=== PATIENT | female | born 1960 | race Caucasian/White ===

== ENCOUNTER 2020-01-23 12:10 | Emergency (ER) | payer OTHER, SELFPAY ==
[2020-01-23 12:20] VITALS: BP 104/69; PULSE 80; RESP 18; TEMP 36.7; O2SAT 96; BMI 37.5
[2020-01-23 12:51] LABS: Microscopic, Urine URINE MICROSCOPIC (MICROSCOPIC)
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
[2020-01-23 12:57] LABS: Basophils # 0.1 K/mm3 (0-0.2); Basophils % 0.9 % (0.1-2.0); Eosinophils # 0.2 K/mm3 (0.0-0.4); Eosinophils % 2.5 % (0.1-12.0); Hemoglobin 10.3 g/dL (12.2-16.2); Lymphocytes # 1.6 K/mm3 (0.7-4.5); Lymphocytes % 17.5 % (10-50); Mean Corpuscular HGB Conc 32.1 g/dL (31.8-35.4); Mean Corpuscular Hemoglobin 27.3 pg (27.0-31.2); Mean Corpuscular Volume 85.2 fl (81-99); Mean Platelet Volume 8.3 fl (7.4-10.4); Monocytes # 0.3 K/mm3 (0.1-1.0); Monocytes % 3.3 % (1.7-9.3); Neutrophils # 7.1 K/mm3 (1.8-7.8); Neutrophils % 75.9 % (37.0-80.0); Platelet Count 254 K/mm3 (142-424); Red Blood Count 3.76 M/mm3 (4.20-5.40); Red Cell Distribution Width 14.9 % (11.5-17.5); White Blood Count 9.3 K/mm3 (4.8-10.8)
[2020-01-23 12:57] LABS: Appearance,Urine SL CLOUDY (Clear); Blood, Urine Negative (Negative); Color,Urine DK YELLOW (Yellow); Glucose,Urine (UA) Negative (Negative); Ketones,Urine TRACE (Negative); Leukocyte Esterase,Urine TRACE (Negative); Nitrate,Urine Negative (Negative); Protein,Urine TRACE (Negative); Specific Gravity, Urine 1.025 (1.005-1.030)
[2020-01-23 13:00] LABS: Bilirubin,Urine Negative (Negative)
[2020-01-23 13:06] LABS: Chloride 99 mmol/L (98-107)
[2020-01-23 13:07] LABS: Potassium 4.2 mmoL/L (3.5-5.1); Sodium 138 mmol/L (136-145)
[2020-01-23 13:09] LABS: Alanine Aminotransferase 133 U/L (12-78); Aspartate Amino Transferase 111 U/L (14-36); Blood Urea Nitrogen 16 mg/dl (7-17); Creatinine Clearance Estimated 130 mL/min (50-200); Estimated Glomerular Filt Rate 86 ml/min (>60); GFR (African American) 104 ML/MIN (>60)
[2020-01-23 13:10] LABS: Albumin Level 4.2 g/dl (3.5-5.0); Albumin/Globulin Ratio 1.2 (1.1-1.8); Alkaline Phosphatase 163 U/L (38-126); Anion Gap 11.2 mEq/L (5-15); Bilirubin,Total 1.1 mg/dl (0.2-1.3); Calcium 8.9 mg/dl (8.4-10.2); Carbon Dioxide 32 mmol/L (22.0-30.0); Globulin 3.6 g/dL (1.3-3.2); Glucose 196 mg/dl (74-100); Total Protein,Serum 7.8 g/dl (6.3-8.2)
[2020-01-23 13:11] LABS: Lactic Acid 1.3 mmol/L (0.7-2.1)
[2020-01-23 13:22] LABS: WBC,Urine Occasional #/hpf (0-3)
[2020-01-23 13:23] LABS: Bacteria,Urine Trace /lpf; RBC,Urine Occasional #/hpf (0-3); Squamous Epithelial Cell,Urine Occasional #/hpf (0-5)
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
--- NOTE | 2020-01-23 15:56 | PC.NURSE ---
called [facility] for Dr crowell for dr tello
--- NOTE | 2020-01-23 16:00 | PC.NURSE ---
SPOKE WITH DR SIBLEY, WHOM IS [employer] OFFICER FOR DR POWELL, WHOM IS ON FOR SERVICE, CONCERNING POSSIBILITY OF ADMISSION. DR SIBLEY ADVISES THAT PT DOESN'T MEET CRITERIA FOR ADMISSION AT THIS TIME.
[2020-01-23 16:14] VITALS: BP 129/87; PULSE 78; RESP 18; TEMP 36.9; O2SAT 98
== END 2020-01-23 16:18 | disposition home or self-care (01) ==
PROVIDERS: Emergency Provider Family Medicine; PCP Family Medicine
DX: J18.9 Pneumonia, unspecified organism (principal); S36.114D Minor laceration of liver, subsequent encounter; S06.5X9D Traumatic subdural hemorrhage with loss of consciousness of unspecified duration, subsequent encounter; S22.49XG Multiple fractures of ribs, unspecified side, subsequent encounter for fracture with delayed healing; V43.52XD Car driver injured in collision with other type car in traffic accident, subsequent encounter; E10.65 Type 1 diabetes mellitus with hyperglycemia; Z79.84 Long term (current) use of oral hypoglycemic drugs; Z88.2 Allergy status to sulfonamides; Z88.8 Allergy status to other drugs, medicaments and biological substances
CPT/HCPCS: 70450; 71250; 74176; 80053; 81001; 83605; 85025; 87040; 99282; 99284

== ENCOUNTER 2020-02-25 10:25 | Emergency (ER) | payer MEDICARE, MEDICAID, SELFPAY ==
[2020-02-25 10:27] VITALS: BP 138/96; PULSE 70; RESP 18; TEMP 36.7; O2SAT 100; BMI 37.3
[2020-02-25 10:57] LABS: Basophils # 0.2 K/mm3 (0-0.2); Basophils % 2.3 % (0.1-2.0); Eosinophils # 0.2 K/mm3 (0.0-0.4); Hematocrit 41.5 % (37.0-47.0); Hemoglobin 12.8 g/dL (12.2-16.2); Lymphocytes # 1.6 K/mm3 (0.7-4.5); Lymphocytes % 19.5 % (10-50); Mean Corpuscular HGB Conc 30.7 g/dL (31.8-35.4); Mean Corpuscular Hemoglobin 27.6 pg (27.0-31.2); Mean Corpuscular Volume 89.8 fl (81-99); Mean Platelet Volume 8.4 fl (7.4-10.4); Monocytes # 0.4 K/mm3 (0.1-1.0); Monocytes % 5.3 % (1.7-9.3); Neutrophils # 5.9 K/mm3 (1.8-7.8); Neutrophils % 70.9 % (37.0-80.0); Platelet Count 192 K/mm3 (142-424); Red Blood Count 4.62 M/mm3 (4.20-5.40); Red Cell Distribution Width 15.4 % (11.5-17.5); White Blood Count 8.4 K/mm3 (4.8-10.8)
--- NOTE | 2020-02-25 11:02 | CT_ITS ---
PROCEDURE: CT ABDOMEN PELVIS WO CON CLINICAL INDICATION: pain The epigastric pain COMPARISON: CT ABDOMEN PELVIS WO CON from 01/23/2020 CT CHEST WO CON from 02/25/2020 TECHNIQUE: Axial images obtained with sagittal and coronal reformats. All CT scans at the facility use one or more dose reduction, viz: automated exposure control, ma/kV adjustment per patient size (including targeted exams where dose is matched to indication, i.e. head), or iterative reconstruction technique. FINDINGS: LOWER THORAX: There are coronary artery calcifications present ABDOMEN & PELVIS: Prior cholecystectomy. Prior gastric sleeve surgery. Borderline splenomegaly at 14 cm. There is a right adrenal nodule measuring 2.7 cm. This is slightly smaller previously measuring 3.2 cm. This is an indeterminate nodule as the internal density is 27 Hounsfield units greater than what 1 would expect for an adenoma. There are nonobstructing bilateral renal calculi measuring up to 4 mm in the lower pole on the right and 5 mm in the lower pole on the left. There is some mild stranding of the perinephric renal fat on both sides which is nonspecific. No intestinal obstruction or free air. No evidence of appendicitis or diverticulitis. There are post hysterectomy changes. There is some minimal fluid in the pelvis but has markedly decreased in volume compared to the previous exam. Old right 1st through 4th transverse process fractures are noted. There is some exostosis along the right ilium posteriorly. No acute bony anomaly. IMPRESSION: 1. Previously noted right adrenal nodule is slightly smaller and less dense compared to the previous exam and could have been related to an area of adrenal hemorrhage. 2. Nonobstructing bilateral nephrolithiasis. 3. Near complete resolution of the hemoperitoneum. 4. Old right 1st through 4th transverse process fractures of the L-spine Dictated by: Frankie Arriaga MD 02/25/2020 12:25 Electronically signed by Frankie Arriaga MD in [place] 02/25/2020 12:25
[2020-02-25 11:03] LABS: Alanine Aminotransferase 23 U/L (12-78); Albumin Level 4.6 g/dl (3.5-5.0); Albumin/Globulin Ratio 1.2 (1.1-1.8); Alkaline Phosphatase 118 U/L (38-126); Anion Gap 11.2 mEq/L (5-15); Aspartate Amino Transferase 29 U/L (14-36); Bilirubin,Total 0.3 mg/dl (0.2-1.3); Blood Urea Nitrogen 21 mg/dl (7-17); Calcium 9.7 mg/dl (8.4-10.2); Carbon Dioxide 27 mmol/L (22.0-30.0); Chloride 105 mmol/L (98-107); Creatinine Clearance Estimated 151 mL/min (50-200); Estimated Glomerular Filt Rate 103 ml/min (>60); GFR (African American) 125 ML/MIN (>60); Globulin 3.7 g/dL (1.3-3.2); Glucose 127 mg/dl (74-100); Potassium 4.2 mmoL/L (3.5-5.1); Sodium 139 mmol/L (136-145); Total Protein,Serum 8.3 g/dl (6.3-8.2)
--- NOTE | 2020-02-25 11:05 | CT_ITS ---
PROCEDURE: CT CHEST WO CON CLINICAL INDICATION: pain Chest pain COMPARISON: CT CHEST WO CON from 01/23/2020 CT ABDOMEN PELVIS WO CON from 02/25/2020 TECHNIQUE: Axial images obtained with sagittal and coronal reformats. All CT scans at the facility use one or more dose reduction, viz: automated exposure control, ma/kV adjustment per patient size (including targeted exams where dose is matched to indication, i.e. head), or iterative reconstruction technique. FINDINGS: HEART AND MEDIASTINAL STRUCTURES: Scattered small nodes are present in the mediastinum. No mediastinal or hilar mass. Coronary artery calcifications are present. LUNGS AND PLEURAL SPACES: Lungs are clear. Previously noted area of sub of consolidation and right effusion have resolved BONY STRUCTURES: No acute bony abnormalities apparent. UPPER ABDOMEN: Unremarkable. ADDITIONAL FINDINGS: No other significant abnormalities. IMPRESSION: No acute finding Dictated by: Frankie Arriaga MD 02/25/2020 12:16 Electronically signed by Frankie Arriaga MD in [place] 02/25/2020 12:16
[2020-02-25 11:11] LABS: Appearance,Urine CLEAR (Clear); Bilirubin,Urine Negative (Negative); Blood, Urine Negative (Negative); Color,Urine YELLOW (Yellow); Glucose,Urine (UA) Negative (Negative); Ketones,Urine Negative (Negative); Leukocyte Esterase,Urine 1+ (Negative); Microscopic, Urine URINE MICROSCOPIC (MICROSCOPIC); Nitrate,Urine Negative (Negative); Protein,Urine Negative (Negative); Urobilinogen,Urine 0.2 EU/dl (0.2)
--- NOTE | 2020-02-25 11:15 | ECG_ITS ---
APPROVED REPORT Exam: Resting ECG HR:64 bpm ECG Measurements Heart Rate 64 AXES IL 130 P 41 QRSd 76 QRS 2 QT 422 T 27 QTc 435 <Conclusion> Normal sinus rhythm Normal ECG Electronically signed by : Kyle Bay, 02/26/2020 21:40:57
[2020-02-25 11:19] LABS: Troponin I < 0.01 ng/ml (0.00-0.034)
[2020-02-25 11:25] LABS: Bacteria,Urine 1+ /lpf; Hyaline Casts,Urine Occasional #/lpf (0); Mucus,Urine Trace /lpf
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
[2020-02-25 13:29] VITALS: BP 144/85; PULSE 87; RESP 16; TEMP 36.6; O2SAT 98
== END 2020-02-25 14:25 | disposition home or self-care (01) ==
PROVIDERS: Emergency Provider Family Medicine; PCP Family Medicine
DX: N39.0 Urinary tract infection, site not specified (principal)
CPT/HCPCS: 71250; 74176; 80053; 81001; 84484; 85025; 87086; 93005; 96365; 96367; 96375; 99283; J2405

== ENCOUNTER 2020-11-24 20:44 | Emergency (ER) | payer MEDICARE, MEDICAID, SELFPAY ==
--- NOTE | 2020-11-24 20:46 | XR_ITS ---
PROCEDURE: Three nonweightbearing x-ray views left foot and for nonweightbearing views left ankle CLINICAL INDICATION: FALL COMPARISON: None FINDINGS: There is an oblique fracture of the distal fibula. Fracture line extends to the distal tibial-fibular articulation which remains well approximated. Ankle mortise is intact. There is no additional fracture. Small ossicles adjacent to the medial malleolus are well corticated are pre-existing and secondary to either degenerative change, congenital, or old avulsion fractures, however there is significant medial and lateral soft tissue swelling raising concern for coexisting soft tissue injury. And a normal bony ossicle is noted medial to the navicular bone. If a pseudoarticulation is present, this can be a source of pain. IMPRESSION: Oblique distal fibular fracture. Dictated by: Yandy Washington MD 11/25/2020 08:48 Yandy Washington MD in [place] 11/25/2020 08:48
--- NOTE | 2020-11-24 20:48 | XR_ITS ---
PROCEDURE: XR TIBIA FIBULA LT 2V CLINICAL INDICATION: FALL Status post fall on ice, lower left pain COMPARISON: No exams were available for comparison FINDINGS: There is an oblique fracture of the distal fibula. Irregularity over the medial malleolus may represent chronic degenerative change however ankle x-rays are recommended to exclude a coexisting medial malleolar fracture there is a small knee joint effusion which could be chronic.. No obvious ankle mortise or distal tibiofibular joint space disruption. Ankle x-rays could confirm. IMPRESSION: Oblique distal fibular fracture. Medial malleolar irregularity, probably degenerative change, however ankle x-rays could clarify. Dictated by: Yandy Washington MD 11/25/2020 08:39 Yandy Washington MD in [place] 11/25/2020 08:39
[2020-11-24 20:55] VITALS: BP 155/78; PULSE 67; RESP 20; TEMP 36.7; O2SAT 97; BMI 37.1
--- NOTE | 2020-11-24 21:20 | HMH.EDUTC ---
[facility] [place]ression: Closed fracture of right distal fibula Qualifiers: Encounter type: initial encounter Fracture morphology: unspecified fracture morphology Qualified Code(s): S82.831A - Other fracture of upper and lower end of right fibula, initial encounter for closed fracture Disposition: Home, Self-Care Condition on Discharge: Good Instructions: Fibula Shaft Fracture Additional Instructions: Rest the extremity, apply ice for 15 minutes as tolerated three or four times per day, Wear the splint, Elevate the extremity as tolerated while you are resting. Take ibuprofen for pain. I sent in a prescription to your pharmacy. Follow up with Dr. Pride (orthopedics). You need to call his office in the morning to make an appointment. Follow up with your regular doctor. GO TO THE ER FOR ANY WORSENING SYMPTOMS Prescriptions: Ibuprofen [Ibuprofen 800mg Tablet] 800 mg PO Q8HP PRN #30 tab PRN Reason: Moderate Pain Transmission Status: Received by [facility] Referrals: Yecenia Ruiz [Primary Care Provider] - Pedro Luis Pride MD [Staff Physician] - Time of Disposition: 21:57 Medical Decision Making - Medical Records Medical records reviewed: No: I reviewed the patient's medical records. - Kristofer Inquiry Pt receiving controlled substance: No Vital Signs: 11/24/20 20:55 11/24/20 21:52 Temperature 98.1 F 98.1 F Temperature Source Temporal Artery Scan Pulse Rate 67 Pulse Rate [Right Brachial] 67 Respiratory Rate 20 20 Blood Pressure 155/78 H Blood Pressure [Right Arm] 155/78 H Blood Pressure Mean [Right Arm] 103 Blood Pressure Source [Right Arm] Automatic Cuff Blood Pressure Position [Right Arm] Sitting 02 Sat by Pulse Oximetry 97 Oxygen Delivery Method Room Air - Radiology Data #1 Image(s): Tib/Fib Image Reviewed: Yes I reviewed the patient's radiology image, Yes I have reviewed radiologist's interpretation Preliminary Findings: Abnormal PROCEDURE: XR TIBIA FIBULA LT 2V CLINICAL INDICATION: FALL Status post fall on ice, lower left pain COMPARISON: No exams were available for comparison FINDINGS: There is an oblique fracture of the distal fibula. Irregularity over the medial malleolus may represent chronic degenerative change however ankle x-rays are recommended to exclude a coexisting medial malleolar fracture there is a small knee joint effusion which could be chronic.. No obvious ankle mortise or distal tibiofibular joint space disruption. Ankle x-rays could confirm. IMPRESSION: Oblique distal fibular fracture. Medial malleolar irregularity, probably degenerative change, however ankle x-rays could clarify. Dictated by: Yandy Washington MD 11/25/2020 08:39 Yandy Washington MD in [place] 11/25/2020 08:39 #2 Image(s): Ankle Image Reviewed: Yes I reviewed the patient's radiology image, Yes I have reviewed radiologist's interpretation Preliminary Findings: Abnormal PROCEDURE: Three nonweightbearing x-ray views left foot and for nonweightbearing views left ankle CLINICAL INDICATION: FALL COMPARISON: None FINDINGS: There is an oblique fracture of the distal fibula. Fracture line extends to the distal tibial-fibular articulation which remains well approximated. Ankle mortise is intact. There is no additional fracture. Small ossicles adjacent to the medial malleolus are well corticated are pre-existing and secondary to either degenerative change, congenital, or old avulsion fractures, however there is significant medial and lateral soft tissue swelling raising concern for coexisting soft tissue injury. And a normal bony ossicle is noted medial to the navicular bone. If a pseudoarticulation is present, this can be a source of pain. IMPRESSION: Oblique distal fibular fracture. Dictated by: Yandy Washington MD 11/25/2020 08:48 Yandy Washington MD in [place] 11/25/2020 08:48 #3 Image(s): Foot/Toes Image Rev
[2020-11-24 21:52] VITALS: BP 155/78; PULSE 67; RESP 20; TEMP 36.7; O2SAT 97
== END 2020-11-24 22:06 | disposition home or self-care (01) ==
PROVIDERS: Emergency Provider Nurse Practitioner Family; PCP Family Medicine
DX: S82.832A Other fracture of upper and lower end of left fibula, initial encounter for closed fracture (principal); W00.0XXA Fall on same level due to ice and snow, initial encounter; Y92.014 Private driveway to single-family (private) house as the place of occurrence of the external cause; E11.9 Type 2 diabetes mellitus without complications; Z88.5 Allergy status to narcotic agent; Z88.8 Allergy status to other drugs, medicaments and biological substances
CPT/HCPCS: 29515; G0463; 73590; 73610; 73630; 99203

== ENCOUNTER → 2020-12-07 14:44 | Outpatient (CLI) | payer MEDICARE, MEDICAID, SELFPAY ==
--- NOTE | 2020-12-07 14:54 | XR_ITS ---
PROCEDURE: XR ANKLE LT MIN 3V CLINICAL INDICATION: distal fibula fracture follow up Follow-up fracture COMPARISON: CR XR ANKLE LT MIN 3V from 11/24/2020 FINDINGS: Interval cast placement stabilizing the distal fibular fracture which is in good alignment. Hypertrophic changes of the medial malleolus once again noted. IMPRESSION: Good alignment status post cast placement stabilizing distal fibular fracture Dictated by: Frankie Arriaga MD 12/07/2020 15:59 Frankie Arriaga MD in [place] 12/07/2020 15:59
== END ==
PROVIDERS: PCP Family Medicine; Visit Provider Orthopaedic Surgery
DX: S82.832A Other fracture of upper and lower end of left fibula, initial encounter for closed fracture (principal)
CPT/HCPCS: 73610

== ENCOUNTER → 2020-12-15 14:36 | Outpatient (CLI) | payer MEDICARE, MEDICAID, SELFPAY ==
--- NOTE | 2020-12-15 14:39 | XR_ITS ---
PROCEDURE: XR ANKLE LT MIN 3V CLINICAL INDICATION: left ankle fracture; new cast applied COMPARISON: CR XR ANKLE LT MIN 3V from 11/24/2020 CR XR ANKLE LT MIN 3V from 12/07/2020 FINDINGS: There is a nondisplaced oblique fracture of the distal fibula with good alignment of the fracture fragments. The cast is in place. IMPRESSION: Good alignment distal fibular fracture Dictated by: Frankie Arriaga MD 12/15/2020 16:23 Frankie Arriaga MD in [place] 12/15/2020 16:23
== END ==
PROVIDERS: PCP Family Medicine; Visit Provider Orthopaedic Surgery
DX: S82.62XA Displaced fracture of lateral malleolus of left fibula, initial encounter for closed fracture (principal)
CPT/HCPCS: 73610

== ENCOUNTER → 2021-01-04 13:34 | Outpatient (CLI) | payer MEDICARE, MEDICAID, SELFPAY ==
--- NOTE | 2021-01-04 13:57 | XR_ITS ---
PROCEDURE: XR ANKLE LT MIN 3V CLINICAL INDICATION: LT ankle fx/ OUT OF CAST; AFTER REMOVAL COMPARISON: CR XR ANKLE LT MIN 3V from 11/24/2020 CR XR ANKLE LT MIN 3V from 12/07/2020 CR XR ANKLE LT MIN 3V from 12/15/2020 FINDINGS: Oblique fracture of the distal fibula is again noted, demonstrates no significant interval change. Interval removal of the plastic cast is noted. There is minor adjacent callus formation. The ankle mortise is intact and the lateral clear space is preserved. Calcaneal spur and Achilles tendon enthesopathy is noted. No significant soft tissue abnormality. IMPRESSION: Oblique fracture of the distal fibular demonstrates minor adjacent callus formation consistent with healing fracture. Dictated by: Anna Pride 01/04/2021 16:16 Anna Pride in [place] 01/04/2021 16:16
== END ==
PROVIDERS: PCP Family Medicine; Visit Provider Orthopaedic Surgery
DX: S82.62XA Displaced fracture of lateral malleolus of left fibula, initial encounter for closed fracture (principal)
CPT/HCPCS: 73610

== ENCOUNTER 2021-01-04 15:28 | Outpatient (RCR) | payer MEDICARE, MEDICAID, SELFPAY | END 2021-01-04 16:10 | disposition home or self-care (01) | LOC: PT 15:28 | PROVIDERS: Visit Provider Orthopaedic Surgery | DX: S82.62XA Displaced fracture of lateral malleolus of left fibula, initial encounter for closed fracture (principal) | CPT/HCPCS: 97760 ==

== ENCOUNTER → 2021-02-15 14:05 | Outpatient (CLI) | payer MEDICARE, MEDICAID, SELFPAY ==
--- NOTE | 2021-02-15 14:08 | XR_ITS ---
PROCEDURE: XR ANKLE LT MIN 3V CLINICAL INDICATION: lt ankle fracture COMPARISON: CR XR ANKLE LT MIN 3V from 11/24/2020 CR XR ANKLE LT MIN 3V from 12/07/2020 CR XR ANKLE LT MIN 3V from 12/15/2020 CR XR ANKLE LT MIN 3V from 01/04/2021 FINDINGS: Healing oblique distal fibular metadiaphyseal fracture is again noted with adjacent callus formation. The ankle mortise is congruent and the lateral clear space is preserved. Calcaneal spurring is noted at the Achilles tendon insertion and the plantar fascia origin. No significant soft tissue abnormality. IMPRESSION: Healing distal fibular fracture. Dictated by: Anna Pride 02/15/2021 14:45 Anna Pride in [place] 02/15/2021 14:45
== END ==
PROVIDERS: PCP Family Medicine; Visit Provider Orthopaedic Surgery
DX: S82.62XA Displaced fracture of lateral malleolus of left fibula, initial encounter for closed fracture (principal)
CPT/HCPCS: 73610

== ENCOUNTER 2022-11-14 13:23 | Emergency (ER) | payer MEDICARE, MEDICAID, SELFPAY ==
[2022-11-14] VITALS (10 sets, daily range): BP systolic 136–177; BP diastolic 70–106; PULSE 64–76; RESP 14–18; TEMP 36.7–36.8; O2SAT 96–99; BMI 41.1
--- NOTE | 2022-11-14 13:23 | ECG_ITS ---
APPROVED REPORT Exam: Resting ECG HR:68 bpm ECG Measurements Heart Rate 68 AXES SC 106 P 60 QRSd 82 QRS 5 QT 382 T 79 QTc 398 Conclusion SINUS RHYTHM WITH SHORT SC INTERVAL SEPTAL MYOCARDIAL INFARCTION , PROBABLY OLD [40+ ms Q WAVE IN V1/V2] ABNORMAL ECG UNCONFIRMED REPORT Electronically signed by : Kyle Bay MD 11/14/2022 20:17:48
--- NOTE | 2022-11-14 13:42 | XR_ITS ---
FINAL REPORT CLINICAL HISTORY: chest pain FINDINGS: The heart size is normal. The mediastinum is within normal limits. There is no acute cardiopulmonary process. There is no pleural effusion. There is no pneumothorax. The bony thorax is intact. IMPRESSION: No acute cardiopulmonary process. Reviewed, Interpreted and Dictated by Jt Cole MD Transcribed by Bandar Alatorre Authenticated and [facility]
--- NOTE | 2022-11-14 13:43 | CT_ITS ---
FINAL REPORT TECHNIQUE: Axial CT images were performed through the head. Coronal reformatted images were submitted. This study was performed with techniques to keep radiation doses as low as reasonably achievable (ALARA). Individualized dose reduction techniques using automated exposure control or adjustment of mA and/or kV according to the patient's size were employed. CLINICAL HISTORY: left sided weakness. POSS STROKE FINDINGS: There are decreased attenuation foci in the left basal ganglia probably due to old lacunar infarct. The ventricles are normal in size. There is no evidence of hemorrhage. There is no mass or edema identified. There is no abnormal extra-axial fluid seen. There are air-fluid levels in the maxillary sinuses. There is complete opacification of the frontal sinus. There is extensive mucoperiosteal thickening in the ethmoid air cells and sphenoid sinus. IMPRESSION: No acute intracranial process. Chronic lacunar infarcts in the basal ganglia. Acute and chronic pansinusitis. Reviewed, Interpreted and Dictated by Jt Cole MD Transcribed by Bandar Alatorre Authenticated and [facility]
--- NOTE | 2022-11-14 13:44 | PC.NURSE ---
Marielos B, RN spoke with Jenny in radiology regarding stroke protocol
--- NOTE | 2022-11-14 13:46 | PC.NURSE ---
pt to ct for stroke protocol
[2022-11-14 13:58] LABS: Chloride 105 mmol/L (98-107); Sodium 142 mmol/L (136-145)
[2022-11-14 13:59] LABS: Potassium 4.6 mmoL/L (3.5-5.1)
--- NOTE | 2022-11-14 13:59 | PC.NURSE ---
pt returned from radiology
[2022-11-14 14:02] LABS: Anion Gap 11.6 mEq/L (5-15); Blood Urea Nitrogen 18 mg/dl (7-17); Calcium 8.6 mg/dl (8.4-10.2); Carbon Dioxide 30 mmol/L (22.0-30.0); Creatinine Clearance Estimated 88 mL/min (50-200); Estimated Glomerular Filt Rate 51 ml/min (>60); GFR (African American) 61 ML/MIN (>60); Glucose 130 mg/dl (74-100)
[2022-11-14 14:11] LABS: Basophils # 0.1 K/mm3 (0-0.2); Basophils % 1.2 % (0.1-2.0); Eosinophils # 0.1 K/mm3 (0.0-0.4); Hematocrit 46.1 % (37.0-47.0); Hemoglobin 14.4 g/dL (12.2-16.2); Lymphocytes # 3.1 K/mm3 (0.7-4.5); Lymphocytes % 38.7 % (10-50); Mean Corpuscular HGB Conc 31.2 g/dL (31.8-35.4); Mean Corpuscular Hemoglobin 28.2 pg (27.0-31.2); Mean Corpuscular Volume 90.2 fl (81-99); Mean Platelet Volume 8.6 fl (7.4-10.4); Monocytes # 0.3 K/mm3 (0.1-1.0); Monocytes % 4.3 % (1.7-9.3); Neutrophils # 4.3 K/mm3 (1.8-7.8); Neutrophils % 54.9 % (37.0-80.0); Platelet Count 255 K/mm3 (142-424); Red Blood Count 5.11 M/mm3 (4.20-5.40); Red Cell Distribution Width 15.1 % (11.5-17.5); White Blood Count 7.9 K/mm3 (4.8-10.8)
--- NOTE | 2022-11-14 14:34 | PC.NURSE ---
pt ambulatory to restroom with assistance from daughter, no complications
[2022-11-14 14:42] LABS: Microscopic, Urine URINE MICROSCOPIC (MICROSCOPIC)
[2022-11-14 14:43] LABS: Troponin I < 0.01 ng/ml (0.00-0.034)
[2022-11-14 14:53] LABS: Appearance,Urine CLEAR (Clear); Bilirubin,Urine Negative (Negative); Blood, Urine Negative (Negative); Color,Urine YELLOW (Yellow); Glucose,Urine (UA) Negative (Negative); Ketones,Urine Negative (Negative); Leukocyte Esterase,Urine Negative (Negative); Nitrate,Urine Negative (Negative); Protein,Urine Negative (Negative); Specific Gravity, Urine 1.015 (1.005-1.030); Urobilinogen,Urine 0.2 EU/dl (0.2)
[2022-11-14 15:16] LABS: Squamous Epithelial Cell,Urine Occasional #/hpf (0-5); WBC,Urine Occasional #/hpf (0-3)
--- NOTE | 2022-11-14 16:04 | HMH.EDGENADL ---
Discharge Plan Disposition Patient Disposition: Home, Self-Care Condition: Good Prescriptions Prescriptions: New Paxlovid (EUA) 300 mg (150 mg x 2)-100 mg tablets,dose pack See Rx Instructions .Route .COMPLEX Qty: 30 0RF Rx Instructions: take TWO 150 mg tablets of nirmatrelvir with ONE 100 mg tablet of ritonavir twice daily for 5 days No Action aspirin 81 mg tablet,delayed release (DR/EC) 81 mg PO DAILY naproxen sodium [Aleve] 220 mg capsule 220 mg PO BID PRN citalopram 20 mg tablet 20 mg PO DAILY meloxicam 15 mg tablet 15 mg PO DAILY esomeprazole magnesium [Nexium] 40 mg capsule,delayed release(DR/EC) 40 mg PO DAILY epinephrine [EpiPen] 0.3 mg/0.3 mL auto-injector 0.3 mg IM Q5-15M PRN Rx Instructions: do not exceed 3 doses per episode albuterol sulfate [ProAir HFA] 90 mcg/actuation HFA aerosol inhaler 1 inh INHALATION QID montelukast 10 mg tablet 10 mg PO DAILY losartan 50 mg tablet 50 mg PO DAILY isosorbide mononitrate 30 mg tablet extended release 24 hr 30 mg PO DAILY ibuprofen 800 MG tablet 800 mg PO Q8HP PRN (Reason: Moderate Pain) Qty: 30 0RF Referrals Follow up/Referrals: Provider,Referral, [Primary Care Provider] - See instructions Activity Restrictions/Add. Instructions Additional Instructions/Restrictions: Paxlovid as prescribed for COVID. Take aspirin 81 mg daily. Follow-up with your batter depositor, Dr. Hilton. Call his office tomorrow and inform them that you have tested positive for COVID. You may need to reschedule your appointment. Follow-up with your primary care provider, call for appointment. Additional instructions for CHEST PAIN: See your physician as soon as possible for further evaluation. Return immediately if worsening chest pain, vomiting, shortness of breath, fever, coughing of blood. Return emergency department if symptoms worsen. Clinical Impressions Clinical Impression: Left sided numbness, Atypical chest pain, COVID-19 virus infection, Sinusitis Instructions Patient Instructions: DI for Sinusitis, DI for Atypical Chest Pain, DI for COVID-19 (Suspected or Confirmed ) Discharge ED Provider: [facility] HPI General Chief complaint: Chest Pain Stated complaint: CP Time Seen by Provider: 11/14/22 16:30 Mode of Arrival: Ambulatory Source of Information: Patient, Relative and Medical Record Limitations: No Limitations Description of Symptoms (Recalled from ER Triage Doc. by RN): c/o back pain that goes to her chest when she takes a deep breath. STates she has some left sided face drawing with left arm numbness and left leg weakness, symptoms started 2 hours prior to arrival with delayed speech but that has improved now per the daughter. Daughter states that she was seen at [place] [facility] yesterday for these same symptoms and a CT head, blood work and other test were completed, test were negative and pt symptoms improved before dc and they were told to fu with her batter depositor. Yesterday pt was unable to walk into the ER but is able to today. History of Present Illness HPI narrative: Patient states that her chest has been hurting in the back for 2 weeks. She says her blood pressure has been going high and when it does so she gets episodes of numbness of her left arm and leg with tremor. Symptoms last up to about an hour. She says that she went to the emergency department in [place] yesterday because of that. She had a work-up including a CT scan of her head and a cardiac work-up. She says everything came back negative. She says the symptoms persist today and her blood pressure was markedly elevated today, so she called her batter depositor, Dr. Hilton, and he advised her to go to the emergency department, so her daughter brought her here today. She says she also saw her sugar doctor today as well. Patient says that she is on aspirin daily, but has not taken it today. She say
--- NOTE | 2022-11-14 16:10 | PC.NURSE ---
rounded on pt, no needs at this time
--- NOTE | 2022-11-14 16:26 | PC.NURSE ---
HIRO MONREAL at for pt luisitoal
--- NOTE | 2022-11-14 16:33 | CT_ITS ---
PROCEDURE INFORMATION: Exam: CTA Head With Contrast, Arteriography Exam date and time: 11/14/2022 5:00 PM Age: 62 years old Clinical indication: Stroke-like symptoms; Other: Left sided numbness numbness/paresthesia; Additional info: Intermittent L side numbness TECHNIQUE: Imaging protocol: Computed tomographic angiography of the head with contrast. Exam focused on the arteries. 3D rendering (Not supervised by radiologist): MIP and/or 3D reconstructed images were created by the technologist. Radiation optimization: All CT scans at this facility use at least one of these dose optimization techniques: automated exposure control; mA and/or kV adjustment per patient size (includes targeted exams where dose is matched to clinical indication); or iterative reconstruction. Contrast material: ISOVUE 370; Contrast volume: 100 ml; Contrast route: INTRAVENOUS (IV); Other protocol: This patient has received 2 known CTs and 0 known cardiac nuclear medicine studies in the 12 months prior to the current study. COMPARISON: CT HEAD/BRAIN WO CON 11/14/2022 1:52 PM FINDINGS: ANTERIOR CIRCULATION: Right internal carotid artery: Intracranial segment is patent with no significant stenosis. No aneurysm. Mild atherosclerosis of the right internal carotid artery. Right middle cerebral artery: No occlusion or significant stenosis. No aneurysm. Right anterior cerebral artery: No occlusion or significant stenosis. No aneurysm. Left internal carotid artery: Atherosclerosis of the left internal carotid artery, with mild stenosis. No visualized aneurysm. Left middle cerebral artery: Stenosis is suggested of an M3 segment of the left middle cerebral artery anteriorly. This can be contributed by artifact. No occlusion. No visualized aneurysm. Left anterior cerebral artery: No occlusion or significant stenosis. No aneurysm. POSTERIOR CIRCULATION: Right vertebral artery: The right vertebral artery is asymmetrically smaller in caliber/hypoplastic, without intracranial occlusion. Left vertebral artery: A dominant left vertebral artery is identified. No significant stenosis or occlusion of the left vertebral artery. Basilar artery: No occlusion or significant stenosis. No aneurysm. Right posterior cerebral artery: Mild stenosis of a P2 segment of the right BREASTER distally. No visualized aneurysm. Left posterior cerebral artery: No occlusion or significant stenosis. No aneurysm. Brain: A nonacute lacunar infarct is seen within the left basal ganglia. Refer to the head CT report from the same day. Cerebral ventricles: Mild ventriculomegaly. Paranasal sinuses: Paranasal sinus disease is visualized. Air-fluid levels are identified within the bilateral maxillary and sphenoid sinuses, with mucosal thickening. Effusions within ethmoid air cells and frontal sinuses bilaterally. Bones/joints: No acute fracture. Soft tissues: Unremarkable. IMPRESSION: 1. No large vessel arterial occlusion on this CTA head. 2. A dominant left vertebral artery is identified. 3. Mild stenosis of a P2 segment of the right BREASTER distally. 4. Atherosclerosis of the left internal carotid artery, with mild stenosis. 5. Mild ventriculomegaly. 6. Paranasal sinus disease. 7. Additional findings described above.
--- NOTE | 2022-11-14 16:33 | CT_ITS ---
PROCEDURE INFORMATION: Exam: CTA Neck With Contrast Exam date and time: 11/14/2022 5:00 PM Age: 62 years old Clinical indication: Stroke-like symptoms; Other: Left sided numbness numbness/paresthesia; Additional info: Intermittent L side numbness TECHNIQUE: Imaging protocol: Computed tomographic angiography of the neck with contrast. 3D rendering (Not supervised by radiologist): MIP and/or 3D reconstructed images were created by the technologist. Radiation optimization: All CT scans at this facility use at least one of these dose optimization techniques: automated exposure control; mA and/or kV adjustment per patient size (includes targeted exams where dose is matched to clinical indication); or iterative reconstruction. Contrast material: ISOVUE 370; Contrast volume: 100 ml; Contrast route: INTRAVENOUS (IV); Other protocol: This patient has received 2 known CTs and 0 known cardiac nuclear medicine studies in the 12 months prior to the current study. COMPARISON: CT HEAD/BRAIN WO CON 11/14/2022 1:52 PM FINDINGS: Right common carotid artery: No significant stenosis. No dissection or occlusion. Right internal carotid artery: Mild atherosclerosis of the proximal right internal carotid artery, without stenosis using NASCET criteria. Increased tortuosity of the vessel. Right external carotid artery: Mild stenosis of the proximal right external carotid artery. Left common carotid artery: Artifact limits evaluation of the proximal left common carotid artery, without occlusion. No significant stenosis or occlusion of the remaining left common carotid artery. Mild atherosclerosis of the distal left common carotid artery. Left internal carotid artery: Less than 50% stenoses of the proximal left internal carotid artery. Atherosclerosis. Increased tortuosity of the left internal carotid artery. Left external carotid artery: No occlusion or significant stenosis. Right vertebral artery: The V1 and proximal V2 segments of the right vertebral artery are small in caliber, without occlusion. There is an accessory right vertebral artery, which is anterior to the lower cervical spine and is patent. These vessels fuse at the level of the V2 segment. No significant stenosis or occlusion of the right vertebral artery more distally. Left vertebral artery: Venous enhancement and artifact limit evaluation of V1 segment left vertebral artery, without occlusion. No significant stenosis or occlusion of the remaining left vertebral artery. A dominant left vertebral artery is identified. Right subclavian artery: The right subclavian artery is patent, as visualized. Left subclavian artery: Venous enhancement and artifact limit evaluation of the left subclavian artery. Aorta: Fluid is seen in the superior aortic recess. Veins: Foci of intravenous gas are visualized, which are likely iatrogenic. Paranasal sinuses: Paranasal sinus disease visualized. Refer to the CTA head for further discussion. Lymph nodes: A small intraparotid lymph node is seen on the left side. Soft tissues: No significant soft tissue swelling. Bones/joints: Straightening of the lordotic curvature of the cervical spine. Degenerative changes are identified involving the cervical spine. Artifact limits evaluation of the cervical spinal canal. Varying degrees of neural foraminal narrowing are identified at multiple cervical levels. Lungs: Mild patchy nonspecific ground-glass density within the lungs bilaterally. Interstitial edema and atypical pneumonia are within the differential. IMPRESSION: 1. Mild stenosis of the proximal right external carotid artery. 2. Less than 50% stenoses of the
--- NOTE | 2022-11-14 16:52 | PC.NURSE ---
pt to radiology via stretcher
[2022-11-14 17:15] LABS: Troponin I < 0.01 ng/ml (0.00-0.034)
--- NOTE | 2022-11-14 17:55 | PC.NURSE ---
HIRO MONREAL speaking with [facility]
[2022-11-14 18:46] LABS: Influenza A, PCR Not Detected (NotDetected); Influenza B, PCR Not Detected (NotDetected)
[2022-11-14 19:17] LABS: POC Glucose,Bedside 101 (70-110)
[2022-11-14 19:28] LABS: Coronavirus 19, PCR Detected (NotDetected)
--- NOTE | 2022-11-14 19:38 | CT_ITS ---
PROCEDURE INFORMATION: Exam: CTA Chest With Contrast Exam date and time: 11/14/2022 7:58 PM Age: 62 years old Clinical indication: Pain; Other: Pleuritic; Additional info: Pleuritic pain, + covid, R/O pe TECHNIQUE: Imaging protocol: Computed tomographic angiography of the chest with contrast. 3D rendering (Not supervised by radiologist): MIP and/or 3D reconstructed images were created by the technologist. Radiation optimization: All CT scans at this facility use at least one of these dose optimization techniques: automated exposure control; mA and/or kV adjustment per patient size (includes targeted exams where dose is matched to clinical indication); or iterative reconstruction. Contrast material: ISOVUE 370; Contrast volume: 70 ml; Contrast route: INTRAVENOUS (IV); Other protocol: This patient has received 3 known CTs and 0 known cardiac nuclear medicine studies in the 12 months prior to the current study. COMPARISON: 1. CT CHEST WO CON 02/25/2020 11:[address] ABDOMEN PELVIS WO CON 02/25/2020 11:35 AM FINDINGS: Pulmonary arteries: The main pulmonary trunk, right/left main pulmonary arteries, and the proximal lobar branches demonstrate no definite intraluminal filling defect to suggest pulmonary embolism. Aorta: Small amount of fluid in the superior aortic recess. Evaluation of the thoracic aorta is limited by poor enhancement. Mild atherosclerosis of the aortic arch. A nondilated thoracic aorta is visualized. Celiac trunk and mesenteric arteries: Atherosclerosis of the splenic artery is visualized. Lungs: Mild patchy areas of ground-glass density are identified within the lungs bilaterally. Atypical pneumonia cannot be excluded. Interstitial edema is within the differential. A small consolidation is identified at the medial right lung base. Atelectatic change and pneumonia are within the differential. Additional atelectatic changes are visualized at the lung bases and within the lingula. Within the left midlung zone, there is a 4 mm nodule. Pleural spaces: No pneumothorax. No pleural effusion. Heart: Small pericardial effusion. No significant cardiomegaly. Coronary arteries: Coronary artery calcification is visualized. Lymph nodes: Scattered nonspecific cervical mediastinal lymph nodes are identified. A precarinal lymph node measures 1.2 x 0.8 cm. Calcifications are seen within the right hilum, suggestive of calcified lymph nodes from granulomatous disease. Additional calcified lymph node is noted in the subcarinal region. Gallbladder and bile ducts: Surgical clips are identified within the gallbladder fossa, compatible with cholecystectomy. Spleen: A calcification is visualized within the medial aspect of the spleen, which is stable. Adrenal glands: A 1.3 x 0.7 cm indeterminate right adrenal nodule is identified, with a density of 34.5 HU. This has decreased in size compared to the previous abdomen CT. Stomach and bowel: Postoperative changes are identified involving the stomach. Bones/joints: Degenerative changes are visualized involving the thoracic spine. Soft tissues: Unremarkable. IMPRESSION: 1. No acute pulmonary embolism. 2. Mild patchy areas of ground-glass density are identified within the lungs bilaterally. Atypical pneumonia cannot be excluded. Interstitial edema is within the differential. Clinical correlation recommended. 3. A small consolidation is identified at the medial right lung base. Atelectatic change and pneumonia are within the differential. Additional atelectatic changes are visualized at the lung bases and within the lingula. Clinical correlation and follow-up chest CT are recommended. 4. Within the left midlun
--- NOTE | 2022-11-14 20:03 | PC.NURSE ---
patient is back in room from CT @ this time.
[2022-11-14 20:30] LABS: Troponin I < 0.01 ng/ml (0.00-0.034)
== END 2022-11-14 21:36 | disposition home or self-care (01) ==
PROVIDERS: Emergency Provider Emergency Medicine
DX: U07.1 COVID-19 (principal); R07.89 Other chest pain; R20.2 Paresthesia of skin; J01.90 Acute sinusitis, unspecified; Z20.822 Contact with and (suspected) exposure to COVID-19
CPT/HCPCS: 70450; 70496; 70498; 71045; 71275; 80048; 81001; 82962; 84484; 85025; 93005; 96360; 99285; C9803; Q9967; U0003; U0005

== ENCOUNTER → 2022-12-27 14:52 | Outpatient (CLI) | payer MEDICARE, MEDICAID, SELFPAY ==
--- NOTE | 2022-12-27 14:56 | US_ITS ---
FINAL REPORT TECHNIQUE: Ultrasound images of the neck soft tissues was obtained. CLINICAL HISTORY: PAROTID GLAND ENLARGEMENT COMPARISON: CT performed 11/14/2022 FINDINGS: There are multiple cervical lymph nodes all with preserved fatty hilum. No dominant mass is seen. No abnormal fluid collection is seen. Parotid glands appear unremarkable. IMPRESSION: Multiple cervical lymph nodes with preserved fatty hilum. No dominant mass. Reviewed, Interpreted and Dictated by Jt Cole MD Transcribed by Herminia Draper Authenticated and [facility]
== END ==
PROVIDERS: PCP Nurse Practitioner Family; Visit Provider Nurse Practitioner Family
DX: K11.1 Hypertrophy of salivary gland (principal)
CPT/HCPCS: 76536

== ENCOUNTER → 2023-01-29 15:43 | Outpatient (CLI) | payer MEDICARE, MEDICAID, SELFPAY ==
--- NOTE | 2023-01-29 16:33 | XR_ITS ---
PROCEDURE INFORMATION: Exam: XR Left Ankle Exam date and time: 01/29/2023 4:46 PM Age: 62 years old Clinical indication: Pain; Ankle; Left; Additional info: Swelling and pain TECHNIQUE: Imaging protocol: Radiologic exam of the left ankle. Views: 3 or more views. COMPARISON: CR XR ANKLE LT MIN 3V 02/15/2021 2:16 PM FINDINGS: Bones/joints: Compared with 02/15/2021, there has been interval healing and bony remodeling of a distal left fibular metaphyseal fracture. There are also some chronic ovoid ossicles abutting the tip of the medial malleolus which could be old avulsion injuries or degenerative deltoid ligament calcifications. No new, acute fracture or dislocation in the interval. Arthritis at the ankle with small periarticular spurs. Ankle joint effusion. Large plantar calcaneal spur, small Achilles spur. There are no lytic skeletal lesions seen. Soft tissues: In addition to periarticular calcifications noted above, there is soft tissue swelling greatest at the medial ankle. There are Achilles tendon calcifications and there are posterior plantar fascial calcifications. No soft tissue emphysema. IMPRESSION: 1. Old healed distal left fibular metaphyseal fracture. 2. Chronic ovoid ossicles abutting the tip of the medial malleolus consistent with old avulsion injuries or degenerative deltoid ligament calcifications. 3. No acute fracture or dislocation, compared with 02/15/2021. 4. Ankle arthritis, ankle joint effusion. 5. Medial soft tissue swelling, correlate for sprain or contusion. 6. Plantar and Achilles calcaneal spurs with adjacent soft tissue calcifications, correlate for history of plantar fasciitis and calcific Achilles tendinopathy.
[2023-01-29 17:37] LABS: Basophils % 0.4 % (0.1-2.0); Eosinophils # 0.1 K/mm3 (0.0-0.4); Eosinophils % 1.2 % (0.1-12.0); Hematocrit 41.3 % (37.0-47.0); Hemoglobin 13.9 g/dL (12.2-16.2); Lymphocytes # 2.2 K/mm3 (0.7-4.5); Mean Corpuscular HGB Conc 33.6 g/dL (31.8-35.4); Mean Corpuscular Hemoglobin 30.1 pg (27.0-31.2); Mean Corpuscular Volume 89.6 fl (81-99); Mean Platelet Volume 8.4 fl (7.4-10.4); Monocytes # 0.5 K/mm3 (0.1-1.0); Monocytes % 5.6 % (1.7-9.3); Neutrophils # 5.3 K/mm3 (1.8-7.8); Neutrophils % 65.8 % (37.0-80.0); Platelet Count 209 K/mm3 (142-424); Red Blood Count 4.62 M/mm3 (4.20-5.40); Red Cell Distribution Width 13.5 % (11.5-17.5)
[2023-01-29 18:01] LABS: Erythrocyte Sedimentation Rate 22 mm/hr (0-30)
[2023-01-29 19:05] LABS: Uric Acid 5.6 mg/dl (2.5-6.2)
[2023-01-29 19:11] LABS: C-Reactive Protein 13.1 mg/L (0-4)
[2023-01-31 12:16] LABS: RA Latex Turbid. <10.0 IU/mL (<14.0)
[2023-02-01 14:12] LABS: Antinuclear Antibodies, IFA Negative (.)
== END ==
PROVIDERS: PCP Nurse Practitioner Family; Visit Provider Nurse Practitioner Family
DX: M25.572 Pain in left ankle and joints of left foot (principal); M25.472 Effusion, left ankle
CPT/HCPCS: 36415; 73610; 84550; 85025; 85651; 86038; 86140; 86431

== ENCOUNTER → 2023-02-06 09:22 | Outpatient (CLI) | payer MEDICARE, MEDICAID, SELFPAY ==
[2023-02-06 10:45] LABS: Chloride 99 mmol/L (98-107); Potassium 4.2 mmoL/L (3.5-5.1); Sodium 139 mmol/L (136-145)
[2023-02-06 10:47] LABS: Blood Urea Nitrogen 15 mg/dl (7-17); Estimated Glomerular Filt Rate 85 ml/min (>60); GFR (African American) 103 ML/MIN (>60)
[2023-02-06 10:48] LABS: Alanine Aminotransferase 24 U/L (12-78); Alkaline Phosphatase 91 U/L (38-126); Anion Gap 18.2 mEq/L (5-15); Aspartate Amino Transferase 26 U/L (14-36); Bilirubin,Total 0.5 mg/dl (0.2-1.3); Carbon Dioxide 26 mmol/L (22.0-30.0); Glucose 170 mg/dl (74-100); Total Protein,Serum 6.7 g/dl (6.3-8.2)
[2023-02-06 10:55] LABS: Albumin/Globulin Ratio 1.4 (1.1-1.8); Globulin 2.8 g/dL (1.3-3.2)
[2023-02-06 10:56] LABS: Albumin Level 3.9 g/dl (3.5-5.0)
[2023-02-06 11:04] LABS: Free T4 (Free Thyroxine) 2.03 ng/dl (0.78-2.19)
[2023-02-06 11:19] LABS: Thyroid Stimulating Hormone < 0.02 uIU/mL (0.465-4.68)
[2023-02-07 13:51] LABS: Triiodothyronine (T3) Free 3.1 pg/mL (2.0-4.4)
== END ==
PROVIDERS: Hospitalist; PCP Nurse Practitioner Family; Visit Provider Nurse Practitioner Family
DX: E89.0 Postprocedural hypothyroidism (principal)
CPT/HCPCS: 36415; 80053; 84439; 84443; 84481

== ENCOUNTER → 2023-02-08 08:34 | Outpatient (CLI) | payer MEDICARE, MEDICAID, SELFPAY ==
--- NOTE | 2023-02-08 08:40 | MR_ITS ---
FINAL REPORT CLINICAL HISTORY: ACUTE LEFT ANKLE PAIN. MEDIAL SIDED ANKLE SWELLING AND PAIN. POSTERIOR ANKLE PAIN. NO INJURY OR TRAUMA COMPARISON: None FINDINGS: Multiplanar MR imaging of the left ankle was performed with and without contrast. The bony structures are intact without evidence of fracture, bone bruise. No osteochondral lesion is identified. The ligaments are intact without evidence of injury. The Achilles tendon appears intact. There is unusual buckling of the posterior tibial tendon. The buckling is evident at the musculotendinous junction well seen on sagittal image 8 of series 6. There is some surrounding tendinitis. The tendon may be disrupted distally and proximally retracted. Distal tendon is not well visualized. The remaining supporting tendons appear intact. There is thickening of the posterior plantar fascia. There is a large plantar calcaneal spur. No marrow edema at the base of the calcaneus. No significant joint effusion is seen. There is no evidence of soft tissue mass or cyst. IMPRESSION: Distal disruption of the posterior tibial tendon with proximal retraction or redundancy. Reviewed, Interpreted and Dictated by Jt Cole MD Transcribed by Linda Simmons Authenticated and [facility]
== END ==
PROVIDERS: PCP Nurse Practitioner Family; Visit Provider Nurse Practitioner Family
DX: M25.572 Pain in left ankle and joints of left foot (principal)
CPT/HCPCS: 73723; A9576

== ENCOUNTER 2023-02-13 15:55 | Outpatient (RCR) | payer MEDICARE, MEDICAID, SELFPAY | END 2023-02-13 16:34 | disposition home or self-care (01) | LOC: PT 15:55 | PROVIDERS: Visit Provider Nurse Practitioner Family | DX: M76.822 Posterior tibial tendinitis, left leg (principal) | CPT/HCPCS: 97760 ==

== ENCOUNTER → 2023-03-06 16:17 | Outpatient (CLI) | payer MEDICARE, MEDICAID, SELFPAY ==
--- NOTE | 2023-03-06 16:48 | XR_ITS ---
PROCEDURE INFORMATION: Exam: XR Left Foot Complete; Alignment Exam date and time: 03/06/2023 4:51 PM Age: 62 years old Clinical indication: Pain; Foot; Left; Additional info: Foot pain TECHNIQUE: Imaging protocol: Radiologic exam of the left foot. Views: 3 or more views. COMPARISON: CR XR ANKLE LT MIN 3V 01/29/2023 4:46 PM FINDINGS: Bones/joints: No acute fracture or dislocation. Mild osteoarthritic changes at the 1st metatarsal-phalangeal joint. Spurring along the plantar calcaneus. Talus 1st metatarsal angle is normal at 0. Calcaneal inclination angle measures 16 degrees. Soft tissues: Normal. IMPRESSION: Mild flatfoot deformity.
--- NOTE | 2023-03-06 16:48 | XR_ITS ---
PROCEDURE INFORMATION: Exam: XR Right Calcaneus Exam date and time: 03/06/2023 4:51 PM Age: 62 years old Clinical indication: Edema; No, it is generalized TECHNIQUE: Imaging protocol: Radiologic exam of the right calcaneus. Views: 2 or more views. COMPARISON: No relevant prior studies available. FINDINGS: Bones/joints: Surgical screw via posterior plantar approach towards the talus. No acute fracture. Plantar spurring. Soft tissues: No soft tissue radiopaque foreign body. IMPRESSION: No acute findings.
--- NOTE | 2023-03-06 16:48 | XR_ITS ---
PROCEDURE INFORMATION: Exam: XR Right Foot Complete; Alignment Exam date and time: 03/06/2023 4:51 PM Age: 62 years old Clinical indication: Pain; Foot; Right; Additional info: Foot pain TECHNIQUE: Imaging protocol: Radiologic exam of the right foot. Views: 3 or more views. COMPARISON: No relevant prior studies available. FINDINGS: Bones/joints: No acute fracture or dislocation. Mild osteoarthritic changes at the 1st metatarsal-phalangeal joint. Surgical screw within the calcaneus. Talus 1st metatarsal angle measures 6 degrees. Calcaneal inclination angle measures 16 degrees. Soft tissues: Normal. IMPRESSION: Mild flatfoot deformity.
--- NOTE | 2023-03-06 16:48 | XR_ITS ---
PROCEDURE INFORMATION: Exam: XR Left Calcaneus Exam date and time: 03/06/2023 4:51 PM Age: 62 years old Clinical indication: Edema; No, it is generalized; Additional info: Foot pain TECHNIQUE: Imaging protocol: Radiologic exam of the left calcaneus. Views: 2 or more views. COMPARISON: CR XR ANKLE LT MIN 3V 01/29/2023 4:46 PM FINDINGS: Bones/joints: No acute fracture. Plantar spurring. Soft tissues: No soft tissue radiopaque foreign body. IMPRESSION: No acute findings.
[2023-03-06 17:35] LABS: Basophils % 0.3 % (0.1-2.0); Eosinophils # 0.1 K/mm3 (0.0-0.4); Eosinophils % 1.1 % (0.1-12.0); Hematocrit 40.6 % (37.0-47.0); Hemoglobin 13.4 g/dL (12.2-16.2); Lymphocytes # 2.6 K/mm3 (0.7-4.5); Lymphocytes % 40.1 % (10-50); Mean Corpuscular HGB Conc 32.9 g/dL (31.8-35.4); Mean Corpuscular Volume 84.9 fl (81-99); Monocytes # 0.4 K/mm3 (0.1-1.0); Monocytes % 5.5 % (1.7-9.3); Neutrophils # 3.4 K/mm3 (1.8-7.8); Neutrophils % 53.1 % (37.0-80.0); Platelet Count 206 K/mm3 (142-424); Red Blood Count 4.78 M/mm3 (4.20-5.40); Red Cell Distribution Width 13.2 % (11.5-17.5); White Blood Count 6.5 K/mm3 (4.8-10.8)
[2023-03-06 17:40] LABS: Hemoglobin A1C 8.9 % (4.0-6.0)
[2023-03-06 17:49] LABS: Chloride 103 mmol/L (98-107); Sodium 141 mmol/L (136-145)
[2023-03-06 17:50] LABS: Potassium 4.4 mmoL/L (3.5-5.1)
[2023-03-06 17:52] LABS: Alanine Aminotransferase 23 U/L (12-78); Albumin Level 3.9 g/dl (3.5-5.0); Albumin/Globulin Ratio 1.3 (1.1-1.8); Alkaline Phosphatase 89 U/L (38-126); Anion Gap 13.4 mEq/L (5-15); Aspartate Amino Transferase 26 U/L (14-36); Bilirubin,Total 0.4 mg/dl (0.2-1.3); Blood Urea Nitrogen 17 mg/dl (7-17); Carbon Dioxide 29 mmol/L (22.0-30.0); Estimated Glomerular Filt Rate 85 ml/min (>60); GFR (African American) 103 ML/MIN (>60); Globulin 2.9 g/dL (1.3-3.2); Total Protein,Serum 6.8 g/dl (6.3-8.2)
[2023-03-06 17:53] LABS: Calcium 9.1 mg/dl (8.4-10.2); Glucose 140 mg/dl (74-100)
[2023-03-14 09:31] LABS: 1,25 Dihydroxy Vitamin D 67 pg/mL (.); 1,25-Dihydroxy, Vitamin D-2 38 pg/mL (.); 1,25-Dihydroxy, Vitamin D-3 29 pg/mL (.)
== END ==
PROVIDERS: PCP Nurse Practitioner Family; Visit Provider Podiatrist
DX: E11.9 Type 2 diabetes mellitus without complications; M25.571 Pain in right ankle and joints of right foot; M79.671 Pain in right foot; M25.572 Pain in left ankle and joints of left foot; M79.672 Pain in left foot; Z79.4 Long term (current) use of insulin; E67.3 Hypervitaminosis D
CPT/HCPCS: 36415; 73630; 73650; 80053; 82652; 83036; 85025

== ENCOUNTER 2023-04-05 11:27 | Day surgery (SDC) | payer MEDICARE, MEDICAID, SELFPAY ==
[2023-04-04 13:09] VITALS: BMI 35.3
[2023-04-05] VITALS (11 sets, daily range): BP systolic 121–163; BP diastolic 53–88; PULSE 69–97; RESP 16–18; TEMP 36.1–43; O2SAT 91–98
--- NOTE | 2023-04-05 11:38 | XR_ITS ---
FINAL REPORT CLINICAL HISTORY: preop testing- asthma FINDINGS: A single portable view of the chest was obtained. The heart size and pulmonary vascularity are within normal limits. The mediastinum is within normal limits. No acute pulmonary abnormality is identified. The bony thorax is intact. IMPRESSION: No active cardiopulmonary disease. Reviewed, Interpreted and Dictated by Boy Bonner III, MD Transcribed by Leigh Valenzuela Authenticated and . [facility]
--- NOTE | 2023-04-05 11:38 | ECG_ITS ---
APPROVED REPORT Exam: Resting ECG HR:68 bpm ECG Measurements Heart Rate 68 AXES MD 129 P -7 QRSd 82 QRS 7 QT 408 T 43 QTc 425 Conclusion SINUS RHYTHM NORMAL ECG UNCONFIRMED REPORT Electronically signed by : Kyle Bay MD 04/05/2023 22:20:13
--- NOTE | 2023-04-05 12:35 | EXP.ANES.CKL ---
[facility] Disclaimer: The information contained in this section may have been updated after the patient was seen, as this information can be updated by other users. Medical History Arthritis Asthma Cholecystectomy planned Diabetes mellitus Diabetes mellitus, type 2 Fibromyalgia Hypertension Hypothalamic hypothyroidism Migraine Sleep apnea Thyroid cancer Surgical History History of heart artery stent S/P foot surgery, right Family History Mother Diabetes Cancer Father Cancer Hypertension Social History (Updated 04/05/23 @ 11:43 by Solange Estrada RN) Smoking Status: Never smoker alcohol intake: never substance use type: denies use current occupational status: disabled Travel in the last 8 weeks: None household members: family housing: house lives independently: No education level: college service: No caffeine: Yes special ameya needs: No do you feel safe at home: Yes victim of physical abuse: No victim of emotional abuse: No victim of sexual abuse: No would you like helpful sources: No [facility] Anesthesia Checklist Patient Identification Patient Identification: Arm Band and Verbal (Name & ) Structural Data Admitted From: Home Planned Operative Procedure/s: left tendon repair Verified Documents: Surgical Consent NPO Status Verified Time NPO: 00:00 Additional verifications Anesthesia Reactions: No Hx Blood Transfusions: No Blood Transfusion Reaction: No Airway Assessment C-Spine Mobility Assessed: Yes TMJ Mobility Assessed: Yes Dentition: Edentulous Neurological Assessment Level of Consciousness: Awake and Alert Hx Seizures: No Numbness or tingling in extremities: No Anesthesia Plan ASA Class: II Anesthesia Type: General w/block
--- NOTE | 2023-04-05 15:07 | SUR.PHASEI ---
xray at bedside.
--- NOTE | 2023-04-05 15:09 | EXP.ANES.I ---
[facility] Anesthesia Record Part I Anesthesia Record I Intake, IV Amount: 550 Estimated blood loss (mL): 5 Urine output (mL): 0 Blood Pressure: 151/88 SaO2: 95 Pulse Rate: 97 Respiratory Rate: 16 Temperature: 97.6 F Patient is:: Awake and Stable Stable to PACU at:: 15:05
--- NOTE | 2023-04-05 15:10 | EXP.OP.NOTE ---
Date of procedure: 04/05/23 Pre-op Diagnosis:: Left posterior tibial tendon rupture Left posterior tibial tendinitis Left pes planus Left foot/ankle synovitis Post-op Diagnosis:: Same Procedure performed:: Left posterior tibial tendon debridement and repair with graft Left PT advancement (Michael) Left foot/ankle synovectomy Application of amniotic graft Surgeon:: Cori Soria DPM GLOVE PAIRER:: Other (Willa Childress) Anesthesia: regional (L nerve block) and LMA Estimated blood loss (mL): 20 Clinical Note:: Patient is a 62-year-old diabetic female who presents with pain to the left foot/ankle over 3 months. The patient has tried immobilization, modification of shoe gear, strapping, inserts, ice, elevation, and NSAIDs. She has also tried ankle bracing and home physical therapy. After a long discussion with the patient in regards to the conservative versus surgical treatment for the tendon tear/deformity, the patient has elected to proceed with surgery because they have failed conservative treatment and continue to have pain and worsening symptoms affecting daily activities. The patient has been instructed on the planned procedure, all risk versus benefits of the procedure discussed. Discussed staging the flatfoot surgery so patient can have better sugar control at the time of the procedure/reconstruction. These include but are not limited to: bleeding, infection, nerve and blood vessel damage, need for further surgery, delay in healing of soft tissue or bone, tendon re-rupture, failure of bones to heal, non-union, mal-union, failure of the implant, prolonged pain and recovery, prolonged edema, recurrence of deformity, Charcot deformity, CRPS/RSD, DVT and anesthetic complications including HI, PE, and . No guarantees were given. All questions fully answered. The patient verbalized understanding and agreed to proceed with surgery. Written consent was obtained. Operative findings:: Left posterior tibial tendon had previous rupture with synovitis and hypertrophy noted about 4 cm proximal to the medial malleolus. There is also another area of hypertrophy and thickening consistent with rupture and tear but 2 cm inferior to the medial malleolus. There was some decreased tension and slack in the tendon with longitudinal tear that extended between the 2 areas of hypertrophied rupture. Synovitis noted around the medial foot and ankle. Operative note:: On this date and time, the patient was deemed an appropriate surgical candidate. With informed consent signed, the patient was taken to the operating theater. The patient was positioned supine. General anesthesia was induced. Tourniquet was applied to the LEFT mid-calf @225mmHg. The LEFT lower extremity was prepped and draped in normal sterile fashion. IV Ancef given. LEFT FOOT SYNOVECTOMY: Attention was directed to the Medial foot where an incision was mapped out just distal to the navicular extending proximal past the medial malleolus along the course of the PT tendon. Dissection was carried through the skin through subcutaneous tissue with care taken to maintain surgical hemostasis and safely retract neurovascular structures. Vessels were hand tied or bovied with electrocautery as necessary. Dissection was then carried through deep fascia, into the posterior tibial tendon sheath. There was pink and red synovitic tissue noted surrounding the tendon sheath. Dissection was then carried down through the sheath overlying the PT tendon and immediately synovitic fluid was noted. Synovitis and fluid was cleaned up and the synovitis was debrided from around the tendon. The incision was flushed with copious amounts of sterile saline. LEFT POSTERIOR TIBIAL TENDON REPAIR (WITH ARTELON GRAFT): Attention was directed to the posterior tibial tendon (PTT), where a longitudinal tear was noted extending from proximal the navicular insertion extending behind the medial malleolus and 4cm proximally. See operative findings. There is 2 areas of
[2023-04-05 15:13] LABS: POC Glucose,Bedside 113 (70-110)
--- NOTE | 2023-04-05 15:15 | XR_ITS ---
FINAL REPORT CLINICAL HISTORY: Post op PT repair COMPARISON: 03/06/2022 FINDINGS: LEFT FOOT SERIES Three views of the left foot were obtained. There are interval postoperative changes of the medial aspect of the navicular. There is no acute fracture or dislocation. There is mild degenerative change. There is a plantar calcaneal spur. There is no soft tissue abnormality.. The splint obscures some of the detail. IMPRESSION: Intervertebral postoperative changes of the medial aspect of the navicular. Mild degenerative change. Reviewed, Interpreted and Dictated by Boy Bonner III, MD Transcribed by Renan Callahan Authenticated and [facility]
[2023-04-07 09:12] LABS: POC Glucose,Bedside 96 (70-110)
== END 2023-04-05 16:28 | disposition home or self-care (01) ==
PROVIDERS: PCP Nurse Practitioner Family; Visit Provider Podiatrist
PROC: (CPT 15275; principal; 2023-04-05 13:00)
DX: S86.112A Strain of other muscle(s) and tendon(s) of posterior muscle group at lower leg level, left leg, initial encounter (principal); M76.822 Posterior tibial tendinitis, left leg; M21.42 Flat foot [pes planus] (acquired), left foot; M65.9 Synovitis and tenosynovitis, unspecified; E11.9 Type 2 diabetes mellitus without complications; Z79.4 Long term (current) use of insulin; Z79.899 Other long term (current) drug therapy
CPT/HCPCS: 15275; 27659; 27687; 27691; 29895; 71045; 73630; 82962; 88304; 93005; 96374; C1713; J0690; J2405; Q4211

== ENCOUNTER → 2023-04-19 09:45 | Outpatient (CLI) | payer MEDICARE, MEDICAID, SELFPAY ==
--- NOTE | 2023-04-19 09:53 | XR_ITS ---
FINAL REPORT CLINICAL HISTORY: recent fall with left LE pain, tendon repair 2 wks ago FINDINGS: LEFT TIBIA/FIBULA SERIES Two views of the left tibia/fibula were obtained. There is no acute fracture or dislocation. There is mild degenerative change of the knee and the ankle. There is no soft tissue abnormality. IMPRESSION: Mild degenerative change of the knee and ankle. Reviewed, Interpreted and Dictated by Boy Bonner III, MD Transcribed by Renan Callahan Authenticated and [facility]
== END ==
LOC: RAD 09:47
PROVIDERS: PCP Nurse Practitioner Family; Visit Provider Podiatrist
DX: G89.18 Other acute postprocedural pain (principal); Z98.890 Other specified postprocedural states; M79.662 Pain in left lower leg
CPT/HCPCS: 73590

== ENCOUNTER 2023-06-21 09:00 | Outpatient (RCR) | payer MEDICARE, MEDICAID, SELFPAY ==
--- NOTE | 2023-05-23 15:56 | HMH.PTOPEV ---
PT Outpatient Evaluation Rehab PT Outpatient Evaluation Start: 05/23/23 14:32 Freq: Status: Active Protocol: Document 05/23/23 15:42 LEONARDO (Rec: 05/23/23 15:56 LEONARDO [id number]) E-signed By Satya Monterroso, PT Outpatient Therapy Subjective History Subjective History Patient is a 63 year old female presenting to outpatient PT with reports of L post-surgical foot/ankle pain S/P L post-tib recon sx performed 04/05/23. Symptoms have progressively gotten worse over the past 6 months. Patient has previous hx of pes planus. Comorbidities include hx of L tib/fib fracture, HTN, diabetes, HL and R calcaneal sx. Chief Complaint Pain,Stiff,Swelling,Weakness Symptom Type Sharp,Numbness,Tingling Symptoms Relieved By Rest/Positioning,Ice,Brace/ Support,Elevation Symptoms Aggravated By Standing,Physical Activity, Walking Prior Functional Limitations None Current Functional Limitations Housework,Standing,Squatting, Recreation Activity,Walking, Stairs,Balance Symptom Description Intermittent Level of pain today (0-10) 2 Pain scale - at its best (0-10) 0 Pain scale - at its worst (0-10) 5 Ankle/Foot Eval Gait Observation General Gait Pattern Observation Antalgic Gait,Decrease Weight Bear (L) Assistive Device Ambulation Assistive Device Rolling Walker Palpation Tenderness left Ankle/Foot Palpation Findings Tenderness Ankle/Foot Palpation Overall Comment Surgical incision, distal achilles 3/4 ROM Ankle/Foot Dorsiflexion w/Knee Extended -5 Active Range Motion (degrees) Ankle/Foot Plantar Flexion Active Range 42 of Motion (degrees) Ankle/Foot Eversion Active Range of 15 Motion (degrees) Ankle/Foot Inversion Active Range of 7 Motion (degrees) Ankle/Foot ROM Limitations Soft Tissue Tightness, Contracture Great Toe ROM Reason Not Measured Within Functional Limits MMT Ankle Dorsiflexion Strength Grade 2+ Poor+ Ankle Plantarflexion Strength Grade 2+ Poor+ Foot Eversion Strength Grade 2+ Poor+ Foot Inversion Strength Grade 2+ Poor+ Special Tests Ankle Anterior Drawer Test Negative Left Ankle Eversion Test Negative Left Foot Interdigital Neuroma Test Negative Left Outpatient T
== END 2023-06-21 09:05 | disposition home or self-care (01) ==
LOC: PT 09:00
PROVIDERS: PCP Nurse Practitioner Family; Visit Provider Podiatrist
DX: G89.18 Other acute postprocedural pain (principal); M79.672 Pain in left foot
CPT/HCPCS: 97010; 97014; 97110; 97112; 97163; 97530; G0283

== ENCOUNTER → 2023-07-10 12:50 | Outpatient (CLI) | payer MEDICARE, MEDICAID, SELFPAY ==
--- NOTE | 2023-07-10 12:50 | MM_ITS ---
PROCEDURE INFORMATION: Exam: Bilateral Screening 3D Mammography Exam date and time: 07/10/2023 12:52 PM Age: 63 years old Clinical indication: Screening mammogram TECHNIQUE: Imaging protocol: Bilateral Screening tomosynthesis and 2D mammography including computer-aided detection (CAD) when performed. COMPARISON: DIG MAMMO BILAT SCREENING 10/25/2020 1:31 PM FINDINGS: MAMMOGRAPHY: Breast composition: There are scattered areas of fibroglandular density. Mass: None. Architectural distortion: No new or suspicious architectural distortion. Calcifications: No new or suspicious calcifications are present Asymmetric density: No new or suspicious asymmetric density is present Skin thickening: None. Axillary adenopathy: None. IMPRESSION: No mammographic evidence of malignancy. Recommend annual screening mammography unless otherwise clinically indicated. ASSESSMENT: BI-RADS category 1: Negative
== END ==
PROVIDERS: PCP Nurse Practitioner Family; Visit Provider Nurse Practitioner Family
DX: Z12.31 Encounter for screening mammogram for malignant neoplasm of breast (principal)
CPT/HCPCS: 77063; 77067

== ENCOUNTER → 2023-07-18 08:59 | Outpatient (CLI) | payer MEDICARE, MEDICAID, SELFPAY ==
--- NOTE | 2023-07-18 09:10 | CT_ITS ---
FINAL REPORT TECHNIQUE: Thin section axial CT images with coronal and sagittal reformats were performed. 3D reformatted images were obtained and reviewed. This study was performed with techniques to keep radiation doses as low as reasonably achievable (ALARA). Individualized dose reduction techniques using automated exposure control or adjustment of mA and/or kV according to the patient''s size were employed. CLINICAL HISTORY: foot pain FINDINGS: There are no fractures. There are postoperative changes in the medial navicular. There are mild degenerative changes of the ankle and foot. Soft tissue swelling in the medial rear foot. There are several soft tissue calcifications in the medial rear foot. IMPRESSION: Degenerative changes without acute process. Reviewed, Interpreted and Dictated by Boy Bonner III, MD Transcribed by Charlene Billingsley Authenticated and [facility]
--- NOTE | 2023-07-18 09:10 | XR_ITS ---
FINAL REPORT CLINICAL HISTORY: Arthritis, pain, pes planus COMPARISON: None FINDINGS: Using L1-4, the bone mineral density of the spine is 1.191 g/cm2, corresponding to T-score of 1.3, within normal limits. Using the left hip, the bone mineral density of the femoral neck is 0.823 g/cm2, corresponding to a T-score of -0.2, within normal limits. Using the right hip, the bone mineral density of the femoral neck is 0.783 g/cm2, corresponding to a T-score of -0.6, within normal limits. FRAX not reported because all T-scores at or above-1.0. NOTE: T-score: Standard deviation compared with peak bone mass of young adult mean. *Following the recommendations of the International Society of Bone densitometry, classification of hip BMD is based on the lower of two T-scores; total hip or femoral neck. IMPRESSION: Normal bone mineral density of the lumbar spine and hips. Reviewed, Interpreted and Dictated by Boy Bonner III, MD Transcribed by Linda Simmons Authenticated and [facility]
[2023-07-18 10:37] LABS: Hemoglobin A1C 6.8 % (4.0-6.0)
[2023-07-18 10:45] LABS: Basophils % 0.3 % (0.1-2.0); Eosinophils # 0.1 K/mm3 (0.0-0.4); Eosinophils % 1.4 % (0.1-12.0); Hematocrit 35.4 % (37.0-47.0); Hemoglobin 11.8 g/dL (12.2-16.2); Lymphocytes # 1.7 K/mm3 (0.7-4.5); Lymphocytes % 23.9 % (10-50); Mean Corpuscular HGB Conc 33.5 g/dL (31.8-35.4); Mean Corpuscular Hemoglobin 27.9 pg (27.0-31.2); Mean Corpuscular Volume 83.3 fl (81-99); Mean Platelet Volume 8.7 fl (7.4-10.4); Monocytes # 0.3 K/mm3 (0.1-1.0); Monocytes % 4.7 % (1.7-9.3); Neutrophils % 69.8 % (37.0-80.0); Platelet Count 185 K/mm3 (142-424); Red Blood Count 4.25 M/mm3 (4.20-5.40); Red Cell Distribution Width 14.4 % (11.5-17.5); White Blood Count 7.2 K/mm3 (4.8-10.8)
[2023-07-18 10:49] LABS: Alanine Aminotransferase 21 U/L (12-78); Albumin Level 3.7 g/dl (3.5-5.0); Albumin/Globulin Ratio 1.2 (1.1-1.8); Alkaline Phosphatase 86 U/L (38-126); Anion Gap 8.1 mEq/L (5-15); Aspartate Amino Transferase 23 U/L (14-36); Bilirubin,Total 0.4 mg/dl (0.2-1.3); Blood Urea Nitrogen 17 mg/dl (7-17); Calcium 8.2 mg/dl (8.4-10.2); Carbon Dioxide 31 mmol/L (22.0-30.0); Chloride 106 mmol/L (98-107); Estimated Glomerular Filt Rate 85 ml/min (>60); GFR (African American) 103 ML/MIN (>60); Potassium 4.1 mmoL/L (3.5-5.1); Sodium 141 mmol/L (136-145); Total Protein,Serum 6.7 g/dl (6.3-8.2)
[2023-07-18 10:54] LABS: Glucose 41 mg/dl (74-100)
[2023-07-18 11:38] LABS: Vitamin B12 677 pg/mL (239-931)
[2023-07-18 14:13] LABS: Erythrocyte Sedimentation Rate 36 mm/hr (0-30)
[2023-07-19 15:56] LABS: C-Reactive Protein 12.3 mg/L (0-4)
[2023-07-28 01:15] LABS: 1,25 Dihydroxy Vitamin D 50 pg/mL (.); 1,25-Dihydroxy, Vitamin D-2 33 pg/mL (.); 1,25-Dihydroxy, Vitamin D-3 17 pg/mL (.)
== END ==
PROVIDERS: PCP Nurse Practitioner Family; Visit Provider Podiatrist
DX: E11.42 Type 2 diabetes mellitus with diabetic polyneuropathy (principal); Z78.0 Asymptomatic menopausal state; J18.9 Pneumonia, unspecified organism; M19.072 Primary osteoarthritis, left ankle and foot; M21.41 Flat foot [pes planus] (acquired), right foot; M21.42 Flat foot [pes planus] (acquired), left foot; R09.89 Other specified symptoms and signs involving the circulatory and respiratory systems; Z01.818 Encounter for other preprocedural examination; Z79.4 Long term (current) use of insulin
CPT/HCPCS: 36415; 73700; 77080; 80053; 82607; 82652; 83036; 85025; 85651; 86140

== ENCOUNTER → 2023-08-01 10:30 | Outpatient (CLI) | payer MEDICARE, MEDICAID, SELFPAY ==
[2023-08-01 13:27] LABS: Free T4 (Free Thyroxine) 0.97 ng/dl (0.78-2.19)
[2023-08-01 13:30] LABS: T4 (Thyroxine) 8.8 ug/dl (5.53-11.0)
[2023-08-01 13:44] LABS: Thyroid Stimulating Hormone 3.78 uIU/mL (0.465-4.68)
[2023-08-02 11:56] LABS: Triiodothyronine (T3) Free 2.1 pg/mL (2.0-4.4)
== END ==
PROVIDERS: PCP Nurse Practitioner Family; Visit Provider Nurse Practitioner Family
DX: E03.9 Hypothyroidism, unspecified (principal); R79.89 Other specified abnormal findings of blood chemistry
CPT/HCPCS: 84436; 84439; 84443; 84481

== ENCOUNTER → 2023-08-14 10:17 | Outpatient (CLI) | payer MEDICARE, MEDICAID, SELFPAY ==
--- NOTE | 2023-08-14 10:21 | CT_ITS ---
FINAL REPORT TECHNIQUE: Axial CT images of the soft tissues of the neck were obtained with and without contrast. This study was performed with techniques to keep radiation doses as low as reasonably achievable (ALARA). Individualized dose reduction techniques using automated exposure control or adjustment of mA and/or kV according to the patient's size were employed. CLINICAL HISTORY: lymphadenopathy, hx of thyroid cancer COMPARISON: CTA chest dated 11/14/2022 FINDINGS: CT NECK SOFT TISSUE WITH AND WITHOUT CONTRAST The nasopharynx, oropharynx, and epiglottis are unremarkable. There may be a small soft tissue nodule in the left pre epiglottic space as seen on series 6 image 40. The larynx is intact. There has been prior thyroidectomy. The salivary glands are unremarkable. There are few small submandibular lymph nodes. Otherwise, there is no lymphadenopathy. No mass or fluid collection is identified. Limited evaluation of the lung apices is unremarkable. There are no acute osseous changes. IMPRESSION: Possible small soft tissue nodule in the left pre epiglottic space. Consider direct visualization. Small bilateral submandibular lymph nodes which are not enlarged by size criteria. These are unchanged from the prior exam and favored to be reactive. Reviewed, Interpreted and Dictated by Qian Galdamez MD Transcribed by Leigh Valenzuela Authenticated and [facility]
== END ==
PROVIDERS: PCP Nurse Practitioner Family; Visit Provider Nurse Practitioner Family
DX: R59.1 Generalized enlarged lymph nodes (principal); Z85.850 Personal history of malignant neoplasm of thyroid
CPT/HCPCS: 70492; Q9967

== ENCOUNTER → 2023-08-20 10:21 | Outpatient (CLI) | payer MEDICARE, MEDICAID, SELFPAY ==
--- NOTE | 2023-08-20 10:25 | US_ITS ---
FINAL REPORT CLINICAL HISTORY: Decreased pulses in feet DM FINDINGS: ANKLE-BRACHIAL PRESSURE INDICES Pressure indices are as follows: RIGHT LOWER EXTREMITY: Ankle-brachial pressure index: 1.4 Comments: Normal LEFT LOWER EXTREMITY: Ankle-brachial pressure index: 1.1 Comments: Normal IMPRESSION: No evidence of significant obstructive peripheral vascular disease of the lower extremities Reviewed, Interpreted and Dictated by Jt Cole MD Transcribed by Herminia Draper Authenticated and . [facility]
== END ==
PROVIDERS: PCP Nurse Practitioner Family; Visit Provider Podiatrist
DX: R09.89 Other specified symptoms and signs involving the circulatory and respiratory systems (principal)
CPT/HCPCS: 93923

== ENCOUNTER → 2023-08-28 08:17 | Outpatient (CLI) | payer MEDICARE, MEDICAID, SELFPAY ==
[2023-08-28 18:25] LABS: T4 (Thyroxine) 9.3 ug/dl (5.53-11.0)
[2023-08-28 18:39] LABS: Thyroid Stimulating Hormone 6.93 uIU/mL (0.465-4.68)
[2023-08-30 08:17] LABS: Triiodothyronine (T3) Free 2.3 pg/mL (2.0-4.4)
== END ==
PROVIDERS: PCP Nurse Practitioner Family; Visit Provider Nurse Practitioner Family
DX: E03.9 Hypothyroidism, unspecified (principal)
CPT/HCPCS: 84436; 84443; 84481

== ENCOUNTER → 2023-09-18 10:41 | Outpatient (CLI) | payer MEDICARE, MEDICAID, SELFPAY ==
[2023-09-18 11:43] LABS: Hemoglobin A1C 6.8 % (4.0-6.0)
[2023-09-18 11:50] LABS: Alanine Aminotransferase 21 U/L (12-78); Albumin Level 3.9 g/dl (3.5-5.0); Albumin/Globulin Ratio 1.3 (1.1-1.8); Alkaline Phosphatase 93 U/L (38-126); Anion Gap 8.3 mEq/L (5-15); Aspartate Amino Transferase 27 U/L (14-36); Bilirubin,Total 0.4 mg/dl (0.2-1.3); Blood Urea Nitrogen 17 mg/dl (7-17); Calcium 7.9 mg/dl (8.4-10.2); Carbon Dioxide 29 mmol/L (22.0-30.0); Chloride 105 mmol/L (98-107); Chol/HDL Ratio 2.7 (1-3.5); Cholesterol 133 mg/dl (140-200); Estimated Glomerular Filt Rate 73 ml/min (>60); GFR (African American) 88 ML/MIN (>60); Glucose 77 mg/dl (74-100); HDL Cholesterol 50 mg/dl (40-60); Potassium 4.3 mmoL/L (3.5-5.1); Sodium 138 mmol/L (136-145); Total Protein,Serum 6.9 g/dl (6.3-8.2); Triglycerides 85 mg/dl (30-150); VLDL Cholesterol 17 mg/dL (0-40)
[2023-09-18 12:00] LABS: C-Reactive Protein 10.6 mg/L (0-4); Direct LDL Cholesterol 71.43 mg/dL (100-129)
[2023-09-18 12:07] LABS: 25-OH Vitamin D, Total 100 ng/mL (30-100); Free T4 (Free Thyroxine) 1.05 ng/dl (0.78-2.19)
[2023-09-18 12:22] LABS: Thyroid Stimulating Hormone 7.62 uIU/mL (0.465-4.68)
[2023-09-18 12:41] LABS: Vitamin B12 681 pg/mL (239-931)
[2023-09-19 16:13] LABS: Thyroglobulin Level <1.0 IU/mL (0.0-0.9)
== END ==
PROVIDERS: PCP Nurse Practitioner Family; Visit Provider Hospitalist
DX: C73 Malignant neoplasm of thyroid gland (principal); E89.0 Postprocedural hypothyroidism; E11.69 Type 2 diabetes mellitus with other specified complication; E78.5 Hyperlipidemia, unspecified; E55.9 Vitamin D deficiency, unspecified; Z79.4 Long term (current) use of insulin
CPT/HCPCS: 36415; 80053; 80061; 82306; 82607; 83036; 84439; 84443; 86140; 86800

== ENCOUNTER 2023-10-12 09:45 | Outpatient (CLI) | payer MEDICARE, MEDICAID, SELFPAY ==
[2023-10-12 17:34] LABS: Basophils # 0.1 K/mm3 (0-0.2); Basophils % 0.7 % (0.1-2.0); Eosinophils # 0.1 K/mm3 (0.0-0.4); Eosinophils % 1.2 % (0.1-12.0); Hematocrit 40.3 % (37.0-47.0); Lymphocytes # 2.6 K/mm3 (0.7-4.5); Lymphocytes % 30.1 % (10-50); Mean Corpuscular HGB Conc 32.4 g/dL (31.8-35.4); Mean Corpuscular Volume 83.5 fl (81-99); Mean Platelet Volume 9.1 fl (7.4-10.4); Monocytes # 0.5 K/mm3 (0.1-1.0); Monocytes % 6.2 % (1.7-9.3); Neutrophils # 5.3 K/mm3 (1.8-7.8); Neutrophils % 61.9 % (37.0-80.0); Platelet Count 197 K/mm3 (142-424); Red Blood Count 4.83 M/mm3 (4.20-5.40); Red Cell Distribution Width 15.3 % (11.5-17.5); White Blood Count 8.5 K/mm3 (4.8-10.8)
[2023-10-12 18:00] LABS: Chloride 103 mmol/L (98-107); Sodium 140 mmol/L (136-145)
[2023-10-12 18:01] LABS: Potassium 4.8 mmoL/L (3.5-5.1)
[2023-10-12 18:03] LABS: Alanine Aminotransferase 24 U/L (12-78); Amylase 40 U/L (30-110); Anion Gap 10.8 mEq/L (5-15); Aspartate Amino Transferase 31 U/L (14-36); Blood Urea Nitrogen 19 mg/dl (7-17); Carbon Dioxide 31 mmol/L (22.0-30.0); Estimated Glomerular Filt Rate 64 ml/min (>60); GFR (African American) 77 ML/MIN (>60)
[2023-10-12 18:04] LABS: Albumin Level 4.2 g/dl (3.5-5.0); Albumin/Globulin Ratio 1.4 (1.1-1.8); Alkaline Phosphatase 102 U/L (38-126); Bilirubin,Total 0.5 mg/dl (0.2-1.3); Calcium 8.8 mg/dl (8.4-10.2); Glucose 81 mg/dl (74-100); Lipase 99 U/L (23-300); Total Protein,Serum 7.2 g/dl (6.3-8.2)
== END 2023-10-12 23:59 ==
LOC: LAB.DROPOF 10-13 09:46
PROVIDERS: PCP Nurse Practitioner Family; Visit Provider Nurse Practitioner Family
DX: R10.9 Unspecified abdominal pain (principal); R11.0 Nausea; R39.9 Unspecified symptoms and signs involving the genitourinary system; B95.2 Enterococcus as the cause of diseases classified elsewhere
CPT/HCPCS: 80053; 82150; 83690; 85025; 87086

== ENCOUNTER 2023-10-16 16:06 | Outpatient (CLI) | payer MEDICARE, MEDICAID, SELFPAY ==
--- NOTE | 2023-10-16 16:11 | XR_ITS ---
FINAL REPORT CLINICAL HISTORY: right sided abd pain, hx of kidney stones COMPARISON: None FINDINGS: A single supine view the abdomen was obtained. The bowel gas pattern is nonspecific but nonobstructive. There is a moderate stool burden. There are no pathologic calcifications. Osseous structures are within normal limits. Postoperative changes are noted in the right upper quadrant. IMPRESSION: Nonspecific but nonobstructive bowel gas pattern with a moderate stool burden. Reviewed, Interpreted and Dictated by Boy Bonner III, MD Transcribed by Tianna Means Authenticated and . [facility]
== END 2023-10-16 23:59 ==
LOC: RAD 16:07
PROVIDERS: PCP Nurse Practitioner Family; Visit Provider Nurse Practitioner Family
DX: R10.9 Unspecified abdominal pain (principal); Z87.442 Personal history of urinary calculi
CPT/HCPCS: 74018

== ENCOUNTER 2023-10-23 16:13 | Outpatient (POV) | payer MEDICARE, MEDICAID, SELFPAY | END 2023-10-23 23:59 | disposition home or self-care (01) | LOC: SC 16:14 | PROVIDERS: PCP Nurse Practitioner Family; Visit Provider Dermatology | DX: Z00.00 Encounter for general adult medical examination without abnormal findings (principal) ==

== ENCOUNTER 2023-10-24 09:44 | Observation (INO) | payer MEDICARE, MEDICAID, SELFPAY ==
[2023-10-19 16:39] VITALS: BMI 35.5
[2023-10-24] VITALS (20 sets, daily range): BP systolic 107–132; BP diastolic 55–84; PULSE 66–88; RESP 14–18; TEMP 36.2–37.3; O2SAT 90–98
--- NOTE | 2023-10-24 07:35 | XR_ITS ---
FINAL REPORT CLINICAL HISTORY: preop- flat foot reconstruction today- hx of cardiac stent, htn medication FINDINGS: SINGLE-VIEW CHEST The heart size is normal. The mediastinum is normal. The lungs are clear. There is no pneumothorax. IMPRESSION: No acute cardiopulmonary process. Reviewed, Interpreted and Dictated by Boy Bonner III, MD Transcribed by Charlene Billingsley Authenticated and [facility]
--- NOTE | 2023-10-24 07:46 | ECG_ITS ---
APPROVED REPORT Exam: Resting ECG HR:65 bpm ECG Measurements Heart Rate 65 AXES AL 111 P 33 QRSd 85 QRS 11 QT 405 T 28 QTc 417 Conclusion SINUS RHYTHM WITH SHORT AL INTERVAL LOW QRS VOLTAGE IN PRECORDIAL LEADS [QRS DEFLECTION < 1.0 mV IN CHEST LEADS] NONSPECIFIC T-WAVE ABNORMALITY BORDERLINE ECG UNCONFIRMED REPORT Electronically signed by : Kyle Bay MD 10/24/2023 08:32:50
[2023-10-24] MEDS: LACTATED RINGERS 1000ML 1,000 ML 25 ML IV (07:58)
[2023-10-24 07:59] LABS: POC Glucose,Bedside 162 (70-110)
--- NOTE | 2023-10-24 08:11 | EXP.ANES.CKL ---
[facility] Disclaimer: The information contained in this section may have been updated after the patient was seen, as this information can be updated by other users. Medical History Arthritis Asthma Cholecystectomy planned Diabetes mellitus Diabetes mellitus, type 2 Enlarged lymph nodes Esophageal dilatation Fibromyalgia Hyperlipidemia Hypertension Hypothalamic hypothyroidism Migraine Sleep apnea Thyroid cancer White matter disease Surgical History H/O gastric sleeve History of colonoscopy History of esophagogastroduodenoscopy (EGD) History of heart artery stent Hx of heart artery stent S/P foot surgery, right Family History Mother Diabetes Cancer Father Cancer Hypertension Dementia Grandmother Alzheimer's dementia, late onset Social History Smoking Status: Never smoker alcohol intake: never substance use type: denies use current occupational status: disabled Travel in the last 8 weeks: None household members: family housing: house lives independently: No education level: college service: No caffeine: Yes special ameya needs: No do you feel safe at home: Yes victim of physical abuse: No victim of emotional abuse: No victim of sexual abuse: No would you like helpful sources: No [facility] Anesthesia Checklist Patient Identification Patient Identification: Arm Band Structural Data Admitted From: Home Planned Operative Procedure/s: Left Flat Foot Reconstruction, Triple Arthrodesis Consent for Planned Operative Procedure(s) Verified: Yes Verified Documents: Surgical Consent and History and Physical NPO Status Verified Time NPO: 00:00 Additional verifications Anesthesia Reactions: No Hx Blood Transfusions: No Blood Transfusion Reaction: No Airway Assessment Mallampati Score:: Class II C-Spine Mobility Assessed: Yes TMJ Mobility Assessed: Yes Dentition: Edentulous Anesthesia Plan Anesthesia Risk discussed: Yes Anesthesia Plan: Verified ASA Class: III Anesthesia Type: General w/block (Left Popliteal/Saphenous Nerve Block. Risks/benefits explained. Pt verbalized understanding)
[2023-10-24] MEDS: CEFAZOLIN SODIUM 2 GM in 0.9 % SODIUM CHLORIDE 100 ML IV (09:45)
--- NOTE | 2023-10-24 12:51 | XR_ITS ---
FINAL REPORT CLINICAL HISTORY: FLAT FOOT RECONSTRUCTION 1.4 min 2.31 mGy FINDINGS: FLUOROSCOPY LESS THAN 1 HOUR HISTORY: Fluoroscopy guidance. Fluoroscopic guidance was provided for left foot reconstruction. 4 spot films were obtained. A total of 1.4 minutes of fluoroscopy time were used. Total DAP: 2.31 mGy IMPRESSION: As above. Reviewed, Interpreted and Dictated by Boy Bonner III, MD Transcribed by Linda Simmons Authenticated and [facility]
--- NOTE | 2023-10-24 13:43 | EXP.ANES.I ---
[facility] Anesthesia Record Part I Anesthesia Record I Intake, IV Amount: 1,000 Hydration: Adequate Estimated blood loss (mL): 50 Urine output (mL): 0 Blood Pressure: 109/64 SaO2: 92 Pulse Rate: 88 Airway Patency: Patent Respiratory Rate: 15 Temperature: 98 F Patient is:: Drowsy and Oral/Nasal airway Stable to PACU at:: 13:42
--- NOTE | 2023-10-24 13:49 | XR_ITS ---
FINAL REPORT CLINICAL HISTORY: Post op ankle, triple AD COMPARISON: 04/19/2023 FINDINGS: LEFT ANKLE: Three views of the left ankle were obtained. There are postoperative changes in the left foot and ankle, with a presumed triple arthrodesis, fusing the navicular, cuboid, talus, and calcaneus. There is also a small screw present in the lateral malleolus. A plantar calcaneal spur is present. The patient is seen in orthopedic splint, which somewhat limits overall bony detail. IMPRESSION: Postoperative change in the left ankle, as described. Reviewed, Interpreted and Dictated by Boy Bonner III, MD Transcribed by Tianna Means Authenticated and [facility]
--- NOTE | 2023-10-24 13:50 | XR_ITS ---
FINAL REPORT CLINICAL HISTORY: Post op ankle, triple AD COMPARISON: 04/05/2023 FINDINGS: LEFT FOOT: Three views of the left foot were obtained. Postoperative changes are present in the left foot, with presumed triple arthrodesis fusing the navicular, cuboid, talus, and calcaneus. A splint is present which obscures some detail. A plantar calcaneal spur is identified. IMPRESSION: Postoperative changes, new, or present in the left foot as described. The patient is in a splint, which somewhat obscures bony detail. Reviewed, Interpreted and Dictated by Boy Bonner III, MD Transcribed by Tianna Means Authenticated and [facility]
[2023-10-24 13:55] LABS: POC Glucose,Bedside 213 (70-110)
--- NOTE | 2023-10-24 14:18 | SUR.PHASEI ---
1412 - Attempted to call report to [facility] at this time. RN is w/ another pt at this time and will call back.
--- NOTE | 2023-10-24 14:30 | PC.NURSE ---
arrived by bed from surgery
--- NOTE | 2023-10-24 15:15 | EXP.POD.CONS ---
History of Present Illness *Admission Date: 10/24/23 *Reason for visit:: S/p left ankle/foot surgery *History of present illness: Patient is a 63-year-old female with a past medical history of diabetes, CAD, fibromyalgia who presents for left flatfoot reconstruction with ankle stabilization surgery. Medical clearance per Jeanie Guevara. Had cardiac clearance-Dr Hilton ([place]) pre-op. Patient had an uneventful surgery today. Requested hospitalist for admission for 23-hour observation due to length of anesthesia, request from cardiology for monitoring postoperatively, physical therapy gait training in the a.m. and pain control. [facility] Disclaimer: The information contained in this section may have been updated after the patient was seen, as this information can be updated by other users. Medical History Arthritis Asthma Cholecystectomy planned Diabetes mellitus Diabetes mellitus, type 2 Enlarged lymph nodes Esophageal dilatation Fibromyalgia Hyperlipidemia Hypertension Hypothalamic hypothyroidism Migraine Sleep apnea Thyroid cancer White matter disease Surgical History H/O gastric sleeve History of colonoscopy History of esophagogastroduodenoscopy (EGD) History of heart artery stent Hx of heart artery stent S/P foot surgery, right Family History Father Mother Alzheimer's dementia, late onset Grandmother Diabetes Mother Dementia Father Cancer Mother Father Hypertension Father Social History (Updated 10/24/23 @ 15:20 by Lizzy Verde RN) Smoking Status: Never smoker alcohol intake: never substance use type: denies use current occupational status: disabled Travel in the last 8 weeks: None household members: family housing: house lives independently: No education level: college service: No caffeine: Yes special ameya needs: No do you feel safe at home: Yes victim of physical abuse: No victim of emotional abuse: No victim of sexual abuse: No would you like helpful sources: No Review of Systems Review of Systems Review of systems:: pertinent systems reviewed and negative unless documented below Constitutional Constitutional: Reports system reviewed and no additional complaints, except as documented Eyes Eyes: Reports system reviewed and no additional complaints, except as documented ENT Ears, Nose, Mouth, and Throat: Reports system reviewed and no additional complaints, except as documented *Cardiovascular Cardiovascular: Reports system reviewed and no additional complaints, except as documented *Respiratory Respiratory: Reports system reviewed and no additional complaints, except as documented *Gastrointestinal Gastrointestinal: Reports system reviewed and no additional complaints, except as documented *Genitourinary Genitourinary: Reports system reviewed and no additional complaints, except as documented *Musculoskeletal Musculoskeletal: Reports system reviewed and no additional complaints, except as documented Integumentary/Breasts Skin/Breast: Reports system reviewed and no additional complaints, except as documented *Neurologic Neurologic: Reports system reviewed and no additional complaints, except as documented Psychiatric Psychiatric: Reports system reviewed and no additional complaints, except as documented Endocrine Endocrine: Reports system reviewed and no additional complaints, except as documented Hematologic/Lymphatic Hematologic/Lymphatic: Reports system reviewed and no additional complaints, except as documented Allergic/Immunologic Allergic/Immunologic: Reports system reviewed and no additional complaints, except as documented Meds Home Medications and Allergies Home Medications Medication Instructions Recorded Confirmed Type aspirin 81 mg tablet,delayed 81 mg PO DAILY prevention 12/01/20 10/24/23 History release epinephrine 0.3 mg/0.3 mL 0.3 mg IM Q5-15M PRN Allergy 12/01/20 10/24/23 History injection, auto-injector (EpiPen) Symptoms isosorbide mononitrate 30 mg 30 mg PO DAILY HTN 12/01/20 10/24/23 History tablet,extended release 24 hr meloxicam 15 mg tablet 15 mg PO DAILY Pain 12/01/20 10/24/23 History montelukast 10 mg tablet 10 mg PO DAILY allergies 12/01/20 10/24/23 History levocetirizine 5 mg tablet 5 mg PO DAILY allergies 03/06/23 10/24/23 History metoprolol succinate 50 mg 50 mg PO DAILY HTN 03/06/23 10/24/23 History tablet,extended release 24 hr glimepiride 4 mg tablet 4 mg PO DAILY Diabetes 04/05/23 10/24/23 History albuterol sulfate 90 mcg/actuation 2 inh inhalation Q4-6H Asthma 07/02/23 10/24/23 History aerosol inhaler (ProAir HFA) dulaglutide 3 mg/0.5 mL 1 mg SQ DAILY Diabetes 07/02/23 10/24/23 History subcutaneous pen injector (Trulicity) ergocalciferol (vitamin D2) 1,250 50,000 unit PO .twice a week 07/02/23 10/24/23 History mcg (50,000 unit) capsule evolocumab 140 mg/mL subcutaneous 140 mg SQ .twice a month diabetess 07/02/23 10/24/23 History pen injector (pippafatou BermudezCristoferviry) fluticasone propionate 110 2 inh inhalation BID 07/02/23 10/24/23 History mcg/actuation HFA aerosol inhaler (Flovent HFA) fluticasone propionate 50 2 spray intranasal BID allergies 07/02/23 10/24/23 History mcg/actuation nasal spray,suspension ketotifen fumarate 0.025 % (0.035 1 drp ophthalmic (eye) BID 07/02/23 10/24/23 History %) eye drops (Zaditor) pantoprazole 40 mg tablet,delayed 40 mg PO DAILY 90 days #90 tabs 07/02/23 10/24/23 Rx release sumatriptan succinate 100 mg See Rx Instructions PO .COMPLEX 07/02/23 10/24/23 History tablet (Imitrex) insulin degludec 100 unit/mL (3 58 unit SQ DAILY Diabetes 08/01/23 10/24/23 History mL) subcutaneous pen (Tresiba FlexTouch U-100 insulin) losartan 50 mg tablet 50 mg PO BID htn 08/01/23 10/24/23 History tizanidine 4 mg tablet See Rx Instructions .Route 09/05/23 10/24/23 Rx .COMPLEX #90 tabs ondansetron 4 mg disintegrating See Rx Instructions .Route 09/06/23 10/24/23 Rx tablet .COMPLEX #30 tabs levothyroxine 150 mcg tablet 150 mcg PO DAILY 90 days #90 tabs 10/12/23 10/24/23 Rx venlafaxine 75 mg capsule,extended 75 mg PO DAILY 30 days #30 caps 10/12/23 10/24/23 Rx release 24 hr gabapentin 300 mg capsule 300 mg PO TID PRN nerve pain 10 10/16/23 10/24/23 Rx days #30 caps ketorolac 10 mg tablet 10 mg PO Q6H PRN pain 5 days #20 10/16/23 10/24/23 Rx tabs ondansetron 4 mg disintegrating 4 mg PO Q6H nausea and vomiting 10/16/23 10/24/23 Rx tablet #30 tabs oxycodone 10 mg tablet 10 mg PO Q4-6H PRN severe pain 1 10/16/23 10/24/23 Rx week #42 tabs scopolamine base 1 mg over 3 days 1 patch transdermal Q3D PRN nausea 10/16/23 10/24/23 Rx transdermal patch and vomiting #4 ea dulaglutide 3 mg/0.5 mL 3 mg SQ WEEKLY 10/24/23 10/24/23 History subcutaneous pen injector (Trulicity) fluticasone furoate 100 1 inh inhalation DAILY 10/24/23 10/24/23 History mcg/actuation blister powder for inhalation (Arnuity Ellipta) New Prescriptions to Start Prescriptions: Allergies Allergy/AdvReac Type Severity Reaction Status Date / Time codeine [CODEINE] Allergy Unknown I-ITCHING Verified 10/19/23 16:30 metformin [METFORMIN] Allergy Unknown HIVES, SOA Verified 10/19/23 16:30 pioglitazone [From ACTOS] Allergy Unknown SOA, HIVES Verified 10/19/23 16:30 gabapentin Allergy Verified 10/19/23 16:30 metformin Allergy Mild Gastrointestinal Uncoded 10/12/23 15:18 Upset Exam (Inpt) Vital signs and Labs for Last 24 Hours: Temp Pulse Resp BP Pulse Ox O2 Del Method O2 Flow Rate 97.6 F 82 16 130/72 92 L Room Air 4 10/24/23 14:22 10/24/23 14:22 10/24/23 14:22 10/24/23 14:22 10/24/23 14:22 10/24/23 14:22 10/24/23 13:52 Laboratory Results - last 24 hr 10/24/23 07:48: POC Glucose 162 H 10/24/23 13:48: POC Glucose 213 H I & O for Labs for Last 24 Hours: Intake & Output 10/22/23 10/23/23 10/24/23 10/25/23 11:59 11:59 11:59 11:59 Intake Total 1000 / 1000 Output Total 300 / 300 Balance 700 / 700 Constitutional: Present no acute distress and obese Head: Present normocephalic Neck: Present normal inspection Respiratory: Present normal respiratory effort Cardiac: Present Regular Rate, posterior tibial pulses present and pedal pulses present GI: Present soft Rectal (female): Present deferred (female): Present deferred Extremities: Present normal inspection, full ROM and normal capillary refill Comment:: Left lower extremity splint clean dry and intact. CFT WNL. Polar pack behind the left knee. Skin: Present intact Neuro: Present Motor Function Intact and moves all extremities; Absent Sensory Function Intact (Secondary to popliteal nerve block) Ankle: left: decreased ROM (Secondary to surgery) and bilateral: normal inspection Feet/Toes: bilateral: normal inspection Pulses: L dorsalis pedis pulse: normal, R dorsalis pedis pulse: normal, L posterior tibial pulse: normal and R posterior tibial pulse: normal CFT: normal: CFT Results Labs Labs: Abnormal lab results 10/24/23 10/24/23 Range/Units 07:48 13:48 POC Glucose 162 H 213 H (70-110) All other labs normal. Diagnostic results Ankle/Foot x-ray: report reviewed and image reviewed Ankle/Foot MRI: report reviewed and image reviewed Assessment and Plan *Assessment and plan (1) Postoperative pain of extremity: Status: Acute Category: Medical Code(s): G89.18 - Other acute postprocedural pain; M79.609 - Pain in unspecified limb (2) Status post left foot surgery: Status: Acute Category: Surgical Code(s): Z98.890 - Other specified postprocedural states (3) Diabetes mellitus: Status: Acute Qualifiers: Diabetes mellitus complication detail: with polyneuropathy Diabetes mellitus complication status: with neurologic complications Diabetes mellitus fci insulin use: with fci use Diabetes mellitus type: type 2 Qualified Code(s): E11.42 - Type 2 diabetes mellitus with diabetic polyneuropathy; 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 transplanted heart: unspecified whether [place] or transplanted heart Qualified Code(s): I25.118 - Atherosclerotic heart disease of [place] coronary artery with other forms of angina pectoris Category: Medical Code(s): I25.10 - Atherosclerotic heart disease of [place] coronary artery without angina pectoris Plan Surgery, 10/24/2023: s/p left triple arthrodesis, lateral ankle stabilization 10/24/23, 3v left foot and ankle reviewed. Hardware stable with no concerns on x-rays. DOS: -Discussed with hospitalist for admission, 23-hour observation. -Podiatry consult for post op LLE orders. -Maintain dressing clean dry and intact to the right lower extremity. -Nonweightbearing to LLE with DME. Patient has walker, RKS, wheelchair. -Polar pack/Cryo Cuff behind the left knee. -Elevate on 2 pillows or foam ramp. -SCD and DVT prophylaxis to RLE. -Plan for meds to bed and PT gait training POD #1. -Was holding aspirin and mobic, resume post op. Discussed DVT/PE. No personal hx. Discussed aspirin vs Lovenox. -eRx previously given for scop patch. -Post op meds: oxy 10mg, gabapentin 300mg (said she can do for short term uses but has side effects with long-term use, not true allergy), ketorolac, zofran. -Plan for varner d/c in am prior to PT session. -Plan for likely discharge home tomorrow.
--- NOTE | 2023-10-24 15:27 | P.OP_ITS ---
Date of procedure: 10/24/23 Pre-op Diagnosis:: Left ankle instability Left flatfoot/pes planus deformity Left PTTD Left ankle synovitis Left foot/ankle pain Left foot retained orthopedic hardware Post-op Diagnosis:: Same Procedure performed:: Left flatfoot reconstruction Left triple arthrodesis (01451) Left lateral ankle stabilization (82295) Left ankle synovectomy Left peroneal tenosynovectomy Left foot hardware removal Application of allograft Application of posterior splint Surgeon:: Cori Soria DPM HISTORIAN RESEARCH ASSISTANT:: Zbigniew Evangelista Anesthesia: GETA and regional (Left popliteal nerve block) Estimated blood loss (mL): 40 Clinical Note:: Patient is a 63-year-old diabetic female who presents with continued pain and deformity resulting from flatfoot. She has had right flatfoot surgery with a calcaneal osteotomy in the past. History of left PT tendon tear and rupture with repair 04/05/2023. At that time A1c was 8.9%. Discussed doing flatfoot reconstruction once A1c was better controlled. A1c currently 6.8% conservative care has failed including modification of shoe gear, modification of activity, taping, strapping, inserts, ice, elevation, and NSAIDs, prior surgery, ankle bracing, and physical therapy. After a long discussion with the patient in regards to the conservative versus surgical treatment for the arthritic flatfoot deformity, the patient has elected to proceed with surgery. Discussed triple arthritis, ankle stabilization as needed, RAZA. The patient has been instructed on the planned procedure, all risk versus benefits of the procedure discussed. These include but are not limited to: bleeding, infection, nerve and blood vessel damage, need for further surgery, delay in healing of soft tissue or bone, failure of bones to heal, non-union, mal-union, failure of the implant, prolonged pain and recovery, prolonged edema, recurrent deformity, adjacent joint arthritis, CRPS/RSD, DVT/PE and anesthetic complications including . Discussed increased risk of Charcot due to diabetes and neuropathy. No guarantees were given. All questions fully answered. The patient verbalized understanding and agreed to proceed with surgery. Written consent was obtained. Operative findings:: Left foot had prior posterior tibial tendon repair with well-healed surgical scar. There is a retained bone anchor at the level of the medial navicular from prior surgery. The bone anchor was removed successfully without complication. Stage IV PTTD, flatfoot deformity. The ankle had minor arthritic changes with synovitis noted. Synovitis debrided. No signs of osteochondral defect to the talus. The talus medially was uncovered with soft bone and minimal cartilage medially. Laterally the talonavicular joint had sclerotic hard arthritic bone. The subtalar joint had cartilage wear with cortical erosion consistent with significant arthritis. Arthritic changes to the calcaneocuboid joint. No signs of infection. Post ankle stabilization and triple arthrodesis the ankle had good range of motion with the ankle able to get to neutral, no RAZA performed. Operative note:: On this date and time patient was deemed an appropriate surgical candidate. W ith informed consent signed, the patient was taken to the operating theater after regional nerve block. The patient was positioned supine. General anesthesia was induced. Tourniquet was applied to the left thigh. The left lower extremity was prepped and draped in normal sterile fashion. IV Ancef infused. Left triple arthrodesis, peroneal tenosynovectomy, hardware removal: Attention was directed to the medial foot where incision was marked out from medial to the TA tendon to the navicular. Full-thickness dissection with care to maintain surgical hemostasis infiltrate neurovascular structures. The talonavicular joint was identified noted to be significantly arthritic. There was a bone anchor noted to the medial navicular from prior PT repair/Kidner procedure. The bone anchor was removed in total without complication. The damaged and remaining cartilage was resected in standard technique with a combination of saw, osteotome and curette down to the level good healthy bleeding bone. Wound was flushed with saline. Attention was then directed to the lateral aspect of the foot where an incision was made from the distal fibula extending to the cuboid. Full-thickness dissection, safely retracting neurovascular structures. Peroneal tendons were identified, no tears noted. There are some peroneal tenosynovitis which were sharply debrided with a 15 blade then the tendons were safely retracted inferiorly throughout the procedure. The calcaneocuboid joint was noted to be sclerotic with arthritic spurring noted dorsally on the calcaneus. Subtalar joint was identified and noted to have significant cartilage wear with restriction of range of motion. The CC and ST joints were prepared for joint fusion by removing the cartilage down to level of good healthy bleeding bone. W ound was flushed with saline. Next the joints of the triple arthrodesis were prepared by fenestration. Allograft was then inserted at the level of the joints. The deformity was reduced and temporarily fixated, confirmed with intraoperative fluoroscopy. Next in standard technique a 7.0 mm cannulated beams screw was inserted from inferior to superior on the calcaneus into the talus. Adequate compression noted across the subtalar joint. At the level of the TNJ, there was a defect noted medially from the significant deformity plus defect in the talus bone upon joint preparation. The defect was filled with allograft including Tensix and [place] fibers. Next the talonavicular joint was reduced and fixated with 4.0 mm cannulated screw x 2 in standard technique. Adequate compression noted. There was some arthritic spurring noted on the dorsal aspect of the CC joint. Rongeur and power rasp were used to remove the arthritic prominences. Next the calcaneocuboid joint was reduced and fixated in standard technique with a staple. Intraoperative fluoroscopy was utilized to confirm reduction and position of fixation. It was deemed to be appropriate on AP, MO, lateral and calcaneal axial views. Left ankle synovectomy: The previous lateral foot incision was then extended proximally. Ankle joint was identified. There is synovitis in the ankle which was resected with a 15 blade, forceps and rongeur. Ankle was flushed with saline. Some mild early arthritic changes but no significant defects or osteochondral lesions identified. Left lateral ankle stabilization (modified Brostr?m): Preoperatively there is ankle instability. Post triple arthrodesis there is still a positive anterior drawer noted. The ATFL and CFL were attenuated and torn. A Vigix bone anchor was then inserted into the distal fibula. The ATFL and CFL were then repaired with a suture. The foot was held in a dorsiflexed and everted position during the repair. The extensor retinaculum was incorporated into the repair. Due to the amount of attenuation to the ligaments, a piece of graft with cut and laid over the ligaments to reinforce the repair. Wounds were flushed with saline. Post repair, negative anterior drawer and negative talar tilt. Application of allograft, application of posterior splint: The remaining piece of the amniotic allograft was inserted medially over prior fibrotic scar tissue secondary to prior surgery. Graft applied to help prevent wound dehiscence, tissue adhesion and scarring. Deep and subcutaneous tissue was repaired with Vicryl. Inferior calcaneal skin repaired with nylon and a Shun guard to prevent wound dehiscence. Tourniquet was deflated at 2 hours and 15 minutes and immediate hyperemic response was noted to the digits. Bleeding controlled. Skin repaired with nylon and skin danna. There was minimal swelling so no NICHOLAS drain was used. Next skin was cleansed. Xeroform and a Betadine soaked gauze was applied to the incisions followed by dry sterile dressing and a left below- knee posterior splint. Patient was transferred to recovery vital signs stable neurovascular status intact to be transferred to the floor for 23-hour observation. Patient appeared to tolerate procedure and anesthesia well without complications. Materials: Vigix 3.5mm bone anchor, 7.0 mm cannulated beam screw x 2, 4.0 mm cannulated screw x 2, [place] 20 mm staple x 1, Augment x1, Tensix x1 (10cc), [place] fibers x1 (5cc), [place] graft x1 (4x3cm) Plan: Discussed with hospitalist for admission, 23-hour observation. Maintain dressing clean dry and intact to the right lower extremity. Nonweightbearing to LLE with walker, RKS, wheelchair. Polar pack behind the left knee. Elevate on 2 pillows. Plan for Zamudio DC in the morning prior to PT session. Barring any com plications, plan for likely discharge home tomorrow. Tourniquet time (min): 139 Condition: stable Disposition: observation Complications:: None
[2023-10-24] MEDS: HEPARIN SODIUM 5,000 UNIT/ML VIAL 5000 UNIT SQ ×2 (15:55→22:43)
--- NOTE | 2023-10-24 15:56 | HMH.PHAINT1 ---
Pharmacy Intervention Comments: Home med list verified with patient and daughter at bedside and with external pharmacy list.
[2023-10-24] MEDS: humaLOG 100 UNITS/ML 3ML VIAL (SSI) SQ ×2 (17:03→21:02)
[2023-10-24 17:17] LABS: POC Glucose,Bedside 204 (70-110)
--- NOTE | 2023-10-24 17:54 | P.HP_ITS ---
History of Present Illness *Admission Date: 10/24/23 *History of present illness: Patient is a 63-year-old female after bariatric procedure. Patient tolerated procedure well, patient denies any acute events, complaints before or during the procedure. Patient denies chest pain shortness of breath nausea vomiting diarrhea constipation dysuria fever chills. Patient mentions she has pain at the site of surgery. Patient was further admitted to the hospital for observation and possible placement and PT/OT evaluation. [facility] Disclaimer: The information contained in this section may have been updated after the patient was seen, as this information can be updated by other users. Medical History Arthritis Asthma Cholecystectomy planned Diabetes mellitus Diabetes mellitus, type 2 Enlarged lymph nodes Esophageal dilatation Fibromyalgia Hyperlipidemia Hypertension Hypothalamic hypothyroidism Migraine Sleep apnea Thyroid cancer White matter disease Surgical History H/O gastric sleeve History of colonoscopy History of esophagogastroduodenoscopy (EGD) History of heart artery stent Hx of heart artery stent S/P foot surgery, right Family History Father Mother Alzheimer's dementia, late onset Grandmother Diabetes Mother Dementia Father Cancer Mother Father Hypertension Father Social History (Updated 10/24/23 @ 15:20 by Lizzy Verde RN) Smoking Status: Never smoker alcohol intake: never substance use type: denies use current occupational status: disabled Travel in the last 8 weeks: None household members: family housing: house lives independently: No education level: college service: No caffeine: Yes special ameya needs: No do you feel safe at home: Yes victim of physical abuse: No victim of emotional abuse: No victim of sexual abuse: No would you like helpful sources: No Review of Systems Review of Systems Review of systems (narrative): as per hpi *Neurologic Neurologic: Reports system reviewed and no additional complaints, except as documented Meds Home Medications and Allergies Home Medications Medication Instructions Recorded Confirmed Type aspirin 81 mg tablet,delayed 81 mg PO DAILY 12/01/20 10/24/23 History release epinephrine 0.3 mg/0.3 mL 0.3 mg IM Q5-15M PRN Allergy 12/01/20 10/24/23 History injection, auto-injector (EpiPen) Symptoms isosorbide mononitrate 30 mg 30 mg PO DAILY 12/01/20 10/24/23 History tablet,extended release 24 hr meloxicam 15 mg tablet 15 mg PO PM 12/01/20 10/24/23 History montelukast 10 mg tablet 10 mg PO PM 12/01/20 10/24/23 History levocetirizine 5 mg tablet 5 mg PO AM 03/06/23 10/24/23 History metoprolol succinate 50 mg 50 mg PO PM 03/06/23 10/24/23 History tablet,extended release 24 hr glimepiride 4 mg tablet 4 mg PO DAILY 04/05/23 10/24/23 History albuterol sulfate 90 mcg/actuation 2 inh inhalation Q4-6H PRN 07/02/23 10/24/23 History aerosol inhaler (ProAir HFA) Shortness Of Breath ergocalciferol (vitamin D2) 1,250 50,000 unit PO .TWICE A WEEK 07/02/23 10/24/23 History mcg (50,000 unit) capsule evolocumab 140 mg/mL subcutaneous 140 mg SQ QOW 07/02/23 10/24/23 History pen injector (Lopez Burger) fluticasone propionate 50 2 spray intranasal BID PRN 07/02/23 10/24/23 History mcg/actuation nasal Allergies spray,suspension ketotifen fumarate 0.025 % (0.035 1 drp ophthalmic (eye) BID 07/02/23 10/24/23 History %) eye drops (Zaditor) pantoprazole 40 mg tablet,delayed 40 mg PO DAILY 90 days #90 tabs 07/02/23 10/24/23 Rx release insulin degludec 100 unit/mL (3 58 unit SQ DAILY 08/01/23 10/24/23 History mL) subcutaneous pen (Tresiba FlexTouch U-100 insulin) losartan 50 mg tablet 50 mg PO BID 08/01/23 10/24/23 History levothyroxine 150 mcg tablet 150 mcg PO DAILY 90 days #90 tabs 10/12/23 10/24/23 Rx venlafaxine 75 mg capsule,extended 75 mg PO DAILY 30 days #30 caps 10/12/23 10/24/23 Rx release 24 hr dulaglutide 3 mg/0.5 mL 3 mg SQ WEEKLY 10/24/23 10/24/23 History subcutaneous pen injector (Trulicity) fluticasone propionate 110 2 puff inhalation BID 10/24/23 10/24/23 History mcg/actuation HFA aerosol inhaler gabapentin 300 mg capsule 300 mg PO TID PRN Nerve pain 10/24/23 10/24/23 History ketorolac 10 mg tablet 10 mg PO Q6H PRN Pain (Scale Score 10/24/23 10/24/23 H istory 4-6) ondansetron 4 mg disintegrating 4 mg PO Q6H PRN Nausea And Vomiting 10/24/23 10/24/23 History tablet oxycodone 10 mg tablet 10 mg PO Q4-6H PRN Severe Pain 10/24/23 10/24/23 History (Scale Score 7-10) scopolamine base 1 mg over 3 days 1 patch transdermal Q3D PRN Nausea 10/24/23 10/24/23 History transdermal patch And Vomiting sucralfate 1 gram tablet 1 g PO TIDWMEAL 10/24/23 10/24/23 History tizanidine 4 mg tablet 4 mg PO TID PRN Muscle Pain 10/24/23 10/24/23 History New Prescriptions to Start Prescriptions: Allergies Allergy/AdvReac Type Severity Reaction Status Date / Time codeine [CODEINE] Allergy Unknown I-ITCHING Verified 10/19/23 16:30 metformin [METFORMIN] Allergy Unknown HIVES, SOA Verified 10/19/23 16:30 pioglitazone [From ACTOS] Allergy Unknown SOA, HIVES Verified 10/19/23 16:30 gabapentin Allergy Verified 10/19/23 16:30 metformin Allergy Mild Gastrointestinal Uncoded 10/12/23 15:18 Upset Exam Data for Last 24 hours Vital signs and Labs for Last 24 Hours: Temp Pulse Resp BP Pulse Ox O2 Del Method O2 Flow Rate 98.5 F 66 18 129/62 92 L Room Air 4 10/24/23 17:00 10/24/23 17:00 10/24/23 17:00 10/24/23 17:00 10/24/23 17:00 10/24/23 17:00 10/24/23 13:52 Laboratory Results - last 24 hr 10/24/23 07:48: POC Glucose 162 H 10/24/23 13:48: POC Glucose 213 H 10/24/23 17:01: POC Glucose 204 H I & O for Last 24 hours: Intake & Output 10/21/23 10/22/23 10/23/23 10/24/23 23:59 23:59 23:59 23:59 Intake Total 1000 / 1000 Output Total 425 / 425 Balance 575 / 575 Constitutional Constitutional: no acute distress *Routine HEENT Exam Head: Present normocephalic Eye: Present EOMI and PERRL ENT: Present mucous membranes moist *Routine Neck Exam Neck: Present supple; Absent lymphadenopathy *Routine Respiratory Exam Respiratory: Present CTA bilaterally *Routine Cardiovascular Exam Cardiovascular: Present RRR *Routine Abdominal Exam Abdominal: Present soft and normoactive bowel sounds; Absent tenderness *Routine Rectal Exam Rectal:: deferred *Routine Genitalia Exam Genitalia:: deferred *Routine Extremities Exam Extremities: Absent cyanosis, clubbing or edema Comments: left leg covered in dressing *Routine Skin Exam Skin: Present warm; Absent rash *Routine Neurological Exam Neurological: Present alert and oriented X3 Assessment and Plan *Assessment and plan (1) Postoperative pain of extremity: Status: Acute Category: Medical Code(s): G89.18 - Other acute postprocedural pain; M79.609 - Pain in unspecified limb (2) Status post left foot surgery: Status: Acute Category: Surgical Code(s): Z98.890 - Other specified postprocedural states (3) Diabetes mellitus: Status: Acute Qualifiers: Diabetes mellitus complication detail: with polyneuropathy Diabetes mellitus complication status: with neurologic complications 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 transplanted heart: unspecified whether [place] or transplanted heart Qualified Code(s): I25.118 - Atherosclerotic heart disease of [place] coronary artery with other f orms of angina pectoris Category: Medical Code(s): I25.10 - Atherosclerotic heart disease of [place] coronary artery without angina pectoris Plan Patient is a 63-year-old female after bariatric procedure. Patient tolerated procedure well, patient denies any acute events, complaints before or during the procedure. Patient denies chest pain shortness of breath nausea vomiting diarrhea constipation dysuria fever chills. Patient mentions she has pain at the site of surgery. Patient was further admitted to the hospital for observation and possible placement and PT/OT evaluation. Assessment S/p left ankle arthrodesis Diabetes mellitus CAD Obesity Degenerative arthritis Plan S/p surgery, podiatry following Consult PT/OT Pain control check CBC, BMP Monitor and replace electrolytes DVT prophylaxis ordered Insulin sliding scale Resume home medications including gabapentin, Oxy
[2023-10-24] MEDS: KETOROLAC 30MG/ML VIAL 30 MG IV (18:23)
[2023-10-24] MEDS: SUCRALFATE 1GM TABLET 1 GM PO (18:23)
[2023-10-24] MEDS: CEFAZOLIN SODIUM 1 GM in 0.9 % SODIUM CHLORIDE 50 ML IV (18:23)
[2023-10-24 20:30] LABS: POC Glucose,Bedside 323 (70-110)
[2023-10-24] MEDS: METOPROLOL SUCCINATE XL 50MG TABLET 50 MG PO (21:05)
[2023-10-24] MEDS: MONTELUKAST SODIUM 10MG TAB 10 MG PO (21:29)
[2023-10-24] MEDS: IRBESARTAN 75MG TABLET 75 MG PO (21:29)
[2023-10-25] VITALS: BP 115/57; PULSE 64; RESP 16; TEMP 36.6; O2SAT 99
[2023-10-25] MEDS: KETOROLAC 30MG/ML VIAL 30 MG IV ×2 (00:48→06:36)
[2023-10-25] MEDS: CEFAZOLIN SODIUM 1 GM in 0.9 % SODIUM CHLORIDE 50 ML IV ×2 (00:48→09:07)
[2023-10-25 04:00] VITALS: BP 107/57; PULSE 63; RESP 16; TEMP 36.7; O2SAT 93; BMI 35.3
--- NOTE | 2023-10-25 04:36 | PC.NURSE ---
Pt is alert and oriented x4. Pt is not weight bearing and varner remains anchored. Pt has slept well this shift and has been treated per scheduled medications, has not C/O pain otherwise. Pt left foot is dressed in 4x4's, ABD pad, and betzaida bandage, dressing is clean and remains in place. Pt has required insulin coverage this shift. Pt denies pain and needs at this time.
[2023-10-25 05:10] LABS: POC Glucose,Bedside 150 (70-110)
[2023-10-25 06:27] LABS: Basophils % 0.3 % (0.1-2.0); Eosinophils % 0.1 % (0.1-12.0); Hematocrit 34.1 % (37.0-47.0); Hemoglobin 11.3 g/dL (12.2-16.2); Lymphocytes # 1.8 K/mm3 (0.7-4.5); Lymphocytes % 16.9 % (10-50); Mean Corpuscular HGB Conc 33.2 g/dL (31.8-35.4); Mean Corpuscular Hemoglobin 27.4 pg (27.0-31.2); Mean Corpuscular Volume 82.6 fl (81-99); Mean Platelet Volume 8.5 fl (7.4-10.4); Monocytes # 0.7 K/mm3 (0.1-1.0); Monocytes % 6.1 % (1.7-9.3); Neutrophils # 8.2 K/mm3 (1.8-7.8); Neutrophils % 76.6 % (37.0-80.0); Platelet Count 164 K/mm3 (142-424); Red Blood Count 4.12 M/mm3 (4.20-5.40); Red Cell Distribution Width 15.6 % (11.5-17.5); White Blood Count 10.7 K/mm3 (4.8-10.8)
[2023-10-25] MEDS: SUCRALFATE 1GM TABLET 1 GM PO (06:35)
[2023-10-25] MEDS: HEPARIN SODIUM 5,000 UNIT/ML VIAL 5000 UNIT SQ (06:36)
[2023-10-25 06:45] LABS: Magnesium 1.8 mg/dl (1.6-2.3)
[2023-10-25 06:46] LABS: Alanine Aminotransferase 22 U/L (12-78); Albumin Level 3.4 g/dl (3.5-5.0); Albumin/Globulin Ratio 1.2 (1.1-1.8); Alkaline Phosphatase 93 U/L (38-126); Aspartate Amino Transferase 31 U/L (14-36); Bilirubin,Total 0.4 mg/dl (0.2-1.3); Blood Urea Nitrogen 25 mg/dl (7-17); Calcium 7.7 mg/dl (8.4-10.2); Carbon Dioxide 29 mmol/L (22.0-30.0); Chloride 102 mmol/L (98-107); Creatinine Clearance Estimated 88 mL/min (50-200); Estimated Glomerular Filt Rate 56 ml/min (>60); GFR (African American) 68 ML/MIN (>60); Globulin 2.9 g/dL (1.3-3.2); Glucose 162 mg/dl (74-100); Sodium 138 mmol/L (136-145); Total Protein,Serum 6.3 g/dl (6.3-8.2)
--- NOTE | 2023-10-25 07:31 | P.PNANES_ITS ---
[facility] Anesthesia Record Part II Anesthesia Record Part II Discharge Time: 14:22 Destination: Medical Surgical Department PACU nurse assessment reviewed?: Yes Patient Condition:: Good Anesthesia Complications:: None Swallowing reflex intact?: Yes Airway Patency: Patent Cyanosis?: No Blood Pressure: 130/72 SaO2: 92 Respiratory Rate: 16 Pulse Rate: 82 Temperature: 97.6 F Mental Status: Alert & Oriented Pain level:: 0 Nausea and/or vomitting:: None Intake, IV Amount: 0 Hydration: Adequate
[2023-10-25 07:32] VITALS: BP 130/72; PULSE 82; RESP 16; TEMP 36.4; O2SAT 92
[2023-10-25 08:00] VITALS: BP 117/48; PULSE 67; RESP 16; TEMP 36.8; O2SAT 95
--- NOTE | 2023-10-25 08:18 | EXP.ORTH.PN ---
Subjective *Date: 10/25/23 *Time: 08:18 Interval history: Patient is resting comfortably in bed. She underwent left triple arthrodesis and ankle stabilization surgery yesterday. She denies pain. Nerve block still in place. Denies any issues overnight. Ortho Exam (Inpt) Vital signs and Labs for Last 24 Hours: Temp Pulse Resp BP Pulse Ox O2 Del Method O2 Flow Rate 98.2 F 67 16 117/48 L 95 Room Air 4 10/25/23 08:00 10/25/23 08:00 10/25/23 08:00 10/25/23 08:00 10/25/23 08:00 10/25/23 08:00 10/24/23 13:52 Laboratory Results - last 24 hr 10/24/23 13:48: POC Glucose 213 H 10/24/23 17:01: POC Glucose 204 H 10/24/23 19:53: POC Glucose 323 H* 10/25/23 05:00: POC Glucose 150 H 10/25/23 05:33: WBC 10.7, RBC 4.12 L, Hgb 11.3 L, Hct 34.1 L, MCV 82.6, MCH 27.4, MCHC 33.2, RDW 15.6, Plt Count 164, MPV 8.5, Neut % (Auto) 76.6, Lymph % (Auto) 16.9, [place] % (Auto) 6.1, Eos % (Auto) 0.1, Baso % (Auto) 0.3, Neut # (Auto) 8.2 H, Lymph # (Auto) 1.8, [place] # (Auto) 0.7, Eos # (Auto) 0.0, Baso # (Auto) 0.0, Sodium 138, Potassium 4.0, Chloride 102, Carbon Dioxide 29, Anion Gap 11.0, BUN 25 H, Creatinine 1.00, Estimated Creat Clear 88, Estimated GFR 56 L, Est GFR ( Amer) 68, Glucose 162 H, Calcium 7.7 L, Magnesium 1.8, Total Bilirubin 0.4, AST 31, ALT 22, Alkaline Phosphatase 93, Total Protein 6.3, Albumin 3.4 L, Globulin 2.9, Albumin/Globulin Ratio 1.2 I & O for Labs for Last 24 Hours: Intake & Output 10/22/23 10/23/23 10/24/2324 11:59 11:59 11:59 11:59 Intake Total 1949 / 1949 Output Total 1075 / 1075 Balance 875 / 875 Weight 207 lb 0.013 oz Constitutional: Present no acute distress Head: Present normocephalic Neck: Present normal inspection Respiratory: Present normal respiratory effort Cardiac: Present posterior tibial pulses present and pedal pulses present GI: Present soft Rectal (female): Present deferred (female): Present deferred Extremities: Present normal inspection, normal capillary refill and edema Comment:: Left lower extremity splint/dressing clean dry and intact. Polar pack in place. Nerve block still intact?unable to wiggle the toes and decree sensation secondary to block. No calf or thigh pain bilateral. 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: with senior living use Diabetes mellitus complication status: with neurologic complications Diabetes mellitus complication detail: with polyneuropathy Qualified Code(s): E11.42 - Type 2 diabetes mellitus with diabetic polyneuropathy; Z79.4 - termite helper (current) use of insulin Category: Medical Code(s): E11.9 - Type 2 diabetes mellitus without complications (4) Obesity, Class II, BMI 35-39.9: Status: Acute Category: Medical Code(s): E66.9 - Obesity, unspecified (5) CAD (coronary artery disease): Status: Acute Qualifiers: Coronary Disease-Associated Artery/Lesion type: unspecified vessel or lesion type [place] vs. transplanted heart: unspecified whether three [place] or transplanted heart Associated angina: with stable angina Qualified Code(s): I25.118 - Atherosclerotic heart disease of [place] coronary artery with other forms of angina pectoris Category: Medical Code(s): I25.10 - Atherosclerotic heart disease of three [place] coronary artery without angina pectoris Plan Surgery, 10/24/2023: s/p left triple arthrodesis, lateral ankle stabilization 10/24/23, 3v left foot and ankle reviewed. Hardware stable with no concerns on x-rays. 10/25/23, POD#1 -Patient resting comfortably, denies any overnight issues. -Discussed IntraOp findings and postop plan. -Maintain dressing clean dry and intact to the right lower extremity. -NWB to LLE. Patient has walker, RKS, wheelchair, potty chair. -Polar pack/Cryo Cuff behind the left knee. -Elevate on 2 pillows or foam ramp. -SCD and DVT ppx. Discussed risk of DVT/PE and S&S. Has hx of GI bleed. Discussed Lovenox but will hold and resume aspirin today. -eRx previously given for scop patch, oxy 10mg, gabapentin 300mg, ketorolac, zofran. -Plan for varner d/c in am prior to PT session. -Stable from podiatry standpoint for discharge home today per hospitalist. -Has f/u scheduled for next week.
[2023-10-25] MEDS: FLUTICASONE HFA 110MCG INHALER 2 PUFF IH (08:51)
[2023-10-25 08:52] VITALS: O2SAT 93
[2023-10-25] MEDS: LORATADINE 10MG TABLET 10 MG PO (09:05)
--- NOTE | 2023-10-25 09:51 | HMH.PTEV ---
Physical Therapy Evaluation Rehab PT IP Evaluation Start: 10/24/23 13:45 Freq: ONCE Status: Active Protocol: Document 10/25/23 09:46 [id number] (Rec: 10/25/23 09:51 [email or web address] [id number]) Subjective/History History History 63 yowf adm to [facility] after OR for L ankle arthrodesis. She has PMH of DM, fibromyalgia, HTN, HLD, CAD. She reports she lives wiht family, no steps to enter the home, and she is generally independent with all mobility. She has RW, WKS, BSC, and w/c at home already after a prior ankle surgery ~ 1 yr ago. Subjective Subjective Currently she reports pain in the L lower leg 04/16, but it' s still numb from the surgery. She agrees to mobility assessment. New diagnosis of cancer in past 12 No months? Rehab PT IP Eval Objective Appearance Patient Behavior Appropriate Patient Orientation Person,Place,Time Difficulty following instructions none Speech Pattern Clear Ambulation Patient Able to Ambulate No Balance Ability to Arise Able, uses arms to help Sitting Balance Steady, safe Standing Balance Steady, wide stance Dynamic Sitting Balance Ability Good Dynamic Standing Balance Ability Good Transfers Bed Transfer Ability Supervision/Stand by Chair Transfer Ability Supervision/Stand by Sit to Stand Bed Transfer Ability Supervision/Stand by Sit to Stand Chair Transfer Ability Supervision/Stand by Rehab PT IP prob,goals,plan Problems Date of Evaluation: 10/25/23 Discharge Plan PT Discharge Plan Pt is appropriate to return home once medically stable for d/c. She has all appropriate equipment needed already and is able to maintain NWB of the L LE for transfers at this time. Eval Complexity Eval Charge Codes 42293 - High Complexity PHYSICIAN CERTIFICATION: I certify the specified therapy services for Angeles Machado are required, authorized, and reviewed every 30 days.
[2023-10-25] MEDS: ISOSORBIDE MONO 30MG TAB.ER.24H 30 MG PO (10:00)
[2023-10-25] MEDS: VENLAFAXINE XR 75MG CAPSULE 75 MG PO (10:00)
[2023-10-25] MEDS: ASPIRIN EC 81MG TABLET 81 MG PO (10:00)
--- NOTE | 2023-10-25 11:26 | EXP.DC.SUM ---
General Admission date:: 10/24/23 Discharge date: 10/25/23 HPI HPI HPI: Patient is a 63-year-old female after bariatric procedure. Patient tolerated procedure well, patient denies any acute events, complaints before or during the procedure. Patient denies chest pain shortness of breath nausea vomiting diarrhea constipation dysuria fever chills. Patient mentions she has pain at the site of surgery. Patient was further admitted to the hospital for observation and possible placement and PT/OT evaluation. Hospital Course Hospital Course Hospital Course: Patient is a 63-year-old female after bariatric procedure. Patient tolerated procedure well, patient denies any acute events, complaints before or during the procedure. Patient denies chest pain shortness of breath nausea vomiting diarrhea constipation dysuria fever chills. Patient mentions she has pain at the site of surgery. Patient was further admitted to the hospital for observation and possible placement and PT/OT evaluation. Assessment S/p left ankle arthrodesis Diabetes mellitus CAD Obesity Degenerative arthritis s/p surgery by podiatry, Pain meds per podiatry, patient seen by PT/OT - no needs per PT/OT f/u with podiatry in 1 week Exam Data for Last 24 hours Vital signs and Labs for Last 24 Hours: Temp Pulse Resp BP Pulse Ox O2 Del Method O2 Flow Rate 98.2 F 67 16 117/48 L 93 L Room Air 4 10/25/23 08:00 10/25/23 08:00 10/25/23 08:00 10/25/23 08:00 10/25/23 08:52 10/25/23 08:52 10/24/23 13:52 Laboratory Results - last 24 hr 10/24/23 13:48: POC Glucose 213 H 10/24/23 17:01: POC Glucose 204 H 10/24/23 19:53: POC Glucose 323 H* 10/25/23 05:00: POC Glucose 150 H 10/25/23 05:33: WBC 10.7, RBC 4.12 L, Hgb 11.3 L, Hct 34.1 L, MCV 82.6, MCH 27.4, MCHC 33.2, RDW 15.6, Plt Count 164, MPV 8.5, Neut % (Auto) 76.6, Lymph % (Auto) 16.9, [place] % (Auto) 6.1, Eos % (Auto) 0.1, Baso % (Auto) 0.3, Neut # (Auto) 8.2 H, Lymph # (Auto) 1.8, [place] # (Auto) 0.7, Eos # (Auto) 0.0, Baso # (Auto) 0.0, Sodium 138, Potassium 4.0, Chloride 102, Carbon Dioxide 29, Anion Gap 11.0, BUN 25 H, Creatinine 1.00, Estimated Creat Clear 88, Estimated GFR 56 L, Est GFR ( Amer) 68, Glucose 162 H, Calcium 7.7 L, Magnesium 1.8, Total Bilirubin 0.4, AST 31, ALT 22, Alkaline Phosphatase 93, Total Protein 6.3, Albumin 3.4 L, Globulin 2.9, Albumin/Globulin Ratio 1.2 I & O for Last 24 hours: Intake & Output 10/22/23 10/23/23 10/24/23 10/25/23 23:59 23:59 23:59 23:59 Intake Total 1680 / 1680 270 / 270 Output Total 425 / 425 650 / 650 Balance 1255 / 1255 -380 / -380 Weight 93.894 kg Constitutional Constitutional: no acute distress *Routine HEENT Exam Head: Present normocephalic Eye: Present EOMI and PERRL ENT: Present mucous membranes moist *Routine Neck Exam Neck: Present supple; Absent lymphadenopathy *Routine Respiratory Exam Respiratory: Present CTA bilaterally *Routine Cardiovascular Exam Cardiovascular: Present RRR *Routine Abdominal Exam Abdominal: Present soft and normoactive bowel sounds; Absent tenderness *Routine Extremities Exam Extremities: Absent cyanosis, clubbing or edema Comments: RLE covered in dressing *Routine Skin Exam Skin: Present warm; Absent rash *Routine Neurological Exam Neurological: Present alert and oriented X3 Results Data Completed and Pending Labs on day of discharge: Labs from last 24 hours 10/25/23 10/25/23 10/24/23 05:33 05:00 19:53 WBC 10.7 RBC 4.12 L Hgb 11.3 L Hct 34.1 L MCV 82.6 MCH 27.4 MCHC 33.2 RDW 15.6 Plt Count 164 MPV 8.5 Neut % (Auto) 76.6 Lymph % (Auto) 16.9 [place] % (Auto) 6.1 Eos % (Auto) 0.1 Baso % (Auto) 0.3 Neut # (Auto) 8.2 H Lymph # (Auto) 1.8 [place] # (Auto) 0.7 Eos # (Auto) 0.0 Baso # (Auto) 0.0 Sodium 138 Potassium 4.0 Chloride 102 Carbon Dioxide 29 Anion Gap 11.0 BUN 25 H Creatinine 1.00 Estimated Creat Clear 88 Estimated GFR 56 L Est GFR ( Amer) 68 Glucose 162 H POC Glucose 150 H 323 H* Calcium 7.7 L Magnesium 1.8 Total Bilirubin 0.4 AST 31 ALT 22 Alkaline Phosphatase 93 Total Protein 6.3 Albumin 3.4 L Globulin 2.9 Albumin/Globulin Ratio 1.2 10/24/23 10/24/23 17:01 13:48 WBC RBC Hgb Hct MCV MCH MCHC RDW Plt Count MPV Neut % (Auto) Lymph % (Auto) [place] % (Auto) Eos % (Auto) Baso % (Auto) Neut # (Auto) Lymph # (Auto) [place] # (Auto) Eos # (Auto) Baso # (Auto) Sodium Potassium Chloride Carbon Dioxide Anion Gap BUN Creatinine Estimated Creat Clear Estimated GFR Est GFR ( Amer) Glucose POC Glucose 204 H 213 H Calcium Magnesium Total Bilirubin AST ALT Alkaline Phosphatase Total Protein Albumin Globulin Albumin/Globulin Ratio DS: Diagnosis Discharge Diagnosis (1) Postoperative pain of extremity: Status: Acute Code(s): G89.18 - Other acute postprocedural pain; M79.609 - Pain in unspecified limb (2) Status post left foot surgery: Status: Acute Code(s): Z98.890 - Other specified postprocedural states (3) Diabetes mellitus: Status: Acute Code(s): E11.9 - Type 2 diabetes mellitus without complications Qualifiers: Diabetes mellitus type: type 2 Diabetes mellitus jail insulin use: with computer terminal operator use Diabetes mellitus complication status: with neurologic complications Diabetes mellitus complication detail: with polyneuropathy Qualified Code(s): E11.42 - Type 2 diabetes mellitus with diabetic polyneuropathy; Z79.4 - shelter (current) use of insulin (4) Obesity, Class II, BMI 35-39.9: Status: Acute Code(s): E66.9 - Obesity, unspecified (5) CAD (coronary artery disease): Status: Acute Code(s): I25.10 - Atherosclerotic heart disease of [place] coronary artery without angina pectoris Qualifiers: Coronary Disease-Associated Artery/Lesion type: unspecified vessel or lesion type [place] vs. transplanted heart: unspecified whether [place] or transplanted heart Associated angina: with stable angina Qualified Code(s): I25.118 - Atherosclerotic heart disease of [place] coronary artery with other forms of angina pectoris Meds Home Medications and Allergies Home Medications Medication Instructions Recorded Confirmed Type aspirin 81 mg tablet,delayed 81 mg PO DAILY 12/01/20 10/24/23 History release epinephrine 0.3 mg/0.3 mL 0.3 mg IM Q5-15M PRN Allergy 12/01/20 10/24/23 History injection, auto-injector (EpiPen) Symptoms isosorbide mononitrate 30 mg 30 mg PO DAILY 12/01/20 10/24/23 History tablet,extended release 24 hr meloxicam 15 mg tablet 15 mg PO PM 12/01/20 10/24/23 History montelukast 10 mg tablet 10 mg PO PM 12/01/20 10/24/23 History levocetirizine 5 mg tablet 5 mg PO AM 03/06/23 10/24/23 History metoprolol succinate 50 mg 50 mg PO PM 03/06/23 10/24/23 History tablet,extended release 24 hr glimepiride 4 mg tablet 4 mg PO DAILY 04/05/23 10/24/23 History albuterol sulfate 90 mcg/actuation 2 inh inhalation Q4-6H PRN 07/02/23 10/24/23 History aerosol inhaler (ProAir HFA) Shortness Of Breath ergocalciferol (vitamin D2) 1,250 50,000 unit PO .TWICE A WEEK 07/02/23 10/24/23 History mcg (50,000 unit) capsule evolocumab 140 mg/mL subcutaneous 140 mg SQ QOW 07/02/23 10/24/23 History pen injector (Lopez Burger) fluticasone propionate 50 2 spray intranasal BID PRN 07/02/23 10/24/23 History mcg/actuation nasal Allergies spray,suspension ketotifen fumarate 0.025 % (0.035 1 drp ophthalmic (eye) BID 07/02/23 10/24/23 History %) eye drops (Zaditor) pantoprazole 40 mg tablet,delayed 40 mg PO DAILY 90 days #90 tabs 07/02/23 10/24/23 Rx release insulin degludec 100 unit/mL (3 58 unit SQ DAILY 08/01/23 10/24/23 History mL) subcutaneous pen (Tresiba FlexTouch U-100 insulin) losartan 50 mg tablet 50 mg PO BID 08/01/23 10/24/23 History levothyroxine 150 mcg tablet 150 mcg PO DAILY 90 days #90 tabs 10/12/23 10/24/23 Rx venlafaxine 75 mg capsule,extended 75 mg PO DAILY 30 days #30 caps 10/12/23 10/24/23 Rx release 24 hr dulaglutide 3 mg/0.5 mL 3 mg SQ WEEKLY 10/24/23 10/24/23 History subcutaneous pen injector (Trulicity) fluticasone propionate 110 2 puff inhalation BID 10/24/23 10/24/23 History mcg/actuation HFA aerosol inhaler gabapentin 300 mg capsule 300 mg PO TID PRN Nerve pain 10/24/23 10/24/23 History ketorolac 10 mg tablet 10 mg PO Q6H PRN Pain (Scale Score 10/24/23 10/24/23 History 4-6) ondansetron 4 mg disintegrating 4 mg PO Q6H PRN Nausea And Vomiting 10/24/23 10/24/23 History tablet oxycodone 10 mg tablet 10 mg PO Q4-6H PRN Severe Pain 10/24/23 10/24/23 History (Scale Score 7-10) scopolamine base 1 mg over 3 days 1 patch transdermal Q3D PRN Nausea 10/24/23 10/24/23 History transdermal patch And Vomiting sucralfate 1 gram tablet 1 g PO TIDWMEAL 10/24/23 10/24/23 History tizanidine 4 mg tablet 4 mg PO TID PRN Muscle Pain 10/24/23 10/24/23 History New Prescriptions to Start Prescriptions: Allergies Allergy/AdvReac Type Severity Reaction Status Date / Time codeine [CODEINE] Allergy Unknown I-ITCHING Verified 10/19/23 16:30 metformin [METFORMIN] Allergy Unknown HIVES, SOA Verified 10/19/23 16:30 pioglitazone [From ACTOS] Allergy Unknown SOA, HIVES Verified 10/19/23 16:30 gabapentin Allergy Verified 10/19/23 16:30 metformin Allergy Mild Gastrointestinal Uncoded 10/12/23 15:18 Upset Discharge Plan Disposition Patient Disposition: Home, Self-Care Condition: Good Follow up Plan Follow up with: Mercy Guevara APRN [Primary Care Provider] - 1 week Prescriptions/Medication Reconciliation: Continued aspirin 81 mg tablet,delayed release (DR/EC) 81 mg PO DAILY meloxicam 15 mg tablet 15 mg PO PM epinephrine [EpiPen] 0.3 mg/0.3 mL auto-injector 0.3 mg IM Q5-15M PRN (Reason: Allergy Symptoms) Rx Instructions: Do not exceed 3 doses per episode montelukast 10 mg tablet 10 mg PO PM isosorbide mononitrate 30 mg tablet extended release 24 hr 30 mg PO DAILY albuterol sulfate [ProAir HFA] 90 mcg/actuation HFA aerosol inhaler 2 inh INHALATION Q4-6H PRN (Reason: Shortness Of Breath) losartan 50 mg tablet 50 mg PO BID metoprolol succinate 50 mg tablet extended release 24 hr 50 mg PO PM levocetirizine 5 mg tablet 5 mg PO AM Repatha SureClick 140 mg/mL pen injector 140 mg SQ QOW ergocalciferol (vitamin D2) 1,250 mcg (50,000 unit) capsule 50,000 unit PO .TWICE A WEEK ketotifen fumarate [Zaditor] 0.025 % (0.035 %) drops 1 drp ophthalmic (eye) BID Rx Instructions: Administer at least 8 hours apart pantoprazole 40 mg tablet,delayed release (DR/EC) 40 mg PO DAILY 90 Days Qty: 90 2RF venlafaxine 75 mg capsule,extended release 24hr 75 mg PO DAILY 30 Days Qty: 30 2RF levothyroxine 150 mcg tablet 150 mcg PO DAILY 90 Days Qty: 90 0RF glimepiride 4 mg Tablet 4 mg PO DAILY fluticasone propionate 50 mcg/actuation spray,suspension 2 spray INTRANASAL BID PRN (Reason: Allergies) Rx Instructions: Administer into each nostril insulin degludec [Tresiba FlexTouch U-100] 100 unit/mL (3 mL) insulin pen 58 unit SQ DAILY Trulicity 3 mg/0.5 mL Pen Injector 3 mg SQ WEEKLY sucralfate 1 gram tablet 1 g PO TIDWMEAL Rx Instructions: Take one tablet one hour prior to meals and snacks fluticasone propionate 110 mcg/actuation HFA aerosol inhaler 2 puff INHALATION BID tizanidine 4 mg tablet 4 mg PO TID PRN (Reason: Muscle Pain ) ketorolac 10 mg tablet 10 mg PO Q6H PRN (Reason: Pain (Scale Score 4-6)) gabapentin 300 mg capsule 300 mg PO TID PRN (Reason: Nerve pain) scopolamine base 1 mg over 3 days patch 3 day 1 patch transdermal Q3D PRN (Reason: Nausea And Vomiting) ondansetron 4 mg tablet,disintegrating 4 mg PO Q6H PRN (Reason: Nausea And Vomiting) oxycodone 10 mg tablet 10 mg PO Q4-6H PRN (Reason: Severe Pain (Scale Score 7-10)) Problem Reconciliation Problems Reviewed?: Yes Patient Discharge Instructions ACTIVITY: Ambulate as tolerated DIET: advance to your usual diet Patient Instructions: DI for Surgical Site Infection, DI for Arthrodesis of the Foot, Catheter-Associated Urinary Tract Infection Providers Primary Care Provider: Mercy Guevara Admit Provider: Cori Soria Attending Provider: Chelita Felix
--- NOTE | 2023-10-26 11:25 | CARE MANAGER ---
Contacted patient's family related to hospital discharge. They state patient is finally sleeping and doing better. They are aware of follow up appointments and deny any questions or concerns. BEST Grossman
== END 2023-10-25 11:41 | disposition home or self-care (01) ==
LOC: 2ND 09:45
PROVIDERS: Admitting Provider Podiatrist; PCP Nurse Practitioner Family; Visit Provider Internal Medicine
PROC: (CPT 15275; principal; 2023-10-24 09:00)
DX: M76.822 Posterior tibial tendinitis, left leg (principal); M25.372 Other instability, left ankle; M19.072 Primary osteoarthritis, left ankle and foot; M21.42 Flat foot [pes planus] (acquired), left foot; M65.9 Synovitis and tenosynovitis, unspecified; E11.42 Type 2 diabetes mellitus with diabetic polyneuropathy; Z79.4 Long term (current) use of insulin; G89.18 Other acute postprocedural pain; M79.605 Pain in left leg; E66.9 Obesity, unspecified; I25.118 Atherosclerotic heart disease of native coronary artery with other forms of angina pectoris; Z79.899 Other long term (current) drug therapy
CPT/HCPCS: 15275; 27696; 28715; 36415; 70450; 71045; 73610; 73620; 73630; 76000; 80053; 81001; 82962; 83735; 85025; 87086; 93005; 94640; 96374; 97163; C1713; C1734; G0378; J0131; J2405; Q4211

== ENCOUNTER 2023-10-25 18:08 | Emergency (ER) | payer MEDICARE, MEDICAID, SELFPAY ==
[2023-10-25 18:09] VITALS: BP 137/68; PULSE 86; RESP 20; TEMP 37.6; O2SAT 94; BMI 36.6
--- NOTE | 2023-10-25 18:38 | CT_ITS ---
PROCEDURE INFORMATION: Exam: CT Head Without Contrast Exam date and time: 10/25/2023 6:52 PM Age: 63 years old Clinical indication: Visual hallucinations TECHNIQUE: Imaging protocol: Computed tomography of the head without contrast. Radiation optimization: All CT scans at this facility use at least one of these dose optimization techniques: automated exposure control; mA and/or kV adjustment per patient size (includes targeted exams where dose is matched to clinical indication); or iterative reconstruction. COMPARISON: CT ANGIO HEAD 11/14/2022 5:00 PM FINDINGS: Brain: Age-related involutional changes and chronic microvascular ischemic disease. Chronic lacunar infarct involving the left thalamus. No evidence for acute transcortical infarct. No mass effect or midline shift. No extra-axial collection. No acute intracranial hemorrhage. Basal cisterns are patent. Cerebral ventricles: No ventriculomegaly. Paranasal sinuses: Visualized sinuses are unremarkable. No fluid levels. Mastoid air cells: Visualized mastoid air cells are well aerated. Bones/joints: Unremarkable. No acute fracture. Soft tissues: Unremarkable. IMPRESSION: No evidence for acute transcortical infarct, acute intracranial hemorrhage, or mass effect.
--- NOTE | 2023-10-25 18:38 | ED_ITS ---
Discharge Plan Disposition Patient Disposition: Home, Self-Care Chief Complaint: Altered Mental Status Prescriptions Prescriptions: No Action aspirin 81 mg tablet,delayed release (DR/EC) 81 mg PO DAILY meloxicam 15 mg tablet 15 mg PO PM epinephrine [EpiPen] 0.3 mg/0.3 mL auto-injector 0.3 mg IM Q5-15M PRN (Reason: Allergy Symptoms) Rx Instructions: Do not exceed 3 doses per episode montelukast 10 mg tablet 10 mg PO PM isosorbide mononitrate 30 mg tablet extended release 24 hr 30 mg PO DAILY albuterol sulfate [ProAir HFA] 90 mcg/actuation HFA aerosol inhaler 2 inh INHALATION Q4-6H PRN (Reason: Shortness Of Breath) losartan 50 mg tablet 50 mg PO BID metoprolol succinate 50 mg tablet extended release 24 hr 50 mg PO PM levocetirizine 5 mg tablet 5 mg PO AM Repatha SureClick 140 mg/mL pen injector 140 mg SQ QOW ergocalciferol (vitamin D2) 1,250 mcg (50,000 unit) capsule 50,000 unit PO .TWICE A WEEK ketotifen fumarate [Zaditor] 0.025 % (0.035 %) drops 1 drp ophthalmic (eye) BID Rx Instructions: Administer at least 8 hours apart pantoprazole 40 mg tablet,delayed release (DR/EC) 40 mg PO DAILY 90 Days Qty: 90 2RF venlafaxine 75 mg capsule,extended release 24hr 75 mg PO DAILY 30 Days Qty: 30 2RF levothyroxine 150 mcg tablet 150 mcg PO DAILY 90 Days Qty: 90 0RF nitrofurantoin monohyd/m-cryst [Macrobid] 100 mg capsule 100 mg PO BID 10 Days Qty: 20 0RF Rx Instructions: must administer with a meal/food glimepiride 4 mg Tablet 4 mg PO DAILY fluticasone propionate 50 mcg/actuation spray,suspension 2 spray INTRANASAL BID PRN (Reason: Allergies) Rx Instructions: Administer into each nostril insulin degludec [Tresiba FlexTouch U-100] 100 unit/mL (3 mL) insulin pen 58 unit SQ DAILY Trulicity 3 mg/0.5 mL Pen Injector 3 mg SQ WEEKLY sucralfate 1 gram tablet 1 g PO TIDWMEAL Rx Instructions: Take one tablet one hour prior to meals and snacks fluticasone propionate 110 mcg/actuation HFA aerosol inhaler 2 puff INHALATION BID tizanidine 4 mg tablet 4 mg PO TID PRN (Reason: Muscle Pain ) ketorolac 10 mg tablet 10 mg PO Q6H PRN (Reason: Pain (Scale Score 4-6)) gabapentin 300 mg capsule 300 mg PO TID PRN (Reason: Nerve pain) scopolamine base 1 mg over 3 days patch 3 day 1 patch transdermal Q3D PRN (Reason: Nausea And Vomiting) ondansetron 4 mg tablet,disintegrating 4 mg PO Q6H PRN (Reason: Nausea And Vomiting) oxycodone 10 mg tablet 10 mg PO Q4-6H PRN (Reason: Severe Pain (Scale Score 7-10)) Referrals Follow up/Referrals: Mercy Guevara APRN [Primary Care Provider] - See instructions Activity Restrictions/Add. Instructions Additional Instructions/Restrictions: At this time it was felt you are safe to be discharged home. If new or worsening symptoms please do not hesitate to return the emergency department. Please call and schedule an appointment next week for continued evaluation with your family doctor. Clinical Impressions Clinical Impression: Altered sensorium, Hallucinations Instructions Patient Instructions: DI for Altered Mental Status Discharge ED Provider: Niranjan Huitron General Adult HPI General Chief complaint: Altered Mental Status Stated complaint: hallucinating, fever, talking out of head Time Seen by Provider: 10/25/23 18:11 Mode of Arrival: Wheelchair Source of Information: Patient and Relative Limitations: No Limitations Description of Symptoms (Recalled from ER Triage Doc. by RN): Patient and daughter report patient had foot sugery yesterday and was d/c from hospital this morning. Patient reports visual hallucinations that have been on and off for x3 weeks. Patient also reports trouble swallowing that just started this evening. History of Present Illness HPI narrative: Patient is a 63-year-old female with past medical history of recent left foot surgery who presents emergency department for evaluation of hallucinations. Patient has had hallucinations adjacent to sleep over the last 3 weeks, some of family members, some of her cat, some tactile across her chest. No trauma. Patient underwent uncomplicated left lower extremity surgery and was deemed appropriate for discharge this morning. She presents here for evaluation of the symptoms. She has had some neck pain over the last 48 hours. No other acute complaints at this time. Related Data Home Medications Medication Instructions Recorded Confirmed aspirin 81 mg tablet,delayed 81 mg PO DAILY 12/01/20 10/24/23 release epinephrine 0.3 mg/0.3 mL 0.3 mg IM Q5-15M PRN Allergy 12/01/20 10/24/23 injection, auto-injector (EpiPen) Symptoms isosorbide mononitrate 30 mg 30 mg PO DAILY 12/01/20 10/24/23 tablet,extended release 24 hr meloxicam 15 mg tablet 15 mg PO PM 12/01/20 10/24/23 montelukast 10 mg tablet 10 mg PO PM 12/01/20 10/24/23 levocetirizine 5 mg tablet 5 mg PO AM 03/06/23 10/24/23 metoprolol succinate 50 mg 50 mg PO PM 03/06/23 10/24/23 tablet,extended release 24 hr glimepiride 4 mg tablet 4 mg PO DAILY 04/05/23 10/24/23 albuterol sulfate 90 mcg/actuation 2 inh inhalation Q4-6H PRN 07/02/23 10/24/23 aerosol inhaler (ProAir HFA) Shortness Of Breath ergocalciferol (vitamin D2) 1,250 50,000 unit PO .TWICE A WEEK 07/02/23 10/24/23 mcg (50,000 unit) capsule evolocumab 140 mg/mL subcutaneous 140 mg SQ QOW 07/02/23 10/24/23 pen injector (Lopez Burger) fluticasone propionate 50 2 spray intranasal BID PRN 07/02/23 10/24/23 mcg/actuation nasal Allergies spray,suspension ketotifen fumarate 0.025 % (0.035 1 drp ophthalmic (eye) BID 07/02/23 10/24/23 %) eye drops (Zaditor) insulin degludec 100 unit/mL (3 58 unit SQ DAILY 08/01/23 10/24/23 mL) subcutaneous pen (Tresiba FlexTouch U-100 insulin) losartan 50 mg tablet 50 mg PO BID 08/01/23 10/24/23 dulaglutide 3 mg/0.5 mL 3 mg SQ WEEKLY 10/24/23 10/24/23 subcutaneous pen injector (David) fluticasone propionate 110 2 puff inhalation BID 10/24/23 10/24/23 mcg/actuation HFA aerosol inhaler gabapentin 300 mg capsule 300 mg PO TID PRN Nerve pain 10/24/23 10/24/23 ketorolac 10 mg tablet 10 mg PO Q6H PRN Pain (Scale Score 10/24/23 10/24/23 4-6) ondansetron 4 mg disintegrating 4 mg PO Q6H PRN Nausea And Vomiting 10/24/23 10/24/23 tablet oxycodone 10 mg tablet 10 mg PO Q4-6H PRN Severe Pain 10/24/23 10/24/23 (Scale Score 7-10) scopolamine base 1 mg over 3 days 1 patch transdermal Q3D PRN Nausea 10/24/23 10/24/23 transdermal patch And Vomiting sucralfate 1 gram tablet 1 g PO TIDWMEAL 10/24/23 10/24/23 tizanidine 4 mg tablet 4 mg PO TID PRN Muscle Pain 10/24/23 10/24/23 Previous Rx's Medication Instructions Recorded pantoprazole 40 mg tablet,delayed 40 mg PO DAILY 90 days #90 tabs 07/02/23 release levothyroxine 150 mcg tablet 150 mcg PO DAILY 90 days #90 tabs 10/12/23 venlafaxine 75 mg capsule,extended 75 mg PO DAILY 30 days #30 caps 10/12/23 release 24 hr nitrofurantoin 100 mg PO BID 10 days #20 caps 10/25/23 monohydrate/macrocrystals 100 mg capsule (Macrobid) Allergies Allergy/AdvReac Type Severity Reaction Status Date / Time codeine [CODEINE] Allergy Unknown I-ITCHING Verified 10/19/23 16:30 metformin [METFORMIN] Allergy Unknown HIVES, SOA Verified 10/19/23 16:30 pioglitazone [From ACTOS] Allergy Unknown SOA, HIVES Verified 10/19/23 16:30 gabapentin Allergy Verified 10/19/23 16:30 metformin Allergy Mild Gastrointestinal Uncoded 10/12/23 15:18 Upset [facility] Disclaimer: The information contained in this section may have been updated after the patient was seen, as this information can be updated by other users. Medical History Arthritis Asthma Cholecystectomy planned Diabetes mellitus Diabetes mellitus, type 2 Enlarged lymph nodes Esophageal dilatation Fibromyalgia Hyperlipidemia Hypertension Hypothalamic hypothyroidism Migraine Sleep apnea Thyroid cancer White matter disease Surgical History H/O gastric sleeve History of colonoscopy History of esophagogastroduodenoscopy (EGD) History of heart artery stent Hx of heart artery stent S/P foot surgery, right Family History Father Mother Alzheimer's dementia, late onset Grandmother Diabetes Mother Dementia Father Cancer Mother Father Hypertension Father Social History (Updated 10/24/23 @ 15:20 by Lizzy Verde RN) Smoking Status: Never smoker alcohol intake: never substance use type: denies use current occupational status: disabled Travel in the last 8 weeks: None household members: family housing: house lives independently: No education level: college service: No caffeine: Yes special ameya needs: No do you feel safe at home: Yes victim of physical abuse: No victim of emotional abuse: No victim of sexual abuse: No would you like helpful sources: No ROS Obtained: Yes Systems reviewed as appropriate & no additional complaints except as documented Physical Exam General General appearance: alert and in no apparent distress Head Head exam: atraumatic and normocephalic Eye Eye exam: Present PERRL and EOMI ENT ENT exam: Present mucous membranes moist Neck Neck exam: Present normal inspection; Absent full ROM (Neck unable to turn to the right past 45 degrees, flexion and extension and leftward turn intact.) or tenderness (No midline tenderness) Chest Chest inspection: Present normal inspection and symmetric chest wall rise Respiratory Respiratory exam: Present normal lung sounds bilaterally; Absent respiratory distress Cardiovascular Cardiovascular exam: Present regular rate and normal rhythm Abdominal Exam Abdominal exam: Present soft; Absent tenderness Extremities Exam Extremities exam: Present other (Left lower extremity dressing in place.) Neurological Exam Neurological exam: Present alert and CN II-XII intact; Absent motor sensory deficit Psychiatric Psychiatric exam: Present normal affect Skin Skin exam: Present warm and dry Medical Decision Making Kristofer Inquiry Pt receiving controlled substance: No Vital Signs: 10/25/23 18:09 Temperature 99.6 F Temperature Source Oral Pulse Rate [Right Brachial] 86 Respiratory Rate 20 Blood Pressure [Right Arm] 137/68 Blood Pressure Mean [Right Arm] 91 Blood Pressure Source [Right Arm] Automatic Cuff Blood Pressure Position [Right Arm] Sitting 02 Sat by Pulse Oximetry 94 L Oxygen Delivery Method Room Air Lab Data Lab Results 10/25/23 18:45: WBC 10.6, RBC 4.23, Hgb 11.4 L, Hct 35.5 L, MCV 83.8, MCH 27.0, MCHC 32.2, RDW 15.6, Plt Count 176, MPV 8.7, Neut % (Auto) 74.9, Lymph % (Auto) 18.2, [place] % (Auto) 4.8, Eos % (Auto) 1.6, Baso % (Auto) 0.5, Neut # (Auto) 7.9 H, Lymph # (Auto) 1.9, [place] # (Auto) 0.5, Eos # (Auto) 0.2, Baso # (Auto) 0.1, Sodium 138, Potassium 4.3, Chloride 102, Carbon Dioxide 30, Anion Gap 10.3, BUN 26 H, Creatinine 0.80, Estimated Creat Clear 85, Estimated GFR 73, Est GFR (Afr ican Amer) 88 D, Glucose 188 H, Calcium 8.5, Magnesium 1.8, Total Bilirubin 0.7, AST 46 H D, ALT 23, Alkaline Phosphatase 80, Total Protein 7.2, Albumin 4.0 D, Globulin 3.2, Albumin/Globulin Ratio 1.3 10/25/23 19:30: Urine Color Yellow, Urine Appearance Clear, Urine pH 6.0, Ur Specific [place] 1.010, Urine Protein Negative, Urine Glucose (UA) Negative, Urine Ketones Negative, Urine Blood 1+, Urine Nitrate Negative, Urine Bilirubin Negative, Urine Urobilinogen 0.2, Ur Leukocyte Esterase Trace 10/25/23 18:45 10/25/23 18:45 Orders (Tests/Meds): ED MEDICATIONS Discontinued Medications Generic Name Dose Route Start Last Admin Trade Name Freq PRN Reason Stop Dose Admin Acetaminophen 1,000 mg 10/25/23 18:38 10/25/23 18:46 Acetaminophen 1,000mg/100ml Vial IV 10/25/23 18:39 1,000 mg ONCE ONE Administration ORDERS Category Date Time Status CT head/brain wo con Stat Cat Scan 10/25/23 18:38 Completed CBC w/Auto Diff [Complete Blood Count Auto Diff] Stat Lab 10/25/23 18:45 Completed CMP [Comprehensive Metabolic Panel] Stat Lab 10/25/23 18:45 Completed MG [Magnesium] Stat Lab 10/25/23 18:45 Completed UA [Urinalysis and Microscopic] Stat Lab 10/25/23 19:30 Results Medical Decision Narrative: In summary patient is a 63-year-old female with past medical history described above presents emergency department for evaluation of hallucinations. Patient is hemodynamically stable nontoxic-appearing upon arrival, afebrile. Differential diagnosis includes hypnagogic hallucinations, new onset dementia, urinary tract infection, electrolyte abnormality, among others. Workup will be conducted with hematologic labs, urinalysis, noncontrasted CT scan of the head. Initial interventions include IV Tylenol. Patient does have slight limited range of motion of her neck toward the right however no meningismus no midline tenderness therefore workup with CT imaging of cervical spine was considered but will be deferred. Given patient's history and the fact that she is afebrile and nontachycardic I do not think her recent hospital stay or surgical procedures are contributing. Workup reviewed by me, hematologic labs are nonactionable, no critical electrolyte abnormality, urinalysis interpreted by me and not consistent with infection. CT imaging shows no acute intracranial abnormality. Upon repeat evaluation patient continued to be well-appearing. Given this patient is appropriate for outpatient management at this time and will follow-up next week and was given return precautions and verbalized understanding. Critical Care Critical Care Time Critical Care Time: No
[2023-10-25] MEDS: ACETAMINOPHEN 1,000MG/100ML VIAL 1000 MG IV (18:46)
[2023-10-25 18:56] LABS: Basophils # 0.1 K/mm3 (0-0.2); Basophils % 0.5 % (0.1-2.0); Eosinophils # 0.2 K/mm3 (0.0-0.4); Eosinophils % 1.6 % (0.1-12.0); Hematocrit 35.5 % (37.0-47.0); Hemoglobin 11.4 g/dL (12.2-16.2); Lymphocytes # 1.9 K/mm3 (0.7-4.5); Lymphocytes % 18.2 % (10-50); Mean Corpuscular HGB Conc 32.2 g/dL (31.8-35.4); Mean Corpuscular Volume 83.8 fl (81-99); Mean Platelet Volume 8.7 fl (7.4-10.4); Monocytes # 0.5 K/mm3 (0.1-1.0); Monocytes % 4.8 % (1.7-9.3); Neutrophils # 7.9 K/mm3 (1.8-7.8); Neutrophils % 74.9 % (37.0-80.0); Platelet Count 176 K/mm3 (142-424); Red Blood Count 4.23 M/mm3 (4.20-5.40); Red Cell Distribution Width 15.6 % (11.5-17.5); White Blood Count 10.6 K/mm3 (4.8-10.8)
[2023-10-25 19:13] LABS: Alanine Aminotransferase 23 U/L (12-78); Albumin/Globulin Ratio 1.3 (1.1-1.8); Alkaline Phosphatase 80 U/L (38-126); Anion Gap 10.3 mEq/L (5-15); Aspartate Amino Transferase 46 U/L (14-36); Bilirubin,Total 0.7 mg/dl (0.2-1.3); Blood Urea Nitrogen 26 mg/dl (7-17); Calcium 8.5 mg/dl (8.4-10.2); Carbon Dioxide 30 mmol/L (22.0-30.0); Chloride 102 mmol/L (98-107); Creatinine Clearance Estimated 85 mL/min (50-200); Estimated Glomerular Filt Rate 73 ml/min (>60); GFR (African American) 88 ML/MIN (>60); Globulin 3.2 g/dL (1.3-3.2); Glucose 188 mg/dl (74-100); Magnesium 1.8 mg/dl (1.6-2.3); Potassium 4.3 mmoL/L (3.5-5.1); Sodium 138 mmol/L (136-145); Total Protein,Serum 7.2 g/dl (6.3-8.2)
[2023-10-25 19:45] LABS: Microscopic, Urine URINE MICROSCOPIC (MICROSCOPIC)
[2023-10-25 19:52] LABS: Appearance,Urine CLEAR (Clear); Bilirubin,Urine Negative (Negative); Blood, Urine 1+ (Negative); Color,Urine YELLOW (Yellow); Glucose,Urine (UA) Negative (Negative); Ketones,Urine Negative (Negative); Leukocyte Esterase,Urine TRACE (Negative); Nitrate,Urine Negative (Negative); Protein,Urine Negative (Negative); Urobilinogen,Urine 0.2 EU/dl (0.2)
[2023-10-25 20:13] VITALS: BP 124/63; PULSE 73; RESP 16; TEMP 36.6; O2SAT 97
== END 2023-10-25 20:14 | disposition home or self-care (01) ==
PROVIDERS: Emergency Provider Emergency Medicine; PCP Nurse Practitioner Family
DX: R41.82 Altered mental status, unspecified (principal); R44.1 Visual hallucinations; J45.909 Unspecified asthma, uncomplicated; E11.9 Type 2 diabetes mellitus without complications; E78.5 Hyperlipidemia, unspecified; I10 Essential (primary) hypertension; E03.9 Hypothyroidism, unspecified; G47.30 Sleep apnea, unspecified; R90.82 White matter disease, unspecified
CPT/HCPCS: 70450; 80053; 81001; 83735; 85025; J0131

== ENCOUNTER 2023-10-31 07:48 | Outpatient (CLI) | payer MEDICARE, MEDICAID, SELFPAY | END 2023-10-31 23:59 | LOC: LAB.DROPOF 11-02 07:49 | PROVIDERS: PCP Nurse Practitioner Family; Visit Provider Nurse Practitioner Family | DX: D64.9 Anemia, unspecified (principal); R40.4 Transient alteration of awareness; R44.3 Hallucinations, unspecified | CPT/HCPCS: 80053; 82607; 82728; 84443; 87070; 87205 ==

== ENCOUNTER 2023-10-31 08:34 | Outpatient (CLI) | payer MEDICARE, MEDICAID, SELFPAY ==
--- NOTE | 2023-10-31 08:34 | CT_ITS ---
FINAL REPORT CLINICAL HISTORY: Right-sided abdominal pain, nausea COMPARISON: 02/25/2020 FINDINGS: The lung bases are clear. The liver is normal in size and attenuation. The gallbladder is surgically absent. The spleen is unremarkable. There is nodularity of the right adrenal gland better displayed on images 19 and 20 of series 5. The pancreas is unremarkable. There are postoperative changes from prior gastric sleeve. There is a multitude of bilateral nonobstructing kidney stones. Individual stones measure up to 5 mm in greatest dimension. The kidneys enhance in a normal fashion. The appendix is unremarkable. There is a small amount of air in the anti dependent portion of the urinary bladder. Right adnexal cyst is noted measuring 2.3 x 1.8 cm. The uterus is not seen. IMPRESSION: Multitude of bilateral nonobstructing kidney stones. Right ovarian cyst. Reviewed, Interpreted and Dictated by Jt Cole MD Transcribed by Linda Simmons Authenticated and [facility][1]
[2023-10-31] MEDS: IOPAMIDOL-370 (76%);100ML BOTTLE 75 ML IV (09:08)
[2023-10-31] MEDS: SODIUM CHLORIDE 0.9% 10ML SYR (RAD ONLY) 10 ML IV (09:08)
[2023-10-31 15:34] LABS: Chloride 102 mmol/L (98-107)
[2023-10-31 15:35] LABS: Potassium 4.8 mmoL/L (3.5-5.1)
[2023-10-31 15:37] LABS: Alanine Aminotransferase 102 U/L (12-78); Alkaline Phosphatase 377 U/L (38-126); Aspartate Amino Transferase 56 U/L (14-36); Bilirubin,Total 0.7 mg/dl (0.2-1.3); Blood Urea Nitrogen 12 mg/dl (7-17); Estimated Glomerular Filt Rate 85 ml/min (>60); GFR (African American) 103 ML/MIN (>60)
[2023-10-31 15:38] LABS: Albumin Level 3.3 g/dl (3.5-5.0); Carbon Dioxide 29 mmol/L (22.0-30.0); Globulin 3.3 g/dL (1.3-3.2); Glucose 169 mg/dl (74-100); Total Protein,Serum 6.6 g/dl (6.3-8.2)
[2023-10-31 16:08] LABS: Thyroid Stimulating Hormone 8.41 uIU/mL (0.465-4.68)
[2023-10-31 16:12] LABS: Ferritin 96.9 ng/ml (11.1-264)
[2023-10-31 16:27] LABS: Vitamin B12 877 pg/mL (239-931)
[2023-10-31 18:22] LABS: Anion Gap 10.8 mEq/L (5-15); Sodium 137 mmol/L (136-145)
== END 2023-10-31 23:59 ==
LOC: RAD 08:34
PROVIDERS: PCP Nurse Practitioner Family; Visit Provider Nurse Practitioner Family
DX: R10.9 Unspecified abdominal pain (principal); R11.0 Nausea
CPT/HCPCS: 74178; Q9967

== ENCOUNTER 2023-10-31 17:16 | Emergency (ER) | payer MEDICARE, MEDICAID, SELFPAY ==
[2023-10-31 17:17] VITALS: BP 160/86; PULSE 74; RESP 16; TEMP 36.7; O2SAT 96; BMI 37.6
[2023-10-31 19:35] LABS: Basophils # 0.1 K/mm3 (0-0.2); Basophils % 0.6 % (0.1-2.0); Eosinophils # 0.3 K/mm3 (0.0-0.4); Eosinophils % 2.7 % (0.1-12.0); Hematocrit 36.4 % (37.0-47.0); Lymphocytes # 2.4 K/mm3 (0.7-4.5); Lymphocytes % 25.6 % (10-50); Mean Corpuscular Hemoglobin 27.8 pg (27.0-31.2); Mean Corpuscular Volume 84.3 fl (81-99); Mean Platelet Volume 8.8 fl (7.4-10.4); Monocytes # 0.5 K/mm3 (0.1-1.0); Monocytes % 5.2 % (1.7-9.3); Neutrophils # 6.3 K/mm3 (1.8-7.8); Neutrophils % 65.9 % (37.0-80.0); Platelet Count 268 K/mm3 (142-424); Red Blood Count 4.31 M/mm3 (4.20-5.40); Red Cell Distribution Width 15.5 % (11.5-17.5); White Blood Count 9.6 K/mm3 (4.8-10.8)
[2023-10-31 19:43] LABS: Chloride 102 mmol/L (98-107)
[2023-10-31 19:44] LABS: Potassium 3.9 mmoL/L (3.5-5.1); Sodium 138 mmol/L (136-145)
--- NOTE | 2023-10-31 19:44 | HMH.EDGENADL ---
Discharge Plan Disposition Patient Disposition: Home, Self-Care Prescriptions Prescriptions: No Action lactulose 10 gram/15 mL solution 10 g PO BID 30 Days Qty: 900 0RF aspirin 81 mg tablet,delayed release (DR/EC) 81 mg PO DAILY meloxicam 15 mg tablet 15 mg PO PM epinephrine [EpiPen] 0.3 mg/0.3 mL auto-injector 0.3 mg IM Q5-15M PRN (Reason: Allergy Symptoms) Rx Instructions: Do not exceed 3 doses per episode montelukast 10 mg tablet 10 mg PO PM isosorbide mononitrate 30 mg tablet extended release 24 hr 30 mg PO DAILY albuterol sulfate [ProAir HFA] 90 mcg/actuation HFA aerosol inhaler 2 inh INHALATION Q4-6H PRN (Reason: Shortness Of Breath) losartan 50 mg tablet 50 mg PO BID metoprolol succinate 50 mg tablet extended release 24 hr 50 mg PO PM levocetirizine 5 mg tablet 5 mg PO AM Repatha SureClick 140 mg/mL pen injector 140 mg SQ QOW ergocalciferol (vitamin D2) 1,250 mcg (50,000 unit) capsule 50,000 unit PO .TWICE A WEEK ketotifen fumarate [Zaditor] 0.025 % (0.035 %) drops 1 drp ophthalmic (eye) BID Rx Instructions: Administer at least 8 hours apart pantoprazole 40 mg tablet,delayed release (DR/EC) 40 mg PO DAILY 90 Days Qty: 90 2RF venlafaxine 75 mg capsule,extended release 24hr 75 mg PO DAILY 30 Days Qty: 30 2RF levothyroxine 150 mcg tablet 150 mcg PO DAILY 90 Days Qty: 90 0RF gabapentin 300 mg capsule 300 mg PO TID 10 Days Qty: 30 0RF oxycodone 10 mg tablet 10 mg PO Q4H PRN (Reason: Severe Pain (Scale Score 7-10)) 7 Days Qty: 42 0RF doxycycline hyclate 100 mg tablet 100 mg PO BID 10 Days Qty: 20 0RF glimepiride 4 mg Tablet 4 mg PO DAILY fluticasone propionate 50 mcg/actuation spray,suspension 2 spray INTRANASAL BID PRN (Reason: Allergies) Rx Instructions: Administer into each nostril insulin degludec [Tresiba FlexTouch U-100] 100 unit/mL (3 mL) insulin pen 58 unit SQ DAILY Trulicity 3 mg/0.5 mL Pen Injector 3 mg SQ WEEKLY sucralfate 1 gram tablet 1 g PO TIDWMEAL Rx Instructions: Take one tablet one hour prior to meals and snacks fluticasone propionate 110 mcg/actuation HFA aerosol inhaler 2 puff INHALATION BID tizanidine 4 mg tablet 4 mg PO TID PRN (Reason: Muscle Pain ) ketorolac 10 mg tablet 10 mg PO Q6H PRN (Reason: Pain (Scale Score 4-6)) scopolamine base 1 mg over 3 days patch 3 day 1 patch transdermal Q3D PRN (Reason: Nausea And Vomiting) ondansetron 4 mg tablet,disintegrating 4 mg PO Q6H PRN (Reason: Nausea And Vomiting) Referrals Follow up/Referrals: Mercy Guevara APRN [Primary Care Provider] - See instructions Activity Restrictions/Add. Instructions Additional Instructions/Restrictions: At this time it was felt you are safe to be discharged home. If new or worsening symptoms please do not hesitate to return the emergency department. Please call and schedule an appointment with gastroenterology and hepatology of the Dr. MARY nava. She can be reached at [phone]. Clinical Impressions Clinical Impression: Transaminitis Discharge ED Provider: Niranjan Huitron General Adult HPI General Chief complaint: Recheck/Abnormal Lab/Rx Stated complaint: sent by , elevated liver enzymes Time Seen by Provider: 10/31/23 19:00 Mode of Arrival: Ambulatory Source of Information: Patient Limitations: No Limitations Description of Symptoms (Recalled from ER Triage Doc. by RN): PT SENT BY PCP FOR ABNORMAL LABS STATES PCP WANTS AMMONIA LEVEL CHECKED. PT WITHOUT NEEDS OR CONCERNS AT THIS TIME History of Present Illness HPI narrative: Patient is a 63-year-old female with past medical history of left foot surgery who presents to the emergency department for evaluation of abnormal labs. Patient was sent by PCP today after her labs were checked and stated they were abnormal and that her liver markers were off the charts . They encouraged her to come here for continued evaluation. Patient is asymptomatic, has no complaints of abdominal pain, no vomiting. Related Data Home Medications Medication Instructions Recorded Confirmed aspirin 81 mg tablet,delayed 81 mg PO DAILY 12/01/20 10/31/23 release epinephrine 0.3 mg/0.3 mL 0.3 mg IM Q5-15M PRN Allergy 12/01/20 10/31/23 injection, auto-injector (EpiPen) Symptoms isosorbide mononitrate 30 mg 30 mg PO DAILY 12/01/20 10/31/23 tablet,extended release 24 hr meloxicam 15 mg tablet 15 mg PO PM 12/01/20 10/31/23 montelukast 10 mg tablet 10 mg PO PM 12/01/20 10/31/23 levocetirizine 5 mg tablet 5 mg PO AM 03/06/23 10/31/23 metoprolol succinate 50 mg 50 mg PO PM 03/06/23 10/31/23 tablet,extended release 24 hr glimepiride 4 mg tablet 4 mg PO DAILY 04/05/23 10/31/23 albuterol sulfate 90 mcg/actuation 2 inh inhalation Q4-6H PRN 07/02/23 10/31/23 aerosol inhaler (ProAir HFA) Shortness Of Breath ergocalciferol (vitamin D2) 1,250 50,000 unit PO .TWICE A WEEK 07/02/23 10/31/23 mcg (50,000 unit) capsule evolocumab 140 mg/mL subcutaneous 140 mg SQ QOW 07/02/23 10/31/23 pen injector (Lopez Burger) fluticasone propionate 50 2 spray intranasal BID PRN 07/02/23 10/31/23 mcg/actuation nasal Allergies spray,suspension ketotifen fumarate 0.025 % (0.035 1 drp ophthalmic (eye) BID 07/02/23 10/31/23 %) eye drops (Zaditor) insulin degludec 100 unit/mL (3 58 unit SQ DAILY 08/01/23 10/31/23 mL) subcutaneous pen (Tresiba FlexTouch U-100 insulin) losartan 50 mg tablet 50 mg PO BID 08/01/23 10/31/23 dulaglutide 3 mg/0.5 mL 3 mg SQ WEEKLY 10/24/23 10/31/23 subcutaneous pen injector (Trulicity) fluticasone propionate 110 2 puff inhalation BID 10/24/23 10/31/23 mcg/actuation HFA aerosol inhaler ketorolac 10 mg tablet 10 mg PO Q6H PRN Pain (Scale Score 10/24/23 10/31/23 4-6) ondansetron 4 mg disintegrating 4 mg PO Q6H PRN Nausea And Vomiting 10/24/23 10/31/23 tablet scopolamine base 1 mg over 3 days 1 patch transdermal Q3D PRN Nausea 10/24/23 10/31/23 transdermal patch And Vomiting sucralfate 1 gram tablet 1 g PO TIDWMEAL 10/24/23 10/31/23 tizanidine 4 mg tablet 4 mg PO TID PRN Muscle Pain 10/24/23 10/31/23 Previous Rx's Medication Instructions Recorded pantoprazole 40 mg tablet,delayed 40 mg PO DAILY 90 days #90 tabs 07/02/23 release levothyroxine 150 mcg tablet 150 mcg PO DAILY 90 days #90 tabs 10/12/23 venlafaxine 75 mg capsule,extended 75 mg PO DAILY 30 days #30 caps 10/12/23 release 24 hr doxycycline hyclate 100 mg tablet 100 mg PO BID cellulitis 10 days 10/31/23 #20 tabs gabapentin 300 mg capsule 300 mg PO TID Nerve pain 10 days 10/31/23 #30 caps lactulose 10 gram/15 mL oral 10 g (15 mL) PO BID 30 days #900 mL 10/31/23 solution oxycodone 10 mg tablet 10 mg PO Q4H PRN Severe Pain 10/31/23 (Scale Score 7-10) 7 days #42 tabs Allergies Allergy/AdvReac Type Severity Reaction Status Date / Time codeine [CODEINE] Allergy Unknown I-ITCHING Verified 10/31/23 10:19 metformin [METFORMIN] Allergy Unknown HIVES, SOA Verified 10/31/23 10:19 pioglitazone [From ACTOS] Allergy Unknown SOA, HIVES Verified 10/31/23 10:19 gabapentin Allergy Verified 10/31/23 10:19 metformin Allergy Mild Gastrointestinal Uncoded 10/31/23 10:19 Upset [facility] Disclaimer: The information contained in this section may have been updated after the patient was seen, as this information can be updated by other users. Medical History Abdominal pain Acquired pes planus of both feet Arthritis Asthma Atypical chest pain CAD (coronary artery disease) Chest pain Cholecystectomy planned Class 1 obesity COVID-19 virus infection Depression Diabetes mellitus Diabetes mellitus Diabetes mellitus with diabetic neuropathy Diabetes mellitus, type 2 Dysphagia Enlarged lymph nodes Esophageal dilatation Esophageal stricture Fibromyalgia GERD (gastroesophageal reflux disease) History of kidney stones History of thyroid cancer Hyperlipidemia Hypertension Hypothalamic hypothyroidism Hypothyroidism (acquired) Left ankle instability Left sided numbness Low TSH level Lymphadenopathy Migraine Nausea Nodule of soft tissue Obesity, Class II, BMI 35-39.9 Osteoarthritis of left foot Other specified symptoms and signs involving the circulatory and respiratory systems Posterior tibial tendinitis of left lower extremity Posterior tibial tendon dysfunction (PTTD) of left lower extremity Postoperative pain Postoperative pain of extremity Preoperative clearance Right lower lobe pneumonia Rupture of tibialis posterior tendon Screening for breast cancer Screening for colon cancer Sinusitis Skin lesion Sleep apnea Synovitis of left ankle Thyroid cancer UTI (urinary tract infection) White matter disease Surgical History H/O gastric sleeve History of colonoscopy History of esophagogastroduodenoscopy (EGD) History of foot surgery History of heart artery stent Hx of heart artery stent S/P foot surgery, right Status post left foot surgery Family History Mother Diabetes Cancer Father Cancer Hypertension Dementia Grandmother Alzheimer's dementia, late onset Social History Smoking Status: Never smoker alcohol intake: never substance use type: denies use current occupational status: disabled Travel in the last 8 weeks: None household members: family housing: house lives independently: No education level: college service: No caffeine: Yes special ameya needs: No do you feel safe at home: Yes victim of physical abuse: No victim of emotional abuse: No victim of sexual abuse: No would you like helpful sources: No ROS Obtained: Yes Systems reviewed as appropriate & no additional complaints except as documented Physical Exam General General appearance: alert and in no apparent distress Head Head exam: atraumatic and normocephalic Eye Eye exam: Present PERRL and EOMI ENT ENT exam: Present mucous membranes moist Neck Neck exam: Present normal inspection Chest Chest inspection: Present normal inspection and symmetric chest wall rise Respiratory Respiratory exam: Present normal lung sounds bilaterally; Absent respiratory distress Cardiovascular Cardiovascular exam: Present regular rate and normal rhythm Abdominal Exam Abdominal exam: Present soft; Absent tenderness or guarding Extremities Exam Extremities exam: Present normal inspection Neurological Exam Neurological exam: Present alert Psychiatric Psychiatric exam: Present normal affect Skin Skin exam: Present warm and dry Medical Decision Making Kristofer Inquiry Pt receiving controlled substance: No Vital Signs: 10/31/23 17:17 10/31/23 20:37 10/31/23 20:37 Temperature 98.1 F 98.1 F 98.1 F Temperature Source Oral Oral Oral Pulse Rate 67 Pulse Rate [Radial] 74 67 Respiratory Rate 16 16 16 Blood Pressure 145/75 H Blood Pressure [Right Arm] 160/86 H 145/75 H Blood Pressure Mean [Right Arm] 110 98 Blood Pressure Source [Right Arm] Automatic Cuff Blood Pressure Position [Right Arm] Sitting 02 Sat by Pulse Oximetry 96 96 Oxygen Delivery Method Room Air Lab Data Lab Results 10/31/23 18:35: WBC 9.6, RBC 4.31, Hgb 12.0 L, Hct 36.4 L, MCV 84.3, MCH 27.8, MCHC 33.0, RDW 15.5, Plt Count 268, MPV 8.8, Neut % (Auto) 65.9, Lymph % (Auto) 25.6, Humphreys % (Auto) 5.2, Eos % (Auto) 2.7, Baso % (Auto) 0.6, Neut # (Auto) 6.3, Lymph # (Auto) 2.4, Humphreys # (Auto) 0.5, Eos # (Auto) 0.3, Baso # (Auto) 0.1, Sodium 138, Potassium 3.9, Chloride 102, Carbon Dioxide 28, Anion Gap 11.9, BUN 14, Creatinine 0.80, Estimated Creat Clear 87, Estimated GFR 73, Est GFR ( Amer) 88, Glucose 162 H, Calcium 8.4, Total Bilirubin 0.6, Direct Bilirubin 0.6 H, AST 58 H, ALT 98 H, Alkaline Phosphatase 341 H, Ammonia < 9 L, Total Protein 7.8, Albumin 3.7 D, Globulin 4.1 H, Albumin/Globulin Ratio 0.9 L, Lipase 60 10/31/23 18:35 10/31/23 18:35 Orders (Tests/Meds): ED MEDICATIONS Discontinued Medications Generic Name Dose Route Start Last Admin Trade Name Freq PRN Reason Stop Dose Admin Sodium Chloride 10 ml 10/31/23 18:35 Sodium Chloride 0.9% 10ml Flush Syringe IV 11/30/23 18:34 NEEDED PRN Maintain IV Site ORDERS Category Date Time Status Ammonia Stat Lab 10/31/23 18:35 Completed Bilirubin,Direct Stat Lab 10/31/23 18:35 Completed Complete Blood Count Auto Diff Stat Lab 10/31/23 18:35 Completed Comprehensive Metabolic Panel Stat Lab 10/31/23 18:35 Completed Lipase Stat Lab 10/31/23 18:35 Completed Medical Decision Narrative: In summary patient is a 63-year-old female with past medical history described above presents emergency department for evaluation of abnormal labs. Abnormal labs reviewed by me, AST is 56 and ALT is 102. No elevated bilirubin. CT imaging conducted previously today of the abdomen pelvis shows bilateral nonobstructing kidney stones, no other acute pathology. Gallbladder surgically absent, liver is normal in size and attenuation. Differential includes chronic hepatitis, among others. Workup will be conducted with hematologic labs to assess for worsening. Patient is not complaining of any acute problems. Previous AST and ALT is mildly elevated. Workup reviewed by me, hematologic labs are nonactionable. Patient has elevated alk phos and mildly elevated transaminases, no cholestatic pattern. Given this patient is appropriate for discharge at this time and will be referred to gastroenterology on an outpatient basis. Critical Care Critical Care Time Critical Care Time: No
[2023-10-31 19:46] LABS: Alanine Aminotransferase 98 U/L (12-78); Alkaline Phosphatase 341 U/L (38-126); Anion Gap 11.9 mEq/L (5-15); Aspartate Amino Transferase 58 U/L (14-36); Bilirubin,Direct 0.6 mg/dl (0.0-0.4); Bilirubin,Total 0.6 mg/dl (0.2-1.3); Blood Urea Nitrogen 14 mg/dl (7-17); Carbon Dioxide 28 mmol/L (22.0-30.0); Creatinine Clearance Estimated 87 mL/min (50-200); Estimated Glomerular Filt Rate 73 ml/min (>60); GFR (African American) 88 ML/MIN (>60)
[2023-10-31 19:47] LABS: Albumin Level 3.7 g/dl (3.5-5.0); Albumin/Globulin Ratio 0.9 (1.1-1.8); Ammonia < 9 umol/L (9-30); Calcium 8.4 mg/dl (8.4-10.2); Globulin 4.1 g/dL (1.3-3.2); Glucose 162 mg/dl (74-100); Total Protein,Serum 7.8 g/dl (6.3-8.2)
[2023-10-31 20:03] LABS: Lipase 60 U/L (23-300)
[2023-10-31 20:37] VITALS: BP 145/75; PULSE 67; RESP 16; TEMP 36.7; O2SAT 96
== END 2023-10-31 20:37 | disposition home or self-care (01) ==
PROVIDERS: Emergency Provider Emergency Medicine; PCP Nurse Practitioner Family
DX: R74.01 Elevation of levels of liver transaminase levels (principal); J45.909 Unspecified asthma, uncomplicated; I25.10 Atherosclerotic heart disease of native coronary artery without angina pectoris; E11.40 Type 2 diabetes mellitus with diabetic neuropathy, unspecified; K21.9 Gastro-esophageal reflux disease without esophagitis; E78.5 Hyperlipidemia, unspecified; I10 Essential (primary) hypertension; E03.9 Hypothyroidism, unspecified; G47.30 Sleep apnea, unspecified; R90.82 White matter disease, unspecified
CPT/HCPCS: 74178; 80053; 82140; 82248; 82607; 82728; 83690; 84443; 85025; 87070; 87205; 99285; Q9967

== ENCOUNTER 2023-11-02 12:56 | Outpatient (CLI) | payer MEDICARE, MEDICAID, SELFPAY ==
[2023-11-02 13:29] LABS: Basophils # 0.1 K/mm3 (0-0.2); Basophils % 0.5 % (0.1-2.0); Eosinophils # 0.3 K/mm3 (0.0-0.4); Eosinophils % 3.2 % (0.1-12.0); Hematocrit 34.7 % (37.0-47.0); Hemoglobin 11.3 g/dL (12.2-16.2); Lymphocytes # 2.3 K/mm3 (0.7-4.5); Mean Corpuscular HGB Conc 32.5 g/dL (31.8-35.4); Mean Corpuscular Hemoglobin 27.2 pg (27.0-31.2); Mean Corpuscular Volume 83.6 fl (81-99); Monocytes # 0.4 K/mm3 (0.1-1.0); Monocytes % 4.7 % (1.7-9.3); Neutrophils # 5.7 K/mm3 (1.8-7.8); Neutrophils % 65.5 % (37.0-80.0); Platelet Count 300 K/mm3 (142-424); Red Blood Count 4.15 M/mm3 (4.20-5.40); Red Cell Distribution Width 15.4 % (11.5-17.5); White Blood Count 8.7 K/mm3 (4.8-10.8)
[2023-11-02 14:06] LABS: Alanine Aminotransferase 70 U/L (12-78); Ammonia < 9 umol/L (9-30); Aspartate Amino Transferase 36 U/L (14-36); Bilirubin,Unconjugated 0.2 mg/dL (0.0-1.1)
[2023-11-02 14:07] LABS: Albumin Level 3.3 g/dl (3.5-5.0); Alkaline Phosphatase 302 U/L (38-126); Bilirubin,Direct 0.2 mg/dl (0.0-0.4); Bilirubin,Indirect 0.2 mg/dL (0.0-0.9); Bilirubin,Total 0.4 mg/dl (0.2-1.3); Total Protein,Serum 6.5 g/dl (6.3-8.2)
[2023-11-03 08:19] LABS: HBsAg Screen Negative (Negative); HCV Ab Non Reactive (Non Reactive); Hep A Ab, IGM Negative (Negative); Hep B Core Ab, IgM Negative (Negative)
== END 2023-11-02 23:59 ==
LOC: LAB 12:57
PROVIDERS: PCP Nurse Practitioner Family; Visit Provider Nurse Practitioner Family
DX: R40.4 Transient alteration of awareness (principal); R44.3 Hallucinations, unspecified; R74.8 Abnormal levels of other serum enzymes; R53.1 Weakness
CPT/HCPCS: 36415; 80074; 80076; 82140; 85025

== ENCOUNTER 2023-11-09 23:08 | Outpatient (CLI) | payer MEDICARE, MEDICAID, SELFPAY ==
[2023-11-09 17:27] LABS: Basophils # 0.1 K/mm3 (0-0.2); Basophils % 0.7 % (0.1-2.0); Eosinophils # 0.2 K/mm3 (0.0-0.4); Eosinophils % 2.5 % (0.1-12.0); Hemoglobin 12.2 g/dL (12.2-16.2); Lymphocytes # 2.5 K/mm3 (0.7-4.5); Lymphocytes % 29.4 % (10-50); Mean Corpuscular HGB Conc 32.9 g/dL (31.8-35.4); Mean Corpuscular Volume 82.1 fl (81-99); Mean Platelet Volume 8.5 fl (7.4-10.4); Monocytes # 0.4 K/mm3 (0.1-1.0); Monocytes % 4.5 % (1.7-9.3); Neutrophils # 5.3 K/mm3 (1.8-7.8); Neutrophils % 62.9 % (37.0-80.0); Platelet Count 409 K/mm3 (142-424); Red Blood Count 4.51 M/mm3 (4.20-5.40); Red Cell Distribution Width 15.1 % (11.5-17.5); White Blood Count 8.5 K/mm3 (4.8-10.8)
[2023-11-09 18:26] LABS: Alanine Aminotransferase 101 U/L (12-78); Albumin Level 3.5 g/dl (3.5-5.0); Alkaline Phosphatase 350 U/L (38-126); Aspartate Amino Transferase 63 U/L (14-36); Bilirubin,Direct 0.3 mg/dl (0.0-0.4); Bilirubin,Total 0.3 mg/dl (0.2-1.3); Total Protein,Serum 6.9 g/dl (6.3-8.2)
== END 2023-11-09 23:59 ==
LOC: LAB.DROPOF 23:09
PROVIDERS: PCP Nurse Practitioner Family; Visit Provider Nurse Practitioner Family
DX: R05.1 Acute cough (principal); R74.8 Abnormal levels of other serum enzymes
CPT/HCPCS: 80076; 85025; 87635

== ENCOUNTER 2023-11-19 14:00 | Outpatient (CLI) | payer MEDICARE, MEDICAID, SELFPAY | END 2023-11-19 23:59 | LOC: LAB.DROPOF 11-20 09:21 | PROVIDERS: PCP Podiatrist; Visit Provider Podiatrist | DX: T81.31XA Disruption of external operation (surgical) wound, not elsewhere classified, initial encounter (principal); Z98.890 Other specified postprocedural states; M79.672 Pain in left foot; B95.2 Enterococcus as the cause of diseases classified elsewhere | CPT/HCPCS: 87070; 87205 ==

== ENCOUNTER 2023-11-29 16:19 | Outpatient (CLI) | payer MEDICARE, MEDICAID, SELFPAY ==
[2023-11-29 16:52] LABS: Basophils % 0.2 % (0.1-2.0); Eosinophils # 0.1 K/mm3 (0.0-0.4); Eosinophils % 1.9 % (0.1-12.0); Hematocrit 38.9 % (37.0-47.0); Hemoglobin 12.3 g/dL (12.2-16.2); Lymphocytes # 2.3 K/mm3 (0.7-4.5); Lymphocytes % 34.2 % (10-50); Mean Corpuscular HGB Conc 31.7 g/dL (31.8-35.4); Mean Corpuscular Hemoglobin 27.1 pg (27.0-31.2); Mean Corpuscular Volume 85.5 fl (81-99); Mean Platelet Volume 9.6 fl (7.4-10.4); Monocytes # 0.4 K/mm3 (0.1-1.0); Monocytes % 5.7 % (1.7-9.3); Neutrophils # 3.8 K/mm3 (1.8-7.8); Platelet Count 158 K/mm3 (142-424); Red Blood Count 4.55 M/mm3 (4.20-5.40); Red Cell Distribution Width 15.3 % (11.5-17.5); White Blood Count 6.6 K/mm3 (4.8-10.8)
[2023-11-29 17:04] LABS: Hemoglobin A1C 7.8 % (4.0-6.0)
[2023-11-29 17:44] LABS: Alanine Aminotransferase 25 U/L (12-78); Albumin Level 3.7 g/dl (3.5-5.0); Albumin/Globulin Ratio 1.2 (1.1-1.8); Alkaline Phosphatase 129 U/L (38-126); Anion Gap 10.2 mEq/L (5-15); Aspartate Amino Transferase 38 U/L (14-36); Bilirubin,Total 0.4 mg/dl (0.2-1.3); Blood Urea Nitrogen 22 mg/dl (7-17); Calcium 8.7 mg/dl (8.4-10.2); Carbon Dioxide 30 mmol/L (22.0-30.0); Chloride 105 mmol/L (98-107); Estimated Glomerular Filt Rate 73 ml/min (>60); GFR (African American) 88 ML/MIN (>60); Glucose 171 mg/dl (74-100); Potassium 4.2 mmoL/L (3.5-5.1); Sodium 141 mmol/L (136-145); Total Protein,Serum 6.7 g/dl (6.3-8.2)
[2023-11-29 18:15] LABS: Thyroid Stimulating Hormone 0.09 uIU/mL (0.465-4.68)
[2023-11-29 18:50] LABS: Vitamin B12 643 pg/mL (239-931)
[2023-11-30 11:34] LABS: Rapid Plasma Reagin Ab Titer Non Reactive titer (NonRea<1:1)
[2023-12-02 10:14] LABS: Antinuclear Antibodies (ANA) Negative
[2023-12-06 16:34] LABS: Vitamin B1 108.5 nmol/L (66.5-200.0)
== END 2023-11-29 23:59 ==
LOC: LAB 16:20
PROVIDERS: PCP Nurse Practitioner Family; Visit Provider Nurse Practitioner Family
DX: F39 Unspecified mood [affective] disorder (principal); G47.9 Sleep disorder, unspecified; G93.40 Encephalopathy, unspecified; R44.3 Hallucinations, unspecified; Z85.850 Personal history of malignant neoplasm of thyroid; Z86.69 Personal history of other diseases of the nervous system and sense organs; E89.0 Postprocedural hypothyroidism; E11.9 Type 2 diabetes mellitus without complications; Z79.4 Long term (current) use of insulin; Z79.899 Other long term (current) drug therapy; R74.8 Abnormal levels of other serum enzymes
CPT/HCPCS: 36415; 80053; 82607; 82746; 83036; 84425; 84443; 85025; 86038; 86225; 86235; 86593

== ENCOUNTER 2023-12-04 13:26 | Outpatient (CLI) | payer MEDICARE, MEDICAID, SELFPAY ==
[2023-12-03 17:53] LABS: Alanine Aminotransferase 42 U/L (12-78); Albumin Level 3.8 g/dl (3.5-5.0); Albumin/Globulin Ratio 1.2 (1.1-1.8); Alkaline Phosphatase 133 U/L (38-126); Anion Gap 9.5 mEq/L (5-15); Aspartate Amino Transferase 36 U/L (14-36); Bilirubin,Total 0.3 mg/dl (0.2-1.3); Blood Urea Nitrogen 16 mg/dl (7-17); Calcium 8.8 mg/dl (8.4-10.2); Carbon Dioxide 31 mmol/L (22.0-30.0); Chloride 104 mmol/L (98-107); Estimated Glomerular Filt Rate 85 ml/min (>60); GFR (African American) 103 ML/MIN (>60); Globulin 3.1 g/dL (1.3-3.2); Glucose 124 mg/dl (74-100); Potassium 4.5 mmoL/L (3.5-5.1); Sodium 140 mmol/L (136-145); Total Protein,Serum 6.9 g/dl (6.3-8.2)
[2023-12-03 18:24] LABS: Thyroid Stimulating Hormone 0.21 uIU/mL (0.465-4.68)
[2023-12-03 20:20] LABS: Free T4 (Free Thyroxine) 1.45 ng/dl (0.78-2.19)
[2023-12-04 10:32] LABS: Triiodothyronine (T3) Free 2.8 pg/mL (2.0-4.4)
== END 2023-12-04 23:59 ==
LOC: LAB.DROPOF 13:27
PROVIDERS: PCP Nurse Practitioner Family; Visit Provider Nurse Practitioner Family
DX: E03.9 Hypothyroidism, unspecified (principal); R74.8 Abnormal levels of other serum enzymes
CPT/HCPCS: 80053; 84439; 84443; 84481

== ENCOUNTER 2023-12-05 14:33 | Outpatient (CLI) | payer MEDICARE, MEDICAID, SELFPAY ==
--- NOTE | 2023-12-05 14:33 | US_ITS ---
PROCEDURE: US TRANSVAGINAL CLINICAL INDICATION: RT Ovarian Cyst COMPARISON: CT CT ABDOMEN PELVIS WO/W CON from 10/31/2023 FINDINGS: Transvaginal sonographic images of the pelvis were obtained. UTERUS: Surgically absent The vaginal vault is intact. LEFT OVARY: 3.2cmx1.8 cmx1.7cm with a volume of 5ml. There is a small, well-circumscribed solid-appearing area within the left ovary that measures 1.0 cm x 0.91 cm x 0.88 cm there is flow around this area. There is a small follicle measuring 0.7 cm. Inferior to the left ovary there is a cystic area that measures 0.6 cm x 2.7 cm x 1.1 cm. Possible hydrosalpinx. RIGHT OVARY: 3.2 cmx 1.8 cmx1.7 cm with a volume of 8.2ml. There is a follicle measuring 1.1 cm x 1.5 cm x 1.6 cm. There is a 2nd small follicle measuring 0.9 cm. Both ovaries are seen and appear normal. Doppler flow to both ovaries are seen. There is no fluid in the cul-de-sac. IMPRESSION: 1. The uterus has been surgically removed. The vaginal vault is intact. 2. Right ovary is seen and has 2 follicles measuring 1.6 cm and 0.9 cm. 3. Within the left ovary is a small solid area measuring 1.0 cm in size. There is flow around this area. 4. Inferior to the left ovary is a cystic area measuring 0.6 cm x 2.7 cm. Possibly a hydrosalpinx. 5. Both ovaries have a few small calcifications within them. 6. No fluid in the cul-de-sac. Dictated by: Cali Diez MD 12/05/2023 17:08 Cali Diez MD in [place] 12/05/2023 17:08
== END 2023-12-05 23:59 ==
LOC: RAD 14:33
PROVIDERS: PCP Nurse Practitioner Family; Visit Provider Obstetrics & Gynecology
DX: N83.201 Unspecified ovarian cyst, right side (principal)
CPT/HCPCS: 76830

== ENCOUNTER 2023-12-17 11:56 | Outpatient (CLI) | payer MEDICARE, MEDICAID, SELFPAY ==
--- NOTE | 2023-12-17 12:06 | XR_ITS ---
FINAL REPORT CLINICAL HISTORY: postop wound..foot pain COMPARISON: 10/24/2023 FINDINGS: LEFT FOOT: Three views of the left foot were obtained. There are postoperative changes in the left foot from a triple arthrodesis. There are multiple screws and a lateral staple present. There appears to be a fracture of the medial aspect of the navicular with medial migration of the screw that is in this region. Degenerative changes of the midfoot are present. A plantar calcaneal spur is again noted. There are dorsal and medial soft tissue calcifications noted as well as soft tissue edema. IMPRESSION: Postoperative changes from a triple arthrodesis as described. There appears to be a fracture of the medial aspect of the navicular, not seen on the prior exam of October 24. Reviewed, Interpreted and Dictated by Boy Bonner III, MD Transcribed by Tianna Means Authenticated and [facility]
== END 2023-12-17 23:59 ==
LOC: RAD 11:58
PROVIDERS: PCP Nurse Practitioner Family; Visit Provider Podiatrist
DX: T81.31XA Disruption of external operation (surgical) wound, not elsewhere classified, initial encounter (principal)
CPT/HCPCS: 73630

== ENCOUNTER 2023-12-18 07:06 | Outpatient (CLI) | payer MEDICARE, MEDICAID, SELFPAY ==
--- NOTE | 2023-12-18 07:24 | MR_ITS ---
FINAL REPORT CLINICAL HISTORY: encephalopathy. MEMORY LOSS. CONFUSION. HEADACHE COMPARISON: None FINDINGS: Multiplanar MR imaging of the brain was performed without and with contrast. There is mild age-appropriate atrophy. Scattered foci of increased T2 signal are seen in the cerebral white matter that have a nonspecific appearance but likely represent mild chronic ischemic/gliotic changes. There is no evidence of intracranial hemorrhage or mass. No abnormal ventricular dilatation is identified. There is no evidence of shift of the midline structures. No abnormal extra-axial fluid collection is seen. There is a chronic lacunar infarct in the left centrum semiovale. No area of acute abnormal restricted diffusion is identified. The posterior fossa and brainstem have an unremarkable appearance. No abnormal contrast enhancement is seen. Normal major vessel vascular flow voids are seen. IMPRESSION: Mild atrophy and chronic ischemic/gliotic changes. No acute intracranial abnormality. Reviewed, Interpreted and Dictated by Boy Bonner III, MD Transcribed by Linda Simmons Authenticated and [facility]
[2023-12-18] MEDS: SODIUM CHLORIDE 0.9% 10ML SYR (RAD ONLY) 10 ML IV (08:16)
[2023-12-18] MEDS: GADOTERIDOL INJ 17ML SYRINGE 18 ML IV (08:16)
== END 2023-12-18 23:59 ==
LOC: RAD 07:06
PROVIDERS: PCP Nurse Practitioner Family; Visit Provider Nurse Practitioner Family
DX: Z85.850 Personal history of malignant neoplasm of thyroid (principal); G93.40 Encephalopathy, unspecified; R44.3 Hallucinations, unspecified
CPT/HCPCS: 70553; A9576

== ENCOUNTER 2023-12-24 11:13 | Outpatient (CLI) | payer MEDICARE, MEDICAID, SELFPAY ==
[2023-12-24 11:51] LABS: Adenovirus F 40/41, stool Not Detected (NotDetected); Astrovirus Not Detected (NotDetected); Campylobacter Not Detected (NotDetected); Clostridium Difficile A/B, PCR Not Detected (NotDetected); Cryptosporidium Not Detected (NotDetected); Cyclospora Cayetanesis Not Detected (NotDetected); Entamoeba histolytica Not Detected (NotDetected); Enteroaggregative E coli Not Detected (NotDetected); Enterotoxigenic E coli Not Detected (NotDetected); Giardia lamblia Not Detected (NotDetected); Norovirus Not Detected (NotDetected); Plesimonas Shigalloides, PCR Not Detected (NotDetected); Rotavirus A Not Detected (NotDetected); Salmonella, PCR Not Detected (NotDetected); Sapovirus Not Detected (NotDetected); Shiga-like toxin E coli Not Detected (NotDetected); Shigella Enterovasive E coli Not Detected (NotDetected); Vibrio Cholerae Not Detected (NotDetected); Vibrio, PCR Not Detected (NotDetected); Yersinia Entercolitica, PCR Not Detected (NotDetected)
[2023-12-28 13:26] LABS: Enteropathogenic E coli Detected (NotDetected)
== END 2023-12-24 23:59 ==
LOC: LAB 11:13
PROVIDERS: Physician Assistant; PCP Nurse Practitioner Family; Visit Provider Obstetrics & Gynecology
DX: R19.7 Diarrhea, unspecified; N83.201 Unspecified ovarian cyst, right side; Z79.899 Other long term (current) drug therapy
CPT/HCPCS: 36415; 86316; 87506

== ENCOUNTER 2023-12-31 09:36 | Outpatient (CLI) | payer MEDICARE, MEDICAID, SELFPAY ==
[2023-12-31 11:55] LABS: Chloride 111 mmol/L (98-107); Sodium 143 mmol/L (136-145)
[2023-12-31 11:56] LABS: Potassium 3.8 mmoL/L (3.5-5.1)
[2023-12-31 11:58] LABS: Alanine Aminotransferase 18 U/L (12-78); Albumin/Globulin Ratio 1.4 (1.1-1.8); Alkaline Phosphatase 96 U/L (38-126); Anion Gap 8.8 mEq/L (5-15); Aspartate Amino Transferase 25 U/L (14-36); Bilirubin,Total 0.4 mg/dl (0.2-1.3); Blood Urea Nitrogen 25 mg/dl (7-17); Calcium 9.3 mg/dl (8.4-10.2); Carbon Dioxide 27 mmol/L (22.0-30.0); Estimated Glomerular Filt Rate 85 ml/min (>60); GFR (African American) 103 ML/MIN (>60); Globulin 2.8 g/dL (1.3-3.2); Glucose 101 mg/dl (74-100); Total Protein,Serum 6.8 g/dl (6.3-8.2)
[2023-12-31 11:58] LABS: Chol/HDL Ratio 4.5 (1-3.5); Cholesterol 167 mg/dl (140-200); HDL Cholesterol 37 mg/dl (40-60); Triglycerides 129 mg/dl (30-150); VLDL Cholesterol 26 mg/dL (0-40)
[2023-12-31 12:06] LABS: C-Reactive Protein 8.7 mg/L (0-4)
[2023-12-31 12:10] LABS: Direct LDL Cholesterol 84.64 mg/dL (100-129)
[2023-12-31 12:13] LABS: 25-OH Vitamin D, Total 102 ng/mL (30-100)
[2023-12-31 12:18] LABS: Free T4 (Free Thyroxine) 1.93 ng/dl (0.78-2.19)
[2023-12-31 12:31] LABS: Thyroid Stimulating Hormone 0.93 uIU/mL (0.465-4.68)
[2023-12-31 14:04] LABS: Vitamin B12 475 pg/mL (239-931)
[2023-12-31 14:06] LABS: Hemoglobin A1C 7.8 % (4.0-6.0)
[2023-12-31 15:16] LABS: Microalbumin/Creatinine Ratio 5.3
[2023-12-31 15:43] LABS: Creatinine,Urine Random 196 mg/dL (Not Estab.)
[2024-01-01 08:17] LABS: Triiodothyronine (T3) Free 2.3 pg/mL (2.0-4.4)
[2024-01-03 12:29] LABS: Miscellaneous Test SCANNED IMAGE
== END 2023-12-31 23:59 ==
PROVIDERS: PCP Nurse Practitioner Family; Visit Provider Hospitalist
DX: E11.69 Type 2 diabetes mellitus with other specified complication; E55.9 Vitamin D deficiency, unspecified; Z79.4 Long term (current) use of insulin; C73 Malignant neoplasm of thyroid gland; E78.5 Hyperlipidemia, unspecified; E89.0 Postprocedural hypothyroidism
CPT/HCPCS: 36415; 80053; 80061; 82043; 82306; 82570; 82607; 83036; 84439; 84443; 84481; 86140

== ENCOUNTER → 2024-01-01 20:15 | Outpatient (CLI) | payer MEDICARE, MEDICAID, SELFPAY | LOC: SL 20:19 | PROVIDERS: PCP Nurse Practitioner Family; Visit Provider Nurse Practitioner Family | DX: G47.33 Obstructive sleep apnea (adult) (pediatric) (principal); G47.61 Periodic limb movement disorder; G93.40 Encephalopathy, unspecified; R44.3 Hallucinations, unspecified; F39 Unspecified mood [affective] disorder; Z85.850 Personal history of malignant neoplasm of thyroid | CPT/HCPCS: 95810 ==

== ENCOUNTER 2024-01-03 16:00 | Outpatient (RCR) | payer MEDICARE, MEDICAID, SELFPAY ==
--- NOTE | 2023-11-21 15:05 | HMH.PTOPWND ---
Rehab Outpt Wound Evaluation Rehab OP Wound Evaluation Start: 11/21/23 14:51 Freq: Status: Active Protocol: Document 11/21/23 14:51 JUDAH (Rec: 11/21/23 15:05 PHORFIDENCIO [id number]) E-signed By Manuel Colon, PT Subjective/History History History This is the initial PT eval for Angeles Machado, 63 yowf who presents with delayed wound healing after L foot surgery performed ~ 1 mo ago. She has continued edema and pain in the L foot. She presents with dressing intact after DPM visit 3 days ago with minimal strikethrough on the lateral side. Her PMH includes: Abdominal pain Acquired pes planus of both feet Arthritis Asthma Atypical chest pain CAD (coronary artery disease) Chest pain Cholecystectomy planned Class 1 obesity COVID-19 virus infection Depression Diabetes mellitus Diabetes mellitus Diabetes mellitus with diabetic neuropathy Diabetes mellitus, type 2 Dysphagia Enlarged lymph nodes Esophageal dilatation Esophageal stricture Fibromyalgia GERD (gastroesophageal reflux disease) History of kidney stones History of thyroid cancer Hyperlipidemia Hypertension Hypothalamic hypothyroidism Hypothyroidism (acquired) Left ankle instability Left sided numbness Low TSH level Lymphadenopathy Migraine Nausea Nodule of soft tissue Obesity, Class II, BMI 35-39.9 Osteoarthritis of left foot Other specified symptoms and signs involving the circulatory and respiratory systems Posterior tibial tendinitis of left lower extremity Posterior tibial tendon dysfunction (PTTD) of left lower extremity Postoperative pain Postoperative pain of extremity Preoperative clearance Right lower lobe pneumonia Rupture of tibialis posterior tendon Screening for breast cancer Screening for colon cancer Sinusitis Skin lesion Sleep apnea Synovitis of left ankle Thyroid cancer UTI (urinary tract infection) White matter disease Subjective Subjective She presents with sutures to the heel and plantar surface of the L foot. She reports continued numbness due to neuropathy. She has multiple batsheva in both medial and lateral incision wounds. 1+ pitting edema in the L foot. New diagnosis of cancer in past 12 No months? Wound Eval Wound Left Lateral Foot Wound Type Incision Is This a Chronic Wound Yes Wound Length (cm) 8.4 Wound Width (cm) 3.1 Wound Depth (cm) 1.2 Number of [place] 8 Wound Bed Appearance Beefy Red,Yellow Percentage Granulated (%) 50 Percentage of Slough (%) 50 Wound Margins Description Well Defined Surrounding Tissue Appearance Bright Red Edema Type Pitting Edema Degree 1+ Query Text:1+ Trace, Barely Detectable, Rebound 15-30 seconds 2+ Moderate, Slight Indentation, Rebound 10-20 seconds 3+ Deep, Deeper Indentation, Rebound > 30 seconds 4+ Very Deep, Rebound > 60 seconds Edema Appearance Puffy Drainage Description Serosanguineous Drainage Amount Large Wound Topical Solution/Irrigant Saline Irrigant Primary Dressing Silver Dressing Comment opticell Ag Wound Secondary Dressing Type Absorbant Pad,Gauze Roll/Wrap, Adhering Gauze Roll Comment optilock Wound Debridement Method Forceps,Gauze,Mechanical Wound Debridement Amount of Tissue Minimal Removed Dressing Change Patient Tolerance Tolerated Well Left Medial Foot Wound Type Incision Is This a Chronic Wound Yes Wound Length (cm) 6.2 Wound Width (cm) 2.0 Wound Depth (cm) 0.1 Number of [place]ats[place] 6 Wound Bed Appearance Beefy Red,[place] Percentage Granulated (%) 100 Wound Margins Description Well Defined Surrounding Tissue Appearance Lindon Edema Type Pitting Edema Degree 1+ Query Text:1+ Trace, Barely Detectable, Rebound 15-30 seconds 2+ Moderate, Slight Indentation, Rebound 10-20 seconds 3+ Deep, Deeper Indentation, Rebound > 30 seconds 4+ Very Deep, Rebound > 60 seconds Edema Appearance Puffy Drainage Description Serosanguineous Drainage Amount Small Wound Topical Solution/Irrigant Saline Irrigant Primary Dressing Silver Dressing Comment opticell Ag Wound Secondary Dressing Type Gauze Roll/Wrap,Elastic Bandage Wound Debridement Method Gauze,Mechanical Wound Debridement Amount of Tissue None Removed Dressing Change Patient Tolerance Tolerated Well Wound Problems/Impairments Impairments Problems/Impairmments Palpation Tenderness,Impaired Strength,Impaired Endurance, Impaired Transfers,Impaired Gait Pattern,Impaired Walking, Impaired Standing,Impaired Household Care,Impaired Recreational Activities, Increased Edema,Lymphedema Present,Wound Care Needs, Subjective C/O Pain,Impaired Self Care/Self Management Prognosis Rehab Potential Good Clinical Impression Consistent with Diagnosis Yes Short Term Goals Number of Weeks 4 Decrease Edema Yes: no pitting edema L LE Decrease Wound Area Yes: by 25% Patient to Understand Lymphedema Yes Treatment and Exercises Fdc Goals Number of Weeks 6-8 Improve Ability For Household Care Yes Decrease Lymphedema Yes: minimal chronic edema L LE Decrease Wound Area Yes: by 75% Decrease Drainage Yes: to minimal Patient to be Ind w/ HEP Yes Patient to Adhere Lymphedema Precautions Yes Outpatient Therapy Plan of Care Treatment Plan May Include Therapeutic Exercise Including Home Yes Exercise Program Manual Therapy Techniques Yes Neuromuscular Re-education Yes Therapeutic Activities to Return to Yes Previous Functional/Work Level ADL/Self Care Education Yes Orthotics/Bracing/Splinting Yes Manual Lymphatic Drainage Yes Wound Care Yes Eval/Re-Eval Yes Frequency Times per week 1-2 Duration Number of Weeks 6-8 Addendums This patient is a candidate for social No or vocational rehab? Patient/Guardian verbally acknowledges Yes understanding of treatment program and consents to further treatment? Patient/Guardian verbally acknowledges Yes understanding of diagnosis, prognosis and goals for treatment? Eval Complexity PT Charges 54724 - High Complexity PHYSICIAN CERTIFICATION: I certify the specified therapy services for Angeles Machado are required, authorized, and reviewed every 30 days.
--- NOTE | 2023-12-27 15:53 | HMH.RHREAS ---
Rehab Reassessment Rehab OP Re-assessment Start: 11/21/23 14:51 Freq: Status: Active Protocol: Document 12/27/23 15:49 [email or web address] (Rec: 12/27/23 15:53 PHORFIDENCIO [id number]) E-signed By Manuel Colon PT Rehab Re-assessment Subjective Subjective Pt reports significantly less pain and tenderness throughout the L foot at this time. Objective Objective Notes L lateral foot wound: L= 1.0 cm, W= 2.4 cm, D= 0.4 cm L medial foot wound: L= 0.9 cm , W= 1.2 cm, D= 0.1 cm 1+ pitting edema L foot. Assessment Progress Assessment Progressing as Expected Assessment Notes Pt has shown significant overall reduction in wound surface areas of L foot with imporved granulation tissue noted. She continues to need skilled intervention to return to prior level of function. Patient goals met ST,2,3 Goals Not Met LT,2,3,4,5,6 Plan Plan Continue per initial POC. Frequency of Therapy 2 x/wk Duration of therapy 4 wks Time and Billing Re-Eval Time 12 Re-Eval Billing Units 1 PHYSICIAN CERTIFICATION: I certify the specified therapy services for Angeles Machado are required, authorized, and reviewed every 30 days.
== END 2024-01-03 16:05 | disposition home or self-care (01) ==
LOC: PT 16:00
PROVIDERS: PCP Nurse Practitioner Family; Visit Provider Podiatrist
DX: M79.672 Pain in left foot (principal); R60.0 Localized edema; T81.31XA Disruption of external operation (surgical) wound, not elsewhere classified, initial encounter; T81.49XA Infection following a procedure, other surgical site, initial encounter; Z98.890 Other specified postprocedural states
CPT/HCPCS: 97163; 97164; 97597

== ENCOUNTER 2024-01-22 12:26 | Outpatient (CLI) | payer MEDICARE, MEDICAID, SELFPAY ==
--- NOTE | 2024-01-22 12:29 | XR_ITS ---
FINAL REPORT CLINICAL HISTORY: postop foot COMPARISON: 12/17/2023 FINDINGS: AP, oblique and lateral views of the left foot were obtained. There is sclerosis and disorganization of the posterior tarsal bones. There are 4 screws and a stable securing the talocalcaneal, talonavicular, and calcaneocuboid articulations. The overall appearance is similar to the prior exam of 12/17/2023. IMPRESSION: Fusion of the talocalcaneal, talonavicular, and calcaneocuboid articulations, overall appearance similar to the prior exam of December 16. Reviewed, Interpreted and Dictated by Jt Cole MD Transcribed by Tianna Means Authenticated and [facility]
== END 2024-01-22 23:59 ==
LOC: RAD 12:27
PROVIDERS: PCP Nurse Practitioner Family; Visit Provider Podiatrist
DX: M79.672 Pain in left foot (principal); T81.31XD Disruption of external operation (surgical) wound, not elsewhere classified, subsequent encounter
CPT/HCPCS: 73630

== ENCOUNTER 2024-02-02 15:21 | Emergency (ER) | payer MEDICARE, MEDICAID, SELFPAY ==
[2024-02-02 15:23] VITALS: BP 146/69; PULSE 73; RESP 13; TEMP 36.5; O2SAT 100; BMI 31.3
[2024-02-02 16:03] VITALS: BP 152/78
[2024-02-02 16:10] LABS: Coronavirus 19, PCR Not Detected (NotDetected); Influenza A, PCR Not Detected (NotDetected); Influenza B, PCR Not Detected (NotDetected)
[2024-02-02 16:12] LABS: Basophils % 0.9 % (0.1-2.0); Eosinophils % 0.9 % (0.1-12.0); Hematocrit 41.6 % (37.0-47.0); Hemoglobin 13.3 g/dL (12.2-16.2); Lymphocytes # 1.1 K/mm3 (0.7-4.5); Mean Corpuscular HGB Conc 32.1 g/dL (31.8-35.4); Mean Corpuscular Hemoglobin 25.6 pg (27.0-31.2); Mean Corpuscular Volume 79.9 fl (81-99); Mean Platelet Volume 8.8 fl (7.4-10.4); Monocytes # 0.3 K/mm3 (0.1-1.0); Monocytes % 6.6 % (1.7-9.3); Neutrophils # 3.1 K/mm3 (1.8-7.8); Neutrophils % 67.6 % (37.0-80.0); Platelet Count 188 K/mm3 (142-424); Red Blood Count 5.21 M/mm3 (4.20-5.40); Red Cell Distribution Width 15.3 % (11.5-17.5); White Blood Count 4.6 K/mm3 (4.8-10.8)
[2024-02-02] MEDS: KETOROLAC 30MG/ML VIAL 15 MG IV (16:12)
[2024-02-02] MEDS: ONDANSETRON 4MG/2ML VIAL 4 MG IV (16:12)
[2024-02-02] MEDS: ACETAMINOPHEN 1,000MG/100ML VIAL 1000 MG IV (16:12)
[2024-02-02] MEDS: LACTATED RINGERS 1000ML 1,000 ML 999 ML IV (16:13)
[2024-02-02 16:20] LABS: Alanine Aminotransferase 37 U/L (12-78); Albumin Level 4.3 g/dl (3.5-5.0); Albumin/Globulin Ratio 1.7 (1.1-1.8); Alkaline Phosphatase 56 U/L (38-126); Aspartate Amino Transferase 39 U/L (14-36); Bilirubin,Total 0.4 mg/dl (0.2-1.3); Blood Urea Nitrogen 21 mg/dl (7-17); Calcium 9.3 mg/dl (8.4-10.2); Carbon Dioxide 25 mmol/L (22.0-30.0); Chloride 109 mmol/L (98-107); Creatinine Clearance Estimated 77 mL/min (50-200); Estimated Glomerular Filt Rate 50 ml/min (>60); GFR (African American) 61 ML/MIN (>60); Globulin 2.6 g/dL (1.3-3.2); Glucose 121 mg/dl (74-100); Lipase 51 U/L (23-300); Sodium 143 mmol/L (136-145); Total Protein,Serum 6.9 g/dl (6.3-8.2)
--- NOTE | 2024-02-02 17:07 | ED_ITS ---
Discharge Plan Disposition Patient Disposition: Home, Self-Care Condition: Good Prescriptions Prescriptions: New ondansetron 4 mg tablet,disintegrating 4 mg PO Q8H PRN (Reason: nausea and vomiting) 4 Days Qty: 12 0RF No Action aspirin 81 mg tablet,delayed release (DR/EC) 81 mg PO DAILY meloxicam 15 mg tablet 15 mg PO PM epinephrine [EpiPen] 0.3 mg/0.3 mL auto-injector 0.3 mg IM Q5-15M PRN (Reason: Allergy Symptoms) Rx Instructions: Do not exceed 3 doses per episode montelukast 10 mg tablet 10 mg PO PM albuterol sulfate [ProAir HFA] 90 mcg/actuation HFA aerosol inhaler 2 inh INHALATION Q4-6H PRN (Reason: Shortness Of Breath) Repatha SureClick 140 mg/mL pen injector 140 mg SQ QOW ergocalciferol (vitamin D2) 1,250 mcg (50,000 unit) capsule 50,000 unit PO .TWICE A WEEK ketotifen fumarate [Zaditor] 0.025 % (0.035 %) drops 1 drp ophthalmic (eye) BID Rx Instructions: Administer at least 8 hours apart Trulicity 3 mg/0.5 mL pen injector 3 mg SQ WEEKLY 90 Days Qty: 6.5 0RF glimepiride 4 mg tablet 4 mg PO DAILY 90 Days Qty: 90 1RF isosorbide mononitrate 30 mg tablet extended release 24 hr 30 mg PO DAILY 90 Days Qty: 90 1RF losartan 50 mg tablet 50 mg PO BID 90 Days Qty: 180 1RF levothyroxine 150 mcg tablet 150 mcg PO DAILY 90 Days Qty: 90 0RF levocetirizine 5 mg tablet 5 mg PO AM 90 Days Qty: 90 2RF metoprolol succinate 50 mg tablet extended release 24 hr 50 mg PO PM 90 Days Qty: 90 2RF pantoprazole 40 mg tablet,delayed release (DR/EC) 40 mg PO DAILY 90 Days Qty: 90 2RF venlafaxine 150 mg capsule,extended release 24hr 150 mg PO DAILY 90 Days Qty: 90 2RF oxybutynin chloride 10 mg tablet extended release 24hr 10 mg PO DAILY Qty: 90 3RF estradiol 0.01 % (0.1 mg/gram) cream See Rx Instructions vaginal .COMPLEX Qty: 42.5 2RF Rx Instructions: Using finger technique daily for two weeks and then twice weekly vaginally; sucralfate 1 gram tablet 1 g PO TID insulin degludec [Tresiba FlexTouch U-100] 100 unit/mL (3 mL) insulin pen 58 unit SQ DAILY tizanidine 4 mg tablet 4 mg PO TID PRN (Reason: Muscle Pain ) ondansetron 4 mg tablet,disintegrating 4 mg PO Q6H PRN (Reason: Nausea And Vomiting) Referrals Follow up/Referrals: Mercy Guevara APRN [Primary Care Provider] - See instructions Activity Restrictions/Add. Instructions Additional Instructions/Restrictions: You were evaluated in the emergency department today. 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 Orally hydrate. Eat a bland diet until your symptoms have resolved. Return to the emergency department for new or worsening symptoms. Follow-up with your primary care provider over the next week. Clinical Impressions Clinical Impression: Gastroenteritis Instructions Patient Instructions: DI for Diarrhea and Traveler's Diarrhea -- Adult, DI for Nausea -- Adult Discharge ED Provider: Connie Sims General Adult HPI General Chief complaint: Nausea/Vomiting/Diarrhea Stated complaint: vomiting,diarrhea,body aches Time Seen by Provider: 02/02/24 15:46 Mode of Arrival: Ambulatory Source of Information: Patient Limitations: No Limitations Description of Symptoms (Recalled from ER Triage Doc. by RN): pt presents to ED with c/o nausea, vomitting, diarrhea, that began sunday. pt reports being around sick family members. History of Present Illness HPI narrative: This patient is a 63-year-old female with a history of obesity, SATYA, diabetes, hypothyroidism presented to the emergency department for evaluation with concern for nausea, vomiting, and diarrhea that started 3 days ago. She notes a family at home is also had similar symptoms. She states she is not able to keep much down. Emesis is nonbloody and nonbilious and diarrhea is nonbloody. No abdominal pain associated with this. Related Data Home Medications Medication Instructions Recorded Confirmed aspirin 81 mg tablet,delayed 81 mg PO DAILY 12/01/20 01/29/24 release epinephrine 0.3 mg/0.3 mL 0.3 mg IM Q5-15M PRN Allergy 12/01/20 01/29/24 injection, auto-injector (EpiPen) Symptoms meloxicam 15 mg tablet 15 mg PO PM 12/01/20 01/29/24 montelukast 10 mg tablet 10 mg PO PM 12/01/20 01/29/24 albuterol sulfate 90 mcg/actuation 2 inh inhalation Q4-6H PRN 07/02/23 01/29/24 aerosol inhaler (ProAir HFA) Shortness Of Breath ergocalciferol (vitamin D2) 1,250 50,000 unit PO .TWICE A WEEK 07/02/23 01/29/24 mcg (50,000 unit) capsule evolocumab 140 mg/mL subcutaneous 140 mg SQ QOW 07/02/23 01/29/24 pen injector (Lopez Burger) ketotifen fumarate 0.025 % (0.035 1 drp ophthalmic (eye) BID 07/02/23 01/29/24 %) eye drops (Zaditor) insulin degludec 100 unit/mL (3 58 unit SQ DAILY 08/01/23 01/29/24 mL) subcutaneous pen (Tresiba FlexTouch U-100 insulin) ondansetron 4 mg disintegrating 4 mg PO Q6H PRN Nausea And Vomiting 10/24/23 01/29/24 tablet tizanidine 4 mg tablet 4 mg PO TID PRN Muscle Pain 10/24/23 01/29/24 sucralfate 1 gram tablet 1 g PO TID 12/24/23 01/29/24 Previous Rx's Medication Instructions Recorded dulaglutide 3 mg/0.5 mL 3 mg (0.5 mL) SQ WEEKLY 90 days 12/31/23 subcutaneous [facility]6.[facility] estradiol 0.01% (0.1 mg/gram) See Rx Instructions vaginal 12/31/23 vaginal cream .COMPLEX #42.5 grams glimepiride 4 mg tablet 4 mg PO DAILY 90 days #90 tabs 12/31/23 isosorbide mononitrate 30 mg 30 mg PO DAILY 90 days #90 tabs 12/31/23 tablet,extended release 24 hr levocetirizine 5 mg tablet 5 mg PO AM 90 days #90 tabs 12/31/23 levothyroxine 150 mcg tablet 150 mcg PO DAILY 90 days #90 tabs 03/25/24 losartan 50 mg tablet 50 mg PO BID 90 days #180 tabs 12/31/23 metoprolol succinate 50 mg 50 mg PO PM 90 days #90 tabs 12/31/23 tablet,extended release 24 hr oxybutynin chloride 10 mg 10 mg PO DAILY #90 tabs 12/31/23 tablet,extended release 24 hr pantoprazole 40 mg tablet,delayed 40 mg PO DAILY 90 days #90 tabs 12/31/23 release venlafaxine 150 mg 150 mg PO DAILY 90 days #90 caps 12/31/23 capsule,extended release 24 hr ondansetron 4 mg disintegrating 4 mg PO Q8H PRN nausea and 02/02/24 tablet vomiting 4 days #12 tabs Allergies Allergy/AdvReac Type Severity Reaction Status Date / Time codeine [CODEINE] Allergy Unknown I-ITCHING Verified 01/29/24 14:13 metformin [METFORMIN] Allergy Unknown HIVES, SOA Verified 01/29/24 14:13 pioglitazone [From ACTOS] Allergy Unknown SOA, HIVES Verified 01/29/24 14:13 gabapentin Allergy Verified 01/29/24 14:13 metformin Allergy Mild Gastrointestinal Uncoded 12/31/23 09:55 Upset [facility] Disclaimer: The information contained in this section may have been updated after the patient was seen, as this information can be updated by other users. Medical History SATYA (obstructive sleep apnea) Mild but symptomatic and multiple risk factor for cardiovascular events, mild memory impairment. Trial with AutoPap was discussed and commended, order sent to [facility]. Anxiety Neurocognitive evaluation suggestive of significant anxiety mood disorder CAD (coronary artery disease) Posterior tibial tendon dysfunction (PTTD) of left lower extremity Nausea Abdominal pain Dysphagia Enlarged lymph nodes Nodule of soft tissue Class 1 obesity Diabetes mellitus with diabetic neuropathy Osteoarthritis of left foot Posterior tibial tendinitis of left lower extremity Lymphadenopathy History of thyroid cancer Status post radiation and thyroidectomy Low TSH level Hypothyroidism (acquired) Screening for colon cancer GERD (gastroesophageal reflux disease) Hyperlipidemia White matter disease Fibromyalgia Asthma Sleep apnea Migraine Obesity, Class II, BMI 35-39.9 Synovitis of left ankle Rupture of tibialis posterior tendon Acquired pes planus of both feet Chest pain Cholecystectomy planned Hypothalamic hypothyroidism Arthritis Thyroid cancer Diabetes mellitus Hypertension Atypical chest pain Right lower lobe pneumonia Surgical History History of partial hysterectomy Status post left foot surgery History of colonoscopy History of esophagogastroduodenoscopy (EGD) Hx of heart artery stent H/O gastric sleeve History of foot surgery History of heart artery stent S/P foot surgery, right Family History Mother Diabetes Cancer Father Cancer Hypertension Dementia Grandmother Alzheimer's dementia, late onset Social History Smoking Status: Never smoker alcohol intake: never substance use type: denies use current occupational status: disabled Travel in the last 8 weeks: None household members: family housing: house lives independently: No education level: college service: No caffeine: Yes special ameya needs: No do you feel safe at home: Yes victim of physical abuse: No victim of emotional abuse: No victim of sexual abuse: No would you like helpful sources: No ROS Obtained: Yes All systems reviewed & no additional complaints except as documented Physical Exam General General appearance: alert and in no apparent distress Head Head exam: atraumatic and normocephalic Eye Eye exam: Present normal appearance, PERRL and EOMI ENT ENT exam: Present normal exam, normal oropharynx, mucous membranes moist and normal external ear exam Neck Neck exam: Present normal inspection, full ROM and trachea midline; Absent tenderness Chest Chest inspection: Present normal inspection and symmetric chest wall rise; Absent tenderness Respiratory Respiratory exam: Present normal lung sounds bilaterally; Absent respiratory distress, wheezes, stridor or accessory muscle use Cardiovascular Cardiovascular exam: Present regular rate and normal rhythm Abdominal Exam Abdominal exam: Present soft; Absent distention, tenderness or guarding Extremities Exam Extremities exam: Present normal inspection, full ROM and normal capillary refill; Absent tenderness or edema Back Exam Back exam: Present normal inspection and full ROM; Absent tenderness Neurological Exam Neurological exam: Present alert, oriented X3, CN II-XII intact and normal gait; Absent motor sensory deficit Psychiatric Psychiatric exam: Present normal affect and normal mood Skin Skin exam: Present warm and dry Medical Decision Making Medical Records Medical records reviewed: Yes I reviewed the patient's medical records. Kristofer Inquiry Pt receiving controlled substance: No Vital Signs: 02/02/24 15:23 02/02/24 16:03 02/02/24 17:30 Temperature 97.7 F 97.7 F Temperature Source Oral Oral Pulse Rate 63 Pulse Rate [Left Radial] 73 Respiratory Rate 13 17 Blood Pressure 152/78 H 159/70 H Blood Pressure [Right Arm] 146/69 H Blood Pressure Mean [Right Arm] 94 Blood Pressure Source Automatic Cuff 02 Sat by Pulse Oximetry 100 Oxygen Delivery Method Room Air Room Air Lab Data Lab results reviewed: Yes I reviewed the patient's lab results. Lab Results 02/02/24 15:59: WBC 4.6 L, RBC 5.21, Hgb 13.3, Hct 41.6, MCV 79.9 L, MCH 25.6 L, MCHC 32.1, RDW 15.3, Plt Count 188, MPV 8.8, Neut % (Auto) 67.6, Lymph % (Auto) 24.0, [place] % (Auto) 6.6, Eos % (Auto) 0.9, Baso % (Auto) 0.9, Neut # (Auto) 3.1, Lymph # (Auto) 1.1, [place] # (Auto) 0.3, Eos # (Auto) 0.0, Baso # (Auto) 0.0, Sodium 143, Potassium 4.0, Chloride 109 H, Carbon Dioxide 25, Anion Gap 13.0, B UN 21 H, Creatinine 1.10 H, Estimated Creat Clear 77, Estimated GFR 50 L, Est GFR ( Amer) 61, Glucose 121 H, Calcium 9.3, Total Bilirubin 0.4, AST 39 H , ALT 37, Alkaline Phosphatase 56, Total Protein 6.9, Albumin 4.3, Globulin 2.6, Albumin/Globulin Ratio 1.7, Lipase 51 02/02/24 16:05: SARS-CoV-2 (PCR) Not detected, Influenza A Untype (PCR) Not detected, Influenza Type B (PCR) Not detected 02/02/24 15:59 02/02/24 15:59 Orders (Tests/Meds): ED MEDICATIONS Discontinued Medications Generic Name Dose Route Start Last Admin Trade Name Freq PRN Reason Stop Dose Admin Acetaminophen 1,000 mg 02/02/24 15:55 02/02/24 16:12 Acetaminophen 1,000mg/100ml Vial IV 02/02/24 15:56 1,000 mg ONCE ONE Administration Lactated Ringer's 1,000 mls @ 999 mls/hr 02/02/24 15:55 02/02/24 16:13 Lactated Ringer's 1000 Ml Bag IV 02/02/24 16:55 999 mls/hr .Q1H1M ONE Administration Ketorolac Tromethamine 15 mg 02/02/24 15:55 02/02/24 16:12 Ketorolac 30mg/Ml Vial IV 02/02/24 15:56 15 mg ONCE ONE Administration Ondansetron HCl 4 mg 02/02/24 15:55 02/02/24 16:12 Ondansetron 4mg/2ml Vial IV 02/02/24 15:56 4 mg ONCE ONE Administration ORDERS Category Date Time Status Complete Blood Count Auto Diff Stat Lab 02/02/24 15:59 Completed Comprehensive Metabolic Panel Stat Lab 02/02/24 15:59 Completed Lipase Stat Lab 02/02/24 15:59 Completed Rapid PCR Covid and Flu A/B Stat Lab 02/02/24 16:05 Completed UA [Urinalysis and Microscopic] Stat Lab 02/02/24 15:57 Ordered Medical Decision Narrative: In summary, this patient is a 63-year-old female presenting to the Emergency Department for evaluation of nausea, vomiting, and diarrhea. Differential diagnoses considered include but are not limited to viral gastroenteritis, bacterial gastroenteritis, colitis, pancreatitis, cholecystitis, dehydration. Ruling out the most morbid conditions drove assessment. On exam, the patient is well-appearing with reassuring vital signs. Abdominal exam is benign with no focal tenderness. Workup included CBC, CMP, lipase, and viral swab. 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 Labs demonstrated mild elevation in her creatinine, for which a bolus of IV fluids was administered. She was also given IV Zofran, Toradol, Tylenol for symptomatic improvement. Afterwards, she was feeling better and was able to tolerate oral intake. Given this, I feel that she is appropriate for discharge home with instructions for supportive management of gastroenteritis. Advised that she stay hydrated and provided her with a prescription for Zofran. Strict return precautions were given as well as instructions for close patient follow- up. The patient was discharged and her questions were answered. Critical Care Critical Care Time Critical Care Time: No
[2024-02-02 17:30] VITALS: BP 159/70; PULSE 63; RESP 17; TEMP 36.5; O2SAT 97
== END 2024-02-02 17:32 | disposition home or self-care (01) ==
PROVIDERS: Emergency Provider Emergency Medicine; PCP Nurse Practitioner Family
DX: K52.9 Noninfective gastroenteritis and colitis, unspecified (principal); R11.2 Nausea with vomiting, unspecified; E11.9 Type 2 diabetes mellitus without complications; E03.9 Hypothyroidism, unspecified; I11.9 Hypertensive heart disease without heart failure; I25.10 Atherosclerotic heart disease of native coronary artery without angina pectoris; K21.9 Gastro-esophageal reflux disease without esophagitis; E78.5 Hyperlipidemia, unspecified; Z79.4 Long term (current) use of insulin; Z79.84 Long term (current) use of oral hypoglycemic drugs; Z79.85 Long-term (current) use of injectable non-insulin antidiabetic drugs; Z95.5 Presence of coronary angioplasty implant and graft
CPT/HCPCS: 80053; 83690; 85025; 87636; 96361; 96374; 96375; 99284; J0131; J2405

== ENCOUNTER 2024-02-06 13:24 | Outpatient (CLI) | payer MEDICARE, MEDICAID, SELFPAY ==
--- NOTE | 2024-02-06 13:25 | CT_ITS ---
FINAL REPORT TECHNIQUE: Thin section axial CT images with coronal and sagittal reformats were performed of the left foot. This study was performed with techniques to keep radiation doses as low as reasonably achievable (ALARA). Individualized dose reduction techniques using automated exposure control or adjustment of mA and/or kV according to the patient''s size were employed. CLINICAL HISTORY: Evaluate for Non-Union f/u COMPARISON: None FINDINGS: There is severe osteopenia, probably from disuse. Arthrodesis with bony fusion of the posterior subtalar and talonavicular joints. There are numerous small bony fragments along the hindfoot. There is no evidence of navicular fracture. There is partial bony fusion of the calcaneocuboid joint. IMPRESSION: Postoperative changes from fusion of multiple hindfoot joints as above. No evidence of fracture. Severe osteopenia. Reviewed, Interpreted and Dictated by Jeanie Neal MD Transcribed by Linda Simmons Authenticated and [facility]
== END 2024-02-06 23:59 | disposition home or self-care (01) ==
LOC: RAD 13:25
PROVIDERS: PCP Nurse Practitioner Family; Visit Provider Podiatrist
DX: M96.0 Pseudarthrosis after fusion or arthrodesis; G89.18 Other acute postprocedural pain; R60.9 Edema, unspecified; Z98.890 Other specified postprocedural states
CPT/HCPCS: 73700

== ENCOUNTER 2024-02-06 18:00 | Outpatient (CLI) | payer MEDICARE, MEDICAID, SELFPAY | END 2024-02-06 23:59 | disposition home or self-care (01) | LOC: LAB.DROPOF 02-07 07:39 | PROVIDERS: PCP Nurse Practitioner Family; Visit Provider Nurse Practitioner Family | DX: R82.998 Other abnormal findings in urine (principal); B95.1 Streptococcus, group B, as the cause of diseases classified elsewhere; B96.89 Other specified bacterial agents as the cause of diseases classified elsewhere; M79.672 Pain in left foot; T81.31XD Disruption of external operation (surgical) wound, not elsewhere classified, subsequent encounter | CPT/HCPCS: 73700; 87086 ==

== ENCOUNTER 2024-03-10 12:50 | Outpatient (CLI) | payer MEDICARE, MEDICAID, SELFPAY ==
--- NOTE | 2024-03-10 12:53 | US_ITS ---
PROCEDURE: US TRANSVAGINAL CLINICAL INDICATION: post menopausal ovarian cyst COMPARISON: US US TRANSVAGINAL from 12/05/2023 FINDINGS: Transvaginal sonographic images of the pelvis were obtained. UTERUS: Surgically absent. The vaginal cuff is intact. LEFT OVARY: 2.7 cmx2.6 cmx1.7cm with a volume of 6.2ml. There is a solid area with vascular flow measuring 1.2 cm x 1.0 cm. No change since her previous exam. There is a tubular area adjacent to the left ovary measuring 2.1 cm by 1.0 cm. This could represent a hydrosalpinx. Similar in appearance to her previous examination. RIGHT OVARY: 3.2x 2.6 cmx1.7 cm with a volume of 7.5ml. There are 2 small follicles in the right ovary. 1. Follicle measures 1.8 x 0.9 cm x .4 cm similar in size to previous exam although looks more collapsed today. 2. Follicle measures 1.1 cm x 1.1 cm x 0.6 cm. Both ovaries are seen and appear normal. Doppler flow to both ovaries are seen. There is no fluid in the cul-de-sac. IMPRESSION: 1. The uterus is surgically absent. The vaginal vault appears intact. 2. Both ovaries are seen and appear normal. 3. The right ovary has 2 small follicles that continue to be present. The largest follicle seems to be collapsing. 4. The left ovary appears normal and has a solid area consistent with an old corpus luteum. There appears to be a 2 centimeter hydrosalpinx adjacent to the left ovary. This is similar in appearance her previous exam. 5. No fluid in the cul-de-sac. Dictated by: Cali Diez MD 03/10/2024 16:52 Cali Diez MD in [place] 03/10/2024 16:52
== END 2024-03-10 23:59 | disposition home or self-care (01) ==
LOC: RAD 12:51
PROVIDERS: PCP Nurse Practitioner Family; Visit Provider Obstetrics & Gynecology
DX: N83.209 Unspecified ovarian cyst, unspecified side (principal)
CPT/HCPCS: 76830

== ENCOUNTER 2024-03-28 16:00 | Outpatient (RCR) | payer MEDICARE, MEDICAID, SELFPAY ==
--- NOTE | 2024-02-25 14:24 | HMH.PTOPEV ---
PT Outpatient Evaluation Rehab PT Outpatient Evaluation Start: 02/25/24 12:55 Freq: Status: Active Protocol: Document 02/25/24 12:56 CLYDE (Rec: 02/25/24 14:24 CLYDE [id number]) E-signed By Connie Paez, PT Outpatient Therapy Subjective History Subjective History Pt is a 63 y/o female who reports to PT s/p L flatfoot reconstruction and triple arthodesis performed on . Pt reports complications following surgery including infections and 5 wounds. Pt states the wounds have all finally closed. Pt had a recent foot CT on 02/06/24 with impression of Postoperative changes from fusion of multiple hindfoot joints as above. No evidence of fracture. Severe osteopenia. 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 Pt reports she received a bone stimulator on 01/21/24 and has been using it without issues. Pt states she was NWB until 02/05/24 when she was transitioned to PPWB 30-50% and then 50-75% on . Pt reports she has been ambulating with a RW without issues, denies falls. Pt reports generalized tenderness of the foot/ankle and noted paresthesia of the toes. Pt reports difficulty moving her ankle and toes since surgery. Pt reports increased swelling of the lateral>medial foot/ ankle and heel that is worse throughout the day. Pt reports pain is worse with increased swelling as well. Pt reports she is only able to stand/walk for 10 minutes or less then has to rest due to pain. Pt reports she returns to Dr. Soria on 03/04/24 for her next follow-up appointment. Medical History: Osteopenia, SATYA, CAD, Anxiety, Dysphagia, Diabetes with neuropathy, GERD , Hyperlipidemia, Hypothyroidism, Fibromyalgia, Asthma, Hypertension Observation: incisions well healing without SOI Edema: L ankle figure 8: 53 cm , malleoli circumference 28 cm Calf girth: L 29cm R 32 cm ( measured 5 cm distal to tibial tubercle) New diagnosis of cancer in past 12 No: Hx of thyroid cancer s/p months? radiation & thyroidectomy Chief Complaint Pain,Swelling Symptom Type Ache,Sharp,Dull,Stabbing, Burning,Numbness,Tingling Symptoms Relieved By Rest/Positioning,Ice,Elevation Symptoms Aggravated By Standing,Physical Activity, Walking Current Functional Limitations Sleeping,Standing,Recreation Activity,Walking,Stairs, Balance Symptom Description Constant but Variable Level of pain today (0-10) 8 Pain scale - at its best (0-10) 4 Pain scale - at its worst (0-10) 10 Ankle/Foot Eval Palpation Tenderness left Ankle/Foot Palpation Findings Tenderness Ankle/Foot Palpation Overall Comment 3/4 TTP- global tenderness to entire L foot/ankle lateral> medial ROM Ankle/Foot Dorsiflexion w/Knee Flexed 3 Active Range of Motion (degrees) Ankle/Foot Dorsiflexion W/Knee Flexed 8 Passive Range Motion (degrees) Ankle/Foot Plantar Flexion Active Range 6 of Motion (degrees) Ankle/Foot Plantar Flexion Passive Range 12 of Motion (degrees) Ankle/Foot Eversion Active Range of 3 Motion (degrees) Ankle/Foot Eversion Passive Range of 6 Motion (degrees) Ankle/Foot Inversion Active Range of 5 Motion (degrees) Ankle/Foot Inversion Passive Range of 9 Motion (degrees) MMT Ankle Dorsiflexion Strength Grade 2 Poor Ankle Plantarflexion Strength Grade 2 Poor Foot Eversion Strength Grade 2 Poor Foot Inversion Strength Grade 2 Poor Lower Extremity Functional Index Activities Today, do you or would you have any difficulty at all with: a.Any of your usual work, housework or Extreme difficulty or unable school activities to perform activity b. Your usual hobbies, recreational or Quite a bit of difficulty sporting activities c. Getting into or out of the bath A little bit of difficulty d. Walking between rooms Quite a bit of difficulty e. Putting on your shoes or socks No difficulty f. Squatting Extreme difficulty or unable to perform activity g. Lifting an object, like a bag of Quite a bit of difficulty groceries from the floor h. Performing light activities around Moderate difficulty your home i. Performing heavy activities around Quite a bit of difficulty your home j. Getting into or out of a car A little bit of difficulty k. Walking 2 blocks Extreme difficulty or unable to perform activity l. Walking a mile Extreme difficulty or unable to perform activity m. Going up or down 10 stairs (about 1 Quite a bit of difficulty flight of stairs) n. Standing for 1 hour Extreme difficulty or unable to perform activity o. Sitting for 1 hour No difficulty p. Running on even ground Extreme difficulty or unable to perform activity q. Running on uneven ground Extreme difficulty or unable to perform activity r. Making sharp turns while running fast Extreme difficulty or unable to perform activity s. Hopping Extreme difficulty or unable to perform activity t. Rolling over in bed Moderate difficulty LEFI Score Lower Extremity Functional Index Score 23 Outpatient Therapy Assessment Impairments Problems/Impairmments Palpation Tenderness,Impaired Range of Motion,Impaired Strength,Impaired Gait Pattern ,Impaired Walking,Impaired Standing,Impaired Household Care,Impaired Stair Climbing, Impaired Incline Stepping, Impaired Stepping on Uneven Surface,Impaired Recreational Activities,Impaired Balance, Increased Edema,Wound Care Needs,Subjective C/O Pain, Impaired Self Care/Self Management Prognosis Rehab Potential Good Clinical Impression Consistent with Diagnosis Yes Short Term Goals Number of Weeks 3 Increase Range of Motion Yes Improve LEFI Score Yes: Improve to at least 30/80 to improve overall QOL Decrease Subjective C/O Pain Yes: Improve pain at worst to 8/10 to improve overall QOL Improve Self Care/Self Management Yes Patient to be Ind w/ HEP Yes 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 Number of Weeks 6 Increase Range of Motion Yes: L ankle AROM WFL Increase Strength Yes: L ankle MMT at least 4/5 to assist with function/gait Improve Gait Pattern without Assistive Yes: demonstrate FWB proper Device gait mechanics with LRD to dec fall risk Improve Ability to Climb Stairs Yes: 1 flight with HR to assist with community navigation Improve LEFI Score Yes: Improve to at least 40/80 to improve overall QOL Decrease Edema Yes Decrease Subjective C/O Pain Yes: Improve pain at worst to 6/10 to improve overall QOL Patient to be Ind w/ Advanced HEP Yes Outpatient Therapy Plan of Care Treatment Plan May Include Therapeutic Exercise Including Home Yes Exercise Program Manual Therapy Techniques Yes Neuromuscular Re-education Yes Therapeutic Activities to Return to Yes Previous Functional/Work Level Gait Training Yes ADL/Self Care Education Yes Mechanical Traction Yes Dry Needling Yes Thermal Modalities Yes Electrical Stimulation Yes Ultrasound/Phonophoresis Yes Iontophoresis Yes Orthotics/Bracing/Splinting Yes Vasopneumatic Compression Pump Yes Massage Yes Manual Lymphatic Drainage Yes Wound Care Yes Eval/Re-Eval Yes Frequency Times per week 2-3 Duration Number of Weeks 6 Addendums This patient is a candidate for social No or vocational rehab? Patient/Guardian verbally acknowledges Yes understanding of treatment program and consents to further treatment? Patient/Guardian verbally acknowledges Yes understanding of diagnosis, prognosis and goals for treatment? Eval Complexity PT Charges 46026 - Moderate Complexity Shoulder/Elbow Eval Shoulder Objective Measurements Elbow Objective Measurements PHYSICIAN CERTIFICATION: I certify the specified therapy services for Angeles Ibarra Machado are required, authorized, and reviewed every 30 days.
--- NOTE | 2024-03-25 16:59 | [facility].RHREAS ---
Rehab Reassessment Rehab OP Re-assessment Start: 02/25/24 12:55 Freq: Status: Active Protocol: Document 03/25/24 16:14 SANDRAMIKE (Rec: 03/25/24 16:59 CLYDE [id number]) E-signed By Connie Paez PT Lower Extremity Functional Index Activities Today, do you or would you have any difficulty at all with: a.Any of your usual work, housework or Quite a bit of difficulty school activities b. Your usual hobbies, recreational or Moderate difficulty sporting activities c. Getting into or out of the bath Moderate difficulty d. Walking between rooms Moderate difficulty e. Putting on your shoes or socks Moderate difficulty f. Squatting Moderate difficulty g. Lifting an object, like a bag of Moderate difficulty groceries from the floor h. Performing light activities around Moderate difficulty your home i. Performing heavy activities around Moderate difficulty your home j. Getting into or out of a car Moderate difficulty k. Walking 2 blocks Extreme difficulty or unable to perform activity l. Walking a mile Extreme difficulty or unable to perform activity m. Going up or down 10 stairs (about 1 Extreme difficulty or unable flight of stairs) to perform activity n. Standing for 1 hour Moderate difficulty o. Sitting for 1 hour Moderate difficulty p. Running on even ground Extreme difficulty or unable to perform activity q. Running on uneven ground Extreme difficulty or unable to perform activity r. Making sharp turns while running fast Extreme difficulty or unable to perform activity s. Hopping Extreme difficulty or unable to perform activity t. Rolling over in bed Moderate difficulty LEFI Score Lower Extremity Functional Index Score 25 Rehab Re-assessment Subjective Subjective Pt reports she feels 50% improved since starting PT in regards to mobility. Pt reports she continues to have constant numbness of her entire L foot and toes, states intensity of numbness often increases with prolonged wear of her ankle brace. Pt reports otherwise she has tolerated the brace well. Pt reports she is only able to stand/walk for ~5-10 minutes before having to rest due to pain. Pt reports L anterolateral ankle /foot pain as 9/10 at worst and 6/10 at best on VAS. Objective Objective Notes Palpation: 3-4/4 TTP of lateral malleoli, 1st MTP L ankle AROM: 10 DF, 10 PF, 8 Inv, 4 Eversion L ankle MMT: DF 4-/5, PF 2+/5, Inv 2+/5, Eversion 2+/5 Edema: L figure 8 51 cm, malleoli circumference 26 cm Assessment Assessment Notes Pt has attended 5 PT visits consisting of aerobic exercise , ankle mobility, LE stretching/strengthening, balance/proprioception training, gait training, edema management including MLD, modalities and HEP with good tolerance. Pt demonstrated slightly improved ankle AROM, strength and edema since the initial evaluation. Pt continues to report constant pain and numbness of the L anterolateral ankle and limited weightbearing tolerance due to pain. Overall , the pt would continue to benefit from skilled PT to further improve pain/ paresthesia, ankle AROM, strength, balance/ proprioception and functional activity tolerance to improve overall QOL/function. Patient goals met ST/5 Goals Not Met LTG Revised Goals n/a Plan Plan Continue initial POC Frequency of Therapy 2x/week Duration of therapy 4 more weeks Time and Billing Re-Eval Time 12 Re-Eval Billing Units 1 PHYSICIAN CERTIFICATION: I certify the specified therapy services for Angeles Machado are required, authorized, and reviewed every 30 days.
== END 2024-03-28 16:05 | disposition home or self-care (01) ==
LOC: PT 16:00
PROVIDERS: Visit Provider Podiatrist
DX: M25.372 Other instability, left ankle (principal); E11.621 Type 2 diabetes mellitus with foot ulcer; L97.422 Non-pressure chronic ulcer of left heel and midfoot with fat layer exposed; Z98.890 Other specified postprocedural states
CPT/HCPCS: 97010; 97014; 97016; 97110; 97140; 97163; 97164; 97530; 97760; G0283

== ENCOUNTER 2024-04-02 10:30 | Outpatient (CLI) | payer MEDICARE, MEDICAID, SELFPAY ==
--- NOTE | 2024-04-02 10:34 | XR_ITS ---
FINAL REPORT CLINICAL HISTORY: Ankle pain COMPARISON: 10/24/2023 FINDINGS: LEFT ANKLE Three views demonstrate no acute fracture or dislocation. There is evidence of multiple old avulsion fractures involving the medial malleolus. An anchor screw is noted in the lateral malleolus presumed from previous ligamentous repair. There is minimal widening of the medial ankle mortise. The soft tissues are unremarkable. IMPRESSION: Postoperative and posttraumatic changes with no acute process. Reviewed, Interpreted and Dictated by Jeanie Neal MD Transcribed by Linda Simmons Authenticated and . [facility]
--- NOTE | 2024-04-02 10:34 | XR_ITS ---
FINAL REPORT CLINICAL HISTORY: foot pain COMPARISON: 01/22/2024 FINDINGS: LEFT FOOT Three views of the left foot demonstrate extensive postoperative changes in the hindfoot. There is no acute fracture or dislocation. Osteopenia is noted. The soft tissues are unremarkable. IMPRESSION: Stable postoperative changes without acute process. Reviewed, Interpreted and Dictated by Jeanie Neal MD Transcribed by Linda Simmons Authenticated and [facility]
== END 2024-04-02 23:59 | disposition home or self-care (01) ==
PROVIDERS: PCP Nurse Practitioner Family; Visit Provider Podiatrist
DX: M79.672 Pain in left foot; M25.572 Pain in left ankle and joints of left foot
CPT/HCPCS: 73610; 73630

== ENCOUNTER 2024-04-15 10:13 | Outpatient (CLI) | payer MEDICARE, MEDICAID, SELFPAY ==
--- NOTE | 2024-04-15 10:14 | US_ITS ---
FINAL REPORT CLINICAL HISTORY: right sided neck pain COMPARISON: None FINDINGS: Sonographic images of the thyroid bed were obtained. The patient is post thyroidectomy. There is no evidence of mass at the area of interest. IMPRESSION: No evidence of mass. Reviewed, Interpreted and Dictated by Boy Bonner III, MD Transcribed by Linda Simmons Authenticated and [facility]
== END 2024-04-15 23:59 | disposition home or self-care (01) ==
LOC: RAD 10:14
PROVIDERS: PCP Nurse Practitioner Family; Visit Provider Nurse Practitioner Family
DX: E03.9 Hypothyroidism, unspecified (principal); Z85.850 Personal history of malignant neoplasm of thyroid
CPT/HCPCS: 76536

== ENCOUNTER 2024-04-22 16:43 | Outpatient (CLI) | payer MEDICARE, MEDICAID, SELFPAY ==
[2024-04-22 20:05] LABS: Thyroid Stimulating Hormone 9.89 uIU/mL (0.465-4.68)
[2024-04-24 08:24] LABS: HBsAg Screen Negative (Negative); HCV Ab Non Reactive (Non Reactive); Hep A Ab, IGM Negative (Negative); Hep B Core Ab, IgM Negative (Negative)
[2024-04-24 13:47] LABS: Triiodothyronine (T3) Free 2.5 pg/mL (2.0-4.4)
== END 2024-04-22 23:59 | disposition home or self-care (01) ==
LOC: LAB.DROPOF 16:43
PROVIDERS: PCP Nurse Practitioner Family; Visit Provider Nurse Practitioner Family
DX: K75.9 Inflammatory liver disease, unspecified (principal); E03.9 Hypothyroidism, unspecified
CPT/HCPCS: 80074; 84443; 84481

== ENCOUNTER 2024-04-30 21:40 | Observation (INO) | payer MEDICARE, MEDICAID, SELFPAY ==
[2024-04-30 21:42] VITALS: BP 121/61; PULSE 66; RESP 20; TEMP 36.9; O2SAT 100; BMI 31.7
--- NOTE | 2024-04-30 22:00 | CT_ITS ---
PROCEDURE INFORMATION: Exam: CT Head Without Contrast Exam date and time: 04/30/2024 11:06 PM Age: 64 years old Clinical indication: Other: Weakness; Additional info: R side subjective weakness, L side decr sensation TECHNIQUE: Imaging protocol: Computed tomography of the head without contrast. Radiation optimization: All CT scans at this facility use at least one of these dose optimization techniques: automated exposure control; mA and/or kV adjustment per patient size (includes targeted exams where dose is matched to clinical indication); or iterative reconstruction. COMPARISON: CT HEAD/BRAIN WO CON 04/30/2024 11:06 PM FINDINGS: Brain: No evidence for intracranial hemorrhage or extra-axial fluid collections or mass lesions. Intracranial vascular calcifications. Low-density left eckert radiata image 3/41. Low-density left parietal cortex convexity image 3/52. Mild small vessel ischemic change of the periventricular white matter. Cerebral ventricles: No ventriculomegaly. Pituitary gland and sella: Negative Paranasal sinuses: Visualized sinuses are unremarkable. No fluid levels. Mastoid air cells: Visualized mastoid air cells are well aerated. Orbital cavities: Negative. Parotid and submandibular glands: Negative Bones: Unremarkable. No acute fracture. Soft tissues: Unremarkable. Vasculature: Negative. IMPRESSION: 1. No evidence for intracranial hemorrhage or extra-axial fluid collections or mass lesions. 2. Intracranial vascular calcifications. 3. Low-density left eckert radiata image 3/41. Possible subacute white matter infarct. MRI may be helpful to further delineate this finding. 4. Low-density left parietal cortex convexity image 3/52. Possible subacute infarct. MRI recommended to further delineate this finding. 5. Mild small vessel ischemic change of the periventricular white matter.
--- NOTE | 2024-04-30 22:00 | CT_ITS ---
PROCEDURE INFORMATION: Exam: CTA Neck With Contrast Exam date and time: 04/30/2024 11:08 PM Age: 64 years old Clinical indication: Weakness; Additional info: R subjective weak, L decr sensation, speech TECHNIQUE: Imaging protocol: Computed tomographic angiography of the neck with contrast. Exam focused on the cervical segments of the vasculature. 3D rendering (Not supervised by radiologist): MIP and/or 3D reconstructed images were created by the technologist. Radiation optimization: All CT scans at this facility use at least one of these dose optimization techniques: automated exposure control; mA and/or kV adjustment per patient size (includes targeted exams where dose is matched to clinical indication); or iterative reconstruction. Contrast material: ISOVUE; Contrast volume: 100 ml; Contrast route: INTRAVENOUS (IV); COMPARISON: CT ANGIO NECK 11/14/2022 5:00 PM FINDINGS: Right common carotid artery: No stenosis. No dissection or occlusion. Right internal carotid artery: No stenosis of the extracranial segment. No dissection or occlusion. Right external carotid artery: No occlusion or stenosis of the origin. Left common carotid artery: No stenosis. No dissection or occlusion. Left internal carotid artery: Approximately 20% stenosis proximal left internal carotid artery due to calcified and soft plaque image 3/218. Left external carotid artery: No occlusion or stenosis of the origin. Right vertebral artery: No stenosis. No dissection or occlusion. Left vertebral artery: No stenosis. No dissection or occlusion. Soft tissues: Normal. No significant soft tissue swelling. Bones/joints: No acute fracture. Other findings: Calcific plaque bilateral carotid bifurcations without hemodynamically significant stenosis. Patent vertebral arteries. IMPRESSION: 1. Calcific plaque bilateral carotid bifurcations without hemodynamically significant stenosis. 2. Approximately 20% stenosis proximal left internal carotid artery due to calcified and soft plaque image 3/218. 3. Patent vertebral arteries. REFERENCES: NASCET CRITERIA. The degree of stenosis in the cervical segment of the internal carotid artery is based on NASCET criteria. Normal is no stenosis. Mild is less than 50% stenosis. Moderate is 50-69% stenosis. Severe is 70% to 99% stenosis. Total occlusion is no detectable patent lumen.
--- NOTE | 2024-04-30 22:00 | CT_ITS ---
PROCEDURE INFORMATION: Exam: CTA Head With Contrast, Arteriography Exam date and time: 04/30/2024 11:08 PM Age: 64 years old Clinical indication: Weakness; Additional info: R subjective weak, L decr sensation, speech TECHNIQUE: Imaging protocol: Computed tomographic angiography of the head with contrast. Exam focused on the arteries. 3D rendering (Not supervised by radiologist): MIP and/or 3D reconstructed images were created by the technologist. Radiation optimization: All CT scans at this facility use at least one of these dose optimization techniques: automated exposure control; mA and/or kV adjustment per patient size (includes targeted exams where dose is matched to clinical indication); or iterative reconstruction. Contrast material: ISOVUE; Contrast volume: 100 ml; Contrast route: INTRAVENOUS (IV); COMPARISON: CT ANGIO HEAD 11/14/2022 5:00 PM FINDINGS: ANTERIOR CIRCULATION: Right internal carotid artery: Intracranial segment is patent with no significant stenosis. No aneurysm. Right middle cerebral artery: No occlusion or significant stenosis. No aneurysm. Right anterior cerebral artery: No occlusion or significant stenosis. No aneurysm. Left internal carotid artery: Intracranial segment is patent with no significant stenosis. No aneurysm. Left middle cerebral artery: No occlusion or significant stenosis. No aneurysm. Left anterior cerebral artery: No occlusion or significant stenosis. No aneurysm. POSTERIOR CIRCULATION: Right vertebral artery: No occlusion or significant stenosis. No aneurysm. Left vertebral artery: No occlusion or significant stenosis. No aneurysm. Basilar artery: No occlusion or significant stenosis. No aneurysm. Right posterior cerebral artery: No occlusion or significant stenosis. No aneurysm. Left posterior cerebral artery: No occlusion or significant stenosis. No aneurysm. Brain: No definite mass, mass effect, or midline shift. Cerebral ventricles: No ventriculomegaly. Bones/joints: Unremarkable. No acute fracture. Soft tissues: Unremarkable. IMPRESSION: No large vessel stenosis or occlusion.
[2024-04-30 22:01] VITALS: BP 122/60; PULSE 65; O2SAT 99
--- NOTE | 2024-04-30 22:04 | ED_ITS ---
Discharge Plan Disposition Patient Disposition: Admitted Clinical Impressions Clinical Impression: Right sided weakness Cerebral infarction Qualifiers: Laterality of affected vessel: left Discharge ED Provider: Anuradha Mazariegos General Adult HPI <Anuradha Mazariegos MD - Last Filed: 04/30/24 23:32> General Chief complaint: Dizziness Stated complaint: dizzy,weakness Time Seen by Provider: 04/30/24 21:47 History of Present Illness HPI narrative: 64-year-old female presents for concerns of generalized weakness, intermittent lightheadedness, sensation of right-sided weakness as well as fogginess and difficulty with word forming. Patient's son was just found after being missing for multiple days so she has been under significant stress. She also has multiple chronic medical conditions including CAD, diabetes with neuropathy, thyroidectomy, hypertension. Patient reports she has been having intermittent chest pain over the last few days. She states her symptoms onset approximately 3 days ago and have gotten somewhat worse. She denies dysuria or hematuria, no abdominal pain, nausea, vomiting, or shortness of breath. Patient does state her left side does not have as good a sensation as it normally does. None of her symptoms were new onset today. She states since they were bringing her son to the ER she thought she would be checked out as well. Related Data Home Medications ?Medication ?Instructions ?Recorded ?Confirmed aspirin 81 mg tablet,delayed 81 mg PO DAILY 12/01/20 04/22/24 release epinephrine 0.3 mg/0.3 mL 0.3 mg IM Q5-15M PRN Allergy 12/01/20 04/22/24 injection, auto-injector (EpiPen) Symptoms albuterol sulfate 90 mcg/actuation 2 inh inhalation Q4-6H PRN 07/02/23 04/22/24 aerosol inhaler (ProAir HFA) Shortness Of Breath ergocalciferol (vitamin D2) 1,250 50,000 unit PO .TWICE A WEEK 07/02/23 04/22/24 mcg (50,000 unit) capsule evolocumab 140 mg/mL subcutaneous 140 mg SQ QOW 07/02/23 04/22/24 pen injector (Repatha Tao) ketotifen fumarate 0.025 % (0.035 1 drp ophthalmic (eye) BID 07/02/23 04/22/24 %) eye drops (Zaditor) tizanidine 4 mg tablet 4 mg PO TID PRN Muscle Pain 10/24/23 04/22/24 dulaglutide 3 mg/0.5 mL 3 mg SQ WEEKLY 04/22/24 04/22/24 subcutaneous pen injector (Trulicity) hydroxyzine HCl 25 mg tablet 25 - 50 mg PO TID PRN anxiety 04/22/24 meloxicam 15 mg tablet 15 mg PO DAILY 04/22/24 04/22/24 montelukast 10 mg tablet 10 mg PO DAILY 04/22/24 04/22/24 venlafaxine 150 mg 150 mg PO DAILY 04/22/24 04/22/24 capsule,extended release 24 hr Previous Rx's ?Medication ?Instructions ?Recorded glimepiride 4 mg tablet 4 mg PO DAILY 90 days #90 tabs 12/31/23 isosorbide mononitrate 30 mg 30 mg PO DAILY 90 days #90 tabs 12/31/23 tablet,extended release 24 hr levocetirizine 5 mg tablet 5 mg PO AM 90 days #90 tabs 12/31/23 losartan 50 mg tablet 50 mg PO BID 90 days #180 tabs 12/31/23 metoprolol succinate 50 mg 50 mg PO PM 90 days #90 tabs 12/31/23 tablet,extended release 24 hr pantoprazole 40 mg tablet,delayed 40 mg PO DAILY 90 days #90 tabs 12/31/23 release ondansetron 4 mg disintegrating 4 mg PO Q8H PRN nausea and 02/02/24 tablet vomiting 4 days #12 tabs ondansetron HCl 4 mg/5 mL oral 4 mg (5 mL) PO Q8H PRN nausea and 02/06/24 solution vomiting #50 mL estradiol 0.01% (0.1 mg/gram) See Rx Instructions vaginal 03/17/24 vaginal cream .COMPLEX #42.5 grams oxybutynin chloride 10 mg 10 mg PO DAILY #90 tabs 03/17/24 tablet,extended release 24 hr aripiprazole 5 mg tablet (Abilify) 5 mg PO QHS #30 tabs 04/07/24 insulin degludec 100 unit/mL (3 58 unit (0.58 mL) SQ DAILY 90 days 04/22/24 mL) subcutaneous pen (Tresiba #52.2 mL FlexTouch U-100 insulin) levothyroxine 175 mcg tablet 175 mcg PO DAILY 90 days #90 tabs 04/24/24 blood-glucose meter,continuous #1 ea 04/29/24 (Dexcom G6 Transformer Tester) blood-glucose sensor (Dexcom G6 #9 ea 04/29/24 Sensor device) blood-glucose transmitter (Dexcom #1 ea 04/29/24 G6 Transmitter device) Allergies Allergy/AdvReac Type Severity Reaction Status Date / Time pregabalin [From Lyrica] Allergy Mild Verified 04/22/24 15:07 codeine [CODEINE] Allergy Unknown I-ITCHING Verified 04/22/24 15:07 metformin [METFORMIN] Allergy Unknown HIVES, SOA Verified 04/22/24 15:07 pioglitazone [From ACTOS] Allergy Unknown SOA, HIVES Verified 04/22/24 15:07 gabapentin Allergy Verified 04/22/24 15:07 metformin Allergy Mild Gastrointestinal Uncoded 04/22/24 15:07 Upset [facility] <Anuradha Mazariegos MD - Last Filed: 04/30/24 23:32> [facility] Disclaimer: The information contained in this section may have been updated after the patient was seen, as this information can be updated by other users. Medical History Abdominal pain Acquired pes planus of both feet Anxiety Neurocognitive evaluation suggestive of significant anxiety mood disorder Arthritis Asthma Atypical chest pain CAD (coronary artery disease) Chest pain Cholecystectomy planned Class 1 obesity Diabetes mellitus Diabetes mellitus with diabetic neuropathy Dysphagia Elevated liver enzymes Enlarged lymph nodes Fibromyalgia Generalized anxiety disorder GERD (gastroesophageal reflux disease) History of thyroid cancer Status post radiation and thyroidectomy Hydrosalpinx Hyperlipidemia Hypertension Hypothalamic hypothyroidism Hypothyroidism (acquired) Low TSH level Lymphadenopathy Major depressive disorder Migraine Nausea Nodule of soft tissue Obesity, Class II, BMI 35-39.9 SATYA (obstructive sleep apnea) Mild but symptomatic and multiple risk factor for cardiovascular events, mild memory impairment. Trial with AutoPap was discussed and commended, order sent to [facility]. Osteoarthritis of left foot Posterior tibial tendinitis of left lower extremity Posterior tibial tendon dysfunction (PTTD) of left lower extremity Right lower lobe pneumonia Rupture of tibialis posterior tendon Screening for colon cancer Sleep apnea Synovitis of left ankle Thyroid cancer White matter disease Surgical History H/O gastric sleeve History of colonoscopy History of esophagogastroduodenoscopy (EGD) History of foot surgery History of heart artery stent History of partial hysterectomy Hx of heart artery stent S/P foot surgery, right Status post left foot surgery Family History Mother Diabetes Cancer Father Cancer Hypertension Dementia Grandmother Alzheimer's dementia, late onset Social History Smoking Status: Never smoker second hand exposure: No alcohol intake: never counseling given: No substance use type: denies use and marijuana counseling given: No (she is trying some of the gummies; cause she can't sleep) current occupational status: disabled Travel in the last 8 weeks: None adopted: No caregiver/support person: No foster care: No household members: family housing: house lives independently: No marital status: number of children: 3 number of grandchildren: 2 education level: college service: No 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[employer]; on the [employer] caffeine: Yes physical activity: none special ameya needs: No working smoke detector in home: Yes fire extinguisher in home: Yes carbon monox detector in home: No firearms in home: No do you feel safe at home: Yes victim of physical abuse: No victim of emotional abuse: No victim of sexual abuse: No would you like helpful sources: No <Anuradha Mazariegos MD - Last Filed: 04/30/24 23:32> ROS Obtained: Yes All systems reviewed & no additional complaints except as documented Constitutional Constitutional: Denies chills, Denies fever(s), Denies headache(s) and Reports weakness (Generalized malaise, subjective weakness of the right side of the body) ENT Ears, Nose, Mouth, and Throat: Reports dizziness (Lightheadedness), Denies headache(s), Denies nasal congestion and Denies sore throat Cardiovascular Cardiovascular: Reports chest pain (Intermittent, nonradiating), Denies dyspnea and Denies leg edema Respiratory Respiratory: Denies cough and Denies dyspnea Gastrointestinal Gastrointestingal: Denies constipation, diarrhea, nausea or vomiting Genitourinary Female Genitourinary: Denies dysuria Musculoskeletal Musculoskeletal: Denies arthralgias, Denies myalgias, Reports numbness (Reported decrease sensation on left side of the body) and Denies tingling Integumentary/Breasts Skin/Breast: Denies change in pigmentation Neurologic Neurologic: Reports abnormal speech, Reports dizziness (Lightheadedness), Denies headache(s), Reports numbness (Reported decrease sensation on left side of the body), Denies tingling and Reports weakness (Generalized malaise, subjective weakness of the right side of the body) Physical Exam <Anuradha Mazariegos MD - Last Filed: 04/30/24 23:32> General General appearance: alert and in no apparent distress Head Head exam: atraumatic and normocephalic Eye Eye exam: Present PERRL and EOMI; Absent nystagmus ENT ENT exam: Present mucous membranes moist Neck Neck exam: Present normal inspection and full ROM Chest Chest inspection: Present symmetric chest wall rise Respiratory Respiratory exam: Present normal lung sounds bilaterally; Absent respiratory distress, wheezes or stridor Cardiovascular Cardiovascular exam: Present regular rate and normal rhythm Abdominal Exam Abdominal exam: Present soft; Absent distention or tenderness Extremities Exam Extremities exam: Present full ROM; Absent tenderness Neurological Exam Neurological exam: Present alert, oriented X3, CN II-XII intact, motor sensory deficit (5 out of 5 strength in all extremities, patient reports slightly decreased sensation on her left face, left arm, left leg, 2 point discrimination is intact) and other (Very slight slurring of words but no significant aphasia) Psychiatric Psychiatric exam: Present normal affect and normal mood Skin Skin exam: Present warm and dry Medical Decision Making <Anuradha Mazariegos MD - Last Filed: 04/30/24 23:32> Kristofer Inquiry Pt receiving controlled substance: No Vital Signs: 04/30/24 21:42 04/30/24 22:01 Temperature 98.4 F Temperature Source Oral Pulse Rate 65 Pulse Rate [Right] 66 Respiratory Rate 20 Blood Pressure 122/60 Blood Pressure [Right Arm] 121/61 Blood Pressure Mean 80 Blood Pressure Mean [Right Arm] 81 Blood Pressure Source [Right Arm] Automatic Cuff Blood Pressure Position [Right Arm] Sitting 02 Sat by Pulse Oximetry 100 99 Oxygen Delivery Method Room Air Room Air Lab Data Lab Results 04/30/24 22:25: Urine Color Yellow, Urine Appearance Clear, Urine pH 6.0, Ur Specific [place] >= 1.030, Urine Protein Negative, Urine Glucose (UA) Negative, Urine Ketones Negative, Urine Blood Negative, Urine Nitrate Negative, Urine Bilirubin Negative, Urine Urobilinogen 0.2, Ur Leukocyte Esterase 1+ A, Urine RBC None, Urine WBC 10-20, Ur Squamous Epith Cells 10-20, Ur Transition Epith Cell 3-5, Urine Bacteria Trace, Hyaline Casts 3-5, Urine Opiates Screen Negative, Urine Methadone Screen Negative, Ur Barbituates Screen Negative, Ur Phencyclidine Scrn Negative, Ur Amphetamines Screen Negative, U Benzodiazepines Scrn Negative, Urine Cocaine Screen Negative, U Marijuana (THC) Screen Positive H 04/30/24 22:30: WBC 8.7, RBC 4.26, Hgb 11.3 L, Hct 34.6 L, MCV 81.3, MCH 26.6 L, MCHC 32.8, RDW 16.8, Plt Count 237, MPV 8.2, Neut % (Auto) 62.9, Lymph % (Auto) 30.3, [place] % (Auto) 4.7, Eos % (Auto) 1.2, Baso % (Auto) 1.0, Neut # (Auto) 5.5, Lymph # (Auto) 2.6, [place] # (Auto) 0.4, Eos # (Auto) 0.1, Baso # (Auto) 0.1, PT 9.7 L, INR 0.85 L, Sodium 140, Potassium 4.1, Chloride 106, Carbon Dioxide 27, Anion Gap 11.1, BUN 24 H, Creatinine 0.90, Estimated Creat Clear 77, Estimated GFR 63, Est GFR ( Amer) 77, Glucose 121 H, Calcium 8.5, Total Bilirubin 0.2, AST 33, ALT 18, Alkaline Phosphatase 123, Troponin I < 0.01, Total Protein 7.5, Albumin 3.9, Globulin 3.6 H, Albumin/Globulin Ratio 1.1, TSH 17.00 H, Free T4 0.90 04/30/24 22:30 04/30/24 22:30 Orders (Tests/Meds): ED MEDICATIONS Generic Name Dose Route Start Last Admin Trade Name Freq PRN Reason Stop Dose Admin Sodium Chloride 10 ml 04/30/24 23:08 04/30/24 23:09 Sodium Chloride 0.9% 10ml Syr (Rad Only) IV 05/30/24 23:07 10 ml NEEDED PRN Administration Maintain IV Site Discontinued Medications Generic Name Dose Route Start Last Admin Trade Name Najma PRN Reason Stop Dose Admin Lactated Ringer's 1,000 mls @ 999 mls/hr 04/30/24 22:00 04/30/24 22:39 Lactated Ringer's 1000 Ml Bag IV 04/30/24 23:00 999 mls/hr .Q1H1M ONE Administration Iopamidol 100 ml 04/30/24 23:08 04/30/24 23:09 Iopamidol-370 (76%);100ml Bottle IV 04/30/24 23:09 100 ml ONCE ONE Administration Sodium Chloride 50 ml 04/30/24 23:08 04/30/24 23:10 0.9 % Sodium Chloride 50 Ml Vial IV 04/30/24 23:09 50 ml ONCE ONE Administration ORDERS Category Date Time Status CT angio head Stat Cat Scan 04/30/24 22:[address] angio neck Stat Cat Scan 04/30/24 22:[address] head/brain wo con Stat Cat Scan 04/30/24 22:00 Completed CBC w/Auto Diff [Complete Blood Count Auto Diff] Stat Lab 04/30/24 22:30 Completed CMP [Comprehensive Metabolic Panel] Stat Lab 04/30/24 22:30 Completed Free T4 (Free Thyroxine) Stat Lab 04/30/24 22:30 Completed PT INR [Prothrombin Time INR] Stat Lab 04/30/24 22:30 Completed TSH [Thyroid Stimulating Hormone] Stat Lab 04/30/24 22:30 Completed Trop I [Troponin I] Stat Lab 04/30/24 22:30 Completed Troponin I Q3H Lab 05/01/24 01:15 Ordered Troponin I Q3H Lab 05/01/24 04:15 Ordered UDS [Drug Screen,Urine] Stat Lab 04/30/24 22:25 Completed Urinalysis and Microscopic Stat Lab 04/30/24 22:25 Completed Urine Culture Stat Micro 04/30/24 22:25 Received HEART Score History (anamnesis): Slightly suspicious ECG: Non-specific disturbance Age: 45-65 years Risk factors: 1-2 risk factors Troponin: </= normal limit HEART Score: 3 Medical Decision Narrative: In summary, this 64-year-old female presents to the emergency department today with multiple complaints including weakness, speech difficulty, fogginess, decreased sensation. On initial evaluation patient is hemodynamically stable, afebrile, GCS 15, very slight slurring of speech on neurologic exam, however exam was otherwise intact, NIH 1, last known normal multiple days ago, no indication for stroke alert, cardiopulmonary exam reassuring. Differential diagnosis includes but is not limited to stroke, TIA, electrolyte abnormality, dehydration, anxiety, substance use (patient admits to using delta 8), thyroid abnormality, ACS. Comorbidities include history of CAD which increases risk of heart attack and stroke, diabetes increasing risk of multiple other pathologies, history of thyroid cancer and thyroidectomy increasing risk of thyroid abnormality. Based on these concerns, I ordered serum labs, CT imaging, cardiac workup. ECG personally interpreted demonstrates normal sinus rhythm, rate 62, normal axis, normal DE and QTc, no STEMI. Patient received IV fluids for treatment. Labs personally reviewed demonstrate no leukocytosis, mild anemia, nonactionable, CMP with prerenal azotemia, patient is already receiving IV fluids, no other actionable abnormalities, initial troponin undetectably low at less than 0.01, patient's story is not significantly concerning for ACS and she has reassuring EKG as well as multiple days of intermittent chest pain, so I believe this troponin is reassuring. Free T4 normal. UA contaminated with squamous cells, not consistent with infection since her only trace bacteria and negative nitrites as well as patient not having dysuria. CT imaging pending at the time of physician handoff. Patient handed off to Dr. hCo for further management and disposition pending imaging. <Brannon Cho MD - Last Filed: 05/01/24 00:51> Vital Signs: 04/30/24 21:42 04/30/24 22:01 Temperature 98.4 F Temperature Source Oral Pulse Rate 65 Pulse Rate [Right] 66 Respiratory Rate 20 Blood Pressure 122/60 Blood Pressure [Right Arm] 121/61 Blood Pressure Mean 80 Blood Pressure Mean [Right Arm] 81 Blood Pressure Source [Right Arm] Automatic Cuff Blood Pressure Position [Right Arm] Sitting 02 Sat by Pulse Oximetry 100 99 Oxygen Delivery Method Room Air Room Air Lab Data Lab Results 04/30/24 22:25: Urine Color Yellow, Urine Appearance Clear, Urine pH 6.0, Ur Specific [place] >= 1.030, Urine Protein Negative, Urine Glucose (UA) Negative, Urine Ketones Negative, Urine Blood Negative, Urine Nitrate Negative, Urine Bilirubin Negative, Urine Urobilinogen 0.2, Ur Leukocyte Esterase 1+ A, Urine RBC None, Urine WBC 10-20, Ur Squamous Epith Cells 10-20, Ur Transition Epith Cell 3-5, Urine Bacteria Trace, Hyaline Casts 3-5, Urine Opiates Screen Negative, Urine Methadone Screen Negative, Ur Barbituates Screen Negative, Ur Phencyclidine Scrn Negative, Ur Amphetamines Screen Negative, U Benzodiazepines Scrn Negative, Urine Cocaine Screen Negative, U Marijuana (THC) Screen Positive H 04/30/24 22:30: WBC 8.7, RBC 4.26, Hgb 11.3 L, Hct 34.6 L, MCV 81.3, MCH 26.6 L, MCHC 32.8, RDW 16.8, Plt Count 237, MPV 8.2, Neut % (Auto) 62.9, Lymph % (Auto) 30.3, [place] % (Auto) 4.7, Eos % (Auto) 1.2, Baso % (Auto) 1.0, Neut # (Auto) 5.5, Lymph # (Auto) 2.6, [place] # (Auto) 0.4, Eos # (Auto) 0.1, Baso # (Auto) 0.1, PT 9.7 L, INR 0.85 L, Sodium 140, Potassium 4.1, Chloride 106, Carbon Dioxide 27, Anion Gap 11.1, BUN 24 H, Creatinine 0.90, Estimated Creat Clear 77, Estimated GFR 63, Est GFR ( Amer) 77, Glucose 121 H, Calcium 8.5, Total Bilirubin 0.2, AST 33, ALT 18, Alkaline Phosphatase 123, Troponin I < 0.01, Total Protein 7.5, Albumin 3.9, Globulin 3.6 H, Albumin/Globulin Ratio 1.1, TSH 17.00 H, Free T4 0.90 Orders (Tests/Meds): ED MEDICATIONS Generic Name Dose Route Start Last Admin Trade Name Freq PRN Reason Stop Dose Admin Sodium Chloride 10 ml 04/30/24 23:08 04/30/24 23:09 Sodium Chloride 0.9% 10ml Syr (Rad Only) IV 05/30/24 23:07 10 ml NEEDED PRN Administration Maintain IV Site Discontinued Medications Generic Name Dose Route Start Last Admin Trade Name Freq PRN Reason Stop Dose Admin Lactated Ringer's 1,000 mls @ 999 mls/hr 04/30/24 22:00 04/30/24 22:39 Lactated Ringer's 1000 Ml Bag IV 04/30/24 23:00 999 mls/hr .Q1H1M ONE Administration Iopamidol 100 ml 04/30/24 23:08 04/30/24 23:09 Iopamidol-370 (76%);100ml Bottle IV 04/30/24 23:09 100 ml ONCE ONE Administration Sodium Chloride 50 ml 04/30/24 23:08 04/30/24 23:10 0.9 % Sodium Chloride 50 Ml Vial IV 04/30/24 23:09 50 ml ONCE ONE Administration ORDERS Category Date Time Status CT angio head Stat Cat Scan 04/30/24 22:[address] angio neck Stat Cat Scan 04/30/24 22:[address] head/brain wo con Stat Cat Scan 04/30/24 22:00 Completed CBC w/Auto Diff [Complete Blood Count Auto Diff] Stat Lab 04/30/24 22:30 Completed CMP [Comprehensive Metabolic Panel] Stat Lab 04/30/24 22:30 Completed Free T4 (Free Thyroxine) Stat Lab 04/30/24 22:30 Completed PT INR [Prothrombin Time INR] Stat Lab 04/30/24 22:30 Completed TSH [Thyroid Stimulating Hormone] Stat Lab 04/30/24 22:30 Completed Trop I [Troponin I] Stat Lab 04/30/24 22:30 Completed Troponin I Q3H Lab 05/01/24 01:15 Ordered Troponin I Q3H Lab 05/01/24 04:15 Ordered UDS [Drug Screen,Urine] Stat Lab 04/30/24 22:25 Completed Urinalysis and Microscopic Stat Lab 04/30/24 22:25 Completed Urine Culture Stat Micro 04/30/24 22:25 Received HEART Score HEART Score: 3 Medical Decision Narrative: In summary, this 64-year-old female presents to the emergency department today with multiple complaints including weakness, speech difficulty, fogginess, decreased sensation. On initial evaluation patient is hemodynamically stable, afebrile, GCS 15, very slight slurring of speech on neurologic exam, however exam was otherwise intact, NIH 1, last known normal multiple days ago, no indication for stroke alert, cardiopulmonary exam reassuring. Differential diagnosis includes but is not limited to stroke, TIA, electrolyte abnormality, dehydration, anxiety, substance use (patient admits to using delta 8), thyroid abnormality, ACS. Comorbidities include history of CAD which increases risk of heart attack and stroke, diabetes increasing risk of multiple other pathologies, history of thyroid cancer and thyroidectomy increasing risk of thyroid abnormality. Based on these concerns, I ordered serum labs, CT imaging, cardiac workup. ECG personally interpreted demonstrates normal sinus rhythm, rate 62, normal axis, normal DE and QTc, no STEMI. Patient received IV fluids for treatment. Labs personally reviewed demonstrate no leukocytosis, mild anemia, nonactionable, CMP with prerenal azotemia, patient is already receiving IV fluids, no other actionable abnormalities, initial troponin undetectably low at less than 0.01, patient's story is not significantly concerning for ACS and she has reassuring EKG as well as multiple days of intermittent chest pain, so I believe this troponin is reassuring. Free T4 normal. UA contaminated with squamous cells, not consistent with infection since her only trace bacteria and negative nitrites as well as patient not having dysuria. CT imaging pending at the time of physician handoff. Patient handed off to Dr. Cho for further management and disposition pending imaging. Marquis MONREAL: I assumed care of the patient at the time of handoff from the prior provider. On reassessment patient huy hemodynamically stable. CT imaging interpreted by me and shows concern for subacute infarct in the left eckert radiata and left parietal cortex. These could certainly be reducing patient's right-sided symptoms and speech symptoms. Given last known normal, no indication for tPA. No evidence of acute thrombosis or hemodynamically significant stenosis on CTA. Given this, patient to be admitted to the hospitalist service for MRI and further assessment. Critical Care <Anuradha Mazariegos MD - Last Filed: 04/30/24 23:32> Critical Care Time Critical Care Time: No
--- NOTE | 2024-04-30 22:13 | ECG_ITS ---
APPROVED REPORT Exam: Resting ECG HR:62 bpm ECG Measurements Heart Rate 62 AXES DC 136 P 60 QRSd 80 QRS 30 QT 428 T 41 QTc 433 Conclusion SINUS RHYTHM LOW QRS VOLTAGE IN PRECORDIAL LEADS [QRS DEFLECTION < 1.0 mV IN CHEST LEADS] BORDERLINE ECG Electronically signed by : MARIA DEL CARMEN CHAVEZ, 04/30/2024 23:53:26
[2024-04-30 22:39] LABS: Microscopic, Urine URINE MICROSCOPIC (MICROSCOPIC)
[2024-04-30] MEDS: LACTATED RINGERS 1000ML 1,000 ML 999 ML IV (22:39)
[2024-04-30 22:41] LABS: Appearance,Urine CLEAR (Clear); Bilirubin,Urine Negative (Negative); Blood, Urine Negative (Negative); Color,Urine YELLOW (Yellow); Glucose,Urine (UA) Negative (Negative); Ketones,Urine Negative (Negative); Leukocyte Esterase,Urine 1+ (Negative); Nitrate,Urine Negative (Negative); Protein,Urine Negative (Negative); Specific Gravity, Urine >= 1.030 (1.005-1.030); Urobilinogen,Urine 0.2 EU/dl (0.2)
[2024-04-30 22:47] LABS: Basophils # 0.1 K/mm3 (0-0.2); Eosinophils # 0.1 K/mm3 (0.0-0.4); Eosinophils % 1.2 % (0.1-12.0); Hematocrit 34.6 % (37.0-47.0); Hemoglobin 11.3 g/dL (12.2-16.2); Lymphocytes # 2.6 K/mm3 (0.7-4.5); Lymphocytes % 30.3 % (10-50); Mean Corpuscular HGB Conc 32.8 g/dL (31.8-35.4); Mean Corpuscular Hemoglobin 26.6 pg (27.0-31.2); Mean Corpuscular Volume 81.3 fl (81-99); Mean Platelet Volume 8.2 fl (7.4-10.4); Monocytes # 0.4 K/mm3 (0.1-1.0); Monocytes % 4.7 % (1.7-9.3); Neutrophils # 5.5 K/mm3 (1.8-7.8); Neutrophils % 62.9 % (37.0-80.0); Platelet Count 237 K/mm3 (142-424); Red Blood Count 4.26 M/mm3 (4.20-5.40); Red Cell Distribution Width 16.8 % (11.5-17.5); White Blood Count 8.7 K/mm3 (4.8-10.8)
[2024-04-30 22:52] LABS: Chloride 106 mmol/L (98-107); Potassium 4.1 mmoL/L (3.5-5.1); Sodium 140 mmol/L (136-145)
[2024-04-30 22:54] LABS: Blood Urea Nitrogen 24 mg/dl (7-17); Creatinine Clearance Estimated 77 mL/min (50-200); Estimated Glomerular Filt Rate 63 ml/min (>60); GFR (African American) 77 ML/MIN (>60)
[2024-04-30 22:55] LABS: Alanine Aminotransferase 18 U/L (12-78); Albumin Level 3.9 g/dl (3.5-5.0); Albumin/Globulin Ratio 1.1 (1.1-1.8); Alkaline Phosphatase 123 U/L (38-126); Anion Gap 11.1 mEq/L (5-15); Aspartate Amino Transferase 33 U/L (14-36); Bilirubin,Total 0.2 mg/dl (0.2-1.3); Calcium 8.5 mg/dl (8.4-10.2); Carbon Dioxide 27 mmol/L (22.0-30.0); Globulin 3.6 g/dL (1.3-3.2); Glucose 121 mg/dl (74-100); INR 0.85 (0.9-1.1); Prothrombin Time 9.7 seconds (10.1-12.5); Total Protein,Serum 7.5 g/dl (6.3-8.2)
[2024-04-30 23:01] LABS: Bacteria,Urine Trace /lpf; Barbiturates Screen,Urine Negative ng/ml (<200); Benzodiazepines Screen,Urine Negative ng/ml (<200)
[2024-04-30 23:02] LABS: Amphetamine/Metha Screen,Urine Negative ng/ml (<1000)
[2024-04-30 23:03] LABS: Cannabinoid Screen,Urine Positive ng/ml (<50); Methadone Screen,Urine Negative ng/ml (<300)
[2024-04-30 23:04] LABS: Cocaine Screen,Urine Negative ng/ml (<300)
[2024-04-30 23:05] LABS: Opiate Screen,Urine Negative ng/ml (<300); Phencyclidine Screen,Urine Negative ng/ml (<25)
[2024-04-30] MEDS: IOPAMIDOL-370 (76%);100ML BOTTLE 100 ML IV (23:09)
[2024-04-30] MEDS: SODIUM CHLORIDE 0.9% 10ML SYR (RAD ONLY) 10 ML IV (23:09)
[2024-04-30] MEDS: 0.9 % SODIUM CHLORIDE 50 ML VIAL IV (23:10)
[2024-04-30 23:27] LABS: Troponin I < 0.01 ng/ml (0.00-0.034)
[2024-04-30 23:30] VITALS: BP 119/59; PULSE 65; RESP 20; TEMP 36.6; O2SAT 98
[2024-05-01] VITALS (7 sets, daily range): BP systolic 127–148; BP diastolic 57–86; PULSE 56–69; RESP 16–20; TEMP 36.3–37; O2SAT 97–100; BMI 32.7
--- NOTE | 2024-05-01 00:42 | PC.NURSE ---
House notified for admission
--- NOTE | 2024-05-01 01:02 | PC.WOUNDNOTE ---
Pt. to be amitted, report called to floor, to Janis JEWELL
[2024-05-01] MEDS: 0.9 % SODIUM CHLORIDE 1000ML 1,000 ML 50 ML IV (01:21)
[2024-05-01 01:36] LABS: Troponin I < 0.01 ng/ml (0.00-0.034)
--- NOTE | 2024-05-01 04:31 | PC.NURSE ---
Pt admitted this shift. Neuro assessment done once arriving to floor. Computer Technologist equal, equal strength in all limbs, facial features equal, no slurred speech noted. Pt requested snack and something to drink, ANJANA Driscoll said this was okay as long as no issues swallowing. Completely A&Ox4. Ambulated to the restroom with standby assist. No complaints of dizziness since arriving. Pt complained of chest pain while doing admission, 07/17 sharp comes and goes, contacted ANJANA per provider note. NSR on tele. Has rested since arriving. Bed alarm on. Call light in reach.
--- NOTE | 2024-05-01 04:52 | EXP.HP ---
History of Present Illness *Admission Date: 05/01/24 *Reason for visit:: Dizzyness *History of present illness: 64-year-old female presents for concerns of generalized weakness, intermittent lightheadedness, sensation of right-sided weakness as well as fogginess and difficulty with word forming. Patient's son was just found after being missing for multiple days so she has been under significant stress. She also has multiple chronic medical conditions including CAD, diabetes with neuropathy, thyroidectomy, hypertension. Patient reports she has been having intermittent chest pain over the last few days. She states her symptoms onset approximately 3 days ago and have gotten somewhat worse. She denies dysuria or hematuria, no abdominal pain, nausea, vomiting, or shortness of breath. Patient does state her left side does not have as good a sensation as it normally does. None of her symptoms were new onset today. She states since they were bringing her son to the ER she thought she would be checked out as well. Admitted for further work up. [facility] Disclaimer: The information contained in this section may have been updated after the patient was seen, as this information can be updated by other users. Medical History Abdominal pain Acquired pes planus of both feet Anxiety Neurocognitive evaluation suggestive of significant anxiety mood disorder Arthritis Asthma Atypical chest pain CAD (coronary artery disease) Chest pain Cholecystectomy planned Class 1 obesity Diabetes mellitus Diabetes mellitus with diabetic neuropathy Dysphagia Elevated liver enzymes Enlarged lymph nodes Fibromyalgia Generalized anxiety disorder GERD (gastroesophageal reflux disease) History of thyroid cancer Status post radiation and thyroidectomy Hydrosalpinx Hyperlipidemia Hypertension Hypothalamic hypothyroidism Hypothyroidism (acquired) Low TSH level Lymphadenopathy Major depressive disorder Migraine Nausea Nodule of soft tissue Obesity, Class II, BMI 35-39.9 SATYA (obstructive sleep apnea) Mild but symptomatic and multiple risk factor for cardiovascular events, mild memory impairment. Trial with AutoPap was discussed and commended, order sent to [facility]. Osteoarthritis of left foot Posterior tibial tendinitis of left lower extremity Posterior tibial tendon dysfunction (PTTD) of left lower extremity Right lower lobe pneumonia Rupture of tibialis posterior tendon Screening for colon cancer Sleep apnea Synovitis of left ankle Thyroid cancer White matter disease Surgical History H/O gastric sleeve History of colonoscopy History of esophagogastroduodenoscopy (EGD) History of foot surgery History of heart artery stent History of partial hysterectomy Hx of heart artery stent S/P foot surgery, right Status post left foot surgery Family History Mother Diabetes Cancer Father Cancer Hypertension Dementia Grandmother Alzheimer's dementia, late onset Social History (Updated 05/01/24 @ 01:38 by Janis Staples RN) Smoking Status: Never smoker second hand exposure: No alcohol intake: never counseling given: No substance use type: denies use and marijuana counseling given: No (she is trying some of the gummies; cause she can't sleep) current occupational status: disabled Travel in the last 8 weeks: None adopted: No caregiver/support person: No foster care: No household members: family housing: house lives independently: No marital status: number of children: 3 number of grandchildren: 2 education level: college service: No 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[employer]; on the [employer] caffeine: Yes physical activity: none special ameya needs: No working smoke detector in home: Yes fire extinguisher in home: Yes carbon monox detector in home: No firearms in home: No do you feel safe at home: Yes victim of physical abuse: No victim of emotional abuse: No victim of sexual abuse: No would you like helpful sources: No Review of Systems Constitutional Constitutional: Denies headache(s) and Reports weakness (Generalized malaise, subjective weakness of the right side of the body) ENT Ears, Nose, Mouth, and Throat: Reports dizziness (Lightheadedness) and Denies headache(s) *Musculoskeletal Musculoskeletal: Reports numbness (Reported decrease sensation on left side of the body) and Denies tingling *Neurologic Neurologic: Reports abnormal speech, Reports dizziness (Lightheadedness), Denies headache(s), Reports numbness (Reported decrease sensation on left side of the body), Denies tingling and Reports weakness (Generalized malaise, subjective weakness of the right side of the body) Meds Home Medications and Allergies Home Medications ?Medication ?Instructions ?Recorded ?Confirmed ?Type aspirin 81 mg tablet,delayed 81 mg PO DAILY 12/01/20 05/01/24 History release ergocalciferol (vitamin D2) 1,250 50,000 unit PO .TWICE A WEEK 07/02/23 05/01/24 History mcg (50,000 unit) capsule glimepiride 4 mg tablet 4 mg PO DAILY 90 days #90 tabs 12/31/23 05/01/24 Rx isosorbide mononitrate 30 mg 30 mg PO DAILY 90 days #90 tabs 12/31/23 05/01/24 Rx tablet,extended release 24 hr losartan 50 mg tablet 50 mg PO BID 90 days #180 tabs 12/31/23 05/01/24 Rx estradiol 0.01% (0.1 mg/gram) See Rx Instructions vaginal 03/17/24 05/01/24 Rx vaginal cream .COMPLEX #42.5 grams oxybutynin chloride 10 mg 10 mg PO DAILY #90 tabs 03/17/24 05/01/24 Rx tablet,extended release 24 hr dulaglutide 3 mg/0.5 mL 3 mg SQ WEEKLY 04/22/24 05/01/24 History subcutaneous pen injector ([employer]) insulin degludec 100 unit/mL (3 58 unit (0.58 mL) SQ DAILY 90 days 04/22/24 05/01/24 Rx mL) subcutaneous pen (Tresiba #52.2 mL FlexTouch U-100 insulin) meloxicam 15 mg tablet 15 mg PO DAILY 04/22/24 05/01/24 History montelukast 10 mg tablet 10 mg PO HS 04/22/24 05/01/24 History levothyroxine 175 mcg tablet 175 mcg PO DAILY 90 days #90 tabs 04/24/24 05/01/24 Rx blood-glucose meter,continuous #1 ea 04/29/24 05/01/24 Rx (Dexcom G6 Bdc Manager) blood-glucose sensor (Dexcom G6 #9 ea 04/29/24 05/01/24 Rx Sensor device) blood-glucose transmitter (Dexcom #1 ea 04/29/24 05/01/24 Rx G6 Transmitter device) aripiprazole 5 mg tablet (Abilify) 5 mg PO HS 05/01/24 05/01/24 History clopidogrel 75 mg tablet (Plavix) 75 mg PO DAILY 21 days #21 tabs 05/01/24 Rx levocetirizine 5 mg tablet 5 mg PO DAILY 05/01/24 05/01/24 History metoprolol succinate 50 mg 50 mg PO HS 05/01/24 05/01/24 History tablet,extended release 24 hr pantoprazole 40 mg tablet,delayed 40 mg PO HS 05/01/24 05/01/24 History release rosuvastatin 40 mg tablet (Crestor) 40 mg PO DAILY #30 tabs 05/01/24 Rx venlafaxine 150 mg 150 mg PO DAILY 05/01/24 05/01/24 History capsule,extended release 24 hr New Prescriptions to Start Prescriptions: clopidogrel [Plavix] Jama Brower rosuvastatin [Crestor] Jama Brower Allergies Allergy/AdvReac Type Severity Reaction Status Date / Time pregabalin [From Lyrica] Allergy Mild Verified 04/22/24 15:07 codeine [CODEINE] Allergy Unknown I-ITCHING Verified 04/22/24 15:07 metformin [METFORMIN] Allergy Unknown HIVES, SOA Verified 04/22/24 15:07 pioglitazone [From ACTOS] Allergy Unknown SOA, HIVES Verified 04/22/24 15:07 gabapentin Allergy Verified 04/22/24 15:07 metformin Allergy Mild Gastrointestinal Uncoded 04/22/24 15:07 Upset Exam Data for Last 24 hours Vital signs and Labs for Last 24 Hours: Temp Pulse Resp BP Pulse Ox O2 Del Method 98.6 F 60 16 129/74 100 Room Air 05/01/24 04:00 05/01/24 04:00 05/01/24 04:00 05/01/24 04:00 05/01/24 04:00 05/01/24 04:00 Laboratory Results - last 24 hr 04/30/24 22:25: Urine Color Yellow, Urine Appearance Clear, Urine pH 6.0, Ur Specific [place] >= 1.030, Urine Protein Negative, Urine Glucose (UA) Negative, Urine Ketones Negative, Urine Blood Negative, Urine Nitrate Negative, Urine Bilirubin Negative, Urine Urobilinogen 0.2, Ur Leukocyte Esterase 1+ A, Urine RBC None, Urine WBC 10-20, Ur Squamous Epith Cells 10-20, Ur Transition Epith Cell 3-5, Urine Bacteria Trace, Hyaline Casts 3-5, Urine Opiates Screen Negative, Urine Methadone Screen Negative, Ur Barbituates Screen Negative, Ur Phencyclidine Scrn Negative, Ur Amphetamines Screen Negative, U Benzodiazepines Scrn Negative, Urine Cocaine Screen Negative, U Marijuana (THC) Screen Positive H 04/30/24 22:30: WBC 8.7, RBC 4.26, Hgb 11.3 L, Hct 34.6 L, MCV 81.3, MCH 26.6 L, MCHC 32.8, RDW 16.8, Plt Count 237, MPV 8.2, Neut % (Auto) 62.9, Lymph % (Auto) 30.3, [place] % (Auto) 4.7, Eos % (Auto) 1.2, Baso % (Auto) 1.0, Neut # (Auto) 5.5, Lymph # (Auto) 2.6, [place] # (Auto) 0.4, Eos # (Auto) 0.1, Baso # (Auto) 0.1, PT 9.7 L, INR 0.85 L, Sodium 140, Potassium 4.1, Chloride 106, Carbon Dioxide 27, Anion Gap 11.1, BUN 24 H, Creatinine 0.90, Estimated Creat Clear 77, Estimated GFR 63, Est GFR ( Amer) 77, Glucose 121 H, Calcium 8.5, Total Bilirubin 0.2, AST 33, ALT 18, Alkaline Phosphatase 123, Troponin I < 0.01, Total Protein 7.5, Albumin 3.9, Globulin 3.6 H, Albumin/Globulin Ratio 1.1, TSH 17.00 H, Free T4 0.90 05/01/24 01:08: Troponin I < 0.01 Temp Pulse Resp BP Pulse Ox O2 Del Method O2 Flow Rate 98.5 F 66 18 129/62 92 L Room Air 4 10/24/23 17:00 10/24/23 17:00 10/24/23 17:00 10/24/23 17:00 10/24/23 17:00 10/24/23 17:00 10/24/23 13:52 Laboratory Results - last 24 hr 10/24/23 07:48: POC Glucose 162 H 10/24/23 13:48: POC Glucose 213 H 10/24/23 17:01: POC Glucose 204 H I & O for Last 24 hours: Intake & Output 04/28/24 04/29/24 04/30/24 05/01/24 23:59 23:59 23:59 23:59 Output Total 0 / 0 Balance 0 / 0 Weight 83.915 kg 86.863 kg Intake & Output 10/21/23 10/22/23 10/23/23 10/24/23 23:59 23:59 23:59 23:59 Intake Total 1000 / 1000 Output Total 425 / 425 Balance 575 / 575 Constitutional Constitutional: no acute distress *Routine HEENT Exam Head: Present normocephalic Eye: Present EOMI and PERRL ENT: Present mucous membranes moist *Routine Neck Exam Neck: Present supple; Absent lymphadenopathy *Routine Respiratory Exam Respiratory: Present CTA bilaterally *Routine Cardiovascular Exam Cardiovascular: Present RRR *Routine Abdominal Exam Abdominal: Present soft and normoactive bowel sounds; Absent tenderness *Routine Rectal Exam Rectal:: deferred *Routine Genitalia Exam Genitalia:: deferred *Routine Extremities Exam Extremities: Absent cyanosis, clubbing or edema Comments: left leg covered in dressing *Routine Skin Exam Skin: Present warm; Absent rash *Routine Neurological Exam Neurological: Present alert and oriented X3 Assessment and Plan *Assessment and plan (1) Cerebral infarction: Status: Acute Qualifiers: Laterality of affected vessel: left Category: Medical Code(s): I63.9 - Cerebral infarction, unspecified (2) CAD (coronary artery disease): Status: Acute Qualifiers: Associated angina: with stable angina Coronary Disease-Associated Artery/Lesion type: unspecified vessel or lesion type [place] vs. transplanted heart: unspecified whether [place] or transplanted heart Qualified Code(s): I25.118 - Atherosclerotic heart disease of [place] coronary artery with other forms of angina pectoris Category: Medical Code(s): I25.10 - Atherosclerotic heart disease of [place] coronary artery without angina pectoris (3) SATYA (obstructive sleep apnea): Problem Comment: Mild SATYA and poor compliance with CPAP. She has lost a significant amount of weight following bariatric surgery. 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: without custodial use Diabetes mellitus type: type 2 Qualified Code(s): E11.69 - Type 2 diabetes mellitus with other specified complication Category: Medical Code(s): E11.9 - Type 2 diabetes mellitus without complications (5) Major depressive disorder: Status: Chronic Qualifiers: Active/Remission status: remission status unspecified Major depression recurrence: recurrent Qualified Code(s): F33.9 - Major depressive disorder, recurrent, unspecified Category: Medical Code(s): F32.9 - Major depressive disorder, single episode, unspecified Plan 64-year-old female presents for concerns of generalized weakness, dizzyness, intermittent lightheadedness, sensation of right-sided weakness as well as fogginess and difficulty with word forming, followed by excessive sleepiness . Patient's son was just found after being missing for multiple days so she has been under significant stress. Labs personally reviewed demonstrate no leukocytosis, mild anemia, nonactionable, CMP with prerenal azotemia, patient is already receiving IV fluids, no other actionable abnormalities, initial troponin undetectably low at less than 0.01. CT imaging shows concern for subacute infarct in the left eckert radiata and left parietal cortex. These could certainly be reducing patient's right-sided symptoms and speech symptoms. patient outside tpA window. Ed requested admission for inpatient MRI. agreed. Plan: Acute subacte CVA: Improved symptoms almost resolved Admit patient Dipso med surg MRI head ordered. Neurocheck q4h. obtain STAT CT head if condition deteriorated PT/OT/SP to eval and treat repeat labs in the morning to complete risk assessment Diabetes: accucheck before meals sliding scales others chronic conditions reviewed stables . reconciled and resumed home meds lovenox for DVT ppx. on protonix Full code Rounded on patient after nurse practitioner. Personally examined and interviewed patient. Agree with exam findings and care plan as documented.
[2024-05-01] MEDS: humaLOG 100 UNITS/ML 10ML VIAL (SSI) SQ (05:55)
[2024-05-01 05:58] LABS: POC Glucose,Bedside 176 (70-110)
[2024-05-01 06:38] LABS: Basophils % 0.8 % (0.1-2.0); Eosinophils # 0.1 K/mm3 (0.0-0.4); Eosinophils % 1.5 % (0.1-12.0); Hematocrit 30.7 % (37.0-47.0); Hemoglobin 10.2 g/dL (12.2-16.2); Lymphocytes # 1.9 K/mm3 (0.7-4.5); Lymphocytes % 33.8 % (10-50); Mean Corpuscular HGB Conc 33.4 g/dL (31.8-35.4); Mean Corpuscular Hemoglobin 26.8 pg (27.0-31.2); Mean Corpuscular Volume 80.3 fl (81-99); Mean Platelet Volume 8.3 fl (7.4-10.4); Monocytes # 0.2 K/mm3 (0.1-1.0); Monocytes % 4.4 % (1.7-9.3); Neutrophils # 3.3 K/mm3 (1.8-7.8); Neutrophils % 59.6 % (37.0-80.0); Platelet Count 206 K/mm3 (142-424); Red Blood Count 3.82 M/mm3 (4.20-5.40); Red Cell Distribution Width 16.7 % (11.5-17.5); White Blood Count 5.5 K/mm3 (4.8-10.8)
[2024-05-01 07:08] LABS: Alanine Aminotransferase 25 U/L (12-78); Albumin Level 2.8 g/dl (3.5-5.0); Albumin/Globulin Ratio 1.1 (1.1-1.8); Alkaline Phosphatase 130 U/L (38-126); Anion Gap 9.9 mEq/L (5-15); Aspartate Amino Transferase 33 U/L (14-36); Blood Urea Nitrogen 20 mg/dl (7-17); Calcium 7.9 mg/dl (8.4-10.2); Carbon Dioxide 25 mmol/L (22.0-30.0); Chloride 107 mmol/L (98-107); Chol/HDL Ratio 4.1 (1-3.5); Cholesterol 122 mg/dl (140-200); Creatinine Clearance Estimated 80 mL/min (50-200); Estimated Glomerular Filt Rate 85 ml/min (>60); GFR (African American) 103 ML/MIN (>60); Globulin 2.6 g/dL (1.3-3.2); Glucose 180 mg/dl (74-100); HDL Cholesterol 30 mg/dl (40-60); Magnesium 1.7 mg/dl (1.6-2.3); Potassium 3.9 mmoL/L (3.5-5.1); Sodium 138 mmol/L (136-145); Total Protein,Serum 5.4 g/dl (6.3-8.2)
[2024-05-01 07:09] LABS: Bilirubin,Total 0.1 mg/dl (0.2-1.3); Triglycerides 450 mg/dl (30-150)
[2024-05-01 07:10] LABS: Troponin I < 0.01 ng/ml (0.00-0.034)
[2024-05-01 07:19] LABS: Direct LDL Cholesterol 43.16 mg/dL (100-129)
--- NOTE | 2024-05-01 08:13 | HMH.PHAINT1 ---
Pharmacy Intervention Comments: HOME MEDICATION LIST VERIFIED USING LIST FROM OUTPATIENT PHARMACY
[2024-05-01] MEDS: PANTOPRAZOLE 40MG TABLET 40 MG PO (08:30)
[2024-05-01] MEDS: ENOXAPARIN 40MG/0.4ML SYRINGE 40 MG SQ (08:31)
--- NOTE | 2024-05-01 09:29 | HMH.PTEV ---
Physical Therapy Evaluation Rehab PT IP Evaluation Start: 05/01/24 00:46 Freq: ONCE Status: Active Protocol: Document 05/01/24 09:01 JUDAH (Rec: 05/01/24 09:26 JUDAH [id number]) Subjective/History History History Patient Angeles Machado is a 64 yof who was admitted on for generalized weakness, intermittent lightheadedness, sensation of right-sided weakness as well as fogginess and difficulty with word forming. Her PMH is consistent with CAD, diabetes with neuropathy, thyroidectomy, and hypertension. Patient lives at home and only has one step to get into her home. She does have her papaw living with her and he tries to help as much as possible. She does normally use a walker or a cane when ambulating at home for safety. Subjective Subjective Patient does not complain of pain at this time just generalized weakness, she did not use an assistive device during ambulation this PT session but was assisted with contact guard/ hand holding as needed. Patient mentioned that at times she can begin to feel unsteady but is able to regain her balance through use of hand rails or the wall. New diagnosis of cancer in past 12 No months? Rehab PT IP Eval Objective Appearance Patient Behavior Appropriate,Cooperative Patient Orientation Person,Place,Name,Age,Birthday ,Day of Month,Situation Speech Pattern Clear,Appropriate Ambulation Patient Able to Ambulate Yes Ambulation Observation IP General Gait Pattern Observation Narrow Based Gait Ambulation Distance (feet) 50 Ambulation Assistive Device None Ambulation Ability Contact Guard/Hand Hold Balance Ability to Arise Able, uses arms to help Sitting Balance Leans or slides in chair Standing Balance Steady, wide stance Transfers Bed Transfer Ability Independent Sit to Stand Bed Transfer Ability Supervision/Stand by MMT RLE PT MMT WFL LLE PT MMT WFL Rehab PT IP prob,goals,plan Problems Date of Evaluation: 05/01/24 PT IP Problems Balance,Safety Rehab Potential Rehab Potential Innapropriate for Skilled Therapy Discharge Plan PT Discharge Plan Patient is not appropriate for skilled PT at this time currently, she is able to perform bed mobility and ambulation safely with little concern. It is recommended that home health be provided in order to address her concerns of being unsteady to improve her overall QOL. Eval Complexity Eval Charge Codes 29091 - High Complexity PHYSICIAN CERTIFICATION: I certify the specified therapy services for Angeles C Machado are required, authorized, and reviewed every 30 days.
--- NOTE | 2024-05-01 09:43 | MR_ITS ---
FINAL REPORT TECHNIQUE: Multiplanar MR without contrast CLINICAL HISTORY: CVA COMPARISON: 12/18/2023 FINDINGS: Diffusion sequences show no signal abnormality to indicate acute infarct. There is a stable chronic lacunar infarct in the left frontal white matter and basal ganglia. There are minimal chronic microvascular changes. Mild atrophy is present. No mass, hemorrhage or edema is seen. Ventricles are normal. Major vascular flow voids are intact. IMPRESSION: Stable exam without acute findings. Reviewed, Interpreted and Dictated by Jeanie Neal MD Transcribed by Linda Simmons Authenticated and [facility]
--- NOTE | 2024-05-01 09:50 | HMH.OTEV ---
OT Inpatient Evaluation Rehab OT IP Evaluation Start: 05/01/24 00:46 Freq: ONCE Status: Active Protocol: Document 05/01/24 09:12 EWELINA (Rec: 05/01/24 09:49 EWELINA [id number]) Rehab OT IP Assessment Subjective History 64-year-old female presents for concerns of generalized weakness, intermittent lightheadedness, sensation of right-sided weakness as well as fogginess and difficulty with word forming. Patient's son was just found after being missing for multiple days so she has been under significant stress. She also has multiple chronic medical conditions including CAD, diabetes with neuropathy, thyroidectomy, hypertension. Patient reports she has been having intermittent chest pain over the last few days. She states her symptoms onset approximately 3 days ago and have gotten somewhat worse. She denies dysuria or hematuria, no abdominal pain, nausea, vomiting, or shortness of breath. Patient does state her left side does not have as good a sensation as it normally does. None of her symptoms were new onset today. She states since they were bringing her son to the ER she thought she would be checked out as well. Admitted for further work up. Patient lives in [employer] building with 2-3 family/friends. Patient independent with ADLs and fx'l mobility. Continues to drive. Subjective I can get up. Instructed Patient on proper hand and foot placement to complete bed mobility from supine->sit @ EOB->stand->fx'l mobility. Instructed Patient on proper hand and foot placement to complete sit-> stand transfers with usage of RW ~25ft with CGA. Recommend Patient to use RW during fx'l mobility tasks. Objective Patient Orientation Person,Name,Age Right Upper Extremity Gross ROM WFL Left Upper Extremity Gross ROM WFL Bed Mobility bed mobility - supine/sit Assist Level Contact Guard/Hand Hold Transfer Training Sit/Stand/Pivot Transfer Assist Level Contact Guard/Hand Hold Chair Transfer Ability Contact Guard/Hand Hold Chair Transfer Technique Sit to/from Ambulatory Rehab OT IP prob,goals,plan Problems Date of Evaluation: 05/01/24 OT IP Problems Bed Mobility,Transfers,Balance ,Self care,Safety Rehab Potential Rehab Potential Good Equipment Needs Assistive Devices Rolling / Wheeled Walker Plan OT intervention Plan Bed Mobility,Transfers,Balance ,Self care,Safety,Therapeutic Exercise OT Plan Frequency Daily Duration LOS Discharge Goals Bed Mobility Ability Standby Assistance Sit to Stand Chair Transfer Ability Supervision/Stand by Chair Transfer Ability Supervision/Stand by Chair Transfer Technique Sit to/from Ambulatory Chair Transfer Assistive Devices Rolling Walker Discharge Plan OT Discharge Plan Recommend Patient to return home with HH services after medical d/c. Patient to continue skilled OT IP services whiler here at [facility] medical d/c. Eval Complexity Eval Charge Codes 98704 - Low Complexity PHYSICIAN CERTIFICATION: I certify the specified therapy services for Angeles Machado are required, authorized, and reviewed every 30 days.
[2024-05-01 11:17] LABS: POC Glucose,Bedside 62 (70-110)
--- NOTE | 2024-05-01 11:21 | P.DS_ITS ---
General Admission date:: 05/01/24 Discharge date: 05/01/24 HPI HPI HPI: 64-year-old female presents for concerns of generalized weakness, intermittent lightheadedness, sensation of right-sided weakness as well as fogginess and difficulty with word forming. Patient's son was just found after being missing for multiple days so she has been under significant stress. She also has multiple chronic medical conditions including CAD, diabetes with neuropathy, thyroidectomy, hypertension. Patient reports she has been having intermittent chest pain over the last few days. She states her symptoms onset approximately 3 days ago and have gotten somewhat worse. She denies dysuria or hematuria, no abdominal pain, nausea, vomiting, or shortness of breath. Patient does state her left side does not have as good a sensation as it normally does. None of her symptoms were new onset today. She states since they were bringing her son to the ER she thought she would be checked out as well. Admitted for further w ork up. Hospital Course Hospital Course Hospital Course: 64-year-old female presents for concerns of generalized weakness, dizzyness, intermittent lightheadedness, sensation of right-sided weakness as well as fogginess and difficulty with word forming, followed by excessive sleepiness . Patient's son was just found after being missing for multiple days so she has been under significant stress. Labs personally reviewed demonstrate no leukocytosis, mild anemia, nonactionable, CMP with prerenal azotemia, patient is already receiving IV fluids, no other actionable abnormalities, initial troponin undetectably low at less than 0.01. CT imaging shows concern for subacute infarct in the left eckert radiata and left parietal cortex. These could certainly be producing patient's right-sided symptoms and speech symptoms. Patient outside tpA window. Ed requested admission for inpatient MRI. Admitted to medicine for further management. MRI obtained. No acute finding but does have chronic changes. Neurologic exam with no significant focal deficits. Patient worked with therapy and stable to discharge home. Offered home health, she did not want home health at this time. Stable to discharge with close follow-up with her primary care as an outpatient. Problems addressed as follows: Acute/subacte CVA: Improved symptoms almost resolved Admitted for neurologic symptoms and further workup with MRI. Concerning symptoms with right-sided weakness and word finding difficulty. CT inconclusive. MRI was obtained showing no acute changes. Has chronic changes present. Suspect patient had TIA with no lasting image findings. Will start patient on Plavix 75 mg for 21 days. Already on aspirin, continue 81 mg daily. Not on a statin but she does take Repatha every 2 weeks due to statin intolerance. Continue this medication for cholesterol control. LDL well- controlled at 43. Triglycerides 450 however. Therapy evaluated, recommended home health, patient elected not to pursue home health at this time. Stable to discharge home with family. No further neurologic deficits during admission. Diabetes: A1c 6.7 last month. Appears to be well controlled, continue home regimen with dulaglutide weekly, glimepiride day, 58 units of insulin degludec daily. Blood pressure stable, continue home regimen see med rec for details Continue Effexor 150mg daily for mood Continue levothyroxine 175 mcg daily for hypothyroid, TSH 17, concern patient's not taking her medications. Stressed the importance of taking this medication, repeat TSH level in 2 to 4 weeks with PCP. Total time spent on discharge 32 minutes in counseling, documentation, chart review, and direct care with patient. Exam Data for Last 24 hours Vital signs and Labs for Last 24 Hours: Temp Pulse Resp BP Pulse Ox O2 Del Method 97.4 F L 66 18 148/70 H 97 Room Air 05/01/24 08:00 05/01/24 08:00 05/01/24 08:00 05/01/24 08:00 05/01/24 08:00 05/01/24 10:49 Laboratory Results - last 24 hr 04/30/24 22:25: Urine Color Yellow, Urine Appearance Clear, Urine pH 6.0, Ur Specific [place] >= 1.030, Urine Protein Negative, Urine Glucose (UA) Negative, Urine Ketones Negative, Urine Blood Negative, Urine Nitrate Negative, Urine Bilirubin Negative, Urine Urobilinogen 0.2, Ur Leukocyte Esterase 1+ A, Urine RBC None, Urine WBC 10-20, Ur Squamous Epith Cells 10-20, Ur Transition Epith Cell 3-5, Urine Bacteria Trace, Hyaline Casts 3-5, Urine Opiates Screen Negative, Urine Methadone Screen Negative, Ur Barbituates Screen Negative, Ur Phencyclidine Scrn Negative, Ur Amphetamines Screen Negative, U Benzodiazepines Scrn Negative, Urine Cocaine Screen Negative, U Marijuana (THC) Screen Positive H 04/30/24 22:30: WBC 8.7, RBC 4.26, Hgb 11.3 L, Hct 34.6 L, MCV 81.3, MCH 26.6 L, MCHC 32.8, RDW 16.8, Plt Count 237, MPV 8.2, Neut % (Auto) 62.9, Lymph % (Auto) 30.3, [place] % (Auto) 4.7, Eos % (Auto) 1.2, Baso % (Auto) 1.0, Neut # (Auto) 5.5, Lymph # (Auto) 2.6, [place] # (Auto) 0.4, Eos # (Auto) 0.1, Baso # (Auto) 0.1, PT 9.7 L, INR 0.85 L, Sodium 140, Potassium 4.1, Chloride 106, Carbon Dioxide 27, Anion Gap 11.1, BUN 24 H, Creatinine 0.90, Estimated Creat Clear 77, Estimated GFR 63, Est GFR ( Amer) 77, Glucose 121 H, Calcium 8.5, Total Bilirubin 0.2, AST 33, ALT 18, Alkaline Phosphatase 123, Troponin I < 0.01, Total Protein 7.5, Albumin 3.9, Globulin 3.6 H, Albumin/Globulin Ratio 1.1, TSH 17.00 H, Free T4 0.90 05/01/24 01:08: Troponin I < 0.01 05/01/24 05:16: WBC 5.5 D, RBC 3.82 L, Hgb 10.2 L, Hct 30.7 L, MCV 80.3 L, MCH 26.8 L, MCHC 33.4, RDW 16.7, Plt Count 206, MPV 8.3, Neut % (Auto) 59.6, Lymph % (Auto) 33.8, [place] % (Auto) 4.4, Eos % (Auto) 1.5, Baso % (Auto) 0.8, Neut # (Auto) 3.3, Lymph # (Auto) 1.9, [place] # (Auto) 0.2, Eos # (Auto) 0.1, Baso # (Auto) 0.0, Sodium 138, Potassium 3.9, Chloride 107, Carbon Dioxide 25, Anion Gap 9.9, BUN 20 H, Creatinine 0.70 D, Estimated Creat Clear 80, Estimated GFR 85, Est GFR ( Amer) 103 D, Glucose 180 H D, Calcium 7.9 L, Magnesium 1.7, Total Bilirubin 0.1 L, AST 33, ALT 25 D, Alkaline Phosphatase 130 H, Troponin I < 0.01, Total Protein 5.4 L D, Albumin 2.8 L D, Globulin 2.6, Albumin/Globulin Ratio 1.1, Triglycerides 450 H, Cholesterol 122 L, LDL Cholesterol Direct 43.16 L, HDL Cholesterol 30 L, Cholesterol/HDL Ratio 4.1 H 05/01/24 05:51: POC Glucose 176 H 05/01/24 11:10: POC Glucose 62 L I & O for Last 24 hours: Intake & Output 04/28/24 04/29/24 04/30/24 05/01/24 23:59 23:59 23:59 23:59 Intake Total 227 / 227 Output Total 0 / 0 Balance 227 / 227 Weight 83.915 kg 86.863 kg Constitutional Constitutional: no acute distress, obese, chronically ill appearing and cooperative *Routine HEENT Exam Head: Present normocephalic and atraumatic Eye: Present EOMI and PERRL ENT: Present mucous membranes moist *Routine Neck Exam Neck: Present supple; Absent lymphadenopathy *Routine Respiratory Exam Respiratory: Present CTA bilaterally *Routine Cardiovascular Exam Cardiovascular: Present RRR *Routine Abdominal Exam Abdominal: Present soft and normoactive bowel sounds; Absent tenderness *Routine Rectal Exam Patient deferred: visual exam *Routine Exam Patient deferred: external exam *Routine Extremities Exam Extremities: Absent cyanosis, clubbing or edema *Routine Skin Exam Skin: Present warm; Absent rash *Routine Neurological Exam Neurological: Present alert, oriented X3, CN II-XII intact and moving all extremities; Absent altered mental status Results Data Completed and Pending Labs on day of discharge: Labs from last 24 hours 05/01/24 05/01/24 05/01/24 11:10 05:51 05:16 WBC 5.5 D RBC 3.82 L Hgb 10.2 L Hct 30.7 L MCV 80.3 L MCH 26.8 L MCHC 33.4 RDW 16.7 Plt Count 206 MPV 8.3 Neut % (Auto) 59.6 Lymph % (Auto) 33.8 [place] % (Auto) 4.4 Eos % (Auto) 1.5 Baso % (Auto) 0.8 Neut # (Auto) 3.3 Lymph # (Auto) 1.9 [place] # (Auto) 0.2 Eos # (Auto) 0.1 Baso # (Auto) 0.0 PT INR Sodium 138 Potassium 3.9 Chloride 107 Carbon Dioxide 25 Anion Gap 9.9 BUN 20 H Creatinine 0.70 D Estimated Creat Clear 80 Estimated GFR 85 Est GFR ( Amer) 103 D Glucose 180 H D POC Glucose 62 L 176 H Calcium 7.9 L Magnesium 1.7 Total Bilirubin 0.1 L AST 33 ALT 25 D Alkaline Phosphatase 130 H Troponin I < 0.01 Total Protein 5.4 L D Albumin 2.8 L D Globulin 2.6 Albumin/Globulin Ratio 1.1 Triglycerides 450 H Cholesterol 122 L LDL Cholesterol Direct 43.16 L HDL Cholesterol 30 L Cholesterol/HDL Ratio 4.1 H TSH Free T4 Urine Color Urine Appearance Urine pH Ur Specific [place] Urine Protein Urine Glucose (UA) Urine Ketones Urine Blood Urine Nitrate Urine Bilirubin Urine Urobilinogen Ur Leukocyte Esterase Urine RBC Urine WBC Ur Squamous Epith Cells Ur Transition Epith Cell Urine Bacteria Hyaline Casts Urine Opiates Screen Urine Methadone Screen Ur Barbituates Screen Ur Phencyclidine Scrn Ur Amphetamines Screen U Benzodiazepines Scrn Urine Cocaine Screen U Marijuana (THC) Screen 05/01/24 04/30/24 04/30/24 01:08 22:30 22:25 WBC 8.7 RBC 4.26 Hgb 11.3 L Hct 34.6 L MCV 81.3 MCH 26.6 L MCHC 32.8 RDW 16.8 Plt Count 237 MPV 8.2 Neut % (Auto) 62.9 Lymph % (Auto) 30.3 [place] % (Auto) 4.7 Eos % (Auto) 1.2 Baso % (Auto) 1.0 Neut # (Auto) 5.5 Lymph # (Auto) 2.6 [place] # (Auto) 0.4 Eos # (Auto) 0.1 Baso # (Auto) 0.1 PT 9.7 L INR 0.85 L Sodium 140 Potassium 4.1 Chloride 106 Carbon Dioxide 27 Anion Gap 11.1 BUN 24 H Creatinine 0.90 Estimated Creat Clear 77 Estimated GFR 63 Est GFR ( Amer) 77 Glucose 121 H POC Glucose Calcium 8.5 Magnesium Total Bilirubin 0.2 AST 33 ALT 18 Alkaline Phosphatase 123 Troponin I < 0.01 < 0.01 Total Protein 7.5 Albumin 3.9 Globulin 3.6 H Albumin/Globulin Ratio 1.1 Triglycerides Cholesterol LDL Cholesterol Direct HDL Cholesterol Cholesterol/HDL Ratio TSH 17.00 H Free T4 0.90 Urine Color Yellow Urine Appearance Clear Urine pH 6.0 Ur Specific [place] >= 1.030 Urine Protein Negative Urine Glucose (UA) Negative Urine Ketones Negative Urine Blood Negative Urine Nitrate Negative Urine Bilirubin Negative Urine Urobilinogen 0.2 Ur Leukocyte Esterase 1+ A Urine RBC None Urine WBC 10-20 Ur Squamous Epith Cells 10-20 Ur Transition Epith Cell 3-5 Urine Bacteria Trace Hyaline Casts 3-5 Urine Opiates Screen Negative Urine Methadone Screen Negative Ur Barbituates Screen Negative Ur Phencyclidine Scrn Negative Ur Amphetamines Screen Negative U Benzodiazepines Scrn Negative Urine Cocaine Screen Negative U Marijuana (THC) Screen Positive H DS: Diagnosis Discharge Diagnosis (1) Cerebral infarction: Status: Acute Code(s): I63.9 - Cerebral infarction, unspecified Qualifiers: Laterality of affected vessel: left (2) CAD (coronary artery disease): Status: Acute Code(s): I25.10 - Atherosclerotic heart disease of [place] coronary artery without angina pectoris Qualifiers: Associated angina: with stable angina Coronary Disease-Associated Artery/Lesion type: unspecified vessel or lesion type [place] vs. transplanted heart: unspecified whether [place] or transplanted heart Qualified Code(s): I25.118 - Atherosclerotic heart disease of [place] coronary artery with other forms of angina pectoris (3) SATYA (obstructive sleep apnea): Status: Chronic Code(s): G47.33 - Obstructive sleep apnea (adult) (pediatric) Problem details: Mild SATYA and poor compliance with CPAP. She has lost a significant amount of weight following bariatric surgery. (4) Diabetes mellitus: Status: Acute Code(s): E11.9 - Type 2 diabetes mellitus without complications Qualifiers: Diabetes mellitus complication status: with other specified complication Diabetes mellitus joint terminal attack controller insulin use: without joint terminal attack controller use Diabetes mellitus type: type 2 Qualified Code(s): E11.69 - Type 2 diabetes mellitus with other specified complication (5) Major depressive disorder: Status: Chronic Code(s): F32.9 - Major depressive disorder, single episode, unspecified Qualifiers: Active/Remission status: remission status unspecified Major depression recurrence: recurrent Qualified Code(s): F33.9 - Major depressive disorder, recurrent, unspecified Meds Home Medications and Allergies Home Medications ?Medication ?Instructions ?Recorded ?Confirmed ?Type aspirin 81 mg tablet,delayed 81 mg PO DAILY 12/01/20 05/01/24 History release ergocalciferol (vitamin D2) 1,250 50,000 unit PO .TWICE A WEEK 07/02/23 05/01/24 History mcg (50,000 unit) capsule glimepiride 4 mg tablet 4 mg PO DAILY 90 days #90 tabs 12/31/23 05/01/24 Rx isosorbide mononitrate 30 mg 30 mg PO DAILY 90 days #90 tabs 12/31/23 05/01/24 Rx tablet,extended release 24 hr losartan 50 mg tablet 50 mg PO BID 90 days #180 tabs 12/31/23 05/01/24 Rx estradiol 0.01% (0.1 mg/gram) See Rx Instructions vaginal 03/17/24 05/01/24 Rx vaginal cream .COMPLEX #42.5 grams oxybutynin chloride 10 mg 10 mg PO DAILY #90 tabs 03/17/24 05/01/24 Rx tablet,extended release 24 hr dulaglutide 3 mg/0.5 mL 3 mg SQ WEEKLY 04/22/24 05/01/24 History subcutaneous pen injector (Trulicity) insulin degludec 100 unit/mL (3 58 unit (0.58 mL) SQ DAILY 90 days 04/22/24 05/01/24 Rx mL) subcutaneous pen (Tresiba #52.2 mL FlexTouch U-100 insulin) meloxicam 15 mg tablet 15 mg PO DAILY 04/22/24 05/01/24 History montelukast 10 mg tablet 10 mg PO HS 04/22/24 05/01/24 History levothyroxine 175 mcg tablet 175 mcg PO DAILY 90 days #90 tabs 04/24/24 05/01/24 Rx blood-glucose meter,continuous #1 ea 04/29/24 05/01/24 Rx (Dexcom G6 Perioperative Educator) blood-glucose sensor (Dexcom G6 #9 ea 04/29/24 05/01/24 Rx Sensor device) blood-glucose transmitter (Dexcom #1 ea 04/29/24 05/01/24 Rx G6 Transmitter device) aripiprazole 5 mg tablet (Abilify) 5 mg PO HS 05/01/24 05/01/24 History clopidogrel 75 mg tablet (Plavix) 75 mg PO DAILY 21 days #21 tabs 05/01/24 Rx levocetirizine 5 mg tablet 5 mg PO DAILY 05/01/24 05/01/24 History metoprolol succinate 50 mg 50 mg PO HS 05/01/24 05/01/24 History tablet,extended release 24 hr pantoprazole 40 mg tablet,delayed 40 mg PO HS 05/01/24 05/01/24 History release venlafaxine 150 mg 150 mg PO DAILY 05/01/24 05/01/24 History capsule,extended release 24 hr New Prescriptions to Start Prescriptions: clopidogrel [Plavix] Jama Brower Allergies Allergy/AdvReac Type Severity Reaction Status Date / Time pregabalin [From Lyrica] Allergy Mild Verified 04/22/24 15:07 codeine [CODEINE] Allergy Unknown I-ITCHING Verified 04/22/24 15:07 metformin [METFORMIN] Allergy Unknown HIVES, SOA Verified 04/22/24 15:07 pioglitazone [From ACTOS] Allergy Unknown SOA, HIVES Verified 04/22/24 15:07 gabapentin Allergy Verified 04/22/24 15:07 [id number] Reductase AdvReac Intermediate Verified 05/01/24 15:23 Inhibitor rosuvastatin [From Crestor] AdvReac Gastrointestinal Verified 05/01/24 15:36 Upset metformin Allergy Mild Gastrointestinal Uncoded 04/22/24 15:07 Upset Discharge Plan Disposition Patient Disposition: Home, Self-Care Condition: Fair Follow up Plan Follow up with: Mercy Guevara APRN [Primary Care Provider] - 05/13/24 2:30 pm Prescriptions/Medication Reconciliation: New clopidogrel [Plavix] 75 mg tablet 75 mg PO DAILY 21 Days Qty: 21 0RF Continued Trulicity 3 mg/0.5 mL pen injector 3 mg SQ WEEKLY montelukast 10 mg tablet 10 mg PO HS meloxicam 15 mg tablet 15 mg PO DAILY insulin degludec [Tresiba FlexTouch U-100] 100 unit/mL (3 mL) insulin pen 58 unit SQ DAILY 90 Days Qty: 52.2 1RF (DME) Dexcom G6 Perioperative Educator Misc See Rx Instructions .Route Qty: 1 0RF Rx Instructions: As directed (DME) Dexcom G6 Sensor Device See Rx Instructions .Route Qty: 9 3RF Rx Instructions: As directed, change every 10 days (DME) Dexcom G6 Transmitter Device See Rx Instructions .Route Qty: 1 0RF Rx Instructions: As directed aspirin 81 mg tablet,delayed release (DR/EC) 81 mg PO DAILY ergocalciferol (vitamin D2) 1,250 mcg (50,000 unit) capsule 50,000 unit PO .TWICE A WEEK glimepiride 4 mg tablet 4 mg PO DAILY 90 Days Qty: 90 1RF isosorbide mononitrate 30 mg tablet extended release 24 hr 30 mg PO DAILY 90 Days Qty: 90 1RF losartan 50 mg tablet 50 mg PO BID 90 Days Qty: 180 1RF estradiol 0.01 % (0.1 mg/gram) cream See Rx Instructions vaginal .COMPLEX Qty: 42.5 2RF Rx Instructions: Using finger technique daily for two weeks and then twice weekly vaginally; oxybutynin chloride 10 mg tablet extended release 24hr 10 mg PO DAILY Qty: 90 3RF levothyroxine 175 mcg tablet 175 mcg PO DAILY 90 Days Qty: 90 0RF venlafaxine 150 mg capsule,extended release 24hr 150 mg PO DAILY metoprolol succinate 50 mg tablet extended release 24 hr 50 mg PO HS pantoprazole 40 mg tablet,delayed release (DR/EC) 40 mg PO HS aripiprazole [Abilify] 5 mg tablet 5 mg PO HS levocetirizine 5 mg tablet 5 mg PO DAILY Problem Reconciliation Problems Reviewed?: Yes Patient Discharge Instructions ACTIVITY: Continue current activity DIET: continue same diet Print Language: [place] Providers Primary Care Provider: Mercy Guevara Admit Provider: Jama Brower Attending Provider: Jama Brower
--- NOTE | 2024-05-01 11:38 | PC.NURSE ---
Pt FSBS [address] Brower said it was okay to give pt orange juice, after drinking the juice pt FSBS is now 92. Pt had no issues with swallowing thin liquids.
[2024-05-01 11:45] LABS: POC Glucose,Bedside 92 (70-110)
--- NOTE | 2024-05-01 12:11 | CARE MANAGER ---
Therapy evaluated patient and recommended home health services. Patient states she does not wish to have these at this time. BEST Grossman
--- NOTE | 2024-05-01 14:55 | HMH.SLAPHASI ---
Speech & Language Evaluation Speech/Language Aphasia Evaluation Start: 05/01/24 14:18 Freq: once Status: Complete Protocol: Document 05/01/24 14:18 [facility] (Rec: 05/01/24 14:55 ECLARK Laptop) Co-signed By ST Kwasi Aphasia Assessment/Goals/Plan Assessment Date of Evaluation: 05/01/24 Evaluation Type Initial Certification Assessment/Problems stroke protocol per MD order Does Patient Qualify for Service No Qualify/Failure Comment Based on the results of the clinical bedside swallow evaluation, informal assessment, clinical observations, and pt/nursing interview, no further skilled speech therapy services are warranted at this time. Pt exhibits adequate cognitive- linguistic functioning and safe and efficient swallow. Plan Pt/Guardian verbally ack understanding Yes of dx/prognosis/goals G -code Required No Education Instructions provided Discussed results of CSE and informal cognitive-linguistic assessment to pt, nursing, and care management all of which expressed understanding. Pt/Caregiver Able to Recall Information Able to recall/restate Reinforcement needed No Speech & Language HPI History Present Illness Description of Patient Problem SENIOR WEB DESIGNER copied the following from pt's H&P: 64-year-old female presents for concerns of generalized weakness, intermittent lightheadedness, sensation of right-sided weakness as well as fogginess and difficulty with word forming. Patient's son was just found after being missing for multiple days so she has been under significant stress. She also has multiple chronic medical conditions including CAD, diabetes with neuropathy, thyroidectomy, hypertension. Patient reports she has been having intermittent chest pain over the last few days. She states her symptoms onset approximately 3 days ago and have gotten somewhat worse. She denies dysuria or hematuria, no abdominal pain, nausea, vomiting, or shortness of breath. Patient does state her left side does not have as good a sensation as it normally does. None of her symptoms were new onset today. She states since they were bringing her son to the ER she thought she would be checked out as well. Admitted for further work up. Rehab Services Assessed Speech therapy Is this evaluation r/t stroke? Yes Language Primary Language [place] Lang/Spoken in Home [place] Aphasia Evaluations Communication Speech Intelligibility Mrs. Machado exhibited adequate speech intelligibility c/b no articulation errors and appropriate fluency. Auditory Comprehension Yes: Word Level Sentences Following Directions Conversation AC Comment Mrs. Machado demonstrated adequate auditory comprehension on this date during conversation and following directions during CSE and informal cognitive- linguistic assessment. Reading Comprehension Yes: Word Naming Sentences RC Comment Mrs. Machado demonstrated adequate reading comprehension on this date while reading white board in her room with 100% accuracy independently. Verbal Expressive Language Yes: Word Level Naming ASIF Comment Mrs. Machado demonstrated adequate verbal expression on this date c/b 100% accuracy independently at object naming . Attending/Orientation/Memory Yes: Delayed Recall W/ Interference Orientation Attention/Concentration Memory AOM Comment Mrs. Machado demonstrated adequate attention/orientation , and memory on this date c/b 100% accuracy at abstract object delayed memory recall and orientation questions independently. Mrs. Machado stated she has some trouble with her memory, but she was able to recall past events to SENIOR WEB DESIGNER. Mrs. Machado demonstrated adequate attention during CSE and informal assessment. Congnitive/Linguistic Skills Yes: Thought Organization Categorization CLS Comment Mrs. Machado exhibited adequate cognitive linguistic skills on this date. Mrs. Machado demonstrated adequate thought organization by being able to list x16 animals in a 60 second time constraint. She demonstrated adequate categorization by being able name the category of abstract and concrete items with 75% accuracy. Mrs. Machado was incorrect on x1 abstract trial which could be '2 shift from concrete to abstract category. Additional Evaluation(s) Additional Tests A clinical bedside swallow evaluation was given on this date. Mrs. Machado was sitting upright, on room air, and edentulous. Pt stated she has dentures at her home. Pt also stated that she has PMHx of esophageal dilation and was told she would benefit from another dilation soon. Consistencies given include: thin liquid via open cup and straw (water), pudding, puree (applesauce), and mechanical soft (Nutrigrain bar). All bolus trials were presented x2 to assess consistency and fatigue. No overt s/sx of aspiration were exhibited on any trial presented. No anterior loss was exhibited on any trial '2 adequate labial seal. Mastication and manipulation of bolus was reduced and prolonged '2 usp on mechanical soft trial. Regular foods were not trialed d/t dentition. No oral residue was exhibited on any trial presented. SENIOR WEB DESIGNER recommends diet of mechanical soft/thin liquids w/ compensatory strategies of alternating bites and sips, sitting upright, and extra sauces/gravy. PHYSICIAN CERTIFICATION: I certify the specified therapy services for Angeles Machado are required, authorized, and reviewed every 30 days.
--- NOTE | 2024-05-02 12:49 | CARE MANAGER ---
Contacted patient related to hospital discharge. She states she is doing well. She has her new medication and is aware of follow up appointment. Denies any questions or concerns at this time. BEST Grossman
== END 2024-05-01 16:00 | disposition home or self-care (01) ==
LOC: ER 21:51 → 2ND 05-01 00:46
PROVIDERS: Nurse Practitioner Family; Admitting Provider Internal Medicine Adolescent Medicine; Emergency Provider Emergency Medicine; PCP Nurse Practitioner Family; Visit Provider Internal Medicine Adolescent Medicine
DX: I63.542 Cerebral infarction due to unspecified occlusion or stenosis of left cerebellar artery (principal); I25.118 Atherosclerotic heart disease of native coronary artery with other forms of angina pectoris; G47.33 Obstructive sleep apnea (adult) (pediatric); E11.40 Type 2 diabetes mellitus with diabetic neuropathy, unspecified; F33.9 Major depressive disorder, recurrent, unspecified; I10 Essential (primary) hypertension; E89.0 Postprocedural hypothyroidism; R47.89 Other speech disturbances; Z79.4 Long term (current) use of insulin; Z79.899 Other long term (current) drug therapy; E78.5 Hyperlipidemia, unspecified; F12.90 Cannabis use, unspecified, uncomplicated
CPT/HCPCS: 36415; 70450; 70496; 70498; 70551; 80050; 80053; 80061; 80307; 81001; 82962; 83735; 84439; 84443; 84484; 85025; 85610; 87086; 92523; 93005; 97163; 97165; 97530; 99285; G0378; J1650; J7120; Q9967

== ENCOUNTER 2024-05-06 10:49 | Outpatient (CLI) | payer MEDICARE, MEDICAID, SELFPAY ==
[2024-05-06 11:45] LABS: Microalbumin < 6.000 mg/L (0-16.7)
[2024-05-06 11:56] LABS: Alanine Aminotransferase 17 U/L (12-78); Albumin Level 3.5 g/dl (3.5-5.0); Albumin/Globulin Ratio 1.1 (1.1-1.8); Alkaline Phosphatase 113 U/L (38-126); Aspartate Amino Transferase 23 U/L (14-36); Bilirubin,Total 0.4 mg/dl (0.2-1.3); Blood Urea Nitrogen 20 mg/dl (7-17); Calcium 8.6 mg/dl (8.4-10.2); Carbon Dioxide 29 mmol/L (22.0-30.0); Chloride 107 mmol/L (98-107); Chol/HDL Ratio 3.3 (1-3.5); Cholesterol 144 mg/dl (140-200); Estimated Glomerular Filt Rate 73 ml/min (>60); GFR (African American) 88 ML/MIN (>60); Globulin 3.1 g/dL (1.3-3.2); Glucose 86 mg/dl (74-100); HDL Cholesterol 44 mg/dl (40-60); Sodium 140 mmol/L (136-145); Total Protein,Serum 6.6 g/dl (6.3-8.2); Triglycerides 145 mg/dl (30-150); VLDL Cholesterol 29 mg/dL (0-40)
[2024-05-06 12:07] LABS: Direct LDL Cholesterol 69.84 mg/dL (100-129)
[2024-05-06 12:11] LABS: Free T4 (Free Thyroxine) 1.38 ng/dl (0.78-2.19)
[2024-05-06 12:44] LABS: Vitamin B12 500 pg/mL (239-931)
[2024-05-06 13:03] LABS: Hemoglobin A1C 6.9 % (4.0-6.0)
[2024-05-07 16:13] LABS: Thyroglobulin IMA CHARGE YES; Thyroglobulin Level <1.0 IU/mL (0.0-0.9)
== END 2024-05-06 23:59 | disposition home or self-care (01) ==
LOC: LAB 10:55
PROVIDERS: PCP Nurse Practitioner Family; Visit Provider Hospitalist
DX: E11.69 Type 2 diabetes mellitus with other specified complication (principal); C73 Malignant neoplasm of thyroid gland; E55.9 Vitamin D deficiency, unspecified; E89.0 Postprocedural hypothyroidism; E78.5 Hyperlipidemia, unspecified
CPT/HCPCS: 36415; 80053; 80061; 82043; 82306; 82607; 83036; 84439; 84443; 86140; 86800

== ENCOUNTER 2024-05-13 15:20 | Outpatient (CLI) | payer MEDICARE, MEDICAID, SELFPAY ==
[2024-05-13 16:43] LABS: NT Pro Brain Natriuretic Pep. 137 pg/mL (0-125)
[2024-05-13 17:09] LABS: Ferritin 7.16 ng/ml (11.1-264)
[2024-05-13 19:39] LABS: Vitamin B12 500 pg/mL (239-931)
== END 2024-05-13 23:59 | disposition home or self-care (01) ==
LOC: LAB 15:23
PROVIDERS: PCP Nurse Practitioner Family; Visit Provider Nurse Practitioner Family
DX: I50.9 Heart failure, unspecified (principal); D64.9 Anemia, unspecified
CPT/HCPCS: 36415; 82607; 82728; 83880

== ENCOUNTER 2024-05-21 07:40 | Outpatient (CLI) | payer MEDICARE, MEDICAID, SELFPAY ==
--- NOTE | 2024-05-21 07:40 | CA_ITS ---
APPROVED REPORT EXAM: Comprehensive 2D, Doppler, and color-flow Echocardiogram Security Expert: DIOGO Lyons, RVS Ht: 5 ft 4 in Wt: 193lbs BSA: 1.93 BP: 126/74 mmHg Indications: SOB, HTN, CAD, SATYA, Stroke, DM, HLD, H/o-gastric sleeve Echo Enhancing Agent Comments: Poor acoustic windows throughout exam 2D Dimensions Left Atrium 4.05 cm F: 2.7 - 3.8 LA Volume 50.10 mL LA Volume Index [id number] mL/m2 (M/F) 16-34 M-Mode Dimensions RVDd 3.03 cm (0.9-2.6) LA Diam 3.43 cm (1.9-4.0) LVDd 5.73 cm (3.5-5.7) LVDs 3.90 cm (3.5-5.7) IVSd 0.90 cm (0.6-1.1) PWd 0.92 cm (0.6-1.1) EF (Teich) 57.50% EPSs 1.01 cm FS 30.60% EDV (Teich) 154.90 mL TAPSE 1.79 (<1.7) ESV (Teich) 65.90 mL LV Diastology E Decel Time 193 (160-240 msec) E/A Ratio 0.99 MED A' 8.60 cm/s LAT A' 8.40 cm/s Aortic Valve NICHOLAS Index 1.13 cm2/m2 AoV Peak Foster. 132.0 (50-130 cm/s) AO Peak GR. 6.90 mmHg AO Mean GR. 3.50 (<5 mmHg) AO VTI 28.4 (18-25 cm) NICHOLAS (VTI) 2.22 (2.5-4.5 cm2) Mitral Valve MV A Velocity 64.0 (40-130 cm/s) E/A Ratio 0.99 Pulmonary Valve PV Peak Velocity 100.0 (50-150 cm/s) Tricuspid Valve TR P. Velocity 140.00 cm/s RAP Estimate 10.00 mmHg RVSP 17.90 mmHg Left Ventricle The left ventricle is normal size. The left ventricular systolic function is low-normal. There is increased LV wall thickness. There is normal LV segmental wall motion. The left ventricular diastolic function is normal. LVEF is 50%. Right Ventricle Right ventricle is mildly dilated. The right ventricular systolic function is normal. Atria Left atrium is mildly dilated. The right atrium size is normal. There is no Doppler evidence of interatrial shunt. Aortic Valve The aortic vlave is mildly thickened. There is no aortic valvular stenosis. Trace aortic regurgitation. Mitral Valve The mitral valve is normal in structure. No evidence of mitral valve stenosis. Trace mitral regurgitation. Tricuspid Valve The tricuspid valve leaflets are thin and pliable. Trace tricuspid regurgitation. There is insufficient TR jet to estimate RVSP. Pulmonic Valve The pulmonary valve is normal in structure. Mild pulmonic regurgitation. Great Vessels The aortic root is normal in size. The ascending aorta is not well visualized. IVC is normal in size and collapses >50% with inspiration. Pericardium There is no pericardial effusion. Other Information Study Quality: Technically Difficult Conclusion Technically difficult study due to poor accoustic windows. Normal biventricular systolic function. Mild RV dilation. Mild LA dilation. Mild PI. Electronically signed by : Tawnya Mckinney MD 05/23/2024 03:22:53
== END 2024-05-21 23:59 | disposition home or self-care (01) ==
LOC: RT 07:40
PROVIDERS: PCP Nurse Practitioner Family; Visit Provider Nurse Practitioner Family
DX: R06.02 Shortness of breath (principal)
CPT/HCPCS: 93306

== ENCOUNTER 2024-05-21 16:57 | Outpatient (CLI) | payer MEDICARE, MEDICAID, SELFPAY ==
--- NOTE | 2024-05-21 17:06 | XR_ITS ---
PROCEDURE INFORMATION: Exam: XR Left Ankle Exam date and time: 05/21/2024 5:07 PM Age: 64 years old Clinical indication: Pain; Ankle; Left; Additional info: Ankle pain TECHNIQUE: Imaging protocol: Radiologic exam of the left ankle. Views: 3 or more views. COMPARISON: CR XR ANKLE WT BEARING LT MIN 3V 05/21/2024 5:07 PM FINDINGS: Bones/joints: No fracture or dislocation. Unchanged osseous fragments distal to the medial malleolus which are likely old avulsion fractures. Mild bone spurring of the medial aspect of the medial malleolus is unchanged. Surgical hardware in place for prior fusion of the calcaneocuboid, talonavicular, and subtalar joints. The hardware is intact. Unchanged screw within the lateral malleolus. Mild degenerative change of the tibiotalar joint. Small plantar surface calcaneal bone spur. Osteopenia. Soft tissues: Normal. IMPRESSION: 1. No acute findings. 2. Evidence of previous hindfoot fusion appears unchanged.
--- NOTE | 2024-05-21 17:06 | XR_ITS ---
PROCEDURE INFORMATION: Exam: XR Left Foot Complete; Alignment Exam date and time: 05/21/2024 5:07 PM Age: 64 years old Clinical indication: Pain; Foot; Left; Additional info: Foot pain TECHNIQUE: Imaging protocol: Radiologic exam of the left foot. Views: 3 or more views. COMPARISON: CR XR FOOT WT BEARING LT 3V 04/02/2024 10:36 AM FINDINGS: Bones/joints: No fracture or dislocation. Surgical hardware in the ankle for fusion of the calcaneocuboid, talonavicular, and subtalar joints. The hardware is intact. Mild degenerative change at the 1st metatarsophalangeal joint. Plantar surface calcaneal bone spur. Osteopenia. Soft tissues: Normal. IMPRESSION: 1. No acute findings. 2. Surgical changes from prior fusion of the hindfoot.
== END 2024-05-21 23:59 | disposition home or self-care (01) ==
LOC: LAB 16:59
PROVIDERS: PCP Nurse Practitioner Family; Visit Provider Podiatrist
DX: Z51.89 Encounter for other specified aftercare; R06.02 Shortness of breath; M79.672 Pain in left foot; M25.572 Pain in left ankle and joints of left foot
CPT/HCPCS: 73610; 73630; 87070; 87077; 87205; 93306

== ENCOUNTER → 2024-05-26 07:17 | Outpatient (CLI) | payer MEDICARE, MEDICAID, SELFPAY | LOC: SL 07:18 | PROVIDERS: PCP Nurse Practitioner Family; Visit Provider Specialist | DX: G47.33 Obstructive sleep apnea (adult) (pediatric) (principal) | CPT/HCPCS: G0399 ==

== ENCOUNTER 2024-06-02 13:47 | Outpatient (CLI) | payer MEDICARE, MEDICAID, SELFPAY ==
--- NOTE | 2024-06-02 13:52 | XR_ITS ---
FINAL REPORT CLINICAL HISTORY: Foot Pain COMPARISON: 12/17/2023 FINDINGS: LEFT FOOT Three views of the left foot demonstrate no acute fracture or dislocation. Postoperative changes of a subtalar fusion are once again identified. There is fragmentation of the medial tarsal navicular, also seen on the prior exam. There is soft tissue swelling dorsal to the talus. Moderate sized plantar calcaneal spurs are present. The visualized joint spaces are normally aligned. Diffuse soft tissue swelling remains present, along with osteopenia. IMPRESSION: Postoperative changes as described, without acute bony abnormality identified. Reviewed, Interpreted and Dictated by Jt Cole MD Transcribed by Tianna Means Authenticated and [facility]
== END 2024-06-02 23:59 | disposition home or self-care (01) ==
LOC: RAD 13:49
PROVIDERS: PCP Nurse Practitioner Family; Visit Provider Podiatrist
DX: M79.672 Pain in left foot (principal)
CPT/HCPCS: 73630

== ENCOUNTER 2024-06-10 15:18 | Outpatient (CLI) | payer MEDICARE, MEDICAID, SELFPAY ==
[2024-06-10 15:46] LABS: Microscopic, Urine URINE MICROSCOPIC (MICROSCOPIC)
[2024-06-10 15:46] LABS: Basophils # 0.1 K/mm3 (0-0.2); Basophils % 0.6 % (0.1-2.0); Eosinophils # 0.2 K/mm3 (0.0-0.4); Eosinophils % 2.5 % (0.1-12.0); Hematocrit 37.6 % (37.0-47.0); Hemoglobin 11.5 g/dL (12.2-16.2); Lymphocytes # 2.3 K/mm3 (0.7-4.5); Lymphocytes % 28.1 % (10-50); Mean Corpuscular HGB Conc 30.5 g/dL (31.8-35.4); Mean Corpuscular Hemoglobin 25.4 pg (27.0-31.2); Mean Corpuscular Volume 83.2 fl (81-99); Mean Platelet Volume 8.9 fl (7.4-10.4); Monocytes # 0.4 K/mm3 (0.1-1.0); Monocytes % 4.8 % (1.7-9.3); Neutrophils # 5.2 K/mm3 (1.8-7.8); Platelet Count 229 K/mm3 (142-424); Red Blood Count 4.51 M/mm3 (4.20-5.40); Red Cell Distribution Width 15.8 % (11.5-17.5); White Blood Count 8.2 K/mm3 (4.8-10.8)
[2024-06-10 16:02] LABS: D-Dimer 0.27 ug/mL (0.0-0.5)
[2024-06-10 16:04] LABS: Appearance,Urine CLEAR (Clear); Bilirubin,Urine Negative (Negative); Blood, Urine Negative (Negative); Color,Urine YELLOW (Yellow); Glucose,Urine (UA) Negative (Negative); Ketones,Urine Negative (Negative); Leukocyte Esterase,Urine TRACE (Negative); Nitrate,Urine Negative (Negative); Protein,Urine Negative (Negative); Specific Gravity, Urine 1.025 (1.005-1.030); Urobilinogen,Urine 0.2 EU/dl (0.2)
[2024-06-10 16:06] LABS: Chloride 107 mmol/L (98-107); Potassium 4.1 mmoL/L (3.5-5.1); Sodium 140 mmol/L (136-145)
[2024-06-10 16:08] LABS: Alanine Aminotransferase 15 U/L (12-78); Aspartate Amino Transferase 23 U/L (14-36); Blood Urea Nitrogen 21 mg/dl (7-17); Estimated Glomerular Filt Rate 73 ml/min (>60); GFR (African American) 88 ML/MIN (>60)
[2024-06-10 16:09] LABS: Albumin/Globulin Ratio 1.4 (1.1-1.8); Alkaline Phosphatase 115 U/L (38-126); Anion Gap 8.1 mEq/L (5-15); Bilirubin,Total 0.5 mg/dl (0.2-1.3); Calcium 8.7 mg/dl (8.4-10.2); Carbon Dioxide 29 mmol/L (22.0-30.0); Globulin 2.9 g/dL (1.3-3.2); Glucose 77 mg/dl (74-100); Magnesium 1.7 mg/dl (1.6-2.3); Total Protein,Serum 6.9 g/dl (6.3-8.2)
[2024-06-10 16:12] LABS: Bacteria,Urine Trace /lpf; RBC,Urine Occasional #/hpf (0-3)
[2024-06-10 16:40] LABS: Thyroid Stimulating Hormone 0.29 uIU/mL (0.465-4.68)
[2024-06-10 16:44] LABS: Ferritin 9.06 ng/ml (11.1-264)
== END 2024-06-10 23:59 | disposition home or self-care (01) ==
LOC: LAB 15:42
PROVIDERS: PCP Nurse Practitioner Family; Visit Provider Nurse Practitioner Family
DX: R51.9 Headache, unspecified (principal); E11.40 Type 2 diabetes mellitus with diabetic neuropathy, unspecified; Z79.4 Long term (current) use of insulin; E89.0 Postprocedural hypothyroidism; D64.9 Anemia, unspecified
CPT/HCPCS: 36415; 80050; 80053; 81001; 82728; 83735; 84443; 85025; 85378

== ENCOUNTER 2024-06-18 10:57 | Outpatient (CLI) | payer MEDICARE, MEDICAID, SELFPAY ==
--- NOTE | 2024-06-18 11:02 | CT_ITS ---
FINAL REPORT TECHNIQUE: Thin section axial CT images with coronal and sagittal reformats were performed. This study was performed with techniques to keep radiation doses as low as reasonably achievable (ALARA). Individualized dose reduction techniques using automated exposure control or adjustment of mA and/or kV according to the patient's size were employed. CLINICAL HISTORY: Foot Pain hx of surgery to left foot COMPARISON: 02/06/2024 FINDINGS: CT LEFT FOOT: CT examination of the left foot was performed with multiplanar reconstructions. There is fusion of the talocalcaneal, talonavicular, and calcaneocuboid joints, also noted on the prior exam. The hardware appears stable. Multiple soft tissue calcifications are again noted. The partially fused calcaneocuboid joint, which appeared fused on the prior exam on the dorsal aspect, is no longer seen, consistent with movement of the calcaneocuboid joint and possible loosening of the staple. No other changes are noted since the prior CT of February 05. Widespread soft tissue edema is noted in the left foot. IMPRESSION: The previously seen partially fused calcaneocuboid joint does not appear fused on today's examination, consistent with movement of the calcaneocuboid joint and possible loosening of the stable. The remainder of the foot appears unchanged since the prior CT of February 05. Widespread soft tissue swelling is once again identified. Reviewed, Interpreted and Dictated by Boy Bonner III, MD Transcribed by Tianna Means Authenticated and [facility]
--- NOTE | 2024-06-18 11:02 | CT_ITS ---
FINAL REPORT CLINICAL HISTORY: new onset daily headache hx of stroke approx. 1 month ago COMPARISON: MRI of the head dated 05/01/2024 FINDINGS: Axial images of the head were obtained without contrast. Coronal and sagittal reformatted images were also obtained.This study was performed with techniques to keep radiation doses as low as reasonably achievable (ALARA). Individualized dose reduction techniques using automated exposure control or adjustment of mA and/or kV according to the patient's size were employed. There is no evidence of intracranial hemorrhage or mass. There is a stable chronic left hemisphere lacunar infarct, unchanged since the prior MRI of April. The ventricular size is within normal limits. There is no evidence of shift of the midline structures. No abnormal extra axial fluid collection is identified. No skull abnormality is seen on the bone window images. IMPRESSION: No acute intracranial abnormality. Stable chronic left hemisphere lacunar infarct, unchanged since prior MRI of April. Reviewed, Interpreted and Dictated by Boy Bonner III, MD Transcribed by Tianna Means Authenticated and . [facility]
== END 2024-06-18 23:59 | disposition home or self-care (01) ==
LOC: RAD 10:59
PROVIDERS: PCP Nurse Practitioner Family; Visit Provider Podiatrist
DX: R51.9 Headache, unspecified (principal); M14.672 Charcot's joint, left ankle and foot; M79.672 Pain in left foot
CPT/HCPCS: 70450; 73700

== ENCOUNTER 2024-07-22 09:18 | Outpatient (CLI) | payer MEDICARE, MEDICAID, SELFPAY ==
--- NOTE | 2024-07-22 09:23 | XR_ITS ---
FINAL REPORT CLINICAL HISTORY: left foot charcot/foot pain COMPARISON: 06/02/2024 FINDINGS: LEFT FOOT Extensive hardware is present in the left hindfoot, with subtalar fusion, and with a staple fusing the calcaneocuboid joint. There are fragments of bone dorsal to the distal talus, that were also seen on the prior exam of May 2024. A moderate-sized plantar spur is present. IMPRESSION: Prior extensive fusion of the hindfoot, unchanged in appearance since the prior exam of May 2024. There are bone fragments dorsal to the distal talus, also seen on the prior exam of May 2024. Reviewed, Interpreted and Dictated by Jt Cole MD Transcribed by Tianna Means Authenticated and [facility]
== END 2024-07-22 23:59 | disposition home or self-care (01) ==
LOC: RAD 09:20
PROVIDERS: PCP Nurse Practitioner Family; Visit Provider Podiatrist
DX: M14.672 Charcot's joint, left ankle and foot (principal)
CPT/HCPCS: 73630

== ENCOUNTER 2024-07-28 16:49 | Outpatient (CLI) | payer MEDICARE, MEDICAID, SELFPAY ==
[2024-07-28 17:01] LABS: Basophils % 0.6 % (0.1-2.0); Eosinophils # 0.1 K/mm3 (0.0-0.4); Eosinophils % 1.5 % (0.1-12.0); Hematocrit 37.2 % (37.0-47.0); Hemoglobin 12.1 g/dL (12.2-16.2); Lymphocytes # 2.2 K/mm3 (0.7-4.5); Lymphocytes % 33.7 % (10-50); Mean Corpuscular HGB Conc 32.5 g/dL (31.8-35.4); Mean Corpuscular Hemoglobin 25.9 pg (27.0-31.2); Mean Corpuscular Volume 79.8 fl (81-99); Mean Platelet Volume 8.8 fl (7.4-10.4); Monocytes # 0.4 K/mm3 (0.1-1.0); Neutrophils # 3.8 K/mm3 (1.8-7.8); Neutrophils % 58.2 % (37.0-80.0); Platelet Count 206 K/mm3 (142-424); Red Blood Count 4.67 M/mm3 (4.20-5.40); Red Cell Distribution Width 15.3 % (11.5-17.5); White Blood Count 6.5 K/mm3 (4.8-10.8)
[2024-07-28 17:16] LABS: Alanine Aminotransferase 13 U/L (12-78); Albumin Level 4.1 g/dl (3.5-5.0); Albumin/Globulin Ratio 1.5 (1.1-1.8); Alkaline Phosphatase 106 U/L (38-126); Anion Gap 10.8 mEq/L (5-15); Aspartate Amino Transferase 22 U/L (14-36); Bilirubin,Total 0.6 mg/dl (0.2-1.3); Blood Urea Nitrogen 17 mg/dl (7-17); Calcium 8.8 mg/dl (8.4-10.2); Carbon Dioxide 28 mmol/L (22.0-30.0); Chloride 109 mmol/L (98-107); Chol/HDL Ratio 3.2 (1-3.5); Cholesterol 147 mg/dl (140-200); Estimated Glomerular Filt Rate 63 ml/min (>60); GFR (African American) 77 ML/MIN (>60); Globulin 2.7 g/dL (1.3-3.2); Glucose 71 mg/dl (74-100); HDL Cholesterol 46 mg/dl (40-60); Potassium 4.8 mmoL/L (3.5-5.1); Sodium 143 mmol/L (136-145); Total Protein,Serum 6.8 g/dl (6.3-8.2); Triglycerides 102 mg/dl (30-150); VLDL Cholesterol 20 mg/dL (0-40)
[2024-07-28 17:26] LABS: Direct LDL Cholesterol 76.83 mg/dL (100-129)
[2024-07-28 17:44] LABS: Thyroid Stimulating Hormone 0.23 uIU/mL (0.465-4.68)
[2024-07-28 18:03] LABS: Vitamin B12 451 pg/mL (239-931)
[2024-07-28 19:32] LABS: Hemoglobin A1C 7.5 % (4.0-6.0)
[2024-07-29 14:13] LABS: Triiodothyronine (T3) Free 2.8 pg/mL (2.0-4.4)
== END 2024-07-28 23:59 | disposition home or self-care (01) ==
LOC: LAB.DROPOF 16:49
PROVIDERS: PCP Nurse Practitioner Family; Visit Provider Nurse Practitioner Family
DX: E78.5 Hyperlipidemia, unspecified (principal); R06.02 Shortness of breath; E89.0 Postprocedural hypothyroidism; D64.9 Anemia, unspecified; E11.69 Type 2 diabetes mellitus with other specified complication
CPT/HCPCS: 80053; 80061; 82607; 83036; 84443; 84481; 85025

== ENCOUNTER 2024-09-02 12:30 | Outpatient (CLI) | payer MEDICARE, MEDICAID, SELFPAY ==
--- NOTE | 2024-09-02 12:35 | XR_ITS ---
FINAL REPORT CLINICAL HISTORY: foot pain, charcot eval COMPARISON: 07/22/2024 FINDINGS: AP, oblique and lateral views of the left foot were obtained. Again seen are postoperative changes to the hindfoot. The hardware is intact and unchanged. Again seen is a navicular fracture. There is multi-joint degenerative disease and osteopenia. There has been no further loss of height of the midfoot arch. There is no acute soft tissue abnormality. IMPRESSION: Postoperative and degenerative changes without new osseous abnormality. Reviewed, Interpreted and Dictated by Qian Galdamez MD Transcribed by Yana Mayer Authenticated and [facility]
== END 2024-09-02 23:59 | disposition home or self-care (01) ==
LOC: RAD 12:31
PROVIDERS: PCP Nurse Practitioner Family; Visit Provider Podiatrist
DX: M14.672 Charcot's joint, left ankle and foot (principal)
CPT/HCPCS: 73630

== ENCOUNTER 2024-09-10 15:17 | Outpatient (CLI) | payer MEDICARE, MEDICAID, SELFPAY ==
[2024-09-10 17:17] LABS: Free T4 (Free Thyroxine) 1.73 ng/dl (0.78-2.19)
[2024-09-10 17:46] LABS: T4 (Thyroxine) 13.6 ug/dl (5.53-11.0)
[2024-09-10 18:00] LABS: Thyroid Stimulating Hormone 0.25 uIU/mL (0.465-4.68)
[2024-09-11 08:26] LABS: Triiodothyronine (T3) Free 2.8 pg/mL (2.0-4.4)
== END 2024-09-10 23:59 | disposition home or self-care (01) ==
LOC: LAB.DROPOF 09-11 09:40
PROVIDERS: PCP Nurse Practitioner Family; Visit Provider Nurse Practitioner Family
DX: E03.9 Hypothyroidism, unspecified (principal)
CPT/HCPCS: 84436; 84439; 84443; 84481

== ENCOUNTER 2024-10-27 17:24 | Outpatient (CLI) | payer MEDICARE, MEDICAID, SELFPAY ==
[2024-10-27 18:05] LABS: Creatinine,Urine Random 116 mg/dL (Not Estab.)
[2024-10-27 18:10] LABS: Microalbumin/Creatinine Ratio 8.1
[2024-10-27 18:42] LABS: Albumin Level 4.4 g/dl (3.5-5.0); Chloride 103 mmol/L (98-107)
[2024-10-27 18:43] LABS: Potassium 4.7 mmoL/L (3.5-5.1); Sodium 137 mmol/L (136-145)
[2024-10-27 18:45] LABS: Alanine Aminotransferase 14 U/L (12-78); Albumin/Globulin Ratio 1.7 (1.1-1.8); Alkaline Phosphatase 100 U/L (38-126); Anion Gap 10.7 mEq/L (5-15); Aspartate Amino Transferase 23 U/L (14-36); Bilirubin,Total 0.6 mg/dl (0.2-1.3); Blood Urea Nitrogen 15 mg/dl (7-17); Carbon Dioxide 28 mmol/L (22.0-30.0); Estimated Glomerular Filt Rate 73 ml/min (>60); GFR (African American) 88 ML/MIN (>60); Globulin 2.6 g/dL (1.3-3.2)
[2024-10-27 18:46] LABS: Calcium 9.2 mg/dl (8.4-10.2); Chol/HDL Ratio 5.3 (1-3.5); Cholesterol 219 mg/dl (140-200); Glucose 60 mg/dl (74-100); HDL Cholesterol 41 mg/dl (40-60); Triglycerides 152 mg/dl (30-150); VLDL Cholesterol 30 mg/dL (0-40)
[2024-10-27 18:57] LABS: Direct LDL Cholesterol 138.35 mg/dL (100-129)
[2024-10-27 19:17] LABS: Thyroid Stimulating Hormone 3.48 uIU/mL (0.465-4.68)
[2024-10-27 20:46] LABS: Hemoglobin A1C 7.3 % (4.0-6.0)
== END 2024-10-27 23:59 | disposition home or self-care (01) ==
LOC: LAB.DROPOF 17:25
PROVIDERS: PCP Nurse Practitioner Family; Visit Provider Nurse Practitioner Family
DX: E78.5 Hyperlipidemia, unspecified (principal); E89.0 Postprocedural hypothyroidism; E11.40 Type 2 diabetes mellitus with diabetic neuropathy, unspecified; Z79.4 Long term (current) use of insulin; E11.69 Type 2 diabetes mellitus with other specified complication
CPT/HCPCS: 80053; 80061; 82043; 82570; 83036; 84443

== ENCOUNTER 2024-11-04 13:13 | Outpatient (CLI) | payer MEDICARE, MEDICAID, SELFPAY ==
--- NOTE | 2024-11-04 13:18 | XR_ITS ---
FINAL REPORT CLINICAL HISTORY: s/p left foot surgery COMPARISON: 09/02/2024 FINDINGS: LEFT FOOT Three views of the left foot demonstrate postoperative changes from prior subtalar fusion. Orthopedic hardware is unchanged in position. There is no acute fracture or dislocation. Mild hypertrophic changes are seen over the dorsal aspect of the intertarsal joints. The soft tissues are unremarkable. IMPRESSION: No acute bony abnormality, no change from prior. Reviewed, Interpreted and Dictated by Jt Cole MD Transcribed by Linda Simmons Authenticated and [facility]
== END 2024-11-04 23:59 | disposition home or self-care (01) ==
LOC: RAD 13:16
PROVIDERS: PCP Nurse Practitioner Family; Visit Provider Podiatrist
DX: M14.672 Charcot's joint, left ankle and foot (principal); Z98.890 Other specified postprocedural states
CPT/HCPCS: 73630

== ENCOUNTER 2024-11-05 09:14 | Outpatient (CLI) | payer MEDICARE, MEDICAID, SELFPAY ==
--- NOTE | 2024-11-05 09:17 | US_ITS ---
FINAL REPORT CLINICAL HISTORY: BUE pain, cold hands, discoloration to fingers,HLD,DM,HTN FINDINGS: ANKLE-BRACHIAL PRESSURE INDICES Pressure indices are as follows: RIGHT UPPER EXTREMITY: Ankle-brachial pressure index: 1.0 Comments: Normal LEFT LOWER EXTREMITY: Ankle-brachial pressure index: 1.2 Comments: Normal IMPRESSION: No evidence of significant obstructive peripheral vascular disease of the upper extremities Reviewed, Interpreted and Dictated by Jt Cole MD Transcribed by Linda Simmons Authenticated and [facility]
== END 2024-11-05 23:59 | disposition home or self-care (01) ==
LOC: RT 09:15
PROVIDERS: PCP Nurse Practitioner Family; Visit Provider Nurse Practitioner Family
DX: M79.601 Pain in right arm (principal); M79.602 Pain in left arm; L81.9 Disorder of pigmentation, unspecified; R20.9 Unspecified disturbances of skin sensation
CPT/HCPCS: 93923

== ENCOUNTER 2024-12-08 15:00 | Outpatient (CLI) | payer MEDICARE, MEDICAID, SELFPAY ==
[2024-12-08 18:21] LABS: Anti-Centromere B Antibodies ND; Anti-DNA (DS) Ab Qn ND; Anti-Jo-1 ND; Antichromatin Antibodies ND; Antiscleroderma-70 Antibodies ND; RNP Antibodies ND; Sjogren's Anti-SS-A ND; Sjogren's Anti-SS-B ND
[2024-12-08 19:29] LABS: Creatinine,Urine Random 185 mg/dL (Not Estab.); Microalbumin/Creatinine Ratio 5.9
[2024-12-08 23:00] LABS: Anion Gap 11.8 mEq/L (5-15); Blood Urea Nitrogen 23 mg/dl (7-17); Carbon Dioxide 28 mmol/L (22.0-30.0); Chloride 106 mmol/L (98-107); Estimated Glomerular Filt Rate 73 ml/min (>60); Potassium 4.8 mmoL/L (3.5-5.1); Sodium 141 mmol/L (136-145)
[2024-12-08 23:01] LABS: Alanine Aminotransferase 13 U/L (12-78); Albumin Level 4.6 g/dl (3.5-5.0); Albumin/Globulin Ratio 1.8 (1.1-1.8); Alkaline Phosphatase 91 U/L (38-126); Aspartate Amino Transferase 22 U/L (14-36); Bilirubin,Total 0.5 mg/dl (0.2-1.3); Calcium 9.2 mg/dl (8.4-10.2); Chol/HDL Ratio 2.9 (1-3.5); Cholesterol 135 mg/dl (140-200); GFR (African American) 88 ML/MIN (>60); Globulin 2.5 g/dL (1.3-3.2); Glucose 70 mg/dl (74-100); HDL Cholesterol 47 mg/dl (40-60); Magnesium 1.7 mg/dl (1.6-2.3); Total Protein,Serum 7.1 g/dl (6.3-8.2); Triglycerides 111 mg/dl (30-150); VLDL Cholesterol 22 mg/dL (0-40)
[2024-12-08 23:12] LABS: Direct LDL Cholesterol 68.45 mg/dL (100-129)
[2024-12-08 23:18] LABS: T4 (Thyroxine) 14.8 ug/dl (5.53-11.0)
[2024-12-08 23:19] LABS: Free T4 (Free Thyroxine) 1.95 ng/dl (0.78-2.19)
[2024-12-08 23:51] LABS: Vitamin B12 451 pg/mL (239-931)
[2024-12-08 23:54] LABS: Hemoglobin A1C 6.6 % (4.0-6.0)
[2024-12-09 01:21] LABS: Ferritin 12.6 ng/ml (11.1-264)
[2024-12-10 12:12] LABS: Triiodothyronine (T3) Free 2.9 pg/mL (2.0-4.4)
[2024-12-10 15:10] LABS: Antinuclear Antibodies (ANA) Negative (Negative)
== END 2024-12-08 23:59 | disposition home or self-care (01) ==
LOC: LAB.DROPOF 12-10 12:37
PROVIDERS: PCP Nurse Practitioner Family; Visit Provider Nurse Practitioner Family
DX: R41.3 Other amnesia (principal); M79.603 Pain in arm, unspecified; R20.9 Unspecified disturbances of skin sensation; E89.0 Postprocedural hypothyroidism; E11.40 Type 2 diabetes mellitus with diabetic neuropathy, unspecified; Z79.4 Long term (current) use of insulin; E78.5 Hyperlipidemia, unspecified
CPT/HCPCS: 80053; 80061; 82043; 82570; 82607; 82728; 83036; 83735; 84436; 84439; 84443; 84481; 86038; 86225; 86235

== ENCOUNTER 2025-02-17 10:09 | Outpatient (CLI) | payer MEDICARE, MEDICAID, SELFPAY ==
[2025-02-17 10:58] LABS: Hemoglobin A1C 6.4 % (4.0-6.0)
[2025-02-17 11:01] LABS: Creatinine,Urine Random 200 mg/dL (Not Estab.)
[2025-02-17 11:03] LABS: Microalbumin/Creatinine Ratio 25.9
[2025-02-17 11:13] LABS: 25-OH Vitamin D, Total 112 ng/mL (30-100)
[2025-02-17 11:17] LABS: Albumin Level 4.1 g/dl (3.5-5.0); Chloride 106 mmol/L (98-107); Potassium 4.3 mmoL/L (3.5-5.1); Sodium 140 mmol/L (136-145)
[2025-02-17 11:20] LABS: Alanine Aminotransferase 18 U/L (12-78); Albumin/Globulin Ratio 1.6 (1.1-1.8); Alkaline Phosphatase 104 U/L (38-126); Anion Gap 8.3 mEq/L (5-15); Aspartate Amino Transferase 20 U/L (14-36); Bilirubin,Total 0.4 mg/dl (0.2-1.3); Blood Urea Nitrogen 19 mg/dl (7-17); Calcium 8.7 mg/dl (8.4-10.2); Carbon Dioxide 30 mmol/L (22.0-30.0); Cholesterol 128 mg/dl (140-200); Estimated Glomerular Filt Rate 73 ml/min (>60); GFR (African American) 88 ML/MIN (>60); Globulin 2.6 g/dL (1.3-3.2); Glucose 131 mg/dl (74-100); Total Protein,Serum 6.7 g/dl (6.3-8.2); Triglycerides 185 mg/dl (30-150); VLDL Cholesterol 37 mg/dL (0-40)
[2025-02-17 11:21] LABS: HDL Cholesterol 43 mg/dl (40-60)
[2025-02-17 11:31] LABS: Direct LDL Cholesterol 58.68 mg/dL (100-129)
[2025-02-17 11:52] LABS: Thyroid Stimulating Hormone 0.37 uIU/mL (0.465-4.68)
[2025-02-17 13:11] LABS: Vitamin B12 680 pg/mL (239-931)
== END 2025-02-17 23:59 | disposition home or self-care (01) ==
LOC: LAB 10:10
PROVIDERS: PCP Nurse Practitioner Family; Visit Provider Hospitalist
DX: E89.0 Postprocedural hypothyroidism (principal); E11.69 Type 2 diabetes mellitus with other specified complication; E78.5 Hyperlipidemia, unspecified; E55.9 Vitamin D deficiency, unspecified
CPT/HCPCS: 36415; 80053; 80061; 82043; 82306; 82570; 82607; 83036; 84443; 86140

== ENCOUNTER 2025-03-03 08:07 | Outpatient (CLI) | payer MEDICARE, MEDICAID, SELFPAY ==
--- NOTE | 2025-03-03 08:11 | XR_ITS ---
FINAL REPORT CLINICAL HISTORY: foot pain COMPARISON: 11/04/2024 FINDINGS: LEFT FOOT Three views of the left foot demonstrate screws securing the subtalar joints. There is no acute fracture or dislocation. Osteopenia is noted. There are mild hypertrophic changes of the first MTP joint. There is a multitude of small ossific densities overlying the dorsal aspect of the distal talus measuring up to 5 mm, probably representing chronic loose bodies. The soft tissues are unremarkable. IMPRESSION: Chronic/degenerative changes without acute bony abnormality. Reviewed, Interpreted and Dictated by Jt Cole MD Transcribed by Linda Simmons Authenticated and [facility]
== END 2025-03-03 23:59 | disposition home or self-care (01) ==
LOC: RAD 08:08
PROVIDERS: PCP Nurse Practitioner Family; Visit Provider Podiatrist
DX: M19.072 Primary osteoarthritis, left ankle and foot (principal); M14.672 Charcot's joint, left ankle and foot; M79.673 Pain in unspecified foot; Z98.890 Other specified postprocedural states
CPT/HCPCS: 73630

== ENCOUNTER 2025-03-09 15:01 | Outpatient (CLI) | payer MEDICARE, MEDICAID, SELFPAY ==
[2025-03-09 17:06] LABS: Basophils % 0.4 % (0.1-2.0); Eosinophils # 0.1 Kmm3 (0.0-0.4); Eosinophils % 1.5 % (0.1-12.0); Hematocrit 39.4 % (37.0-47.0); Hemoglobin 12.1 g/dL (12.2-16.2); Immature Granulocytes # 0.03 10^3uL; Immature Granulocytes % 0.4 %; Lymphocytes # 1.7 K/mm3 (0.7-4.5); Lymphocytes % 23.2 % (10-50); Mean Corpuscular HGB Conc 30.7 g/dL (31.8-35.4); Mean Corpuscular Hemoglobin 26.1 pg (27.0-31.2); Mean Corpuscular Volume 85.1 fl (81-99); Mean Platelet Volume 10.5 fl (7.4-10.4); Monocytes # 0.4 K/mm3 (0.1-1.0); Monocytes % 4.9 % (1.7-9.3); Neutrophils # 5.1 K/mm3 (1.8-7.8); Neutrophils % 69.6 % (37.0-80.0); Nucleated Red Blood Cells # 0 10^3/uL; Nucleated Red Blood Cells % 0 %; Platelet Count 198 K/mm3 (142-424); Red Blood Count 4.63 M/mm3 (4.20-5.40); Red Cell Distribution Width 13.5 % (11.5-17.5); Red Cell Distribution Width-SD 42.1 fL; White Blood Count 7.3 K/mm3 (4.8-10.8)
[2025-03-09 18:22] LABS: T4 (Thyroxine) 15.2 ug/dl (5.53-11.0)
[2025-03-09 18:35] LABS: Thyroid Stimulating Hormone < 0.02 uIU/mL (0.465-4.68)
[2025-03-11 13:44] LABS: Triiodothyronine (T3) Free 2.9 pg/mL (2.0-4.4)
== END 2025-03-09 23:59 | disposition home or self-care (01) ==
LOC: LAB.DROPOF 03-10 11:58
PROVIDERS: PCP Nurse Practitioner Family; Visit Provider Nurse Practitioner Family
DX: E89.0 Postprocedural hypothyroidism (principal); S70.361A Insect bite (nonvenomous), right thigh, initial encounter; W57.XXXA Bitten or stung by nonvenomous insect and other nonvenomous arthropods, initial encounter
CPT/HCPCS: 84436; 84439; 84443; 84481; 85025

== ENCOUNTER 2025-04-17 16:08 | Emergency (ER) | payer MEDICARE, MEDICAID, SELFPAY ==
--- OUTSIDE RECORDS SUMMARY | 2025-02-23 15:00 | XMS_ITS | Encounter Summary ---
Author Organization [place] [address] Care Team Providers Care Product Support Manager Name Role Phone Chris Serra MD Unavailable [phone] Reason for Visit * Reason Comments Diabetes Type 2 Encounter Details Date Type Department Care Team (Late st Contact Info) Description 02/23/2025 3:00 PM EDT [facility] [place] [address] [facility] [address] [place] [phone] Rojas Cunningham MD [address] [facility] [address] [place] [address] Dyslipidemia associated with type 2 [...] UNIT/ML (3 ML) SUBCUTANEOUS PEN - 0 Rx#[id number]. -01/09/2024 TRESIBA FLEXTOUCH U-100 INSULIN 100 UNIT/ML (3 ML) SUBCUTANEOUS PEN - 0 Rx#[id number]. Insulin release stimulant medications: -09/05/2023 GLIMEPIRIDE 4 MG TABLET - 4 mg EVERY MORNING Rx#[id number]. DPP-4 Inhibitor medications: No DDP-4 Inhibitor orders found for patient GLP-1 agonists medications: -09/05/2023 TRULICITY 3 MG/0.5 ML SUBCUTANEOUS PEN INJECTOR - 3 mg WEEKLY Rx#[id number]. Incretin mimetic combination medications: No Incretin Mimetic [...] PRAVASTATIN 20 MG TABLET - 0 NIGHTLY Rx#[id number]. PCSK9 Inhibitors: -07/18/2024 REPATHA SURECLICK 140 MG/ML SUBCUTANEOUS PEN INJECTOR - 140 mg EVERY 14 DAYS Rx#[id number]. Other antihyperlipidemic medications: No other antihyperlipidemic orders found for patient Therapy plan medications: No therapy plan of the specified type found. Urugu[place] Score is 4 Has 3 children Allergic [...] Eye Exam External Results Assessment and Plan: Angeles was seen today for diabetes. Diagnoses and [...] Dexcom Customer Care number to reach out [phone]. Daughter and patient verbalized understanding. documented in [...] Description 07/01/2025 3:20 PM EDT [facility] [place] [address] [facility] [address] [place] [phone] Rojas Cunningham MD [address] [facility] [address] [place] [phone] Scheduled Orders Name Type Priority Associated [...] 02/23/2025 documented in this encounter Care Teams Product Support Manager Relationship Specialty Start Date End Date Chris Serra MD [address] [place] [address] [place] [address] Physician Internal Medicine-Cardiovascular Disease 01/16/13 documented as of this encounter
--- OUTSIDE RECORDS SUMMARY | 2025-04-17 16:16 | XMS_ITS | Clinical Summary ---
Author Organization [facility] Address [address] [place] [id number] Care Team Providers Care Fence Installer Helper Name Role Phone Tiffany Mayen Peng Primary Care Provider [phone] Source Comments This information has been disclosed to you from confidential records protectedfrom disclosure by state law. You shall make no further disclosure of thisinformation without the specific, written, and informed release of theindividual to whom it pertains, or as otherwise permitted by law. A generalauthorization for the release of medical or other information is not sufficientfor the purposes of therelease of HIV test results or diagnoses. [id number] Allergies No known active allergies Immunizations Immunization Administration Dates Next Due Influenza, unspecified 09/09/2009 Pneumococcal polysaccharide, 23-valent 9 Social History Tobacco Use Types Packs/Day Years Used Date Smoking Tobacco: Never Assessed Comments Unknown Sex and Gender Information Value Date Recorded Sex Assigned at Not on file Legal Sex Female 4:15 PM EST Gender Identity Not on file Sexual Orientation Not on file Plan of Treatment Not on file Insurance [place] Care Teams Fence Installer Helper Relationship Specialty Start Date End Date Tiffany Mayen [address] [facility] [address] [address] PCP - General 07/12/16
--- NOTE | 2025-04-17 16:17 | PC.NURSE ---
BGL 84mg/dl per Khadar Farmer RN
--- OUTSIDE RECORDS SUMMARY | 2025-04-17 16:17 | XMS_ITS | Encounter Summary ---
Author Organization [place] [address] Care Team Providers Care Plaster Form Maker Name Role Phone Chris Serra MD Unavailable [phone] Reason for Visit * Reason Onset Date Comments Labs Only 02/16/2025 Encounter Details Date Type Department Care Team (Late st Contact Info) Description 02/16/2025 Telephone [facility] [address] [facility] [address] [place] [phone] Rojas Cunningham MD [address] [facility] [address] [place] [address] Labs Only Social History Tobacco Use Types Packs/Day Years Used Date Smoking Tobacco: Never Smokeless Tobacco: Never Alcohol Use Standard Drinks/Week Comments No 0 (1 standard drink = 0.6 oz pur e alcohol) Sexually Active Control Partners Comments Yes Male Comments No Sex and Gender Information Value Date Recorded Sex Assigned at Not on file Legal Sex Female 5:02 PM EDT Gender Identity Not on file Sexual Orientation Not on file documented as of this encounter Functional Status * Is the [...] Peng Soriano RN documented in this encounter Miscellaneous Notes * Telephone Encounter - Viviana Campuzano RN - 02/17/2025 9:41 AM EDT Patient called office. Lab orders faxed to incorrect number. Lab orders sent to [phone]. * Telephone Encounter - Kadie Mahoney RMA - 02/16/2025 1:19 PM EDT Printed and faxed lab orders as requested [phone] * Telephone Encounter - Fidel Golden - 02/16/2025 12:48 PM EDT Patient calling and needing labs faxed over to the [facility] but didn't have fax number and stated we should have it on file. documented in this encounter Plan of Treatment Upcoming Encounters Date Type Department Care Team (Late st Contact Info) Description 07/01/2025 3:20 PM EDT Office Visit [facility] Diabetes [place] [address] [facility] [address] [place] [address] Rojas Cunningham MD [address] [facility] [address] [place] [address] documented as of this encounter Goals Goal [...] documented as of this encounter Visit Diagnoses Not on filedocumented in this encounter Care Teams Plaster Form Maker Relationship Specialty Start Date End Date Chris Serra MD [address] [place] [address] [place] [address] Physician Internal Medicine-Cardiovascular Disease 01/16/13 documented as of this encounter
--- OUTSIDE RECORDS SUMMARY | 2025-04-17 16:17 | XMS_ITS | Encounter Summary ---
Author Organization [place] [address] Care Team Providers Care Stonemason Name Role Phone Chris Serra MD Unavailable [phone] Reason for Visit * Reason Onset Date Comments Paperwork/forms 02/12/2025 Encounter Details Date Type Department Care Team (Late st Contact Info) Description 02/12/2025 Telephone [facility] Physicians [facility] [address] [facility] [address] [place] [id number] Rojas Cunningham MD [address] [facility] [address] [place] [phone] Paperwork/forms Social History Tobacco Use Types Packs/Day Years [...] encounter Miscellaneous Notes * Telephone Encounter - Kadie Mahoney RMA - 02/16/2025 10:35 AM EDT CL spoke with Daughter - aware form will be filled at [facility] due to needing an updated foot exam * Telephone Encounter - Fidel Golden - 02/12/2025 3:54 PM EDT Patient dropped off shoe forms and placed in mail box for Dr. Cunningham. also gave phone number to call when done and its been faxed please phone number of [phone] documented in this encounter Plan of Treatment Upcoming Encounters Date Type Department Care Team (Late st Contact Info) Description 07/01/2025 3:20 PM EDT [facility] [address] [facility] [address] [place] [phone] Rojas Cunningham MD [address] [phone] documented as of this encounter Goals [...] on filedocumented in this encounter Care Teams Stonemason Relationship Specialty Start Date End Date Chris Serra MD [address] [place] [address] [place] [id number] Physician Internal Medicine-Cardiovascular Disease 01/16/13 documented as of this encounter
--- OUTSIDE RECORDS SUMMARY | 2025-04-17 16:17 | XMS_ITS ---
Laboratory report Created on: March 13, 2025 DUSTIN KIMBROUGH : 1960 Sex: Female Author Organization Unknown PROBLEMS Problems List Code Description RESULTS Laboratory Orders Date Order Code Test 2025-03-09 657898 TRIIODOTHYRONINE (T3), FREE Laboratory Results Date LOINC Test Value Unit Reference Range Interpre tation 2025-03-09 3051-0 TRIIODOTHYRONINE (T3), FREE 2.9 PG/ML 2.0-4.4
--- OUTSIDE RECORDS SUMMARY | 2025-04-17 16:17 | XMS_ITS | Clinical Summary ---
Author Organization Healthcare Address [address] 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 Name Role Phone Unavailable Primary Care Provider Unavailabl e Social History Tobacco Use Types Packs/Day Years Used Date Smoking Tobacco: Never Assessed Comments Unknown Sex and Gender Information Value Date Recorded Sex Assigned at Not on file Legal Sex Female 7:52 PM EDT Gender Identity Not on file Sexual Orientation Not on file Plan of Treatment Health Maintenance Due Date Last Done Comments [facility]-Depression Screening 1960 [facility]-Infant/Child/Adol SDOH Screenings 1960 [facility]- SDOH Screenings 1980 [facility]-Adult SDOH Screenings 1980 [facility]-DTaP,Tdap,and Td Vaccine s (1 - Tdap) 1981 [facility]-Pap Smear 1983 [facility]-Cervical Cancer Screening 1992 [facility]-HPV/Cotest 1992 CT Colonography 2007 Colonoscopy 2007 FIT-DNA 2007 FIT 2007 FOBT 2007 Sigmoidoscopy 2007 [facility]-Colorectal Cancer Screening 2007 [facility]-Pneumococcal Vaccine: 50 + Years (2 of 2 - PCV) 2012 09/09/2009 [facility]-Zoster Vaccines (1 of 2) 2012 [id number] Vaccine ( - season) 2024 [facility]-Influenza Vaccine (#1) 06/08/202507/19, 09/09/2009 [facility]-RSV Vaccine: 60+ Years o r (1 - 1-dose 75+ series) 2037 HPV Vaccines Aged Out No longer eligi ble based on patient's age to complete this topic [facility]-HIB Vaccines Aged Out No longer e ligible based on patient's age to complete this topic [facility]-Hepatitis A Vaccines Aged Out No longer eligible based on patient's age to complete this topic [facility]-IPV Vaccines Aged Out No longer e ligible based on patient's age to complete this topic [facility]-Rotavirus Vaccines Aged Out No lo nger eligible based on patient's age to complete this topic Insurance [employer] MED[id number]
--- OUTSIDE RECORDS SUMMARY | 2025-04-17 16:17 | XMS_ITS | Data Portability ---
Author Organization [facility] Address [address] [place] [address] Care Team Providers Care Mold Car Pusher Name Role Phone ANEUDY KRISHNAN Referring Provider [phone] BINH HOOPER Referring Provider [phone] REE HARRIS Referring Provider Unavailable Electrician Wiring [phone] Assessment Encounter Date Assessment Date Assessment LastModified by Organization Details LastModified Time 11/13/2022 11/13/2022 NTG 0.4 mg SL given at 1619 45 mins spent one-on-one with pt nguttman Not available 11/13/2022 19:02:16 Plan of Treatment Reminders Order Date Submit Date Provider Last Modified By Organization Details Last Modified Time Details Appointments None recorded. Lab glucose, fingerstic k, blood [address] , [place], [address], 3 19:02:18 rapid SARS CoV + SARS CoV 2 Ag, QL IA, respirator y specimen [address] , [place], [address], 3 19:02:18 urinalysis , dipstick [address] , [place], [address], 3 18:19:28 microalbum in/creatin ine, mass ratio, urine 2022 023 [facility], [address] [place] [address] , [place], [address], 3 18:19:28 rapid flu (A+B) 2021 022 [facility], [address] [place] [address] , [place], [address], 2 14:19:33 rapid SARS CoV + SARS CoV 2 Ag, QL IA, respirator y specimen 2021 022 [facility], [address] [place] [address] , [place], [address], 2 14:19:33 rapid flu (A+B) 2021 022 [facility], [address] [place] [address] , [place], [address], 2 15:01:08 rapid SARS CoV + SARS CoV 2 Ag, QL IA, respirator y specimen 2021 022 [facility], [address] [place] [address] , [place], [address], 2 15:01:08 BMP, serum or plasma 2021 DIANELYS [facility], [address], [facility], [place], [address], 2 09:11:37 ESR (erythrocy te sedimentat ion rate), blood 2021 DIANELYS [facility], [address], [address], [place], [address], 09:11:38 CBC w/ auto diff 2021 DIANELYS [facility], [address], [address], [place], [address], 09:11:36 magnesium, serum or plasma 2021 DIANELYS [facility], [address], [address], [place], [address], 09:11:38 TSH, ultra-sens itive, serum 2021 DIANELYS [facility], [address], [address], [place], [address], 09:11:37 C reactive protein, QN, serum or plasma 2021 DIANELYS [facility], [address], [place] [address], [place], [address], 09:11:39 Referral physical therapist referral 2022 023 y[facility], [address] [place] [address], [address], 3 14:26:34 Procedures None recorded. Surgeries None recorded. Imaging None recorded. Medication Orders tizanidine 4 mg tablet [address], [address], 3 16:33:15 prednisone 20 mg tablet [address]22 [address], [address], 3 16:33:15 sumatripta n 100 mg tablet 2022 [address], [address], 3 16:33:15 Tamiflu 75 mg capsule [address], [address], 3 14:04:35 cephalexin 500 mg capsule [address], [address], 3 14:04:11 meclizine 12.5 mg tablet 2021 [address], [address], 2 11:24:52 Patient TargetsNo targets recorded. Patient Instructions Encounter Date Encounter Id Patient Instructions Last Modified By Organization Details Last Modified Time 07/07/2022 [id number] rest over the weekend and stay well hydrated. food only as tolerated. will see if med helps with dizziness and nausea - warned of drowsiness. will talk to her when the labs are back. seek emergent care if her symptoms acutely worsen, or are concerning - eg. one-sided weakness/numbness , vision loss, etc nguttman Not available 07/07/2022 11:26:22 07/26/2022 [id number] body mass index: care instructions tgrosser Not available 07/26/2022 15:01:08 learning about healthy weight tgrosser Not available 07/26/2022 15:01:08 08/15/2022 [id number] Rest and fluids OTC's to use reviewed. Discussed diagnosis of viral infection and what to expect Will call or RTC if no improvement in 3-4 days, or if symptoms worsen nguttman Not available 08/15/2022 15:42:42 Reviewed new medication(s) in detail, including why prescribed, what to expect and when, and potential side effects. Pt instructed to call or RTC with any questions or concerns nguttman Not available 08/15/2022 15:42:47 10/26/2022 [id number] warned that taking steroids will probably raise her blood sugar. close f/u with Dr Cunningham. if her symptoms worsen at any time, joe if she has perineal numbness, bowel/bladder incontinence, either call me or go to the ER nguttman Not available 10/26/2022 14:42:55 11/13/2022 [id number] her BS is ok. he r BP was high at presentation, but responded to 1 - SL 0.4 mg SL NTG. but pt still not feeling well and wants to go to the ER. her daughter is here and will take her nguttman Not available 11/13/2022 19:01:44 Reason for Referral Physical Therapist Referral for Acute low back pain Referring Physician: Yecenia Ruiz, Family Medicine, Encounter Date: 10/26/2022 Results Created Date Observation Date Name Description Value Unit Range Abnormal Flag Note LastModifiedBy Organization Detail LastModifiedTime 07/07/2007/08/2022 CBC WITH DIFFE RENTI AL/PL ATELE T WBC 5.3 x10e3 /uL 3.4-10 .8 Not Available [facility] ([facility]) [address] [place], [address], 07/08/2022 09:11:36 07/07/20 22 07/08/2022 CBC WITH DIFFE RENTI AL/PL ATELE T RBC 4.68 x10e6 /uL 3.77-5 .28 Not Available [facility] ([facility]) [address] [place], [address], 07/08/2022 09:11:36 07/07/20 22 07/08/2022 CBC WITH DIFFE RENTI AL/PL ATELE T hemoglobin 13.3 g/dL 11.1-1 5.9 Not Available [facility] ([facility]) [address] [place], [address], 07/08/2022 09:11:36 07/07/20 22 07/08/2022 CBC WITH DIFFE RENTI AL/PL ATELE T hematocrit 40.6 % 34.0-4 6.6 Not Available [facility] ([facility]) [address] [facility], [place], [address], 07/08/2022 09:11:36 07/07/20 22 07/08/2022 CBC WITH DIFFE RENTI AL/PL ATELE T MCV 87 fL 79-97 Not Available [facility] ([facility]) [address] [facility], [place], [address], 07/08/2022 09:11:36 07/07/20 22 07/08/2022 CBC WITH DIFFE RENTI AL/PL ATELE T MCH 28.4 pg 26.6-3 3.0 Not Available [facility] ([facility]) [address] [facility], [place], [address], 07/08/2022 09:11:36 07/07/20 22 07/08/2022 CBC WITH DIFFE RENTI AL/PL ATELE T MCHC 32.8 g/dL 31.5-3 5.7 Not Available [facility] ([facility]) [address] [place], [address], 07/08/2022 09:11:36 07/07/20 22 07/08/2022 CBC WITH DIFFE RENTI AL/PL ATELE T RDW 13.2 % 11.7-1 5.4 Not Available [facility] ([facility]) [address] [place], [address], 07/08/2022 09:11:36 07/07/20 22 07/08/2022 CBC WITH DIFFE RENTI AL/PL ATELE T platelets 156 x10e3 /uL 150-45 0 Not Available [facility] ([facility]) [address] [place], [address], 07/08/2022 09:11:36 07/07/20 22 07/08/2022 CBC WITH DIFFE RENTI AL/PL ATELE T neutrophils 47 % not estab. Not Available [facility] ([facility]) [address] [facility], [place], [address], 07/08/2022 09:11:36 07/07/20 22 07/08/2022 CBC WITH DIFFE RENTI AL/PL ATELE T lymphs 41 % not estab. Not Available [facility] ([facility]) [address] [facility], [place], [address], 07/08/2022 09:11:36 07/07/20 22 07/08/2022 CBC WITH DIFFE RENTI AL/PL ATELE T monocytes 9 % not estab. Not Available [facility] ([facility]) [address] [facility], [place], [address], 07/08/2022 09:11:36 07/07/20 22 07/08/2022 CBC WITH DIFFE RENTI AL/PL ATELE T eos 1 % not estab. Not Available [facility] ([facility]) [address] [facility], [place], [address], 07/08/2022 09:11:36 07/07/20 22 07/08/2022 CBC WITH DIFFE RENTI AL/PL ATELE T basos 1 % not estab. Not Available [facility] ([facility]) [address] [facility], [place], [address], 07/08/2022 09:11:36 07/07/20 22 07/08/2022 CBC WITH DIFFE RENTI AL/PL ATELE T immature cells ENROLLMENT COORDINATOR Not Available [facility] ([facility]) [address] [facility], [place], [address], 07/08/2022 09:11:36 07/07/20 22 07/08/2022 CBC WITH DIFFE RENTI AL/PL ATELE T neutrophils (absolute) 2.6 x10e3 /uL 1.4-7. 0 Not Available [facility] ([facility]) [address] [facility], [place], [address], 07/08/2022 09:11:36 07/07/20 22 07/08/2022 CBC WITH DIFFE RENTI AL/PL ATELE T lymphs (absolute) 2.2 x10e3 /uL 0.7-3. 1 Not Available [facility] ([facility]) [address] [facility], [place], [address], 07/08/2022 09:11:36 07/07/20 22 07/08/2022 CBC WITH DIFFE RENTI AL/PL ATELE T monocytes(ab solute) 0.5 x10e3 /uL 0.1-0. 9 Not Available [facility] ([facility]) [address] [facility], [place], [address], 07/08/2022 09:11:36 07/07/20 22 07/08/2022 CBC WITH DIFFE RENTI AL/PL ATELE T eos (absolute) 0.1 x10e3 /uL 0.0-0. 4 Not Available [facility] ([facility]) [address] [facility], [place], [address], 07/08/2022 09:11:36 07/07/20 22 07/08/2022 CBC WITH DIFFE RENTI AL/PL ATELE T baso (absolute) 0.0 x10e3 /uL 0.0-0. 2 Not Available [facility] ([facility]) [address] [facility], [place], [address], 07/08/2022 09:11:36 07/07/20 22 07/08/2022 CBC WITH DIFFE RENTI AL/PL ATELE T immature granulocytes 1 % not estab. Not Available [facility] ([facility]) [address] [facility], [place], [address], 07/08/2022 09:11:36 07/07/20 22 07/08/2022 CBC WITH DIFFE RENTI AL/PL ATELE T immature grans (abs) 0.1 x10e3 /uL 0.0-0. 1 Not Available [facility] ([facility]) [address] [facility], [place], [address], 07/08/2022 09:11:36 07/07/20 22 07/08/2022 CBC WITH DIFFE RENTI AL/PL ATELE T NRBC ENROLLMENT COORDINATOR Not Available [facility] ([facility]) [address] [facility], [place], [address], 07/08/2022 09:11:36 07/07/20 22 07/08/2022 CBC WITH DIFFE RENTI AL/PL ATELE T hematology comments: ENROLLMENT COORDINATOR Not Available [facility] ([facility]) [address] [facility], [place], [address], 07/08/2022 09:11:36 07/07/20 22 07/08/2022 BASIC METAB OLIC PANEL (8) glucose 141 mg/dL 70-99 above high normal Ple ase note refer ence inter maxine cheney e Not Available [facility] ([facility]) [address] [facility], [place], [address], 07/08/2022 09:11:36 07/07/20 22 07/08/2022 BASIC METAB OLIC PANEL (8) BUN 15 mg/dL 8-27 Not Available [facility] ([facility]) [address] [facility], [place], [address], 07/08/2022 09:11:36 07/07/20 22 07/08/2022 BASIC METAB OLIC PANEL (8) creatinine 0.66 mg/dL 0.57-1 .00 Not Available [facility] ([facility]) [address] [facility], [place], [address], 07/08/2022 09:11:36 07/07/20 22 07/08/2022 BASIC METAB OLIC PANEL (8) eGFR 100 mL/mi n/1.7 3 >59 Not Available [facility] ([facility]) [address] [facility] [place], [address], 07/08/2022 09:11:36 07/07/20 22 07/08/2022 BASIC METAB OLIC PANEL (8) BUN/creatini ne ratio 23 12-28 Not Available [facility] ([facility]) [address] [facility] [place], [address], 07/08/2022 09:11:36 07/07/20 22 07/08/2022 BASIC METAB OLIC PANEL (8) sodium 143 mmol/ L 134-14 4 Not Available [facility] ([facility]) [address] [facility] [place], [address], 07/08/2022 09:11:36 07/07/20 22 07/08/2022 BASIC METAB OLIC PANEL (8) potassium 4.2 mmol/ L 3.5-5. 2 Not Available [facility] ([facility]) [address] [facility] [place], [address], 07/08/2022 09:11:36 07/07/20 22 07/08/2022 BASIC METAB OLIC PANEL (8) chloride 103 mmol/ L 96-106 Not Available [facility] ([facility]) [address] [place], [address], 07/08/2022 09:11:36 07/07/20 22 07/08/2022 BASIC METAB OLIC PANEL (8) carbon dioxide, total 24 mmol/ L 20-29 Not Available [facility] ([facility]) [address] [place], [address], 07/08/2022 09:11:36 07/07/20 22 07/08/2022 BASIC METAB OLIC PANEL (8) calcium 8.6 mg/dL 8.7-10 .3 below low normal Not Available [facility] ([facility]) [address] [facility] [place], [address], 07/08/2022 09:11:36 07/07/20 22 07/08/2022 TSH RFX ON ABNOR MAL TO FREE T4 TSH 0.016 uIU/m L 0.450- 4.500 below low normal Not Available [facility] ([facility]) [address] [facility] [place], [address], 07/08/2022 09:11:37 07/07/20 22 07/08/2022 TSH RFX ON ABNOR MAL TO FREE T4 T4,free (direct) 2.04 NG/dL 0.82-1 .77 above high normal Not Available [facility] ([facility]) [address] [facility] [place], [address], 07/08/2022 09:11:37 07/07/20 22 07/08/2022 SEDIM ENTAT ION RATE- WESTE RGREN sedimentatio n rate-westerg nader 29 mm/HR 0-40 Not Available [facility] ([facility]) [address] [facility] [place], [address], 07/08/2022 09:11:38 07/07/20 22 07/08/2022 MAGNE SIUM magnesium 1.9 mg/dL 1.6-2. 3 Not Available [facility] ([facility]) [address] [place], [address], 07/08/2022 09:11:38 07/07/20 22 07/08/2022 C-ANGELY CTIVE PROTE IN, QUANT C-reactive protein, quant 4 mg/L 0-10 Not Available [facility] ([facility]) [address] [facility] [place], [address], 07/08/2022 09:11:39 07/26/20 22 07/26/2022 rapid SARS CoV + SARS CoV 2 Ag, QL IA, respi rator y speci men SARS CoV antigen Negati ve Not Available [address] [place], [address], 07/26/2022 14:33:35 07/26/20 22 07/26/2022 rapid flu (A+B) Flu negati ve Not Available [address] , [place], [address], 07/26/2022 14:34:18 07/26/20 22 07/26/2022 rapid flu (A+B) Type Both A & B Not Available [address] , [place], [address], 07/26/2022 14:34:18 08/15/20 22 08/15/2022 rapid SARS CoV + SARS CoV 2 Ag, QL IA, respi rator y speci men SARS CoV antigen Negati ve Not Available [address] , [place], [address], 08/15/2022 13:39:15 08/15/20 22 08/15/2022 rapid flu (A+B) Flu negati ve Not Available [address] , [place], [address], 08/15/2022 13:39:04 10/26/19 23 10/26/2022 micro album in/cr eatin ine, mass ratio , urine Microalbumin 10 Not Available [facility] mirta [address] , [place], [address], 10/26/2022 08:33:54 10/26/19 23 10/26/2022 micro album in/cr eatin ine, mass ratio , urine Creatinine 200 Not Available [facility] [address] , [place], [address], 10/26/2022 08:33:54 10/26/19 23 10/26/2022 micro album in/cr eatin ine, mass ratio , urine Ratio <30 Not Available [address] , [place], [address], 10/26/2022 08:33:54 10/26/19 23 10/26/2022 urina lysis , dipst ick Leukocytes Trace Not Available [address] , [place], [address], 10/26/2022 14:11:33 10/26/19 23 10/26/2022 urina lysis , dipst ick Nitrite negati ve Not Available [address] , [place], [address], 10/26/2022 14:11:33 10/26/19 23 10/26/2022 urina lysis , dipst ick Urobilinogen .2 Not Available [address] , [place], [address], 10/26/2022 14:11:33 10/26/19 23 10/26/2022 urina lysis , dipst ick Protein Negati ve Not Available [address] , [place], [address], 10/26/2022 14:11:33 10/26/19 23 10/26/2022 urina lysis , dipst ick pH 6.5 Not Available [address] , [place], [address], 10/26/2022 14:11:33 10/26/19 23 10/26/2022 urina lysis , dipst ick Blood Negati ve Not Available [address] , [place], [address], 10/26/2022 14:11:33 10/26/19 23 10/26/2022 urina lysis , dipst ick Specific Rice 1.030 Not Available [address] , [place], [address], 10/26/2022 14:11:33 10/26/19 23 10/26/2022 urina lysis , dipst ick Ketone Negati ve Not Available [address] , [place], [address], 10/26/2022 14:11:33 10/26/19 23 10/26/2022 urina lysis , dipst ick Bilirubin Negati ve Not Available [address] , [place], [address], 10/26/2022 14:11:33 10/26/19 23 10/26/2022 urina lysis , dipst ick Glucose Negati ve Not Available [address] , [place], [address], 10/26/2022 14:11:33 10/26/19 23 10/26/2022 urina lysis , dipst ick Appearance Clear Not Available [address] , [place], [address], 10/26/2022 14:11:33 10/26/19 23 10/26/2022 urina lysis , dipst ick Color Yellow Not Available [address] , [place], [address], 10/26/2022 14:11:33 11/13/19 23 11/13/2022 rapid SARS CoV + SARS CoV 2 Ag, QL IA, respi rator y speci men SARS CoV antigen Negati ve Not Available [address] , [place], [address], 11/13/2022 15:53:16 11/13/19 23 11/13/2022 gluco brandy mcclain, blood Blood Glucose: mg/dl 169 Not Available [address] , [place], [address], 11/13/2022 15:53:03 03/20/20 23 03/20/2023 hospi lacey labs A1C 9.3 Not Available [facility] [address] [facility] , [place], [address], 03/20/2023 17:39:50 Result Notes None recorded. Problems Name Problem SNOMED Code Status Onset Date Resolution Date Notes Provider Name and Address Organization Details Recorded Time Gastroes ophageal reflux disease 959098079 Active 2016 REANNA Magaña - [facility] 3 14:33:08 Type 2 diabetes mellitus 36264458 Active 2016 follows with REANNA Espinoza - [facility] 3 14:33:08 Non-alco holic fatty liver 147483587 Active 2016 REANNA Magaña - [facility] 3 14:33:08 Allergic conjunct ivitis 477865848 Active 2016 REANNA Magaña - [facility] 3 14:33:08 History of polyp of colon 548136033 Active 2016 mom had colon ca REANNA Magaña - [facility] 3 14:33:08 History of multiple allergie s 209620747 Active 2017 REANNA Magaña - [facility] 3 14:33:08 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 121930250 Active 2017 REANNA Magaña - [facility] 3 14:33:08 Hyperlip idemia 57052037 Completed 201509/05/2021 Yecenia Ruiz MD [address], [place], [address], [place] - [facility] 1 10:10:45 Essentia l hyperten raquel 24479761 Active 2015 Gisselle Jesica null, [place] - [facility] 3 14:33:08 Malignan t tumor of thyroid gland 043211653 Active 2015 Gisselle Mooney null[place] - [facility] 3 14:33:08 Irritabl e bowel syndrome 32765415 Active 2015 Gisselle Mooney [place] - [facility] 3 14:33:07 Hiatal hernia 77685879 Active 2015 Gisselle Anamitt [place] - [facility] 3 14:33:08 Fibromya lgia 484534378 Active 2015 Gisselle Mooney [place] - [facility] 3 14:33:08 Arthriti s 7299248 Active 2015 Gisselle Perezmitt null[place] - [facility] 3 14:33:08 Degenera tion of interver tebral disc 86995658 Active 2015 Gisselle Mooney [place] - [facility] 3 14:33:08 Osteopor osis 45724824 Completed 201507/20/2017 Removal Reason: she doesn't have it Yecenia Ruiz MD [address], [place], [address], [place] - [facility] 7 16:13:45 Chest pain 05934904 Completed 10/04/2020 Yecenia Ruiz MD [address], [place], [address], [place] [facility] 2 11:57:20 Urinary tract infectio us disease 45883631 Completed 10/04/2020 Yecenia Ruiz MD [address], [place], [address], [place] [facility] 0 10:33:31 Cardiac catheter ization Completed 03/04/2020 Yecenia Ruiz MD [address], [place], [address], [place] [facility] 0 20:37:34 History of cardiac catheter ization 17448599775 100 Active Kee Escobedo null, [place] - [facility] 1 14:13:12 Coronary arterios clerosis 95534940 Active 2019 Gisselle Mooney null[place] - [facility] 3 14:33:08 Mixed hyperlip idemia 227647301 Active 2019 Gisselle Mooney null[place] - [facility] 3 14:33:08 Chest pain 70327278 Completed 12/13/2021 Yecenia Ruiz MD [address], [place], [address], [place] - [facility] 2 11:57:20 Urinary tract infectio us disease 26942727 Active Kee Gregg null, [place] - [facility] 1 14:13:12 Long-ter m drug therapy Active 2016 Giseslle Anacatrachito null, [place] - [facility] 3 14:33:08 Problem Notes None recorded. Procedures Surgical History Date Name Laterality Status Provider Name and Address Organization Details Recorded Time 03/12/20 23 Cardiac Cath completed Yecenia Ruiz MD [address], [place], [address], [place] - [facility] 03/13/2023 20:01:36 11/02/19 21 Cardiac Cath completed Yecenia Ruiz MD [address], [place], [address], [place] - [facility] 11/03/2020 07:59:19 10/25/19 21 Date of Last Mammogram completed Yecenia Ruiz MD [address], [place], [address], [place] - [facility] 10/26/2020 08:10:46 07/20/20 20 Medication Reconcilliation completed Chula Bennett [place] - [facility] 07/20/2020 16:19:40 03/05/20 20 Medication Reconcilliation completed Chula Bennett [place] [facility] 03/05/2020 09:14:11 01/29/20 20 Medication Reconcilliation completed Chula Bennett [place] [facility] 01/29/2020 14:35:52 11/05/19 20 Diastolic B/P less than 80 mm Hg completed Crystal Yasmani [place] - [facility] 11/05/2019 12:08:00 11/05/19 20 Systolic B/P 130-139 mm Hg completed Crystal Yasmani [place] - [facility] 11/05/2019 12:07:56 01/21/20 19 Cardiac Cath completed Yecenia Ruiz MD [address], [place], [address], [place] [facility] 01/21/2019 22:03:20 12/12/19 18 Cardiac Cath completed Yecenia Ruiz MD [address], [place], [address], [place] [facility] 12/16/2017 20:23:19 07/20/20 17 Most Recent Bone Density completed Yecenia Ruiz MD [address], [place], [address], [place] [facility] 10/04/2020 10:41:42 05/30/20 17 gastric sleeve completed Yecenia Ruiz MD [address], [place], [address], [place] [facility] 07/12/2017 09:24:22 05/15/20 17 Most Recent Mammogram completed Yecenia Ruiz MD [address], [place], [address], [place] [facility] 07/12/2017 09:41:28 08/18/20 16 Date of Last Colonoscopy completed Selma Berry, RN [address], [place], [address], [place] - [facility] 08/16/2021 10:07:57 12/10/19 16 thyroidectomy completed Yecenia Ruiz MD [address], [place], [address], [place] - [facility] 08/13/2021 13:28:21 Tubal Ligation completed Tanvi Cardonacell [place] - [facility] 08/04/2016 13:27:49 Hysterectomy completed Tanvi Cardonacell [place] [facility] 08/04/2016 13:27:57 Unlisted procedure rectum completed Tanvi Cardonacell [place] [facility] 08/04/2016 13:28:16 Orthopedic Surgery completed Celia Cardonacell [place] - [facility] 08/04/2016 13:28:42 Bladder irrigation tubing completed Tanvi Hurt [place] [facility] 08/04/2016 13:30:49 Kidney endoscopy completed Tanvi Cardonacell [place] [facility] 08/04/2016 13:31:11 Cholecystectomy, laparoscopic completed Yecenia Ruiz MD [address], [place], [address], [place] [facility] 07/07/2022 10:45:23 tonsillectomy completed Yecenia Ruiz MD [address], [place], [address], [place] [facility] 08/26/2018 11:27:26 Carpal tunnel surgery completed Diana Yan [place] - [facility] 10/11/2018 15:14:54 Imaging Results None recorded. Procedure Notes None recorded. Medical Equipment None Reported. Allergies Allergen ID Allergen Name Allergen Category Reaction Reaction Severity Criticality Documentation Date Start Date Code Code System Note Provider Name and Address Organization Details Recorded Time 095742 pregabali n medicatio n Not available Not available Not available 01/28/20192016 35558 2 RxNorm Crystal Earlywine null, [place] - [facility] 9 14:29:47 716971 rosuvasta tin medicatio n cough Not available Not available 01/28/20192015 56243 2 RxNorm Crystal [place] null, [place] - [facility] 9 14:29:47 974419 pioglitaz one medicatio n Not available Not available Not available 01/28/20192017 19694 RxNorm Crystal Earlywine null, [place] - [facility] 9 14:29:47 321084 codeine medicatio n itching Not available Not available 01/28/20192014 2670 RxNorm Crystal Earlywine null, [place] - [facility] 9 14:29:47 919697 ramires extract food Not available Not available Not available 01/28/20192017 68335 73 RxNorm Crystal Earlywine null, [place] - [facility] 9 14:29:47 43950 Glycine max (substan e) environme nt,food,m edication Not available Not available Not available 07/14/20162011 16586 5007 SNOMED Not Available [facility] 6 10:03:55 61025 green ramires food Not available Not available Not available 07/14/20162011 26435 UNK Not Available [facility] 6 10:03:56 42648 metformin hydrochlo ride medicatio n facial swelling Not available Not available 07/14/20162008 97848 3 RxNorm Not Available [facility] [facility] 6 10:03:56 [id number] Actos medicatio n rash Not available Not available 07/14/20162012 55728 2 RxNorm Not Available Formerly [facility] 6 10:03:56 [id number] Product containin g angiotens in-conver ting enzyme inhibitor (product) medicatio n Not available Not available Not available 07/14/20162010 14456 009 SNOMED Jessica [place], [place] - [facility] 6 10:57:16 Medications Name Sig Start Date Stop Date Status Note LastModified by Organization Details LastModified Time Prescript ion - Prior Authoriza tion Request active Not Available Not Available Not Available losartan 50 mg tablet TAKE 1 TABLET BY MOUTH EVERY DAY active Not Available Not Available No t Available celecoxib 200 mg capsule TAKE (1) CAPSULE TWICE DAILY. active Not Available Not Available No t Available cyclobenz aprine 10 mg tablet take 1 tablet (10 mg) by oral route 3 times per day prn for 30 days 12/10 completed Not Available Not Available Not Available amoxicill in 500 mg capsule Take 1 capsule twice a day by oral route for 10 days. 03/05 completed Not Available Not Available Not Available furosemid e 40 mg tablet take 1 tablet (40 mg) by oral route once daily for 30 days 05/02 completed furosemi de 40 mg oral tablet;R ecorded Status: Recorded on: 10/10/19 11 1:25PM;D iscontin ued Status: Disconti nued on: 05/02/20 11 3:07PM;U ser: [email or web address]; Est. Completi on: 11/09/19 11;Print ed: 10/10/19 11 Not Available Not Available Not Available Topamax 200 mg tablet 3/4 tablet in monring and 1 at night 11/05 completed Topamax 200 mg oral tablet;R ecorded Status: Recorded on: 05/31/20 12 2:06PM;D iscontin ued Status: Disconti nued on: 11/05/19 14 11:42AM; User: andrusa Not Available Not Available Not Available methocarb rainer 500 mg tablet TAKE ONE TABLET BY MOUTH FOUR TIMES A DAY 08/26 completed Not Available Not Available Not Available Levsin 0.125 mg tablet Take 1 tablet every 4 hours by oral route as needed. 03/05 completed Not Available Not Available Not Available Novolin 70/30 U-100 Insulin 100 unit/mL subcutane ous suspensio n 20 units SQ twice daily 07/21 completed Novolin 70/30 100 unit/mL (70-30) subcutan eous suspensi on;Recor ded Status: Recorded on: 05/27/20 10 9:48AM;D iscontin ued Status: Disconti nued on: 07/21/20 10 10:33AM; User: avril; Est. Completi on: 08/25/20 10;Indic ation: Type 2 Diabetes Mellitus - (03.2500 00);Prin suman: 05/27/20 10 Not Available Not Available Not Available carvedilo l 25 mg tablet TAKE 1/2 TABLET (12.5MG) ORAL ROUTE TWICE A DAY WITH FOOD 07/12 completed Not Available Not Available Not Available nystatin 100,000 unit/mL oral suspensio n take 4 millilit ers (400,000 unit) by oral route 4 times per day for 10 days 12/05 completed nystatin 100,000 unit/mL oral suspensi on;Recor ded Status: Recorded on: 11/20/19 12 5:57PM;D iscontin ued Status: Disconti nued on: 12/05/19 12 4:07PM;U ser: calvom;E st. Completi on: 11/30/19 12;Print ed: 11/20/19 12 Not Available Not Available Not Available carvedilo l 6.25 mg tablet Take 1 tablet twice a day by oral route. 08/17 completed Cardiolo gy Not Available Not Available Not Available atorvasta tin 20 mg tablet take 1 tablet (20 mg) by oral route once daily 05/30 completed atorvast atin 20 mg oral tablet;R ecorded Status: Recorded on: 09/21/20 15 2:49PM;D iscontin ued Status: Disconti nued on: 05/30/20 16 1:01PM;U ser: stearsb Not Available Not Available Not Available carvedilo l 12.5 mg tablet Take 0.5 tablets twice a day by oral route as directed for 90 days. 01/03 completed Not Available Not Available Not Available clindamyc in HCl 300 mg capsule take 1 capsule by oral route 4 times a day for 7 days 04/12 completed clindamy kyrie HCl 300 mg oral capsule; Prescrib e Status: Prescrib ed on: 03/17/20 16 12:13PM; Disconti nued Status: Disconti nued on: 04/12/20 16 8:42AM;U ser: shannan ;Est. Completi on: 03/24/20 16;Pharm acyVerif ied: 03/17/20 16 12:13PM Not Available Not Available Not Available divalproe x 250 mg tablet,de layed release TAKE ONE (1) TABLET BY MOUTH TWICE DAILY FOR ONE WEEK THEN TAKE TWO (2) TABLETS BY MOUTH TWICE DAILY THEREAFT ER active Not Available Not Available No t Available cetirizin e 10 mg tablet TAKE ONE (1) TABLET BY MOUTH ONCE A DAY active Not Available Not Available No t Available Humulin R U-500 (Concentr ated) Insulin 500 unit/mL subcutane ous soln inject by subcutan eous route as per insulin protocol for 30 days 07/12 completed Not Available Not Available Not Available azithromy kyrie 250 mg tablet take 2 tablets (500 mg) by oral route once daily for 1 day then 1 tablet (250 mg) by oral route once daily for 4 days 12/26 completed azithrom ycin 250 mg oral tablet;R ecorded Status: Recorded on: 10/26/19 16 2:46PM;D iscontin ued Status: Disconti nued on: 12/27/19 16 9:55AM;U ser: corrina huynh;Est. Completi on: 10/31/19 16;Print ed: 10/26/19 16 Not Available Not Available Not Available aspirin 325 mg tablet take 1 tablet (325 mg) by oral route once daily 01/09 completed aspirin 325 mg oral tablet;R ecorded Status: Recorded on: 08/22/20 11 11:11AM; User: isela Not Available Not Available Not Available glyburide 5 mg tablet Take 2 a.m. and 2 p.m. 05/27 completed glyburid e 5 mg oral tablet;R ecorded Status: Recorded on: 11/30/19 10 5:54PM;D iscontin ued Status: Disconti nued on: 05/27/20 10 9:27AM;U ser: Trenton Nicholson on: 03/30/20 10;Indic ation: Type 2 Diabetes Mellitus - (03 00);Prin suman: 11/30/19 10 Not Available Not Available Not Available pravastat in 40 mg tablet Take 1 tablet every day by oral route as directed . 01/28 completed Not Available Not Available Not Available ibuprofen 800 mg tablet take 1 tablet (800 mg) by oral route 3 times per day with food for 30 days 04/12 completed ibuprofe n 800 mg oral tablet;R ecorded Status: Recorded on: 04/12/20 16 9:06AM;D iscontin ued Status: Disconti nued on: 04/12/20 16 9:14AM;U ser: corrina genaoEstCorinna Nicholson on: 07/11/20 16 Not Available Not Available Not Available ofloxacin 0.3 % eye drops 03/26 completed Not Available Not Available Not Available tizanidin e 4 mg tablet TAKE ONE (1) TABLET(S ) EVERY SIX (6) HOURS BY ORAL ROUTE. active Not Available Not Available No t Available fluconazo le 150 mg tablet take 1 tablet (150 mg) by oral route 10/11 completed Not Available Not Available Not Available Vicodin 5 mg-500 mg tablet 12/05 completed Vicodin 5-500 mg oral tablet;R ecorded Status: Recorded on: 11/20/19 12 5:38PM;D iscontin ued Status: Disconti nued on: 12/05/19 12 4:07PM;U ser: andrusa Not Available Not Available Not Available sumatript an 100 mg tablet take 1 tab at onset of CURRY, can repeat in 2 hrs prn. no more than 2 tabs in 24 hrs active Not Available Not Available No t Available hydrocodo ne 5 mg-acetam inophen 325 mg tablet 01/09 completed Not Available Not Available Not Available fluconazo le 200 mg tablet 09/06 completed Not Available Not Available Not Available meloxicam 15 mg tablet TAKE ONE (1) TABLET BY MOUTH EVERY DAY WITH FOOD NEEDED active Not Available Not Available No t Available sucralfat e 1 gram tablet 1 qid 10/11 completed GI Not Available Not Available Not Available lisinopri l 20 mg tablet take 1 tablet (20 mg) by oral route once daily 09/21 completed lisinopr il 20 mg oral tablet;R ecorded Status: Recorded on: 12/29/19 15 4:24PM;D iscontin ued Status: Disconti nued on: 09/21/20 15 2:49PM;U ser: stearsb Not Available Not Available Not Available ondansetr on HCl 4 mg tablet 1 bid prn 10/11 completed Not Available Not Available Not Available prednison e 20 mg tablet Take 1 tablet twice a day by oral route as directed for 5 days. active Not Available Not Available No t Available isosorbid e mononitra te ER 30 mg tablet,ex tended release 24 hr TAKE 1 TABLET BY MOUTH EACH MORNING active prn Not Available Not Available No t Available hydroxyzi ne pamoate 50 mg capsule take 1 capsule by oral route once a day (at bedtime) for 30 days 07/30 completed hydroxyz ine pamoate 50 mg oral capsule; comment: unable to afford;P rescribe Status: Prescrib ed on: 11/05/19 14 11:42AM; Disconti nued Status: Disconti nued on: 07/30/20 14 8:51AM;U ser: keefk;Es t. Completi on: 02/04/20 14;Pharm acyVerif ied: 11/05/19 14 11:42AM Not Available Not Available Not Available Tylenol Arthritis Pain 650 mg tablet,ex tended release Take 1 tablet every 6-8 hours by oral route. 07/18 completed Not Available Not Available Not Available oxycodone 5 mg/5 mL oral solution 07/12 completed Not Available Not Available Not Available meclizine 12.5 mg tablet ONE (1) TO TWO (2) TABS BY MOUTH THREE (3) TIMES DAILY NEEDED DIZZINES S active Not Available Not Available No t Available hydroxyzi ne HCl 50 mg tablet take 1 tablet (50 mg) by oral route 4-6 times prn 05/02 completed hydroxyz ine HCl 50 mg oral tablet;R ecorded Status: Recorded on: 12/09/19 11 12:26PM; Disconti nued Status: Disconti nued on: 05/02/20 11 3:07PM;U ser: vesth;Es t. Completi on: 01/08/20 11 Not Available Not Available Not Available clopidogr el 75 mg tablet take 1 tablet (75 mg) by oral route once daily 04/05 completed cardiolo gy Not Available Not Available Not Available fexofenad ine 180 mg tablet TAKE 1 TABLET DAILY 10/11 completed Not Available Not Available Not Available amlodipin e 5 mg tablet 1 qd 07/12 completed Not Available Not Available Not Available ciproflox acin 500 mg tablet take 1 tablet (500 mg) by oral route every 12 hours for 7 days 09/06 completed Not Available Not Available Not Available sulfameth oxazole 800 mg-trimet hoprim 160 mg tablet take 1 tablet (800-160 mg) by oral route 2 times a day for 10 days 03/26 completed Not Available Not Available Not Available aspirin 81 mg tablet,de layed release Take 1 tablet every day by oral route as directed . 07/07 completed Not Available Not Available Not Available tramadol 50 mg tablet take 1 tablet by oral route every 6 hours for 30 days 07/12 completed Not Available Not Available Not Available sodium chloride 0.65 % nasal drops Take 1 drop 3 times a day by nasal route as needed. 03/05 completed Not Available Not Available Not Available simvastat in 40 mg tablet take 1 tablet (40 mg) by oral route once daily in the evening for 30 days 10/31 completed simvasta tin 40 mg oral tablet;R ecorded Status: Recorded on: 10/10/19 11 1:25PM;D iscontin ued Status: Disconti nued on: 10/31/19 11 4:58PM;U ser: avril; Est. Completi on: 01/09/20 11;Print ed: 10/10/19 11 Not Available Not Available Not Available carvedilo l 3.125 mg tablet take 1 tablet (3.125 mg) by oral route 2 times per day with food for 30 days 04/05 completed Not Available Not Available Not Available levothyro xine 100 mcg tablet 08/04 completed Not Available Not Available Not Available oxycodone -acetamin ophen 5 mg-325 mg tablet 08/04 completed Not Available Not Available Not Available isosorbid e mononitra te ER 60 mg tablet,ex tended release 24 hr 1 po hs 04/12 completed Not Available Not Available Not Available ofloxacin 0.3 % ear drops INSTILL 10 DROPS INTO AFFECTED EAR(S) BY OTIC ROUTE BID DAILY 03/26 completed Not Available Not Available Not Available amoxicill in 875 mg tablet TAKE ONE (1) TABLET EVERY 12 HOURS BY ORAL ROUTE FOR 7 DAYS. 12/13 completed Not Available Not Available Not Available citalopra m 20 mg tablet TAKE ONE TABLET BY MOUTH EVERY DAY active Not Available Not Available No t Available famotidin e 20 mg tablet Take 1 tablet twice a day by oral route as directed . 01/28 completed Not Available Not Available Not Available methocarb rainer 750 mg tablet Take 1 tablet 3 times a day by oral route as needed. 07/20 completed Not Available Not Available Not Available dicyclomi ne 20 mg tablet take 1 tablet (20 mg) by oral route 3 times per day for 30 days 07/30 completed dicyclom ine 20 mg oral tablet;c omment: unable to afford;P rescribe Status: Prescrib ed on: 11/05/19 14 11:42AM; Disconti nued Status: Disconti nued on: 07/30/20 14 8:51AM;U ser: keefk;Es t. Completi on: 02/04/20 14;Indic ation: Irritabl e Bowel Syndrome - (09.5641 00);Neto marcosIndia fied: 11/05/19 14 11:42AM Not Available Not Available Not Available hyoscyami ne 0.125 mg disintegr ating tablet 09/06 completed Not Available Not Available Not Available insulin aspart U-100 100 unit/mL subcutane ous solution 08/13 completed Not Available Not Available Not Available cephalexi n 500 mg capsule TAKE ONE (1) CAPSULE BY MOUTH EVERY 12 HOURS 10/26 completed Not Available Not Available Not Available Humulin R Regular U-100 Insulin 100 unit/mL injection solution inject by subcutan eous route as per insulin sliding scale protocol for 30 days 12/28 completed Humulin R 100 unit/mL injectio n solution ;Recorde d Status: Recorded on: 07/30/20 14 9:26AM;D iscontin ued Status: Disconti nued on: 12/29/19 15 4:24PM;U ser: corrina huynh;Est. Completi on: 01/27/20 15;Print ed: 07/30/20 14 Not Available Not Available Not Available erythromy kyrie 5 mg/gram (0.5 %) eye ointment apply a small amount to affected eye 3 times a day for 7 days 10/11 completed Not Available Not Available Not Available oseltamiv ir 75 mg capsule TAKE ONE (1) CAPSULE BY MOUTH TWO (2) TIMES PER DAY FOR FIVE (5) DAYS 10/26 completed Not Available Not Available Not Available Hyzaar 100 mg-25 mg tablet take 1 tablet by oral route once daily for 90 days 05/27 completed Hyzaar 100-25 mg oral tablet;R ecorded Status: Recorded on: 01/29/20 09 10:57AM; Disconti nued Status: Disconti nued on: 05/27/20 10 9:27AM;U ser: bere; Est. Completi on: 01/24/20 10 Not Available Not Available Not Available esomepraz ole magnesium 40 mg capsule,d elayed release TAKE ONE (1) CAPSULE BY MOUTH EVERY DAY active Not Available Not Available No t Available levothyro xine 125 mcg tablet 2 qd 10/11 completed Not Available Not Available Not Available tobramyci n 0.3 % eye drops 08/13 completed Not Available Not Available Not Available glimepiri de 4 mg tablet 4 mg by oral route. active Not Available Not Available No t Available polymyxin B sulfate 10,000 unit-trim ethoprim 1 mg/mL eye drops INSTILL 1 DROP INTO AFFECTED EYE(S) BY OPHTHALM IC ROUTE EVERY 6 HOURS 04/05 completed Not Available Not Available Not Available levothyro xine 150 mcg tablet active Not Available Not Available Not Available losartan 25 mg tablet 1 qd 10/11 completed Not Available Not Available Not Available nystatin- triamcino lone 100,000 unit/g-0. 1 % topical cream apply to the affected area(s) by topical route 2 times per day in the morning and evening for 10 days 12/11 completed nystatin -triamci nolone 100,000- 0.1 unit/g-% topical cream;Re corded Status: Recorded on: 11/20/19 12 5:57PM;D iscontin ued Status: Disconti nued on: 12/12/19 12 9:25AM;U ser: calvom;E st. Completi on: 11/30/19 12;Indic ation: Cutaneou s Candidia sis - ();Prin suman: 11/20/19 12 Not Available Not Available Not Available Elimite 5 % topical cream apply (thoroug hly massage into skin from head to soles of feet) by topical route once leave on for 8-14 hr, then remove by thorough washing for 1 day 10/26 completed Elimite 5 % topical cream;Re corded Status: Recorded on: 09/28/20 15 5:19PM;D iscontin ued Status: Disconti nued on: 10/26/19 16 2:24PM;U ser: houser c;Est. Completi on: 09/29/20 15;Print ed: 09/28/20 15 Not Available Not Available Not Available nitroglyc antonia 0.4 mg sublingua l tablet place 1 tablet (0.4 mg) by buccal route at the first sign of an attack; no more than 3 tabs are recommen ded within a 15 minute period. for 3 active Not Available Not Available No t Available gabapenti n 300 mg capsule take 1 capsule (300 mg) by oral route 3 times per day for 30 days 09/06 completed Not Available Not Available Not Available Zofran ODT 8 mg disintegr ating tablet 05/31 completed Zofran ODT 8 mg oral tablet,d isintegr ating;Re corded Status: Recorded on: 02/27/20 12 12:59PM; Disconti nued Status: Disconti nued on: 05/31/20 12 2:06PM;U ser: andrusa Not Available Not Available Not Available aspirin 81 mg chewable tablet CHEW ONE (1) TABLET BY MOUTH EVERY DAY active Not Available Not Available No t Available Tylenol 325 mg tablet Take 1 tablet every 6 hours by oral route. active OTC Not Available Not Available No t Available monteluka st 10 mg tablet TAKE ONE (1) TABLET BY MOUTH EACH EVENING active Not Available Not Available No t Available hydroxyzi ne HCl 25 mg tablet TAKE ONE TABLET BY MOUTH 3 TIMES A DAY NEEDED 08/28 completed Not Available Not Available Not Available levothyro xine 200 mcg tablet Take 1 tablet every day by oral route for 90 days. active Not Available Not Available No t Available aspirin 81 mg tablet Take 1 tablet every day by oral route. 01/28 completed 01/2020 on hold Not Available Not Available Not Available pravastat in 20 mg tablet take 1 tablet (20 mg) by oral route once daily 10/11 completed Not Available Not Available Not Available mupirocin 2 % topical ointment APPLY A SMALL AMOUNT TO THE AFFECTED AREA BY TOPICAL ROUTE 3 TIMES PER DAY UNTIL CLEAR 01/29 completed ophtha Not Available Not Available Not Available furosemid e 20 mg tablet TAKE 1 TABLET DAILY 07/12 completed Not Available Not Available Not Available gabapenti n 100 mg capsule take 1 capsules (300 mg) by oral route 3 times per day 07/30 completed gabapent in 100 mg oral capsule; comment: dosage change;R ecorded Status: Recorded on: 01/03/20 14 10:14AM; Disconti nued Status: Disconti nued on: 07/30/20 14 8:51AM;U ser: voylesj Not Available Not Available Not Available metoprolo l succinate ER 25 mg tablet,ex tended release 24 hr TAKE 1 TABLET BY MOUTH EVERY DAY active Not Available Not Available No t Available albuterol 90 mcg/actua tion aerosol inhaler active Not Available Not Available Not Available ergocalci ferol (vitamin D2) 1,250 mcg (50,000 unit) capsule active Not Available Not Available Not Available Zaditor 0.025 % (0.035 %) eye drops INSTILL ONE (1) DROP INTO BOTH EYES TWICE A DAY NEEDED active Not Available Not Available No t Available azelastin e 137 mcg (0.1 %) nasal spray TWO (2) SPRAY INTO BOTH NOSTRILS TWICE A DAY NEEDED active Not Available Not Available No t Available epinephri ne 0.3 mg/0.3 mL injection , auto-inje ctor Take 0.3 mg by injectio n route. active ALLERGIS T Not Available Not Available Not Available ibuprofen 600 mg tablet take 1 tablet (600 mg) by oral route 3 times per day with food for 10 days 12/11 completed ibuprofe n 600 mg oral tablet;R ecorded Status: Recorded on: 12/05/19 12 4:48PM;D iscontin ued Status: Disconti nued on: 12/12/19 12 9:19AM;U ser: channing;Tonya st. Completi on: 12/15/19 12;Print ed: 12/05/19 12 Not Available Not Available Not Available Tegretol 200 mg tablet take 1 tablet (200 mg) by oral route every 12 hours for 30 days 11/05 completed Tegretol 200 mg oral tablet;R ecorded Status: Recorded on: 11/13/19 13 5:12PM;D iscontin ued Status: Disconti nued on: 11/05/19 14 11:42AM; User: darlin Nicholson on: 02/12/20 13;Print ed: 11/13/19 13 Not Available Not Available Not Available methylpre dnisolone 4 mg tablets in a dose pack take as directed for 7 days 11/05 completed Not Available Not Available Not Available albuterol sulfate HFA 90 mcg/actua tion aerosol inhaler INHALE TWO (2) PUFF USING INHALER EVERY FOUR TO SIX HOURS NEEDED FOR COUGH CHEST TIGHTNES S WHEEZING . active Not Available Not Available No t Available ketorolac 60 mg/2 mL intramusc ular solution Inject 2 mL as needed by intramus cular route. 03/28 completed Not Available Not Available Not Available cefdinir 300 mg capsule TAKE 1 CAPSULE BY MOUTH EVERY 12 HOURS FOR 10 DAYS 08/15 completed Not Available Not Available Not Available fluticaso ne propionat e 50 mcg/actua tion nasal spray,rose marie pension [place] every day by nasal route as directed for 30 days. 08/28 completed Not Available Not Available Not Available cholecalc iferol (vitamin D3) 125 mcg (5,000 unit) capsule TAKE (1) CAPSULE DAILY. 04/12 completed Not Available Not Available Not Available atenolol 50 mg tablet take 1 tablet (50 mg) by oral route 2 times per day for 30 days 05/27 completed atenolol 50 mg oral tablet;R ecorded Status: Recorded on: 11/30/19 10 5:54PM;D iscontin ued Status: Disconti nued on: 05/27/20 10 9:48AM;U ser: [email or web address];Ese t. Completi on: 03/30/20 10;Print ed: 11/30/19 10 Not Available Not Available Not Available Augmentin 500 mg-125 mg tablet take 1 tablet by oral route every 12 hours for 10 days 12/28 completed Augmenti n 500-125 mg oral tablet;R ecorded Status: Recorded on: 10/15/19 15 1:50PM;D iscontin ued Status: Disconti nued on: 12/29/19 15 4:14PM;U ser: corrina genaoEst. Completi on: 10/25/19 15;Print ed: 10/15/19 15 Not Available Not Available Not Available loratadin e 10 mg tablet Take 10 mg by oral route. 08/16 completed Not Available Not Available Not Available amoxicill in 875 mg-potass ium clavulana te 125 mg tablet Take 1 tablet every 12 hours by oral route as directed for 10 days. 01/24 completed Not Available Not Available Not Available Topamax 100 mg tablet 1BID - TAKE ONE TABLET BY MOUTH TWICE DAILY 12/11 completed Topamax 100 mg oral tablet;R ecorded Status: Recorded on: 06/06/20 11 9:20AM;D iscontin ued Status: Disconti nued on: 12/12/19 12 9:22AM;U ser: elmo;Tonya st. Completi on: 09/04/20 11;Print ed: 06/06/20 11 Not Available Not Available Not Available Actos 30 mg tablet 1QD - TAKE ONE TABLET BY MOUTH EVERY DAY 08/22 completed Actos 30 mg oral tablet;R ecorded Status: Recorded on: 06/05/20 11 3:08PM;D iscontin ued Status: Disconti nued on: 08/22/20 11 11:13AM; User: abeba EstCorinna Completi on: 09/03/20 11 Not Available Not Available Not Available esomepraz ole magnesium 20 mg capsule,d elayed release 11/05 completed Not Available Not Available Not Available oxycodone 5 mg tablet Take 1 tablet every 8 hours by oral route as needed for 10 days. 03/05 completed Not Available Not Available Not Available Vitamin C 500 mg capsule,e xtended release Take 1 capsule every day by oral route. 07/12 completed Not Available Not Available Not Available enoxapari n 40 mg/0.4 mL subcutane ous syringe 07/12 completed Not Available Not Available Not Available Zetia 10 mg tablet take 1 tablet (10 mg) by oral route once daily for 30 days 11/05 completed Zetia 10 mg oral tablet;R ecorded Status: Recorded on: 11/13/19 13 5:12PM;D iscontin ued Status: Disconti nued on: 11/05/19 14 10:50AM; User: darlin EstCorinna Completi on: 02/12/20 13;Print ed: 11/13/19 13 Not Available Not Available Not Available Novolog FlexPen U-100 Insulin aspart 100 unit/mL (3 mL) subcutane ous USE DIRECTED - AVERAGE 30 UNITS DAILY. 08/16 completed ENDO Not Available Not Available Not Available Restasis 0.05 % eye drops in a dropperet te Instill 1 drop twice a day by ophthalm ic route as directed for 30 days. active OPHTHA Not Available Not Available No t Available rosuvasta tin 5 mg tablet Take 1 tablet every day by oral route as directed for 90 days. 03/04 completed ELEVATED LFT'S Not Available Not Available Not Available Crestor 40 mg tablet 1QD - TAKE ONE TABLET BY MOUTH EVERY DAY 12/05 completed Crestor 40 mg oral tablet;R ecorded Status: Recorded on: 06/05/20 11 3:08PM;D iscontin ued Status: Disconti nued on: 12/05/19 12 4:07PM;U ser: avril; Est. Completi on: 09/03/20 11 Not Available Not Available Not Available lancing device with lancets kit active Not Available Not Available Not Available Cymbalta 60 mg capsule,d elayed release take 1 capsule by oral route 2 times a day for 30 days 07/30 completed Cymbalta 60 mg oral capsule, delayed release( /EC);c omment: unable to afford;P rescribe Status: Prescrib ed on: 11/05/19 14 11:42AM; Disconti nued Status: Disconti nued on: 07/30/20 14 8:51AM;U ser: sheila;Ese t. Completi on: 02/04/20 14;Pharm acyVerif ied: 11/05/19 14 11:42AM Not Available Not Available Not Available Flovent HFA 44 mcg/actua tion aerosol inhaler INHALE ONE (1) PUFF TWICE DAILY active Not Available Not Available No t Available Lyrica 75 mg capsule Take 1 capsule twice a day by oral route. 10/10 completed Not Available Not Available Not Available calcium 1200 MG BY MOUTH TWICE DAILY 08/13 completed OTC Not Available Not Available Not Available Fish Oil 1500 mg 1 @ breakfas t & 1 @ bedtime 08/04 completed Fish Oil oral;Rec orded Status: Recorded on: 07/30/20 14 8:55AM;U ser: [email or web address] Not Available Not Available Not Available diazepam 1 tid 08/22 completed diazepam 2mg;Jose rded Status: Recorded on: 04/15/20 10 9:13AM;D iscontin ued Status: Disconti nued on: 08/22/20 11 11:13AM; User: darvin [email or web address];Est. Completi on: 11/11/19 11;Indic ation: - (-5) Not Available Not Available Not Available promethaz ine 12/05 completed prometha zine Oral;Rec orded Status: Recorded on: 11/20/19 12 5:38PM;D iscontin ued Status: Disconti nued on: 12/05/19 12 4:07PM;U ser: [email or web address] Not Available Not Available Not Available Nitro 07/30 completed Nitro transder mal;Jose rded Status: Recorded on: 11/05/19 14 10:50AM; Disconti nued Status: Disconti nued on: 07/30/20 14 8:51AM;U ser: [email or web address]; Indicati on: - (-5) Not Available Not Available Not Available Cleocin 1 bid 05/27 completed cleocin 300mg;Re corded Status: Recorded on: 04/15/20 10 9:13AM;D iscontin ued Status: Disconti nued on: 05/27/20 10 9:27AM;U ser: [email or web address] [email or web address];Est. Completi on: 04/25/20 10;Indic ation: - (-5) Not Available Not Available Not Available Septra DS 1 bid 04/15 completed septra ds;Recor ded Status: Recorded on: 02/02/20 09 9:14AM;D iscontin ued Status: Disconti nued on: 04/15/20 10 9:13AM;U ser: darvin [email or web address];Est. Completi on: 03/03/20 09;Indic ation: - (-5);Milly nted: 02/02/20 09 Not Available Not Available Not Available Vitamin B1 250MG BY MOUTH ONCE DAILY 07/12 completed Not Available Not Available Not Available Calcium 600 with Vitamin D3 04/12 completed Calcium 1200mg and Vitamin D3 1000mg -taking 2 daily Not Available Not Available Not Available Levemir U-100 Insulin 100 unit/mL subcutane ous solution 35 units in am and 35 units in pm 07/30 completed Levemir 100 unit/mL subcutan eous solution ;Recorde d Status: Recorded on: 11/05/19 14 10:50AM; Disconti nued Status: Disconti nued on: 07/30/20 14 8:51AM;U ser: [email or web address] Not Available Not Available Not Available Easy Touch Insulin Syringe 1 mL 31 gauge x 02/20 active Not Available Not Available Not Available calcium 600 mg (as carbonate )-vitamin D3 10 mcg (400 unit) tablet 08/16 completed OTC Not Available Not Available Not Available olopatadi ne 0.2 % eye drops INSTILL 1 DROP INTO AFFECTED EYE(S) BY OPHTHALM IC ROUTE ONCE DAILY active Not Available Not Available No t Available peg 3350-elec trolytes 236 gram-22.7 4 gram-6.74 gram-5.86 gram solution 08/04 completed Not Available Not Available Not Available Lovaza 1 qd 05/27 completed lovaza;R ecorded Status: Recorded on: 01/29/20 09 10:57AM; Disconti nued Status: Disconti nued on: 05/27/20 10 9:27AM;U ser: [email or web address]; Est. Completi on: 02/28/20 09;Indic ation: hyperlip idemia - (-5) Not Available Not Available Not Available levocetir izine 5 mg tablet active Not Available Not Available No t Available Fish Oil 300 mg capsule take 1 capsule by oral route 2 times a day for 30 days 08/04 completed Fish Oil 300 mg oral capsule; Recorded Status: Recorded on: 04/12/20 16 9:14AM;U ser: [email or web address];Est. Completi on: 07/11/20 16;Print ed: 04/12/20 16 Not Available Not Available Not Available Trilipix 135 mg capsule,d elayed release take 1 capsule (135 mg) by oral route daily for 30 days 07/30 completed Trilipix 135 mg oral capsule, delayed release( /EC);c omment: Pt. unable to afford;R ecorded Status: Recorded on: 11/13/19 13 5:12PM;D iscontin ued Status: Disconti nued on: 07/30/20 14 8:51AM;U ser: [email or web address]; Est. Completi on: 02/12/20 13;Print ed: 11/13/19 13 Not Available Not Available Not Available Vitamin D3 125 mcg (5,000 unit) tablet take 1 tablet by oral route daily for 30 days 07/12 completed Vitamin D3 5,000 unit oral tablet;R ecorded Status: Recorded on: 04/12/20 16 9:14AM;U ser: [email or web address];Est. Completi on: 07/11/20 16;Print ed: 04/12/20 16 Not Available Not Available Not Available Probiotic 07/12 completed Not Available Not Available Not Available SIGKAT 1 daily 10/11 completed Not Available Not Available Not Available Lotemax 0.5 % eye ointment Apply 1 applicat ion every day by ophthalm ic route at bedtime for 7 days. 04/05 completed Not Available Not Available Not Available OneTouch Verio test strips active Not Available Not Available Not Available OneTouch Verio test strips 1 QID active Not Available Not Available Not Available V-GO 20 device 07/12 completed Not Available Not Available Not Available BD Insulin Syringe Ultra-Fin e 1 mL 31 gauge x 15/64 active Not Available Not Available Not Available Dymista 137 mcg-50 mcg/spray nasal spray [place] 1 spray every day by nasal route as needed for 30 days. 08/16 completed ALLERGY Not Available Not Available Not Available Multi Vitamin 1 qd active Not Available Not Available Not Available guaifenes in ER 600 mg tablet, extended release 12 hr Take 1 tablet every 12 hours by oral route for 15 days. 01/28 completed Not Available Not Available Not Available Trulicity 1.5 mg/0.5 mL subcutane ous pen injector Inject 65 mL every day by sub-q route in the morning for 84 days. active Not Available Not Available No t Available Arnuity Ellipta 100 mcg/actua tion powder for inhalatio n 04/05 completed Not Available Not Available Not Available Praluent Pen 150 mg/mL subcutane ous pen injector Inject 1 mL every 2 weeks by subcutan eous route as directed . 08/13 completed Not Available Not Available Not Available Praluent Pen 75 mg/mL subcutane ous pen injector taking 1/2 dose q 2weeks active Not Available Not Available No t Available Praluent Pen 07/13 completed not on due to insuranc e Not Available Not Available Not Available Vitamin B12 1000 MG TWICE DAILY 07/12 completed Not Available Not Available Not Available Tresiba FlexTouch U-100 insulin 100 unit/mL (3 mL) subcutane ous pen Inject 100 units every 2 weeks by subcutan eous route as directed . active Not Available Not Available No t Available Tresiba FlexTouch U-100 70 units qday 08/13 completed ENDO Not Available Not Available Not Available Droplet Pen Needle 32 gauge x 5/32 active Not Available Not Available Not Available BD Insulin Syringe U-500 1/2 mL 31 gauge x 15/64 Take 1 syringe every day by miscell. route as directed for 50 days. active Not Available Not Available No t Available Shingrix (PF) 50 mcg/0.5 mL intramusc ular suspensio n, kit USE DIRECTED 08/13 completed Not Available Not Available Not Available OneTouch Delica Plus Lancet 33 gauge active Not Available Not Available Not Available [facility] 75 mg disintegr ating tablet TAKE ONE (1) TABLET EVERY OTHER DAY BY MOUTH active Not Available Not Available No t Available FreeStyle Milagro 2 Sensor kit active Not Available Not Available Not Available FreeStyle Mliagro 2 Idabel active Not Available Not Available Not Available Vitals Date Recorded Body height Body mass index (BMI) Body weight Body temperature Respiratory rate Heart rate Oxygen saturation Oxygen saturation in Arterial blood by Pulse oximetry Systolic And Diastolic Provider Name and Address Organization Details Last Updated DateTime 3 160.02 cm 38.8 kg/m2 23594.7 3 g 98.6 [degF] 20 /min 58 /min 98 % 98 % 148/86 mm[Hg] Chula Bennett [place] - [facility] 3 14:06:15 Date Recorded Body height Body temperature Heart rate Oxygen saturation Oxygen saturation in Arterial blood by Pulse oximetry Respiratory rate Oxygen saturation Oxygen saturation in Arterial blood by Pulse oximetry Heart rate Systolic And Diastolic Systolic And Diastolic Systolic And Diastolic Systolic And Diastolic Provider Name and Address Organization Details Last Updated DateTime 3 160.02 cm 98.7 [degF] 70 /min 93 % 93 % 20 /min 97 % 97 % 75 /min 150/100 mm[Hg] 150/96 mm[Hg] 140/86 mm[Hg] 140/84 mm[Hg] [facility] 16[facility]37 Date Recorded Body height Body mass index (BMI) Body weight Body temperature Respiratory rate Heart rate Oxygen saturation Oxygen saturation in Arterial blood by Pulse oximetry Systolic And Diastolic Systolic And Diastolic Provider Name and Address Organization Details Last Updated DateTime 2 160.02 cm 36.3 kg/m2 31436.1 4 g 98.5 [degF] 20 /min 58 /min 98 % 98 % 156/100 mm[Hg] 140/58 mm[Hg] [facility] 11:14:51 Date Recorded Body height Heart rate Oxygen saturation Oxygen saturation in Arterial blood by Pulse oximetry Body mass index (BMI) Body weight Body temperature Respiratory rate Systolic And Diastolic Provider Name and Address Organization Details Last Updated DateTime 2 160.02 cm 74 /min 98 % 98 % 36.5 kg/m2 68555.0 3 g 98.3 [degF] 18 /min 138/84 mm[Hg] Lizzy Washington [facility] 2 14:52:44 Date Recorded Body height Body temperature Heart rate Oxygen saturation Oxygen saturation in Arterial blood by Pulse oximetry Provider Name and Address Organization Details Last Updated DateTime 2 160.02 cm 102.6 [degF] 102 /min 93 % 93 % [facility] 13:39:35 Social History Question Answer Notes LastModified by Organizat ion Details LastModified Time Tobacco Smoking Status Never Smoker Tanvi godfrey [facility] 08/04/2016 13:26:20 Able To Swim? Yes Information not available 09/06/2016 Do You Have An Advance Directive? No Information not available 08/04/2016 Are You Blind Or Do You Have Difficulty Seeing? No Information not available 09/06/2016 What Is Your Level Of Caffeine Consumption? Occasional Information not available 08/04/2016 Are You Deaf Or Do You Have Serious Difficulty Hearing? No Information not available 09/06/2016 What Type Of Diet Are You Following? CARDIAC Information not available 09/06/2016 Swimming/diving Yes Informati on not available 09/06/2016 Hard Of Hearing Or Deaf In One Or Both Ears? No Information not available 08/04/2016 Legally Blind In One Or Both Eyes? No Information no t available 08/04/2016 Live Alone Or With Others? Alone Information not available 08/04/2016 What Was The Date Of Your Most Recent Tobacco Screening? 10/26/2022 Information not available 10/26/2022 How Many Children Do You Have? 3 Information not available 08/04/2016 What Is Your Relationship Status? Information not available 08/04/2016 Seat Belts Used Routinely Yes Information not available 09/06/2016 Are You Sexually Active? No Information not available 09/06/2016 Smoke Alarm In Home Yes Information not available 09/06/2016 Are You Passively Exposed To Smoke? No Information no t available 09/06/2016 General Stress Level High Information not available 09/06/2016 Do You Have Difficulty Walking Or Climbing Stairs? No Information not available 09/06/2016 Sex: Unknown Functional Status Question Answer Note LastModified by Organizat ion Details LastModified Time Do you use any illicit or recreational drugs? No Information not available 10/26/2022 What is your level of alcohol consumption? None Information not available 08/04/2016 Are you currently employed? No Information not available 08/04/2016 Are you able to walk? YESWOREST Information not available 08/28/2019 Do you have difficulty doing errands alone? No Information not available 09/06/2016 Are you able to care for yourself? Yes Information not available 08/04/2016 What is your occupation? disability Information not available 08/04/2016 Do you have difficulty dressing or bathing? No Information not available 09/06/2016 Do you or have you ever used e-cigarettes or vape? Never used electronic cigarettes Information not available 08/28/2019 What is your exercise level? None Information not available 08/04/2016 Mental Status Question Answer Note LastModified by Organization D etails LastModified Time Do you have difficulty concentrating, remembering or making decisions? No Information no t available 09/06/2016 Family History Relationship Description Onset Age of this Age Resolved Age Notes LastModified by Organization Details LastModified Time Mother Diabetes mellitus Not available 2015 11:05:34 Mother Heart disease Not available 2015 11:05:46 Mother Family history of malignant neoplasm Not available 2015 11:06:00 Mother Hypertensive disorder Not available 2015 11:06:13 Father Heart disease Not available 2015 11:05:46 Medical History Condition Response Pancreatitis N Coronary Artery Disease Y Other N Gout N Atrial Fibrillation N congenital heart disease N Blood Diseases N Kidney Stones N Hyperthyroidism N Rheumatoid arthritis N Blood Transfusion N Erectile Dysfunction N amputation N Skin Lesions N COPD N Depression N Pneumonia N Incontinence N Murmur N Edema N Alzheimer's Disease N Migraine Headaches N Tobacco Abuse N Anxiety Disorder N Muscle, Joint, or Bone Problems Y Hemorrhoids N Obesity Y Vision or Eye Problems N Restless Leg Syndrome N Arthritis Y Infertility N Polyps N Carpal Tunnel N Mental Disorder N Acid Reflux (GERD) N Cancer N Stroke N Varicosities N Tendonitis N Crohn's Disease N Hypercholesterolemia N Skin Cancer N Fibromyalgia N Headaches N Anal Fissure N Irritable Bowel Syndrome N Kidney Disease N Heart Problems N Ear or Hearing Problems N Hospitalizations N Gallstones N Kidney or Bladder Problems N Goiter N Acne N Skin Problems N Eating Disorder N Lewis's Esophagus N Hypertriglyceridemia N MRSA exposure N Constipation N Embolism N Vitamin B12 Deficiency N Deviated Septum N Tuberculosis N AIDS/HIV N Myocardial Infarction N Asthma N Mitral Valve Disorders N Vertigo N Hepatitis N Thyroid Cancer N Neuropathy Y Pulmonary Embolism N History of DVT N Herniated Disc N Chronic Ear Infections N Chicken Pox N Autism Spectrum Disorder (ASD) N Von Willebrands Disease N Thrombophilias N Breast Cancer N Hernia N Plantar Fasciitis N Hospital Admission Other Than N Hypothyroidism Y Lung Disease N Defects or Inherited Disease N Developmental or Behavioral Disorders N Breast Problem N Difficulty Swallowing N Ovarian Cyst N Anesthesia Complications N Testosterone Deficiency N Meniere's disease N Head Injury/Concussion N Interstitial Cystitis N Congenital Anomalies N Hypoglycemia N Blood clot N Vitamin D Deficiency N Cellulitis N Endometriosis N Fracture N Bladder or Kidney Problems Y Liver Disease N Panic Disorder N Schizophrenia N Concussion N Spina Bifida N Allergies/Hayfever N Osteoarthritis N Parkinson's Disease N Disc Protrusion N STI N Esophagitis N Angina N Thyroid Problems N GI Problems N ADD/ADHD N Anemia N Multiple Sclerosis N Abnormal PAP N Lumbago N Mental Illness N Psychiatric Illness N Diabetes Y Ovarian Cancer N Bedwetting N Degenerative Disc Disease Y Seizures/Epilepsy N Congestive Heart Failure (CHF) Y Hyperlipidemia Y Syncope N Insomnia N Eczema N Abuse/Domestic Violence N Attention Deficient Disorder N Diverticulitis N Dementia N Ulcerative colitis N Cerebrovascular Disease Y Depression N Guillain-[place]aver N Sleep Apnea N Aneurysm N Bronchitis N Heart Disease N Suicidal Ideation N Pre-Eclampsia N Hypertension Y Osteoporosis Y Gynecological History Statement/Question Response Date of Last Colonoscopy 08/18/2016 Date of Last Mammogram 10/25/2020 Date of LMP Most Recent Bone Density 07/20/2017 Date of Last Pap Smear Most Recent Mammogram 05/15/2017 Obstetrics History GPAL:G 3 P 0 0 0 3 Type Value Living 3 Total 3 Immunizations Vaccine Type Date Status Note Provider Nam e and Address Organization Details Recorded Time Influenza, split virus, quadrivalent, preservative 0 completed Yecenia Ruiz MD [address], [place], [address], [place] - [facility] 10/05/2020 17:08:59 zoster recombinant 0 completed Yecenia Ruiz MD [address], [place], [address], [place] - [facility] 10/05/2020 17:08:59 Influenza, split virus, quadrivalent, preservative 7 completed Not Available [facility] 10/25/2019 03:54:37 influenza, unspecified formulation 4 completed Not Available [facility] 2023 00:26:22 influenza, unspecified formulation 4 completed Not Available [facility] 2023 00:26:22 influenza, unspecified formulation 6 completed Not Available [facility] 2023 00:26:22 pneumococcal polysaccharide PPV23 8 completed Not Available [facility] 10/25/2019 03:54:58 Influenza, split virus, quadrivalent, preservative 9 completed Not Available [facility] 10/25/2019 03:56:15 zoster live 9 completed Not Available [facility] 10/25/2019 03:56:02 Past Encounters Encounter ID Performer Location Encounter Start Date Encounter Closed Date Diagnosis/Indication Diagnosis SNOMED-CT Code Diagnosis ICD10 Code Diagnosis Note [id number] Tristan Chavez DO [address] [place] [id number] 08/04/2016 12:29:08 08/04/2016 14:14:14 Chest pain 28441016 R07.9 [id number] Tiffany Houser [address] [place] [id number] 09/06/2016 10:49:14 09/06/2016 11:28:02 Pain of shoulder region 40304606 M25.512 Neuropathy due to diabetes mellitus 537868118 E11.40 [id number] Tiffany Houser APR[address] [place] [id number] 10/10/2016 09:53:23 10/10/2016 10:37:12 Anxiety 57365964 F41.9 Neuropathy due to diabetes mellitus 495965551 E11.40 Irritable bowel syndrome 84039990 K58.9 Fibromyalgia 243081011 M 79.7 Gastroesop hageal reflux disease 808133808 K21.0 Disease of liver 7749024 03 K76.9 Malignant tumor of thyroid gland 818557750 C73 Arthritis 3082261 M19.90 Type 2 arslan betes mellitus 63989349 E11.42 Hyperlipidemia 11214167 E78.5 Essential hypertension 80427649 I10 Osteoporosis 25328724 M8 1.0 Hiatal hernia 35297985 K 44.9 Degenerati on of intervertebral disc 71816614 M51.9 Diabetes mellitus 200060 09 E13.43 [id number] Tiffany Houser APRN [address] [place] [id number] 11/07/2016 10:04:43 11/07/2016 10:20:06 Long-term drug therapy 909956103 Z79.899 Irritable bowel syndrome 83644048 K58.9 Fibromyalgia 788214425 M 79.7 Gastroesop hageal reflux disease 315227071 K21.0 Disease of liver 6977975 03 K76.9 Malignant tumor of thyroid gland 241437293 C73 Arthritis 9996743 M19.90 Type 2 arslan betes mellitus 09604092 E11.42 Hyperlipidemia 29252297 E78.5 Essential hypertension 75687404 I10 Osteoporosis 53967288 M8 1.0 Degenerati on of intervertebral disc 81926703 M51.9 Hiatal hernia 08874296 K 44.9 [id number] Tiffany Houser APRN [address] [place] [id number] 11/28/2016 15:25:45 11/28/2016 15:52:10 Pain of shoulder region 94664200 M25.512 Pain in left arm 9321229 00 M79.380 [id number] Yamilet Kellogg MD [address] [place] [id number] 12/11/2016 17:25:32 12/11/2016 18:22:52 Abscess of skin and/or subcutaneous tissue 37127997 L02.91 Carpal king yeimi syndrome 33017464 G56.02 Viral gastroenteritis 11 9020328 A08.4 [id number] Tiffany Houser APRN [address] [place] [id number] 01/09/2017 09:41:26 01/09/2017 10:43:41 Long-term drug therapy 396145005 Z79.899 Diabetes mellitus 316199 09 E11.9 [id number] Tiffany Houser APRN [address] [place] [id number] 04/12/2017 08:27:32 04/12/2017 09:07:49 Long-term drug therapy 190435557 Z79.899 Vitamin D deficiency 347 82047 E55.9 Allergic conjunctivitis 228698820 H10.13 [id number] Yecenia Ruiz MD [address] [place] [id number] 07/12/2017 09:03:02 07/12/2017 10:01:24 Fibromyalgia 126450881 M79.7 Gastroesop hageal reflux disease 830142850 K21.9 Long-term drug therapy 116136808 Z79.899 Type 2 arslan betes mellitus 08013451 E11.42 Osteoporosis 67379646 M8 1.0 Non-alcoho lic fatty liver 739111736 K76.0 Vitamin D deficiency 347 28011 E55.9 Allergic conjunctivitis 203242602 H10.11 Seasonal a llergic rhinitis 132599232 J30.2 History of polyp of colon 253733075 Z86.010 Administra tion of influenza vaccine 80882336 Z23 [id number] Yecenia Ruiz MD [address] [place] [id number] 08/17/2017 09:42:21 08/17/2017 10:36:04 Acute sinusitis 33498779 J01.90 Lesion of nasal mucosa 718320398 J34.89 [id number] Yecenia Ruiz MD [address] [place] [id number] 10/05/2017 10:12:47 10/05/2017 11:12:05 Gastroesophageal reflux disease 542550382 K21.9 Hematochezia 384882519 K 62.5 [id number] Yecenia Ruiz MD [address] [place] [address] 01/03/2018 09:54:48 01/03/2018 10:34:05 Type 2 diabetes mellitus 62174101 E11.42 Hyperlipidemia 62592725 E78.5 Essential hypertension 06919254 I10 Gastroesop hageal reflux disease 638686583 K21.9 Fibromyalgia 133826397 M 79.7 Administra tion of pneumococcal vaccine 56558498 Z23 [id number] Mark Tavera APRN [address] [place] [id number] 01/11/2018 10:11:53 01/11/2018 10:44:57 Acute frontal sinusitis 78035798 J01.10 Acute conjunctivitis 537 14150 H10.12 Lesion of nasal mucosa 611095179 J34.89 Patient has muciprocin 2% she is currently using for this, prescribed per Dr. Ruiz. [id number] Mark Tavera APRN [address] [place] [id number] 01/24/2018 10:35:42 01/24/2018 11:34:53 Bacterial conjunctivitis 518868652 H10.9 Multiple environmental allergies 611755295 T78.49XS Multiple allergies [id number] Yecenia Ruiz MD [address] [place] [id number] 04/05/2018 09:44:00 04/05/2018 10:23:44 Fibromyalgia 760987934 M79.7 Gastroesop hageal reflux disease 040238273 K21.9 Type 2 arslan betes mellitus 85454256 E11.42 Hyperlipidemia 08015997 E78.5 Essential hypertension 62868122 I10 Arthritis 1094737 M19.90 Body mass index 30+ - obesity 403825014 Z68.36 Active or passive immunization 790593186 Z23 Screening mammography 24 609050 Z12.31 History of multiple allergies 184580355 Z91.09 [id number] Yecenia Ruiz MD [address] [place] [id number] 08/26/2018 10:52:28 08/26/2018 11:29:28 Acute pharyngitis 261652784 J02.9 Candidiasis of vagina 72 887105 B37.3 [id number] Pedro Tony MD [address] [place] [id number] 10/11/2018 14:50:12 10/11/2018 16:00:13 Pain of left hip joint 3854318370 68039 M25.552 Body mass index 30+ - obesity 195815476 Z68.34 [id number] Yecenia Ruiz MD [address] [place] [id number] 08/28/2019 15:28:32 08/28/2019 16:42:10 Fibromyalgia 766990401 M79.7 Irritable bowel syndrome 70482162 K58.9 Gastroesop hageal reflux disease 034790077 K21.9 Long-term drug therapy 972658851 Z79.899 Arthritis 4946373 M19.90 Type 2 arslan betes mellitus 86289189 E11.42 cont care per Endo Hyperlipidemia 77810268 E78.5 Essential hypertension 03199037 I10 Degenerati on of intervertebral disc 32746737 M51.9 Body mass index 30+ - obesity 695449921 Z68.35 Administra tion of influenza vaccine 08648321 Z23 Active or passive immunization 254219536 Z23 Pain in left foot 429067 1920 42563 M79.670 [id number] Yecenia Ruiz MD [address] [place] [address] 09/09/2019 16:29:11 09/09/2019 18:09:39 Active or passive immunization 995520812 Z23 [id number] Maranda Stock [employer] [address] [place] [address] 11/05/2019 12:01:08 11/05/2019 12:36:49 Pain in throat 571363551 R07.0 Cough 95273449 R05 Upper resp iratory infection 73661546 J06.9 [id number] Yecenia Ruiz MD [address] [place] [id number] 01/29/2020 14:22:39 01/29/2020 15:41:52 Closed fracture of rib 83913013 S22.39XA Liver marcello r laceration with open wound into cavity 834852930 S36.114A Fracture o f transverse process of lumbar vertebra 815581537 S32.009A Adrenal gl and hematoma 995274592 E27.49 Fractured nasal bones 26 8316696 S02.2XXA Traumatic intracranial subdural hematoma with brief loss of consciousness 327918857 S06.5X9A Mallet finger 48174608 M 20.011 5th [id number] Yecenia Ruiz MD [address] [place] [id number] 03/05/2020 09:41:29 03/05/2020 10:39:44 Increased liver function 58351809 R94.5 Liver enzy mes level above reference range 607201259 R74.8 Closed fra cture of rib 51769156 S22.39XA Liver marcello r laceration with open wound into cavity 287666134 S36.114A Fracture o f transverse process of lumbar vertebra 759466893 S32.009A Adrenal gl and hematoma 566400261 E27.49 Traumatic intracranial subdural hematoma with brief loss of consciousness 128396100 S06.5X9A Mallet finger 70061976 M 20.011 wear brace as much as she can - I bent the brace so the joint would be more in extension [id number] Yecenia Ruiz MD [address] [place] [id number] 03/26/2020 09:20:01 03/26/2020 10:20:34 Closed fracture of rib 98041809 S22.39XA Liver marcello r laceration with open wound into cavity 021299809 S36.114A Fracture o f transverse process of lumbar vertebra 759899411 S32.009A Adrenal gl and hematoma 602067985 E27.49 Traumatic intracranial subdural hematoma with brief loss of consciousness 312803465 S06.5X9A Mallet finger 87949815 M 20.011 wear brace as much as she can - I bent the brace so the joint would be more in extension Muscle pain 23948619 M79 .10 Screening mammography 24 505115 Z12.31 New daily persistent headache 8660701709 22837 G44.52 [id number] Tete Cox MD [address] [place] [address] 07/13/2020 11:58:21 07/13/2020 12:48:45 Right flank pain 152611233 R10.9 UA in office is unremarkab le. Hx of kidney stones. I recommende d that she should go to the hospital emergency department (ER) right now for further evaluation and management . I offered transfer to ER via ambulance but patient declined that. Follow up with us after hospital discharge. Patient agrees with the above plan. Chronic back pain 124439 002 M54.9 Get XRS of L and T spines. Follow up with PCP Dr. Ruiz Numbness 82250692 R20.0 See above under headache - Headache 30208722 R51.9 Intermitte nt headaches and numbness over forehead and left side of face since trauma on 01.19.20. No known allergies to contrast or dye. Will get MRI of brain. Follow up with us in 1 to 2 days after MRI to discuss test results [id number] Yecenia Ruiz MD [address] [place] [address] 07/20/2020 16:00:12 07/20/2020 16:54:41 Fibromyalgia 733790654 M79.7 [id number] Yecenia Ruiz MD [address] [place] [address] 10/05/2020 09:50:02 10/05/2020 13:01:23 Arthritis 4686938 M19.90 Coronary arteriosclerosis 43513468 I25.10 Degenerati on of intervertebral disc 07280115 M51.9 Essential hypertension 14531231 I10 Fibromyalgia 761350952 M 79.7 Gastroesop hageal reflux disease 351248647 K21.9 Hyperlipidemia 18573116 E78.5 Malignant tumor of thyroid gland 665842326 C73 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 352164891 E11.3299 Mixed hyperlipidemia 267 662099 E78.2 Non-alcoho lic fatty liver 114178129 K76.0 Type 2 arslan betes mellitus 65203017 E11.42 cont care per Endo Screening mammography 24 311733 Z12.31 she has appt in Oct, 2020 Administra tion of influenza vaccine 59752038 Z23 Pain in both feet 630078 8564 1849776 M79.672 Myalgia/my ositis - multiple 791457392 M79.10 Active or passive immunization 983102046 Z23 Vaccination needed 94282 40927 40382 Z23 [id number] Yecenia Ruiz MD [address] [place] [address] 08/16/2021 08:25:57 08/16/2021 09:14:41 Coronary arteriosclerosis 88348010 I25.10 following with cardiology Essential hypertension 33080525 I10 controlled on meds Fibromyalgia 120658069 M 79.7 stable, doing well on meds Gastroesop hageal reflux disease 161719568 K21.9 controll on PPI Hyperlipidemia 17074337 E78.5 Malignant tumor of thyroid gland 991548295 C73 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 526011405 E11.3299 Mixed hyperlipidemia 267 723869 E78.2 on Praluent Non-alcoho lic fatty liver 565915563 K76.0 follows with Endo Type 2 arslan betes mellitus 31098863 E11.42 cont care per Endo Administra tion of influenza vaccine 70871970 Z23 Allergic conjunctivitis 379034775 H10.11 Low back pain 002127172 M54.50 Migraine 23254291 G43.90 9 Dysuria 67815081 R30.9 [id number] Yecenia Ruiz MD [address] [place] [address] 12/13/2021 13:39:18 12/13/2021 15:02:27 Chronic daily headache 2587476381 60421 R51.9 Migraine without aura 56 452245 G43.332 [id number] Yecenia Ruiz MD [address] [place] [address] 03/28/2022 10:45:40 03/28/2022 11:37:09 Acute sinusitis 63486168 J01.90 [id number] Yecenia Ruiz MD [address] [place] [address] 07/07/2022 10:02:30 07/07/2022 11:27:41 New daily persistent headache 9567047429 08064 G44.52 Vertigo 252948809 R42 [id number] Pedro Tony MD [address] [place] [address] 07/26/2022 14:25:54 07/26/2022 14:58:30 Suspected COVID-19 484897115 Z20.822 Influenza- like symptoms 086505532 R68.89 Lymphadenitis 27693714 I 88.9 Body mass index 30+ - obesity 325098195 Z68.36 [id number] Yecenia Ruiz MD [address] [place] [address] 08/15/2022 12:28:43 08/15/2022 15:49:42 Influenza-like symptoms 737677345 R68.89 [id number] Yecenia Ruiz MD [address] [place] [address] 10/26/2022 13:48:18 10/26/2022 14:40:55 Coronary arteriosclerosis 36348817 I25.10 following with cardiology Essential hypertension 42130882 I10 controlled on meds Fibromyalgia 644263880 M 79.7 stable, doing well on meds Gastroesop hageal reflux disease 103104630 K21.9 controlled on PPI Malignant tumor of thyroid gland 849230801 C73 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 173098533 E11.3299 Mixed hyperlipidemia 267 402474 E78.2 on Praluent Non-alcoho lic fatty liver 836123844 K76.0 follows with Endo Type 2 arslan betes mellitus 95879656 E11.42 cont care per Endo Migraine 63797115 G43.90 9 meds are helping Acute low back pain 2788 27487 M54.50 [address] acic back pain 884396917 M54.6 as above [id number] Yecenia Ruiz MD [address] [place] [address] 11/13/2022 15:09:28 11/13/2022 17:50:38 Coronary arteriosclerosis 16877828 I25.10 following with cardiology Essential hypertension 48235353 I10 controlled on meds Fibromyalgia 284172172 M 79.7 stable, doing well on meds Gastroesop hageal reflux disease 596847035 K21.9 controlled on PPI Mixed hyperlipidemia 267 796606 E78.2 on Praluent Non-alcoho lic fatty liver 664084547 K76.0 follows with Endo Type 2 arslan betes mellitus 81160293 E11.42 cont care per Endo Migraine 95211564 G43.90 9 meds are helping Dizziness 015960907 R42 Health Concerns Section Related Observation LastModified by Organization Detai ls LastModified Time None Recorded Concern Status LastModified by Organization Details LastModified Time None Recorded Advance Directives Directive N: Payers Insurance Date Sequence Insurance Name Policy Number Policy Jacobsen Covered Member ID Jacobsen Member ID Guarantor Name 08/16/2021 1 [place] Angeles Machado [id number] Angeles Machado 10/26/2022 1 [place]/A DVANTAGE - HMO) [id number] Angeles Machado [id number] Angeles Machado 08/16/2021 [place] [employer] Angeles Machado 08/16/2021 1 [place] Angeles Machado [id number] Angeles Machado 11/13/2022 2 [facility]ID[facility] HEALTH CHOICES - FFS/TRADITION AL Angeles Machado [id number] Angeles Machado 08/16/2021 [place] [facility] (MEDICARE) Angeles Machado [id number] Angeles Machado 11/03/2022 1 [employer] - CHOICECARE (PPO) Angeles Machado [id number] Angeles Machado 11/13/2022 1 [employer] (MEDICARE REPLACEMENT/A DVANTAGE - PPO) Angeles Machado [id number] Angeles Machado Notes Date Note Type Note Provider Name and Address Organization Details Recorded Time 07/07/2022 text/html here with CURRY and dizziness she woke up with it 5 days ago any movement makes it worse. she is feels off balance. spinning sensation. with n/v/d - now just nausea. v/d the first 3-4 days. no tx tried. she wasn't eating or drinking. now a little water. had oatmeal and chicken noodle soup CURRY is like her head is in a vice. will drawl on the L side, but pain on both sides, will go to neck. a little blurriness of vision OU. no vision loss a little sinus drainage she thinks she had a fever the first couple days MRI brain 01/11/22 - see report taking 2 aleve 1-2 times a day, eases a little sumatriptan has made CURRY's worse Yecenia Ruiz MD [address], [place], [address], [facility] 07/07/2022 11:26:50 07/26/2022 text/html C/O ST, head congestion, swollen cervical glands 4 days. Gets every year and needs abt. Pedro Tony MD [address], [place], [address], [facility] 07/26/2022 15:02:19 08/15/2022 text/html she has had 2 days of fever, chills, body aches, cough, congestion and SOB hurts all over. decreased appetite but drinking Yecenia Ruiz MD [address], [place], [address], [facility] 08/15/2022 15:43:10 10/26/2022 text/html here with back pain x 2 weeks. no known injury. taking ibu 800, MR, heat, roll on lotions, or meloxicam pain is diffuse low and mid back hasn't been seen for a routine care visit since Aug, she has been seeing methodologist and the nasal sprays are helping follows with Dr Taylor for DM goes to eye doc regularly last A1c - she doesn't remember taking calcium and vit D not checking BP at home Dr Cunningham is filling her meds her glucose monitor went off - 58. she tested and was 85 Yecenia Ruiz MD [address], [place], [address], [facility] 10/26/2022 18:57:40 11/13/2022 text/html seen 2 weeks ago with back pain. she was treated and referred to PT now has dizziness and a CURRY and hip pain. her head started feeling bad earlier today.. she went to [employer] to eat and felt worse so came here. her vision is fuzzy B she last ate at [facility] also having mid back pain and while she was here she felt that her L arm was jerking. L sided CP that she felt with deep breaths. her heart is racing reviewed recent labs she did per Endo recently she hasn't been seen for a routine care visit since Aug, she has been seeing methodologist and the nasal sprays are helping follows with Dr Taylor for DM. her A1c 8.9% Yecenia Ruiz MD [facility] [address], [place], [address], [place] - [facility] 11/13/2022 19:02:26 OBGyn Episode No OBEpisode recorded.
--- OUTSIDE RECORDS SUMMARY | 2025-04-17 16:17 | XMS_ITS | Encounter Summary ---
Author Organization [place] [address] Care Team Providers Care Church Administrator Name Role Phone Chris Serra MD Unavailable [phone] Reason for Visit * Reason Onset Date Comments Results 02/23/2025 External Results Request - Diabetes Eye Exam Encounter Details Date Type Department Care Team (Late st Contact Info) Description 02/23/2025 Telephone [facility] [address] [place] [address] Rojas Cunningham MD [address] [place] [address] Results (External Results Request - Diabetes Eye Exam ) Social History Tobacco Use Types Packs/Day Years [...] encounter Miscellaneous Notes * Telephone Encounter - Ratna Astorga RMA - 03/23/2025 11:48 AM EDT The requested records Diabetic Eye Exam from the facility were received and abstracted in the patient's chart on 03/23/2025. [facility] Quality Transformation Department Clinical Pool: [id number] * Telephone Encounter - Ronen Barriga RMA - 03/23/2025 10:54 AM EDT 2nd Attempt: External result requested: Diabetes Eye Exam Referral Encounter Provider: Dr. Cunningham External facility name: [facility] Called and spoke with Amna, at phone number [phone] . Confirmed will fax results : Questions or concerns please contact [facility] Quality Transformation. [facility]formation Quality Clinical Pool: [id number] * Telephone Encounter - Ratna Astorga RMA - 02/23/2025 3:25 PM EDT 1st Attempt: External result requested: Diabetes Eye Exam Referral Encounter Provider: Dr. Cunningham External facility name: [facility] Faxed: [phone] Process: [facility] makes two outreaches to external facility four weeks apart. Results will be abstracted in chart once received and documented. If no results received from facility after 60 days, or no result completed, our team documents no records received/ completed and the External Results Request will be closed. Questions or concerns please contact [facility]. [facility] Quality Clinical Pool: [id number] documented in this encounter Plan of Treatment Upcoming Encounters Date Type Department Care Team (Late st Contact Info) Description 07/01/2025 3:20 PM EDT Office Visit [facility] [place] [address] [place] [address] Rojas Cunningham MD [address] [place] [phone] documented as of this encounter Goals [...] on filedocumented in this encounter Care Teams Church Administrator Relationship Specialty Start Date End Date Chris Serra MD [address] [place] [address] Physician Internal Medicine-Cardiovascular Disease 01/16/13 documented as of this encounter
--- NOTE | 2025-04-17 16:18 | PC.NURSE ---
FSBS 84
--- OUTSIDE RECORDS SUMMARY | 2025-04-17 16:19 | XMS_ITS | Continuity of Care Document ---
Author Organization 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 Name Role Phone Chris Serra MD Unavailable [phone] Encounters Date Type Department Care Team Description 02/23/2025 Telephone [facility] [address] [place] [address] Rojas Cunningham MD Results (External Results Request - Diabetes Eye Exam ) 02/23/2025 3:00 PM EDT Office Visit [facility] [address] [employer] [facility] [address] [place], [place] [phone] Rojas Cunningham MD Dyslipidemia associated with type 2 diabetes mellitus (HCC) (Primary Dx); Post-surgical hypothyroidism; Vitamin D deficiency; Follicular thyroid cancer (HCC) 02/16/2025 Telephone [facility] [address] [place] [phone] Rojas Cunningham MD Labs Only 02/12/2025 Telephone [facility] [address] [place] [phone] Rojas Cunningham MD Paperwork/forms 09/01/2024 Telephone [facility] [address] [employer] [address] [address] Rojas Cunningham MD Paperwork/forms (TMS) 08/26/2024 10:40 AM EST Office Visit [address] [place] [address] Rojas Cunningham MD Dyslipidemia associated with type 2 diabetes mellitus (HCC) (Primary Dx); Post-surgical hypothyroidism; Vitamin D deficiency 07/18/20[place] [address] Rojas Cunningham MD Medication Refill 07/14/2024 [place] [address] Lissy Sagastume APRN Medication Refill 05/13/2024 [address] Lissy Sagastume APRN Medication Refill 05/08/2024 12:30 [place] [address] Rojas Cunningham MD Post-surgical hypothyroidism (Primary Dx); Follicular thyroid cancer (HCC); Vitamin D deficiency; Dyslipidemia associated with type 2 diabetes mellitus (HCC) 04/30/2024 Telephone [facility] [address] [place] [address] Rojas Cunningham MD Other 04/03/2024 [facility]ty [facility] [address] [place] [address] Jael Baker [facility] Hyperlipidemia Management (Repatha) 01/09/2024 Telephone [facility] [address] [place] [phone] Rojas Cunningham MD Medication Refill 01/08/2024 [address] [place] [address] [address] [place] [phone] Rojas Cunningham MD Medication Refill 01/08/2024 [facility]ty [facility] [address] [place] [address] [facility] Hyperlipidemia Management (Repatha ) 01/07/2024 Travel 01/07/2024 12:20 [place] [address] Rojas Cunningham MD Dyslipidemia associated with type 2 diabetes mellitus (HCC) (Primary Dx); Post-surgical hypothyroidism; Follicular thyroid cancer (HCC); Vitamin D deficiency 12/26/2023 Telephone [place] [phone] Rojas Cunningham MD Labs Only 11/28/2023 [facility]ty [facility] [address] [place] [phone] Mary Mancilla [facility] Hyperlipidemia Management; Pharmacy Reassessment (Repatha) 10/31/2023 Refill [place] [address] [place] [address] Rojas Cunningham MD Medication Refill 10/10/2023 [facility] [address] [place] [address] [facility] Hyperlipidemia Management (Repatha) 09/24/2023 1:50 PM EST Office Visit [address] [address] Rojas Cunningham MD Dyslipidemia associated with type 2 diabetes mellitus (HCC) (Primary Dx); Vitamin D deficiency; Post-surgical hypothyroidism; Follicular thyroid cancer (HCC) 09/18/2023 Telephone [facility] [address] [phone] Rojas Cunningham MD Labs Only 09/17/2023 Telephone [facility] [address] [phone] Rojas Cunningham MD Labs (Reminder call) 09/05/2023 Telephone [facility] [address] [phone] Rojas Cunningham MD Medication Refill 07/18/2023 Telephone [facility] [address] [place] [phone] Rojas Cunningham MD Patient Education 07/16/2023 [facility]ty [facility] [address] [place] [address] [facility] Hyperlipidemia Management (Repatha) 06/07/2023 2:50 PM EDT Office Visit [facility] [address] [place] [phone] Rojas Cunningham MD Dyslipidemia associated with type 2 diabetes mellitus (HCC) (Primary Dx); Vitamin D deficiency; Post-surgical hypothyroidism; Follicular thyroid cancer (HCC) 05/25/2023 9:30 AM EDT - 05/25/2023 11:59 PM EDT Hospital Encounter [facility] [address] [place] [address] Dyslipidemia associated with type 2 diabetes mellitus (HCC); Vitamin D deficiency; Post-surgical hypothyroidism Discharge Disposition: Home or Self Care 05/25/2023 10:00 AM EDT Office Visit [facility] [address] [phone],LD Type 2 diabetes mellitus with hyperglycemia, with long-term current use of insulin (HCC) (Primary Dx) 05/19/2023 Refill [facility] [address] [address] Rojas Cunningham MD Medication Refill 04/30/2023 Refill [facility] [address] [address] Rojas Cunningham MD Medication Refill 04/23/2023 [facility]ty [facility] [address] [place] [address] [facility] Hyperlipidemia Management (Repatha ) 03/29/2023 2:40 PM EDT Office Visit [facility] [address] [place] [phone] Rojas Cunningham MD Dyslipidemia associated with type 2 diabetes mellitus (HCC) (Primary Dx); Post-surgical hypothyroidism; Vitamin D deficiency 03/27/2023 [facility]ty [facility] [address] [place] [address] [facility] Hyperlipidemia Management (Repatha ) 03/20/2023 Travel 03/20/2023 12:10 PM EDT - 03/20/2023 11:59 PM EDT Hospital Encounter [facility] [address] [place] [address] Dyslipidemia associated with type 2 diabetes mellitus (HCC); Vitamin D deficiency; Post-surgical hypothyroidism Discharge Disposition: Home or Self Care 03/20/2023 1:00 PM EDT Office Visit [facility] [address] [phone],CDE Type 2 diabetes mellitus with hyperglycemia, with long-term current use of insulin (HCC) (Primary Dx) 03/14/2023 Telephone [facility] [address] [address] Rojas Cunningham MD Blood Sugar Problem 03/07/2023 Telephone [facility] [address] [facility] [address] [place] [phone] Rojas Cunningham MD Labs Only 03/06/2023 Telephone [facility] 1500 [facility] [address] [place] [phone] Rojas Cunningham MD CGMS Interpretation (Milagro Report/Hyperglycemia) 02/14/2023 Telephone [facility] 1500 [facility] [address] [place] [phone] Rojas Cunningham MD Patient Education 02/05/[address] [place], [place] [phone] Rojas Cunningham MD Medication Refill 02/02/[address] [place], [place] [phone] Rojas Cunningham MD Symptom Call; Appointment Needed; Lab Orders 01/12/[address] [place], [place] [phone] Rojas Cunningham MD Medication Refill 12/21/2022 [facility]ty [facility] [address] [place] [phone] Kerrie Almodovar, [facility] Hyperlipidemia Management (Repatha) 11/28/2022 Telephone [facility] 1500 [facility] [address] [place] [address] Rojas Cunningham MD Glucose Monitoring 11/28/2022 [facility]ty [facility] [address] [place] [phone] Starr Ceja, [facility] Hyperlipidemia Management; Pharmacy Initial Assessment (Repatha) 11/28/[address] [place] [phone] Rojas Cunningham MD CGMS Interpretation (Milagro) 11/24/2022 [facility] [address] [place] [address] Ashley Ambrosio, [facility] Hyperlipidemia Management (Repatha) 11/23/2022 [facility]ty [facility] [address] [place], [place] [phone] Gerardo Hdz, [facility] Hyperlipidemia Management (Praluent) 11/23/2022 Orders Only [place] [address] [employer] [facility] [address] [place], [place] [phone] Michaelle Garcia LPN Dyslipidemia associated with type 2 diabetes mellitus (HCC); Hyperlipidemia associated with type 2 diabetes mellitus (HCC) 11/16/2022 Refill [facility] [address] [place] [address] Rojas Cunningham MD Medication Refill 11/15/2022 Telephone [facility] [address] [place] [address] Rojas Cunningham MD Prior Authorization (Milagro-DME) 11/14/2022 7:50 AM EST Office Visit [facility] [address] [place] [address] Rojas Cunningham MD Dyslipidemia associated with type 2 diabetes mellitus (HCC) (Primary Dx); Post-surgical hypothyroidism; Vitamin D deficiency 11/07/2022 Telephone [facility] [address] [address] Rojas Cunningham MD Labs Only 10/30/2022 Refill [facility] [address] [place] [phone] Rojas Cunningham MD Medication Refill; Central Patient Navigator Outreach (med refills 2nd ) 10/01/2022 Refill [facility] [address] [place] [phone] Rojas Cunningham MD Medication Refill 08/15/2022 Telephone [facility] [address] [place] [phone] Rojas Cunningham MD Cancellation 08/06/2022 Refill [facility] [address] [place], [place] [phone] Rojas Cunningham MD Medication Refill; Labs Only 07/10/2022 Telephone [facility] [address] [place], [place] [phone] Rojas Cunningham MD Symptom Call 06/29/2022 Refill [facility] [address] [place], [place] [phone] Rojas Cunningham MD Medication Refill 06/23/2022 Refill [facility] [address] [place] [phone] Rojas Cunningham MD Medication Refill 06/19/2022 Refill [facility] [address] [place], [place] [phone] Rojas Cunningham MD Medication Refill 06/13/2022 Refill [facility] [address] [place] [phone] Rojas Cunningham MD Medication Refill 06/01/2022 Refill [facility] [address] [place] [phone] Rojas Cunningham MD Medication Refill 05/09/2022 12:50 PM EDT Office Visit [facility] [address] [facility] [address] [place] [phone] Rojas Cunningham MD Dyslipidemia associated with type 2 diabetes mellitus (HCC) (Primary Dx); Post-surgical hypothyroidism 05/04/2022 Telephone [facility] [address] [facility] [address] [place] [phone] Rojas Cunningham MD Labs Only 03/10/2022 Refill [facility] 1500 [facility] [address] [facility] [address] [place] [phone] Rojas Cunningham MD Medication Refill 02/15/2022 Refill [facility] 1500 [facility] [address] [facility] [address] [place] [phone] Rojas Cunningham MD Medication Refill 02/02/2022 1:20 PM EDT Office Visit [facility] 1500 [facility] [address] [facility] [address] [place] [phone] Rojas Cunningham MD Dyslipidemia associated with type 2 diabetes mellitus (HCC) (Primary Dx); Post-surgical hypothyroidism; Follicular thyroid cancer (HCC); Vitamin D deficiency 12/06/2021 Refill [facility] 1500 [facility] [address] [facility] [address] [place] [phone] Rojas Cunningham MD Medication Refill 12/01/2021 1:10 PM EST Office Visit [facility] 1500 [facility] [address] [facility] [address] [place] [phone] Rojas Cunningham MD Dyslipidemia associated with type 2 diabetes mellitus (HCC) (Primary Dx); Vitamin D deficiency; Post-surgical hypothyroidism; Follicular thyroid cancer (HCC) 11/16/2021 Refill [facility] [address] [facility] [address] [place] [phone] Rojas Cunningham MD Medication Refill 11/12/2021 Refill [facility] [address] [employer] [facility] [address] [place] [address] Rojas Cunningham MD Medication Refill 11/04/2021 Refill [facility] [address] [facility] [address] [place] [address] Rojas Cunningham MD Medication Refill; Appointment Needed 10/21/2021 Telephone [facility] [address] [facility] [address] [place] [address] Rojas Cunningham MD Other (Antibodies); Cancellation 10/18/[address] [facility] [address] [place] [address] Rojas Cunnignham MD Labs Only 09/12/2021 Telephone [facility] [address] [employer] [address] [place] [address] Rojas Cunningham MD Reschedule 09/06/2021 Telephone [facility] [address] [address] Rojas Cunningham MD Labs Only 09/05/2021 Telephone [facility] [address] [address] [place] [address] Rojas Cunningham MD Labs Only 08/12/2021 Refill [facility] [address] [employer] [address] [place] [phone] Rojas Cunningham MD Medication Refill 07/29/2021 Travel 07/29/2021 11:00 AM EDT Office Visit [facility] [address] [facility] [address] [place] [address] Willa Horton LPN Dyslipidemia associated with type 2 diabetes mellitus (HCC) (Primary Dx); Diabetic autonomic neuropathy associated with type 2 diabetes mellitus (HCC) 07/25/2021 Refill [facility] [address] [place] [phone] Rojas Cunningham MD Medication Refill (Milagro 14 days sensor) 07/15/2021 Travel 07/15/2021 11:00 AM EDT Office Visit [facility] 1500 [facility] [address] [address] [place] [address] Willa Horton LPN Uncontrolled type 2 diabetes mellitus with complication (HCC) (Primary Dx) 07/12/2021 Telephone [facility] [address] [place] [phone] Rojas Cunningham MD Other (Milagro 2) 07/01/2021 Refill [facility] [address] [place] [phone] Rojas Cunningham MD Medication Refill 06/09/2021 Telephone [facility] [address] [place] [phone] Rojas Cunningham MD Results 06/06/2021 Travel 06/06/2021 12:00 PM EDT Office Visit [facility] [address] [place] [phone] Rojas Cunningham MD Dyslipidemia associated with type 2 diabetes mellitus (HCC) (Primary Dx); Vitamin D deficiency; Statin intolerance 06/04/2021 Refill [facility] [address] [place] [phone] Rojas Cunningham MD Medication Refill 05/30/2021 Telephone [facility] [address] [place] [phone] Rojas Cunningham MD Labs Only 05/19/2021 Refill [facility] [address] [facility] [address] [place], [place] [phone] Rojas Cunningham MD Medication Refill 05/06/2021 Refill [facility] [address] Rojas Cunningham MD Medication Refill 04/14/2021 Travel 04/14/2021 11:30 AM EDT Office Visit [facility] [address] Willa Horton LPN Uncontrolled type 2 diabetes mellitus with complication (HCC) (Primary Dx) 04/14/2021 Telephone [facility] [address] [place] [address] Rojas Cunningham MD CGMS Interpretation (Personal Milagro 2 download) 04/12/2021 [facility]ty [facility] [address] [place], [place] [phone] Starr Ceja [facility] Hyperlipidemia Management 03/22/[address] [place] [address] Rojas Cunningham MD Prior Authorization 03/17/2021 Telephone [facility] [address] [place] [address] Rojas Cunningham MD Glucose Monitoring 03/04/2021 Travel 03/04/2021 4:15 PM EDT Office Visit [facility] [address] [place] [address] Willa Horton LPN Uncontrolled type 2 diabetes mellitus with complication (HCC) (Primary Dx) 03/04/2021 Telephone [facility] [address] [facility] [address] [place] [phone] Rojas Cunningham MD CGMS Interpretation (Personal Milagro 2 download) 02/23/2021 Telephone [facility] [address] [facility] [address] [place] [address] Rojas Cunningham MD CGMS Interpretation (Milagro 2) 02/23/2021 Telephone [facility] 1500 [facility] [address] [place] [address] Rojas Cunningham MD Blood Sugar Problem 02/08/2021 Travel 02/08/2021 11:00 AM EDT Office Visit [facility] [address] [place] [address] Willa Horton LPN Uncontrolled type 2 diabetes mellitus with complication (HCC) (Primary Dx) 02/04/2021 [facility]ty [facility] [address] [place] [address] Starr Ceja, [facility] Hyperlipidemia Management; Pharmacy Initial Assessment 02/04/2021 Telephone [facility] 1500 [facility] [address] [place] [address] Rojas Cunningham MD Schedule Appointment 02/03/2021 [facility] [address] [place] [address] Ck Landaverde, [facility] Hyperlipidemia Management 02/03/2021 Travel 02/03/2021 12:50 PM EDT Office Visit [facility] 1500 [facility] [address] [place] [address] Rojas Cunningham MD Dyslipidemia associated with type 2 diabetes mellitus (HCC) (Primary Dx); Post-surgical hypothyroidism; Vitamin D deficiency 02/01/2021 Telephone [facility] 1500 [facility] [address] [place], [place] [phone] Rojas Cunningham MD Labs Only 01/25/2021 Telephone [facility] 1500 [facility] [address] [place], [place] [phone] Rojas Cunningham MD Labs Only 01/03/2021 Refill [facility] [address] [address] Rojas Cunningham MD Medication Refill 11/17/2020 Telephone [facility] [address] [facility] [address] [place] [phone] Rojas Cunningham MD Symptom Call 11/16/2020 [facility] [address] [place] [phone] [facility] Hyperlipidemia Management (Praluent Refill) 10/28/2020 Travel 10/28/2020 1:00 PM EST Office Visit [facility] [address] [place] [phone] Rojas Cunningham MD Dyslipidemia associated with type 2 diabetes mellitus (HCC) (Primary Dx); Post-surgical hypothyroidism; Follicular thyroid cancer (HCC); Vitamin D deficiency 10/26/2020 [facility] [address] [place] [phone] [facility] Hyperlipidemia Management (Praluent Refill) 10/20/2020 Telephone [facility] [address] [place] [phone] Rojas Cunningham MD Labs Only 09/29/2020 [facility] [address] [place] [address] [facility] Hyperlipidemia Management 09/08/2020 [facility] [address] [place] [address] [facility] Hyperlipidemia Management 08/19/2020 Refill [facility] [address] [facility] [address] [place] [phone] Rojas Cunningham MD Medication Refill 08/11/[address] [phone] Rojas Cunningham MD Medication Refill 08/09/2020 [facility] [address] [place] [address] Yanick Wilks [facility] Hyperlipidemia Management (Praluent) 08/09/[address] [phone] Rojas Cunningham MD Medication Refill 07/19/2020 [facility] [address] [place] [address] Yanick Wilks [facility] Hyperlipidemia Management (Praluent) 07/15/2020 Travel 07/15/2020 1:50 [place] [address] Rojas Cunningham MD Dyslipidemia associated with type 2 diabetes mellitus (HCC) (Primary Dx); Post-surgical hypothyroidism; Vitamin D deficiency; Follicular thyroid cancer (HCC) 07/05/2020 Telephone [place] [phone] Rojas Cunningham MD Labs Only 06/23/2020 [facility]ty [facility] [address] [place] [phone] Jael Baker [facility] Hyperlipidemia Management (Praluent) 06/22/[address] [phone] Rojas Cunningham MD Other (Office Notes) 06/02/2020 [facility] [address] [place] [address] Yanick Wilks [facility] Hyperlipidemia Management (Praluent) 05/10/2020 [facility]ty [facility] [address] [place] [address] Trisha Alexander, Business Excellence Manager Pharmacy Hyperlipidemia Management (Praluent refill ) 04/12/2020 Travel 04/12/2020 10:30 AM EDT - 04/12/2020 11:59 PM EDT Hospital Encounter [facility] [address] [place], [place] [phone] [facility], [place] [facility] Bilateral carpal tunnel syndrome (Primary Dx) Discharge Disposition: Home or Self Care 03/29/2020 Telephone [facility] [address] [phone] Rojas Cunningham MD Diabetes (Dexcom Information ) 03/29/2020 Orders Only [facility] [address] [place] [address] Michael Verdin MD Carpal tunnel syndrome, bilateral (Primary Dx) 2020 Travel 2020 [facility]ty [facility] [address] [place] [address] Trisha Alexander, Business Excellence Manager Pharmacy Hyperlipidemia Management (Praluent refill ) 2020 9:50 AM EDT Office Visit [facility] [address] [address] Rojas Cunningham MD Dyslipidemia associated with type 2 diabetes mellitus (HCC) (Primary Dx); Post-surgical hypothyroidism; Follicular thyroid cancer (HCC); Vitamin D deficiency 03/17/2020 Telephone [facility] [address] [phone] Rojas Cunningham MD Other (Office Visit Reminder) 03/09/2020 Telephone [facility] [address] [phone] Rojas Cunningham MD Reschedule (03/18/20 appointment) 03/08/[address] [facility] [address] [address] Rojas Cunningham MD Lab Orders 02/23/2020 [facility]ty [facility] [address] [place] [address] Yanick Wilks [facility] Pharm[facility] Hyperlipidemia Management (Praluent) 02/18/2020 Refill [place] [phone] Rojas Cunningham MD Medication Refill 01/22/2020 [facility] [address] [place] [address] Yanick Wilks [facility] Hyperlipidemia Management (Praluent refill) 01/21/2020 [place] [address] Belia Spence APRN Medication Refill 12/26/2019 [facility]ty [facility] [address] [place] [address] [facility] Hyperlipidemia Management (Praluent refill) 12/25/2019 Travel 12/05/2019 Specialty Pharmacy [facility] [address] [place] [address] Yan[facility] Hyperlipidemia Management (Praluent refill) 11/17/2019 Refill [place] [phone] Rojas Cunningham MD Medication Refill 11/13/2019 Specialty Pharmacy [facility] [address] [place] [address] Esteban Flores, [facility] Hyperlipidemia Management 11/13/2019 Specialty Pharmacy [facility] [address] [place] [address] Starr Ceja, [facility] Hyperlipidemia Management; Pharmacy Initial Assessment 10/31/2019 Telephone [place] [address] [address] [place] [address] [place] [phone] Rojas Cunningham MD Labs Only (Genetic Testing for FH ) 10/13/2019 Specialty Pharmacy [facility] [address] [place], [place] [id number] Esteban Flores, [facility] Hyperlipidemia Management 10/13/2019 1:40 PM EST Office Visit [facility] [address] [facility] [address] [place] [phone] Rojas Cunningham MD Dyslipidemia associated with type 2 diabetes mellitus (HCC) (Primary Dx); Post-surgical hypothyroidism; Follicular thyroid cancer (HCC); Vitamin D deficiency 10/02/2019 Telephone [facility] [address] [address] [place] [phone] Rojas Cunningham MD Labs Only 09/16/2019 Refill [facility] [address] [facility] [address] [place] [phone] Belia Spence APRN Medication Refill 08/08/2019 Refill [facility] 1500 [facility] [address] [facility] [address] [place] [phone] Belia Spence APRN Medication Refill 07/02/2019 1:40 PM EDT Office Visit [facility] [address] [place] [phone] Rojas Cunningham MD Dyslipidemia associated with type 2 diabetes mellitus (HCC) (Primary Dx); Post-surgical hypothyroidism 06/23/2019 Telephone [facility] [address] [place] [phone] Rojas Cunningham MD Labs Only 06/23/2019 Telephone [facility] [address] [place] [phone] Rojas Cunningham MD Labs Only 05/29/2019 Telephone [facility] [address] [place] [address] [place] [address] Rojas Cunningham MD Labs Only 05/16/2019 Telephone [facility] [address] [place] [address] Rosy Farmer CCMA Other (accreditation) 03/04/2019 1:00 PM EDT Office Visit [facility] [address] [place], [place] [phone] Belia Spence APRN Uncontrolled type 2 diabetes mellitus with complication (HCC) (Primary Dx); Post-surgical hypothyroidism; Follicular thyroid cancer (HCC); Diabetic autonomic neuropathy associated with type 2 diabetes mellitus (HCC); Mixed dyslipidemia; Vitamin D deficiency; Statin intolerance; Essential hypertension; Sleep apnea, unspecified type; MEIER (nonalcoholic steatohepatitis) 02/27/2019 Telephone [facility] [address] [place] [address] [place], [place] [phone] Belia Spence APRN Labs Only 01/30/2019 Telephone [facility] [address] [place], [place] [phone] Rojas Cunningham MD Glucose Monitoring (01/17/19-01/29/19) 01/29/2019 Telephone [facility] [address] [place] [address] [place], [place] [phone] Rojas Cunningham MD CGMS Interpretation (Milagro Pro) 01/29/2019 1:00 PM EDT Office Visit [facility] [address] [place] [phone] Uncontrolled type 2 diabetes mellitus with complication (HCC) (Primary Dx) 01/16/2019 2:30 PM EDT Office Visit [facility] [address] [place] [phone] Rojas Cunningham MD Dyslipidemia associated with type 2 diabetes mellitus (HCC) (Primary Dx); Post-surgical hypothyroidism; Follicular thyroid cancer (HCC); Statin intolerance; Vitamin D deficiency 01/08/2019 Telephone [facility] [address] [place] [address] Rojas Cunningham MD Labs Only 01/08/2019 Refill [facility] [address] [facility] [address] [place] [address] Boy Brown MD Medication Refill 01/07/2019 Patient Outreach [facility] [address] Appointment [place] [address] Maranda Jorgensen, LIBRARY INFORMATION TECHNICIAN Referral Follow-up 12/27/2018 Telephone [facility] [address] [place] [address] Belia Spence APRN Glucose Monitoring (11/21/18-12/24/18) 11/22/2018 Telephone [facility] [address] [place] [address] Rojas Cunningham MD Diabetes (Milagro due ) 11/22/2018 3:00 PM EST Office Visit [facility] [address] [place] [address] Willa Garcia RN Uncontrolled type 2 diabetes mellitus with complication (HCC) (Primary Dx) 11/21/2018 Refill [facility] [address] [place] [address] Rojas Cunningham MD Medication Refill 11/20/2018 Social Work [facility] [address] [place] [phone] Jigna Dove, MALCOLM Referral Follow-up 11/20/2018 Patient Outreach [facility] [address] [place] [address] Sherrie Khan, pressure test operator 11/20/2018 1:50 PM EST Office Visit [facility] [address] [place] [phone] Rojas Cunningham MD Dyslipidemia associated with type 2 diabetes mellitus (HCC) (Primary Dx); Post-surgical hypothyroidism 11/14/2018 Telephone [facility] [address] [place] [phone] Rojas Cunningham MD Labs Only 11/13/2018 Telephone [facility] [address] [place], [place] [phone] Belia Specne APRN Labs Only 10/16/2018 Telephone [facility] [address] [place], [place] [phone] Rojas Cunningham MD Reschedule (10/24/18 appointment) 09/03/2018 Telephone [facility] [address] [place], [place] [phone] Belia Spence APRN Medication Refill 08/12/2018 Telephone [facility] [address] [place], [place] [phone] Rojas Cunningham MD Paperwork/forms (Office Notes) 07/22/2018 Telephone [facility] [address] [place] [address] Rosy Farmer, MIRACLEA Results 07/22/2018 Telephone [facility] [address] [place] [address] Nguyen Hays, CCMA Results 07/19/2018 10:20 AM EDT Office Visit [facility] [address] [place] [phone] Belia Spence APRN Uncontrolled type 2 diabetes mellitus with complication, with long-term current use of insulin (HCC) (Primary Dx); Dyslipidemia associated with type 2 diabetes mellitus (HCC); Post-surgical hypothyroidism; Uncontrolled type 2 diabetes mellitus with complication (HCC); Follicular thyroid cancer (HCC); Mixed dyslipidemia; Vitamin D deficiency; Statin intolerance; Fatty liver; Essential hypertension; Sleep apnea, unspecified type; S/P laparoscopic sleeve gastrectomy; MEIER (nonalcoholic steatohepatitis); Diabetic autonomic neuropathy associated with type 2 diabetes mellitus (HCC) 07/05/2018 11:50 AM EDT - 07/05/2018 11:59 PM EDT Hospital Encounter [facility] [address] [facility] [place] [address] S/P laparoscopic sleeve gastrectomy; Postsurgical malabsorption; Encounter for vitamin deficiency screening Discharge Disposition: Home or Self Care 07/05/2018 11:15 AM EDT Office Visit [facility] [address] [place] [address] Lauren Fraser APRN S/P laparoscopic sleeve gastrectomy (Primary Dx); Vitamin D deficiency; Uncontrolled type 2 diabetes mellitus with complication, with long-term current use of insulin (HCC); Mixed dyslipidemia; Gastroesophageal reflux disease without esophagitis; Postsurgical malabsorption; Encounter for vitamin deficiency screening 06/12/2018 Telephone [facility] [address] [address] [place], [place] [phone] Rojas Cunningham MD Labs Only 05/07/2018 Telephone [facility] [address] [address] [place] [phone] Belia Spence APRN Reschedule 05/03/2018 Telephone [facility] [address] [place] [phone] Rojas Cunningham MD Labs Only 04/15/2018 Telephone [facility] [address] [place] [phone] Rojas Cunningham MD Reschedule 04/03/2018 Refill [facility] [address] [place] [address] Gila Winter APRN Medication Refill 02/18/2018 Telephone [place] [phone] Rojas Cunningham MD Lab Orders 01/22/2018 Telephone [facility] [address] [place] [address] Fernando, Marielos Be[place] Mcfadden, RMA Results 01/07/2018 Telephone [facility] [address] [place] [address] Fernando, January Belem [facility], RMA Results 01/02/2018 8:49 AM EDT - 01/02/2018 11:59 PM EDT Hospital Encounter [facility] [address] [place] [address] Follicular thyroid cancer (HCC); Post-surgical hypothyroidism; Uncontrolled type 2 diabetes mellitus with complication, with long-term current use of insulin (HCC); S/P laparoscopic sleeve gastrectomy; Hypocalcemia Discharge Disposition: Home or Self Care 01/02/2018 10:00 AM EDT Office Visit [facility] [address] [address] Boy Brown MD Type 2 diabetes mellitus without retinopathy (HCC) (Primary Dx); KCS (keratoconjunctivitis sicca) (HCC); Contact dermatitis of right eyelid; Refractive error 12/27/2017 Telephone [facility] [address] [phone] Rojas Cunningham MD Medication Refill 12/20/2017 Telephone [facility] [address] [phone] Rojas Cunningham MD Samples 12/10/2017 2:15 PM EST Office Visit [facility] [address] [place] [address] Gila Winter APRN Class 2 severe obesity due to excess calories with serious comorbidity and body mass index (BMI) of 35.0 to 35.9 in adult (HCC) (Primary Dx); Follicular thyroid cancer (HCC); Post-surgical hypothyroidism; Uncontrolled type 2 diabetes mellitus with complication, with long-term current use of insulin (HCC); Hypocalcemia; Mixed dyslipidemia; Vitamin D deficiency; S/P laparoscopic sleeve gastrectomy; Essential hypertension; Sleep apnea, unspecified type; H/O heart artery stent; Gastroesophageal reflux disease, esophagitis presence not specified 12/06/2017 Telephone [place] [address] [facility] [address] [place] [address] Rojas Cunningham MD Results 12/03/[address] [facility] [address] Rojas Cunningham MD Results 11/29/2017 2:40 PM EST Office Visit [place] [address] [facility] [place] [address] Rojas Cunningham MD Uncontrolled type 2 diabetes mellitus with complication, with long-term current use of insulin ([facility]) (Primary Dx); Post-surgical hypothyroidism; Follicular thyroid cancer (HCC); Mixed dyslipidemia; Vitamin D deficiency 11/20/2017 Telephone [place] [address] [place] [address] Rojas Cunningham MD Glucose Monitoring (BSL ) 11/19/2017 Telephone [facility] [address] [place] [address] Rojas Cunningham MD Lab Orders 10/26/2017 Telephone [facility] [address] [place] [address] Rojas Cunningham MD Results 10/26/2017 Orders Only [place] [address] [place] [address] Rojas Cunningham MD Uncontrolled type 2 diabetes mellitus with complication, with long-term current use of insulin (HCC) (Primary Dx); Post-surgical hypothyroidism; Follicular thyroid cancer (HCC); Mixed dyslipidemia 10/24/2017 11:30 AM EST - 10/24/2017 11:59 PM EST Hospital Encounter [facility] [address] [place] [address] [address] [place] [address] Dyslipidemia associated with type 2 diabetes mellitus (HCC); Vitamin D deficiency; Post-surgical hypothyroidism Discharge Disposition: Home or Self Care 10/24/2017 10:50 AM EST Office Visit [address] [place] [address] Rojas Cunningham MD Uncontrolled type 2 diabetes mellitus with complication, with long-term current use of insulin (HCC) (Primary Dx); Post-surgical hypothyroidism; Mixed dyslipidemia; Vitamin D deficiency 10/22/2017 Telephone [place] [address] [address] [place] [address] Rojas Cunningham MD Reschedule 10/10/2017 Telephone [place] [address] Rojas Cunningham MD Samples 09/22/2017 Refill [place] [address] Rojas Cunningham MD Medication Refill 09/12/2017 Telephone [facility] [address] [place] [address] Rojas Cunningham MD Glucose Monitoring (Milagro inserted) 09/12/2017 Refill [facility] [address] [place] [address] Gila Winter APRN Medication Refill 09/12/2017 1:30 PM EST Office Visit [address] [place] [phone] Rojas Cunningham MD Dyslipidemia associated with type 2 diabetes mellitus (HCC) (Primary Dx); Follicular thyroid cancer (HCC); Post-surgical hypothyroidism; Vitamin D deficiency 09/07/2017 Telephone [facility] [address] [facility] [address] [place] [address] Rojas Cunningham MD Glucose Monitoring (BSL) 08/28/2017 Telephone [facility] [address] [facility] [address] [place] [address] Rojas Cunningham MD Glucose Monitoring (BSL) 08/28/2017 10:30 AM EST Office Visit [facility] [address] [place] [address] Gila Winter APRN Class 2 obesity due to excess calories with serious comorbidity and body mass index (BMI) of 37.0 to 37.9 in adult (Primary Dx); S/P laparoscopic sleeve gastrectomy; Uncontrolled type 2 diabetes mellitus with complication, with long-term current use of insulin (HCC); Mixed dyslipidemia; Essential hypertension; Sleep apnea, unspecified type; Gastroesophageal reflux disease, esophagitis presence not specified 08/11/2017 Refill [facility] [address] [place] [address] Gila Winter APRN Medication Refill (Carafate) 08/03/2017 Telephone [facility] [address] [place] [address] Boy Brown MD Medication Change 08/03/2017 10:15 AM EDT Office Visit [facility] [address] [phone] Boy Brown MD Contact dermatitis of right eyelid (Primary Dx); Allergic conjunctivitis of both eyes 08/02/2017 1:10 PM EDT Office Visit [facility] [address] [employer] [address] [place] [address] Rojas Cunningham MD Dyslipidemia associated with type 2 diabetes mellitus (HCC) (Primary Dx); Post-surgical hypothyroidism; Vitamin D deficiency 07/10/2017 Telephone [facility] [address] [place], [place] [phone] Rojas Cunningham MD Results ([facility]) 07/10/2017 2:00 PM EDT Office Visit [facility] [address] [place] [address] Jose Venegas, FREDDY Obesity, Class II, BMI 35-39.9, with comorbidity (Primary Dx) 07/03/2017 1:40 PM EDT Office Visit [facility] [address] [place], [place] [phone] Rojas Cunningham MD Dyslipidemia associated with type 2 diabetes mellitus (HCC) (Primary Dx); Vitamin D deficiency 07/03/2017 11:15 AM EDT Office Visit [facility] [address] [place] [address] Gila Winter APRN Class 2 obesity due to excess calories with serious comorbidity and body mass index (BMI) of 37.0 to 37.9 in adult (Primary Dx); Post-surgical hypothyroidism; Uncontrolled type 2 diabetes mellitus with complication, with long-term current use of insulin (HCC); Hypocalcemia; Mixed dyslipidemia; Vitamin D deficiency; S/P laparoscopic sleeve gastrectomy; Essential hypertension; Sleep apnea, unspecified type; Gastroesophageal reflux disease, esophagitis presence not specified 06/29/2017 Telephone [facility] [address] [place] [phone] Rojas Cunningham MD Medication Management 06/27/2017 Telephone [facility] [address] [place] [phone] Rojas Cunningham MD Lab Orders 06/22/2017 Telephone [facility] [address] [place] [phone] Rojas Cunningham MD Glucose Monitoring 06/22/2017 Telephone [facility] [address] [facility] [address] [place] [address] Rojas Cunningham MD Samples 06/21/2017 Telephone [facility] [address] [place] [address] Rosy Farmer CCMA Visit Follow Up (results) 06/21/2017 Telephone [facility] [address] [facility] [address] [place] [phone] Rojas Cunningham MD Medication Management 06/19/2017 Telephone [facility] [address] [facility] [address] [place] [phone] Rojas Cunningham MD Diabetes (High blood sugars) 06/14/2017 1:35 PM EDT - 06/14/2017 11:59 PM EDT Hospital Encounter [facility] [address] [place] [address] Leg cramps; Thiamine deficiency; S/P laparoscopic sleeve gastrectomy; Postsurgical malabsorption Discharge Disposition: Home or Self Care 06/14/2017 1:00 PM EDT Office Visit [facility] [address] [place] [address] Lauren Fraser APRN Leg cramps (Primary Dx); Thiamine deficiency; S/P laparoscopic sleeve gastrectomy; Postsurgical malabsorption; Essential hypertension; Uncontrolled type 2 diabetes mellitus with complication, with long-term current use of insulin (HCC); Sleep apnea, unspecified type 06/08/2017 Telephone [facility] [address] [place] [address] Marielos King RMA Results (Lab results ) 06/06/2017 1:50 PM EDT - 06/06/2017 11:59 PM EDT Hospital Encounter [facility] [address] [place] [address] Fever, unspecified fever cause; Cough; History of sleeve gastrectomy; Platelet inhibition due to Plavix Discharge Disposition: Home or Self Care 06/06/2017 1:15 PM EDT Office Visit [facility] [address] [place] [address] Gila Winter, ANJANA Fever, unspecified fever cause (Primary Dx); Cough; History of sleeve gastrectomy; Platelet inhibition due to Plavix; Gastroesophageal reflux disease, esophagitis presence not specified; Diarrhea of presumed infectious origin; Uncontrolled type 2 diabetes mellitus with complication, with long-term current use of insulin ([facility]); Class 2 obesity due to excess calories with serious comorbidity and body mass index (BMI) of 39.0 to 39.9 in adult; Mixed dyslipidemia; Essential hypertension; Sleep apnea, unspecified type; H/O heart artery stent; S/P laparoscopic sleeve gastrectomy 05/30/2017 7:47 AM EDT - 05/31/2017 3:22 PM EDT Hospital Encounter [facility] [address] [place] [address] Roxie Choi MD Discharge Disposition: Home or Self Care 05/30/2017 10:15 AM EDT - 05/30/2017 12:00 PM EDT Surgery [facility] [address] [place] [address] Roxie Choi MD LAPAROSCOPIC SLEEVE GASTRECTOMY POSSIBLE LAPAROSCOPIC HIATAL HERNIA REPAIR 05/30/2017 9:56 AM EDT Anesthesia Event [facility] [address] [place] [address] Mat Martinez MD Zehnder, Wende, ANJANA 05/23/2017 11:12 AM EDT - 05/23/2017 11:59 PM EDT Hospital Encounter [facility] [address] [place] [address] Pat, [facility] Preop testing (Primary Dx); Morbid obesity due to excess calories (HCC) Discharge Disposition: Home or Self Care 05/22/2017 Telephone [facility] [address] [place] [address] Rosy Farmer CCMA Visit Follow Up 05/21/2017 1:30 PM EDT Office Visit [facility] [address] [place] [address] Gila Winter APRN Coronary artery disease of [place] heart with stable angina pectoris, unspecified vessel or lesion type (Primary Dx); History of coronary artery stent placement; Morbid obesity (HCC); BMI 40.0-44.9, adult (HCC); Uncontrolled type 2 diabetes mellitus with complication, with long-term current use of insulin (HCC); Post-surgical hypothyroidism; Mixed dyslipidemia; Hypocalcemia; Fatty liver; Combined systolic and diastolic congestive heart failure, unspecified congestive heart failure chronicity (HCC); Vitamin D deficiency; Essential hypertension; Sleep apnea, unspecified type; MEIER (nonalcoholic steatohepatitis) 05/17/2017 5:00 PM EDT Office Visit [facility] [address] [place] [address] Ara Horn, RD,CDE Morbid obesity with BMI of 40.0-44.9, adult (HCC) (Primary Dx) 05/17/2017 11:00 AM EDT Office Visit [facility] [address] [place] [phone] Emre Houston MD Sleep apnea, unspecified type (Primary Dx); Uncontrolled type 2 diabetes mellitus with complication, with long-term current use of insulin (HCC); Essential hypertension; Morbid obesity due to excess calories (HCC); Chest pain, unspecified type; Combined systolic and diastolic congestive heart failure, unspecified congestive heart failure chronicity (HCC); Angina at rest; Vitamin D deficiency; Statin intolerance; Post-surgical hypothyroidism; Follicular thyroid cancer (HCC); Fatty liver; MEIER (nonalcoholic steatohepatitis); Morbid obesity with BMI of 40.0-44.9, adult (HCC) 05/11/[address] [place] [address] Rojas Cunningham MD Other 05/08/2017 Orders Only [facility] [address] [place] [address] Gila Winter APRN Vitamin deficiency (Primary Dx) 05/08/2017 Telephone [facility] [address] [place] [address] Evi Jones, Clerical Staff Other 05/03/2017 Telephone [facility] [address] [place] [address] Urmila Massey Other 05/03/2017 8:30 AM EDT Office Visit [facility] [address] [place] [address] Morbid obesity due to excess calories (HCC) (Primary Dx) 05/03/2017 11:00 AM EDT Office Visit [facility] [address] [place] [address] Ara Horn, RD,CDE Morbid obesity, unspecified obesity type (HCC) (Primary Dx); Morbid obesity with BMI of 40.0-44.9, adult (HCC) 04/26/2017 Telephone [facility] [address] [employer] [facility] [address] [place], [place] [phone] Rojas Cunningham MD Other (DM Shoes ) 04/18/2017 2:00 PM EDT Office Visit [facility] [address] [place] [address] Roxie Choi MD Morbid obesity with BMI of 40.0-44.9, adult (HCC) (Primary Dx) 04/16/2017 4:30 PM EDT Office Visit [facility] [address] [place] [address] Morbid obesity due to excess calories (HCC) (Primary Dx) 04/06/2017 Telephone [facility] [address] [employer] [facility] [address] [place] [phone] Rojas Cunningham MD Other (U-500 patient) 04/03/2017 9:00 AM EDT Office Visit [facility] [address] [place] [address] Gila Winter APRN Morbid obesity due to excess calories (HCC) (Primary Dx); BMI 40.0-44.9, adult (HCC); Fatty liver; MEIER (nonalcoholic steatohepatitis); Uncontrolled type 2 diabetes mellitus with complication, with long-term current use of insulin (HCC); Post-surgical hypothyroidism; Follicular thyroid cancer (HCC); Mixed dyslipidemia; Hypocalcemia; Congestive heart failure, unspecified congestive heart failure chronicity, unspecified congestive heart failure type; Vitamin D deficiency; Statin intolerance; Essential hypertension; Fibromyalgia; Sleep apnea, unspecified type; H/O heart artery stent; Angina at rest 03/30/2017 11:10 AM EDT - 03/30/2017 11:59 PM EDT Hospital Encounter [facility] [address] [place] [address] Morbid obesity due to excess calories (HCC); Weight gain Discharge Disposition: Home or Self Care 03/30/2017 9:00 AM EDT Office Visit [facility] [address] [place] [address] Vika Hunter, PHD Other specified eating disorder (Primary Dx); Major depressive disorder, recurrent episode, in partial remission; Generalized anxiety disorder; No diagnosis on [place] II; Morbid obesity due to excess calories (HCC); BMI 40.0-44.9, adult ([facility]) 03/26/2017 Telephone [facility] [address] [place] [address] FernandoJanuary TERESITA Burton Visit Follow Up (lab results) 03/19/2017 4:30 PM EDT Office Visit [facility] [address] [place] [address] Obesity (BMI 30-39.9) (Primary Dx) 03/13/2017 Orders Only [facility] [address] [place] [address] Gila Winter APRN Morbid obesity due to excess calories (HCC) (Primary Dx); Weight gain 03/12/2017 5:55 PM EDT - 03/12/2017 11:59 PM EDT Hospital Encounter [facility] [address] [place] [address] Weight gain; SATYA (obstructive sleep apnea); Uncontrolled type 2 diabetes mellitus with complication, with long-term current use of insulin (HCC); Morbid obesity due to excess calories (HCC); BMI 40.0-44.9, adult (HCC); Congestive heart failure, unspecified congestive heart failure chronicity, unspecified congestive heart failure type; Diverticulosis of intestine without bleeding, unspecified intestinal tract location; Pre-operative laboratory examination Discharge Disposition: Home or Self Care 03/12/2017 Telephone [facility] [address] [place] [phone] Rojas Cunningham MD Medication Management 03/12/2017 4:30 PM EDT Office Visit [facility] [address] [place] [address] Weight gain (Primary Dx) 03/06/2017 Telephone [facility] [address] [place] [phone] Rojas Cunningham MD Glucose Monitoring 03/06/2017 Telephone [facility] [address] [place] [phone] Rojas Cunningham MD Labs Only (question about labs) 03/06/2017 9:30 AM EDT Office Visit [facility] [address] [place] [address] Gila Winter APRN Weight gain (Primary Dx); SATYA (obstructive sleep apnea); Uncontrolled type 2 diabetes mellitus with complication, with long-term current use of insulin (HCC); Post-surgical hypothyroidism; Follicular thyroid cancer (HCC); Morbid obesity due to excess calories (HCC); BMI 40.0-44.9, adult (HCC); Mixed dyslipidemia; Congestive heart failure, unspecified congestive heart failure chronicity, unspecified congestive heart failure type; Vitamin D deficiency; Essential hypertension; H/O heart artery stent; Diverticulosis of intestine without bleeding, unspecified intestinal tract location; Encounter for nutrition evaluation prior to bariatric surgery; Encounter for pre-bariatric surgery counseling and education; Pre-operative laboratory examination; Hypocalcemia 03/06/2017 11:10 AM EDT Office Visit [facility] [address] [place] [address] Rojas Cunningham MD Uncontrolled type 2 diabetes mellitus without complication, with long-term current use of insulin (HCC) (Primary Dx); Vitamin D deficiency; Post-surgical hypothyroidism 01/31/2017 4:00 PM EDT Office Visit [facility] [address] [place] [address] 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, 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 [employer] History of weight gain (Primary Dx); Morbid obesity due to excess calories (HCC); BMI 40.0-44.9, adult (HCC) 01/26/2017 6:00 PM EDT Office Visit [facility] [address] [place] [phone] Morbid obesity due to excess calories ([facility]) 01/26/2017 Telephone [facility] [address] [place] [address] Urmila Massey Other 01/26/2017 10:10 AM EDT Office Visit [facility] [address] [place] [address] Clif Granado MD Uncontrolled type 2 diabetes mellitus with complication, with long-term current use of insulin ([facility]) (Primary Dx); Sleep apnea, unspecified type; Morbid obesity due to excess calories ([facility]) 01/08/2017 Refill [facility] [address] [place] [address] Rjoas Cunningham MD Medication Refill 01/02/2017 Telephone [facility] [address] [place], [place] [phone] Belia Spence APRN Results 11/27/2016 Telephone [facility] [address] [place] [phone] Belia Spence APRN Results (labs) 11/27/2016 1:20 PM EST Office Visit [facility] [address] Belia Spence APRN Mixed dyslipidemia (Primary Dx); Uncontrolled type 2 diabetes mellitus with complication, with long-term current use of insulin (HCC); Post-surgical hypothyroidism; Follicular thyroid cancer (HCC); Essential hypertension; Sleep apnea, unspecified type; Vitamin D deficiency; Morbid obesity with BMI of 45.0-49.9, adult (HCC) 10/31/2016 Telephone [facility] [address] [place] [address] Rojas Cunningham MD Labs Only 10/31/2016 Refill [facility] [address] [place] [address] Rojas Cunningham MD Medication Refill 10/06/2016 Telephone [facility] [address] [place] [address] Rojas Cunningham MD Cancellation 10/04/2016 Telephone [facility] [address] [place] [address] Rojas Cunningham MD Labs Only 08/28/2016 Telephone [facility] [address] [place] [address] Rojas Cunningham MD Results 08/22/2016 1:10 PM EST - 08/22/2016 11:59 PM EST Hospital En[facility] [address] [place] [address] Uncontrolled type 2 diabetes mellitus without complication, with long-term current use of insulin (HCC); Vitamin D deficiency; Mixed dyslipidemia; Post-surgical hypothyroidism; Follicular thyroid cancer (HCC) Discharge Disposition: Home or Self Care 08/22/2016 12:20 PM EST Office Visit [facility] [address] [address] Rojas Cunningham MD Uncontrolled type 2 diabetes mellitus without complication, with long-term current use of insulin (HCC) (Primary Dx); Follicular thyroid cancer (HCC); Post-surgical hypothyroidism; Mixed dyslipidemia; Vitamin D deficiency; Statin intolerance 08/21/2016 Telephone [facility] [address] [facility] [address] [place] [address] Rojas Cunningham MD Labs Only 08/18/2016 Telephone [facility] [address] [place] [address] Rojas Cunningham MD Labs Only (Reminder) 08/03/2016 Telephone [facility] [address] [place] [address] Rojas Cunningham MD Results 07/25/2016 Telephone [facility] [address] [place] [address] Rojas Cunningham MD Results (Body Scan) 07/14/2016 6:35 AM EDT - 07/14/2016 11:59 PM EDT Hospital Encounter [facility] [address] [place] [address] Malignant neoplasm of thyroid gland (HCC) (Primary Dx); Follicular thyroid cancer (HCC) Discharge Disposition: Home or Self Care 07/13/2016 Telephone [facility] [address] [place] [address] Rojas Cunningham MD Medical Release 06/02/2016 Telephone [facility] [address] [place] [address] Rojas Cunningham MD Results 06/02/2016 Telephone [facility] [address] [place] [address] Rojas Cunningham MD Other (I-123 ) 05/29/2016 1:35 PM EDT - 05/29/2016 11:59 PM EDT Hospital Encounter [facility] [address] [place] [address] Diabetes mellitus type 2, uncontrolled (HCC); Vitamin D deficiency; Postablative hypothyroidism; History of thyroid cancer Discharge Disposition: Home or Self Care 05/29/2016 12:10 PM EDT Office Visit [facility] [address] [place] [address] [place] [address] Rojas Cunningham MD Diabetes mellitus type 2, uncontrolled (HCC) (Primary Dx); Postablative hypothyroidism; History of thyroid cancer; Vitamin D deficiency 05/03/2016 Telephone [facility] [address] [place] [address] [place] [address] Rojas Cunningham MD Cancellation 02/03/2016 Telephone [facility] [address] [facility] [address] [place] [address] Rojas Cunningham MD Other (paperwork for test strips) 01/19/2016 Refill [facility] [address] [facility] [address] [place] [address] Rojas Cunningham MD Medication Refill 01/19/2016 10:40 AM EDT Office Visit [facility] [address] [facility] [address] [place] [address] Rojas Cunningham MD Diabetes mellitus type 2, uncontrolled (HCC) (Primary Dx); Primary hypothyroidism; Vitamin D deficiency 01/10/2016 Telephone [facility] [address] [facility] [address] [place] [phone] Rojas Cunningham MD Labs Only 01/06/2016 Refill [facility] [address] [facility] [address] [place] [address] Rojas Cunningham MD Medication Refill 01/04/2016 Telephone [facility] [address] [place] [address] Rojas Cunningham MD Procedure 12/15/2015 Telephone [facility] [address] [place] [address] Rojas Cunningham MD Other 12/10/2015 Telephone [facility] [address] [place] [address] Rojas Cunningham MD Cancellation 11/04/2015 Telephone [facility] [address] [place] [address] Rojas Cunningham MD Other (approval for [facility]) 09/16/2015 Telephone [facility] [address] [place] [address] Rojas Cunningham MD Lab Orders 09/16/2015 Refill [facility] [address] [place] [address] Rojas Cunningham MD Medication Refill 09/16/2015 Refill [facility] [address] [place] [address] Rojas Cunningham MD Medication Refill 08/26/2015 Telephone [facility] [address] [place] [address] Rojas Cunningham MD Reschedule 07/15/2015 Telephone [facility] [address] [place] [address] Rojas Cunningham MD Medication Management 06/22/2015 2:50 PM EDT Office Visit [facility] [address] [place] [address] Rojas Cunningham MD Diabetes mellitus type 2, uncontrolled (HCC) (Primary Dx); Mixed dyslipidemia; Vitamin D deficiency 06/15/2015 Telephone [facility] [address] [place] [address] Rojas Cunningham MD Labs Only 05/12/2015 Telephone [facility] [address] [place] [address] Rojas Cunningham MD Reschedule; Labs Only 04/14/2015 Refill [place] [address] [place] [address] Rojas Cunningham MD Medication Refill 02/09/2015 Telephone [place] [address] [place] [address] Rojas Cunningham MD Other (questions re:scripts) 02/09/2015 1:40 PM EDT Office Visit [place] [address] [place] [address] Rojas Cunningham MD Diabetes mellitus type 2, uncontrolled (HCC) (Primary Dx); Mixed dyslipidemia; Thyroid nodule; Vitamin D deficiency; Statin intolerance 02/08/2015 Telephone [facility] [address] [place] [address] Rojas Cunningham MD Labs Only 02/02/2015 Telephone [facility] [address] [place] [address] Rojas Cunningham MD Lab Orders 02/01/2015 Telephone [facility] [address] [place] [address] Rojas Cunningham MD Labs Only 01/15/2015 Telephone [facility] [address] [place] [address] Rojas Cunningham MD Reschedule 12/11/2014 Telephone [facility] [address] [place] [phone] Rojas Cunningham MD Medication Refill 11/09/2014 Telephone [facility] [address] [place] [phone] Rojas Cunningham MD Glucose Monitoring (BG logs) 11/03/2014 Telephone [facility] [address] [place] [phone] Rojas Cunningham MD Medication Management 10/26/2014 Telephone [facility] [address] [place] [phone] Rojas Cunningham MD Results 10/20/2014 1:20 PM EST Office Visit [facility] [address] [place] [phone] Rojas Cunningham MD Diabetes mellitus type 2, uncontrolled (HCC) (Primary Dx); Mixed dyslipidemia; Thyroid nodule; Vitamin D deficiency 10/15/2014 Telephone [facility] [address] [place] [phone] Rojas Cunningham MD Labs Only 10/13/2014 Telephone [facility] [address] [place] [phone] Rojas Cunningham MD Lab Orders 10/09/2014 Telephone [facility] [address] [place] [phone] Rojas Cunningham MD Labs Only 07/24/2014 Telephone [facility] [address] [place] [address] Rojas Cunningham MD Medication Management (U500 - resume) 07/16/2014 Telephone [facility] Diabetes [address] [facility] [address] [place] [address] Rojas Cunningham MD Medication Management 06/18/2014 Telephone [facility] [address] [facility] [address] [place] [address] Juanita Sims, RD,LD,CDE Diabetes (I pro interpretation U 500 Vgo 20) 06/11/2014 Telephone [facility] Diabetes [address] [place] [address] Shannan Wolfe RN,CDE Other (scalp lesions) 06/11/2014 2:40 PM EDT Office Visit [place] [address] Rojas Cunningham MD Diabetes mellitus type 2, uncontrolled (HCC) (Primary Dx); Mixed dyslipidemia; Vitamin D deficiency 06/04/[address] [facility] [address] [place] [address] Rojas Cunningham MD Medication Refill 05/29/2014 Telephone [facility] [address] [facility] [address] [place] [address] Rojas Cunningham MD Other (Pt.Asst/Senia) 05/13/2014 Telephone [facility] Diabetes [place] [address] [place] [address] Rojas Cunningham MD Glucose Monitoring 04/22/2014 Telephone [facility] [address] [place] [address] Rojas Cunningham MD Other (Vgo/U500) 04/13/2014 Telephone [facility] [address] [place] [phone] Rojas Cunningham MD Medication Management (Krys Cares form) 04/07/2014 Telephone [facility] [address] [facility] [address] [place] [phone] Shannan Keita, FREDDY,CDE Other 03/27/2014 Refill [facility] [address] [facility] [address] [place] [phone] Rojas Cunningham MD Medication Refill 03/19/2014 1:30 PM EDT Office Visit [facility] [address] [address] Boris May MD Diabetes mellitus type 2, uncontrolled (HCC) (Primary Dx); Myopic astigmatism, bilateral; Presbyopia OU; Dry eyes, bilateral 03/17/2014 3:00 PM EDT Office Visit [facility] [address] [address] Chris Serra MD Mixed dyslipidemia (Primary Dx); Hypertension; Chest pain 03/16/2014 Telephone [place] [address] [place] [phone] Rojas Cunningham MD Medication Management 03/12/2014 Telephone [facility] [address] [place] [phone] Rojas Cunningham MD Results 03/10/2014 12:00 PM EDT Office Visit [facility] [address] [phone] Rojas Cunningham MD Diabetes mellitus type 2, uncontrolled (HCC) (Primary Dx); Mixed dyslipidemia; Thyroid nodule; Vitamin D deficiency 03/05/2014 Telephone [facility] [address] [place], [place] [phone] Shannan Wolfe, RN,CDE Diabetes; Glucose Monitoring 03/04/2014 Telephone [facility] [address] [facility] [address] [place] [address] Rojas Cunningham MD Other ([facility] lab orders) 03/04/2014 Telephone [facility] [address] [facility] [address] [place], [place] [phone] Selma Kruger, BEST,CDE Diabetes (question) 03/03/2014 Telephone [facility] [address] [facility] [address] [place] [address] Rojas Cunningham MD Other (calling in BS) 02/16/2014 Telephone [facility] [address] [facility] [address] [place] [address] Rojas Cunningham MD Labs Only 02/11/2014 Telephone [facility] [address] [facility] [address] [place] [address] Rojas Cunningham MD Medication Management 02/10/2014 Telephone [facility] [address] [facility] [address] [place] [address] Priscilla Patel RN,CDE Insulin Titration (U500 start) 02/10/2014 11:20 AM EDT Office Visit [facility] [address] [facility] [address] [place] [phone] Rojas Cunningham MD Diabetes mellitus type 2, uncontrolled (HCC) (Primary Dx); Mixed dyslipidemia; Thyroid nodule; Vitamin D deficiency 01/30/2014 3:35 PM EDT - 01/30/2014 11:59 PM EDT Hospital Encounter [facility] [address] [place] [address] Vitamin D deficiency (Primary Dx); Diabetes mellitus type 2, uncontrolled (HCC); Thyroid nodule; Mixed dyslipidemia Discharge Disposition: Home or Self Care 01/30/2014 Telephone [place] [address] [place] [address] Rojas Cunningham MD Samples (Levemir/Novolog) 01/28/2014 Telephone [facility] [address] [place] [address] Rojas Cunningham MD Reschedule 12/26/2013 Telephone [place] [address] [place] [address] Rojas Cunningham MD Medication Management 12/25/2013 Telephone [place] [address] [place] [address] Rojas Cunningham MD Glucose Monitoring (download meter) 12/25/[address] [place] [address] Rojas Cunningham MD Samples (Levemir/Novolog) 12/16/[address] [place] [address] Rojas Cunningham MD Medication Management 12/11/2013 [place] [address] Chris Serra MD Medication Refill 12/11/2013 [place] [address] Chris Serra MD No Show 11/21/2013 Telephone [facility] [address] [place] [address] Rojas Cunningham MD Glucose Monitoring 11/19/[address] [place] [address] Rojas Cunningham MD Medication Management 11/03/2013 Telephone [facility] [address] [place] [address] Rojas Cunningham MD Medication Refill 10/31/2013 Telephone [place] [address] [address] [place] [address] Rojas Cunningham MD Reschedule 10/07/2013 11:20 AM EST Office Visit [place] [address] [address] [place] [address] Rojas Cunningham MD Diabetes mellitus type 2, uncontrolled (HCC) (Primary Dx); Mixed dyslipidemia; Vitamin D deficiency; Thyroid nodule 09/29/2013 12:25 PM EST - 09/29/2013 11:59 PM EST Hospital Encounter [facility] [place] [address] [address] [place] [address] Hyperlipidemia (Primary Dx); Diabetes mellitus type 2, uncontrolled (HCC); Thyroid nodule; Hypovitaminosis D Discharge Disposition: Home or Self Care 09/29/2013 Telephone [place] [address] [address] [place] [address] Rojas Cunningham MD Other (downloaded meter) 09/23/2013 Orders Only [place] [address] [address] [place] [address] Annie Han, joss house keeper mellitus type 2, uncontrolled (HCC) (Primary Dx) 09/23/2013 Telephone [facility] [address] [place] [address] Rojas Cunningham MD Medication Refill (URGENT) 09/08/2013 Telephone [facility] [address] [place] [address] Rojas Cunningham MD Other (blood sugar logs) 08/20/2013 Telephone [facility] [address] [place] [address] Rojas Cunningham MD Results 08/14/2013 12:25 PM EST - 08/14/2013 11:59 PM EST Hospital Encounter [facility] [address] [place] [address] Diabetes mellitus type 2, uncontrolled (HCC) (Primary Dx); Vitamin D deficiency; Mixed hyperlipidemia Discharge Disposition: Home or Self Care 08/14/2013 11:40 AM EST Office Visit [facility] [address] [place] [address] Rojas Cunningham MD Diabetes mellitus type 2, uncontrolled (HCC) (Primary Dx); Mixed hyperlipidemia; Vitamin D deficiency 08/11/2013 Telephone [facility] [address] [place] [address] Rojas Cunningham MD Labs Only 08/06/2013 Refill [facility] [address] [phone] Chris Serra MD Medication Refill 07/16/2013 Refill [facility] [address] [place] [phone] Rojas Cunningham MD Medication Refill 07/15/2013 Refill [place] [address] [place] [address] Rojas Cunningham MD Medication Refill 07/15/2013 Refill [facility] [address] [place] [place] [address] Joe Ambrosio MD Medication Refill 07/08/2013 Abstract [facility] [address] [place] [phone] Emerald Amato MA 07/02/2013 5:00 PM EDT [facility] [address] [address] Boris Sarmiento MD Leg cramps (Primary Dx) 07/02/2013 12:50 PM EDT Office Visit [facility] [address] [place] [address] Rojas Cunningham MD Diabetes mellitus type 2, uncontrolled (HCC) (Primary Dx); Vitamin d deficiency; Mixed hyperlipidemia 07/01/2013 Telephone [facility] [address] [place] [phone] Rojas Cunningham MD Follow-up 06/23/2013 2:40 PM EDT - 06/25/2013 2:37 PM EDT Hospital Encounter [facility] [place] [address] Boris Rodriguez MD Pilger, Jeffrey M, MD Upadhayay, Niraj, MD Hypertensive urgency (Primary Dx); Chest pain; Paresthesia; Sleep apnea; Diabetes mellitus type 2, uncontrolled (HCC); Facial droop; Fibromyalgia; Hyperlipidemia; Angina at rest; Hypertension; Unspecified essential hypertension; Chest pain, unspecified; Disturbance of skin sensation Discharge Disposition: Home or Self Care 06/23/2013 Telephone [facility] [place] [phone] Chris Serra MD Edema; Pain (neck/shoulder) 06/10/2013 9:15 AM EDT Office Visit [facility] [address] [address] Chris Serra MD Hyperlipidemia (Primary Dx); Hypertension; CHF (congestive heart failure) (HCC); Chest pain; Left sided numbness; Other screening mammogram 04/17/2013 11:30 AM EDT - 04/17/2013 11:59 PM EDT Hospital Encounter [facility] Sleep Disorder [facility] [address] [place] [address] Emre Houston MD Sleep apnea (Primary Dx); Fibromyalgia; Hyperlipidemia; Diabetes mellitus type 2, uncontrolled (HCC); Hypertension; Obesity; Chest pain; Left sided numbness; CHF (congestive heart failure) (HCC) Discharge Disposition: Home or Self Care 04/16/2013 [facility]phone [facility] [address] [place] [address] Asha Ambrocio MA Other 03/28/2013 11:20 AM EDT Office [place] [facility] [place] [address] [place] [address] Boris Sarmiento MD Abscess of groin, left (Primary Dx) 02/18/2013 Refill [facility] &[address] [address] Chris Serra MD Medication Refill 02/18/2013 Refill [facility] [address] [facility] [place] [address] Lonnie Dotson MD Medication Refill 02/06/2013 9:20 AM EDT Office Visit [facility] [place] [address] [address] Boris Sarmiento MD Sore throat (Primary Dx); Cervical lymphadenopathy; Viral gastroenteritis 01/22/2013 1:15 PM EDT Office Visit [facility] [address] Chris Serra MD Hypertension (Primary Dx); CHF (congestive heart failure) (HCC); Hyperlipidemia; Fibromyalgia; Chest pain 01/14/2013 Telephone [facility] [place] [address] [place] [address] Boris Sarmiento MD Visit Follow Up 01/10/2013 11:10 AM EDT Office Visit [facility] [place] [address] [place] [address] Boris Sarmiento MD Diabetes mellitus type 2, uncontrolled (HCC) (Primary Dx); Hypertension; Hyperlipidemia; CHF (congestive heart failure) (HCC); Headache 01/01/2013 6:05 PM EDT - 01/05/2013 1:55 PM EDT Hospital Encounter [facility] [place] [address] Boris Riavs MD Connelly, Kevin D, MD Jarkani, Ashok P, MD Chest pain (Primary Dx); Diabetes mellitus (HCC); Anxiety; Diabetes mellitus type 2, uncontrolled (HCC); Migraine; Obesity; Fibromyalgia; Left sided numbness; Headache; Type I (juvenile type) diabetes mellitus without mention of complication, not stated as uncontrolled (HCC) Discharge Disposition: Home or Self Care 01/03/2013 9:00 AM EDT - 01/03/2013 10:00 AM EDT Surgery Chris Serra MD CARDIAC PROCEDURE-GUEST SERVICES COORDINATOR ONLY 12/11/2012 Telephone [facility] Diabetes [place] [address] [address] [place] [phone] Rojas Cunningham MD Labs Only 11/14/2012 Telephone [place] [address] [place] [address] Rojas Cunningham MD Wound Infection 09/25/2012 Telephone [place] [address] [place] [phone] Rojas Cunningham MD Other (report blood sugar) 09/24/2012 9:00 AM EST - 09/24/2012 11:59 PM [facility] Hospital Encounter [facility] Sleep Disorder [address] [place] [phone] Emre Houston MD Sleep apnea (Primary Dx); Fibromyalgia; Hyperlipidemia; Diabetes mellitus type 2, uncontrolled (HCC); Hypertension; Obesity Discharge Disposition: Home or Self Care 09/13/2012 Telephone [place] [address] [place] [address],CDE Other (bs logs) 09/06/2012 Telephone [place] [address] [place] [address],LD,CDE Diabetes (U 500) 08/26/2012 Telephone [place] [address] [place] [address] Rojas Cunningham MD Medication Problem 08/13/2012 Telephone [place] [address] [place] [address] Rojas Cunningham MD Medication Management 08/12/2012 Telephone [place] [address] [place] [address] Willa Genao, RN,CDE Medication Management 08/12/2012 Telephone [place] [address] [place] [address] Willa Genao, RN,CDE Medication Management 08/12/2012 11:00 AM EST Office Visit [place] [address] [place] [address] Rojas Cunningham MD Diabetes mellitus type 2, uncontrolled (HCC) (Primary Dx); Vitamin d deficiency; Hyperlipidemia; Thyroid nodule 08/09/2012 1:40 PM EDT - 08/09/2012 11:59 PM EDT Hospital Encounter [facility] [address] [place] [address] Diabetes mellitus type 2, uncontrolled (HCC); Hyperlipidemia; Vitamin d deficiency Discharge Disposition: Home or Self Care 08/06/2012 Telephone [place] [address] [place] [address] Rojas Cunningham MD Labs Only 07/31/2012 Telephone [place] [address] [place] [address] Juanita Schuster, FREDDY,LD,CDE Diabetes (blood sugar logs) 07/23/2012 Telephone [facility] [address] [place] [address] Shannan Wolfe RN,CDE Other 07/15/2012 7:10 PM EDT - 07/15/2012 10:48 PM EDT Emergency [facility] [address] [place], [place] [address] Billie Bueno MD Abdominal pain, other specified site; Vomiting alone; Unspecified essential hypertension; Type II or unspecified type diabetes mellitus without mention of complication, not stated as uncontrolled (HCC) Discharge Disposition: Home or Self Care 06/25/2012 Telephone [facility] Diabetes [place] [address] [address] [place] [phone] Shannan Wolfe RN,CDE Diabetes 06/25/2012 9:45 AM EDT - 06/25/2012 11:59 PM EDT Hospital Encounter [facility] Sleep Disorder Center [address] [place] [address] Emre Houston MD Sleep apnea (Primary Dx); Fibromyalgia; Hyperlipidemia; Diabetes mellitus type 2, uncontrolled (HCC); Hypertension; Obesity Discharge Disposition: Home or Self Care 06/16/2012 11:47 AM EDT - 06/16/2012 12:21 PM EDT Emergency [facility] [address] [place] [address] Sadi Joe MD Plantar fasciitis; Peripheral neuropathy Discharge Disposition: Home or Self Care 06/05/2012 Telephone [facility] Diabetes [place] [address] [address] [place] [phone] Rojas Cunningham MD Other (error) 06/04/2012 Telephone [facility] Diabetes [place] [address] [address] [place] [phone] Willa Genao RN,CDE Blood Sugar Problem 05/30/2012 Telephone [facility] Diabetes [place] [address] [place] [address] Shannan Wolfe RN,CDE Blood Sugar Problem 05/22/2012 Telephone [facility] Diabetes [place] [address] [place] [address] Willa Genao RN,CDE Other (Order new test strips) 05/22/2012 Telephone [facility] Diabetes [place] [address] [place] [address] Willa Genao RN,CDE Medication Management 05/01/2012 Telephone [facility] [place] [address] [place] [address] Rojas Cunningham MD Results 04/28/2012 7:00 PM EDT - 04/28/2012 11:59 PM EDT Hospital Encounter [facility] Sleep Disorder [address] [place] [phone] Obstructive sleep apnea (Primary Dx) Discharge Disposition: Home or Self Care 04/25/2012 12:32 PM EDT - 04/25/2012 11:59 PM EDT Hospital Encounter [facility] [address] [place] [address] Tristan Ron MD Dysphagia Discharge Disposition: Home or Self Care 04/23/2012 9:14 AM EDT - 04/23/2012 11:59 PM EDT Hospital Encounter [facility] Sleep Disorder [place] [phone] Emre Houston MD Sleep apnea (Primary Dx); Obesity; Fibromyalgia; Diabetes mellitus type 2, uncontrolled (HCC); Hypertension; Poor sleep hygiene Discharge Disposition: Home or Self Care 04/18/2012 Telephone [facility] [address] [place] [address] Aimee Noel RMA Results 04/15/2012 9:00 AM EDT - 04/15/2012 11:59 PM EDT Hospital Encounter [facility] [address] [place] [address] Tristan Ron MD Thyroid mass Discharge Disposition: Home or Self Care 04/10/2012 7:00 PM EDT - 04/10/2012 11:59 PM EDT Hospital Encounter [facility] Sleep Disorder [address] [address] Obstructive sleep apnea (Primary Dx) Discharge Disposition: Home or Self Care 04/09/2012 Telephone [facility] [address] [place] [address] EnglandTiffany espinosa CMA Medication Management 04/09/2012 9:45 AM EDT - 04/09/2012 11:59 PM EDT Hospital Encounter [facility] Sleep Disorder Center [address] [place] [address] Emre Houston MD Discharge Disposition: Home or Self Care 04/08/2012 8:37 AM EDT - 04/08/2012 11:59 PM EDT Hospital Encounter [facility] [address] [place] [address] Joe Ambrosio MD Dysarthria; Facial weakness Discharge Disposition: Home or Self Care 04/03/2012 10:35 AM EDT - 04/03/2012 11:59 PM EDT Hospital Encounter [facility] [address] [place] [address] Diabetes mellitus type 2, uncontrolled (HCC); Vitamin D deficiency; FHx: early coronary artery disease; Thyroid nodule Discharge Disposition: Home or Self Care 04/03/2012 9:40 AM EDT Office Visit [facility] Diabetes [place] [address] [place] [address] Rojas Cunningham MD Diabetes mellitus type 2, uncontrolled (HCC) (Primary Dx); Thyroid nodule; Vitamin D deficiency; FHx: early coronary artery disease 04/02/2012 10:50 AM EDT - 04/02/2012 11:59 PM EDT Hospital Encounter [facility] [address] [place] [phone] Diabetes mellitus type 2, uncontrolled (HCC); Hyperlipidemia; Hypertension; Obesity; Thyroid nodule Discharge Disposition: Home or Self Care 04/01/2012 Telephone [facility] [address] [place] [address] Joe Ambrosio MD Medication Change 04/01/2012 Telephone [facility] [address] [place] [address] Rojas Cunningham MD Labs Only 04/01/2012 11:00 AM EDT Office Visit [facility] [address] [place] [address] Joe Ambrosio MD Migraine; Obesity; Fibromyalgia; Hypertension; Diabetes mellitus type 2, uncontrolled (HCC); Hyperlipidemia; Sleep apnea; Dysarthria; Facial weakness 02/29/2012 Telephone [place] [address] [place] [address] Ara Howell APRN Medication Management (?refill for Bentyl?) 02/19/2012 2:32 PM EDT - 02/19/2012 5:35 PM EDT Emergency [facility] [place] [address] Kyle Cortez MD Gastroenteritis Discharge Disposition: Home or Self Care 02/13/2012 11:12 AM EDT - 02/13/2012 11:59 PM EDT Hospital Encounter [facility] [address] [place] [address] Georgette Isbell Demyelinating disease of central nervous system, unspecified (HCC) Discharge Disposition: Home or Self Care 02/01/2012 1:15 PM EDT - 02/01/2012 11:59 PM EDT Hospital Encounter [facility] [address] [place] [phone] Arely Karimi MD Sarcoidosis Discharge Disposition: Home or Self Care 01/31/2012 Telephone [place] [address] [place] [address] Armando Chaves MD Release of Information 01/24/2012 1:00 PM EDT Office Visit [place] [address] [place] [address] Juanita Schuster, RD,LD,CDE Diabetes mellitus type 2, uncontrolled (HCC) (Primary Dx) 01/11/2012 Telephone [facility] Diabetes [place] [address] [place] [address] Armando Chaves MD Results 01/11/2012 1:30 PM EDT Office Visit [facility] Diabetes [place] [address] [place] [address] Michela Morton RN,CDE Diabetes mellitus type 2, uncontrolled (HCC); Hyperlipidemia; Hypertension; Obesity; Thyroid nodule 01/05/2012 Telephone [facility] [address] [place] [address] Armando Chaves MD Medication Refill 01/05/2012 Telephone [facility] [address] [place] [address] Ara Howell APRN Results 01/04/2012 11:05 AM EDT - 01/04/2012 11:59 PM EDT Hospital Encounter [facility] [address] [place] [address] Diabetes mellitus type 2, uncontrolled (HCC); Hyperlipidemia; Hypertension; Obesity; Hot flashes Discharge Disposition: Home or Self Care 12/29/2011 Telephone [facility] [address] [place] [address] Tanvi Guy Referral (Diabetes Education) 12/28/2011 3:10 PM EDT Office Visit [facility] [address] [place] [address] Ara Howell APRN Diabetes mellitus type 2, uncontrolled (HCC); Hyperlipidemia; Hypertension; Obesity; Thyroid nodule 12/26/2011 Telephone [facility] [address] [place] [address] Armando Chaves MD Labs Only 11/22/2011 9:55 AM EST - 11/22/2011 11:59 PM EST Hospital Encounter [facility] [place] [address] Georgette Isbell Chest pain, unspecified Discharge Disposition: Home or Self Care 11/09/2011 10:14 PM EST - 11/10/2011 2:20 AM EST Emergency [facility] [address] [place] [address] Cal Pate MD Abdominal pain Discharge Disposition: Home or Self Care 11/02/2011 Telephone [facility] [address] [place] [address] Harper Mcgrath MD Follow-up 09/15/2011 7:30 AM EST - 09/15/2011 11:59 PM EST Hospital Encounter [facility] Hand [address] [place] [address] Emerald Yan PT CHT Discharge Disposition: Home or Self Care 09/11/2011 Telephone [facility] [address] [place] [address] Michela Morton, RN,CDE Other (log) 08/25/2011 1:00 PM EST - 08/25/2011 11:59 PM EST Hospital Encounter [facility] [place] [address] Tristan Ron MD Thyroid mass Discharge Disposition: Home or Self Care 08/24/2011 Telephone [facility] [address] [place] [address] Michela Morton, BEST,CDE Other (log) 08/18/2011 8:40 AM EST Office Visit [facility] [address] [place] [address] Harper Mcgrath MD Diabetes mellitus type 2, uncontrolled (HCC) (Primary Dx); Hyperlipidemia; Hypertension; Obesity; Hot flashes 08/16/2011 1:45 PM EST - 08/16/2011 11:59 PM EST Hospital Encounter [facility] [address] [place] [phone] Tristan Ron MD Thyroid mass Discharge Disposition: Home or Self Care 07/25/2011 1:30 PM EDT Office Visit [facility] [address] [place] [address] Michela Morton RN,CDE Diabetes mellitus type 2, uncontrolled (HCC) 07/18/2011 1:30 PM EDT Office Visit [facility] Diabetes [facility] [address] [place] [address] Michela Morton BEST,CDE Diabetes mellitus type 2, uncontrolled (HCC) (Primary Dx) 07/11/2011 1:30 PM EDT Office Visit [facility] [address] [place] [address],LD,CDE Diabetes mellitus type 2, uncontrolled (HCC) (Primary Dx) 07/06/2011 8:45 AM EDT - 07/06/2011 9:00 AM EDT Surgery [facility] [place] [address] Edyta Chun MD CARPAL TUNNEL RELEASE 07/06/2011 5:45 AM EDT - 07/06/2011 9:05 AM EDT Hospital Encounter [facility] [place] [address] Edyta Chun MD Discharge Disposition: Home or Self Care 06/27/2011 Telephone [facility] [address] [place] [address] Rachael Carvalho RN Blood Sugar Problem 06/27/2011 10:10 AM EDT Office Visit [facility] [address] [place] [address],CDE Diabetes mellitus type 2, uncontrolled (HCC) 06/14/2011 10:45 AM EDT - 06/14/2011 11:59 PM EDT Hospital Encounter [facility] [place] [address] Hyperlipidemia; Hypertension; Hot flashes; Diabetes mellitus type 2, uncontrolled (HCC) Discharge Disposition: Home or Self Care 05/31/2011 9:00 AM EDT Office Visit [facility] Diabetes [facility] [address] [place] [address] Harper Mcgrath MD Diabetes mellitus type 2, uncontrolled (HCC) (Primary Dx); Hot flashes; Hyperlipidemia; Hypertension; Obesity 05/25/2011 3:11 PM EDT - 05/25/2011 11:59 PM EDT Hospital Encounter [facility] [address] [place] [address] Mendel Resendiz DO Carpal tunnel syndrome Discharge Disposition: Home or Self Care 05/25/2011 1:55 PM EDT - 05/25/2011 3:10 PM EDT Hospital Encounter [facility] [address] [place] [address] Mendel Resendiz, Disturbance of skin sensation; Blurred vision; Urinary incontinence Discharge Disposition: Home or Self Care 05/11/2011 1:46 PM EDT - 05/11/2011 11:59 PM EDT Hospital Encounter [facility] [address] [place] [address] Wiley Garza MD Stone Discharge Disposition: Home or Self Care 05/11/2011 1:45 PM EDT Hospital Encounter [facility] [address] [place] [address] Wiley Garza MD Back pain; History of kidney stones; Flank pain Discharge Disposition: Home or Self Care 12/27/2010 1:45 PM EDT - 12/27/2010 2:40 PM EDT Surgery [facility] [address] [place] [address] Wiley Garza MD CYSTOSCOPY BLADDER /URETHRA BIOPSY 12/27/2010 11:49 AM EDT - 12/27/2010 4:57 PM EDT Hospital Encounter [facility] SAME DAY SURG[facility] [address] [place] [address] Wiley Garza MD Discharge Disposition: Home or Self Care 12/23/2010 10:00 AM EDT - 12/23/2010 11:59 PM EDT Hospital Encounter [facility] PRE-ADMIT TEST[facility] [address] [place] [address] Pat, Ritu Discharge Disposition: Home or Self Care 11/29/2010 9:11 AM EST - 11/29/2010 11:59 PM EST Hospital Encounter [facility] [address] [place] [address] Mendel Resendiz DO Pyelonephritis, unspecified; Abdominal pain, unspecified site; Abdominal pain, right upper quadrant; Other abnormal blood chemistry Discharge Disposition: Home or Self Care 11/25/2010 12:37 AM EST - 11/25/2010 3:54 AM EST Emergency [facility] [address] [place] [address] Mahesh Page MD Pyelonephritis; Elevated liver function tests; Abdominal pain, right upper quadrant; Right flank pain Discharge Disposition: Home or Self Care 11/11/2010 2:30 PM EST - 11/11/2010 11:59 PM EST Hospital Encounter [facility] [address] [place] [id number] Wiley Garza MD Pain Discharge Disposition: Home or Self Care 07/18/2010 2:43 PM EDT - 07/19/2010 6:44 PM EDT Hospital Encounter [facility] [address] [place] [address] Mahesh Page MD Laib, Emily A, MD Chest pain; Hyperglycemia; Dyspnea Discharge Disposition: Home or Self Care 11/05/2009 - 11/05/2009 11:59 PM EST Hospital Encounter [facility] MEDICIN [facility] Discharge Disposition: Home or Self Care 10/20/2009 7:08 AM EST - 10/20/2009 9:55 AM EST Hospital Encounter [facility] Lisandro Ruano MD 10/11/2009 8:08 AM EST - 10/11/2009 3:00 PM EST Hospital Encounter [facility] Wiley Chadwick MD 09/08/2009 5:29 PM EST - 09/09/2009 6:30 PM EST Hospital Encounter [facility] W4SE Edyta Tilley MD Hollis, Robert E., MD 08/30/2009 6:00 AM EST - 08/30/2009 11:30 AM EST Hospital Encounter [facility] WSDS Mahesh Rodgers 08/01/2009 1:50 PM EDT - 08/01/2009 4:09 PM EDT Emergency [facility] ER [facility] Fede Paris MD 08/10/2004 10:48 AM EST - 08/10/2004 2:30 PM EST Hospital Encounter [facility] 4C1 Cristino Purcell MD 07/07/2004 8:49 AM EDT - 07/07/2004 11:59 PM EDT Hospital Encounter [facility] LAB EDG Santana Santos 04/01/2004 Hospital Encounter [facility] Generic, Historical Provider 02/28/2004 Hospital Encounter [facility] Generic, Historical Provider 02/07/2004 Hospital Encounter [facility] Generic, Historical Provider 11/18/2003 6:49 PM EST - 11/18/2003 11:40 PM EST Emergency [facility] EPIC CON UNK EDG Judson Gallegos MD 11/16/2003 5:00 PM EST - 11/16/2003 8:13 PM EST Emergency [facility] ER [facility] Generic, Historical Provider 07/15/2003 6:48 AM EDT - 07/15/2003 11:59 PM EDT Hospital Encounter [facility] WOMENS OP EDG Navarro Houston MD 01/20/2002 4:04 PM EDT - 01/20/2002 11:59 PM EDT Hospital Encounter [facility] RADIOLOGY EDG Michael Barr MD 02/20/2001 8:19 AM EDT - 02/20/2001 11:59 PM EDT Hospital Encounter [facility] LAB EDG Avery Landaverde MD 01/11/2001 11:01 AM EDT - 01/11/2001 11:59 PM EDT Hospital Encounter [facility] LAB EDG Kyle Anderson MD 01/07/2001 9:54 AM EDT - 01/07/2001 11:59 PM EDT Hospital Encounter [facility] ENDOSCOPY COV Kyle Anderson MD 12/17/2000 6:05 AM EST - 12/17/2000 11:59 PM EST Hospital Encounter [facility] RADIOLOGY EDG Carlos Eduardo Resendiz MD 05/04/2000 9:56 AM EDT - 05/04/2000 11:59 PM EDT Hospital Encounter [facility] RADIOLOGY EDG Carlos Eduardo Resendiz MD 09/13/1999 6:02 AM EST - 09/13/1999 11:59 PM EST Hospital Encounter HST EK4 EDG Carlos Eduardo Resendiz MD 05/19/1999 2:09 AM EDT - 05/21/1999 3:09 PM EDT Hospital Encounter HST 2A [place] Santos 05/13/1999 8:06 AM EDT - 05/13/1999 11:59 PM EDT Hospital Encounter HST LXE EDG aSntana Santos 04/13/1999 6:08 AM EDT - 04/13/1999 11:59 PM EDT Hospital Encounter [facility] EPIC CON UNK EDG Santana Santos 08/27/1998 3:03 PM EST - 10/01/1998 Hospital Encounter HST SPM EDG Matthieu Rosales MD 06/21/1998 12:21 PM EDT - 06/22/1998 10:30 AM EDT Hospital Encounter [facility] 2CO Matthieu Rosales MD 12/02/1997 10:34 AM EST - 12/02/1997 11:59 PM EST Hospital Encounter [facility] RADIOLOGY EDG Mat Isaac MD 10/28/1997 8:27 AM EST - 10/28/1997 11:59 PM EST Hospital Encounter [facility] RADIOLOGY EDG Cristino Purcell MD 02/25/1997 3:18 PM EDT - 03/02/1997 10:55 AM EDT Hospital Encounter HST 1B TcScottie centeno MD [place], Howard L 02/03/1997 8:01 AM EDT - 02/03/1997 11:59 PM EDT Hospital Encounter [facility] EPIC CON UNK EDG Trent Bella MD 01/22/1997 5:34 AM EDT - 01/22/1997 11:59 PM EDT Hospital Encounter [facility] EPIC CON UNK EDG Mat Isaac MD 01/02/1997 8:33 AM EST - 01/02/1997 11:59 PM EST Hospital Encounter [facility] EPIC CON UNK EDG Trent Bella MD 10/16/1995 9:18 PM EST - 10/16/1995 11:59 PM EST Hospital Encounter [facility] EPIC CON UNK EDG TcScottie centeno MD 09/18/1994 12:35 AM EST - 09/19/1994 7:27 PM EST [facility] 09/15/1994 12:33 PM EST - 09/15/1994 11:59 PM EST Hospital Encounter [facility] 08/30/1994 10:59 AM EST - 08/30/1994 4:50 PM EST Hospital Encounter [facility] 08/11/1994 5:37 AM EST - 08/11/1994 11:59 PM EST Hospital Encounter [facility] EPIC CON UNK EDG Darrian-Griselda Miller MD 07/25/1994 5:52 AM EDT - 07/25/1994 11:59 PM EDT Hospital Encounter [facility] EPIC CON UNK EDG Griselda Herrera MD 05/09/1994 10:12 PM EDT - 05/09/1994 11:59 PM EDT Emergency [facility] EPIC CON UNK EDG MonicoChrisDO 10/04/1993 9:18 AM EST - 10/04/1993 6:20 PM EST Hospital Encounter HST JOSEPH TomSantana 09/06/1993 12:44 PM EST - 09/06/1993 11:59 PM EST Hospital Encounter [facility] EPIC CON UNK EDG Boris Pitts MD Allergies Active Allergy Reactions Criticality Noted Date Comments Metformin Hives High 07/18/2010 Difficulty breathing Soy Anaphylaxis High 07/18/2010 ALL BEANS ALSO=GREENBEANS ETC Codeine Itching 06/20/2011 Beta-Blockers (Beta-Adrenergic Blocking Agts) Shortness Of Breath High 11/09/2011 Patient is not sure of this allergy. She says that she though cozaar and lisinopril were beta blockers. Patient tolerates carvedilol. Rosuvastatin 12/28/2011 Elevated liver enzymes Tawnya Inhibitors Shortness Of Breath High 01/02/2013 Arb-Angiotensin Receptor Antagonist High 01/02/2013 Patient tolerates losartan Pregabalin Anxiety 01/26/2017 Pioglitazone Shortness Of Breath 01/26/2017 Gabapentin Other (See Comments) 01/26/2017 Weight gain Lisinopril Cough 01/26/2017 Medications albuterol (PROVENTIL;VENTOLI N) 90 mcg/Actuation inhaler Inhale 2 Puffs into the lungs every 6 hours as needed for Wheezing. Active nitroGLYCERIN (NITROSTAT) 0.[address] 1 Tab under the tongue every 5 minutes as needed for Chest pain. 25 Tab 3 03/17/20 14 Active Additional Information Patient not taking.Reason: Pt electing to not take the medication, Reported on 02/23/2025 clopidogrel (PLAVIX) 75 mg Oral Tablet Take 75 mg by mouth daily. Take 1 tablet at bedtime. Active pravastatin (PRAVACHOL) 20 mg Oral Tablet Take 1 Tab by mouth nightly. 01/10/20 16 Active isosorbide mononitrate (IMDUR) 30 mg Oral Tablet Sustained Release 24 hr Take 1 Tab by mouth nightly. 08/19/20 16 Active losartan (COZAAR) 25 mg Oral Tablet Take 1 Tab by mouth nightly. 08/04/20 16 Active methocarbamol (ROBAXIN) 500 mg Oral Tablet Take 500 mg by mouth 4 times daily. Active NEXIUM 40 mg Oral Capsule, Delayed Release(E.C.) Take 1 Tab by mouth daily. Reported on 03/06/2017 08/04/20 16 Active ADULT LOW DOSE ASPIRIN ORAL Take 81 mg by mouth daily. Active ondansetron (ZOFRAN) 4 mg Oral Tablet Reported on 03/07/2017 11/07/19 17 Active citalopram (CELEXA) 20 mg Oral Tablet Take 40 mg by mouth daily. 11/02/19 17 Active ACETAMINOPHEN (ARTHRITIS PAIN RELIEVER ORAL) Take by mouth. Active pediatric multivitamin Oral Tablet, Chewable Take 1 Tab by mouth daily (with breakfast). Active hydrOXYzine (ATARAX) 25 mg Oral Tablet Take 50 mg by mouth 3 times daily. Active fexofenadine (ROSENDO) 180 mg Oral Tablet 2 07/05/20 17 Active traMADol (ULTRAM) 50 mg Oral Tablet 07/05/20 17 Active olopatadine 0.7 % Opht Drops Place 1 Drop into both eyes daily. 2.5 mL 5 08/03/20 17 Active Additional Information Patient not taking.Reason: Pt electing to not take the medication, Reported on 02/23/2025 loteprednol etabonate (LOTEMAX) 0.5 % Opht Ointment Apply 0.5 Strips to eye nightly. Instill one half inch strip. 1 Tube 2 08/03/20 17 Active Additional Information Patient not taking.Reason: Pt electing to not take the medication, Reported on 02/23/2025 CALCIUM CITRATE/VITAMIN D3 (CALCIUM CITRATE + D ORAL) Take by mouth. Activ e mupirocin (BACTROBAN) 2 % Nasl Ointment by Nasal route 2 times daily. Active L GASSERI/B BIFIDUM/B LONGUM ([facility] ORAL) Take by mouth. Ac tive Eflornithine 13.9 % Top Cream Apply daily as directed 30 g 5 09/12/20 17 Active Additional Information Patient not taking.Reason: Pt electing to not take the medication, Reported on 02/23/2025 famotidine (PEPCID) 20 mg Oral Tablet Take 20 mg by mouth 2 times daily. Active carvedilol (COREG) 12.5 mg Oral Tablet Take 6.25 mg by mouth 2 times daily. 3 10/17/19 18 Active cycloSPORINE (RESTASIS) 0.05 % Opht Dropperette Place 1 Drop into both eyes 2 times daily. 60 Vial 5 01/03/20 18 Active sucralfate (CARAFATE) 1 gram Oral TabletIndications: Gastroesophageal reflux disease, esophagitis presence not specified DISSOLVE 1 TABLET IN 2 TABLESPOONS OF WATER, STIR AND TAKE LIQUID FOUR TIMES A DAY 120 Tab 1 04/03/20 18 Active Additional Information Patient not taking.Reason: Pt electing to not take the medication, Reported on 02/23/2025 montelukast (SINGULAIR) 10 mg Oral Tablet Take 10 mg by mouth daily. 06/11/20 18 Active fluticasone (FLONASE) 50 mcg/actuation Nasl [place], Suspension 06/25/20 18 Active EPINEPHrine (EPIPEN) 0.3 mg/0.3 mL Inj Auto-Injector 04/02/20 18 Active UNABLE TO FIND Med Name: Hemp Active UNABLE TO FIND Med Name: thermofight X keto Active 21/iron fu/folic acid ( COMPLETE ORAL) Take by mouth. Activ e cyclobenzaprine (FLEXERIL) 10 mg Oral Tablet 07/13/20 20 Active meloxicam (MOBIC) 15 mg Oral Tablet Take 15 mg by mouth daily. 09/13/20 20 Active divalproex (DEPAKOTE) 250 mg Oral Tablet, Delayed Release (E.C.) TAKE 1 TABLET BY MOUTH TWICE DAILY FOR ONE (1) WEEK THEN TWO (2) TABLETS TWICE DAILY THEREAFTER 10/18/19 21 Active Lancing Device Misc MiscIndications:Dy slipidemia associated with type 2 diabetes mellitus (HCC) 1 Each by Misc.(Non-Drug; Combo Route) route 3 times daily. 1 Each 02/04/20 21 Active Additional Information Patient not taking.Reason: Pt electing to not take the medication, Reported on 02/23/2025 insulin aspart U-100 (NOVOLOG FLEXPEN U-100 INSULIN) 100 unit/mL (3 mL) SubQ Insulin PenIndications:Dys lipidemia associated with type 2 diabetes mellitus (HCC) USE DIRECTED - AVERAGE 30 UNITS DAILY. 15 mL 02/04/20 Active Additional Information Patient not taking.Reason: Pt electing to not take the medication, Reported on 02/23/2025 FREESTYLE PRECISION NUBIA [place] [facility] [place]ications:U ncontrolled type 2 diabetes mellitus with complication Use to check blood glucose 2 times daily as instructed. Dx code: E11.8 100 Each 03/17/20 Active Additional Information Patient not taking.Reason: Pt electing to not take the medication, Reported on 02/23/2025 SUMAtriptan (IMITREX) 100 mg Oral Tablet TAKE ONE (1) TAB AT ONSET OF HEADACHE CAN REPEAT IN TWO (2) HRS NEEDED . NO MORE THAN TWO (2) TABS IN 24 HRS 11/16/19 Active tiZANidine (ZANAFLEX) 4 mg Oral Tablet TAKE ONE (1) TABLET(S) EVERY SIX (6) HOURS BY ORAL ROUTE. 11/16/19 Active metoprolol succinate (TOPROL-XL) 25 mg Oral Tablet Sustained Release 24 hr 50 mg daily. 11/23/19 Active azelastine HCl (AZELASTINE NASL) by Nasal route. Active losartan (COZAAR) 50 mg Oral Tablet Take 50 mg by mouth 2 times daily. 11/16/19 22 Active fluticasone propionate (XHANCE NASL) by Nasal route. Acti ve ONETOUCH DELICA PLUS LANCET 33 gauge [facility] [place]isc[place]ications:Dy slipidemia associated with type 2 diabetes mellitus (HCC) 1 Each by Mis.(Non-Drug; Combo Route) route 4 times daily. 150 Each 02/16/20 Active Insulin [place], Disposable, (SAMMIE PEN NEEDLE) 32 gauge x [facility] [place] NeedleIndications: Dyslipidemia associated with type 2 diabetes mellitus (HCC) Use as directed to inject insulins 4 times daily 120 Each 05/09/20 Active ONETOUCH VERIO TEST STRIPS [facility] [place]ications:D yslipidemia associated with type 2 diabetes mellitus (HCC) USE ONE STRIP TO TEST FOUR TIMES A DAY 150 Strip 06/19/20 Active levocetirizine (XYZAL) 5 mg Oral Tablet 09/27/20 22 Active FLOVENT HFA 44 mcg/actuation Inhl HFA Aerosol Inhaler 09/27/20 22 Active ketotifen (ZADITOR) 0.025 % (0.035 %) Opht Drops 1 Drop 2 times daily. Active cephALEXin (KEFLEX) 500 mg Oral Capsule TAKE ONE (1) CAPSULE BY MOUTH EVERY 12 HOURS 08/22/20 Active LEVOthyroxine (SYNTHROID) 150 mcg Oral TabletIndications: Post-surgical hypothyroidism Take one tablet by mouth daily first thing of a morning on an empty stomach. 30 Tablet 3 03/07/20 23 Active Additional Information Patient not taking.Reason: Pt electing to not take the medication, Reported on 02/23/2025 dulaglutide (TRULICITY) 3 mg/0.5 mL SubQ Pen InjectorIndication s:Type 2 diabetes mellitus with hyperglycemia, with long-term current use of insulin ([facility]) Subcutaneous (Inject under the skin) 0.5 mL once a week. 2 mL 5 09/05/20 23 Active glimepiride (AMARYL) 4 mg Oral TabletIndications: Type 2 diabetes mellitus with hyperglycemia, with long-term current use of insulin ([facility]) Take 1 Tablet by mouth every morning. 30 Tablet 5 09/05/20 23 Active ARNUITY ELLIPTA 100 mcg/actuation Inhl Disk with Device 09/05/20 23 Active ketorolac (TORADOL) 10 mg Oral Tablet 10 mg. 04/03/20 23 Active ofloxacin (FLOXIN) 0.3 % Otic Drops 09/05/20 23 Active pantoprazole (PROTONIX) 40 mg Oral Tablet, Delayed Release (E.C.) 09/05/20 23 Active TRESIBA FLEXTOUCH U-100 100 unit/mL (3 mL) SubQ Insulin PenIndications:Dys lipidemia associated with type 2 diabetes mellitus (HCC) INJECT 60 UNITS UNDER THE SKIN EVERY MORNING Strength: 100 unit/mL (3 mL) 30 mL 5 01/09/20 24 Active ARIPiprazole (ABILIFY) 5 mg Oral Tablet Take 5 mg by mouth daily. 04/07/20 24 Active estradioL (ESTRACE) 0.01 % (0.1 mg/gram) Vagl Cream Place 4 g vaginally daily. Active oxybutynin (DITROPAN-XL) 10 mg Oral Tablet Extended Rel 24 hr Take 10 mg by mouth daily. Active LEVOthyroxine (SYNTHROID) 175 mcg Oral Tablet Take by mouth daily. Active ergocalciferol (DRISDOL) 1,250 mcg (50,000 unit) Oral CapsuleIndications :Vitamin D deficiency TAKE 1 CAPSULE BY MOUTH TWICE WEEKLY 24 Capsule 3 07/15/20 24 Active evolocumab (REPATHA SURECLICK) 140 mg/mL SubQ Pen Injector Subcutaneous (Inject under the skin) 1 mL every 14 days. 6 mL 3 07/18/20 24 Active PRO FE 180 mg iron Oral Capsule 2 times daily. 06/10/20 24 Active NURTEC ODT 75 mg Oral Tablet, Rapid Dissolve daily. Active traZODone (DESYREL) 100 mg Oral Tablet Take 100 mg by mouth nightly. 08/20/20 Active Blood-Glucose Sensor (DEXCOM G7 SENSOR) [facility] [place]ications: Dyslipidemia associated with type 2 diabetes mellitus (HCC) 1 Each by [facility] [place]Non-Drug; Combo Route) route every 10 days. 08/26/20 Active Additional Information Patient not taking.Reported on 02/23/2025 Active Problems Problem Noted Date Diagnosed Date Hypoglycemia associated with diabetes 02/13/2019 Diabetic autonomic neuropath y associated with type 2 diabetes mellitus 08/08/2018 KCS (keratoconjunctivitis sicca) 01/02/2018 S/P laparoscopic sleeve gastrectomy 06/06/2017 Fatty liver 04/04/2017 MEIER (nonalcoholic steatohepatitis) 04/04/2017 H/O heart artery stent 03/07/2017 Hypocalcemia 03/07/2017 Post-surgical hypothyroidism 05/31/2016 Overview (05/31/2016): Followed by Endocrinology. Follicular thyroid cancer 05/31/2016 Overview (08/22/2016): Followed by Endocrinology. Had completion thyroidectomy by Surgery at . Reviewed initial pathology from Right lobectomy in 2016-01-05 Had pT2N0 minimally invasive follicular carcinoma Then she had Completion thyroidectomy afterwards with microscopic PTC found 2016-07-14-I131 as 31.7 mCi PO 2016-07-18-Post treatment WBS. Statin intolerance 10/25/2014 Overview (10/25/2014): Followed by Endocrinology. Mixed dyslipidemia 10/07/2013 Overview (10/31/2019): Managed by Endocrinology. [place] Score of 4 Has Fhx od premature CAD and has had premature CAD with stents placed in her 42 (3 stents) Negative testing for FH Vitamin D deficiency 10/07/2013 Overview (10/07/2013): Managed by Endocrinology. Hypertensive urgency 06/24/2013 Facial droop 06/24/2013 Angina at rest 06/24/2013 CHF (congestive heart failure) 01/10/2013 Left sided numbness 01/03/2013 Chest pain 01/02/2013 Headache 01/02/2013 Class 2 obesity due to exces s calories with serious comorbidity and body mass index (BMI) of 37.0 to 37.9 in adult 05/31/2011 Dyslipidemia associated with type 2 diabetes annika litus Overview (10/07/2013): Managed by Endocrinology. Hypertension Fibromyalgia Sleep apnea Resolved Problems Problem Noted Date Diagnosed Date Resolved Date Morbid obesity with BMI of 40.0-44.9, adult 04/23/2017 06/06/2017 Thyroid nodule 12/28/2011 05/31/2016 Overview (10/07/2013): Managed by Endocrinology. THYROID ULTRASOUND, 04/15/2012:Stable appearance compared to 2010 Immunizations Immunization Administration Dates Next Due Influenza Seasonal Injectable 07/02/2023 Influenza Vaccine, Unspecified Formulation 06/24,07/19/2010 Zoster Recombinant 07/02/2023 Family History Medical History Relation Name Comments Asthma Brother Glaucoma Brother Cancer Father Foster skin Dementia Father Foster Diabetes Father Foster Heart Attack Father Foster High Blood Pressure Father Foster High Cholesterol Father Foster Other Father Foster kidney stones Stroke Father Foster Diabetes Maternal Aunt Cancer Maternal Grandfather Nelia kimbrough prosta te Diabetes Maternal Grandmother Denita Colon Cancer Mother Me Diabetes Mother Me High Cholesterol Mother Me Liver Cancer Mother Me Osteoporosis Mother Me Amblyopia Neg Hx Anesth Problems Neg Hx Blindness Neg Hx Cataracts Neg Hx Macular Degen Neg Hx Retinal Detachment Neg Hx Strabismus Neg Hx Relation Name Status Comments Brother Father Foster Alive Maternal Aunt Maternal Grandfather Nelia kimbrough Alive Maternal Grandmother Denita Mother Me Social History Smoking Status as of 04/17/2025 Tobacco Use Types Packs/Day Years Used Date Smoking Tobacco: Never Assessed Sex and Gender Information Value Date Recorded Sex Assigned at Not on file Legal Sex Female 5:02 PM EDT Gender Identity Not on file Sexual Orientation Not on file Last Filed Vital Signs Vital Sign Reading Time Taken Comments Blood Pressure 105/62 02/23/2025 3:01 PM EDT Pulse 67 02/23/2025 3:01 PM EDT Temperature 37 C (98.6 F) 06/06/2017 12:51 PM EDT Respiratory Rate 16 08/26/2024 10:57 AM EST Oxygen Saturation 94% 05/31/2017 8:11 AM EDT Inhaled Oxygen Concentration - - Weight 83 kg (182 lb 14.4 oz) 02/23/2025 3:01 PM EDT Height 160 cm (5' 3 ) 02/23/2025 3:01 PM EDT Body Mass Index 32.4 02/23/2025 3:01 PM EDT Plan of Treatment Upcoming Encounters Date Type Department Care Team (Late st Contact Info) Description 07/01/2025 3:20 PM EDT [facility] [place] [address] [facility] [address] [place] [phone] Rojas Cunningham MD [address] [facility] [address] [place] [phone] Procedures Procedure Name Priority Date/Time Associated Diagnosis Comments DIABETES EYE EXAM Routine 02/17/2025 11:45 AM EDT THYROGLOBULIN ANTIBODY -REF LAB Routine 05/06/2024 THYROGLOBULIN -REF LAB Routine 05/06/2024 HEMOGLOBIN A1C Routine 05/06/2024 C-REACTIVE PROTEIN Routine 05/06/2024 COMPREHENSIVE METABOLIC PANEL Routine 05/06/2024 LIPID PANEL REFLEX Routine 05/06/2024 VITAMIN D 25 HYDROXY Routine 05/06/2024 THYROID STIMULATING HORMONE Routine 05/06/2024 VITAMIN B12 LEVEL Routine 05/06/2024 MICROALBUMIN/CREATI NINE RATIO URINE Routine 05/06/2024 SCANNED LABS 01/16/2024 6:33 PM EDT C-REACTIVE PROTEIN Routine 12/31/2023 LIPID SCREEN Routine 12/31/2023 VITAMIN B12 LEVEL Routine 12/31/2023 HEMOGLOBIN A1C Routine 12/31/2023 T4, FREE (THYROXINE) Routine 12/31/2023 VITAMIN D 25 HYDROXY Routine 12/31/2023 MICROALBUMIN/CREATI NINE RATIO URINE Routine 12/31/2023 SCANNED LABS 10/04/2023 5:04 PM EST THYROGLOBULIN -REF LAB Routine 09/18/2023 T3 FREE Routine 09/18/2023 COMPREHENSIVE METABOLIC PANEL Routine 09/18/2023 C-REACTIVE PROTEIN Routine 09/18/2023 LIPID SCREEN Routine 09/18/2023 THYROID STIMULATING HORMONE Routine 09/18/2023 VITAMIN B12 LEVEL Routine 09/18/2023 VITAMIN D 25 HYDROXY Routine 09/18/2023 HEMOGLOBIN A1C Routine 09/18/2023 THYROID STIMULATING HORMONE Routine 05/25/2023 11:14 AM EDT Post-surgical hypothyroidism LIPID PANEL REFLEX Routine 05/25/2023 11:14 AM EDT Dyslipidemia associated with type 2 diabetes mellitus (HCC) VITAMIN B12 LEVEL Routine 05/25/2023 11:14 AM EDT Dyslipidemia associated with type 2 diabetes mellitus (HCC) VITAMIN D 25 HYDROXY Routine 05/25/2023 11:14 AM EDT Vitamin D deficiency HEMOGLOBIN A1C Routine 05/25/2023 11:14 AM EDT Dyslipidemia associated with type 2 diabetes mellitus (HCC) COMPREHENSIVE METABOLIC PANEL Routine 05/25/2023 11:14 AM EDT Dyslipidemia associated with type 2 diabetes mellitus (HCC) C-REACTIVE PROTEIN Routine 05/25/2023 11:14 AM EDT Dyslipidemia associated with type 2 diabetes mellitus (HCC) SCANNED LABS 03/25/2023 12:37 PM EDT T4, FREE (THYROXINE) Routine 03/20/2023 12:40 PM EDT Post-surgical hypothyroidism T3 FREE Routine 03/20/2023 12:40 PM EDT Post-surgical hypothyroidism THYROID STIMULATING HORMONE Routine 03/20/2023 12:40 PM EDT Post-surgical hypothyroidism VITAMIN B12 LEVEL Routine 03/20/2023 12:40 PM EDT Dyslipidemia associated with type 2 diabetes mellitus (HCC) VITAMIN D 25 HYDROXY Routine 03/20/2023 12:40 PM EDT Vitamin D deficiency HEMOGLOBIN A1C Routine 03/20/2023 12:40 PM EDT Dyslipidemia associated with type 2 diabetes mellitus (HCC) URIC ACID Routine 03/20/2023 12:40 PM EDT Dyslipidemia associated with type 2 diabetes mellitus (HCC) C-REACTIVE PROTEIN Routine 03/20/2023 12:40 PM EDT Dyslipidemia associated with type 2 diabetes mellitus (HCC) COMPREHENSIVE METABOLIC PANEL Routine 03/20/2023 12:40 PM EDT Dyslipidemia associated with type 2 diabetes mellitus (HCC) TRIIODOTHYRONINE Routine 02/06/2023 THYROID STIMULATING HORMONE Routine 02/06/2023 T4, FREE (THYROXINE) Routine 02/06/2023 SCANNED LABS 08/17/2022 11:28 AM EST HEMOGLOBIN A1C Routine 08/07/2022 FRUCTOSAMINE Routine 08/07/2022 VITAMIN D 25 HYDROXY Routine 08/07/2022 VITAMIN B12 LEVEL Routine 08/07/2022 C-REACTIVE PROTEIN Routine 08/07/2022 T4, FREE (THYROXINE) Routine 08/07/2022 THYROID STIMULATING HORMONE Routine 08/07/2022 LIPID SCREEN Routine 08/07/2022 COMPREHENSIVE METABOLIC PANEL Routine 08/07/2022 SCANNED LABS 07/18/2022 1:03 PM EDT T4, FREE (THYROXINE) Routine 07/07/2022 THYROID STIMULATING HORMONE Routine 07/07/2022 SCANNED LABS 06/08/2022 6:12 AM EDT HEMOGLOBIN A1C Routine 05/04/2022 FRUCTOSAMINE Routine 05/04/2022 VITAMIN D 25 HYDROXY Routine 05/04/2022 VITAMIN C (ASCORBIC ACID) - REF LAB Routine 05/04/2022 THYROGLOBULIN -REF LAB Routine 05/04/2022 VITAMIN B12 LEVEL Routine 05/04/2022 C-REACTIVE PROTEIN Routine 05/04/2022 LIPID SCREEN Routine 05/04/2022 COMPREHENSIVE METABOLIC PANEL Routine 05/04/2022 LIPID PANEL REFLEX Routine 10/19/2021 HEMOGLOBIN A1C Routine 10/19/2021 FRUCTOSAMINE Routine 10/19/2021 C-REACTIVE PROTEIN Routine 10/19/2021 T4, FREE (THYROXINE) Routine 10/19/2021 THYROID STIMULATING HORMONE Routine 10/19/2021 COMPREHENSIVE METABOLIC PANEL Routine 10/19/2021 VITAMIN D 25 HYDROXY Routine 10/19/2021 VITAMIN D 25 HYDROXY Routine 09/05/2021 FRUCTOSAMINE Routine 09/05/2021 HEMOGLOBIN A1C Routine 09/05/2021 VITAMIN B12 LEVEL Routine 09/05/2021 C-REACTIVE PROTEIN Routine 09/05/2021 T4, FREE (THYROXINE) Routine 09/05/2021 THYROID STIMULATING HORMONE Routine 09/05/2021 LIPID PANEL REFLEX Routine 09/05/2021 COMPREHENSIVE METABOLIC PANEL Routine 09/05/2021 VITAMIN D 25 HYDROXY Routine 05/31/2021 Vitamin D deficiency LIPID PANEL REFLEX Routine 05/31/2021 Dyslipidemia associated with type 2 diabetes mellitus (HCC) C-REACTIVE PROTEIN Routine 05/31/2021 Dyslipidemia associated with type 2 diabetes mellitus (HCC) FRUCTOSAMINE Routine 05/31/2021 Dyslipidemia associated with type 2 diabetes mellitus (HCC) COMPREHENSIVE METABOLIC PANEL Routine 05/31/2021 Dyslipidemia associated with type 2 diabetes mellitus (HCC) HEMOGLOBIN A1C Routine 05/31/2021 Dyslipidemia associated with type 2 diabetes mellitus (HCC) C-PEPTIDE Routine 05/31/2021 Dyslipidemia associated with type 2 diabetes mellitus (HCC) VITAMIN B12 LEVEL Routine 05/31/2021 Dyslipidemia associated with type 2 diabetes mellitus (HCC) THYROID STIMULATING HORMONE Routine 05/31/2021 Post-surgical hypothyroidism SCANNED LABS 04/19/2021 1:28 PM EDT C-REACTIVE PROTEIN Routine 01/25/2021 Dyslipidemia associated with type 2 diabetes mellitus (HCC) COMPREHENSIVE METABOLIC PANEL Routine 01/25/2021 Dyslipidemia associated with type 2 diabetes mellitus (HCC) HEMOGLOBIN A1C Routine 01/25/2021 Dyslipidemia associated with type 2 diabetes mellitus (HCC) FRUCTOSAMINE Routine 01/25/2021 Dyslipidemia associated with type 2 diabetes mellitus (HCC) VITAMIN D 25 HYDROXY Routine 01/25/2021 Vitamin D deficiency VITAMIN B12 LEVEL Routine 01/25/2021 Dyslipidemia associated with type 2 diabetes mellitus (HCC) LIPID PANEL REFLEX Routine 01/25/2021 Dyslipidemia associated with type 2 diabetes mellitus (HCC) THYROID STIMULATING HORMONE Routine 01/25/2021 Post-surgical hypothyroidism T4, FREE (THYROXINE) Routine 01/25/2021 Post-surgical hypothyroidism T3 FREE Routine 01/25/2021 Post-surgical hypothyroidism THYROGLOBULIN AND TG AB REFLEX MONITOR-REF LAB Routine 01/25/2021 Follicular thyroid cancer (HCC) SCANNED LABS 12/30/2020 7:39 AM EDT C-REACTIVE PROTEIN Routine 10/20/2020 Dyslipidemia associated with type 2 diabetes mellitus (HCC) COMPREHENSIVE METABOLIC PANEL Routine 10/20/2020 Dyslipidemia associated with type 2 diabetes mellitus (HCC) HEMOGLOBIN A1C Routine 10/20/2020 Dyslipidemia associated with type 2 diabetes mellitus (HCC) FRUCTOSAMINE Routine 10/20/2020 Dyslipidemia associated with type 2 diabetes mellitus (HCC) VITAMIN D 25 HYDROXY Routine 10/20/2020 Vitamin D deficiency Dyslipidemia associated with type 2 diabetes mellitus (HCC) VITAMIN B12 LEVEL Routine 10/20/2020 Dyslipidemia associated with type 2 diabetes mellitus (HCC) LIPID PANEL REFLEX Routine 10/20/2020 Dyslipidemia associated with type 2 diabetes mellitus (HCC) THYROID STIMULATING HORMONE Routine 10/20/2020 Post-surgical hypothyroidism T4, FREE (THYROXINE) Routine 10/20/2020 Post-surgical hypothyroidism T3 FREE Routine 10/20/2020 Post-surgical hypothyroidism THYROGLOBULIN AND TG AB REFLEX MONITOR-REF LAB Routine 10/20/2020 Follicular thyroid cancer (HCC) SCANNED LABS 07/28/2020 10:35 AM EDT MICROALBUMIN/CREATI NINE RATIO URINE Routine 07/06/2020 Dyslipidemia associated with type 2 diabetes mellitus (HCC) HEMOGLOBIN A1C Routine 07/06/2020 Dyslipidemia associated with type 2 diabetes mellitus (HCC) FRUCTOSAMINE Routine 07/06/2020 Dyslipidemia associated with type 2 diabetes mellitus (HCC) VITAMIN D 25 HYDROXY Routine 07/06/2020 Vitamin D deficiency APOLIPOPROTEIN B-REF LAB Routine 07/06/2020 Dyslipidemia associated with type 2 diabetes mellitus (HCC) C-REACTIVE PROTEIN Routine 07/06/2020 Dyslipidemia associated with type 2 diabetes mellitus (HCC) T4, FREE (THYROXINE) Routine 07/06/2020 Post-surgical hypothyroidism THYROID STIMULATING HORMONE Routine 07/06/2020 Post-surgical hypothyroidism VITAMIN B12 LEVEL Routine 07/06/2020 Dyslipidemia associated with type 2 diabetes mellitus (HCC) LIPID PANEL REFLEX Routine 07/06/2020 Dyslipidemia associated with type 2 diabetes mellitus (HCC) COMPREHENSIVE METABOLIC PANEL Routine 07/06/2020 Dyslipidemia associated with type 2 diabetes mellitus (HCC) SCANNED LABS 05/27/2020 2:15 PM EDT EMG Routine 04/12/2020 11:13 AM EDT Carpal tunnel syndrome, bilateral C-REACTIVE PROTEIN Routine 03/09/2020 Dyslipidemia associated with type 2 diabetes mellitus (HCC) COMPREHENSIVE METABOLIC PANEL Routine 03/09/2020 Dyslipidemia associated with type 2 diabetes mellitus (HCC) HEMOGLOBIN A1C Routine 03/09/2020 Dyslipidemia associated with type 2 diabetes mellitus (HCC) FRUCTOSAMINE Routine 03/09/2020 Dyslipidemia associated with type 2 diabetes mellitus (HCC) LIPID PANEL REFLEX Routine 03/09/2020 Dyslipidemia associated with type 2 diabetes mellitus (HCC) THYROID STIMULATING HORMONE Routine 03/09/2020 Post-surgical hypothyroidism T4, FREE (THYROXINE) Routine 03/09/2020 Post-surgical hypothyroidism MICROALBUMIN/CREATI NINE RATIO URINE Routine 03/09/2020 Dyslipidemia associated with type 2 diabetes mellitus (HCC) SCANNED LABS 11/12/2019 2:40 PM EST MICROALBUMIN/CREATI NINE RATIO URINE Routine 10/03/2019 Dyslipidemia associated with type 2 diabetes mellitus (HCC) FRUCTOSAMINE Routine 10/03/2019 Dyslipidemia associated with type 2 diabetes mellitus (HCC) HEMOGLOBIN A1C Routine 10/03/2019 Dyslipidemia associated with type 2 diabetes mellitus (HCC) C-REACTIVE PROTEIN Routine 10/03/2019 Dyslipidemia associated with type 2 diabetes mellitus (HCC) THYROGLOBULIN AND TG AB REFLEX MONITOR-REF LAB Routine 10/03/2019 Post-surgical hypothyroidism T4, FREE (THYROXINE) Routine 10/03/2019 Post-surgical hypothyroidism THYROID STIMULATING HORMONE Routine 10/03/2019 Post-surgical hypothyroidism LIPID PANEL REFLEX Routine 10/03/2019 Dyslipidemia associated with type 2 diabetes mellitus (HCC) COMPREHENSIVE METABOLIC PANEL Routine 10/03/2019 Dyslipidemia associated with type 2 diabetes mellitus (HCC) SCANNED LABS 08/14/2019 9:01 AM EST HEMOGLOBIN A1C Routine 06/24/2019 Uncontrolled type 2 diabetes mellitus with complication (HCC) COMPREHENSIVE METABOLIC PANEL Routine 06/24/2019 Uncontrolled type 2 diabetes mellitus with complication (HCC) LIPID PANEL REFLEX Routine 06/24/2019 Mixed dyslipidemia THYROID STIMULATING HORMONE Routine 06/24/2019 Post-surgical hypothyroidism T4, FREE (THYROXINE) Routine 06/24/2019 Post-surgical hypothyroidism T3 FREE Routine 06/24/2019 Post-surgical hypothyroidism VITAMIN D 25 HYDROXY Routine 06/24/2019 Vitamin D deficiency C-REACTIVE PROTEIN Routine 06/24/2019 Uncontrolled type 2 diabetes mellitus with complication (HCC) SCANNED LABS 03/14/2019 2:11 PM EDT APOLIPOPROTEIN B-REF LAB Routine 02/26/2019 Dyslipidemia associated with type 2 diabetes mellitus (HCC) FRUCTOSAMINE -REF LAB Routine 02/26/2019 Dyslipidemia associated with type 2 diabetes mellitus (HCC) HEMOGLOBIN A1C Routine 02/26/2019 Dyslipidemia associated with type 2 diabetes mellitus (HCC) VITAMIN D 25 HYDROXY Routine 02/26/2019 Vitamin D deficiency THYROGLOBULIN AND TG AB REFLEX MONITOR-REF LAB Routine 02/26/2019 Follicular thyroid cancer (HCC) VITAMIN B12 LEVEL Routine 02/26/2019 Dyslipidemia associated with type 2 diabetes mellitus (HCC) T4, FREE (THYROXINE) Routine 02/26/2019 Post-surgical hypothyroidism THYROID STIMULATING HORMONE Routine 02/26/2019 Post-surgical hypothyroidism C-REACTIVE PROTEIN Routine 02/26/2019 Dyslipidemia associated with type 2 diabetes mellitus (HCC) COMPREHENSIVE METABOLIC PANEL Routine 02/26/2019 Dyslipidemia associated with type 2 diabetes mellitus (HCC) LIPID PANEL REFLEX Routine 02/26/2019 Dyslipidemia associated with type 2 diabetes mellitus (HCC) SCANNED LABS 01/31/2019 2:27 PM EDT LIPOPROTEIN (A)-REF LAB Routine 01/20/2019 FERRITIN Routine 01/08/2019 LIPOPROTEIN (A)-REF LAB Routine 01/08/2019 VITAMIN B12 LEVEL Routine 01/08/2019 Uncontrolled type 2 diabetes mellitus with complication, with long-term current use of insulin ([facility]) Vitamin D deficiency Mixed dyslipidemia APOLIPOPROTEIN B-REF LAB Routine 01/08/2019 Uncontrolled type 2 diabetes mellitus with complication, with long-term current use of insulin ([facility]) Vitamin D deficiency Mixed dyslipidemia C-REACTIVE PROTEIN Routine 01/08/2019 Uncontrolled type 2 diabetes mellitus with complication, with long-term current use of insulin ([facility]) Vitamin D deficiency Mixed dyslipidemia COMPREHENSIVE METABOLIC PANEL Routine 01/08/2019 Uncontrolled type 2 diabetes mellitus with complication, with long-term current use of insulin ([facility]) Vitamin D deficiency Mixed dyslipidemia FRUCTOSAMINE -REF LAB Routine 01/08/2019 Uncontrolled type 2 diabetes mellitus with complication, with long-term current use of insulin ([facility]) Vitamin D deficiency Mixed dyslipidemia HEMOGLOBIN A1C Routine 01/08/2019 Uncontrolled type 2 diabetes mellitus with complication, with long-term current use of insulin ([facility]) Vitamin D deficiency Mixed dyslipidemia T4, FREE (THYROXINE) Routine 01/08/2019 Uncontrolled type 2 diabetes mellitus with complication, with long-term current use of insulin ([facility]) Vitamin D deficiency Mixed dyslipidemia THYROID STIMULATING HORMONE Routine 01/08/2019 Uncontrolled type 2 diabetes mellitus with complication, with long-term current use of insulin ([facility]) Vitamin D deficiency Mixed dyslipidemia SCANNED LABS 12/03/2018 11:25 AM EST MICROALBUMIN/CREATI NINE RATIO URINE Routine 11/13/2018 9:56 AM EST VITAMIN D 25 HYDROXY Routine 11/13/2018 9:56 AM EST HEMOGLOBIN A1C Routine 11/13/2018 9:56 AM EST T4, FREE (THYROXINE) Routine 11/13/2018 9:56 AM EST T3 FREE Routine 11/13/2018 9:56 AM EST THYROID STIMULATING HORMONE Routine 11/13/2018 9:56 AM EST LIPID PANEL REFLEX Routine 11/13/2018 9:56 AM EST COMPREHENSIVE METABOLIC PANEL Routine 11/13/2018 9:56 AM EST ZINC LEVEL-REF LAB Routine 07/05/2018 12:00 PM EDT S/P laparoscopic sleeve gastrectomy Postsurgical malabsorption Encounter for vitamin deficiency screening VITAMIN E - REF LAB Routine 07/05/2018 12:00 PM EDT S/P laparoscopic sleeve gastrectomy Postsurgical malabsorption Encounter for vitamin deficiency screening FOLATE LEVEL Routine 07/05/2018 12:00 PM EDT S/P laparoscopic sleeve gastrectomy Postsurgical malabsorption Encounter for vitamin deficiency screening VITAMIN B1 (THIAMINE) WHOLE BLOOD -REF LAB Routine 07/05/2018 12:00 PM EDT S/P laparoscopic sleeve gastrectomy Postsurgical malabsorption Encounter for vitamin deficiency screening VITAMIN A (RETINOL) -REF LAB Routine 07/05/2018 12:00 PM EDT S/P laparoscopic sleeve gastrectomy Postsurgical malabsorption Encounter for vitamin deficiency screening IRON/UIBC Routine 07/05/2018 12:00 PM EDT S/P laparoscopic sleeve gastrectomy Postsurgical malabsorption Encounter for vitamin deficiency screening FERRITIN Routine 07/05/2018 12:00 PM EDT S/P laparoscopic sleeve gastrectomy Postsurgical malabsorption Encounter for vitamin deficiency screening COPPER LEVEL -REF LAB Routine 07/05/2018 12:00 PM EDT S/P laparoscopic sleeve gastrectomy Postsurgical malabsorption Encounter for vitamin deficiency screening SCANNED LABS 06/27/2018 10:39 AM EDT MISCELLANEOUS LAB Routine 06/12/2018 Uncontrolled type 2 diabetes mellitus with complication, with long-term current use of insulin (HCC) Vitamin D deficiency Mixed dyslipidemia C-REACTIVE PROTEIN Routine 06/12/2018 Uncontrolled type 2 diabetes mellitus with complication, with long-term current use of insulin ([facility]) Vitamin D deficiency Mixed dyslipidemia COMPREHENSIVE METABOLIC PANEL Routine 06/12/2018 Uncontrolled type 2 diabetes mellitus with complication, with long-term current use of insulin ([facility]) Vitamin D deficiency Mixed dyslipidemia FRUCTOSAMINE -REF LAB Routine 06/12/2018 Uncontrolled type 2 diabetes mellitus with complication, with long-term current use of insulin ([facility]) Vitamin D deficiency Mixed dyslipidemia HEMOGLOBIN A1C Routine 06/12/2018 Uncontrolled type 2 diabetes mellitus with complication, with long-term current use of insulin ([facility]) Vitamin D deficiency Mixed dyslipidemia URIC ACID Routine 06/12/2018 Uncontrolled type 2 diabetes mellitus with complication, with long-term current use of insulin ([facility]) Vitamin D deficiency Mixed dyslipidemia VITAMIN D 25 HYDROXY Routine 06/12/2018 Uncontrolled type 2 diabetes mellitus with complication, with long-term current use of insulin ([facility]) Vitamin D deficiency Mixed dyslipidemia VITAMIN B12 LEVEL Routine 06/12/2018 Uncontrolled type 2 diabetes mellitus with complication, with long-term current use of insulin ([facility]) Vitamin D deficiency Mixed dyslipidemia LIPID PANEL REFLEX Routine 06/12/2018 Uncontrolled type 2 diabetes mellitus with complication, with long-term current use of insulin ([facility]) Vitamin D deficiency Mixed dyslipidemia APOLIPOPROTEIN B-REF LAB Routine 06/12/2018 Uncontrolled type 2 diabetes mellitus with complication, with long-term current use of insulin ([facility]) Vitamin D deficiency Mixed dyslipidemia THYROID STIMULATING HORMONE Routine 06/12/2018 Uncontrolled type 2 diabetes mellitus with complication, with long-term current use of insulin (HCC) Vitamin D deficiency Mixed dyslipidemia T4, FREE (THYROXINE) Routine 06/12/2018 Uncontrolled type 2 diabetes mellitus with complication, with long-term current use of insulin (HCC) Vitamin D deficiency Mixed dyslipidemia ZINC LEVEL-REF LAB Routine 01/02/2018 8:52 AM EDT Follicular thyroid cancer (HCC) Post-surgical hypothyroidism S/P laparoscopic sleeve gastrectomy VITAMIN B1 (THIAMINE) WHOLE BLOOD -REF LAB Routine 01/02/2018 8:52 AM EDT Follicular thyroid cancer (HCC) Post-surgical hypothyroidism S/P laparoscopic sleeve gastrectomy VITAMIN A (RETINOL) -REF LAB Routine 01/02/2018 8:52 AM EDT Follicular thyroid cancer (HCC) Post-surgical hypothyroidism S/P laparoscopic sleeve gastrectomy IRON/UIBC Routine 01/02/2018 8:52 AM EDT Follicular thyroid cancer (HCC) Post-surgical hypothyroidism Hypocalcemia S/P laparoscopic sleeve gastrectomy FOLATE, RBC -REF LAB Routine 01/02/2018 8:52 AM EDT Follicular thyroid cancer (HCC) Post-surgical hypothyroidism S/P laparoscopic sleeve gastrectomy FERRITIN Routine 01/02/2018 8:52 AM EDT Follicular thyroid cancer (HCC) Post-surgical hypothyroidism Uncontrolled type 2 diabetes mellitus with complication, with long-term current use of insulin (HCC) S/P laparoscopic sleeve gastrectomy SCANNED LABS 12/07/2017 8:54 AM EST THYROID STIMULATING HORMONE Routine 11/21/2017 Post-surgical hypothyroidism T4, FREE (THYROXINE) Routine 11/21/2017 Post-surgical hypothyroidism APOLIPOPROTEIN B-REF LAB Routine 11/21/2017 Mixed dyslipidemia FRUCTOSAMINE -REF LAB Routine 11/21/2017 Uncontrolled type 2 diabetes mellitus with complication, with long-term current use of insulin (HCC) COMPREHENSIVE METABOLIC PANEL Routine 11/21/2017 Uncontrolled type 2 diabetes mellitus with complication, with long-term current use of insulin (HCC) C-REACTIVE PROTEIN Routine 11/21/2017 Uncontrolled type 2 diabetes mellitus with complication, with long-term current use of insulin (HCC) BILL TG CL Routine 10/24/2017 11:44 AM EST Dyslipidemia associated with type 2 diabetes mellitus (HCC) URIC ACID Routine 10/24/2017 11:44 AM EST Dyslipidemia associated with type 2 diabetes mellitus (HCC) T4, FREE (THYROXINE) Routine 10/24/2017 11:44 AM EST Post-surgical hypothyroidism THYROGLOBULIN AND TG AB REFLEX MONITOR-REF LAB Routine 10/24/2017 11:44 AM EST Post-surgical hypothyroidism THYROID STIMULATING HORMONE Routine 10/24/2017 11:44 AM EST Post-surgical hypothyroidism CALCIUM, IONIZED Routine 10/24/2017 11:44 AM EST Vitamin D deficiency PARATHYROID HORMONE INTACT Routine 10/24/2017 11:44 AM EST Vitamin D deficiency VITAMIN D 25 HYDROXY Routine 10/24/2017 11:44 AM EST Vitamin D deficiency APOLIPOPROTEIN B-REF LAB Routine 10/24/2017 11:44 AM EST Dyslipidemia associated with type 2 diabetes mellitus (HCC) LIPID PANEL REFLEX Routine 10/24/2017 11:44 AM EST Dyslipidemia associated with type 2 diabetes mellitus (HCC) FRUCTOSAMINE -REF LAB Routine 10/24/2017 11:44 AM EST Dyslipidemia associated with type 2 diabetes mellitus (HCC) HEMOGLOBIN A1C Routine 10/24/2017 11:44 AM EST Dyslipidemia associated with type 2 diabetes mellitus (HCC) COMPREHENSIVE METABOLIC PANEL Routine 10/24/2017 11:44 AM EST Dyslipidemia associated with type 2 diabetes mellitus (HCC) C-REACTIVE PROTEIN Routine 10/24/2017 11:44 AM EST Dyslipidemia associated with type 2 diabetes mellitus (HCC) SCANNED LABS 10/11/2017 1:33 PM EST CALCIUM, IONIZED, SERUM-REF LAB Routine 09/04/2017 BASIC METABOLIC PANEL Routine 09/04/2017 C-REACTIVE PROTEIN Routine 09/04/2017 T4, FREE (THYROXINE) Routine 09/04/2017 THYROID STIMULATING HORMONE Routine 09/04/2017 LIPID SCREEN Routine 09/04/2017 THYROGLOBULIN ANTIBODY -REF LAB Routine 09/04/2017 APOLIPOPROTEIN, A-1-REF LAB Routine 09/04/2017 VITAMIN D 25 HYDROXY Routine 09/04/2017 FRUCTOSAMINE -REF LAB Routine 09/04/2017 PARATHYROID HORMONE INTACT Routine 09/04/2017 HEMOGLOBIN A1C Routine 09/04/2017 SCANNED LABS 08/29/2017 11:30 AM EST SCANNED LABS 08/24/2017 2:31 PM EST FRUCTOSAMINE -REF LAB Routine 07/27/2017 C-REACTIVE PROTEIN Routine 07/27/2017 COMPREHENSIVE METABOLIC PANEL Routine 07/27/2017 COMPREHENSIVE METABOLIC PANEL Routine 06/28/2017 LIPID SCREEN Routine 06/28/2017 THYROID STIMULATING HORMONE Routine 06/28/2017 T4, FREE (THYROXINE) Routine 06/28/2017 C-REACTIVE PROTEIN Routine 06/28/2017 VITAMIN B12 LEVEL Routine 06/28/2017 VITAMIN D 25 HYDROXY Routine 06/28/2017 HEMOGLOBIN A1C Routine 06/28/2017 VITAMIN B12/ FOLIC ACID Routine 06/14/2017 1:45 PM EDT Leg cramps Thiamine deficiency S/P laparoscopic sleeve gastrectomy Postsurgical malabsorption VITAMIN B1 (THIAMINE) WHOLE BLOOD -REF LAB Routine 06/14/2017 1:45 PM EDT Leg cramps Thiamine deficiency S/P laparoscopic sleeve gastrectomy Postsurgical malabsorption MAGNESIUM LEVEL Routine 06/14/2017 1:45 PM EDT Leg cramps Thiamine deficiency S/P laparoscopic sleeve gastrectomy Postsurgical malabsorption BASIC METABOLIC PANEL Routine 06/14/2017 1:45 PM EDT Leg cramps Thiamine deficiency S/P laparoscopic sleeve gastrectomy Postsurgical malabsorption CBC Routine 06/06/2017 2:04 PM EDT Fever, unspecified fever cause Cough History of sleeve gastrectomy Platelet inhibition due to Plavix BASIC METABOLIC PANEL Routine 06/06/2017 2:04 PM EDT Fever, unspecified fever cause Cough History of sleeve gastrectomy SCANNED RHYTHM STRIPS 06/02/2017 8:20 AM EDT GLUCOSE METER POC Routine 05/31/2017 12:51 PM EDT GLUCOSE METER POC Routine 05/31/2017 8:16 AM EDT DIFFERENTIAL Routine 05/31/2017 5:44 AM EDT BASIC METABOLIC PANEL Routine 05/31/2017 5:44 AM EDT CBC WITH DIFF Routine 05/31/2017 5:44 AM EDT GLUCOSE METER POC Routine 05/30/2017 9:12 PM EDT CBC STAT 05/30/2017 7:38 PM EDT PARTIAL THROMBOPLASTIN TIME STAT 05/30/2017 7:38 PM EDT PT / INR STAT 05/30/2017 7:38 PM EDT GLUCOSE METER POC Routine 05/30/2017 4:54 PM EDT GLUCOSE METER POC Routine 05/30/2017 11:21 AM EDT PATHOLOGY TISSUE REPORT Routine 05/30/2017 10:23 AM EDT INTRAOP AIRWAY PLACEMENT Routine 05/30/2017 10:11 AM EDT LAPAROSCOPIC SLEEVE GASTRECTOMY POSSIBLE LAPAROSCOPIC HIATAL HERNIA REPAIR 05/30/2017 10:01 AM EDT Morbid obesity (HCC) PAT UPDATED SPECIMEN Routine 05/30/2017 8:50 AM EDT CROSSMATCH SUMMARY Routine 05/30/2017 8:48 AM EDT GLUCOSE METER POC Routine 05/30/2017 7:59 AM EDT ANTIBODY SCREEN IGG Routine 05/23/2017 12:15 PM EDT ABORH Routine 05/23/2017 12:15 PM EDT DIFFERENTIAL Routine 05/23/2017 12:15 PM EDT CBC WITH DIFF Routine 05/23/2017 12:15 PM EDT Preop testing Morbid obesity due to excess calories (HCC) SCANNED LABS 04/20/2017 10:47 AM EDT CORTISOL SALIVA-REF LAB Routine 03/29/2017 12:59 AM EDT Morbid obesity due to excess calories (HCC) Weight gain SCANNED LABS 03/28/2017 9:08 AM EDT SCANNED LABS 03/23/2017 2:34 PM EDT SCANNED LABS 03/23/2017 10:57 AM EDT SCANNED LABS 03/15/2017 10:15 AM EDT ZINC LEVEL-REF LAB Routine 03/12/2017 6:04 PM EDT Pre-operative laboratory examination VITAMIN B12 LEVEL Routine 03/12/2017 6:04 PM EDT Diverticulosis of intestine without bleeding, unspecified intestinal tract location Pre-operative laboratory examination VITAMIN B1 (THIAMINE) WHOLE BLOOD -REF LAB Routine 03/12/2017 6:04 PM EDT Pre-operative laboratory examination VITAMIN A (RETINOL) -REF LAB Routine 03/12/2017 6:04 PM EDT Pre-operative laboratory examination IRON/UIBC Routine 03/12/2017 6:04 PM EDT Congestive heart failure, unspecified congestive heart failure chronicity, unspecified congestive heart failure type Diverticulosis of intestine without bleeding, unspecified intestinal tract location Pre-operative laboratory examination FOLATE, RBC -REF LAB Routine 03/12/2017 6:04 PM EDT Congestive heart failure, unspecified congestive heart failure chronicity, unspecified congestive heart failure type Diverticulosis of intestine without bleeding, unspecified intestinal tract location Pre-operative laboratory examination FERRITIN Routine 03/12/2017 6:04 PM EDT Congestive heart failure, unspecified congestive heart failure chronicity, unspecified congestive heart failure type Diverticulosis of intestine without bleeding, unspecified intestinal tract location Pre-operative laboratory examination MICROALBUMIN/CREATI NINE RATIO URINE Routine 02/22/2017 10:23 AM EDT HEMOGLOBIN A1C Routine 02/22/2017 10:23 AM EDT THYROGLOBULIN AND TG AB REFLEX MONITOR-REF LAB Routine 02/22/2017 10:23 AM EDT C-REACTIVE PROTEIN Routine 02/22/2017 10:23 AM EDT T4, FREE (THYROXINE) Routine 02/22/2017 10:23 AM EDT THYROID STIMULATING HORMONE Routine 02/22/2017 10:23 AM EDT LIPID PANEL REFLEX Routine 02/22/2017 10:23 AM EDT COMPREHENSIVE METABOLIC PANEL Routine 02/22/2017 10:23 AM EDT C-REACTIVE PROTEIN Routine 12/22/2016 12:18 PM EDT T4, FREE (THYROXINE) Routine 12/22/2016 12:18 PM EDT THYROID STIMULATING HORMONE Routine 12/22/2016 12:18 PM EDT COMPREHENSIVE METABOLIC PANEL Routine 12/22/2016 12:18 PM EDT HEMOGLOBIN A1C Routine 12/22/2016 12:18 PM EDT HEPATIC FUNCTION PANEL Routine 11/07/2016 US RETROPERITONEAL LIMITED Routine 10/27/2016 3:07 PM EST Aneurysm of artery COMPREHENSIVE METABOLIC PANEL Routine 10/10/2016 LIPID SCREEN Routine 10/10/2016 HEMOGLOBIN A1C Routine 10/10/2016 T4, FREE (THYROXINE) Routine 10/10/2016 THYROID STIMULATING HORMONE Routine 10/10/2016 VITAMIN D 25 HYDROXY Routine 10/10/2016 TRIIODOTHYRONINE Routine 10/10/2016 T3 FREE Routine 10/05/2016 T4, FREE (THYROXINE) Routine 10/05/2016 THYROID STIMULATING HORMONE Routine 10/05/2016 VITAMIN D 25 HYDROXY Routine 08/22/2016 1:21 PM EST Vitamin D deficiency VITAMIN B12 LEVEL Routine 08/22/2016 1:21 PM EST Uncontrolled type 2 diabetes mellitus without complication, with long-term current use of insulin (HCC) THYROID STIMULATING HORMONE Routine 08/22/2016 1:21 PM EST Post-surgical hypothyroidism THYROGLOBULIN AND TG AB REFLEX MONITOR-REF LAB Routine 08/22/2016 1:21 PM EST Follicular thyroid cancer (HCC) T4, FREE (THYROXINE) Routine 08/22/2016 1:21 PM EST Post-surgical hypothyroidism PHOSPHORUS LEVEL Routine 08/22/2016 1:21 PM EST Uncontrolled type 2 diabetes mellitus without complication, with long-term current use of insulin (HCC) PARATHYROID HORMONE INTACT Routine 08/22/2016 1:21 PM EST Vitamin D deficiency MAGNESIUM LEVEL Routine 08/22/2016 1:21 PM EST Uncontrolled type 2 diabetes mellitus without complication, with long-term current use of insulin (HCC) LIPOPROFILE NMR, PARTICLE ANALYSIS ONLY-REF LAB Routine 08/22/2016 1:21 PM EST Mixed dyslipidemia LIPID SCREEN Routine 08/22/2016 1:21 PM EST Mixed dyslipidemia IRON/UIBC Routine 08/22/2016 1:21 PM EST Uncontrolled type 2 diabetes mellitus without complication, with long-term current use of insulin (HCC) CALCIUM, IONIZED Routine 08/22/2016 1:21 PM EST Vitamin D deficiency IGF-1 (INSULIN-LIKE GROWTH FACTOR 1) -REF LAB Routine 08/22/2016 1:21 PM EST Uncontrolled type 2 diabetes mellitus without complication, with long-term current use of insulin (HCC) HEMOGLOBIN A1C Routine 08/22/2016 1:21 PM EST Uncontrolled type 2 diabetes mellitus without complication, with long-term current use of insulin (HCC) FRUCTOSAMINE -REF LAB Routine 08/22/2016 1:21 PM EST Uncontrolled type 2 diabetes mellitus without complication, with long-term current use of insulin (HCC) FOLATE LEVEL Routine 08/22/2016 1:21 PM EST Uncontrolled type 2 diabetes mellitus without complication, with long-term current use of insulin (HCC) FERRITIN Routine 08/22/2016 1:21 PM EST Uncontrolled type 2 diabetes mellitus without complication, with long-term current use of insulin (HCC) C-PEPTIDE Routine 08/22/2016 1:21 PM EST Uncontrolled type 2 diabetes mellitus without complication, with long-term current use of insulin (HCC) COMPREHENSIVE METABOLIC PANEL Routine 08/22/2016 1:21 PM EST Uncontrolled type 2 diabetes mellitus without complication, with long-term current use of insulin (HCC) CBC Routine 08/22/2016 1:21 PM EST Uncontrolled type 2 diabetes mellitus without complication, with long-term current use of insulin (HCC) THYROID STIMULATING HORMONE Callback 07/14/2016 6:47 AM EDT Follicular thyroid cancer (HCC) THYROGLOBULIN AND TG AB REFLEX MONITOR-REF LAB Callback 07/14/2016 6:47 AM EDT Follicular thyroid cancer (HCC) SCANNED LABS 06/02/2016 9:13 AM EDT VITAMIN D 25 HYDROXY Routine 05/29/2016 1:42 PM EDT Vitamin D deficiency VITAMIN B12 LEVEL Routine 05/29/2016 1:42 PM EDT Diabetes mellitus type 2, uncontrolled (HCC) THYROID STIMULATING HORMONE Routine 05/29/2016 1:42 PM EDT Postablative hypothyroidism THYROGLOBULIN AND TG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 facility-administered medications on file prior to encounter. Current Outpatient Prescriptions on File Prior to Encounter Medication Sig Dispense Refill Blood Sugar Diagnostic (ONE TOUCH VERIO) Strp Tests 4x daily, #150 for30 day supply 150 Strip 11 insulin Regular Hum U-500 conc (HUMULIN R U-500 CONCENTRATED ) 500unit/mL Soln Expected total daily dose 45 units 1 Vial 11 Insulin Syringe-Needle U-100 (BD INSULIN SYRINGE ULT-FINE II) 1/2 mL 31x 5/16 Syrg U-100 1/2 ml insulin syringe 1 box 11 ondansetron (ZOFRAN-ODT) 4 mg disintegrating tablet Take 1 Tab bymouth every 6 hours as needed for Nausea for 10 doses. 10 Tab 0 Blood Sugar Diagnostic (ONE TOUCH VERIO) Strp To check blood sugar 4times daily 3 box 11 topiramate (TOPAMAX) 200 mg tablet Take 3/4 pills (150 mg) in the AMand 1 pill (200 mg) in the PM 60 Tab 6 Insulin Syringe-Needle U-100 (BD INSULIN SYRINGE ULT-FINE II) 1 mL 31 x5/16 Syrg Use for insulin injections 5 times daily 200 Syringe 11 Lancets (ONE TOUCH DELICA) [facility] [place] 1 box of lancets every30 days. Test blood sugar 4 times daily and prn 1 box 11 hydrOXYzine (ATARAX) 50 mg tablet Take by mouth. Every 8 hrs prn esomeprazole (NEXIUM) 40 mg capsule Take by mouth every morning. albuterol (PROVENTIL;VENTOLIN) 90 mcg/Actuation inhaler Inhale 2 Puffsinto the lungs every 6 hours as needed for Wheezing. aspirin 325 mg Take 325 mg by mouth daily. celecoxib (CELEBREX) 200 mg capsule Take by mouth daily. duloxetine (CYMBALTA) 60 mg capsule Take by mouth 2 times daily. cyclobenzaprine (FLEXERIL) 10 mg tablet Take by mouth 3 times daily. dicyclomine (BENTYL) 20 mg Take 20 mg by mouth 4 times daily. carBAMazepine (TEGRETOL) 200 mg tablet Take by mouth 2 times daily. aluminum & magnesium hydroxide-simethicone 200-200-20 mg/5 mL SuspTake 15 mL by mouth every 4 hours as needed. 1 Bottle 0 Fenofibric Acid (TRILIPIX) 135 mg CpDR Take 135 mg by mouth nightly. ezetimibe (ZETIA) 10 mg tablet Take by mouth nightly. Scheduled Meds: aspirin 325 mg Oral Daily carBAMazepine 200 mg Oral BID celecoxib 200 mg Oral Daily dicyclomine 20 mg Oral QID AC DULoxetine 60 mg Oral BID pantoprazole 40 mg Oral BID ezetimibe 10 mg Oral Nightly fenofibrate 160 mg Oral Daily insulin Regular Hum U-500 conc 15 Units Subcutaneous Daily WM topiramate 150 mg Oral Daily topiramate 200 mg Oral Nightly insulin Regular Hum U-500 conc 10 Units Subcutaneous PMWM Sodium Chloride 0.9 % 5 mL Intravenous Q8H GUILLERMO diltiazem 30 mg Oral Q6H GUILLERMO insulin aspart 2-10 Units Subcutaneous QID WM Continuous Infusions: Past Surgical History Past Surgical History Procedure Date Hysterectomy Rectocele repair Tonsillectomy Cholecystectomy Eye surgery tubes in tear ducts Breast surgery fibrotic cyst removal by ribs Upper gastrointestinal endoscopy Foot surgery reconstructive surgery on rt foot Colonoscopy Carpal tunnel release 07/06/2011 CARPAL TUNNEL RELEASE performed by EDYTA CHUN at [facility] Allergy Allergies Allergen Reactions Tawnya Inhibitors Shortness Of Breath Arb-Angiotensin Receptor Antagonist Beta-Blockers (Beta-Adrenergic Blocking Agts) Shortness Of Breath Patient is not sure of this allergy. She says that she though cozaarand lisinopril were beta blockers Metformin Hives Difficulty breathing Soy Anaphylaxis BEANS ALSO Codeine Itching Crestor (Rosuvastatin) Elevated liver enzymes Family History Family History Problem Relation Age of Onset Anesth Problems Neg Hx Colon Cancer Mother Liver Cancer Mother High Cholesterol Mother Osteoporosis Mother Diabetes Mother Stroke Father Dementia Father Heart Attack Father High Blood Pressure Father Other Father kidney stones High Cholesterol Father Cancer Father skin Diabetes Father Asthma Brother Cancer Maternal Grandfather prostate Diabetes Maternal Aunt Diabetes Maternal Grandmother Social History History Substance Use Topics Smoking status: Never Smoker Smokeless tobacco: Never Used Alcohol Use: No Review of Systems Per Epic nursing notes ,remainder of ROS was reviewed and negative Objective: BP 153/86 Pulse 94 Temp(Src) 98.6 F (37 C) (Oral) Resp 20 Ht 5'2 (1.575 m) Wt 135 lb 3.2 oz (61.326 kg) BMI 24.73 kg/m2 SpO2 95% ? No General: alert, appears stated age and cooperative Oropharynx: normal Neck: nontender, no carotid bruit, no JVD, thyroid nonenlarged Lung: clear to auscultation bilaterally Heart: regular rate and rhythm, S1, S2 normal, no murmur, click, rub orgallop Abdomen: soft, non-tender. Bowel sounds normal. No masses, noorganomegaly Extremities: extremities normal, atraumatic, no cyanosis or edema Pulses: 2+ and symmetric bilaterally,brachial, radial, inquinal,popliteal, posterior tibial and dorsalis pedis Skin: Warm and dry. no hyperpigmentation, vitiligo, or suspicious lesions Neuro: normal without focal findings, ROYER, reflexes normal andsymmetric and mental status, speech normal, alert and oriented x iii Diagnostic tests Lab Results Component Value Date WBC 7.1 01/01/2013 HGB 13.5 01/01/2013 HCT 39.0 01/01/2013 PLT 189 01/01/2013 Lab Results Component Value Date CREATININE 0.6 01/01/2013 BUN 15 01/01/2013 NA 143 01/01/2013 K 4.1 01/01/2013 CL 104 01/01/2013 CO2 27 01/01/2013 Lab Results Component Value Date CHOLESTEROL 235* 08/09/2012 TRIG 333* 08/09/2012 HDL 42 08/09/2012 LDLCALC 126* 08/09/2012 Lab Results Component Value Date ALT 40 08/09/2012 AST 37* 08/09/2012 Lab Results Component Value Date TSH 2.200 04/03/2012 Lab Results Component Value Date INR 0.9 07/18/2010 Lab Results Component Value Date TROPONINI <0.01 01/02/2013 TROPONINI <0.01 01/02/2013 TROPONINI <0.01 11/09/2011 Xr Chest Ap Portable 01/02/2013 PORTABLE CHEST - 01/01/2013 AT 07:42:50 PM: HISTORY: Pain.COMPARISON: 02/01/2012. FINDINGS: The heart, mariza, and mediastinum arenormal. The lungs are clear. 01/02/2013 IMPRESSION: Normal portable chest. Ek Ekg 12 Lead 01/02/2013 NOTICE: Preliminary Tracing available for review; FinalInterpretation by physician to follow. Ek Ekg 12 Lead 01/02/2013 NOTICE: Preliminary Tracing available for review; FinalInterpretation by physician to follow. EKG: Interpreted by mE normal EKG, normal sinus rhythm, unchanged fromprevious tracings, nonspecific ST and T waves changes. Telemetry Interpreted by me normal sinus The most recent cardiovascular imaging studies availabe in [employer] EMR werereviewed at time of consultation Assessment: Code Status No Order Principal Problem: *Chest pain Active Problems: Hyperlipidemia Diabetes mellitus type 2, uncontrolled Hypertension Sleep apnea Obesity Headache Plan: Principal Problem: *Chest pain Some typical features Negative Trop No acute EKG changes Check Echo Cont ASA, Zetia In light of negative GXT in past, persistent symptoms,significant risk factors, ischemic evaluation is warranted. Cath in am. Based on patients symptoms,riskfactor and / or prior cardiac diagnosiscardiac catheterization is recommended. The cardiac catheterizationprocedure was explained to the patient including the nature, benefits,possible alternative methods of treatment, diagnosis, and the risk ofinjury/complications of the procedure(s) including but not limited tobleeding that may require transfusion, infection, abnormal heart rhythm,rupture or blockage vessel, heart attack, heart failure, stroke, kidneydamage, dye reaction, blood clot, and . Complications could requireemergency coronary bypass surgery for treatment. Patient verbalizedunderstanding to the risk vs. benefits. Questions encouraged andanswered Active Problems: Hyperlipidemia Check Lipids Diabetes mellitus type 2, uncontrolled Per attending Hypertension Elevated, Continue Cardizem Sleep apnea Obesity Headache For complete plan of care please also refer to orders SCANNED RHYTHM STRIPS 01/02/2013 8:55 AM EDT SCANNED RHYTHM STRIPS 01/02/2013 8:55 AM EDT TROPONIN-I Timed 01/02/2013 8:41 AM EDT EK EKG 12 LEAD Routine 01/02/2013 5:53 AM EDT IP CONSULT TO WOUND CARE Routine 01/02/2013 5:17 AM EDT TROPONIN-I Timed 01/02/2013 1:44 AM EDT EK EKG 12 LEAD STAT 01/01/2013 8:33 PM EDT DIFFERENTIAL STAT 01/01/2013 7:58 PM EDT ED TROPONIN STAT 01/01/2013 7:58 PM EDT BASIC METABOLIC PANEL STAT 01/01/2013 7:58 PM EDT CBC WITH DIFF STAT 01/01/2013 7:58 PM EDT XR CHEST AP PORTABLE STAT 01/01/2013 7:42 PM EDT EK EKG 12 LEAD STAT 01/01/2013 6:12 PM EDT POCT GLUCOSE Routine 08/12/2012 11:07 AM EST Diabetes mellitus type 2, uncontrolled (HCC) LDL, CALCULATED Routine 08/09/2012 1:48 PM EDT VITAMIN D 25 HYDROXY Routine 08/09/2012 1:48 PM EDT Diabetes mellitus type 2, uncontrolled (HCC) Hyperlipidemia Vitamin d deficiency LIPID PANEL REFLEX Routine 08/09/2012 1:48 PM EDT Diabetes mellitus type 2, uncontrolled (HCC) Hyperlipidemia Vitamin d deficiency HEMOGLOBIN A1C Routine 08/09/2012 1:48 PM EDT Diabetes mellitus type 2, uncontrolled (HCC) Hyperlipidemia Vitamin d deficiency COMPREHENSIVE METABOLIC PANEL Routine 08/09/2012 1:48 PM EDT Diabetes mellitus type 2, uncontrolled (HCC) Hyperlipidemia Vitamin d deficiency CT ABDOMEN PELVIS WO CONTRAST STAT 07/15/2012 9:10 PM EDT POCT URINALYSIS DIPSTICK STAT 07/15/2012 7:59 PM EDT DIFFERENTIAL STAT 07/15/2012 7:40 PM EDT BASIC METABOLIC PANEL STAT 07/15/2012 7:40 PM EDT CBC WITH DIFF STAT 07/15/2012 7:40 PM EDT FL MODIFIED BARIUM SWALLOW Routine 04/25/2012 1:18 PM EDT Dysphagia US THYROID Routine 04/15/2012 9:40 AM EDT Thyroid mass VA US CAROTID DUPLEX BILATERAL Routine 04/08/2012 9:16 AM EDT Dysarthria Facial weakness ZINC LEVEL-REF LAB Routine 04/03/2012 10:39 AM EDT Diabetes mellitus type 2, uncontrolled (HCC) VITAMIN D 25 HYDROXY Routine 04/03/2012 10:39 AM EDT Vitamin D deficiency VITAMIN B12 LEVEL Routine 04/03/2012 10:39 AM EDT Diabetes mellitus type 2, uncontrolled (HCC) THYROID STIMULATING HORMONE Routine 04/03/2012 10:39 AM EDT Thyroid nodule THYROID PEROXIDASE (TPO) ANTIBODY -REF LAB Routine 04/03/2012 10:39 AM EDT Thyroid nodule THYROGLOBULIN ANTIBODY -REF LAB Routine 04/03/2012 10:39 AM EDT Thyroid nodule T4, FREE (THYROXINE) Routine 04/03/2012 10:39 AM EDT Thyroid nodule PHOSPHORUS LEVEL Routine 04/03/2012 10:39 AM EDT Vitamin D deficiency PARATHYROID HORMONE INTACT Routine 04/03/2012 10:39 AM EDT Vitamin D deficiency MAGNESIUM LEVEL Routine 04/03/2012 10:39 AM EDT Vitamin D deficiency LIPOPROTEIN (A)-REF LAB Routine 04/03/2012 10:39 AM EDT FHx: early coronary artery disease GLUTAMIC ACID DECARBOXYLASE AB -REF LAB Routine 04/03/2012 10:39 AM EDT Diabetes mellitus type 2, uncontrolled (HCC) CALCIUM, IONIZED Routine 04/03/2012 10:39 AM EDT Vitamin D deficiency C-REACTIVE PROTEIN Routine 04/03/2012 10:39 AM EDT Diabetes mellitus type 2, uncontrolled (HCC) C-PEPTIDE -REF LAB Routine 04/03/2012 10:39 AM EDT Diabetes mellitus type 2, uncontrolled (HCC) POCT GLUCOSE Routine 04/03/2012 9:45 AM EDT Diabetes mellitus type 2, uncontrolled (HCC) LDL, CALCULATED Routine 04/02/2012 11:05 AM EDT VITAMIN D 25 HYDROXY Routine 04/02/2012 11:05 AM EDT Diabetes mellitus type 2, uncontrolled (HCC) Hyperlipidemia Hypertension Obesity Thyroid nodule THYROID STIMULATING HORMONE Routine 04/02/2012 11:05 AM EDT Diabetes mellitus type 2, uncontrolled (HCC) Hyperlipidemia Hypertension Obesity Thyroid nodule MICROALBUMIN, URINE-ARUP Routine 04/02/2012 11:05 AM EDT Diabetes mellitus type 2, uncontrolled (HCC) Hyperlipidemia Hypertension Obesity Thyroid nodule LIPID PANEL REFLEX Routine 04/02/2012 11:05 AM EDT Diabetes mellitus type 2, uncontrolled (HCC) Hyperlipidemia Hypertension Obesity Thyroid nodule HEMOGLOBIN A1C Routine 04/02/2012 11:05 AM EDT Diabetes mellitus type 2, uncontrolled (HCC) Hyperlipidemia Hypertension Obesity Thyroid nodule COMPREHENSIVE METABOLIC PANEL Routine 04/02/2012 11:05 AM EDT Diabetes mellitus type 2, uncontrolled (HCC) Hyperlipidemia Hypertension Obesity Thyroid nodule CT ABDOMEN PELVIS WO ORAL OR IV CONTRAST STAT 02/19/2012 4:05 PM EDT DIFFERENTIAL STAT 02/19/2012 4:05 PM EDT BETA-HYDROXYBUTYRIC ACID Routine 02/19/2012 4:05 PM EDT LIPASE LEVEL STAT 02/19/2012 4:05 PM EDT CBC WITH DIFF STAT 02/19/2012 4:05 PM EDT AMYLASE LEVEL STAT 02/19/2012 4:05 PM EDT COMPREHENSIVE METABOLIC PANEL STAT 02/19/2012 4:05 PM EDT URINALYSIS STAT 02/19/2012 4:03 PM EDT URINE CULTURE (NO STAIN) STAT 02/19/2012 4:03 PM EDT POCT GLUCOSE STAT 02/19/2012 4:00 PM EDT MRI BRAIN WO CONTRAST Routine 02/13/2012 12:15 PM EDT Demyelinating disease of central nervous system, unspecified (HCC) XR CHEST PA AND LATERAL Routine 02/01/2012 1:25 PM EDT Sarcoidosis LDL, CALCULATED Routine 01/04/2012 11:29 AM EDT VITAMIN D, [id number] Routine 01/04/2012 11:29 AM EDT Diabetes mellitus type 2, uncontrolled (HCC) Hyperlipidemia Hypertension Obesity Hot flashes LIPID PANEL REFLEX Routine 01/04/2012 11:29 AM EDT Diabetes mellitus type 2, uncontrolled (HCC) Hyperlipidemia Hypertension Obesity Hot flashes IGF-1 (INSULIN-LIKE GROWTH FACTOR 1) -REF LAB Routine 01/04/2012 11:29 AM EDT Diabetes mellitus type 2, uncontrolled (HCC) Hyperlipidemia Hypertension Obesity Hot flashes HEMOGLOBIN A1C Routine 01/04/2012 11:29 AM EDT Diabetes mellitus type 2, uncontrolled (HCC) Hyperlipidemia Hypertension Obesity Hot flashes COMPREHENSIVE METABOLIC PANEL Routine 01/04/2012 11:29 AM EDT Diabetes mellitus type 2, uncontrolled (HCC) Hyperlipidemia Hypertension Obesity Hot flashes POCT GLUCOSE Routine 12/28/2011 1:39 PM EDT Diabetes mellitus type 2, uncontrolled (HCC) SCANNED RADIOLOGY REPORT 11/23/2011 5:[address] STRESS TEST EXERCISE Routine 11/22/2011 11:32 AM EST Chest pain, unspecified POCT URINALYSIS DIPSTICK STAT 11/10/2011 2:[address] ABDOMEN PELVIS W CONTRAST STAT 11/10/2011 1:14 AM EST XR CHEST AP PORTABLE [place] 11/09/2011 11:20 PM EST DIFFERENTIAL STAT 11/09/2011 11:06 PM EST TROPONIN-I STAT 11/09/2011 11:06 PM EST LIPASE LEVEL STAT 11/09/2011 11:06 PM EST AMYLASE LEVEL STAT 11/09/2011 11:06 PM EST HEPATIC FUNCTION PANEL STAT 11/09/2011 11:06 PM EST BASIC METABOLIC PANEL STAT 11/09/2011 11:06 PM EST CBC WITH DIFF STAT 11/09/2011 11:06 PM EST EK EKG 12 LEAD STAT 11/09/2011 10:53 PM EST NON-HAT SPRAYER CYTOLOGY REPORT Routine 08/25/2011 2:39 PM EST US GUIDED THYROID BIOPSY Routine 08/25/2011 2:03 PM EST Thyroid mass POCT GLUCOSE Routine 08/18/2011 8:53 AM EST Diabetes mellitus type 2, uncontrolled (HCC) Hyperlipidemia Hypertension Obesity Hot flashes US THYROID Routine 08/16/2011 2:14 PM EST Thyroid mass CARPAL TUNNEL RELEASE 07/06/2011 8:44 AM EDT RIGHT CARPAL TUNNEL SYNDROME Special Needs PCP;MENDEL RESENDIZ9/15 case moved fr 06/29 SCANNED OR REPORT 07/06/2011 12:00 AM EDT MICROALBUMIN/CREATI NINE RATIO URINE Routine 06/14/2011 12:44 PM EDT Hyperlipidemia Hypertension Hot flashes Diabetes mellitus type 2, uncontrolled (HCC) LDL, CALCULATED Routine 06/14/2011 11:12 AM EDT THYROID STIMULATING HORMONE Routine 06/14/2011 11:12 AM EDT Hyperlipidemia Hypertension Hot flashes Diabetes mellitus type 2, uncontrolled (HCC) T4, FREE (THYROXINE) Routine 06/14/2011 11:12 AM EDT Hyperlipidemia Hypertension Hot flashes Diabetes mellitus type 2, uncontrolled (HCC) LIPID PANEL REFLEX Routine 06/14/2011 11:12 AM EDT Hyperlipidemia Hypertension Hot flashes Diabetes mellitus type 2, uncontrolled (HCC) HEMOGLOBIN A1C Routine 06/14/2011 11:12 AM EDT Hyperlipidemia Hypertension Hot flashes Diabetes mellitus type 2, uncontrolled (HCC) FOLLICLE STIMULATING HORMONE LEVEL Routine 06/14/2011 11:12 AM EDT Hyperlipidemia Hypertension Hot flashes Diabetes mellitus type 2, uncontrolled (HCC) COMPREHENSIVE METABOLIC PANEL Routine 06/14/2011 11:12 AM EDT Hyperlipidemia Hypertension Hot flashes Diabetes mellitus type 2, uncontrolled (HCC) C-PEPTIDE -REF LAB Routine 06/14/2011 11:02 AM EDT Hyperlipidemia Hypertension Hot flashes Diabetes mellitus type 2, uncontrolled (HCC) POCT GLUCOSE Routine 05/31/2011 9:05 AM EDT Diabetes mellitus type 2, uncontrolled (HCC) MRI BRAIN WO CONTRAST Routine 05/25/2011 3:05 PM EDT Disturbance of skin sensation Blurred vision Urinary incontinence XR ABDOMEN AP Routine 05/11/2011 2:[address] ABDOMEN PELVIS WO ORAL OR IV CONTRAST Routine 05/11/2011 2:11 PM EDT Back pain History of kidney stones Flank pain SCANNED OR REPORT 12/29/2010 12:00 AM EDT SCANNED PRE/POST PROCEDURES 12/29/2010 12:00 AM EDT SCANNED ANESTHESIA FORMS 12/29/2010 12:00 AM EDT EK EKG 12 LEAD STAT 12/27/2010 3:35 PM EDT PATHOLOGY TISSUE REPORT Routine 12/27/2010 3:00 PM EDT CYSTOSCOPY WITH RETROGRADE PYELOGRAM 12/27/2010 2:16 PM EDT Same as pre-op Special Needs ROSENDA CPT:76730 CYSTOSCOPY BLADDER /URETHRA BIOPSY 12/27/2010 2:16 PM EDT Same as pre-op Special Needs ROSENDA CPT:11254 US ABDOMEN LIMITED Routine 11/29/2010 10:26 AM EST Pyelonephritis, unspecified Abdominal pain, unspecified site Abdominal pain, right upper quadrant Other abnormal blood chemistry URINALYSIS STAT 11/25/2010 3:00 AM EST DIFFERENTIAL STAT 11/25/2010 2:15 AM EST CBC WITH DIFF STAT 11/25/2010 2:15 AM EST COMPREHENSIVE METABOLIC PANEL STAT 11/25/2010 2:15 AM EST AMYLASE LEVEL STAT 11/25/2010 2:15 AM EST LIPASE LEVEL STAT 11/25/2010 2:[address] ABDOMEN PELVIS WO CONTRAST STAT 11/25/2010 1:59 AM EST XR ABDOMEN AP Routine 11/11/2010 2:52 PM EST Pain SCANNED RADIOLOGY REPORT 07/29/2010 12:00 AM EDT NM MYOCARDIAL PERFUSION SPECT STRESS AND REST Routine 07/19/2010 11:02 AM EDT LIPID SCREEN Routine 07/19/2010 9:58 AM EDT TROPONIN-I Timed 07/19/2010 9:[address] STRESS TEST LEXISCAN Routine 07/19/2010 8:51 AM EDT EK EKG 12 LEAD Routine 07/19/2010 6:42 AM EDT TROPONIN-I Timed 07/19/2010 2:17 AM EDT EK EKG 12 LEAD STAT 07/19/2010 1:06 AM EDT TROPONIN-I Timed 07/18/2010 9:07 PM EDT PARTIAL THROMBOPLASTIN TIME Routine 07/18/2010 9:07 PM EDT PT / INR Routine 07/18/2010 9:[address] ANGIOGRAM CHEST W CONTRAST STAT 07/18/2010 4:43 PM EDT XR CHEST PA AND LATERAL [place] 07/18/2010 3:24 PM EDT D-DIMER STAT 07/18/2010 3:00 PM EDT DIFFERENTIAL STAT 07/18/2010 3:00 PM EDT TROPONIN-I STAT 07/18/2010 3:00 PM EDT BASIC METABOLIC PANEL STAT 07/18/2010 3:00 PM EDT CBC WITH DIFF STAT 07/18/2010 3:00 PM EDT EK EKG 12 LEAD STAT 07/18/2010 2:57 PM EDT SCANNED OR REPORT 04/28/2010 12:00 AM EDT SCANNED OR REPORT 04/28/2010 12:00 AM EDT SCANNED ENDOSCOPY REPORT 01/10/2010 12:00 AM EDT DIAG HAND MIN 3 VIEWS RT Routine 11/05/2009 12:00 AM EST EK EKG REG Routine 10/05/2009 12:01 AM EST LIPASE LEVEL Routine 09/08/2009 4:50 PM EST DIAG HAND MIN 3 VIEWS RT Routine 09/08/2009 12:[address] ABDOMEN W/O CONTRAST Routine 09/08/2009 12:[address] ABDOMEN W/O CONTRAST Routine 09/08/2009 12:00 AM EST LIPASE LEVEL Routine 08/01/2009 2:27 PM EDT DIAG ABDOMEN KUB/UP &/OR DECUB & CHEST Routine 08/01/2009 12:00 AM EDT Results * DIABETES EYE EXAM (02/17/2025 11:45 AM EDT) Left Diabetic Retinopathy Not Present Not Present Present/Not Present SEP OFFICE Right Diabetic Retinopathy Not Present Not Present Present/Not Present SEP OFFICE Historical Provider HEALTH MAINTENANCE Edited Re sult - Final SEP OFFICE * LIPID PANEL REFLEX (05/06/2024) Only the most recent of22 resultswithin the time period is included. Triglycerides 145 MG/DL SEP OFFICE Comment:30-150 Cholesterol 144 0 - 200 MG/DL SEP OFFICE Comment:140-200 VLDL Cholesterol Luis 29 SEP OFFICE Comment:0-40 HDL Cholesterol 44 MG/DL SEP OFFICE Comment:40-60 CHOL/HDLC RATIO 3.3 (CALC) SEP OFFICE Comment:1-3.5 LDL Direct 69.84 MG/DL SEP OFFICE Comment:100-129 Blood VENOUS BLOOD / Unknown 05/06/2024 [facility] Provider CHEMISTRY ORDERABLES Final R esult Performing Organization Address [facility] de Phone Number SEP OFFICE * VITAMIN D 25 HYDROXY (05/06/2024) Only the most recent of35 resultswithin the time period is included. 25-HYDROXY, VITAMIN D - HISTORICAL 90.0 SEP OFFICE Comment:30-100 Blood VENOUS BLOOD / Unknown 05/06/2024 [facility] Provider CHEMISTRY ORDERABLES Final R esult Performing Organization Address City/[facility] Co de Phone Number SEP OFFICE * MICROALBUMIN/CREATININE RATIO URINE (05/06/2024) Only the most recent of10 resultswithin the time period is included. Microalb, Ur <6.000 <=31 MG/L SEP OFFICE Comment:0-16.7 Urine URINE SPECIMEN COLLECTION / Unknown 05/06/2024 Historical Provider URINE ORDERABLES Final Resul t Performing Organization Address [facility] de Phone Number SEP OFFICE * THYROGLOBULIN -REF LAB (05/06/2024) Only the most recent of3 resultswithin the time period is included. Thyroglobulin <0.1 NG/ML SEP OFFICE Comment:1.5-38.5 Blood VENOUS BLOOD / Unknown 05/06/2024 Historical Provider CHEMISTRY ORDERABLES Edited Result - Final Performing Organization Address [facility] de Phone Number SEP OFFICE * THYROGLOBULIN ANTIBODY -REF LAB (05/06/2024) Only the most recent of3 resultswithin the time period is included. Thyroglobulin <1.0 NG/ML SEP OFFICE Comment:0.0-0.90 Blood VENOUS BLOOD / Unknown 05/06/2024 [facility] Provider IMMUNOLOGY ORDERABLES Final Result Performing Organization Address [facility] Phone Number SEP OFFICE * C-REACTIVE PROTEIN (05/06/2024) Only the most recent of33 resultswithin the time period is included. CRP 10 MG/L SEP OFFICE Comment:0-4 Blood VENOUS BLOOD / Unknown 05/06/2024 Historical Provider CHEMISTRY ORDERABLES Final R esult Performing Organization Address [facility] de Phone Number SEP OFFICE * (ABNORMAL) THYROID STIMULATING HORMONE (05/06/2024) Only the most recent of39 resultswithin the time period is included. TSH 17.500(A) 0.400 - 4.500 MCIU/ML SEP OFFICE Comment:0.465-4.68 Blood VENOUS BLOOD / Unknown 05/06/2024 Historical Provider CHEMISTRY ORDERABLES Final R esult Performing Organization Address [facility] de Phone Number SEP OFFICE * HEMOGLOBIN A1C (05/06/2024) Only the most recent of41 resultswithin the time period is included. A1c 6.9 SEP OFFICE Comment:4.0-6.0 Blood VENOUS BLOOD / Unknown 05/06/2024 Historical Provider CHEMISTRY ORDERABLES Final R esult Performing Organization Address [facility] de Phone Number SEP OFFICE * VITAMIN B12 LEVEL (05/06/2024) Only the most recent of27 resultswithin the time period is included. Vitamin B12 500 PG/ML SEP OFFICE Comment:766-901 Blood VENOUS BLOOD / Unknown 05/06/2024 Historical Provider CHEMISTRY ORDERABLES Final R esult Performing Organization Address [facility] Phone Number SEP OFFICE * (ABNORMAL) COMPREHENSIVE METABOLIC PANEL (05/06/2024) Only the most recent of43 resultswithin the time period is included. Sodium 140 137 - 147 MMOL/L SEP OFFICE Comment:[facility]-13 6-145 Potassium 5.0 3.4 - 5.3 MMOL/L SEP OFFICE Comment:3.5-5.1 Chloride 107 99 - 108 MMOL/L SEP OFFICE Comment:98-107 CO2 29 MMOL/L SEP OFFICE Comment:22.0-30.0 Anion Gap 9.0 MMOL/L SEP OFFICE Comment:5-15 Blood Urea Nitrogen 20 MG/DL SEP OFFICE Comment:7-17 Creatinine 0.8 0.5 - 1.1 MG/DL SEP OFFICE Comment:0.52-1.04 GFR Afr Am 88 SEP OFFICE Comment:>60 GFR Non Afr Am 73 SEP OFFICE Comment:>60 Glucose Lvl 86 70 - 99 mg/dL SEP OFFICE Comment:74-100 Calcium 8.60(A) 8.70 - 10.70 MG/DL SEP OFFICE Comment:8.4-10.2 Bili Total 0.4 MG/DL SEP OFFICE Comment:0.2-1.3 AST 23 13 - 35 IU/L SEP OFFICE Comment:14-36 ALT 17 7 - 35 IU/L SEP OFFICE Comment:12-78 Total Protein 6.6 6.4 - 8.2 GM/DL SEP OFFICE Comment:6.3-8.2 Albumin 3.5 3.5 - 5.0 GM/DL SEP OFFICE Comment:3.5-5.0 Globulin 3.1 G/DL(CALC) SEP OFFICE Comment:1.3-3.2 Albumin/Globuli n Ratio 1.1 SEP OFFICE Comment:1.1-1.8 Blood VENOUS BLOOD / Unknown 05/06/2024 Historical Provider CHEMISTRY ORDERABLES Edited Result - Final Performing Organization Address City/[facility]/ZIP Co de Phone Number SEP OFFICE * SCANNED LABS (01/16/2024 6:33 PM EDT) Only the most recent of34 resultswithin the time period is included. 01/16/2024 6:33 PM EDT us Unknown Provider HEMATOLOGY ORDERABLES Final Res ult * T4, FREE (THYROXINE) (12/31/2023) Only the most recent of31 resultswithin the time period is included. Free T4 1.93 NG/DL SEP OFFICE Comment:Reference Range: 0.7 8-2.19 ng/dL Blood VENOUS BLOOD / Unknown 12/31/2023 Rojas Cunningham MD CHEMISTRY ORDERABLES Final Resu lt SEP OFFICE * LIPID SCREEN (12/31/2023) Only the most recent of11 resultswithin the time period is included. Triglyceride 129 40 - 160 MG/DL SEP OFFICE Comment:Reference Range: 30- 150 mg/dL Cholesterol 167 0 - 200 MG/DL SEP OFFICE Comment:Reference Range: 140 -200 mg/dL LDL Cholesterol 84.64 MG/DL SEP OFFICE Comment:Reference Range: 100 -129 mg/dL VLDL 26 MG/DL SEP OFFICE Comment:Reference Range: 0-4 0 mg/dL HDL 37 35 - 70 MG/DL SEP OFFICE Comment:Reference Range: 40- 60 mg/dL LDl/HDL Ratio 4.5 SEP OFFICE Comment:Reference Range: 1-3 .5 Blood VENOUS BLOOD / Unknown 12/31/2023 Rojas Cunningham MD CHEMISTRY ORDERABLES Final Resu lt Performing Organization Address City/[facility] de Phone Number SEP OFFICE * T3 FREE (09/18/2023) Only the most recent of7 resultswithin the time period is included. Free T4 1.05 NG/DL SEP OFFICE Comment:Reference Range: 0.7 8-2.19 ng/dL Blood VENOUS BLOOD / Unknown 09/18/2023 Rojas Cunningham MD CHEMISTRY ORDERABLES Final Resu lt Performing Organization Address [facility] de Phone Number SEP OFFICE * URIC ACID (03/20/2023 12:40 PM EDT) Only the most recent of3 resultswithin the time period is included. Uric Acid 5.0 2.4 - 5.7 mg/dL 03/20/2023 5:51 PM EDT [facility] Blood VENOUS BLOOD / Unknown Venipuncture / Unknown 03/20/2023 12:40 PM EDT 03/20/2023 12:40 PM EDT Rojas Cunningham MD CHEMISTRY ORDERABLES Final Resu lt Performing Organization Address City/[facility] Co de Phone Number [facility] [address] [place] [address] , [address] [place] [id number] * TRIIODOTHYRONINE (02/06/2023) Only the most recent of2 resultswithin the time period is included. T3 Free 3.1 PG/ML SEP OFFICE Comment:[facility] -2 .0-4.4 Blood VENOUS BLOOD / Unknown 02/06/2023 Historical Provider CHEMISTRY ORDERABLES Final R esult Performing Organization Address [facility] de Phone Number SEP OFFICE * FRUCTOSAMINE (08/07/2022) Only the most recent of10 resultswithin the time period is included. Fructosamine 273 MCMOL/L SEP OFFICE Comment:Reference Range: 0-2 85 umol/L Blood VENOUS BLOOD / Unknown 08/07/2022 Rojas Cunningham MD CHEMISTRY ORDERABLES Final Resu lt Performing Organization Address [facility] de Phone Number SEP OFFICE * VITAMIN C (ASCORBIC ACID) - REF LAB (05/04/2022) Vitamin C 0.1 SEP OFFICE Comment:Reference Range: 0.4 -2.0 mg/dL Blood VENOUS BLOOD / Unknown 05/04/2022 Yecenia Ruiz MD CHEMISTRY ORDERABLES Final Re sult Performing Organization Address [facility] de Phone Number SEP OFFICE * C-PEPTIDE (05/31/2021) Only the most recent of4 resultswithin the time period is included. C-Peptide 1.5 NG/ML SEP OFFICE Comment:1.1-4.4 [facility] Blood 05/31/2021 Rojas Cunningham MD CHEMISTRY ORDERABLES Edited Res ult - Final Performing Organization Address [facility] Co de Phone Number SEP OFFICE * THYROGLOBULIN AND TG AB REFLEX MONITOR-REF LAB (01/25/2021) Only the most recent of9 resultswithin the time period is included. Thyroglob Ab <1.0 IU/ML SEP OFFICE Comment:[place] 0.0-0.9 Blood 01/25/2021 Rojas Cunningham MD CHEMISTRY ORDERABLES Final Resu lt Performing Organization Address [facility] Co de Phone Number SEP OFFICE * APOLIPOPROTEIN B-REF LAB (07/06/2020) Only the most recent of6 resultswithin the time period is included. 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 No evidence for cervical radiculopathy Wiley Willard MD -Board Certified Physical Medicine and Rehabilitation Narrative [facility] - 04/12/2020 11:13 AM EDT Nerve conduction studies were performed on bilateral upper extremities. The right median motor study was normal. The right median antidromic sensory study showed slight prolongation distal latency with normal amplitude. Right median palmar study showed prolonged distal latency with normal amplitude. The left median motor and antidromic sensory study showed prolonged distal latencies with normal amplitude. Bilateral ulnar motor and antidromic sensory studies were normal. Bilateral radial sensory studies were normal Concentric needle examination was performed on bilateral upper extremities and cervical paraspinals. There was evidence of long-duration high amplitude polyphasic motor unit potentials seen in the left thenar muscles and slight increased amplitude in the right thenar muscles. All other muscles examined including paraspinals were normal. See scanned table for details. Michael Verdin MD NEUROLOGY ORDERABLES Final Res ult Performing Organization Address [facility] Co de Phone Number [facility] [address] [place] [address] * FRUCTOSAMINE -REF LAB (02/26/2019) Only the most recent of10 resultswithin the time period is included. Fructosamine 257 MCMOL/L SEP OFFICE Comment:Evita Crouch 0-285 Blood 02/26/2019 Rojas Cunningham MD CHEMISTRY ORDERABLES Final Resu lt Performing Organization Address City/[facility] Co de Phone Number SEP OFFICE * LIPOPROTEIN (A)-REF LAB (01/20/2019) Only the most recent of3 resultswithin the time period is included. Lipoprotein (A) 17 MG/DL SEP OFFICE Comment:<75 -[facility] Blood VENOUS BLOOD / Unknown 01/20/2019 Tiffany Mayen APRN CHEMISTRY ORDERABLES Fin al Result Performing Organization Address [facility] de Phone Number SEP OFFICE * FERRITIN (01/08/2019) Only the most recent of7 resultswithin the time period is included. Ferritin 45.1 9.0 - 150.0 NG/ML [facility] 1.1-264.0 Blood VENOUS BLOOD / Unknown 01/08/2019 Rojas Cunningham MD CHEMISTRY ORDERABLES Final Resu lt Performing Organization Address [facility] de Phone Number SEP OFFICE * VITAMIN E - REF LAB (07/05/2018 12:00 PM EDT) Alpha-Tocopherol (Vit E) mg/L 10.3 5.5 - 18.0 mg/L 07/09/2018 7:48 AM EDT [employer] Comment: Test developed and characteristics determined by [employer]. See Compliance Statement B: [email or web address] Gamma-Tocopherol (Vit E) mg/L 2.4 0.0 - 6.0 mg/L 07/09/2018 7:48 AM EDT [employer] Comment: Performed by [employer], [address] [place] [id number] www.[employer], Andrés Gramajo MD, Lab. Director Blood Venipuncture / Unknown 07/05/2018 12:00 PM EDT 07/05/2018 12:00 PM EDT us Lauren Fraser 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 [employer] CHEMISTRY ORDERABLES Final Result Performing Organization Address City/[facility]/ZIP Co de Phone Number [employer] [address] [place] [address] * IRON/UIBC (07/05/2018 12:00 PM EDT) Only the most recent of4 resultswithin the time period is included. Iron 96 30 - 160 mcg/dL 07/05/2018 2:05 PM EDT PREFERRED LAB [facility], [employer] UIBC 185 112 - 347 mcg/dL 07/05/2018 2:05 PM EDT PREFERRED [employer], [employer] Transferrin Sat 34 20 - 50 % 8 2:05 PM EDT PREFERRED EXENDIS Blood Venipuncture / Unknown 07/05/2018 12:00 PM EDT 07/05/2018 12:00 PM EDT Lauren Fraser APRN CHEMISTRY ORDERABLES Final Result Performing Organization Address [facility] Co de Phone Number PREFERRED EXENDIS [address] [place] [address], [place] [address] * COPPER LEVEL -REF LAB (07/05/2018 12:00 PM EDT) Copper 116 80 - 155 ug/dL 07/09/2018 7:30 AM EDT [employer] Comment: INTERPRETIVE INFORMATION: Copper, Serum or Plasma Serum copper may be elevated with infection, inflammation, stress, and copper supplementation. In females, elevated copper may also be caused by oral contraceptives and (concentrations may be elevated up to 3 times normal during the third trimester). Serum copper may be reduced by use of corticosteroids and zinc and by malnutrition or malabsorption. See Compliance Statement B at [email or web address] Performed by [employer], [address] [place] [address] www.[employer], Andrés Gramajo MD, Lab. Director Blood Venipuncture / Unknown 07/05/2018 12:00 PM EDT 07/05/2018 12:00 PM EDT Lauren Fraser 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 [employer] CHEMISTRY ORDERABLES Final Result Performing Organization Address [facility] de Phone Number [employer] [facility] [address] [place] [address] * VITAMIN B1 (THIAMINE) WHOLE BLOOD -REF LAB (07/05/2018 12:00 PM EDT) Only the most recent of4 resultswithin the time period is included. Vit B1 WB 133 70 - 180 nmol/L 07/10/2018 9:00 AM EDT [employer] Comment: INTERPRETIVE INFORMATION: Vitamin B1, Whole Blood This assay measures the concentration of thiamine diphosphate (TDP), the primary active form of vitamin B1. Approximately 90 percent of vitamin B1 present in whole blood is TDP. Thiamine and thiamine monophosphate, which comprise the remaining 10 percent, are not measured. Test developed and characteristics determined by [employer]. See Compliance Statement B: [employer]/CS Performed by [employer], [address] [place] [id number] www.[employer], Andrés Gramajo MD, Lab. Director Blood Venipuncture / Unknown 07/05/2018 12:00 PM EDT 07/05/2018 12:00 PM EDT Lauren Fraser APRN CHEMISTRY ORDERABLES Final Result Performing Organization Address [facility] Co de Phone Number [employer] [facility] [address] [place] [address] * ZINC LEVEL-REF LAB (07/05/2018 12:00 PM EDT) Only the most recent of4 resultswithin the time period is included. Zinc 68 60 - 120 ug/dL 07/09/2018 7:30 AM EDT [employer] Comment: INTERPRETIVE INFORMATION: Zinc, Serum or Plasma Circulating zinc concentrations are dependent on albumin status and are depressed with malnutrition. Zinc may also be lowered with infection, inflammation, stress, oral contraceptives, and . Zinc may be elevated with zinc supplementation or fasting. Elevated zinc concentrations may interfere with copper absorption. Test developed and characteristics determined by [employer]. See Compliance Statement B: [employer] Performed by [employer], [address] [place] [address] www.[employer], Andrés Gramajo MD, Lab. Director Blood Venipuncture / Unknown 07/05/2018 12:00 PM EDT 07/05/2018 12:00 PM EDT us Lauern Fraser 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 [employer] CHEMISTRY ORDERABLES Final Result Performing Organization Address City/[facility]/ZIP Co de Phone Number [employer] [employer] [address] [place] [address] * VITAMIN A (RETINOL) -REF LAB (07/05/2018 12:00 PM EDT) Only the most recent of3 resultswithin the time period is included. Vit A(Retinol) 0.37 0.30 - 1.20 mg/L 07/09/2018 7:48 AM EDT [employer] Retinyl Palm 0.02 0.00 - 0.10 mg/L 07/09/2018 7:48 AM EDT [employer] Vit A Intrp Normal 07/09/2018 7:48 AM EDT [employer] Comment: Test developed and characteristics determined by [employer]. See Compliance Statement B: [employer] Performed by [employer], [address] [place] [address] www.[employer], Andrés Gramajo MD, Lab. Director Blood Venipuncture / Unknown 07/05/2018 12:00 PM EDT 07/05/2018 12:00 PM EDT us Lauren Fraser 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 [employer] CHEMISTRY ORDERABLES Final Result Performing Organization Address City/[facility]/ZIP Co de Phone Number [employer] [employer] [address] [place] [address] * (ABNORMAL) FOLATE LEVEL (07/05/2018 12:00 PM EDT) Only the most recent of3 resultswithin the time period is included. Folate >16.00(H) 4.50 - 16.00 ng/mL 07/05/2018 2:20 PM EDT [employer] Blood Venipuncture / Unknown 07/05/2018 12:00 PM EDT 07/05/2018 12:00 PM EDT Narrative PREFERRED EXENDIS - 07/05/2018 2:20 PM EDT Ingestion of abdirashid doses of biotin (>5 mg/day) taken within 8 hours of drawing blood sample can interfere with this immunoassay test. Lauren Fraser APRN CHEMISTRY ORDERABLES Final Result Performing Organization Address [facility]/ZIP Co de Phone Number [facility] [address] [place] [address] , [place] [address] * MISCELLANEOUS LAB (06/12/2018) Only the most recent of2 resultswithin the time period is included. Thyroglobulin <0.1 NG/ML SEP OFFICE Comment:1.5-38.5 -[facility] Thyroglob Ab <0.1 IU/ML SEP OFFICE Comment:0.0-0.9 Blood VENOUS BLOOD / Unknown 06/12/2018 Rojas Cunningham MD HEMATOLOGY ORDERABLES Final Res ult SEP OFFICE * FOLATE, RBC -REF LAB (01/02/2018 8:52 AM EDT) Only the most recent of2 resultswithin the time period is included. HCT (from client) 40.5 % 01/03/2018 11:26 PM EDT [employer] Folate RBC 587 >=366 ng/mL 01/03/2018 11:26 PM EDT [employer] Comment: Performed by [employer], [address] [place] [id number] www.[employer], Andrés Gramajo MD, Lab. Director Blood Venipuncture / Unknown 01/02/2018 8:52 AM EDT 01/02/2018 8:52 AM EDT Gila Winter APRN CHEMISTRY ORDERABLES Final Res ult Performing Organization Address [facility] de Phone Number [employer] [address] [place] [address] * IONIZED CALCIUM - INPATIENT (10/24/2017 11:44 AM EST) Only the most recent of6 resultswithin the time period is included. Calcium Ionized 1.17 1.12 - 1.32 mmol/L 10/24/2017 12:10 PM EST [facility] Blood Venipuncture / Unknown 10/24/2017 11:44 AM EST 10/24/2017 11:44 AM EST Rojas Cunningham MD CHEMISTRY ORDERABLES Final Resu lt Performing Organization Address [facility] de Phone Number [facility] [address] [place] [address] * BILL TG CL (10/24/2017 11:44 AM EST) [id number] P Billed 10/26/2017 2:22 AM EST [employer] Comment: Performed by [employer], [address] [place] [id number] www.[employer], Andrés Gramajo MD, Lab. Director Blood Venipuncture / Unknown 10/24/2017 11:44 AM EST 10/24/2017 11:44 AM EST Rojas Cunningham MD IMMUNOLOGY ORDERABLES Final Res ult Performing Organization Address [facility] de Phone Number [employer] [address] [place] [address] * PARATHYROID HORMONE INTACT (10/24/2017 11:44 AM EST) Only the most recent of8 resultswithin the time period is included. PTH Intact 32.09 15.00 - 65.00 pg/mL 10/24/2017 3:58 PM EST [facility] Blood Venipuncture / Unknown 10/24/2017 11:44 AM EST 10/24/2017 11:44 AM EST Narrative [facility] - 10/24/2017 3:58 PM EST Intact PTH Calcium Interpretation ------- 15 - 65 8.6 - 10.2 Normal > 65 > 10.2 Primary Hyperparathyroidism < 20 > 10.2 Non-Parathyroid hypercalcemia < 15 < 8.6 Hypoparathyroidism Consider the above as guidelines only. PTH results should be interpreted in conjunction with the total or ionized calcium level. The finding of a persistently high-normal calcium accompanied by a high-normal PTH (or a low-normal calcium accompanied by a low-normal PTH) warrants further investigation. Although the PTH may itself be within normal limits, it may be inappropriately high (or low) relative to the circulating calcium level. Rojas Cunningham MD CHEMISTRY ORDERABLES Final Resu lt Performing Organization Address [facility]/ZIP Co de Phone Number [facility] [address] [place] [address] * APOLIPOPROTEIN, A-1-REF LAB (09/04/2017) Pathologist [facility] Apolipoprotein A-1 138 SEP OFFICE Comment:116-209 Apolipoprotein B 94 SEP OFFICE Comment:54-133 Apolipo. B/A-1 Ratio 0.7 SEP OFFICE Comment:0.0-0.6 Blood VENOUS BLOOD / Unknown 09/04/2017 Rojas Cunningham MD CHEMISTRY ORDERABLES Final Resu lt Performing Organization Address [facility]/ZIP Co de Phone Number SEP OFFICE * CALCIUM, IONIZED, SERUM-REF LAB (09/04/2017) Calcium Ionized 5.0 MMOL/L SEP OFFICE Comment:4.5-5.6 [place] Blood VENOUS BLOOD / Unknown 09/04/2017 Rojas Cunningham MD CHEMISTRY ORDERABLES Final Resu lt SEP OFFICE * (ABNORMAL) BASIC METABOLIC PANEL (09/04/2017) Only the most recent of10 resultswithin the time period is included. Sodium 141 137 - 147 MMOL/L SEP OFFICE Comment:136-145 Potassium 4.1 3.4 - 5.3 MMOL/L SEP OFFICE Comment:3.5-5.1 Chloride 104 98 - 107 mmol/L SEP OFFICE Comment:98-107 CO2 29 MMOL/L SEP OFFICE Comment:24-33 Anion Gap 12.1 MMOL/L SEP OFFICE Comment:10-20 Glucose Lvl 182 MG/DL SEP OFFICE Comment:70-99 BUN 18 4 - 21 MG/DL SEP OFFICE Comment:7-18 Creatinine 0.8 0.5 - 1.1 MG/DL SEP OFFICE Comment:0.55-1.02 BUN/Creatinine Ratio 23 SEP OFFICE Comment:12-20 Total Protein 6.9 6.4 - 8.2 GM/DL SEP OFFICE Comment:6.4-8.2 Albumin 3.5 GM/DL SEP OFFICE Comment:3.4-5.0 Globulin 3.4 G/DL(CALC) SEP OFFICE Comment:1.5-4.0 A/G Ratio 1.0 (CALC) SEP OFFICE Comment:0.5-2.0 Calcium 8.90 8.70 - 10.70 MG/DL SEP OFFICE Comment:8.5-10.1 Osmolality Calc 287 SEP OFFICE Comment:272-288 GFR Non Afr Am 60 SEP OFFICE Comment:>60 GFR Afr Am 60 SEP OFFICE Comment:>60 Total Bilirubin 0.6 0.1 - 1.4 MG/DL SEP OFFICE Comment:0.2-1.0 AST 12(A) 13 - 35 IU/L SEP OFFICE Comment:15-37 ALT 22 7 - 35 IU/L SEP OFFICE Comment:14-59 Alk Phos 96 25 - 125 IU/L SEP OFFICE Comment:46-116 Triglyceride 131 40 - 160 MG/DL SEP OFFICE Comment:<150 Blood VENOUS BLOOD / Unknown 09/04/2017 Rojas Cunningham MD CHEMISTRY ORDERABLES Final Resu lt Performing Organization Address [facility] de Phone Number SEP OFFICE * (ABNORMAL) VITAMIN B12/ FOLIC ACID (06/14/2017 1:45 PM EDT) Vitamin B12 994(H) 211 - 946 pg/mL [facility] Folic Acid Lvl 12.57 4.50 - 37.30 ng/mL [facility] Blood specimen (specimen) UPPER LIMB STRUCTURE / Unknown 06/14/2017 1:45 PM EDT 06/14/2017 6:33 PM EDT Lauren Fraser 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 [employer] CHEMISTRY ORDERABLES Edite d Result - Final Performing Organization Address [facility] [place] [address] * MAGNESIUM LEVEL (06/14/2017 1:45 PM EDT) Only the most recent of3 resultswithin the time period is included. Pathologist [facility] Magnesium 2.1 1.6 - 2.4 mg/dL [facility] Blood specimen (specimen) UPPER LIMB STRUCTURE / Unknown 06/14/2017 1:45 PM EDT 06/14/2017 10:15 PM EDT Lauren Fraser 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 [employer] CHEMISTRY ORDERABLES Final Result Performing Organization Address [facility] [place] [address] * (ABNORMAL) CBC (06/06/2017 2:04 PM EDT) Only the most recent of4 resultswithin the time period is included. WBC 9.0 4.0 - 11.0 x10(3)/mcL [facility] RBC 4.79 3.80 - 5.10 x10(6)/mcL [facility] Hgb 12.5 12.0 - 15.6 gm/dL [facility] Hct 38.6 35.7 - 45.9 % [facility] MCV 80.6(L) 82.5 - 99.8 fL [facility] MCH 26.1(L) 27.0 - 34.3 pg [facility] MCHC 32.4 32.1 - 35.3 gm/dL [facility] RDW 14.8 11.5 - 15.0 % [facility] Platelet 210 144 - 423 x10(3)/mcL [facility] MPV 9.3 6.8 - 10.8 fL [facility] Blood specimen (specimen) 06/06/2017 2:04 PM EDT 06/06/2017 2:04 PM EDT us Gila Winter 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 [employer] HEMATOLOGY ORDERABLES Final Re sult [facility] [address] [place] [address] * SCANNED RHYTHM STRIPS (06/02/2017 8:20 AM EDT) Only the most recent of14 resultswithin the time period is included. Anatomical Region Laterality Modality Other 06/02/2017 8:20 AM EDT us Unknown Unknown IMG ECG ORDERABLES Final Result * (ABNORMAL) GLUCOSE METER POC (05/31/2017 12:51 PM EDT) Only the most recent of6 resultswithin the time period is included. [facility] Glucose Meter POC 205(H) 70 - 100 mg/dL [facility] Sample Type Capillary [facility] Patient Status Non-Critical Patient [facility] Blood specimen (specimen) 05/31/2017 12:51 PM EDT 05/31/2017 12:51 PM EDT Roxie Choi MD POINT OF CARE TEST ORDERABLES Fi nal Result Performing Organization Address City/[facility] Co de Phone Number [facility] [address] [facility] [place] [address] * DIFFERENTIAL (05/31/2017 5:44 AM EDT) Only the most recent of10 resultswithin the time period is included. Neut Percent 73.6 % [facility] Lymph Percent 18.3 % [facility] [place] Percent 7.0 % [facility] Eos Percent 0.5 % [facility] Baso Percent 0.6 % [facility] Neut# 6.9 1.8 - 7.7 x10(3)/mcL [facility] Lymph# 1.7 0.6 - 4.8 x10(3)/mcL [facility] [place]# 0.7 0.0 - 1.3 x10(3)/mcL [facility] Eos# 0.0 0.0 - 0.5 x10(3)/mcL [facility] Baso# 0.1 0.0 - 0.2 x10(3)/mcL [facility] Blood specimen (specimen) 05/31/2017 5:44 AM EDT 05/31/2017 6:02 AM EDT [facility] Jonathan Choi MD HEMATOLOGY ORDERABLES Final Resu lt Performing Organization Address City/[facility] Co de Phone Number [facility] [address] [place] [address] * (ABNORMAL) CBC WITH AUTO DIFF (05/31/2017 5:44 AM EDT) Only the most recent of10 resultswithin the time period is included. WBC 9.4 4.0 - 11.0 x10(3)/mcL [facility] RBC 4.64 3.80 - 5.10 x10(6)/mcL [facility] Hgb 12.3 12.0 - 15.6 gm/dL [facility] Hct 37.0 35.7 - 45.9 % [facility] MCV 79.8(L) 82.5 - 99.8 fL [facility] MCH 26.4(L) 27.0 - 34.3 pg [facility] MCHC 33.1 32.1 - 35.3 gm/dL [facility] RDW 15.0 11.5 - 15.0 % [facility] Platelet 179 144 - 423 x10(3)/mcL [facility] MPV 8.9 6.8 - 10.8 fL [facility] Blood specimen (specimen) 05/31/2017 5:44 AM EDT 05/31/2017 6:02 AM EDT Roxie Choi MD HEMATOLOGY ORDERABLES Final Resu lt Performing Organization Address [facility] de Phone Number [facility] [address] [place] [address] * PARTIAL THROMBOPLASTIN TIME (05/30/2017 7:38 PM EDT) Only the most recent of2 resultswithin the time period is included. PTT 30.9 26.0 - 36.4 second(s) [facility] Comment: Therapeutic range for unfractionated heparin: 53.0 - 94.4 seconds Therapeutic range for direct thrombin inhibitors: Argatroban is 1.5 to 3 times the aPTT baseline. Lepirudin is 1.5 to 2 times the aPTT baseline. The aPTT should not exceed 100 seconds. The dosage of Argatroban should be decreased in patients with hepatic impairment. The dosage of Lepirudin should be decreased in renal insufficiency. Blood specimen (specimen) UPPER LIMB STRUCTURE / Unknown 05/30/2017 7:38 PM EDT 05/30/2017 7:43 PM EDT us Roxie Choi MD HEMATOLOGY ORDERABLES Final Resu lt Performing Organization Address [facility] de Phone Number [facility] [address] [place] [address] * PT / INR (05/30/2017 7:38 PM EDT) Only the most recent of3 resultswithin the time period is included. PT 12.7 10.1 - 12.9 second(s) [facility] INR 1.09 0.88 - 1.12 [facility] Comment: Level of Therapy Indications Target INR Range Standard Dose Treatment and prophylaxis of venous 2.0 - 3.0 thrombosis, pulmonary embolism High Dose High risk patients with mechanical 2.5 - 3.5 heart valves Blood specimen (specimen) UPPER LIMB STRUCTURE / Unknown 05/30/2017 7:38 PM EDT 05/30/2017 7:43 PM EDT us Jonathan Choi MD HEMATOLOGY ORDERABLES Final Resu lt [facility] [address] [place], [place] [id number] * PATHOLOGY TISSUE REPORT (05/30/2017 10:23 AM EDT) Only the most recent of2 resultswithin the time period is included. Surgical Pathology Report PATIENT NAME:ANGELES KIMBROUGH Surgical Pathology Report Accession Number Collected Date/Time Received Date/Time [id number] 05/30/17 10:23 EDT 05/30/17 20:33 EDT Diagnosis Greater curvature of stomach, partial resection: - Fundic mucosa, submucosa and muscularis propria showing no evidence of malignancy. - Mild associated chronic inflammation. Mariela Chew (Electronically signed by) Verified: 06/01/2017 [facility] Clinical Information Morbid obesity (HCC) [E66.01] Morbid obesity (HCC) [E66.01] Routine Gross Description Received in formalin labeled with the patients name and greater curvature of stomach is a crescent shaped portion of stomach (greater curvature 22.1 cm, staple line 18.6 cm, ranging from 2.1 to 3.8 cm in diameter) with smooth zhang-celis serosa and scant adherent yellow-celis fatty tissue. The mucosa is pink-celis, unremarkable, with normal folding pattern and no polyps, masses, or areas of ulceration grossly identified. [employer]er sections are submitted in one cassette. / TE JUAN/LATOYA Microscopic Description Microscopic examination is performed and the findings corroborate the diagnosis. [facility] 05/30/2017 10:2 3 AM EDT us M Jonathan Choi MD PATHOLOGY ORDERABLES Final Resul t Performing Organization Address [facility] [place] [address] * INTRAOP AIRWAY PLACEMENT (05/30/2017 10:11 AM EDT) Narrative [facility] - 05/30/2017 10:11 AM EDT José Meyer CRNA 05/30/2017 10:12 AM Intraop Airway Placement: Date/Time: 05/30/2017 10:06 AM Induction type: IV Mask size: Large adult Pre-Oxygenation: BMI guided pre-O2, Ramping and Standard Mask ventilation: Easy mask ventilation Technique: Video laryngoscope Laryngoscope blade: Rainey Blade size: 3 Grade view: I Airway type: ETT- cuffed Topical Anesthetic/Lubricant: LTA 4% Lidocaine Intubation assist devices: Stylet 14fr Device size: 7.5mm Secured at: 19 cm Secured by: Tape Measured from: Lips Placement verified: Auscultaion, End tidal CO2 and Symmetric chest wall motion Condition: Atraumatic and Unchanged Insertion attempts: 1 Title: PAYROLL SECRETARY Procedure Note José Meyer CRNA - 05/30/2017 10:11 AM EDT Intraop Airway Placement: Date/Time: 05/30/2017 10:06 AM Induction type: IV Mask size: Large adult Pre-Oxygenation: BMI guided pre-O2, Ramping and Standard Mask ventilation: Easy mask ventilation Technique: Video laryngoscope Laryngoscope blade: Rainey Blade size: 3 Grade view: I Airway type: ETT- cuffed Topical Anesthetic/Lubricant: LTA 4% Lidocaine Intubation assist devices: Stylet 14fr Device size: 7.5mm Secured at: 19 cm Secured by: Tape Measured from: Lips Placement verified: Auscultaion, End tidal CO2 and Symmetric chest wallmotion Condition: Atraumatic and Unchanged Insertion attempts: 1 Title: PAYROLL SECRETARY us M Flor Massey MD ID ANESTHESIA Final Result Performing Organization Address [facility] Co de Phone Number [facility] [address] [place] [address] * CROSSMATCH SUMMARY (05/30/2017 8:48 AM EDT) Blood specimen (specimen) 05/30/2017 8:48 AM EDT 05/30/2017 8:48 AM EDT Roxie Choi MD BLOOD BANK ORDERABLES Final Resu lt Performing Organization Address City/[facility] Co de Phone Number [facility] [address] [place] [address] * ABORH (05/23/2017 12:15 PM EDT) AB[facility]h Int O [facility] Blood specimen (specimen) 05/23/2017 12:15 PM EDT 05/23/2017 12:21 PM EDT Karin Ashley APRN BLOOD BANK ORDERABLES Final R esult Performing Organization Address [facility] de Phone Number [facility] [address] [place] [address] * ANTIBODY SCREEN IGG (05/23/2017 12:15 PM EDT) Pathologist [facility] ABSC IgG Int Negative [facility] Blood specimen (specimen) 05/23/2017 12:15 PM EDT 05/23/2017 12:21 PM EDT Karin Ashley 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 [employer] BLOOD BANK ORDERABLES Final R esult Performing Organization Address [facility] de Phone Number [facility] [address] [place] [address] * CORTISOL SALIVA-REF LAB (03/29/2017 12:59 AM EDT) Pathologist [facility] Cortisol Saliva-ARUP 0.029 mcg/dL [facility] Comment: INTERPRETIVE INFORMATION: Cortisol, Saliva Effective 10/30/2005 For collection at 2300 hr. the normal cortisol concentration is less than 0.112 ug/dL. Patients with Cushings Syndrome have concentrations of 0.112 ug/dL or greater. a.m. (1987-2730) p.m. (noon-1800) Males 2.5-7 years 0.034-0.645 ug/dL 0.053-0.607 ug/dL 8-11 years 0.084-0.839 ug/dL less than 0.215 ug/dL 12-18 years 0.021-0.883 ug/dL less than 0.259 ug/dL 19-30 years 0.112-0.743 ug/dL less than 0.308 ug/dL 31-50 years 0.122-1.551 ug/dL less than 0.359 ug/dL 51 and older 0.112-0.812 ug/dL less than 0.228 ug/dL Females 2.5-7 years 0.034-0.645 ug/dL 0.053-0.607 ug/dL 8-11 years 0.084-0.839 ug/dL less than 0.215 ug/dL 12-18 years 0.021-0.883 ug/dL less than 0.259 ug/dL 19-30 years 0.272-1.348 ug/dL less than 0.359 ug/dL 31-50 years 0.094-1.515 ug/dL less than 0.181 ug/dL 51 and older 0.149-0.739 ug/dL 0.022-0.254 ug/dL Performed by [employer], [address] [place] [id number] [email or web address], Andrés Gramajo MD - Lab. Director Saliva specimen (specimen) 03/29/2017 12:59 AM EDT 03/30/2017 4:10 PM EDT us Gila Winter 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 [employer] CHEMISTRY ORDERABLES Final Res ult [facility] [address] [place] [id number] * HEPATIC FUNCTION PANEL (11/07/2016) Only the most recent of3 resultswithin the time period is included. Protein, Total 6.9 SEP OFFICE Comment:6-8.5 [facility] Albumin 4.2 GM/DL SEP OFFICE Comment:3.5-5.5 Total Bilirubin 0.2 0.1 - 1.4 MG/DL SEP OFFICE Comment:0.0-1.2 Alk Phos 92 25 - 125 IU/L SEP OFFICE Comment:39-117 AST 18 13 - 35 IU/L SEP OFFICE Comment:0-40 ALT 21 7 - 35 IU/L SEP OFFICE Comment:0-32 Bili Direct 0.09 0.01 - 0.4 MG/DL SEP OFFICE Comment:0-0.4 Blood specimen (specimen) UPPER LIMB STRUCTURE / Unknown 11/07/2016 us Shlomo Corbett MD CHEMISTRY ORDERABLES Edited R esult - Final SEP OFFICE * US RETROPERITONEAL LIMITED (10/27/2016 3:07 PM EST) Anatomical Region Laterality Modality Ultrasound Impressions 10/30/2016 1:17 PM EST : 1. No pseudoaneurysm of the right groin. Tanvi Ornelas MD. [address] [facility] [place] [address] [place], [address] Narrative 10/30/2016 1:17 PM EST EXAMINATION: Arterial Duplex of the Right Groin Dated 10/27/2016. CLINICAL HISTORY: Right groin tenderness and palpable lump following heart catheterization one week ago. COMPARISON: None. TECHNIQUE: Duplex scan was performed using zhang scale imaging with Doppler spectral analysis and color flow. FINDINGS: The visualized right common femoral artery and vein demonstrate normal arterial and venous waveforms respectively without evidence of AV fistula. There is no focal fluid collection within the right groin and no vascular flow outside of the visualized vessels. Eric Be MD [facility] US ORDERABLES Final Result * (ABNORMAL) LIPOPROFILE NMR, PARTICLE ANALYSIS ONLY-REF LAB (08/22/2016 1:21 PM EST) LDL Particle Number by NMR [id number](H) <1000 nmol/L [facility] Comment: Low < 1000 Moderate 1000 - 1299 Borderline-High 1300 - 1599 High 1600 - 2000 Very High > 2000 Performed at: [place] [address] LDL Particle Size 20.0 >20.5 nm [employer] Comment: INTERPRETATIVE INFORMATION PARTICLE CONCENTRATION AND SIZE <--Lower CVD Risk Higher CVD Risk--> LDL AND HDL PARTICLES Percentile in Reference Population HDL-P (total) High 75th 50th 25th Low >34.9 34.9 30.5 26.7 <26.7 . Small LDL-P Low 25th 50th 75th High <117 117 527 839 >839 . LDL Size <-Large (Pattern A)-> <-Small (Pattern B)-> 23.0 20.6 20.5 19.0 Small LDL-P and LDL Size are associated with CVD risk, but not after LDL-P is taken into account. . These assays were developed and their performance characteristics determined by [employer]. These assays have not been cleared by the US Food and Drug Administration. The clinical utility of these laboratory values have not been fully established. Performed at: [place] [address] LDL Size 20.0 >=20.8 nm [facility] Comment: Performed at: [place] [address] HDL Particle Number 30.4(L) >=30.5 mcmol/L [facility] Comment: Performed at: [place] [address] HDL Size 8.8(L) >=9.2 nm [facility] Comment: Performed at: [place] [address] Large HDL Particle Number 2.6(L) >=4.8 mcmol/L [facility] Comment: Performed at: [place] [address] Small LDL Particle Number 1027(H) <=527 nmol/L [facility] Comment: Performed at: [place] [address] Small LDL-P 1027(H) <=527 nmol/L [facility] Comment: Performed at: [place] [address] VLDL Size 60.2(H) <=46.6 nm [facility] Comment: Performed at: [place] [address] Large VLDL Particle Number 10.0(H) <=2.7 nmol/L [facility] Comment: Performed at: [place] [address] LP Insulin Resistance Score 83(H) <=45 [facility] Comment: INSULIN RESISTANCE / DIABETES RISK MARKERS <--Insulin Sensitive Insulin Resistant--> Percentile in Reference Population Large VLDL-P Low 25th 50th 75th High <0.9 0.9 2.7 6.9 >6.9 . Small LDL-P Low 25th 50th 75th High <117 117 527 839 >839 . Large HDL-P High 75th 50th 25th Low >7.3 7.3 4.8 3.1 <3.1 . VLDL Size Small 25th 50th 75th Large <42.4 42.4 46.6 52.5 >52.5 . LDL Size Large 75th 50th 25th Small >21.2 21.2 20.8 20.4 <20.4 . HDL Size Large 75th 50th 25th Small >9.6 9.6 9.2 8.9 <8.9 Insulin Resistance Score LP-IR SCORE Low 25th 50th 75th High <27 27 45 63 >63 LP-IR Score is inaccurate if patient is non-fasting. . The LP-IR score is a laboratory developed index that has been associated with insulin resistance and diabetes risk and should be used as one component of a physician's clinical assessment. Neither the LP-IR score nor the subclasses listed above have been cleared by the US Food and Drug Administration. Performed at: [address] [address] Blood specimen (specimen) 08/22/2016 1:21 PM EST 08/22/2016 6:27 PM EST Rojas Cunningham MD CHEMISTRY ORDERABLES Final Resu lt Performing Organization Address [facility] de Phone Number [facility] [address] [place] [id number] * IGF-1 (INSULIN-LIKE GROWTH FACTOR 1) -REF LAB (08/22/2016 1:21 PM EST) Only the most recent of2 resultswithin the time period is included. IGF-1 103 53 - 287 ng/mL [facility] Comment: REFERENCE INTERVAL: IGF-1 (Insulin-Like Growth I) IGF-1 values well above the age and gender matched reference interval indicate a possible pituitary tumor secreting growth hormone. IGF-1 values below the reference interval indicate a possible GH deficiency. Access complete set of age- and/or gender-specific reference intervals for this test in the [facility] ([employer]). Performed by [employer], [address] [place] [address] [email or web address], Lion Mooney MD - Lab. Director Blood specimen (specimen) 08/22/2016 1:21 PM EST 08/22/2016 11:16 PM EST Rojas Cunningham MD CHEMISTRY ORDERABLES Final Resu lt [employer] [address] [place] [address] * PHOSPHORUS LEVEL (08/22/2016 1:21 PM EST) Only the most recent of2 resultswithin the time period is included. Phosphorus 4.0 2.5 - 4.5 mg/dL [facility] Blood specimen (specimen) UPPER LIMB STRUCTURE / Unknown 08/22/2016 1:21 PM EST 08/22/2016 5:53 PM EST Rojas Cunningham MD CHEMISTRY ORDERABLES Final Resu lt Performing Organization Address [facility] Co de Phone Number [facility] [address] [place] [address] * (ABNORMAL) NMR LIPOPROFILE-REF LAB (06/17/2015) Only the most recent of4 resultswithin the time period is included. LDL Particle Number by NMR 1,225 SEP OFFICE Comment:<1000, fax from [facility] HDL Particle Number 25.3 SEP OFFICE Comment:>30.5 Small LDL Particle Number 800 SEP OFFICE Comment:<=527 LDL Size 20.1 SEP OFFICE Comment:>20.5 Cholesterol 170 0 - 200 mg/dL SEP OFFICE Comment:100-199 LDL Calculated 83 0 - 160 mg/dL SEP OFFICE Comment:0-99 HDL 35 mg/dl SEP OFFICE Comment:>39 Triglyceride 262(A) 40 - 160 mg/dL SEP OFFICE Comment:0-149 LP Insulin Resistance Score 79 SEP OFFICE Comment:<=45 Blood specimen (specimen) 06/17/2015 Rojas Cunningham MD CHEMISTRY ORDERABLES Edited Res ult - Final Performing Organization Address [facility] Co de Phone Number SEP OFFICE * C-REACTIVE PROTEIN HIGH SENSITIVITY (06/17/2015) Only the most recent of2 resultswithin the time period is included. CRP 20.2 SEP OFFICE Comment:0.0-9.0, fax from [facility] Blood specimen (specimen) UPPER LIMB STRUCTURE / Unknown 06/17/2015 us Rojas Cunningham MD CHEMISTRY ORDERABLES Final Resu lt Performing Organization Address [facility] Co de Phone Number SEP OFFICE * C-PEPTIDE -REF LAB (02/02/2015) Only the most recent of7 resultswithin the time period is included. C-Peptide 1.3 SEP OFFICE Comment:1.1-4.4, FAX FROM [facility] Blood specimen (specimen) UPPER LIMB STRUCTURE / Unknown 02/02/2015 us Rojas Cunningham MD CHEMISTRY ORDERABLES Final Resu lt Performing Organization Address [facility] de Phone Number SEP OFFICE * (ABNORMAL) NMR LIPOPROFILE 8008 (10/13/2014 10:53 AM EST) Only the most recent of3 resultswithin the time period is included. LDL Particle Number by NMR 2,015 SEP OFFICE Comment:<1000, FAX FROM [facility] HDL Particle Number 30.4 SEP OFFICE Comment:>30.5 Small LDL Particle Number [id number] SEP OFFICE Comment:<527 REAL-LDL Size Pattern 19.9 SEP OFFICE Comment:>20.5 Cholesterol 202(A) 0 - 200 mg/dL SEP OFFICE Comment:<200 LDL Calculated 119 0 - 160 mg/dL SEP OFFICE Comment:<100 HDL 39 mg/dl SEP OFFICE Comment:>40 Triglyceride 219(A) 40 - 160 mg/dL SEP OFFICE Comment:<150 LP Insulin Resistance Score 83 SEP OFFICE Comment:<45 Blood specimen (specimen) 10/13/2014 10:53 AM EST Result Ivone Cunningham MD CHEMISTRY ORDERABLES Edited Res ult - Final Performing Organization Address [facility] Co de Phone Number SEP OFFICE * POCT GLUCOSE (03/10/2014 12:17 PM EDT) Only the most recent of11 resultswithin the time period is included. Glucose 150 60 - 200 mg/dL SEP OFFICE Comment:nonfasting Lot Number SEP OFFICE Expiration Date SEP OFFICE SeriAl # SEP OFFICE Meter SEP OFFICE 03/10/2014 12:1 7 PM EDT Rojas Cunningham MD POINT OF CARE TEST ORDERABLES F inal Result Performing Organization Address [facility] Co de Phone Number SEP OFFICE * LACTIC ACID (01/30/2014 4:11 PM EDT) Lactic Acid 2.0 0.5 - 2.2 mmol/L [facility] Blood specimen (specimen) UPPER LIMB STRUCTURE / Unknown 01/30/2014 4:11 PM EDT 01/30/2014 4:20 PM EDT Rojas Cunningham MD CHEMISTRY ORDERABLES Final Resu lt Performing Organization Address [facility] Co de Phone Number [facility] [address] [place] [address] * SCANNED RADIOLOGY REPORT (06/25/2013 11:22 AM EDT) Only the most recent of3 resultswithin the time period is included. Anatomical Region Laterality Modality Other 06/25/2013 11:2 2 AM EDT us Unknown Unknown IMG DIAGNOSTIC IMAGING ORDERABLE S Final Result * NM MYOCARDIAL PERFUSION SPECT STRESS AND REST (06/25/2013 10:28 AM EDT) Only the most recent of2 resultswithin the time period is included. Ejection Fraction 68 % PYRAMIS Anatomical Region Laterality Modality Nuclear Medicine 06/25/2013 8:15 AM EDT Impressions 06/25/2013 2:50 PM EDT SPECT RESULTS Technical Quality: Raw Data Analysis: Perfusion: Mild Heterogeneity of isotope uptake noted but not in a pattern consistent with ischemia. FUNCTION (calculated via Gated SPECT) Post Stress LV EF:68 % TID: 0.87 EDV: 96 ml (70-100 ml) ESV: 31 ml (30-50 ml) EDVI: 46 ml/m? (30-50 ml/m?) ESVI: 15 ml/m? (15-30 ml/m?) Technical Quality: LV Size & Function: Normal left ventricular size and function. LV Regional Function: No wall motion abnormalities. IMPRESSIONS There are no significant reversible defects. Narrative Procedure Note Jovany Rosario MD - 06/25/2013 IMPRESSION SPECT RESULTS Technical Quality: Raw Data Analysis: Perfusion: Mild Heterogeneity of isotope uptake noted but notin a pattern consistent with ischemia. FUNCTION (calculated via Gated SPECT) Post Stress LV EF:68 %TID: 0.87 EDV: 96 ml (70-100 ml) ESV: 31 ml(30-50 ml) EDVI: 46 ml/m? (30-50 ml/m?) ESVI: 15ml/m? (15-30 ml/m?) Technical Quality: LV Size & Function: Normal left ventricular size and function. LV Regional Function: No wall motion abnormalities. IMPRESSIONS There are no significant reversible defects. Jovany Rosario MD [facility] [place] CARDIAC ORDERABLES Final Result * ST STRESS TEST LEXISCAN (06/25/2013 9:28 AM EDT) Only the most recent of2 resultswithin the time period is included. Anatomical Region Laterality Modality Cardiac Stress T esting 06/25/2013 9:17 AM EDT Result [facility] Jovany Rosario MD [facility] STRESS ORDERABLES Catrachita l Result * LDL, CALCULATED (06/25/2013 4:57 AM EDT) Only the most recent of5 resultswithin the time period is included. LDL Calculated 85 <=100 mg/dL [facility] Comment: < 100 Optimal 100 - 129 Near or above optimal 130 - 159 Borderline High 160 - 189 High >= 190 Very High Blood specimen (specimen) 06/25/2013 4:57 AM EDT 06/25/2013 6:16 AM EDT Armando Martin MD CHEMISTRY ORDERABLES Final Re sult [facility] [address] [place] [address] * MRI BRAIN WO CONTRAST (06/24/2013 3:25 PM EDT) Only the most recent of4 resultswithin the time period is included. Anatomical Region Laterality Modality Head Magnetic Resonan ce 06/24/2013 10:1 1 AM EDT Impressions 06/24/2013 3:42 PM EDT IMPRESSION: No acute intracranial findings. Remote lacunar infarct involving the left lentiform nucleus and left eckert radiata, unchanged from brain MRI 01/04/2013. Mild ischemic white matter changes. Otherwise normal brain MRI without contrast. No significant interval change from prior brain MRI of 01/04/2013. Narrative 06/24/2013 3:42 PM EDT Brain MRI without contrast, 06/24/2013 HISTORY: 784.0, headache. Facial droop. Paresthesias. FINDINGS: Comparison is made with prior brain MRI dated 01/04/2013 as well as noncontrast head CT dated 06/23/2013. Brain MRI without contrast was performed within 24 hours of the patient's arrival. There is a mild to moderate amount of patient motion artifact. The ventricular system is within normal limits. A mild amount of patchy increased signal is identified in the cerebral white matter on FLAIR and T2-weighted images, a nonspecific finding, but likely secondary to mild ischemic white matter changes in this patient with history of hypertension and diabetes. A small remote lacunar infarct is identified involving the left eckert radiata and left lentiform nucleus, unchanged. No acute infarct or acute intracranial bleed is seen. No definite intracranial mass lesion is identified on noncontrast brain MRI. No mass effect, midline shift, or extra-axial fluid collection is seen. Normal flow void is identified in the carotid and vertebrobasilar arterial systems. Procedure Note Kyle Mathias MD - 06/24/2013 Brain MRI without contrast, 06/24/2013 HISTORY: 784.0, headache. Facial droop. Paresthesias. FINDINGS: Comparison is made with prior brain MRI dated 01/04/2013 as well asnoncontrast head CT dated 06/23/2013. Brain MRI without contrast was performed within 24 hours of thepatient's arrival. There is a mild to moderate amount of patient motion artifact. Theventricular system is within normal limits. A mild amount of patchy increased signal is identified inthe cerebral white matter on FLAIR and T2-weighted images, a nonspecific finding, but likelysecondary to mild ischemic white matter changes in this patient with history of hypertensionand diabetes. A small remote lacunar infarct is identified involving the left coronaradiata and left lentiform nucleus, unchanged. No acute infarct or acute intracranial bleed is seen.No definite intracranial mass lesion is identified on noncontrast brain MRI. No masseffect, midline shift, or extra-axial fluid collection is seen. Normal flow void is identifiedin the carotid and vertebrobasilar arterial systems. IMPRESSION: No acute intracranial findings. Remote lacunar infarctinvolving the left lentiform nucleus and left eckert radiata, unchanged from brain MRI 01/04/2013. Mildischemic white matter changes. Otherwise normal brain MRI without contrast. Nosignificant interval change from prior brain MRI of 01/04/2013. us Armando Martin MD IMG MRI ORDERABLES Final Resu lt * EC ECHOCARDIOGRAM COMPLETE WITH BUBBLE STUDY (06/24/2013 9:20 AM EDT) Anatomical Region Laterality Modality Electrocardiogra phy 06/24/2013 8:12 AM EDT Impressions 06/24/2013 4:06 PM EDT FINDINGS Left Ventricle Left ventricular cavity size normal. Left ventricular wall thickness mildly increased. Question of distal inferior lateral wall hypokinesis. The basal inferior septum appears hypokinetic. Left ventricular ejection fraction estimated at 55%. Right Ventricle Prominent moderator band in right ventricle (normal variant). Right Atrium Prominent inflow into right atrium. Normal right atrial size. Left Atrium Normal left atrial size. Agitated study performed. No obvious evidence of patent foramen ovale. Mitral Valve Mitral annular calcification. Mild thickening/calcification of the anterior mitral valve leaflet. Mild thickening/calcification of the posterior mitral valve leaflet. Redundant mitral valve leaflets versus prolapse. Trace mitral regurgitation. Aortic Valve Trileaflet aortic valve. Mildly thickened aortic valve without stenosis. Very trivial regurgitation. Tricuspid Valve Trace tricuspid regurgitation. Right ventricular systolic pressure estimated at 22.6 mmHg. Pulmonic Valve Structurally normal pulmonic valve without significant stenosis. There is no pulmonic regurgitation. Pericardium Minimal pericardial effusion. Prominent epicardial fat. Aorta Normal aortic root dimension. CONCLUSIONS Narrative Procedure Note Jovany Rosario MD - 06/24/2013 IMPRESSION FINDINGS Left Ventricle Left ventricular cavity size normal. Left ventricularwall thickness mildly increased. Question of distal inferior lateral wall hypokinesis. The basal inferior septumappears hypokinetic. Left ventricular ejection fraction estimated at 55%. Right Ventricle Prominent moderator band in right ventricle (normalvariant). Right Atrium Prominent inflow into right atrium. Normal rightatrial size. Left Atrium Normal left atrial size. Agitated study performed. Noobvious evidence of patent foramen ovale. Mitral Valve Mitral annular calcification. Mildthickening/calcification of the anterior mitral valve leaflet. Mild thickening/calcification of the posterior mitralvalve leaflet. Redundant mitral valve leaflets versus prolapse. Trace mitral regurgitation. Aortic Valve Trileaflet aortic valve. Mildly thickened aorticvalve without stenosis. Very trivial regurgitation. Tricuspid Valve Trace tricuspid regurgitation. Right ventricularsystolic pressure estimated at 22.6 mmHg. Pulmonic Valve Structurally normal pulmonic valve withoutsignificant stenosis. There is no pulmonic regurgitation. Pericardium Minimal pericardial effusion. Prominent epicardialfat. Aorta Normal aortic root dimension. CONCLUSIONS Abril Bernstein APRN IMG ECHO ORDERABLES Final Resu lt * [facility] CAROTID DUPLEX BILATERAL (06/24/2013 8:13 AM EDT) Only the most recent of2 resultswithin the time period is included. Anatomical Region Laterality Modality Vascular, Head, Neck Vascular Im aging 06/24/2013 7:31 AM EDT Impressions 06/24/2013 10:29 AM EDT FINDINGS Right Carotid: Right vertebral artery flow is antegrade. Velocities in the CCA, ICA, and ECA are WNL. There is no evidence of flow channel narrowing of the RCCA, MIKE or RECA. Left Carotid: Left vertebral artery flow is antegrade. Velocities in the CCA, ICA, and ECA are WNL. There is minimal intimal thickening but no significant atherosclerotic plaque noted in the left internal carotid artery. CONCLUSIONS 1. Vertebral arteries are patent demonstrating antegrade flow, bilaterally. 2. No significant obstructive lesions noted in the right internal carotid artery. 3. No significant obstructive lesions noted in the left internal carotid artery. Narrative Procedure Note Gokul Carvalho MD - 06/24/2013 IMPRESSION FINDINGS Right Carotid: Right vertebral artery flow is antegrade. Velocities in the CCA, ICA, and ECA are WNL. There is no evidence of flow channel narrowing of theRCCA, MIKE or RECA. Left Carotid: Left vertebral artery flow is antegrade. Velocities in the CCA, ICA, and ECA are WNL. There is minimal intimal thickening but no significantatherosclerotic plaque noted in the left internal carotid artery. CONCLUSIONS 1. Vertebral arteries are patent demonstrating antegrade flow,bilaterally. 2. No significant obstructive lesions noted in the right internal carotidartery. 3. No significant obstructive lesions noted in the left internal carotidartery. Abril Bernstein APRN IMG VASCULAR ORDERABLES Final Result * EK EKG 12 LEAD (06/24/2013 6:39 AM EDT) Only the most recent of10 resultswithin the time period is included. Anatomical Region Laterality Modality Other 06/24/2013 6:39 AM EDT Boris Rodriguez MD IMG ECG ORDERABLES Final Result * TSH REFLEX (06/24/2013 5:11 AM EDT) [facility] TSH Reflex 1.650 0.300 - 5.000 mcIU/mL [facility] Blood specimen (specimen) UPPER LIMB STRUCTURE / Unknown 06/24/2013 5:11 AM EDT 06/24/2013 1:51 PM EDT Jovany Rosario MD CHEMISTRY ORDERABLES Final Result [facility] [address] [place] [address] * TROPONIN-I (06/24/2013 1:16 AM EDT) Only the most recent of9 resultswithin the time period is included. [facility] Troponin-I <0.01 <=0.06 ng/mL [facility] Blood specimen (specimen) UPPER LIMB STRUCTURE / Unknown 06/24/2013 1:16 AM EDT 06/24/2013 1:21 AM EDT us Boris Rodriguez MD CHEMISTRY ORDERABLES Final Resul t [facility] [address] [place] [address] * CT HEAD WO CONTRAST (06/23/2013 6:18 PM EDT) Anatomical Region Laterality Modality Head Computed Tomogra phy 06/23/2013 5:17 PM EDT Impressions 06/23/2013 6:34 PM EDT IMPRESSION: 1. No acute intracranial process. 2. Very small chronic left eckert radiata cystic ischemic change. Narrative 06/23/2013 6:[address] without contrast 06/23/2013. COMPARISON: 11/18/2003 and MRI of the brain 01/04/2013. INDICATION: 53-year-old with chest pain for 2 weeks with tingling and numbness in extremities. FINDINGS: Ventricles are normal in size, configuration and position. A small irregular CSF attenuation defect at left eckert radiata has developed since 2003 and corresponds to a small area of cystic ischemic insult on MRI. Brain parenchyma attenuation is otherwise normal. No parenchymal or extra-axial hemorrhage. No localized mass effect or midline shift. Paranasal and mastoid sinuses are clear. Procedure Note Willa Wei MD - 06/23/[address] without contrast 06/23/2013. COMPARISON: 11/18/2003 and MRI of the brain 01/04/2013. INDICATION: 53-year-old with chest pain for 2 weeks with tingling andnumbness in extremities. FINDINGS: Ventricles are normal in size, configuration and position. A smallirregular CSF attenuation defect at left eckert radiata has developed since 2003 and corresponds toa small area of cystic ischemic insult on MRI. Brain parenchyma attenuation is otherwisenormal. No parenchymal or extra-axial hemorrhage. No localized mass effect or midline shift. Paranasal and mastoid sinuses are clear. IMPRESSION: 1. No acute intracranial process. 2. Very small chronic left eckert radiata cystic ischemic change. Boris Rodriguez MD G CT ORDERABLES Final Result * XR CHEST AP PORTABLE (06/23/2013 4:56 PM EDT) Only the most recent of3 resultswithin the time period is included. Anatomical Region Laterality Modality Chest Radiographic Me[place] ging 06/23/2013 4:37 PM EDT Impressions 06/23/2013 5:07 PM EDT Impression: No acute disease identified. Narrative 06/23/2013 5:07 PM EDT XR CHEST AP PORTABLE Jun 23, 2013 04:56:34 PM HISTORY: -CHEST PAIN. Compare: January 01, 2013 Lungs are clear. Cardiac, mediastinal, and hilar contours are unremarkable. Procedure Note Esme Freeman MD - 06/23/2013 XR CHEST AP PORTABLE Jun 23, 2013 04:56:34 PM HISTORY: -CHEST PAIN. Compare: January 01, 2013 Lungs are clear. Cardiac, mediastinal, and hilar contours areunremarkable. Impression: No acute disease identified. Boris Rodriguez MD [facility] ORDERABLE S Final Result * ED TROPONIN (06/23/2013 1:26 PM EDT) Only the most recent of2 resultswithin the time period is included. Pathologist [facility] ED TNI 0.00 <=0.06 ng/mL [facility] Blood specimen (specimen) UPPER LIMB STRUCTURE / Unknown 06/23/2013 1:26 PM EDT 06/23/2013 1:27 PM EDT Boris Rodriguez MD CHEMISTRY ORDERABLES Final Resul t [facility] [address] [place] [address] * POCT RAPID STREP A (02/06/2013 9:21 AM EDT) Pathologist [facility] Strep A Ag None Detected None Detected Pos/Neg SEP OFFICE Comment:negative Lot Number SEP OFFICE Expiration Date SEP OFFICE SeriAl # SEP OFFICE Control Line Yes/No SEP OFFICE Specimen from throat (specimen) 02/06/2013 9:21 AM EDT Boris Sarmiento MD POINT OF CARE TEST ORDERABLE S Final Result Performing Organization Address [facility] Phone Number SEP OFFICE * POCT EKG (01/22/2013 1:37 PM EDT) 01/22/2013 1:37 PM EDT Chris Serra MD POINT OF CARE CARDIOLOGY Final Result Performing Organization Address [facility] de Phone Number SEP OFFICE * POCT MICROALBUMIN (01/10/2013 11:26 AM EDT) Microalb, Ur neg <=20 mg/L SEP OFFICE Lot Number SEP OFFICE Expiration Date SEP OFFICE SeriAl # SEP OFFICE Urine specimen (specimen) 01/10/2013 11:26 AM EDT Boris Sarmiento MD POINT OF CARE TEST ORDERABLE S Final Result Performing Organization Address [facility] Phone Number SEP OFFICE * (ABNORMAL) POCT URINALYSIS DIPSTICK (01/10/2013 11:26 AM EDT) Only the most recent of3 resultswithin the time period is included. Color, UA jose Clear, Yellow, [place], [place] SEP OFFICE Clarity, UA cloudy Clear, Cloudy SEP OFFICE Glucose, UA - g/dl% SEP OFFICE Bilirubin, UA - Pos/Neg SEP OFFICE Ketones, UA - Pos/Neg SEP director of teacher education Grav, UA 1.025 1.001 - 1.035 g/dl SEP OFFICE Blood, UA 50 Pos/Neg SEP OFFICE pH, UA 5.0 5.0 - 8 SEP OFFICE Protein, UA 10 Pos/Neg SEP OFFICE Urobilinogen, UA - 0.2 - 1.0 mg/dL SEP OFFICE Leukocytes, UA - Pos/Neg SEP OFFICE Nitrite, UA - Pos/Neg SEP OFFICE UA Appear POC SEP OFFICE Lot Number SEP OFFICE Expiration Date SEP OFFICE SeriAl # SEP OFFICE Urine specimen (specimen) 01/10/2013 11:26 AM EDT us Boris Sarmiento MD POINT OF CARE TEST ORDERABLE S Final Result SEP OFFICE * MRI ANGIOGRAM INTRACRANIAL WO CONTRAST (01/04/2013 9:28 AM EDT) Anatomical Region Laterality Modality Head Magnetic Resonan ce 01/03/2013 6:48 PM EDT Impressions 01/04/2013 9:48 AM EDT IMPRESSION: 1. No definite stenoses or aneurysms. Narrative 01/04/2013 9:48 AM EDT Intracranial MRA without contrast on 01/04/2013. COMPARISON: MRI brain without contrast 01/04/2013. INDICATION: 52-year-old with left-sided numbness after recent coronary angiogram appear TECHNICAL FACTORS: 3-D noncontrast [id number] MIP reconstructed images obtained without contrast. They were reviewed with axial acquired source images. FINDINGS: Distal left vertebral artery is dominant. Both vertebral arteries, basilar and posterior cerebral arteries are normal. There is irregular flow signal of inferotemporal right internal carotid artery reconstructed images. This is likely flow related artifact given review of other images, including T2 images from the brain. Likewise narrowed lumen diameters at anterior genu of both cavernous internal carotid arteries also appear artifactually narrowed. Middle and anterior cerebral arteries are patent. An anterior communicating artery is not definitely identified although a right ACOM infundibulum may exist. No focal aneurysms. Procedure Note Willa Wei MD - 01/04/2013 Intracranial MRA without contrast on 01/04/2013. COMPARISON: MRI brain without contrast 01/04/2013. INDICATION: 52-year-old with left-sided numbness after recent coronaryangiogram appear TECHNICAL FACTORS: 3-D noncontrast [id number] MIP reconstructed imagesobtained without contrast. They were reviewed with axial acquired source images. FINDINGS: Distal left vertebral artery is dominant. Both vertebral arteries, basilarand posterior cerebral arteries are normal. There is irregular flow signal of inferotemporal right internal carotidartery reconstructed images. This is likely flow related artifact given review of other images,including T2 images from the brain. Likewise narrowed lumen diameters at anterior genu of bothcavernous internal carotid arteries also appear artifactually narrowed. Middle and anterior cerebral arteries are patent. An anteriorcommunicating artery is not definitely identified although a right ACOM infundibulum may exist. Nofocal aneurysms. IMPRESSION: 1. No definite stenoses or aneurysms. us Lonnie Dotson MD IMG MRI ORDERABLES Final Resu lt * MRI ANGIOGRAM EXTRACRANIAL WO CONTRAST (01/04/2013 8:54 AM EDT) Anatomical Region Laterality Modality Head Magnetic Resonan ce 01/03/2013 6:48 PM EDT Impressions 01/04/2013 12:13 PM EDT IMPRESSION: 1. Motion degraded study without any significant carotid stenosis. 2. Unusual configuration of nondominant split mid to inferior right vertebral artery with 2 adjoining small vessels at mid cervical location. No gross stenosis. Narrative 01/04/2013 12:13 PM EDT Extracranial MRA without contrast on 01/04/2013 COMPARISON: MRI of the brain without contrast 01/04/2013. INDICATION: 52-year-old with left-sided numbness after recent coronary angiogram. TECHNICAL FACTORS: 2-D noncontrast [id number] MIP reconstructed images from axial acquired source images. FINDINGS: Study is motion degraded. Majority of bilateral common carotid arteries have irregular contours from motion misregistration. No significant fixed stenosis suggested. Neither right or left proximal common iliac artery is narrowed. No gross significant narrowing of proximal external carotid arteries. Left vertebral artery is dominant. Mid right vertebral artery bifurcates inferiorly. Lumen diameter is about 1.5 mm lumen. The other is diminutive. Procedure Note iWlla Wei MD - 01/04/2013 Extracranial MRA without contrast on 01/04/2013 COMPARISON: MRI of the brain without contrast 01/04/2013. INDICATION: 52-year-old with left-sided numbness after recent coronaryangiogram. TECHNICAL FACTORS: 2-D noncontrast [id number] MIP reconstructed imagesfrom axial acquired source images. FINDINGS: Study is motion degraded. Majority of bilateral common carotid arterieshave irregular contours from motion misregistration. No significant fixed stenosis suggested.Neither right or left proximal common iliac artery is narrowed. No gross significant narrowingof proximal external carotid arteries. Left vertebral artery is dominant. Mid right vertebral artery bifurcatesinferiorly. Lumen diameter is about 1.5 mm lumen. The other is diminutive. IMPRESSION: 1. Motion degraded study without any significant carotid stenosis. 2. Unusual configuration of nondominant split mid to inferior rightvertebral artery with 2 adjoining small vessels at mid cervical location. No gross stenosis. Lonnie Dotson MD IMG MRI ORDERABLES Final Resu lt * POCT ACTIVATED CLOTTING TIME (01/03/2013 9:47 AM EDT) [facility] ACT 239 sec [facility] Lot Number [id number] [facility] Expiration Date [facility] SeriAl # [id number] [facility] Meter 2 [facility] Blood specimen (specimen) 01/03/2013 9:47 AM EDT Chris Serra MD POINT OF CARE TEST ORDERABLES F inal Result Performing Organization Address City/[facility]/ZIP Co de Phone Number [facility] [address] [place] [address] * GUEST SERVICES COORDINATOR PROCEDURE LOG (01/03/2013 9:22 AM EDT) 01/03/2013 9:22 AM EDT Soo Storey APRN [facility] CARDIAC CATH ORDERABLE S Final Result Performing Organization Address [facility] Co de Phone Number [facility] * EC ECHOCARDIOGRAM COMPLETE W DOPPLER AND COLOR FLOW MAPPING (01/02/2013 4:11 PM EDT) [facility] Ejection Fraction 55 % PYRAMIS Anatomical Region Laterality Modality Electrocardiogra phy 01/02/2013 2:29 PM EDT Impressions 01/03/2013 11:29 AM EDT FINDINGS LV EF = 55% Left Ventricle Left ventricular ejection fraction is estimated at 55-60 %. Left ventricular wall thickness mildly increased. Right Ventricle Normal right ventricular size and function. Right Atrium Normal right atrial size. Left Atrium Left atrial dilatation. Mitral Valve Mitral valve thickened. Trace mitral regurgitation. Aortic Valve Diffuse thickening (sclerosis) of the aortic valve cusps without reduced excursion. Tricuspid Valve Structurally normal tricuspid valve. Trace tricuspid regurgitation. Right ventricular systolic pressure estimated at 29 mmHg. Pulmonic Valve Structurally normal pulmonic valve. Pericardium No pericardial effusion. Aorta Normal size aortic root and proximal ascending aorta. CONCLUSIONS Left ventricular ejection fraction is estimated at 55-60 %. Narrative Procedure Note Chris Serra MD - 01/03/2013 IMPRESSION FINDINGS LV EF = 55% Left Ventricle Left ventricular ejection fraction is estimated at55-60 %. Left ventricular wall thickness mildly increased. Right Ventricle Normal right ventricular size and function. Right Atrium Normal right atrial size. Left Atrium Left atrial dilatation. Mitral Valve Mitral valve thickened. Trace mitral regurgitation. Aortic Valve Diffuse thickening (sclerosis) of the aortic valvecusps without reduced excursion. Tricuspid Valve Structurally normal tricuspid valve. Trace tricuspidregurgitation. Right ventricular systolic pressure estimated at 29 mmHg. Pulmonic Valve Structurally normal pulmonic valve. Pericardium No pericardial effusion. Aorta Normal size aortic root and proximal ascending aorta. CONCLUSIONS Left ventricular ejection fraction is estimated at 55-60 %. Soo Storey APRN IM ECHO ORDERABLES Final Result * CT ABDOMEN PELVIS WO CONTRAST (07/15/2012 9:10 PM EDT) Only the most recent of2 resultswithin the time period is included. Anatomical Region Laterality Modality Abdomen, Chest, Pelvis, Hip Comp uted Tomography 07/15/2012 8:05 PM EDT Impressions 07/15/2012 9:22 PM EDT IMPRESSION: Nephrolithiasis. No evidence of obstructive uropathy. Normal exam of the appendix. Narrative 07/15/2012 9:[address] ABDOMEN PELVIS WO CONTRAST Jul 15, 2012 09:10:29 PM Clinical: -ABDOMINAL PAIN Imaging was done without oral or IV contrast. Findings: The lung bases are clear. CT ABDOMEN: No evidence of ureteral stone or hydronephrosis. There are are multiple bilateral 1 to 3 mm nonobstructing intrarenal stones, unchanged from February 2012. The liver is moderately less dense than the spleen come indicating fatty infiltration. The gallbladder surgically absent. Solid viscera are otherwise normal. Small bowel is normal in caliber. CT PELVIS: The appendix is seen and is normal. No evidence of adenopathy or inflammatory change. Multilocular left adnexal mass has decreased in size since November 2010. Procedure Note Mik Freeman MD - 07/15/2012 CT ABDOMEN PELVIS WO CONTRAST Jul 15, 2012 09:10:29 PM Clinical: -ABDOMINAL PAIN Imaging was done without oral or IV contrast. Findings: The lung bases are clear. CT ABDOMEN: No evidence of ureteral stone or hydronephrosis. There are aremultiple bilateral 1 to 3 mm nonobstructing intrarenal stones, unchanged from February 2012. Theliver is moderately less dense than the spleen come indicating fatty infiltration. Thegallbladder surgically absent. Solid viscera are otherwise normal. Small bowel is normal incaliber. CT PELVIS: The appendix is seen and is normal. No evidence of adenopathyor inflammatory change. Multilocular left adnexal mass has decreased in size sinceNovember 2010. IMPRESSION: Nephrolithiasis. No evidence of obstructive uropathy. Normalexam of the appendix. Billie Bueno MD [facility] ORDERABLES Final Res ult * FL MODIFIED BARIUM SWALLOW (04/25/2012 1:18 PM EDT) Anatomical Region Laterality Modality Radio Fluoroscop y 04/25/2012 Impressions 04/25/2012 1:25 PM EDT IMPRESSION: Fluoroscopy was provided for modified barium swallow performed under the direction of speech pathology. A radiologist did not participate in the procedure. There will be no charge from [facility]. Fluoroscopy time 2.09 minutes. Narrative 04/25/2012 1:25 PM EDT MODIFIED BARIUM SWALLOW, 04/25/2012 HISTORY: Dysphasia. Procedure Note Armando Sunshine MD - 04/25/2012 MODIFIED BARIUM SWALLOW, 04/25/2012 HISTORY: Dysphasia. IMPRESSION: Fluoroscopy was provided for modified barium swallow performedunder the direction of speech pathology. A radiologist did not participate in the procedure.There will be no charge from [facility]. Fluoroscopy time 2.09 minutes. Tristan Ron MD IM FLUOROSCOPY ORDERABLES Final Result * US THYROID (04/15/2012 9:40 AM EDT) Only the most recent of2 resultswithin the time period is included. Anatomical Region Laterality Modality Neck Ultrasound 04/15/2012 Impressions 04/15/2012 3:57 PM EDT IMPRESSION: Stable appearance of the thyroid Narrative 04/15/2012 3:57 PM EDT THYROID ULTRASOUND, 04/15/2012: HISTORY: Followup nodule. COMPARISON: August 2011 ultrasound and biopsy of the thyroid. FINDINGS: There is no change in appearance in the well-circumscribed hypoechoic nodule in the right lobe of the thyroid gland. It measures 1.6 x 1.2 x 1.4 cm. 3 mm cyst in the mid left lobe of the thyroid is unchanged. 4 mm cyst in the mid right lobe is unchanged. The thyroid gland is otherwise unremarkable. The right lobe measures 4.7 x 1.4 x 1.9 cm. The left lobe is 4.6 x 1.6 x 1.6 cm. Procedure Note Brunilda Aguirre MD - 04/15/2012 THYROID ULTRASOUND, 04/15/2012: HISTORY: Followup nodule. COMPARISON: August 2011 ultrasound and biopsy of the thyroid. FINDINGS: There is no change in appearance in the well-circumscribed hypoechoicnodule in the right lobe of the thyroid gland. It measures 1.6 x 1.2 x 1.4 cm. 3 mm cyst in the midleft lobe of the thyroid is unchanged. 4 mm cyst in the mid right lobe is unchanged. Thethyroid gland is otherwise unremarkable. The right lobe measures 4.7 x 1.4 x 1.9 cm. Theleft lobe is 4.6 x 1.6 x 1.6 cm. IMPRESSION: Stable appearance of the thyroid Tristan Ron MD [facility] US ORDERABLES Final Result * THYROID PEROXIDASE (TPO) ANTIBODY-ARUP (04/03/2012 10:39 AM EDT) TPO Ab <0.3 0.0 - 9.0 IU/mL [facility] Blood specimen (specimen) UPPER LIMB STRUCTURE / Unknown 04/03/2012 10:39 AM EDT 04/03/2012 2:23 PM EDT us Rojas Cunningham MD IMMUNOLOGY ORDERABLES Final Res ult Performing Organization Address [facility] Co de Phone Number [facility] [address] [place] [address] * GLUTAMIC ACID DECARBOXYLASE AB-ARUP (04/03/2012 10:39 AM EDT) STPEHEN Ab <5.0 0.0 - 5.0 IU/mL [facility] Comment: INTERPRETIVE INFORMATION: Glutamic Acid Decarboxylase Antibody A value greater than 5.0 IU/mL is considered positive for Glutamic Acid Decarboxylase Antibody. Blood specimen (specimen) UPPER LIMB STRUCTURE / Unknown 04/03/2012 10:39 AM EDT 04/03/2012 4:39 PM EDT Rojas Cunningham MD CHEMISTRY ORDERABLES Final Resu lt Performing Organization Address [facility] de Phone Number [facility] [address] [place] [address] * MICROALBUMIN, URINE-ARUP (04/02/2012 11:05 AM EDT) Total Volume Random mL [facility] Hrs Jessica Random hr [facility] U Creatinine 96 mg/dL [facility] U24 Creat Not Applicable 700 - 1600 mg/day [facility] Microalbumin mg/dL-ARUP 0.3 mg/dL [facility] Microalbumin/Cre atinine Ratio-ARUP 3 0 - 30 mg/gm [facility] Microalbumin ug/minute-ARUP Not Applicable 0 - 20 mcg/min [facility] Microalbumin mg/day-ARUP Not Applicable 2 - 30 mg/day [facility] Urine specimen (specimen) 04/02/2012 11:05 AM EDT 04/02/2012 2:48 PM EDT Ara Howell APRN URINE ORDERABLES Final R esult Performing Organization Address [facility] Co de Phone Number [facility] [address] [place] [address] * CT ABDOMEN PELVIS WO ORAL OR IV CONTRAST (02/19/2012 4:05 PM EDT) Only the most recent of2 resultswithin the time period is included. Anatomical Region Laterality Modality Abdomen, Pelvis Computed Tomogra phy 02/19/2012 3:36 PM EDT Impressions 02/19/2012 4:08 PM EDT IMPRESSION: Bilateral nephrolithiasis. No obstructive uropathy. Normal appendix. Complex left adnexal mass most ovarian . This has been roughly stable since 05/11/2011. Narrative 02/19/2012 4:[address] scan of the abdomen pelvis without contrast. date 02/19/2012 time 1543 HISTORY: Back pain with history of kidney stones. Technical factors: Spiral scanning was performed through the abdomen pelvis without intravenous or oral contrast. Coronal and sagittal reconstructions were performed. Compare with prior study 11/10/2011. FINDINGS: There is diffuse fatty infiltration of the liver. There has been prior cholecystectomy. There are tiny calcifications scattered throughout the left kidney. There is no hydronephrosis on the left. There are tiny calcifications scattered throughout the lower pole of the right kidney. There is no obvious right hydronephrosis. The right and left ureters are nondilated. There are bilateral pelvic calcifications consistent phleboliths. The uterus is surgically absent. A complex left adnexal mass consistent complex left ovarian cystic mass unchanged from prior exam changed 05/11/2011. The appendix is normal. Is no large or small bowel distention. Procedure Note Niranjan Benavidez III, MD - 02/19/2012 CT scan of the abdomen pelvis without contrast. date 02/19/2012 time 1543 HISTORY: Back pain with history of kidney stones. Technical factors: Spiral scanning was performed through the abdomenpelvis without intravenous or oral contrast. Coronal and sagittal reconstructions were performed. Compare with prior study 11/10/2011. FINDINGS: There is diffuse fatty infiltration of the liver. There has beenprior cholecystectomy. There are tiny calcifications scattered throughout the left kidney. Thereis no hydronephrosis on the left. There are tiny calcifications scattered throughout the lowerpole of the right kidney. There is no obvious right hydronephrosis. The right and leftureters are nondilated. There are bilateral pelvic calcifications consistent phleboliths. Theuterus is surgically absent. A complex left adnexal mass consistent complex left ovarian cysticmass unchanged from prior exam changed 05/11/2011. The appendix is normal. Is no large or small bowel distention. IMPRESSION: Bilateral nephrolithiasis. No obstructive uropathy. Normalappendix. Complex left adnexal mass most ovarian . This has been roughly stable since 05/11/2011. us Kyle Cortez MD IMG CT ORDERABLES Final R esult * (ABNORMAL) BETA-HYDROXYBUTYRIC ACID (02/19/2012 4:05 PM EDT) Beta-Hydroxybu tyric Acid 0.31(H) 0.00 - 0.30 mmol/L [facility] Blood specimen (specimen) 02/19/2012 4:05 PM EDT 02/19/2012 4:10 PM EDT Kyle Cortez MD CHEMISTRY ORDERABLES Catrachita l Result Performing Organization Address [facility] Co de Phone Number [facility] [address] [place] [address] * LIPASE LEVEL (02/19/2012 4:05 PM EDT) Only the most recent of5 resultswithin the time period is included. Lipase Lvl 49 36 - 250 IU/L [facility] Blood specimen (specimen) UPPER LIMB STRUCTURE / Unknown 02/19/2012 4:05 PM EDT 02/19/2012 4:10 PM EDT Kyle Cortez MD CHEMISTRY ORDERABLES Catrachita l Result Performing Organization Address [facility] Co de Phone Number [facility] [address] [place] [address] * (ABNORMAL) AMYLASE LEVEL (02/19/2012 4:05 PM EDT) Only the most recent of3 resultswithin the time period is included. Amylase Lvl <30(L) 30 - 97 IU/L [facility] Blood specimen (specimen) UPPER LIMB STRUCTURE / Unknown 02/19/2012 4:05 PM EDT 02/19/2012 4:10 PM EDT Kyle Cortez MD CHEMISTRY ORDERABLES Catrachita l Result Performing Organization Address [facility] Co de Phone Number [facility] [address] [place] [address] * (ABNORMAL) URINALYSIS (02/19/2012 4:03 PM EDT) Only the most recent of2 resultswithin the time period is included. UA Color Yellow [facility] UA Appear Clear [facility] UA Glucose 150 mg%(A) Negative [facility] UA Bili Negative Negative [facility] UA Ketones Negative Negative mg/dL [facility] UA Blood Negative Negative [facility] UA pH 7.5 4.8 - 8.0 [facility] UA Protein Trace(A) Negative [facility] UA Urobilinogen Normal [facility] UA Nitrite Negative Negative [facility] UA Leuk Est Negative Negative [facility] UA Spec Grav 1.018 1.001 - 1.035 [facility] UA WBC 2 0 - 4 /HPF [facility] UA RBC 1 0 - 3 /HPF [facility] UA Squam Epi 1+ [facility] UA Mucus Trace [facility] Urine specimen (specimen) STRUCTURE OF URINARY TRACT PROPER / Unknown 02/19/2012 4:03 PM EDT 02/19/2012 4:03 PM EDT Kyle Cortez MD URINE ORDERABLES Edited Performing Organization Address [facility] Co de Phone Number [facility] [address] [place] [address] * URINE CULTURE (02/19/2012 4:03 PM EDT) Pathologist [facility] Final Three or more bacterial species isolated from urine indicating superficial or fecal contamination Recollect if clinically indicated [facility] Urine specimen obtained by clean catch procedure (specimen) STRUCTURE OF URINARY TRACT PROPER / Unknown 02/19/2012 4:03 PM EDT 02/19/2012 4:16 PM EDT Kyle Cortez MD MICROBIOLOGY - GENERAL OR DERABLES Final Result Performing Organization Address [facility] Co de Phone Number [facility] [address] [place] [address] * XR CHEST PA AND LATERAL (02/01/2012 1:25 PM EDT) Only the most recent of2 resultswithin the time period is included. Anatomical Region Laterality Modality Chest Radiographic Mecca ging 02/01/2012 Impressions 02/01/2012 1:57 PM EDT Impression: Normal chest. Narrative 02/01/2012 1:57 PM EDT PA and Lateral Chest: Feb 01, 2012 01:25:23 PM History: [id number] Findings: The heart and lungs are within normal limits. Procedure Note Esme Baron Alejandro - 02/01/2012 PA and Lateral Chest: Feb 01, 2012 01:25:23 PM History: [id number] Findings: The heart and lungs are within normal limits. Impression: Normal chest. us Arely Karimi MD IMG DIAGNOSTIC IMAGING ORDERA BLES Final Result * (ABNORMAL) VITAMIN D, [id number] (01/04/2012 11:29 AM EDT) Vit D 25 OH 19(L) 30 - 80 ng/mL [facility] Comment: INTERPRETIVE INFORMATION: Vitamin D, 25-Hydroxy This assay accurately quantifies the sum of vitamin D3, 25-hydroxy and vitamin D2, 25-hydroxy. 0-17 years: Deficiency: less than 20 ng/mL Optimum level: greater than or equal to 20 ng/mL* *(Tian CL et al. Pediatrics 2008; 122: 1142-52.) 18 years and older: Deficiency: Less than 20 ng/mL Insufficiency: 20-29 ng/mL Optimum Level: 30-80 ng/mL Possible Toxicity: Greater than 150 ng/mL Blood specimen (specimen) UPPER LIMB STRUCTURE / Unknown 01/04/2012 11:29 AM EDT 01/04/2012 2:09 PM EDT us Harper Mcgrath MD CHEMISTRY ORDERABLES Fin al Result [facility] [address] [place] [address] * ST STRESS TEST EXERCISE (11/22/2011 11:32 AM EST) Anatomical Region Laterality Modality Cardiac Stress T esting 11/22/2011 11:1 1 AM EST Georgette Isbell IMG STRESS ORDERABLES Final R esult * CT ABDOMEN PELVIS W CONTRAST (11/10/2011 1:14 AM EST) Anatomical Region Laterality Modality Abdomen, Chest, Pelvis, Hip Comp uted Tomography 11/09/2011 10:5 0 PM EST Impressions 11/10/2011 1:32 AM EST IMPRESSION: No acute findings. Normal appendix. Nonobstructing bilateral small renal stones. Narrative 11/10/2011 1:[address] abdomen and pelvis with contrast 11/10/2011 HISTORY: Abdominal pain, suspected appendicitis COMPARISON: May 11, 2011 75 mL Isovue-370. Creatinine 0.7. Oral contrast. CT abdomen: Lung bases show no mass or pneumonia No free air No osseous destruction Diffusely decreased attenuation of the liver consistent with fatty infiltration. Surgical clips from prior cholecystectomy Splenic calcification consistent with old granulomatous diseases Small nonobstructing renal calculi noted, more on the left than on the right and all measuring less than 5 mm in size Other solid viscera normal CT pelvis: Normal appendix Moderate amount of stool in the colon No lymphadenopathy or bowel obstruction [id number] clonic diverticulosis. No evidence of diverticulitis. Procedure Note Mary Claros W - 11/10/2011 CT abdomen and pelvis with contrast 11/10/2011 HISTORY: Abdominal pain, suspected appendicitis COMPARISON: May 11, 2011 75 mL Isovue-370. Creatinine 0.7. Oral contrast. CT abdomen: Lung bases show no mass or pneumonia No free air No osseous destruction Diffusely decreased attenuation of the liver consistent with fattyinfiltration. Surgical clips from prior cholecystectomy Splenic calcification consistent with old granulomatous diseases Small nonobstructing renal calculi noted, more on the left than on theright and all measuring less than 5 mm in size Other solid viscera normal CT pelvis: Normal appendix Moderate amount of stool in the colon No lymphadenopathy or bowel obstruction Wnmu-iz-cvrjcxap clonic diverticulosis. No evidence of diverticulitis. IMPRESSION: No acute findings. Normal appendix. Nonobstructing bilateralsmall renal stones. Cal Pate MD IMG CT ORDERABLES Final Result * NON-HAT SPRAYER CYTOLOGY REPORT (08/25/2011 2:39 PM EST) Non-Entry Level Programmer Cytology Report PATIENT NAME:ANGELES POPE Non-Entry Level Programmer Cytology Report Accession Number Collected Date/Time Received Date/Time [id number] 08/25/11 14:39 EST 08/25/11 14:40 EST Specimen Source Fine Needle Aspiration - Right Thyroid Diagnosis Other Diagnostic Category, see comment section. Comment Specimen Adequacy: Satisfactory Cellular specimen composed of uniform, cytologically bland-appearing follicular epithelial cells with a predominantly macrofollicular arrangement. Colloid is present. COMMENT: The cytologic findings are consistent with a benign thyroid nodule. Clinical and radiographic correlation is recommended. Cake Wrapper: MR YUNG 08/28/2011 Completed by: BRENT OROZCO MD (Electronically signed by) 08/28/2011 [facility] Laboratory Gross Description 4 direct smears made. Evaluation Episode #1: Adequate Evaluation Episode #2: Adequate Immediate Assessment for Adequacy: Adequate for cytologic diagnosis./ QL [facility] 08/25/2011 2:39 PM EST Jeremy Ravi MD CYTOLOGY ORDERABLES Final Result Performing Organization Address City/State/[facility] Co de Phone Number [facility] [address] [place] [address] * US GUIDED THYROID BIOPSY (08/25/2011 2:03 PM EST) Anatomical Region Laterality Modality Neck Ultrasound 08/25/2011 Impressions 08/26/2011 8:04 AM EST IMPRESSION: Successful ultrasound guided core needle biopsy thyroid nodule. Narrative 08/26/2011 8:04 AM EST ULTRASOUND-GUIDED THYROID CORE NEEDLE BIOPSY, 25 AUGUST 2011 AT 1318 HOURS. CLINICAL HISTORY: Right thyroid nodule. HISTORY: Thyroid nodule in needle of biopsy. After informed consent was obtained, the patient was placed supine on the ultrasound table. The patient's neck was prepped and draped in a sterile fashion. One percent Lidocaine was instilled for local anesthesia. Utilizing ultrasound guidance 2 passes were obtained through the right thyroid nodule. The cytology tech in attendance stated there was adequate tissue. The patient tolerated the procedure well and was discharged home in good condition. Procedure Note Jeremy Ravi MD - 08/26/2011 ULTRASOUND-GUIDED THYROID CORE NEEDLE BIOPSY, 25 AUGUST 2011 AT 1318HOURS. CLINICAL HISTORY: Right thyroid nodule. HISTORY: Thyroid nodule in needle of biopsy. After informed consent was obtained, the patient was placed supine on theultrasound table. The patient's neck was prepped and draped in a sterile fashion. One percentLidocaine was instilled for local anesthesia. Utilizing ultrasound guidance 2 passeswere obtained through the right thyroid nodule. The cytology tech in attendance stated there was adequate tissue. Thepatient tolerated the procedure well and was discharged home in good condition. IMPRESSION: Successful ultrasound guided core needle biopsy thyroidnodule. us Tristan Ron MD IMG US ORDERABLES Final Result * SCANNED OR REPORT (07/06/2011 12:00 AM EDT) Narrative 07/06/2011 9:26 PM EDT Ordered by an unspecified provider. Transcriptions Unknown, Unknown - 07/06/2011 9:26 PM EDT us Unknown Unknown PROCEDURE/MINOR SURGICAL ORDERAB LES Final Result * FOLLICLE STIMULATING HORMONE LEVEL (06/14/2011 11:12 AM EDT) FSH 33.9 mIU/mL [facility] Comment: Suggested Reference Range (mIU/mL) Postmenopausal Female 22 - 130 Follicular Phase Female 2 - 12 Luteal Phase Female 1 - 10 Blood specimen (specimen) UPPER LIMB STRUCTURE / Unknown 06/14/2011 11:12 AM EDT 06/14/2011 12:40 PM EDT us Harper Mcgrath MD CHEMISTRY ORDERABLES Fin al Result [facility] [address] [place] [address] * XR ABDOMEN AP (05/11/2011 2:21 PM EDT) Only the most recent of2 resultswithin the time period is included. Anatomical Region Laterality Modality Abdomen Radiographic Mecca ging 05/11/2011 Impressions 05/11/2011 4:23 PM EDT IMPRESSION: Normal KUB. Narrative 05/11/2011 4:23 PM EDT XR ABDOMEN AP May 11, 2011 at 1411 Clinical: 51-year-old female. Right flank pain, hematuria Supine film of the abdomen reveals no evidence of bowel obstruction or unusual calcification. Surgical clips gallbladder fossa. Calcified phleboliths pelvis unchanged from exam of November 11, 2010. Procedure Note Boris Mims Sherita - 05/11/2011 XR ABDOMEN AP May 11, 2011 at 1411 Clinical: 51-year-old female. Right flank pain, hematuria Supine film of the abdomen reveals no evidence of bowel obstruction orunusual calcification. Surgical clips gallbladder fossa. Calcified phleboliths pelvis unchangedfrom exam of November 11, 2010. IMPRESSION: Normal KUB. us Wiley Garza MD IMG DIAGNOSTIC IMAGING ORDER REJI Final Result * SCANNED PRE/POST PROCEDURES (12/29/2010 12:00 AM EDT) Narrative 12/29/2010 1:28 PM EDT Ordered by an unspecified provider. Transcriptions Unknown, Unknown - 12/29/2010 1:27 PM EDT us Unknown Unknown PROCEDURE/MINOR SURGICAL ORDERAB LES Final Result * SCANNED ANESTHESIA FORMS (12/29/2010 12:00 AM EDT) Narrative 12/29/2010 1:27 PM EDT Ordered by an unspecified provider. Transcriptions Unknown, Unknown - 12/29/2010 1:26 PM EDT us Unknown Unknown PROCEDURE/MINOR SURGICAL ORDERAB LES Final Result * SCANNED OR REPORT (12/29/2010 12:00 AM EDT) Narrative 12/29/2010 5:19 PM EDT Ordered by an unspecified provider. Transcriptions Unknown, Unknown - 12/29/2010 5:19 PM EDT us Unknown Unknown PROCEDURE/MINOR SURGICAL ORDERAB LES Final Result * US ABDOMEN LIMITED (11/29/2010 10:26 AM EST) Anatomical Region Laterality Modality Abdomen Ultrasound 11/29/2010 Impressions 11/29/2010 10:39 AM EST IMPRESSION: Findings consistent with fatty infiltration of liver. Otherwise normal examination, S/P cholecystectomy. Narrative 11/29/2010 10:39 AM EST RIGHT UPPER QUADRANT ULTRASOUND, 11/29/2010 HISTORY: Right quadrant pain. FINDINGS: The gallbladder is surgically absent. Liver is of increased echotexture. No masses or ductal dilatation. Common duct normal in caliber at 6 mm. Visualized portions of the right kidney and pancreas are normal. Procedure Note Armando Sunshine - 11/29/2010 RIGHT UPPER QUADRANT ULTRASOUND, 11/29/2010 HISTORY: Right quadrant pain. FINDINGS: The gallbladder is surgically absent. Liver is of increased echotexture. No masses or ductal dilatation. Commonduct normal in caliber at 6 mm. Visualized portions of the right kidney and pancreas are normal. IMPRESSION: Findings consistent with fatty infiltration of liver.Otherwise normal examination, S/P cholecystectomy. us Mendel Resendiz DO IMG US ORDERABLES Final R esult * CT ANGIOGRAM CHEST W CONTRAST (07/18/2010 4:43 PM EDT) Anatomical Region Laterality Modality Chest Computed Tomogra phy 07/18/2010 4:09 PM EDT Impressions 07/18/2010 10:33 PM EDT IMPRESSION: 1. Normal CT of the chest. Narrative 07/18/2010 10:[address] ANGIOGRAM CHEST: 07/18/2010 Evaluate for pulmonary emboli. HISTORY: Patient has had left chest pain. Patient given 75 mL Isovue-370. Multiplanar reconstruction performed including MIP imaging. FINDINGS: There is normal enhancement of the pulmonary arteries. There is no evidence of aortic dissection or aneurysm. The lungs are clear. There is no pleural fluid. There is no mediastinal lymphadenopathy. Limited views of the upper abdomen are unremarkable. Procedure Note Brunilda Aguirre MD - 07/18/2010 CT ANGIOGRAM CHEST: 07/18/2010 Evaluate for pulmonary emboli. HISTORY: Patient has had left chest pain. Patient given 75 mL Isovue-370. Multiplanar reconstruction performedincluding MIP imaging. FINDINGS: There is normal enhancement of the pulmonary arteries. There is noevidence of aortic dissection or aneurysm. The lungs are clear. There is no pleural fluid.There is no mediastinal lymphadenopathy. Limited views of the upper abdomen are unremarkable. IMPRESSION: 1. Normal CT of the chest. us Mahesh Page MD IMG CT ORDERABLES Final Resul t * D-DIMER (07/18/2010 3:00 PM EDT) D-Dimer <0.22 <=0.45 mcg/ml FEU [facility] Comment: The D-dimer test is used frequently to exclude an acute PE or DVT. In patients with a low to moderate clinical risk assessment and a D-dimer result < 0.46 ug/mL FEU, the likelihood of a PE or DVT is very low. However, a thromboembolic event should not be excluded solely on the basis of the D-Dimer level. Increased levels of D-Dimer are associated with a PE, DVT, DIC, malignancies, inflammation, sepsis, surgery, trauma, , and advancing patient age. [IRIS 2006 11:295(2): 199-207]. Blood specimen (specimen) UPPER LIMB STRUCTURE / Unknown 07/18/2010 3:00 PM EDT 07/18/2010 4:17 PM EDT us Mahesh Page MD HEMATOLOGY ORDERABLES Final R esult [facility] [address] [place] [address] * SCANNED OR REPORT (04/28/2010 12:00 AM EDT) Narrative 04/28/2010 11:13 AM EDT Ordered by an unspecified provider. Transcriptions Unknown, U - 04/28/2010 10:37 AM EDT us U Unknown PROCEDURE/MINOR SURGICAL ORDERAB LES Final Result * SCANNED OR REPORT (04/28/2010 12:00 AM EDT) Narrative 04/28/2010 11:06 AM EDT Ordered by an unspecified provider. Transcriptions Unknown, U - 04/28/2010 10:34 AM EDT us U Unknown PROCEDURE/MINOR SURGICAL ORDERAB LES Final Result * SCANNED ENDOSCOPY REPORT (01/10/2010 12:00 AM EDT) Narrative 01/10/2010 10:31 PM EDT Ordered by an unspecified provider. Transcriptions Unknown, Unknown - 01/10/2010 6:29 PM EDT us Unknown Unknown PROCEDURE/MINOR SURGICAL ORDERAB LES Final Result * XR HAND MIN 3 VIEWS RT (11/05/2009 12:00 AM EST) Only the most recent of2 resultswithin the time period is included. Anatomical Region Laterality Modality Other 11/05/2009 11/05/2009 Narrative 11/05/2009 12:00 AM EST Name: BETZAIDA CHAN : 1960 VERIFIED [facility] Reason: 592.0/KUB Dict.Staff: ANGELA FARRIS [id number] Verified By: WILLA WEI Moncho: 11/05/09 11:32 pm Exams: [id number] VIEW KUB, 11/05/2009: COMPARISON: 09/08/2009. HISTORY: Right flank pain, history of renal stones. IMPRESSION: Small bilateral intrarenal stones are stable. Previously seen right proximal ureteral stone is not seen on the current study. The intrarenal stones measure less than 5mm in size each. ANGELA FARRIS MD:joann DICTATED 11/05/2009 @ 15:30 end of result Procedure Note Unknown, U - 01/21/2010 Name: BETZAIDA CHAN : 1960 VERIFIED [facility] Reason: 592.0/KUB Dict.Staff: ANGELA FARRIS [id number] Verified By: WILLA WEI Fred Moncho: 11/05/09 11:32 pm Exams: [id number] VIEW KUB, 11/05/2009: COMPARISON: 09/08/2009. HISTORY: Right flank pain, history of renal stones. IMPRESSION: Small bilateral intrarenal stones are stable. Previously seen right proximal ureteral stone is not seen on the current study. The intrarenal stones measure less than 5mm in size each. ANGELA FARRIS MD:joann DICTATED 11/05/2009 @ 15:30 end of result U Unknown IMG SEH LW RAD HISTORICAL Final Result * EK EKG REG (10/05/2009 12:01 AM EST) Anatomical Region Laterality Modality Other 10/05/2009 12:0 1 AM EST Narrative 10/06/2009 4:45 AM EST Sinus rhythm Anterior T wave changes are nonspecific, more pronounced than previous t racing Borderline ECG [employer]- JEFFREY MOSQUERA M.D. Released Date Time- 10/06/09 0445 Procedure Note Jeffrey Mosquera - 12/17/2009 Sinus rhythm Anterior T wave changes are nonspecific, more pronounced than previous t racing Borderline ECG [employer]- JEFFREY MOSQUERA M.D. Released Date Time- 10/06/09 0445 Wiley Garza MD [facility] STAR CARD HISTORICAL Final Result * CT ABDOMEN W/O CONTRAST (09/08/2009 12:00 AM EST) Only the most recent of2 resultswithin the time period is included. Anatomical Region Laterality Modality Other 09/08/2009 09/08/2009 Narrative 09/08/2009 12:00 AM EST Name: BETZAIDA CHAN : 1960 VERIFIED [facility] Reason: ac9 stone protocol Dict.Staff: ESME FREEMAN [id number] Verified By: MIK FREEMAN Moncho: 09/09/09 11:04 am Exams: CT-ABDOMEN W/O CONT CT ABDOMEN AND PELVIS, RENAL STONE PROTOCOL: 09-08-09 History: Right flank pain. Scans done from top of kidneys through symphysis pubis at 5mm intervals without contrast. Compare: None. CT ABDOMEN: There is mildly nonuniform fatty infiltration of the liver. No focal liver lesions. Spleen, pancreas, and adrenals appear normal. Prior cholecystectomy noted. There are multiple intrarenal calculi noted bilaterally. There is mild right sided hydronephrosis secondary to a 5mm stone in the proximal right ureter at the UPJ. The right ureter below this point is normal in caliber. Tiny umbilical hernia containing only fat. No upper abdominal mass or adenopathy. CT PELVIS: No mid or distal ureteral dilatation or stone. Normal appearing appendix. Patient has had a prior hysterectomy. No pelvic mass or adenopathy. IMPRESSION: 5mm stone located at or just below the right UPJ, resulting in right hydronephrosis. Multiple bilateral intrarenal calculi. Additional incidental findings, as discussed above. SUBHA:sadia Dictated 09-08-09 @ 15:35 Report called by me to Dr. Bello in the ER at 3:33 p.m. on 07-09-09. end of result Procedure Note Unknown, U - 01/21/2010 Name: BETZAIDA CHAN : 1960 VERIFIED [facility] Reason: ac9 stone protocol Dict.Staff: ESME FREEMAN [id number] Verified By: MIK FREEMAN Moncho: 09/09/09 11:04 am Exams: CT-ABDOMEN W/O CONT CT ABDOMEN AND PELVIS, RENAL STONE PROTOCOL: 09-08-09 History: Right flank pain. Scans done from top of kidneys through symphysis pubis at 5mm intervals without contrast. Compare: None. CT ABDOMEN: There is mildly nonuniform fatty infiltration of the liver. No focal liver lesions. Spleen, pancreas, and adrenals appear normal. Prior cholecystectomy noted. There are multiple intrarenal calculi noted bilaterally. There is mild right sided hydronephrosis secondary to a 5mm stone in the proximal right ureter at the UPJ. The right ureter below this point is normal in caliber. Tiny umbilical hernia containing only fat. No upper abdominal mass or adenopathy. CT PELVIS: No mid or distal ureteral dilatation or stone. Normal appearing appendix. Patient has had a prior hysterectomy. No pelvic mass or adenopathy. IMPRESSION: 5mm stone located at or just below the right UPJ, resulting in right hydronephrosis. Multiple bilateral intrarenal calculi. Additional incidental findings, as discussed above. SUBHA:ps Dictated 09-08-09 @ 15:35 Report called by me to Dr. Bello in the ER at 3:33 p.m. on 07-09-09. end of result us U Unknown IMG SE LW RAD HISTORICAL Final Result * DIAG ABDOMEN KUB/UP &/OR DECUB & CHEST (08/01/2009 12:00 AM EDT) Anatomical Region Laterality Modality Other 08/01/2009 08/01/2009 Narrative 08/01/2009 12:00 AM EDT Name: BETZAIDA CHAN : 1960 VERIFIED [facility] Reason: abd pain Dict.Staff: MARY RAMOS [id number] Verified By: ARMANDO SUNSHINE Moncho: 08/02/09 1:43 pm Exams: DIAG-ABD KUB UP/DECUB & PA CXR CHEST, TWO VIEWS, ABDOMEN, FIVE VIEWS: 08/01/09 CLINICAL INDICATIONS: ABDOMINAL PAIN Two view chest is within normal limits. The lungs are clear. There is no free air under the hemidiaphragm. Bowel gas pattern shows stool throughout the colon. There are no differential air fluid levels or free intraperitoneal air identified. Scattered surgical clips are noted. Splenic calcifications are present. There are calcifications over the lower pole of the right kidney, presumably renal. Phleboliths are noted in the pelvis. IMPRESSION: NO ACUTE ABDOMEN BOWEL GAS PATTERN ABNORMALITY. PROBABLE RIGHT KIDNEY STONE. NEGATIVE CHEST. RICHARD/janelle DICTATED ON AUGUST 01, 2009 @ 15:41 HOURS. end of result Procedure Note Unknown, U - 01/21/2010 Name: BETZAIDA CHAN : 1960 VERIFIED [facility] Reason: abd pain Dict.Staff: MARY RAMOS [id number] Verified By: ARMANDO SUNSHINE Moncho: 08/02/09 1:43 pm Exams: DIAG-ABD KUB UP/DECUB & PA CXR CHEST, TWO VIEWS, ABDOMEN, FIVE VIEWS: 08/01/09 CLINICAL INDICATIONS: ABDOMINAL PAIN Two view chest is within normal limits. The lungs are clear. There is no free air under the hemidiaphragm. Bowel gas pattern shows stool throughout the colon. There are no differential air fluid levels or free intraperitoneal air identified. Scattered surgical clips are noted. Splenic calcifications are present. There are calcifications over the lower pole of the right kidney, presumably renal. Phleboliths are noted in the pelvis. IMPRESSION: NO ACUTE ABDOMEN BOWEL GAS PATTERN ABNORMALITY. PROBABLE RIGHT KIDNEY STONE. NEGATIVE CHEST. RICHARD/janelle DICTATED ON AUGUST 01, 2009 @ 15:41 HOURS. end of result us U Unknown IMG SE LW RAD HISTORICAL Final Result Visit Diagnoses Diagnosis Start Date Chest pain Chest pain, unspecified 07/18/2010 Hyperglycemia Other abnormal glucose 07/18/2010 Dyspnea Other dyspnea and respiratory abnormality 07/18/2010 Pain Generalized pain 11/11/2010 Pyelonephritis Pyelonephritis, unspecified 11/25/2010 Elevated liver function tests Other abnormal blood chemistry 11/25/2010 Abdominal pain, right upper quadrant 11/25/2010 Right flank pain Abdominal pain, unspecified site 11/25/2010 Pyelonephritis, unspecified 11/29/2010 Abdominal pain, unspecified site 11/29/2010 Abdominal pain, right upper quadrant 11/29/2010 Other abnormal blood chemistry 11/29/2010 Stone Urinary calculus, unspecified 05/11/2011 Back pain Backache, unspecified 05/11/2011 History of kidney stones Personal history of urinary calculi 05/11/2011 Flank pain Abdominal pain, unspecified site 05/11/2011 Carpal tunnel syndrome 05/25/2011 Disturbance of skin sensation 05/25/2011 Blurred vision Other specified visual disturbances 05/25/2011 Urinary incontinence Unspecified urinary incontinence 05/25/2011 Hot flashes Symptomatic menopausal or female climacteric states 05/31/2011 Hyperlipidemia Other and unspecified hyperlipidemia 05/31/2011 Diabetes mellitus type 2, uncontrolled Type II or unspecified type diabetes mellitus without mention of complication, uncontrolled 05/31/2011 Hypertension Unspecified essential hypertension 05/31/2011 Obesity Obesity, unspecified 05/31/2011 Hyperlipidemia Other and unspecified hyperlipidemia 06/14/2011 Hypertension Unspecified essential hypertension 06/14/2011 Hot flashes Symptomatic menopausal or female climacteric states 06/14/2011 Diabetes mellitus type 2, uncontrolled Type II or unspecified type diabetes mellitus without mention of complication, uncontrolled 06/14/2011 Diabetes mellitus type 2, uncontrolled Type II or unspecified type diabetes mellitus without mention of complication, uncontrolled 06/27/2011 Diabetes mellitus type 2, uncontrolled Type II or unspecified type diabetes mellitus without mention of complication, uncontrolled 07/11/2011 Diabetes mellitus type 2, uncontrolled Type II or unspecified type diabetes mellitus without mention of complication, uncontrolled 07/18/2011 Diabetes mellitus type 2, uncontrolled Type II or unspecified type diabetes mellitus without mention of complication, uncontrolled 07/25/2011 Thyroid mass Unspecified disorder of thyroid 08/16/2011 Diabetes mellitus type 2, uncontrolled Type II or unspecified type diabetes mellitus without mention of complication, uncontrolled 08/18/2011 Hyperlipidemia Other and unspecified hyperlipidemia 08/18/2011 Hypertension Unspecified essential hypertension 08/18/2011 Obesity Obesity, unspecified 08/18/2011 Hot flashes Symptomatic menopausal or female climacteric states 08/18/2011 Thyroid mass Unspecified disorder of thyroid 08/25/2011 Abdominal pain Abdominal pain, unspecified site 11/09/2011 Chest pain, unspecified 11/22/2011 Diabetes mellitus type 2, uncontrolled Type II or unspecified type diabetes mellitus without mention of complication, uncontrolled 12/28/2011 Hyperlipidemia Other and unspecified hyperlipidemia 12/28/2011 Hypertension Unspecified essential hypertension 12/28/2011 Obesity Obesity, unspecified 12/28/2011 Thyroid nodule Nontoxic uninodular goiter 12/28/2011 Diabetes mellitus type 2, uncontrolled Type II or unspecified type diabetes mellitus without mention of complication, uncontrolled 01/04/2012 Hyperlipidemia Other and unspecified hyperlipidemia 01/04/2012 Hypertension Unspecified essential hypertension 01/04/2012 Obesity Obesity, unspecified 01/04/2012 Hot flashes Symptomatic menopausal or female climacteric states 01/04/2012 Diabetes mellitus type 2, uncontrolled Type II or unspecified type diabetes mellitus without mention of complication, uncontrolled 01/11/2012 Hyperlipidemia Other and unspecified hyperlipidemia 01/11/2012 Hypertension Unspecified essential hypertension 01/11/2012 Obesity Obesity, unspecified 01/11/2012 Thyroid nodule Nontoxic uninodular goiter 01/11/2012 Diabetes mellitus type 2, uncontrolled Type II or unspecified type diabetes mellitus without mention of complication, uncontrolled 01/24/2012 Sarcoidosis 02/01/2012 Demyelinating disease of central nervous system, unspecified (HCC) Demyelinating disease of central nervous system, unspecified 02/13/2012 Gastroenteritis Other and unspecified noninfectious gastroenteritis and colitis 02/19/2012 Abdominal pain, epigastric 02/19/2012 Type II or unspecified type diabetes mellitus without mention of complication, not stated as uncontrolled 02/19/2012 Myalgia and myositis, unspecified Mylagia and myositis, unspecified 02/19/2012 Migraine Migraine, unspecified, without mention of intractable migraine without mention of status migrainosus 04/01/2012 Obesity Obesity, unspecified 04/01/2012 Fibromyalgia Mylagia and myositis, unspecified 04/01/2012 Migraine Migraine, unspecified, without mention of intractable migraine without mention of status migrainosus 04/01/2012 Obesity Obesity, unspecified 04/01/2012 Fibromyalgia Mylagia and myositis, unspecified 04/01/2012 Hypertension Unspecified essential hypertension 04/01/2012 Diabetes mellitus type 2, uncontrolled Type II or unspecified type diabetes mellitus without mention of complication, uncontrolled 04/01/2012 Hyperlipidemia Other and unspecified hyperlipidemia 04/01/2012 Sleep apnea Unspecified sleep apnea 04/01/2012 Dysarthria 04/01/2012 Facial weakness 04/01/2012 Diabetes mellitus type 2, uncontrolled Type II or unspecified type diabetes mellitus without mention of complication, uncontrolled 04/02/2012 Hyperlipidemia Other and unspecified hyperlipidemia 04/02/2012 Hypertension Unspecified essential hypertension 04/02/2012 Obesity Obesity, unspecified 04/02/2012 Thyroid nodule Nontoxic uninodular goiter 04/02/2012 Diabetes mellitus type 2, uncontrolled Type II or unspecified type diabetes mellitus without mention of complication, uncontrolled 04/03/2012 Vitamin D deficiency Unspecified vitamin D deficiency 04/03/2012 FHx: early coronary artery disease Family history of ischemic heart disease 04/03/2012 Thyroid nodule Nontoxic uninodular goiter 04/03/2012 Diabetes mellitus type 2, uncontrolled Type II or unspecified type diabetes mellitus without mention of complication, uncontrolled 04/03/2012 Thyroid nodule Nontoxic uninodular goiter 04/03/2012 Vitamin D deficiency Unspecified vitamin D deficiency 04/03/2012 FHx: early coronary artery disease Family history of ischemic heart disease 04/03/2012 Dysarthria 04/08/2012 Facial weakness 04/08/2012 Migraine Migraine, unspecified, without mention of intractable migraine without mention of status migrainosus 04/09/2012 Obesity Obesity, unspecified 04/09/2012 Fibromyalgia Mylagia and myositis, unspecified 04/09/2012 Obstructive sleep apnea Obstructive sleep apnea (adult) (pediatric) 04/10/2012 Thyroid mass Unspecified disorder of thyroid 04/15/2012 Sleep apnea Unspecified sleep apnea 04/23/2012 Obesity Obesity, unspecified 04/23/2012 Fibromyalgia Mylagia and myositis, unspecified 04/23/2012 Diabetes mellitus type 2, uncontrolled Type II or unspecified type diabetes mellitus without mention of complication, uncontrolled 04/23/2012 Hypertension Unspecified essential hypertension 04/23/2012 Poor sleep hygiene Other specific disorder of sleep of nonorganic origin 04/23/2012 Dysphagia Dysphagia, unspecified 04/25/2012 Obstructive sleep apnea Obstructive sleep apnea (adult) (pediatric) 04/28/2012 Diabetes mellitus type 2, uncontrolled Type II or unspecified type diabetes mellitus without mention of complication, uncontrolled 05/01/2012 Hyperlipidemia Other and unspecified hyperlipidemia 05/01/2012 Vitamin D deficiency Unspecified vitamin D deficiency 05/01/2012 Type II or unspecified type diabetes mellitus without mention of complication, uncontrolled 05/22/2012 Plantar fasciitis Plantar fascial fibromatosis 06/16/2012 Peripheral neuropathy Unspecified hereditary and idiopathic peripheral neuropathy 06/16/2012 Pain in limb 06/16/2012 Type II or unspecified type diabetes mellitus with neurological manifestations, not stated as uncontrolled(250.60) Type II or unspecified type diabetes mellitus with neurological manifestations, not stated as uncontrolled 06/16/2012 Diabetes mellitus type 2, uncontrolled Type II or unspecified type diabetes mellitus without mention of complication, uncontrolled 06/25/2012 Fibromyalgia Mylagia and myositis, unspecified 06/25/2012 Sleep apnea Unspecified sleep apnea 06/25/2012 Hyperlipidemia Other and unspecified hyperlipidemia 06/25/2012 Diabetes mellitus type 2, uncontrolled Type II or unspecified type diabetes mellitus without mention of complication, uncontrolled 06/25/2012 Hypertension Unspecified essential hypertension 06/25/2012 Obesity Obesity, unspecified 06/25/2012 Abdominal pain, other specified site 07/15/2012 Vomiting alone 07/15/2012 Unspecified essential hypertension 07/15/2012 Type II or unspecified type diabetes mellitus without mention of complication, not stated as uncontrolled 07/15/2012 Diabetes mellitus type 2, uncontrolled Type II or unspecified type diabetes mellitus without mention of complication, uncontrolled 08/09/2012 Hyperlipidemia Other and unspecified hyperlipidemia 08/09/2012 Vitamin D deficiency Unspecified vitamin D deficiency 08/09/2012 Diabetes mellitus type 2, uncontrolled Type II or unspecified type diabetes mellitus without mention of complication, uncontrolled 08/12/2012 Vitamin D deficiency Unspecified vitamin D deficiency 08/12/2012 Hyperlipidemia Other and unspecified hyperlipidemia 08/12/2012 Thyroid nodule Nontoxic uninodular goiter 08/12/2012 Fibromyalgia Mylagia and myositis, unspecified 09/24/2012 Sleep apnea Unspecified sleep apnea 09/24/2012 Hyperlipidemia Other and unspecified hyperlipidemia 09/24/2012 Diabetes mellitus type 2, uncontrolled Type II or unspecified type diabetes mellitus without mention of complication, uncontrolled 09/24/2012 Hypertension Unspecified essential hypertension 09/24/2012 Obesity Obesity, unspecified 09/24/2012 Diabetes mellitus type 2, uncontrolled Type II or unspecified type diabetes mellitus without mention of complication, uncontrolled 12/11/2012 Hyperlipidemia Other and unspecified hyperlipidemia 12/11/2012 Chest pain Chest pain, unspecified 01/01/2013 Diabetes mellitus (HCC) Type II or unspecified type diabetes mellitus without mention of complication, not stated as uncontrolled 01/01/2013 Anxiety Anxiety state, unspecified 01/01/2013 Diabetes mellitus type 2, uncontrolled Type II or unspecified type diabetes mellitus without mention of complication, uncontrolled 01/01/2013 Migraine Migraine, unspecified, without mention of intractable migraine without mention of status migrainosus 01/01/2013 Obesity Obesity, unspecified 01/01/2013 Fibromyalgia Mylagia and myositis, unspecified 01/01/2013 Left sided numbness Disturbance of skin sensation 01/01/2013 Headache(784.0) Headache 01/01/2013 Type I (juvenile type) diabetes mellitus without mention of complication, not stated as uncontrolled 01/01/2013 Diabetes mellitus type 2, uncontrolled Type II or unspecified type diabetes mellitus without mention of complication, uncontrolled 01/10/2013 Hypertension Unspecified essential hypertension 01/10/2013 Hyperlipidemia Other and unspecified hyperlipidemia 01/10/2013 CHF (congestive heart failure) ([facility]) Congestive heart failure, unspecified 01/10/2013 Headache(784.0) Headache 01/10/2013 Hypertension Unspecified essential hypertension 01/22/2013 CHF (congestive heart failure) ([facility]) Congestive heart failure, unspecified 01/22/2013 Hyperlipidemia Other and unspecified hyperlipidemia 01/22/2013 Fibromyalgia Mylagia and myositis, unspecified 01/22/2013 Chest pain Chest pain, unspecified 01/22/2013 Sore throat Acute pharyngitis 02/06/2013 Cervical lymphadenopathy Enlargement of lymph nodes 02/06/2013 Viral gastroenteritis Intestinal infection due to other organism, not elsewhere classified 02/06/2013 Abscess of groin, left Cellulitis and abscess of trunk 03/28/2013 Fibromyalgia Mylagia and myositis, unspecified 04/17/2013 Sleep apnea Unspecified sleep apnea 04/17/2013 Hyperlipidemia Other and unspecified hyperlipidemia 04/17/2013 Diabetes mellitus type 2, uncontrolled Type II or unspecified type diabetes mellitus without mention of complication, uncontrolled 04/17/2013 Hypertension Unspecified essential hypertension 04/17/2013 Obesity Obesity, unspecified 04/17/2013 Chest pain Chest pain, unspecified 04/17/2013 Left sided numbness Disturbance of skin sensation 04/17/2013 CHF (congestive heart failure) (HCC) Congestive heart failure, unspecified 04/17/2013 Hyperlipidemia Other and unspecified hyperlipidemia 06/10/2013 Hypertension Unspecified essential hypertension 06/10/2013 CHF (congestive heart failure) (HCC) Congestive heart failure, unspecified 06/10/2013 Chest pain Chest pain, unspecified 06/10/2013 Left sided numbness Disturbance of skin sensation 06/10/2013 Other screening mammogram 06/10/2013 Hypertensive urgency Unspecified essential hypertension 06/23/2013 Chest pain Chest pain, unspecified 06/23/2013 Paresthesia Disturbance of skin sensation 06/23/2013 Sleep apnea Unspecified sleep apnea 06/23/2013 Diabetes mellitus type 2, uncontrolled Type II or unspecified type diabetes mellitus without mention of complication, uncontrolled 06/23/2013 Facial droop Facial weakness 06/23/2013 Fibromyalgia Mylagia and myositis, unspecified 06/23/2013 Hyperlipidemia Other and unspecified hyperlipidemia 06/23/2013 Angina at rest Other and unspecified angina pectoris 06/23/2013 Hypertension Unspecified essential hypertension 06/23/2013 Unspecified essential hypertension 06/23/2013 Chest pain, unspecified 06/23/2013 Disturbance of skin sensation 06/23/2013 Leg cramps Cramp of limb 07/02/2013 Diabetes mellitus type 2, uncontrolled Type II or unspecified type diabetes mellitus without mention of complication, uncontrolled 07/02/2013 Vitamin D deficiency Unspecified vitamin D deficiency 07/02/2013 Mixed hyperlipidemia 07/02/2013 Diabetes mellitus type 2, uncontrolled Type II or unspecified type diabetes mellitus without mention of complication, uncontrolled 08/14/2013 Vitamin D deficiency Unspecified vitamin D deficiency 08/14/2013 Mixed hyperlipidemia 08/14/2013 Diabetes mellitus type 2, uncontrolled Type II or unspecified type diabetes mellitus without mention of complication, uncontrolled 08/14/2013 Mixed hyperlipidemia 08/14/2013 Vitamin D deficiency Unspecified vitamin D deficiency 08/14/2013 Hyperlipidemia Other and unspecified hyperlipidemia 08/20/2013 Diabetes mellitus type 2, uncontrolled Type II or unspecified type diabetes mellitus without mention of complication, uncontrolled 08/20/2013 Thyroid nodule Nontoxic uninodular goiter 08/20/2013 Hypovitaminosis D Unspecified vitamin D deficiency 08/20/2013 Diabetes mellitus type 2, uncontrolled Type II or unspecified type diabetes mellitus without mention of complication, uncontrolled 09/23/2013 Diabetes mellitus type 2, uncontrolled Type II or unspecified type diabetes mellitus without mention of complication, uncontrolled 09/23/2013 Hyperlipidemia Other and unspecified hyperlipidemia 09/29/2013 Diabetes mellitus type 2, uncontrolled Type II or unspecified type diabetes mellitus without mention of complication, uncontrolled 09/29/2013 Thyroid nodule Nontoxic uninodular goiter 09/29/2013 Hypovitaminosis D Unspecified vitamin D deficiency 09/29/2013 Diabetes mellitus type 2, uncontrolled Type II or unspecified type diabetes mellitus without mention of complication, uncontrolled 10/07/2013 Mixed dyslipidemia Mixed hyperlipidemia 10/07/2013 Vitamin D deficiency Unspecified vitamin D deficiency 10/07/2013 Thyroid nodule Nontoxic uninodular goiter 10/07/2013 Diabetes mellitus type 2, uncontrolled Type II or unspecified type diabetes mellitus without mention of complication, uncontrolled 11/03/2013 Vitamin D deficiency Unspecified vitamin D deficiency 01/30/2014 Diabetes mellitus type 2, uncontrolled Type II or unspecified type diabetes mellitus without mention of complication, uncontrolled 01/30/2014 Thyroid nodule Nontoxic uninodular goiter 01/30/2014 Mixed dyslipidemia Mixed hyperlipidemia 01/30/2014 Diabetes mellitus type 2, uncontrolled Type II or unspecified type diabetes mellitus without mention of complication, uncontrolled 02/10/2014 Mixed dyslipidemia Mixed hyperlipidemia 02/10/2014 Thyroid nodule Nontoxic uninodular goiter 02/10/2014 Vitamin D deficiency Unspecified vitamin D deficiency 02/10/2014 Diabetes mellitus type 2, uncontrolled Type II or unspecified type diabetes mellitus without mention of complication, uncontrolled 03/10/2014 Mixed dyslipidemia Mixed hyperlipidemia 03/10/2014 Thyroid nodule Nontoxic uninodular goiter 03/10/2014 Vitamin D deficiency Unspecified vitamin D deficiency 03/10/2014 Diabetes mellitus type 2, uncontrolled Type II or unspecified type diabetes mellitus without mention of complication, uncontrolled 03/16/2014 Hypertension Unspecified essential hypertension 03/17/2014 Chest pain Chest pain, unspecified 03/17/2014 Mixed dyslipidemia Mixed hyperlipidemia 03/17/2014 Diabetes mellitus type 2, uncontrolled Type II or unspecified type diabetes mellitus without mention of complication, uncontrolled 03/19/2014 Myopic astigmatism, bilateral 03/19/2014 Presbyopia OU Presbyopia 03/19/2014 Dry eyes, bilateral Tear film insufficiency, unspecified 03/19/2014 Diabetes mellitus type 2, uncontrolled Type II or unspecified type diabetes mellitus without mention of complication, uncontrolled 03/27/2014 Diabetes mellitus type 2, uncontrolled Type II or unspecified type diabetes mellitus without mention of complication, uncontrolled 04/13/2014 Diabetes mellitus type 2, uncontrolled Type II or unspecified type diabetes mellitus without mention of complication, uncontrolled 06/11/2014 Mixed dyslipidemia Mixed hyperlipidemia 06/11/2014 Vitamin D deficiency Unspecified vitamin D deficiency 06/11/2014 Diabetes mellitus type 2, uncontrolled Type II or unspecified type diabetes mellitus without mention of complication, uncontrolled 10/20/2014 Mixed dyslipidemia Mixed hyperlipidemia 10/20/2014 Thyroid nodule Nontoxic uninodular goiter 10/20/2014 Vitamin D deficiency Unspecified vitamin D deficiency 10/20/2014 Diabetes mellitus type 2, uncontrolled Type II or unspecified type diabetes mellitus without mention of complication, uncontrolled 12/11/2014 Diabetes mellitus type 2, uncontrolled Type II or unspecified type diabetes mellitus without mention of complication, uncontrolled 02/09/2015 Diabetes mellitus type 2, uncontrolled Type II or unspecified type diabetes mellitus without mention of complication, uncontrolled 02/09/2015 Mixed dyslipidemia Mixed hyperlipidemia 02/09/2015 Thyroid nodule Nontoxic uninodular goiter 02/09/2015 Vitamin D deficiency Unspecified vitamin D deficiency 02/09/2015 Statin intolerance Other drug allergy 02/09/2015 Diabetes mellitus type 2, uncontrolled Type II or unspecified type diabetes mellitus without mention of complication, uncontrolled 06/22/2015 Mixed dyslipidemia Mixed hyperlipidemia 06/22/2015 Vitamin D deficiency Unspecified vitamin D deficiency 06/22/2015 Mixed dyslipidemia Mixed hyperlipidemia 01/06/2016 Diabetes mellitus type 2, uncontrolled Type II or unspecified type diabetes mellitus without mention of complication, uncontrolled 01/10/2016 Mixed dyslipidemia Mixed hyperlipidemia 01/10/2016 Vitamin D deficiency Unspecified vitamin D deficiency 01/10/2016 Diabetes mellitus type 2, uncontrolled Type II or unspecified type diabetes mellitus without mention of complication, uncontrolled 01/19/2016 Primary hypothyroidism Unspecified hypothyroidism 01/19/2016 Vitamin D deficiency Unspecified vitamin D deficiency 01/19/2016 Diabetes mellitus type 2, uncontrolled Type II or unspecified type diabetes mellitus without mention of complication, uncontrolled 05/29/2016 Vitamin D deficiency Unspecified vitamin D deficiency 05/29/2016 Postablative hypothyroidism Other postablative hypothyroidism 05/29/2016 History of thyroid cancer Personal history of malignant neoplasm of thyroid 05/29/2016 Diabetes mellitus type 2, uncontrolled Type II or unspecified type diabetes mellitus without mention of complication, uncontrolled 05/29/2016 Postablative hypothyroidism Other postablative hypothyroidism 05/29/2016 History of thyroid cancer Personal history of malignant neoplasm of thyroid 05/29/2016 Vitamin D deficiency Unspecified vitamin D deficiency 05/29/2016 Post-surgical hypothyroidism Postsurgical hypothyroidism 06/02/2016 Vitamin D deficiency Unspecified vitamin D deficiency 06/02/2016 Follicular thyroid cancer (HCC) Malignant neoplasm of thyroid gland 06/02/2016 Malignant neoplasm of thyroid gland (HCC) Malignant neoplasm of thyroid gland 07/14/2016 Follicular thyroid cancer (HCC) Malignant neoplasm of thyroid gland 07/14/2016 Uncontrolled type 2 diabetes mellitus without complication, with long-term current use of insulin 08/22/2016 Vitamin D deficiency Unspecified vitamin D deficiency 08/22/2016 Mixed dyslipidemia Mixed hyperlipidemia 08/22/2016 Post-surgical hypothyroidism Postsurgical hypothyroidism 08/22/2016 Follicular thyroid cancer (HCC) Malignant neoplasm of thyroid gland 08/22/2016 Uncontrolled type 2 diabetes mellitus without complication, with long-term current use of insulin 08/22/2016 Follicular thyroid cancer (HCC) Malignant neoplasm of thyroid gland 08/22/2016 Post-surgical hypothyroidism Postsurgical hypothyroidism 08/22/2016 Mixed dyslipidemia Mixed hyperlipidemia 08/22/2016 Vitamin D deficiency Unspecified vitamin D deficiency 08/22/2016 Statin intolerance Other drug allergy 08/22/2016 Post-surgical hypothyroidism Postsurgical hypothyroidism 08/28/2016 Uncontrolled type 2 diabetes mellitus without complication, with long-term current use of insulin 10/31/2016 Post-surgical hypothyroidism Postsurgical hypothyroidism 10/31/2016 Uncontrolled type 2 diabetes mellitus with complication, unspecified senior living insulin use status 11/27/2016 Post-surgical hypothyroidism Postsurgical hypothyroidism 11/27/2016 Follicular thyroid cancer (HCC) Malignant neoplasm of thyroid gland 11/27/2016 Mixed dyslipidemia Mixed hyperlipidemia 11/27/2016 Mixed dyslipidemia Mixed hyperlipidemia 11/27/2016 Uncontrolled type 2 diabetes mellitus with complication, with long-term current use of insulin 11/27/2016 Post-surgical hypothyroidism Postsurgical hypothyroidism 11/27/2016 Follicular thyroid cancer (HCC) Malignant neoplasm of thyroid gland 11/27/2016 Essential hypertension Unspecified essential hypertension 11/27/2016 Sleep apnea, unspecified type 11/27/2016 Vitamin D deficiency Unspecified vitamin D deficiency 11/27/2016 Morbid obesity with BMI of 45.0-49.9, adult (HCC) 11/27/2016 Uncontrolled type 2 diabetes mellitus with complication, with long-term current use of insulin 01/02/2017 Post-surgical hypothyroidism Postsurgical hypothyroidism 01/02/2017 Follicular thyroid cancer (HCC) Malignant neoplasm of thyroid gland 01/02/2017 Mixed dyslipidemia Mixed hyperlipidemia 01/02/2017 Vitamin D deficiency Unspecified vitamin D deficiency 01/02/2017 Morbid obesity due to excess calories (HCC) 01/26/2017 Uncontrolled type 2 diabetes mellitus with complication, with long-term current use of insulin 01/26/2017 Sleep apnea, unspecified type 01/26/2017 Morbid obesity due to excess calories (HCC) 01/26/2017 History of weight gain 01/31/2017 Morbid obesity due to excess calories (HCC) 01/31/2017 BMI 40.0-44.9, adult (HCC) Body Mass Index 40.0-44.9, adult 01/31/2017 Weight gain Abnormal weight gain 03/06/2017 SATYA (obstructive sleep apnea) Obstructive sleep apnea (adult) (pediatric) 03/06/2017 Uncontrolled type 2 diabetes mellitus with complication, with long-term current use of insulin 03/06/2017 Post-surgical hypothyroidism Postsurgical hypothyroidism 03/06/2017 Follicular thyroid cancer (HCC) Malignant neoplasm of thyroid gland 03/06/2017 Morbid obesity due to excess calories (HCC) 03/06/2017 BMI 40.0-44.9, adult ([facility]) Body Mass Index 40.0-44.9, adult 03/06/2017 Mixed dyslipidemia Mixed hyperlipidemia 03/06/2017 Congestive heart failure, unspecified congestive heart failure chronicity, unspecified congestive heart failure type 03/06/2017 Vitamin D deficiency Unspecified vitamin D deficiency 03/06/2017 Essential hypertension Unspecified essential hypertension 03/06/2017 H/O heart artery stent Postsurgical percutaneous transluminal coronary angioplasty status 03/06/2017 Diverticulosis of intestine without bleeding, unspecified intestinal tract location 03/06/2017 Encounter for nutrition evaluation prior to bariatric surgery Dietary surveillance and counseling 03/06/2017 Encounter for pre-bariatric surgery counseling and education 03/06/2017 Pre-operative laboratory examination Pre-procedural laboratory examination 03/06/2017 Hypocalcemia 03/06/2017 Uncontrolled type 2 diabetes mellitus without complication, with long-term current use of insulin 03/06/2017 Vitamin D deficiency Unspecified vitamin D deficiency 03/06/2017 Post-surgical hypothyroidism Postsurgical hypothyroidism 03/06/2017 Weight gain Abnormal weight gain 03/12/2017 SATYA (obstructive sleep apnea) Obstructive sleep apnea (adult) (pediatric) 03/12/2017 Uncontrolled type 2 diabetes mellitus with complication, with long-term current use of insulin 03/12/2017 Morbid obesity due to excess calories (HCC) 03/12/2017 BMI 40.0-44.9, adult (HCC) Body Mass Index 40.0-44.9, adult 03/12/2017 Congestive heart failure, unspecified congestive heart failure chronicity, unspecified congestive heart failure type 03/12/2017 Diverticulosis of intestine without bleeding, unspecified intestinal tract location 03/12/2017 Pre-operative laboratory examination Pre-procedural laboratory examination 03/12/2017 Weight gain Abnormal weight gain 03/12/2017 Morbid obesity due to excess calories (HCC) 03/13/2017 Weight gain Abnormal weight gain 03/13/2017 Obesity (BMI 30-39.9) Obesity, unspecified 03/19/2017 Morbid obesity due to excess calories (HCC) 03/30/2017 Weight gain Abnormal weight gain 03/30/2017 Other specified eating disorder 03/30/2017 Major depressive disorder, recurrent episode, in partial remission Major depressive disorder, recurrent episode, in partial or unspecified remission 03/30/2017 Generalized anxiety disorder 03/30/2017 No diagnosis on [place] [facility] Observation of other suspected mental condition 03/30/2017 Morbid obesity due to excess calories (HCC) 03/30/2017 BMI 40.0-44.9, adult (HCC) Body Mass Index 40.0-44.9, adult 03/30/2017 Morbid obesity due to excess calories (HCC) 04/03/2017 BMI 40.0-44.9, adult (HCC) Body Mass Index 40.0-44.9, adult 04/03/2017 Fatty liver Other chronic nonalcoholic liver disease 04/03/2017 MEIER (nonalcoholic steatohepatitis) Other chronic nonalcoholic liver disease 04/03/2017 Uncontrolled type 2 diabetes mellitus with complication, with long-term current use of insulin 04/03/2017 Post-surgical hypothyroidism Postsurgical hypothyroidism 04/03/2017 Follicular thyroid cancer (HCC) Malignant neoplasm of thyroid gland 04/03/2017 Mixed dyslipidemia Mixed hyperlipidemia 04/03/2017 Hypocalcemia 04/03/2017 Congestive heart failure, unspecified congestive heart failure chronicity, unspecified congestive heart failure type 04/03/2017 Vitamin D deficiency Unspecified vitamin D deficiency 04/03/2017 Statin intolerance Other drug allergy 04/03/2017 Essential hypertension Unspecified essential hypertension 04/03/2017 Fibromyalgia Mylagia and myositis, unspecified 04/03/2017 Sleep apnea, unspecified type 04/03/2017 H/O heart artery stent Postsurgical percutaneous transluminal coronary angioplasty status 04/03/2017 Angina at rest Other and unspecified angina pectoris 04/03/2017 Morbid obesity due to excess calories (HCC) 04/16/2017 Morbid obesity with BMI of 40.0-44.9, adult ([facility]) 04/18/2017 Morbid obesity due to excess calories (HCC) 05/03/2017 Morbid obesity, unspecified obesity type ([facility]) 05/03/2017 Morbid obesity with BMI of 40.0-44.9, adult ([facility]) 05/03/2017 Vitamin deficiency Unspecified vitamin deficiency 05/08/2017 Morbid obesity with BMI of 40.0-44.9, adult ([facility]) 05/17/2017 Uncontrolled type 2 diabetes mellitus with complication, with long-term current use of insulin 05/17/2017 Essential hypertension Unspecified essential hypertension 05/17/2017 Sleep apnea, unspecified type 05/17/2017 Morbid obesity due to excess calories ([facility]) 05/17/2017 Chest pain, unspecified type 05/17/2017 Combined systolic and diastolic congestive heart failure, unspecified congestive heart failure chronicity 05/17/2017 Angina at rest Other and unspecified angina pectoris 05/17/2017 Vitamin D deficiency Unspecified vitamin D deficiency 05/17/2017 Statin intolerance Other drug allergy 05/17/2017 Post-surgical hypothyroidism Postsurgical hypothyroidism 05/17/2017 Follicular thyroid cancer (HCC) Malignant neoplasm of thyroid gland 05/17/2017 Fatty liver Other chronic nonalcoholic liver disease 05/17/2017 MEIER (nonalcoholic steatohepatitis) Other chronic nonalcoholic liver disease 05/17/2017 Morbid obesity with BMI of 40.0-44.9, adult ([facility]) 05/17/2017 Coronary artery disease of [place] heart with stable angina pectoris, unspecified vessel or lesion type 05/21/2017 History of coronary artery stent placement 05/21/2017 Morbid obesity (HCC) Morbid obesity 05/21/2017 BMI 40.0-44.9, adult ([facility]) Body Mass Index 40.0-44.9, adult 05/21/2017 Uncontrolled type 2 diabetes mellitus with complication, with long-term current use of insulin 05/21/2017 Post-surgical hypothyroidism Postsurgical hypothyroidism 05/21/2017 Mixed dyslipidemia Mixed hyperlipidemia 05/21/2017 Hypocalcemia 05/21/2017 Fatty liver Other chronic nonalcoholic liver disease 05/21/2017 Combined systolic and diastolic congestive heart failure, unspecified congestive heart failure chronicity 05/21/2017 Vitamin D deficiency Unspecified vitamin D deficiency 05/21/2017 Essential hypertension Unspecified essential hypertension 05/21/2017 Sleep apnea, unspecified type 05/21/2017 MEIER (nonalcoholic steatohepatitis) Other chronic nonalcoholic liver disease 05/21/2017 Preop testing Preoperative examination, unspecified 05/23/2017 Morbid obesity due to excess calories (HCC) 05/23/2017 Morbid obesity (HCC) Morbid obesity 05/30/2017 Fever, unspecified fever cause 06/06/2017 Cough 06/06/2017 History of sleeve gastrectomy 06/06/2017 Platelet inhibition due to Plavix Other secondary thrombocytopenia 06/06/2017 Fever, unspecified fever cause 06/06/2017 Cough 06/06/2017 History of sleeve gastrectomy 06/06/2017 Platelet inhibition due to Plavix Other secondary thrombocytopenia 06/06/2017 Gastroesophageal reflux disease, esophagitis presence not specified 06/06/2017 Diarrhea of presumed infectious origin 06/06/2017 Uncontrolled type 2 diabetes mellitus with complication, with long-term current use of insulin 06/06/2017 Class 2 obesity due to excess calories with serious comorbidity and body mass index (BMI) of 39.0 to 39.9 in adult 06/06/2017 Mixed dyslipidemia Mixed hyperlipidemia 06/06/2017 Essential hypertension Unspecified essential hypertension 06/06/2017 Sleep apnea, unspecified type 06/06/2017 H/O heart artery stent Postsurgical percutaneous transluminal coronary angioplasty status 06/06/2017 S/P laparoscopic sleeve gastrectomy 06/06/2017 Leg cramps Cramp of limb 06/14/2017 Thiamine deficiency Other and unspecified manifestations of thiamine deficiency 06/14/2017 S/P laparoscopic sleeve gastrectomy 06/14/2017 Postsurgical malabsorption Other and unspecified postsurgical nonabsorption 06/14/2017 Leg cramps Cramp of limb 06/14/2017 Thiamine deficiency Other and unspecified manifestations of thiamine deficiency 06/14/2017 S/P laparoscopic sleeve gastrectomy 06/14/2017 Postsurgical malabsorption Other and unspecified postsurgical nonabsorption 06/14/2017 Essential hypertension Unspecified essential hypertension 06/14/2017 Uncontrolled type 2 diabetes mellitus with complication, with long-term current use of insulin 06/14/2017 Sleep apnea, unspecified type 06/14/2017 Dyslipidemia associated with type 2 diabetes mellitus (HCC) Type II or unspecified type diabetes mellitus with other specified manifestations, not stated as uncontrolled 07/03/2017 Vitamin D deficiency Unspecified vitamin D deficiency 07/03/2017 Class 2 obesity due to excess calories with serious comorbidity and body mass index (BMI) of 37.0 to 37.9 in adult 07/03/2017 Post-surgical hypothyroidism Postsurgical hypothyroidism 07/03/2017 Uncontrolled type 2 diabetes mellitus with complication, with long-term current use of insulin 07/03/2017 Hypocalcemia 07/03/2017 Mixed dyslipidemia Mixed hyperlipidemia 07/03/2017 Vitamin D deficiency Unspecified vitamin D deficiency 07/03/2017 S/P laparoscopic sleeve gastrectomy 07/03/2017 Essential hypertension Unspecified essential hypertension 07/03/2017 Sleep apnea, unspecified type 07/03/2017 Gastroesophageal reflux disease, esophagitis presence not specified 07/03/2017 Obesity, Class II, BMI 35-39.9, with comorbidity Obesity, unspecified 07/10/2017 Dyslipidemia associated with type 2 diabetes mellitus (HCC) Type II or unspecified type diabetes mellitus with other specified manifestations, not stated as uncontrolled 08/02/2017 Post-surgical hypothyroidism Postsurgical hypothyroidism 08/02/2017 Vitamin D deficiency Unspecified vitamin D deficiency 08/02/2017 Contact dermatitis of right eyelid 08/03/2017 Allergic conjunctivitis of both eyes Other chronic allergic conjunctivitis 08/03/2017 Gastroesophageal reflux disease, esophagitis presence not specified 08/11/2017 Class 2 obesity due to excess calories with serious comorbidity and body mass index (BMI) of 37.0 to 37.9 in adult 08/28/2017 S/P laparoscopic sleeve gastrectomy 08/28/2017 Uncontrolled type 2 diabetes mellitus with complication, with long-term current use of insulin 08/28/2017 Mixed dyslipidemia Mixed hyperlipidemia 08/28/2017 Essential hypertension Unspecified essential hypertension 08/28/2017 Sleep apnea, unspecified type 08/28/2017 Gastroesophageal reflux disease, esophagitis presence not specified 08/28/2017 Gastroesophageal reflux disease, esophagitis presence not specified 09/12/2017 Dyslipidemia associated with type 2 diabetes mellitus (HCC) Type II or unspecified type diabetes mellitus with other specified manifestations, not stated as uncontrolled 09/12/2017 Follicular thyroid cancer (HCC) Malignant neoplasm of thyroid gland 09/12/2017 Post-surgical hypothyroidism Postsurgical hypothyroidism 09/12/2017 Vitamin D deficiency Unspecified vitamin D deficiency 09/12/2017 Dyslipidemia associated with type 2 diabetes mellitus (HCC) Type II or unspecified type diabetes mellitus with other specified manifestations, not stated as uncontrolled 10/24/2017 Vitamin D deficiency Unspecified vitamin D deficiency 10/24/2017 Post-surgical hypothyroidism Postsurgical hypothyroidism 10/24/2017 Post-surgical hypothyroidism Postsurgical hypothyroidism 10/24/2017 Uncontrolled type 2 diabetes mellitus with complication, with long-term current use of insulin 10/24/2017 Mixed dyslipidemia Mixed hyperlipidemia 10/24/2017 Vitamin D deficiency Unspecified vitamin D deficiency 10/24/2017 Post-surgical hypothyroidism Postsurgical hypothyroidism 10/26/2017 Uncontrolled type 2 diabetes mellitus with complication, with long-term current use of insulin 10/26/2017 Post-surgical hypothyroidism Postsurgical hypothyroidism 10/26/2017 Follicular thyroid cancer (HCC) Malignant neoplasm of thyroid gland 10/26/2017 Mixed dyslipidemia Mixed hyperlipidemia 10/26/2017 Dyslipidemia associated with type 2 diabetes mellitus (HCC) Type II or unspecified type diabetes mellitus with other specified manifestations, not stated as uncontrolled 11/20/2017 Post-surgical hypothyroidism Postsurgical hypothyroidism 11/29/2017 Uncontrolled type 2 diabetes mellitus with complication, with long-term current use of insulin 11/29/2017 Follicular thyroid cancer (HCC) Malignant neoplasm of thyroid gland 11/29/2017 Mixed dyslipidemia Mixed hyperlipidemia 11/29/2017 Vitamin D deficiency Unspecified vitamin D deficiency 11/29/2017 Post-surgical hypothyroidism Postsurgical hypothyroidism 12/06/2017 Class 2 severe obesity due to excess calories with serious comorbidity and body mass index (BMI) of 35.0 to 35.9 in adult (HCC) 12/10/2017 Follicular thyroid cancer (HCC) Malignant neoplasm of thyroid gland 12/10/2017 Post-surgical hypothyroidism Postsurgical hypothyroidism 12/10/2017 Uncontrolled type 2 diabetes mellitus with complication, with long-term current use of insulin 12/10/2017 Hypocalcemia 12/10/2017 Mixed dyslipidemia Mixed hyperlipidemia 12/10/2017 Vitamin D deficiency Unspecified vitamin D deficiency 12/10/2017 S/P laparoscopic sleeve gastrectomy 12/10/2017 Essential hypertension Unspecified essential hypertension 12/10/2017 Sleep apnea, unspecified type 12/10/2017 H/O heart artery stent Postsurgical percutaneous transluminal coronary angioplasty status 12/10/2017 Gastroesophageal reflux disease, esophagitis presence not specified 12/10/2017 Dyslipidemia associated with type 2 diabetes mellitus (HCC) Type II or unspecified type diabetes mellitus with other specified manifestations, not stated as uncontrolled 12/27/2017 Follicular thyroid cancer (HCC) Malignant neoplasm of thyroid gland 01/02/2018 Post-surgical hypothyroidism Postsurgical hypothyroidism 01/02/2018 Uncontrolled type 2 diabetes mellitus with complication, with long-term current use of insulin 01/02/2018 S/P laparoscopic sleeve gastrectomy 01/02/2018 Hypocalcemia 01/02/2018 Type 2 diabetes mellitus without retinopathy (HCC) Type II or unspecified type diabetes mellitus without mention of complication, not stated as uncontrolled 01/02/2018 KCS (keratoconjunctivitis sicca) Sicca syndrome 01/02/2018 Contact dermatitis of right eyelid 01/02/2018 Refractive error Unspecified disorder of refraction and accommodation 01/02/2018 Gastroesophageal reflux disease, esophagitis presence not specified 04/03/2018 Uncontrolled type 2 diabetes mellitus with complication, with long-term current use of insulin 05/03/2018 Vitamin D deficiency Unspecified vitamin D deficiency 05/03/2018 Mixed dyslipidemia Mixed hyperlipidemia 05/03/2018 S/P laparoscopic sleeve gastrectomy 07/05/2018 Postsurgical malabsorption Other and unspecified postsurgical nonabsorption 07/05/2018 Encounter for vitamin deficiency screening Screening for other and unspecified endocrine, nutritional, metabolic, and immunity disorders 07/05/2018 S/P laparoscopic sleeve gastrectomy 07/05/2018 Vitamin D deficiency Unspecified vitamin D deficiency 07/05/2018 Uncontrolled type 2 diabetes mellitus with complication, with long-term current use of insulin 07/05/2018 Mixed dyslipidemia Mixed hyperlipidemia 07/05/2018 Gastroesophageal reflux disease without esophagitis Esophageal reflux 07/05/2018 Postsurgical malabsorption Other and unspecified postsurgical nonabsorption 07/05/2018 Encounter for vitamin deficiency screening Screening for other and unspecified endocrine, nutritional, metabolic, and immunity disorders 07/05/2018 Uncontrolled type 2 diabetes mellitus with complication, with long-term current use of insulin 07/19/2018 Dyslipidemia associated with type 2 diabetes mellitus (HCC) Type II or unspecified type diabetes mellitus with other specified manifestations, not stated as uncontrolled 07/19/2018 Post-surgical hypothyroidism Postsurgical hypothyroidism 07/19/2018 Uncontrolled type 2 diabetes mellitus with complication Type II or unspecified type diabetes mellitus with unspecified complication, uncontrolled 07/19/2018 Follicular thyroid cancer (HCC) Malignant neoplasm of thyroid gland 07/19/2018 Mixed dyslipidemia Mixed hyperlipidemia 07/19/2018 Vitamin D deficiency Unspecified vitamin D deficiency 07/19/2018 Statin intolerance Other drug allergy 07/19/2018 Fatty liver Other chronic nonalcoholic liver disease 07/19/2018 Essential hypertension Unspecified essential hypertension 07/19/2018 Sleep apnea, unspecified type 07/19/2018 S/P laparoscopic sleeve gastrectomy 07/19/2018 MEIER (nonalcoholic steatohepatitis) Other chronic nonalcoholic liver disease 07/19/2018 Diabetic autonomic neuropathy associated with type 2 diabetes mellitus (HCC) Type II or unspecified type diabetes mellitus with neurological manifestations, not stated as uncontrolled 07/19/2018 Post-surgical hypothyroidism Postsurgical hypothyroidism 09/03/2018 Dyslipidemia associated with type 2 diabetes mellitus (HCC) Type II or unspecified type diabetes mellitus with other specified manifestations, not stated as uncontrolled 11/20/2018 Post-surgical hypothyroidism Postsurgical hypothyroidism 11/20/2018 Dyslipidemia associated with type 2 diabetes mellitus (HCC) Type II or unspecified type diabetes mellitus with other specified manifestations, not stated as uncontrolled 11/21/2018 Uncontrolled type 2 diabetes mellitus with complication Type II or unspecified type diabetes mellitus with unspecified complication, uncontrolled 11/22/2018 Dyslipidemia associated with type 2 diabetes mellitus (HCC) Type II or unspecified type diabetes mellitus with other specified manifestations, not stated as uncontrolled 01/16/2019 Post-surgical hypothyroidism Postsurgical hypothyroidism 01/16/2019 Follicular thyroid cancer (HCC) Malignant neoplasm of thyroid gland 01/16/2019 Statin intolerance Other drug allergy 01/16/2019 Vitamin D deficiency Unspecified vitamin D deficiency 01/16/2019 Uncontrolled type 2 diabetes mellitus with complication Type II or unspecified type diabetes mellitus with unspecified complication, uncontrolled 01/29/2019 Hypoglycemia associated with diabetes (HCC) Type II or unspecified type diabetes mellitus with other specified manifestations, not stated as uncontrolled 01/29/2019 Uncontrolled type 2 diabetes mellitus with complication Type II or unspecified type diabetes mellitus with unspecified complication, uncontrolled 01/29/2019 Uncontrolled type 2 diabetes mellitus with complication Type II or unspecified type diabetes mellitus with unspecified complication, uncontrolled 03/04/2019 Post-surgical hypothyroidism Postsurgical hypothyroidism 03/04/2019 Follicular thyroid cancer (HCC) Malignant neoplasm of thyroid gland 03/04/2019 Diabetic autonomic neuropathy associated with type 2 diabetes mellitus (HCC) Type II or unspecified type diabetes mellitus with neurological manifestations, not stated as uncontrolled 03/04/2019 Mixed dyslipidemia Mixed hyperlipidemia 03/04/2019 Vitamin D deficiency Unspecified vitamin D deficiency 03/04/2019 Statin intolerance Other drug allergy 03/04/2019 Essential hypertension Unspecified essential hypertension 03/04/2019 Sleep apnea, unspecified type 03/04/2019 MEIER (nonalcoholic steatohepatitis) Other chronic nonalcoholic liver disease 03/04/2019 Dyslipidemia associated with type 2 diabetes mellitus (HCC) Type II or unspecified type diabetes mellitus with other specified manifestations, not stated as uncontrolled 07/02/2019 Post-surgical hypothyroidism Postsurgical hypothyroidism 07/02/2019 Uncontrolled type 2 diabetes mellitus with complication, with long-term current use of insulin 08/08/2019 Post-surgical hypothyroidism Postsurgical hypothyroidism 10/13/2019 Dyslipidemia associated with type 2 diabetes mellitus (HCC) Type II or unspecified type diabetes mellitus with other specified manifestations, not stated as uncontrolled 10/13/2019 Follicular thyroid cancer (HCC) Malignant neoplasm of thyroid gland 10/13/2019 Vitamin D deficiency Unspecified vitamin D deficiency 10/13/2019 Mixed dyslipidemia Mixed hyperlipidemia 10/31/2019 Dyslipidemia associated with type 2 diabetes mellitus (HCC) Type II or unspecified type diabetes mellitus with other specified manifestations, not stated as uncontrolled 11/17/2019 Uncontrolled type 2 diabetes mellitus with complication, with long-term current use of insulin 01/21/2020 Dyslipidemia associated with type 2 diabetes mellitus (HCC) Type II or unspecified type diabetes mellitus with other specified manifestations, not stated as uncontrolled 02/18/2020 Dyslipidemia associated with type 2 diabetes mellitus (HCC) Type II or unspecified type diabetes mellitus with other specified manifestations, not stated as uncontrolled 2020 Post-surgical hypothyroidism Postsurgical hypothyroidism 2020 Follicular thyroid cancer (HCC) Malignant neoplasm of thyroid gland 2020 Vitamin D deficiency Unspecified vitamin D deficiency 2020 Carpal tunnel syndrome, bilateral Carpal tunnel syndrome 03/29/2020 Bilateral carpal tunnel syndrome Carpal tunnel syndrome 04/12/2020 Dyslipidemia associated with type 2 diabetes mellitus (HCC) Type II or unspecified type diabetes mellitus with other specified manifestations, not stated as uncontrolled 07/15/2020 Post-surgical hypothyroidism Postsurgical hypothyroidism 07/15/2020 Vitamin D deficiency Unspecified vitamin D deficiency 07/15/2020 Follicular thyroid cancer (HCC) Malignant neoplasm of thyroid gland 07/15/2020 Dyslipidemia associated with type 2 diabetes mellitus (HCC) Type II or unspecified type diabetes mellitus with other specified manifestations, not stated as uncontrolled 08/19/2020 Post-surgical hypothyroidism Postsurgical hypothyroidism 10/28/2020 Follicular thyroid cancer (HCC) Malignant neoplasm of thyroid gland 10/28/2020 Vitamin D deficiency Unspecified vitamin D deficiency 10/28/2020 Dyslipidemia associated with type 2 diabetes mellitus (HCC) Type II or unspecified type diabetes mellitus with other specified manifestations, not stated as uncontrolled 10/28/2020 Dyslipidemia associated with type 2 diabetes mellitus (HCC) Type II or unspecified type diabetes mellitus with other specified manifestations, not stated as uncontrolled 01/03/2021 Dyslipidemia associated with type 2 diabetes mellitus (HCC) Type II or unspecified type diabetes mellitus with other specified manifestations, not stated as uncontrolled 02/03/2021 Post-surgical hypothyroidism Postsurgical hypothyroidism 02/03/2021 Vitamin D deficiency Unspecified vitamin D deficiency 02/03/2021 Uncontrolled type 2 diabetes mellitus with complication Type II or unspecified type diabetes mellitus with unspecified complication, uncontrolled 02/08/2021 Uncontrolled type 2 diabetes mellitus with complication Type II or unspecified type diabetes mellitus with unspecified complication, uncontrolled 02/23/2021 Uncontrolled type 2 diabetes mellitus with complication Type II or unspecified type diabetes mellitus with unspecified complication, uncontrolled 03/04/2021 Uncontrolled type 2 diabetes mellitus with complication Type II or unspecified type diabetes mellitus with unspecified complication, uncontrolled 03/04/2021 Uncontrolled type 2 diabetes mellitus with complication Type II or unspecified type diabetes mellitus with unspecified complication, uncontrolled 03/17/2021 Uncontrolled type 2 diabetes mellitus with complication Type II or unspecified type diabetes mellitus with unspecified complication, uncontrolled 04/14/2021 Uncontrolled type 2 diabetes mellitus with complication, with long-term current use of insulin 04/14/2021 Dyslipidemia associated with type 2 diabetes mellitus (HCC) Type II or unspecified type diabetes mellitus with other specified manifestations, not stated as uncontrolled 04/14/2021 Dyslipidemia associated with type 2 diabetes mellitus (HCC) Type II or unspecified type diabetes mellitus with other specified manifestations, not stated as uncontrolled 05/19/2021 Dyslipidemia associated with type 2 diabetes mellitus (HCC) Type II or unspecified type diabetes mellitus with other specified manifestations, not stated as uncontrolled 06/06/2021 Vitamin D deficiency Unspecified vitamin D deficiency 06/06/2021 Statin intolerance Other drug allergy 06/06/2021 Post-surgical hypothyroidism Postsurgical hypothyroidism 06/09/2021 Uncontrolled type 2 diabetes mellitus with complication Type II or unspecified type diabetes mellitus with unspecified complication, uncontrolled 07/15/2021 Uncontrolled type 2 diabetes mellitus with complication Type II or unspecified type diabetes mellitus with unspecified complication, uncontrolled 07/25/2021 Dyslipidemia associated with type 2 diabetes mellitus (HCC) Type II or unspecified type diabetes mellitus with other specified manifestations, not stated as uncontrolled 07/29/2021 Diabetic autonomic neuropathy associated with type 2 diabetes mellitus (HCC) Type II or unspecified type diabetes mellitus with neurological manifestations, not stated as uncontrolled 07/29/2021 Uncontrolled type 2 diabetes mellitus with complication Type II or unspecified type diabetes mellitus with unspecified complication, uncontrolled 08/12/2021 Uncontrolled type 2 diabetes mellitus with complication Type II or unspecified type diabetes mellitus with unspecified complication, uncontrolled 09/12/2021 Dyslipidemia associated with type 2 diabetes mellitus (HCC) Type II or unspecified type diabetes mellitus with other specified manifestations, not stated as uncontrolled 09/12/2021 Diabetic autonomic neuropathy associated with type 2 diabetes mellitus (HCC) Type II or unspecified type diabetes mellitus with neurological manifestations, not stated as uncontrolled 09/12/2021 Vitamin D deficiency Unspecified vitamin D deficiency 09/12/2021 Post-surgical hypothyroidism Postsurgical hypothyroidism 09/12/2021 Uncontrolled type 2 diabetes mellitus with complication, with long-term current use of insulin 09/12/2021 Dyslipidemia associated with type 2 diabetes mellitus (HCC) Type II or unspecified type diabetes mellitus with other specified manifestations, not stated as uncontrolled 11/04/2021 Uncontrolled type 2 diabetes mellitus with complication Type II or unspecified type diabetes mellitus with unspecified complication, uncontrolled 11/12/2021 Post-surgical hypothyroidism Postsurgical hypothyroidism 11/16/2021 Dyslipidemia associated with type 2 diabetes mellitus (HCC) Type II or unspecified type diabetes mellitus with other specified manifestations, not stated as uncontrolled 12/01/2021 Vitamin D deficiency Unspecified vitamin D deficiency 12/01/2021 Post-surgical hypothyroidism Postsurgical hypothyroidism 12/01/2021 Follicular thyroid cancer (HCC) Malignant neoplasm of thyroid gland 12/01/2021 Dyslipidemia associated with type 2 diabetes mellitus (HCC) Type II or unspecified type diabetes mellitus with other specified manifestations, not stated as uncontrolled 12/06/2021 Hyperlipidemia associated with type 2 diabetes mellitus (HCC) 12/06/2021 Dyslipidemia associated with type 2 diabetes mellitus (HCC) Type II or unspecified type diabetes mellitus with other specified manifestations, not stated as uncontrolled 02/02/2022 Post-surgical hypothyroidism Postsurgical hypothyroidism 02/02/2022 Follicular thyroid cancer (HCC) Malignant neoplasm of thyroid gland 02/02/2022 Vitamin D deficiency Unspecified vitamin D deficiency 02/02/2022 Dyslipidemia associated with type 2 diabetes mellitus (HCC) Type II or unspecified type diabetes mellitus with other specified manifestations, not stated as uncontrolled 02/15/2022 Dyslipidemia associated with type 2 diabetes mellitus (HCC) Type II or unspecified type diabetes mellitus with other specified manifestations, not stated as uncontrolled 05/09/2022 Post-surgical hypothyroidism Postsurgical hypothyroidism 05/09/2022 Dyslipidemia associated with type 2 diabetes mellitus (HCC) Type II or unspecified type diabetes mellitus with other specified manifestations, not stated as uncontrolled 06/01/2022 Dyslipidemia associated with type 2 diabetes mellitus (HCC) Type II or unspecified type diabetes mellitus with other specified manifestations, not stated as uncontrolled 06/19/2022 Post-surgical hypothyroidism Postsurgical hypothyroidism 07/10/2022 Dyslipidemia associated with type 2 diabetes mellitus (HCC) Type II or unspecified type diabetes mellitus with other specified manifestations, not stated as uncontrolled 08/06/2022 Dyslipidemia associated with type 2 diabetes mellitus (HCC) Type II or unspecified type diabetes mellitus with other specified manifestations, not stated as uncontrolled 11/14/2022 Post-surgical hypothyroidism Postsurgical hypothyroidism 11/14/2022 Vitamin D deficiency Unspecified vitamin D deficiency 11/14/2022 Dyslipidemia associated with type 2 diabetes mellitus (HCC) Type II or unspecified type diabetes mellitus with other specified manifestations, not stated as uncontrolled 11/16/2022 Hyperlipidemia associated with type 2 diabetes mellitus (HCC) 11/16/2022 Dyslipidemia associated with type 2 diabetes mellitus (HCC) Type II or unspecified type diabetes mellitus with other specified manifestations, not stated as uncontrolled 11/23/2022 Hyperlipidemia associated with type 2 diabetes mellitus (HCC) 11/23/2022 Dyslipidemia associated with type 2 diabetes mellitus (HCC) Type II or unspecified type diabetes mellitus with other specified manifestations, not stated as uncontrolled 11/28/2022 Post-surgical hypothyroidism Postsurgical hypothyroidism 02/02/2023 Vitamin D deficiency Unspecified vitamin D deficiency 02/05/2023 Hyperlipidemia associated with type 2 diabetes mellitus (HCC) 02/14/2023 Dyslipidemia associated with type 2 diabetes mellitus (HCC) Type II or unspecified type diabetes mellitus with other specified manifestations, not stated as uncontrolled 03/06/2023 Type 2 diabetes mellitus with hyperglycemia, with long-term current use of insulin (HCC) 03/06/2023 Post-surgical hypothyroidism Postsurgical hypothyroidism 03/07/2023 Dyslipidemia associated with type 2 diabetes mellitus (HCC) Type II or unspecified type diabetes mellitus with other specified manifestations, not stated as uncontrolled 03/20/2023 Vitamin D deficiency Unspecified vitamin D deficiency 03/20/2023 Post-surgical hypothyroidism Postsurgical hypothyroidism 03/20/2023 Type 2 diabetes mellitus with hyperglycemia, with long-term current use of insulin (HCC) 03/20/2023 Dyslipidemia associated with type 2 diabetes mellitus (HCC) Type II or unspecified type diabetes mellitus with other specified manifestations, not stated as uncontrolled 03/29/2023 Post-surgical hypothyroidism Postsurgical hypothyroidism 03/29/2023 Vitamin D deficiency Unspecified vitamin D deficiency 03/29/2023 Vitamin D deficiency Unspecified vitamin D deficiency 04/30/2023 Dyslipidemia associated with type 2 diabetes mellitus (HCC) Type II or unspecified type diabetes mellitus with other specified manifestations, not stated as uncontrolled 05/19/2023 Dyslipidemia associated with type 2 diabetes mellitus (HCC) Type II or unspecified type diabetes mellitus with other specified manifestations, not stated as uncontrolled 05/25/2023 Vitamin D deficiency Unspecified vitamin D deficiency 05/25/2023 Post-surgical hypothyroidism Postsurgical hypothyroidism 05/25/2023 Type 2 diabetes mellitus with hyperglycemia, with long-term current use of insulin (HCC) 05/25/2023 Dyslipidemia associated with type 2 diabetes mellitus (HCC) Type II or unspecified type diabetes mellitus with other specified manifestations, not stated as uncontrolled 06/07/2023 Vitamin D deficiency Unspecified vitamin D deficiency 06/07/2023 Post-surgical hypothyroidism Postsurgical hypothyroidism 06/07/2023 Follicular thyroid cancer (HCC) Malignant neoplasm of thyroid gland 06/07/2023 Type 2 diabetes mellitus with hyperglycemia, with long-term current use of insulin (HCC) 09/05/2023 Vitamin D deficiency Unspecified vitamin D deficiency 09/24/2023 Dyslipidemia associated with type 2 diabetes mellitus (HCC) Type II or unspecified type diabetes mellitus with other specified manifestations, not stated as uncontrolled 09/24/2023 Post-surgical hypothyroidism Postsurgical hypothyroidism 09/24/2023 Follicular thyroid cancer (HCC) Malignant neoplasm of thyroid gland 09/24/2023 Vitamin D deficiency Unspecified vitamin D deficiency 10/31/2023 Dyslipidemia associated with type 2 diabetes mellitus (HCC) Type II or unspecified type diabetes mellitus with other specified manifestations, not stated as uncontrolled 01/07/2024 Post-surgical hypothyroidism Postsurgical hypothyroidism 01/07/2024 Follicular thyroid cancer (HCC) Malignant neoplasm of thyroid gland 01/07/2024 Vitamin D deficiency Unspecified vitamin D deficiency 01/07/2024 Dyslipidemia associated with type 2 diabetes mellitus (HCC) Type II or unspecified type diabetes mellitus with other specified manifestations, not stated as uncontrolled 01/09/2024 Post-surgical hypothyroidism Postsurgical hypothyroidism 05/08/2024 Follicular thyroid cancer (HCC) Malignant neoplasm of thyroid gland 05/08/2024 Vitamin D deficiency Unspecified vitamin D deficiency 05/08/2024 Dyslipidemia associated with type 2 diabetes mellitus (HCC) Type II or unspecified type diabetes mellitus with other specified manifestations, not stated as uncontrolled 05/08/2024 Vitamin D deficiency Unspecified vitamin D deficiency 05/13/2024 Vitamin D deficiency Unspecified vitamin D deficiency 07/14/2024 Dyslipidemia associated with type 2 diabetes mellitus (HCC) Type II or unspecified type diabetes mellitus with other specified manifestations, not stated as uncontrolled 08/26/2024 Post-surgical hypothyroidism Postsurgical hypothyroidism 08/26/2024 Vitamin D deficiency Unspecified vitamin D deficiency 08/26/2024 Dyslipidemia associated with type 2 diabetes mellitus (HCC) Type II or unspecified type diabetes mellitus with other specified manifestations, not stated as uncontrolled 02/23/2025 Post-surgical hypothyroidism Postsurgical hypothyroidism 02/23/2025 Vitamin D deficiency Unspecified vitamin D deficiency 02/23/2025 Follicular thyroid cancer (HCC) Malignant neoplasm of thyroid gland 02/23/2025 Chest pain Chest pain, unspecified 01/01/2013 Diabetes mellitus type 2, uncontrolled Type II or unspecified type diabetes mellitus without mention of complication, uncontrolled 01/01/2013 Obesity Obesity, unspecified 01/01/2013 Hypertension Unspecified essential hypertension 01/01/2013 Headache(784.0) Headache 01/01/2013 Hyperlipidemia Other and unspecified hyperlipidemia 01/01/2013 Sleep apnea Unspecified sleep apnea 01/01/2013 Left sided numbness Disturbance of skin sensation 01/01/2013 Hypertensive urgency Unspecified essential hypertension 06/23/2013 Hypertension Unspecified essential hypertension 06/23/2013 Chest pain Chest pain, unspecified 06/23/2013 Hyperlipidemia Other and unspecified hyperlipidemia 06/23/2013 Headache(784.0) Headache 06/23/2013 Diabetes mellitus type 2, uncontrolled Type II or unspecified type diabetes mellitus without mention of complication, uncontrolled 06/23/2013 Fibromyalgia Mylagia and myositis, unspecified 06/23/2013 Facial droop Facial weakness 06/23/2013 Angina at rest Other and unspecified angina pectoris 06/23/2013 Uncontrolled type 2 diabetes mellitus with complication Type II or unspecified type diabetes mellitus with unspecified complication, uncontrolled 05/30/2017 CHF (congestive heart failure) ([facility]) Congestive heart failure, unspecified 05/30/2017 Fatty liver Other chronic nonalcoholic liver disease 05/30/2017 Morbid obesity with BMI of 40.0-44.9, adult ([facility]) 05/30/2017 Sleep apnea Unspecified sleep apnea 05/30/2017 Goals Goal Patient Goal Type Associated Problems [...] 11:14 AM EDT) No Jigna Dove LCSW Care Teams [employer] Relationship Specialty Start Date End Date Chris Serra MD [address] [address] Physician Internal Medicine-Cardiovascular Disease 01/16/13
--- OUTSIDE RECORDS SUMMARY | 2025-04-17 16:19 | XMS_ITS | Data Portability ---
Author Organization [place] [facility] [facility] [place] [facility] LESLIE Carranza ADMIN Address [address] [place] [id number] Assessment Encounter Date Assessment Date Assessment LastModified by Organization Details LastModified Time 09/20/2023 09/20/2023 63-year-old female with: 1) Dysphagia: Improved following empiric dilation. Continue PPI. Repeat EGD for dilation PRN. 2) Gastritis: She is symptomatic regarding this. Start Sucralfate QID x 4 weeks. Continue PPI. 3) History of colon polyps: Recommend repeat colonoscopy for surveillance 07/2028. [email or web address] Not available 09/20/2023 23:48:45 12/18/2023 12/18/2023 63-year-old female with: 1) Dysphagia: Improved following empiric dilation. Continue PPI. Repeat EGD for dilation PRN. 2) Gastritis: Continue sucralfate. Recommend she create a slurry with 10 mL water with each tablet due to difficulty with pill size. 3) History of colon polyps: Recommend repeat colonoscopy for surveillance 07/2028. 4) Elevated liver enzymes: Recent finding in mid October, resolved on repeat labs 11/02/23. This was in the setting of recent lower extremity procedure. Potentially due to shock liver. -Obtain lab workup per below. She will follow-up. 5) Diarrhea: Concern for possible C. diff due to recent antibiotic use. Will check stool PCR. Order for that sent to [facility] per patient request. f/u 2-3 weeks Not available 12/18/2023 20:29:06 01/17/2024 01/17/2024 63-year-old female with: 1) Dysphagia: Improved following empiric dilation. Continue PPI. Repeat EGD for dilation PRN. 2) Gastritis: Continue sucralfate. Recommend she create a slurry with 10 mL water with each tablet due to difficulty with pill size. 3) History of colon polyps: Recommend repeat colonoscopy for surveillance 07/2028. 4) Elevated liver enzymes: Recent finding in mid October, resolved on repeat labs 11/02/23. This was in the setting of recent lower extremity procedure. Potentially due to shock liver. Labs normalized. 5) Diarrhea: PCR revealed E. coli. Typically self-limiting, but patient has had symptoms since mid November. Will prescribe Cipro 500 mg b.i.d. x3 days. The patient reports she gets frequent yeast infections. Fluconazole prescription provided as well. The patient would like to f/u as needed Not available 01/18/2024 14:50:54 Plan of Treatment Reminders Order Date Submit Date Provider Last Modified By Organization Details Last Modified Time Details Appointments None recorded. Lab gastrointes tinal pathogens panel, PCR, stool 2023 024 acaldwell 64 [facility] (Lab), [address] [place], [place] [address]y [address], [place], [address], 4 09:38:47 CMP, serum or plasma 2023 024 DIANELYS [facility], [address], [address], [place], [address], 4 16:12:05 CBC 2023 024 acaldwell 64 [facility], [address], [address], [place], [address], 4 09:38:46 PT/INR 2023 024 acaldwell 64 [facility], [address], [address], [place], [address], 4 09:38:46 hepatitis panel (A+B+C), acute, serum 2023 024 DIANELYS [facility], [address], [address], [place], [address], 4 16:12:07 hepatitis B surface Ab, quantitativ e, serum 2023 024 [facility]AN[facility], [address], [address], [place], [address], 4 16:12:08 hepatitis A virus Ab, qualitative , immunoassay , serum 2023 024 [facility], [address], [address], [place], [address], 4 16:12:09 HFE gene mutation analysis, blood or tissue 2023 024 acaldwell 64 [facility], [address], [address], [place], [address], 4 09:38:46 autoimmune hepatitis diagnostic panel, serum 2023 024 [facility]AN[facility], [address], [address], [place], [address], 4 16:12:04 igg, quantitativ e, serum 2023 024 [facility]AN[facility], [address], [address], [place], [address], 4 16:12:10 alpha-1-ant itrypsin (aat) phenotype, serum 2023 024 acaldwell 64 [facility], [address], [address], [place], [address], 4 09:38:46 alpha-1-ant itrypsin (aat), QN, serum 2023 024 acaldwell 64 [facility], [address], [address], [place], [address], 4 09:38:47 Referral None recorded. Procedures None recorded. Surgeries None recorded. Imaging None recorded. Medication Orders Cipro 500 mg tablet 2023 024 [facility], [address] [place], [id number], 4 14:47:41 fluconazole 150 mg tablet 2023 024 [facility], [address] [place] [address] [place], [id number], 4 17:05:09 sucralfate 1 gram tablet [address] [facility], [address] [place] [address] [place], [id number], 4 13:54:36 sucralfate 1 gram tablet 2022 023 [facility], [address] [place] [address] [place], [id number], 3 09:52:18 Patient TargetsNo targets recorded. Patient InstructionsNo instructions recorded. Reason for Referral None Reported. Results Created Date Observation Date Name Description Value Unit Range Abnormal Flag Note LastModifiedBy Organization Detail LastModifiedTime 12/18/1912/19/2023 ROMA+A MA+ MA+LK M AB ROMA direct NEGATI VE negati ve Not Available [facility] ([facility]) [address] [place], [address], 12/31/2023 11:11:08 12/18/19 24 12/19/2023 ROMA+A MA+ MA+LK M AB actin (smooth muscle) antibody 7 units 0-19 Negat alan 0 - 19 Weak posit alan 20 - 30 Moder ate to stron g posit alan >30 Actin Antib odies are found in 52-85 % of patie nts with autoi mmune hepat itis or chron ic activ e hepat itis and in 22% of patie nts with prima ry bilia ry cirrh osis. Not Available [facility] ([facility]) [address] [place], [address], 12/31/2023 11:11:08 12/18/19 24 12/19/2023 ROMA+A MA+ MA+LK M AB mitochondria l (M2) antibody 21.2 units 0.0-20 .0 above high normal Negat alan 0.0 - 20.0 Equiv ocal 20.1 - 24.9 Posit alan >24.9 Mitoc hondr ial (M2) Antib odies are found in 90-96 % of patie nts with prima ry bilia ry cirrh osis. Not Available [facility] ([facility]) [address] [place], [address], 12/31/2023 11:11:08 12/18/19 24 12/19/2023 ROMA+A MA+ MA+LK M AB liver-kidney microsomal Ab 1.4 units 0.0-20 .0 Negat alan 0.0 - 20.0 Equiv ocal 20.1 - 24.9 Posit alan >24.9 LKM type 1 antib odies are detec suman in patie nts with autoi mmune hepat itis type 2 and in up to 8% of patie nts with chron ic HCV infec tion. Not Available [facility] ([facility]) [address] [place], [address], 12/31/2023 11:11:08 12/18/19 24 12/19/2023 COMP. METAB OLIC PANEL (14) glucose 144 mg/dL 70-99 above high normal Not Available [facility] ([facility]) [address] [place], [address], 12/31/2023 11:11:09 12/18/19 24 12/19/2023 COMP. METAB OLIC PANEL (14) BUN 17 mg/dL 8-27 Not Available [facility] ([facility]) [address] [place], [address], 12/31/2023 11:11:09 12/18/19 24 12/19/2023 COMP. METAB OLIC PANEL (14) creatinine 0.78 mg/dL 0.57-1 .00 Not Available [facility] ([facility]) [address], [place], [address], 12/31/2023 11:11:09 12/18/19 24 12/19/2023 COMP. METAB OLIC PANEL (14) eGFR 86 mL/mi n/1.7 3 >59 Not Available [facility] ([facility]) [address], [place], [address], 12/31/2023 11:11:09 12/18/19 24 12/19/2023 COMP. METAB OLIC PANEL (14) BUN/creatini ne ratio 22 12-28 Not Available [facility] ([facility]) [address], [place], [address], 12/31/2023 11:11:09 12/18/19 24 12/19/2023 COMP. METAB OLIC PANEL (14) sodium 141 mmol/ L 134-14 4 Not Available [facility] ([facility]) [address], [place], [address], 12/31/2023 11:11:09 12/18/19 24 12/19/2023 COMP. METAB OLIC PANEL (14) potassium 4.0 mmol/ L 3.5-5. 2 Not Available [facility] ([email or web address]) [address] [facility], [place], [address], 12/31/2023 11:11:09 12/18/19 24 12/19/2023 COMP. METAB OLIC PANEL (14) chloride 104 mmol/ L 96-106 Not Available [facility] ([facility]) [address] [facility], [place], [address], 12/31/2023 11:11:09 12/18/19 24 12/19/2023 COMP. METAB OLIC PANEL (14) carbon dioxide, total 23 mmol/ L 20-29 Not Available [facility] ([facility]) [address] [facility], [place], [address], 12/31/2023 11:11:09 12/18/19 24 12/19/2023 COMP. METAB OLIC PANEL (14) calcium 8.9 mg/dL 8.7-10 .3 Not Available [facility] ([facility]) [address] [facility], [place], [address], 12/31/2023 11:11:09 12/18/19 24 12/19/2023 COMP. METAB OLIC PANEL (14) protein, total 7.3 g/dL 6.0-8. 5 Not Available [facility] ([facility]) [address] [facility], [place], [address], 12/31/2023 11:11:09 12/18/19 24 12/19/2023 COMP. METAB OLIC PANEL (14) albumin 4.1 g/dL 3.9-4. 9 Not Available [facility] ([facility]) [address] [facility], [place], [address], 12/31/2023 11:11:09 12/18/19 24 12/19/2023 COMP. METAB OLIC PANEL (14) globulin, total 3.2 g/dL 1.5-4. 5 Not Available [facility] ([facility]) [address] [facility], [place], [address], 12/31/2023 11:11:09 12/18/19 24 12/19/2023 COMP. METAB OLIC PANEL (14) A/G ratio 1.3 1.2-2. 2 Not Available [facility] ([facility]) [address] [facility], [place], [address], 12/31/2023 11:11:09 12/18/19 24 12/19/2023 COMP. METAB OLIC PANEL (14) bilirubin, total 0.2 mg/dL 0.0-1. 2 Not Available [facility] ([facility]) [address] [facility], [place], [address], 12/31/2023 11:11:09 12/18/19 24 12/19/2023 COMP. METAB OLIC PANEL (14) alkaline phosphatase 120 IU/L 44-121 Not Available [facility] ([facility]) [address] [place], [address], 12/31/2023 11:11:09 12/18/19 24 12/19/2023 COMP. METAB OLIC PANEL (14) AST (SGOT) 12 IU/L 0-40 Not Available [facility] ([facility]) [address] [place], [address], 12/31/2023 11:11:09 12/18/19 24 12/19/2023 COMP. METAB OLIC PANEL (14) ALT (SGPT) 9 IU/L 0-32 Not Available [facility] ([facility]) [address] [place], [address], 12/31/2023 11:11:09 12/18/19 24 12/19/2023 ACUTE HEPAT ITIS hep A Ab, IgM NEGATI VE negati ve Not Available [facility] ([facility]) [address] [place], [address], 12/24/2023 16:12:07 12/18/19 24 12/19/2023 ACUTE HEPAT ITIS HBsAg screen NEGATI VE negati ve Not Available [facility] ([facility]) [address] [place], [address], 12/24/2023 16:12:07 12/18/19 24 12/19/2023 ACUTE HEPAT ITIS hep B core Ab, IgM NEGATI VE negati ve Not Available [facility] ([facility]) [address] [place], [address], 12/24/2023 16:12:07 12/18/19 24 12/19/2023 ACUTE HEPAT ITIS HCV Ab NON REACTI VE non reacti ve Not Available [facility] ([facility]) [address] [facility] [place], [address], 12/24/2023 16:12:07 12/18/19 24 12/19/2023 ACUTE HEPAT ITIS interpretati on: COMMEN T Not infec suman with HCV unles s early or acute infec tion is suspe cted (whic h may be delay ed in an immun ocomp romis ed indiv idual ), or other evide nce exist s to indic ate HCV infec tion. Not Available [facility] ([facility]) [address] [facility], [place], [address], 12/24/2023 16:12:07 12/18/19 24 12/18/2023 PSA TOTAL (REFL EX TO FREE) reflex criteria Commen t not estab. Not Available [facility] ([facility]) [address] [facility], [place], [address], 12/24/2023 16:12:08 12/18/19 24 12/19/2023 PSA TOTAL (REFL EX TO FREE) prostate specific Ag <0.1 NG/mL not estab. Jenna ECLIA metho dolog y. Accor ding to the Ameri can Urolo gical Assoc iatio n, Serum PSA shoul d decre ase and remai n at undet ectab le level s after radic al prost atect irina. The AUA defin es bioch emica l recur rence as an initi al PSA value 0.2 ng/mL or great er follo wed by a subse quent confi rmato ry PSA value 0.2 ng/mL or great er. Value s obtai meg with diffe rent assay metho ds or kits canno t be used inter cheney eably . Resul ts canno t be inter prete d as absol kush evide nce of the prese nce or absen ce of ollie garcia disefatou se. Not Available [facility] ([facility]) [address] [facility], [place], [address], 12/24/2023 16:12:08 12/18/19 24 12/19/2023 HEPAT ITIS B SURF AB QUANT hepatitis B surf Ab quant <3.1 mIU/m L immuni ty>9.9 below low normal Statu s of Immun ity Anti- HBs Level ----- ----- ----- --- ----- ----- ---- Incon siste nt with Immun ity 0.0 - 9.9 Consi stent with Immun ity >9.9 Not Available [facility] ([facility]) [address] [facility], [place], [address], 12/24/2023 16:12:08 12/18/19 24 12/19/2023 HEP A AB, TOTAL hep A Ab, total NEGATI VE negati ve Comme nt: The HAV total antib ricardo assay detec ts both IgG and IgM but does not diffe renti ate betwe en them. A negat alan resul t sugge sts susce ptibi lity to infec tion. A posit alan resul t could be due to vacci natio n, previ ously resol dickson infec tion or activ e infec tion. Testi ng for HAV IgM shoul d be perfo rmed if activ e HAV infec tion is suspe cted. [facility] offer s profi les that will autom atica lly refle x posit alan HAV total antib ricardo resul ts to IgM (e.g. , panel #[id number] HAV Antib ricardo w/ Rfx). Not Available [facility] ([facility]) [address] [facility], [place], [address], 12/24/2023 16:12:09 12/18/19 24 12/19/2023 IMMUN OGLOB ULIN G, QN, SERUM immunoglobul in g, qn, serum 1312 mg/dL 586-16 02 Not Available [facility] ([facility]) [address] [facility], [place], [address], 12/31/2023 11:11:16 12/18/19 24 12/19/2023 CBC, PLATE LET, NO DIFFE RENTI AL WBC 7.9 x10e3 /uL 3.4-10 .8 Not Available [facility] ([facility]) [address] [facility], [place], [address], 12/31/2023 11:11:10 12/18/19 24 12/19/2023 CBC, PLATE LET, NO DIFFE RENTI AL RBC 4.53 x10e6 /uL 3.77-5 .28 Not Available [facility] ([facility]) [address] [facility], [place], [address], 12/31/2023 11:11:10 12/18/1912/19/2023 CBC, PLATE LET, NO DIFFE RENTI AL hemoglobin 11.7 g/dL 11.1-1 5.9 Not Available [facility] ([facility]) [address] [facility], [place], [address], 12/31/2023 11:11:10 12/18/19 24 12/19/2023 CBC, PLATE LET, NO DIFFE RENTI AL hematocrit 37.2 % 34.0-4 6.6 Not Available [facility] ([facility]) [address] [facility], [place], [address], 12/31/2023 11:11:10 12/18/19 24 12/19/2023 CBC, PLATE LET, NO DIFFE RENTI AL MCV 82 fL 79-97 Not Available [facility] ([facility]) [address] [facility], [place], [address], 12/31/2023 11:11:10 12/18/19 24 12/19/2023 CBC, PLATE LET, NO DIFFE RENTI AL MCH 25.8 pg 26.6-3 3.0 below low normal Not Available [facility] ([facility]) [address] [facility], [place], [address], 12/31/2023 11:11:10 12/18/19 24 12/19/2023 CBC, PLATE LET, NO DIFFE RENTI AL MCHC 31.5 g/dL 31.5-3 5.7 Not Available [facility] ([facility]) [address] [facility], [place], [address], 12/31/2023 11:11:10 12/18/19 24 12/19/2023 CBC, PLATE LET, NO DIFFE RENTI AL RDW 14.5 % 11.7-1 5.4 Not Available [facility] ([facility]) [address] [facility], [place], [address], 12/31/2023 11:11:10 12/18/19 24 12/19/2023 CBC, PLATE LET, NO DIFFE RENTI AL platelets 226 x10e3 /uL 150-45 0 Not Available [facility] ([facility]) [address] [facility], [place], [address], 12/31/2023 11:11:10 12/18/1912/19/2023 CBC, PLATE LET, NO DIFFE RENTI AL NRBC APPLICATION LEAD Not Available [facility] ([facility]) [address] [facility], [place], [address], 12/31/2023 11:11:10 12/18/1912/19/2023 PROTH ROMBI N TIME (PT), SERIA L INR 0.9 0.9-1. 2 Refer ence inter maxine is for non-a ntico agula suman patie nts. Sugge sted INR thera peuti c range for Vitam in K antag onist thera py: Stand rufino Dose (mode rate inten sity thera peuti c range ): 2.0 - 3.0 Highe r inten sity thera peuti c range 2.5 - 3.5 Not Available [facility] ([facility]) [address] [facility], [place], [address], 12/31/2023 11:11:12 12/18/1912/19/2023 PROTH ROMBI N TIME (PT), SERIA L prothrombin time 10.2 sec 9.1-12 .0 Not Available [facility] ([facility]) [address], [place], [address], 12/31/2023 11:11:12 12/18/19 24 12/19/2023 PROTH ARNULFO N TIME (PT), RUSSELLRAFFI L pdf . Not Available [facility] ([facility]) [address], [place], [address], 12/31/2023 11:11:12 12/18/19 24 12/18/2023 ALPHA -1-AN TITRY PSIN DEFIC IENCY additional information: COMMEN T Addit ional Clini jitendra Infor matio n: Alpha -1 antit rypsi n defic iency is an autos omal reces sive metab olic disor mary with varia ble sever ity and age at onset . Signs and sympt oms may inclu de incre ased risk for chron ic obstr uctiv e lung disea se that typic ally manif ests after age 30, liver disea se, and liver cance r. Liver disea se can be prese nt in infan cy as neona lacey ayesha stasi s (joe dice) or in adult tong as cirrh osis and fibro sis. Lung and liver disea se may be accel erate d by envir onmen lacey expos ures such as smoki ng and exces sive alcoh ol use. Estab lishe d treat ments for COPD and emphy sema are used to treat lung disea se; lung and/o r liver trans plant ation may be an optio n for those with with sever e disea se. Intra venou s augme ntati on thera py may be avail able for patie nts who meet crite casandra. Comme nts: The ZZ and SZ genot ypes accou nt for more than 95% of indiv idual s with sever e alpha -1 antit rypsi n defic iency . To rule out other varia nts, furth er testi ng of sympt omati c indiv idual s heter ozygo us for one varia nt (S or Z) or with negat alan resul ts may inclu de pheno typin g (PI typin g), AAT level testi ng, and/o r expan ded genot yping . Tavia ic couns mitul is recom therese d to discu ss the poten tial clini jitendra impli catio ns of posit alan resul ts, as well as recom menda tions for testi ng famil y membe rs. Tavia ic Coord inato rs are avail able for healt h care provi ders to discu ss resul ts at [phone] GENE (4363 ). Test Detai ls: Two varia nts homero zed: c.109 6 G>A (p.Gl u366L ys), commo nly refer red to as the Z allel e or PI*Z c.863 A>T (p.Gl u288V al), commo nly refer red to as the S allel e or PI*S Metho ds/Li mitat ions: DNA homero sis of the S and Z allel es in the SERPI NA1 gene (NM_[id number] .[id number]) was perfo rmed by multi plex allel e-spe cific PCR ampli ficat ion follo wed by gel elect ropho resis . Resul ts must be combi meg with clini jitendra infor matio n for the most accur ate inter preta tion. Molec ular- based testi ng is highl y accur ate, but as in any labor atory test, rare diagn ostic error s may occur . False posit alan or false negat alan resul ts may occur for reaso ns that inclu de tavia ic varia nts, blood trans fusio ns, bone marro w trans plant ation , somat ic or tissu e-spe cific mosai cism, misla beled sampl es, or simona eous repre senta tion of famil y relat ionsh ips. This test was devel oped and its perfo rmanc e sulema cteri stics deter mined by [employer]. It has not been clear ed or appro dickson by the Food and Drug Admin istra tion. Refer ences : Rui flores RA, Asa humphrey G, Frederick lai ML, Mariano preston M, Tom CE, Jluián myers K, Roni dominguez DK, Marco caabn SL, Ellyn s JM, Jhoana BOOGIE, Anish eden C, Alvin myers J. The Diagn osis and Manag ement of Alpha -1 Antit rypsi n Defic iency in the Adult . Chron ic Obstr Pulm Dis. 2016 Mar 13;3(3 ):668 -682. doi: 10.15 326/j copdf ... 2014. 0182. PMID: 19625 891; PMCID : PMC55 32279 . Jhoana BOOGIE, Jo-Ann ojeda V, Gallo DOMINGUEZ. Alpha -1 Antit rypsi n Defic iency . 2005Aug 03 [Upda suman 2019February 25]. In: Roger MP, Nikki martinez HH, Roge RA, et al., hemanth oscar. Amaury preston(R) [Inte rnet] . Maria T benitez ([place]): [facility] T Francois; 1992- 2020. Avail able from: https :[email or web address] gutierrez.ncb i.nlm .nih. gov/b ooks/ [email or web address] 19/ Not Available [facility] ([facility]) [address] [facility], [place], [address], 12/31/2023 11:11:13 12/18/1912/31/2023 ALPHA -1-AN TITRY PSIN DEFIC IENCY aat, DNA analysis COMMEN T Resul t: c.109 6 G>A (p.Gl u366L ys), Z allel e - Not detec suman c.863 A>T (p.Gl u288V al), S allel e - Not detec suman Not assoc iated with incre ased risk of devel oping clini marcell relev ant sympt oms of alpha -1 antit rypsi n defic iency . See Addit ional Clini jitendra Infor matio n and Comme nts. Not Available [facility] ([facility]) [address] [facility], [place], [address], 12/31/2023 11:11:13 12/18/1912/31/2023 ALPHA -1-AN TITRY PSIN DEFIC IENCY electronical ly signed by: SU shaffer, PhD [facility], Molec ular Tavia ics Not Available [facility] ([facility]) [address], [place], [address], 12/31/2023 11:11:13 12/18/19 24 12/31/2023 HERED .HEMO CHROM ATOSI S, DNA hereditary hemochromato sis COMMEN Anabella Rendon t: c.845 G>A (p.Cy s282T yr) - Detec suman, heter ozygo us c.187 C>G (p.Hi s63As p) - Not Detec suman c.193 A>T (p.Se r65Cy s) - Not Detec suman Not assoc iated with incre ased risk to devel op clini jitendra sympt oms of Hered itary Hemoc hroma tosis . In sympt omati c indiv idual s, other cause s of iron overl oad shoul d be evalu ated. See Addit ional Infor matio n and Comme nts. Addit ional Clini jitendra Infor matio n: Hered itary hemoc hroma tosis (HFE relat ed) is an autos omal reces sive iron stora ge disor mary. Patie nts may have a tavia ic diagn osis of hered itary hemoc hroma tosis and never show clini jitendra sympt oms. Clini jitendra sympt oms typic ally appea r betwe en 40 to 60 years in males and after menop ause in femal es. Signs and sympt oms may inclu de organ damag e, prima rily in the liver , risk for hepat ocell ular carci noma, diabe elana, and heart disea se due to iron accum ulati on. Life expec tancy may be decre ased in indiv idual s who devel op cirrh osis. Treat ment for clini marcell sympt omati c indiv idual s may inclu de thera peuti c phleb otomy . Liver trans plant may be used to treat end stage liver failu re. For preve ntive care, monit oring for iron overl oad is recom therese d for patie nts who are homoz ygous for c.845 G>A (p.Cy s282T yr) and have yet to exper ience clini jitendra sympt oms. Comme nts: The most commo n HFE varia nts assoc iated with hered itary hemoc hroma tosis are c.845 G>A (p.Cy s282T yr), c.187 C>G (p.Hi s63As p), c.193 A>T (p.Se r65Cy s). While patie nts homoz ygous for c.845 G>A (p.Cy s282T yr) are the most likel y to prese nt clini jitendra sympt oms, less than 10% devel op clini marcell signi fican t iron overl oad with tissu e and organ damag e. Tavia ic couns mitul is recom therese d to discu ss the poten tial clini jitendra impli catio ns of posit alan resul ts, as well as recom menda tions for testi ng famil y membe rs. Tavia ic Coord inato rs are avail able for healt h care provi ders to discu ss resul ts at [phone] GENE (1123 ). Test Detai ls: Three varia nts homero zed: c.845 G>A (p.Cy s282T yr), commo nly refer red to as C282Y c.187 C>G (p.Hi s63As p), commo nly refer red to as H63D c.193 A>T (p.Se r65Cy s), commo nly refer red to as S65C Metho ds/Li mitat ions: DNA Homero sis of the HFE gene ([id number] .[id number]) was perfo rmed by PCR ampli ficat ion follo wed by restr ictio n enzym e diges tion homero ses. Resul ts must be combi meg with clini jitendra infor matio n for the most accur ate inter preta tion. Molec ular- based testi ng is highl y accur ate, but as in any labor atory test, diagn ostic error s may occur . False posit alan or false negat alan resul ts may occur for reaso ns that inclu de tavia ic varia nts, blood trans fusio ns, bone marro w trans plant ation , somat ic or tissu e-spe cific mosai cism, misla beled sampl es, or simona eous repre senta tion of famil y relat ionsh ips. This test was devel oped and its perfo rmanc e sulema cteri stics deter mined by [facility] . It has not been clear ed or appro dickson by the Food and Drug Admin istra tion. Refer ences : John Paul BR, Samuel PC, [place], Vashti robles LW, Macy robles ; Ameri can Assoc iatio n for the Study of Liver Disea ses. Diagn osis and manag ement of hemoc hroma tosis : 2010 pract ice guide line by the Ameri can Assoc iatio n for the Study of Liver Disea ses. Hepat ology . 2010;5 4(1): 328-4 3. doi: 10.10 02/he p.243 30. PMID: 23419 290; PMCID : PMC31 26673 . Rajesh G, Malvin ot P, Neel garcia DW, Kimi r H, Claude knightn O, Eddi n S, Missy o I, Niles s M, Andrew y S. EMQN best pract ice guide lines for the molec ular tavia ic diagn osis of hered itary hemoc hroma tosis (HH). Eur J Hum Tavia . 2016 Jan;2 4(4): 479-9 5. doi: 10.10 /ej hg.20 15.12 8. Epub 2014Apr 14. PMID: 09394 218; PMCID : PMC49 96121 . Not Available [facility] [address], [place], [address], 12/31/2023 11:11:14 12/18/19 24 12/31/2023 HERED .HEMO CHROM ATOSI S, DNA reviewed by: SU [employer] Techn ical [place] perfo rmed at Lab[facility] rp RTP Profe ssion al [place] perfo rmed by: Kee Michael nt, Ph.D. , [facility], [facility] ics [address] [facility] [address] Not Available [facility] ([facility]) [address] [facility], [place], [address], 12/31/2023 11:11:14 Result Notes None recorded. Problems Name Problem SNOMED Code Status Onset Date Resolution Date Notes Provider Name and Address Organization Details Recorded Time Gastritis 1694959 Active 023 Loyd Means PA-C [address], [place], [address] , [place] [facility] - [place] & [place] 3 09:49:41 Chronic erosive gastritis 14062174 Active 023 Loyd Means PA-C [address], [place], [address] , [place] [facility] [place] [facility] [place] 3 09:49:48 Dysphagia 25662553 Active 023 Loyd Means PA-C [address], [place], [address] , [place] [facility] [place] 3 23:48:15 Liver enzymes level above reference range 094959391 Active 024 Loyd Means PA-C [address], [place], [address] , [place] [facility] [place] 4 13:52:04 Diarrhea 78219830 Active 024 Loyd Means PA-C [address] [facility], [place], [address] , [place] [facility] [place] 4 20:20:26 Problem Notes None recorded. Medical Equipment None Reported. Allergies Allergen ID Allergen Name Allergen Category Reaction Reaction Severity Criticality Documentation Date Start Date Code Code System Note Provider Name and Address Organization Details Recorded Time 707045 Actos medicatio n Not available Not available Not available 01/17/2024 86274 2 RxNorm Rui godfrey, [facility] & [place] 4 15:59:46 002093 Substance with sulfonami de structure and antibacte rial mechanism of action (substanc e) medicatio n Not available Not available Not available 01/17/2024 66040 8003 SNOMED Rui godfrey [facility] & [place] 4 15:59:56 978296 metformin medicatio n Not available Not available Not available 01/17/2024 6809 RxNorm Rui godfrey [facility] & [place] 4 16:00:11 862080 gabapenti n medicatio n Not available Not available Not available 01/17/2024 11084 RxNorm Rui godfrey [facility] & [place] 4 16:00:20 Medications Name Sig Start Date Stop Date Status Note LastModified by Organization Details LastModified Time Miralax 17 gram oral powder packet Take 5 packets 3 times a day by oral route as directed for 1 day. 2022 active Not Available Not Available Not Avai lable losartan 50 mg tablet TAKE 1 TABLET BY MOUTH EVERY DAY active Not Available Not Available No t Available levothyroxin e 175 mcg tablet active Not Available Not Available Not Available promethazine -DM 6.25 mg-15 mg/5 mL oral syrup active Not Available Not Available Not Available levothyroxin e 137 mcg tablet active Not Available Not Available Not Available nystatin 100,000 unit/mL oral suspension active Not Available Not Available N ot Available venlafaxine ER 75 mg capsule,exte nded release 24 hr active Not Available Not Available Not Available citalopram 40 mg tablet active Not Available Not Available Not Available divalproex 250 mg tablet,delay ed release TAKE ONE (1) TABLET BY MOUTH TWICE DAILY FOR ONE WEEK THEN TAKE TWO (2) TABLETS BY MOUTH TWICE DAILY THEREAFTER active Not Available Not Available N ot Available oxybutynin chloride ER 10 mg tablet,exten ded release 24 hr active Not Available Not Available Not Available azithromycin 250 mg tablet TAKE TWO (2) TABLETS BY ORAL ROUTE ONCE DAILY FOR ONE (1) DAY THEN ONE (1) TABLET (250 MG) BY ORAL ROUTE ONCE DAILY FOR FOUR (4) DAYS active Not Available Not Available No t Available tizanidine 4 mg tablet TAKE 1 TABLET BY MOUTH EVERY SIX (6) HOURS active Not Available Not Available No t Available fluconazole 150 mg tablet Take 1 tablet every day by oral route for 2 days. active Not Available Not Available No t Available metoprolol succinate ER 50 mg tablet,exten ded release 24 hr active Not Available Not Available Not Available sumatriptan 100 mg tablet TAKE ONE (1) TAB AT ONSET OF HEADACHE, CAN REPEAT IN TWO (2) HRS PRN. NO MORE THAN TWO (2) TABS IN 24 HRS active Not Available Not Available No t Available meloxicam 15 mg tablet active Not Available Not Available No t Available sucralfate 1 gram tablet Take 1 tablet 4 times daily on an empty stomach, at least 1 hour before meals and at bedtime, 30 days active Not Available Not Available No t Available prednisone 20 mg tablet TAKE 1 TABLET BY MOUTH TWICE DAILY active Not Available Not Available No t Available isosorbide mononitrate ER 30 mg tablet,exten ded release 24 hr active Not Available Not Available Not Available venlafaxine ER 150 mg capsule,exte nded release 24 hr active Not Available Not Available Not Available ketorolac 10 mg tablet active Not Available Not Available No t Available ofloxacin 0.3 % ear drops active Not Available Not Available Not Available citalopram 20 mg tablet active Not Available Not Available Not Available pantoprazole 40 mg tablet,delay ed release active Not Available Not Available N ot Available esomeprazole magnesium 40 mg capsule,roscoe yed release active Not Available Not Available Not Available levothyroxin e 125 mcg tablet active Not Available Not Available Not Available Cipro 500 mg tablet Take 1 tablet every 12 hours by oral route for 3 days. 2023 active Not Available Not Available Not Avai lable glimepiride 4 mg tablet active Not Available Not Available Not Available levothyroxin e 150 mcg tablet active Not Available Not Available Not Available gabapentin 300 mg capsule active Not Available Not Available Not Available montelukast 10 mg tablet TAKE ONE (1) TABLET BY MOUTH EACH EVENING active Not Available Not Available No t Available levothyroxin e 200 mcg tablet active Not Available Not Available Not Available metoprolol succinate ER 25 mg tablet,exten ded release 24 hr TAKE 1 TABLET BY MOUTH EVERY DAY active Not Available Not Available No t Available ergocalcifer ol (vitamin D2) 1,250 mcg (50,000 unit) capsule active Not Available Not Available Not Available Zaditor 0.025 % (0.035 %) eye drops INSTILL ONE (1) DROP INTO BOTH EYES TWICE A DAY NEEDED active Not Available Not Available No t Available azelastine 137 mcg (0.1 %) nasal spray TWO (2) SPRAY INTO BOTH NOSTRILS TWICE A DAY NEEDED active Not Available Not Available No t Available polyethylene glycol 3350 17 gram/dose oral powder active Not Available Not Available Not Available estradiol 0.01% (0.1 mg/gram) vaginal cream active Not Available Not Available Not Available levofloxacin 750 mg tablet active Not Available Not Available Not Available scopolamine 1 mg over 3 days transdermal patch active Not Available Not Available Not Available ondansetron 4 mg disintegrati ng tablet active Not Available Not Available No t Available fluticasone propionate 50 mcg/actuatio n nasal spray,suspen raquel SPRAY TWO (2) SPRAYS BY INTRANASAL ROUTE DAILY ADMINISTER INTO EACH NOSTRIL active Not Available Not Available No t Available doxycycline hyclate 100 mg tablet active Not Available Not Available No t Available oxycodone 5 mg tablet active Not Available Not Available No t Available nitrofuranto in monohydrate/ macrocrystal s 100 mg capsule active Not Available Not Available Not Available lactulose 10 gram/15 mL oral solution active Not Available Not Available Not Available Flovent HFA 44 mcg/actuatio n aerosol inhaler INHALE TWO (2) PUFF USING INHALER TWICE A DAY active Not Available Not Available Not Available Flovent HFA 110 mcg/actuatio n aerosol inhaler active Not Available Not Available Not Available levocetirizi ne 5 mg tablet TAKE ONE (1) TABLET BY MOUTH ONCE A DAY active Not Available Not Available N ot Available oxycodone 10 mg tablet active Not Available Not Available No t Available Trulicity 1.5 mg/0.5 mL subcutaneous pen injector active Not Available Not Available Not Available Arnuity Ellipta 100 mcg/actuatio n powder for inhalation active Not Available Not Available N ot Available Praluent Pen 75 mg/mL subcutaneous pen injector active Not Available Not Available Not Available Repatha SureClick 140 mg/mL subcutaneous pen injector active Not Available Not Available Not Available Tresiba FlexTouch U-100 insulin 100 unit/mL (3 mL) subcutaneous pen active Not Available Not Available Not Available Nurtec ODT 75 mg disintegrati ng tablet active Not Available Not Available No t Available Trulicity 3 mg/0.5 mL subcutaneous pen injector active Not Available Not Available Not Available Paxlovid 300 mg (150 mg x 2)-100 mg tablets in a dose pack active Not Available Not Available No t Available Vitals Date Recorded Body height Body mass index (BMI) Body weight Body temperature Heart rate Heart rate Oxygen saturation Oxygen saturation in Arterial blood by Pulse oximetry Systolic And Diastolic Provider Name and Address Organization Details Last Updated DateTime 4 162.56 cm 35.5 kg/m2 23576.9 g 98.1 [degF] 77 /min 76 /min 97 % 97 % 135/85 mm[Hg] Caitlin Moses [facility] & [place] 4 13:53:57 Date Recorded Body height Body mass index (BMI) Body weight Body temperature Oxygen saturation Oxygen saturation in Arterial blood by Pulse oximetry Heart rate Heart rate Systolic And Diastolic Provider Name and Address Organization Details Last Updated DateTime 4 162.56 cm 35.5 kg/m2 03000.9 g 98.3 [degF] 98 % 98 % 69 /min 70 /min 160/84 mm[Hg] Rui Johns REANNA [facility] & [place] 4 15:57:51 Date Recorded Body weight Body mass index (BMI) Body height Body temperature Oxygen saturation Oxygen saturation in Arterial blood by Pulse oximetry Heart rate Heart rate Systolic And Diastolic Provider Name and Address Organization Details Last Updated DateTime 3 86126.2 6 g 35.5 kg/m2 162.56 cm 97.9 [degF] 97 % 97 % 60 /min 62 /min 170/82 mm[Hg] Caitlin Moses [facility] & [place] 3 09:11:43 Social History Question Answer Notes LastModified by Organizat ion Details LastModified Time Tobacco Smoking Status Never Smoker Rui Johns [facility] & [place] 01/17/2024 16:00:57 What Is Your Level Of Caffeine Consumption? Moderate [email or web address] Information not available 01/17/2024 Sex: Unknown Functional Status Question Answer Note LastModified by Organizat ion Details LastModified Time Do you use any illicit or recreational drugs? No [email or web address] Information not available 01/17/2024 What is your level of alcohol consumption? None [email or web address] Information not available 01/17/2024 Mental Status None recorded. Family History Nothing Reported. Medical History No medical history recorded. Gynecological HistoryNo gynecological history recorded. Obstetrics History GPAL:G 0 P 0 0 0 0 Past Encounters Encounter ID Performer Location Encounter Start Date Encounter Closed Date Diagnosis/Indication Diagnosis SNOMED-CT Code Diagnosis ICD10 Code Diagnosis Note [id number] Loyd Means PA-C [facility] [place] [address] 2 09/20/2023 08:52:49 09/20/2023 09:51:59 Chronic erosive gastritis 19283647 K29.60 History of polyp of colon 688424384 Z86.010 Dysphagia 02274443 R13.1 0 [id number] Loyd Means PA-C [facility] [place] [address] 2 12/18/2023 13:37:26 12/18/2023 14:29:24 Chronic erosive gastritis 25972467 K29.60 History of polyp of colon 825214457 Z86.010 Dysphagia 58608849 R13.1 0 Liver enzy mes level above reference range 353876740 R74.01 Diarrhea 46078564 R19.7 [id number] Gerardo Sutton MD [facility] [place] [address] 2 01/17/2024 14:47:40 01/17/2024 16:30:22 Chronic erosive gastritis 67011305 K29.60 History of polyp of colon 552977065 Z86.010 Dysphagia 10855049 R13.1 0 Liver enzy mes level above reference range 132626614 R74.01 Diarrhea 83661306 R19.7 Yeast detected 815747147 R89.5 Health Concerns Section Related Observation LastModified by Organization Detai ls LastModified Time None Recorded Concern Status LastModified by Organization Details LastModified Time None Recorded Advance Directives Directive None Recorded Payers Insurance Date Sequence Insurance Name Policy Number Policy Jacobsen Covered Member ID Jacobsen Member ID Guarantor Name 01/21/2024 1 [employer] (MEDICARE REPLACEMENT/ ADVANTAGE - PPO) [id number] [place] Machado [id number] Angeles Machado 01/14/2024 2 [facility]TRADITIO NAL [place] Machado [id number] Angeles Machado Notes Date Note Type Note Provider Name and Address Organization Details Recorded Time 09/20/2023 text/html Ms. Machado is a v leonora pleasant 63-year-old female who presents to the office today for procedure follow-up. She underwent EGD and screening colonoscopy on 08/07 in evaluation of dysphagia. Esophagus appeared normal with diffuse erythema seen in the stomach. Empiric dilation was performed. She feels this has improved her swallowing. Currently, she complains of indigestion and occasional bloating. She has continued Nexium 40 mg p.o. daily. She denies heartburn. Loyd Means PA-C [address] [facility], [place], [address], [facility] 09/20/2023 23:49:08 12/18/2023 text/html PREVIOUS (09/20/24): Ms. Machado is a very pleasant 63-year-old female who presents to the office today for procedure follow-up. She underwent EGD and screening colonoscopy on 08/07 in evaluation of dysphagia. Esophagus appeared normal with diffuse erythema seen in the stomach. Empiric dilation was performed. She feels this has improved her swallowing. Currently, she complains of indigestion and occasional bloating. She has continued Nexium 40 mg p.o. daily. She denies heartburn. CURRENT (12/18/23): Ms. Machado presents to the office today at the request of Mercy Guevara APRN for evaluation of recently identified transaminitis. She was found to have a mildly elevated AST/ALT in mid October on subsequent lab draws with ALP >300. Labs were repeated on 11/02 and showed normal findings. She also follows with us regarding dysphagia and gastritis. She still has some indigestion and borborygmi but is feeling improved overall. She also has had diarrhea and foul smelling stools for the past 2 weeks. She has been taking multiple antibiotics due to recently diagnosed foot ulcer with superimposed bacterial infection. Loyd Means PA-C [address], [place], [address], [facility] [place] & [place] 12/18/2023 20:29:23 01/17/2024 text/html PREVIOUS (09/20/24): Ms. Machado is a very pleasant 63-year-old female who presents to the office today for procedure follow-up. She underwent EGD and screening colonoscopy on 08/07 in evaluation of dysphagia. Esophagus appeared normal with diffuse erythema seen in the stomach. Empiric dilation was performed. She feels this has improved her swallowing. Currently, she complains of indigestion and occasional bloating. She has continued Nexium 40 mg p.o. daily. She denies heartburn. PREVIOUS (12/18/23): Ms. Machado presents to the office today at the request of Mercy Guevara APRN for evaluation of recently identified transaminitis. She was found to have a mildly elevated AST/ALT in mid October on subsequent lab draws with ALP >300. Labs were repeated on 11/02 and showed normal findings. She also follows with us regarding dysphagia and gastritis. She still has some indigestion and borborygmi but is feeling improved overall. She also has had diarrhea and foul smelling stools for the past 2 weeks. She has been taking multiple antibiotics due to recently diagnosed foot ulcer with superimposed bacterial infection. CURRENT (01/17/24): Ms. Machado presents to the clinic today for follow-up regarding transaminitis, indigestion, and diarrhea. Stool panel was recently positive for E. coli. Transaminitis workup showed carrier state for hereditary hemochromatosis, equivocal elevation of mitochondrial antibody and was otherwise unremarkable. CMP showed her hepatic function labs had normalized. The patient presents to the clinic today with continued complaint of diarrhea since mid November. She denies nausea, vomiting, hematemesis, hematochezia or melena. KIMBERLY SOTO MSN, HEDIS COORDINATOR, PURCHASING AGENT-C [address], [place], [address], [facility] & [place] 01/18/2024 14:51:19 OBGyn Episode No OBEpisode recorded.
--- NOTE | 2025-04-17 16:24 | ECG_ITS ---
APPROVED REPORT Exam: Resting ECG HR:62 bpm ECG Measurements Heart Rate 62 AXES MI 123 P 18 QRSd 82 QRS 11 QT 416 T 64 QTc 422 Conclusion SINUS RHYTHM NORMAL ECG UNCONFIRMED REPORT Normal sinus rhythm. Ventricular rate of [address] elevation or depression. QTc normal at 422. Electronically signed by : MCKAY RAY, 04/17/2025 21:34:01
[2025-04-17 16:31] VITALS: BP 132/72
[2025-04-17 16:47] VITALS: BP 173/74; PULSE 68; RESP 17; TEMP 36.8; O2SAT 98; BMI 32.9
--- NOTE | 2025-04-17 16:47 | CT_ITS ---
PROCEDURE INFORMATION: Exam: CTA Neck With Contrast Exam date and time: 04/17/2025 5:22 PM Age: 65 years old Clinical indication: Stroke-like symptoms; Other: Possible stroke TECHNIQUE: Imaging protocol: Computed tomographic angiography of the neck with contrast. Exam focused on the cervical segments of the vasculature. 3D rendering (Not supervised by radiologist): MIP and/or 3D reconstructed images were created by the technologist. Radiation optimization: All CT scans at this facility use at least one of these dose optimization techniques: automated exposure control; mA and/or kV adjustment per patient size (includes targeted exams where dose is matched to clinical indication); or iterative reconstruction. Contrast material: ISO 370; Contrast volume: 80 ml; Contrast route: INTRAVENOUS (IV); COMPARISON: CT ANGIO NECK 04/30/2024 11:08 PM FINDINGS: Right common carotid artery: The right common carotid artery is widely patent. No stenosis. Right internal carotid artery: Atherosclerotic changes proximal right internal carotid artery are seen without significant stenosis. Right external carotid artery: Right external carotid artery has no visible occlusion. Left common carotid artery: The left common carotid artery is widely patent. No stenosis. Left internal carotid artery: Atherosclerotic changes proximal left internal carotid artery are seen without significant stenosis. Left external carotid artery: Left external carotid artery has no visible occlusion. Right vertebral artery: Right vertebral artery is patent. No significant stenosis. No evidence of dissection. Left vertebral artery: Left vertebral artery is patent. No significant stenosis. No evidence of dissection. Soft tissues: Soft tissues are unremarkable as visualized. Bones/joints: No acute osseous abnormality. Lungs: There is patchy atelectasis in the visualized lung apices. Other findings: Visualized mediastinal vasculature patent. IMPRESSION: No occlusion or significant stenosis. REFERENCES: NASCET CRITERIA. The degree of stenosis in the cervical segment of the internal carotid artery is based on NASCET criteria. Normal is no stenosis. Mild is less than 50% stenosis. Moderate is 50-69% stenosis. Severe is 70% to 99% stenosis. Total occlusion is no detectable patent lumen.
--- NOTE | 2025-04-17 16:47 | CT_ITS ---
PROCEDURE INFORMATION: Exam: CTA Head With Contrast, Arteriography Exam date and time: 04/17/2025 5:22 PM Age: 65 years old Clinical indication: Stroke-like symptoms; Other: Possible stroke TECHNIQUE: Imaging protocol: Computed tomographic angiography of the head with contrast. Exam focused on the arteries. Computed tomographic angiography of the head with contrast. Exam focused on the arteries. AI vessel analysis not performed. 3D rendering (Not supervised by radiologist): MIP and/or 3D reconstructed images were created by the technologist. Radiation optimization: All CT scans at this facility use at least one of these dose optimization techniques: automated exposure control; mA and/or kV adjustment per patient size (includes targeted exams where dose is matched to clinical indication); or iterative reconstruction. Contrast material: ISO 370; Contrast volume: 80 ml; Contrast route: INTRAVENOUS (IV); COMPARISON: CT ANGIO HEAD 04/30/2024 11:08 PM FINDINGS: ANTERIOR CIRCULATION: Right internal carotid artery: Atherosclerotic changes right internal carotid artery with mild stenosis. Right middle cerebral artery: Right middle cerebral artery is patent. No significant stenosis. No aneurysm. Right anterior cerebral artery: Right anterior cerebral artery is patent. No significant stenosis. No aneurysm. Anterior communicating artery: No anterior communicating artery aneurysm seen. Left internal carotid artery: Atherosclerotic changes left internal carotid artery with mild stenosis. Left middle cerebral artery: Left middle cerebral artery is patent. No significant stenosis. No aneurysm. Left anterior cerebral artery: Left anterior cerebral artery is patent. No significant stenosis. No aneurysm. POSTERIOR CIRCULATION: Right vertebral artery: Right vertebral artery is patent. No significant stenosis. No aneurysm. Left vertebral artery: Left vertebral artery is patent. No significant stenosis. No aneurysm. Basilar artery: The basilar artery is patent. No significant stenosis. No aneurysm. Right posterior cerebral artery: No occlusion or significant stenosis. No aneurysm. Left posterior cerebral artery: Left posterior cerebral artery is patent. No significant stenosis. No aneurysm. Veins: Visualized dural venous sinuses grossly patent on this study optimized for arterial assessment. Brain: There is no definite mass, mass effect, or midline shift present. No definite vascular malformation identified. Cerebral ventricles: No significant ventriculomegaly. Bones/joints: No acute osseous abnormality. Soft tissues: Soft tissues are unremarkable as visualized. IMPRESSION: No acute large vessel occlusion identified.
--- NOTE | 2025-04-17 16:47 | CT_ITS ---
PROCEDURE INFORMATION: Exam: CT Head Without Contrast Exam date and time: 04/17/2025 5:20 PM Age: 65 years old Clinical indication: Stroke-like symptoms; Other: Possible stroke TECHNIQUE: Imaging protocol: Computed tomography of the head without contrast. Radiation optimization: All CT scans at this facility use at least one of these dose optimization techniques: automated exposure control; mA and/or kV adjustment per patient size (includes targeted exams where dose is matched to clinical indication); or iterative reconstruction. Other technique: STROKE PROTOCOL was implemented. COMPARISON: CT HEAD/BRAIN WO CON 06/18/2024 11:07 AM FINDINGS: Brain: Small left frontal eckert radiata chronic lacunar type infarct unchanged. No acute infarct. No acute hemorrhage. Unremarkable white matter for age. No midline shift. Cerebral ventricles: No significant ventriculomegaly. Paranasal sinuses: Visualized paranasal sinuses are clear. Mastoid air cells: Mastoid air cells are well-aerated. Orbital cavities: Visualized portions of the orbits are unremarkable. Bones: No acute osseous abnormality. Soft tissues: Soft tissues are unremarkable as visualized. IMPRESSION: No acute intracranial abnormality. ASSESSMENT: ASPECTS ([place] Stroke Program Early CT Score) is 10.
[2025-04-17 16:56] LABS: Hematocrit 40.2 % (37.0-47.0); Hemoglobin 12.9 g/dL (12.2-16.2); Immature Granulocytes % 0.4 %; Mean Corpuscular HGB Conc 32.1 g/dL (31.8-35.4); Mean Corpuscular Hemoglobin 26.8 pg (27.0-31.2); Mean Corpuscular Volume 83.6 fl (81-99); Nucleated Red Blood Cells % 0 %; Platelet Count 194 K/mm3 (142-424); Red Blood Count 4.81 M/mm3 (4.20-5.40); Red Cell Distribution Width-SD 40.9 fL; White Blood Count 7.2 K/mm3 (4.8-10.8)
[2025-04-17 17:00] LABS: Alanine Aminotransferase 16 U/L (12-78); Albumin Level 4.4 g/dl (3.5-5.0); Albumin/Globulin Ratio 1.4 (1.1-1.8); Alkaline Phosphatase 82 U/L (38-126); Anion Gap 14.3 mEq/L (5-15); Aspartate Amino Transferase 32 U/L (14-36); Bilirubin,Total 0.9 mg/dl (0.2-1.3); Blood Urea Nitrogen 16 mg/dl (7-17); Calcium 9.1 mg/dl (8.4-10.2); Carbon Dioxide 31 mmol/L (22.0-30.0); Chloride 99 mmol/L (98-107); Creatinine,Serum 1.00 mg/dl (0.52-1.04); Estimated Glomerular Filt Rate 56 ml/min (>60); GFR (African American) 68 ML/MIN (>60); Globulin 3.2 g/dL (1.3-3.2); Glucose 98 mg/dl (74-100); Potassium 5.3 mmoL/L (3.5-5.1); Sodium 139 mmol/L (136-145); Total Protein,Serum 7.6 g/dl (6.3-8.2)
[2025-04-17 17:06] LABS: Microscopic, Urine URINE MICROSCOPIC (MICROSCOPIC)
[2025-04-17 17:10] LABS: Bilirubin,Urine Negative (Negative); Color,Urine YELLOW (Yellow); Glucose,Urine (UA) Negative (Negative); Ketones,Urine Negative (Negative); Leukocyte Esterase,Urine 2+ (Negative); PH,Urine 7.5 (5.0-8.5); Protein,Urine Negative (Negative); Specific Gravity, Urine 1.015 (1.005-1.030); Urobilinogen,Urine 0.2 EU/dl (0.2)
[2025-04-17 17:20] LABS: Troponin I < 0.01 ng/ml (0.00-0.034)
[2025-04-17] MEDS: SODIUM CHLORIDE 0.9% 10ML SYR (RAD ONLY) 10 ML IV (17:20)
[2025-04-17] MEDS: IOPAMIDOL-370 (76%);100ML BOTTLE 80 ML IV (17:20)
[2025-04-17] MEDS: 0.9 % SODIUM CHLORIDE 50 ML VIAL IV (17:20)
[2025-04-17 17:28] LABS: Squamous Epithelial Cell,Urine 20-50 #/hpf (0-5); WBC,Urine 20-50 #/hpf (0-3)
[2025-04-17 17:29] LABS: Bacteria,Urine 2+ /lpf; Mucus,Urine 2+ /lpf
[2025-04-17 17:30] VITALS: BP 148/73; PULSE 59; O2SAT 98
[2025-04-17 18:00] VITALS: BP 130/75; PULSE 67; O2SAT 99
[2025-04-17 18:30] VITALS: BP 127/75; PULSE 64; O2SAT 99
[2025-04-17 19:03] LABS: Microscopic, Urine URINE MICROSCOPIC (MICROSCOPIC)
[2025-04-17 19:05] LABS: Bilirubin,Urine Negative (Negative); Color,Urine YELLOW (Yellow); Glucose,Urine (UA) Negative (Negative); Ketones,Urine Negative (Negative); Leukocyte Esterase,Urine Negative (Negative); PH,Urine 7.0 (5.0-8.5); Protein,Urine Negative (Negative); Specific Gravity, Urine 1.010 (1.005-1.030); Urobilinogen,Urine 0.2 EU/dl (0.2)
[2025-04-17 19:35] LABS: RBC,Urine Occasional #/hpf (0-3)
[2025-04-17 19:36] LABS: Bacteria,Urine 1+ /lpf; Mucus,Urine 2+ /lpf
--- NOTE | 2025-04-17 20:05 | ED_ITS ---
Discharge Plan Disposition Patient Disposition: Home, Self-Care Condition: Good Prescriptions Prescriptions: No Action (DME) blood-glucose meter [OneTouch Verio Flex meter] [facility] [place] Instructions .ROUTE .MEDSUPPLY Qty: 1 Rx Instructions: As directed estradiol 0.01 % (0.1 mg/gram) cream See Rx Instructions vaginal .COMPLEX Qty: 42.5 2RF Rx Instructions: Using finger technique daily for two weeks and then 3 times weekly vaginally; oxybutynin chloride 10 mg tablet extended release 24hr 10 mg PO DAILY 90 Days Qty: 90 1RF Kerendia 10 mg tablet 10 mg PO DAILY Qty: 30 2RF (DME) Dexcom G7 Sensor Device See Rx Instructions .Route Qty: 9 3RF Rx Instructions: As directed, change every 10 days doxycycline hyclate 100 mg capsule 100 mg PO BID 14 Days Qty: 28 0RF fluconazole 150 mg tablet 150 mg PO DAILY 5 Days Qty: 5 0RF aspirin 81 mg tablet,delayed release (DR/EC) 81 mg PO DAILY ergocalciferol (vitamin D2) 1,250 mcg (50,000 unit) capsule 50,000 unit PO .TWICE A WEEK fluconazole 150 mg tablet 150 mg PO Q3D Qty: 2 0RF Rx Instructions: may repeat second dose 72 hrs after first dose if symptoms persist trazodone 100 mg tablet 100 mg PO QHS PRN (Reason: sleep) Qty: 90 1RF (DME) lancets [OneTouch Delica Plus Lancet] [facility] See Rx Instructions .ROUTE .COMPLEX Qty: 100 8RF Dose Instruction: TEST 3 TIMES A DAY Rx Instructions: TEST 3 TIMES A DAY isosorbide mononitrate 30 mg tablet extended release 24 hr See Rx Instructions .ROUTE .COMPLEX Qty: 30 5RF Dose Instruction: TAKE ONE TABLET BY MOUTH ONCE A DAY Rx Instructions: TAKE ONE TABLET BY MOUTH ONCE A DAY meloxicam 15 mg tablet See Rx Instructions .ROUTE .COMPLEX Qty: 30 5RF Dose Instruction: TAKE ONE TABLET BY MOUTH ONCE A DAY Rx Instructions: TAKE ONE TABLET BY MOUTH ONCE A DAY glimepiride 4 mg tablet See Rx Instructions .ROUTE .COMPLEX Qty: 30 5RF Dose Instruction: TAKE ONE TABLET BY MOUTH ONCE A DAY Rx Instructions: TAKE ONE TABLET BY MOUTH ONCE A DAY pantoprazole 40 mg tablet,delayed release (DR/EC) See Rx Instructions .ROUTE .COMPLEX Qty: 30 5RF Dose Instruction: TAKE ONE TABLET BY MOUTH ONCE A DAY Rx Instructions: TAKE ONE TABLET BY MOUTH ONCE A DAY Pro Fe 180 mg iron capsule See Rx Instructions .ROUTE .COMPLEX Qty: 60 5RF Dose Instruction: TAKE ONE CAPSULE BY MOUTH 2 TIMES A DAY Rx Instructions: TAKE ONE CAPSULE BY MOUTH 2 TIMES A DAY metoprolol succinate 50 mg tablet extended release 24 hr See Rx Instructions .ROUTE .COMPLEX Qty: 30 5RF Dose Instruction: TAKE ONE TABLET BY MOUTH EVERY EVENING Rx Instructions: TAKE ONE TABLET BY MOUTH EVERY EVENING levocetirizine 5 mg tablet See Rx Instructions .ROUTE .COMPLEX Qty: 30 5RF Dose Instruction: TAKE ONE TABLET BY MOUTH EVERY MORNING Rx Instructions: TAKE ONE TABLET BY MOUTH EVERY MORNING tizanidine 4 mg tablet See Rx Instructions .ROUTE .COMPLEX Qty: 90 5RF Dose Instruction: TAKE ONE TABLET BY MOUTH EVERY 8 HOURS NEEDED FOR MUSCLE SPASMS Rx Instructions: TAKE ONE TABLET BY MOUTH EVERY 8 HOURS NEEDED FOR MUSCLE SPASMS insulin degludec [Tresiba FlexTouch U-100] 100 unit/mL (3 mL) insulin pen See Rx Instructions .ROUTE .COMPLEX Qty: 15 5RF Dose Instruction: INJECT 58 UNITS SUBCUTANEOUSLY ONCE DAILY Rx Instructions: INJECT 58 UNITS SUBCUTANEOUSLY ONCE DAILY Nurtec ODT 75 mg tablet,disintegrating See Rx Instructions .ROUTE .COMPLEX Qty: 8 11RF Dose Instruction: TAKE 1 TABLET BY MOUTH AT ONSET OF MIGRAINE, THEN MAY REPEAT 1 TIME IN 2 HOURS IF NO RELIEF. MAX OF 2 IN 24 HOURS. Rx Instructions: TAKE 1 TABLET BY MOUTH AT ONSET OF MIGRAINE, THEN MAY REPEAT 1 TIME IN 2 HOURS IF NO RELIEF. MAX OF 2 IN 24 HOURS. Repatha SureClick 140 mg/mL pen injector See Rx Instructions .ROUTE .COMPLEX Qty: 2 5RF Dose Instruction: INJECT 140 MG SUBCUTANEOUSLY ONCE EVERY 14 DAYS Rx Instructions: INJECT 140 MG SUBCUTANEOUSLY ONCE EVERY 14 DAYS hydroxyzine HCl 25 mg tablet See Rx Instructions PO TID PRN (Reason: anxiety) Qty: 120 0RF Rx Instructions: take 1-2 capusles orally three times a day PRN; aripiprazole 5 mg tablet See Rx Instructions .ROUTE .COMPLEX Qty: 30 1RF Dose Instruction: TAKE 1 TABLET BY MOUTH AT BEDTIME Rx Instructions: TAKE 1 TABLET BY MOUTH AT BEDTIME levothyroxine [Synthroid] 150 mcg tablet 150 mcg PO DAILY Qty: 90 0RF (DME) OneTouch Verio test strips Strip See Rx Instructions .ROUTE .COMPLEX Qty: 100 6RF Dose Instruction: TEST 3 TIMES A DAY Rx Instructions: TEST 3 TIMES A DAY montelukast 10 mg tablet See Rx Instructions .ROUTE .COMPLEX Qty: 30 0RF Dose Instruction: TAKE ONE TABLET BY MOUTH ONCE A DAY Rx Instructions: TAKE ONE TABLET BY MOUTH ONCE A DAY losartan 50 mg tablet See Rx Instructions .ROUTE .COMPLEX Qty: 60 0RF Dose Instruction: TAKE ONE TABLET BY MOUTH 2 TIMES A DAY Rx Instructions: TAKE ONE TABLET BY MOUTH 2 TIMES A DAY Trulicity 3 mg/0.5 mL pen injector See Rx Instructions .ROUTE .COMPLEX Qty: 2 0RF Dose Instruction: inject 1 prefilled syringe SUBCUTANEOUSLY ONCE WEEKLY Rx Instructions: inject 1 prefilled syringe SUBCUTANEOUSLY ONCE WEEKLY Referrals Follow up/Referrals: Mercy Guevara APRN [Primary Care Provider, Medical] - See instructions Activity Restrictions/Add. Instructions Additional Instructions/Restrictions: You were seen for confusion and fatigue. Please return to the ER for any new or worsening symptoms. Clinical Impressions Clinical Impression: Acute confusion Instructions Patient Instructions: DI for Fatigue Print Language Print Language: [place] Discharge ED Provider: Sterling Shin General Adult HPI <COCO Gutierrez - Last Filed: 04/17/25 20:43> General Chief complaint: Weakness Stated complaint: confused,CURRY,weakness Time Seen by Provider: 04/17/25 16:15 Mode of Arrival: Ambulatory Source of Information: Patient Description of Symptoms (Recalled from ER Triage Doc. by RN): pt to the ED with intermitten confusion and fatigue accompanied by a headache x 1 week. pt denies any unilateral weakness at this time but reports an episode of unsteady gait yesterday but denies any fall or injury History of Present Illness HPI narrative: Patient presents complaining of fatigue for 2 to 3 days. She has had several naps which is unusual for her. She reports that she has been feeling off balance. Her daughter reports that she is very forgetting things such as her daughter's dog's names. She denies any vomiting or diarrhea. Denies any dysuria or frequency. complaint: fatigue, off balance Onset (ago): day(s) (2-3) Severity: moderate Consistency: intermittent Relieving factors: none Exacerbating factors: none Associated symptoms: confusion; negative fever/chills or nausea/vomiting Related Data Home Medications ?Medication ?Instructions ?Recorded ?Confirmed aspirin 81 mg tablet,delayed 81 mg PO DAILY 12/01/20 0 03/09/25 release ergocalciferol (vitamin D2) 1,250 50,000 unit PO .TWIC E A WEEK 07/02/23 03/09/25 mcg (50,000 unit) capsule blood-glucose meter (OneTouch #1 ea 10/27/24 03/09/25 Verio Flex Meter) Previous Rx's ?Medication ?Instructions ?Recorded lancets 33 gauge (OneTouch Delica #100 ea 09/17/24 Plus Lancet) trazodone 100 mg tablet 100 mg PO QHS PRN sleep #90 tabs 11/20/24 glimepiride 4 mg tablet See Rx Instructions .Route 0 11/26/24 .COMPLEX #30 tabs insulin degludec 100 unit/mL (3 See Rx Instructions .R oute 11/26/24 mL) subcutaneous pen (Tresiba .COMPLEX #15 mL FlexTouch U-100 insulin) isosorbide mononitrate 30 mg See Rx Instructions .Rout e 11/26/24 tablet,extended release 24 hr .COMPLEX #30 tabs levocetirizine 5 mg tablet See Rx Instructions .Route 11/26/24 .COMPLEX #30 tabs meloxicam 15 mg tablet See Rx Instructions .Route 0 11/26/24 .COMPLEX #30 tabs metoprolol succinate 50 mg See Rx Instructions .Route 11/26/24 tablet,extended release 24 hr .COMPLEX #30 tabs pantoprazole 40 mg tablet,delayed See Rx Instructions .Route 11/26/24 release .COMPLEX #30 tabs polysaccharide iron complex 180 mg See Rx Instructions .Route 11/26/24 iron capsule (Pro Fe) .COMPLEX #60 caps tizanidine 4 mg tablet See Rx Instructions .Route 0 11/26/24 .COMPLEX #90 tabs fluconazole 150 mg tablet 150 mg PO Q3D 2 doses #2 tab s 12/08/24 rimegepant 75 mg disintegrating See Rx Instructions .R oute 12/24/24 tablet (Nurtec ODT) .COMPLEX #8 tabs estradiol 0.01% (0.1 mg/gram) See Rx Instructions vagi nal 12/29/24 vaginal cream .COMPLEX #42.5 grams oxybutynin chloride 10 mg 10 mg PO DAILY 90 days #90 t abs 12/29/24 tablet,extended release 24 hr evolocumab 140 mg/mL subcutaneous See Rx Instructions .Route 01/23/25 pen injector ([employer] LoadStar SensorsClick) .COMPLEX #2 mL hydroxyzine HCl 25 mg tablet See Rx Instructions PO TI D PRN 03/06/25 anxiety #120 tabs blood-glucose sensor (Dexcom G7 #9 ea 03/09/25 Sensor device) doxycycline hyclate 100 mg capsule 100 mg PO BID 14 da ys #28 caps 03/09/25 finerenone 10 mg tablet (Kerendia) 10 mg PO DAILY #30 tabs 03/09/25 fluconazole 150 mg tablet 150 mg PO DAILY 5 days #5 ta bs 03/09/25 aripiprazole 5 mg tablet See Rx Instructions .Route 0 03/10/25 .COMPLEX #30 tabs levothyroxine 150 mcg tablet 150 mcg PO DAILY #90 tabs 03/20/25 (Synthroid) blood sugar diagnostic (OneTouch #100 strips 04/13/25 Verio test strips) dulaglutide 3 mg/0.5 mL See Rx Instructions .Route 0 04/16/25 subcutaneous pen injector .COMPLEX #2 mL (Trulicity) losartan 50 mg tablet See Rx Instructions .Route 0 04/16/25 .COMPLEX #60 tabs montelukast 10 mg tablet See Rx Instructions .Route 0 04/16/25 .COMPLEX #30 tabs Allergies Allergy/AdvReac Type Severity Reaction Status Date / Time pregabalin (From Lyrica) Allergy Mild Verified 03/09/25 14:13 codeine (CODEINE) Allergy Unknown I-ITCHING Verified 03/09/25 14:13 metformin (METFORMIN) Allergy Unknown HIVES, SOA Verified 03/09/25 14:13 pioglitazone (From ACTOS) Allergy Unknown SOA, HIVES Verified 03/09/25 14:13 gabapentin Allergy Verified 03/09/25 14:13 [id number] Reductase AdvReac Intermediate Verified 03/09/25 14:13 Inhibitor rosuvastatin (From Crestor) AdvReac Gastrointestinal Verified 03/09/25 14:13 Upset PFSH <COCO Gutierrez - Last Filed: 04/17/25 20:43> PFSH Disclaimer: The information contained in this section may have been updated after the patient was seen, as this information can be updated by other users. Medical History CAD (coronary artery disease) Hydrosalpinx Elevated liver enzymes Major depressive disorder Active follow-up with Behavioral Health at [facility] Generalized anxiety disorder Nausea SATYA (obstructive sleep apnea) Mild but symptomatic and multiple risk factor for cardiovascular events, mild memory impairment. Trial with AutoPap was discussed and commended, order sent to [facility]. Anxiety Neurocognitive evaluation suggestive of significant anxiety mood disorder Posterior tibial tendon dysfunction (PTTD) of left lower extremity Abdominal pain Dysphagia Enlarged lymph nodes Nodule of soft tissue Class 1 obesity Diabetes mellitus with diabetic neuropathy Osteoarthritis of left foot Posterior tibial tendinitis of left lower extremity Lymphadenopathy History of thyroid cancer Status post radiation and thyroidectomy Low TSH level Hypothyroidism (acquired) Screening for colon cancer GERD (gastroesophageal reflux disease) Hyperlipidemia White matter disease Fibromyalgia Asthma Sleep apnea Migraine Obesity, Class II, BMI 35-39.9 Synovitis of left ankle Rupture of tibialis posterior tendon Acquired pes planus of both feet Chest pain Cholecystectomy planned Hypothalamic hypothyroidism Arthritis Thyroid cancer Diabetes mellitus Hypertension Atypical chest pain Right lower lobe pneumonia Surgical History History of partial hysterectomy Status post left foot surgery History of colonoscopy History of esophagogastroduodenoscopy (EGD) Hx of heart artery stent H/O gastric sleeve History of foot surgery History of heart artery stent S/P foot surgery, right Family History Mother Diabetes Cancer Father Cancer Hypertension Dementia Grandmother Alzheimer's dementia, late onset Social History Smoking Status: Never smoker second hand exposure: No alcohol intake: never counseling given: No substance use type: marijuana counseling given: No (she is trying some of the gummies; cause she can't sleep) current occupational status: disabled Travel in the last 8 weeks?: None adopted: No caregiver/support person: No foster care: No household members: family housing: house lives independently: No marital status: number of children: 3 number of grandchildren: 2 education level: college service: No 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[employer]; 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 caffeine: Yes physical activity: none special ameya needs: No working smoke detector in home: Yes fire extinguisher in home: Yes carbon monox detector in home: No firearms in home: No do you feel safe at home: Yes victim of physical abuse: No victim of emotional abuse: No victim of sexual abuse: No would you like helpful sources: No Have you lived/traveled outside [place] in past 30 days?: No Contact w/someone who lives/traveled outside US past 30 days?: No Exposure to someone with infectious disease in past 14 days?: No Do you have a fever (greater than 100.4 F or 38 C)?: No Have you tested positive for COVID-19?: No Exposed to someone with COVID-19 in past 14 days?: No Do you have a sore throat?: No Do you have a cough?: No Do you have any weakness?: No Do you have any diarrhea?: No Are you experiencing any unusual bleeding?: No Do you have any muscle aches/pain?: No Do you have any abdominal pain?: No Are you experiencing loss of taste or smell?: No Other Medical History Have you received the Flu Vaccine for this season: No Have you received the Pneumonia Vaccine: No <COCO Gutierrez - Last Filed: 04/17/25 20:43> ROS Obtained: Yes Systems reviewed as appropriate & no additional complaints except as documented Physical Exam <COCO Gutierrez - Last Filed: 04/17/25 20:43> General General appearance: alert and in no apparent distress Head Head exam: atraumatic and normocephalic Eye Eye exam: Present normal appearance and EOMI Chest Chest inspection: Present symmetric chest wall rise Respiratory Respiratory exam: Present normal lung sounds bilaterally; Absent wheezes or stridor Cardiovascular Cardiovascular exam: Present regular rate and normal rhythm; Absent systolic murmur Extremities Exam Extremities exam: Present full ROM Neurological Exam Neurological exam: Present alert and oriented X3 Expanded Neurological Exam Speech: Present fluid speech Cranial nerves: Normal: EOM function (II, III, IV, ), facial sensation (V) and facial palsy (VII) Cerebellar function: Normal: finger to nose and heel to rosario Motor strength - LUE: 5/5 Motor strength - RUE: 5/5 Motor strength - LLE: 5/5 Motor strength - RLE: 5/5 Upper motor neuron exam: Normal: juan jose neglect and sensory extinction Sensory exam upper extremity: Normal: light touch Sensory exam lower extremity: Normal: light touch Coma scale eye opening: Spontaneous Coma scale motor response: Obeys commands Coma scale verbal response: Oriented Coma scale total: 15 Psychiatric Psychiatric exam: Present normal affect and normal mood Skin Skin exam: Present warm, dry and intact <Sterling Shin MD - Last Filed: 04/17/25 21:23> Expanded Neurological Exam Coma scale total: 15 Medical Decision Making <COCO Gutierrez - Last Filed: 04/17/25 20:43> Medical Records Screening: Per USPSTF and CDC recommendations, given the prevalence of disease in our region, it is our hospital?s policy to screen for HIV and viral Hepatitis for all patients aged 18 and over and those with ongoing risk factors. Kristofer Inquiry Pt receiving controlled substance: No Vital Signs: 04/17/25 16:31 04/17/25 16:47 04/17/25 17:30 Temperature 98.3 F Temperature Source Oral Pulse Rate 59 L Pulse Rate [Left Radial] 68 Respiratory Rate 17 Blood Pressure 132/72 148/73 H Blood Pressure [Right Arm] 173/74 H Blood Pressure Mean 105 Blood Pressure Mean [Right Arm] 107 Blood Pressure Source Blood Pressure Source [Right Arm] Automatic Cuff Blood Pressure Position Blood Pressure Position [Right Arm] Sitting 02 Sat by Pulse Oximetry 98 98 Oxygen Delivery Method Room Air 04/17/25 18:00 04/17/25 18:30 04/17/25 21:05 Temperature 98 F Temperature Source Oral Pulse Rate 67 64 66 Pulse Rate [Left Radial] Respiratory Rate 20 Blood Pressure 130/75 127/75 127/75 Blood Pressure [Right Arm] Blood Pressure Mean 93 Blood Pressure Mean [Right Arm] Blood Pressure Source Automatic Cuff Blood Pressure Source [Right Arm] Blood Pressure Position Sitting Blood Pressure Position [Right Arm] 02 Sat by Pulse Oximetry 99 99 Oxygen Delivery Method Room Air Lab Data Lab Results 04/17/25 16:18: WBC 7.2, RBC 4.81, Hgb 12.9, Hct 40.2, MCV 83.6, MCH 26.8 L, MCHC 32.1, RDW 13.4, Plt Count 194, MPV 10.1, Neut % (Auto) 63.1, Lymph % (Auto) 29.9, [place] % (Auto) 4.8, Eos % (Auto) 1.4, Baso % (Auto) 0.4, Neut # (Auto) 4.6, Lymph # (Auto) 2.2, [place] # (Auto) 0.4, Eos # (Auto) 0.1, Baso # (Auto) 0.0, Sodium 139, Potassium 5.3 H, Chloride 99, Carbon Dioxide 31 H, Anion Gap 14.3, BUN 16, Creatinine 1.00, Estimated GFR 56 L, Est GFR ( Amer) 68, Glucose 98, Calcium 9.1, Total Bilirubin 0.9, AST 32, ALT 16, Alkaline Phosphatase 82, Troponin I < 0.01, Total Protein 7.6, Albumin 4.4, Globulin 3.2, Albumin/Globulin Ratio 1.4 04/17/25 17:00: Urine Color Yellow, Urine Appearance Slightly cloudy, Urine pH 7.5, Ur Specific [place] 1.015, Urine Protein Negative, Urine Glucose (UA) Negative, Urine Ketones Negative, Urine Blood Negative, Urine Nitrate Negative, Urine Bilirubin Negative, Urine Urobilinogen 0.2, Ur Leukocyte Esterase 2+ A, Urine RBC 5-10, Urine WBC 20-50, Ur Squamous Epith Cells 20-50, Urine Bacteria 2+, Urine Mucus 2+ 04/17/25 18:40: Urine Color Yellow, Urine Appearance Clear, Urine pH 7.0, Ur Specific [place] 1.010, Urine Protein Negative, Urine Glucose (UA) Negative, Urine Ketones Negative, Urine Blood Negative, Urine Nitrate Negative, Urine Bilirubin Negative, Urine Urobilinogen 0.2, Ur Leukocyte Esterase Negative, Urine RBC Occasional, Urine WBC 10-20, Ur Squamous Epith Cells 3-5, Urine Bacteria 1+, Urine Mucus 2+ 04/17/25 20:11: Troponin I < 0.01 04/17/25 16:18 04/17/25 16:18 Orders (Tests/Meds): ED MEDICATIONS Discontinued Medications Generic Name Dose Route Start Last Admin Trade Name Freq PRN Reason Stop Dose Admin Iopamidol 80 ml 04/17/25 17:19 04/17/25 17:20 Iopamidol-370 (76%);100ml Bottle IV 04/17/25 17:20 80 ml ONCE ONE Administration Sodium Chloride 10 ml 04/17/25 16:47 Sodium Chloride 0.9% 10ml Flush Syringe IV 05/17/25 16:46 NEEDED PRN Maintain IV Site Sodium Chloride 50 ml 04/17/25 17:19 04/17/25 17:20 0.9 % Sodium Chloride 50 Ml Vial IV 04/17/25 17:20 50 ml ONCE ONE Administration Sodium Chloride 10 ml 04/17/25 17:19 04/17/25 17:20 Sodium Chloride 0.9% 10ml Syr (Rad Only) IV 04/17/25 17:20 10 ml ONCE ONE Administration ORDERS Category Date Time Status CT angio head Stat Cat Scan 04/17/25 16:[address] angio neck Stat Cat Scan 04/17/25 16:[address] head/brain wo con Stat Cat Scan 04/17/25 16:47 Completed Complete Blood Count Auto Diff Stat Lab 04/17/25 16:18 Completed Comprehensive Metabolic Panel Stat Lab 04/17/25 16:18 Completed Troponin I Q3H Lab 04/17/25 20:11 Completed Troponin I Stat Lab 04/17/25 16:18 Completed Urinalysis and Microscopic Stat Lab 04/17/25 17:00 Completed Urinalysis and Microscopic Stat Lab 04/17/25 18:40 Completed Urine Culture Stat Micro 04/17/25 17:00 Received Medical Decision Narrative: In summary patient is a 65-year-old who presents the emergency department for evaluation of fatigue, feeling off balance. Patient is hemodynamically stable upon arrival, afebrile. Unremarkable physical exam. Differential diagnosis includes CVA, UTI, electrolyte disturbance. Initial workup will be conducted with hematologic labs, urinalysis, CTA head neck. Workup is unremarkable. Given this patient is appropriate for discharge home at this time with strict return precautions and advised follow-up with PCP. <Sterling Shin MD - Last Filed: 04/17/25 21:23> Vital Signs: 04/17/25 16:31 04/17/25 16:47 04/17/25 17:30 Temperature 98.3 F Temperature Source Oral Pulse Rate 59 L Pulse Rate [Left Radial] 68 Respiratory Rate 17 Blood Pressure 132/72 148/73 H Blood Pressure [Right Arm] 173/74 H Blood Pressure Mean 105 Blood Pressure Mean [Right Arm] 107 Blood Pressure Source Blood Pressure Source [Right Arm] Automatic Cuff Blood Pressure Position Blood Pressure Position [Right Arm] Sitting 02 Sat by Pulse Oximetry 98 98 Oxygen Delivery Method Room Air 04/17/25 18:00 04/17/25 18:30 04/17/25 21:05 Temperature 98 F Temperature Source Oral Pulse Rate 67 64 66 Pulse Rate [Left Radial] Respiratory Rate 20 Blood Pressure 130/75 127/75 127/75 Blood Pressure [Right Arm] Blood Pressure Mean 93 Blood Pressure Mean [Right Arm] Blood Pressure Source Automatic Cuff Blood Pressure Source [Right Arm] Blood Pressure Position Sitting Blood Pressure Position [Right Arm] 02 Sat by Pulse Oximetry 99 99 Oxygen Delivery Method Room Air Lab Data Lab Results 04/17/25 16:18: WBC 7.2, RBC 4.81, Hgb 12.9, Hct 40.2, MCV 83.6, MCH 26.8 L, MCHC 32.1, RDW 13.4, Plt Count 194, MPV 10.1, Neut % (Auto) 63.1, Lymph % (Auto) 29.9, [place] % (Auto) 4.8, Eos % (Auto) 1.4, Baso % (Auto) 0.4, Neut # (Auto) 4.6, Lymph # (Auto) 2.2, [place] # (Auto) 0.4, Eos # (Auto) 0.1, Baso # (Auto) 0.0, Sodium 139, Potassium 5.3 H, Chloride 99, Carbon Dioxide 31 H, Anion Gap 14.3, BUN 16, Creatinine 1.00, Estimated GFR 56 L, Est GFR ( Amer) 68, Glucose 98, Calcium 9.1, Total Bilirubin 0.9, AST 32, ALT 16, Alkaline Phosphatase 82, Troponin I < 0.01, Total Protein 7.6, Albumin 4.4, Globulin 3.2, Albumin/Globulin Ratio 1.4 04/17/25 17:00: Urine Color Yellow, Urine Appearance Slightly cloudy, Urine pH 7.5, Ur Specific [place] 1.015, Urine Protein Negative, Urine Glucose (UA) Negative, Urine Ketones Negative, Urine Blood Negative, Urine Nitrate Negative, Urine Bilirubin Negative, Urine Urobilinogen 0.2, Ur Leukocyte Esterase 2+ A, Urine RBC 5-10, Urine WBC 20-50, Ur Squamous Epith Cells 20-50, Urine Bacteria 2+, Urine Mucus 2+ 04/17/25 18:40: Urine Color Yellow, Urine Appearance Clear, Urine pH 7.0, Ur Specific [place] 1.010, Urine Protein Negative, Urine Glucose (UA) Negative, Urine Ketones Negative, Urine Blood Negative, Urine Nitrate Negative, Urine Bilirubin Negative, Urine Urobilinogen 0.2, Ur Leukocyte Esterase Negative, Urine RBC Occasional, Urine WBC 10-20, Ur Squamous Epith Cells 3-5, Urine Bacteria 1+, Urine Mucus 2+ 04/17/25 20:11: Troponin I < 0.01 Orders (Tests/Meds): ED MEDICATIONS Discontinued Medications Generic Name Dose Route Start Last Admin Trade Name Freq PRN Reason Stop Dose Admin Iopamidol 80 ml 04/17/25 17:19 04/17/25 17:20 Iopamidol-370 (76%);100ml Bottle IV 04/17/25 17:20 80 ml ONCE ONE Administration Sodium Chloride 10 ml 04/17/25 16:47 Sodium Chloride 0.9% 10ml Flush Syringe IV 05/17/25 16:46 NEEDED PRN Maintain IV Site Sodium Chloride 50 ml 04/17/25 17:19 04/17/25 17:20 0.9 % Sodium Chloride 50 Ml Vial IV 04/17/25 17:20 50 ml ONCE ONE Administration Sodium Chloride 10 ml 04/17/25 17:19 04/17/25 17:20 Sodium Chloride 0.9% 10ml Syr (Rad Only) IV 04/17/25 17:20 10 ml ONCE ONE Administration ORDERS Category Date Time Status CT angio head Stat Cat Scan 04/17/25 16:[address] angio neck Stat Cat Scan 04/17/25 16:[address] head/brain wo con Stat Cat Scan 04/17/25 16:47 Completed Complete Blood Count Auto Diff Stat Lab 04/17/25 16:18 Completed Comprehensive Metabolic Panel Stat Lab 04/17/25 16:18 Completed Troponin I Q3H Lab 04/17/25 20:11 Completed Troponin I Stat Lab 04/17/25 16:18 Completed Urinalysis and Microscopic Stat Lab 04/17/25 17:00 Completed Urinalysis and Microscopic Stat Lab 04/17/25 18:40 Completed Urine Culture Stat Micro 04/17/25 17:00 Received Medical Decision Narrative: In summary patient is a 65-year-old who presents the emergency department for evaluation of fatigue, feeling off balance. Patient is hemodynamically stable upon arrival, afebrile. Unremarkable physical exam. Differential diagnosis includes CVA, UTI, electrolyte disturbance. Initial workup will be conducted with hematologic labs, urinalysis, CTA head neck. Workup is unremarkable. Given this patient is appropriate for discharge home at this time with strict return precautions and advised follow-up with PCP. I was consulted by the SPENSER, and we discussed the complexity of the problems being addressed. I approve the treatment and management plan for this patient's care in the emergency department, thus performing a substantive portion of the medical decision making. Laboratory studies show no leukocytosis, no significant anemia, mildly elevated potassium of 5.3 but nonactionable. No REENA. Liver enzymes within normal limits. Troponin negative x 2. No evidence of urinary tract infection with 10-20 white blood cells, 1+ bacteria. Nitrate and leukocyte esterase negative. Sterling Shin MD Critical Care <COCO Gutierrez - Last Filed: 04/17/25 20:43> Critical Care Time Critical Care Time: No
[2025-04-17 20:50] LABS: Troponin I < 0.01 ng/ml (0.00-0.034)
[2025-04-17 21:05] VITALS: BP 127/75; PULSE 66; RESP 20; TEMP 36.6; O2SAT 100
--- NOTE | 2025-04-17 21:06 | PC.NURSE ---
IV discontinued. Catheter tip intact. Bleeding controlled.
--- NOTE | 2025-04-19 08:42 | PC.NURSE ---
Urine culture results reviewed by Dr. Sims, no new orders received.
== END 2025-04-17 21:06 | disposition home or self-care (01) ==
PROVIDERS: Physician Assistant; Emergency Provider Student in an Organized Health Care Education/Training Program; PCP Nurse Practitioner Family
DX: R41.0 Disorientation, unspecified (principal); R51.9 Headache, unspecified; R53.83 Other fatigue; I10 Essential (primary) hypertension; Z86.79 Personal history of other diseases of the circulatory system
CPT/HCPCS: 70450; 70496; 70498; 80053; 81001; 84484; 85025; 87086; 93005; 99285; Q9967

== ENCOUNTER 2025-04-20 14:55 | Outpatient (CLI) | payer MEDICARE, MEDICAID, SELFPAY ==
--- OUTSIDE RECORDS SUMMARY | 2025-02-23 15:00 | XMS_ITS | Encounter Summary ---
Author Organization [place] [address] Care Team Providers Care Rn Delivery Name Role Phone Chris Serra MD Unavailable [phone] Reason for Visit * Reason Comments Diabetes Type 2 Encounter Details Date Type Department Care Team (Late st Contact Info) Description 02/23/2025 3:00 PM EDT [facility] [address] [facility] [address] [place] [phone] Rojas Cunningham MD [address] [place] [facility] [address] [place] [address] Dyslipidemia associated with type 2 diabetes mellitus (HCC) (Primary Dx); Post-surgical hypothyroidism; Vitamin D deficiency; Follicular thyroid cancer (HCC) Social History Tobacco Use Types Packs/Day Years Used Date Smoking Tobacco: Never Smokeless Tobacco: Never Tobacco Cessation:Counseling Given: Not Answered Alcohol Use Standard Drinks/Week Comments No 0 (1 standard drink = 0.6 oz pur e alcohol) Sexually Active Control Partners Comments Yes Male Comments No Sex and Gender Information Value Date Recorded Sex Assigned at Not on file Legal Sex Female 5:02 PM EDT Gender Identity Not on file Sexual Orientation Not on file documented as of this encounter Last Filed Vital Signs Vital Sign Reading Time Taken Comments Blood Pressure 105/62 02/23/2025 3:01 PM EDT Pulse 67 02/23/2025 3:01 PM EDT Temperature - - Respiratory Rate - - Oxygen Saturation - - Inhaled Oxygen Concentration - - Weight 83 kg (182 lb 14.4 oz) 02/23/2025 3:01 PM EDT Height 160 cm (5' 3 ) 02/23/2025 3:01 PM EDT Body Mass Index 32.4 02/23/2025 3:01 PM EDT documented in this encounter Functional Status * Is the person deaf or does he/she have serious difficulty hearing? Answer Date of Assessment Author No 05/31/2017 12:29 PM EDT Peng Soriano RN * Is the person blind or does he/she have serious difficulty seeing even when wearing glasses? Answer Date of Assessment Author No 05/31/2017 12:29 PM EDT Peng Soriano RN * Does this person have serious difficulty walking or climbing stairs? Answer Date of Assessment Author No 05/31/2017 12:29 PM EDT Peng Soriano RN * Does this person have difficulty dressing or bathing? Answer Date of Assessment Author No 05/31/2017 12:29 PM EDT Peng Soriano RN * Because of a physical, mental or emotional condition, does this person have difficulty doing errands alone such as visiting a doctor's office or shopping? Answer Date of Assessment Author No 05/31/2017 12:29 PM EDT Peng Soriano RN documented as of this encounter Mental Status * Because of a physical, mental or emotional condition, does this person have serious difficulty concentrating, remembering or making decisions? Answer Entry Date Author No 05/31/2017 12:29 PM EDT Peng Soriano RN documented in this encounter Progress Notes * Rojas Cunningham MD - 02/23/2025 3:00 PM EDT Subjective: Patient ID: Angeles Machado is a 64 y.o. female who is here for further management of Her diabetes and other endocrine related medical problems. Diabetes Associated symptoms include headaches. Pertinent negatives include no abdominal pain, chest pain, chills, congestion, coughing, diaphoresis, fatigue, fever, myalgias, nausea, neck pain, numbness, rash, sore throat, vomiting or weakness. Follow-up Associated symptoms include headaches. Pertinent negatives include no abdominal pain, chest pain, chills, congestion, coughing, diaphoresis, fatigue, fever, myalgias, nausea, neck pain, numbness, rash, sore throat, vomiting or weakness. Thyroid Problem Associated symptoms include headaches. Pertinent negatives include no abdominal pain, chest pain, chills, congestion, coughing, diaphoresis, fatigue, fever, myalgias, nausea, neck pain, numbness, rash, sore throat, vomiting or weakness. Had the Sleeve 2016__23_Dr. Choi Diagnosed About 5 years ago Patient was tried on these diabetic medications Insulin medications: -insulin NPH hum/reg insulin hm, insulin aspart, insulin degludec, insulin detemir, insulin glargine,hum.rec.anlog, insulin regular, human Insulin release stimulant medications: -glimepiride DPP-4 inhibitor medications: No DPP-4 inhibitor medication orders found for patient GLP-1 agonists medications: -dulaglutide Incretin mimetic combination medications: No incretin mimetic combination medication orders found for patient Other hyperglycemic medications: No other hyperglycemic medication orders found for patient Currently on: Insulin medications: -02/03/2021 INSULIN ASPART (U-100) 100 UNIT/ML (3 ML) SUBCUTANEOUS PEN - 0 Rx#[id number]. -01/09/2024 TRESIBA FLEXTOUCH U-100 INSULIN 100 UNIT/ML (3 ML) SUBCUTANEOUS PEN - 0 Rx#[id number]. Insulin release stimulant medications: -09/05/2023 GLIMEPIRIDE 4 MG TABLET - 4 mg EVERY MORNING Rx#[id number]. DPP-4 Inhibitor medications: No DDP-4 Inhibitor orders found for patient GLP-1 agonists medications: -09/05/2023 TRULICITY 3 MG/0.5 ML SUBCUTANEOUS PEN INJECTOR - 3 mg WEEKLY Rx#[id number]. Incretin mimetic combination medications: No Incretin Mimetic Combination orders found for patient Other hyperglycemic medications: No Incretin Mimetic Combination orders found for patient Insulin; has been on it for about 2-3 years- Tresiba 58 Insulin Dosing Basal Insulin Type: Tresiba Basal Insulin - A.M.: 58 Breakfast Lunch Dinner Bedtime/Snack Metformin: had allergies; Hives (Generic) Trulicity weekly Glimepiride Actos: not a good candidate for, as she had bladder issues while using it. SGM: four per day and the results range from 114-400 Hypoglycemia: sometimes. Lowest 40s. Patient was aware of it. Target A1c: <7% Glycated hemoglobin results; A1c was 6.4 in July Lab Results Component Value Date HGBA1C 6.9 05/06/2024 HGBA1C 7.8 12/31/2023 HGBA1C 6.8 09/18/2023 Patient has Her eyes checked recently with possible evidence of retinopathy per report Patient has not history of CKD or nephropathy . Positive family history of diabetes Dietary habits consistent. Exercise; not recently due to pain. ACEI/ARB: none Statin: Pravastatin and praluent 150 , now on repatha ASA:325 Smoke; none Others; Dyslipidemia;; on praluent and pravastatin Patient was tried on these Lipid lowering therapies (LLT) -alirocumab, atorvastatin calcium, evolocumab, ezetimibe, fenofibrate, omega-3 acid ethyl esters Currently on: Statin medications: -01/19/2016 PRAVASTATIN 20 MG TABLET - 0 NIGHTLY Rx#[id number]. PCSK9 Inhibitors: -07/18/2024 REPATHA SURECLICK 140 MG/ML SUBCUTANEOUS PEN INJECTOR - 140 mg EVERY 14 DAYS Rx#[id number]. Other antihyperlipidemic medications: No other antihyperlipidemic orders found for patient Therapy plan medications: No therapy plan of the specified type found. Central [place] Score is 4 Has 3 children Allergic to Soya products so could not use OTC fish oil Vitamin Deficiency; Not on OTC D3 5000 Kidney stones; bilateral; 7 days per week Thyroid nodule Had completion thyroidectomy by Surgery at . Reviewed initial pathology from Right lobectomy in 2016-01-05 Had pT2N0 minimally invasive follicular carcinoma Then she had Completion thyroidectomy afterwards with microscopic PTC found Had Ablation at Takes daily Lab Results Component Value Date TSH 17.500 (A) 05/06/2024 TSH 7.620 (A) 09/18/2023 TSH 0.222 (L) 05/25/2023 Lab Results Component Value Date TSHREFLEX 1.650 06/24/2013 Lab Results Component Value Date FREET4 1.93 12/31/2023 FREET4 1.05 09/18/2023 FREET4 1.73 03/20/2023 Lab Results Component Value Date T3FREE 2.83 03/20/2023 T3FREE 3.1 02/06/2023 T3FREE 2.47 06/24/2019 Family history of; Thyroid disease Premature strokes in dad MRI recently showed; some changes that could represent small vessel ischemic change, post demyelinating or postinflammatory process. Patients past medical, family and social histories were reviewed and updated. There were no changesexcept as noted. Review of Systems Constitutional: Positive for activity change. Negative for appetite change, chills, diaphoresis, fatigue and fever. HENT: Negative for congestion, dental problem, drooling, ear discharge, ear pain, facial swelling, hearing loss, mouth sores, nosebleeds, postnasal drip, rhinorrhea, sinus pressure, sore throat, tinnitus, trouble swallowing and voice change. Eyes: Negative for photophobia, pain, discharge, redness, itching and visual disturbance. Respiratory: Negative for apnea, cough, choking, chest tightness, shortness of breath and wheezing. Cardiovascular: Negative for chest pain, palpitations and leg swelling. Gastrointestinal: Negative for abdominal distention, abdominal pain, anal bleeding, constipation, diarrhea, nausea, rectal pain and vomiting. Endocrine: Negative for cold intolerance, heat intolerance, polydipsia, polyphagia and polyuria. Genitourinary: Negative for decreased urine volume, dysuria, flank pain, frequency, genital sores, hematuria, menstrual problem, pelvic pain, urgency, vaginal discharge and vaginal pain. Musculoskeletal: Negative for back pain, gait problem, myalgias, neck pain and neck stiffness. Skin: Negative for color change, pallor, rash and wound. Allergic/Immunologic: Positive for environmental allergies and food allergies. Negative for immunocompromised state. Neurological: Positive for headaches. Negative for dizziness, tremors, seizures, facial asymmetry, speech difficulty, weakness, light-headedness and numbness. Hematological: Does not bruise/bleed easily. Psychiatric/Behavioral: Positive for confusion and dysphoric mood. Negative for agitation, behavioral problems, decreased concentration, hallucinations, self- injury, sleep disturbance and suicidal ideas. The patient is not nervous/anxious and is not hyperactive. All other systems reviewed and are negative. Objective: Vitals: 02/23/25 1501 BP: 105/62 BP Location: Left arm Patient Position: Sitting Pulse: 67 Weight: 182 lb 14.4 oz (83 kg) Height: 5' 3 (1.6 m) Body mass index is 32.4 kg/m??. Physical Exam Constitutional: General: She is not in acute distress. Appearance: She is not ill-appearing, toxic-appearing or diaphoretic. HENT: Head: Normocephalic. Eyes: Extraocular Movements: Extraocular movements intact. Conjunctiva/sclera: Conjunctivae normal. Pulmonary: Effort: Pulmonary effort is normal. Skin: Coloration: Skin is not pale. Findings: No bruising, erythema or rash. Neurological: General: No focal deficit present. Mental Status: She is alert and oriented to person, place, and time. Psychiatric: Mood and Affect: Mood normal. Behavior: Behavior normal. Thought Content: Thought content normal. Judgment: Judgment normal. Monofilament and Eye Exam Foot Exam Performed?: Yes Pedal Pulses R Posterior Tibial: Present L Posterior Tibial: Present R Dorsalis Pedis: Present L Dorsalis Pedis: Present Neurologic R Monofilament : Decreased L Monofilament: Decreased Foot Inspection R Inspection: Abnormal L Inspection: Abnormal Description: bilateral feet deformitites Eye Exam External Results Assessment and Plan: Angeels was seen today for diabetes. Diagnoses and all orders for this visit: Dyslipidemia associated with type 2 diabetes mellitus (HCC) - EXTERNAL RESULTS REQUEST - C-REACTIVE PROTEIN; Future - COMPREHENSIVE METABOLIC PANEL; Future - HEMOGLOBIN A1C; Future - MICROALBUMIN/CREATININE RATIO URINE; Future - VITAMIN B12 LEVEL; Future - LIPID PANEL REFLEX; Future Post-surgical hypothyroidism - THYROID STIMULATING HORMONE; Future - T4, FREE (THYROXINE); Future - THYROGLOBULIN AND TG AB REFLEX MONITOR-REF LAB; Future Vitamin D deficiency - VITAMIN D 25 HYDROXY; Future Follicular thyroid cancer (HCC) Patient Instructions Please continue same dose of the medication(s) we prescribed. Will see you back in clinic in 3 Months , with me, with blood work done 1-2 Weeks prior to the clinic appointment. Endocrine Problem list updated. Return in about 3 months (around 05/26/2025). DexCom/Mil[place] Patient have Diabetes mellitus Patient is checking blood sugar levels 4 times daily Patient is injecting insulin 3 times a day Patient's insulin treatment regimen requires frequent Adjustment by the patient on the basis of BGMor CGM testing results; and patient have been seen within the last 6 months Patient continues to see doctor at least every 6 months * Carole Elaine RN - 02/23/2025 3:00 PM EDT RVVO: Dr. Cunningham/Cris Elaine RN CDCES Met with patient and daughter to assist with CGM system management. Patient just received new android phone, specifically compatible with Dexcom G7. Daughter reports has been unsuccessful with pairing justino and sensor x3 but hasn't recently attempted due to various life events. No Dexcom G7 available during visit to start new sensor. Daughter downloaded G7 justino and logged in. Patient needs to start new sensor session at this time. Encouraged daughter to apply new sensor and attempt pairing. Discussed troubleshooting tips such as making sure bluetooth is enabled. If unsuccessful at pairingonce new sensor is applied, recommended and provided Dexcom Customer Care number to reach out [phone]. Daughter and patient verbalized understanding. documented in this encounter Miscellaneous Notes * Patient Instructions - Rojas Cunningham MD - 02/23/2025 3:00 PM EDT Please continue same dose of the medication(s) we prescribed. Will see you back in clinic in 3 Months , with me, with blood work done 1-2 Weeks prior to the clinic appointment. documented in this encounter Plan of Treatment Upcoming Encounters Date Type Department Care Team (Late st Contact Info) Description 07/01/2025 3:20 PM EDT [facility] [address] [facility] [address] [place] [phone] Rojas Cunningham MD [address] [facility] [address] [place] [phone] Scheduled Orders Name Type Priority Associated Diagnoses Orde r Schedule C-REACTIVE PROTEIN Lab Routine Dyslipidemia associated with type 2 diabetes mellitus (HCC) Expected: 04/25/2025, Expires: 07/26/2025 COMPREHENSIVE METABOLIC PANEL Lab Routine Dyslipidemia associated with type 2 diabetes mellitus (HCC) Expected: 04/25/2025, Expires: 07/26/2025 HEMOGLOBIN A1C Lab Routine Dyslipidemia associated with type 2 diabetes mellitus (HCC) Expected: 04/25/2025, Expires: 07/26/2025 MICROALBUMIN/CREATININE RATIO URINE Lab Routine Dyslipidemia associated with type 2 diabetes mellitus (HCC) Expected: 04/25/2025, Expires: 07/26/2025 VITAMIN B12 LEVEL Lab Routine Dyslipidemia associated with type 2 diabetes mellitus (HCC) Expected: 04/25/2025, Expires: 07/26/2025 VITAMIN D 25 HYDROXY Lab Routine Vitamin D deficiency Expected: 04/25/2025, Expires: 07/26/2025 LIPID PANEL REFLEX Lab Routine Dyslipidemia associated with type 2 diabetes mellitus (HCC) Expected: 04/25/2025, Expires: 07/26/2025 THYROID STIMULATING HORMONE Lab Routine Post-surgical hypothyroidism Expected: 04/25/2025, Expires: 07/26/2025 T4, FREE (THYROXINE) Lab Routine Post-surgical hypothyroidism Expected: 04/25/2025, Expires: 07/26/2025 THYROGLOBULIN AND TG AB REFLEX MONITOR-REF LAB Lab Routine Post-surgical hypothyroidism Expected: 04/25/2025, Expires: 07/26/2025 documented as of this encounter Goals Goal Patient Goal Type Associated Problems Recent Progress Patient-Stated? Author Blood Pressure < 140/90 Blood Pressure 105/62(2024 3:01 PM EDT) No Jigna Dove LCSW BMI (Calculated) < 30 General 32.5(02/24/20 3:01 PM EDT) No Jigna Dove LCSW Maintain a healthy diet, exercise regularly and maintain an ideal body weight General No Jigna Dove LCSW HEMOGLOBIN A1C < 7.0 Result Component 7.2( 11:14 AM EDT) No Jigna Dove LCSW documented as of this encounter Visit Diagnoses Diagnosis Dyslipidemia associated with type 2 diabetes mellitus (HCC)- Primary Type II or unspecified type diabetes mellitus with other specified manifestations, not stated as uncontrolled Post-surgical hypothyroidism Postsurgical hypothyroidism Vitamin D deficiency Unspecified vitamin D deficiency Follicular thyroid cancer (HCC) Malignant neoplasm of thyroid gland documented in this encounter Orders Nursing Count Last Ordered Date First Orde red Date EXTERNAL RESULTS REQUEST 1 02/23/2025 documented in this encounter Care Teams Rn Delivery Relationship Specialty Start Date End Date Chris Serra MD [address] [place] [address] [place] [address] Physician Internal Medicine-Cardiovascular Disease 01/16/13 documented as of this encounter
[2025-04-20 18:47] LABS: Free T4 (Free Thyroxine) 1.47 ng/dl (0.78-2.19)
[2025-04-20 18:48] LABS: T4 (Thyroxine) 12.0 ug/dl (5.53-11.0)
[2025-04-20 19:02] LABS: Thyroid Stimulating Hormone 0.70 uIU/mL (0.465-4.68)
--- OUTSIDE RECORDS SUMMARY | 2025-04-21 12:57 | XMS_ITS | Clinical Summary ---
Author Organization [facility] Address [address] [place] [id number] Care Team Providers Care Trench Digging Machine Operator Name Role Phone Tiffany Mayen Primary Care Provider [phone] Source Comments This information has been disclosed [...] therelease of HIV test results or diagnoses. [id number] Allergies No known active allergies Immunizations [...] of Treatment Not on file Insurance MEDICAID [place] Care Teams Trench Digging Machine Operator Relationship Specialty Start Date End Date Tiffany Mayen [address] [facility] [address] [address] PCP - General 07/12/16
--- OUTSIDE RECORDS SUMMARY | 2025-04-21 12:58 | XMS_ITS | Clinical Summary ---
Author Organization [facility] Address [address] [place] [address] Care Team Providers Care Vinyl Welder And Fabricator Name Role Phone Unavailable Primary Care Provider [...] 09/09/2009 [facility]-Zoster Vaccines (1 of 2) 2012 HEI-DEBPM-58 Vaccine ( - season) 2024 [facility]-Influenza Vaccine [...]
--- OUTSIDE RECORDS SUMMARY | 2025-04-21 12:58 | XMS_ITS | Encounter Summary ---
Author Organization [place] [address] Care Team Providers Care Steam Fitter Supervisor Maintenance Name Role Phone Chris Serra MD Unavailable [phone] Reason for Visit * Reason Onset Date Comments Results 02/23/2025 External Results Request - Diabetes Eye Exam Encounter Details Date Type Department Care Team (Late st Contact Info) Description 02/23/2025 Telephone [facility] Quality Transformation [address] [place] [address] Rojas Cunningham MD [address] [facility] [address] [place] [address] Results (External Results Request - [...] abstracted in the patient's chart on 03/23/2025. [facility] Quality Transformation Department Clinical Pool: [id number] * Telephone Encounter - Ronen Barriga RMA - 03/23/2025 10:54 AM EDT 2nd Attempt: External result requested: Diabetes Eye Exam Referral Encounter Provider: Dr. Cunningham External facility name: [facility] Called and spoke with Amna, at phone number [phone] . Confirmed will fax results : Questions or concerns please contact [facility]formation. [facility] Quality Transformation Quality Clinical Pool: [id number] * Telephone Encounter - Ratna Astorga RMA - 02/23/2025 3:25 PM EDT 1st Attempt: External result requested: Diabetes Eye Exam Referral Encounter Provider: Dr. Cunningham External facility name: [facility] Faxed: [phone] Process: [facility]P Quality Transformation makes two outreaches [...] Transformation. [facility] Quality Transformation Quality Clinical Pool: [id number] documented in this encounter Plan of Treatment Upcoming Encounters Date Type Department Care Team (Late st Contact Info) Description 07/01/2025 3:20 PM EDT Office Visit [facility] [place] [address] [facility] [address] [place] [id number] Rojas Cunningham MD [address] [facility] [address] [place] [id number] documented as of this encounter Goals [...] on filedocumented in this encounter Care Teams Steam Fitter Supervisor Maintenance Relationship Specialty Start Date End Date Chris Serra MD [address] [place] [address] Physician Internal Medicine-Cardiovascular Disease 01/16/13 documented as of this encounter
--- OUTSIDE RECORDS SUMMARY | 2025-04-21 13:00 | XMS_ITS | Continuity of Care Document ---
Author Organization [facility] Address [facility] [place] [address] Phone Care Team Providers Care Gas Flow Regulator Name Role Phone Chris Serra MD Unavailable [phone] Encounters Date Type Department Care Team Description 02/23/2025 Telephone [facility] [address] [place] [address] Rojas Cunningham MD Results (External Results Request - Diabetes Eye Exam ) 02/23/2025 3:00 PM EDT Office Visit [facility] [address] [employer] [facility] [address] [place], [place] [phone] Rojas Cunningham MD Dyslipidemia associated with type 2 diabetes mellitus (HCC) (Primary Dx); Post-surgical hypothyroidism; Vitamin D deficiency; Follicular thyroid cancer (HCC) 02/16/2025 Telephone [facility] [address] [employer] [address] [place] [phone] Rojas Cunningham MD Labs Only 02/12/2025 Telephone [facility] [address] [employer] [address] [place] [phone] Rojas Cunningham MD Paperwork/forms 09/01/2024 Telephone [facility] [address] [employer] [address] Rojas Cunningham MD Paperwork/forms (TMS) 08/26/2024 10:40 AM EST Office Visit [address] [place] [address] Rojas Cunningham MD Dyslipidemia associated with type 2 diabetes mellitus (HCC) (Primary Dx); Post-surgical hypothyroidism; Vitamin D deficiency 07/18/2024 [place] [address] Rojas Cunningham MD Medication Refill 07/14/2024 [place] [address] Lissy Sagastume APRN Medication Refill 05/13/[address] Lissy Sagastume APRN Medication Refill 05/08/2024 12:30 [place] [address] Rojas Cunningham MD Post-surgical hypothyroidism (Primary Dx); Follicular thyroid cancer (HCC); Vitamin D deficiency; Dyslipidemia associated with type 2 diabetes mellitus (HCC) 04/30/2024 Telephone [facility] [address] [place] [address] Rojas Cunningham MD Other 04/03/2024 [facility]ty [facility] [address] [place] [address] Jael Baker CPhT Pharmacy Hyperlipidemia Management (Repatha) 01/09/2024 Telephone [facility] [address] [place] [phone] Rojas Cunningham MD Medication Refill 01/08/2024 [address] [place] [address] [address] [place] [phone] Rojas Cunningham MD Medication Refill 01/08/2024 [facility]ty [facility] [address] [place] [address] Hyacinth Mancilla [facility] Hyperlipidemia Management (Repatha ) 01/07/2024 Travel 01/07/2024 12:20 [place] [address] Rojas Cunningham MD Dyslipidemia associated with type 2 diabetes mellitus (HCC) (Primary Dx); Post-surgical hypothyroidism; Follicular thyroid cancer (HCC); Vitamin D deficiency 12/26/2023 Telephone [place] [phone] Rojas Cunningham MD Labs Only 11/28/2023 [facility]ty [facility] [address] [place] [id number] Mary Mancilla [facility] Pharm[facility] Hyperlipidemia Management; Pharmacy Reassessment (Repatha) 10/31/2023 Refill [place] [address] [place] [address] Rojas Cunningham MD Medication Refill 10/10/2023 [facility]ty [facility] [address] [place] [address] Arnav Duong [facility] Hyperlipidemia Management (Repatha) 09/24/2023 1:50 PM EST Office Visit [address] [address] Rojas Cunningham MD Dyslipidemia associated with type 2 diabetes mellitus (HCC) (Primary Dx); Vitamin D deficiency; Post-surgical hypothyroidism; Follicular thyroid cancer (HCC) 09/18/2023 Telephone [facility] [address] [phone] Rojas Cunningham MD Labs Only 09/17/2023 Telephone [facility] [address] [phone] Rojas Cunningham MD Labs (Reminder call) 09/05/2023 Telephone [facility] [address] [phone] Rojas Cunningham MD Medication Refill 07/18/2023 Telephone [facility] [address] [place] [phone] Rojas Cunningham MD Patient Education 07/16/2023 [facility]ty [facility] [address] [place] [address] Hyacinth Mancilla [facility] Hyperlipidemia Management (Repatha) 06/07/2023 2:50 PM EDT Office Visit [facility] [address] [place] [phone] Rojas Cunningham MD Dyslipidemia associated with type 2 diabetes mellitus (HCC) (Primary Dx); Vitamin D deficiency; Post-surgical hypothyroidism; Follicular thyroid cancer (HCC) 05/25/2023 9:30 AM EDT - 05/25/2023 11:59 PM EDT Hospital Encounter [facility] [address] [place] [address] Dyslipidemia associated with type 2 diabetes mellitus (HCC); Vitamin D deficiency; Post-surgical hypothyroidism Discharge Disposition: Home or Self Care 05/25/2023 10:00 AM EDT Office Visit [facility] [address] [phone],LD Type 2 diabetes mellitus with hyperglycemia, with long-term current use of insulin (HCC) (Primary Dx) 05/19/2023 Refill [facility] [address] [address] Rojas Cunningham MD Medication Refill 04/30/2023 Refill [facility] [address] [address] Rojas Cunningham MD Medication Refill 04/23/2023 [facility]ty [facility] [address] [place] [address] Hyacinth Mancilla [facility] Hyperlipidemia Management (Repatha ) 03/29/2023 2:40 PM EDT Office Visit [facility] [address] [place] [phone] Rojas Cunningham MD Dyslipidemia associated with type 2 diabetes mellitus (HCC) (Primary Dx); Post-surgical hypothyroidism; Vitamin D deficiency 03/27/2023 [facility]ty [facility] [address] [place] [address] Hyacinth Mancilla [facility] Hyperlipidemia Management (Repatha ) 03/20/2023 Travel 03/20/2023 12:10 PM EDT - 03/20/2023 11:59 PM EDT Hospital Encounter [facility] [address] [place] [address] Dyslipidemia associated with type 2 diabetes mellitus (HCC); Vitamin D deficiency; Post-surgical hypothyroidism Discharge Disposition: Home or Self Care 03/20/2023 1:00 PM EDT Office Visit [facility] [address] [phone],CDE Type 2 diabetes mellitus with hyperglycemia, with long-term current use of insulin (HCC) (Primary Dx) 03/14/2023 Telephone [facility] [address] [address] Rojas Cunningham MD Blood Sugar Problem 03/07/2023 Telephone [facility] [address] [facility] [address] [place] [phone] Rojas Cunningham MD Labs Only 03/06/2023 Telephone [facility] 1500 [facility] [address] [place] [phone] Rojas Cunningham MD CGMS Interpretation (Milagro Report/Hyperglycemia) 02/14/2023 Telephone [facility] 1500 [facility] [address] [place] [phone] Rojas Cunningham MD Patient Education 02/05/[address] [place], [place] [phone] Rojas Cunningham MD Medication Refill 02/02/[address] [place], [place] [phone] Rojas Cunningham MD Symptom Call; Appointment Needed; Lab Orders 01/12/[address] [place], [place] [address] Rojas Cunningham MD Medication Refill 12/21/2022 [facility]ty [facility] [address] [place] [id number] Kerrie Almodovar, [facility] Hyperlipidemia Management (Repatha) 11/28/2022 Telephone [facility] 1500 [facility] [address] [place] [address] Rojas Cunningham MD Glucose Monitoring 11/28/2022 [facility]ty [facility] [address] [place] [id number] Starr Ceja, [facility] Pharmacy Hyperlipidemia Management; Pharmacy Initial Assessment (Repatha) 11/28/[address] [place], [place] [phone] Rojas Cunningham MD CGMS Interpretation (Milagro) 11/24/2022 [facility]ty [facility] [address] [place] [address] Ashley Ambrosio, [facility] Hyperlipidemia Management (Repatha) 11/23/2022 [facility]ty [facility] [address] [place], [place] [id number] Gerardo Hdz, [facility] Pharm[facility] Hyperlipidemia Management (Praluent) 11/23/2022 Orders Only [place] [address] [employer] [facility] [address] [place], [place] [phone] Michaelle Garcia LPN Dyslipidemia associated with type 2 diabetes mellitus (HCC); Hyperlipidemia associated with type 2 diabetes mellitus (HCC) 11/16/2022 Refill [facility] [address] [employer] [address] [place] [address] Rojas Cunningham MD Medication Refill 11/15/2022 Telephone [facility] [address] [place] [address] Rojas Cunningham MD Prior Authorization (Milagro-DME) 11/14/2022 7:50 AM EST Office Visit [facility] [address] [place] [address] Rojas Cunningham MD Dyslipidemia associated with type 2 diabetes mellitus (HCC) (Primary Dx); Post-surgical hypothyroidism; Vitamin D deficiency 11/07/2022 Telephone [facility] [address] [employer] [address] [address] Rojas Cunningham MD Labs Only 10/30/2022 Refill [facility] [address] [address] [place] [phone] Rojas Cunningham MD Medication Refill; Central Patient Navigator Outreach (med refills 2nd ) 10/01/2022 Refill [facility] [address] [place] [phone] Rojas Cunningham MD Medication Refill 08/15/2022 Telephone [facility] [address] [place] [phone] Rojas Cunningham MD Cancellation 08/06/2022 Refill [facility] [address] [place], [place] [address] Rojas Cunningham MD Medication Refill; Labs Only 07/10/2022 Telephone [facility] [address] [place], [place] [address] Rojas Cunningham MD Symptom Call 06/29/2022 Refill [facility] [address] [employer] [address] [place], [place] [address] Rojas Cunningham MD Medication Refill 06/23/2022 Refill [facility] [address] [place] [phone] Rojas Cunningham MD Medication Refill 06/19/2022 Refill [facility] [address] [employer] [address] [place], [place] [address] Rojas Cunningham MD Medication Refill 06/13/2022 Refill [facility] [address] [place] [phone] Rojas Cunningham MD Medication Refill 06/01/2022 Refill [facility] [address] [place] [phone] Rojas Cunningham MD Medication Refill 05/09/2022 12:50 PM EDT Office Visit [facility] [address] [facility] [address] [place] [phone] Rojas Cunningham MD Dyslipidemia associated with type 2 diabetes mellitus (HCC) (Primary Dx); Post-surgical hypothyroidism 05/04/2022 Telephone [facility] [address] [employer] [facility] [address] [place] [phone] Rojas Cunningham MD Labs Only 03/10/2022 Refill [facility] 1500 [facility] [place] [facility] [address] [place] [phone] Rojas Cunningham MD Medication Refill 02/15/2022 Refill [facility] 1500 [facility] [place] [facility] [address] [place] [phone] Rojas Cunningham MD Medication Refill 02/02/2022 1:20 PM EDT Office Visit [facility] 1500 [facility] [place] [facility] [address] [place], [place] [address] Rojas Cunningham MD Dyslipidemia associated with type 2 diabetes mellitus (HCC) (Primary Dx); Post-surgical hypothyroidism; Follicular thyroid cancer (HCC); Vitamin D deficiency 12/06/2021 Refill [facility] 1500 [facility] [place] [facility] [address] [place] [phone] Rojas Cunningham MD Medication Refill 12/01/2021 1:10 PM EST Office Visit [facility] 1500 [facility] [place] [facility] [address] [place] [phone] Rojas Cunningham MD Dyslipidemia associated with type 2 diabetes mellitus (HCC) (Primary Dx); Vitamin D deficiency; Post-surgical hypothyroidism; Follicular thyroid cancer (HCC) 11/16/2021 Refill [facility] [address] [facility] [address] [place] [phone] Rojas Cunningham MD Medication Refill 11/12/2021 Refill [facility] [address] [employer] [facility] [address] [place] [address] Rojas Cunningham MD Medication Refill 11/04/2021 Refill [facility] [address] [facility] [address] [place] [address] Rojas Cunningham MD Medication Refill; Appointment Needed 10/21/2021 Telephone [facility] [address] [facility] [address] [place] [address] Rojas Cunningham MD Other (Antibodies); Cancellation 10/18/[address] [facility] [address] [place] [address] Rojas Cunningham MD Labs Only 09/12/2021 Telephone [facility] [address] [employer] [address] [place] [address] Rojas Cunningham MD Reschedule 09/06/2021 Telephone [facility] [address] Rojas Cunningham MD Labs Only 09/05/2021 Telephone [facility] [address] [employer] [address] [place] [address] Rojas Cunningham MD Labs Only 08/12/2021 Refill [facility] [address] [employer] [address] [place] [phone] Rojas Cunningham MD Medication Refill 07/29/2021 Travel 07/29/2021 11:00 AM EDT Office Visit [facility] [address] [facility] [address] [place] [address] Willa Horton LPN Dyslipidemia associated with type 2 diabetes mellitus (HCC) (Primary Dx); Diabetic autonomic neuropathy associated with type 2 diabetes mellitus (HCC) 07/25/2021 Refill [facility] [address] [place] [phone] Rojas Cunningham MD Medication Refill (Milagro 14 days sensor) 07/15/2021 Travel 07/15/2021 11:00 AM EDT Office Visit [facility] 1500 [facility] [place] [employer] [address] [place] [address] Willa Horton LPN Uncontrolled type 2 diabetes mellitus with complication (HCC) (Primary Dx) 07/12/2021 Telephone [facility] [address] [employer] [address] [place] [phone] Rojas Cunningham MD Other (Milagro 2) 07/01/2021 Refill [facility] [address] [employer] [address] [place] [phone] Rojas Cunningham MD Medication Refill 06/09/2021 Telephone [facility] [address] [employer] [address] [place] [phone] Rojas Cunningham MD Results 06/06/2021 Travel 06/06/2021 12:00 PM EDT Office Visit [facility] [address] [employer] [address] [place] [phone] Rojas Cunningham MD Dyslipidemia associated with type 2 diabetes mellitus (HCC) (Primary Dx); Vitamin D deficiency; Statin intolerance 06/04/2021 Refill [facility] [address] [employer] [address] [place] [phone] Rojas Cunningham MD Medication Refill 05/30/2021 Telephone [facility] [address] [employer] [address] [place] [phone] Rojas Cunningham MD Labs Only 05/19/2021 Refill [facility] [address] [facility] [address] [place], [place] [address] Rojas Cunningham MD Medication Refill 05/06/2021 Refill [facility] [address] Rojas Cunningham MD Medication Refill 04/14/2021 Travel 04/14/2021 11:30 AM EDT Office Visit [facility] [address] Willa Horton LPN Uncontrolled type 2 diabetes mellitus with complication (HCC) (Primary Dx) 04/14/2021 Telephone [facility] [address] [place] [address] Rojas Cunningham MD CGMS Interpretation (Personal Milagro 2 download) 04/12/2021 [facility]ty [facility] [address] [place], [place] [id number] Starr Ceja [facility] Pharm[facility] Hyperlipidemia Management 03/22/[address] [place] [address] Rojas Cunningham MD Prior Authorization 03/17/2021 Telephone [facility] [address] [place] [address] Rojas Cunningham MD Glucose Monitoring 03/04/2021 Travel 03/04/2021 4:15 PM EDT Office Visit [facility] [address] [place] [address] Willa Horton LPN Uncontrolled type 2 diabetes mellitus with complication (HCC) (Primary Dx) 03/04/2021 Telephone [facility] [address] [facility] [address] [place] [phone] Rojas Cunningham MD CGMS Interpretation (Personal Milagro 2 download) 02/23/2021 Telephone [facility] [address] [facility] [address] [place] [address] Rojas Cunningham MD CGMS Interpretation (Milagro 2) 02/23/2021 Telephone [facility] 1500 [facility] [address] [place] [address] Rojas Cunningham MD Blood Sugar Problem 02/08/2021 Travel 02/08/2021 11:00 AM EDT Office Visit [facility] [address] [place] [address] Willa Horton LPN Uncontrolled type 2 diabetes mellitus with complication (HCC) (Primary Dx) 02/04/2021 [facility]ty [facility] [address] [place] [address] Starr Ceja, [facility] Pharmacy Hyperlipidemia Management; Pharmacy Initial Assessment 02/04/2021 Telephone [facility] 1500 [facility] [address] [place] [address] Rojas Cunningham MD Schedule Appointment 02/03/2021 [facility] [address] [place] [address] Ck Landaverde, [facility] Pharm[facility] Hyperlipidemia Management 02/03/2021 Travel 02/03/2021 12:50 PM EDT Office Visit [facility] 1500 [facility] [address] [place] [address] Rojas Cunningham MD Dyslipidemia associated with type 2 diabetes mellitus (HCC) (Primary Dx); Post-surgical hypothyroidism; Vitamin D deficiency 02/01/2021 Telephone [facility] 1500 [facility] [address] [place], [place] [phone] Rojas Cunningham MD Labs Only 01/25/2021 Telephone [facility] 1500 [facility] [address] [place], [place] [phone] Rojas Cunningham MD Labs Only 01/03/2021 Refill [facility] [address] [address] Rojas Cunningham MD Medication Refill 11/17/2020 Telephone [facility] [address] [facility] [address] [place] [phone] Rojas Cunningham MD Symptom Call 11/16/2020 [facility] [address] [place] [phone] Jael Baker [facility] Hyperlipidemia Management (Praluent Refill) 10/28/2020 Travel 10/28/2020 1:00 PM EST Office Visit [facility] [address] [place] [phone] Rojas Cunningham MD Dyslipidemia associated with type 2 diabetes mellitus (HCC) (Primary Dx); Post-surgical hypothyroidism; Follicular thyroid cancer (HCC); Vitamin D deficiency 10/26/2020 [facility]ty [facility] [address] [place] [phone] Jael Baker [facility] Hyperlipidemia Management (Praluent Refill) 10/20/2020 Telephone [facility] [address] [place] [phone] Rojas Cunningham MD Labs Only 09/29/2020 [facility] [address] [place] [address] Little Cruz [facility] Hyperlipidemia Management 09/08/2020 [facility] [address] [place] [address] Khushi Watson [facility] Hyperlipidemia Management 08/19/2020 Refill [facility] [address] [facility] [address] [place] [phone] Rojas Cunningham MD Medication Refill 08/11/[address] [address] Rojas Cunningham MD Medication Refill 08/09/2020 [facility]ty [facility] [address] [place] [address] Yanick Wilks [facility]PhT Pharmacy Hyperlipidemia Management (Praluent) 08/09/[address] [address] Rojas Cunningham MD Medication Refill 07/19/2020 [facility] [address] [place] [address] Yanick Wilks [facility]PhT Pharmacy Hyperlipidemia Management (Praluent) 07/15/2020 Travel 07/15/2020 1:50 [place] [address] Rojas Cunningham MD Dyslipidemia associated with type 2 diabetes mellitus (HCC) (Primary Dx); Post-surgical hypothyroidism; Vitamin D deficiency; Follicular thyroid cancer (HCC) 07/05/2020 Telephone [place] [phone] Rojas Cunningham MD Labs Only 06/23/2020 [facility]ty [facility] [address] [place] [phone] Jael Baker [facility] Pharmacy Hyperlipidemia Management (Praluent) 06/22/[address] [address] Rojas Cunningham MD Other (Office Notes) 06/02/2020 [facility] [address] [place] [address] Yanick Wilks [facility] Pharmacy Hyperlipidemia Management (Praluent) 05/10/2020 [facility] [address] [place] [address] Trisha Alexander, [facility] Hyperlipidemia Management (Praluent refill ) 04/12/2020 Travel 04/12/2020 10:30 AM EDT - 04/12/2020 11:59 PM EDT Hospital Encounter [facility] [address] [place], [place] [phone] [facility], [place] [facility] Bilateral carpal tunnel syndrome (Primary Dx) Discharge Disposition: Home or Self Care 03/29/2020 Telephone [facility] [address] [employer] [address] [phone] Rojas Cunningham MD Diabetes (Dexcom Information ) 03/29/2020 Orders Only [facility] [address] [place] [address] Michael Verdin MD Carpal tunnel syndrome, bilateral (Primary Dx) 2020 Travel 2020 [facility]ty [facility] [address] [place] [address] Trisha Alexander, [facility] Hyperlipidemia Management (Praluent refill ) 2020 9:50 AM EDT [facility] [facility] [address] [phone] Rojas Cunningham MD Dyslipidemia associated with type 2 diabetes mellitus (HCC) (Primary Dx); Post-surgical hypothyroidism; Follicular thyroid cancer (HCC); Vitamin D deficiency 03/17/2020 Telephone [facility] [address] [address] Rojas Cunningham MD Other (Office Visit Reminder) 03/09/2020 Telephone [facility] [address] [address] Rojas Cunningham MD Reschedule (03/18/20 appointment) 03/08/[address] [facility] [address] [address] Rojas Cunningham MD Lab Orders 02/23/2020 [facility]ty [facility] [address] [place] [address] Yanick Wilks [facility] Hyperlipidemia Management (Praluent) 02/18/2020 [place] [address] Rojas Cunningham MD Medication Refill 01/22/2020 [facility]ty [facility] [address] [place] [address] Yanick Wilks [facility] Hyperlipidemia Management (Praluent refill) 01/21/2020 [place] [address] Belia Spence APRN Medication Refill 12/26/2019 Specialty [facility] [address] [place] [address] Yanick Wilks [facility] Hyperlipidemia Management (Praluent refill) 12/25/2019 Travel 12/05/2019 Specialty Pharmacy [facility] [address] [place] [address] Yanick Wilks [facility] Pharmacy Hyperlipidemia Management (Praluent refill) 11/17/2019 Refill [place] [phone] Rojas Cunningham MD Medication Refill 11/13/2019 Specialty Pharmacy [facility] [address] [place] [address] Esteban Flores, [facility] Hyperlipidemia Management 11/13/2019 Specialty Pharmacy [facility] [address] [place] [address] Starr Ceja, [facility] Pharm[facility] Hyperlipidemia Management; Pharmacy Initial Assessment 10/31/2019 Telephone [place] [address] [facility] [address] [place] [phone] Rojas Cunningham MD Labs Only (Genetic Testing for FH ) 10/13/2019 Specialty Pharmacy [facility] [address] [place], [place] [address] Esteban Flores, [facility] Hyperlipidemia Management 10/13/2019 1:40 PM EST Office Visit [facility] [address] [facility] [address] [place] [phone] Rojas Cunningham MD Dyslipidemia associated with type 2 diabetes mellitus (HCC) (Primary Dx); Post-surgical hypothyroidism; Follicular thyroid cancer (HCC); Vitamin D deficiency 10/02/2019 Telephone [facility] [address] [facility] [address] [place] [phone] Rojas Cunningham MD Labs Only 09/16/2019 Refill [facility] [address] [facility] [address] [place] [phone] Belia Spence APRN Medication Refill 08/08/2019 Refill [facility] [address] [facility] Farmer [facility] [address] [place] [phone] Belia Spence APRN Medication Refill 07/02/2019 1:40 PM EDT Office Visit [facility] [address] [place] [phone] Rojas Cunningham MD Dyslipidemia associated with type 2 diabetes mellitus (HCC) (Primary Dx); Post-surgical hypothyroidism 06/23/2019 Telephone [facility] [address] [place] [address] Rojas Cunningham MD Labs Only 06/23/2019 Telephone [facility] [address] [place] [phone] Rojas Cunningham MD Labs Only 05/29/2019 Telephone [facility] [address] [employer] [address] [place] [address] Rojas Cunningham MD Labs Only 05/16/2019 Telephone [facility] [address] [place] [address] Rosy Farmer CCMA Other (accreditation) 03/04/2019 1:00 PM EDT Office Visit [facility] [address] [employer] [address] [place], [place] [phone] Belia Spence APRN Uncontrolled type 2 diabetes mellitus with complication (HCC) (Primary Dx); Post-surgical hypothyroidism; Follicular thyroid cancer (HCC); Diabetic autonomic neuropathy associated with type 2 diabetes mellitus (HCC); Mixed dyslipidemia; Vitamin D deficiency; Statin intolerance; Essential hypertension; Sleep apnea, unspecified type; MEIER (nonalcoholic steatohepatitis) 02/27/2019 Telephone [facility] [address] [employer] [address] [place], [place] [address] Belia Spence APRN Labs Only 01/30/2019 Telephone [facility] [address] [employer] [address] [place], [place] [address] Rojas Cunningham MD Glucose Monitoring (01/17/19-01/29/19) 01/29/2019 Telephone [facility] [address] [employer] [address] [place], [place] [address] Rojas Cunningham MD CGMS Interpretation (Milagro Pro) 01/29/2019 1:00 PM EDT Office Visit [facility] [address] [employer] [address] [place] [phone] Uncontrolled type 2 diabetes mellitus with complication (HCC) (Primary Dx) 01/16/2019 2:30 PM EDT Office Visit [facility] [address] [place] [phone] Rojas Cunningham MD Dyslipidemia associated with type 2 diabetes mellitus (HCC) (Primary Dx); Post-surgical hypothyroidism; Follicular thyroid cancer (HCC); Statin intolerance; Vitamin D deficiency 01/08/2019 Telephone [facility] [address] [place] [address] Rojas Cunningham MD Labs Only 01/08/2019 Refill [facility] [address] [facility] [address] [place] [address] Boy Brown MD Medication Refill 01/07/2019 Patient Outreach [facility] [address] [place] [address] Maranda Jorgensen, TEAM ASSEMBLER Referral Follow-up 12/27/2018 Telephone [facility] [address] [place] [address] Belia Spence APRN Glucose Monitoring (11/21/18-12/24/18) 11/22/2018 Telephone [facility] [address] [place] [address] Rojas Cunningham MD Diabetes (Milagro due ) 11/22/2018 3:00 PM EST Office Visit [facility] [address] [place] [address] Willa Garcia RN Uncontrolled type 2 diabetes mellitus with complication (HCC) (Primary Dx) 11/21/2018 Refill [facility] [address] [place] [address] Rojas Cunningham MD Medication Refill 11/20/2018 Social Work [facility] [address] [place] [address] Jigna Dove, MALCOLM Referral Follow-up 11/20/2018 Patient Outreach [facility] [address] [place] [address] Sherrie Khan, manager of data 11/20/2018 1:50 PM EST Office Visit [facility] [address] [place] [phone] Rojas Cunningham MD Dyslipidemia associated with type 2 diabetes mellitus (HCC) (Primary Dx); Post-surgical hypothyroidism 11/14/2018 Telephone [facility] [address] [place] [phone] Rojas Cunningham MD Labs Only 11/13/2018 Telephone [facility] [address] [place], [place] [address] Belia Spence APRN Labs Only 10/16/2018 Telephone [facility] [address] [place], [place] [address] Rojas Cunningham MD Reschedule (10/24/18 appointment) 09/03/2018 Telephone [facility] [address] [place], [place] [address] Belia Spence APRN Medication Refill 08/12/2018 Telephone [facility] [address] [place], [place] [address] Rojas Cunningham MD Paperwork/forms (Office Notes) 07/22/2018 Telephone [facility] [address] [place] [address] Rosy Farmer, MIRACLEA Results 07/22/2018 Telephone [facility] [address] [place] [address] Nguyen Hays, CCMA Results 07/19/2018 10:20 AM EDT Office Visit [facility] [address] [place] [phone] Belia Spence APRN Uncontrolled type 2 [...] PM EDT Hospital Encounter [facility] [address] [facility] [place] [address] S/P laparoscopic sleeve gastrectomy; Postsurgical malabsorption; Encounter for vitamin deficiency screening Discharge Disposition: Home or Self Care 07/05/2018 11:15 AM EDT Office Visit [facility] [address] [place] [address] Lauren Fraser APRN S/P laparoscopic sleeve gastrectomy (Primary Dx); Vitamin D deficiency; Uncontrolled type 2 diabetes mellitus with complication, with long-term current use of insulin (HCC); Mixed dyslipidemia; Gastroesophageal reflux disease without esophagitis; Postsurgical malabsorption; Encounter for vitamin deficiency screening 06/12/2018 Telephone [facility] [address] [facility] [address] [place], [place] [address] Rojas Cunningham MD Labs Only 05/07/2018 Telephone [facility] [address] [facility] [address] [place] [phone] Belia Spence APRN Reschedule 05/03/2018 Telephone [facility] [address] [place] [phone] Rojas Cunningham MD Labs Only 04/15/2018 Telephone [facility] [address] [place] [phone] Rojas Cunningham MD Reschedule 04/03/2018 Refill [facility] [address] [place] [address] Gila Winter APRN Medication Refill 02/18/2018 Telephone [place] [phone] Rojas Cunningham MD Lab Orders 01/22/2018 Telephone [facility] [address] [place] [address] Fernando, Marielos Belem Mcfadden, RMA Results 01/07/2018 Telephone [facility] [address] [place] [address] Fernando, January Belem [facility], RMA Results 01/02/2018 8:49 AM EDT - 01/02/2018 11:59 PM EDT Hospital Encounter [facility] [address] [place] [address] Follicular thyroid cancer (HCC); Post-surgical hypothyroidism; Uncontrolled type 2 diabetes mellitus with complication, with long-term current use of insulin (HCC); S/P laparoscopic sleeve gastrectomy; Hypocalcemia Discharge Disposition: Home or Self Care 01/02/2018 10:00 AM EDT Office Visit [facility] [address] [address] Boy Brown MD Type 2 diabetes mellitus without retinopathy (HCC) (Primary Dx); KCS (keratoconjunctivitis sicca) (HCC); Contact dermatitis of right eyelid; Refractive error 12/27/2017 Telephone [facility] [address] [address] Rojas Cunningham MD Medication Refill 12/20/2017 Telephone [facility] [address] [phone] Rojas Cunningham MD Samples 12/10/2017 2:15 PM EST Office Visit [facility] [address] [place] [address] Gila Winter APRN Class 2 [...] disease, esophagitis presence not specified 12/06/2017 Telephone [place] [address] [employer] [address] [place] [address] Rojas Cunningham MD Results 12/03/[address] [employer] [facility] [address] Rojas Cunningham MD Results 11/29/2017 2:40 PM EST Office Visit [place] [address] [employer] [facility] [place] [address] Rojas Cunningham MD Uncontrolled type 2 diabetes mellitus with complication, with long-term current use of insulin ([facility]) (Primary Dx); Post-surgical hypothyroidism; Follicular thyroid cancer (HCC); Mixed dyslipidemia; Vitamin D deficiency 11/20/2017 Telephone [place] [address] [place] [address] Rojas Cunningham MD Glucose Monitoring (BSL ) 11/19/2017 Telephone [facility] [address] [place] [address] Rojas Cunningham MD Lab Orders 10/26/2017 Telephone [facility] [address] [employer] [address] Rojas Cunningham MD Results 10/26/2017 Orders Only [place] [address] [employer] [address] Rojas Cunningham MD Uncontrolled type 2 diabetes mellitus with complication, with long-term current use of insulin (HCC) (Primary Dx); Post-surgical hypothyroidism; Follicular thyroid cancer (HCC); Mixed dyslipidemia 10/24/2017 11:30 AM EST - 10/24/2017 11:59 PM EST Hospital Encounter [facility] [address] [place] [address] [address] [place] [address] Dyslipidemia associated with type 2 diabetes mellitus (HCC); Vitamin D deficiency; Post-surgical hypothyroidism Discharge Disposition: Home or Self Care 10/24/2017 10:50 AM EST Office Visit [address] Farmer [place] [address] Rojas Cunningham MD Uncontrolled type 2 diabetes mellitus with complication, with long-term current use of insulin (HCC) (Primary Dx); Post-surgical hypothyroidism; Mixed dyslipidemia; Vitamin D deficiency 10/22/2017 Telephone [place] [address] [address] [place] [address] Rojas Cunningham MD Reschedule 10/10/2017 Telephone [place] [address] Rojas Cunningham MD Samples 09/22/2017 Refill [place] [address] Rojas Cunningham MD Medication Refill 09/12/2017 Telephone [facility] [address] [place] [address] Rojas Cunningham MD Glucose Monitoring (Milagro inserted) 09/12/2017 Refill [facility] [address] [place] [address] Gila Winter APRN Medication Refill 09/12/2017 1:30 PM EST Office Visit [address] [place] [phone] Rojas Cunningham MD Dyslipidemia associated with type 2 diabetes mellitus (HCC) (Primary Dx); Follicular thyroid cancer (HCC); Post-surgical hypothyroidism; Vitamin D deficiency 09/07/2017 Telephone [facility] [address] [facility] [address] [place] [address] Rojas Cunningham MD Glucose Monitoring (BSL) 08/28/2017 Telephone [facility] [address] [facility] [address] [place] [address] Rojas Cunningham MD Glucose Monitoring (BSL) 08/28/2017 10:30 AM EST Office Visit [facility] [address] [place] [address] Gila Winter APRN Class 2 obesity due [...] [facility] [address] [place] [address] Gila Winter APRN Medication Refill (Carafate) 08/03/2017 Telephone [facility] [address] [place] [address] Boy Brown MD Medication Change 08/03/2017 10:15 AM EDT Office Visit [facility] [address] [phone] Boy Brown MD Contact dermatitis of right eyelid (Primary Dx); Allergic conjunctivitis of both eyes 08/02/2017 1:10 PM EDT Office Visit [facility] [address] [employer] [facility] [address] [place] [address] Rojas Cunningham MD Dyslipidemia associated with type 2 diabetes mellitus (HCC) (Primary Dx); Post-surgical hypothyroidism; Vitamin D deficiency 07/10/2017 Telephone [facility] [address] [place], [place] [address] Rojas Cunningham MD Results ([facility]) 07/10/2017 2:00 PM EDT Office Visit [facility] [address] [place] [address] Jose Venegas, FREDDY Obesity, Class II, BMI 35-39.9, with comorbidity (Primary Dx) 07/03/2017 1:40 PM EDT Office Visit [facility] [address] [place], [place] [address] Rojas Cunningham MD Dyslipidemia associated with type 2 diabetes mellitus (HCC) (Primary Dx); Vitamin D deficiency 07/03/2017 11:15 AM EDT Office Visit [facility] [address] [place] [address] Gila Winter APRN Class 2 [...] disease, esophagitis presence not specified 06/29/2017 Telephone [facility] [address] [place] [phone] Rojas Cunningham MD Medication Management 06/27/2017 Telephone [facility] [address] [place] [phone] Rojas Cunningham MD Lab Orders 06/22/2017 Telephone [facility] [address] [place] [phone] Rojas Cunningham MD Glucose Monitoring 06/22/2017 Telephone [facility] [address] [facility] [address] [place] [address] Rojas Cunningham MD Samples 06/21/2017 Telephone [facility] [address] [place] [address] Rosy Farmer CCMA Visit Follow Up (results) 06/21/2017 Telephone [facility] [address] [facility] [address] [place] [phone] Rojas Cunningham MD Medication Management 06/19/2017 Telephone [facility] [address] [employer] [address] [place] [phone] Rojas Cunningham MD Diabetes (High blood sugars) 06/14/2017 1:35 PM EDT - 06/14/2017 11:59 PM EDT Hospital Encounter [facility] [address] [place] [address] Leg cramps; Thiamine deficiency; S/P laparoscopic sleeve gastrectomy; Postsurgical malabsorption Discharge Disposition: Home or Self Care 06/14/2017 1:00 PM EDT Office Visit [facility] [address] [place] [address] Lauren Fraser APRN Leg cramps (Primary Dx); Thiamine deficiency; S/P laparoscopic sleeve gastrectomy; Postsurgical malabsorption; Essential hypertension; Uncontrolled type 2 diabetes mellitus with complication, with long-term current use of insulin (HCC); Sleep apnea, unspecified type 06/08/2017 Telephone [facility] [address] [place] [address] Marielos King RMA Results (Lab results ) 06/06/2017 1:50 PM EDT - 06/06/2017 11:59 PM EDT Hospital Encounter [facility] [address] [place] [address] Fever, unspecified fever cause; Cough; History of sleeve gastrectomy; Platelet inhibition due to Plavix Discharge Disposition: Home or Self Care 06/06/2017 1:15 PM EDT Office Visit [facility] [address] [place] [address] Gila Winter, ANJANA Fever, unspecified fever cause (Primary Dx); Cough; History of sleeve gastrectomy; Platelet inhibition due to Plavix; Gastroesophageal reflux disease, esophagitis presence not specified; Diarrhea of presumed infectious origin; Uncontrolled type 2 diabetes mellitus with complication, with long-term current use of insulin ([facility]); Class 2 obesity due to excess calories with serious comorbidity and body mass index (BMI) of 39.0 to 39.9 in adult; Mixed dyslipidemia; Essential hypertension; Sleep apnea, unspecified type; H/O heart artery stent; S/P laparoscopic sleeve gastrectomy 05/30/2017 7:47 AM EDT - 05/31/2017 3:22 PM EDT Hospital Encounter [facility] [address] [place] [address] Roxie Choi MD Discharge Disposition: Home or Self Care 05/30/2017 10:15 AM EDT - 05/30/2017 12:00 PM EDT Surgery [facility] [address] [place] [address] Roxie Choi MD LAPAROSCOPIC SLEEVE GASTRECTOMY POSSIBLE LAPAROSCOPIC HIATAL HERNIA REPAIR 05/30/2017 9:56 AM EDT Anesthesia Event [facility] [address] [place] [address] Mat Martinez MD Zehnder, Wende, ANJANA 05/23/2017 11:12 AM EDT - 05/23/2017 11:59 PM EDT Hospital Encounter [facility] [address] [place] [address] Pat, [facility] Preop testing (Primary Dx); Morbid obesity due to excess calories (HCC) Discharge Disposition: Home or Self Care 05/22/2017 Telephone [facility] [address] [place] [address] Rosy Farmer CCMA Visit Follow Up 05/21/2017 1:30 PM EDT Office Visit [facility] [address] [place] [address] Gila Winter APRN 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, unspecified vessel [...] Visit [facility] [address] [place] [address] Ara Horn, RD,CDE Morbid obesity with BMI of 40.0-44.9, adult (HCC) (Primary Dx) 05/17/2017 11:00 AM EDT Office Visit [facility] [address] [place] [address] [place] [phone] Emre Houston MD Sleep apnea, unspecified [...] BMI of 40.0-44.9, adult (HCC) 05/11/[address] [place] [address] Rojas Cunningham MD Other 05/08/2017 Orders Only [facility] [address] [place] [address] Gila Winter APRN Vitamin deficiency (Primary Dx) 05/08/2017 Telephone [facility] [address] [place] [address] Evi Jones, Clerical Staff Other 05/03/2017 Telephone [facility] [address] [facility] [place] [address] Urmila Massey Other 05/03/2017 8:30 AM EDT Office Visit [facility] [address] [place] [address] Morbid obesity due to excess calories (HCC) (Primary Dx) 05/03/2017 11:00 AM EDT Office Visit [facility] [address] [facility] [place] [address] Ara Horn, RD,CDE Morbid obesity, unspecified obesity type (HCC) (Primary Dx); Morbid obesity with BMI of 40.0-44.9, adult (HCC) 04/26/2017 Telephone [facility] [address] [employer] [facility] [address] [place], [place] [address] Rojas Cunningham MD Other (DM Shoes ) 04/18/2017 2:00 PM EDT Office Visit [facility] [address] [place] [address] Roxie Choi MD Morbid obesity with BMI of 40.0-44.9, adult (HCC) (Primary Dx) 04/16/2017 4:30 PM EDT Office Visit [facility] [address] [place] [address] Morbid obesity due to excess calories (HCC) (Primary Dx) 04/06/2017 Telephone [facility] [address] [employer] [address] [place] [phone] Rojas Cunningham MD Other (U-500 patient) 04/03/2017 9:00 AM EDT Office Visit [facility] [address] [place] [address] Gila Winter APRN Morbid obesity [...] PM EDT Hospital Encounter [facility] [address] [place] [address] Morbid obesity due to excess calories (HCC); Weight gain Discharge Disposition: Home or Self Care 03/30/2017 9:00 AM EDT Office Visit [facility] [address] [place] [address] Vika Hunter, PHD Other specified eating disorder (Primary Dx); Major depressive disorder, recurrent episode, in partial remission; Generalized anxiety disorder; No diagnosis on Gary II; Morbid obesity due to excess calories (HCC); BMI 40.0-44.9, adult ([facility]) 03/26/2017 Telephone [facility] [address] [place] [address] FernandoJanuary TERESITA Burton Visit Follow Up (lab results) 03/19/2017 4:30 PM EDT Office Visit [facility] [address] [place] [address] Obesity (BMI 30-39.9) (Primary Dx) 03/13/2017 Orders Only [facility] [address] [place] [address] Gila Winter APRN Morbid obesity due to excess calories (HCC) (Primary Dx); Weight gain 03/12/2017 5:55 PM EDT - 03/12/2017 11:59 PM EDT Hospital Encounter [facility] [address] [place] [address] Weight gain; SATYA (obstructive sleep [...] Disposition: Home or Self Care 03/12/2017 Telephone [facility] [address] [place] [phone] Rojas Cunningham MD Medication Management 03/12/2017 4:30 PM EDT Office Visit [facility] [address] [place] [address] Weight gain (Primary Dx) 03/06/2017 Telephone [facility] [address] [place] [phone] Rojas Cunningham MD Glucose Monitoring 03/06/2017 Telephone [facility] [address] [place] [phone] Rojas Cunningham MD Labs Only (question about labs) 03/06/2017 9:30 AM EDT Office Visit [facility] [address] [place] [address] Gila Winter APRN Weight gain [...] Hypocalcemia 03/06/2017 11:10 AM EDT Office Visit [facility] [address] [place] [address] Rojas Cunningham MD Uncontrolled type 2 diabetes mellitus without complication, with long-term current use of insulin (HCC) (Primary Dx); Vitamin D deficiency; Post-surgical hypothyroidism 01/31/2017 4:00 PM EDT Office Visit [facility] [address] [place] [address] Gila Winter, [employer] History of weight gain (Primary Dx); Morbid obesity due to excess calories (HCC); BMI 40.0-44.9, adult (HCC) 01/26/2017 6:00 PM EDT Office Visit [facility] [address] [place] [phone] Morbid obesity due to excess calories ([facility]) 01/26/2017 Telephone [facility] [address] [place] [address] Urmila Massey Other 01/26/2017 10:10 AM EDT Office Visit [facility] [address] [place] [address] Clif Granado MD Uncontrolled type 2 diabetes mellitus with complication, with long-term current use of insulin ([facility]) (Primary Dx); Sleep apnea, unspecified type; Morbid obesity due to excess calories ([facility]) 01/08/2017 Refill [facility] [address] [place] [address] Rojas Cunningham MD Medication Refill 01/02/2017 Telephone [facility] [address] [place], [place] [phone] Belia Spence APRN Results 11/27/2016 Telephone [facility] [address] [place] [phone] Belia Spence APRN Results (labs) 11/27/2016 1:20 PM EST Office Visit [facility] [address] Belia Spence APRN Mixed dyslipidemia (Primary Dx); Uncontrolled type 2 diabetes mellitus with complication, with long-term current use of insulin (HCC); Post-surgical hypothyroidism; Follicular thyroid cancer (HCC); Essential hypertension; Sleep apnea, unspecified type; Vitamin D deficiency; Morbid obesity with BMI of 45.0-49.9, adult (HCC) 10/31/2016 Telephone [facility] [address] [place] [address] Rojas Cunningham MD Labs Only 10/31/2016 Refill [facility] [address] [place] [address] Rojas Cunningham MD Medication Refill 10/06/2016 Telephone [facility] [address] [place] [address] Rojas Cunningham MD Cancellation 10/04/2016 Telephone [facility] [address] [place] [address] Rojas Cunningham MD Labs Only 08/28/2016 Telephone [facility] [address] [place] [address] Rojas Cunningham MD Results 08/22/2016 1:10 PM EST - 08/22/2016 11:59 PM EST Hospital Encounter [facility] [address] [place] [address] Uncontrolled type 2 diabetes mellitus without complication, with long-term current use of insulin (HCC); Vitamin D deficiency; Mixed dyslipidemia; Post-surgical hypothyroidism; Follicular thyroid cancer (HCC) Discharge Disposition: Home or Self Care 08/22/2016 12:20 PM EST Office Visit [facility] [address] [address] Rojas Cunningham MD Uncontrolled type 2 diabetes mellitus without complication, with long-term current use of insulin (HCC) (Primary Dx); Follicular thyroid cancer (HCC); Post-surgical hypothyroidism; Mixed dyslipidemia; Vitamin D deficiency; Statin intolerance 08/21/2016 Telephone [facility] [address] [facility] [address] [place] [address] Rojas Cunningham MD Labs Only 08/18/2016 Telephone [facility] [address] [place] [address] Rojas Cunningham MD Labs Only (Reminder) 08/03/2016 Telephone [facility] [address] [place] [address] Rojas Cunningham MD Results 07/25/2016 Telephone [facility] [address] [place] [address] Rojas Cunningham MD Results (Body Scan) 07/14/2016 6:35 AM EDT - 07/14/2016 11:59 PM EDT Hospital Encounter [facility] [address] [place] [address] Malignant neoplasm of thyroid gland (HCC) (Primary Dx); Follicular thyroid cancer (HCC) Discharge Disposition: Home or Self Care 07/13/2016 Telephone [facility] [address] [place] [address] Rojas Cunningham MD Medical Release 06/02/2016 Telephone [facility] [address] [place] [address] Rojas Cunningham MD Results 06/02/2016 Telephone [facility] [address] [place] [address] Rojas Cunningham MD Other (I-123 ) 05/29/2016 1:35 PM EDT - 05/29/2016 11:59 PM EDT Hospital Encounter [facility] [address] [place] [address] Diabetes mellitus type 2, uncontrolled (HCC); Vitamin D deficiency; Postablative hypothyroidism; History of thyroid cancer Discharge Disposition: Home or Self Care 05/29/2016 12:10 PM EDT Office Visit [facility] [address] [facility] [address] [place] [address] Rojas Cunningham MD Diabetes mellitus type 2, uncontrolled (HCC) (Primary Dx); Postablative hypothyroidism; History of thyroid cancer; Vitamin D deficiency 05/03/2016 Telephone [facility] [address] [facility] [address] [place] [address] Rojas Cunningham MD Cancellation 02/03/2016 Telephone [facility] [address] [facility] [address] [place] [address] Rojas Cunningham MD Other (paperwork for test strips) 01/19/2016 Refill [facility] [address] [facility] [address] [place] [address] Rojas Cunningham MD Medication Refill 01/19/2016 10:40 AM EDT Office Visit [facility] [address] [facility] [address] [place] [address] Rojas Cunningham MD Diabetes mellitus type 2, uncontrolled (HCC) (Primary Dx); Primary hypothyroidism; Vitamin D deficiency 01/10/2016 Telephone [facility] [address] [facility] [address] [place] [phone] Rojas Cunningham MD Labs Only 01/06/2016 Refill [facility] [address] [facility] [address] [place] [address] Rojas Cunningham MD Medication Refill 01/04/2016 Telephone [facility] [address] [place] [address] Rojas Cunningham MD Procedure 12/15/2015 Telephone [facility] [address] [place] [address] Rojas Cunningham MD Other 12/10/2015 Telephone [facility] [address] [place] [address] Rojas Cunningham MD Cancellation 11/04/2015 Telephone [facility] [address] [place] [address] Rojas Cunningham MD Other (approval for [facility]) 09/16/2015 Telephone [facility] [address] [place] [address] Rojas Cunningham MD Lab Orders 09/16/2015 Refill [facility] [address] [place] [address] Rojas Cunningham MD Medication Refill 09/16/2015 Refill [facility] [address] [place] [address] Rojas Cunningham MD Medication Refill 08/26/2015 Telephone [facility] [address] [place] [address] Rojas Cunningham MD Reschedule 07/15/2015 Telephone [facility] [address] [place] [address] Rojas Cunningham MD Medication Management 06/22/2015 2:50 PM EDT Office Visit [facility] [address] [place] [address] Rojas Cunningham MD Diabetes mellitus type 2, uncontrolled (HCC) (Primary Dx); Mixed dyslipidemia; Vitamin D deficiency 06/15/2015 Telephone [facility] [address] [place] [address] Rojas Cunningham MD Labs Only 05/12/2015 Telephone [facility] [address] [place] [address] Rojas Cunningham MD Reschedule; Labs Only 04/14/2015 Refill [place] [address] [employer] [address] [place] [address] Rojas Cunningham MD Medication Refill 02/09/2015 Telephone [place] [address] [employer] [address] [place] [address] Rojas Cunningham MD Other (questions re:scripts) 02/09/2015 1:40 PM EDT Office Visit [place] [address] [address] [employer] [address] [place] [address] Rojas Cunningham MD Diabetes mellitus type 2, uncontrolled (HCC) (Primary Dx); Mixed dyslipidemia; Thyroid nodule; Vitamin D deficiency; Statin intolerance 02/08/2015 Telephone [facility] [address] [place] [address] Rojas Cunningham MD Labs Only 02/02/2015 Telephone [facility] [address] [place] [address] Rojas Cunningham MD Lab Orders 02/01/2015 Telephone [facility] [address] [place] [address] Rojas Cunningham MD Labs Only 01/15/2015 Telephone [facility] [address] [place] [address] Rojas Cunningham MD Reschedule 12/11/2014 Telephone [facility] [address] [place] [phone] Rojas Cunningham MD Medication Refill 11/09/2014 Telephone [facility] [address] [place] [phone] Rojas Cunningham MD Glucose Monitoring (BG logs) 11/03/2014 Telephone [facility] [address] [place] [phone] Rojas Cunningham MD Medication Management 10/26/2014 Telephone [facility] [address] [place] [phone] Rojas Cunningham MD Results 10/20/2014 1:20 PM EST Office Visit [facility] [address] [place] [phone] Rojas Cunningham MD Diabetes mellitus type 2, uncontrolled (HCC) (Primary Dx); Mixed dyslipidemia; Thyroid nodule; Vitamin D deficiency 10/15/2014 Telephone [facility] [address] [place] [phone] Rojas Cunningham MD Labs Only 10/13/2014 Telephone [facility] [address] [place] [phone] Rojas Cunningham MD Lab Orders 10/09/2014 Telephone [facility] [address] [place] [phone] Rojas Cunningham MD Labs Only 07/24/2014 Telephone [facility] [address] [place] [address] Rojas Cunningham MD Medication Management (U500 - resume) 07/16/2014 Telephone [facility] Diabetes [address] [facility] [address] [place] [address] Rojas Cunningham MD Medication Management 06/18/2014 Telephone [facility] [address] [facility] [address] [place] [address] Juanita Sims, RD,LD,CDE Diabetes (I pro interpretation U 500 Vgo 20) 06/11/2014 Telephone [facility] [address] [place] [address] Shannan Wolfe RN,CDE Other (scalp lesions) 06/11/2014 2:40 PM EDT Office Visit [place] [address] Rojas Cunningham MD Diabetes mellitus type 2, uncontrolled (HCC) (Primary Dx); Mixed dyslipidemia; Vitamin D deficiency 06/04/[address] [facility] [address] [place] [address] Rojas Cunningham MD Medication Refill 05/29/2014 Telephone [facility] [address] [facility] [address] [place] [address] Rojas Cunningham MD Other (Pt.Asst/Senia) 05/13/2014 Telephone [facility] Diabetes [place] [address] [place] [address] Rojas Cunningham MD Glucose Monitoring 04/22/2014 Telephone [facility] [address] [place] [address] Rojas Cunningham MD Other (Vgo/U500) 04/13/2014 Telephone [facility] [address] [employer] [address] [place] [phone] Rojas Cunningham MD Medication Management (Krys Cares form) 04/07/2014 Telephone [facility] [address] [facility] [address] [place] [phone] Shannan Keita, FREDDY,CDE Other 03/27/2014 Refill [facility] [address] [facility] [address] [place] [phone] Rojas Cunningham MD Medication Refill 03/19/2014 1:30 PM EDT Office Visit [facility] [address] [address] Boris May MD Diabetes mellitus type 2, uncontrolled (HCC) (Primary Dx); Myopic astigmatism, bilateral; Presbyopia OU; Dry eyes, bilateral 03/17/2014 3:00 PM EDT Office Visit [facility] [address] [address] Chris Serra MD Mixed dyslipidemia (Primary Dx); Hypertension; Chest pain 03/16/2014 Telephone [place] [address] [employer] [place] [phone] Rojas Cunningham MD Medication Management 03/12/2014 Telephone [facility] [address] [place] [phone] Rojas Cunningham MD Results 03/10/2014 12:00 PM EDT Office Visit [facility] [address] [address] Rojas Cunningham MD Diabetes mellitus type 2, uncontrolled (HCC) (Primary Dx); Mixed dyslipidemia; Thyroid nodule; Vitamin D deficiency 03/05/2014 Telephone [facility] [address] [place], [place] [address] Shannan Wolfe, RN,CDE Diabetes; Glucose Monitoring 03/04/2014 Telephone [facility] [address] [facility] [address] [place] [address] Rojas Cunningham MD Other ([facility] lab orders) 03/04/2014 Telephone [facility] [address] [facility] [address] [place], [place] [address] Selma Kruger, BEST,CDE Diabetes (question) 03/03/2014 Telephone [facility] [address] [facility] [address] [place] [address] Rojas Cunningham MD Other (calling in BS) 02/16/2014 Telephone [facility] [address] [facility] [address] [place] [address] Rojas Cunningham MD Labs Only 02/11/2014 Telephone [facility] [address] [facility] [address] [place] [address] Rojas Cunningham MD Medication Management 02/10/2014 Telephone [facility] [address] [facility] [address] [place] [address] Priscilla Patel RN,CDE Insulin Titration (U500 start) 02/10/2014 11:20 AM EDT Office Visit [facility] [address] [facility] [address] [place] [phone] Rojas Cunningham MD Diabetes mellitus type 2, uncontrolled (HCC) (Primary Dx); Mixed dyslipidemia; Thyroid nodule; Vitamin D deficiency 01/30/2014 3:35 PM EDT - 01/30/2014 11:59 PM EDT Hospital Encounter [facility] [address] [place] [address] Vitamin D deficiency (Primary Dx); Diabetes mellitus type 2, uncontrolled (HCC); Thyroid nodule; Mixed dyslipidemia Discharge Disposition: Home or Self Care 01/30/2014 Telephone [place] [address] [place] [address] Rojas Cunningham MD Samples (Levemir/Novolog) 01/28/2014 Telephone [facility] [address] [place] [address] Rojas Cunningham MD Reschedule 12/26/2013 Telephone [place] [address] [place] [address] Rojas Cunningham MD Medication Management 12/25/2013 Telephone [place] [address] [place] [address] Rojas Cunningham MD Glucose Monitoring (download meter) 12/25/[address] [place] [address] Rojas Cunningham MD Samples (Levemir/Novolog) 12/16/[address] [place] [address] Rojas Cunningham MD Medication Management 12/11/2013 [place] [address] Chris Serra MD Medication Refill 12/11/2013 [place] [address] Chris Serra MD No Show 11/21/2013 Telephone [facility] [address] [place] [address] Rojas Cunningham MD Glucose Monitoring 11/19/[address] [place] [address] Rojas Cunningham MD Medication Management 11/03/2013 Telephone [facility] [address] [place] [address] Rojas Cunningham MD Medication Refill 10/31/2013 Telephone [place] [address] [address] [place] [address] Rojas Cunningham MD Reschedule 10/07/2013 11:20 AM EST Office Visit [place] [address] [address] [place] [address] Rojas Cunningham MD Diabetes mellitus type 2, uncontrolled (HCC) (Primary Dx); Mixed dyslipidemia; Vitamin D deficiency; Thyroid nodule 09/29/2013 12:25 PM EST - 09/29/2013 11:59 PM EST Hospital Encounter [facility] [place] [address] [place] [address] Hyperlipidemia (Primary Dx); Diabetes mellitus type 2, uncontrolled (HCC); Thyroid nodule; Hypovitaminosis D Discharge Disposition: Home or Self Care 09/29/2013 Telephone [place] [address] [address] [place] [address] Rojas Cunningham MD Other (downloaded meter) 09/23/2013 Orders Only [place] [address] [address] 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 [place] [address] Rojas Cunningham MD Other (blood sugar logs) 08/20/2013 Telephone [facility] [place] [address] [place] [address] Rojas Cunningham MD Results 08/14/2013 12:25 PM EST - 08/14/2013 11:59 PM EST Hospital Encounter [facility] [address] [place] [place] [address] Diabetes mellitus type 2, uncontrolled (HCC) (Primary Dx); Vitamin D deficiency; Mixed hyperlipidemia Discharge Disposition: Home or Self Care 08/14/2013 11:40 AM EST Office Visit [facility] [place] [address] [place] [address] Rojas Cunningham MD Diabetes mellitus type 2, uncontrolled (HCC) (Primary Dx); Mixed hyperlipidemia; Vitamin D deficiency 08/11/2013 Telephone [facility] [place] [address] [place] [place] [address] Rojas Cunningham MD Labs Only 08/06/2013 Refill [facility] [address] [address] Chris Serra MD Medication Refill 07/16/2013 Refill [facility] [place] [address] [place] [phone] Rojas Cunningham MD Medication Refill 07/15/2013 Refill [place] [address] [place] [place] [address] Rojas Cunningham MD Medication Refill 07/15/2013 Refill [facility] [address] [place] [address] Joe Ambrosio MD Medication Refill 07/08/2013 Abstract [facility] [address] [place] [phone] Emerald Amato MA 07/02/2013 5:00 PM EDT [facility] [address] [address] Boris Sarmiento MD Leg cramps (Primary Dx) 07/02/2013 12:50 PM EDT Office Visit [facility] [place] [address] [place] [address] Rojas Cunningham MD Diabetes mellitus type 2, uncontrolled (HCC) (Primary Dx); Vitamin d deficiency; Mixed hyperlipidemia 07/01/2013 Telephone [facility] [place] [address] [place] [phone] Rojas Cunningham MD Follow-up 06/23/2013 2:40 PM EDT - 06/25/2013 2:37 PM EDT Hospital Encounter [facility] [place] [address] Boris Rodriguez MD Pilger, Jeffrey M, MD Upadhayay, Niraj, MD Hypertensive urgency (Primary Dx); Chest pain; Paresthesia; Sleep apnea; Diabetes mellitus type 2, uncontrolled (HCC); Facial droop; Fibromyalgia; Hyperlipidemia; Angina at rest; Hypertension; Unspecified essential hypertension; Chest pain, unspecified; Disturbance of skin sensation Discharge Disposition: Home or Self Care 06/23/2013 Telephone [facility] [place] [phone] Chris Serra MD Edema; Pain (neck/shoulder) 06/10/2013 9:15 AM EDT Office Visit [facility] [address] [address] Chris Serra MD Hyperlipidemia (Primary Dx); Hypertension; CHF (congestive heart failure) (HCC); Chest pain; Left sided numbness; Other screening mammogram 04/17/2013 11:30 AM EDT - 04/17/2013 11:59 PM EDT Hospital Encounter [facility] Sleep Disorder [facility] [address] [place] [address] Emre [place] MD Sleep apnea (Primary Dx); Fibromyalgia; Hyperlipidemia; Diabetes mellitus type 2, uncontrolled (HCC); Hypertension; Obesity; Chest pain; Left sided numbness; CHF (congestive heart failure) (HCC) Discharge Disposition: Home or Self Care 04/16/2013 [facility] [address] [place] [address] Asha Ambrocio MA Other 03/28/2013 11:20 AM EDT Office [place] [facility] [place] [address] [place] [address] Boris Sarmiento MD Abscess of groin, left (Primary Dx) 02/18/2013 Refill [facility] &[address] [address] Chris Serra MD Medication Refill 02/18/2013 Refill [facility] [place] [address] Lonnie Dotson MD Medication Refill 02/06/2013 9:20 AM EDT Office Visit [facility] [place] [address] [address] Boris Sarmiento MD Sore throat (Primary Dx); Cervical lymphadenopathy; Viral gastroenteritis 01/22/2013 1:15 PM EDT Office Visit [facility] [address] Chris Serra MD Hypertension (Primary Dx); CHF (congestive heart failure) (HCC); Hyperlipidemia; Fibromyalgia; Chest pain 01/14/2013 Telephone [facility] [place] [address] [place] [address] Boris Sarmiento MD Visit Follow Up 01/10/2013 11:10 AM EDT Office Visit [facility] [place] [address] [place] [address] Boris Sarmiento MD Diabetes mellitus type 2, uncontrolled (HCC) (Primary Dx); Hypertension; Hyperlipidemia; CHF (congestive heart failure) (HCC); Headache 01/01/2013 6:05 PM EDT - 01/05/2013 1:55 PM EDT Hospital Encounter [facility] 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 [place] [phone] Rojas Cunningham MD Labs Only 11/14/2012 Telephone [place] [address] [place] [address] Rojas Cunningham MD Wound Infection 09/25/2012 Telephone [place] [address] [place] [place] [phone] Rojas Cunningham MD Other (report blood sugar) 09/24/2012 9:00 AM EST - 09/24/2012 11:59 PM [facility] [place] [facility] En[facility] Sleep Disorder [address] [place] [id number] Emre Houston MD Sleep apnea (Primary Dx); Fibromyalgia; Hyperlipidemia; Diabetes mellitus type 2, uncontrolled (HCC); Hypertension; Obesity Discharge Disposition: Home or Self Care 09/13/2012 Telephone [place] [address] [place] [address],CDE Other (bs logs) 09/06/2012 Telephone [place] [address] [place] [address],LD,CDE Diabetes (U 500) 08/26/2012 Telephone [place] [address] [place] [address] Rojas Cunningham MD Medication Problem 08/13/2012 Telephone [place] [address] [place] [address] Rojas Cunningham MD Medication Management 08/12/2012 Telephone [place] [address] [place] [address] Willa Genao, RN,CDE Medication Management 08/12/2012 Telephone [place] [address] [place] [place] [address] Willa Genao, RN,CDE Medication Management 08/12/2012 11:00 AM EST Office Visit [place] [address] [place] [address] Rojas Cunningham MD Diabetes mellitus type 2, uncontrolled (HCC) (Primary Dx); Vitamin d deficiency; Hyperlipidemia; Thyroid nodule 08/09/2012 1:40 PM EDT - 08/09/2012 11:59 PM EDT Hospital Encounter [facility] [address] [place] [address] Diabetes mellitus type 2, uncontrolled (HCC); Hyperlipidemia; Vitamin d deficiency Discharge Disposition: Home or Self Care 08/06/2012 Telephone [place] [address] [place] [place] [address] Rojas Cunningham MD Labs Only 07/31/2012 Telephone [place] [address] [place] [place] [address] Juanita Schuster, FREDDY,LD,CDE Diabetes (blood sugar logs) 07/23/2012 Telephone [facility] [place] [address] [place] [address] Shannan Wolfe RN,CDE Other 07/15/2012 7:10 PM EDT - 07/15/2012 10:48 PM EDT Emergency [facility] [address], [place] [address] Billie Bueno MD Abdominal pain, other specified site; Vomiting alone; Unspecified essential hypertension; Type II or unspecified type diabetes mellitus without mention of complication, not stated as uncontrolled (HCC) Discharge Disposition: Home or Self Care 06/25/2012 Telephone [facility] Diabetes [place] [address] [address] [place] [phone] Shannan Wolfe RN,CDE Diabetes 06/25/2012 9:45 AM EDT - 06/25/2012 11:59 PM EDT Hospital Encounter [facility] Sleep Disorder Center [address] [place] [address] Emre Houston MD Sleep apnea (Primary Dx); Fibromyalgia; Hyperlipidemia; Diabetes mellitus type 2, uncontrolled (HCC); Hypertension; Obesity Discharge Disposition: Home or Self Care 06/16/2012 11:47 AM EDT - 06/16/2012 12:21 PM EDT Emergency [facility] [address] [place] [address] Sadi Joe MD Plantar fasciitis; Peripheral neuropathy Discharge Disposition: Home or Self Care 06/05/2012 Telephone [facility] Diabetes [place] [address] [address] [place] [phone] Rojas Cunningham MD Other (error) 06/04/2012 Telephone [facility] Diabetes [place] [address] [address] [place] [phone] Willa Genao RN,CDE Blood Sugar Problem 05/30/2012 Telephone [facility] Diabetes [place] [address] [place] [address] Shannan Wolfe RN,CDE Blood Sugar Problem 05/22/2012 Telephone [facility] Diabetes [place] [address] [place] [address] Willa Genao RN,CDE Other (Order new test strips) 05/22/2012 Telephone [facility] Diabetes [place] [address] [place] [address] Willa Genao RN,CDE Medication Management 05/01/2012 Telephone [facility] Diabetes Center [place] [address] [place] [address] Rojas Cunningham MD Results 04/28/2012 7:00 PM EDT - 04/28/2012 11:59 PM EDT Hospital Encounter [facility] Sleep Disorder [address] [place] [phone] Obstructive sleep apnea (Primary Dx) Discharge Disposition: Home or Self Care 04/25/2012 12:32 PM EDT - 04/25/2012 11:59 PM EDT Hospital Encounter [facility] [place] [address] Tristan Ron MD Dysphagia Discharge Disposition: Home or Self Care 04/23/2012 9:14 AM EDT - 04/23/2012 11:59 PM EDT Hospital Encounter [facility] Sleep Disorder [place] [phone] Emre Houston MD Sleep apnea (Primary Dx); Obesity; Fibromyalgia; Diabetes mellitus type 2, uncontrolled (HCC); Hypertension; Poor sleep hygiene Discharge Disposition: Home or Self Care 04/18/2012 Telephone [facility] [address] [place] [address] Aimee Noel RMA Results 04/15/2012 9:00 AM EDT - 04/15/2012 11:59 PM EDT Hospital Encounter [facility] [address] [place] [address] Tristan Ron MD Thyroid mass Discharge Disposition: Home or Self Care 04/10/2012 7:00 PM EDT - 04/10/2012 11:59 PM EDT Hospital Encounter [facility] Sleep Disorder [address] [address] Obstructive sleep apnea (Primary Dx) Discharge Disposition: Home or Self Care 04/09/2012 Telephone [facility] [address] [place] [address] EnglandTiffany espinosa CMA Medication Management 04/09/2012 9:45 AM EDT - 04/09/2012 11:59 PM EDT Hospital Encounter [facility] Sleep Disorder Center [address] [place] [address] Emre Houston MD Discharge Disposition: Home or Self Care 04/08/2012 8:37 AM EDT - 04/08/2012 11:59 PM EDT Hospital Encounter [facility] [address] [place] [address] Joe Ambrosio MD Dysarthria; Facial weakness Discharge Disposition: Home or Self Care 04/03/2012 10:35 AM EDT - 04/03/2012 11:59 PM EDT Hospital Encounter [facility] [address] [place] [address] Diabetes mellitus type 2, uncontrolled (HCC); Vitamin D deficiency; FHx: early coronary artery disease; Thyroid nodule Discharge Disposition: Home or Self Care 04/03/2012 9:40 AM EDT Office Visit [facility] Diabetes [place] [address] [place] [address] Rojas Cunningham MD Diabetes mellitus type 2, uncontrolled (HCC) (Primary Dx); Thyroid nodule; Vitamin D deficiency; FHx: early coronary artery disease 04/02/2012 10:50 AM EDT - 04/02/2012 11:59 PM EDT Hospital Encounter [facility] [address] [place] [address] Diabetes mellitus type 2, uncontrolled (HCC); Hyperlipidemia; Hypertension; Obesity; Thyroid nodule Discharge Disposition: Home or Self Care 04/01/2012 Telephone [facility] [address] [place] [address] Joe Ambrosio MD Medication Change 04/01/2012 Telephone [facility] [place] [address] [place] [address] Rojas Cunningham MD Labs Only 04/01/2012 11:00 AM EDT Office Visit [facility] [address] [place] [address] Joe Ambrosio MD Migraine; Obesity; Fibromyalgia; Hypertension; Diabetes mellitus type 2, uncontrolled (HCC); Hyperlipidemia; Sleep apnea; Dysarthria; Facial weakness 02/29/2012 Telephone [place] [address] [place] [address] Ara Howell APRN Medication Management (?refill for Bentyl?) 02/19/2012 2:32 PM EDT - 02/19/2012 5:35 PM EDT Emergency [facility] [place] [address] Kyle Cortez MD Gastroenteritis Discharge Disposition: Home or Self Care 02/13/2012 11:12 AM EDT - 02/13/2012 11:59 PM EDT Hospital Encounter [facility] [address] [place] [address] Georgette Isbell Demyelinating disease of central nervous system, unspecified (HCC) Discharge Disposition: Home or Self Care 02/01/2012 1:15 PM EDT - 02/01/2012 11:59 PM EDT Hospital Encounter [facility] [address] [place] [phone] Arely Karimi MD Sarcoidosis Discharge Disposition: Home or Self Care 01/31/2012 Telephone [place] [address] [place] [address] Armando Chaves MD Release of Information 01/24/2012 1:00 PM EDT Office Visit [place] [address] [place] [address] Juanita Schuster, RD,LD,CDE Diabetes mellitus type 2, uncontrolled (HCC) (Primary Dx) 01/11/2012 Telephone [facility] Diabetes [place] [address] [place] [address] Armando Chaves MD Results 01/11/2012 1:30 PM EDT Office Visit [facility] Diabetes [place] [address] [place] [address] Michela Morton RN,CDE Diabetes mellitus type 2, uncontrolled (HCC); Hyperlipidemia; Hypertension; Obesity; Thyroid nodule 01/05/2012 Telephone [facility], [place] [address] [place] [address] Armando Chaves MD Medication Refill 01/05/2012 Telephone [facility] [place] [address] [place] [address] Ara Howell APRN Results 01/04/2012 11:05 AM EDT - 01/04/2012 11:59 PM EDT Hospital Encounter [facility] [address] [place] [address] Diabetes mellitus type 2, uncontrolled (HCC); Hyperlipidemia; Hypertension; Obesity; Hot flashes Discharge Disposition: Home or Self Care 12/29/2011 Telephone [facility] [place] [address] [place] [address] Tanvi Guy Referral (Diabetes Education) 12/28/2011 3:10 PM EDT Office Visit [facility], [place] [address] [place] [address] Ara Howell APRN Diabetes mellitus type 2, uncontrolled (HCC); Hyperlipidemia; Hypertension; Obesity; Thyroid nodule 12/26/2011 Telephone [facility] [place] [address] [place] [address] Armando Chaves MD Labs Only 11/22/2011 9:55 AM EST - 11/22/2011 11:59 PM EST Hospital Encounter [facility] [place] [address] Georgette Isbell Chest pain, unspecified Discharge Disposition: Home or Self Care 11/09/2011 10:14 PM EST - 11/10/2011 2:20 AM EST Emergency [facility] [address] [place] [address] Cal Pate MD Abdominal pain Discharge Disposition: Home or Self Care 11/02/2011 Telephone [facility], [place] [address] [place] [address] Harper Mcgrath MD Follow-up 09/15/2011 7:30 AM EST - 09/15/2011 11:59 PM EST Hospital Encounter [facility] Hand [address] [place] [address] Emerald Yan PT CHT Discharge Disposition: Home or Self Care 09/11/2011 Telephone [facility], [place] [address] [place] [address] Michela Morton, RN,CDE Other (log) 08/25/2011 1:00 PM EST - 08/25/2011 11:59 PM EST Hospital Encounter [facility] [place] [address] Tristan Ron MD Thyroid mass Discharge Disposition: Home or Self Care 08/24/2011 Telephone [facility], [place] [address] [place] [address] Michela Morton, BEST,CDE Other (log) 08/18/2011 8:40 AM EST Office Visit [facility], [place] [address] [place] [address] Harper Mcgrath MD Diabetes mellitus type 2, uncontrolled (HCC) (Primary Dx); Hyperlipidemia; Hypertension; Obesity; Hot flashes 08/16/2011 1:45 PM EST - 08/16/2011 11:59 PM EST Hospital Encounter [facility] [address] [facility] [place] [phone] Tristan Ron MD Thyroid mass Discharge Disposition: Home or Self Care 07/25/2011 1:30 PM EDT Office Visit [facility], [place] [address] [place] [address] Michela Morton RN,CDE Diabetes mellitus type 2, uncontrolled (HCC) 07/18/2011 1:30 PM EDT Office Visit [facility] Diabetes [facility] [address] [place] [address] Michela Morton BEST,CDE Diabetes mellitus type 2, uncontrolled (HCC) (Primary Dx) 07/11/2011 1:30 PM EDT Office Visit [facility], [place] [address] [place] [address],LD,CDE Diabetes mellitus type 2, uncontrolled (HCC) (Primary Dx) 07/06/2011 8:45 AM EDT - 07/06/2011 9:00 AM EDT Surgery [facility] [place] [place] [address] Edyta Chun MD CARPAL TUNNEL RELEASE 07/06/2011 5:45 AM EDT - 07/06/2011 9:05 AM EDT Hospital Encounter [facility] [place] [address] Edyta Chun MD Discharge Disposition: Home or Self Care 06/27/2011 Telephone [facility], [place] [address] [place] [address] Rachael Carvalho RN Blood Sugar Problem 06/27/2011 10:10 AM EDT Office Visit [facility], [place] [address] [place] [address],CDE Diabetes mellitus type 2, uncontrolled (HCC) 06/14/2011 10:45 AM EDT - 06/14/2011 11:59 PM EDT Hospital Encounter [facility] [place] [address] Hyperlipidemia; Hypertension; Hot flashes; Diabetes mellitus type 2, uncontrolled (HCC) Discharge Disposition: Home or Self Care 05/31/2011 9:00 AM EDT Office Visit [facility] Diabetes [facility] [address] [place] [address] Harper Mcgrath MD Diabetes mellitus type 2, uncontrolled (HCC) (Primary Dx); Hot flashes; Hyperlipidemia; Hypertension; Obesity 05/25/2011 3:11 PM EDT - 05/25/2011 11:59 PM EDT Hospital Encounter [facility] [address] [place] [address] Mendel Resendiz DO Carpal tunnel syndrome Discharge Disposition: Home or Self Care 05/25/2011 1:55 PM EDT - 05/25/2011 3:10 PM EDT Hospital Encounter [facility] [address] [place] [address] Mendel Resendiz, Disturbance of skin sensation; Blurred vision; Urinary incontinence Discharge Disposition: Home or Self Care 05/11/2011 1:46 PM EDT - 05/11/2011 11:59 PM EDT Hospital Encounter [facility] [address] [place] [address] Wiley Garza MD Stone Discharge Disposition: Home or Self Care 05/11/2011 1:45 PM EDT Hospital Encounter [facility] [address] [place] [address] Wiley Garza MD Back pain; History of kidney stones; Flank pain Discharge Disposition: Home or Self Care 12/27/2010 1:45 PM EDT - 12/27/2010 2:40 PM EDT Surgery [facility] [address] [place] [address] Wiley Garza MD CYSTOSCOPY BLADDER /URETHRA BIOPSY 12/27/2010 11:49 AM EDT - 12/27/2010 4:57 PM EDT Hospital Encounter [facility] [address] [place] [address] Wiley Garza MD Discharge Disposition: Home or Self Care 12/23/2010 10:00 AM EDT - 12/23/2010 11:59 PM EDT Hospital Encounter [facility] [address] [place] [address] Pat, [facility] Discharge Disposition: Home or Self Care 11/29/2010 9:11 AM EST - 11/29/2010 11:59 PM EST Hospital Encounter [facility] [address] [place] [address] Mendel Resendiz DO Pyelonephritis, unspecified; Abdominal pain, unspecified site; Abdominal pain, right upper quadrant; Other abnormal blood chemistry Discharge Disposition: Home or Self Care 11/25/2010 12:37 AM EST - 11/25/2010 3:54 AM EST Emergency [facility] [address] [place] [address] Mahesh Page MD Pyelonephritis; Elevated liver function tests; Abdominal pain, right upper quadrant; Right flank pain Discharge Disposition: Home or Self Care 11/11/2010 2:30 PM EST - 11/11/2010 11:59 PM EST Hospital Encounter [facility] [address] [place] [address] Wiley Garza MD Pain Discharge Disposition: Home or Self Care 07/18/2010 2:43 PM EDT - 07/19/2010 6:44 PM EDT Hospital Encounter [facility] [address] [place] [address] Mahesh Page MD Laib, Emily A, MD [...] PM EDT Hospital Encounter HST LXE EDG [place] [facility] 04/13/1999 6:08 AM EDT - 04/13/1999 [...] 7:27 PM EST [facility] 12:33 PM EST - 09/15/1994 11:59 PM EST Hospital Encounter [facility] EPIC CON [facility]K [facility] 08/30/1994 10:59 AM EST - 08/30/1994 4:50 PM EST [facility] 08/11/1994 5:37 AM EST - [...] times daily. Active L GASSERI/B BIFIDUM/B LONGUM ([facility] [employer] HEALTH ORAL) Take by mouth. Ac tive [...] 18 Active fluticasone (FLONASE) 50 mcg/actuation Nasl [place], Suspension 06/25/20 18 Active EPINEPHrine (EPIPEN) 0.3 [...] Reported on 02/23/2025 FREESTYLE PRECISION NUBIA STRIPS [facility] StripIndications:U ncontrolled type 2 diabetes mellitus with [...] ve ONETOUCH DELICA PLUS LANCET 33 gauge [facility] MiscIndications:Dy slipidemia associated with type 2 diabetes mellitus (HCC) 1 Each by Mis.(Non-Drug; Combo Route) route 4 times daily. 150 Each 02/16/20 Active Insulin Mittie, Disposable, (SAMMIE PEN NEEDLE) 32 gauge x [facility] NeedleIndications: Dyslipidemia associated with type 2 diabetes mellitus (HCC) Use as directed to inject insulins 4 times daily 120 Each 05/09/20 Active ONETOUCH VERIO TEST STRIPS [facility] StripIndications:D yslipidemia associated with type 2 diabetes [...] hyperglycemia, with long-term current use of insulin ([facility]) Subcutaneous (Inject under the skin) 0.5 mL once a week. 2 mL 5 09/05/20 23 Active glimepiride (AMARYL) 4 mg Oral TabletIndications: Type 2 diabetes mellitus with hyperglycemia, with long-term current use of insulin ([facility]) Take 1 Tablet by mouth every morning. [...] 08/20/20 Active Blood-Glucose Sensor (DEXCOM G7 SENSOR) [facility] DeviceIndications: Dyslipidemia associated with type 2 diabetes mellitus (HCC) 1 Each by [facility]Non-Drug; Combo Route) route every 10 days. 08/26/20 [...] dyslipidemia 10/07/2013 Overview (10/31/2019): Managed by Endocrinology. Nigerien Score of 4 Has Fhx od premature [...] Blood Pressure Father Foster High Cholesterol Father Fsoter Other Father Foster kidney stones Stroke Father [...] Me Social History Smoking Status as of 04/21/2025 Tobacco Use Types Packs/Day Years Used Date [...] 07/01/2025 3:20 PM EDT [facility] [place] [address] [facility] [address] [place] [phone] Rojas Cunningham MD [address] [facility] [address] [place] [phone] Procedures Procedure Name Priority Date/Time Associated [...] complication, with long-term current use of insulin ([facility]) Vitamin D deficiency Mixed dyslipidemia APOLIPOPROTEIN B-REF LAB Routine 01/08/2019 Uncontrolled type 2 diabetes mellitus with complication, with long-term current use of insulin ([facility]) Vitamin D deficiency Mixed dyslipidemia C-REACTIVE PROTEIN Routine 01/08/2019 Uncontrolled type 2 diabetes mellitus with complication, with long-term current use of insulin ([facility]) Vitamin D deficiency Mixed dyslipidemia COMPREHENSIVE METABOLIC PANEL Routine 01/08/2019 Uncontrolled type 2 diabetes mellitus with complication, with long-term current use of insulin ([facility]) Vitamin D deficiency Mixed dyslipidemia FRUCTOSAMINE -REF LAB Routine 01/08/2019 Uncontrolled type 2 diabetes mellitus with complication, with long-term current use of insulin ([facility]) Vitamin D deficiency Mixed dyslipidemia HEMOGLOBIN A1C Routine 01/08/2019 Uncontrolled type 2 diabetes mellitus with complication, with long-term current use of insulin ([facility]) Vitamin D deficiency Mixed dyslipidemia T4, FREE (THYROXINE) Routine 01/08/2019 Uncontrolled type 2 diabetes mellitus with complication, with long-term current use of insulin ([facility]) Vitamin D deficiency Mixed dyslipidemia THYROID STIMULATING HORMONE Routine 01/08/2019 Uncontrolled type 2 diabetes mellitus with complication, with long-term current use of insulin ([facility]) Vitamin D deficiency Mixed dyslipidemia SCANNED LABS [...] complication, with long-term current use of insulin ([facility]) Vitamin D deficiency Mixed dyslipidemia COMPREHENSIVE METABOLIC PANEL Routine 06/12/2018 Uncontrolled type 2 diabetes mellitus with complication, with long-term current use of insulin ([facility]) Vitamin D deficiency Mixed dyslipidemia FRUCTOSAMINE -REF LAB Routine 06/12/2018 Uncontrolled type 2 diabetes mellitus with complication, with long-term current use of insulin ([facility]) Vitamin D deficiency Mixed dyslipidemia HEMOGLOBIN A1C Routine 06/12/2018 Uncontrolled type 2 diabetes mellitus with complication, with long-term current use of insulin ([facility]) Vitamin D deficiency Mixed dyslipidemia URIC ACID Routine 06/12/2018 Uncontrolled type 2 diabetes mellitus with complication, with long-term current use of insulin ([facility]) Vitamin D deficiency Mixed dyslipidemia VITAMIN D 25 HYDROXY Routine 06/12/2018 Uncontrolled type 2 diabetes mellitus with complication, with long-term current use of insulin ([facility]) Vitamin D deficiency Mixed dyslipidemia VITAMIN B12 LEVEL Routine 06/12/2018 Uncontrolled type 2 diabetes mellitus with complication, with long-term current use of insulin ([facility]) Vitamin D deficiency Mixed dyslipidemia LIPID PANEL REFLEX Routine 06/12/2018 Uncontrolled type 2 diabetes mellitus with complication, with long-term current use of insulin ([facility]) Vitamin D deficiency Mixed dyslipidemia APOLIPOPROTEIN B-REF LAB Routine 06/12/2018 Uncontrolled type 2 diabetes mellitus with complication, with long-term current use of insulin ([facility]) Vitamin D deficiency Mixed dyslipidemia THYROID STIMULATING [...] [place], DM. Father with CVA,dementia, ASHD s/p [place], HTN and HLD CARD.SURG: none CARD. RISK FACTORS: HTN, DM, ASHD and HLD LHC with FFR on 01/03/13 Following completion of the diagnostic procedure, fractional flow reserveassessment of the mid left anterior descending artery was performed. A 6French XB LAD 3.5 guiding catheter, a Citra pressure wire,anticoagulation with intravenous heparin, and maximal [...] BP improved Pt not on BP medication [employer]EL[employer]-due to financial issues PRN hydralazine 2. Chest [...] TUNNEL RELEASE performed by EDYTA CHUN at [facility] Family History Problem Relation Age of [...] 200 Syringe 11 Lancets (ONE TOUCH DELICA) [facility] Please dispense 1 box of lancets every30 [...] Tab 1 Tab OralNightly PRN Arehart, Abril, [employer] acetaminophen (TYLENOL) tablet 650 mg 650 mg Oral Q4H PRN Arehart,Abril, [employer] Or acetaminophen (TYLENOL) suppository 650 mg 650 mg Rectal Q4H PRNArehart, Abril, [employer] Sodium Chloride 0.9 % Syrg 5 mL 5 mL Intravenous Q8H GUILLERMO Arehart, Abril,[employer] 5 mL at 06/24/13 0515 And Sodium Chloride 0.9 % Syrg 5 mL 5 mL Intravenous PRN Arehart, Abril,[employer] dextrose solution 25 mL 25 mL Intravenous PRN Arehart, Abril, [employer] glucagon (human recombinant) (GLUCAGEN) injection 1 mg 1 mgIntramuscular PRN Arehart, Abril, [employer] insulin aspart (NovoLOG) injection 1-10 Units 1-10 Units SubcutaneousQID WM Arehart, Abril, [employer] 4 Units at 06/24/13 0945 albuterol (PROVENTIL HFA; VENTOLIN HFA) INHALER 2 Puff 2 PuffInhalation Q6H PRN Arehart, Abril, [employer] aspirin tablet 325 mg 325 mg Oral Daily Arehart, Abril, [employer] 325 mg at06/24/13 0945 atorvastatin (LIPITOR) tablet 10 mg 10 mg Oral Nightly Arehart, Abril,[employer] 10 mg at 06/23/13 2245 DULoxetine (CYMBALTA) capsule 60 mg 60 mg Oral BID Arehart, Abril, APRN60 mg at 06/24/13 0945 pantoprazole (PROTONIX) tablet 40 mg 40 mg Oral BID Arehart, Abril, APRN40 mg at 06/24/13 0945 nitroGLYCERIN (NITROSTAT) SL tablet 0.4 mg 0.4 mg Sublingual Q5 Min PRNArehart, Abril, [employer] topiramate (TOPAMAX) tablet 200 mg 200 mg Oral Nightly Arehart, Abril,[employer] topiramate (TOPAMAX) tablet 150 mg 150 mg Oral Daily Arehart, Abril,[employer] 150 mg at 06/24/13 0945 Allergies Allergen [...] note is in progress. Consult dictated # [id number] Symptoms likely related to migraine. MRI shows [...] note is in progress. Consult dictated # [id number] Symptoms likely related to migraine. MRI shows no acute CVA. No significant vascular disease on MRA. CUS fromlast summer was (-). Would continue ASA, management of vascular risk factors. OK for dischargewhen otherwise medically stable. Thank you. POCT ACTIVATED CLOTTING TIME Routine 01/03/2013 9:47 AM EDT DATA ENTRY OPERATOR PROCEDURE LOG Routine 01/03/2013 9:22 AM EDT CARDIAC PROCEDURE-DATA ENTRY OPERATOR ONLY 01/03/2013 8:53 AM EDT chest pain [...] 2:58 PM EDTThis note is in progress. [facility] [place] [facility] Cardiology Consultation ADMISSION: 01/02/2013 PATIENT: Angeles Pope [id number] PCP: No primary provider on file. I [...] 200 Syringe 11 Lancets (ONE TOUCH [place]) [facility] [place] 1 box of lancets every30 [...] TUNNEL RELEASE performed by EDYTA CHUN at [facility] Allergy Allergies Allergen Reactions Tawnya Inhibitors [...] most recent cardiovascular imaging studies availabe in [employer] EMR werereviewed at time of consultation Assessment: [...] Routine 01/04/2012 11:29 AM EDT VITAMIN D, [id number] Routine 01/04/2012 11:29 AM EDT Diabetes mellitus [...] 12 LEAD STAT 11/09/2011 10:53 PM EST NON-APPAREL MERCHANDISER CYTOLOGY REPORT Routine 08/25/2011 2:39 PM EST [...] EDT Same as pre-op Special Needs ROSENDA CPT:48825 CYSTOSCOPY BLADDER /URETHRA BIOPSY 12/27/2010 2:16 PM EDT Same as pre-op Special Needs ROSENDA CPT:83708 US ABDOMEN LIMITED Routine 11/29/2010 10:26 AM [...] Comment:100-129 Blood VENOUS BLOOD / Unknown 05/06/2024 [facility] Provider CHEMISTRY ORDERABLES Final R esult Performing Organization Address [facility] de Phone Number SEP OFFICE * VITAMIN D 25 HYDROXY (05/06/2024) Only the most recent of35 resultswithin the time period is included. 25-HYDROXY, VITAMIN D - HISTORICAL 90.0 SEP OFFICE Comment:30-100 Blood VENOUS BLOOD / Unknown 05/06/2024 [facility] Provider CHEMISTRY ORDERABLES Final R esult Performing Organization Address [facility] de Phone Number SEP OFFICE * MICROALBUMIN/CREATININE RATIO URINE (05/06/2024) Only the most recent of10 resultswithin the time period is included. Microalb, Ur <6.000 <=31 MG/L SEP OFFICE Comment:0-16.7 Urine URINE SPECIMEN COLLECTION / Unknown 05/06/2024 Historical Provider URINE ORDERABLES Final Resul t Performing Organization Address [facility] de Phone Number SEP OFFICE * THYROGLOBULIN -REF LAB (05/06/2024) Only the most recent of3 resultswithin the time period is included. Thyroglobulin <0.1 NG/ML SEP OFFICE Comment:1.5-38.5 Blood VENOUS BLOOD / Unknown 05/06/2024 Historical Provider CHEMISTRY ORDERABLES Edited Result - Final Performing Organization Address [facility] de Phone Number SEP OFFICE * THYROGLOBULIN ANTIBODY -REF LAB (05/06/2024) Only the most recent of3 resultswithin the time period is included. Thyroglobulin <1.0 NG/ML SEP OFFICE Comment:0.0-0.90 Blood VENOUS BLOOD / Unknown 05/06/2024 [facility] Provider IMMUNOLOGY ORDERABLES Final Result Performing Organization Address [facility] Phone Number SEP OFFICE * C-REACTIVE PROTEIN (05/06/2024) Only the most recent of33 resultswithin the time period is included. CRP 10 MG/L SEP OFFICE Comment:0-4 Blood VENOUS BLOOD / Unknown 05/06/2024 Historical Provider CHEMISTRY ORDERABLES Final R esult Performing Organization Address [facility] de Phone Number SEP OFFICE * (ABNORMAL) THYROID STIMULATING HORMONE (05/06/2024) Only the most recent of39 resultswithin the time period is included. TSH 17.500(A) 0.400 - 4.500 MCIU/ML SEP OFFICE Comment:0.465-4.68 Blood VENOUS BLOOD / Unknown 05/06/2024 Historical Provider CHEMISTRY ORDERABLES Final R esult Performing Organization Address [facility] de Phone Number SEP OFFICE * HEMOGLOBIN A1C (05/06/2024) Only the most recent of41 resultswithin the time period is included. A1c 6.9 SEP OFFICE Comment:4.0-6.0 Blood VENOUS BLOOD / Unknown 05/06/2024 Historical Provider CHEMISTRY ORDERABLES Final R esult Performing Organization Address [facility] de Phone Number SEP OFFICE * VITAMIN B12 LEVEL (05/06/2024) Only the most recent of27 resultswithin the time period is included. Vitamin B12 500 PG/ML SEP OFFICE Comment:[phone] Blood VENOUS BLOOD / Unknown 05/06/2024 Historical Provider CHEMISTRY ORDERABLES Final R esult Performing Organization Address [facility] Phone Number SEP OFFICE * (ABNORMAL) [...] Edited Result - Final Performing Organization Address [facility]/ZIP Co de Phone Number SEP OFFICE * [...] ORDERABLES Final Resu lt Performing Organization Address [facility] de Phone Number SEP OFFICE * T3 FREE (09/18/2023) Only the most recent of7 resultswithin the time period is included. Free T4 1.05 NG/DL SEP OFFICE Comment:Reference Range: 0.7 8-2.19 ng/dL Blood VENOUS BLOOD / Unknown 09/18/2023 Rojas Cunningham MD CHEMISTRY ORDERABLES Final Resu lt Performing Organization Address [facility] de Phone Number SEP OFFICE * URIC ACID (03/20/2023 12:40 PM EDT) Only the most recent of3 resultswithin the time period is included. Uric Acid 5.0 2.4 - 5.7 mg/dL 03/20/2023 5:51 PM EDT [email or web address] Blood VENOUS BLOOD / Unknown Venipuncture / Unknown 03/20/2023 12:40 PM EDT 03/20/2023 12:40 PM EDT Rojas Cunningham MD CHEMISTRY ORDERABLES Final Resu lt Performing Organization Address [facility] de Phone Number [email or web address] [address] [place] [address] , [address] [place] [id number] * TRIIODOTHYRONINE (02/06/2023) Only the most recent of2 resultswithin the time period is included. T3 Free 3.1 PG/ML SEP OFFICE Comment:[facility] -2 .0-4.4 Blood VENOUS BLOOD / Unknown 02/06/2023 Historical Provider CHEMISTRY ORDERABLES Final R esult Performing Organization Address [facility] de Phone Number SEP OFFICE * FRUCTOSAMINE (08/07/2022) Only the most recent of10 resultswithin the time period is included. Fructosamine 273 MCMOL/L SEP OFFICE Comment:Reference Range: 0-2 85 umol/L Blood VENOUS BLOOD / Unknown 08/07/2022 Rojas Cunningham MD CHEMISTRY ORDERABLES Final Resu lt Performing Organization Address [facility] de Phone Number SEP OFFICE * VITAMIN C (ASCORBIC ACID) - REF LAB (05/04/2022) Vitamin C 0.1 SEP OFFICE Comment:Reference Range: 0.4 -2.0 mg/dL Blood VENOUS BLOOD / Unknown 05/04/2022 Yecenia Ruiz MD CHEMISTRY ORDERABLES Final Re sult Performing Organization Address [facility] de Phone Number SEP OFFICE * C-PEPTIDE (05/31/2021) Only the most recent of4 resultswithin the time period is included. C-Peptide 1.5 NG/ML SEP OFFICE Comment:1.1-4.4 [facility] Blood 05/31/2021 Rojas Cunningham MD CHEMISTRY ORDERABLES Edited Res ult - Final Performing Organization Address [facility] de Phone Number SEP OFFICE * THYROGLOBULIN AND TG AB REFLEX MONITOR-REF LAB (01/25/2021) Only the most recent of9 resultswithin the time period is included. Thyroglob Ab <1.0 IU/ML SEP OFFICE Comment:[place] 0.0-0.9 Blood 01/25/2021 Rojas Cunningham MD CHEMISTRY ORDERABLES Final Resu lt Performing Organization Address [facility] de Phone Number SEP OFFICE * APOLIPOPROTEIN B-REF LAB (07/06/2020) Only the most recent of6 resultswithin the time period is included. Apolipoprotein B 89 SEP OFFICE Comment:<90 Blood 07/06/2020 Rojas Cunningham MD CHEMISTRY ORDERABLES Final Resu lt Performing Organization Address [facility] de Phone Number SEP OFFICE * (ABNORMAL) EMG (04/12/2020 11:13 AM EDT) Impressions [facility] - 04/12/2020 11:13 AM EDT Abnormal electrodiagnostic study There is EMG evidence of a mild right and moderate left median neuropathy at the wrist, carpal tunnel syndrome. No evidence for cervical radiculopathy Wiley Willard MD -Board Certified Physical Medicine and Rehabilitation Narrative [facility] - 04/12/2020 11:13 AM EDT Nerve [...] ORDERABLES Final Res ult Performing Organization Address [facility] de Phone Number [facility] [address] [place] [address] * FRUCTOSAMINE -REF LAB (02/26/2019) Only the most recent of10 resultswithin the time period is included. Fructosamine 257 MCMOL/L SEP OFFICE Comment:Evita Crouch 0-285 Blood 02/26/2019 Rojas Cunningham MD CHEMISTRY ORDERABLES Final Resu lt Performing Organization Address [facility] de Phone Number SEP OFFICE * LIPOPROTEIN (A)-REF LAB (01/20/2019) Only the most recent of3 resultswithin the time period is included. Lipoprotein (A) 17 MG/DL SEP OFFICE Comment:<75 -[facility] Blood VENOUS BLOOD / Unknown 01/20/2019 Tiffany Mayen APRN CHEMISTRY ORDERABLES Fin al Result Performing Organization Address [facility] de Phone Number SEP OFFICE * FERRITIN (01/08/2019) Only the most recent of7 resultswithin the time period is included. Ferritin 45.1 9.0 - 150.0 NG/ML [facility]P OFFICE Comment[facility] 1 1.1-264.0 Blood VENOUS BLOOD / Unknown 01/08/2019 Rojas Cunningham MD CHEMISTRY ORDERABLES Final Resu lt Performing Organization Address [facility] de Phone Number SEP OFFICE * VITAMIN E - REF LAB (07/05/2018 12:00 PM EDT) Alpha-Tocopherol (Vit E) mg/L 10.3 5.5 - 18.0 mg/L 07/09/2018 7:48 AM EDT [employer] Comment: Test developed and characteristics determined by [employer]. See Compliance Statement B: [email or web address] Gamma-Tocopherol (Vit E) mg/L 2.4 0.0 - 6.0 mg/L 07/09/2018 7:48 AM EDT [employer] Comment: Performed by [employer], [address] [place] [id number] [email or web address], Andrés Gramajo MD, Lab. Director Blood Venipuncture / Unknown 07/05/2018 12:00 PM EDT 07/05/2018 12:00 PM EDT us Lauren Fraser [employer] CHEMISTRY ORDERABLES Final Result Performing Organization Address [facility]/ZIP Co de Phone Number [employer] [employer] [address] [place] [address] * IRON/UIBC (07/05/2018 12:00 PM EDT) Only the most recent of4 resultswithin the time period is included. Iron 96 30 - 160 mcg/dL 07/05/2018 2:05 PM EDT PREFERRED LAB [employer], [employer] UIBC 185 112 - 347 mcg/dL 07/05/2018 2:05 PM EDT PREFERRED [employer], [employer] Transferrin Sat 34 20 - 50 % 8 2:05 PM EDT PREFERRED [facility] Blood Venipuncture / Unknown 07/05/2018 12:00 PM EDT 07/05/2018 12:00 PM EDT Lauren Fraser APRN CHEMISTRY ORDERABLES Final Result Performing Organization Address [facility] de Phone Number PREFERRED [facility] [address] [place] [address], [place] [address] * COPPER LEVEL -REF LAB (07/05/2018 12:00 PM EDT) Copper 116 80 - 155 ug/dL 07/09/2018 7:30 AM EDT [employer] Comment: INTERPRETIVE INFORMATION: Copper, Serum or Plasma [...] or malabsorption. See Compliance Statement B at [email or web address] Performed by [employer], [address] [place] [address] [email or web address], Andrés Gramajo MD, Lab. Director Blood Venipuncture / Unknown 07/05/2018 12:00 PM EDT 07/05/2018 12:00 PM EDT Lauren Fraser [employer] CHEMISTRY ORDERABLES Final Result Performing Organization Address [facility] de Phone Number [facility] [address] [place] [address] * VITAMIN B1 (THIAMINE) WHOLE BLOOD -REF LAB (07/05/2018 12:00 PM EDT) Only the most recent of4 resultswithin the time period is included. Vit B1 WB 133 70 - 180 nmol/L 07/10/2018 9:00 AM EDT [employer] Comment: INTERPRETIVE INFORMATION: Vitamin B1, Whole Blood This assay measures the concentration of thiamine diphosphate (TDP), the primary active form of vitamin B1. Approximately 90 percent of vitamin B1 present in whole blood is TDP. Thiamine and thiamine monophosphate, which comprise the remaining 10 percent, are not measured. Test developed and characteristics determined by [employer]. See Compliance Statement B: [email or web address] Performed by [employer], [address] [place] [id number] [email or web address], Andrés Gramajo MD, Lab. Director Blood Venipuncture / Unknown 07/05/2018 12:00 PM EDT 07/05/2018 12:00 PM EDT Lauren Frasre APRN CHEMISTRY ORDERABLES Final Result Performing Organization Address [facility] de Phone Number [facility] [address] [place] [address] * ZINC LEVEL-REF LAB (07/05/2018 12:00 PM EDT) Only the most recent of4 resultswithin the time period is included. Zinc 68 60 - 120 ug/dL 07/09/2018 7:30 AM EDT [employer] Comment: INTERPRETIVE INFORMATION: Zinc, Serum or Plasma Circulating zinc concentrations are dependent on albumin status and are depressed with malnutrition. Zinc may also be lowered with infection, inflammation, stress, oral contraceptives, and . Zinc may be elevated with zinc supplementation or fasting. Elevated zinc concentrations may interfere with copper absorption. Test developed and characteristics determined by [employer]. See Compliance Statement B: [employer]/CS Performed by [employer], [address] [place] [address] [email or web address], Andrés Gramajo MD, Lab. Director Blood Venipuncture / Unknown 07/05/2018 12:00 PM EDT 07/05/2018 12:00 PM EDT us Lauren Fraser [employer] CHEMISTRY ORDERABLES Final Result Performing Organization Address [facility]/ZIP Co de Phone Number [employer] [employer] [address] [place] [address] * VITAMIN A (RETINOL) -REF LAB (07/05/2018 12:00 PM EDT) Only the most recent of3 resultswithin the time period is included. Vit A(Retinol) 0.37 0.30 - 1.20 mg/L 07/09/2018 7:48 AM EDT [employer] Retinyl Palm 0.02 0.00 - 0.10 mg/L 07/09/2018 7:48 AM EDT [employer] Vit A Intrp Normal 07/09/2018 7:48 AM EDT [employer] Comment: Test developed and characteristics determined by [employer]. See Compliance Statement B: [employer]/CS Performed by [employer], [address] [place] [address] [email or web address], Andrés Gramajo MD, Lab. Director Blood Venipuncture / Unknown 07/05/2018 12:00 PM EDT 07/05/2018 12:00 PM EDT us Lauren Fraser [employer] CHEMISTRY ORDERABLES Final Result Performing Organization Address [facility]/ZIP Co de Phone Number [employer] [employer] [address] [place] [address] * (ABNORMAL) FOLATE LEVEL (07/05/2018 12:00 PM EDT) Only the most recent of3 resultswithin the time period is included. Folate >16.00(H) 4.50 - 16.00 ng/mL 07/05/2018 2:20 PM EDT [email or web address] Blood Venipuncture / Unknown 07/05/2018 12:00 PM EDT 07/05/2018 12:00 PM EDT Narrative PREFERRED [facility] - 07/05/2018 2:20 PM EDT Ingestion of abdirashid doses of biotin (>5 mg/day) taken within 8 hours of drawing blood sample can interfere with this immunoassay test. Lauren Fraser APRN CHEMISTRY ORDERABLES Final Result Performing Organization Address [facility]/ZIP Co de Phone Number [facility] [employer] [address] [place] [address] , [place] [address] * MISCELLANEOUS LAB (06/12/2018) Only the most [...] client) 40.5 % 01/03/2018 11:26 PM EDT [employer] Folate RBC 587 >=366 ng/mL 01/03/2018 11:26 PM EDT [employer] Comment: Performed by [employer], [address] [place] [phone] [email or web address], Andrés Gramajo MD, Lab. Director Blood Venipuncture / Unknown 01/02/2018 8:52 AM EDT 01/02/2018 8:52 AM EDT Gila Winter APRN CHEMISTRY ORDERABLES Final Res ult Performing Organization Address [facility] de Phone Number [facility] [address] [place] [address] * IONIZED CALCIUM - INPATIENT (10/24/2017 11:44 AM EST) Only the most recent of6 resultswithin the time period is included. Calcium Ionized 1.17 1.12 - 1.32 mmol/L 10/24/2017 12:10 PM EST [facility] Blood Venipuncture / Unknown 10/24/2017 11:44 AM EST 10/24/2017 11:44 AM EST Rojas Cunningham MD CHEMISTRY ORDERABLES Final Resu lt Performing Organization Address [facility] de Phone Number [facility] [address] [place] [address] * BILL TG CL (10/24/2017 11:44 AM EST) [id number] P Billed 10/26/2017 2:22 AM EST [employer] Comment: Performed by [employer], [address] [place] [id number] [email or web address], Andrés Gramajo MD, Lab. Director Blood Venipuncture / Unknown 10/24/2017 11:44 AM EST 10/24/2017 11:44 AM EST Rojas Cunningham MD IMMUNOLOGY ORDERABLES Final Res ult Performing Organization Address [facility] de Phone Number [facility] [address] [place] [address] * PARATHYROID HORMONE INTACT (10/24/2017 11:44 AM EST) Only the most recent of8 resultswithin the time period is included. PTH Intact 32.09 15.00 - 65.00 pg/mL 10/24/2017 3:58 PM EST [facility] Blood Venipuncture / Unknown 10/24/2017 11:44 AM EST 10/24/2017 11:44 AM EST Narrative [facility] - 10/24/2017 3:58 PM EST Intact [...] ORDERABLES Final Resu lt Performing Organization Address [facility]/ZIP Co de Phone Number [facility] [address] [place] [address] * APOLIPOPROTEIN, A-1-REF LAB (09/04/2017) Pathologist [facility] Apolipoprotein A-1 138 SEP OFFICE Comment:116-209 Apolipoprotein B 94 SEP OFFICE Comment:54-133 Apolipo. B/A-1 Ratio 0.7 SEP OFFICE Comment:0.0-0.6 Blood VENOUS BLOOD / Unknown 09/04/2017 Rojas Cunningham MD CHEMISTRY ORDERABLES Final Resu lt Performing Organization Address [facility]/ZIP Co de Phone Number SEP OFFICE * CALCIUM, IONIZED, SERUM-REF LAB (09/04/2017) Calcium Ionized 5.0 MMOL/L SEP OFFICE Comment:4.5-5.6 [place] Blood VENOUS BLOOD / Unknown 09/04/2017 Rojas [...] ORDERABLES Final Resu lt Performing Organization Address [facility] de Phone Number SEP OFFICE * (ABNORMAL) VITAMIN B12/ FOLIC ACID (06/14/2017 1:45 PM EDT) Vitamin B12 994(H) 211 - 946 pg/mL [facility] Folic Acid Lvl 12.57 4.50 - 37.30 ng/mL [facility] Blood specimen (specimen) UPPER LIMB STRUCTURE / Unknown 06/14/2017 1:45 PM EDT 06/14/2017 6:33 PM EDT Lauren Fraser [employer] CHEMISTRY ORDERABLES Edite d Result - Final Performing Organization Address [facility] [place] [address] * MAGNESIUM LEVEL (06/14/2017 1:45 PM EDT) Only the most recent of3 resultswithin the time period is included. Pathologist [facility] Magnesium 2.1 1.6 - 2.4 mg/dL [facility] Blood specimen (specimen) UPPER LIMB STRUCTURE / Unknown 06/14/2017 1:45 PM EDT 06/14/2017 10:15 PM EDT Lauren Fraser [employer] CHEMISTRY ORDERABLES Final Result Performing Organization Address [facility] [place] [address] * (ABNORMAL) CBC (06/06/2017 2:04 PM EDT) Only the most recent of4 resultswithin the time period is included. WBC 9.0 4.0 - 11.0 x10(3)/mcL [facility] RBC 4.79 3.80 - 5.10 x10(6)/mcL [facility] Hgb 12.5 12.0 - 15.6 gm/dL [facility] Hct 38.6 35.7 - 45.9 % [facility] MCV 80.6(L) 82.5 - 99.8 fL [facility] MCH 26.1(L) 27.0 - 34.3 pg [facility] MCHC 32.4 32.1 - 35.3 gm/dL [facility] RDW 14.8 11.5 - 15.0 % [facility] Platelet 210 144 - 423 x10(3)/mcL [facility] MPV 9.3 6.8 - 10.8 fL [facility] Blood specimen (specimen) 06/06/2017 2:04 PM EDT 06/06/2017 2:04 PM EDT us Gila Winter [employer] HEMATOLOGY ORDERABLES Final Re sult [facility] [address] [place] [address] * SCANNED RHYTHM STRIPS (06/02/2017 8:20 AM EDT) Only the most recent of14 resultswithin the time period is included. Anatomical Region Laterality Modality Other 06/02/2017 8:20 AM EDT us Unknown Unknown IMG ECG ORDERABLES Final Result * (ABNORMAL) GLUCOSE METER POC (05/31/2017 12:51 PM EDT) Only the most recent of6 resultswithin the time period is included. [facility] Glucose Meter POC 205(H) 70 - 100 mg/dL [facility] POINT [facility] CARE LABORATORY Sample Type Capillary [facility] Patient Status Non-Critical Patient [facility] Blood specimen (specimen) 05/31/2017 12:51 PM EDT 05/31/2017 12:51 PM EDT Roxie Choi MD POINT OF CARE TEST ORDERABLES Fi nal Result Performing Organization Address City/[facility] de Phone Number [facility] [address] [facility] [place] [address] * DIFFERENTIAL (05/31/2017 5:44 AM EDT) Only the most recent of10 resultswithin the time period is included. Neut Percent 73.6 % [facility] Lymph Percent 18.3 % [facility] [place] Percent 7.0 % [facility] Eos Percent 0.5 % [facility] Baso Percent 0.6 % [facility] Neut# 6.9 1.8 - 7.7 x10(3)/mcL [facility] Lymph# 1.7 0.6 - 4.8 x10(3)/mcL [facility] [place]# 0.7 0.0 - 1.3 x10(3)/mcL [facility] Eos# 0.0 0.0 - 0.5 x10(3)/mcL [facility] Baso# 0.1 0.0 - 0.2 x10(3)/mcL [facility] Blood specimen (specimen) 05/31/2017 5:44 AM EDT 05/31/2017 6:02 AM EDT [facility] Jonathan Choi MD HEMATOLOGY ORDERABLES Final Resu lt Performing Organization Address [facility] de Phone Number [facility] [address] [place] [address] * (ABNORMAL) CBC WITH AUTO DIFF (05/31/2017 5:44 AM EDT) Only the most recent of10 resultswithin the time period is included. WBC 9.4 4.0 - 11.0 x10(3)/mcL [facility] RBC 4.64 3.80 - 5.10 x10(6)/mcL [facility] Hgb 12.3 12.0 - 15.6 gm/dL [facility] Hct 37.0 35.7 - 45.9 % [facility] MCV 79.8(L) 82.5 - 99.8 fL [facility] MCH 26.4(L) 27.0 - 34.3 pg [facility] MCHC 33.1 32.1 - 35.3 gm/dL [facility] RDW 15.0 11.5 - 15.0 % [facility] Platelet 179 144 - 423 x10(3)/mcL [facility] MPV 8.9 6.8 - 10.8 fL [facility] Blood specimen (specimen) 05/31/2017 5:44 AM EDT 05/31/2017 6:02 AM EDT Roxie Choi MD HEMATOLOGY ORDERABLES Final Resu lt Performing Organization Address [facility] de Phone Number [facility] [address] [place] [address] * PARTIAL THROMBOPLASTIN TIME (05/30/2017 7:38 PM EDT) Only the most recent of2 resultswithin the time period is included. PTT 30.9 26.0 - 36.4 second(s) [facility] Comment: Therapeutic range for unfractionated heparin: 53.0 [...] ORDERABLES Final Resu lt Performing Organization Address [facility] de Phone Number [facility] [address] [place] [address] * PT / INR (05/30/2017 7:38 PM EDT) Only the most recent of3 resultswithin the time period is included. PT 12.7 10.1 - 12.9 second(s) [facility] INR 1.09 0.88 - 1.12 [facility] Comment: Level of Therapy Indications Target INR Range Standard Dose Treatment and prophylaxis of venous 2.0 - 3.0 thrombosis, pulmonary embolism High Dose High risk patients with mechanical 2.5 - 3.5 heart valves Blood specimen (specimen) UPPER LIMB STRUCTURE / Unknown 05/30/2017 7:38 PM EDT 05/30/2017 7:43 PM EDT us Jonathan Choi MD HEMATOLOGY ORDERABLES Final Resu lt [facility] [address] [place], [place] [id number] * PATHOLOGY TISSUE REPORT (05/30/2017 10:23 AM EDT) Only the most recent of2 resultswithin the time period is included. Surgical Pathology Report PATIENT NAME:ANGELES KIMBROUGH Surgical Pathology Report Accession Number Collected Date/Time Received Date/Time [id number] 05/30/17 10:23 EDT 05/30/17 20:33 EDT Diagnosis Greater curvature of stomach, partial resection: - Fundic mucosa, submucosa and muscularis propria showing no evidence of malignancy. - Mild associated chronic inflammation. Mariela Chew (Electronically signed by) Verified: 06/01/2017 [facility] Laboratory Clinical Information Morbid obesity (HCC) [E66.01] [...] masses, or areas of ulceration grossly identified. Job Service Consultant sections are submitted in one cassette. / TE JUAN/LATOYA Microscopic Description Microscopic examination is performed and the findings corroborate the diagnosis. 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 us M Flor Massey MD CO ANESTHESIA Final Result Performing Organization Address [facility] de Phone Number [facility] [address] [place] [address] * CROSSMATCH SUMMARY (05/30/2017 8:48 AM EDT) Blood specimen (specimen) 05/30/2017 8:48 AM EDT 05/30/2017 8:48 AM EDT Roxie Choi MD BLOOD BANK ORDERABLES Final Resu lt Performing Organization Address [facility] de Phone Number [facility] [address] [place] [address] * ABORH (05/23/2017 12:15 PM EDT) [facility]h Int O POS [facility] Blood specimen (specimen) 05/23/2017 12:15 PM EDT 05/23/2017 12:21 PM EDT Karin Ashley APRN BLOOD BANK ORDERABLES Final R esult Performing Organization Address [facility] de Phone Number [facility] [address] [place] [address] * ANTIBODY SCREEN IGG (05/23/2017 12:15 PM EDT) Pathologist [facility] ABSC IgG Int Negative [facility] Blood specimen (specimen) 05/23/2017 12:15 PM EDT 05/23/2017 12:21 PM EDT Karin Ashley [employer] BLOOD BANK ORDERABLES Final R esult Performing Organization Address [facility] de Phone Number [facility] [address] [place] [address] * CORTISOL SALIVA-REF LAB (03/29/2017 12:59 AM EDT) Pathologist [facility] Cortisol Saliva-ARUP 0.029 mcg/dL [facility] Comment: INTERPRETIVE INFORMATION: Cortisol, Saliva Effective 10/30/2005 For collection at 2300 hr. the normal cortisol concentration is less than 0.112 ug/dL. Patients with Cushings Syndrome have concentrations of 0.112 ug/dL or greater. a.m. ([id number]) p.m. (noon-1800) Males 2.5-7 years 0.034-0.645 ug/dL [...] older 0.149-0.739 ug/dL 0.022-0.254 ug/dL Performed by [facility], [address] [place] [address] [id number] [email or web address], Andrés Gramajo MD - Lab. Director Saliva specimen (specimen) 03/29/2017 12:59 AM EDT 03/30/2017 4:10 PM EDT us Gila Winter [employer] CHEMISTRY ORDERABLES Final Res ult [facility] [address] [place] [address] [id number] * HEPATIC FUNCTION PANEL (11/07/2016) Only the [...] the right groin. Tanvi Ornelas MD. [address] [facility] [place] [address] [place], [address] Narrative 10/30/2016 1:17 PM EST EXAMINATION: Arterial [...] of the visualized vessels. Eric Be MD [facility] US ORDERABLES Final Result * (ABNORMAL) LIPOPROFILE NMR, PARTICLE ANALYSIS ONLY-REF LAB (08/22/2016 1:21 PM EST) LDL Particle Number by NMR 1523(H) <1000 nmol/L [facility] Comment: Low < 1000 Moderate 1000 - 1299 Borderline-High 1300 - 1599 High 1600 - 2000 Very High > 2000 Performed at: [place] [address] LDL Particle Size 20.0 >20.5 nm [facility] Comment: INTERPRETATIVE INFORMATION PARTICLE CONCENTRATION AND [...] have not been fully established. Performed at: [place] [address] LDL Size 20.0 >=20.8 nm [facility] Comment: Performed at: [place] [address] HDL Particle Number 30.4(L) >=30.5 mcmol/L [facility] Comment: Performed at: [place] [address] HDL Size 8.8(L) >=9.2 nm [facility] Comment: Performed at: [place] [address] Large HDL Particle Number 2.6(L) >=4.8 mcmol/L [facility] Comment: Performed at: [place] [address] Small LDL Particle Number 1027(H) <=527 nmol/L [facility] Comment: Performed at: [place] [address] Small LDL-P 1027(H) <=527 nmol/L [facility] Comment: Performed at: [place] [address] VLDL Size 60.2(H) <=46.6 nm [facility] Comment: Performed at: [place] [address] Large VLDL Particle Number 10.0(H) <=2.7 nmol/L [facility] Comment: Performed at: [place] [address] LP Insulin Resistance Score 83(H) <=45 [facility] [...] [place] Food and Drug Administration. Performed at: [address] [address] Blood specimen (specimen) 08/22/2016 1:21 PM EST 08/22/2016 6:27 PM EST Rojas Cunningham MD CHEMISTRY ORDERABLES Final Resu lt Performing Organization Address [facility] de Phone Number [facility] [address] [place] [address] * IGF-1 (INSULIN-LIKE GROWTH FACTOR 1) -REF LAB (08/22/2016 1:21 PM EST) Only the most recent of2 resultswithin the time period is included. IGF-1 103 53 - 287 ng/mL [facility] Comment: REFERENCE INTERVAL: IGF-1 (Insulin-Like Growth I) IGF-1 values well above the age and gender matched reference interval indicate a possible pituitary tumor secreting growth hormone. IGF-1 values below the reference interval indicate a possible GH deficiency. Access complete set of age- and/or gender-specific reference intervals for this test in the [facility] Test Directory ([employer]). Performed by [employer] [employer], [address] [place] [address] [email or web address], Lion Mooney MD - Lab. Director Blood specimen (specimen) 08/22/2016 1:21 PM EST 08/22/2016 11:16 PM EST Rojas Cunningham MD CHEMISTRY ORDERABLES Final Resu lt [facility] [address] [place] [address] * PHOSPHORUS LEVEL (08/22/2016 1:21 PM EST) Only the most recent of2 resultswithin the time period is included. Phosphorus 4.0 2.5 - 4.5 mg/dL [facility] Blood specimen (specimen) UPPER LIMB STRUCTURE / Unknown 08/22/2016 1:21 PM EST 08/22/2016 5:53 PM EST Rojas Cunningham MD CHEMISTRY ORDERABLES Final Resu lt Performing Organization Address [facility] de Phone Number [facility] [address] [place] [address] * (ABNORMAL) NMR LIPOPROFILE-REF LAB (06/17/2015) Only the most recent of4 resultswithin the time period is included. LDL Particle Number by NMR 1,225 [facility] Comment:<1000, fax from [facility] HDL Particle Number 25.3 [facility] [...] Res ult - Final Performing Organization Address [facility] de Phone Number [facility] * C-REACTIVE PROTEIN HIGH SENSITIVITY (06/17/2015) Only the most recent of2 resultswithin the time period is included. CRP 20.2 [facility] Comment:0.0-9.0, fax from [facility] Blood specimen (specimen) UPPER LIMB STRUCTURE / Unknown 06/17/2015 us Rojas Cunningham MD CHEMISTRY ORDERABLES Final Resu lt Performing Organization Address [facility] de Phone Number [facility] * C-PEPTIDE -REF LAB (02/02/2015) Only the most recent of7 resultswithin the time period is included. C-Peptide 1.3 [facility] Comment:1.1-4.4, FAX FROM [facility] Blood specimen (specimen) UPPER LIMB STRUCTURE / Unknown 02/02/2015 us Rojas Cunningham MD CHEMISTRY ORDERABLES Final Resu lt Performing Organization Address [facility] de Phone Number [facility] * [...] Res ult - Final Performing Organization Address [facility] de Phone Number [facility] * [...] ORDERABLES F inal Result Performing Organization Address [facility] de Phone Number [facility] * LACTIC ACID (01/30/2014 4:11 PM EDT) Lactic Acid 2.0 0.5 - 2.2 mmol/L [facility] Blood specimen (specimen) UPPER LIMB STRUCTURE / Unknown 01/30/2014 4:11 PM EDT 01/30/2014 4:20 PM EDT Rojas Cunningham MD CHEMISTRY ORDERABLES Final Resu lt Performing Organization Address [facility] de Phone Number [facility] [address] [place] [address] * SCANNED RADIOLOGY REPORT (06/25/2013 11:22 AM [...] no significant reversible defects. Jovany Rosario MD [facility] [place] CARDIAC ORDERABLES Final Result * ST STRESS TEST LEXISCAN (06/25/2013 9:28 AM EDT) Only the most recent of2 resultswithin the time period is included. Anatomical Region Laterality Modality Cardiac Stress T esting 06/25/2013 9:17 AM EDT Result [facility] Jovany Rosario MD [facility] STRESS ORDERABLES Catrachita l Result * LDL, CALCULATED (06/25/2013 4:57 AM EDT) Only the most recent of5 resultswithin the time period is included. LDL Calculated 85 <=100 mg/dL [facility] Comment: < 100 Optimal 100 - 129 Near or above optimal 130 - 159 Borderline High 160 - 189 High >= 190 Very High Blood specimen (specimen) 06/25/2013 4:57 AM EDT 06/25/2013 6:16 AM EDT Armando Martin MD CHEMISTRY ORDERABLES Final Re sult [facility] [address] [place] [address] * MRI BRAIN WO CONTRAST (06/24/2013 3:25 [...] IMG ECHO ORDERABLES Final Resu lt * [facility] CAROTID DUPLEX BILATERAL (06/24/2013 8:13 AM EDT) [...] * TSH REFLEX (06/24/2013 5:11 AM EDT) [facility] TSH Reflex 1.650 0.300 - 5.000 mcIU/mL [facility] Blood specimen (specimen) UPPER LIMB STRUCTURE / Unknown 06/24/2013 5:11 AM EDT 06/24/2013 1:51 PM EDT Jovany Rosario MD CHEMISTRY ORDERABLES Final Result [facility] [address] [place] [address] * TROPONIN-I (06/24/2013 1:16 AM EDT) Only the most recent of9 resultswithin the time period is included. [facility] Troponin-I <0.01 <=0.06 ng/mL [facility] Blood specimen (specimen) UPPER LIMB STRUCTURE / Unknown 06/24/2013 1:16 AM EDT 06/24/2013 1:21 AM EDT us Boris Rodriguez MD CHEMISTRY ORDERABLES Final Resul t [facility] [address] [place] [address] * CT HEAD WO CONTRAST (06/23/2013 6:18 [...] No acute disease identified. Boris Rodriguez MD [facility] DIAGNOSTIC IMAGING ORDERABLE S Final Result * ED TROPONIN (06/23/2013 1:26 PM EDT) Only the most recent of2 resultswithin the time period is included. Pathologist [facility] ED TNI 0.00 <=0.06 ng/mL [facility] Blood specimen (specimen) UPPER LIMB STRUCTURE / Unknown 06/23/2013 1:26 PM EDT 06/23/2013 1:27 PM EDT Boris Rodriguez MD CHEMISTRY ORDERABLES Final Resul t [facility] [address] [place] [address] * POCT RAPID STREP A (02/06/2013 9:21 AM EDT) Pathologist [facility] Strep A Ag None Detected None Detected Pos/Neg [facility] Comment:negative Lot Number [facility] Expiration Date [facility] SeriAl # [facility] Control Line Yes/No [facility] Specimen from throat (specimen) 02/06/2013 9:21 AM EDT Boris Sarmiento MD POINT OF CARE TEST ORDERABLE S Final Result Performing Organization Address [facility] Phone Number [facility] * POCT EKG (01/22/2013 1:37 PM EDT) 01/22/2013 1:37 PM EDT Chris Serra MD POINT OF CARE CARDIOLOGY Final Result Performing Organization Address [facility] de Phone Number [facility] * POCT MICROALBUMIN (01/10/2013 11:26 AM EDT) Microalb, Ur neg <=20 mg/L [facility] Lot Number SEP OFF[facility] Expiration Date SEP OFFICE SeriAl # SEP OFFICE Urine specimen (specimen) 01/10/2013 11:26 AM EDT Boris Sarmiento MD POINT OF CARE TEST ORDERABLE S Final Result Performing Organization Address [facility] Phone Number [facility] * (ABNORMAL) POCT URINALYSIS DIPSTICK (01/10/2013 11:26 AM EDT) Only the most recent of3 resultswithin the time period is included. Color, UA jose Clear, Yellow, Call[place], Rust [facility] Clarity, UA cloudy Clear, Cloudy [facility] Glucose, UA - g/dl% [facility] Bilirubin, UA - Pos/Neg [facility] Ketones, UA - Pos/Neg SEP midlevel provider Grav, UA 1.025 1.001 - 1.035 g/dl [...] coronary angiogram appear TECHNICAL FACTORS: 3-D noncontrast [id number] MIP reconstructed images obtained without contrast. They [...] recent coronaryangiogram appear TECHNICAL FACTORS: 3-D noncontrast [id number]-[id number] MIP reconstructed imagesobtained without contrast. They were [...] recent coronary angiogram. TECHNICAL FACTORS: 2-D noncontrast czya-fi-[id number] MIP reconstructed images from axial acquired source [...] lumen. The other is diminutive. Procedure Note Willa Wei MD - 01/04/2013 Extracranial MRA without contrast on 01/04/2013 COMPARISON: MRI of the brain without contrast 01/04/2013. INDICATION: 52-year-old with left-sided numbness after recent coronaryangiogram. TECHNICAL FACTORS: 2-D noncontrast [id number] MIP reconstructed imagesfrom axial acquired source images. [...] ACTIVATED CLOTTING TIME (01/03/2013 9:47 AM EDT) [facility] ACT 239 sec [facility] Lot Number [id number] [facility] Expiration Date [facility] SeriAl # [id number] [facility] Meter 2 [facility] Blood specimen (specimen) 01/03/2013 9:47 AM EDT Chris Serra MD POINT OF CARE TEST ORDERABLES F inal Result Performing Organization Address City/[facility]/ZIP Co de Phone Number [facility] [address] [place] [address] * DATA ENTRY OPERATOR PROCEDURE LOG (01/03/2013 9:22 AM EDT) 01/03/2013 9:22 AM EDT Soo Storey APRN [facility] CARDIAC CATH ORDERABLE S Final Result Performing Organization Address [facility] de Phone Number [facility] * EC ECHOCARDIOGRAM COMPLETE W DOPPLER AND COLOR FLOW MAPPING (01/02/2013 4:11 PM EDT) [facility] Ejection Fraction 55 % PYRAMIS Anatomical Region [...] Normalexam of the appendix. Billie Bueno MD [facility] CT ORDERABLES Final Res ult * FL [...] appearance of the thyroid Tristan Ron MD [facility] US ORDERABLES Final Result * THYROID PEROXIDASE (TPO) ANTIBODY-ARUP (04/03/2012 10:39 AM EDT) TPO Ab <0.3 0.0 - 9.0 IU/mL [facility] Blood specimen (specimen) UPPER LIMB STRUCTURE / Unknown 04/03/2012 10:39 AM EDT 04/03/2012 2:23 PM EDT us Rojas Cunningham MD IMMUNOLOGY ORDERABLES Final Res ult Performing Organization Address [facility] de Phone Number [facility] [address] [place] [address] * GLUTAMIC ACID DECARBOXYLASE AB-ARUP (04/03/2012 10:39 AM EDT) STEPHEN Ab <5.0 0.0 - 5.0 IU/mL [facility] Comment: INTERPRETIVE INFORMATION: Glutamic Acid Decarboxylase Antibody A value greater than 5.0 IU/mL is considered positive for Glutamic Acid Decarboxylase Antibody. Blood specimen (specimen) UPPER LIMB STRUCTURE / Unknown 04/03/2012 10:39 AM EDT 04/03/2012 4:39 PM EDT Rojas Cunningham MD CHEMISTRY ORDERABLES Final Resu lt Performing Organization Address [facility] de Phone Number [facility] [address] [place] [address] * MICROALBUMIN, URINE-ARUP (04/02/2012 11:05 AM EDT) Total Volume Random mL [facility] Hrs Jessica Random hr [facility] U Creatinine 96 mg/dL [facility] U24 Creat Not Applicable 700 - 1600 mg/day [facility] Microalbumin mg/dL-ARUP 0.3 mg/dL [facility] Microalbumin/Cre atinine Ratio-ARUP 3 0 - 30 mg/gm [facility] Microalbumin ug/minute-ARUP Not Applicable 0 - 20 mcg/min [facility] Microalbumin mg/day-ARUP Not Applicable 2 - 30 mg/day [facility] Urine specimen (specimen) 04/02/2012 11:05 AM EDT 04/02/2012 2:48 PM EDT Ara Howell APRN URINE ORDERABLES Final R esult Performing Organization Address [facility] de Phone Number [facility] [address] [place] [address] * CT ABDOMEN PELVIS WO ORAL OR [...] tyric Acid 0.31(H) 0.00 - 0.30 mmol/L [facility] Blood specimen (specimen) 02/19/2012 4:05 PM EDT 02/19/2012 4:10 PM EDT Kyle Cortez MD CHEMISTRY ORDERABLES Catrachita l Result Performing Organization Address [facility] de Phone Number [facility] [address] [place] [address] * LIPASE LEVEL (02/19/2012 4:05 PM EDT) Only the most recent of5 resultswithin the time period is included. Lipase Lvl 49 36 - 250 IU/L [facility] Blood specimen (specimen) UPPER LIMB STRUCTURE / Unknown 02/19/2012 4:05 PM EDT 02/19/2012 4:10 PM EDT Kyle Cortez MD CHEMISTRY ORDERABLES Catrachita l Result Performing Organization Address [facility] de Phone Number [facility] [address] [place] [address] * (ABNORMAL) AMYLASE LEVEL (02/19/2012 4:05 PM EDT) Only the most recent of3 resultswithin the time period is included. Amylase Lvl <30(L) 30 - 97 IU/L [facility] Blood specimen (specimen) UPPER LIMB STRUCTURE / Unknown 02/19/2012 4:05 PM EDT 02/19/2012 4:10 PM EDT Kyle Cortez MD CHEMISTRY ORDERABLES Catrachita l Result Performing Organization Address [facility] de Phone Number [facility] [address] [place] [address] * (ABNORMAL) URINALYSIS (02/19/2012 4:03 PM EDT) Only the most recent of2 resultswithin the time period is included. UA Color Yellow [facility] UA Appear Clear [facility] UA Glucose 150 mg%(A) Negative [facility] UA Bili Negative Negative [facility] UA Ketones Negative Negative mg/dL [facility] UA Blood Negative Negative [facility] UA pH 7.5 4.8 - 8.0 [facility] UA Protein Trace(A) Negative [facility] UA Urobilinogen Normal [facility] UA Nitrite Negative Negative [facility] UA Leuk Est Negative Negative [facility] UA Spec Grav 1.018 1.001 - 1.035 [facility] UA WBC 2 0 - 4 /HPF [facility] UA RBC 1 0 - 3 /HPF [facility] UA Squam Epi 1+ [facility] UA Mucus Trace [facility] Urine specimen (specimen) STRUCTURE OF URINARY TRACT PROPER / Unknown 02/19/2012 4:03 PM EDT 02/19/2012 4:03 PM EDT Kyle Cortez MD URINE ORDERABLES Edited Performing Organization Address [facility] de Phone Number [facility] [address] [place] [address] * URINE CULTURE (02/19/2012 4:03 PM EDT) Pathologist [facility] Final Three or more bacterial species isolated from urine indicating superficial or fecal contamination Recollect if clinically indicated [facility] Urine specimen obtained by clean catch procedure (specimen) STRUCTURE OF URINARY TRACT PROPER / Unknown 02/19/2012 4:03 PM EDT 02/19/2012 4:16 PM EDT Kyle Cortez MD MICROBIOLOGY - GENERAL OR DERABLES Final Result Performing Organization Address [facility] de Phone Number [facility] [address] [place] [address] * XR CHEST PA AND LATERAL (02/01/2012 1:25 PM EDT) Only the most recent of2 resultswithin the time period is included. Anatomical Region Laterality Modality Chest Radiographic [place] ging 02/01/2012 Impressions 02/01/2012 1:57 PM EDT Impression: Normal chest. Narrative 02/01/2012 1:57 PM EDT PA and Lateral Chest: Feb 01, 2012 01:25:23 PM History: [id number] Findings: The heart and lungs are within normal limits. Procedure Note Esme Baron Alejandro - 02/01/2012 PA and Lateral Chest: Feb 01, 2012 01:25:23 PM History: [id number] Findings: The heart and lungs are within normal limits. Impression: Normal chest. us Arely Karimi MD IMG DIAGNOSTIC IMAGING ORDERA BLES Final Result * (ABNORMAL) VITAMIN D, [id number] (01/04/2012 11:29 AM EDT) Vit D 25 OH 19(L) 30 - 80 ng/mL [facility] Comment: INTERPRETIVE INFORMATION: Vitamin D, 25-Hydroxy [...] Mcgrath MD CHEMISTRY ORDERABLES Fin al Result [facility] [address] [place] [address] * ST STRESS TEST EXERCISE (11/22/2011 11:32 [...] the colon No lymphadenopathy or bowel obstruction [id number] clonic diverticulosis. No evidence of diverticulitis. Procedure [...] the colon No lymphadenopathy or bowel obstruction [id number]-[id number] clonic diverticulosis. No evidence of diverticulitis. IMPRESSION: No acute findings. Normal appendix. Nonobstructing bilateralsmall renal stones. Cal Pate MD IMG CT ORDERABLES Final Result * NON-[facility] CYTOLOGY REPORT (08/25/2011 2:39 PM EST) Non-Area Operations Director Cytology Report PATIENT NAME:ANGELES POPE Non-Area Operations Director Cytology Report Accession Number Collected Date/Time Received Date/Time [id number] 08/25/11 14:39 EST 08/25/11 14:40 EST Specimen Source Fine Needle Aspiration - Right Thyroid Diagnosis Other Diagnostic Category, see comment section. Comment Specimen Adequacy: Satisfactory Cellular specimen composed of uniform, cytologically bland-appearing follicular epithelial cells with a predominantly macrofollicular arrangement. Colloid is present. COMMENT: The cytologic findings are consistent with a benign thyroid nodule. Clinical and radiographic correlation is recommended. Receivable Executive: MR YUNG 08/28/2011 Completed by: BRENT OROZCO MD (Electronically signed by) 08/28/2011 [facility] Laboratory Gross Description 4 direct smears made. Evaluation Episode #1: Adequate Evaluation Episode #2: Adequate Immediate Assessment for Adequacy: Adequate for cytologic diagnosis./ QL [facility] 08/25/2011 2:39 PM EST Jeremy Ravi MD CYTOLOGY ORDERABLES Final Result Performing Organization Address City/State/RUST Co de Phone Number [facility] [address] [place] [address] * US GUIDED THYROID BIOPSY (08/25/2011 2:03 [...] (06/14/2011 11:12 AM EDT) FSH 33.9 mIU/mL [facility] Comment: Suggested Reference Range (mIU/mL) Postmenopausal Female 22 - 130 Follicular Phase Female 2 - 12 Luteal Phase Female 1 - 10 Blood specimen (specimen) UPPER LIMB STRUCTURE / Unknown 06/14/2011 11:12 AM EDT 06/14/2011 12:40 PM EDT us Harper Mcgrath MD CHEMISTRY ORDERABLES Fin al Result [facility] [address] [place] [address] * XR ABDOMEN AP (05/11/2011 2:21 PM [...] PM EDT) D-Dimer <0.22 <=0.45 mcg/ml FEU [facility] Comment: The D-dimer test is used [...] Page MD HEMATOLOGY ORDERABLES Final R esult [facility] [address] [place] [address] * SCANNED OR REPORT (04/28/2010 12:00 AM [...] EST Name: BETZAIDA CHAN : 1960 VERIFIED [facility] Reason: 592.0/KUB Dict.Staff: ANGELA FARRIS [id number] Verified By: WILLA WEI Moncho: 11/05/09 11:32 pm Exams: [id number] VIEW KUB, 11/05/2009: COMPARISON: 09/08/2009. HISTORY: Right [...] 01/21/2010 Name: BETZAIDA CHAN : 1960 VERIFIED [facility] Reason: 592.0/KUB Dict.Staff: ANGELA FARRIS [id number] Verified By: WILLA WEI Fred Moncho: 11/05/09 11:32 pm Exams: [id number] VIEW KUB, 11/05/2009: COMPARISON: 09/08/2009. HISTORY: Right [...] pronounced than previous t racing Borderline ECG Web Graphic Designer- JEFFREY MOSQUERA M.D. Released Date Time- 10/06/09 0445 Procedure Note Jeffrey Mosquera - 12/17/2009 Sinus rhythm Anterior T wave changes are nonspecific, more pronounced than previous t racing Borderline ECG Web Graphic Designer- JEFFREY MOSQUERA M.D. Released Date Time- 10/06/09 0445 Wiley Garza MD [facility] STAR CARD HISTORICAL Final Result * CT ABDOMEN W/O CONTRAST (09/08/2009 12:00 AM EST) Only the most recent of2 resultswithin the time period is included. Anatomical Region Laterality Modality Other 09/08/2009 09/08/2009 Narrative 09/08/2009 12:00 AM EST Name: BETZAIDA CHAN : 1960 VERIFIED [facility] Reason: ac9 stone protocol Dict.Staff: ESME FREEMAN [id number] Verified By: MIK FREEMAN Moncho: 09/09/09 11:04 [...] 01/21/2010 Name: BETZAIDA CHAN : 1960 VERIFIED [facility] Reason: ac9 stone protocol Dict.Staff: ESME FREEMAN [id number] Verified By: MIK FREEMAN Moncho: 09/09/09 11:04 [...] EDT Name: BETZAIDA CHAN : 1960 VERIFIED [facility] Reason: abd pain Dict.Staff: MARY RAMOS [id number] Verified By: ARMANDO SUNSHINE Moncho: 08/02/09 1:43 [...] 01/21/2010 Name: BETZAIDA CHAN : 1960 VERIFIED [facility] Reason: abd pain Dict.Staff: MARY RAMOS [id number] Verified By: ARMANDO SUNSHINE Moncho: 08/02/09 1:43 [...] unspecified hyperlipidemia 01/10/2013 CHF (congestive heart failure) ([facility]) Congestive heart failure, unspecified 01/10/2013 Headache(784.0) Headache 01/10/2013 Hypertension Unspecified essential hypertension 01/22/2013 CHF (congestive heart failure) ([facility]) Congestive heart failure, unspecified 01/22/2013 Hyperlipidemia Other [...] type 2 diabetes mellitus with complication, unspecified skilled nursing insulin use status 11/27/2016 Post-surgical hypothyroidism Postsurgical [...] excess calories (HCC) 03/06/2017 BMI 40.0-44.9, adult ([facility]) Body Mass Index 40.0-44.9, adult 03/06/2017 Mixed [...] Generalized anxiety disorder 03/30/2017 No diagnosis on Gary II Observation of other suspected mental condition [...] Morbid obesity with BMI of 40.0-44.9, adult ([facility]) 04/18/2017 Morbid obesity due to excess calories (HCC) 05/03/2017 Morbid obesity, unspecified obesity type ([facility]) 05/03/2017 Morbid obesity with BMI of 40.0-44.9, adult ([facility]) 05/03/2017 Vitamin deficiency Unspecified vitamin deficiency 05/08/2017 Morbid obesity with BMI of 40.0-44.9, adult ([facility]) 05/17/2017 Uncontrolled type 2 diabetes mellitus with complication, with long-term current use of insulin 05/17/2017 Essential hypertension Unspecified essential hypertension 05/17/2017 Sleep apnea, unspecified type 05/17/2017 Morbid obesity due to excess calories ([facility]) 05/17/2017 Chest pain, unspecified type 05/17/2017 Combined [...] Morbid obesity with BMI of 40.0-44.9, adult ([facility]) 05/17/2017 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, unspecified vessel or lesion type 05/21/2017 History of coronary artery stent placement 05/21/2017 Morbid obesity (HCC) Morbid obesity 05/21/2017 BMI 40.0-44.9, adult ([facility]) Body Mass Index 40.0-44.9, adult 05/21/2017 Uncontrolled [...] complication, uncontrolled 05/30/2017 CHF (congestive heart failure) ([facility]) Congestive heart failure, unspecified 05/30/2017 Fatty liver Other chronic nonalcoholic liver disease 05/30/2017 Morbid obesity with BMI of 40.0-44.9, adult ([facility]) 05/30/2017 Sleep apnea Unspecified sleep apnea 05/30/2017 [...] EDT) No Jigna Dove LCSW Care Teams Gas Flow Regulator Relationship Specialty Start Date End Date Chris Serra MD [address] [facility] [address] Physician Internal Medicine-Cardiovascular Disease 01/16/13
[2025-04-22 08:27] LABS: Triiodothyronine (T3) Free 2.5 pg/mL (2.0-4.4)
== END 2025-04-20 23:59 | disposition home or self-care (01) ==
LOC: LAB.DROPOF 04-21 12:54
PROVIDERS: PCP Nurse Practitioner Family; Visit Provider Nurse Practitioner Family
DX: E89.0 Postprocedural hypothyroidism (principal); N39.0 Urinary tract infection, site not specified
CPT/HCPCS: 84436; 84439; 84443; 84481; 87086

== ENCOUNTER 2025-05-07 13:01 | Outpatient (CLI) | payer MEDICARE, MEDICAID, SELFPAY ==
--- OUTSIDE RECORDS SUMMARY | 2025-05-07 13:03 | XMS_ITS | Clinical Summary ---
Author Organization Healthcare Address [address] [place] [address] Care Team Providers Care Quality Coordinator Name Role Phone Unavailable Primary Care Provider [...] 09/09/2009 UKY-Zoster Vaccines (1 of 2) 2012 [id number] Vaccine ( - season) 2024 [facility]Y-Influenza Vaccine [...]
--- OUTSIDE RECORDS SUMMARY | 2025-05-07 13:03 | XMS_ITS | Clinical Summary ---
Author Organization [facility] Address [address] [place] [address] Care Team Providers Care Ticket Seller Name Role Phone Tiffany Mayen Peng Primary Care Provider [phone] Source Comments This information has been disclosed [...] therelease of HIV test results or diagnoses. [id number] Allergies No known active allergies Immunizations [...] of Treatment Not on file Insurance MEDICAID [place] Care Teams Ticket Seller Relationship Specialty Start Date End Date Tiffany Mayen [address] [facility] [address] [address] PCP - General 07/12/16
--- OUTSIDE RECORDS SUMMARY | 2025-05-07 13:03 | XMS_ITS ---
Laboratory report Created on: April 24, 2025 DUSTIN KIMBROUGH : 1960 Sex: Female Author Organization Unknown PROBLEMS Problems List Code Description RESULTS Laboratory Orders Date Order Code Test 2025-04-20 240265 TRIIODOTHYRONINE (T3), FREE Laboratory Results Date LOINC Test Value Unit Reference Range Interpre tation 2025-04-20 3051-0 TRIIODOTHYRONINE (T3), FREE 2.5 PG/ML 2.0-4.4
== END 2025-05-07 23:59 | disposition home or self-care (01) ==
LOC: LAB 13:02
PROVIDERS: PCP Nurse Practitioner Family; Visit Provider Allergy & Immunology
DX: T63.441A Toxic effect of venom of bees, accidental (unintentional), initial encounter (principal); J31.0 Chronic rhinitis; J45.30 Mild persistent asthma, uncomplicated
CPT/HCPCS: 36415; 83520; 86003

== ENCOUNTER 2025-06-01 09:54 | Outpatient (CLI) | payer MEDICARE, MEDICAID, SELFPAY ==
--- NOTE | 2025-06-01 09:57 | XR_ITS ---
FINAL REPORT CLINICAL HISTORY: Evaluation of left foot wound COMPARISON: 06/02/2024 FINDINGS: AP, oblique and lateral views of the left foot were obtained. There is no acute fracture or dislocation. There are postoperative changes to the hindfoot. Hardware is unchanged from prior exam. Surgical screws in the navicular demonstrate subtle lucency near their heads, similar to prior exam. Loosening is not excluded. No acute soft tissue abnormality is seen. IMPRESSION: Postoperative changes without acute osseous abnormality. Surgical screws, unchanged from prior exam with possible subtle lucency. Loosening not excluded. Reviewed, Interpreted and Dictated by Qian Galdamez MD Transcribed by Herminia Draper Authenticated and [facility]
--- OUTSIDE RECORDS SUMMARY | 2025-06-01 10:37 | XMS_ITS | Clinical Summary ---
Author Organization Healthcare Address [address] [place] [address] Care Team Providers Care Access Database Developer Name Role Phone Unavailable Primary Care Provider [...] 09/09/2009 UKY-Zoster Vaccines (1 of 2) 2012 [id number] Vaccine ( - season) 2024 UKY-Influenza Vaccine [...]
--- OUTSIDE RECORDS SUMMARY | 2025-06-01 10:37 | XMS_ITS | Clinical Summary ---
Author Organization [facility] Address [address] [place] [address] Care Team Providers Care International Trade Teacher Name Role Phone Tiffany Mayen Primary Care Provider [phone] Source Comments This information has been disclosed [...] therelease of HIV test results or diagnoses. [id number] Allergies No known active allergies Immunizations [...] of Treatment Not on file Insurance MEDICAID [place] Care Teams International Trade Teacher Relationship Specialty Start Date End Date Tiffany Mayen [address] [facility] [address] [address] PCP - General 07/12/16
--- OUTSIDE RECORDS SUMMARY | 2025-06-01 10:39 | XMS_ITS | Continuity of Care Document ---
Author Organization [facility] Address [facility] [place] [address] Phone Care Team Providers Care Pattern Changer And Repairer Name Role Phone Chris Serra MD Unavailable [phone] Encounters Date Type Department Care Team Description 02/23/2025 Telephone [facility] [address] [place] [address] Rojas Cunningham MD Results (External Results Request - Diabetes Eye Exam ) 02/23/2025 3:00 PM EDT Office Visit [facility] [address] [facility] [address] [place], [place] [phone] Rojas Cunningham MD Dyslipidemia associated with type 2 diabetes mellitus (HCC) (Primary Dx); Post-surgical hypothyroidism; Vitamin D deficiency; Follicular thyroid cancer (HCC) 02/16/2025 Telephone [facility] [email or web address] [place] [phone] Rojas Cunningham MD Labs Only 02/12/2025 Telephone [facility] [address] [place] [phone] Rojas Cunningham MD Paperwork/forms 09/01/2024 Telephone [facility] [address] Rojas Cunningham MD Paperwork/forms (TMS) 08/26/2024 10:40 AM EST Office Visit [address] [place] [address] Rojas Cunningham MD Dyslipidemia associated with type 2 diabetes mellitus (HCC) (Primary Dx); Post-surgical hypothyroidism; Vitamin D deficiency 07/18/2024 [place] [address] Rojas Cunningham MD Medication Refill 07/14/2024 [place] [address] Lissy Sagastume APRN Medication Refill 05/13/2024 [address] Lissy Sagastume APRN Medication Refill 05/08/2024 12:30 [place] [address] Rojas Cunningham MD Post-surgical hypothyroidism (Primary Dx); Follicular thyroid cancer (HCC); Vitamin D deficiency; Dyslipidemia associated with type 2 diabetes mellitus (HCC) 04/30/2024 Telephone [facility] [address] [place] [address] Rojas Cunningham MD Other 04/03/2024 [facility] [address] [place] [address] Jael Baker [facility]PhT Pharmacy Hyperlipidemia Management (Repatha) 01/09/2024 Telephone [facility] [address] [place] [phone] Rojas Cunningham MD Medication Refill 01/08/2024 [address] [place] [address] [address] [place] [phone] Rojas Cunningham MD Medication Refill 01/08/2024 [facility] [address] [place] [address] Hyacinth Mancilla [facility] Hyperlipidemia Management (Repatha ) 01/07/2024 Travel 01/07/2024 12:20 [place] [address] Rojas Cunningham MD Dyslipidemia associated with type 2 diabetes mellitus (HCC) (Primary Dx); Post-surgical hypothyroidism; Follicular thyroid cancer (HCC); Vitamin D deficiency 12/26/2023 Telephone [place] [phone] Rojas Cunningham MD Labs Only 11/28/2023 [facility] [address] [place] [phone] Mary Mancilla [facility] Pharmacy Hyperlipidemia Management; Pharmacy Reassessment (Repatha) 10/31/2023 Refill [place] [address] [place] [address] Rojas Cunningham MD Medication Refill 10/10/2023 [facility] [address] [place] [address] Arnav Duong [facility] Hyperlipidemia Management (Repatha) 09/24/2023 1:50 PM EST Office Visit [address] [address] Rojas Cunningham MD Dyslipidemia associated with type 2 diabetes mellitus (HCC) (Primary Dx); Vitamin D deficiency; Post-surgical hypothyroidism; Follicular thyroid cancer (HCC) 09/18/2023 Telephone [facility] [address] [phone] Rojas Cunningham MD Labs Only 09/17/2023 Telephone [facility] [address] [phone] Rojas Cunningham MD Labs (Reminder call) 09/05/2023 Telephone [facility] [address] [phone] Rojas Cunningham MD Medication Refill 07/18/2023 Telephone [facility] [address] [place] [phone] Rojas Cunningham MD Patient Education 07/16/2023 [facility]ty [facility] [address] [place] [address] Hyacinth Mancilla [facility] Hyperlipidemia Management (Repatha) 06/07/2023 2:50 PM EDT Office Visit [facility] [address] [place] [phone] Rojas Cunningham MD Dyslipidemia associated with type 2 diabetes mellitus (HCC) (Primary Dx); Vitamin D deficiency; Post-surgical hypothyroidism; Follicular thyroid cancer (HCC) 05/25/2023 9:30 AM EDT - 05/25/2023 11:59 PM EDT Hospital Encounter [facility] [address] [place] [address] Dyslipidemia associated with type 2 diabetes mellitus (HCC); Vitamin D deficiency; Post-surgical hypothyroidism Discharge Disposition: Home or Self Care 05/25/2023 10:00 AM EDT Office Visit [facility] [address] [phone],LD Type 2 diabetes mellitus with hyperglycemia, with long-term current use of insulin (HCC) (Primary Dx) 05/19/2023 Refill [facility] [address] [address] Rojas Cunningham MD Medication Refill 04/30/2023 Refill [facility] [address] [phone] Rojas Cunningham MD Medication Refill 04/23/2023 [facility] [address] [place] [address] Hyacinth Mancilla [facility] Hyperlipidemia Management (Repatha ) 03/29/2023 2:40 PM EDT Office Visit [facility] [address] [place] [phone] Rojas Cunningham MD Dyslipidemia associated with type 2 diabetes mellitus (HCC) (Primary Dx); Post-surgical hypothyroidism; Vitamin D deficiency 03/27/2023 [facility] [address] [place] [address] Hyacinth Mancilla [facility] Hyperlipidemia Management (Repatha ) 03/20/2023 Travel 03/20/2023 12:10 PM EDT - 03/20/2023 11:59 PM EDT Hospital Encounter [facility] [address] [place] [address] Dyslipidemia associated with type 2 diabetes mellitus (HCC); Vitamin D deficiency; Post-surgical hypothyroidism Discharge Disposition: Home or Self Care 03/20/2023 1:00 PM EDT Office Visit [facility] [address] [phone],CDE Type 2 diabetes mellitus with hyperglycemia, with long-term current use of insulin (HCC) (Primary Dx) 03/14/2023 Telephone [facility] [address] [address] Rojas Cunningham MD Blood Sugar Problem 03/07/2023 Telephone [facility] [address] [facility] [address] [place] [phone] Rojas Cunningham MD Labs Only 03/06/2023 Telephone [facility] 1500 [facility] [address] [place] [phone] Rojas Cunningham MD CGMS Interpretation (Milagro Report/Hyperglycemia) 02/14/2023 Telephone [facility] [address] [facility] [address] [place] [phone] Rojas Cunningham MD Patient Education 02/05/[address] [place], [place] [phone] Rojas Cunningham MD Medication Refill 02/02/[address] [place], [place] [phone] Rojas Cunningham MD Symptom Call; Appointment Needed; Lab Orders 01/12/[address] [place], [place] [phone] Rojas Cunningham MD Medication Refill 12/21/2022 [facility]ty [facility] [address] [place] [phone] Kerrie Almodovar, [facility] Hyperlipidemia Management (Repatha) 11/28/2022 Telephone [facility] [address] [facility] [address] [place] [address] Rojas Cunningham MD Glucose Monitoring 11/28/2022 [facility] [address] [place] [phone] Starr Ceja, [facility] Pharmacy Hyperlipidemia Management; Pharmacy Initial Assessment (Repatha) 11/28/[address] [place] [phone] Rojas Cunningham MD CGMS Interpretation (Milagro) 11/24/2022 [facility] [address] [place] [address] [place] Ambrosio, [facility] Hyperlipidemia Management (Repatha) 11/23/2022 [facility] [address] [place], [place] [id number] Gerardo Hdz, [facility] Pharmacy Hyperlipidemia Management (Praluent) 11/23/2022 Orders Only [place] [address] [facility] [address] [place] [phone] Michaelle Garcia LPN Dyslipidemia associated with type 2 diabetes mellitus (HCC); Hyperlipidemia associated with type 2 diabetes mellitus (HCC) 11/16/2022 Refill [facility] [email or web address] [place] [address] Rojas Cunningham MD Medication Refill 11/15/2022 Telephone [facility] [address] [email or web address] [address] Rojas Cunningham MD Prior Authorization (Milagro-DME) 11/14/2022 7:50 AM EST Office Visit [facility] [address] [email or web address] [address] Rojas Cunningham MD Dyslipidemia associated with type 2 diabetes mellitus (HCC) (Primary Dx); Post-surgical hypothyroidism; Vitamin D deficiency 11/07/2022 Telephone [facility] [email or web address] [phone] Rojas Cunningham MD Labs Only 10/30/2022 Refill [facility] [email or web address] [place] [phone] Rojas Cunningham MD Medication Refill; Central Patient Navigator Outreach (med refills 2nd ) 10/01/2022 Refill [facility] [address] [place] [phone] Rojas Cunningham MD Medication Refill 08/15/2022 Telephone [facility] [address] [place] [phone] Rojas Cunningham MD Cancellation 08/06/2022 Refill [facility] [address] [place], [place] [phone] Rojas Cunningham MD Medication Refill; Labs Only 07/10/2022 Telephone [facility] [address] [place] [phone] Rojas Cunningham MD Symptom Call 06/29/2022 Refill [facility] [address] [employer] [place], [place] [phone] Rojas Cunningham MD Medication Refill 06/23/2022 Refill [facility] [address] [place] [phone] Rojas Cunningham MD Medication Refill 06/19/2022 Refill [facility] [address] [place] [phone] Rojas Cunningham MD Medication Refill 06/13/2022 Refill [facility] [address] [place] [phone] Rojas Cunningham MD Medication Refill 06/01/2022 Refill [facility] [address] [place] [phone] Rojas Cunningham MD Medication Refill 05/09/2022 12:50 PM EDT Office Visit [facility] [address] [facility] [address] [place] [phone] Rojas Cunningham MD Dyslipidemia associated with type 2 diabetes mellitus (HCC) (Primary Dx); Post-surgical hypothyroidism 05/04/2022 Telephone [facility] [address] [facility] [address] [place] [phone] Rojas Cunningham MD Labs Only 03/10/2022 Refill [facility] [address] [facility] [address] [facility] [address] [place] [phone] Rojas Cunningham MD Medication Refill 02/15/2022 Refill [facility] [address] [facility] [address] [facility] [address] [place] [phone] Rojas Cunningham MD Medication Refill 02/02/2022 1:20 PM EDT Office Visit [facility] [address] [facility] [address] [facility] [address] [place] [phone] Rojas Cunningham MD Dyslipidemia associated with type 2 diabetes mellitus (HCC) (Primary Dx); Post-surgical hypothyroidism; Follicular thyroid cancer (HCC); Vitamin D deficiency 12/06/2021 Refill [facility] [address] [facility] [address] [facility] [address] [place] [phone] Rojas Cunningham MD Medication Refill 12/01/2021 1:10 PM EST Office Visit [facility] [address] [facility] [address] [facility] [address] [place] [phone] Rojas Cunningham MD Dyslipidemia associated with type 2 diabetes mellitus (HCC) (Primary Dx); Vitamin D deficiency; Post-surgical hypothyroidism; Follicular thyroid cancer (HCC) 11/16/2021 Refill [facility] [address] [facility] [address] [place] [phone] Rojas Cunningham MD Medication Refill 11/12/2021 Refill [facility] [address] [facility] [address] [place] [address] Rojas Cunningham MD Medication Refill 11/04/2021 Refill [facility] [address] [facility] [address] [place] [address] Rojas Cunningham MD Medication Refill; Appointment Needed 10/21/2021 Telephone [facility] [address] [facility] [address] [place] [address] Rojas Cunningham MD Other (Antibodies); Cancellation 10/18/[address] [facility] [address] [place] [address] Rojas Cunningham MD Labs Only 09/12/2021 Telephone [facility] [address] [place] [address] Rojas Cunningham MD Reschedule 09/06/2021 Telephone [facility] [address] Rojas Cunningham MD Labs Only 09/05/2021 Telephone [facility] [address] [place] [address] Rojas Cunningham MD Labs Only 08/12/2021 Refill [facility] [address] [place] [phone] Rojas Cunningham MD Medication Refill 07/29/2021 Travel 07/29/2021 11:00 AM EDT Office Visit [facility] [address] [facility] [address] [place] [address] Willa Horton LPN Dyslipidemia associated with type 2 diabetes mellitus (HCC) (Primary Dx); Diabetic autonomic neuropathy associated with type 2 diabetes mellitus (HCC) 07/25/2021 Refill [facility] [address] [place] [phone] Rojas Cunningham MD Medication Refill (Milagro 14 days sensor) 07/15/2021 Travel 07/15/2021 11:00 AM EDT Office Visit [facility] [address] [facility] [address] [place] [address] Willa Horton LPN Uncontrolled type 2 diabetes mellitus with complication (HCC) (Primary Dx) 07/12/2021 Telephone [facility] [address] [place] [phone] Rojas Cunningham MD Other (Milagro 2) 07/01/2021 Refill [facility] [address] [employer] [address] [place] [phone] Rojas Cunningham MD Medication Refill 06/09/2021 Telephone [facility] [address] [place] [phone] Rojas Cunningham MD Results 06/06/2021 Travel 06/06/2021 12:00 PM EDT Office Visit [facility] [address] [place] [phone] Rojas Cunningham MD Dyslipidemia associated with type 2 diabetes mellitus (HCC) (Primary Dx); Vitamin D deficiency; Statin intolerance 06/04/2021 Refill [facility] [email or web address] [place] [phone] Rojas Cunningham MD Medication Refill 05/30/2021 Telephone [facility] [address] [place] [phone] Rojas Cunningham MD Labs Only 05/19/2021 Refill [facility] [address] [facility] [address] [place] [phone] Rojas Cunningham MD Medication Refill 05/06/2021 Refill [facility] [address] Rojas Cunningham MD Medication Refill 04/14/2021 Travel 04/14/2021 11:30 AM EDT Office Visit [facility] [address] Willa Horton LPN Uncontrolled type 2 diabetes mellitus with complication (HCC) (Primary Dx) 04/14/2021 Telephone [facility] [address] [place] [address] Rojas Cunningham MD CGMS Interpretation (Personal Milagro 2 download) 04/12/2021 [facility]ty [facility] [address] [place], [place] [phone] Starr Ceja [facility] Pharmacy Hyperlipidemia Management 03/22/[address] [place] [address] Rojas Cunningham MD Prior Authorization 03/17/2021 Telephone [facility] [address] [place] [address] Rojas Cunningham MD Glucose Monitoring 03/04/2021 Travel 03/04/2021 4:15 PM EDT Office Visit [facility] [address] [place] [address] Willa Horton LPN Uncontrolled type 2 diabetes mellitus with complication (HCC) (Primary Dx) 03/04/2021 Telephone [facility] [address] [facility] [address] [place] [phone] Rojas Cunningham MD CGMS Interpretation (Personal Milagro 2 download) 02/23/2021 Telephone [facility] [address] [facility] [address] [place] [address] Rojas Cunningham MD CGMS Interpretation (Milagro 2) 02/23/2021 Telephone [facility] [address] [facility] [address] [place] [address] Rojas Cunningham MD Blood Sugar Problem 02/08/2021 Travel 02/08/2021 11:00 AM EDT Office Visit [facility] [address] [place] [address] Willa Horton LPN Uncontrolled type 2 diabetes mellitus with complication (HCC) (Primary Dx) 02/04/2021 [facility] [address] [place] [address] Starr Ceja, [facility] Pharmacy Hyperlipidemia Management; Pharmacy Initial Assessment 02/04/2021 Telephone [facility] [address] [facility] [address] [place] [address] Rojas Cunningham MD Schedule Appointment 02/03/2021 [facility] [address] [place] [address] Ck Landaverde, [facility] Pharmacy Hyperlipidemia Management 02/03/2021 Travel 02/03/2021 12:50 PM EDT Office Visit [facility] [address] [facility] [address] [place] [address] Rojas Cunningham MD Dyslipidemia associated with type 2 diabetes mellitus (HCC) (Primary Dx); Post-surgical hypothyroidism; Vitamin D deficiency 02/01/2021 Telephone [facility] [address] [facility] [address] [place], [place] [phone] Rojas Cunningham MD Labs Only 01/25/2021 Telephone [facility] [address] [facility] [address] [place], [place] [phone] Rojas Cunningham MD Labs Only 01/03/2021 Refill [facility] [address] [phone] Rojas Cunningham MD Medication Refill 11/17/2020 Telephone [facility] [address] [facility] [address] [place] [phone] Rojas Cunningham MD Symptom Call 11/16/2020 [facility] [address] [place] [phone] Jael Baker [facility] Hyperlipidemia Management (Praluent Refill) 10/28/2020 Travel 10/28/2020 1:00 PM EST Office Visit [facility] [address] [place] [phone] Rojas Cunningham MD Dyslipidemia associated with type 2 diabetes mellitus (HCC) (Primary Dx); Post-surgical hypothyroidism; Follicular thyroid cancer (HCC); Vitamin D deficiency 10/26/2020 [facility] [address] [place] [phone] Jael Baker [facility] Hyperlipidemia Management (Praluent Refill) 10/20/2020 Telephone [facility] [address] [place] [phone] Rojas Cunningham MD Labs Only 09/29/2020 [facility] [address] [place] [address] [place] Cruz [facility] Hyperlipidemia Management 09/08/2020 [facility] [address] [place] [address] Khushi Watson [facility] Hyperlipidemia Management 08/19/2020 Refill [facility] [address] [facility] [address] [place] [phone] Rojas Cunningham MD Medication Refill 08/11/[address] [phone] Rojas Cunningham MD Medication Refill 08/09/2020 [facility] [address] [place] [address] Yanick Wilks CPhT Pharmacy Hyperlipidemia Management (Praluent) 08/09/[address] [phone] Rojas Cunningham MD Medication Refill 07/19/2020 [facility] [address] [place] [address] Yanick Wilks [facility]Ph[facility] Pharmacy Hyperlipidemia Management (Praluent) 07/15/2020 Travel 07/15/2020 1:50 [place] [address] Rojas Cunningham MD Dyslipidemia associated with type 2 diabetes mellitus (HCC) (Primary Dx); Post-surgical hypothyroidism; Vitamin D deficiency; Follicular thyroid cancer (HCC) 07/05/2020 Telephone [place] [phone] Rojas Cunningham MD Labs Only 06/23/2020 [facility] [address] [place] [phone] Jael Baker [facility] Pharmacy Hyperlipidemia Management (Praluent) 06/22/[address] [phone] Rojas Cunningham MD Other (Office Notes) 06/02/2020 [facility] [address] [place] [address] Yanick Wilks [facility]PhT Pharmacy Hyperlipidemia Management (Praluent) 05/10/2020 [facility] [address] [place] [address] Trisha Alexander, [employer] Pharmacy Hyperlipidemia Management (Praluent refill ) 04/12/2020 Travel 04/12/2020 10:30 AM EDT - 04/12/2020 11:59 PM EDT Hospital Encounter [facility] [address] [place], [place] [id number] Emg, Commiskey Ritu Bilateral carpal tunnel syndrome (Primary Dx) Discharge Disposition: Home or Self Care 03/29/2020 Telephone [facility] [email or web address] [phone] Rojas Cunningham MD Diabetes (Dexcom Information ) 03/29/2020 Orders Only [facility] [address] [place] [address] Michael Verdin MD Carpal tunnel syndrome, bilateral (Primary Dx) 2020 Travel 2020 [facility]ty [facility] [address] [place] [address] Trisha Alexander, [employer] Pharmacy Hyperlipidemia Management (Praluent refill ) 2020 9:50 AM EDT Office Visit [facility] [email or web address] [phone] Rojas Cunningham MD Dyslipidemia associated with type 2 diabetes mellitus (HCC) (Primary Dx); Post-surgical hypothyroidism; Follicular thyroid cancer (HCC); Vitamin D deficiency 03/17/2020 Telephone [facility] [email or web address] [phone] Rojas Cunningham MD Other (Office Visit Reminder) 03/09/2020 Telephone [facility] [email or web address] [phone] Rojas Cunningham MD Reschedule (03/18/20 appointment) 03/08/[address] [facility] [address] [address] Rojas Cunningham MD Lab Orders 02/23/2020 [facility] [address] [place] [address] Yanick Wilks [facility] Pharmacy Hyperlipidemia Management (Praluent) 02/18/2020 [place] [address] Rojas Cunningham MD Medication Refill 01/22/2020 [facility] [address] [place] [address] Yanick Wilks [facility] Hyperlipidemia Management (Praluent refill) 01/21/2020 [place] [address] Belia Spence APRN Medication Refill 12/26/2019 [facility] [address] [place] [address] Yanick Wilks [facility] Pharm[facility] Hyperlipidemia Management (Praluent refill) 12/25/2019 Travel 12/05/2019 Specialty Pharmacy [facility] CLINIC [address] [place] [address] Yanick Wilks CPhT Pharmacy Hyperlipidemia Management (Praluent refill) 11/17/2019 Refill [place] [phone] Rojas Cunningham MD Medication Refill 11/13/2019 Specialty Pharmacy [facility] [address] [place] [address] Esteban Flores, [facility] Hyperlipidemia Management 11/13/2019 Specialty Pharmacy [facility] [address] [place] [address] Starr Ceja, [facility] Pharm[facility] Hyperlipidemia Management; Pharmacy Initial Assessment 10/31/2019 Telephone [place] [address] [employer] [facility] [address] [place] [phone] Rojas Cunningham MD Labs Only (Genetic Testing for FH ) 10/13/2019 Specialty Pharmacy EDG [address] [place], [place] [address] Esteban Flores, [facility] Hyperlipidemia Management 10/13/2019 1:40 PM EST Office Visit [facility] [address] [facility] [address] [place] [phone] Rojas Cunningham MD Dyslipidemia associated with type 2 diabetes mellitus (HCC) (Primary Dx); Post-surgical hypothyroidism; Follicular thyroid cancer (HCC); Vitamin D deficiency 10/02/2019 Telephone [facility] 1500 [employer] [facility] [address] [place] [phone] Rojas Cunningham MD Labs Only 09/16/2019 Refill [facility] [address] [facility] [address] [place] [phone] Belia Spence APRN Medication Refill 08/08/2019 Refill [facility] [address] [facility] [address] [place] [address] Belia Spence APRN Medication Refill 07/02/2019 1:40 PM EDT Office Visit [facility] [address] [email or web address] [address] [place] [phone] Rojas Cunningham MD Dyslipidemia associated with type 2 diabetes mellitus (HCC) (Primary Dx); Post-surgical hypothyroidism 06/23/2019 Telephone [facility] [address] [email or web address] [address] [place] [phone] Rojas Cunningham MD Labs Only 06/23/2019 Telephone [facility] [address] [email or web address] [address] [place] [phone] Rojas Cunningham MD Labs Only 05/29/2019 Telephone [facility] [address] [employer] [address] [place] [address] Rojas Cunningham MD Labs Only 05/16/2019 Telephone [facility] [address] [place] [address] Rosy Farmer CCMA Other (accreditation) 03/04/2019 1:00 PM EDT Office Visit [facility] [address] [employer] [address] [place], [place] [phone] Belia Spence APRN Uncontrolled type 2 diabetes mellitus with complication (HCC) (Primary Dx); Post-surgical hypothyroidism; Follicular thyroid cancer (HCC); Diabetic autonomic neuropathy associated with type 2 diabetes mellitus (HCC); Mixed dyslipidemia; Vitamin D deficiency; Statin intolerance; Essential hypertension; Sleep apnea, unspecified type; MEIER (nonalcoholic steatohepatitis) 02/27/2019 Telephone [facility] [address] [employer] [address] [place], [place] [address] Belia Spence APRN Labs Only 01/30/2019 Telephone [facility] [address] [employer] [address] [place], [place] [address] Rojas Cunningham MD Glucose Monitoring (01/17/19-01/29/19) 01/29/2019 Telephone [facility] [address] [employer] [address] [place], [place] [address] Rojas Cunningham MD CGMS Interpretation (Milagro Pro) 01/29/2019 1:00 PM EDT Office Visit [facility] [address] [employer] [address] [place] [phone] Uncontrolled type 2 diabetes mellitus with complication (HCC) (Primary Dx) 01/16/2019 2:30 PM EDT Office Visit [facility] [address] [email or web address] [address] [place] [phone] Rojas Cunningham MD Dyslipidemia associated with type 2 diabetes mellitus (HCC) (Primary Dx); Post-surgical hypothyroidism; Follicular thyroid cancer (HCC); Statin intolerance; Vitamin D deficiency 01/08/2019 Telephone [facility] [address] [place] [address] Rojas Cunningham MD Labs Only 01/08/2019 Refill [facility] [address] [facility] [address] [place] [address] Boy Brown MD Medication Refill 01/07/2019 Patient Outreach [facility] [address] Appointment [place] [address] Maranda Jorgensen, TERMITE RENEWAL INSPECTOR Referral Follow-up 12/27/2018 Telephone [facility] [address] [email or web address] [address] [place] [address] Belia Spence APRN Glucose Monitoring (11/21/18-12/24/18) 11/22/2018 Telephone [facility] [email or web address] [address] [place] [address] Rojas Cunningham MD Diabetes (Milagro due ) 11/22/2018 3:00 PM EST Office Visit [facility] [email or web address] [place] [address] Willa Garcia RN Uncontrolled type 2 diabetes mellitus with complication (HCC) (Primary Dx) 11/21/2018 Refill [facility] [email or web address] [address] [place] [address] Rojas Cunningham MD Medication Refill 11/20/2018 Social Work [facility] [address] [place] [address] Jigna Dove, MALCOLM Referral Follow-up 11/20/2018 Patient Outreach [facility] [address] [place] [address] Sherrie Khan, laundry housekeeping aide 11/20/2018 1:50 PM EST Office Visit [facility] [address] [place] [phone] Rojas Cunningham MD Dyslipidemia associated with type 2 diabetes mellitus (HCC) (Primary Dx); Post-surgical hypothyroidism 11/14/2018 Telephone [facility] [address] [place] [phone] Rojas Cunningham MD Labs Only 11/13/2018 Telephone [facility] [address] [place], [place] [address] Belia Spence APRN Labs Only 10/16/2018 Telephone [facility] [address] [email or web address] [address] [place], [place] [address] Rojas Cunningham MD Reschedule (10/24/18 appointment) 09/03/2018 Telephone [facility] [address] [email or web address] [address] [place], [place] [address] Belia Spence APRN Medication Refill 08/12/2018 Telephone [facility] [address] [email or web address] [address] [place], [place] [address] Rojas Cunningham MD Paperwork/forms (Office Notes) 07/22/2018 Telephone [facility] [address] [place] [address] Rosy Farmer, MIRACLEA Results 07/22/2018 Telephone [facility] [address] [place] [address] Nguyen Hays, CCMA Results 07/19/2018 10:20 AM EDT Office Visit [facility] [address] [email or web address] [address] [place] [phone] Belia Spence APRN Uncontrolled type 2 [...] PM EDT Hospital Encounter [facility] [address] [place] [address] S/P laparoscopic sleeve gastrectomy; Postsurgical malabsorption; Encounter for vitamin deficiency screening Discharge Disposition: Home or Self Care 07/05/2018 11:15 AM EDT Office Visit [facility] [address] [place] [address] Lauren Fraser APRN S/P laparoscopic sleeve gastrectomy (Primary Dx); Vitamin D deficiency; Uncontrolled type 2 diabetes mellitus with complication, with long-term current use of insulin (HCC); Mixed dyslipidemia; Gastroesophageal reflux disease without esophagitis; Postsurgical malabsorption; Encounter for vitamin deficiency screening 06/12/2018 Telephone [facility] 1500 [employer] [facility] [address] [place], [place] [address] Rojas Cunningham MD Labs Only 05/07/2018 Telephone [facility] 1500 [employer] [facility] [address] [place] [phone] Belia Spence APRN Reschedule 05/03/2018 Telephone [facility] [address] [email or web address] [address] [place] [phone] Rojas Cunningham MD Labs Only 04/15/2018 Telephone [facility] [address] [email or web address] [address] [place] [phone] Rojas Cunningham MD Reschedule 04/03/2018 Refill [facility] [address] [place] [address] Gila Winter APRN Medication Refill 02/18/2018 Telephone [place] [phone] Rojas Cunningham MD Lab Orders 01/22/2018 Telephone [facility] [address] [place] [address] Fernando, Marielos Belem Mcfadden, RMA Results 01/07/2018 Telephone [facility] [address] [place] [address] Fernando, January Belem [facility], RMA Results 01/02/2018 8:49 AM EDT - 01/02/2018 11:59 PM EDT Hospital Encounter [facility] [address] [place] [address] Follicular thyroid cancer (HCC); Post-surgical hypothyroidism; Uncontrolled type 2 diabetes mellitus with complication, with long-term current use of insulin (HCC); S/P laparoscopic sleeve gastrectomy; Hypocalcemia Discharge Disposition: Home or Self Care 01/02/2018 10:00 AM EDT Office Visit [facility] [address] [address] Boy Brown MD Type 2 diabetes mellitus without retinopathy (HCC) (Primary Dx); KCS (keratoconjunctivitis sicca) (HCC); Contact dermatitis of right eyelid; Refractive error 12/27/2017 Telephone [facility] [address] [address] Rojas Cunningham MD Medication Refill 12/20/2017 Telephone [facility] [address] [address] Rojas Cunningham MD Samples 12/10/2017 2:15 PM EST Office Visit [facility] [address] [place] [address] Gila Winter APRN Class 2 [...] disease, esophagitis presence not specified 12/06/2017 Telephone [place] [address] [employer] [facility] [place] [address] Rojas Cunningham MD Results 12/03/[address] [employer] [facility] [address] Rojas Cunningham MD Results 11/29/2017 2:40 PM EST Office Visit [place] [address] [employer] [address] [place] [address] Rojas Cunningham MD Uncontrolled type 2 diabetes mellitus with complication, with long-term current use of insulin ([facility]) (Primary Dx); Post-surgical hypothyroidism; Follicular thyroid cancer (HCC); Mixed dyslipidemia; Vitamin D deficiency 11/20/2017 Telephone [place] [address] [email or web address] [address] Rojas Cunningham MD Glucose Monitoring (BSL ) 11/19/2017 Telephone [facility] [address] [email or web address] [address] [place] [address] Rojas Cunningham MD Lab Orders 10/26/2017 Telephone [facility] [address] [place] [address] Rojas Cunningham MD Results 10/26/2017 Orders Only [place] [address] [place] [address] Rojas Cunningham MD Uncontrolled type 2 diabetes mellitus with complication, with long-term current use of insulin (HCC) (Primary Dx); Post-surgical hypothyroidism; Follicular thyroid cancer (HCC); Mixed dyslipidemia 10/24/2017 11:30 AM EST - 10/24/2017 11:59 PM EST Hospital Encounter [facility] [address] [place] [address] [place] [address] Dyslipidemia associated with type 2 diabetes mellitus (HCC); Vitamin D deficiency; Post-surgical hypothyroidism Discharge Disposition: Home or Self Care 10/24/2017 10:50 AM EST Office Visit [address] [place] [address] Rojas Cunningham MD Uncontrolled type 2 diabetes mellitus with complication, with long-term current use of insulin (HCC) (Primary Dx); Post-surgical hypothyroidism; Mixed dyslipidemia; Vitamin D deficiency 10/22/2017 Telephone [place] [address] [address] [place] [address] Rojas Cunningham MD Reschedule 10/10/2017 Telephone [place] [address] Rojas Cunningham MD Samples 09/22/2017 Refill [place] [address] Rojas Cunningham MD Medication Refill 09/12/2017 Telephone [facility] [address] [place] [address] Rojas Cunningham MD Glucose Monitoring (Milagro inserted) 09/12/2017 Refill [facility] [address] [place] [address] Gila Winter APRN Medication Refill 09/12/2017 1:30 PM EST Office Visit [address] [place] [phone] Rojas Cunningham MD Dyslipidemia associated with type 2 diabetes mellitus (HCC) (Primary Dx); Follicular thyroid cancer (HCC); Post-surgical hypothyroidism; Vitamin D deficiency 09/07/2017 Telephone [facility] [address] [facility] [address] [place] [address] Rojas Cunningham MD Glucose Monitoring (BSL) 08/28/2017 Telephone [facility] [address] [facility] [address] [place] [address] Rojas Cunningham MD Glucose Monitoring (BSL) 08/28/2017 10:30 AM EST Office Visit [facility] [address] [place] [address] Gila Winter APRN Class 2 obesity due [...] [facility] [address] [place] [address] Gila Winter APRN Medication Refill (Carafate) 08/03/2017 Telephone [facility] [address] [place] [address] Boy Brown MD Medication Change 08/03/2017 10:15 AM EDT Office Visit [facility] [address] [phone] Boy Brown MD Contact dermatitis of right eyelid (Primary Dx); Allergic conjunctivitis of both eyes 08/02/2017 1:10 PM EDT Office Visit [facility] [address] [facility] [address] [place] [address] Rojas Cunningham MD Dyslipidemia associated with type 2 diabetes mellitus (HCC) (Primary Dx); Post-surgical hypothyroidism; Vitamin D deficiency 07/10/2017 Telephone [facility] [address] [email or web address] [address] [place], [place] [address] Rojas Cunningham MD Results ([facility]) 07/10/2017 2:00 PM EDT Office Visit [facility] [address] [place] [address] Jose Venegas, FREDDY Obesity, Class II, BMI 35-39.9, with comorbidity (Primary Dx) 07/03/2017 1:40 PM EDT Office Visit [facility] [address] [email or web address] [address] [place], [place] [address] Rojas Cunningham MD Dyslipidemia associated with type 2 diabetes mellitus (HCC) (Primary Dx); Vitamin D deficiency 07/03/2017 11:15 AM EDT Office Visit [facility] [address] [place] [address] Gila Winter APRN Class 2 [...] disease, esophagitis presence not specified 06/29/2017 Telephone [facility] [address] [email or web address] [address] [place] [phone] Rojas Cunningham MD Medication Management 06/27/2017 Telephone [facility] [address] [email or web address] [address] [place] [phone] Rojas Cunningham MD Lab Orders 06/22/2017 Telephone [facility] [address] [email or web address] [address] [place] [phone] Rojas Cunningham MD Glucose Monitoring 06/22/2017 Telephone [facility] [address] [facility] [address] [place] [address] Rojas Cunningham MD Samples 06/21/2017 Telephone [facility] [address] [place] [address] Rosy Farmer CCMA Visit Follow Up (results) 06/21/2017 Telephone [facility] [address] [facility] [address] [place] [phone] Rojas Cunningham MD Medication Management 06/19/2017 Telephone [facility] [address] [facility] [address] [place] [phone] Rojas Cunningham MD Diabetes (High blood sugars) 06/14/2017 1:35 PM EDT - 06/14/2017 11:59 PM EDT Hospital Encounter [facility] [address] [place] [address] Leg cramps; Thiamine deficiency; S/P laparoscopic sleeve gastrectomy; Postsurgical malabsorption Discharge Disposition: Home or Self Care 06/14/2017 1:00 PM EDT Office Visit [facility] [address] [place] [address] Lauren Fraser APRN Leg cramps (Primary Dx); Thiamine deficiency; S/P laparoscopic sleeve gastrectomy; Postsurgical malabsorption; Essential hypertension; Uncontrolled type 2 diabetes mellitus with complication, with long-term current use of insulin (HCC); Sleep apnea, unspecified type 06/08/2017 Telephone [facility] [address] [place] [address] Marielos King RMA Results (Lab results ) 06/06/2017 1:50 PM EDT - 06/06/2017 11:59 PM EDT Hospital Encounter [facility] [address] [place] [address] Fever, unspecified fever cause; Cough; History of sleeve gastrectomy; Platelet inhibition due to Plavix Discharge Disposition: Home or Self Care 06/06/2017 1:15 PM EDT Office Visit [facility] [address] [place] [address] Gila Winter, ANJANA Fever, unspecified fever cause (Primary Dx); Cough; History of sleeve gastrectomy; Platelet inhibition due to Plavix; Gastroesophageal reflux disease, esophagitis presence not specified; Diarrhea of presumed infectious origin; Uncontrolled type 2 diabetes mellitus with complication, with long-term current use of insulin ([facility]); Class 2 obesity due to excess calories with serious comorbidity and body mass index (BMI) of 39.0 to 39.9 in adult; Mixed dyslipidemia; Essential hypertension; Sleep apnea, unspecified type; H/O heart artery stent; S/P laparoscopic sleeve gastrectomy 05/30/2017 7:47 AM EDT - 05/31/2017 3:22 PM EDT Hospital Encounter [facility] [address] [place] [address] Duncan Choi MD Discharge Disposition: Home or Self Care 05/30/2017 10:15 AM EDT - 05/30/2017 12:00 PM EDT Surgery [facility] [address] [place] [address] Duncan Choi MD LAPAROSCOPIC SLEEVE GASTRECTOMY POSSIBLE LAPAROSCOPIC HIATAL HERNIA REPAIR 05/30/2017 9:56 AM EDT Anesthesia Event [facility] [address] [place] [address] Mat Martinez MD Zehnder, Wende, APRN 05/23/2017 11:12 AM EDT - 05/23/2017 11:59 PM EDT Hospital Encounter [facility] [address] [place] [address] Pat, [facility] Preop testing (Primary Dx); Morbid obesity due to excess calories (HCC) Discharge Disposition: Home or Self Care 05/22/2017 Telephone [facility] [address] [place] [address] Rosy Farmer CCMA Visit Follow Up 05/21/2017 1:30 PM EDT Office Visit [facility] [address] [place] [address] Gila Winter APRN 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, unspecified vessel [...] Visit [facility] [address] [place] [address] Ara Horn, RD,CDE Morbid obesity with BMI of 40.0-44.9, adult (HCC) (Primary Dx) 05/17/2017 11:00 AM EDT Office Visit [facility] [address] [place] [phone] Emre Houston MD Sleep apnea, unspecified [...] BMI of 40.0-44.9, adult (HCC) 05/11/[address] [place] [address] Rojas Cunningham MD Other 05/08/2017 Orders Only [facility] [address] [place] [address] Gila Winter APRN Vitamin deficiency (Primary Dx) 05/08/2017 Telephone [facility] [address] [place] [address] Evi Jones, Clerical Staff Other 05/03/2017 Telephone [facility] [address] [facility] [place] [address] Urmila Massey Other 05/03/2017 8:30 AM EDT Office Visit [facility] [address] [place] [address] Morbid obesity due to excess calories (HCC) (Primary Dx) 05/03/2017 11:00 AM EDT Office Visit [facility] [address] [facility] [place] [address] Ara Horn, RD,CDE Morbid obesity, unspecified obesity type (HCC) (Primary Dx); Morbid obesity with BMI of 40.0-44.9, adult (HCC) 04/26/2017 Telephone [facility] [address] [facility] [address] [place], [place] [address] Rojas Cunningham MD Other (DM Shoes ) 04/18/2017 2:00 PM EDT Office Visit [facility] [address] [place] [address] Duncan Choi MD Morbid obesity with BMI of 40.0-44.9, adult (HCC) (Primary Dx) 04/16/2017 4:30 PM EDT Office Visit [facility] [address] [place] [address] Morbid obesity due to excess calories (HCC) (Primary Dx) 04/06/2017 Telephone [facility] [address] [email or web address] [address] [place] [phone] Rojas Cunningham MD Other (U-500 patient) 04/03/2017 9:00 AM EDT Office Visit [facility] [address] [place] [address] Gila Winter, PACK PRESS OPERATOR Morbid obesity due to excess calories (HCC) [...] PM EDT Hospital Encounter [facility] [address] [place] [address] Morbid obesity due to excess calories (HCC); Weight gain Discharge Disposition: Home or Self Care 03/30/2017 9:00 AM EDT Office Visit [facility] [address] [place] [address] Vika Hunter, PHD Other specified eating disorder (Primary Dx); Major depressive disorder, recurrent episode, in partial remission; Generalized anxiety disorder; No diagnosis on Roscoe II; Morbid obesity due to excess calories (HCC); BMI 40.0-44.9, adult ([facility]) 03/26/2017 Telephone [facility] [address] [place] [address] FernandoJanuary TERESITA Burton Visit Follow Up (lab results) 03/19/2017 4:30 PM EDT Office Visit [facility] [address] [place] [address] Obesity (BMI 30-39.9) (Primary Dx) 03/13/2017 Orders Only [facility] [address] [place] [address] Gila Winter APRN Morbid obesity due to excess calories (HCC) (Primary Dx); Weight gain 03/12/2017 5:55 PM EDT - 03/12/2017 11:59 PM EDT Hospital Encounter [facility] [address] [place] [address] Weight gain; SATYA (obstructive sleep [...] Disposition: Home or Self Care 03/12/2017 Telephone [facility] [address] [email or web address] [address] [place] [phone] Rojas Cunningham MD Medication Management 03/12/2017 4:30 PM EDT Office Visit [facility] [address] [place] [address] Weight gain (Primary Dx) 03/06/2017 Telephone [facility] [address] [email or web address] [address] [place] [phone] Rojas Cunningham MD Glucose Monitoring 03/06/2017 Telephone [facility] [address] [email or web address] [address] [place] [phone] Rojas Cunningham MD Labs Only (question about labs) 03/06/2017 9:30 AM EDT Office Visit [facility] [address] [place] [address] Gila Winter APRN Weight gain [...] Hypocalcemia 03/06/2017 11:10 AM EDT Office Visit [facility] [address] [place] [address] Rojas Cunningham MD Uncontrolled type 2 diabetes mellitus without complication, with long-term current use of insulin (HCC) (Primary Dx); Vitamin D deficiency; Post-surgical hypothyroidism 01/31/2017 4:00 PM EDT Office Visit [facility] [address] [place] [address] Gila Winter, PACK PRESS OPERATOR History of weight gain (Primary Dx); Morbid obesity due to excess calories (HCC); BMI 40.0-44.9, adult (HCC) 01/26/2017 6:00 PM EDT Office Visit [facility] [address] [place] [address] Morbid obesity due to excess calories ([facility]) 01/26/2017 Telephone [facility] [address] [place] [address] Urmila aMssey Other 01/26/2017 10:10 AM EDT Office Visit [facility] [address] [place] [address] Clif Granado MD Uncontrolled type 2 diabetes mellitus with complication, with long-term current use of insulin ([facility]) (Primary Dx); Sleep apnea, unspecified type; Morbid obesity due to excess calories ([facility]) 01/08/2017 Refill [facility] [address] [place] [address] Rojas Cunningham MD Medication Refill 01/02/2017 Telephone [facility] [address] [place], [place] [address] Belia Spence APRN Results 11/27/2016 Telephone [facility] [address] [place] [phone] Belia Spence APRN Results (labs) 11/27/2016 1:20 PM EST Office Visit [facility] [address] Belia Spence APRN Mixed dyslipidemia (Primary Dx); Uncontrolled type 2 diabetes mellitus with complication, with long-term current use of insulin (HCC); Post-surgical hypothyroidism; Follicular thyroid cancer (HCC); Essential hypertension; Sleep apnea, unspecified type; Vitamin D deficiency; Morbid obesity with BMI of 45.0-49.9, adult (HCC) 10/31/2016 Telephone [facility] [address] [place] [address] Rojas Cunningham MD Labs Only 10/31/2016 Refill [facility] [address] [place] [address] Rojas Cunningham MD Medication Refill 10/06/2016 Telephone [facility] [address] [place] [address] Rojas Cunningham MD Cancellation 10/04/2016 Telephone [facility] [address] [place] [address] Rojas Cunningham MD Labs Only 08/28/2016 Telephone [facility] [address] [place] [address] Rojas Cunningham MD Results 08/22/2016 1:10 PM EST - 08/22/2016 11:59 PM EST Hospital Encounter [facility] [address] [place] [address] Uncontrolled type 2 diabetes mellitus without complication, with long-term current use of insulin (HCC); Vitamin D deficiency; Mixed dyslipidemia; Post-surgical hypothyroidism; Follicular thyroid cancer (HCC) Discharge Disposition: Home or Self Care 08/22/2016 12:20 PM EST Office Visit [facility] [address] [address] Rojas Cunningham MD Uncontrolled type 2 diabetes mellitus without complication, with long-term current use of insulin (HCC) (Primary Dx); Follicular thyroid cancer (HCC); Post-surgical hypothyroidism; Mixed dyslipidemia; Vitamin D deficiency; Statin intolerance 08/21/2016 Telephone [facility] [address] [facility] [address] [place] [address] Rojas Cunningham MD Labs Only 08/18/2016 Telephone [facility] [address] [place] [address] Rojas Cunningham MD Labs Only (Reminder) 08/03/2016 Telephone [facility] [address] [place] [address] Rojas Cunningham MD Results 07/25/2016 Telephone [facility] [address] [place] [address] Rojas Cunningham MD Results (Body Scan) 07/14/2016 6:35 AM EDT - 07/14/2016 11:59 PM EDT Hospital Encounter [facility] [address] [place] [address] Malignant neoplasm of thyroid gland (HCC) (Primary Dx); Follicular thyroid cancer (HCC) Discharge Disposition: Home or Self Care 07/13/2016 Telephone [facility] [address] [place] [address] Rojas Cunningham MD Medical Release 06/02/2016 Telephone [facility] [address] [place] [address] Rojas Cunningham MD Results 06/02/2016 Telephone [facility] [address] [place] [address] Rojas Cunningham MD Other (I-123 ) 05/29/2016 1:35 PM EDT - 05/29/2016 11:59 PM EDT Hospital Encounter [facility] [address] [place] [address] Diabetes mellitus type 2, uncontrolled (HCC); Vitamin D deficiency; Postablative hypothyroidism; History of thyroid cancer Discharge Disposition: Home or Self Care 05/29/2016 12:10 PM EDT Office Visit [facility] [address] [facility] [address] [place] [address] Rojas Cunningham MD Diabetes mellitus type 2, uncontrolled (HCC) (Primary Dx); Postablative hypothyroidism; History of thyroid cancer; Vitamin D deficiency 05/03/2016 Telephone [facility] [address] [facility] [address] [place] [address] Rojas Cunningham MD Cancellation 02/03/2016 Telephone [facility] [address] [facility] [address] [place] [address] Rojas Cunningham MD Other (paperwork for test strips) 01/19/2016 Refill [facility] [address] [facility] [address] [place] [address] Rojas Cunningham MD Medication Refill 01/19/2016 10:40 AM EDT Office Visit [facility] [address] [facility] [address] [place] [address] Rojas Cunningham MD Diabetes mellitus type 2, uncontrolled (HCC) (Primary Dx); Primary hypothyroidism; Vitamin D deficiency 01/10/2016 Telephone [facility] [address] [facility] [address] [place] [phone] Rojas Cunningham MD Labs Only 01/06/2016 Refill [facility] [address] [facility] [address] [place] [address] Rojas Cunningham MD Medication Refill 01/04/2016 Telephone [facility] [address] [place] [address] Rojas Cunningham MD Procedure 12/15/2015 Telephone [facility] [address] [place] [address] Rojas Cunningham MD Other 12/10/2015 Telephone [facility] [address] [place] [address] Rojas Cunningham MD Cancellation 11/04/2015 Telephone [facility] [address] [place] [address] Rojas Cunningham MD Other (approval for [facility] [place] [facility]) 09/16/2015 Telephone [facility] [address] [place] [address] Rojas Cunningham MD Lab Orders 09/16/2015 Refill [facility] [address] [place] [address] Rojas Cunningham MD Medication Refill 09/16/2015 Refill [facility] [address] [place] [address] Rojas Cunningham MD Medication Refill 08/26/2015 Telephone [facility] [address] [place] [address] Rojas Cunningham MD Reschedule 07/15/2015 Telephone [facility] [address] [place] [address] Rojas Cunningham MD Medication Management 06/22/2015 2:50 PM EDT Office Visit [facility] [address] [place] [address] Rojas Cunningham MD Diabetes mellitus type 2, uncontrolled (HCC) (Primary Dx); Mixed dyslipidemia; Vitamin D deficiency 06/15/2015 Telephone [facility] [address] [place] [address] Rojas Cunningham MD Labs Only 05/12/2015 Telephone [facility] [address] [place] [address] Rojas Cunningham MD Reschedule; Labs Only 04/14/2015 Refill [place] [address] [email or web address] [address] [place] [address] Rojas Cunningham MD Medication Refill 02/09/2015 Telephone [place] [address] [email or web address] [address] [place] [address] Rojas Cunningham MD Other (questions re:scripts) 02/09/2015 1:40 PM EDT Office Visit [place] [address] [email or web address] [address] [place] [address] Rojas Cunningham MD Diabetes mellitus type 2, uncontrolled (HCC) (Primary Dx); Mixed dyslipidemia; Thyroid nodule; Vitamin D deficiency; Statin intolerance 02/08/2015 Telephone [facility] [address] [email or web address] [address] [place] [address] Rojas Cunningham MD Labs Only 02/02/2015 Telephone [facility] [address] [email or web address] [address] [place] [address] Rojas Cunningham MD Lab Orders 02/01/2015 Telephone [facility] [address] [email or web address] [address] [place] [address] Rojas Cunningham MD Labs Only 01/15/2015 Telephone [facility] [address] [place] [address] Rojas Cunningham MD Reschedule 12/11/2014 Telephone [facility] [address] [place] [address] Rojas Cunningham MD Medication Refill 11/09/2014 Telephone [facility] [address] [place] [phone] Rojas Cunningham MD Glucose Monitoring (BG logs) 11/03/2014 Telephone [facility] [address] [place] [phone] Rojas Cunningham MD Medication Management 10/26/2014 Telephone [facility] [address] [place] [phone] Rojas Cunningham MD Results 10/20/2014 1:20 PM EST Office Visit [facility] [address] [place] [phone] Rojas Cunningham MD Diabetes mellitus type 2, uncontrolled (HCC) (Primary Dx); Mixed dyslipidemia; Thyroid nodule; Vitamin D deficiency 10/15/2014 Telephone [facility] [address] [place] [phone] Rojas Cunningham MD Labs Only 10/13/2014 Telephone [facility] [address] [place] [phone] Rojas Cunningham MD Lab Orders 10/09/2014 Telephone [facility] [address] [place] [phone] Rojas Cunningham MD Labs Only 07/24/2014 Telephone [facility] [address] [place] [address] Rojas Cnuningham MD Medication Management (U500 - resume) 07/16/2014 Telephone [facility] [address] [facility] [address] [place] [address] Rojas Cunningham MD Medication Management 06/18/2014 Telephone [facility] [address] [facility] [address] [place] [address] Juanita Sims, RD,LD,CDE Diabetes (I pro interpretation U 500 Vgo 20) 06/11/2014 Telephone [facility] [address] [place] [address] Shannan Wolfe RN,CDE Other (scalp lesions) 06/11/2014 2:40 PM EDT Office Visit [place] [address] Rojas Cunnignham MD Diabetes mellitus type 2, uncontrolled (HCC) (Primary Dx); Mixed dyslipidemia; Vitamin D deficiency 06/04/[address] [facility] [address] [place] [address] Rojas Cunningham MD Medication Refill 05/29/2014 Telephone [facility] [address] [facility] [address] [place] [address] Rojas Cunningham MD Other (Pt.Asst/Senia) 05/13/2014 Telephone [facility] [place] [address] [place] [address] Rojas Cunningham MD Glucose Monitoring 04/22/2014 Telephone [facility] [address] [place] [address] Rojas Cunningham MD Other (Vgo/U500) 04/13/2014 Telephone [facility] [address] [email or web address] [address] [place] [phone] Rojas Cunningham MD Medication Management (Krys Cares form) 04/07/2014 Telephone [facility] [address] [facility] [address] [place] [phone] Shannan Keita, FREDDY,CDE Other 03/27/2014 Refill [facility] [address] [facility] [address] [place] [phone] Rojas Cunningham MD Medication Refill 03/19/2014 1:30 PM EDT Office Visit [facility] [address] [address] Boris May MD Diabetes mellitus type 2, uncontrolled (HCC) (Primary Dx); Myopic astigmatism, bilateral; Presbyopia OU; Dry eyes, bilateral 03/17/2014 3:00 PM EDT Office Visit [facility] [address] [address] Chris Serra MD Mixed dyslipidemia (Primary Dx); Hypertension; Chest pain 03/16/2014 Telephone [place] [address] [email or web address] [place] [phone] Rojas Cunningham MD Medication Management 03/12/2014 Telephone [facility] [address] [email or web address] [address] [place] [phone] Rojas Cunningham MD Results 03/10/2014 12:00 PM EDT Office Visit [facility] [address] [email or web address] [address] [address] Rojas Cunningham MD Diabetes mellitus type 2, uncontrolled (HCC) (Primary Dx); Mixed dyslipidemia; Thyroid nodule; Vitamin D deficiency 03/05/2014 Telephone [facility] [address] [email or web address] [address] [place], [place] [phone] Shannan Wolfe, RN,CDE Diabetes; Glucose Monitoring 03/04/2014 Telephone [facility] [address] [facility] [address] [place] [address] Rojas Cunningham MD Other ([facility] lab orders) 03/04/2014 Telephone [facility] [address] [facility] [address] [place] [phone] Selma Kruger, BEST,CDE Diabetes (question) 03/03/2014 Telephone [facility] [address] [facility] [address] [place] [address] Rojas Cunningham MD Other (calling in BS) 02/16/2014 Telephone [facility] [address] [facility] [address] [place] [address] Rojas Cunningham MD Labs Only 02/11/2014 Telephone [facility] [address] [facility] [address] [place] [address] Rojas Cunningham MD Medication Management 02/10/2014 Telephone [facility] [address] [facility] [address] [place] [address] Priscilla Patel RN,CDE Insulin Titration (U500 start) 02/10/2014 11:20 AM EDT Office Visit [facility] [address] [facility] [address] [place] [phone] Rojas Cunningham MD Diabetes mellitus type 2, uncontrolled (HCC) (Primary Dx); Mixed dyslipidemia; Thyroid nodule; Vitamin D deficiency 01/30/2014 3:35 PM EDT - 01/30/2014 11:59 PM EDT Hospital Encounter [facility] [address] [place] [address] Vitamin D deficiency (Primary Dx); Diabetes mellitus type 2, uncontrolled (HCC); Thyroid nodule; Mixed dyslipidemia Discharge Disposition: Home or Self Care 01/30/2014 Telephone [place] [address] [place] [address] Rojas Cunningham MD Samples (Levemir/Novolog) 01/28/2014 Telephone [facility] [address] [place] [address] Rojas Cunningham MD Reschedule 12/26/2013 Telephone [place] [address] [place] [address] Rojas Cunningham MD Medication Management 12/25/2013 Telephone [place] [address] [place] [address] Rojas Cunningham MD Glucose Monitoring (download meter) 12/25/[address] [place] [address] Rojas Cunningham MD Samples (Levemir/Novolog) 12/16/[address] [place] [address] Rojas Cunningham MD Medication Management 12/11/2013 [place] [address] Chris Serra MD Medication Refill 12/11/2013 [place] [address] Chris Serra MD No Show 11/21/2013 Telephone [facility] [address] [place] [address] Rojas Cunningham MD Glucose Monitoring 11/19/[address] [place] [address] Rojas Cunningham MD Medication Management 11/03/2013 Telephone [facility] [address] [place] [address] Rojas Cunningham MD Medication Refill 10/31/2013 Telephone [place] [address] [address] [place] [address] Rojas Cunningham MD Reschedule 10/07/2013 11:20 AM EST Office Visit [place] [address] [address] [place] [address] Rojas Cunningham MD Diabetes mellitus type 2, uncontrolled (HCC) (Primary Dx); Mixed dyslipidemia; Vitamin D deficiency; Thyroid nodule 09/29/2013 12:25 PM EST - 09/29/2013 11:59 PM EST Hospital Encounter [facility] [place] [address] [place] [address] Hyperlipidemia (Primary Dx); Diabetes mellitus type 2, uncontrolled (HCC); Thyroid nodule; Hypovitaminosis D Discharge Disposition: Home or Self Care 09/29/2013 Telephone [place] [address] [address] [place] [address] Rojas Cunningham MD Other (downloaded meter) 09/23/2013 Orders Only [place] [address] [address] 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 [place] [address] Rojas Cunningham MD Other (blood sugar logs) 08/20/2013 Telephone [facility] [address] [place] [address] Rojas Cunningham MD Results 08/14/2013 12:25 PM EST - 08/14/2013 11:59 PM EST Hospital Encounter [facility] [address] [place] [address] Diabetes mellitus type 2, uncontrolled (HCC) (Primary Dx); Vitamin D deficiency; Mixed hyperlipidemia Discharge Disposition: Home or Self Care 08/14/2013 11:40 AM EST Office Visit [facility] [address] [place] [address] Rojas Cunningham MD Diabetes mellitus type 2, uncontrolled (HCC) (Primary Dx); Mixed hyperlipidemia; Vitamin D deficiency 08/11/2013 Telephone [facility] [address] [place] [address] Rojas Cunningham MD Labs Only 08/06/2013 Refill [facility] [address] [address] Chris Serra MD Medication Refill 07/16/2013 Refill [facility] [address] [place] [phone] Rojas Cunningham MD Medication Refill 07/15/2013 Refill [place] [address] [place] [address] Rojas Cunningham MD Medication Refill 07/15/2013 Refill [facility] [address] [place] [address] Joe Ambrosio MD Medication Refill 07/08/2013 Abstract [facility] [address] [place] [phone] Emerald Amato MA 07/02/2013 5:00 PM EDT [facility] [address] [address] Boris Sarmiento MD Leg cramps (Primary Dx) 07/02/2013 12:50 PM EDT Office Visit [facility] [address] [place] [address] Rojas Cunningham MD Diabetes mellitus type 2, uncontrolled (HCC) (Primary Dx); Vitamin d deficiency; Mixed hyperlipidemia 07/01/2013 Telephone [facility] [address] [place] [phone] Rojas Cunningham MD Follow-up 06/23/2013 2:40 PM EDT - 06/25/2013 2:37 PM EDT Hospital Encounter [facility] [place] [address] Boris Rodriguez MD Pilger, Jeffrey M, MD Upadhayay, Niraj, MD Hypertensive urgency (Primary Dx); Chest pain; Paresthesia; Sleep apnea; Diabetes mellitus type 2, uncontrolled (HCC); Facial droop; Fibromyalgia; Hyperlipidemia; Angina at rest; Hypertension; Unspecified essential hypertension; Chest pain, unspecified; Disturbance of skin sensation Discharge Disposition: Home or Self Care 06/23/2013 Telephone [facility] [place] [phone] Chris Serra MD Edema; Pain (neck/shoulder) 06/10/2013 9:15 AM EDT Office Visit [facility] [address] [phone] Chris Serra MD Hyperlipidemia (Primary Dx); Hypertension; CHF (congestive heart failure) (HCC); Chest pain; Left sided numbness; Other screening mammogram 04/17/2013 11:30 AM EDT - 04/17/2013 11:59 PM EDT Hospital Encounter [facility] Sleep Disorder [facility] [address] [facility] [address] [place] [address] Emre Houston MD Sleep apnea (Primary Dx); Fibromyalgia; Hyperlipidemia; Diabetes mellitus type 2, uncontrolled (HCC); Hypertension; Obesity; Chest pain; Left sided numbness; CHF (congestive heart failure) (HCC) Discharge Disposition: Home or Self Care 04/16/2013 [facility] [address] [place] [address] Asha Ambrocio MA Other 03/28/2013 11:20 AM EDT Office Visit [facility] [place] [address] [place] [address] Boris Sarmiento MD Abscess of groin, left (Primary Dx) 02/18/2013 Refill [facility] [address] [address] Chris Serra MD Medication Refill 02/18/2013 Refill [facility] [place] [address] Lonnie Dotson MD Medication Refill 02/06/2013 9:20 AM EDT Office Visit [facility] [place] [address] [address] Boris Sarmiento MD Sore throat (Primary Dx); Cervical lymphadenopathy; Viral gastroenteritis 01/22/2013 1:15 PM EDT Office Visit [facility] [address] Chris Serra MD Hypertension (Primary Dx); CHF (congestive heart failure) (HCC); Hyperlipidemia; Fibromyalgia; Chest pain 01/14/2013 Telephone [facility] [place] [address] [place] [address] Boris Sarmiento MD Visit Follow Up 01/10/2013 11:10 AM EDT Office Visit [facility] [place] [address] [place] [address] Boris Sarmiento MD Diabetes mellitus type 2, uncontrolled (HCC) (Primary Dx); Hypertension; Hyperlipidemia; CHF (congestive heart failure) (HCC); Headache 01/01/2013 6:05 PM EDT - 01/05/2013 1:55 PM EDT Hospital Encounter [facility] [place] [address] Boris Rivas MD Connelly, Kevin D, MD [...] AM EDT Surgery Chris Serra MD CARDIAC PROCEDURE-SALES EXECUTIVE INSURANCE ONLY 12/11/2012 Telephone [facility] Diabetes [place] [address] [address] [place] [phone] Rojas Cunningham MD Labs Only 11/14/2012 Telephone [place] [address] [place] [address] Rojas Cunningham MD Wound Infection 09/25/2012 Telephone [place] [address] [place] [phone] Rojas Cunningham MD Other (report blood sugar) 09/24/2012 9:00 AM EST - 09/24/2012 11:59 PM [facility] Hospital Encounter [facility] Sleep Disorder [address] [place] [phone] Emre Houston MD Sleep apnea (Primary Dx); Fibromyalgia; Hyperlipidemia; Diabetes mellitus type 2, uncontrolled (HCC); Hypertension; Obesity Discharge Disposition: Home or Self Care 09/13/2012 Telephone [place] [address] [place] [address],CDE Other (bs logs) 09/06/2012 Telephone [place] [address] [place] [address],LD,CDE Diabetes (U 500) 08/26/2012 Telephone [place] [address] [address] [place] [address] Rojas Cunningham MD Medication Problem 08/13/2012 Telephone [place] [address] [address] [place] [address] Rojas Cunningham MD Medication Management 08/12/2012 Telephone [place] [address] [address] [place] [address] Willa Genao, RN,CDE Medication Management 08/12/2012 Telephone [place] [address] [address] [place] [phone] Willa Genao, RN,CDE Medication Management 08/12/2012 11:00 AM EST Office Visit [place] [address] [address] [place] [address] Rojas Cunningham MD Diabetes mellitus type 2, uncontrolled (HCC) (Primary Dx); Vitamin d deficiency; Hyperlipidemia; Thyroid nodule 08/09/2012 1:40 PM EDT - 08/09/2012 11:59 PM EDT Hospital Encounter [facility] [address] [place] [address] Diabetes mellitus type 2, uncontrolled (HCC); Hyperlipidemia; Vitamin d deficiency Discharge Disposition: Home or Self Care 08/06/2012 Telephone [place] [address] [address] [place] [phone] Rojas Cunningham MD Labs Only 07/31/2012 Telephone [place] [address] [address] [place] [address] Juanita Schuster, FREDDY,LD,CDE Diabetes (blood sugar logs) 07/23/2012 Telephone [facility] [address] [place] [address] Shannan Wolfe RN,CDE Other 07/15/2012 7:10 PM EDT - 07/15/2012 10:48 PM EDT Emergency [facility] [address] [place], [place] [address] Billie Bueno MD Abdominal pain, other specified site; Vomiting alone; Unspecified essential hypertension; Type II or unspecified type diabetes mellitus without mention of complication, not stated as uncontrolled (HCC) Discharge Disposition: Home or Self Care 06/25/2012 Telephone [facility] Diabetes [place] [address] [address] [place] [phone] Shannan Wolfe RN,CDE Diabetes 06/25/2012 9:45 AM EDT - 06/25/2012 11:59 PM EDT Hospital Encounter [facility] Sleep Disorder Center [address] [place] [address] Emre Houston MD Sleep apnea (Primary Dx); Fibromyalgia; Hyperlipidemia; Diabetes mellitus type 2, uncontrolled (HCC); Hypertension; Obesity Discharge Disposition: Home or Self Care 06/16/2012 11:47 AM EDT - 06/16/2012 12:21 PM EDT Emergency [facility] [address] [place] [address] Sadi Joe MD Plantar fasciitis; Peripheral neuropathy Discharge Disposition: Home or Self Care 06/05/2012 Telephone [facility] Diabetes [place] [address] [place] [phone] Rojas Cunningham MD Other (error) 06/04/2012 Telephone [facility] Diabetes [place] [address] [address] [place] [phone] Willa Genao RN,CDE Blood Sugar Problem 05/30/2012 Telephone [facility] Diabetes [place] [address] [place] [address] Shannan Wolfe RN,CDE Blood Sugar Problem 05/22/2012 Telephone [facility] Diabetes [place] [address] [place] [address] Willa Genao RN,CDE Other (Order new test strips) 05/22/2012 Telephone [facility] Diabetes [place] [address] [place] [address] Willa Genao RN,CDE Medication Management 05/01/2012 Telephone [facility] Diabetes [facility] [place] [address] [place] [address] Rojas Cunningham MD Results 04/28/2012 7:00 PM EDT - 04/28/2012 11:59 PM EDT Hospital Encounter [facility] Sleep Disorder [address] [place] [id number] Obstructive sleep apnea (Primary Dx) Discharge Disposition: Home or Self Care 04/25/2012 12:32 PM EDT - 04/25/2012 11:59 PM EDT Hospital Encounter [facility] [place] [address] Tristan Ron MD Dysphagia Discharge Disposition: Home or Self Care 04/23/2012 9:14 AM EDT - 04/23/2012 11:59 PM EDT Hospital Encounter [facility] Sleep Disorder [place] [phone] Emre Houston MD Sleep apnea (Primary Dx); Obesity; Fibromyalgia; Diabetes mellitus type 2, uncontrolled (HCC); Hypertension; Poor sleep hygiene Discharge Disposition: Home or Self Care 04/18/2012 Telephone [facility] [address] [place] [address] Aimee Noel RMA Results 04/15/2012 9:00 AM EDT - 04/15/2012 11:59 PM EDT Hospital Encounter [facility] [address] [place] [address] Tristan Ron MD Thyroid mass Discharge Disposition: Home or Self Care 04/10/2012 7:00 PM EDT - 04/10/2012 11:59 PM EDT Hospital Encounter [facility] Sleep Disorder [address] [address] Obstructive sleep apnea (Primary Dx) Discharge Disposition: Home or Self Care 04/09/2012 Telephone [facility] [address] [place] [address] EnglandTiffany espinosa CMA Medication Management 04/09/2012 9:45 AM EDT - 04/09/2012 11:59 PM EDT Hospital Encounter [facility] Sleep Disorder Center [address] [place] [address] Emre Houston MD Discharge Disposition: Home or Self Care 04/08/2012 8:37 AM EDT - 04/08/2012 11:59 PM EDT Hospital Encounter [facility] [address] [place] [address] Joe Ambrosio MD Dysarthria; Facial weakness Discharge Disposition: Home or Self Care 04/03/2012 10:35 AM EDT - 04/03/2012 11:59 PM EDT Hospital Encounter [facility] [address] [place] [address] Diabetes mellitus type 2, uncontrolled (HCC); Vitamin D deficiency; FHx: early coronary artery disease; Thyroid nodule Discharge Disposition: Home or Self Care 04/03/2012 9:40 AM EDT Office Visit [facility] Diabetes [place] [address] [place] [address] Rojas Cunningham MD Diabetes mellitus type 2, uncontrolled (HCC) (Primary Dx); Thyroid nodule; Vitamin D deficiency; FHx: early coronary artery disease 04/02/2012 10:50 AM EDT - 04/02/2012 11:59 PM EDT Hospital Encounter [facility] [address] [place] [id number] Diabetes mellitus type 2, uncontrolled (HCC); Hyperlipidemia; Hypertension; Obesity; Thyroid nodule Discharge Disposition: Home or Self Care 04/01/2012 Telephone [facility] [address] [place] [place] [address] Joe Ambrosio MD Medication Change 04/01/2012 Telephone [facility] [address] [place] [address] Rojas Cunningham MD Labs Only 04/01/2012 11:00 AM EDT Office Visit [facility] [address] [place] [address] Joe Ambrosio MD Migraine; Obesity; Fibromyalgia; Hypertension; Diabetes mellitus type 2, uncontrolled (HCC); Hyperlipidemia; Sleep apnea; Dysarthria; Facial weakness 02/29/2012 Telephone [place] [address] [place] [address] Ara Howell APRN Medication Management (?refill for Bentyl?) 02/19/2012 2:32 PM EDT - 02/19/2012 5:35 PM EDT Emergency [facility] [place] [address] Kyle Cortez MD Gastroenteritis Discharge Disposition: Home or Self Care 02/13/2012 11:12 AM EDT - 02/13/2012 11:59 PM EDT Hospital Encounter [facility] [address] [place] [address] Georgette Isbell Demyelinating disease of central nervous system, unspecified (HCC) Discharge Disposition: Home or Self Care 02/01/2012 1:15 PM EDT - 02/01/2012 11:59 PM EDT Hospital Encounter [facility] [address] [place] [phone] Arely Karimi MD Sarcoidosis Discharge Disposition: Home or Self Care 01/31/2012 Telephone [place] [address] [place] [address] Armando Chaves MD Release of Information 01/24/2012 1:00 PM EDT Office Visit [place] [address] [place] [address] Juanita Schuster, RD,LD,CDE Diabetes mellitus type 2, uncontrolled (HCC) (Primary Dx) 01/11/2012 Telephone [facility] Diabetes [place] [address] [place] [address] Armando Chaves MD Results 01/11/2012 1:30 PM EDT Office Visit [facility] Diabetes [place] [address] [place] [address] Michela Morton RN,CDE Diabetes mellitus type 2, uncontrolled (HCC); Hyperlipidemia; Hypertension; Obesity; Thyroid nodule 01/05/2012 Telephone [facility] [address] [place] [address] Armando Chaves MD Medication Refill 01/05/2012 Telephone [facility] [address] [place] [address] Ara Howell APRN Results 01/04/2012 11:05 AM EDT - 01/04/2012 11:59 PM EDT Hospital Encounter [facility] [address] [place] [address] Diabetes mellitus type 2, uncontrolled (HCC); Hyperlipidemia; Hypertension; Obesity; Hot flashes Discharge Disposition: Home or Self Care 12/29/2011 Telephone [facility] [address] [place] [address] Tanvi Guy Referral (Diabetes Education) 12/28/2011 3:10 PM EDT Office Visit [facility] [address] [place] [address] Ara Howell APRN Diabetes mellitus type 2, uncontrolled (HCC); Hyperlipidemia; Hypertension; Obesity; Thyroid nodule 12/26/2011 Telephone [facility] [address] [place] [address] Armando Chaves MD Labs Only 11/22/2011 9:55 AM EST - 11/22/2011 11:59 PM EST Hospital Encounter [place] [facility] [place] [address] Georgette Isbell Chest pain, unspecified Discharge Disposition: Home or Self Care 11/09/2011 10:14 PM EST - 11/10/2011 2:20 AM EST [facility] [address] [place] [address] Cal Pate MD Abdominal pain Discharge Disposition: Home or Self Care 11/02/2011 Telephone [facility] [address] [place] [address] Harper Mcgrath MD Follow-up 09/15/2011 7:30 AM EST - 09/15/2011 11:59 PM EST Hospital Encounter [facility] Hand [address] [place] [address] Emerald Yan PT CHT Discharge Disposition: Home or Self Care 09/11/2011 Telephone [facility] [address] [place] [address] Michela Morton, RN,CDE Other (log) 08/25/2011 1:00 PM EST - 08/25/2011 11:59 PM EST Hospital Encounter [facility] [place] [address] Tristan Ron MD Thyroid mass Discharge Disposition: Home or Self Care 08/24/2011 Telephone [facility] [address] [place] [address] Michela Morton, BEST,CDE Other (log) 08/18/2011 8:40 AM EST Office Visit [facility] [address] [place] [address] Harper Mcgrath MD Diabetes mellitus type 2, uncontrolled (HCC) (Primary Dx); Hyperlipidemia; Hypertension; Obesity; Hot flashes 08/16/2011 1:45 PM EST - 08/16/2011 11:59 PM EST Hospital Encounter [facility] [address] [facility] [place] [phone] Tristan Ron MD Thyroid mass Discharge Disposition: Home or Self Care 07/25/2011 1:30 PM EDT Office Visit [facility] [address] [place] [address] Michela Morton RN,CDE Diabetes mellitus type 2, uncontrolled (HCC) 07/18/2011 1:30 PM EDT Office Visit [facility] Diabetes [facility] [address] [place] [address] Michela Morton BEST,CDE Diabetes mellitus type 2, uncontrolled (HCC) (Primary Dx) 07/11/2011 1:30 PM EDT Office Visit [facility] [address] [place] [address],LD,CDE Diabetes mellitus type 2, uncontrolled (HCC) (Primary Dx) 07/06/2011 8:45 AM EDT - 07/06/2011 9:00 AM EDT Surgery [place] [place] [address] Edyta Chun MD CARPAL TUNNEL RELEASE 07/06/2011 5:45 AM EDT - 07/06/2011 9:05 AM EDT Hospital Encounter [facility] [place] [address] Edyta Chun MD Discharge Disposition: Home or Self Care 06/27/2011 Telephone [facility] [address] [place] [address] Rachael Carvalho RN Blood Sugar Problem 06/27/2011 10:10 AM EDT Office Visit [facility] [address] [place] [address],CDE Diabetes mellitus type 2, uncontrolled (HCC) 06/14/2011 10:45 AM EDT - 06/14/2011 11:59 PM EDT Hospital Encounter [facility] [place] [address] Hyperlipidemia; Hypertension; Hot flashes; Diabetes mellitus type 2, uncontrolled (HCC) Discharge Disposition: Home or Self Care 05/31/2011 9:00 AM EDT Office Visit [facility] Diabetes [facility] [address] [place] [address] Harper Mcgrath MD Diabetes mellitus type 2, uncontrolled (HCC) (Primary Dx); Hot flashes; Hyperlipidemia; Hypertension; Obesity 05/25/2011 3:11 PM EDT - 05/25/2011 11:59 PM EDT Hospital Encounter [facility] [address] [place] [address] Mendel Resendiz DO Carpal tunnel syndrome Discharge Disposition: Home or Self Care 05/25/2011 1:55 PM EDT - 05/25/2011 3:10 PM EDT Hospital Encounter [facility] [address] [place] [address] Mendel Resendiz, Disturbance of skin sensation; Blurred vision; Urinary incontinence Discharge Disposition: Home or Self Care 05/11/2011 1:46 PM EDT - 05/11/2011 11:59 PM EDT Hospital Encounter [facility] [address] [place] [address] Wiley Garza MD Stone Discharge Disposition: Home or Self Care 05/11/2011 1:45 PM EDT Hospital Encounter [facility] [address] [place] [address] Wiley Garza MD Back pain; History of kidney stones; Flank pain Discharge Disposition: Home or Self Care 12/27/2010 1:45 PM EDT - 12/27/2010 2:40 PM EDT Surgery [facility] [address] [place] [address] Wiley Garza MD CYSTOSCOPY BLADDER /URETHRA BIOPSY 12/27/2010 11:49 AM EDT - 12/27/2010 4:57 PM EDT Hospital Encounter [facility] SAME DAY [facility] [address] [place] [address] Wiley Garza MD Discharge Disposition: Home or Self Care 12/23/2010 10:00 AM EDT - 12/23/2010 11:59 PM EDT Hospital Encounter [facility] PRE-ADMIT TEST[facility] [address] [place] [address] Pat, [facility] Discharge Disposition: Home or Self Care 11/29/2010 9:11 AM EST - 11/29/2010 11:59 PM EST Hospital Encounter [facility] [address] [place] [address] Mendel Resendiz DO Pyelonephritis, unspecified; Abdominal pain, unspecified site; Abdominal pain, right upper quadrant; Other abnormal blood chemistry Discharge Disposition: Home or Self Care 11/25/2010 12:37 AM EST - 11/25/2010 3:54 AM EST Emergency [facility] [address] [place] [address] Mahesh Page MD Pyelonephritis; Elevated liver function tests; Abdominal pain, right upper quadrant; Right flank pain Discharge Disposition: Home or Self Care 11/11/2010 2:30 PM EST - 11/11/2010 11:59 PM EST Hospital Encounter [facility] [address] [place] [address] Wiley Garza MD Pain Discharge Disposition: Home or Self Care 07/18/2010 2:43 PM EDT - 07/19/2010 6:44 PM EDT Hospital Encounter [facility] [address] [place] [address] Mahesh Page MD Laib, Emily A, MD [...] PM EDT Hospital Encounter [facility] LXE EDG [facility] Santos 04/13/1999 6:08 AM EDT - 04/13/1999 [...] 7:27 PM EST [facility] 12:33 PM EST - 09/15/1994 11:59 PM EST Hospital Encounter [facility] 08/30[facility]1994 10:59 AM EST - 08/30/1994 4:50 PM EST [facility] 08/11/1994 5:37 AM EST - [...] times daily. Active L GASSERI/B BIFIDUM/B LONGUM ([facility] HE[facility] ORAL) Take by mouth. Ac tive [...] 18 Active fluticasone (FLONASE) 50 mcg/actuation Nasl [place], Suspension 06/25/20 18 Active EPINEPHrine (EPIPEN) 0.3 [...] Reported on 02/23/2025 FREESTYLE PRECISION NUBIA STRIPS [facility] StripIndications:U ncontrolled type 2 diabetes mellitus with [...] ve ONETOUCH DELICA PLUS LANCET 33 gauge [facility] MiscIndications:Dy slipidemia associated with type 2 diabetes mellitus (HCC) 1 Each by Mis.(Non-Drug; Combo Route) route 4 times daily. 150 Each 02/16/20 Active Insulin [place], Disposable, (SAMMIE PEN NEEDLE) 32 gauge x [facility] NeedleIndications: Dyslipidemia associated with type 2 diabetes mellitus (HCC) Use as directed to inject insulins 4 times daily 120 Each 05/09/20 Active ONETOUCH VERIO TEST STRIPS [facility] StripIndications:D yslipidemia associated with type 2 diabetes [...] hyperglycemia, with long-term current use of insulin ([facility]) Subcutaneous (Inject under the skin) 0.5 mL once a week. 2 mL 5 09/05/20 23 Active glimepiride (AMARYL) 4 mg Oral TabletIndications: Type 2 diabetes mellitus with hyperglycemia, with long-term current use of insulin ([facility]) Take 1 Tablet by mouth [...] 08/20/20 Active Blood-Glucose Sensor (DEXCOM G7 SENSOR) [facility] DeviceIndications: Dyslipidemia associated with type 2 diabetes mellitus (HCC) 1 Each by [facility].(Non-Drug; Combo Route) route every 10 days. 08/26/20 [...] dyslipidemia 10/07/2013 Overview (10/31/2019): Managed by Endocrinology. Slovenian Score of 4 Has Fhx od premature [...] Me Social History Smoking Status as of 06/01/2025 Tobacco Use Types Packs/Day Years Used Date [...] 07/01/2025 3:20 PM EDT Office [facility] [place] [address] [facility] [address] [place] [phone] Rojas Cunningham MD [address] [facility] [address] [place] [phone] Procedures Procedure Name Priority Date/Time Associated [...] complication, with long-term current use of insulin ([facility]) Vitamin D deficiency Mixed dyslipidemia APOLIPOPROTEIN B-REF LAB Routine 01/08/2019 Uncontrolled type 2 diabetes mellitus with complication, with long-term current use of insulin ([facility]) Vitamin D deficiency Mixed dyslipidemia C-REACTIVE PROTEIN Routine 01/08/2019 Uncontrolled type 2 diabetes mellitus with complication, with long-term current use of insulin ([facility]) Vitamin D deficiency Mixed dyslipidemia COMPREHENSIVE METABOLIC PANEL Routine 01/08/2019 Uncontrolled type 2 diabetes mellitus with complication, with long-term current use of insulin ([facility]) Vitamin D deficiency Mixed dyslipidemia FRUCTOSAMINE -REF LAB Routine 01/08/2019 Uncontrolled type 2 diabetes mellitus with complication, with long-term current use of insulin ([facility]) Vitamin D deficiency Mixed dyslipidemia HEMOGLOBIN A1C Routine 01/08/2019 Uncontrolled type 2 diabetes mellitus with complication, with long-term current use of insulin ([facility]) Vitamin D deficiency Mixed dyslipidemia T4, FREE (THYROXINE) Routine 01/08/2019 Uncontrolled type 2 diabetes mellitus with complication, with long-term current use of insulin ([facility]) Vitamin D deficiency Mixed dyslipidemia THYROID STIMULATING HORMONE Routine 01/08/2019 Uncontrolled type 2 diabetes mellitus with complication, with long-term current use of insulin ([facility]) Vitamin D deficiency Mixed dyslipidemia [...] complication, with long-term current use of insulin ([facility]) Vitamin D deficiency Mixed dyslipidemia COMPREHENSIVE METABOLIC PANEL Routine 06/12/2018 Uncontrolled type 2 diabetes mellitus with complication, with long-term current use of insulin ([facility]) Vitamin D deficiency Mixed dyslipidemia FRUCTOSAMINE -REF LAB Routine 06/12/2018 Uncontrolled type 2 diabetes mellitus with complication, with long-term current use of insulin ([facility]) Vitamin D deficiency Mixed dyslipidemia HEMOGLOBIN A1C Routine 06/12/2018 Uncontrolled type 2 diabetes mellitus with complication, with long-term current use of insulin ([facility]) Vitamin D deficiency Mixed dyslipidemia URIC ACID Routine 06/12/2018 Uncontrolled type 2 diabetes mellitus with complication, with long-term current use of insulin ([facility]) Vitamin D deficiency Mixed dyslipidemia VITAMIN D 25 HYDROXY Routine 06/12/2018 Uncontrolled type 2 diabetes mellitus with complication, with long-term current use of insulin ([facility]) Vitamin D deficiency Mixed dyslipidemia VITAMIN B12 LEVEL Routine 06/12/2018 Uncontrolled type 2 diabetes mellitus with complication, with long-term current use of insulin ([facility]) Vitamin D deficiency Mixed dyslipidemia LIPID PANEL REFLEX Routine 06/12/2018 Uncontrolled type 2 diabetes mellitus with complication, with long-term current use of insulin ([facility]) Vitamin D deficiency Mixed dyslipidemia APOLIPOPROTEIN B-REF LAB Routine 06/12/2018 Uncontrolled type 2 diabetes mellitus with complication, with long-term current use of insulin ([facility]) Vitamin D deficiency Mixed dyslipidemia [...] CA, DM. Father with CVA,dementia, ASHD s/p AL, HTN and HLD CARD.SURG: none CARD. RISK FACTORS: HTN, DM, ASHD and HLD LHC with FFR on 01/03/13 Following completion of the diagnostic procedure, fractional flow reserveassessment of the mid left anterior descending artery was performed. 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 Chest [...] TUNNEL RELEASE performed by EDYTA CHUN at [facility] Family History Problem Relation Age of [...] 200 Syringe 11 Lancets (ONE TOUCH DELICA) [facility] Please dispense 1 box of lancets every30 [...] Tab 1 Tab OralNightly PRN Arehart, Abril, PACK PRESS OPERATOR acetaminophen (TYLENOL) tablet 650 mg 650 mg Oral Q4H PRN Arehart,Abril, PACK PRESS OPERATOR Or acetaminophen (TYLENOL) suppository 650 mg 650 mg Rectal Q4H PRNArehart, Abril, PACK PRESS OPERATOR Sodium Chloride 0.9 % Syrg 5 mL 5 mL Intravenous Q8H GUILLERMO Arehart, Abril,PACK PRESS OPERATOR 5 mL at 06/24/13 0515 And Sodium Chloride 0.9 % Syrg 5 mL 5 mL Intravenous PRN Arehart, Abril,PACK PRESS OPERATOR dextrose solution 25 mL 25 mL Intravenous PRN Arehart, Abril, PACK PRESS OPERATOR glucagon (human recombinant) (GLUCAGEN) injection 1 mg 1 mgIntramuscular PRN Arehart, Abril, PACK PRESS OPERATOR insulin aspart (NovoLOG) injection 1-10 Units 1-10 Units SubcutaneousQID WM Arehart, Abril, PACK PRESS OPERATOR 4 Units at 06/24/13 0945 albuterol (PROVENTIL HFA; VENTOLIN HFA) INHALER 2 Puff 2 PuffInhalation Q6H PRN Arehart, Abril, PACK PRESS OPERATOR aspirin tablet 325 mg 325 mg Oral Daily Arehart, Abril, PACK PRESS OPERATOR 325 mg at06/24/13 0945 atorvastatin (LIPITOR) tablet 10 mg 10 mg Oral Nightly Arehart, Abril,PACK PRESS OPERATOR 10 mg at 06/23/13 2245 DULoxetine (CYMBALTA) capsule 60 mg 60 mg Oral BID Arehart, Abril, APRN60 mg at 06/24/13 0945 pantoprazole (PROTONIX) tablet 40 mg 40 mg Oral BID Arehart, Abril, APRN40 mg at 06/24/13 0945 nitroGLYCERIN (NITROSTAT) SL tablet 0.4 mg 0.4 mg Sublingual Q5 Min PRNArehart, Abril, PACK PRESS OPERATOR topiramate (TOPAMAX) tablet 200 mg 200 mg Oral Nightly Arehart, Abril,PACK PRESS OPERATOR topiramate (TOPAMAX) tablet 150 mg 150 mg Oral Daily Arehart, Abril,PACK PRESS OPERATOR 150 mg at 06/24/13 0945 Allergies Allergen [...] note is in progress. Consult dictated # [id number] Symptoms likely related to migraine. MRI shows [...] note is in progress. Consult dictated # [id number] Symptoms likely related to migraine. MRI shows no acute CVA. No significant vascular disease on MRA. CUS fromlast summer was (-). Would continue ASA, management of vascular risk factors. OK for dischargewhen otherwise medically stable. Thank you. POCT ACTIVATED CLOTTING TIME Routine 01/03/2013 9:47 AM EDT [employer] PROCEDURE LOG Routine 01/03/2013 9:22 AM EDT CARDIAC PROCEDURE-SALES EXECUTIVE INSURANCE ONLY 01/03/2013 8:53 AM EDT chest pain [...] note is in progress. [facility] Heart and Vascular [facility] Consultation ADMISSION: 01/02/2013 PATIENT: Angeles Pope [id number] PCP: No primary provider on file. I [...] 200 Syringe 11 Lancets (ONE TOUCH DELICA) [facility] Please dispense 1 box of lancets every30 [...] TUNNEL RELEASE performed by EDYTA CHUN at [facility] Allergy Allergies Allergen Reactions Tawnya Inhibitors [...] most recent cardiovascular imaging studies availabe in [employer] EMR werereviewed at time of consultation Assessment: [...] Routine 01/04/2012 11:29 AM EDT VITAMIN D, [id number] Routine 01/04/2012 11:29 AM EDT Diabetes mellitus [...] 12 LEAD STAT 11/09/2011 10:53 PM EST NON-DEPORTATION EXAMINER CYTOLOGY REPORT Routine 08/25/2011 2:39 PM EST [...] EDT Same as pre-op Special Needs ROSENDA CPT:62336 CYSTOSCOPY BLADDER /URETHRA BIOPSY 12/27/2010 2:16 PM EDT Same as pre-op Special Needs ROSENDA CPT:55322 US ABDOMEN LIMITED Routine 11/29/2010 10:26 AM [...] Comment:100-129 Blood VENOUS BLOOD / Unknown 05/06/2024 [facility] Provider CHEMISTRY ORDERABLES Final R esult Performing Organization Address [facility] de Phone Number SEP OFFICE * VITAMIN D 25 HYDROXY (05/06/2024) Only the most recent of35 resultswithin the time period is included. 25-HYDROXY, VITAMIN D - HISTORICAL 90.0 SEP OFFICE Comment:30-100 Blood VENOUS BLOOD / Unknown 05/06/2024 [facility] Provider CHEMISTRY ORDERABLES Final R esult Performing Organization Address [facility] Co de Phone Number SEP OFFICE * MICROALBUMIN/CREATININE RATIO URINE (05/06/2024) Only the most recent of10 resultswithin the time period is included. Micro[employer], Ur <6.000 <=31 MG/L SEP OFFICE Comment:0-16.7 Urine URINE SPECIMEN COLLECTION / Unknown 05/06/2024 Historical Provider URINE ORDERABLES Final Resul t Performing Organization Address [facility] de Phone Number SEP OFFICE * THYROGLOBULIN -REF LAB (05/06/2024) Only the most recent of3 resultswithin the time period is included. Thyroglobulin <0.1 NG/ML SEP OFFICE Comment:1.5-38.5 Blood VENOUS BLOOD / Unknown 05/06/2024 Historical Provider CHEMISTRY ORDERABLES Edited Result - Final Performing Organization Address [facility] de Phone Number SEP OFFICE * THYROGLOBULIN ANTIBODY -REF LAB (05/06/2024) Only the most recent of3 resultswithin the time period is included. Thyroglobulin <1.0 NG/ML SEP OFFICE Comment:0.0-0.90 Blood VENOUS BLOOD / Unknown 05/06/2024 [facility] Provider IMMUNOLOGY ORDERABLES Final Result Performing Organization Address [facility] Phone Number SEP OFFICE * C-REACTIVE PROTEIN (05/06/2024) Only the most recent of33 resultswithin the time period is included. CRP 10 MG/L SEP OFFICE Comment:0-4 Blood VENOUS BLOOD / Unknown 05/06/2024 Historical Provider CHEMISTRY ORDERABLES Final R esult Performing Organization Address [facility] de Phone Number SEP OFFICE * (ABNORMAL) THYROID STIMULATING HORMONE (05/06/2024) Only the most recent of39 resultswithin the time period is included. TSH 17.500(A) 0.400 - 4.500 MCIU/ML SEP OFFICE Comment:0.465-4.68 Blood VENOUS BLOOD / Unknown 05/06/2024 Historical Provider CHEMISTRY ORDERABLES Final R esult Performing Organization Address [facility] de Phone Number SEP OFFICE * HEMOGLOBIN A1C (05/06/2024) Only the most recent of41 resultswithin the time period is included. A1c 6.9 SEP OFFICE Comment:4.0-6.0 Blood VENOUS BLOOD / Unknown 05/06/2024 Historical Provider CHEMISTRY ORDERABLES Final R esult Performing Organization Address [facility] de Phone Number SEP OFFICE * VITAMIN B12 LEVEL (05/06/2024) Only the most recent of27 resultswithin the time period is included. Vitamin B12 500 PG/ML SEP OFFICE Comment:134-241 Blood VENOUS BLOOD / Unknown 05/06/2024 Historical Provider CHEMISTRY ORDERABLES Final R esult Performing Organization Address [facility] Phone Number SEP OFFICE * (ABNORMAL) COMPREHENSIVE [...] Edited Result - Final Performing Organization Address [facility]/ZIP Co de Phone Number SEP OFFICE * [...] ORDERABLES Final Resu lt Performing Organization Address [facility]/[place] de Phone Number SEP OFFICE * T3 FREE (09/18/2023) Only the most recent of7 resultswithin the time period is included. Free T4 1.05 NG/DL SEP OFFICE Comment:Reference Range: 0.7 8-2.19 ng/dL Blood VENOUS BLOOD / Unknown 09/18/2023 Rojas Cunningham MD CHEMISTRY ORDERABLES Final Resu lt Performing Organization Address [facility] de Phone Number SEP OFFICE * URIC ACID (03/20/2023 12:40 PM EDT) Only the most recent of3 resultswithin the time period is included. Uric Acid 5.0 2.4 - 5.7 mg/dL 03/20/2023 5:51 PM EDT [employer] Blood VENOUS BLOOD / Unknown Venipuncture / Unknown 03/20/2023 12:40 PM EDT 03/20/2023 12:40 PM EDT Rojas Cunningham MD CHEMISTRY ORDERABLES Final Resu lt Performing Organization Address [facility] Co de Phone Number [employer] [address] [place] [address] , [address] [place] [id number] * TRIIODOTHYRONINE (02/06/2023) Only the most recent of2 resultswithin the time period is included. T3 Free 3.1 PG/ML SEP OFFICE Comment:[facility] -2 .0-4.4 Blood VENOUS BLOOD / Unknown 02/06/2023 Historical Provider CHEMISTRY ORDERABLES Final R esult Performing Organization Address [facility] de Phone Number SEP OFFICE * FRUCTOSAMINE (08/07/2022) Only the most recent of10 resultswithin the time period is included. Fructosamine 273 MCMOL/L SEP OFFICE Comment:Reference Range: 0-2 85 umol/L Blood VENOUS BLOOD / Unknown 08/07/2022 Rojas Cunningham MD CHEMISTRY ORDERABLES Final Resu lt Performing Organization Address [facility] de Phone Number SEP OFFICE * VITAMIN C (ASCORBIC ACID) - REF LAB (05/04/2022) Vitamin C 0.1 SEP OFFICE Comment:Reference Range: 0.4 -2.0 mg/dL Blood VENOUS BLOOD / Unknown 05/04/2022 Yecenia Ruiz MD CHEMISTRY ORDERABLES Final Re sult Performing Organization Address [facility] de Phone Number SEP OFFICE * C-PEPTIDE (05/31/2021) Only the most recent of4 resultswithin the time period is included. C-Peptide 1.5 NG/ML SEP OFFICE Comment:1.1-4.4 [facility] Blood 05/31/2021 Rojas Cunningham MD CHEMISTRY ORDERABLES Edited Res ult - Final Performing Organization Address [facility] Co de Phone Number SEP OFFICE * THYROGLOBULIN AND TG AB REFLEX MONITOR-REF LAB (01/25/2021) Only the most recent of9 resultswithin the time period is included. Thyroglob Ab <1.0 IU/ML SEP OFFICE Comment:[place] 0.0-0.9 Blood 01/25/2021 Rojas Cunningham MD CHEMISTRY ORDERABLES Final Resu lt Performing Organization Address [facility] Co de Phone Number SEP OFFICE * APOLIPOPROTEIN B-REF LAB (07/06/2020) Only the most recent of6 resultswithin the time period is included. 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 No evidence for cervical radiculopathy Wiley Willard MD -Board Certified Physical Medicine and Rehabilitation Narrative [facility] - 04/12/2020 11:13 AM [...] ORDERABLES Final Res ult Performing Organization Address [facility] Co de Phone Number [facility] [address] [place] [address] * FRUCTOSAMINE -REF LAB (02/26/2019) Only the most recent of10 resultswithin the time period is included. Fructosamine 257 MCMOL/L SEP OFFICE Comment:Evita Crouch 0-285 Blood 02/26/2019 Rojas Cunningham MD CHEMISTRY ORDERABLES Final Resu lt Performing Organization Address [facility] Co de Phone Number SEP OFFICE * LIPOPROTEIN (A)-REF LAB (01/20/2019) Only the most recent of3 resultswithin the time period is included. Lipoprotein (A) 17 MG/DL SEP OFFICE Comment:<75 -[facility] Blood VENOUS BLOOD / Unknown 01/20/2019 Tiffany Mayen APRN CHEMISTRY ORDERABLES Fin al Result Performing Organization Address [facility] de Phone Number SEP OFFICE * FERRITIN (01/08/2019) Only the most recent of7 resultswithin the time period is included. Ferritin 45.1 9.0 - 150.0 NG/ML [facility] 1.1-264.0 Blood VENOUS BLOOD / Unknown 01/08/2019 Rojas Cunningham MD CHEMISTRY ORDERABLES Final Resu lt Performing Organization Address [facility] de Phone Number SEP OFFICE * VITAMIN E - REF LAB (07/05/2018 12:00 PM EDT) Alpha-Tocopherol (Vit E) mg/L 10.3 5.5 - 18.0 mg/L 07/09/2018 7:48 AM EDT [employer] Comment: Test developed and characteristics determined by [employer]. See Compliance Statement B: [email or web address] Gamma-Tocopherol (Vit E) mg/L 2.4 0.0 - 6.0 mg/L 07/09/2018 7:48 AM EDT [employer] Comment: Performed by [employer], [address] [place] [id number] [email or web address], Andrés Gramajo MD, Lab. Director Blood Venipuncture / Unknown 07/05/2018 12:00 PM EDT 07/05/2018 12:00 PM EDT us Lauren Fraser PACK PRESS OPERATOR CHEMISTRY ORDERABLES Final Result Performing Organization Address City/[facility]/ZIP Co de Phone Number [employer] [place] [address] [place] [address] * IRON/UIBC (07/05/2018 12:00 PM EDT) Only the most recent of4 resultswithin the time period is included. Iron 96 30 - 160 mcg/dL 07/05/2018 2:05 PM EDT PREFERRED LAB [facility] [employer] UIBC 185 112 - 347 mcg/dL 07/05/2018 2:05 PM EDT PREFERRED [employer], [employer] Transferrin Sat 34 20 - 50 % 8 2:05 PM EDT PREFERRED [facility] Blood Venipuncture / Unknown 07/05/2018 12:00 PM EDT 07/05/2018 12:00 PM EDT Lauren Fraser APRN CHEMISTRY ORDERABLES Final Result Performing Organization Address [facility] Co de Phone Number PREFERRED [facility] [address] [place] [address], [place] [address] * COPPER LEVEL -REF LAB (07/05/2018 12:00 PM EDT) Copper 116 80 - 155 ug/dL 07/09/2018 7:30 AM EDT [employer] Comment: INTERPRETIVE INFORMATION: Copper, Serum or Plasma [...] or malabsorption. See Compliance Statement B at [email or web address] Performed by [employer], [address] [place] [address] [email or web address], Andrés Gramajo MD, Lab. Director Blood Venipuncture / Unknown 07/05/2018 12:00 PM EDT 07/05/2018 12:00 PM EDT Lauren Fraser PACK PRESS OPERATOR CHEMISTRY ORDERABLES Final Result Performing Organization Address [facility] de Phone Number [facility] [address] [place] [address] * VITAMIN B1 (THIAMINE) WHOLE BLOOD -REF LAB (07/05/2018 12:00 PM EDT) Only the most recent of4 resultswithin the time period is included. Vit B1 WB 133 70 - 180 nmol/L 07/10/2018 9:00 AM EDT [employer] Comment: INTERPRETIVE INFORMATION: Vitamin B1, Whole Blood This assay measures the concentration of thiamine diphosphate (TDP), the primary active form of vitamin B1. Approximately 90 percent of vitamin B1 present in whole blood is TDP. Thiamine and thiamine monophosphate, which comprise the remaining 10 percent, are not measured. Test developed and characteristics determined by [employer]. See Compliance Statement B: [email or web address] Performed by [employer], [address] [place] [id number] [email or web address], Andrés Gramajo MD, Lab. Director Blood Venipuncture / Unknown 07/05/2018 12:00 PM EDT 07/05/2018 12:00 PM EDT Lauren Fraser APRN CHEMISTRY ORDERABLES Final Result Performing Organization Address [facility] Co de Phone Number [facility] [address] [place] [address] * ZINC LEVEL-REF LAB (07/05/2018 12:00 PM EDT) Only the most recent of4 resultswithin the time period is included. Zinc 68 60 - 120 ug/dL 07/09/2018 7:30 AM EDT [employer] Comment: INTERPRETIVE INFORMATION: Zinc, Serum or Plasma Circulating zinc concentrations are dependent on albumin status and are depressed with malnutrition. Zinc may also be lowered with infection, inflammation, stress, oral contraceptives, and . Zinc may be elevated with zinc supplementation or fasting. Elevated zinc concentrations may interfere with copper absorption. Test developed and characteristics determined by [employer]. See Compliance Statement B: [employer]/CS Performed by [employer], [address] [place] [address] [email or web address], Andrés Gramajo MD, Lab. Director Blood Venipuncture / Unknown 07/05/2018 12:00 PM EDT 07/05/2018 12:00 PM EDT us Lauren Fraser PACK PRESS OPERATOR CHEMISTRY ORDERABLES Final Result Performing Organization Address City/[facility]/ZIP Co de Phone Number [employer] [place] [address] [place] [address] * VITAMIN A (RETINOL) -REF LAB (07/05/2018 12:00 PM EDT) Only the most recent of3 resultswithin the time period is included. Vit A(Retinol) 0.37 0.30 - 1.20 mg/L 07/09/2018 7:48 AM EDT [employer] Retinyl Palm 0.02 0.00 - 0.10 mg/L 07/09/2018 7:48 AM EDT [employer] Vit A Intrp Normal 07/09/2018 7:48 AM EDT [employer] Comment: Test developed and characteristics determined by [employer]. See Compliance Statement B: [employer]/CS Performed by [employer], [address] [place] [address] [email or web address], Andrés Gramajo MD, Lab. Director Blood Venipuncture / Unknown 07/05/2018 12:00 PM EDT 07/05/2018 12:00 PM EDT us Lauren Fraser PACK PRESS OPERATOR CHEMISTRY ORDERABLES Final Result Performing Organization Address [facility]/ZIP Co de Phone Number [employer] [place] [address] [place] [address] * (ABNORMAL) FOLATE LEVEL (07/05/2018 12:00 PM EDT) Only the most recent of3 resultswithin the time period is included. Folate >16.00(H) 4.50 - 16.00 ng/mL 07/05/2018 2:20 PM EDT [employer] Blood Venipuncture / Unknown 07/05/2018 12:00 PM EDT 07/05/2018 12:00 PM EDT Narrative PREFERRED [facility] - 07/05/2018 2:20 PM EDT Ingestion of abdirashid doses of biotin (>5 mg/day) taken within 8 hours of drawing blood sample can interfere with this immunoassay test. Lauren Fraser APRN CHEMISTRY ORDERABLES Final Result Performing Organization Address [facility]/ZIP Co de Phone Number [facility] [address] [place] [address] , [place] [address] * MISCELLANEOUS LAB (06/12/2018) Only the most [...] client) 40.5 % 01/03/2018 11:26 PM EDT [employer] Folate RBC 587 >=366 ng/mL 01/03/2018 11:26 PM EDT [employer] Comment: Performed by [employer], [address] [place] [id number] [email or web address], Andrés Gramajo MD, Lab. Director Blood Venipuncture / Unknown 01/02/2018 8:52 AM EDT 01/02/2018 8:52 AM EDT Gila Winter APRN CHEMISTRY ORDERABLES Final Res ult Performing Organization Address [facility]/[place] de Phone Number [employer] [address] [place] [address] * IONIZED CALCIUM - INPATIENT (10/24/2017 11:44 AM EST) Only the most recent of6 resultswithin the time period is included. Calcium Ionized 1.17 1.12 - 1.32 mmol/L 10/24/2017 12:10 PM EST [facility] Blood Venipuncture / Unknown 10/24/2017 11:44 AM EST 10/24/2017 11:44 AM EST Rojas Cunningham MD CHEMISTRY ORDERABLES Final Resu lt Performing Organization Address [facility] de Phone Number [facility] [address] [place] [address] * BILL TG CL (10/24/2017 11:44 AM EST) [id number] P Billed 10/26/2017 2:22 AM EST [employer] Comment: Performed by [employer], [address] [place] [id number] [email or web address], Andrés Gramajo MD, Lab. Director Blood Venipuncture / Unknown 10/24/2017 11:44 AM EST 10/24/2017 11:44 AM EST Rojas Cunningham MD IMMUNOLOGY ORDERABLES Final Res ult Performing Organization Address [facility] de Phone Number [employer] [address] [place] [address] * PARATHYROID HORMONE INTACT (10/24/2017 11:44 AM EST) Only the most recent of8 resultswithin the time period is included. PTH Intact 32.09 15.00 - 65.00 pg/mL 10/24/2017 3:58 PM EST [facility] Blood Venipuncture / Unknown 10/24/2017 11:44 AM EST 10/24/2017 11:44 AM EST Narrative [facility] - 10/24/2017 3:58 PM EST Intact [...] ORDERABLES Final Resu lt Performing Organization Address [facility]/ZIP Co de Phone Number [facility] [address] [place] [address] * APOLIPOPROTEIN, A-1-REF LAB (09/04/2017) Pathologist [facility] Apolipoprotein A-1 138 SEP OFFICE Comment:116-209 Apolipoprotein B 94 SEP OFFICE Comment:54-133 Apolipo. B/A-1 Ratio 0.7 SEP OFFICE Comment:0.0-0.6 Blood VENOUS BLOOD / Unknown 09/04/2017 Rojas Cunningham MD CHEMISTRY ORDERABLES Final Resu lt Performing Organization Address [facility]/ZIP Co de Phone Number SEP OFFICE * CALCIUM, IONIZED, SERUM-REF LAB (09/04/2017) Calcium Ionized 5.0 MMOL/L SEP OFFICE Comment:4.5-5.6 [place] Blood VENOUS BLOOD / Unknown 09/04/2017 Rojas [...] ORDERABLES Final Resu lt Performing Organization Address [facility] de Phone Number SEP OFFICE * (ABNORMAL) VITAMIN B12/ FOLIC ACID (06/14/2017 1:45 PM EDT) Vitamin B12 994(H) 211 - 946 pg/mL [facility] Folic Acid Lvl 12.57 4.50 - 37.30 ng/mL [facility] Blood specimen (specimen) UPPER LIMB STRUCTURE / Unknown 06/14/2017 1:45 PM EDT 06/14/2017 6:33 PM EDT Lauren Fraser PACK PRESS OPERATOR CHEMISTRY ORDERABLES Edite d Result - Final Performing Organization Address [facility] [address] * MAGNESIUM LEVEL (06/14/2017 1:45 PM EDT) Only the most recent of3 resultswithin the time period is included. Pathologist [facility] Magnesium 2.1 1.6 - 2.4 mg/dL [facility] Blood specimen (specimen) UPPER LIMB STRUCTURE / Unknown 06/14/2017 1:45 PM EDT 06/14/2017 10:15 PM EDT Lauren Fraser PACK PRESS OPERATOR CHEMISTRY ORDERABLES Final Result Performing Organization Address [facility] [address] * (ABNORMAL) CBC (06/06/2017 2:04 PM EDT) Only the most recent of4 resultswithin the time period is included. WBC 9.0 4.0 - 11.0 x10(3)/mcL [facility] RBC 4.79 3.80 - 5.10 x10(6)/mcL [facility] Hgb 12.5 12.0 - 15.6 gm/dL [facility] Hct 38.6 35.7 - 45.9 % [facility] MCV 80.6(L) 82.5 - 99.8 fL [facility] MCH 26.1(L) 27.0 - 34.3 pg [facility] MCHC 32.4 32.1 - 35.3 gm/dL [facility] RDW 14.8 11.5 - 15.0 % [facility] Platelet 210 144 - 423 x10(3)/mcL [facility] MPV 9.3 6.8 - 10.8 fL [facility] Blood specimen (specimen) 06/06/2017 2:04 PM EDT 06/06/2017 2:04 PM EDT us Gila Winter PACK PRESS OPERATOR HEMATOLOGY ORDERABLES Final Re sult [facility] [address] [place] [address] * SCANNED RHYTHM STRIPS (06/02/2017 8:20 AM EDT) Only the most recent of14 resultswithin the time period is included. Anatomical Region Laterality Modality Other 06/02/2017 8:20 AM EDT us Unknown Unknown IMG ECG ORDERABLES Final Result * (ABNORMAL) GLUCOSE METER POC (05/31/2017 12:51 PM EDT) Only the most recent of6 resultswithin the time period is included. [facility] Glucose Meter POC 205(H) 70 - 100 mg/dL [facility] Sample Type Capillary [facility] Patient Status Non-Critical Patient [facility] Blood specimen (specimen) 05/31/2017 12:51 PM EDT 05/31/2017 12:51 PM EDT Duncan Choi MD POINT OF CARE TEST ORDERABLE S Final Result Performing Organization Address [facility] Co de Phone Number [facility] [address] [facility] [place] [address] * DIFFERENTIAL (05/31/2017 5:44 AM EDT) Only the most recent of10 resultswithin the time period is included. Neut Percent 73.6 % [facility] Lymph Percent 18.3 % [facility] [place] Percent 7.0 % [facility] Eos Percent 0.5 % [facility] Baso Percent 0.6 % [facility] Neut# 6.9 1.8 - 7.7 x10(3)/mcL [facility] Lymph# 1.7 0.6 - 4.8 x10(3)/mcL [facility] [place]# 0.7 0.0 - 1.3 x10(3)/mcL [facility] Eos# 0.0 0.0 - 0.5 x10(3)/mcL [facility] Baso# 0.1 0.0 - 0.2 x10(3)/mcL [facility] Blood specimen (specimen) 05/31/2017 5:44 AM EDT 05/31/2017 6:02 AM EDT us Duncan Choi MD HEMATOLOGY ORDERABLES Final Result Performing Organization Address [facility] Co de Phone Number [facility] [address] [place] [address] * (ABNORMAL) CBC WITH AUTO DIFF (05/31/2017 5:44 AM EDT) Only the most recent of10 resultswithin the time period is included. WBC 9.4 4.0 - 11.0 x10(3)/mcL [facility] RBC 4.64 3.80 - 5.10 x10(6)/mcL [facility] Hgb 12.3 12.0 - 15.6 gm/dL [facility] Hct 37.0 35.7 - 45.9 % [facility] MCV 79.8(L) 82.5 - 99.8 fL [facility] MCH 26.4(L) 27.0 - 34.3 pg [facility] MCHC 33.1 32.1 - 35.3 gm/dL [facility] RDW 15.0 11.5 - 15.0 % [facility] Platelet 179 144 - 423 x10(3)/mcL [facility] MPV 8.9 6.8 - 10.8 fL [facility] Blood specimen (specimen) 05/31/2017 5:44 AM EDT 05/31/2017 6:02 AM EDT Duncan Choi MD HEMATOLOGY ORDERABLES Final Result Performing Organization Address [facility]/[place] de Phone Number [facility] [address] [place] [address] * PARTIAL THROMBOPLASTIN TIME (05/30/2017 7:38 PM EDT) Only the most recent of2 resultswithin the time period is included. PTT 30.9 26.0 - 36.4 second(s) [facility] Comment: Therapeutic range for unfractionated heparin: [...] 7:38 PM EDT 05/30/2017 7:43 PM EDT Duncan Choi MD HEMATOLOGY ORDERABLES Final Result Performing Organization Address [facility] de Phone Number [facility] [address] [place] [address] * PT / INR (05/30/2017 7:38 PM EDT) Only the most recent of3 resultswithin the time period is included. PT 12.7 10.1 - 12.9 second(s) [facility] INR 1.09 0.88 - 1.12 [facility] Comment: Level of Therapy Indications Target INR Range Standard Dose Treatment and prophylaxis of venous 2.0 - 3.0 thrombosis, pulmonary embolism High Dose High risk patients with mechanical 2.5 - 3.5 heart valves Blood specimen (specimen) UPPER LIMB STRUCTURE / Unknown 05/30/2017 7:38 PM EDT 05/30/2017 7:43 PM EDT us Duncan Choi MD HEMATOLOGY ORDERABLES Final Result [facility] [address] [place] [address] * PATHOLOGY TISSUE REPORT (05/30/2017 10:23 AM EDT) Only the most recent of2 resultswithin the time period is included. Surgical Pathology Report PATIENT NAME:ANGELES KIMBROUGH Surgical Pathology Report Accession Number Collected Date/Time Received Date/Time [id number] 05/30/17 10:23 EDT 05/30/17 20:33 EDT Diagnosis Greater curvature of stomach, partial resection: - Fundic mucosa, submucosa and muscularis propria showing no evidence of malignancy. - Mild associated chronic inflammation. Mariela Chew (Electronically signed by) Verified: 06/01/2017 [facility] Laboratory Clinical Information Morbid obesity [...] masses, or areas of ulceration grossly identified. [employer] Worker sections are submitted in one cassette. / TE JUAN/LATOYA Microscopic Description Microscopic examination is performed and the findings corroborate the diagnosis. [facility] 05/30/2017 10:2 3 AM EDT us Duncan Choi MD PATHOLOGY ORDERABLES Final R esult Performing Organization Address [facility] Co de Phone Number [facility] [address] [place] [address] * INTRAOP AIRWAY PLACEMENT (05/30/2017 10:11 AM EDT) Narrative [facility] - 05/30/2017 10:11 AM [...] Atraumatic and Unchanged Insertion attempts: 1 Title: AIR EXPORT LOGISTICS MANAGER Procedure Note José Meyer CRNA - 05/30/2017 [...] Atraumatic and Unchanged Insertion attempts: 1 Title: AIR EXPORT LOGISTICS MANAGER us Roxie Massey MD [place] ANESTHESIA Final Result Performing Organization Address [facility] [facility]ZIP Co de Phone Number [facility] [address] [place] [address] * CROSSMATCH SUMMARY (05/30/2017 8:48 AM EDT) Blood specimen (specimen) 05/30/2017 8:48 AM EDT 05/30/2017 8:48 AM EDT Duncan Choi MD BLOOD BANK ORDERABLES Final Result Performing Organization Address City/[facility] Co de Phone Number [facility] [address] [place] [address] * ABORH (05/23/2017 12:15 PM EDT) ABORh Int O POS [facility] Blood specimen (specimen) 05/23/2017 12:15 PM EDT 05/23/2017 12:21 PM EDT Karin Ashley APRN BLOOD BANK ORDERABLES Final R esult Performing Organization Address [facility] Co de Phone Number [facility] [address] [place] [address] * ANTIBODY SCREEN IGG (05/23/2017 12:15 PM EDT) ABSC IgG Int Negative [facility] Blood specimen (specimen) 05/23/2017 12:15 PM EDT 05/23/2017 12:21 PM EDT Karin Ashley PACK PRESS OPERATOR BLOOD BANK ORDERABLES Final R esult Performing Organization Address [facility] de Phone Number [facility] [address] [place] [address] * CORTISOL SALIVA-REF LAB (03/29/2017 12:59 AM EDT) Cortisol Saliva-ARUP 0.029 mcg/dL [facility] Comment: INTERPRETIVE INFORMATION: Cortisol, Saliva Effective 10/30/2005 For collection at 2300 hr. the normal cortisol concentration is less than 0.112 ug/dL. Patients with Cushings Syndrome have concentrations of 0.112 ug/dL or greater. a.m. ([id number]) p.m. (noon-1800) Males 2.5-7 years 0.034-0.645 ug/dL [...] older 0.149-0.739 ug/dL 0.022-0.254 ug/dL Performed by [employer], [address] [place] [id number] [email or web address], Andrés Gramajo MD - Lab. Director Saliva specimen (specimen) 03/29/2017 12:59 AM EDT 03/30/2017 4:10 PM EDT us Gila Winter APRN CHEMISTRY ORDERABLES Final Res ult [facility] [address] [place], [place] [id number] * HEPATIC FUNCTION PANEL (11/07/2016) Only the [...] the right groin. Tanvi Ornelas MD. [address] [place], [place], [facility] Narrative 10/30/2016 1:17 PM EST EXAMINATION: Arterial [...] of the visualized vessels. Eric Be MD [facility] US ORDERABLES Final Result * (ABNORMAL) LIPOPROFILE NMR, PARTICLE ANALYSIS ONLY-REF LAB (08/22/2016 1:21 PM EST) LDL Particle Number by NMR 1523(H) <1000 nmol/L [facility] Comment: Low < 1000 Moderate 1000 - 1299 Borderline-High 1300 - 1599 High 1600 - 2000 Very High > 2000 Performed at: [place] [address] LDL Particle Size 20.0 >20.5 [facility] Comment: INTERPRETATIVE INFORMATION PARTICLE CONCENTRATION AND [...] have not been fully established. Performed at: [place] [address] LDL Size 20.0 >=20.8 nm [facility] Comment: Performed at: [place] [address] HDL Particle Number 30.4(L) >=30.5 mcmol/L [facility] Comment: Performed at: [place] [address] HDL Size 8.8(L) >=9.2 nm [facility] Comment: Performed at: [place] [address] Large HDL Particle Number 2.6(L) >=4.8 mcmol/L [facility] Comment: Performed at: [place] [address] Small LDL Particle Number 1027(H) <=527 nmol/L [facility] Comment: Performed at: [place] [address] Small LDL-P 1027(H) <=527 nmol/L [facility] Comment: Performed at: [place] [address] VLDL Size 60.2(H) <=46.6 nm [facility] Comment: Performed at: [place] [address] Large VLDL Particle Number 10.0(H) <=2.7 nmol/L [facility] Comment: Performed at: [place] [address] LP Insulin Resistance Score 83(H) <=45 [facility] [...] [place] Food and Drug Administration. Performed at: [address] [address] Blood specimen (specimen) 08/22/2016 1:21 PM EST 08/22/2016 6:27 PM EST Rojas Cunningham MD CHEMISTRY ORDERABLES Final Resu lt Performing Organization Address [facility] Co de Phone Number [employer] [address] [place] [address] * IGF-1 (INSULIN-LIKE GROWTH FACTOR 1) -REF LAB (08/22/2016 1:21 PM EST) Only the most recent of2 resultswithin the time period is included. IGF-1 103 53 - 287 ng/mL [facility] Comment: REFERENCE INTERVAL: IGF-1 (Insulin-Like Growth I) IGF-1 values well above the age and gender matched reference interval indicate a possible pituitary tumor secreting growth hormone. IGF-1 values below the reference interval indicate a possible GH deficiency. Access complete set of age- and/or gender-specific reference intervals for this test in the [facility] ([employer]). Performed by [employer], [address] [place] [address] [email or web address], Lion Mooney MD - Lab. Director Blood specimen (specimen) 08/22/2016 1:21 PM EST 08/22/2016 11:16 PM EST Rojas Cunningham MD CHEMISTRY ORDERABLES Final Resu lt Performing Organization Address [facility]/ZIP Co de Phone Number [employer] [address] [place] [address] * PHOSPHORUS LEVEL (08/22/2016 1:21 PM EST) Only the most recent of2 resultswithin the time period is included. Phosphorus 4.0 2.5 - 4.5 mg/dL [facility] Blood specimen (specimen) UPPER LIMB STRUCTURE / Unknown 08/22/2016 1:21 PM EST 08/22/2016 5:53 PM EST Rojas Cunningham MD CHEMISTRY ORDERABLES Final Resu lt Performing Organization Address [facility] Co de Phone Number [facility] [address] [place] [address] * (ABNORMAL) NMR LIPOPROFILE-REF LAB (06/17/2015) Only the most recent of4 resultswithin the time period is included. LDL Particle Number by NMR 1,225 SE[facility]ICE Comment:<1000, fax from [facility] HDL Particle Number 25.3 SEP OFFICE [...] Res ult - Final Performing Organization Address City/[facility] Co de Phone Number SEP OFF[facility] * C-REACTIVE PROTEIN HIGH SENSITIVITY (06/17/2015) Only the most recent of2 resultswithin the time period is included. CRP 20.2 [facility] OFFICE Comment:0.0-9.0, fax from [facility] Blood specimen (specimen) UPPER LIMB STRUCTURE / Unknown 06/17/2015 Rojas Cunningham MD CHEMISTRY ORDERABLES Final Resu lt SE[facility] * C-PEPTIDE -REF LAB (02/02/2015) Only the most recent of7 resultswithin the time period is included. C-Peptide 1.3 SEP OFFICE Comment:1.1-4.4, FAX FROM [facility] Blood specimen (specimen) UPPER LIMB STRUCTURE / Unknown 02/02/2015 Rojas Cunningham MD CHEMISTRY ORDERABLES Final Resu lt Performing Organization Address [facility] de Phone Number SE[facility] OFF[facility] * (ABNORMAL) NMR LIPOPROFILE 8008 (10/13/2014 10:53 AM EST) Only the most recent of3 resultswithin the time period is included. LDL Particle Number by NMR 2,015 [facility] Comment:<1000, [facility] HDL Particle Number 30.4 [facility] Comment:>30.5 [...] Blood specimen (specimen) 10/13/2014 10:53 AM EST Rojas Cunningham MD CHEMISTRY ORDERABLES Edited Res ult - Final Performing Organization Address City/[facility]/ZIP Co de Phone Number SEP OFFICE * [...] ORDERABLES F inal Result Performing Organization Address City/[facility]/ZIP Co de Phone Number SEP OFFICE * LACTIC ACID (01/30/2014 4:11 PM EDT) Lactic Acid 2.0 0.5 - 2.2 mmol/L [facility] Blood specimen (specimen) UPPER LIMB STRUCTURE / Unknown 01/30/2014 4:11 PM EDT 01/30/2014 4:20 PM EDT Rojas Cunningham MD CHEMISTRY ORDERABLES Final Resu lt Performing Organization Address [facility] Co de Phone Number [facility] [address] [place] [address] * SCANNED RADIOLOGY REPORT (06/25/2013 11:22 AM [...] no significant reversible defects. Jovany Rosario MD [facility] NM CARDIAC ORDERABLES Final Result * ST STRESS TEST LEXISCAN (06/25/2013 9:28 AM EDT) Only the most recent of2 resultswithin the time period is included. Anatomical Region Laterality Modality Cardiac Stress T esting 06/25/2013 9:17 AM EDT Jovany Rosario MD [facility] STRESS ORDERABLES Catrachita l Result * LDL, CALCULATED (06/25/2013 4:57 AM EDT) Only the most recent of5 resultswithin the time period is included. LDL Calculated 85 <=100 mg/dL [facility] Comment: < 100 Optimal 100 - 129 Near or above optimal 130 - 159 Borderline High 160 - 189 High >= 190 Very High Blood specimen (specimen) 06/25/2013 4:57 AM EDT 06/25/2013 6:16 AM EDT Armando Martin MD CHEMISTRY ORDERABLES Final Re sult [facility] [address] [place] [address] * MRI BRAIN WO CONTRAST (06/24/2013 3:25 [...] IMG ECHO ORDERABLES Final Resu lt * [facility] CAROTID DUPLEX BILATERAL (06/24/2013 8:13 AM EDT) [...] * TSH REFLEX (06/24/2013 5:11 AM EDT) Pathologist [facility] TSH Reflex 1.650 0.300 - 5.000 mcIU/mL [facility] Blood specimen (specimen) UPPER LIMB STRUCTURE / Unknown 06/24/2013 5:11 AM EDT 06/24/2013 1:51 PM EDT Jovany Rosario MD CHEMISTRY ORDERABLES Final Result [facility] [address] [place] [address] * TROPONIN-I (06/24/2013 1:16 AM EDT) Only the most recent of9 resultswithin the time period is included. Pathologist [facility] Troponin-I <0.01 <=0.06 ng/mL [facility] Blood specimen (specimen) UPPER LIMB STRUCTURE / Unknown 06/24/2013 1:16 AM EDT 06/24/2013 1:21 AM EDT us Boris Rodriguez MD CHEMISTRY ORDERABLES Final Resul t [facility] [address] [place] [address] * CT HEAD WO CONTRAST (06/23/2013 6:18 [...] and mastoid sinuses are clear. Procedure Note Wlila Wei MD - 06/23/[address] without [...] chronic left eckert radiata cystic ischemic change. us Boris Rodriguez MD [facility] CT ORDERABLES Final Result * XR CHEST [...] No acute disease identified. Boris Rodriguez MD [facility] DIAGNOSTIC IMAGING ORDERABLE S Final Result * ED TROPONIN (06/23/2013 1:26 PM EDT) Only the most recent of2 resultswithin the time period is included. [facility] ED TNI 0.00 <=0.06 ng/mL [facility] Blood specimen (specimen) UPPER LIMB STRUCTURE / Unknown 06/23/2013 1:26 PM EDT 06/23/2013 1:27 PM EDT Boris Rodriguez MD CHEMISTRY ORDERABLES Final Resul t [facility] [address] [place] [address] * POCT RAPID STREP A (02/06/2013 9:21 AM EDT) [facility] Strep A Ag None Detected None Detected Pos/Neg [facility] Comment:negative Lot Number SEP OFFICE Expiration Date SEP OFFICE SeriAl # SEP OFFICE Control Line Yes/No [facility]P OFFICE Specimen from throat (specimen) 02/06/2013 9:21 AM EDT Boris Sarmiento MD POINT OF CARE TEST ORDERABLE S Final Result Performing Organization Address [facility] Phone Number SEP OFFICE * POCT EKG (01/22/2013 1:37 PM EDT) 01/22/2013 1:37 PM EDT Chris Serra MD POINT OF CARE CARDIOLOGY Final Result Performing Organization Address [facility] de Phone Number [facility] * POCT MICROALBUMIN (01/10/2013 11:26 AM EDT) Microalb, Ur neg <=20 mg/L [facility] Lot Number SEP OFFICE Expiration Date SEP OFFICE SeriAl # SEP OFFICE Urine specimen (specimen) 01/10/2013 11:26 AM EDT Boris Sarmiento MD POINT OF CARE TEST ORDERABLE S Final Result Performing Organization Address [facility] Phone Number SEP OFFICE * (ABNORMAL) POCT URINALYSIS DIPSTICK (01/10/2013 11:26 AM EDT) Only the most recent of3 resultswithin the time period is included. 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 They [...] recent coronaryangiogram appear TECHNICAL FACTORS: 3-D noncontrast pydb-he-[id number] MIP reconstructed imagesobtained without contrast. They were [...] recent coronary angiogram. TECHNICAL FACTORS: 2-D noncontrast [id number] MIP reconstructed images from axial acquired source [...] after recent coronaryangiogram. TECHNICAL FACTORS: 2-D noncontrast [id number]-rd-[id number] MIP reconstructed imagesfrom axial acquired source images. [...] ACTIVATED CLOTTING TIME (01/03/2013 9:47 AM EDT) [facility] ACT 239 sec [facility] Lot Number [id number] [facility] Expiration Date [facility] SeriAl # [id number] [facility] Meter 2 [facility] Blood specimen (specimen) 01/03/2013 9:47 AM EDT Chris Serra MD POINT OF CARE TEST ORDERABLES F inal Result Performing Organization Address City/[facility]/ZIP Co de Phone Number [facility] [address] [place] [address] * SALES EXECUTIVE INSURANCE PROCEDURE LOG (01/03/2013 9:22 AM EDT) 01/03/2013 9:22 AM EDT Soo Storey APRN [facility] CARDIAC CATH ORDERABLE S Final Result Performing Organization Address City/[facility]/ZIP Co de Phone Number [facility] * EC ECHOCARDIOGRAM COMPLETE W DOPPLER AND COLOR FLOW MAPPING (01/02/2013 4:11 PM EDT) [facility] Ejection Fraction 55 % PYRAMIS [...] Normalexam of the appendix. Billie Bueno MD [facility] CT ORDERABLES Final Res ult * FL [...] Fluoroscopy time 2.09 minutes. Tristan Ron MD [facility] FLUOROSCOPY ORDERABLES Final Result * US THYROID [...] appearance of the thyroid Tristan Ron MD [facility] US ORDERABLES Final Result * THYROID PEROXIDASE (TPO) ANTIBODY-ARUP (04/03/2012 10:39 AM EDT) TPO Ab <0.3 0.0 - 9.0 IU/mL [facility] Blood specimen (specimen) UPPER LIMB STRUCTURE / Unknown 04/03/2012 10:39 AM EDT 04/03/2012 2:23 PM EDT Rojas Cunningham MD IMMUNOLOGY ORDERABLES Final Res ult Performing Organization Address [facility] de Phone Number [facility] [address] [place] [address] * GLUTAMIC ACID DECARBOXYLASE AB-ARUP (04/03/2012 10:39 AM EDT) STEPHEN Ab <5.0 0.0 - 5.0 IU/mL [facility] Comment: INTERPRETIVE INFORMATION: Glutamic Acid Decarboxylase Antibody A value greater than 5.0 IU/mL is considered positive for Glutamic Acid Decarboxylase Antibody. Blood specimen (specimen) UPPER LIMB STRUCTURE / Unknown 04/03/2012 10:39 AM EDT 04/03/2012 4:39 PM EDT us Rojas Cunningham MD CHEMISTRY ORDERABLES Final Resu lt Performing Organization Address [facility] de Phone Number [facility] [address] [place] [address] * MICROALBUMIN, URINE-ARUP (04/02/2012 11:05 AM EDT) Pathologist [facility] Total Volume Random mL [facility] Hrs Jessica Random hr [facility] U Creatinine 96 mg/dL [facility] U24 Creat Not Applicable 700 - 1600 mg/day SE LAB Microalbumin mg/dL-ARUP 0.3 mg/dL [facility] Microalbumin/Cre atinine Ratio-ARUP 3 0 - 30 mg/gm [facility] Microalbumin ug/minute-ARUP Not Applicable 0 - 20 mcg/min SE LAB Microalbumin mg/day-ARUP Not Applicable 2 - 30 mg/day [facility] Urine specimen (specimen) 04/02/2012 11:05 AM EDT 04/02/2012 2:48 PM EDT us Ara Howell APRN URINE ORDERABLES Final R esult Performing Organization Address [facility] Co de Phone Number [facility] [address] [place] [address] * CT ABDOMEN PELVIS WO ORAL OR [...] tyric Acid 0.31(H) 0.00 - 0.30 mmol/L [facility] Blood specimen (specimen) 02/19/2012 4:05 PM EDT 02/19/2012 4:10 PM EDT Kyle Cortez MD CHEMISTRY ORDERABLES Catrachita l Result Performing Organization Address [facility] de Phone Number [facility] [address] [place] [address] * LIPASE LEVEL (02/19/2012 4:05 PM EDT) Only the most recent of5 resultswithin the time period is included. Lipase Lvl 49 36 - 250 IU/L [facility] Blood specimen (specimen) UPPER LIMB STRUCTURE / Unknown 02/19/2012 4:05 PM EDT 02/19/2012 4:10 PM EDT Kyle Cortez MD CHEMISTRY ORDERABLES Catrachita l Result Performing Organization Address [facility] Co de Phone Number [facility] [address] [place] [address] * (ABNORMAL) AMYLASE LEVEL (02/19/2012 4:05 PM EDT) Only the most recent of3 resultswithin the time period is included. Amylase Lvl <30(L) 30 - 97 IU/L [facility] Blood specimen (specimen) UPPER LIMB STRUCTURE / Unknown 02/19/2012 4:05 PM EDT 02/19/2012 4:10 PM EDT Kyle Cortez MD CHEMISTRY ORDERABLES Catrachita l Result Performing Organization Address [facility] Co de Phone Number [facility] [address] [place] [address] * (ABNORMAL) URINALYSIS (02/19/2012 4:03 PM EDT) Only the most recent of2 resultswithin the time period is included. Pathologist [facility] UA Color Yellow [facility] UA Appear Clear [facility] UA Glucose 150 mg%(A) Negative [facility] UA Bili Negative Negative [facility] UA Ketones Negative Negative mg/dL [facility] UA Blood Negative Negative [facility] UA pH 7.5 4.8 - 8.0 [facility] UA Protein Trace(A) Negative [facility] UA Urobilinogen Normal [facility] UA Nitrite Negative Negative [facility] UA Leuk Est Negative Negative [facility] UA Spec Grav 1.018 1.001 - 1.035 [facility] UA WBC 2 0 - 4 /HPF [facility] UA RBC 1 0 - 3 /HPF [facility] UA Squam Epi 1+ [facility] UA Mucus Trace [facility] Urine specimen (specimen) STRUCTURE OF URINARY TRACT PROPER / Unknown 02/19/2012 4:03 PM EDT 02/19/2012 4:03 PM EDT us Kyle Cortez MD URINE ORDERABLES Edited Performing Organization Address [facility] Co de Phone Number [facility] [address] [place] [address] * URINE CULTURE (02/19/2012 4:03 PM EDT) [facility] Final Three or more bacterial species isolated from urine indicating superficial or fecal contamination Recollect if clinically indicated [facility] Urine specimen obtained by clean catch procedure (specimen) STRUCTURE OF URINARY TRACT PROPER / Unknown 02/19/2012 4:03 PM EDT 02/19/2012 4:16 PM EDT us Kyle Cortez MD MICROBIOLOGY - GENERAL OR DERABLES Final Result Performing Organization Address [facility] Co de Phone Number [facility] [address] [place] [address] * XR CHEST PA AND LATERAL (02/01/2012 1:25 PM EDT) Only the most recent of2 resultswithin the time period is included. Anatomical Region Laterality Modality Chest Radiographic Mecca ging 02/01/2012 Impressions 02/01/2012 1:57 PM EDT Impression: Normal chest. Narrative 02/01/2012 1:57 PM EDT PA and Lateral Chest: Feb 01, 2012 01:25:23 PM History: [id number] Findings: The heart and lungs are within normal limits. Procedure Note Esme Baron - 02/01/2012 PA and Lateral Chest: Feb 01, 2012 01:25:23 PM History: [id number] Findings: The heart and lungs are within normal limits. Impression: Normal chest. us Arely Karimi MD IMG DIAGNOSTIC IMAGING ORDERA BLES Final Result * (ABNORMAL) VITAMIN D, [id number] (01/04/2012 11:29 AM EDT) Vit D 25 OH 19(L) 30 - 80 ng/mL [facility] Comment: INTERPRETIVE INFORMATION: Vitamin [...] Mcgrath MD CHEMISTRY ORDERABLES Fin al Result [facility] [address] [place] [address] * ST STRESS TEST EXERCISE (11/22/2011 11:32 AM EST) Anatomical Region Laterality Modality Cardiac Stress T esting 11/22/2011 11:1 1 AM EST Georgette Isbell [facility] STRESS ORDERABLES Final R esult * CT [...] the colon No lymphadenopathy or bowel obstruction Wywu-gs-xgofpzoe clonic diverticulosis. No evidence of diverticulitis. Procedure [...] the colon No lymphadenopathy or bowel obstruction Upmi-am-saodymlw clonic diverticulosis. No evidence of diverticulitis. IMPRESSION: No acute findings. Normal appendix. Nonobstructing bilateralsmall renal stones. Cal Pate MD IMG CT ORDERABLES Final Result * NON-DEPORTATION EXAMINER CYTOLOGY REPORT (08/25/2011 2:39 PM EST) Non-Scraper Tender Cytology Report PATIENT NAME:ANGELES POPE Non-Scraper Tender Cytology Report Accession Number Collected Date/Time Received Date/Time [id number] 08/25/11 14:39 EST 08/25/11 14:40 EST Specimen Source Fine Needle Aspiration - Right Thyroid Diagnosis Other Diagnostic Category, see comment section. Comment Specimen Adequacy: Satisfactory Cellular specimen composed of uniform, cytologically bland-appearing follicular epithelial cells with a predominantly macrofollicular arrangement. Colloid is present. COMMENT: The cytologic findings are consistent with a benign thyroid nodule. Clinical and radiographic correlation is recommended. Calenderer: MR YUNG 08/28/2011 Completed by: BRENT OROZCO MD (Electronically signed by) 08/28/2011 [facility] Laboratory Gross Description 4 direct smears made. Evaluation Episode #1: Adequate Evaluation Episode #2: Adequate Immediate Assessment for Adequacy: Adequate for cytologic diagnosis./ QL [facility] 08/25/2011 2:39 PM EST us Jeremy aRvi MD CYTOLOGY ORDERABLES Final Result Performing Organization Address City/State/[facility] Co de Phone Number [facility] [address] [place] [address] * US GUIDED THYROID BIOPSY (08/25/2011 2:03 [...] (06/14/2011 11:12 AM EDT) FSH 33.9 mIU/mL [facility] Comment: Suggested Reference Range (mIU/mL) Postmenopausal Female 22 - 130 Follicular Phase Female 2 - 12 Luteal Phase Female 1 - 10 Blood specimen (specimen) UPPER LIMB STRUCTURE / Unknown 06/14/2011 11:12 AM EDT 06/14/2011 12:40 PM EDT us Harper Mcgrath MD CHEMISTRY ORDERABLES Fin al Result [facility] [address] [place] [address] * XR ABDOMEN AP (05/11/2011 2:21 PM [...] November 11, 2010. Procedure Note Boris Mims - 05/11/2011 XR ABDOMEN AP May 11, [...] of liver.Otherwise normal examination, S/P cholecystectomy. us MendelBone DO IMG US ORDERABLES Final R esult [...] IMPRESSION: 1. Normal CT of the chest. Mahesh Page MD IMG CT ORDERABLES Final Resul t * D-DIMER (07/18/2010 3:00 PM EDT) D-Dimer <0.22 <=0.45 mcg/ml FEU [facility] Comment: The D-dimer test [...] 3:00 PM EDT 07/18/2010 4:17 PM EDT Mahesh Page MD HEMATOLOGY ORDERABLES Final R esult [facility] [address] [place] [id number] * SCANNED OR REPORT (04/28/2010 12:00 AM [...] EST Name: BETZAIDA CHAN : 1960 VERIFIED [facility] Reason: 592.0/KUB Dict.Staff: ANGELA FARRIS [id number] Verified By: WILLA WEI Moncho: 11/05/09 11:32 pm Exams: [id number] KUB, 11/05/2009: COMPARISON: 09/08/2009. HISTORY: Right [...] 01/21/2010 Name: BETZAIDA CHAN : 1960 VERIFIED [facility] Reason: 592.0/KUB Dict.Staff: ANGELA FARRIS [id number] Verified By: WILLA WEI Moncho: 11/05/09 11:32 pm Exams: [id number] [id number] KUB, 11/05/2009: COMPARISON: 09/08/2009. HISTORY: Right flank pain, history of renal stones. IMPRESSION: Small bilateral intrarenal stones are stable. Previously seen right proximal ureteral stone is not seen on the current study. The intrarenal stones measure less than 5mm in size each. ANGELA FARRIS MD:joann DICTATED 11/05/2009 @ 15:30 end of result U Unknown [facility] LW RAD HISTORICAL Final Result * EK EKG REG (10/05/2009 12:01 AM EST) Anatomical Region Laterality Modality Other 10/05/2009 12:0 1 AM EST Narrative 10/06/2009 4:45 AM EST Sinus rhythm Anterior T wave changes are nonspecific, more pronounced than previous t racing Borderline ECG Socket Puller- JEFFREY MOSQUERA M.D. Released Date Time- 10/06/09 0445 Procedure Jeffrey Magaña - 12/17/2009 Sinus rhythm Anterior T wave changes are nonspecific, more pronounced than previous t racing Borderline ECG Socket Puller- JEFFREY MOSQUERA M.D. Released Date Time- 10/06/09 0445 Wiley Garza MD [facility] STAR CARD HISTORICAL Final Result * CT ABDOMEN W/O CONTRAST (09/08/2009 12:00 AM EST) Only the most recent of2 resultswithin the time period is included. Anatomical Region Laterality Modality Other 09/08/2009 09/08/2009 Narrative 09/08/2009 12:00 AM EST Name: BETZAIDA CHAN : 1960 VERIFIED [facility] Reason: ac9 stone protocol Dict.Staff: ESME FREEMAN [id number] Verified By: MIK FREEMAN Moncho: 09/09/09 11:04 [...] 01/21/2010 Name: BETZAIDA CHAN : 1960 VERIFIED [facility] Reason: ac9 stone protocol Dict.Staff: ESME FREEMAN [id number] Verified By: MIK FREEMAN Moncho: 09/09/09 11:04 [...] EDT Name: BETZAIDA CHAN : 1960 VERIFIED [facility] Reason: abd pain Dict.Staff: MARY RAMOS [id number] Verified By: ARMANDO SUNSHINE Moncho: 08/02/09 1:43 [...] 01/21/2010 Name: BETZAIDA CHAN : 1960 VERIFIED [facility] Reason: abd pain Dict.Staff: MARY RAMOS [id number] Verified By: ARMANDO SUNSHINE Moncho: 08/02/09 1:43 [...] unspecified hyperlipidemia 01/10/2013 CHF (congestive heart failure) ([facility]) Congestive heart failure, unspecified 01/10/2013 Headache(784.0) Headache 01/10/2013 Hypertension Unspecified essential hypertension 01/22/2013 CHF (congestive heart failure) ([facility]) Congestive heart failure, unspecified 01/22/2013 [...] type 2 diabetes mellitus with complication, unspecified fdc insulin use status 11/27/2016 Post-surgical hypothyroidism Postsurgical [...] excess calories (HCC) 03/06/2017 BMI 40.0-44.9, adult ([facility]) Body Mass Index 40.0-44.9, adult [...] excess calories (HCC) 03/12/2017 BMI 40.0-44.9, adult ([facility]) Body Mass Index 40.0-44.9, adult 03/12/2017 Congestive [...] Generalized anxiety disorder 03/30/2017 No diagnosis on Roscoe II Observation of other suspected mental condition [...] Morbid obesity with BMI of 40.0-44.9, adult ([facility]) 04/18/2017 Morbid obesity due to excess calories (HCC) 05/03/2017 Morbid obesity, unspecified obesity type (HCC) 05/03/2017 Morbid obesity with BMI of 40.0-44.9, adult (HCC) 05/03/2017 Vitamin deficiency Unspecified vitamin deficiency 05/08/2017 Morbid obesity with BMI of 40.0-44.9, adult (HCC) 05/17/2017 Uncontrolled type 2 diabetes mellitus with complication, with long-term current use of insulin 05/17/2017 Essential hypertension Unspecified essential hypertension 05/17/2017 Sleep apnea, unspecified type 05/17/2017 Morbid obesity due to excess calories ([facility]) 05/17/2017 Chest pain, unspecified type [...] Morbid obesity with BMI of 40.0-44.9, adult ([facility]) 05/17/2017 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, unspecified vessel or lesion type 05/21/2017 History of coronary artery stent placement 05/21/2017 Morbid obesity (HCC) Morbid obesity 05/21/2017 BMI 40.0-44.9, adult ([facility]) Body Mass Index 40.0-44.9, adult [...] complication, uncontrolled 05/30/2017 CHF (congestive heart failure) ([facility]) Congestive heart failure, unspecified 05/30/2017 Fatty liver Other chronic nonalcoholic liver disease 05/30/2017 Morbid obesity with BMI of 40.0-44.9, adult ([facility]) 05/30/2017 Sleep apnea Unspecified sleep [...] EDT) No Jigna Dove LCSW Care Teams Pattern Changer And Repairer Relationship Specialty Start Date End Date Chris Serra MD [address] [place] [address] [place] [address] Physician Internal Medicine-Cardiovascular Disease 01/16/13
== END 2025-06-01 23:59 | disposition home or self-care (01) ==
LOC: LAB 09:55 → RAD 09:55
PROVIDERS: PCP Nurse Practitioner Family; Visit Provider Podiatrist
DX: E11.621 Type 2 diabetes mellitus with foot ulcer (principal); L97.422 Non-pressure chronic ulcer of left heel and midfoot with fat layer exposed
CPT/HCPCS: 73630; 87070; 87205

== ENCOUNTER 2025-06-16 16:05 | Outpatient (CLI) | payer MEDICARE, MEDICAID, SELFPAY ==
[2025-06-16 17:43] LABS: Hemoglobin A1C 6.4 % (4.0-6.0)
[2025-06-16 18:33] LABS: Albumin Level 4.1 g/dl (3.5-5.0); Chloride 107 mmol/L (98-107); Sodium 144 mmol/L (136-145)
[2025-06-16 18:34] LABS: Potassium 4.5 mmoL/L (3.5-5.1)
[2025-06-16 18:36] LABS: Alanine Aminotransferase 11 U/L (12-78); Albumin/Globulin Ratio 1.5 (1.1-1.8); Alkaline Phosphatase 98 U/L (38-126); Anion Gap 13.5 mEq/L (5-15); Aspartate Amino Transferase 24 U/L (14-36); Bilirubin,Total 0.3 mg/dl (0.2-1.3); Blood Urea Nitrogen 23 mg/dl (7-17); Carbon Dioxide 28 mmol/L (22.0-30.0); Cholesterol 136 mg/dl (140-200); Creatinine,Serum 0.80 mg/dl (0.52-1.04); Estimated Glomerular Filt Rate 72 ml/min (>60); GFR (African American) 88 ML/MIN (>60); Globulin 2.8 g/dL (1.3-3.2); Total Protein,Serum 6.9 g/dl (6.3-8.2); Triglycerides 197 mg/dl (30-150)
[2025-06-16 18:37] LABS: Calcium 9.2 mg/dl (8.4-10.2); Glucose 93 mg/dl (74-100); HDL Cholesterol 40 mg/dl (40-60)
[2025-06-16 19:07] LABS: Thyroid Stimulating Hormone 0.03 uIU/mL (0.465-4.68)
--- OUTSIDE RECORDS SUMMARY | 2025-06-17 09:40 | XMS_ITS | Clinical Summary ---
Author Organization [facility] Address [address] [place] [address] Care Team Providers Care Echo Technician Name Role Phone Tiffany Mayen Primary Care Provider [phone] Source Comments This information has been disclosed [...] therelease of HIV test results or diagnoses. [id number] Allergies No known active allergies Immunizations [...] of Treatment Not on file Insurance MEDICAID [place] Care Teams Echo Technician Relationship Specialty Start Date End Date Tiffany Mayen [address] [facility] [address] [place] [address] PCP - General 07/12/16
--- OUTSIDE RECORDS SUMMARY | 2025-06-17 09:41 | XMS_ITS | Clinical Summary ---
Author Organization [facility] Address [address] [place] [address] Care Team Providers Care Esthetician/Owner Name Role Phone Unavailable Primary Care Provider [...] 09/09/2009 UKY-Zoster Vaccines (1 of 2) 2012 ONB-[id number]-13 Vaccine (1 - season) 2025 UKY-Influenza Vaccine (#1) 06/08/202507/19, 09/09/2009 UKY-RSV Vaccine: [...]
--- OUTSIDE RECORDS SUMMARY | 2025-06-17 09:41 | XMS_ITS | Encounter Summary ---
Author Organization [facility] [place] [address] Care Team Providers Care Information Management Specialist Name Role Phone Chris Serra MD Unavailable [phone] Reason for Visit * Reason Onset Date Comments Cancelled Appointment 06/04/2025 Encounter Details Date Type Department Care Team (Late st Contact Info) Description 06/04/[address] [facility] Physicians [facility] [address] [facility] [address] [place] [phone] Rojas Cunningham MD [address] [facility] [address] [place] [phone] Cancelled Appointment Social History Tobacco Use Types Packs/Day Years [...] Assessment Author No 05/31/2017 12:29 PM EDT ePng Soriano RN * Because of a physical, [...] encounter Miscellaneous Notes * Telephone Encounter - Edwige Myers - 06/04/2025 2:08 PM EDT left vm and sent mychart documented in this encounter Plan of Treatment Not on file documented as of this encounter Goals Goal Patient Goal Type Associated Problems Recent Progress Patient-Stated? Author Blood Pressure < 140/90 Blood Pressure 105/62(2024 3:01 PM EDT) No Jigna Dove LCSW BMI (Calculated) < 30 General 32.5(02/24/20 25 3:01 PM EDT) No Jigna Dove LCSW Maintain a healthy diet, exercise regularly and maintain an ideal body weight General No Jigna Dove LCSW HEMOGLOBIN A1C < 7.0 Result Component 7.2( 11:14 AM EDT) No Jigna Dove LCSW documented as of this encounter Visit Diagnoses Not on filedocumented in this encounter Care Teams Information Management Specialist Relationship Specialty Start Date End Date Chris Serra MD [address] [place] [address] [place] [address] Physician Internal Medicine-Cardiovascular Disease 01/16/13 documented as of this encounter
== END 2025-06-16 23:59 ==
LOC: LAB.DROPOF 06-17 09:32
PROVIDERS: PCP Nurse Practitioner Family; Visit Provider Nurse Practitioner Family
DX: E11.40 Type 2 diabetes mellitus with diabetic neuropathy, unspecified (principal); E78.5 Hyperlipidemia, unspecified
CPT/HCPCS: 80053; 80061; 83036; 84443

== ENCOUNTER 2025-06-22 12:04 | Outpatient (CLI) | payer MEDICARE, MEDICAID, SELFPAY ==
--- OUTSIDE RECORDS SUMMARY | 2025-06-22 12:08 | XMS_ITS | Clinical Summary ---
Author Organization [facility] Address [address] [place] [address] Care Team Providers Care Campus Manager Name Role Phone Unavailable Primary Care Provider [...] 09/09/2009 UKY-Zoster Vaccines (1 of 2) 2012 EQN-DIDIX-30 Vaccine (1 - season) 2025 UKY-Influenza Vaccine [...]
--- OUTSIDE RECORDS SUMMARY | 2025-06-22 12:08 | XMS_ITS | Encounter Summary ---
Author Organization [place] [address] Care Team Providers Care Hearing Dog Trainer Name Role Phone Chris Serra MD Unavailable [phone] Reason for Visit * Reason Onset Date Comments Labs Only 06/22/2025 Encounter Details Date Type Department Care Team (Late st Contact Info) Description 06/22/2025 Telephone [facility] [address] [facility] [address] [place] [phone] Rojas Cunningham MD [address] [facility] [address] [place] [phone] Labs Only Social History Tobacco [...] Telephone Encounter - Kadie Mahoney RMA - 06/22/2025 10:58 AM EDT Faxed lab orders Notified pt via * Telephone Encounter - Linda Olmstead - 06/22/2025 10:33 AM EDT pt called regarding faxed labs. pt says that the labwork that was faxed did not have signatures. Please obtain signatures and fax to [facility] at [phone] documented in this encounter Plan of Treatment Upcoming Encounters Date Type Department Care Team (Late st Contact Info) Description 07/09/2025 11:40 AM EDT Office Visit [facility] [address] [facility] [address] [place] [phone] Rojas Cunningham MD [address] [phone] documented as of this encounter [...] on filedocumented in this encounter Care Teams Hearing Dog Trainer Relationship Specialty Start Date End Date Chris Serra MD [address] [place] [address] [place] [address] Physician Internal Medicine-Cardiovascular Disease 01/16/13 documented as of this encounter
--- OUTSIDE RECORDS SUMMARY | 2025-06-22 12:08 | XMS_ITS | Encounter Summary ---
Author Organization [place] [address] Care Team Providers Care Doper Operator Name Role Phone Chris Serra MD Unavailable [phone] Reason for Visit * Reason Onset Date Comments Cancelled Appointment 06/04/2025 Encounter Details Date Type Department Care Team (Late st Contact Info) Description 06/04/2025 Telephone [facility] Physicians [facility] [address] [facility] [address] [place] [phone] Rojas Cunningham MD [address] [facility] [address] [place] [phone] Cancelled Appointment Social History Tobacco Use [...] Description 07/09/2025 11:40 AM EDT Office Visit [facility] [place] [address] [facility] [address] [place] [phone] Rojas Cunningham MD [address] [facility] [address] [place] [phone] documented as of this encounter Goals [...] HEMOGLOBIN A1C < 7.0 Result Component 7.2( 3 11:14 AM EDT) No Jigna Dove LCSW documented as of this encounter Visit Diagnoses Not on filedocumented in this encounter Care Teams Doper Operator Relationship Specialty Start Date End Date Chris Serra MD [address] [place] [address] [place] [address] Physician Internal Medicine-Cardiovascular Disease 01/16/13 documented as of this encounter
--- OUTSIDE RECORDS SUMMARY | 2025-06-22 12:08 | XMS_ITS | Clinical Summary ---
Author Organization [facility] Address [address] [place] [address] Care Team Providers Care Media Supervisor Name Role Phone Tiffany Mayen Primary Care Provider [phone] Source Comments This information has been disclosed [...] therelease of HIV test results or diagnoses. [id number] Allergies No known active allergies Immunizations [...] of Treatment Not on file Insurance MEDICAID [place] Care Teams Media Supervisor Relationship Specialty Start Date End Date Tiffany Mayen [address] [facility] [address] [place] [address] PCP - General 07/12/16
--- OUTSIDE RECORDS SUMMARY | 2025-06-22 12:10 | XMS_ITS | Continuity of Care Document ---
Author Organization [facility] Address [address] [place] [address] Phone Care Team Providers Care Water Maintenance Supervisor Name Role Phone Chris Serra MD Unavailable [phone] Encounters Date Type Department Care Team Description 06/22/[address] [facility] [address] [facility] [address] [place], [place] [phone] Rojas Cunningham MD Labs Only 06/04/[address] [facility] [address] [employer] [address] [place] [phone] Rojas Cunningham MD Cancelled Appointment 02/23/2025 Telephone [facility] [address] [place] [address] Rojas Cunningham MD Results (External Results Request - Diabetes Eye Exam ) 02/23/2025 3:00 PM EDT Office Visit [facility] [address] [employer] [address] [place] [phone] Rojas Cunningham MD Dyslipidemia associated with type 2 diabetes mellitus (HCC) (Primary Dx); Post-surgical hypothyroidism; Vitamin D deficiency; Follicular thyroid cancer (HCC) 02/16/[address] [facility] [address] [employer] [address] [place], [place] [phone] Rojas Cunningham MD Labs Only 02/12/[address] [facility] [address] [place] [address] Rojas Cunningham MD Paperwork/forms 09/01/[address] [facility] [address] [place] [address] Rojas Cunningham MD Paperwork/forms (TMS) 08/26/2024 10:40 AM EST Office Visit [facility] [address] [place] [address] Rojas Cunningham MD Dyslipidemia associated with type 2 diabetes mellitus (HCC) (Primary Dx); Post-surgical hypothyroidism; Vitamin D deficiency 07/18/[address] [facility] [address] [place] [address] Rojas Cunningham MD Medication Refill 07/14/[address] [facility] [address] [place] [address] Lissy Sagastume APRN Medication Refill 05/13/[address] [facility] [address] [place] [address] Lissy Sagastume APRN Medication Refill 05/08/2024 12:30 PM EDT Office Visit [facility] [address] [place] [address] Rojas Cunningham MD Post-surgical hypothyroidism (Primary Dx); Follicular thyroid cancer (HCC); Vitamin D deficiency; Dyslipidemia associated with type 2 diabetes mellitus (HCC) 04/30/[address] [facility] [address] [place] [address] Rojas Cunningham MD Other 04/03/2024 [facility] [address] [place], [place] [id number] Jael Baker [facility] Hyperlipidemia Management (Repatha) 01/09/[address] [address] Rojas Cunningham MD Medication Refill 01/08/[address] [address] Rojas Cunningham MD Medication Refill 01/08/2024 [facility] [address] [place] [address] Hyaicnth Mancilla [facility] Hyperlipidemia Management (Repatha ) 01/07/2024 Travel 01/07/2024 12:20 PM EDT Telemedicine [address] [address] Rojas Cunningham MD Dyslipidemia associated with type 2 diabetes mellitus (HCC) (Primary Dx); Post-surgical hypothyroidism; Follicular thyroid cancer (HCC); Vitamin D deficiency 12/26/[address] [address] Rojas Cunningham MD Labs Only 11/28/2023 [facility]ty [facility] [address] [place], [place] [id number] Mary Mancilla [facility] Pharmacy Hyperlipidemia Management; Pharmacy Reassessment (Repatha) 10/31/[address] [facility] [address] [employer] [address] [place] [address] Rojas Cunningham MD Medication Refill 10/10/2023 [facility] [address] [place], [place] [id number] Arnav Duong [facility] Pharm[facility] Hyperlipidemia Management (Repatha) 09/24/2023 1:50 PM EST Office Visit [facility] [address] [address] Rojas Cunningham MD Dyslipidemia associated with type 2 diabetes mellitus (HCC) (Primary Dx); Vitamin D deficiency; Post-surgical hypothyroidism; Follicular thyroid cancer (HCC) 09/18/[address] [facility] [address] [address] Rojas Cunningham MD Labs Only 09/17/[address] [facility] [address] [address] Rojas Cunningham MD Labs (Reminder call) 09/05/[address] [facility] [address] [address] Rojas Cunningham MD Medication Refill 07/18/[address] [facility] [address] [address] Rojas Cunningham MD Patient Education 07/16/2023 [facility]ty [facility] [address] [place] [address] Hyacinth Mancilla [facility] Pharmacy Hyperlipidemia Management (Repatha) 06/07/2023 2:50 PM EDT Office Visit [facility] [address] [address] Rojas Cunningham MD Dyslipidemia associated with type 2 diabetes mellitus (HCC) (Primary Dx); Vitamin D deficiency; Post-surgical hypothyroidism; Follicular thyroid cancer (HCC) 05/25/2023 9:30 AM EDT - 05/25/2023 11:59 PM EDT Hospital Encounter [facility] [address] [place] [address] Dyslipidemia associated with type 2 diabetes mellitus (HCC); Vitamin D deficiency; Post-surgical hypothyroidism Discharge Disposition: Home or Self Care 05/25/2023 10:00 AM EDT Office Visit [facility] [address] [place] [phone],LD Type 2 diabetes mellitus with hyperglycemia, with long-term current use of insulin (HCC) (Primary Dx) 05/19/[address] [facility] [address] [place] [phone] Rojas Cunningham MD Medication Refill 04/30/2023 Refill [place] [phone] Rojas Cunningham MD Medication Refill 04/23/2023 [facility] [address] [place] [address] Hyacinth Mancilla, [facility] Hyperlipidemia Management (Repatha ) 03/29/2023 2:40 PM EDT Office Visit [facility] [address] [place] [phone] Rojas Cunningham MD Dyslipidemia associated with type 2 diabetes mellitus (HCC) (Primary Dx); Post-surgical hypothyroidism; Vitamin D deficiency 03/27/2023 [facility]ty [facility] [address] [place] [address] Hyacinth Mancilla, [facility] Hyperlipidemia Management (Repatha ) 03/20/2023 Travel 03/20/2023 12:10 PM EDT - 03/20/2023 11:59 PM EDT Hospital Encounter [facility] [address] [place] [phone] Dyslipidemia associated with type 2 diabetes mellitus (HCC); Vitamin D deficiency; Post-surgical hypothyroidism Discharge Disposition: Home or Self Care 03/20/2023 1:00 PM EDT Office Visit [facility] [address] [address] Ara Horn, FREDDY,CDE Type 2 diabetes mellitus with hyperglycemia, with long-term current use of insulin (HCC) (Primary Dx) 03/14/2023 Telephone [place] [address] Rojas Cunningham MD Blood Sugar Problem 03/07/2023 Telephone [place] [address] Rojas Cunningham MD Labs Only 03/06/2023 Telephone [place] [address] Rojas Cunningham MD CGMS Interpretation (Milagro Report/Hyperglycemia) 02/14/2023 Telephone [place] [address] Rojas Cunningham MD Patient Education 02/05/2023 Refill [place] [address] Rojas Cunningham MD Medication Refill 02/02/2023 Telephone [place] [address] Rojas Cunningham MD Symptom Call; Appointment Needed; Lab Orders 01/12/[address] [facility] [address] [place] [address] Rojas Cunningham MD Medication Refill 12/21/2022 [facility]ty [facility] [address] [place], [place] [phone] Kerrie Almodovar, [facility] Hyperlipidemia Management (Repatha) 11/28/[address] [facility] [address] [place] [address] Rojas Cunningham MD Glucose Monitoring 11/28/2022 [facility]ty [facility] [address] [place], [place] [phone] Starr Ceja, [facility] Pharmacy Hyperlipidemia Management; Pharmacy Initial Assessment (Repatha) 11/28/2022 [address] Rojas Cunningham MD CGMS Interpretation (Milagro) 11/24/2022 [facility]ty [facility] [address] [place], [place] [phone] Ashley Ambrosio, [facility] Hyperlipidemia Management (Repatha) 11/23/2022 [facility]ty [facility] [address] [place], [place] [phone] Gerardo Hdz, [facility] Pharmacy Hyperlipidemia Management (Praluent) 11/23/2022 [place] [address] Michaelle Garcia LPN Dyslipidemia associated with type 2 diabetes mellitus (HCC); Hyperlipidemia associated with type 2 diabetes mellitus (HCC) 11/16/[address] [place] [address] Rojas Cunningham MD Medication Refill 11/15/[address] [facility] [address] [address] Rojas Cunningham MD Prior Authorization (Milagro-DME) 11/14/2022 7:50 AM EST Office Visit [facility] [address] [place] [phone] Rojas Cunningham MD Dyslipidemia associated with type 2 diabetes mellitus (HCC) (Primary Dx); Post-surgical hypothyroidism; Vitamin D deficiency 11/07/[address] [facility] [address] [place] [address] Rojas Cunningham MD Labs Only 10/30/[address] [facility] [address] [place] [address] Rojas Cunningham MD Medication Refill; Central Patient Navigator Outreach (med refills 2nd ) 10/01/[address] [facility] [address] [place] [address] Rojas Cunningham MD Medication Refill 08/15/[address] [facility] [address] [employer] [address] [place] [address] Rojas Cunningham MD Cancellation 08/06/[address] [facility] [address] [place], [place] [phone] Rojas Cunningham MD Medication Refill; Labs Only 07/10/[address] [facility] [address] [place] [address] Rojas Cunningham MD Symptom Call 06/29/[address] [facility] [address] [place] [address] Rojas Cunningham MD Medication Refill 06/23/[address] [facility] [address] [place] [phone] Rojas Cunningham MD Medication Refill 06/19/2022 Refill [facility] [address] [place] [phone] Rojas Cunningham MD Medication Refill 06/13/[address] [facility] [address] [employer] [address] [place] [address] Rojas Cunningham MD Medication Refill 06/01/2022 Refill [facility] [address] [employer] [address] [place] [address] Rojas Cunningham MD Medication Refill 05/09/2022 12:50 PM EDT Office Visit [facility] [address] [employer] [address] [place] [address] Rojas Cunningham MD Dyslipidemia associated with type 2 diabetes mellitus (HCC) (Primary Dx); Post-surgical hypothyroidism 05/04/[address] [facility] [address] [employer] [address] [place] [address] Rojas Cunningham MD Labs Only 03/10/[address] [facility] [address] [place] [address] Rojas Cunningham MD Medication Refill 02/15/2022 Refill [facility] [address] [place] [address] Rojas Cunningham MD Medication Refill 02/02/2022 1:20 PM EDT Office Visit [facility] [address] [place] [address] Rojas Cunningham MD Dyslipidemia associated with type 2 diabetes mellitus (HCC) (Primary Dx); Post-surgical hypothyroidism; Follicular thyroid cancer (HCC); Vitamin D deficiency 12/06/[address] [facility] [address] [facility] [address] [place] [address] Rojas Cunningham MD Medication Refill 12/01/2021 1:10 PM EST Office Visit [facility] 1500 [facility] [address]oth [facility] [address] [place] [address] Rojas Cunningham MD Dyslipidemia associated with type 2 diabetes mellitus (HCC) (Primary Dx); Vitamin D deficiency; Post-surgical hypothyroidism; Follicular thyroid cancer (HCC) 11/16/[address] [facility] [address] [facility] [address] [place] [address] Rojas Cunningham MD Medication Refill 11/12/[address] [facility] [address] [facility] [address] [place] [address] Rojas Cunningham MD Medication Refill 11/04/[address] [facility] [address] [facility] [address] [place] [address] Rojas Cunningham MD Medication Refill; Appointment Needed 10/21/[address] [facility] [address] [place] [address] Rojas Cunningham MD Other (Antibodies); Cancellation 10/18/[address] [facility] [address] [employer] [facility] [address] [place] [address] Rojas Cunningham MD Labs Only 09/12/[address] [facility] [address] [facility] [address] [place] [address] Rojas Cunningham MD Reschedule 09/06/[address] [address] Rojas Cunningham MD Labs Only 09/05/[address] [facility] [address] [facility] [address] [place], [place] [phone] Rojas Cunningham MD Labs Only 08/12/[address] [facility] [address] [facility] [address] [place] [address] Rojas Cunningham MD Medication Refill 07/29/2021 Travel 07/29/2021 11:00 AM EDT Office Visit [facility] [address] [address] Willa Horton LPN Dyslipidemia associated with type 2 diabetes mellitus (HCC) (Primary Dx); Diabetic autonomic neuropathy associated with type 2 diabetes mellitus (HCC) 07/25/[address] [facility] [address] [facility] [address] [place] [address] Rojas Cunningham MD Medication Refill (Milagro 14 days sensor) 07/15/2021 Travel 07/15/2021 11:00 AM EDT Office Visit [facility] [address] [place] [address] Willa Horton LPN Uncontrolled type 2 diabetes mellitus with complication (HCC) (Primary Dx) 07/12/[address] [place] [address] Rojas Cunningahm MD Other (Milagro 2) 07/01/[address] [facility] [address] [place] [address] Rojas Cunningham MD Medication Refill 06/09/[address] [facility] [address] [place] [address] Rojas Cunningham MD Results 06/06/2021 Travel 06/06/2021 12:00 PM EDT Office Visit [facility] [address] [employer] [address] [place] [phone] Rojas Cunningham MD Dyslipidemia associated with type 2 diabetes mellitus (HCC) (Primary Dx); Vitamin D deficiency; Statin intolerance 06/04/[address] [facility] [address] [facility] [address] [place], [place] [phone] Rojas Cunningham MD Medication Refill 05/30/[address] [place], [place] [phone] Rojas Cunningham MD Labs Only 05/19/[address] [place], [place] [phone] Rojas Cunningham MD Medication Refill 05/06/[address] [facility] [address] [employer] [address] [place] [address] Rojas Cunningham MD Medication Refill 04/14/2021 Travel 04/14/2021 11:30 AM EDT Office Visit [facility] [address] [place] [address] Willa Horton LPN Uncontrolled type 2 diabetes mellitus with complication (HCC) (Primary Dx) 04/14/2021 Telephone [place] [address] Rojas Cunningham MD CGMS Interpretation (Personal Milagro 2 download) 04/12/2021 [facility]ty [facility] [address] [place] [address] Starr Ceja, [facility] Pharmacy Hyperlipidemia Management 03/22/[address] [place] [address] Rojas Cunningham MD Prior Authorization 03/17/[address] [place] [address] Rojas Cunningham MD Glucose Monitoring 03/04/2021 Travel 03/04/2021 4:15 PM EDT Office Visit [facility] [address] [place] [address] Willa Horton LPN Uncontrolled type 2 diabetes mellitus with complication (HCC) (Primary Dx) 03/04/[address] [facility] [address] [place] [address] Rojas Cunningham MD CGMS Interpretation (Personal Milagro 2 download) 02/23/[address] [facility] [address] [place] [address] Rojas Cunningham MD CGMS Interpretation (Milagro 2) 02/23/[address] [facility] [address] [place] [address] Rojas Cunningham MD Blood Sugar Problem 02/08/2021 Travel 02/08/2021 11:00 AM EDT Office Visit [facility] [address] [place] [address] Willa Horton LPN Uncontrolled type 2 diabetes mellitus with complication (HCC) (Primary Dx) 02/04/2021 [facility]ty [facility] [address] [place] [phone] Starr Ceja, [facility] Pharmacy Hyperlipidemia Management; Pharmacy Initial Assessment 02/04/[address] [facility] [address] [place] [address] Rojas Cunningham MD Schedule Appointment 02/03/2021 [facility] [address] [place] [address] Ck Landaverde, [facility] Pharmacy Hyperlipidemia Management 02/03/2021 Travel 02/03/2021 12:50 PM EDT Office Visit [facility] [address] [employer] [address] [place] [phone] Rojas Cunningham MD Dyslipidemia associated with type 2 diabetes mellitus (HCC) (Primary Dx); Post-surgical hypothyroidism; Vitamin D deficiency 02/01/[address] [facility] [address] [facility] [address] [place] [phone] Rojas Cunningham MD Labs Only 01/25/[address] [facility] [address] [address] Rojas Cunningham MD Labs Only 01/03/2021 Refill [place] [address] [place] [address] Rojas Cunningham MD Medication Refill 11/17/[address] [facility] [address] [place] [address] Rojas Cunningham MD Symptom Call 11/16/2020 [facility]ty [facility] [address] [place] [phone] Jael Baker [facility]PhT Pharmacy Hyperlipidemia Management (Praluent Refill) 10/28/2020 Travel 10/28/2020 1:00 PM EST Office Visit [address] [place] [address] Rojas Cunningham MD Dyslipidemia associated with type 2 diabetes mellitus (HCC) (Primary Dx); Post-surgical hypothyroidism; Follicular thyroid cancer (HCC); Vitamin D deficiency 10/26/2020 [facility] [address] [place] [address] Jael Baker [facility]Ph[facility] Pharmacy Hyperlipidemia Management (Praluent Refill) 10/20/[address] [facility] [address] [facility] [address] [place], [place] [phone] Rojas Cunningham MD Labs Only 09/29/2020 [facility] [address] [place] [address] Little Cruz [facility] Hyperlipidemia Management 09/08/2020 [facility] [address] [place] [address] Khushi Watson [facility] Hyperlipidemia Management 08/19/2020 Refill [place] [address] [place] [address] Rojas Cunningham MD Medication Refill 08/11/2020 Refill [place] [address] [place] [address] Rojas Cunningham MD Medication Refill 08/09/2020 [facility] [address] [place] [address] Yanick Wilks [facility] Hyperlipidemia Management (Praluent) 08/09/2020 Refill [place] [address] [place] [address] Rojas Cunningham MD Medication Refill 07/19/2020 [facility] [address] [place] [address] Yanick Wilks [facility] Hyperlipidemia Management (Praluent) 07/15/2020 Travel 07/15/2020 1:50 PM EDT Office Visit [place] [address] [address] Rojas Cunningham MD Dyslipidemia associated with type 2 diabetes mellitus (HCC) (Primary Dx); Post-surgical hypothyroidism; Vitamin D deficiency; Follicular thyroid cancer (HCC) 07/05/2020 Telephone [place] [address] [address] [address] Rojas Cunningham MD Labs Only 06/23/2020 [facility] [address] [place] [address] Jael Baker [facility] Hyperlipidemia Management (Praluent) 06/22/[address] [facility] [address] [facility] [address] [place] [phone] Rojas Cunningham MD Other (Office Notes) 06/02/2020 [facility] [address] [place], [place] [phone] Yanick Wilks [facility] Hyperlipidemia Management (Praluent) 05/10/2020 [facility]ty [facility] [address] [place], [place] [phone] Trisha Alexander, [facility] Hyperlipidemia Management (Praluent refill ) 04/12/2020 Travel 04/12/2020 10:30 AM EDT - 04/12/2020 11:59 PM EDT Hospital Encounter [facility] [address] [place] [address] Emg, Sudheer Ritu Bilateral carpal tunnel syndrome (Primary Dx) Discharge Disposition: Home or Self Care 03/29/[address] [facility] [address] [phone] Rojas Cunningham MD Diabetes (Dexcom Information ) 03/29/2020 Orders Only [facility] [address] [place], [place] [id number] Michael Verdin MD Carpal tunnel syndrome, bilateral (Primary Dx) 2020 Travel 2020 [facility]ty [facility] [address] [place] [address] Trisha Alexander, [facility] Hyperlipidemia Management (Praluent refill ) 2020 9:50 AM EDT Office Visit [place] [address] [address] [address] Rojas Cunningham MD Dyslipidemia associated with type 2 diabetes mellitus (HCC) (Primary Dx); Post-surgical hypothyroidism; Follicular thyroid cancer (HCC); Vitamin D deficiency 03/17/[address] [facility] [address] [address] Rojas Cunningham MD Other (Office Visit Reminder) 03/09/2020 [place] [address] Rojas Cunningham MD Reschedule (03/18/20 appointment) 03/08/2020 [place] [address] Rojas Cunningham MD Lab Orders 02/23/2020 [facility] [address] [place] [address] Yanick Wilks [facility] Pharmacy Hyperlipidemia Management (Praluent) 02/18/2020 [address] Rojas Cunningham MD Medication Refill 01/22/2020 [facility]ty [facility] [address] [place] [phone] Yanick Wilks [facility] Pharmacy Hyperlipidemia Management (Praluent refill) 01/21/2020 [place] [address] Belia Spence APRN Medication Refill 12/26/2019 [facility]ty [facility] [address] [place] [phone] Yanick Wilks [facility] Pharm[facility] Hyperlipidemia Management (Praluent refill) 12/25/2019 Travel 12/05/2019 Specialty Pharmacy ED[facility] [place] [phone] Yanick Wilks [facility] Pharmacy Hyperlipidemia Management (Praluent refill) 11/17/2019 [place] [address] Rojas Cunningham MD Medication Refill 11/13/2019 Specialty Pharmacy [facility] [address] [place] [address] [place] [address] Esteban Flores [facility] Hyperlipidemia Management 11/13/2019 Specialty Pharmacy [facility] [address] [place] [address] [place] [address] Starr Ceja [facility] Pharmacy Hyperlipidemia Management; Pharmacy Initial Assessment 10/31/[address] [facility] [address] [place] [phone] Rojas Cunningham MD Labs Only (Genetic Testing for FH ) 10/13/2019 Specialty Pharmacy [facility] [address] [place] [address] [place] [address] Esteban Flores [facility] Hyperlipidemia Management 10/13/2019 1:40 PM EST Office Visit [facility] [address] [place] [address] Rojas Cunningham MD Dyslipidemia associated with type 2 diabetes mellitus (HCC) (Primary Dx); Post-surgical hypothyroidism; Follicular thyroid cancer (HCC); Vitamin D deficiency 10/02/[address] [facility] [address] [place] [phone] Rojas Cunningham MD Labs Only 09/16/[address] [facility] [address] [place] [phone] Belia Spence APRN Medication Refill 08/08/[address] [facility] [address] [place] [phone] Belia Spence APRN Medication Refill 07/02/2019 1:40 PM EDT Office Visit [facility] [address] [place] [phone] Rojas Cunningham MD Dyslipidemia associated with type 2 diabetes mellitus (HCC) (Primary Dx); Post-surgical hypothyroidism 06/23/[address] [facility] [address] [facility] [address] [place] [phone] Rojas Cunningham MD Labs Only 06/23/[address] [facility] [address] [facility] [address] [place] [phone] Rojas Cunningham MD Labs Only 05/29/[address] [facility] [address] [facility] [address] [place] [phone] Rojas Cunningham MD Labs Only 05/16/2019 Telephone [facility] [place] [address] Rosy Toth CCMA Other (accreditation) 03/04/2019 1:00 PM EDT Office Visit [place] [address] [address] [facility] [address] [place], [place] [phone] Belia Spence APRN Uncontrolled type 2 diabetes mellitus with complication (HCC) (Primary Dx); Post-surgical hypothyroidism; Follicular thyroid cancer (HCC); Diabetic autonomic neuropathy associated with type 2 diabetes mellitus (HCC); Mixed dyslipidemia; Vitamin D deficiency; Statin intolerance; Essential hypertension; Sleep apnea, unspecified type; MEIER (nonalcoholic steatohepatitis) 02/27/[address] [facility] [address] [facility] [address] [place], [place] [phone] Belia Spence APRN Labs Only 01/30/[address] [facility] [address] [facility] [address] [place] [phone] Rojas Cunningham MD Glucose Monitoring (01/17/19-01/29/19) 01/29/[address] [facility] [address] [place] [phone] Rojas Cunningham MD CGMS Interpretation (Milagro Pro) 01/29/2019 1:00 PM EDT Office Visit [facility] [address] [employer] [address] [place] [phone] Uncontrolled type 2 diabetes mellitus with complication (HCC) (Primary Dx) 01/16/2019 2:30 PM EDT Office Visit [facility] [address] [employer] [address] [place] [phone] Rojas Cunningham MD Dyslipidemia associated with type 2 diabetes mellitus (HCC) (Primary Dx); Post-surgical hypothyroidism; Follicular thyroid cancer (HCC); Statin intolerance; Vitamin D deficiency 01/08/2019 Telephone [facility] [address] [address] Rojas Cunningham MD Labs Only 01/08/2019 Refill [facility] 7[address] [facility] [address] [place] [address] Boy Brown MD Medication Refill 01/07/2019 Patient Outreach [facility] [address] [place] [address] Maranda Jorgensen, ADULT AND PEDIATRIC NEUROLOGIST Referral Follow-up 12/27/[address] [facility] [address] [employer] [address] [phone] Belia Spence APRN Glucose Monitoring (11/21/18-12/24/18) 11/22/[address] [facility] [address] [employer] [address] [place] [phone] Rojas Cunningham MD Diabetes (Milagro due ) 11/22/2018 3:00 PM EST Office Visit [facility] [address] [employer] [address] [phone] Willa Garcia RN Uncontrolled type 2 diabetes mellitus with complication (HCC) (Primary Dx) 11/21/[address] [facility] [address] [place] [phone] Rojas Cunningham MD Medication Refill 11/20/2018 Social Work [facility] [place] [address] [place] [address] Jigna Dove LCSW Referral Follow-up 11/20/2018 Patient Outreach [facility] [address] [place] [address] Sherrie Khan, circulation crew leader 11/20/2018 1:50 PM EST Office Visit [facility] [address] [employer] [address] [place], [place] [phone] Rojas Cunningham MD Dyslipidemia associated with type 2 diabetes mellitus (HCC) (Primary Dx); Post-surgical hypothyroidism 11/14/[address] [facility] [address] [employer] [address] [place], [place] [phone] Rojas Cunningham MD Labs Only 11/13/[address] [facility] [address] [employer] [address] [place], [place] [phone] Belia Spence APRN Labs Only 10/16/[address] [facility] [address] [employer] [address] [phone] Rojas Cunningham MD Reschedule (10/24/18 appointment) 09/03/[address] [facility] [address] [employer] [address] [place] [phone] Belia Spence APRN Medication Refill 08/12/[address] [facility] [address] [employer] [address] [place] [address] Rojas Cunningham MD Paperwork/forms (Office Notes) 07/22/2018 Telephone [facility] [address] [place] [address] Rosy Paulino, CCMA Results 07/22/2018 Telephone [facility] [address] [place] [address] Nguyen Hays, CCMA Results 07/19/2018 10:20 AM EDT Office Visit [facility] [address] [facility] [address] [place] [phone] Belia Spence APRN Uncontrolled type 2 diabetes [...] PM EDT Hospital Encounter [facility] [address] [place] [address] S/P laparoscopic sleeve gastrectomy; Postsurgical malabsorption; Encounter for vitamin deficiency screening Discharge Disposition: Home or Self Care 07/05/2018 11:15 AM EDT Office Visit [facility] [address] [place] [address] Lauren Fraser APRN S/P laparoscopic sleeve gastrectomy (Primary Dx); Vitamin D deficiency; Uncontrolled type 2 diabetes mellitus with complication, with long-term current use of insulin (HCC); Mixed dyslipidemia; Gastroesophageal reflux disease without esophagitis; Postsurgical malabsorption; Encounter for vitamin deficiency screening 06/12/[address] [facility] [address] [facility] [address] [place] [phone] Rojas Cunningham MD Labs Only 05/07/[address] [facility] [address] [facility] [address] [place] [phone] Belia Spence APRN Reschedule 05/03/[address] [facility] [address] [facility] [address] [place] [phone] Rojas Cunningham MD Labs Only 04/15/[address] [facility] [address] [facility] [address] [place] [phone] Rojas Cunningham MD Reschedule 04/03/2018 Refill [facility] [address] [place] [address] Gila Winter APRN Medication Refill 02/18/[address] [facility] [address] [phone] Rojas Cunningham MD Lab Orders 01/22/2018 Telephone [facility] [address] [place] [phone] Fernando Marielos Belem Mcfadden RMA Results 01/07/2018 Telephone [facility] [address] [place] [address] Fernando, January Bleem Mcfadden, RMA Results 01/02/2018 8:49 AM EDT - 01/02/2018 11:59 PM EDT Hospital Encounter [facility] [address] [place] [address] Follicular thyroid cancer (HCC); Post-surgical hypothyroidism; Uncontrolled type 2 diabetes mellitus with complication, with long-term current use of insulin (HCC); S/P laparoscopic sleeve gastrectomy; Hypocalcemia Discharge Disposition: Home or Self Care 01/02/2018 10:00 AM EDT Office Visit [facility] [address] [phone] Boy Brown MD Type 2 diabetes mellitus without retinopathy (HCC) (Primary Dx); KCS (keratoconjunctivitis sicca) (HCC); Contact dermatitis of right eyelid; Refractive error 12/27/[address] [facility] [address] [facility] [address] [place] [phone] Rojas Cunningham MD Medication Refill 12/20/[address] [facility] [address] [place] [address] Rojas Cunningham MD Samples 12/10/2017 2:15 PM EST Office Visit [facility] [address] [place] [address] Gila Winter, ANJANA Class 2 severe obesity due to excess [...] disease, esophagitis presence not specified 12/06/2017 Telephone [place] [address] [place] [address] Rojas Cunningham MD Results 12/03/2017 Telephone [place] [address] [place] [address] Rojas Cunningham MD Results 11/29/2017 2:40 PM EST Office Visit [facility] [address] [place] [address] Rojas Cunningham MD Uncontrolled type 2 diabetes mellitus with complication, with long-term current use of insulin (HCC) (Primary Dx); Post-surgical hypothyroidism; Follicular thyroid cancer (HCC); Mixed dyslipidemia; Vitamin D deficiency 11/20/[address] [facility] [address] [place] [address] Rojas Cunningham MD Glucose Monitoring (BSL ) 11/19/[address] [facility] [address] [place] [address] Rojas Cunningham MD Lab Orders 10/26/[address] [facility] [address] [address] Rojas Cunningham MD Results 10/26/[address] [facility] [address] [facility] [address] [place] [address] Rojas Cunningham MD Uncontrolled type 2 diabetes mellitus with complication, with long-term current use of insulin (HCC) (Primary Dx); Post-surgical hypothyroidism; Follicular thyroid cancer (HCC); Mixed dyslipidemia 10/24/2017 11:30 AM EST - 10/24/2017 11:59 PM EST Hospital Encounter [facility] [address] [place] [address] Dyslipidemia associated with type 2 diabetes mellitus (HCC); Vitamin D deficiency; Post-surgical hypothyroidism Discharge Disposition: Home or Self Care 10/24/2017 10:50 AM EST Office Visit [facility] [address] [place] [address] Rojas Cunningham MD Uncontrolled type 2 diabetes mellitus with complication, with long-term current use of insulin (HCC) (Primary Dx); Post-surgical hypothyroidism; Mixed dyslipidemia; Vitamin D deficiency 10/22/[address] [facility] [address] [place] [address] Rojas Cunningham MD Reschedule 10/10/[address] [facility] [address] [facility] [address] [place] [phone] Rojas Cunningham MD Samples 09/22/[address] [facility] [address] [facility] [address] [place] [address] Rojas Cunningham MD Medication Refill 09/12/[address] [facility] [address] [facility] [address] [place] [address] Rojas Cunningham MD Glucose Monitoring (Milagro inserted) 09/12/2017 Refill [facility] [address] [place] [phone] Gila Winter APRN Medication Refill 09/12/2017 1:30 PM EST Office Visit [place] [address] Rojas Cunningham MD Dyslipidemia associated with type 2 diabetes mellitus (HCC) (Primary Dx); Follicular thyroid cancer (HCC); Post-surgical hypothyroidism; Vitamin D deficiency 09/07/2017 [place] [address] Rojas Cunningham MD Glucose Monitoring (BSL) 08/28/2017 [place] [address] Rojas Cunningham MD Glucose Monitoring (BSL) 08/28/2017 10:30 AM EST Office Visit [facility] [address] [place] [address] Gila Winter APRN Class 2 [...] [facility] [address] [place] [address] Gila Winter APRN Medication Refill (Carafate) 08/03/2017 Telephone [facility] [address] [address] Boy Brown MD Medication Change 08/03/2017 10:15 AM EDT Office Visit [facility] [address] [address] Boy Brown MD Contact dermatitis of right eyelid (Primary Dx); Allergic conjunctivitis of both eyes 08/02/2017 1:10 PM EDT Office Visit [facility] [address] [employer] [address] [place] [phone] Rojas Cunningham MD Dyslipidemia associated with type 2 diabetes mellitus (HCC) (Primary Dx); Post-surgical hypothyroidism; Vitamin D deficiency 07/10/[address] [facility] [address] [employer] [address] [phone] Rojas Cunningham MD Results ([facility]) 07/10/2017 2:00 PM EDT Office Visit [facility] [address] [place] [address] Jose Venegas, FREDDY Obesity, Class II, BMI 35-39.9, with comorbidity (Primary Dx) 07/03/2017 1:40 PM EDT Office Visit [facility] [address] [phone] Rojas Cunningham MD Dyslipidemia associated with type 2 diabetes mellitus (HCC) (Primary Dx); Vitamin D deficiency 07/03/2017 11:15 AM EDT Office Visit [facility] [address] [place] [phone] Gila Winter APRN Class 2 obesity due [...] disease, esophagitis presence not specified 06/29/[address] [facility] [address] [place] [address] Rojas Cunningham MD Medication Management 06/27/[address] [facility] [address] [facility] [address] [place] [address] Rojas Cunningham MD Lab Orders 06/22/[address] [facility] [address] [facility] [address] [place] [address] Rojas Cunningham MD Glucose Monitoring 06/22/2017 Telephone [place] [address] [address] [facility] [address] [place] [address] Rojas Cunningham MD Samples 06/21/2017 Telephone [facility] [address] [place] [address] Rosy Toth CCMA Visit Follow Up (results) 06/21/[address] [facility] [address] [facility] [address] [place] [address] Rojas Cunningham MD Medication Management 06/19/[address] [facility] [address] [facility] [address] [place] [address] Rojas Cunningham MD Diabetes (High blood sugars) 06/14/2017 1:35 PM EDT - 06/14/2017 11:59 PM EDT Hospital Encounter [facility] [address] [place] [address] Leg cramps; Thiamine deficiency; S/P laparoscopic sleeve gastrectomy; Postsurgical malabsorption Discharge Disposition: Home or Self Care 06/14/2017 1:00 PM EDT Office Visit [facility] [address] [place] [address] Lauren Fraser APRN Leg cramps (Primary Dx); Thiamine deficiency; S/P laparoscopic sleeve gastrectomy; Postsurgical malabsorption; Essential hypertension; Uncontrolled type 2 diabetes mellitus with complication, with long-term current use of insulin (HCC); Sleep apnea, unspecified type 06/08/2017 Telephone [facility] [address] [place] [address] FernandoJanuary Belem Lesa TERESITA Results (Lab results ) 06/06/2017 1:50 PM EDT - 06/06/2017 11:59 PM EDT Hospital Encounter [facility] [address] [place] [address] Fever, unspecified fever cause; Cough; History of sleeve gastrectomy; Platelet inhibition due to Plavix Discharge Disposition: Home or Self Care 06/06/2017 1:15 PM EDT Office Visit [facility] [address] [place] [address] Gila Winter APRN Fever, unspecified fever cause (Primary Dx); Cough; History of sleeve gastrectomy; Platelet inhibition due to Plavix; Gastroesophageal reflux disease, esophagitis presence not specified; Diarrhea of presumed infectious origin; Uncontrolled type 2 diabetes mellitus with complication, with long-term current use of insulin ([facility]); Class 2 obesity due to excess calories with serious comorbidity and body mass index (BMI) of 39.0 to 39.9 in adult; Mixed dyslipidemia; Essential hypertension; Sleep apnea, unspecified type; H/O heart artery stent; S/P laparoscopic sleeve gastrectomy 05/30/2017 7:47 AM EDT - 05/31/2017 3:22 PM EDT Hospital Encounter [facility] [address] [place] [address] Duncan Choi MD Discharge Disposition: Home or Self Care 05/30/2017 10:15 AM EDT - 05/30/2017 12:00 PM EDT Surgery [facility] [address] [place] [address] Duncan Choi MD LAPAROSCOPIC SLEEVE GASTRECTOMY POSSIBLE LAPAROSCOPIC HIATAL HERNIA REPAIR 05/30/2017 9:56 AM EDT Anesthesia Event [facility] [address] [place] [address] Mat Martinez MD Zehnder, Wende, ELECTRIC INSTALLER 05/23/2017 11:12 AM EDT - 05/23/2017 11:59 PM EDT Hospital Encounter [facility] [address] [place] [address] Pat, [facility] Preop testing (Primary Dx); Morbid obesity due to excess calories (HCC) Discharge Disposition: Home or Self Care 05/22/2017 Telephone [facility] [address] [place] [address] Rosy Toth CCMA Visit Follow Up 05/21/2017 1:30 PM EDT Office Visit [facility] [address] [place] [address] Gila Winter, ANJANA Coronary artery disease of [place] heart with stable angina pectoris, unspecified vessel [...] Visit [facility] [address] [place] [address] Ara Horn, FREDDY,CDE Morbid obesity with BMI of 40.0-44.9, adult (HCC) (Primary Dx) 05/17/2017 11:00 AM EDT Office Visit [facility] Sleep Medicine [address] [place] [phone] Emre Houston MD Sleep apnea, unspecified [...] hypothyroidism; Follicular thyroid cancer (HCC); Fatty liver; EMIER (nonalcoholic steatohepatitis); Morbid obesity with BMI of 40.0-44.9, adult (HCC) 05/11/[address] [facility] [address] [facility] [address] [place] [phone] Rojas Cunningham MD Other 05/08/2017 Orders Only [facility] [address] [place] [phone] Gila Winter APRN Vitamin deficiency (Primary Dx) 05/08/2017 Telephone [facility] [address] [place] [address] Evi Jones, Clerical Staff Other 05/03/2017 Telephone [facility] [address] [place] [address] Urmila Massey Other 05/03/2017 8:30 AM EDT Office Visit [facility] [address] [place] [address] Morbid obesity due to excess calories (HCC) (Primary Dx) 05/03/2017 11:00 AM EDT Office Visit [facility] [address] [place] [address] Ara Horn, RD,CDE Morbid obesity, unspecified obesity type (HCC) (Primary Dx); Morbid obesity with BMI of 40.0-44.9, adult (HCC) 04/26/[address] [facility] [address] [facility] [address] [place] [phone] Rojas Cunningham MD Other (DM Shoes ) 04/18/2017 2:00 PM EDT Office Visit [facility] [address] [place] [address] Duncan Choi MD Morbid obesity with BMI of 40.0-44.9, adult (HCC) (Primary Dx) 04/16/2017 4:30 PM EDT Office Visit [facility] [address] [place] [address] Morbid obesity due to excess calories (HCC) (Primary Dx) 04/06/[address] [facility] [address] [facility] [address] [place] [phone] Rojas Cunningham MD Other (U-500 patient) 04/03/2017 9:00 AM EDT Office Visit [facility] [address] [place] [address] Gila Winter APRN Morbid obesity [...] 11:59 PM EDT Hospital Encounter [facility] [address] [place] [address] Morbid obesity due to excess calories (HCC); Weight gain Discharge Disposition: Home or Self Care 03/30/2017 9:00 AM EDT Office Visit [facility] [address] [place] [address] Vika Hunter, PHD Other specified eating disorder (Primary Dx); Major depressive disorder, recurrent episode, in partial remission; Generalized anxiety disorder; No diagnosis on [place]; Morbid obesity due to excess calories (HCC); BMI 40.0-44.9, adult (HCC) 03/26/2017 Telephone [facility] [address] [place] [address] FernandoJanuary TERESITA Burton Visit Follow Up (lab results) 03/19/2017 4:30 PM EDT Office Visit [facility] [address] [place] [address] Obesity (BMI 30-39.9) (Primary Dx) 03/13/2017 Orders Only [facility] [address] [place] [address] Gila Winter APRN Morbid obesity due to excess calories (HCC) (Primary Dx); Weight gain 03/12/2017 5:55 PM EDT - 03/12/2017 11:59 PM EDT Hospital Encounter [facility] [address] [place] [address] Weight gain; SATYA (obstructive sleep [...] Disposition: Home or Self Care 03/12/[address] [facility] [address] [place] [phone] Rojas Cunningham MD Medication Management 03/12/2017 4:30 PM EDT Office Visit [facility] [address] [place] [address] Weight gain (Primary Dx) 03/06/[address] [facility] [address] [place] [phone] Rojas Cunningham MD Glucose Monitoring 03/06/[address] [facility] [address] [place] [phone] Rojas Cunningham MD Labs Only (question about labs) 03/06/2017 9:30 AM EDT Office Visit [facility] [address] [place] [address] Gila Winter APRN Weight gain [...] Hypocalcemia 03/06/2017 11:10 AM EDT Office Visit [facility] [address] [place] [phone] Rojas Cunningham MD Uncontrolled type 2 diabetes mellitus without complication, with long-term current use of insulin (HCC) (Primary Dx); Vitamin D deficiency; Post-surgical hypothyroidism 01/31/2017 4:00 PM EDT Office Visit [facility] [address] [place] [address] Gila Winter APRN History of weight gain (Primary Dx); Morbid obesity due to excess calories ([facility]); BMI 40.0-44.9, adult ([facility]) 01/26/2017 6:00 PM EDT Office Visit [facility] [address] [place] [address] Morbid obesity due to excess calories ([facility]) 01/26/2017 Telephone [facility] [address] [place] [phone] [place]ila metcalf Roxie Other 01/26/2017 10:10 AM EDT Office Visit [facility] [address] [place] [phone] Clif Granado MD Uncontrolled type 2 diabetes mellitus with complication, with long-term current use of insulin ([facility]) (Primary Dx); Sleep apnea, unspecified type; Morbid obesity due to excess calories ([facility]) 01/08/[address] [facility] [address] [facility] [address] [place] [phone] Rojas Cunningham MD Medication Refill 01/02/[address] [facility] [address] [address] Belia Spence APRN Results 11/27/[address] [facility] [address] [place] [address] Belia Spence APRN Results (labs) 11/27/2016 1:20 PM EST Office Visit [facility] [address] [place] [address] Belia Spence APRN Mixed dyslipidemia (Primary Dx); Uncontrolled type 2 diabetes mellitus with complication, with long-term current use of insulin (HCC); Post-surgical hypothyroidism; Follicular thyroid cancer ([facility]); Essential hypertension; Sleep apnea, unspecified type; Vitamin D deficiency; Morbid obesity with BMI of 45.0-49.9, adult ([facility]) 10/31/[address] [facility] [address] [place] [address] Rojas Cunningham MD Labs Only 10/31/[address] [facility] [address] [place] [address] Rojas Cunningham MD Medication Refill 10/06/[address] [facility] [address] [place] [address] Rojas Cunningham MD Cancellation 10/04/[address] [facility] [address] [place] [address] Rojas Cunningham MD Labs Only 08/28/[address] [facility] [address] [place] [address] Rojas Cunningham MD Results 08/22/2016 1:10 PM EST - 08/22/2016 11:59 PM EST Hospital Encounter [facility] [address] [place] [address] Uncontrolled type 2 diabetes mellitus without complication, with long-term current use of insulin (HCC); Vitamin D deficiency; Mixed dyslipidemia; Post-surgical hypothyroidism; Follicular thyroid cancer (HCC) Discharge Disposition: Home or Self Care 08/22/2016 12:20 PM EST Office Visit [facility] [address] [employer] [address] [place] [address] Rojas Cunningham MD Uncontrolled type 2 diabetes mellitus without complication, with long-term current use of insulin (HCC) (Primary Dx); Follicular thyroid cancer (HCC); Post-surgical hypothyroidism; Mixed dyslipidemia; Vitamin D deficiency; Statin intolerance 08/21/[address] [facility] [address] [address] [place] [address] Rojas Cunningham MD Labs Only 08/18/[address] [facility] [address] [employer] [address] [place] [address] Rojas Cunningham MD Labs Only (Reminder) 08/03/[address] [facility] [address] [address] [address] Rojas Cunningham MD Results 07/25/[address] [facility] [address] [employer] [address] [address] Rojas Cunningham MD Results (Body Scan) 07/14/2016 6:35 AM EDT - 07/14/2016 11:59 PM EDT Hospital Encounter [facility] [address] [place] [address] Malignant neoplasm of thyroid gland (HCC) (Primary Dx); Follicular thyroid cancer (HCC) Discharge Disposition: Home or Self Care 07/13/[address] [facility] [address] [employer] [address] [place] [address] Rojas Cunningham MD Medical Release 06/02/[address] [facility] [address] [facility] [address] [place] [address] Rojas Cunningham MD Results 06/02/[address] [address] Rojas Cunningham MD Other (I-123 ) 05/29/2016 1:35 PM EDT - 05/29/2016 11:59 PM EDT Hospital Encounter [address] [place] [phone] Diabetes mellitus type 2, uncontrolled (HCC); Vitamin D deficiency; Postablative hypothyroidism; History of thyroid cancer Discharge Disposition: Home or Self Care 05/29/2016 12:10 PM EDT Office Visit [address] [place] [address] Rojas Cunningham MD Diabetes mellitus type 2, uncontrolled (HCC) (Primary Dx); Postablative hypothyroidism; History of thyroid cancer; Vitamin D deficiency 05/03/[address] [place] [address] [address] Rojas Cunningham MD Cancellation 02/03/2016 Telephone [place] [address] [place] [address] Rojas Cunningham MD Other (paperwork for test strips) 01/19/[address] [address] Rojas Cunningham MD Medication Refill 01/19/2016 10:40 AM EDT Office Visit [address] [address] Rojas Cunningham MD Diabetes mellitus type 2, uncontrolled (HCC) (Primary Dx); Primary hypothyroidism; Vitamin D deficiency 01/10/2016 Telephone [place] [address] [place] [address] Rojas Cunningham MD Labs Only 01/06/[address] [facility] [address] [place] [address] Rojas Cunningham MD Medication Refill 01/04/[address] [facility] [address] [place] [address] Rojas Cunningham MD Procedure 12/15/[address] [facility] [address] [place] [address] Rojas Cunningham MD Other 12/10/[address] [facility] [address] [place] [address] Rojas Cunningham MD Cancellation 11/04/[address] [facility] [address] [place] [address] Octavio, Rojas Mallory MD Other (approval for [employer] [facility]) 09/16/[address] [facility] [address] [place] [address] Rojas Cunningham MD Lab Orders 09/16/[address] [facility] [address] [place] [address] Rojas Cunningham MD Medication Refill 09/16/[address] [facility] [address] [place] [address] Rojas Cunningham MD Medication Refill 08/26/[address] [facility] [address] [place] [address] Rojas Cunningham MD Reschedule 07/15/[address] [facility] [address] [place] [address] Rojas Cunningham MD Medication Management 06/22/2015 2:50 PM EDT Office Visit [facility] [address] [place] [address] Rojas Cunningham MD Diabetes mellitus type 2, uncontrolled (HCC) (Primary Dx); Mixed dyslipidemia; Vitamin D deficiency 06/15/2015 Telephone [place] [address] [place] [address] Rojas Cunningham MD Labs Only 05/12/[address] [facility] [address] [place] [address] Rojas Cunningham MD Reschedule; Labs Only 04/14/2015 Refill [place] [address] [place] [address] Rojas Cunningham MD Medication Refill 02/09/[address] [place] [address] Rojas Cunningham MD Other (questions re:scripts) 02/09/2015 1:40 PM EDT Office Visit [facility] [address] [place] [address] Rojas Cunningham MD Diabetes mellitus type 2, uncontrolled (HCC) (Primary Dx); Mixed dyslipidemia; Thyroid nodule; Vitamin D deficiency; Statin intolerance 02/08/[address] [facility] [address] [place] [address] Rojas Cunningham MD Labs Only 02/02/[address] [facility] [address] [place] [address] Rojas Cunningham MD Lab Orders 02/01/[address] [facility] [address] [place] [address] Rojas Cunningham MD Labs Only 01/15/[address] [facility] [address] [place] [phone] Rojas Cunningham MD Reschedule 12/11/[address] [facility] [address] [place] [address] Rojas Cunningham MD Medication Refill 11/09/2014 Telephone [place] [address] [place] [address] Rojas Cunningham MD Glucose Monitoring (BG logs) 11/03/2014 Telephone [place] [address] [place] [phone] Rojas Cunningham MD Medication Management 10/26/2014 Telephone [place] [address] [place] [address] Rojas Cunningham MD Results 10/20/2014 1:20 PM EST Office Visit [facility] [address] [place] [address] Rojas Cunningham MD Diabetes mellitus type 2, uncontrolled (HCC) (Primary Dx); Mixed dyslipidemia; Thyroid nodule; Vitamin D deficiency 10/15/[address] [facility] [address] [place] [address] Rojas Cunningham MD Labs Only 10/13/[address] [facility] [address] [place] [address] Rojas Cunningham MD Lab Orders 10/09/[address] [facility] [address] [place] [address] Rojas Cunningham MD Labs Only 07/24/[address] [facility] [address] [place] [address] Rojas Cunningham MD Medication Management (U500 - resume) 07/16/[address] [facility] [address] [place] [address] Rojas Cunningham MD Medication Management 06/18/[address] [facility] [address] [place] [address] Juanita Sims, RD,LD,CDE Diabetes (I pro interpretation U 500 Vgo 20) 06/11/[address] [facility] [address] [employer] [address] [place] [address] Shannan Wolfe, RN,CDE Other (scalp lesions) 06/11/2014 2:40 PM EDT Office Visit [place] [address] [employer] [address] [place] [address] Rojas Cunningham MD Diabetes mellitus type 2, uncontrolled (HCC) (Primary Dx); Mixed dyslipidemia; Vitamin D deficiency 06/04/[address] [facility] [address] [place] [address] Rojas Cunningham MD Medication Refill 05/29/[address] [facility] [address] [place] [address] Rojas Cunningham MD Other (Pt.Asst/Senia) 05/13/[address] [facility] [address] [facility] [address] [place] [phone] Rojas Cunningham MD Glucose Monitoring 04/22/[address] [facility] [address] [facility] [address] [place] [phone] Rojas Cunningham MD Other (Vgo/U500) 04/13/[address] [facility] [address] [place] [address] Rojas Cunningham MD Medication Management (Krys Cares form) 04/07/[address] [facility] [address] [facility] [address] [place] [address] Shannan Keita, FREDDY,CDE Other 03/27/[address] [facility] [address] [place] [address] Rojas Cunningham MD Medication Refill 03/19/2014 1:30 PM EDT Office Visit [facility] [address] [address] Boris May MD Diabetes mellitus type 2, uncontrolled (HCC) (Primary Dx); Myopic astigmatism, bilateral; Presbyopia OU; Dry eyes, bilateral 03/17/2014 3:00 PM EDT Office Visit [facility] [address] [address] Chris Serra MD Mixed dyslipidemia (Primary Dx); Hypertension; Chest pain 03/16/[address] [facility] [address] [facility] [address] [place] [phone] Rojas Cunningham MD Medication Management 03/12/[address] [facility] [address] [facility] [address] [place] [phone] Rojas Cunningham MD Results 03/10/2014 12:00 PM EDT Office Visit [facility] [place] [address] [place] [address] Rojas Cunningham MD Diabetes mellitus type 2, uncontrolled (HCC) (Primary Dx); Mixed dyslipidemia; Thyroid nodule; Vitamin D deficiency 03/05/[address] [facility] [address] [place] [address] Shannan Wolfe, RN,CDE Diabetes; Glucose Monitoring 03/04/[address] [facility] [address] [place] [address] Rojas Cunningham MD Other ([facility] lab orders) 03/04/2014 Telephone [facility] [place] [address] [place] [phone] Selma Kruger, BEST,CDE Diabetes (question) 03/03/2014 Telephone [facility] [place] [address] [place] [address] Rojas Cunningham MD Other (calling in BS) 02/16/2014 Telephone [facility] [place] [address] [place] [address] Rojas Cunningham MD Labs Only 02/11/2014 Telephone [facility] [place] [address] [place] [address] Rojas Cunningham MD Medication Management 02/10/[address] [facility] [address] [place] [address] Priscilla Patel, BEST,CDE Insulin Titration (U500 start) 02/10/2014 11:20 AM EDT Office Visit [facility] [address] [place] [address] Rojas Cunningham MD Diabetes mellitus type 2, uncontrolled (HCC) (Primary Dx); Mixed dyslipidemia; Thyroid nodule; Vitamin D deficiency 01/30/2014 3:35 PM EDT - 01/30/2014 11:59 PM EDT Hospital Encounter [facility] [address] [place] [address] Vitamin D deficiency (Primary Dx); Diabetes mellitus type 2, uncontrolled (HCC); Thyroid nodule; Mixed dyslipidemia Discharge Disposition: Home or Self Care 01/30/[address] [facility] [address] [place] [address] Rojas Cunningham MD Samples (Levemir/Novolog) 01/28/2014 Telephone [place] [address] Rojas Cunningham MD Reschedule 12/26/[address] [facility] [address] [address] Rojas Cunningham MD Medication Management 12/25/2013 Telephone [place] [address] [address] Rojas Cunningham MD Glucose Monitoring (download meter) 12/25/[address] [facility] [address] [address] Rojas Cunningham MD Samples (Levemir/Novolog) 12/16/[address] [facility] [address] [phone] Rojas Cunningham MD Medication Management 12/11/2013 Refill [facility] [address] [address] Chris Serra MD Medication Refill 12/11/2013 Telephone [facility] [address] [phone] Chris Serra MD No Show 11/21/[address] [facility] [address] [facility] [address] [place] [address] Rojas Cunningham MD Glucose Monitoring 11/19/[address] [facility] [address] [facility] [address] [place] [phone] Rojas Cunningham MD Medication Management 11/03/[address] [facility] [address] [place] [address] Rojsa Cunningham MD Medication Refill 10/31/[address] [facility] [address] [place] [phone] Rojas Cunningham MD Reschedule 10/07/2013 11:20 AM EST Office Visit [facility] [address] [place] [address] Rojas Cunningham MD Diabetes mellitus type 2, uncontrolled (HCC) (Primary Dx); Mixed dyslipidemia; Vitamin D deficiency; Thyroid nodule 09/29/2013 12:25 PM EST - 09/29/2013 11:59 PM EST Hospital Encounter [facility] [address] [place] [phone] Hyperlipidemia (Primary Dx); Diabetes mellitus type 2, uncontrolled (HCC); Thyroid nodule; Hypovitaminosis D Discharge Disposition: Home or Self Care 09/29/2013 Telephone [facility] [address] [place] [address] Rojas Cunningham MD Other (downloaded meter) 09/23/2013 Orders Only [facility] [address] [place] [address] Annie Han RN Diabetes mellitus type 2, uncontrolled (HCC) (Primary Dx) 09/23/2013 Telephone [facility] [address] [place] [address] Rojas Cunningham MD Medication Refill (URGENT) 09/08/2013 Telephone [facility] [address] [place] [address] Rojas Cunningham MD Other (blood sugar logs) 08/20/2013 Telephone [facility] [address] [place] [address] Rojas Cunningham MD Results 08/14/2013 12:25 PM EST - 08/14/2013 11:59 PM EST Hospital Encounter [facility] [address] [place] [address] Diabetes mellitus type 2, uncontrolled (HCC) (Primary Dx); Vitamin D deficiency; Mixed hyperlipidemia Discharge Disposition: Home or Self Care 08/14/2013 11:40 AM EST Office Visit [facility] [address] [place] [address] Rojas Cunningham MD Diabetes mellitus type 2, uncontrolled (HCC) (Primary Dx); Mixed hyperlipidemia; Vitamin D deficiency 08/11/2013 Telephone [facility] [address] [place] [phone] Rojas Cunningham MD Labs Only 08/06/2013 Refill [facility] [address] [address] Chris Serra MD Medication Refill 07/16/2013 Refill [facility] [address] [place] [address] Rojas Cunningham MD Medication Refill 07/15/2013 Refill [facility] [address] [place] [address] Rojas Cunningham MD Medication Refill 07/15/2013 Refill [facility] [place] [address] [place] [address] Joe Ambrosio MD Medication Refill 07/08/2013 Abstract [facility] [address] [place] [address] [place] [address] Emerald Amato MA 07/02/2013 5:00 PM EDT Office Visit [facility] [place] [facility] [address] [place] [address] [place] [address] Boris Sarmiento MD Leg cramps (Primary Dx) 07/02/2013 12:50 PM EDT Office Visit [place] [address] [place] [address] Rojas Cunningham MD Diabetes mellitus type 2, uncontrolled (HCC) (Primary Dx); Vitamin d deficiency; Mixed hyperlipidemia 07/01/2013 Telephone [place] [address] [place] [address] Rojas Cunningham MD Follow-up 06/23/2013 2:40 PM EDT - 06/25/2013 2:37 PM EDT Hospital Encounter [facility] [place] [address] Boris Rodriguez MD Pilger, Jeffrey M, MD Upadhayay, Niraj, MD Hypertensive urgency (Primary Dx); Chest pain; Paresthesia; Sleep apnea; Diabetes mellitus type 2, uncontrolled (HCC); Facial droop; Fibromyalgia; Hyperlipidemia; Angina at rest; Hypertension; Unspecified essential hypertension; Chest pain, unspecified; Disturbance of skin sensation Discharge Disposition: Home or Self Care 06/23/2013 Telephone [facility] [address] [address] Chris Serra MD Edema; Pain (neck/shoulder) 06/10/2013 9:15 AM EDT Office Visit [facility] [address] [address] Chris Serra MD Hyperlipidemia (Primary Dx); Hypertension; CHF (congestive heart failure) (HCC); Chest pain; Left sided numbness; Other screening mammogram 04/17/2013 11:30 AM EDT - 04/17/2013 11:59 PM EDT Hospital Encounter [facility] [address] [place] [address] Emre Houston MD Sleep apnea (Primary Dx); Fibromyalgia; Hyperlipidemia; Diabetes mellitus type 2, uncontrolled (HCC); Hypertension; Obesity; Chest pain; Left sided numbness; CHF (congestive heart failure) ([facility]) Discharge Disposition: Home or Self Care 04/16/2013 Telephone [facility] [place] [address] [place] [address] Asha Ambrocio MA Other 03/28/2013 11:20 AM EDT Office Visit [facility] [place] [address] [place] [address] Boris Sarmiento MD Abscess of groin, left (Primary Dx) 02/18/2013 Refill [facility] [place] [phone] Chris Serra MD Medication Refill 02/18/2013 Refill [facility] [place] [address] Lonnie Dotson MD Medication Refill 02/06/2013 9:20 AM EDT Office Visit [facility] [place] [address] [place] [address] Boris Sarmiento MD Sore throat (Primary Dx); Cervical lymphadenopathy; Viral gastroenteritis 01/22/2013 1:15 PM EDT Office Visit [facility] [address] [address] Chris Serra MD Hypertension (Primary Dx); CHF (congestive heart failure) ([facility]); Hyperlipidemia; Fibromyalgia; Chest pain 01/14/2013 Telephone [facility] [place] [address] [place] [address] Boris Sarmiento MD Visit Follow Up 01/10/2013 11:10 AM EDT Office Visit [facility] [address] [facility] [address] [place] [phone] Boris aSrmiento MD Diabetes mellitus type 2, uncontrolled (HCC) (Primary Dx); Hypertension; Hyperlipidemia; CHF (congestive heart failure) (HCC); Headache 01/01/2013 6:05 PM EDT - 01/05/2013 1:55 PM EDT Hospital Encounter [facility] [place] [phone] Boris Rivas MD Connelly, Kevin D, MD [...] AM EDT Surgery Chris Serra MD CARDIAC PROCEDURE-PEDIATRIC ALLERGIST ONLY 12/11/2012 Telephone [place] [address] [place] [address] Rojas Cunningham MD Labs Only 11/14/2012 Telephone [place] [address] [place] [address] Rojas Cunningham MD Wound Infection 09/25/2012 Telephone [place] [address] [place] [address] Rojas Cunningham MD Other (report blood sugar) 09/24/2012 9:00 AM EST - 09/24/2012 11:59 PM EST Hospital Encounter [facility] Sleep Disorder [address] [place] [address] Emre Houston MD Sleep apnea (Primary Dx); Fibromyalgia; Hyperlipidemia; Diabetes mellitus type 2, uncontrolled (HCC); Hypertension; Obesity Discharge Disposition: Home or Self Care 09/13/2012 Telephone [place] [address],CDE Other (bs logs) 09/06/2012 Telephone [place] [address] [place] [address],LD,CDE Diabetes (U 500) 08/26/2012 Telephone [place] [address] [place] [address] Rojas Cunningham MD Medication Problem 08/13/2012 Telephone [place] [address] Rojas Cunningham MD Medication Management 08/12/2012 Telephone [place] [address] Willa Genao, RN,CDE Medication Management 08/12/2012 Telephone [place] [address] Willa Genao, RN,CDE Medication Management 08/12/2012 11:00 AM EST Office Visit [place] [address] [place] [address] Rojas Cunningham MD Diabetes mellitus type 2, uncontrolled (HCC) (Primary Dx); Vitamin d deficiency; Hyperlipidemia; Thyroid nodule 08/09/2012 1:40 PM EDT - 08/09/2012 11:59 PM EDT Hospital Encounter [facility] [address] [facility] [place] [phone] Diabetes mellitus type 2, uncontrolled (HCC); Hyperlipidemia; Vitamin d deficiency Discharge Disposition: Home or Self Care 08/06/2012 Telephone [place] [address] [place] [address] Rojas Cunningham MD Labs Only 07/31/2012 Telephone [place] [address] [place] [address],LD,CDE Diabetes (blood sugar logs) 07/23/2012 Telephone [facility] Diabetes [place] [address] [place] [address] Shannan Wolfe RN,CDE Other 07/15/2012 7:10 PM EDT - 07/15/2012 10:48 PM EDT Emergency [facility] [address] Billie Bueno MD Abdominal pain, other specified site; Vomiting alone; Unspecified essential hypertension; Type II or unspecified type diabetes mellitus without mention of complication, not stated as uncontrolled (HCC) Discharge Disposition: Home or Self Care 06/25/2012 Telephone [place] [address] [place] [address] Shannan Wolfe RN,CDE Diabetes 06/25/2012 9:45 AM EDT - 06/25/2012 11:59 PM EDT Hospital Encounter [facility] Sleep Disorder [address] [place] [phone] Emre Houston MD Sleep apnea (Primary Dx); Fibromyalgia; Hyperlipidemia; Diabetes mellitus type 2, uncontrolled (HCC); Hypertension; Obesity Discharge Disposition: Home or Self Care 06/16/2012 11:47 AM EDT - 06/16/2012 12:21 PM EDT Emergency [facility] [address] [place] [address] Sadi Joe MD Plantar fasciitis; Peripheral neuropathy Discharge Disposition: Home or Self Care 06/05/2012 Telephone [facility] [address] [place] [address] Rojas Cunningham MD Other (error) 06/04/2012 Telephone [facility] [address] [place] [address] Willa Genao RN,CDE Blood Sugar Problem 05/30/2012 Telephone [facility] [address] [place] [address] Shannan Wolfe, RN,CDE Blood Sugar Problem 05/22/2012 Telephone [facility] Diabetes [place] [address] [place] [address] Willa Genao, RN,CDE Other (Order new test strips) 05/22/2012 Telephone [facility] Diabetes [place] [address] [place] [address] Willa Genao, RN,CDE Medication Management 05/01/2012 Telephone [facility] [address] [place] [address] Rojas Cunningham MD Results 04/28/2012 7:00 PM EDT - 04/28/2012 11:59 PM EDT Hospital Encounter [facility] Sleep Disorder [address] [place] [address] Obstructive sleep apnea (Primary Dx) Discharge Disposition: Home or Self Care 04/25/2012 12:32 PM EDT - 04/25/2012 11:59 PM EDT Hospital Encounter [facility] [place] [address] Tristan Ron MD Dysphagia Discharge Disposition: Home or Self Care 04/23/2012 9:14 AM EDT - 04/23/2012 11:59 PM EDT Hospital Encounter [facility] Sleep Disorder [address] [address] Emre Houston MD Sleep apnea (Primary Dx); Obesity; Fibromyalgia; Diabetes mellitus type 2, uncontrolled (HCC); Hypertension; Poor sleep hygiene Discharge Disposition: Home or Self Care 04/18/2012 Telephone [facility] Neurology [facility] [address] [place] [address] Aimee Noel RMA Results 04/15/2012 9:00 AM EDT - 04/15/2012 11:59 PM EDT Hospital Encounter [facility] [address] [place] [address] Tristan Ron MD Thyroid mass Discharge Disposition: Home or Self Care 04/10/2012 7:00 PM EDT - 04/10/2012 11:59 PM EDT Hospital Encounter [facility] Sleep Disorder [address] [place] [address] Obstructive sleep apnea (Primary Dx) Discharge Disposition: Home or Self Care 04/09/2012 Telephone [facility] [address] [place] [address] Tiffany England [facility] Medication Management 04/09/2012 9:45 AM EDT - 04/09/2012 11:59 PM EDT Hospital Encounter [facility] Sleep Disorder [address] [place] [address] Emre Houston MD Discharge Disposition: Home or Self Care 04/08/2012 8:37 AM EDT - 04/08/2012 11:59 PM EDT Hospital Encounter [facility] [address] [place] [address] Joe Ambrosio MD Dysarthria; Facial weakness Discharge Disposition: Home or Self Care 04/03/2012 10:35 AM EDT - 04/03/2012 11:59 PM EDT Hospital Encounter [facility] [address] [place] [address] Diabetes mellitus type 2, uncontrolled (HCC); Vitamin D deficiency; FHx: early coronary artery disease; Thyroid nodule Discharge Disposition: Home or Self Care 04/03/2012 9:40 AM EDT Office Visit [facility] [address] [place] [address] Rojas Cunningham MD Diabetes mellitus type 2, uncontrolled (HCC) (Primary Dx); Thyroid nodule; Vitamin D deficiency; FHx: early coronary artery disease 04/02/2012 10:50 AM EDT - 04/02/2012 11:59 PM EDT Hospital Encounter [facility] [address] [place] [id number] Diabetes mellitus type 2, uncontrolled (HCC); Hyperlipidemia; Hypertension; Obesity; Thyroid nodule Discharge Disposition: Home or Self Care 04/01/2012 Telephone [facility] [address] [place] [address] Joe Ambrosio MD Medication Change 04/01/2012 Telephone [facility] [address] [place] [address] Rojas Cunningham MD Labs Only 04/01/2012 11:00 AM EDT Office Visit [facility] Neurology [facility] [address] [place] [address] Joe Ambrosio MD Migraine; Obesity; Fibromyalgia; Hypertension; Diabetes mellitus type 2, uncontrolled (HCC); Hyperlipidemia; Sleep apnea; Dysarthria; Facial weakness 02/29/2012 Telephone [place] [address] [place] [address] Ara Howell APRN Medication Management (?refill for Bentyl?) 02/19/2012 2:32 PM EDT - 02/19/2012 5:35 PM EDT Emergency [facility] [place] [id number] Kyle Cortez MD Gastroenteritis Discharge Disposition: Home or Self Care 02/13/2012 11:12 AM EDT - 02/13/2012 11:59 PM EDT Hospital Encounter [facility] [address] [place] [address] Georgette Isbell Demyelinating disease of central nervous system, unspecified (HCC) Discharge Disposition: Home or Self Care 02/01/2012 1:15 PM EDT - 02/01/2012 11:59 PM EDT Hospital Encounter [facility] [address] [place] [id number] Arely Karimi MD Sarcoidosis Discharge Disposition: Home or Self Care 01/31/2012 Telephone [facility] Diabetes [facility] [address] [place] [address] Armando Chaves MD Release of Information 01/24/2012 1:00 PM EDT Office Visit [facility] [address] [place] [address] Juanita Schuster, RD,LD,CDE Diabetes mellitus type 2, uncontrolled (HCC) (Primary Dx) 01/11/2012 Telephone [facility] [address] [place] [address] Armando Chaves MD Results 01/11/2012 1:30 PM EDT Office Visit [facility] [address] [place] [address] Michela Morton, RN,CDE Diabetes mellitus type 2, uncontrolled (HCC); Hyperlipidemia; Hypertension; Obesity; Thyroid nodule 01/05/2012 Telephone [facility] [address] [place] [address] Armando Chaves MD Medication Refill 01/05/2012 Telephone [facility] [address] [place] [address] Ara Howell APRN Results 01/04/2012 11:05 AM EDT - 01/04/2012 11:59 PM EDT Hospital Encounter [facility] [address] [place] [address] Diabetes mellitus type 2, uncontrolled (HCC); Hyperlipidemia; Hypertension; Obesity; Hot flashes Discharge Disposition: Home or Self Care 12/29/2011 Telephone [facility] [address] [place] [address] Tanvi Guy Referral (Diabetes Education) 12/28/2011 3:10 PM EDT Office Visit [facility] [address] [place] [address] Ara Howell, ELECTRIC INSTALLER Diabetes mellitus type 2, uncontrolled (HCC); Hyperlipidemia; Hypertension; Obesity; Thyroid nodule 12/26/2011 Telephone [facility] [address] [place] [address] Armando Chaves MD Labs Only 11/22/2011 9:55 AM EST - 11/22/2011 11:59 PM EST Hospital Encounter [place] [facility] [place] [address] Ge[address] Isbell Chest pain, unspecified Discharge Disposition: Home or Self Care 11/09/2011 10:14 PM EST - 11/10/2011 2:20 AM EST Emergency [facility] [address] [place] [phone] Cal Pate MD Abdominal pain Discharge Disposition: Home or Self Care 11/02/2011 Telephone [facility] [place] [address] [place] [address] Harper Mcgrath MD Follow-up 09/15/2011 7:30 AM EST - 09/15/2011 11:59 PM EST Hospital Encounter [facility] Therapy [address] [place] [address] Emerald Yan, DUSTY CHT Discharge Disposition: Home or Self Care 09/11/2011 Telephone [facility] Diabetes [place] [address] [place] [address] Michela Morton, RN,CDE Other (log) 08/25/2011 1:00 PM EST - 08/25/2011 11:59 PM EST Hospital Encounter [place] [facility] [place] [address] Tristan Ron MD Thyroid mass Discharge Disposition: Home or Self Care 08/24/2011 Telephone [place] [address] [place] [address] Michela Morton, RN,CDE Other (log) 08/18/2011 8:40 AM EST Office Visit [facility] [address] [place] [address] Harper Mcgrath MD Diabetes mellitus type 2, uncontrolled (HCC) (Primary Dx); Hyperlipidemia; Hypertension; Obesity; Hot flashes 08/16/2011 1:45 PM EST - 08/16/2011 11:59 PM EST Hospital Encounter [facility] [address] [place] [address] Tristan Ron MD Thyroid mass Discharge Disposition: Home or Self Care 07/25/2011 1:30 PM EDT Office Visit [place] [address] [place] [address] Michela Morton, BEST,CDE Diabetes mellitus type 2, uncontrolled (HCC) 07/18/2011 1:30 PM EDT Office Visit [facility] [address] [place] [address] Michela Morton RN,CDE Diabetes mellitus type 2, uncontrolled (HCC) (Primary Dx) 07/11/2011 1:30 PM EDT Office Visit [facility] [address] [place] [address],LD,CDE Diabetes mellitus type 2, uncontrolled (HCC) (Primary Dx) 07/06/2011 8:45 AM EDT - 07/06/2011 9:00 AM EDT Surgery [place] [address] [address] Edyta Chun MD CARPAL TUNNEL RELEASE 07/06/2011 5:45 AM EDT - 07/06/2011 9:05 AM EDT Hospital Encounter [place] [address] [address] Edyta Chun MD Discharge Disposition: Home or Self Care 06/27/2011 Telephone [place] [address] [place] [address] Rachael Carvalho RN Blood Sugar Problem 06/27/2011 10:10 AM EDT Office Visit [facility] [address] [place] [address],CDE Diabetes mellitus type 2, uncontrolled (HCC) 06/14/2011 10:45 AM EDT - 06/14/2011 11:59 PM EDT Hospital Encounter [facility] [place] [address] Hyperlipidemia; Hypertension; Hot flashes; Diabetes mellitus type 2, uncontrolled (HCC) Discharge Disposition: Home or Self Care 05/31/2011 9:00 AM EDT Office Visit [facility] [place] [address] Harper Mcgrath MD Diabetes mellitus type 2, uncontrolled (HCC) (Primary Dx); Hot flashes; Hyperlipidemia; Hypertension; Obesity 05/25/2011 3:11 PM EDT - 05/25/2011 11:59 PM EDT Hospital Encounter [facility] [address] [place] [address] Mendel Resendiz DO Carpal tunnel syndrome Discharge Disposition: Home or Self Care 05/25/2011 1:55 PM EDT - 05/25/2011 3:10 PM EDT Hospital Encounter [facility] [address] [place] [address] Mendel Resendiz DO Disturbance of skin sensation; Blurred vision; Urinary incontinence Discharge Disposition: Home or Self Care 05/11/2011 1:46 PM EDT - 05/11/2011 11:59 PM EDT Hospital Encounter [facility] [address] [place] [address] Wiley Garza MD Stone Discharge Disposition: Home or Self Care 05/11/2011 1:45 PM EDT Hospital Encounter [place] [facility] [address] [place] [address] Wiley Garza MD Back pain; History of kidney stones; Flank pain Discharge Disposition: Home or Self Care 12/27/2010 1:45 PM EDT - 12/27/2010 2:40 PM EDT Surgery [facility] [address] [place] [address] Wiley Garza MD CYSTOSCOPY BLADDER /URETHRA BIOPSY 12/27/2010 11:49 AM EDT - 12/27/2010 4:57 PM EDT Hospital Encounter [facility] SAME DAY SURGERY [address] [place] [address] Wiley Garza MD Discharge Disposition: Home or Self Care 12/23/2010 10:00 AM EDT - 12/23/2010 11:59 PM EDT Hospital Encounter [facility] PRE-ADMIT TESTING [address] [place] [address] Pat, [facility] Discharge Disposition: Home or Self Care 11/29/2010 9:11 AM EST - 11/29/2010 11:59 PM EST Hospital Encounter [facility] [address] [place] [facility] Mendel Resendiz DO Pyelonephritis, unspecified; Abdominal pain, unspecified site; Abdominal pain, right upper quadrant; Other abnormal blood chemistry Discharge Disposition: Home or Self Care 11/25/2010 12:37 AM EST - 11/25/2010 3:54 AM EST Emergency [facility] [address] [place] [address] Mahesh Page MD Pyelonephritis; Elevated liver function tests; Abdominal pain, right upper quadrant; Right flank pain Discharge Disposition: Home or Self Care 11/11/2010 2:30 PM EST - 11/11/2010 11:59 PM EST Hospital Encounter [facility] [address] [place] [address] Wiley Garza MD Pain Discharge Disposition: Home or Self Care 07/18/2010 2:43 PM EDT - 07/19/2010 6:44 PM EDT Hospital Encounter [facility] [address] [place] [address] Mahesh Page MD Laib, Emily A, MD Chest pain; Hyperglycemia; Dyspnea Discharge Disposition: Home or Self Care 11/05/2009 - 11/05/2009 11:59 PM EST Hospital Encounter [facility] Discharge Disposition: Home or Self Care 10/20/2009 7:08 AM EST - 10/20/2009 9:55 AM EST Hospital Encounter [facility] Lisandro Joyner MD 10/11/2009 8:08 AM EST - 10/11/2009 3:00 PM EST Hospital Encounter [facility] Wiley Chadwick MD 09/08/2009 5:29 PM EST - 09/09/2009 6:30 PM EST Hospital Encounter [facility] W4SE [facility] Edyta Bello MD Hollis, Robert E., MD 08/30/2009 6:00 AM EST - 08/30/2009 11:30 AM EST Hospital Encounter [facility] WSDS [facility] Mahesh Hernandez 08/01/2009 1:50 PM EDT - 08/01/2009 4:09 [...] Hospital Encounter [facility] EPIC CON UNK EDG Scottie Adams MD 09/18/1994 12:35 AM EST - 09/19/1994 7:27 PM EST [facility] 09[facility]15/1994 12:33 PM EST - 09/15/1994 11:59 PM EST Hospital Encounter [facility] 08/30/1994 10:59 AM EST - 08/30/1994 4:50 PM EST Hospital Encounter [facility] Griselda Clements MD 08/11/1994 5:37 AM EST - 08/11/1994 11:59 PM EST Hospital Encounter [facility] EPIC CON UNK EDG Griselda Herrera MD 07/25/1994 5:52 AM EDT - 07/25/1994 11:59 PM EDT Hospital Encounter [facility] 05/09/1994 10:12 PM EDT - 05/09/1994 11:59 PM EDT Emergency [facility] EPIC CON UNK EDG Chris Marc DO 10/04/1993 9:18 AM EST - 10/04/1993 6:20 PM EST Hospital Encounter [facility] Santana Albrecht 09/06/1993 12:44 PM EST - 09/06/1993 11:59 [...] Active L GASSERI/B BIFIDUM/B LONGUM ([facility] ORAL) Take by mouth. Ac tive Eflornithine [...] 18 Active fluticasone (FLONASE) 50 mcg/actuation Nasl [place], Suspension 06/25/20 18 Active EPINEPHrine (EPIPEN) 0.3 mg/0.3 mL Inj Auto-Injector 04/02/20 18 Active UNABLE TO FIND Med Name: Hemp Active UNABLE TO FIND Med Name: thermofight X keto Active 21/iron fu/folic acid ( COMPLETE ORAL) Take by mouth. Activ e cyclobenzaprine (FLEXERIL) 10 mg Oral Tablet 07/13/20 Active meloxicam (MOBIC) 15 mg Oral Tablet Take 15 mg by mouth daily. 09/13/20 20 Active divalproex (DEPAKOTE) 250 mg Oral Tablet, Delayed Release (E.C.) TAKE 1 TABLET BY MOUTH TWICE DAILY FOR ONE (1) WEEK THEN TWO (2) TABLETS TWICE DAILY THEREAFTER 10/18/19 Active Lancing Device [facility] MiscIndications:Dy slipidemia associated with type 2 diabetes mellitus (HCC) 1 Each by Misc.(Non-Drug; Combo Route) route 3 times daily. 1 Each 02/04/20 Active Additional Information Patient not taking.Reason: [...] TWO (2) TABS IN 24 HRS 11/16/19 22 Active tiZANidine (ZANAFLEX) 4 mg Oral Tablet TAKE ONE (1) TABLET(S) EVERY SIX (6) HOURS BY ORAL ROUTE. 11/16/19 22 Active metoprolol succinate (TOPROL-XL) 25 mg Oral Tablet Sustained Release 24 hr 50 mg daily. 11/23/19 22 Active azelastine HCl (AZELASTINE NASL) by Nasal route. Active losartan (COZAAR) 50 mg Oral Tablet Take 50 mg by mouth 2 times daily. 11/16/19 22 Active fluticasone propionate (XHANCE NASL) by Nasal route. Acti ve ONETOUCH DELICA PLUS LANCET 33 gauge [facility] MiscIndications:Dy slipidemia associated with type 2 diabetes mellitus (HCC) 1 Each by Misc.(Non-Drug; Combo Route) route 4 times daily. 150 Each 02/16/20 Active Insulin Schlater, Disposable, (SAMMIE PEN NEEDLE) 32 gauge x [facility] NeedleIndications: Dyslipidemia associated with type 2 diabetes mellitus ([facility]) Use as directed to inject insulins 4 times daily 120 Each 05/09/20 Active ONETOUCH VERIO TEST STRIPS [facility] StripIndications:D yslipidemia associated with type 2 diabetes mellitus ([facility]) USE ONE STRIP TO TEST FOUR TIMES A DAY 150 Strip 5 06/19/20 Active levocetirizine (XYZAL) 5 mg Oral Tablet 09/27/20 Active FLOVENT HFA 44 mcg/actuation Inhl HFA Aerosol Inhaler 09/27/20 Active ketotifen (ZADITOR) 0.025 % (0.035 %) [...] hyperglycemia, with long-term current use of insulin ([facility]) Subcutaneous (Inject under the skin) 0.5 mL once a week. 2 mL 5 09/05/20 23 Active glimepiride (AMARYL) 4 mg Oral TabletIndications: Type 2 diabetes mellitus with hyperglycemia, with long-term current use of insulin ([facility]) Take 1 Tablet by mouth every [...] Take 100 mg by mouth nightly. 08/20/20 24 Active Blood-Glucose Sensor (DEXCOM G7 SENSOR) [facility] [...] Completion thyroidectomy afterwards with microscopic PTC found 2016-07-14I131 as 31.7 mCi PO 2016-07-18-Post treatment WBS. Statin intolerance 10/25/2014 Overview (10/25/2014): Followed by Endocrinology. Mixed dyslipidemia 10/07/2013 Overview (10/31/2019): Managed by Endocrinology. [place] Score of 4 Has Fhx od premature [...] Me Social History Smoking Status as of 06/22/2025 Tobacco Use Types Packs/Day Years Used Date [...] Description 07/09/2025 11:40 AM EDT [facility] [place] [address] [facility] [address] [place] [address] Rojas Cunningham MD [address] [facility] [address] [place] [address] Procedures Procedure Name Priority Date/Time Associated Diagnosis Comments HM DIABETES EYE EXAM Routine 02/17/2025 11:45 AM [...] insulin (HCC) Vitamin D deficiency Mixed dyslipidemia APOLIPOPROTEIN B-REF LAB Routine 01/08/2019 Uncontrolled type 2 diabetes mellitus with complication, with long-term current use of insulin (HCC) Vitamin D deficiency Mixed dyslipidemia C-REACTIVE PROTEIN Routine 01/08/2019 Uncontrolled type 2 diabetes mellitus with complication, with long-term current use of insulin (HCC) Vitamin D deficiency Mixed dyslipidemia COMPREHENSIVE METABOLIC PANEL Routine 01/08/2019 Uncontrolled type 2 diabetes mellitus with complication, with long-term current use of insulin (HCC) Vitamin D deficiency Mixed dyslipidemia FRUCTOSAMINE -REF LAB Routine 01/08/2019 Uncontrolled type 2 diabetes mellitus with complication, with long-term current use of insulin (HCC) Vitamin D deficiency Mixed dyslipidemia HEMOGLOBIN A1C Routine 01/08/2019 Uncontrolled type 2 diabetes mellitus with complication, with long-term current use of insulin (HCC) Vitamin D deficiency Mixed dyslipidemia T4, FREE (THYROXINE) Routine 01/08/2019 Uncontrolled type 2 diabetes mellitus with complication, with long-term current use of insulin (HCC) Vitamin D deficiency Mixed dyslipidemia THYROID STIMULATING HORMONE Routine 01/08/2019 Uncontrolled type 2 diabetes mellitus with complication, with long-term current use of insulin (HCC) Vitamin D deficiency Mixed dyslipidemia SCANNED LABS [...] insulin (HCC) Vitamin D deficiency Mixed dyslipidemia COMPREHENSIVE METABOLIC PANEL Routine 06/12/2018 Uncontrolled type 2 diabetes mellitus with complication, with long-term current use of insulin (HCC) Vitamin D deficiency Mixed dyslipidemia FRUCTOSAMINE -REF LAB Routine 06/12/2018 Uncontrolled type 2 diabetes mellitus with complication, with long-term current use of insulin (HCC) Vitamin D deficiency Mixed dyslipidemia HEMOGLOBIN A1C Routine 06/12/2018 Uncontrolled type 2 diabetes mellitus with complication, with long-term current use of insulin (HCC) Vitamin D deficiency Mixed dyslipidemia URIC ACID Routine 06/12/2018 Uncontrolled type 2 diabetes mellitus with complication, with long-term current use of insulin (HCC) Vitamin D deficiency Mixed dyslipidemia VITAMIN D 25 HYDROXY Routine 06/12/2018 Uncontrolled type 2 diabetes mellitus with complication, with long-term current use of insulin ([facility]) Vitamin D deficiency Mixed dyslipidemia VITAMIN B12 LEVEL Routine 06/12/2018 Uncontrolled type 2 diabetes mellitus with complication, with long-term current use of insulin (HCC) Vitamin D deficiency Mixed dyslipidemia LIPID PANEL REFLEX Routine 06/12/2018 Uncontrolled type 2 diabetes mellitus with complication, with long-term current use of insulin (HCC) Vitamin D deficiency Mixed dyslipidemia APOLIPOPROTEIN B-REF LAB Routine 06/12/2018 Uncontrolled type 2 diabetes mellitus with complication, with long-term current use of insulin (HCC) Vitamin D deficiency Mixed dyslipidemia THYROID STIMULATING [...] note is in progress. ADMISSION: 06/24/2013 PATIENT: nAgeles Pope : 1960 PCP: Boris Sarmiento MD I would like to thank Armando Martin MD for requesting me to see Yang Ibarra Toshia in consultation. HPI: Patient is a 53 [...] CA, DM. Father with CVA,dementia, ASHD s/p [place], HTN and HLD CARD.SURG: none CARD. RISK FACTORS: HTN, DM, ASHD and HLD LHC with FFR on 01/03/13 Following completion of the diagnostic procedure, fractional flow reserveassessment of the mid left anterior descending artery was performed. 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 Chest [...] TUNNEL RELEASE performed by EDYTA CHUN at [facility] Family History Problem Relation Age of [...] 200 Syringe 11 Lancets (ONE TOUCH DELICA) [facility] Please [facility] 1 box of lancets every30 [...] injection 4 mg 4 mg Intravenous Q6H PRNGBoirs hollingsworth MD hydrALAZINE (APRESOLINE) injection 5-10 mg 5-10 mg Intravenous Q3H Boris Rubi MD senna-docusate (SENOKOT-S) 8.6-50 mg per tablet 1 Tab 1 Tab OralNightly PRN Arehart, Abril, ELECTRIC INSTALLER acetaminophen (TYLENOL) tablet 650 mg 650 mg Oral Q4H PRN Arehart,Abril, ELECTRIC INSTALLER Or acetaminophen (TYLENOL) suppository 650 mg 650 mg Rectal Q4H PRNArehart, Abril, ELECTRIC INSTALLER Sodium Chloride 0.9 % Syrg 5 mL 5 mL Intravenous Q8H GUILLERMO Arehart, Abril,ELECTRIC INSTALLER 5 mL at 06/24/13 0515 And Sodium Chloride 0.9 % Syrg 5 mL 5 mL Intravenous PRN Arehart, Abril,ELECTRIC INSTALLER dextrose solution 25 mL 25 mL Intravenous PRN Arehart, Abril, ELECTRIC INSTALLER glucagon (human recombinant) (GLUCAGEN) injection 1 mg 1 mgIntramuscular PRN Arehart, Abril, ELECTRIC INSTALLER insulin aspart (NovoLOG) injection 1-10 Units 1-10 Units SubcutaneousQID WM Arehart, Abril, ELECTRIC INSTALLER 4 Units at 06/24/13 0945 albuterol (PROVENTIL HFA; VENTOLIN HFA) INHALER 2 Puff 2 PuffInhalation Q6H PRN Arehart, Abril, ELECTRIC INSTALLER aspirin tablet 325 mg 325 mg Oral Daily Arehart, Abril, ELECTRIC INSTALLER 325 mg at06/24/13 0945 atorvastatin (LIPITOR) tablet 10 mg 10 mg Oral Nightly Arehart, Abril,ELECTRIC INSTALLER 10 mg at 06/23/13 2245 DULoxetine (CYMBALTA) capsule 60 mg 60 mg Oral BID Arehart, Abril, APRN60 mg at 06/24/13 0945 pantoprazole (PROTONIX) tablet 40 mg 40 mg Oral BID Arehart, Abril, APRN40 mg at 06/24/13 0945 nitroGLYCERIN (NITROSTAT) SL tablet 0.4 mg 0.4 mg Sublingual Q5 Min PRNArehart, Abril, ELECTRIC INSTALLER topiramate (TOPAMAX) tablet 200 mg 200 mg Oral Nightly Arehart, Abril,ELECTRIC INSTALLER topiramate (TOPAMAX) tablet 150 mg 150 mg Oral Daily Abril Bernstein APRN 150 mg at 06/24/13 0945 Allergies Allergen [...] note is in progress. Consult dictated # [id number] Symptoms likely related to migraine. MRI shows no acute CVA. No significant vascular disease on MRA. CUS t summer was (-). Would continue ASA, management of vascular risk factors. OK for dischargewhen otherwise medically stable. Thank you. IP CONSULT TO NEUROLOGY Routine 01/03/2013 6:49 PM EDT Procedure Note - Boris Prince MD - 01/04/2013 4:31 PM EDTThis note is in progress. Consult dictated # [id number] Symptoms likely related to migraine. MRI shows no acute CVA. No significant vascular disease on MRA. CUS fromlast summer was (-). Would continue ASA, management of vascular risk factors. OK for dischargewhen otherwise medically stable. Thank you. POCT ACTIVATED CLOTTING TIME Routine 01/03/2013 9:47 AM EDT PEDIATRIC ALLERGIST PROCEDURE LOG Routine 01/03/2013 9:22 AM EDT CARDIAC PROCEDURE-PEDIATRIC ALLERGIST ONLY 01/03/2013 8:53 AM EDT chest pain [...] 2:58 PM EDTThis note is in progress. [facility] Heart and Vascular Medical [facility] Cardiology Consultation ADMISSION: 01/02/2013 PATIENT: Angeles Pope [id number] PCP: No primary provider on file. I [...] TUNNEL RELEASE performed by EDYTA CHUN at [facility] Allergy Allergies Allergen Reactions Tawnya Inhibitors [...] most recent cardiovascular imaging studies availabe in [facility] EMR werereviewed at time of consultation Assessment: [...] Routine 01/04/2012 11:29 AM EDT VITAMIN D, 38-[id number] Routine 01/04/2012 11:29 AM EDT Diabetes mellitus [...] 12 LEAD STAT 11/09/2011 10:53 PM EST NON-POULTRY BONER CYTOLOGY REPORT Routine 08/25/2011 2:39 PM EST US GUIDED THYROID BIOPSY Routine 08/25/2011 2:03 PM EST Thyroid mass POCT GLUCOSE Routine 08/18/2011 8:53 AM EST Diabetes mellitus type 2, uncontrolled (HCC) Hyperlipidemia Hypertension Obesity Hot flashes US THYROID Routine 08/16/2011 2:14 PM EST Thyroid mass CARPAL TUNNEL RELEASE 07/06/2011 8:44 AM EDT RIGHT CARPAL TUNNEL SYNDROME Special Needs PCP;MARIAELENA RESENDIZ case moved fr 06/29 SCANNED OR REPORT [...] EDT Same as pre-op Special Needs ROSENDA CPT:84986 CYSTOSCOPY BLADDER /URETHRA BIOPSY 12/27/2010 2:16 PM EDT Same as pre-op Special Needs ROSENDA CPT:09153 US ABDOMEN LIMITED Routine 11/29/2010 10:26 AM [...] HEALTH MAINTENANCE Edited Re sult - Final Performing Organization Address City/[facility] Co de Phone Number SEP OFFICE * LIPID PANEL REFLEX (05/06/2024) [...] Comment:100-129 Blood VENOUS BLOOD / Unknown 05/06/2024 Historical Provider CHEMISTRY ORDERABLES Final R esult Performing Organization Address City/[facility] Co de Phone Number SEP OFFICE * VITAMIN D 25 HYDROXY (05/06/2024) Only the most recent of35 resultswithin the time period is included. 25-HYDROXY, VITAMIN D - HISTORICAL 90.0 SEP OFFICE Comment:30-100 Blood VENOUS BLOOD / Unknown 05/06/2024 Historical Provider CHEMISTRY ORDERABLES Final R esult SEP OFFICE * MICROALBUMIN/CREATININE RATIO URINE (05/06/2024) Only the most recent of10 resultswithin the time period is included. Microalb, Ur <6.000 <=31 MG/L SEP OFFICE Comment:0-16.7 Urine URINE SPECIMEN COLLECTION / Unknown 05/06/2024 Historical Provider URINE ORDERABLES Final Resul t Performing Organization Address [facility] Phone Number SEP OFFICE * THYROGLOBULIN -REF LAB (05/06/2024) Only the most recent of3 resultswithin the time period is included. Thyroglobulin <0.1 NG/ML SEP OFFICE Comment:1.5-38.5 Blood VENOUS BLOOD / Unknown 05/06/2024 Historical Provider CHEMISTRY ORDERABLES Edited Result - Final Performing Organization Address [facility] Phone Number SEP OFFICE * THYROGLOBULIN ANTIBODY -REF LAB (05/06/2024) Only the most recent of3 resultswithin the time period is included. Thyroglobulin <1.0 NG/ML SEP OFFICE Comment:0.0-0.90 Blood VENOUS BLOOD / Unknown 05/06/2024 Historical Provider IMMUNOLOGY ORDERABLES Final Result Performing Organization Address [facility] de Phone Number SEP OFFICE * C-REACTIVE PROTEIN (05/06/2024) Only the most recent of33 resultswithin the time period is included. CRP 10 MG/L SEP OFFICE Comment:0-4 Blood VENOUS BLOOD / Unknown 05/06/2024 Historical Provider CHEMISTRY ORDERABLES Final R esult Performing Organization Address [facility] de Phone Number SEP OFFICE * (ABNORMAL) THYROID STIMULATING HORMONE (05/06/2024) Only the most recent of39 resultswithin the time period is included. TSH 17.500(A) 0.400 - 4.500 MCIU/ML SEP OFFICE Comment:0.465-4.68 Blood VENOUS BLOOD / Unknown 05/06/2024 Historical Provider CHEMISTRY ORDERABLES Final R esult Performing Organization Address [facility] Phone Number SEP OFFICE * HEMOGLOBIN A1C (05/06/2024) Only the most recent of41 resultswithin the time period is included. A1c 6.9 SEP OFFICE Comment:4.0-6.0 Blood VENOUS BLOOD / Unknown 05/06/2024 [facility] Provider CHEMISTRY ORDERABLES Final R [facility] Performing Organization Address [facility] Phone Number SEP OFFICE * VITAMIN B12 LEVEL (05/06/2024) Only the most recent of27 resultswithin the time period is included. Vitamin B12 500 PG/ML SEP OFFICE Comment:879-155 Blood VENOUS BLOOD / Unknown 05/06/2024 [facility] Provider CHEMISTRY ORDERABLES Final [facility] Performing Organization Address [facility] Phone Number SEP OFFICE * (ABNORMAL) [...] Comment:1.1-1.8 Blood VENOUS BLOOD / Unknown 05/06/2024 us Historical Provider CHEMISTRY ORDERABLES Edited Result - Final SEP OFFICE * SCANNED LABS (01/16/2024 6:33 [...] ng/dL Blood VENOUS BLOOD / Unknown 12/31/2023 us Rojas Cunningham MD CHEMISTRY ORDERABLES Final [...] .5 Blood VENOUS BLOOD / Unknown 12/31/2023 us Rojas Cunningham MD CHEMISTRY ORDERABLES Final Resu lt Performing Organization Address City/[facility] Co de Phone Number SEP OFFICE * T3 FREE (09/18/2023) Only the most recent of7 resultswithin the time period is included. Free T4 1.05 NG/DL SEP OFFICE Comment:Reference Range: 0.7 8-2.19 ng/dL Blood VENOUS BLOOD / Unknown 09/18/2023 us Rojas Cunningham MD CHEMISTRY ORDERABLES Final Resu lt Performing Organization Address City/[facility] Co de Phone Number SEP OFFICE * URIC ACID (03/20/2023 12:40 PM EDT) Only the most recent of3 resultswithin the time period is included. Uric Acid 5.0 2.4 - 5.7 mg/dL 03/20/2023 5:51 PM EDT [facility], [facility] Blood VENOUS BLOOD / Unknown Venipuncture / Unknown 03/20/2023 12:40 PM EDT 03/20/2023 12:40 PM EDT us Rojas Cunningham MD CHEMISTRY ORDERABLES Final Resu lt PREFERRED LAB [facility], [address] , [place] [address] * TRIIODOTHYRONINE (02/06/2023) Only the most recent of2 resultswithin the time period is included. T3 Free 3.1 PG/ML SEP OFFICE Comment:[facility] -2 .0-4.4 Blood VENOUS BLOOD / Unknown 02/06/2023 us Historical Provider CHEMISTRY ORDERABLES Final R esult Performing Organization Address [facility] Co de Phone Number SEP OFFICE * FRUCTOSAMINE (08/07/2022) Only the most recent of10 resultswithin the time period is included. Fructosamine 273 MCMOL/L SEP OFFICE Comment:Reference Range: 0-2 85 umol/L Blood VENOUS BLOOD / Unknown 08/07/2022 Rojas Cunningham MD CHEMISTRY ORDERABLES Final Resu lt Performing Organization Address [facility] Co de Phone Number SEP OFFICE * VITAMIN C (ASCORBIC ACID) - REF LAB (05/04/2022) Vitamin C 0.1 SEP OFFICE Comment:Reference Range: 0.4 -2.0 mg/dL Blood VENOUS BLOOD / Unknown 05/04/2022 Yecenia Ruiz MD CHEMISTRY ORDERABLES Final Re sult Performing Organization Address [facility]/ZIP Co de Phone Number SEP OFFICE * C-PEPTIDE (05/31/2021) Only the most recent of4 resultswithin the time period is included. C-Peptide 1.5 NG/ML SEP OFFICE Comment:1.1-4.4 [facility] Blood 05/31/2021 Rojas Cunningham MD CHEMISTRY ORDERABLES Edited Res ult - Final Performing Organization Address [facility] Co de Phone Number SEP OFFICE * THYROGLOBULIN AND TG AB REFLEX MONITOR-REF LAB (01/25/2021) Only the most recent of9 resultswithin the time period is included. Thyroglob Ab <1.0 IU/ML SEP OFFICE Comment:[place] 0.0-0.9 Blood 01/25/2021 Rojas Cunningham MD CHEMISTRY ORDERABLES Final Resu lt Performing Organization Address [facility] Co de Phone Number SEP OFFICE * APOLIPOPROTEIN B-REF LAB (07/06/2020) Only the most recent of6 resultswithin the time period is included. 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 No evidence for cervical radiculopathy Wiley Willard MD -Board Certified Physical Medicine and Rehabilitation Narrative [facility] - 04/12/2020 11:13 AM EDT Nerve [...] Verdin MD NEUROLOGY ORDERABLES Final Res ult [facility] [address] [place] [id number] * FRUCTOSAMINE -REF LAB (02/26/2019) Only the most recent of10 resultswithin the time period is included. Fructosamine 257 MCMOL/L SEP OFFICE Comment:Evita Crouch 0-285 Blood 02/26/2019 Rojas Cunningham MD CHEMISTRY ORDERABLES Final Resu lt Performing Organization Address [facility] Co de Phone Number SEP OFFICE * LIPOPROTEIN (A)-REF LAB (01/20/2019) Only the most recent of3 resultswithin the time period is included. Lipoprotein (A) 17 MG/DL SEP OFFICE Comment:<75 -[facility] Blood VENOUS BLOOD / Unknown 01/20/2019 Tiffany Mayen APRN CHEMISTRY ORDERABLES Fin al Result Performing Organization Address [facility] Co de Phone Number SEP OFFICE * FERRITIN (01/08/2019) Only the most recent of7 resultswithin the time period is included. Ferritin 45.1 9.0 - 150.0 NG/ML SEP OFFICE Comment:[facility] 1 1.1-264.0 Blood VENOUS BLOOD / Unknown 01/08/2019 Rojas Cunningham MD CHEMISTRY ORDERABLES Final Resu lt SEP OFFICE * VITAMIN E - REF LAB (07/05/2018 12:00 PM EDT) Alpha-Tocopherol (Vit E) mg/L 10.3 5.5 - 18.0 mg/L 07/09/2018 7:48 AM EDT [employer] Comment: Test developed and characteristics determined by [employer]. See Compliance Statement B: [employer]/ Gamma-Tocopherol (Vit E) mg/L 2.4 0.0 - 6.0 mg/L 07/09/2018 7:48 AM EDT [employer] Comment: Performed by [employer], [address] [place] [address] www.[email or web address], Andrés Gramajo MD, Lab. Director Blood Venipuncture / Unknown 07/05/2018 12:00 PM EDT 07/05/2018 12:00 PM EDT Lauren Fraser APRN CHEMISTRY ORDERABLES Final Result Performing Organization Address City/[facility]/ZIP Co de Phone Number [employer], [employer] [address] [place] [address] * IRON/UIBC (07/05/2018 12:00 PM EDT) Only the most recent of4 resultswithin the time period is included. Iron 96 30 - 160 mcg/dL 07/05/2018 2:05 PM EDT PREFERRED LAB [facility], [employer] UIBC 185 112 - 347 mcg/dL 07/05/2018 2:05 PM EDT [employer] [facility], [employer] Transferrin Sat 34 20 - 50 % 8 2:05 PM EDT [employer], [employer] Blood Venipuncture / Unknown 07/05/2018 12:00 PM EDT 07/05/2018 12:00 PM EDT Lauren Fraser ELECTRIC INSTALLER CHEMISTRY ORDERABLES Final Result [employer] [address] [facility] , [place] [address] * COPPER LEVEL -REF LAB (07/05/2018 12:00 PM EDT) Copper 116 80 - 155 ug/dL 07/09/2018 7:30 AM EDT [facility] Comment: INTERPRETIVE INFORMATION: Copper, Serum or Plasma [...] or malabsorption. See Compliance Statement B at [email or web address] Performed by [employer], [address] [facility] [place] [address] www.[email or web address], Andrés Gramajo MD, Lab. Director Blood Venipuncture / Unknown 07/05/2018 12:00 PM EDT 07/05/2018 12:00 PM EDT us Lauren Fraser ELECTRIC INSTALLER CHEMISTRY ORDERABLES Final Result Performing Organization Address [facility] Co de Phone Number [employer] [address] [place] [address] * VITAMIN B1 (THIAMINE) WHOLE BLOOD -REF LAB (07/05/2018 12:00 PM EDT) Only the most recent of4 resultswithin the time period is included. Vit B1 WB 133 70 - 180 nmol/L 07/10/2018 9:00 AM EDT [employer] Comment: INTERPRETIVE INFORMATION: Vitamin B1, Whole Blood This assay measures the concentration of thiamine diphosphate (TDP), the primary active form of vitamin B1. Approximately 90 percent of vitamin B1 present in whole blood is TDP. Thiamine and thiamine monophosphate, which comprise the remaining 10 percent, are not measured. Test developed and characteristics determined by [employer]. See Compliance Statement B: [employer] Performed by [employer], [address] [facility] [address] www.[email or web address], Andrés Gramajo MD, Lab. Director Blood Venipuncture / Unknown 07/05/2018 12:00 PM EDT 07/05/2018 12:00 PM EDT Lauren Fraser APRN CHEMISTRY ORDERABLES Final Result Performing Organization Address [facility]/ZIP Co de Phone Number [facility] [address] [place], [place] [id number] * ZINC LEVEL-REF LAB (07/05/2018 12:00 PM EDT) Only the most recent of4 resultswithin the time period is included. Zinc 68 60 - 120 ug/dL 07/09/2018 7:30 AM EDT [facility] [employer] Comment: INTERPRETIVE INFORMATION: Zinc, Serum or Plasma Circulating zinc concentrations are dependent on albumin status and are depressed with malnutrition. Zinc may also be lowered with infection, inflammation, stress, oral contraceptives, and . Zinc may be elevated with zinc supplementation or fasting. Elevated zinc concentrations may interfere with copper absorption. Test developed and characteristics determined by [employer]. See Compliance Statement B: [employer] Performed by [employer], [address] [place] [id number] www.[email or web address], Andrés Gramajo MD, Lab. Director Blood Venipuncture / Unknown 07/05/2018 12:00 PM EDT 07/05/2018 12:00 PM EDT Lauren Fraser ELECTRIC INSTALLER CHEMISTRY ORDERABLES Final Result Performing Organization Address [facility] de Phone Number [employer] [address] [place], [place] [id number] * VITAMIN A (RETINOL) -REF LAB (07/05/2018 12:00 PM EDT) Only the most recent of3 resultswithin the time period is included. Vit A(Retinol) 0.37 0.30 - 1.20 mg/L 07/09/2018 7:48 AM EDT [facility] Retinyl Palm 0.02 0.00 - 0.10 mg/L 07/09/2018 7:48 AM EDT [facility] Vit A Intrp Normal 07/09/2018 7:48 AM EDT [facility] Comment: Test developed and characteristics determined by [employer]. See Compliance Statement B: [employer] Performed by [employer], [address] [place] [id number] www.[employer], Andrés Gramajo MD, Lab. Director Blood Venipuncture / Unknown 07/05/2018 12:00 PM EDT 07/05/2018 12:00 PM EDT Lauren Fraser ELECTRIC INSTALLER CHEMISTRY ORDERABLES Final Result Performing Organization Address [facility] de Phone Number [employer] [address] [place] [address] * (ABNORMAL) FOLATE LEVEL (07/05/2018 12:00 PM EDT) Only the most recent of3 resultswithin the time period is included. Folate >16.00(H) 4.50 - 16.00 ng/mL 07/05/2018 2:20 PM EDT [facility] [employer] Blood Venipuncture / Unknown 07/05/2018 12:00 PM EDT 07/05/2018 12:00 PM EDT Narrative [facility] [employer] - 07/05/2018 2:20 PM EDT Ingestion of abdirashid doses of biotin (>5 mg/day) taken within 8 hours of drawing blood sample can interfere with this immunoassay test. Lauren Fraser ELECTRIC INSTALLER CHEMISTRY ORDERABLES Final Result Performing Organization Address [facility] de Phone Number [employer] [address] [facility] , [place] [address] * MISCELLANEOUS LAB (06/12/2018) Only the most recent of2 resultswithin the time period is included. Thyroglobulin <0.1 NG/ML SEP OFFICE Comment:1.5-38.5 -[facility] Thyroglob Ab <0.1 IU/ML SEP OFFICE Comment:0.0-0.9 Blood VENOUS BLOOD / Unknown 06/12/2018 Rojas Cunningham MD HEMATOLOGY ORDERABLES Final Res ult Performing Organization Address [facility] Co de Phone Number SEP OFFICE * FOLATE, RBC -REF LAB (01/02/2018 8:52 AM EDT) Only the most recent of2 resultswithin the time period is included. HCT (from client) 40.5 % 01/03/2018 11:26 PM EDT [employer] Folate RBC 587 >=366 ng/mL 01/03/2018 11:26 PM EDT [employer] Comment: Performed by [employer], [address] [place] [id number] www.[email or web address], Andrés Gramajo MD, Lab. Director Blood Venipuncture / Unknown 01/02/2018 8:52 AM EDT 01/02/2018 8:52 AM EDT Gila Winter APRN CHEMISTRY ORDERABLES Final Res ult Performing Organization Address City/[facility] Co de Phone Number [employer], [facility] [address] [place] [address] * IONIZED CALCIUM - INPATIENT (10/24/2017 11:44 AM EST) Only the most recent of6 resultswithin the time period is included. Pathologist [facility] Calcium Ionized 1.17 1.12 - 1.32 mmol/L 10/24/2017 12:10 PM EST [facility] Blood Venipuncture / Unknown 10/24/2017 11:44 AM EST 10/24/2017 11:44 AM EST us Rojas Cunningham MD CHEMISTRY ORDERABLES Final Resu lt [facility] [address] [place] [address] * BILL TG CL (10/24/2017 11:44 AM EST) BILL_TG_CL-ARU P Billed 10/26/2017 2:22 AM EST [employer] [employer] Comment: Performed by [employer], [address] [place] [address] www.[email or web address], Andrés Gramajo MD, Lab. Director Blood Venipuncture / Unknown 10/24/2017 11:44 AM EST 10/24/2017 11:44 AM EST Rojas Cunningham MD IMMUNOLOGY ORDERABLES Final Res ult Performing Organization Address City/[facility]/ZIP Co de Phone Number [employer] [address] [place] [address] * PARATHYROID HORMONE INTACT (10/24/2017 11:44 AM EST) Only the most recent of8 resultswithin the time period is included. PTH Intact 32.09 15.00 - 65.00 pg/mL 10/24/2017 3:58 PM EST [facility] Blood Venipuncture / Unknown 10/24/2017 11:44 AM EST 10/24/2017 11:44 AM EST Narrative [facility] - 10/24/2017 3:58 PM EST Intact [...] ORDERABLES Final Resu lt Performing Organization Address [facility]/ZIP Co de Phone Number [facility] [address] [place] [address] * APOLIPOPROTEIN, A-1-REF LAB (09/04/2017) Apolipoprotein A-1 138 SEP OFFICE Comment:116-209 Apolipoprotein B 94 SEP OFFICE Comment:54-133 Apolipo. B/A-1 Ratio 0.7 SEP OFFICE Comment:0.0-0.6 Blood VENOUS BLOOD / Unknown 09/04/2017 Rojas Cunningham MD CHEMISTRY ORDERABLES Final Resu lt SEP OFFICE * CALCIUM, IONIZED, SERUM-REF LAB (09/04/2017) Calcium Ionized 5.0 MMOL/L SEP OFFICE Comment:4.5-5.6 [place] Blood VENOUS BLOOD / Unknown 09/04/2017 Rojas Cunningham MD CHEMISTRY ORDERABLES Final Resu lt Performing Organization Address [facility] Co de Phone Number SEP OFFICE * (ABNORMAL) BASIC METABOLIC PANEL [...] Final Resu lt SEP OFFICE * (ABNORMAL) VITAMIN B12/ FOLIC ACID (06/14/2017 1:45 PM EDT) Vitamin B12 994(H) 211 - 946 pg/mL [facility] Folic Acid Lvl 12.57 4.50 - 37.30 ng/mL [facility] Blood specimen (specimen) UPPER LIMB STRUCTURE / Unknown 06/14/2017 1:45 PM EDT 06/14/2017 6:33 PM EDT Lauren Fraser APRN CHEMISTRY ORDERABLES Edite d Result - Final Performing Organization Address City/[facility]/ZIP Co de Phone Number [facility] [address] [place] [address] * MAGNESIUM LEVEL (06/14/2017 1:45 PM EDT) Only the most recent of3 resultswithin the time period is included. Magnesium 2.1 1.6 - 2.4 mg/dL [facility] Blood specimen (specimen) UPPER LIMB STRUCTURE / Unknown 06/14/2017 1:45 PM EDT 06/14/2017 10:15 PM EDT Lauren Fraser APRN CHEMISTRY ORDERABLES Final Result Performing Organization Address City/State/[facility] Co de Phone Number [facility] [address] [place] [address] * (ABNORMAL) CBC (06/06/2017 2:04 PM EDT) Only the most recent of4 resultswithin the time period is included. Pathologist [facility] WBC 9.0 4.0 - 11.0 x10(3)/mcL [facility] RBC 4.79 3.80 - 5.10 x10(6)/mcL [facility] Hgb 12.5 12.0 - 15.6 gm/dL [facility] Hct 38.6 35.7 - 45.9 % [facility] MCV 80.6(L) 82.5 - 99.8 fL [facility] MCH 26.1(L) 27.0 - 34.3 pg [facility] MCHC 32.4 32.1 - 35.3 gm/dL [facility] RDW 14.8 11.5 - 15.0 % [facility] Platelet 210 144 - 423 x10(3)/mcL [facility] MPV 9.3 6.8 - 10.8 fL [facility] Blood specimen (specimen) 06/06/2017 2:04 PM EDT 06/06/2017 2:04 PM EDT us Gila Winter ELECTRIC INSTALLER HEMATOLOGY ORDERABLES Final Re sult Performing Organization Address City/[facility] Co de Phone Number [facility] [address] [place] [address] * SCANNED RHYTHM STRIPS (06/02/2017 8:20 AM EDT) Only the most recent of14 resultswithin the time period is included. Anatomical Region Laterality Modality Other 06/02/2017 8:20 AM EDT us Unknown Unknown IMG ECG ORDERABLES Final Result * (ABNORMAL) GLUCOSE METER POC (05/31/2017 12:51 PM EDT) Only the most recent of6 resultswithin the time period is included. Pathologist [facility] Glucose Meter POC 205(H) 70 - 100 mg/dL [facility] LABORATORY Sample Type Capillary [facility] Patient Status Non-Critical Patient [facility] Blood specimen (specimen) 05/31/2017 12:51 PM EDT 05/31/2017 12:51 PM EDT Duncan Choi MD POINT OF CARE TEST ORDERABLE S Final Result [facility] [address] [facility] [place] [address] * DIFFERENTIAL (05/31/2017 5:44 AM EDT) Only the most recent of10 resultswithin the time period is included. [facility] Neut Percent 73.6 % [facility] Lymph Percent 18.3 % [facility] [place] Percent 7.0 % [facility] Eos Percent 0.5 % [facility] Baso Percent 0.6 % [facility] Neut# 6.9 1.8 - 7.7 x10(3)/mcL [facility] Lymph# 1.7 0.6 - 4.8 x10(3)/mcL [facility] [place]# 0.7 0.0 - 1.3 x10(3)/[facility] [facility] Eos# 0.0 0.0 - 0.5 x10(3)/[facility] Baso# 0.1 0.0 - 0.2 x10(3)/[facility] LABORATORY Blood specimen (specimen) 05/31/2017 5:44 AM EDT 05/31/2017 6:02 AM EDT us Duncan Choi MD HEMATOLOGY ORDERABLES Final Result [facility] [address] [place] [address] * (ABNORMAL) CBC WITH AUTO DIFF (05/31/2017 5:44 AM EDT) Only the most recent of10 resultswithin the time period is included. Pathologist [facility] WBC 9.4 4.0 - 11.0 x10(3)/mcL [facility] RBC 4.64 3.80 - 5.10 x10(6)/mcL [facility] Hgb 12.3 12.0 - 15.6 gm/dL [facility] Hct 37.0 35.7 - 45.9 % [facility] MCV 79.8(L) 82.5 - 99.8 fL [facility] MCH 26.4(L) 27.0 - 34.3 pg [facility] MCHC 33.1 32.1 - 35.3 gm/dL [facility] RDW 15.0 11.5 - 15.0 % [facility] Platelet 179 144 - 423 x10(3)/mcL [facility] MPV 8.9 6.8 - 10.8 fL [facility] Blood specimen (specimen) 05/31/2017 5:44 AM EDT 05/31/2017 6:02 AM EDT us Duncan Choi MD HEMATOLOGY ORDERABLES Final Result [facility] [address] [place] [address] * PARTIAL THROMBOPLASTIN TIME (05/30/2017 7:38 PM EDT) Only the most recent of2 resultswithin the time period is included. [facility] PTT 30.9 26.0 - 36.4 second(s) [facility] Comment: Therapeutic range for unfractionated heparin: 53.0 [...] HEMATOLOGY ORDERABLES Final Result Performing Organization Address [facility] de Phone Number [facility] [address] [place] [address] * PT / INR (05/30/2017 7:38 PM EDT) Only the most recent of3 resultswithin the time period is included. PT 12.7 10.1 - 12.9 second(s) [facility] INR 1.09 0.88 - 1.12 [facility] Comment: Level of Therapy Indications Target INR Range Standard Dose Treatment and prophylaxis of venous 2.0 - 3.0 thrombosis, pulmonary embolism High Dose High risk patients with mechanical 2.5 - 3.5 heart valves Blood specimen (specimen) UPPER LIMB STRUCTURE / Unknown 05/30/2017 7:38 PM EDT 05/30/2017 7:43 PM EDT Duncan Choi MD HEMATOLOGY ORDERABLES Final Result Performing Organization Address [facility] de Phone Number [facility] [address] [place] [address] * PATHOLOGY TISSUE REPORT (05/30/2017 10:23 AM EDT) Only the most recent of2 resultswithin the time period is included. Surgical Pathology Report PATIENT NAME:ANGELES KIMBROUGH Surgical Pathology Report Accession Number Collected Date/Time Received Date/Time [id number] 05/30/17 10:23 EDT 05/30/17 20:33 EDT Diagnosis Greater curvature of stomach, partial resection: - Fundic mucosa, submucosa and muscularis propria showing no evidence of malignancy. - Mild associated chronic inflammation. Mariela Chew (Electronically signed by) Verified: 06/01/2017 [facility] Laboratory Clinical Information Morbid obesity [...] masses, or areas of ulceration grossly identified. Linen Keeper sections are submitted in one cassette. / JEAN MARTINEZ/LATOYA Microscopic Description Microscopic examination is performed and the findings corroborate the diagnosis. [facility] 05/30/2017 10:2 3 AM EDT us Duncan Choi MD PATHOLOGY ORDERABLES Final R esult [facility] [address] [place] [address] * INTRAOP AIRWAY PLACEMENT (05/30/2017 10:11 AM EDT) Narrative [facility] - 05/30/2017 10:11 AM EDT José [...] Atraumatic and Unchanged Insertion attempts: 1 Title: CREDIT ANALYST Procedure Note José Meyer CRNA - 05/30/2017 [...] Atraumatic and Unchanged Insertion attempts: 1 Title: CREDIT ANALYST us Roxie Massey MD IA ANESTHESIA Final Result Performing Organization Address [facility] Co de Phone Number [facility] [address] [place] [address] * CROSSMATCH SUMMARY (05/30/2017 8:48 AM EDT) Blood specimen (specimen) 05/30/2017 8:48 AM EDT 05/30/2017 8:48 AM EDT us Duncan Choi MD BLOOD BANK ORDERABLES Final Result Performing Organization Address [facility] de Phone Number [facility] [address] [place] [address] * ABORH (05/23/2017 12:15 PM EDT) Pathologist [facility] ABORh Int O POS [facility] Blood specimen (specimen) 05/23/2017 12:15 PM EDT 05/23/2017 12:21 PM EDT us Karin Ashley ELECTRIC INSTALLER BLOOD BANK ORDERABLES Final R esult Performing Organization Address [facility] de Phone Number [facility] [address] [place] [address] * ANTIBODY SCREEN IGG (05/23/2017 12:15 PM EDT) Pathologist [facility] ABSC IgG Int Negative [facility] Blood specimen (specimen) 05/23/2017 12:15 PM EDT 05/23/2017 12:21 PM EDT Karin Ashley ELECTRIC INSTALLER BLOOD BANK ORDERABLES Final R esult Performing Organization Address [facility] de Phone Number [facility] [address] [place] [address] * CORTISOL SALIVA-REF LAB (03/29/2017 12:59 AM EDT) Cortisol Saliva-[facility] 0.029 mcg/dL [employer], [facility] Comment: INTERPRETIVE INFORMATION: Cortisol, Saliva Effective 10/30/2005 For collection at 2300 hr. the normal cortisol concentration is less than 0.112 ug/dL. Patients with Cushings Syndrome have concentrations of 0.112 ug/dL or greater. a.m. ([phone]) p.m. (noon-1800) Males 2.5-7 years 0.034-0.645 ug/dL [...] older 0.149-0.739 ug/dL 0.022-0.254 ug/dL Performed by [employer], [address] [place] [id number] [email or web address], Andrés Gramajo MD - Lab. Director Saliva specimen (specimen) 03/29/2017 12:59 AM EDT 03/30/2017 4:10 PM EDT us Gila Winter ELECTRIC INSTALLER CHEMISTRY ORDERABLES Final Res ult [employer] [address] [place] [address] * HEPATIC FUNCTION PANEL (11/07/2016) Only the [...] (specimen) UPPER LIMB STRUCTURE / Unknown 11/07/2016 Shlomo Corbett MD CHEMISTRY ORDERABLES Edited R esult - Final Performing Organization Address City/State/[facility] Co de Phone Number SEP OFF[facility] * US RETROPERITONEAL LIMITED (10/27/2016 3:07 PM EST) Anatomical Region Laterality Modality Ultrasound Impressions 10/30/2016 1:17 PM EST : 1. No pseudoaneurysm of the right groin. Tanvi Ornelas MD. [address] [facility] [place], [address] Narrative 10/30/2016 1:17 PM EST EXAMINATION: Arterial [...] vascular flow outside of the visualized vessels. us Eric Be MD [facility] ORDERABLES Final Result * (ABNORMAL) LIPOPROFILE NMR, PARTICLE ANALYSIS ONLY-REF LAB (08/22/2016 1:21 PM EST) LDL Particle Number by NMR 1523(H) <1000 nmol/L [employer] Comment: Low < 1000 Moderate 1000 - 1299 Borderline-High 1300 - 1599 High 1600 - 2000 Very High > 2000 Performed at: [facility], [address] [place] [address] LDL Particle Size 20.0 >20.5 nm [employer] Comment: INTERPRETATIVE INFORMATION PARTICLE CONCENTRATION AND SIZE [...] developed and their performance characteristics determined by [employer]. These assays have not been cleared by the US Food and Drug Administration. The clinical utility of these laboratory values have not been fully established. Performed at: [facility], [address] [place] [address] LDL Size 20.0 >=20.8 nm [employer] Comment: Performed at: [facility], [address] [place] [address] HDL Particle Number 30.4(L) >=30.5 mcmol/L [facility] Comment: Performed at: [place] [address] HDL Size 8.8(L) >=9.2 nm [facility] Comment: Performed at: [place] [address] Large HDL Particle Number 2.6(L) >=4.8 mcmol/L [facility] Comment: Performed at: [place] [address] Small LDL Particle Number 1027(H) <=527 nmol/L [facility] Comment: Performed at: [place] [address] Small LDL-P 1027(H) <=527 nmol/L [facility] Comment: Performed at: [place] [address] VLDL Size 60.2(H) <=46.6 nm [facility] Comment: Performed at: [place] [address] Large VLDL Particle Number 10.0(H) <=2.7 nmol/L [facility] Comment: Performed at: [place] [address] LP Insulin Resistance Score 83(H) <=45 [facility] [...] US Food and Drug Administration. Performed at: [address] [address] Blood specimen (specimen) 08/22/2016 1:21 PM EST 08/22/2016 6:27 PM EST Rojas Cunningham MD CHEMISTRY ORDERABLES Final Resu lt [employer] [address] [place] [address] * IGF-1 (INSULIN-LIKE GROWTH FACTOR 1) -REF LAB (08/22/2016 1:21 PM EST) Only the most recent of2 resultswithin the time period is included. IGF-1 103 53 - 287 ng/mL [employer] [facility] [employer] Comment: REFERENCE INTERVAL: IGF-1 (Insulin-Like Growth I) IGF-1 values well above the age and gender matched reference interval indicate a possible pituitary tumor secreting growth hormone. IGF-1 values below the reference interval indicate a possible GH deficiency. Access complete set of age- and/or gender-specific reference intervals for this test in the [employer] [facility] Test Directory ([employer]). Performed by [facility], [address] [place] [address] [email or web address], Lion Mooney MD - Lab. Director Blood specimen (specimen) 08/22/2016 1:21 PM EST 08/22/2016 11:16 PM EST Rojas Cunningham MD CHEMISTRY ORDERABLES Final Resu lt Performing Organization Address City/[facility]/ZIP Co de Phone Number [employer] [address] [place] [address] * PHOSPHORUS LEVEL (08/22/2016 1:21 PM EST) Only the most recent of2 resultswithin the time period is included. Pathologist [facility] Phosphorus 4.0 2.5 - 4.5 mg/dL [facility] Blood specimen (specimen) UPPER LIMB STRUCTURE / Unknown 08/22/2016 1:21 PM EST 08/22/2016 5:53 PM EST Rojas Cunningham MD CHEMISTRY ORDERABLES Final Resu lt Performing Organization Address City/[facility] Co de Phone Number [facility] [address] [place] [address] * (ABNORMAL) NMR LIPOPROFILE-REF LAB (06/17/2015) Only the most recent of4 resultswithin the time period is included. LDL Particle Number by NMR 1,225 [facility] Comment:<1000, fax from [facility] HDL Particle Number 25.3 [facility] Comment:>30.5 [...] Res ult - Final Performing Organization Address City/[facility]/ZIP Co de Phone Number SEP OFFICE * C-REACTIVE PROTEIN HIGH SENSITIVITY (06/17/2015) Only the most recent of2 resultswithin the time period is included. CRP 20.2 [facility] Comment:0.0-9.0, fax from [facility] Blood specimen (specimen) UPPER LIMB STRUCTURE / Unknown 06/17/2015 Rojas Cunningham MD CHEMISTRY ORDERABLES Final Resu lt Performing Organization Address [facility] de Phone Number SEP OFFICE * C-PEPTIDE -REF LAB (02/02/2015) Only the most recent of7 resultswithin the time period is included. Pathologist [facility] C-Peptide 1.3 [facility]ICE Comment:1.1-4.4, FAX FROM [facility] Blood specimen (specimen) UPPER LIMB STRUCTURE / Unknown 02/02/2015 Rojas Cunningham MD CHEMISTRY ORDERABLES Final Resu lt Performing Organization Address [facility] de Phone Number SEP OFFICE * [...] Res ult - Final Performing Organization Address City/[facility]/ZIP Co de Phone Number SEP OFFICE [...] ORDERABLES F inal Result Performing Organization Address [facility] de Phone Number SEP OFFICE * LACTIC ACID (01/30/2014 4:11 PM EDT) Lactic Acid 2.0 0.5 - 2.2 mmol/L [facility] Blood specimen (specimen) UPPER LIMB STRUCTURE / Unknown 01/30/2014 4:11 PM EDT 01/30/2014 4:20 PM EDT Rojas Cunningham MD CHEMISTRY ORDERABLES Final Resu lt Performing Organization Address [facility] de Phone Number [facility] [address] [place] [address] * SCANNED RADIOLOGY REPORT (06/25/2013 11:22 AM [...] no significant reversible defects. Jovany Rosario MD [facility] [place] CARDIAC ORDERABLES Final Result * ST STRESS TEST LEXISCAN (06/25/2013 9:28 AM EDT) Only the most recent of2 resultswithin the time period is included. Anatomical Region Laterality Modality Cardiac Stress T esting 06/25/2013 9:17 AM EDT Jovany ACUNA STRESS ORDERABLES Catrachita l Result * LDL, CALCULATED (06/25/2013 4:57 AM EDT) Only the most recent of5 resultswithin the time period is included. LDL Calculated 85 <=100 mg/dL [facility] Comment: < 100 Optimal 100 - 129 Near or above optimal 130 - 159 Borderline High 160 - 189 High >= 190 Very High Blood specimen (specimen) 06/25/2013 4:57 AM EDT 06/25/2013 6:16 AM EDT us Armando Martin MD CHEMISTRY ORDERABLES Final Re sult [facility] [address] [place] [address] * MRI BRAIN WO CONTRAST (06/24/2013 3:25 [...] change from prior brain MRI of 01/04/2013. Armando Martin MD [facility] MRI ORDERABLES Final Resu lt * EC [...] epicardialfat. Aorta Normal aortic root dimension. CONCLUSIONS us Abril Arehart ELECTRIC INSTALLER IMG ECHO ORDERABLES Final Resu lt * VA US CAROTID DUPLEX BILATERAL (06/24/2013 8:13 AM EDT) [...] lesions noted in the left internal carotidartery. us Abril Bernstein APRN IMG VASCULAR ORDERABLES Final Result * EK EKG 12 LEAD (06/24/2013 6:39 AM EDT) Only the most recent of10 resultswithin the time period is included. Anatomical Region Laterality Modality Other 06/24/2013 6:39 AM EDT us Boris Rodriguez MD IMG ECG ORDERABLES Final Result * TSH REFLEX (06/24/2013 5:11 AM EDT) TSH Reflex 1.650 0.300 - 5.000 mcIU/mL [facility] Blood specimen (specimen) UPPER LIMB STRUCTURE / Unknown 06/24/2013 5:11 AM EDT 06/24/2013 1:51 PM EDT us Jovany Rosario MD CHEMISTRY ORDERABLES Final Result Performing Organization Address City/[facility]/ZIP Co de Phone Number [facility] [address] [place] [address] * TROPONIN-I (06/24/2013 1:16 AM EDT) Only the most recent of9 resultswithin the time period is included. Troponin-I <0.01 <=0.06 ng/mL [facility] Blood specimen (specimen) UPPER LIMB STRUCTURE / Unknown 06/24/2013 1:16 AM EDT 06/24/2013 1:21 AM EDT us Boris Rodriguez MD CHEMISTRY ORDERABLES Final Resul t Performing Organization Address [facility] Co de Phone Number [facility] [address] [place] [address] * CT HEAD WO CONTRAST (06/23/2013 6:18 [...] at left eckert radiata has developed since 2004 and corresponds toa small area of cystic ischemic insult on MRI. Brain parenchyma attenuation is otherwisenormal. No parenchymal or extra-axial hemorrhage. No localized mass effect or midline shift. Paranasal and mastoid sinuses are clear. IMPRESSION: 1. No acute intracranial process. 2. Very small chronic left eckert radiata cystic ischemic change. Result [facility] Boris Rodriguez MD [facility] CT ORDERABLES Final Result * XR CHEST [...] contours areunremarkable. Impression: No acute disease identified. Result [facility] Boris Rodriguez MD [facility] DIAGNOSTIC IMAGING ORDERABLE S Final Result * ED TROPONIN (06/23/2013 1:26 PM EDT) Only the most recent of2 resultswithin the time period is included. ED TNI 0.00 <=0.06 ng/mL [facility] Blood specimen (specimen) UPPER LIMB STRUCTURE / Unknown 06/23/2013 1:26 PM EDT 06/23/2013 1:27 PM EDT Result [facility] Boris Rodriguez MD CHEMISTRY ORDERABLES Final Resul t [facility] [address] [place] [address] * POCT RAPID STREP A (02/06/2013 9:21 AM EDT) Strep A Ag None Detected None Detected Pos/Neg [facility] Comment:negative Lot Number SEP OFFICE Expiration Date SEP OFFICE SeriAl # SEP OFFICE Control Line Yes/No [facility]P [facility] Specimen from throat (specimen) 02/06/2013 9:21 AM EDT us Boris Sarmiento MD POINT OF CARE TEST ORDERABLE S Final Result Performing Organization Address [facility] de Phone Number SEP OFFICE * POCT EKG (01/22/2013 1:37 PM EDT) 01/22/2013 1:37 PM EDT Chris Serra MD POINT OF CARE CARDIOLOGY Final Result Performing Organization Address [facility] de Phone Number SEP [facility] * POCT MICROALBUMIN (01/10/2013 11:26 AM EDT) Microalb, Ur neg <=20 mg/L [facility] Lot Number SEP OFFICE Expiration Date SEP OFFICE SeriAl # SEP OFFICE Urine specimen (specimen) 01/10/2013 11:26 AM EDT Boris Sarmiento MD POINT OF CARE TEST ORDERABLE S Final Result Performing Organization Address [facility] de Phone Number SEP OFF[facility] * (ABNORMAL) POCT URINALYSIS DIPSTICK (01/10/2013 11:26 AM EDT) Only the most recent of3 resultswithin the time period is included. Color, UA jose Clear, Yellow, Barnard, Rust [facility] Clarity, UA cloudy Clear, Cloudy [facility] Glucose, UA - g/dl% [facility] Bilirubin, UA - Pos/Neg [facility] Ketones, UA - Pos/Neg SEP pipe coverer and insulator Grav, UA 1.025 1.001 - 1.035 g/dl [...] coronary angiogram appear TECHNICAL FACTORS: 3-D noncontrast [id number] MIP reconstructed images obtained without contrast. They [...] recent coronaryangiogram appear TECHNICAL FACTORS: 3-D noncontrast [id number] MIP reconstructed imagesobtained without contrast. They were [...] recent coronary angiogram. TECHNICAL FACTORS: 2-D noncontrast [id number] MIP reconstructed images from axial acquired source [...] after recent coronaryangiogram. TECHNICAL FACTORS: 2-D noncontrast [id number] MIP reconstructed imagesfrom axial acquired source images. [...] ACTIVATED CLOTTING TIME (01/03/2013 9:47 AM EDT) [facility] ACT 239 sec [facility] Lot Number [id number] [facility] Expiration Date [facility] SeriAl # [id number] [facility] Meter 2 [facility] Blood specimen (specimen) 01/03/2013 9:47 AM EDT Chris Serra MD POINT OF CARE TEST ORDERABLES F inal Result Performing Organization Address City/[facility]/ZIP Co de Phone Number [facility] [address] [place] [address] * PEDIATRIC ALLERGIST PROCEDURE LOG (01/03/2013 9:22 AM EDT) 01/03/2013 9:22 AM EDT Soo Storey APRN [facility] CARDIAC CATH ORDERABLE S Final Result [facility] * EC ECHOCARDIOGRAM COMPLETE W DOPPLER AND COLOR FLOW MAPPING (01/02/2013 4:11 PM EDT) [facility] Ejection Fraction 55 % PYRAMIS Anatomical Region [...] estimated at 55-60 %. Soo Storey APRN IMG ECHO ORDERABLES Final Result * CT ABDOMEN [...] of obstructive uropathy. Normalexam of the appendix. us Billie Bueno MD IM CT ORDERABLES Final Res ult * [place] [...] Fluoroscopy time 2.09 minutes. Tristan Ron MD [facility] FLUOROSCOPY ORDERABLES Final Result * US THYROID [...] appearance of the thyroid Tristan Ron MD [facility] US ORDERABLES Final Result * THYROID PEROXIDASE (TPO) ANTIBODY-ARUP (04/03/2012 10:39 AM EDT) TPO Ab <0.3 0.0 - 9.0 IU/mL [facility] Blood specimen (specimen) UPPER LIMB STRUCTURE / Unknown 04/03/2012 10:39 AM EDT 04/03/2012 2:23 PM EDT Rojas Cunningham MD IMMUNOLOGY ORDERABLES Final Res ult Performing Organization Address [facility] de Phone Number [facility] [address] [place] [address] * GLUTAMIC ACID DECARBOXYLASE AB-ARUP (04/03/2012 10:39 AM EDT) STEPHEN Ab <5.0 0.0 - 5.0 IU/mL [facility] Comment: INTERPRETIVE INFORMATION: Glutamic Acid Decarboxylase Antibody A value greater than 5.0 IU/mL is considered positive for Glutamic Acid Decarboxylase Antibody. Blood specimen (specimen) UPPER LIMB STRUCTURE / Unknown 04/03/2012 10:39 AM EDT 04/03/2012 4:39 PM EDT Rojas Cunningham MD CHEMISTRY ORDERABLES Final Resu lt Performing Organization Address [facility] de Phone Number [facility] [address] [place] [address] * MICROALBUMIN, URINE-ARUP (04/02/2012 11:05 AM EDT) Total Volume Random mL [facility] Hrs Jessica Random hr [facility] U Creatinine 96 mg/dL [facility] U24 Creat Not Applicable 700 - 1600 mg/day [facility] Microalbumin mg/dL-ARUP 0.3 mg/dL [facility] Microalbumin/Cre atinine Ratio-ARUP 3 0 - 30 mg/gm [facility] Microalbumin ug/minute-ARUP Not Applicable 0 - 20 mcg/min [facility] Microalbumin mg/day-ARUP Not Applicable 2 - 30 mg/day [facility] Urine specimen (specimen) 04/02/2012 11:05 AM EDT 04/02/2012 2:48 PM EDT us Ara Howell ELECTRIC INSTALLER URINE ORDERABLES Final R esult [facility] [address] [place] [address] * CT ABDOMEN PELVIS WO ORAL OR [...] This has been roughly stable since 05/11/2011. Kyle Cortez MD IMG CT ORDERABLES Final R esult * (ABNORMAL) BETA-HYDROXYBUTYRIC ACID (02/19/2012 4:05 PM EDT) Beta-Hydroxybu tyric Acid 0.31(H) 0.00 - 0.30 mmol/L [facility] Blood specimen (specimen) 02/19/2012 4:05 PM EDT 02/19/2012 4:10 PM EDT Kyle Cortez MD CHEMISTRY ORDERABLES Catrachita l Result Performing Organization Address City/[facility]/ZIP Co de Phone Number [facility] [address] [place] [address] * LIPASE LEVEL (02/19/2012 4:05 PM EDT) Only the most recent of5 resultswithin the time period is included. Lipase Lvl 49 36 - 250 IU/L [facility] Blood specimen (specimen) UPPER LIMB STRUCTURE / Unknown 02/19/2012 4:05 PM EDT 02/19/2012 4:10 PM EDT Kyle Cortez MD CHEMISTRY ORDERABLES Catrachita l Result Performing Organization Address [facility]/ZIP Co de Phone Number [facility] [address] [place] [address] * (ABNORMAL) AMYLASE LEVEL (02/19/2012 4:05 PM EDT) Only the most recent of3 resultswithin the time period is included. Pathologist [facility] Amylase Lvl <30(L) 30 - 97 IU/L [facility] Blood specimen (specimen) UPPER LIMB STRUCTURE / Unknown 02/19/2012 4:05 PM EDT 02/19/2012 4:10 PM EDT Kyle Cortez MD CHEMISTRY ORDERABLES Catrachita l Result Performing Organization Address [facility] Co de Phone Number [facility] [address] [place] [address] * (ABNORMAL) URINALYSIS (02/19/2012 4:03 PM EDT) Only the most recent of2 resultswithin the time period is included. [facility] UA Color Yellow [facility] UA Appear Clear [facility] UA Glucose 150 mg%(A) Negative [facility] UA Bili Negative Negative [facility] UA Ketones Negative Negative mg/dL [facility] UA Blood Negative Negative [facility] UA pH 7.5 4.8 - 8.0 [facility] UA Protein Trace(A) Negative [facility] UA Urobilinogen Normal [facility] UA Nitrite Negative Negative [facility] UA Leuk Est Negative Negative [facility] UA Spec Grav 1.018 1.001 - 1.035 [facility] UA WBC 2 0 - 4 /HPF [facility] UA RBC 1 0 - 3 /HPF [facility] UA Squam Epi 1+ [facility] UA Mucus Trace [facility] Urine specimen (specimen) STRUCTURE OF URINARY TRACT PROPER / Unknown 02/19/2012 4:03 PM EDT 02/19/2012 4:03 PM EDT Kyle Cortez MD URINE ORDERABLES Edited Performing Organization Address City/[facility]/ZIP Co de Phone Number [facility] [address] [place] [address] * URINE CULTURE (02/19/2012 4:03 PM EDT) [facility] Final Three or more bacterial species isolated from urine indicating superficial or fecal contamination Recollect if clinically indicated [facility] Urine specimen obtained by clean catch procedure (specimen) STRUCTURE OF URINARY TRACT PROPER / Unknown 02/19/2012 4:03 PM EDT 02/19/2012 4:16 PM EDT us Kyle Cortez MD MICROBIOLOGY - GENERAL OR DERABLES Final Result [facility] [address] [place] [address] * XR CHEST PA AND LATERAL (02/01/2012 1:25 PM EDT) Only the most recent of2 resultswithin the time period is included. Anatomical Region Laterality Modality Chest Radiographic [place] ging 02/01/2012 Impressions 02/01/2012 1:57 PM EDT Impression: Normal chest. Narrative 02/01/2012 1:57 PM EDT PA and Lateral Chest: Feb 01, 2012 01:25:23 PM History: [id number] Findings: The heart and lungs are within normal limits. Procedure Note Esme Baron - 02/01/2012 PA and Lateral Chest: Feb 01, 2012 01:25:23 PM History: [id number] Findings: The heart and lungs are within normal limits. Impression: Normal chest. us Arely Karimi MD IMG DIAGNOSTIC IMAGING ORDERA BLES Final Result * (ABNORMAL) VITAMIN D, [id number] (01/04/2012 11:29 AM EDT) Vit D 25 OH 19(L) 30 - 80 ng/mL [facility] Comment: INTERPRETIVE INFORMATION: Vitamin D, 25-Hydroxy [...] 11:29 AM EDT 01/04/2012 2:09 PM EDT Harper Mcgrath MD CHEMISTRY ORDERABLES Fin al Result [facility] [address] [place] [address] * ST STRESS TEST EXERCISE (11/22/2011 11:32 AM EST) Anatomical Region Laterality Modality Cardiac Stress T esting 11/22/2011 11:1 1 AM EST us Georgette Isbell IMG STRESS ORDERABLES Final R [...] the colon No lymphadenopathy or bowel obstruction Buou-rf-mukfcaru clonic diverticulosis. No evidence of diverticulitis. Procedure [...] the colon No lymphadenopathy or bowel obstruction Cnqh-zk-iaorglov clonic diverticulosis. No evidence of diverticulitis. IMPRESSION: No acute findings. Normal appendix. Nonobstructing bilateralsmall renal stones. Cal Pate MD IMG CT ORDERABLES Final Result * NON-POULTRY BONER CYTOLOGY REPORT (08/25/2011 2:39 PM EST) Non-Internet Media Planner Cytology Report PATIENT NAME:ANGELES POPE Non-Internet Media Planner Cytology Report Accession Number Collected Date/Time Received Date/Time [id number] 08/25/11 14:39 EST 08/25/11 14:40 EST Specimen Source Fine Needle Aspiration - Right Thyroid Diagnosis Other Diagnostic Category, see comment section. Comment Specimen Adequacy: Satisfactory Cellular specimen composed of uniform, cytologically bland-appearing follicular epithelial cells with a predominantly macrofollicular arrangement. Colloid is present. COMMENT: The cytologic findings are consistent with a benign thyroid nodule. Clinical and radiographic correlation is recommended. Museum Tour Guide: MR YUNG 08/28/2011 Completed by: BRENT OROZCO MD (Electronically signed by) 08/28/2011 [facility] Laboratory Gross Description 4 direct smears made. Evaluation Episode #1: Adequate Evaluation Episode #2: Adequate Immediate Assessment for Adequacy: Adequate for cytologic diagnosis./ QL [facility] 08/25/2011 2:39 PM EST Jeremy Ravi MD CYTOLOGY ORDERABLES Final Result [facility] [address] [place] [address] * US GUIDED THYROID BIOPSY (08/25/2011 2:03 [...] needle biopsy thyroidnodule. us Tristan Ron MD [facility] US ORDERABLES Final Result * SCANNED OR REPORT (07/06/2011 12:00 AM EDT) Narrative 07/06/2011 9:26 PM EDT Ordered by an unspecified provider. Transcriptions Unknown, Unknown - 07/06/2011 9:26 PM EDT us Unknown Unknown PROCEDURE/MINOR SURGICAL ORDERAB LES Final Result * FOLLICLE STIMULATING HORMONE LEVEL (06/14/2011 11:12 AM EDT) FSH 33.9 mIU/mL [facility] Comment: Suggested Reference Range (mIU/mL) Postmenopausal Female 22 - 130 Follicular Phase Female 2 - 12 Luteal Phase Female 1 - 10 Blood specimen (specimen) UPPER LIMB STRUCTURE / Unknown 06/14/2011 11:12 AM EDT 06/14/2011 12:40 PM EDT us Harper Mcgrath MD CHEMISTRY ORDERABLES Fin al Result [facility] [address] [place] [address] * XR ABDOMEN AP (05/11/2011 2:21 PM [...] PM EDT) D-Dimer <0.22 <=0.45 mcg/ml FEU [facility] Comment: The D-dimer test is used [...] Page MD HEMATOLOGY ORDERABLES Final R esult [facility] [address] [place] [address] * SCANNED OR REPORT (04/28/2010 12:00 AM [...] 11/05/2009 Narrative 11/05/2009 12:00 AM EST Name: TOSHIA CHAN : 1960 VERIFIED [facility] Reason: 592.0/KUB Dict.Staff: ANGELA FARRIS [id number] Verified By: WILLA WEI Moncho: 11/05/09 11:32 pm Exams: [id number] [id number] KUB, 11/05/2009: COMPARISON: 09/08/2009. HISTORY: Right flank pain, history of renal stones. IMPRESSION: Small bilateral intrarenal stones are stable. Previously seen right proximal ureteral stone is not seen on the current study. The intrarenal stones measure less than 5mm in size each. ANGELA FARRIS MD:joann DICTATED 11/05/2009 @ 15:30 end of result Procedure Note Unknown, U - 01/21/2010 Name: TOSHIA CHAN : 1960 VERIFIED [facility] Reason: 592.0/KUB Dict.Staff: ANGELA FARRIS [id number] Verified By: WILLA WEI Moncho: 11/05/09 11:32 pm Exams: [id number] [id number] KUB, 11/05/2009: COMPARISON: 09/08/2009. HISTORY: Right flank pain, history of renal stones. IMPRESSION: Small bilateral intrarenal stones are stable. Previously seen right proximal ureteral stone is not seen on the current study. The intrarenal stones measure less than 5mm in size each. ANGELA FARRIS MD:joann DICTATED 11/05/2009 @ 15:30 end of result us U Unknown IMG [facility] RAD HISTORICAL Final Result * EK EKG REG (10/05/2009 12:01 AM EST) Anatomical Region Laterality Modality Other 10/05/2009 12:0 1 AM EST Narrative 10/06/2009 4:45 AM EST Sinus rhythm Anterior T wave changes are nonspecific, more pronounced than previous t racing Borderline ECG Manager Financial Planning- JEFFREY MOSQUERA M.D. Released Date Time- 10/06/09 0445 Procedure Note Jeffrey Mosquera - 12/17/2009 Sinus rhythm Anterior T wave changes are nonspecific, more pronounced than previous t racing Borderline ECG Manager Financial Planning- JEFFREY MOSQUERA M.D. Released Date Time- 10/06/09 0445 Wiley Garza MD [facility] STAR CARD HISTORICAL Final Result * CT ABDOMEN W/O CONTRAST (09/08/2009 12:00 AM EST) Only the most recent of2 resultswithin the time period is included. Anatomical Region Laterality Modality Other 09/08/2009 09/08/2009 Narrative 09/08/2009 12:00 AM EST Name: TOSHIA CHAN : 1960 VERIFIED [facility] Reason: ac9 stone protocol Dict.Staff: ESME FREEMAN [id number] Verified By: MIK FREEMAN Moncho: 09/09/09 11:04 [...] Procedure Note Unknown, U - 01/21/2010 Name: TOSHIA CHAN : 1960 VERIFIED [facility] Reason: ac9 stone protocol Dict.Staff: ESME FREEMAN [id number] Verified By: MIK FREEMAN Moncho: 09/09/09 11:04 [...] end of result us U Unknown IMG [facility] RAD HISTORICAL Final Result * DIAG ABDOMEN KUB/UP &/OR DECUB & CHEST (08/01/2009 12:00 AM EDT) Anatomical Region Laterality Modality Other 08/01/2009 08/01/2009 Narrative 08/01/2009 12:00 AM EDT Name: TOSHIA CHAN : 1960 VERIFIED [facility] Reason: abd pain Dict.Staff: MARY RAMOS [id number] Verified By: ARMANDO SUNSHINE Moncho: 08/02/09 1:43 [...] ABNORMALITY. PROBABLE RIGHT KIDNEY STONE. NEGATIVE CHEST. [employer] DICTATED ON AUGUST 01, 2009 @ 15:41 HOURS. end of result Procedure Note Unknown, U - 01/21/2010 Name: TOSHIA CHAN : 1960 VERIFIED [facility] Reason: abd pain Dict.Staff: MARY RAMOS [id number] Verified By: ARMANDO SUNSHINE Moncho: 08/02/09 1:43 [...] ABNORMALITY. PROBABLE RIGHT KIDNEY STONE. NEGATIVE CHEST. [employer] DICTATED ON AUGUST 01, 2009 @ 15:41 HOURS. end of result us U Unknown [facility] RAD HISTORICAL Final Result Visit Diagnoses Diagnosis [...] unspecified hyperlipidemia 01/10/2013 CHF (congestive heart failure) (HCC) Congestive heart failure, unspecified 01/10/2013 Headache(784.0) Headache 01/10/2013 Hypertension Unspecified essential hypertension 01/22/2013 CHF (congestive heart failure) (HCC) Congestive heart failure, unspecified 01/22/2013 Hyperlipidemia Other [...] type 2 diabetes mellitus with complication, unspecified terminal supervisor insulin use status 11/27/2016 Post-surgical hypothyroidism Postsurgical [...] excess calories (HCC) 03/06/2017 BMI 40.0-44.9, adult (HCC) Body Mass Index 40.0-44.9, adult 03/06/2017 Mixed [...] Generalized anxiety disorder 03/30/2017 No diagnosis on [place] Observation of other suspected mental condition [...] 04/03/2017 Morbid obesity due to excess calories ([facility]) 04/16/2017 Morbid obesity with BMI of 40.0-44.9, adult ([facility]) 04/18/2017 Morbid obesity due to excess calories ([facility]) 05/03/2017 Morbid obesity, unspecified obesity type ([facility]) 05/03/2017 Morbid obesity with BMI of 40.0-44.9, adult ([facility]) 05/03/2017 Vitamin deficiency Unspecified vitamin deficiency 05/08/2017 Morbid obesity with BMI of 40.0-44.9, adult ([facility]) 05/17/2017 Uncontrolled type 2 diabetes mellitus with complication, with long-term current use of insulin 05/17/2017 Essential hypertension Unspecified essential hypertension 05/17/2017 Sleep apnea, unspecified type 05/17/2017 Morbid obesity due to excess calories ([facility]) 05/17/2017 Chest pain, unspecified type 05/17/2017 [...] Morbid obesity with BMI of 40.0-44.9, adult ([facility]) 05/17/2017 Coronary artery disease of [place] heart with stable angina pectoris, unspecified vessel or lesion type 05/21/2017 History of coronary artery stent placement 05/21/2017 Morbid obesity (HCC) Morbid obesity 05/21/2017 BMI 40.0-44.9, adult ([facility]) Body Mass Index 40.0-44.9, adult 05/21/2017 [...] hyperglycemia, with long-term current use of insulin ([facility]) 03/06/2023 Post-surgical hypothyroidism Postsurgical hypothyroidism 03/07/2023 Dyslipidemia associated with type 2 diabetes mellitus (HCC) Type II or unspecified type diabetes mellitus with other specified manifestations, not stated as uncontrolled 03/20/2023 Vitamin D deficiency Unspecified vitamin D deficiency 03/20/2023 Post-surgical hypothyroidism Postsurgical hypothyroidism 03/20/2023 Type 2 diabetes mellitus with hyperglycemia, with long-term current use of insulin ([facility]) 03/20/2023 Dyslipidemia associated with type 2 diabetes [...] hyperglycemia, with long-term current use of insulin ([facility]) 05/25/2023 Dyslipidemia associated with type 2 diabetes mellitus (HCC) Type II or unspecified type diabetes mellitus with other specified manifestations, not stated as uncontrolled 06/07/2023 Vitamin D deficiency Unspecified vitamin D deficiency 06/07/2023 Post-surgical hypothyroidism Postsurgical hypothyroidism 06/07/2023 Follicular thyroid cancer (HCC) Malignant neoplasm of thyroid gland 06/07/2023 Type 2 diabetes mellitus with hyperglycemia, with long-term current use of insulin ([facility]) 09/05/2023 Vitamin D deficiency Unspecified vitamin D [...] complication, uncontrolled 05/30/2017 CHF (congestive heart failure) (HCC) Congestive heart failure, unspecified 05/30/2017 Fatty liver Other chronic nonalcoholic liver disease 05/30/2017 Morbid obesity with BMI of 40.0-44.9, adult ([facility]) 05/30/2017 Sleep apnea Unspecified sleep apnea [...] EDT) No Jigna Dove LCSW Care Teams Water Maintenance Supervisor Relationship Specialty Start Date End Date Chris Serra MD [address] [place] [address] [place] [address] Physician Internal Medicine-Cardiovascular Disease 01/16/13
[2025-06-22 13:23] LABS: Hematocrit 39.0 % (37.0-47.0); Hemoglobin 12.3 g/dL (12.2-16.2); Immature Granulocytes % 0.2 %; Mean Corpuscular HGB Conc 31.5 g/dL (31.8-35.4); Mean Corpuscular Hemoglobin 26.7 pg (27.0-31.2); Mean Corpuscular Volume 84.6 fl (81-99); Nucleated Red Blood Cells % 0 %; Platelet Count 175 K/mm3 (142-424); Red Blood Count 4.61 M/mm3 (4.20-5.40); Red Cell Distribution Width-SD 40.7 fL; White Blood Count 6.2 K/mm3 (4.8-10.8)
[2025-06-22 13:27] LABS: Hemoglobin A1C 6.3 % (4.0-6.0)
[2025-06-22 13:51] LABS: Alanine Aminotransferase 14 U/L (12-78); Albumin Level 4.1 g/dl (3.5-5.0); Albumin/Globulin Ratio 1.5 (1.1-1.8); Alkaline Phosphatase 89 U/L (38-126); Anion Gap 10.1 mEq/L (5-15); Aspartate Amino Transferase 22 U/L (14-36); Bilirubin,Total 0.6 mg/dl (0.2-1.3); Blood Urea Nitrogen 17 mg/dl (7-17); Calcium 8.6 mg/dl (8.4-10.2); Carbon Dioxide 29 mmol/L (22.0-30.0); Chloride 106 mmol/L (98-107); Cholesterol 145 mg/dl (140-200); Creatinine,Serum 0.80 mg/dl (0.52-1.04); Estimated Glomerular Filt Rate 72 ml/min (>60); GFR (African American) 88 ML/MIN (>60); Globulin 2.8 g/dL (1.3-3.2); Glucose 139 mg/dl (74-100); HDL Cholesterol 43 mg/dl (40-60); Potassium 4.1 mmoL/L (3.5-5.1); Sodium 141 mmol/L (136-145); Total Protein,Serum 6.9 g/dl (6.3-8.2); Triglycerides 167 mg/dl (30-150)
[2025-06-22 14:01] LABS: C-Reactive Protein 3.0 mg/L (0-4)
[2025-06-22 14:08] LABS: Free T4 (Free Thyroxine) 2.13 ng/dl (0.78-2.19)
[2025-06-22 14:09] LABS: 25-OH Vitamin D, Total 100 ng/mL (30-100)
[2025-06-22 14:23] LABS: Thyroid Stimulating Hormone 0.02 uIU/mL (0.465-4.68)
[2025-06-22 14:42] LABS: Vitamin B12 413 pg/mL (239-931)
== END 2025-06-22 23:59 | disposition home or self-care (01) ==
LOC: LAB 12:06
PROVIDERS: Podiatrist; PCP Nurse Practitioner Family; Visit Provider Hospitalist
DX: E89.0 Postprocedural hypothyroidism (principal); L03.116 Cellulitis of left lower limb; E11.69 Type 2 diabetes mellitus with other specified complication; E78.5 Hyperlipidemia, unspecified; E55.9 Vitamin D deficiency, unspecified
CPT/HCPCS: 36415; 80053; 80061; 82043; 82306; 82570; 82607; 83036; 84439; 84443; 85025; 85651; 86140

== ENCOUNTER 2025-07-03 10:15 | Outpatient (CLI) | payer MEDICARE, MEDICAID, SELFPAY ==
--- OUTSIDE RECORDS SUMMARY | 2025-07-03 10:17 | XMS_ITS | Encounter Summary ---
Author Organization [facility] [place] [address] Care Team Providers Care Healthcare Marketer Name Role Phone Chris Serra MD Unavailable [phone] Reason for Visit * Reason Onset Date Comments Labs Only 06/22/2025 Encounter Details Date Type Department Care Team (Late st Contact Info) Description 06/22/2025 Telephone [facility] [address] [facility] [address] [place] [phone] Rojas Cunningham MD [address] [facility] [address] [place] [address] Labs Only Social History Tobacco [...] signatures. Please obtain signatures and fax to [facility] at [phone] documented in this encounter Plan of Treatment Upcoming Encounters Date Type Department Care Team (Late st Contact Info) Description 07/09/2025 11:40 AM EDT Office Visit [facility] [address] [facility] [address] [place] [phone] Rojas Cunningham MD [address] [phone] documented as of this encounter [...] on filedocumented in this encounter Care Teams Healthcare Marketer Relationship Specialty Start Date End Date Chris Serra MD [address] [place] [address] [place] [address] Physician Internal Medicine-Cardiovascular Disease 01/16/13 documented as of this encounter
--- OUTSIDE RECORDS SUMMARY | 2025-07-03 10:17 | XMS_ITS | Clinical Summary ---
Author Organization [facility] Address [address] [place] [id number] Care Team Providers Care Stroboroma Operator Name Role Phone Tiffany Mayen Primary Care Provider [phone] Source Comments This information has been disclosed [...] therelease of HIV test results or diagnoses. [id number] Allergies No known active allergies Immunizations [...] on file Insurance MEDICAID [place] Care Teams Stroboroma Operator Relationship Specialty Start Date End Date Tiffany Mayen [address] [facility] [address] [address] PCP - General 07/12/16
--- OUTSIDE RECORDS SUMMARY | 2025-07-03 10:18 | XMS_ITS | Encounter Summary ---
Author Organization [facility] [place] [address] Care Team Providers Care Plate Glass Polisher Name Role Phone Chris Serra MD Unavailable [phone] Reason for Visit * Reason Onset Date Comments Cancelled Appointment 06/04/2025 Encounter Details Date Type Department Care Team (Late st Contact Info) Description 06/04/2025 Telephone [facility] [address] [facility] [address] [place] [phone] Rojas Cunningham MD [address] [facility] [address] [place] [phone] Cancelled Appointment Social History Tobacco Use [...] Description 07/09/2025 11:40 AM EDT Office Visit [facility] [place] [address] [facility] [address] [place] [phone] Rojas Cunningham MD [address] [facility] [address] [place] [phone] documented as of this encounter Goals [...] on filedocumented in this encounter Care Teams Plate Glass Polisher Relationship Specialty Start Date End Date Chris Serra MD [address] [place] [address] [place] [address] Physician Internal Medicine-Cardiovascular Disease 01/16/13 documented as of this encounter
--- OUTSIDE RECORDS SUMMARY | 2025-07-03 10:18 | XMS_ITS | Clinical Summary ---
Author Organization [facility] Address [address] [place] [address] Care Team Providers Care Shingle Carrier Name Role Phone Unavailable Primary Care Provider [...] 09/09/2009 [facility]-Zoster Vaccines (1 of 2) 2012 [id number] Vaccine (1 - season) 2025 [facility]-Influenza Vaccine [...]
--- OUTSIDE RECORDS SUMMARY | 2025-07-03 10:18 | XMS_ITS | Data Portability ---
Author Organization [facility] Address [address] [place] [address] Care Team Providers Care Front Counter Clerk Name Role Phone ANEUDY KRISHNAN Referring Provider BINH HOOPER Referring Provider [phone] REE HARRIS Referring Provider Unavailable Physician Asst [phone] Assessment Encounter Date Assessment Date Assessment LastModified by Organization Details LastModified Time 11/13/2022 11/13/2022 NTG 0.4 mg SL given at 1619 45 mins spent one-on-one with pt nguttman Not available 11/13/2022 19:02:16 Plan of Treatment Reminders Order Date Submit Date Provider Last Modified By Organization Details Last Modified Time Details Appointments None recorded. Lab glucose, fingerstic k, blood [address] , [place], [address], 3 19:02:18 rapid SARS CoV + SARS CoV 2 Ag, QL IA, respirator y specimen [address] , [place], [address], 3 19:02:18 urinalysis , dipstick [address] , [place], [address], 3 18:19:28 microalbum in/creatin ine, mass ratio, urine 2022 023 [facility], [address] [place] [address] , [place], [address], 3 18:19:28 rapid flu (A+B) 2021 022 [facility], [address] [place] [address] , [place], [address], 2 14:19:33 rapid SARS CoV + SARS CoV 2 Ag, QL IA, respirator y specimen 2021 022 [facility], [address] [place] [address] , [place], [address], 2 14:19:33 rapid flu (A+B) 2021 022 [facility], [address] [place] [address] , [place], [address], 2 15:01:08 rapid SARS CoV + SARS CoV 2 Ag, QL IA, respirator y specimen 2021 022 [facility], [address] [place] [address] , [place], [address], 2 15:01:08 BMP, serum or plasma 2021 DIAN[facility], [address], [facility], [place], [address], 2 09:11:37 ESR (erythrocy te sedimentat ion rate), blood 2021 DIANELYS [facility], [address], [address], [place], [address], 09:11:38 CBC w/ auto diff 2021 DIANELYS [facility], [address], [address], [place], [address], 09:11:36 magnesium, serum or plasma 2021 DIANELYS [facility], [address], [address], [place], [address], 09:11:38 TSH, ultra-sens itive, serum 2021 DIANELYS [facility], [address], [address], [place], [address], 09:11:37 C reactive protein, QN, serum or plasma 2021 DIANELYS [facility], [address], [address], [place], [address], 09:11:39 Referral physical therapist referral 2022 023 [facility], [address] [place] [address], [address], 3 14:26:34 Procedures None recorded. Surgeries None recorded. Imaging None recorded. Medication Orders tizanidine 4 mg tablet [address], [address], 3 16:33:15 prednisone 20 mg tablet [address]22 [address], [address], 3 16:33:15 sumatripta n 100 mg tablet 2022 [address], [address], 3 16:33:15 Tamiflu 75 mg capsule [address], [address], 3 14:04:35 cephalexin 500 mg capsule [address], [address], 3 14:04:11 meclizine 12.5 mg tablet 2021 [address], [address], 2 11:24:52 Patient TargetsNo targets recorded. Patient Instructions Encounter Date Encounter Id Patient Instructions Last Modified By Organization Details Last Modified Time 07/07/2022 [id number] rest over the weekend and stay well hydrated. food only as tolerated. will see if med helps with dizziness and nausea - warned of drowsiness. will talk to her when the labs are back. seek emergent care if her symptoms acutely worsen, or are concerning - eg. one-sided weakness/numbness , vision loss, etc nguttman Not available 07/07/2022 11:26:22 07/26/2022 [id number] body mass index: care instructions tgrosser Not available 07/26/2022 15:01:08 learning about healthy weight tgrosser Not available 07/26/2022 15:01:08 08/15/2022 [id number] Rest and fluids OTC's to use reviewed. [...] concerns nguttman Not available 08/15/2022 15:42:47 10/26/2022 [id number] warned that taking steroids will probably raise her blood sugar. close f/u with Dr Cunningham. if her symptoms worsen at any time, joe if she has perineal numbness, bowel/bladder incontinence, either call me or go to the ER nguttman Not available 10/26/2022 14:42:55 11/13/2022 [id number] her BS is ok. he r BP [...] x10e3 /uL 3.4-10 .8 Not Available [facility] ([facility]) [address] [place], [address], 07/08/2022 09:11:36 07/07/20 22 07/08/2022 CBC WITH DIFFE RENTI AL/PL ATELE T RBC 4.68 x10e6 /uL 3.77-5 .28 Not Available [facility] ([facility]) [address] [place], [address], 07/08/2022 09:11:36 07/07/20 22 07/08/2022 CBC WITH DIFFE RENTI AL/PL ATELE T hemoglobin 13.3 g/dL 11.1-1 5.9 Not Available [facility] ([facility]) [address] [place], [address], 07/08/2022 09:11:36 07/07/20 22 07/08/2022 CBC WITH DIFFE RENTI AL/PL ATELE T hematocrit 40.6 % 34.0-4 6.6 Not Available [facility] ([facility]) [address] [facility], [place], [address], 07/08/2022 09:11:36 07/07/20 22 07/08/2022 CBC WITH DIFFE RENTI AL/PL ATELE T MCV 87 fL 79-97 Not Available [facility] ([facility]) [address] [facility], [place], [address], 07/08/2022 09:11:36 07/07/20 22 07/08/2022 CBC WITH DIFFE RENTI AL/PL ATELE T MCH 28.4 pg 26.6-3 3.0 Not Available [facility] ([facility]) [address] [facility], [place], [address], 07/08/2022 09:11:36 07/07/20 22 07/08/2022 CBC WITH DIFFE RENTI AL/PL ATELE T MCHC 32.8 g/dL 31.5-3 5.7 Not Available [facility] ([facility]) [address] [place], [address], 07/08/2022 09:11:36 07/07/20 22 07/08/2022 CBC WITH DIFFE RENTI AL/PL ATELE T RDW 13.2 % 11.7-1 5.4 Not Available [facility] ([facility]) [address] [place], [address], 07/08/2022 09:11:36 07/07/20 22 07/08/2022 CBC WITH DIFFE RENTI AL/PL ATELE T platelets 156 x10e3 /uL 150-45 0 Not Available [facility] ([facility]) [address] [place], [address], 07/08/2022 09:11:36 07/07/20 22 07/08/2022 CBC WITH DIFFE RENTI AL/PL ATELE T neutrophils 47 % not estab. Not Available [facility] ([facility]) [address] [facility], [place], [address], 07/08/2022 09:11:36 07/07/20 22 07/08/2022 CBC WITH DIFFE RENTI AL/PL ATELE T lymphs 41 % not estab. Not Available [facility] ([facility]) [address] [facility], [place], [address], 07/08/2022 09:11:36 07/07/20 22 07/08/2022 CBC WITH DIFFE RENTI AL/PL ATELE T monocytes 9 % not estab. Not Available [facility] ([facility]) [address] [facility], [place], [address], 07/08/2022 09:11:36 07/07/20 22 07/08/2022 CBC WITH DIFFE RENTI AL/PL ATELE T eos 1 % not estab. Not Available [facility] ([facility]) [address] [facility], [place], [address], 07/08/2022 09:11:36 07/07/20 22 07/08/2022 CBC WITH DIFFE RENTI AL/PL ATELE T basos 1 % not estab. Not Available [facility] ([facility]) [address] [facility], [place], [address], 07/08/2022 09:11:36 07/07/20 22 07/08/2022 CBC WITH DIFFE RENTI AL/PL ATELE T immature cells SKETCH ARTIST Not Available [facility] ([facility]) [address] [facility], [place], [address], 07/08/2022 09:11:36 07/07/20 22 07/08/2022 CBC WITH DIFFE RENTI AL/PL ATELE T neutrophils (absolute) 2.6 x10e3 /uL 1.4-7. 0 Not Available [facility] ([facility]) [address] [facility], [place], [address], 07/08/2022 09:11:36 07/07/20 22 07/08/2022 CBC WITH DIFFE RENTI AL/PL ATELE T lymphs (absolute) 2.2 x10e3 /uL 0.7-3. 1 Not Available [facility] ([facility]) [address] [facility], [place], [address], 07/08/2022 09:11:36 07/07/20 22 07/08/2022 CBC WITH DIFFE RENTI AL/PL ATELE T monocytes(ab solute) 0.5 x10e3 /uL 0.1-0. 9 Not Available [facility] ([facility]) [address] [facility], [place], [address], 07/08/2022 09:11:36 07/07/20 22 07/08/2022 CBC WITH DIFFE RENTI AL/PL ATELE T eos (absolute) 0.1 x10e3 /uL 0.0-0. 4 Not Available [facility] ([facility]) [address] [facility], [place], [address], 07/08/2022 09:11:36 07/07/20 22 07/08/2022 CBC WITH DIFFE RENTI AL/PL ATELE T baso (absolute) 0.0 x10e3 /uL 0.0-0. 2 Not Available [facility] ([facility]) [address] [facility], [place], [address], 07/08/2022 09:11:36 07/07/20 22 07/08/2022 CBC WITH DIFFE RENTI AL/PL ATELE T immature granulocytes 1 % not estab. Not Available [facility] ([facility]) [address] [facility], [place], [address], 07/08/2022 09:11:36 07/07/20 22 07/08/2022 CBC WITH DIFFE RENTI AL/PL ATELE T immature grans (abs) 0.1 x10e3 /uL 0.0-0. 1 Not Available [facility] ([facility]) [address] [facility], [place], [address], 07/08/2022 09:11:36 07/07/20 22 07/08/2022 CBC WITH DIFFE RENTI AL/PL ATELE T NRBC SKETCH ARTIST Not Available [facility] ([facility]) [address] [facility], [place], [address], 07/08/2022 09:11:36 07/07/20 22 07/08/2022 CBC WITH DIFFE RENTI AL/PL ATELE T hematology comments: SKETCH ARTIST Not Available [facility] ([facility]) [address] [facility], [place], [address], 07/08/2022 09:11:36 07/07/20 22 07/08/2022 BASIC METAB OLIC PANEL (8) glucose 141 mg/dL 70-99 above high normal Ple ase note refer ence inter maxine cheney e Not Available [facility] ([facility]) [address] [facility], [place], [address], 07/08/2022 09:11:36 07/07/20 22 07/08/2022 BASIC METAB OLIC PANEL (8) BUN 15 mg/dL 8-27 Not Available [facility] ([facility]) [address] [facility], [place], [address], 07/08/2022 09:11:36 07/07/20 22 07/08/2022 BASIC METAB OLIC PANEL (8) creatinine 0.66 mg/dL 0.57-1 .00 Not Available [facility] ([facility]) [address] [facility], [place], [address], 07/08/2022 09:11:36 07/07/20 22 07/08/2022 BASIC METAB OLIC PANEL (8) eGFR 100 mL/mi n/1.7 3 >59 Not Available [facility] ([facility]) [address] [facility] [place], [address], 07/08/2022 09:11:36 07/07/20 22 07/08/2022 BASIC METAB OLIC PANEL (8) BUN/creatini ne ratio 23 12-28 Not Available [facility] ([facility]) [address] [facility] [place], [address], 07/08/2022 09:11:36 07/07/20 22 07/08/2022 BASIC METAB OLIC PANEL (8) sodium 143 mmol/ L 134-14 4 Not Available [facility] ([facility]) [address] [facility] [place], [address], 07/08/2022 09:11:36 07/07/20 22 07/08/2022 BASIC METAB OLIC PANEL (8) potassium 4.2 mmol/ L 3.5-5. 2 Not Available [facility] ([facility]) [address] [facility] [place], [address], 07/08/2022 09:11:36 07/07/20 22 07/08/2022 BASIC METAB OLIC PANEL (8) chloride 103 mmol/ L 96-106 Not Available [facility] ([facility]) [address] [place], [address], 07/08/2022 09:11:36 07/07/20 22 07/08/2022 BASIC METAB OLIC PANEL (8) carbon dioxide, total 24 mmol/ L 20-29 Not Available [facility] ([facility]) [address] [place], [address], 07/08/2022 09:11:36 07/07/20 22 07/08/2022 BASIC METAB OLIC PANEL (8) calcium 8.6 mg/dL 8.7-10 .3 below low normal Not Available [facility] ([facility]) [address] [facility], [address], 07/08/2022 09:11:36 07/07/20 22 07/08/2022 TSH RFX ON ABNOR MAL TO FREE T4 TSH 0.016 uIU/m L 0.450- 4.500 below low normal Not Available [facility] ([facility]) [address] [facility] [place], [address], 07/08/2022 09:11:37 07/07/20 22 07/08/2022 TSH RFX ON ABNOR MAL TO FREE T4 T4,free (direct) 2.04 NG/dL 0.82-1 .77 above high normal Not Available [facility] ([facility]) [address] [facility] [place], [address], 07/08/2022 09:11:37 07/07/20 22 07/08/2022 SEDIM ENTAT ION RATE- WESTE RGREN sedimentatio n rate-westerg nader 29 mm/HR 0-40 Not Available [facility] ([facility]) [address] [facility] [place], [address], 07/08/2022 09:11:38 07/07/20 22 07/08/2022 MAGNE SIUM magnesium 1.9 mg/dL 1.6-2. 3 Not Available [facility] ([facility]) [address] [place], [address], 07/08/2022 09:11:38 07/07/20 22 07/08/2022 C-ANGELY CTIVE PROTE IN, QUANT C-reactive protein, quant 4 mg/L 0-10 Not Available [facility] ([facility]) [address] [facility] [place], [address], 07/08/2022 09:11:39 07/26/20 22 07/26/2022 rapid SARS CoV + SARS CoV 2 Ag, QL IA, respi rator y speci men SARS CoV antigen Negati ve Not Available [address] [place], [address], 07/26/2022 14:33:35 07/26/20 22 07/26/2022 rapid flu (A+B) Flu negati ve Not Available [address] , [place], [address], 07/26/2022 14:34:18 07/26/20 22 07/26/2022 rapid flu (A+B) Type Both A & B Not Available [address] , [place], [address], 07/26/2022 14:34:18 08/15/20 22 08/15/2022 rapid SARS CoV + SARS CoV 2 Ag, QL IA, respi rator y speci men SARS CoV antigen Negati ve Not Available [address] , [place], [address], 08/15/2022 13:39:15 08/15/20 22 08/15/2022 rapid flu (A+B) Flu negati ve Not Available [address] , [place], [address], 08/15/2022 13:39:04 10/26/19 23 10/26/2022 micro album in/cr eatin ine, mass ratio , urine Microalbumin 10 Not Available [facility] [address] , [place], [address], 10/26/2022 08:33:54 10/26/19 23 10/26/2022 micro album in/cr eatin ine, mass ratio , urine Creatinine 200 Not Available [facility] [address] , [place], [address], 10/26/2022 08:33:54 10/26/19 23 10/26/2022 micro album in/cr eatin ine, mass ratio , urine Ratio <30 Not Available [address] , [place], [address], 10/26/2022 08:33:54 10/26/19 23 10/26/2022 urina lysis , dipst ick Leukocytes Trace Not Available [address] , [place], [address], 10/26/2022 14:11:33 10/26/19 23 10/26/2022 urina lysis , dipst ick Nitrite negati ve Not Available [address] , [place], [address], 10/26/2022 14:11:33 10/26/19 23 10/26/2022 urina lysis , dipst ick Urobilinogen .2 Not Available [address] , [place], [address], 10/26/2022 14:11:33 10/26/19 23 10/26/2022 urina lysis , dipst ick Protein Negati ve Not Available [address] , [place], [address], 10/26/2022 14:11:33 10/26/19 23 10/26/2022 urina lysis , dipst ick pH 6.5 Not Available [address] , [place], [address], 10/26/2022 14:11:33 10/26/19 23 10/26/2022 urina lysis , dipst ick Blood Negati ve Not Available [address] , [place], [address], 10/26/2022 14:11:33 10/26/19 23 10/26/2022 urina lysis , dipst ick Specific [place] 1.030 Not Available [address] , [place], [address], 10/26/2022 14:11:33 10/26/19 23 10/26/2022 urina lysis , dipst ick Ketone Negati ve Not Available [address] , [place], [address], 10/26/2022 14:11:33 10/26/19 23 10/26/2022 urina lysis , dipst ick Bilirubin Negati ve Not Available [address] , [place], [address], 10/26/2022 14:11:33 10/26/19 23 10/26/2022 urina lysis , dipst ick Glucose Negati ve Not Available [address] , [place], [address], 10/26/2022 14:11:33 10/26/19 23 10/26/2022 urina lysis , dipst ick Appearance Clear Not Available [address] , [place], [address], 10/26/2022 14:11:33 10/26/19 23 10/26/2022 urina lysis , dipst ick Color Yellow Not Available [address] , [place], [address], 10/26/2022 14:11:33 11/13/19 23 11/13/2022 rapid SARS CoV + SARS CoV 2 Ag, QL IA, respi rator y speci men SARS CoV antigen Negati ve Not Available [address] , [place], [address], 11/13/2022 15:53:16 11/13/19 23 11/13/2022 gluco brandy mcclain, blood Blood Glucose: mg/dl 169 Not Available [address] , [place], [address], 11/13/2022 15:53:03 03/20/20 23 03/20/2023 hospi lacey labs A1C 9.3 Not Available [facility] [address] [facility] , [place], [address], 03/20/2023 17:39:50 Result Notes None recorded. Problems Name Problem SNOMED Code Status Onset Date Resolution Date Notes Provider Name and Address Organization Details Recorded Time Chest pain 14135015 Completed 10/04/2020 Yecenia Ruiz MD [address], [place], [address], [place] - [facility] 2 11:57:20 Urinary tract infectio us disease 75406758 Completed 10/04/2020 Yecenia Ruiz MD [address], [place], [address], [place] [facility] 0 10:33:31 Cardiac catheter ization Completed 03/04/2020 Yecenia Ruiz MD [address], [place], [address], [place] [facility] 0 20:37:34 History of cardiac catheter ization 27110070905 100 Active Kee Escobedo null, [place] - [facility] 1 14:13:12 Chest pain 58876424 Completed 12/13/2021 Yecenia Ruiz MD [address], [place], [address], [place] - [facility] 2 11:57:20 Urinary tract infectio us disease 05289680 Active Kee Escobedo null, [place] - [facility] 1 14:13:12 Hyperlip idemia 23616714 Completed 201509/05/2021 Yecenia Ruiz MD [address], [place], [address], [place] [facility] 1 10:10:45 Essentia l hyperten raquel 74292661 Active 2015 Gisselle Mooney null, [place] - [facility] 3 14:33:08 Malignan t tumor of thyroid gland 263681966 Active 2015 Gisselle Mooney null[place] - [facility] 3 14:33:08 Irritabl e bowel syndrome 35037667 Active 2015 Gisselle Mooney null[place] - [facility] 3 14:33:07 Hiatal hernia 96184882 Active 2015 Gisselle Mooney null, [place] - [facility] 3 14:33:08 Fibromya lgia 907104925 Active 2015 Gisselle Mooney [place] - [facility] 3 14:33:08 Arthriti s 3040510 Active 2015 Gisselle Mooney [place] - [facility] 3 14:33:08 Degenera tion of interver tebral disc 32512682 Active 2015 Gisselle Mooney null[place] - [facility] 3 14:33:08 Osteopor osis 50579728 Completed 201507/20/2017 Removal Reason: she doesn't have it Yecenia Ruiz MD [address], [place], [address], [place] [facility] 7 16:13:45 Long-ter m drug therapy Active 2016 Gisselle Mooney null, [place] - [facility] 3 14:33:08 Gastroes ophageal reflux disease 232558209 Active 2016 Gisselle Mooney null[place] - [facility] 3 14:33:08 Type 2 diabetes mellitus 07841630 Active [address] Octavio godfrey, [place] - [facility] 3 14:33:08 Non-alco holic fatty liver 746171884 Active 2016 Gisselle Mooney null[place] - [facility] 3 14:33:08 Allergic conjunct ivitis 776374618 Active 2016 Gisselle Jesica null[place] - [facility] 3 14:33:08 History of polyp of colon 258958811 Active 2016 mom had colon ca Gisselle Mooney null[place] - [facility] 3 14:33:08 History of multiple allergie s 707504388 Active 2017 Gisselle Mooney [place] - [facility] 3 14:33:08 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 Procedures Surgical History Date Name Laterality Status Provider Name and Address Organization Details Recorded Time 03/12/20 23 Cardiac Cath completed Yecenia Ruiz MD [address], [place], [address], [place] - [facility] 03/13/2023 20:01:36 11/02/19 21 Cardiac Cath completed Yecenia Ruiz MD [address], [place], [address], [place] - [facility] 11/03/2020 07:59:19 10/25/19 21 Date of Last Mammogram completed Yecenia Ruiz MD [address], [place], [address], [place] [facility] 10/26/2020 08:10:46 07/20/20 20 [...] completed Yecenia Ruiz MD [address], [place], [address], [place] [facility] 01/21/2019 22:03:20 12/12/19 18 Cardiac Cath completed Yecenia Ruiz MD [address], [place], [address], [place] [facility] 12/16/2017 20:23:19 07/20/20 17 Most Recent Bone Density completed Yecenia Ruiz MD [address], [place], [address], [place] [facility] 10/04/2020 10:41:42 05/30/20 17 gastric sleeve completed Yecenia Riuz MD [address], [place], [address], [place] [facility] 07/12/2017 09:24:22 05/15/20 17 Most Recent Mammogram completed Yecenia Ruiz MD [address], [place], [address], [place] [facility] 07/12/2017 09:41:28 08/18/20 16 Date of Last Colonoscopy completed Selma Berry, RN [address], [place], [address], [place] [facility] 08/16/2021 10:07:57 12/10/19 16 thyroidectomy completed Yecenia Ruiz MD [address], [place], [address], [place] [facility] 08/13/2021 13:28:21 Tubal Ligation [...] completed Yecenia Ruiz MD [address], [place], [address], [place] [facility] 07/07/2022 10:45:23 tonsillectomy completed Yecenia Ruiz MD [address], [place], [address], [place] [facility] 08/26/2018 11:27:26 Carpal tunnel surgery completed Diana Yan [place] - [facility] 10/11/2018 15:14:54 Imaging Results None recorded. Procedure Notes None recorded. Medical Equipment None Reported. Allergies Allergen ID Allergen Name Allergen Category Reaction Reaction Severity Criticality Documentation Date Start Date Code Code System Note Provider Name and Address Organization Details Recorded Time 591723 pregabali n medicatio n Not available Not available Not available 01/28/20192016 98550 2 RxNorm Crystal Earlywine null, [place] - [facility] 9 14:29:47 665432 rosuvasta tin medicatio n cough Not available Not available 01/28/20192015 96488 2 RxNorm Crystal Earlywine null, [place] - [facility] 9 14:29:47 816680 pioglitaz one medicatio n Not available Not available Not available 01/28/20192017 47876 RxNorm Crystal Earlywine null, [place] - [facility] 9 14:29:47 078079 codeine medicatio n itching Not available Not available 01/28/20192014 2670 RxNorm Crystal Earlywine null, [place] - [facility] 9 14:29:47 303829 ramires extract food Not available Not available Not available 01/28/20192017 11504 73 RxNorm Crystal Earlywine null, [place] - [facility] 9 14:29:47 93051 Glycine max (substan e) environme nt,food,m edication Not available Not available Not available 07/14/20162011 99877 5007 SNOMED Not Available [facility] 6 10:03:55 20497 green ramires food Not available Not available Not available 07/14/20162011 Not Available [facility] 6 10:03:56 60406 metformin hydrochlo ride medicatio n facial swelling Not available Not available 07/14/20162008 45419 3 RxNorm Not Available [facility] 6 10:03:56 04610 Actos medicatio n rash Not available Not available 07/14/20162012 90820 2 RxNorm Not Available [facility] 6 10:03:56 21617 Product containin g angiotens in-conver ting enzyme inhibitor (product) medicatio n Not available Not available Not available 07/14/20162010 15832 009 SNHATTIE godfrey, [place] - [facility] 6 10:57:16 Medications [...] Disconti nued on: 04/12/20 16 8:42AM;U ser: allisons ;Est. Completi on: 03/24/20 16;Pharm acyVerif ied: [...] Disconti nued on: 12/27/19 16 9:55AM;U ser: houser c;Est. Completi on: 10/31/19 16;Print ed: 10/26/19 16 [...] nued on: 05/27/20 10 9:27AM;U ser: [place] t. Completi on: 03/30/20 10;Indic ation: Type 2 Diabetes [...] nued on: 04/12/20 16 9:14AM;U ser: corrina huynh;Est. Completi on: 07/11/20 16 Not Available Not Available [...] Disconti nued on: 10/31/19 11 4:58PM;U ser: rankrandyw; Est. Completi on: 01/09/20 11;Print ed: 10/10/19 [...] Irritabl e Bowel Syndrome - ([phone]);Neto Everett fied: 11/05/19 14 11:42AM Not Available Not [...] Disconti nued on: 12/12/19 12 9:19AM;U ser: Maureen st. Completi on: 12/15/19 12;Print ed: 12/05/19 [...] 50 mcg/actua tion nasal spray,rose marie pension [place] every day by nasal route as directed [...] Disconti nued on: 05/27/20 10 9:48AM;U ser: gored;Es t. Completi on: 03/30/20 10;Print ed: 11/30/19 10 Not Available Not Available Not Available Augmentin 500 mg-125 mg tablet take 1 tablet by oral route every 12 hours for 10 days 12/28 completed Augmenti n 500-125 mg oral tablet;R ecorded Status: Recorded on: 10/15/19 15 1:50PM;D iscontin ued Status: Disconti nued on: 12/29/19 15 4:14PM;U ser: houser c;Est. Completi on: 10/25/19 15;Print ed: 10/15/19 15 [...] Disconti nued on: 12/05/19 12 4:07PM;U ser: rankinw; Est. Completi on: 09/03/20 11 Not Available Not Available Not Available lancing device with lancets kit active Not Available Not Available Not Available Cymbalta 60 mg capsule,d elayed release take 1 capsule by oral route 2 times a day for 30 days 07/30 completed Cymbalta 60 mg oral capsule, delayed release( /IRMA);c omment: unable to afford;P rescribe Status: Prescrib [...] completed Not Available Not Available Not Available Quickflix 1 daily 10/11 completed Not Available Not [...] Available Dymista 137 mcg-50 mcg/spray nasal spray [place] 1 spray every day by nasal route [...] active Not Available Not Available Not Available Nurte ODT 75 mg disintegr ating tablet TAKE ONE (1) TABLET EVERY OTHER DAY BY MOUTH active Not Available Not Available No t Available FreeStyle Milagro 2 Sensor kit active Not Available Not Available Not Available FreeStyle Milagro 2 [place] active Not Available Not Available Not Available Vitals Date Recorded Body height Body mass index (BMI) Body weight Body temperature Respiratory rate Heart rate Oxygen saturation Oxygen saturation in Arterial blood by Pulse oximetry Systolic And Diastolic Provider Name and Address Organization Details Last Updated DateTime 3 160.02 cm 38.8 kg/m2 31548.7 3 g 98.6 [degF] 20 /min 58 [...] 150/96 mm[Hg] 140/86 mm[Hg] 140/84 mm[Hg] Chula Bennett [facility] 3 16:48:37 Date Recorded Body height Body mass index (BMI) Body weight Body temperature Respiratory rate Heart rate Oxygen saturation Oxygen saturation in Arterial blood by Pulse oximetry Systolic And Diastolic Systolic And Diastolic Provider Name and Address Organization Details Last Updated DateTime 2 160.02 cm 36.3 kg/m2 29946.1 4 g 98.5 [degF] 20 /min 58 /min 98 % 98 % 156/100 mm[Hg] 140/58 mm[Hg] Chula Bennett [facility] 2 11:14:51 Date Recorded Body height Heart rate Oxygen saturation Oxygen saturation in Arterial blood by Pulse oximetry Pain severity - 0-10 verbal numeric rating [Score] - Reported Body mass index (BMI) Body weight Body temperature Respiratory rate Systolic And Diastolic Provider Name and Address Organization Details Last Updated DateTime 2 160.02 cm 74 /min 98 % 98 % 8 36.5 kg/m2 67058.0 3 g 98.3 [degF] 18 /min 138/84 mm[Hg] Lizzy Washington [facility] 2 14:52:44 Date Recorded Body height Body temperature Heart rate Oxygen saturation Oxygen saturation in Arterial blood by Pulse oximetry Provider Name and Address Organization Details Last Updated DateTime 2 160.02 cm 102.6 [degF] 102 /min 93 % 93 % Chula Bennett [facility] 2 13:39:35 Social History Question Answer Notes LastModified by Organizat ion Details LastModified Time Tobacco Smoking Status Never Smoker Tanvi godfrey [place] - [facility] 08/04/2016 13:26:20 Able To Swim? Yes [...] not available 08/04/2016 Are you able to walk independently without assistance or assistive devices? YESWOREST Information not available 08/28/2019 Do you have difficulty doing errands alone? No Information not available 09/06/2016 Are you able to care for yourself independently? Yes Information not available 08/04/2016 What is your occupation? disability Information not available 08/04/2016 Do you have difficulty dressing, bathing, grooming, or toileting? No Information not available 09/06/2016 Do you [...] Diseases N Kidney Stones N Hyperthyroidism N Blood Transfusion N Rheumatoid arthritis N Erectile Dysfunction N amputation N Skin Lesions N COPD N Depression N Pneumonia N Incontinence N Murmur N Edema N Alzheimer's Disease N Migraine Headaches N Tobacco Abuse N Anxiety Disorder N Hemorrhoids N Muscle, Joint, or Bone Problems Y Obesity Y Vision or Eye Problems N Arthritis Y Restless Leg Syndrome N Polyps N Infertility N Mental Disorder N Carpal Tunnel N Acid Reflux (GERD) N Cancer N Varicosities N Stroke N Tendonitis N Crohn's Disease N Hypercholesterolemia N Skin Cancer N Headaches N Fibromyalgia N Anal Fissure N Irritable Bowel Syndrome [...] colitis N Cerebrovascular Disease Y Depression N Guillain-[place] N Sleep Apnea N Aneurysm N Bronchitis [...] completed Yecenia Ruiz MD [address], [place], [address], [place] - [facility] 10/05/2020 17:08:59 zoster recombinant 0 completed Yecenia Ruiz MD [address], [place], [address], [place] - [facility] 10/05/2020 17:08:59 Influenza, split virus, quadrivalent, preservative 7 completed Not Available [facility] 10/25/2019 03:54:37 influenza, unspecified formulation 4 completed Not Available [facility] 2023 00:26:22 influenza, unspecified formulation 4 completed Not Available [facility] 2023 00:26:22 influenza, unspecified formulation 6 completed Not Available [facility] 2023 00:26:22 pneumococcal polysaccharide PPV23 8 completed Not Available [facility] 10/25/2019 03:54:58 Influenza, split virus, quadrivalent, preservative 9 completed Not Available [facility] 10/25/2019 03:56:15 zoster live 9 completed Not Available [facility] 10/25/2019 03:56:02 Past Encounters Encounter ID Performer Location Encounter Start Date Encounter Closed Date Diagnosis/Indication Diagnosis SNOMED-CT Code Diagnosis ICD10 Code Diagnosis IMO Codes Diagnosis Note [id number] Tristan Chavez DO [address] [place] [id number] 08/04/2016 12:29:08 08/04/2016 14:14:14 Chest pain 40574352 R07.9 [id number] Tiffany Houser APRN [address] [place] [address] 09/06/2016 10:49:14 09/06/2016 11:28:02 Pain of shoulder region 91941245 M25.512 Neuropathy due to diabetes mellitus 520745645 E11.40 [id number] Tiffany Houser APRN [address] [place] [id number] 10/10/2016 09:53:23 10/10/2016 10:37:12 Anxiety 94440813 F41.9 Neuropathy due to diabetes mellitus 466588725 E11.40 Irritable bowel syndrome 71736789 K58.9 Fibromyalgia 716848159 M 79.7 Gastroesop hageal reflux disease 251831026 K21.0 Disease of liver 4708812 03 K76.9 Malignant tumor of thyroid gland 959031025 C73 Arthritis 9114750 M19.90 Type 2 arslan betes mellitus 48533541 E11.42 Hyperlipidemia 57887416 E78.5 Essential hypertension 02081842 I10 Osteoporosis 91808216 M8 1.0 Hiatal hernia 82235635 K 44.9 Degenerati on of intervertebral disc 84832767 M51.9 Diabetes mellitus 775660 09 E13.43 [id number] Tiffany Houser APRN [address] [place] [id number] 11/07/2016 10:04:43 11/07/2016 10:20:06 Long-term drug therapy 348893278 Z79.899 Irritable bowel syndrome 09894938 K58.9 Fibromyalgia 642277307 M 79.7 Gastroesop hageal reflux disease 582468074 K21.0 Disease of liver 3954189 03 K76.9 Malignant tumor of thyroid gland 338465703 C73 Arthritis 4306933 M19.90 Type 2 arslan betes mellitus 73258729 E11.42 Hyperlipidemia 12474018 E78.5 Essential hypertension 43045915 I10 Osteoporosis 04250819 M8 1.0 Degenerati on of intervertebral disc 02828946 M51.9 Hiatal hernia 13133327 K 44.9 [id number] Tiffany Houser APRN [address] [place] [id number] 11/28/2016 15:25:45 11/28/2016 15:52:10 Pain of shoulder region 56201865 M25.512 Pain in left arm 2027348 00 M79.561 [id number] Yamilet Kellogg MD [address] [place] [id number] 12/11/2016 17:25:32 12/11/2016 18:22:52 Abscess of skin and/or subcutaneous tissue 24288458 L02.91 Carpal king yeimi syndrome 16574140 G56.02 Viral gastroenteritis 11 2557859 A08.4 [id number] Tiffany Houser APRN [address] [place] [address] 01/09/2017 09:41:26 01/09/2017 10:43:41 Long-term drug therapy 414477865 Z79.899 Diabetes mellitus 678043 09 E11.9 [id number] Tiffany Houser APRN [address] [place] [id number] 04/12/2017 08:27:32 04/12/2017 09:07:49 Long-term drug therapy 703629370 Z79.899 Vitamin D deficiency 347 88539 E55.9 Allergic conjunctivitis 126209624 H10.13 [id number] Yecenia Ruiz MD [address] [place] [address] 07/12/2017 09:03:02 07/12/2017 10:01:24 Fibromyalgia 922710239 M79.7 Gastroesop hageal reflux disease 234300204 K21.9 Long-term drug therapy 698751634 Z79.899 Type 2 arslan betes mellitus 94376891 E11.42 Osteoporosis 26846801 M8 1.0 Non-alcoho lic fatty liver 549137369 K76.0 Vitamin D deficiency 347 96536 E55.9 Allergic conjunctivitis 521470749 H10.11 Seasonal a llergic rhinitis 183842725 J30.2 History of polyp of colon 571284821 Z86.010 Administra tion of influenza vaccine 14140459 Z23 [id number] Yecenia Ruiz MD [address] [place] [address] 08/17/2017 09:42:21 08/17/2017 10:36:04 Acute sinusitis 60746275 J01.90 Lesion of nasal mucosa 556824597 J34.89 [id number] Yecenia Ruiz MD [address] [place] [address] 10/05/2017 10:12:47 10/05/2017 11:12:05 Gastroesophageal reflux disease 455645744 K21.9 Hematochezia 736061727 K 62.5 [id number] Yecenia Ruiz MD [address] [place] [id number] 01/03/2018 09:54:48 01/03/2018 10:34:05 Type 2 diabetes mellitus 96249338 E11.42 Hyperlipidemia 98537573 E78.5 Essential hypertension 26500480 I10 Gastroesop hageal reflux disease 148726363 K21.9 Fibromyalgia 886070232 M 79.7 Administra tion of pneumococcal vaccine 82392831 Z23 [id number] Mark Tavera APRN [address] [place] [id number] 01/11/2018 10:11:53 01/11/2018 10:44:57 Acute frontal sinusitis 53817235 J01.10 Acute conjunctivitis 537 97706 H10.12 Lesion of nasal mucosa 970485689 J34.89 Patient has muciprocin 2% she is currently using for this, prescribed per Dr. Ruiz. [id number] Mark Tavera APRN [address] [place] [address] 01/24/2018 10:35:42 01/24/2018 11:34:53 Bacterial conjunctivitis 501467648 H10.9 Multiple environmental allergies 090206099 T78.49XS Multiple allergies [id number] Yecenia Ruiz MD [address] [place] [id number] 04/05/2018 09:44:00 04/05/2018 10:23:44 Fibromyalgia 885098040 M79.7 Gastroesop hageal reflux disease 266926465 K21.9 Type 2 arslan betes mellitus 01055942 E11.42 Hyperlipidemia 42417392 E78.5 Essential hypertension 74971450 I10 Arthritis 5910454 M19.90 Body mass index 30+ - obesity 449455425 Z68.36 Active or passive immunization 504846274 Z23 Screening mammography 24 176012 Z12.31 History of multiple allergies 615935520 Z91.09 [id number] Yecenia Ruiz MD [address] [place] [id number] 08/26/2018 10:52:28 08/26/2018 11:29:28 Acute pharyngitis 921989421 J02.9 Candidiasis of vagina 72 447568 B37.3 [id number] Pedro Tony MD [address] [place] [id number] 10/11/2018 14:50:12 10/11/2018 16:00:13 Pain of left hip joint 7891549896 96115 M25.552 Body mass index 30+ - obesity 353163608 Z68.34 [id number] Yecenia Ruiz MD [address] [place] [id number] 08/28/2019 15:28:32 08/28/2019 16:42:10 Fibromyalgia 137135127 M79.7 Irritable bowel syndrome 19735612 K58.9 Gastroesop hageal reflux disease 354265927 K21.9 Long-term drug therapy 928008770 Z79.899 Arthritis 2778850 M19.90 Type 2 arslan betes mellitus 32814299 E11.42 cont care per Endo Hyperlipidemia 99156012 E78.5 Essential hypertension 37022482 I10 Degenerati on of intervertebral disc 77871714 M51.9 Body mass index 30+ - obesity 513385888 Z68.35 Administra tion of influenza vaccine 12506714 Z23 Active or passive immunization 444145527 Z23 Pain in left foot 260791 5171 12360 M79.670 [id number] Yecenia Ruiz MD [address] [place] [id number] 09/09/2019 16:29:11 09/09/2019 18:09:39 Active or passive immunization 743219454 Z23 [id number] Maranda Stock APRN [facility] [address] [place] [address] 11/05/2019 12:01:08 11/05/2019 12:36:49 Pain in throat 353116723 R07.0 Cough 05696554 R05 Upper resp iratory infection 39543965 J06.9 [id number] Yecenia Ruiz MD [address] [place] [address] 01/29/2020 14:22:39 01/29/2020 15:41:52 Closed fracture of rib 43284762 S22.39XA Liver marcello r laceration with open wound into cavity 502312898 S36.114A Fracture o f transverse process of lumbar vertebra 598345161 S32.009A Adrenal gl and hematoma 822546340 E27.49 Fractured nasal bones 26 9155039 S02.2XXA Traumatic intracranial subdural hematoma with brief loss of consciousness 159837833 S06.5X9A Mallet finger 97554961 M 20.011 5th [id number] Yecenia Ruiz MD [address] [place] [address] 03/05/2020 09:41:29 03/05/2020 10:39:44 Increased liver function 36044094 R94.5 Liver enzy mes level above reference range 840694517 R74.8 Closed fra cture of rib 39698353 S22.39XA Liver marcello r laceration with open wound into cavity 907952602 S36.114A Fracture o f transverse process of lumbar vertebra 495912866 S32.009A Adrenal gl and hematoma 479491268 E27.49 Traumatic intracranial subdural hematoma with brief loss of consciousness 185345027 S06.5X9A Mallet finger 57600195 M 20.011 wear brace as much as she can - I bent the brace so the joint would be more in extension [id number] Yecenia Ruiz MD [address] [place] [address] 03/26/2020 09:20:01 03/26/2020 10:20:34 Closed fracture of rib 65916080 S22.39XA Liver marcello r laceration with open wound into cavity 330969773 S36.114A Fracture o f transverse process of lumbar vertebra 677965326 S32.009A Adrenal gl and hematoma 994934992 E27.49 Traumatic intracranial subdural hematoma with brief loss of consciousness 617596478 S06.5X9A Mallet finger 99495328 M 20.011 wear brace as much as she can - I bent the brace so the joint would be more in extension Muscle pain 77345032 M79 .10 Screening mammography 24 027067 Z12.31 New daily persistent headache 8686685739 86104 G44.52 [id number] Tete Cox MD [address] [place] [address] 07/13/2020 11:58:21 07/13/2020 12:48:45 Right flank pain 108133318 R10.9 UA in office is unremarkab le. Hx of kidney stones. I recommende d that she should go to the hospital emergency department (ER) right now for further evaluation and management . I offered transfer to ER via ambulance but patient declined that. Follow up with us after hospital discharge. Patient agrees with the above plan. Chronic back pain 194966 002 M54.9 Get XRS of L and T spines. Follow up with PCP Dr. Ruiz Numbness 17802081 R20.0 See above under headache - Headache 88386056 R51.9 Intermitte nt headaches and numbness over forehead and left side of face since trauma on 01.19.20. No known allergies to contrast or dye. Will get MRI of brain. Follow up with us in 1 to 2 days after MRI to discuss test results [id number] Yecenia Ruiz MD [address] 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 797224482 E11.3299 Mixed hyperlipidemia 267 328489 E78.2 Non-alcoho lic fatty liver 285228379 K76.0 Type 2 arslan betes mellitus 59484914 E11.42 cont care per Endo Screening mammography 24 562411 Z12.31 she has appt in Oct, 2020 Administra tion of influenza vaccine 68416076 Z23 Pain in both feet 462679 5193 8931002 M79.672 Myalgia/my ositis - multiple 295471622 M79.10 Active or passive immunization 306868080 Z23 Vaccination needed 41404 77068 84316 Z23 [id number] Yecenia Ruiz MD [address] [place] [address] 08/16/2021 08:25:57 08/16/2021 09:14:41 Coronary arteriosclerosis 59781132 I25.10 following with cardiology Essential hypertension 74598460 I10 controlled on meds Fibromyalgia 008025442 M 79.7 stable, doing well on meds Gastroesop hageal reflux disease 421716292 K21.9 controll on PPI Hyperlipidemia 89961205 E78.5 Malignant tumor of thyroid gland 344508501 C73 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 001345219 E11.3299 Mixed hyperlipidemia 267 587385 E78.2 on Praluent Non-alcoho lic fatty liver 163890246 K76.0 follows with Endo Type 2 arslan betes mellitus 18896800 E11.42 cont care per Endo Administra tion of influenza vaccine 90063726 Z23 Allergic conjunctivitis 467887297 H10.11 Low back pain 219615471 M54.50 Migraine 93672033 G43.90 9 Dysuria 06806409 R30.9 [id number] Yecenia Ruiz MD [address] [place] [address] 12/13/2021 13:39:18 12/13/2021 15:02:27 Chronic daily headache 6975339054 18926 R51.9 Migraine without aura 56 991380 G43.870 [id number] Yecenia Ruiz MD [address] [place] [address] 03/28/2022 10:45:40 03/28/2022 11:37:09 Acute sinusitis 31952703 J01.90 [id number] Yecenia Ruiz MD [address] [place] [address] 07/07/2022 10:02:30 07/07/2022 11:27:41 New daily persistent headache 1333583235 35143 G44.52 Vertigo 077376169 R42 [id number] Pedro Tony MD [address] [place] [address] 07/26/2022 14:25:54 07/26/2022 14:58:30 Suspected COVID-19 248836089 Z20.822 Influenza- like symptoms 172591119 R68.89 Lymphadenitis 60090919 I 88.9 Body mass index 30+ - obesity 260017928 Z68.36 [id number] Yecenia Ruiz MD [address] [place] [address] 08/15/2022 12:28:43 08/15/2022 15:49:42 Influenza-like symptoms 299262212 R68.89 [id number] Yecenia Ruiz MD [address] [place] [address] 10/26/2022 13:48:18 10/26/2022 14:40:55 Coronary arteriosclerosis 35642370 I25.10 following with cardiology Essential hypertension 82924154 I10 controlled on meds Fibromyalgia 396617538 M 79.7 stable, doing well on meds Gastroesop hageal reflux disease 908564012 K21.9 controlled on PPI Malignant tumor of thyroid gland 809653125 C73 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 900463059 E11.3299 Mixed hyperlipidemia 267 857339 E78.2 on Praluent Non-alcoho lic fatty liver 711171978 K76.0 follows with Endo Type 2 arslan betes mellitus 97745702 E11.42 cont care per Endo Migraine 67356827 G43.90 9 meds are helping Acute low back pain 2788 04048 M54.50 [address] acic back pain 929958954 M54.6 as above [id number] Yecenia Ruiz MD [address] [place] [address] 11/13/2022 15:09:28 11/13/2022 17:50:38 Coronary arteriosclerosis 58594814 I25.10 following with cardiology Essential hypertension 86875973 I10 controlled on meds Fibromyalgia 898685727 M 79.7 stable, doing well on meds Gastroesop hageal reflux disease 080201507 K21.9 controlled on PPI Mixed hyperlipidemia 267 378301 E78.2 on Praluent Non-alcoho lic fatty liver 980330792 K76.0 follows with Endo Type 2 arslan betes mellitus 78750221 E11.42 cont care per Endo Migraine 76874076 G43.90 9 meds are helping Dizziness 658586884 R42 Health Concerns Section Related Observation LastModified by Organization Detai ls LastModified Time None Recorded Concern Status LastModified by Organization Details LastModified Time None Recorded Advance Directives Directive N: Payers Insurance Date Sequence Insurance Name Policy Number Policy Jacobsen Covered Member ID Jacobsen Member ID Guarantor Name 08/16/2021 1 [place] Angeles Machado [id number] Angeles Machado 10/26/2022 1 [place]/A DVANTAGE - HMO) [id number] Angeles Machado [id number] Angeles Machado 08/16/2021 [place] [employer] Angeles Machado 08/16/2021 1 [place] Angeles Machado [id number] Angeles Machado 11/13/2022 2 MEDICAID-[facility] - FFS/TRADITION AL Angeles Machado [id number] Angeles Machado 08/16/2021 [place] [facility] (MEDICARE) Angeles Machado [id number] Angeles Machado 11/03/2022 1 HU[employer]NA - [employer]ICECARE (PPO) Angeles Machado [id number] Angeles Machado 11/13/2022 1 [employer] (MEDICARE REPLACEMENT/A DVANTAGE - PPO) Angeles Machado [id number] Angeles Machado Notes Date Note Type Note [...] made CURRY's worse Yecenia Ruiz MD [address], [place], [address], [facility] - [facility] 07/07/2022 11:26:50 07/26/2022 text/html C/O ST, head congestion, swollen cervical glands 4 days. Gets every year and needs abt. Pedro Tony MD [address], [place], [address], [facility] - [facility] 07/26/2022 15:02:19 08/15/2022 text/html she has had 2 days of fever, chills, body aches, cough, congestion and SOB hurts all over. decreased appetite but drinking Yecenia Ruiz MD [address], [place], [address], [facility] - [facility] 08/15/2022 15:43:10 10/26/2022 text/html here with back pain x 2 weeks. no known injury. taking ibu 800, MR, heat, roll on lotions, or meloxicam pain is diffuse low and mid back hasn't been seen for a routine care visit since Aug, she has been seeing machine load clerk and the nasal sprays are helping follows with Dr Taylor for DM goes to eye doc regularly last A1c - she doesn't remember taking calcium and vit D not checking BP at home Dr Cunningham is filling her meds her glucose monitor went off - 58. she tested and was 85 Yecenia Ruiz MD [address], [place], [address], [facility] - [facility] 10/26/2022 18:57:40 11/13/2022 text/html seen 2 weeks ago with back pain. she was treated and referred to PT now has dizziness and a CURRY and hip pain. her head started feeling bad earlier today.. she went to [place] to eat and felt worse so came here. her vision is fuzzy B she last ate at [facility] also having mid back pain and while she was here she felt that her L arm was jerking. L sided CP that she felt with deep breaths. her heart is racing reviewed recent labs she did per Endo recently she hasn't been seen for a routine care visit since Aug, she has been seeing machine load clerk and the nasal sprays are helping follows with Dr Taylor for DM. her A1c 8.9% Yecenia Ruiz MD [address], [place], [address], [place] [facility] 11/13/2022 19:02:26 OBGyn Episode No OBEpisode recorded.
--- NOTE | 2025-07-03 10:45 | CT_ITS ---
FINAL REPORT TECHNIQUE: Thin section axial CT images with coronal and sagittal reformats were performed before and after administration of IV contrast. This study was performed with techniques to keep radiation doses as low as reasonably achievable (ALARA). Individualized dose reduction techniques using automated exposure control or adjustment of mA and/or kV according to the patient''s size were employed. CLINICAL HISTORY: evaluate anterior diabetic foot ulcer. left foot, COMPARISON: 06/18/2024 FINDINGS: There is orthopedic hardware securing the posterior subtalar joint. The joint appears fused. Orthopedic staple secures the calcaneocuboid joint. However, the calcaneocuboid joint line remains visible. There is an orthopedic screw securing the talonavicular joint with the joint line remaining visible. Findings are similar to the prior study. Diffuse osteopenia is noted. The medial margins of the talonavicular screws extend nearly to the skin surface, well-seen on images 39 through 42 of series 604. There is a well-corticated ossific density inferior to the medial malleolus which may be due to old trauma and is unchanged from the prior study. There is no evidence of bony erosion. A large plantar spur is present. IMPRESSION: Stable postoperative/chronic changes without acute findings. Reviewed, Interpreted and Dictated by Jt Cole MD Transcribed by Linda Simmons Authenticated and [facility]
[2025-07-03] MEDS: SODIUM CHLORIDE 0.9% 10ML SYR (RAD ONLY) 10 ML IV (10:47)
[2025-07-03] MEDS: IOPAMIDOL-370 (76%);100ML BOTTLE 75 ML IV (10:47)
== END 2025-07-03 23:59 | disposition home or self-care (01) ==
LOC: RAD 10:15
PROVIDERS: PCP Nurse Practitioner Family; Visit Provider Podiatrist
DX: M85.872 Other specified disorders of bone density and structure, left ankle and foot (principal); E11.621 Type 2 diabetes mellitus with foot ulcer; L97.529 Non-pressure chronic ulcer of other part of left foot with unspecified severity; Z98.890 Other specified postprocedural states
CPT/HCPCS: 73702; Q9967

== ENCOUNTER 2025-08-05 09:48 | Day surgery (SDC) | payer MEDICARE, MEDICAID, SELFPAY ==
[2025-07-28 10:37] VITALS: BMI 32.9
[2025-08-05] VITALS (9 sets, daily range): BP systolic 151–173; BP diastolic 68–88; PULSE 55–74; RESP 14–18; TEMP 36.2–43; O2SAT 95–98
[2025-08-05] MEDS: 0.9 % SODIUM CHLORIDE 1000ML 1,000 ML 25 ML IV (10:20)
[2025-08-05 10:32] LABS: POC Glucose,Bedside 103 gm/dL (70-110)
[2025-08-05] MEDS: VANCOMYCIN/WATER FOR INJ (PEG) 1.25 GM/250 ML PIGGYBACK IV (11:50)
[2025-08-05] MEDS: CEFEPIME HCL 2 GM in 0.9 % SODIUM CHLORIDE 100 ML IV (12:05)
[2025-08-05] MEDS: GENTAMICIN 80 MG/2 ML VIAL (12:07)
[2025-08-05] MEDS: VANCOMYCIN 1000MG VIAL 1000 MG (12:08)
--- NOTE | 2025-08-05 12:49 | XR_ITS ---
FINAL REPORT CLINICAL HISTORY: HARDWARE REMOVAL, TALONAVICULAR REVISION FINDINGS: FLUOROSCOPY LESS THAN 1 HOUR HISTORY: Fluoroscopy guidance. FINDINGS: Fluoroscopic guidance was provided for hardware removal, talonavicular revision. Three spot films were obtained. A total of 1:01 minutes of fluoroscopy time were used. DAP: 2.76 mGy IMPRESSION: As above. Reviewed, Interpreted and Dictated by Jt Cole MD Transcribed by Linda Simmons Authenticated and [facility]
--- NOTE | 2025-08-05 13:12 | EXP.OP.NOTE ---
Date of procedure: 08/05/25 Pre-op Diagnosis:: Left foot diabetic foot ulcer Retained orthopedic hardware Hx left foot Charcot Left foot navicular fracture nonunion Post-op Diagnosis:: Same Procedure performed:: Left open reduction internal fixation navicular (24862), repair of fracture nonunion Left foot excision of lesion (30294) Wound debridement (84517) Hardware removal (24258) Excision of lipoma, application of amniotic graft Surgeon:: Cori Soria DPM ADJUNCT ENGLISH INSTRUCTOR:: Jama Yin Anesthesia: GETA and regional Estimated blood loss (mL): 20 Clinical Note:: Patient is a 65-year-old diabetic female who presents with left lateral skin lesion. Patient has issues healing the spot since surgery. We got the wound closed then it rubbed on shoe gear and turned into a diabetic foot ulcer. We once again got that spot healed. It has recurred several times now. We discussed with the new lobulated appearance, recommend skin biopsy to evaluate the wound for DFU, pyogenic granuloma versus neoplasm/malformation in diabetic patient (r/o SCC). Patient also has palpable hardware to the medial foot. She reports no pain when not wearing shoes however when she tries to wear shoes it rubs and due to her fragile skin, concerned that it will also break down to an ulcer. Labs x-rays and CT left foot reviewed and discussed with patient. Latest wound culture from 06/01/25 grew Staph aureus susceptible to doxycycline which she took 06/04-06/18/25. She has exhausted conservative care including: modification of shoe gear, modification of activity, immobilization fracture boot, local wound care, antibiotics, off loading/padding, ice/heat, elevation, compression therapy. We discussed surgery due to persistent wound and risk of infection. Patient also has poor bone quality due to history of Charcot and osteopenia. We discussed with hardware removal, IntraOp complications such as bone fracturing. Given her history of navicular fracture/fragmentation with a Charcot, high risk for fracture. Discussed ORIF if IntraOp fracturing occurs. Common risks and benefits were discussed including but not limited to: damage to blood vessels and nerves, bleeding, infection, wound complications, delayed, mal or non-union of bone, post-traumatic arthritis, need for further surgery, implant failure, incomplete removal of hardware/implant, need for removal of implant, prolonged or permanent swelling of the extremity, prolonged or permanent pain or deformity, CRPS/RSD, DVT/PE, and anesthetic complications including . No guarantees were given. All questions fully answered. The patient verbalized understanding and agreed to proceed with surgery. Verbal and written consent was obtained. Cardiac clearance granted. Operative findings:: Left lateral diabetic foot ulcer. Pre: 100% granular, 0.2 x 0.2 x 0.1cm. No increased warmth, ascending cellulitis noted. Wound itself looks granular but lobulated. Full-thickness wound excision through skin and subcutaneous tissue. No underlying purulence, malodor, or drainage. Wound sent for pathology specimen. There was a FiberWire suture knot noted underneath this aspect of the foot which was resected. Left foot lipoma ~1cm round superior to the peroneal tendons, resected and sent for pathology specimen. Palpable screw head noted to the medial foot over the navicular. The screw was removed without complication. No purulence or obvious signs of bone infection. Screw/residual bone sent for culture. Separate incision made over the dorsal aspect of the navicular. Bone soft consistent with history of Charcot and osteoporosis. Prior fracture noted to be partially healed. Navicular fracture site fenestrated. Bone graft inserted and ORIF performed. Patient will need to resume the bone stimulator during the postoperative period due to the navicular fracture nonunion. Operative note:: On this date and time patient was deemed an appropriate surgical candidate. Pre-op left regional nerve block performed by anesthesia. With informed consent signed, the patient was taken to the operating theater. The patient was positioned supine. General anesthesia induced. Tourniquet was applied to the left mid calf at 225 mmHg. The left lower extremity was prepped and draped in normal sterile fashion. IV Vanco, Cefepim given. Left foot hardware removal: Attention was directed to the medial aspect of the navicular where a palpable screw head was noted. A small linear incision was made over the palpable screw head under intraoperative fluoroscopy. Full-thickness dissection down to the level of the screw head. It was removed without complication. Imaging was checked on IntraOp x-ray and there was a small area of radiolucency noted where the prior Charcot navicular fracture had occurred. No obvious signs of infection to the bone. But hardware with residual bone debris was sent for culture to rule out infection. Wound was flushed with gentamicin irrigation. Vicryl used to reapproximate deep tissue. Nylon used to reapproximate skin. Left open reduction internal fixation navicular/repair fracture nonunion: A separate incision was then made over the dorsal aspect of the navicular. Dissection through skin and subcutaneous tissue with care to maintain surgical hemostasis and safely retract neurovascular structures. Full-thickness dissection then to the level of the bone. The navicular fracture site was correlated on IntraOp x-ray and directly visualized. At least half of the fracture did appear to be healed, however there is still an area that was not healed. Site flushed with gentamicin. No signs of infection noted. A smooth K wire was used to fenestrate the navicular fracture site to stimulate healthy bleeding bone. Next a [employer] Groupex staple sizing guide was inserted and trialed under intraoperative fluoroscopy. Due to the small bone defect some allograft was inserted into the fracture. In standard technique a 15 mm staple was inserted just distal to the retained talonavicular screw. Staple inserted to give some compression and reinforce the fracture site. Vicryl and nylon used to reapproximate tissue. Left foot excision of lesion, wound debridement: Attention was then directed to the lateral foot where prior DFU was noted. There was now a lesion that was granular and lobulated. An elliptical incision was mapped out over the lesion. Utilizing 15 blade and forceps full-thickness wound debridement and excision of lesion was performed. No underlying signs of infection noted. There was a piece of FiberWire under the wound which was removed. Area flushed with gentamicin irrigation. Excision of lipoma, application of amniotic graft: Wound site was explored and there was a palpable 1 cm round soft tissue mass noted just superior to the FiberWire and peroneal tendons. Utilizing 15 blade and forceps the suspected lipoma was removed and sent to pathology as a specimen. Wound was flushed again. Due to the poor skin quality at this area, history of wound/ulcers and irregular skin lesion, decision made to use amniotic graft. A 2x3cm amniotic graft was applied to the soft tissue prior to closure to prevent scar tissue and adhesions and help decrease nerve symptoms. Subcutaneous tissue reapproximated with 3-0 Vicryl in a running fashion. Nylon used to reapproximate the skin in an interrupted fashion. The skin was cleansed. Xeroform, betadine soaked gauze, dry sterile dressing was applied to the foot. The patient was awoken from anesthesia and transferred to recovery with vital signs stable and neurovascular status intact. Patient appeared to tolerate procedure and anesthesia well without complication. Materials: Vilex staple [id number], DBM crunch x1 (5cc), Paligen amniotic membrane x2 (2x3cm) Discharge/Plan: Patient is to maintain dressing clean dry and intact. Polar pack/ice behind the knee and elevate on two pillows. Non weight bearing to LLE with walker/RKS/wheelchair. Obtain post op films, 3 views left foot. Take post-op oral Doxy as directed. Resume bone stimulator when able. Follow up in one week for skin check, dressing change. Tourniquet time (min): 57 Condition: stable Disposition: same day Specimens:: Micro: Left foot screw/bone culture Path: Left foot wound, Left medial foot soft tissue mass, Left lateral foot lipoma Complications:: None
[2025-08-05 13:43] LABS: POC Glucose,Bedside 117 gm/dL (70-110)
--- NOTE | 2025-08-05 14:30 | XR_ITS ---
FINAL REPORT CLINICAL HISTORY: s/p hardware removal COMPARISON: CT journal entry audit clerk 07/03/2025 FINDINGS: LEFT FOOT Three views of the left foot demonstrate forced screws and 2 staple securing the intertarsal joints, similar to CT from 07/03/2025. No acute fracture or dislocation. The visualized joint spaces are normally aligned. Diffuse soft tissue swelling is noted. There is subcutaneous edema laterally which may be related to recent surgery. IMPRESSION: Soft tissue swelling and subcutaneous edema without acute bony abnormality. Stable appearance of the hardware. Reviewed, Interpreted and Dictated by Jt Cole MD Transcribed by Linda Simmons Authenticated and [facility]
--- NOTE | 2025-08-07 07:46 | EXP.ANES.II ---
[facility] Anesthesia Record Part II Anesthesia Record Part II Discharge Time: 13:50 Destination: Surgical Day Care (OP Surgery) PACU nurse assessment reviewed?: Yes Patient Condition:: Good Anesthesia Complications:: None Swallowing reflex intact?: Yes Airway Patency: Patent Cyanosis?: No Blood Pressure: 171/80 SaO2: 95 Respiratory Rate: 14 Pulse Rate: 64 Temperature: 97.2 F Mental Status: Alert & Oriented Pain level:: 0 Nausea and/or vomitting:: None Intake, IV Amount: 0 Hydration: Adequate
--- NOTE | 2025-08-07 07:47 | EXP.ANES.CKL ---
[facility] Disclaimer: The information contained in this section may have been updated after the patient was seen, as this information can be updated by other users. Medical History (Updated 08/06/25 @ 14:26 by Georgette Bravo MD) Hydrosalpinx Major depressive disorder Generalized anxiety disorder SATYA (obstructive sleep apnea) Anxiety Elevated liver enzymes CAD (coronary artery disease) Posterior tibial tendon dysfunction (PTTD) of left lower extremity Nausea Abdominal pain Dysphagia Enlarged lymph nodes Nodule of soft tissue Class 1 obesity Diabetes mellitus with diabetic neuropathy Osteoarthritis of left foot Posterior tibial tendinitis of left lower extremity Lymphadenopathy History of thyroid cancer Low TSH level Hypothyroidism (acquired) Screening for colon cancer GERD (gastroesophageal reflux disease) Hyperlipidemia White matter disease Fibromyalgia Asthma Sleep apnea Migraine Obesity, Class II, BMI 35-39.9 Synovitis of left ankle Rupture of tibialis posterior tendon Acquired pes planus of both feet Chest pain Cholecystectomy planned Hypothalamic hypothyroidism Arthritis Thyroid cancer Diabetes mellitus Hypertension Atypical chest pain Right lower lobe pneumonia Surgical History History of carpal tunnel surgery of right wrist History of carpal tunnel surgery of left wrist History of partial hysterectomy Status post left foot surgery History of colonoscopy History of esophagogastroduodenoscopy (EGD) Hx of heart artery stent H/O gastric sleeve History of foot surgery History of heart artery stent S/P foot surgery, right Family History Mother Diabetes Cancer Father Cancer Hypertension Dementia Grandmother Alzheimer's dementia, late onset Social History Smoking Status: Never smoker second hand exposure: No alcohol intake: never counseling given: No substance use type: marijuana counseling given: No (she is trying some of the gummies; cause she can't sleep) current occupational status: disabled Travel in the last 8 weeks?: None adopted: No caregiver/support person: No foster care: No household members: family housing: house lives independently: No marital status: number of children: 3 number of grandchildren: 2 education level: college service: No 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[employer]; 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 caffeine: Yes physical activity: none special ameya needs: No working smoke detector in home: Yes fire extinguisher in home: Yes carbon monox detector in home: No firearms in home: No do you feel safe at home: Yes victim of physical abuse: No victim of emotional abuse: No victim of sexual abuse: No would you like helpful sources: No [facility] Anesthesia Checklist Patient Identification Patient Identification: Arm Band Structural Data Admitted From: Home Planned Operative Procedure/s: Left Foot Hardware Removal/Wound Debridement Consent for Planned Operative Procedure(s) Verified: Yes Verified Documents: Surgical Consent and History and Physical NPO Status Verified Time NPO: 00:00 Additional verifications Anesthesia Reactions: No Hx Blood Transfusions: No Blood Transfusion Reaction: No Airway Assessment Mallampati Score:: Class II C-Spine Mobility Assessed: Yes TMJ Mobility Assessed: Yes Neurological Assessment Level of Consciousness: Awake, Alert and Appropriate Anesthesia Plan Anesthesia Risk discussed: Yes Anesthesia Plan: Verified ASA Class: III Anesthesia Type: General w/block (Left Popliteal/Adductor Canal. Risks/benefits explained. Pt verbalized understanding) Preoperative Comments Pre-Operative Comments: Late Entry
--- NOTE | 2025-08-07 07:49 | P.PNANES_ITS ---
[facility] Anesthesia Record Part I Anesthesia Record I Intake, IV Amount: 800 Hydration: Adequate Estimated blood loss (mL): 20 Urine output (mL): 0 Blood Products used (#): none Blood Pressure: 161/76 SaO2: 94 Pulse Rate: 81 Airway Patency: Patent Respiratory Rate: 12 Temperature: 97.2 F Patient is:: Drowsy and Stable Stable to PACU at:: 13:20 Comments:: Late Entry
[2025-08-07 07:50] VITALS: BP 161/76; PULSE 81; RESP 12; O2SAT 94
[2025-08-07 07:51] VITALS: TEMP 36.2
[2025-08-07 07:52] VITALS: BP 171/80; PULSE 64; RESP 14; TEMP 36.2; O2SAT 95
== END 2025-08-05 15:00 | disposition home or self-care (01) ==
PROVIDERS: PCP Nurse Practitioner Family; Visit Provider Podiatrist
PROC: (CPT 11042; principal; 2025-08-05 11:15)
DX: D36.10 Benign neoplasm of peripheral nerves and autonomic nervous system, unspecified (principal); L73.8 Other specified follicular disorders; S92.902K Unspecified fracture of left foot, subsequent encounter for fracture with nonunion; E11.621 Type 2 diabetes mellitus with foot ulcer; L97.529 Non-pressure chronic ulcer of other part of left foot with unspecified severity; I25.10 Atherosclerotic heart disease of native coronary artery without angina pectoris; E11.40 Type 2 diabetes mellitus with diabetic neuropathy, unspecified; I10 Essential (primary) hypertension; E03.9 Hypothyroidism, unspecified; M19.072 Primary osteoarthritis, left ankle and foot; L84 Corns and callosities; G62.9 Polyneuropathy, unspecified; D49.2 Neoplasm of unspecified behavior of bone, soft tissue, and skin; L98.0 Pyogenic granuloma; T84.7XXA Infection and inflammatory reaction due to other internal orthopedic prosthetic devices, implants and grafts, initial encounter; M96.0 Pseudarthrosis after fusion or arthrodesis; M14.672 Charcot's joint, left ankle and foot; E66.811 Obesity, class 1; Z87.81 Personal history of (healed) traumatic fracture; Z88.8 Allergy status to other drugs, medicaments and biological substances; Z88.6 Allergy status to analgesic agent; Z79.82 Long term (current) use of aspirin; Z79.85 Long-term (current) use of injectable non-insulin antidiabetic drugs; Z79.4 Long term (current) use of insulin; Z68.30 Body mass index [BMI] 30.0-30.9, adult; X58.XXXD Exposure to other specified factors, subsequent encounter
CPT/HCPCS: 11042; 11422; 20680; 28465; 73620; 73630; 76000; 82962; 87070; 87205; 88304; 88305; 96374; C1713; J0665; J0692; J1100; J1580; J2003; J2250; J2405; J2704; J3010; J3373; J3375; J7030; Q4173

== ENCOUNTER 2025-08-20 14:35 | Outpatient (CLI) | payer MEDICARE, MEDICAID, SELFPAY ==
--- OUTSIDE RECORDS SUMMARY | 2025-07-09 10:40 | XMS_ITS | Encounter Summary ---
Author Organization [place] [address] Care Team Providers Care Dental Sales Representative Name Role Phone Chris Serra MD Unavailable [phone] Reason for Visit * Reason Comments Diabetes Type 2 Encounter Details Date Type Department Care Team (Late st Contact Info) Description 07/09/2025 11:40 AM EDT Office Visit [facility] [place] 1500 [facility] [address] [place], [place] [phone] Rojas Cunningham MD [address] [email or web address] [facility] [address] [place] [phone] Dyslipidemia associated with type 2 diabetes [...] therapy plan of the specified type found. Czech Score is 4 Has 3 children Allergic [...] with type 2 diabetes mellitus (HCC) - [place] CONTINUOUS GLUCOSE MONITORING ANALYSIS I&R - C-REACTIVE [...] Description 01/07/2026 3:40 PM EDT Office Visit [facility] [place] [address] [phone] Rojas Cunningham MD [address] [phone] Scheduled Orders Name Type Priority Associated Diagnoses Orde r Schedule [place] CONTINUOUS GLUCOSE MONITORING ANALYSIS I&R [place] Charge Routine Dyslipidemia associated with type 2 [...] 07/01/2025 added in this encounter Care Teams Dental Sales Representative Relationship Specialty Start Date End Date Chris Serra MD [address] [facility] [place] [address] Physician Internal Medicine-Cardiovascular Disease 01/16/13 documented as of this encounter
--- OUTSIDE RECORDS SUMMARY | 2025-08-20 14:39 | XMS_ITS | Encounter Summary ---
Author Organization [place] [address] Care Team Providers Care Spar Machine Operator Name Role Phone Chris Serra MD Unavailable [phone] Reason for Visit * Reason Comments Medication Refill Encounter Details Date Type Department Care Team (Late st Contact Info) Description 07/04/2025 Refill [facility] [address] [facility] [address] [place], [place] [id number] Lissy Sagastume, ANJANA [address] [place] [address] Medication Refill Social History Tobacco Use Types Packs/Day Years [...] Assessment Author No 05/31/2017 12:29 PM EDT Bo, D geraldine Jose Antonio, RN * Does this person have serious [...] Peng Soriano RN documented in this encounter Ordered Prescriptions Prescription Sig Dispense Quantity Refills Last Filled Start Date End Date ergocalciferol (DRISDOL) 1,250 mcg (50,000 unit) Oral CapsuleIndications :Vitamin D deficiency TAKE 1 CAPSULE BY MOUTH TWICE WEEKLY 8 Capsule 11 07/07/2025 documented in this encounter Miscellaneous Notes * Telephone Encounter - Nubia Castellon NA - 07/06/2025 8:14 AM EDT Last OV-02/23/25 Next OV-07/09/25 Refill sent to patient's pharmacy. documented in this encounter Plan of Treatment Upcoming Encounters Date Type Department Care Team (Late st Contact Info) Description 01/07/2026 3:40 PM EDT Office Visit [facility] [place] [address] [facility] [address] [place] [phone] Rojas Cunningham MD [address] [facility] [address] [place] [id number] documented as of this encounter Goals Goal Patient Goal Type Associated Problems Recent Progress Patient-Stated? Author Blood Pressure < 140/90 Blood Pressure 120/71(2024 12:05 PM EDT) No Jigna Dove LCSW BMI (Calculated) < 30 General 33.1(07/09/20 12:05 PM EDT) No Jigna Dove LCSW Maintain a healthy diet, exercise regularly and maintain an ideal body weight General No Jigna Dove LCSW HEMOGLOBIN A1C < 7.0 Result Component 7.2( 11:14 AM EDT) No Jigna Dove LCSW documented as of this encounter Visit Diagnoses Diagnosis Vitamin D deficiency Unspecified vitamin D deficiency documented in this encounter Discontinued Medications Medication Sig Discontinue Reason Start Date End Da te ergocalciferol (DRISDOL) 1,250 mcg (50,000 unit) Oral CapsuleIndications:Vitam in D deficiency TAKE 1 CAPSULE BY MOUTH TWICE WEEKLY 07/15/2024 07/06/2025 documented as of this encounter Care Teams Spar Machine Operator Relationship Specialty Start Date End Date Chris Serra MD [address] [place] [address] [place] [address] Physician Internal Medicine-Cardiovascular Disease 01/16/13 documented as of this encounter
--- OUTSIDE RECORDS SUMMARY | 2025-08-20 14:39 | XMS_ITS | Encounter Summary ---
Author Organization [place] [address] Care Team Providers Care Voip Engineer Name Role Phone Chris Serra MD Unavailable [phone] Reason for Visit * Reason Onset Date Comments Labs Only 06/22/2025 Encounter Details Date Type Department Care Team (Late st Contact Info) Description 06/22/2025 Telephone [facility] [address] [facility] [address] [place], [place] [phone] Rojas Cunningham MD [address] [employer] [facility] [address] [place] [phone] Labs Only Social History Tobacco Use [...] signatures. Please obtain signatures and fax to [facility] at [phone] documented in this encounter Plan of Treatment Upcoming Encounters Date Type Department Care Team (Late st Contact Info) Description 01/07/2026 3:40 PM EDT Office Visit [facility] [address] [facility] [address] [place] [phone] Rojas Cunningham MD [address] [facility] [address] [place] [address] documented as of this encounter [...] on filedocumented in this encounter Care Teams Voip Engineer Relationship Specialty Start Date End Date Chris Serra MD [address] [facility] [address] [place], [place] [address] Physician Internal Medicine-Cardiovascular Disease 01/16/13 documented as of this encounter
--- OUTSIDE RECORDS SUMMARY | 2025-08-20 14:39 | XMS_ITS | Clinical Summary ---
Author Organization [facility] Address [address] [place] [address] Care Team Providers Care Artificial Limb Fitter Name Role Phone Tiffany Mayen Peng Primary Care Provider Source Comments This information has been disclosed [...] therelease of HIV test results or diagnoses. [id number] Allergies No known active allergies Immunizations [...] on file Insurance MEDICAID [place] Care Teams Artificial Limb Fitter Relationship Specialty Start Date End Date Tiffany Mayen [address] [facility] [address] [address] PCP - General 07/12/16
--- OUTSIDE RECORDS SUMMARY | 2025-08-20 14:40 | XMS_ITS | Clinical Summary ---
Author Organization Healthcare Address [address] [place] [address] Care Team Providers Care Beef Cattle Specialist Name Role Phone Unavailable Primary Care Provider [...] 09/09/2009 [facility]-Zoster Vaccines (1 of 2) 2012 [facility]-[id number]-13 Vaccine (1 - season) 2025 [facility]-Influenza Vaccine [...]
--- OUTSIDE RECORDS SUMMARY | 2025-08-20 14:40 | XMS_ITS | Data Portability ---
Author Organization [facility] Address [address] [place] [address] Care Team Providers Care Decal Transferrer Name Role Phone ANEUDY KRISHNAN Referring Provider BINH HOOPER Referring Provider REE HARRIS Referring Provider Unavailable Painter Set Assessment Encounter Date Assessment Date Assessment LastModified by Organization Details LastModified Time 11/13/2022 11/13/2022 NTG 0.4 mg SL given at 1619 45 mins spent one-on-one with pt nguttman Not available 11/13/2022 19:02:16 Plan of Treatment Reminders Order Date Submit Date Provider Last Modified By Organization Details Last Modified Time Details Appointments None recorded. Lab glucose, fingerstic k, blood [address] , [place], [address], 3 19:02:18 rapid SARS CoV + SARS CoV 2 Ag, QL IA, respirator y specimen [address] , [place], [address], 3 19:02:18 urinalysis , dipstick [address] , [place], [address], 3 18:19:28 microalbum in/creatin ine, mass ratio, urine 2022 023 [facility], [address] [place] [address] , [place], [address], 3 18:19:28 rapid flu (A+B) 2021 022 [facility], [address] [place] [address] , [place], [address], 2 14:19:33 rapid SARS CoV + SARS CoV 2 Ag, QL IA, respirator y specimen 2021 022 [facility], [address] [place] [address] , [place], [address], 2 14:19:33 rapid flu (A+B) 2021 022 [facility], [address] [place] [address] , [place], [address], 2 15:01:08 rapid SARS CoV + SARS CoV 2 Ag, QL IA, respirator y specimen 2021 022 [facility], [address] [place] [address] , [place], [address], 2 15:01:08 BMP, serum or plasma 2021 DIAN[facility], [address], [place], [place], [address], 2 09:11:37 ESR (erythrocy te sedimentat ion rate), blood 2021 DIAN[facility]YS [facility], [address], [place] [address], [place], [address], 09:11:38 CBC w/ auto diff 2021 DIAN[facility]YS [facility], [address], [place], [place], [address], 09:11:36 magnesium, serum or plasma 2021 DIAN[facility], [address], [place], [place], [address], 09:11:38 TSH, ultra-sens itive, serum 2021 DIAN[facility]YS [facility], [address], [place], [place], [address], 09:11:37 C reactive protein, QN, serum or plasma 2021 DIAN[facility]YS [facility], [address], [place], [place], [address], 09:11:39 Referral physical therapist referral 2022 023 [facility], [address] [place] [address], [address], 3 14:26:34 Procedures None recorded. Surgeries None recorded. Imaging None recorded. Medication Orders tizanidine 4 mg tablet [address], [address], 3 16:33:15 prednisone 20 mg tablet 2022 [address], [address], 3 16:33:15 sumatripta n 100 mg tablet 2022 [address], [address], 3 16:33:15 Tamiflu 75 mg capsule [address], [address], 3 14:04:35 cephalexin 500 mg capsule [address], [address], 3 14:04:11 meclizine 12.5 mg tablet 2021 [address], [address], 2 11:24:52 Patient TargetsNo targets recorded. Patient Instructions Encounter Date Encounter Id Patient Instructions Last Modified By Organization Details Last Modified Time 07/07/2022 [id number] rest over the weekend and stay well hydrated. food only as tolerated. will see if med helps with dizziness and nausea - warned of drowsiness. will talk to her when the labs are back. seek emergent care if her symptoms acutely worsen, or are concerning - eg. one-sided weakness/numbness , vision loss, etc nguttman Not available 07/07/2022 11:26:22 07/26/2022 [id number] body mass index: care instructions tgrosser Not available 07/26/2022 15:01:08 learning about healthy weight tgrosser Not available 07/26/2022 15:01:08 08/15/2022 [id number] Rest and fluids OTC's to use reviewed. [...] concerns nguttman Not available 08/15/2022 15:42:47 10/26/2022 [id number] warned that taking steroids will probably raise her blood sugar. close f/u with Dr Cunningham. if her symptoms worsen at any time, joe if she has perineal numbness, bowel/bladder incontinence, either call me or go to the ER nguttman Not available 10/26/2022 14:42:55 11/13/2022 [id number] her BS is ok. he r BP [...] x10e3 /uL 3.4-10 .8 Not Available [facility] ([facility]) [address] [place], [address], 07/08/2022 09:11:36 07/07/20 22 07/08/2022 CBC WITH DIFFE RENTI AL/PL ATELE T RBC 4.68 x10e6 /uL 3.77-5 .28 Not Available [facility] ([facility]) [address] [place], [address], 07/08/2022 09:11:36 07/07/20 22 07/08/2022 CBC WITH DIFFE RENTI AL/PL ATELE T hemoglobin 13.3 g/dL 11.1-1 5.9 Not Available [facility] ([facility]) [address] [place], [address], 07/08/2022 09:11:36 07/07/20 22 07/08/2022 CBC WITH DIFFE RENTI AL/PL ATELE T hematocrit 40.6 % 34.0-4 6.6 Not Available [facility] ([facility]) [address] [facility], [place], [address], 07/08/2022 09:11:36 07/07/20 22 07/08/2022 CBC WITH DIFFE RENTI AL/PL ATELE T MCV 87 fL 79-97 Not Available [facility] ([facility]) [address] [facility], [place], [address], 07/08/2022 09:11:36 07/07/20 22 07/08/2022 CBC WITH DIFFE RENTI AL/PL ATELE T MCH 28.4 pg 26.6-3 3.0 Not Available [facility] ([facility]) [address] [facility], [place], [address], 07/08/2022 09:11:36 07/07/20 22 07/08/2022 CBC WITH DIFFE RENTI AL/PL ATELE T MCHC 32.8 g/dL 31.5-3 5.7 Not Available [facility] ([facility]) [address] [place], [address], 07/08/2022 09:11:36 07/07/20 22 07/08/2022 CBC WITH DIFFE RENTI AL/PL ATELE T RDW 13.2 % 11.7-1 5.4 Not Available [facility] ([facility]) [address] [place], [address], 07/08/2022 09:11:36 07/07/20 22 07/08/2022 CBC WITH DIFFE RENTI AL/PL ATELE T platelets 156 x10e3 /uL 150-45 0 Not Available [facility] ([facility]) [address] [place], [address], 07/08/2022 09:11:36 07/07/20 22 07/08/2022 CBC WITH DIFFE RENTI AL/PL ATELE T neutrophils 47 % not estab. Not Available [facility] ([facility]) [address] [facility], [place], [address], 07/08/2022 09:11:36 07/07/20 22 07/08/2022 CBC WITH DIFFE RENTI AL/PL ATELE T lymphs 41 % not estab. Not Available [facility] ([facility]) [address] [facility], [place], [address], 07/08/2022 09:11:36 07/07/20 22 07/08/2022 CBC WITH DIFFE RENTI AL/PL ATELE T monocytes 9 % not estab. Not Available [facility] ([facility]) [address] [facility], [place], [address], 07/08/2022 09:11:36 07/07/20 22 07/08/2022 CBC WITH DIFFE RENTI AL/PL ATELE T eos 1 % not estab. Not Available [facility] ([facility]) [address] [facility], [place], [address], 07/08/2022 09:11:36 07/07/20 22 07/08/2022 CBC WITH DIFFE RENTI AL/PL ATELE T basos 1 % not estab. Not Available [facility] ([facility]) [address] [facility], [place], [address], 07/08/2022 09:11:36 07/07/20 22 07/08/2022 CBC WITH DIFFE RENTI AL/PL ATELE T immature cells BUSINESS MANAGEMENT ASSOCIATE Not Available [facility] ([facility]) [address] [facility], [place], [address], 07/08/2022 09:11:36 07/07/20 22 07/08/2022 CBC WITH DIFFE RENTI AL/PL ATELE T neutrophils (absolute) 2.6 x10e3 /uL 1.4-7. 0 Not Available [facility] ([facility]) [address] [facility], [place], [address], 07/08/2022 09:11:36 07/07/20 22 07/08/2022 CBC WITH DIFFE RENTI AL/PL ATELE T lymphs (absolute) 2.2 x10e3 /uL 0.7-3. 1 Not Available [facility] ([facility]) [address] [facility], [place], [address], 07/08/2022 09:11:36 07/07/20 22 07/08/2022 CBC WITH DIFFE RENTI AL/PL ATELE T monocytes(ab solute) 0.5 x10e3 /uL 0.1-0. 9 Not Available [facility] ([facility]) [address] [facility], [place], [address], 07/08/2022 09:11:36 07/07/20 22 07/08/2022 CBC WITH DIFFE RENTI AL/PL ATELE T eos (absolute) 0.1 x10e3 /uL 0.0-0. 4 Not Available [facility] ([facility]) [address] [facility], [place], [address], 07/08/2022 09:11:36 07/07/20 22 07/08/2022 CBC WITH DIFFE RENTI AL/PL ATELE T baso (absolute) 0.0 x10e3 /uL 0.0-0. 2 Not Available [facility] ([facility]) [address] [facility], [place], [address], 07/08/2022 09:11:36 07/07/20 22 07/08/2022 CBC WITH DIFFE RENTI AL/PL ATELE T immature granulocytes 1 % not estab. Not Available [facility] ([facility]) [address] [facility], [place], [address], 07/08/2022 09:11:36 07/07/20 22 07/08/2022 CBC WITH DIFFE RENTI AL/PL ATELE T immature grans (abs) 0.1 x10e3 /uL 0.0-0. 1 Not Available [facility] ([facility]) [address] [facility], [place], [address], 07/08/2022 09:11:36 07/07/20 22 07/08/2022 CBC WITH DIFFE RENTI AL/PL ATELE T NRBC BUSINESS MANAGEMENT ASSOCIATE Not Available [facility] ([facility]) [address] [facility], [place], [address], 07/08/2022 09:11:36 07/07/20 22 07/08/2022 CBC WITH DIFFE RENTI AL/PL ATELE T hematology comments: BUSINESS MANAGEMENT ASSOCIATE Not Available [facility] ([facility]) [address] [facility], [place], [address], 07/08/2022 09:11:36 07/07/20 22 07/08/2022 BASIC METAB OLIC PANEL (8) glucose 141 mg/dL 70-99 above high normal Ple ase note refer ence inter maxine cheney e Not Available [facility] ([facility]) [address] [facility], [place], [address], 07/08/2022 09:11:36 07/07/20 22 07/08/2022 BASIC METAB OLIC PANEL (8) BUN 15 mg/dL 8-27 Not Available [facility] ([facility]) [address] [facility], [place], [address], 07/08/2022 09:11:36 07/07/20 22 07/08/2022 BASIC METAB OLIC PANEL (8) creatinine 0.66 mg/dL 0.57-1 .00 Not Available [facility] ([facility]) [address] [facility], [place], [address], 07/08/2022 09:11:36 07/07/20 22 07/08/2022 BASIC METAB OLIC PANEL (8) eGFR 100 mL/mi n/1.7 3 >59 Not Available [facility] ([facility]) [address] [facility] [place], [address], 07/08/2022 09:11:36 07/07/20 22 07/08/2022 BASIC METAB OLIC PANEL (8) BUN/creatini ne ratio 23 12-28 Not Available [facility] ([facility]) [address] [facility] [place], [address], 07/08/2022 09:11:36 07/07/20 22 07/08/2022 BASIC METAB OLIC PANEL (8) sodium 143 mmol/ L 134-14 4 Not Available [facility] ([facility]) [address] [facility] [place], [address], 07/08/2022 09:11:36 07/07/20 22 07/08/2022 BASIC METAB OLIC PANEL (8) potassium 4.2 mmol/ L 3.5-5. 2 Not Available [facility] ([facility]) [address] [facility] [place], [address], 07/08/2022 09:11:36 07/07/20 22 07/08/2022 BASIC METAB OLIC PANEL (8) chloride 103 mmol/ L 96-106 Not Available [facility] ([facility]) [address] [place], [address], 07/08/2022 09:11:36 07/07/20 22 07/08/2022 BASIC METAB OLIC PANEL (8) carbon dioxide, total 24 mmol/ L 20-29 Not Available [facility] ([facility]) [address] [place], [address], 07/08/2022 09:11:36 07/07/20 22 07/08/2022 BASIC METAB OLIC PANEL (8) calcium 8.6 mg/dL 8.7-10 .3 below low normal Not Available [facility] ([facility]) [address] [facility], [address], 07/08/2022 09:11:36 07/07/20 22 07/08/2022 TSH RFX ON ABNOR MAL TO FREE T4 TSH 0.016 uIU/m L 0.450- 4.500 below low normal Not Available [facility] ([facility]) [address] [facility] [place], [address], 07/08/2022 09:11:37 07/07/20 22 07/08/2022 TSH RFX ON ABNOR MAL TO FREE T4 T4,free (direct) 2.04 NG/dL 0.82-1 .77 above high normal Not Available [facility] ([facility]) [address] [facility] [place], [address], 07/08/2022 09:11:37 07/07/20 22 07/08/2022 SEDIM ENTAT ION RATE- WESTE RGREN sedimentatio n rate-westerg nader 29 mm/HR 0-40 Not Available [facility] ([facility]) [address] [facility] [place], [address], 07/08/2022 09:11:38 07/07/20 22 07/08/2022 MAGNE SIUM magnesium 1.9 mg/dL 1.6-2. 3 Not Available [facility] ([facility]) [address] [place], [address], 07/08/2022 09:11:38 07/07/20 22 07/08/2022 C-ANGELY CTIVE PROTE IN, QUANT C-reactive protein, quant 4 mg/L 0-10 Not Available [facility] ([facility]) [address] [facility] [place], [address], 07/08/2022 09:11:39 07/26/20 22 07/26/2022 rapid SARS CoV + SARS CoV 2 Ag, QL IA, respi rator y speci men SARS CoV antigen Negati ve Not Available [address] [place], [address], 07/26/2022 14:33:35 07/26/20 22 07/26/2022 rapid flu (A+B) Flu negati ve Not Available [address] , [place], [address], 07/26/2022 14:34:18 07/26/20 22 07/26/2022 rapid flu (A+B) Type Both A & B Not Available [address] , [place], [address], 07/26/2022 14:34:18 08/15/20 22 08/15/2022 rapid SARS CoV + SARS CoV 2 Ag, QL IA, respi rator y speci men SARS CoV antigen Negati ve Not Available [address] , [place], [address], 08/15/2022 13:39:15 08/15/20 22 08/15/2022 rapid flu (A+B) Flu negati ve Not Available [address] , [place], [address], 08/15/2022 13:39:04 10/26/19 23 10/26/2022 micro album in/cr eatin ine, mass ratio , urine Microalbumin 10 Not Available [facility] mirta [address] , [place], [address], 10/26/2022 08:33:54 10/26/19 23 10/26/2022 micro album in/cr eatin ine, mass ratio , urine Creatinine 200 Not Available [facility] [address] , [place], [address], 10/26/2022 08:33:54 10/26/19 23 10/26/2022 micro album in/cr eatin ine, mass ratio , urine Ratio <30 Not Available [address] , [place], [address], 10/26/2022 08:33:54 10/26/19 23 10/26/2022 urina lysis , dipst ick Leukocytes Trace Not Available [address] , [place], [address], 10/26/2022 14:11:33 10/26/19 23 10/26/2022 urina lysis , dipst ick Nitrite negati ve Not Available [address] , [place], [address], 10/26/2022 14:11:33 10/26/19 23 10/26/2022 urina lysis , dipst ick Urobilinogen .2 Not Available [address] , [place], [address], 10/26/2022 14:11:33 10/26/19 23 10/26/2022 urina lysis , dipst ick Protein Negati ve Not Available [address] , [place], [address], 10/26/2022 14:11:33 10/26/19 23 10/26/2022 urina lysis , dipst ick pH 6.5 Not Available [address] , [place], [address], 10/26/2022 14:11:33 10/26/19 23 10/26/2022 urina lysis , dipst ick Blood Negati ve Not Available [address] , [place], [address], 10/26/2022 14:11:33 10/26/19 23 10/26/2022 urina lysis , dipst ick Specific [place] 1.030 Not Available [address] , [place], [address], 10/26/2022 14:11:33 10/26/19 23 10/26/2022 urina lysis , dipst ick Ketone Negati ve Not Available [address] , [place], [address], 10/26/2022 14:11:33 10/26/19 23 10/26/2022 urina lysis , dipst ick Bilirubin Negati ve Not Available [address] , [place], [address], 10/26/2022 14:11:33 10/26/19 23 10/26/2022 urina lysis , dipst ick Glucose Negati ve Not Available [address] , [place], [address], 10/26/2022 14:11:33 10/26/19 23 10/26/2022 urina lysis , dipst ick Appearance Clear Not Available [address] , [place], [address], 10/26/2022 14:11:33 10/26/19 23 10/26/2022 urina lysis , dipst ick Color Yellow Not Available [address] , [place], [address], 10/26/2022 14:11:33 11/13/19 23 11/13/2022 rapid SARS CoV + SARS CoV 2 Ag, QL IA, respi rator y speci men SARS CoV antigen Negati ve Not Available [address] , [place], [address], 11/13/2022 15:53:16 11/13/19 23 11/13/2022 gluco brandy mcclain, blood Blood Glucose: mg/dl 169 Not Available [address] , [place], [address], 11/13/2022 15:53:03 03/20/20 23 03/20/2023 hospi lacey labs A1C 9.3 Not Available [facility] [address] [facility] , [place], [address], 03/20/2023 17:39:50 Result Notes None recorded. Problems Name Problem SNOMED Code Status Onset Date Resolution Date Notes Provider Name and Address Organization Details Recorded Time Chest pain 30723290 Completed 10/04/2020 Yecenia Ruiz MD [address], [place], [address], [place] - [facility] 2 11:57:20 Urinary tract infectio us disease 41740617 Completed 10/04/2020 Yecenia Ruiz MD [address], [place], [address], [place] [facility] 0 10:33:31 Cardiac catheter ization Completed 03/04/2020 Yecenia Ruiz MD [address], [place], [address], [place] [facility] 0 20:37:34 History of cardiac catheter ization 55381345651 100 Active Kee Escobedo null, [place] - [facility] 1 14:13:12 Chest pain 97890299 Completed 12/13/2021 Yecenia Ruiz MD [address], [place], [address], [place] [facility] 2 11:57:20 Urinary tract infectio us disease 34580470 Active Kee Escobedo null, [place] - [facility] 1 14:13:12 Hyperlip idemia 03511292 Completed 201509/05/2021 Yecenia Ruiz MD [address], [place], [address], [place] [facility] 1 10:10:45 Essentia l hyperten raquel 64636772 Active 2015 Gisselle Mooney null, [place] - [facility] 3 14:33:08 Malignan t neoplasm of thyroid gland 510394325 Active 2015 Gisselle Mooney null, [place] - [facility] 3 14:33:08 Irritabl e bowel syndrome 74309466 Active 2015 Gisselle Mooney [place], [place] - [facility] 3 14:33:07 Hiatal hernia 60465589 Active 2015 Gisselle Mooney [place] - [facility] 3 14:33:08 Fibromya lgia 661580602 Active 2015 Gisselle Mooney [place] - [facility] 3 14:33:08 Arthriti s 5063438 Active 2015 Gisselle Mooney [place] - [facility] 3 14:33:08 Degenera tion of interver tebral disc 04084911 Active 2015 Gisselle Mooney null[place] - [facility] 3 14:33:08 Osteopor osis 05921155 Completed 201507/20/2017 Removal Reason: she doesn't have it Yecenia Ruiz MD [address], [place], [address], [place] [facility] 7 16:13:45 Long-ter m drug therapy Active 2016 Gisselle Mooney null, [place] - [facility] 3 14:33:08 Gastroes ophageal reflux disease 311680361 Active 2016 Gisselle Mooney [place] - [facility] 3 14:33:08 Type 2 diabetes mellitus 43072543 Active [address] Octavio [place]frey, [place] - [facility] 3 14:33:08 Non-alco holic fatty liver 079323514 Active 2016 Gisselle Mooney [place] - [facility] 3 14:33:08 Allergic conjunct ivitis 668252636 Active 2016 Gisselle Jesica null, [place] - [facility] 3 14:33:08 History of polyp of colon 761577789 Active 2016 mom had colon ca Gisselle Mooney [place] - [facility] 3 14:33:08 History of multiple allergie s 541824538 Active 2017 Gisselle Mooney [place] [facility] 3 14:33:08 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 Procedures Surgical History Date Name Laterality Status Provider Name and Address Organization Details Recorded Time 03/12/20 23 Cardiac Cath completed Yecenia Ruiz MD [address], [place], [address], [place] [facility] 03/13/2023 20:01:36 11/02/19 21 Cardiac Cath completed Yecenia Ruiz MD [address], [place], [address], [place] [facility] 11/03/2020 07:59:19 10/25/19 21 Date of Last Mammogram completed Yecenia Ruiz MD [address], [place], [address], [place] [facility] 10/26/2020 08:10:46 07/20/20 20 [...] completed Yecenia Ruiz MD [address], [place], [address], [place] [facility] 01/21/2019 22:03:20 12/12/19 18 Cardiac Cath completed Yecenia Ruiz MD [address], [place], [address], [place] [facility] 12/16/2017 20:23:19 07/20/20 17 Most Recent Bone Density completed Yecenia Ruiz MD [address], [place], [address], [place] [facility] 10/04/2020 10:41:42 05/30/20 17 gastric sleeve completed Yecenia Ruiz MD [address], [place], [address], [place] [facility] 07/12/2017 09:24:22 05/15/20 17 Most Recent Mammogram completed Yecenia Ruiz MD [address], [place], [address], [place] [facility] 07/12/2017 09:41:28 08/18/20 16 Date of Last Colonoscopy completed Selma Berry, RN [address], [place], [address], [place] [facility] 08/16/2021 10:07:57 12/10/19 16 thyroidectomy completed Yecenia Ruiz MD [address], [place], [address], [place] [facility] 08/13/2021 13:28:21 Tubal Ligation [...] completed Yecenia Ruiz MD [address], [place], [address], [place] [facility] 07/07/2022 10:45:23 tonsillectomy completed Yecenia Ruiz MD [address], [place], [address], [place] [facility] 08/26/2018 11:27:26 Carpal tunnel surgery completed Diana Yan [place] - [facility] 10/11/2018 15:14:54 Imaging Results None recorded. Procedure Notes None recorded. Medical Equipment None Reported. Allergies Allergen ID Allergen Name Allergen Category Reaction Reaction Severity Criticality Documentation Date Start Date Code Code System Note Provider Name and Address Organization Details Recorded Time 298298 pregabali n medicatio n Not available Not available Not available 01/28/20192016 91501 2 RxNorm Crystal Earlywine null, [place] - [facility] 9 14:29:47 346276 rosuvasta tin medicatio n cough Not available Not available 01/28/20192015 10524 2 RxNorm Crystal Earlywine null, [place] - [facility] 9 14:29:47 079619 pioglitaz one medicatio n Not available Not available Not available 01/28/20192017 58499 RxNorm Crystal Earlywine null, [place] - [facility] 9 14:29:47 838876 codeine medicatio n itching Not available Not available 01/28/20192014 2670 RxNorm Crystal Earlywine null, [place] - [facility] 9 14:29:47 045949 ramires extract food Not available Not available Not available 01/28/20192017 61775 73 RxNorm Crystal Earlywine null, [place] - [facility] 9 14:29:47 48655 Glycine max (substan e) environme nt,food,m edication Not available Not available Not available 07/14/20162011 83557 5007 SNOMED Not Available [facility] 6 10:03:55 16496 green ramires food Not available Not available Not available 07/14/20162011 Not Available [facility] 6 10:03:56 73375 metformin hydrochlo ride medicatio n facial swelling Not available Not available 07/14/20162008 86522 3 RxNorm Not Available [facility] 6 10:03:56 09002 Actos medicatio n rash Not available Not available 07/14/20162012 79014 2 RxNorm Not Available [facility] 6 10:03:56 82210 Product containin g angiotens in-conver ting enzyme inhibitor (product) medicatio n Not available Not available Not available 07/14/20162010 28205 009 SNHATTIE [place], [place] - [facility] 6 [...] 50 mcg/actua tion nasal spray,rose marie pension [place] every day by nasal route as directed [...] completed Not Available Not Available Not Available Zhihu 1 daily 10/11 completed Not Available Not [...] Available Dymista 137 mcg-50 mcg/spray nasal spray [place] 1 spray every day by nasal route [...] Not Available Not Available [employer]Style Milagro 2 Callahan active Not Available Not Available Not Available Vitals Date Recorded Body height Body mass index (BMI) Body weight Body temperature Respiratory rate Heart rate Oxygen saturation Oxygen saturation in Arterial blood by Pulse oximetry Systolic And Diastolic Provider Name and Address Organization Details Last Updated DateTime 3 160.02 cm 38.8 kg/m2 93121.7 3 g 98.6 [degF] 20 /min 58 [...] mm[Hg] 140/86 mm[Hg] 140/84 mm[Hg] Chula Bennett [facility] 3 16:48:37 Date Recorded Body height Body mass index (BMI) Body weight Body temperature Respiratory rate Heart rate Oxygen saturation Oxygen saturation in Arterial blood by Pulse oximetry Systolic And Diastolic Systolic And Diastolic Provider Name and Address Organization Details Last Updated DateTime 2 160.02 cm 36.3 kg/m2 96076.1 4 g 98.5 [degF] 20 /min 58 /min 98 % 98 % 156/100 mm[Hg] 140/58 mm[Hg] Chula Bennett [facility] 2 11:14:51 Date Recorded Body height Heart rate Oxygen saturation Oxygen saturation in Arterial blood by Pulse oximetry Pain severity - 0-10 verbal numeric rating [Score] - Reported Body mass index (BMI) Body weight Body temperature Respiratory rate Systolic And Diastolic Provider Name and Address Organization Details Last Updated DateTime 2 160.02 cm 74 /min 98 % 98 % 8 36.5 kg/m2 04370.0 3 g 98.3 [degF] 18 /min 138/84 mm[Hg] Lizzy Washington [facility] 2 14:52:44 Date Recorded Body height Body temperature Heart rate Oxygen saturation Oxygen saturation in Arterial blood by Pulse oximetry Provider Name and Address Organization Details Last Updated DateTime 2 160.02 cm 102.6 [degF] 102 /min 93 % 93 % Chula Bennett [facility] 2 13:39:35 Social History Question Answer [...] colitis N Cerebrovascular Disease Y Depression N Guillain-Shubuta N Sleep Apnea N Aneurysm N Bronchitis [...] completed Yecenia Ruiz MD [address], [place], [address], [place] - [facility] 10/05/2020 17:08:59 zoster recombinant 0 completed Yecenia Ruiz MD [address], [place], [address], [place] [facility] 10/05/2020 17:08:59 Influenza, split virus, quadrivalent, preservative 7 completed Not Available [facility] 10/25/2019 03:54:37 influenza, unspecified formulation 4 completed Not Available [facility] 2023 00:26:22 influenza, unspecified formulation 4 completed Not Available [facility] 2023 00:26:22 influenza, unspecified formulation 6 completed Not Available [facility] 2023 00:26:22 pneumococcal polysaccharide PPV23 8 completed Not Available [facility] 10/25/2019 03:54:58 Influenza, split virus, quadrivalent, preservative 9 completed Not Available [facility] 10/25/2019 03:56:15 zoster live 9 completed Not Available [facility] 10/25/2019 03:56:02 Past Encounters Encounter ID Performer Location Encounter Start Date Encounter Closed Date Diagnosis/Indication Diagnosis SNOMED-CT Code Diagnosis ICD10 Code Diagnosis IMO Codes Diagnosis Note [id number] Tristan Chavez DO [address] [place] [id number] 08/04/2016 12:29:08 08/04/2016 14:14:14 Chest pain 81837999 R07.9 [id number] Tiffany Houser APRN [address] [place] [id number] 09/06/2016 10:49:14 09/06/2016 11:28:02 Pain of shoulder region 63541935 M25.512 Neuropathy due to diabetes mellitus 484523923 E11.40 [id number] Tiffany Houser APRN [address] [place] [address] 10/10/2016 09:53:23 10/10/2016 10:37:12 Anxiety 22554748 F41.9 Neuropathy due to diabetes mellitus 147896967 E11.40 Irritable bowel syndrome 37775401 K58.9 Fibromyalgia 303032038 M 79.7 Gastroesop hageal reflux disease 710819679 K21.0 Disease of liver 1399499 03 K76.9 Malignant neoplasm of thyroid gland 801155288 C73 Arthritis 6041564 M19.90 Type 2 arslan betes mellitus 75858382 E11.42 Hyperlipidemia 52017282 E78.5 Essential hypertension 31123077 I10 Osteoporosis 92302291 M8 1.0 Hiatal hernia 83308123 K 44.9 Degenerati on of intervertebral disc 00052193 M51.9 Diabetes mellitus 837580 09 E13.43 [id number] Tiffany Houser APRN [address] [place] [id number] 11/07/2016 10:04:43 11/07/2016 10:20:06 Long-term drug therapy 973122724 Z79.899 Irritable bowel syndrome 59958373 K58.9 Fibromyalgia 622989974 M 79.7 Gastroesop hageal reflux disease 724283386 K21.0 Disease of liver 6825585 03 K76.9 Malignant neoplasm of thyroid gland 534640679 C73 Arthritis 7425174 M19.90 Type 2 arslan betes mellitus 72888347 E11.42 Hyperlipidemia 56727554 E78.5 Essential hypertension 43187133 I10 Osteoporosis 49392015 M8 1.0 Degenerati on of intervertebral disc 49698441 M51.9 Hiatal hernia 03058316 K 44.9 [id number] Tiffany Houser APRN [address] [place] [id number] 11/28/2016 15:25:45 11/28/2016 15:52:10 Pain of shoulder region 98952357 M25.512 Pain in left arm 7497447 00 M79.736 [id number] Yamilet Kellogg MD [address] [place] [address] 12/11/2016 17:25:32 12/11/2016 18:22:52 Abscess of skin and/or subcutaneous tissue 72390296 L02.91 Carpal king yeimi syndrome 99194477 G56.02 Viral gastroenteritis 11 4288447 A08.4 [id number] Tiffany Houser APRN [address] [place] [address] 01/09/2017 09:41:26 01/09/2017 10:43:41 Long-term drug therapy 377808760 Z79.899 Diabetes mellitus 621921 09 E11.9 [id number] Tiffany Houser APRN [address] [place] [address] 04/12/2017 08:27:32 04/12/2017 09:07:49 Long-term drug therapy 162190671 Z79.899 Vitamin D deficiency 347 64860 E55.9 Allergic conjunctivitis 310598427 H10.13 [id number] Yecenia Ruiz MD [address] [place] [address] 07/12/2017 09:03:02 07/12/2017 10:01:24 Fibromyalgia 771626226 M79.7 Gastroesop hageal reflux disease 317446677 K21.9 Long-term drug therapy 971226851 Z79.899 Type 2 arslan betes mellitus 59043262 E11.42 Osteoporosis 01200095 M8 1.0 Non-alcoho lic fatty liver 547925181 K76.0 Vitamin D deficiency 347 45933 E55.9 Allergic conjunctivitis 535447786 H10.11 Seasonal a llergic rhinitis 525808679 J30.2 History of polyp of colon 024312879 Z86.010 Administra tion of influenza vaccine 80426220 Z23 [id number] Yecenia Ruiz MD [address] [place] [address] 08/17/2017 09:42:21 08/17/2017 10:36:04 Acute sinusitis 40208868 J01.90 Lesion of nasal mucosa 511853803 J34.89 [id number] Yecenia Ruiz MD [address] [place] [address] 10/05/2017 10:12:47 10/05/2017 11:12:05 Gastroesophageal reflux disease 688872715 K21.9 Hematochezia 893449021 K 62.5 [id number] Yecenia Ruiz MD [address] [place] [address] 01/03/2018 09:54:48 01/03/2018 10:34:05 Type 2 diabetes mellitus 07710926 E11.42 Hyperlipidemia 16313389 E78.5 Essential hypertension 72941591 I10 Gastroesop hageal reflux disease 696063519 K21.9 Fibromyalgia 530093280 M 79.7 Administra tion of pneumococcal vaccine 82573773 Z23 [id number] Mark Tavera APRN [address] [place] [id number] 01/11/2018 10:11:53 01/11/2018 10:44:57 Acute frontal sinusitis 74093311 J01.10 Acute conjunctivitis 537 06939 H10.12 Lesion of nasal mucosa 710528549 J34.89 Patient has muciprocin 2% she is currently using for this, prescribed per Dr. Ruiz. [id number] Mark Tavera APRN [address] [place] [address] 01/24/2018 10:35:42 01/24/2018 11:34:53 Bacterial conjunctivitis 139358176 H10.9 Multiple environmental allergies 327514755 T78.49XS Multiple allergies [id number] Yecenia Ruiz MD [address] [place] [address] 04/05/2018 09:44:00 04/05/2018 10:23:44 Fibromyalgia 054757324 M79.7 Gastroesop hageal reflux disease 664038918 K21.9 Type 2 arslan betes mellitus 37252856 E11.42 Hyperlipidemia 02057610 E78.5 Essential hypertension 87869318 I10 Arthritis 7423864 M19.90 Body mass index 30+ - obesity 833122109 Z68.36 Active or passive immunization 609929432 Z23 Screening mammography 24 990122 Z12.31 History of multiple allergies 009075900 Z91.09 [id number] Yecenia Ruiz MD [address] [place] [address] 08/26/2018 10:52:28 08/26/2018 11:29:28 Acute pharyngitis 739497931 J02.9 Candidiasis of vagina 72 846082 B37.3 [id number] Pedro Tony MD [address] [place] [address] 10/11/2018 14:50:12 10/11/2018 16:00:13 Pain of left hip joint 6476521951 87119 M25.552 Body mass index 30+ - obesity 509665606 Z68.34 [id number] Yecenia Ruiz MD [address] [place] [address] 08/28/2019 15:28:32 08/28/2019 16:42:10 Fibromyalgia 937253198 M79.7 Irritable bowel syndrome 74911452 K58.9 Gastroesop hageal reflux disease 381377386 K21.9 Long-term drug therapy 391632937 Z79.899 Arthritis 3901688 M19.90 Type 2 arslan betes mellitus 46289347 E11.42 cont care per Endo Hyperlipidemia 21544885 E78.5 Essential hypertension 34442174 I10 Degenerati on of intervertebral disc 92345688 M51.9 Body mass index 30+ - obesity 820497201 Z68.35 Administra tion of influenza vaccine 90434043 Z23 Active or passive immunization 037881268 Z23 Pain in left foot 902261 4019 50616 M79.198 [id number] Yecenia Ruiz MD [address] [place] [address] 09/09/2019 16:29:11 09/09/2019 18:09:39 Active or passive immunization 866710762 Z23 [id number] Maranda Stock APRN [facility] [address] [place] [address] 11/05/2019 12:01:08 11/05/2019 12:36:49 Pain in throat 804446592 R07.0 Cough 74955614 R05 Upper resp iratory infection 56161045 J06.9 [id number] Yecenia Ruiz MD [address] [place] [address] 01/29/2020 14:22:39 01/29/2020 15:41:52 Closed fracture of rib 05804058 S22.39XA Liver marcello r laceration with open wound into cavity 440667619 S36.114A Fracture o f transverse process of lumbar vertebra 057606822 S32.009A Adrenal gl and hematoma 549657058 E27.49 Fractured nasal bones 26 0681813 S02.2XXA Traumatic intracranial subdural hematoma with brief loss of consciousness 494792912 S06.5X9A Mallet finger 23327137 M 20.011 5th [id number] Yecenia Ruiz MD [address] [place] [address] 03/05/2020 09:41:29 03/05/2020 10:39:44 Increased liver function 56419112 R94.5 Liver enzy mes level above reference range 700137854 R74.8 Closed fra cture of rib 49468020 S22.39XA Liver marcello r laceration with open wound into cavity 043634959 S36.114A Fracture o f transverse process of lumbar vertebra 635619364 S32.009A Adrenal gl and hematoma 059983594 E27.49 Traumatic intracranial subdural hematoma with brief loss of consciousness 960008787 S06.5X9A Mallet finger 86887883 M 20.011 wear brace as much as she can - I bent the brace so the joint would be more in extension [id number] Yecenia Ruiz MD [address] [place] [address] 03/26/2020 09:20:01 03/26/2020 10:20:34 Closed fracture of rib 82464511 S22.39XA Liver marcello r laceration with open wound into cavity 227662440 S36.114A Fracture o f transverse process of lumbar vertebra 424262775 S32.009A Adrenal gl and hematoma 975058681 E27.49 Traumatic intracranial subdural hematoma with brief loss of consciousness 953389786 S06.5X9A Mallet finger 52213075 M 20.011 wear brace as much as she can - I bent the brace so the joint would be more in extension Muscle pain 84070882 M79 .10 Screening mammography 24 254828 Z12.31 New daily persistent headache 4537500606 18644 G44.52 [id number] Tete Cox MD [address] [place] [address] 07/13/2020 11:58:21 07/13/2020 12:48:45 Right flank pain 591220002 R10.9 UA in office is unremarkab le. Hx of kidney stones. I recommende d that she should go to the hospital emergency department (ER) right now for further evaluation and management . I offered transfer to ER via ambulance but patient declined that. Follow up with us after hospital discharge. Patient agrees with the above plan. Chronic back pain 174038 002 M54.9 Get XRS of L and T spines. Follow up with PCP Dr. Ruiz Numbness 20011630 R20.0 See above under headache - Headache 00509465 R51.9 Intermitte nt headaches and numbness over forehead and left side of face since trauma on 01.19.20. No known allergies to contrast or dye. Will get MRI of brain. Follow up with us in 1 to 2 days after MRI to discuss test results [id number] Yecenia Ruiz MD [address] 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 532915195 E11.3299 Mixed hyperlipidemia 267 778253 E78.2 Non-alcoho lic fatty liver 920548767 K76.0 Type 2 arslan betes mellitus 65663064 E11.42 cont care per Endo Screening mammography 24 838479 Z12.31 she has appt in Oct, 2020 Administra tion of influenza vaccine 36355047 Z23 Pain in bi lateral feet 0901790530 7473785 M79.672 Myalgia/my ositis - multiple 781861523 M79.10 Active or passive immunization 795986769 Z23 Vaccination needed 94094 87955 38009 Z23 [id number] Yecenia Ruiz MD [address] [place] [address] 08/16/2021 08:25:57 08/16/2021 09:14:41 Coronary arteriosclerosis 19563375 I25.10 following with cardiology Essential hypertension 84803628 I10 controlled on meds Fibromyalgia 445657753 M 79.7 stable, doing well on meds Gastroesop hageal reflux disease 340264877 K21.9 controll on PPI Hyperlipidemia 63522767 E78.5 Malignant neoplasm of thyroid gland 064711194 C73 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 906388443 E11.3299 Mixed hyperlipidemia 267 693650 E78.2 on Praluent Non-alcoho lic fatty liver 630303745 K76.0 follows with Endo Type 2 arslan betes mellitus 20651483 E11.42 cont care per Endo Administra tion of influenza vaccine 74829740 Z23 Allergic conjunctivitis 035922694 H10.11 Low back pain 807454021 M54.50 Migraine 08136911 G43.90 9 Dysuria 98594815 R30.9 [id number] Yecenia Ruiz MD [address] [place] [address] 12/13/2021 13:39:18 12/13/2021 15:02:27 Chronic daily headache 0203907702 25454 R51.9 Migraine without aura 56 171116 G43.096 [id number] Yecenia Ruiz MD [address] [place] [address] 03/28/2022 10:45:40 03/28/2022 11:37:09 Acute sinusitis 76852969 J01.90 [id number] Yecenia Ruiz MD [address] [place] [address] 07/07/2022 10:02:30 07/07/2022 11:27:41 New daily persistent headache 8819173239 20764 G44.52 Vertigo 437528183 R42 [id number] Pedro Tony MD [address] [place] [address] 07/26/2022 14:25:54 07/26/2022 14:58:30 Suspected COVID-19 624445946 Z20.822 Influenza- like symptoms 263642304 R68.89 Lymphadenitis 81008091 I 88.9 Body mass index 30+ - obesity 624455795 Z68.36 [id number] Yecenia Ruiz MD [address] [place] [address] 08/15/2022 12:28:43 08/15/2022 15:49:42 Influenza-like symptoms 927953592 R68.89 [id number] Yecenia Ruiz MD [address] [place] [address] 10/26/2022 13:48:18 10/26/2022 14:40:55 Coronary arteriosclerosis 01159227 I25.10 following with cardiology Essential hypertension 66476533 I10 controlled on meds Fibromyalgia 756937443 M 79.7 stable, doing well on meds Gastroesop hageal reflux disease 616586662 K21.9 controlled on PPI Malignant neoplasm of thyroid gland 920438736 C73 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 802744759 E11.3299 Mixed hyperlipidemia 267 519098 E78.2 on Praluent Non-alcoho lic fatty liver 783060534 K76.0 follows with Endo Type 2 arslan betes mellitus 37940185 E11.42 cont care per Endo Migraine 38801712 G43.90 9 meds are helping Acute low back pain 2788 45095 M54.[address] acic back pain 930688737 M54.6 as above [id number] Yecenia Ruiz MD [address] [place] [address] 11/13/2022 15:09:28 11/13/2022 17:50:38 Coronary arteriosclerosis 53428019 I25.10 following with cardiology Essential hypertension 57445279 I10 controlled on meds Fibromyalgia 386825497 M 79.7 stable, doing well on meds Gastroesop hageal reflux disease 939865423 K21.9 controlled on PPI Mixed hyperlipidemia 267 667519 E78.2 on Praluent Non-alcoho lic fatty liver 075763546 K76.0 follows with Endo Type 2 arslan betes mellitus 81916050 E11.42 cont care per Endo Migraine 28013781 G43.90 9 meds are helping Dizziness 918361188 R42 Health Concerns Section Related Observation LastModified by Organization Detai ls LastModified Time None Recorded Concern Status LastModified by Organization Details LastModified Time None Recorded Advance Directives Directive N: Payers Insurance Date Sequence Insurance Name Policy Number Policy Jacobsen Covered Member ID Jacobsen Member ID Guarantor Name 08/16/2021 1 [place] Angeles Machado [id number] Angeles Machado 10/26/2022 1 [place]/A DVANTAGE - HMO) [id number] Angeles Machado [id number] Angeles Machado 08/16/2021 [place] [employer] Angeles Machado 08/16/2021 1 [place] Angeles Machado [id number] Angeles Machado 11/13/2022 2 MEDICAID-[facility] - FFS/TRADITION AL Angeles Machado [id number] Angeles aMchado 08/16/2021 [employer] [place] [facility] (MEDICARE) Angeles Machdao [id number] Angeles Machado 11/03/2022 1 HU[employer] - CHOICECARE (PPO) Angeles Machado [id number] Angeles Machado 11/13/2022 1 [employer] (MEDICARE REPLACEMENT/A DVANTAGE - PPO) Angeles Machado [id number] Angeles Machado Notes Date Note Type Note [...] made CURRY's worse Yecenia Ruiz MD [address], [place], [address], [facility] - [facility] 07/07/2022 11:26:50 07/26/2022 text/html C/O ST, head congestion, swollen cervical glands 4 days. Gets every year and needs abt. Pedro Tony MD [address], [place], [address], [facility] - [facility] 07/26/2022 15:02:19 08/15/2022 text/html she has had 2 days of fever, chills, body aches, cough, congestion and SOB hurts all over. decreased appetite but drinking Yecenia Ruiz MD [address], [place], [address], [facility] - [facility] 08/15/2022 15:43:10 10/26/2022 text/html here with back pain x 2 weeks. no known injury. taking ibu 800, MR, heat, roll on lotions, or meloxicam pain is diffuse low and mid back hasn't been seen for a routine care visit since Aug, she has been seeing marketing communications manager and the nasal sprays are helping follows with Dr Taylor for DM goes to eye doc regularly last A1c - she doesn't remember taking calcium and vit D not checking BP at home Dr Cunningham is filling her meds her glucose monitor went off - 58. she tested and was 85 Yecenia Ruiz MD [address], [place], [address], [facility] - [facility] 10/26/2022 18:57:40 11/13/2022 text/html seen 2 weeks ago with back pain. she was treated and referred to PT now has dizziness and a CURRY and hip pain. her head started feeling bad earlier today.. she went to [place] to eat and felt worse so came here. her vision is fuzzy B she last ate at [facility] also having mid back pain and while she was here she felt that her L arm was jerking. L sided CP that she felt with deep breaths. her heart is racing reviewed recent labs she did per Endo recently she hasn't been seen for a routine care visit since Aug, she has been seeing marketing communications manager and the nasal sprays are helping follows with Dr Taylor for DM. her A1c 8.9% Yecenia Ruiz MD [address], [place], [address], [place] - [facility] 11/13/2022 19:02:26 OBGyn Episode No OBEpisode recorded.
--- OUTSIDE RECORDS SUMMARY | 2025-08-20 14:42 | XMS_ITS | Continuity of Care Document ---
Author Organization [facility] Address [facility] [place] [address] Phone Care Team Providers Care Multi Site Leasing Consultant Name Role Phone Chris Serra MD Unavailable [phone] Encounters Date Type Department Care Team Description 07/09/2025 11:40 AM EDT Office Visit [facility] [address] [facility] [address] [place], [place] [phone] Rojas Cunningham MD Dyslipidemia associated with type 2 diabetes mellitus (HCC) (Primary Dx); Post-surgical hypothyroidism; Follicular thyroid cancer (HCC); Vitamin D deficiency 07/04/2025 Refill [facility] [address] [facility] [address] [place], [place] [phone] Lissy Sagastume APRN Medication Refill 06/22/2025 Telephone [facility] [address] [employer] [place] [phone] Rojas Cunningham MD Labs Only 06/04/2025 Telephone [facility] [address] [employer] [address] [place], [place] [phone] Rojas Cunningham MD Cancelled Appointment 02/23/2025 Telephone [facility] [address] [place] [address] Rojas Cunningham MD Results (External Results Request - Diabetes Eye Exam ) 02/23/2025 3:00 PM EDT Office Visit [address] [place] [address] Rojas Cunningham MD Dyslipidemia associated with type 2 diabetes mellitus (HCC) (Primary Dx); Post-surgical hypothyroidism; Vitamin D deficiency; Follicular thyroid cancer (HCC) 02/16/2025 Telephone [place] [address] Rojas Cunningham MD Labs Only 02/12/[address] [place] [address] Rojas Cunningham MD Paperwork/forms 09/01/[address] [place] [address] Rojas Cunningham MD Paperwork/forms (TMS) 08/26/2024 10:40 AM EST Office Visit [address] [place] [address] Rojas Cunningham MD Dyslipidemia associated with type 2 diabetes mellitus (HCC) (Primary Dx); Post-surgical hypothyroidism; Vitamin D deficiency 07/18/[address] [place] [address] Rojas Cunningham MD Medication Refill 07/14/2024 [place] [address] Lissy Sagastume APRN Medication Refill 05/13/[address] [place] [address] Lissy Sagastume APRN Medication Refill 05/08/2024 12:30 PM EDT Office Visit [place] [address] [address] Rojas Cunningham MD Post-surgical hypothyroidism (Primary Dx); Follicular thyroid cancer (HCC); Vitamin D deficiency; Dyslipidemia associated with type 2 diabetes mellitus (HCC) 04/30/2024 Telephone [facility] [address] [address] Rojas Cunningham MD Other 04/03/2024 [facility]ty [facility] [address] [place] [address] Jael Baker [facility] Hyperlipidemia Management (Repatha) 01/09/2024 Telephone [place] [address] [place] [address] Rojas Cunningham MD Medication Refill 01/08/2024 Refill [place] [address] [place] [address] Rojas Cunningham MD Medication Refill 01/08/2024 [facility]ty [facility] [address] [place], [place] [id number] Hyacinth Mancilla [facility] Hyperlipidemia Management (Repatha ) 01/07/2024 Travel 01/07/2024 12:20 PM EDT Telemedicine [facility] [address] [address] Rojas Cunningham MD Dyslipidemia associated with type 2 diabetes mellitus (HCC) (Primary Dx); Post-surgical hypothyroidism; Follicular thyroid cancer (HCC); Vitamin D deficiency 12/26/2023 Telephone [facility] [address] [address] Rojas Cunningham MD Labs Only 11/28/2023 Specialty [facility] [address] [place], [place] [id number] Mary Mancilla [facility] Pharmacy Hyperlipidemia Management; Pharmacy Reassessment (Repatha) 10/31/2023 Refill [facility] [address] [facility] [address] [place] [address] Rojas Cunningham MD Medication Refill 10/10/2023 [facility]ty [facility] [address] [place] [address] Arnav Duong [facility] Hyperlipidemia Management (Repatha) 09/24/2023 1:50 PM EST Office Visit [address] Rojas Cunningham MD Dyslipidemia associated with type 2 diabetes mellitus (HCC) (Primary Dx); Vitamin D deficiency; Post-surgical hypothyroidism; Follicular thyroid cancer (HCC) 09/18/2023 Telephone [facility] [address] [place] [address] Rojas Cunningham MD Labs Only 09/17/2023 Telephone [facility] [address] [address] Rojas Cunningham MD Labs (Reminder call) 09/05/2023 Telephone [facility] [address] [phone] Rojas Cunningham MD Medication Refill 07/18/2023 Telephone [facility] [address] [address] Rojas Cunningham MD Patient Education 07/16/2023 Specialty [facility] [address] [place] [address] Hyacinth Mancilla [facility] Hyperlipidemia Management (Repatha) 06/07/2023 2:50 PM EDT Office Visit [address] [place] [address] Rojas Cunningham MD Dyslipidemia associated with type 2 diabetes mellitus (HCC) (Primary Dx); Vitamin D deficiency; Post-surgical hypothyroidism; Follicular thyroid cancer (HCC) 05/25/2023 9:30 AM EDT - 05/25/2023 11:59 PM EDT Hospital Encounter [facility] [address] [place] [address] Dyslipidemia associated with type 2 diabetes mellitus (HCC); Vitamin D deficiency; Post-surgical hypothyroidism Discharge Disposition: Home or Self Care 05/25/2023 10:00 AM EDT Office Visit [facility] [address] [place] [address],LD Type 2 diabetes mellitus with hyperglycemia, with long-term current use of insulin (HCC) (Primary Dx) 05/19/2023 [place] [address] Rojas Cunningham MD Medication Refill 04/30/[address] [address] Rojas Cunningham MD Medication Refill 04/23/2023 [facility]ty [facility] [address] [place] [address] Hyacinth Mancilla [facility] Hyperlipidemia Management (Repatha ) 03/29/2023 2:40 PM EDT Office Visit [facility] [address] [address] Rojas Cunningham MD Dyslipidemia associated with type 2 diabetes mellitus (HCC) (Primary Dx); Post-surgical hypothyroidism; Vitamin D deficiency 03/27/2023 [facility]ty [facility] [address] [place], [place] [id number] Hyacinth Mancilla, [facility] Hyperlipidemia Management (Repatha ) 03/20/2023 Travel 03/20/2023 12:10 PM EDT - 03/20/2023 11:59 PM EDT Hospital Encounter [facility] 1500 [facility] [address] Dyslipidemia associated with type 2 diabetes mellitus (HCC); Vitamin D deficiency; Post-surgical hypothyroidism Discharge Disposition: Home or Self Care 03/20/2023 1:00 PM EDT Office Visit [facility] [address],CDE Type 2 diabetes mellitus with hyperglycemia, with long-term current use of insulin (HCC) (Primary Dx) 03/14/2023 Telephone [facility] [address] [place] [address] Rojas Cunningham MD Blood Sugar Problem 03/07/2023 Telephone [facility] [address] [place] [address] Rojas Cunningham MD Labs Only 03/06/2023 Telephone [facility] [address] Rojas Cunningham MD CGMS Interpretation (Milagro Report/Hyperglycemia) 02/14/2023 Telephone [facility] [address] [place] [address] Rojas Cunningham MD Patient Education 02/05/2023 Refill [facility] [address] [address] Rojas Cunningham MD Medication Refill 02/02/2023 Telephone [facility] [address] [address] Rojas Cunningham MD Symptom Call; Appointment Needed; Lab Orders 01/12/2023 Telephone [place] [address] [address] [facility] [address] [place] [address] Rojas Cunningham MD Medication Refill 12/21/2022 Specialty [facility] [address] [place] [address] Kerrie Almodovar, [facility] Hyperlipidemia Management (Repatha) 11/28/[address] [place], [place] [address] Rojas Cunningham MD Glucose Monitoring 11/28/2022 [facility]ty [facility] [address] [place], [place] [id number] Starr Ceja, [facility] Pharmacy Hyperlipidemia Management; Pharmacy Initial Assessment (Repatha) 11/28/2022 [address] Rojas Cunningham MD CGMS Interpretation (Milagro) 11/24/2022 [facility]ty [facility] [address] [place], [place] [id number] Ashley Ambrosio, [facility] Hyperlipidemia Management (Repatha) 11/23/2022 [facility]ty [facility] [address] [place], [place] [id number] Gerardo Hdz, [facility] Pharmacy Hyperlipidemia Management (Praluent) 11/23/2022 Orders Only [facility] 1500 [facility] [address] [place] [address] Michaelle Garcia LPN Dyslipidemia associated with type 2 diabetes mellitus (HCC); Hyperlipidemia associated with type 2 diabetes mellitus (HCC) 11/16/2022 Refill [facility] [address] [facility] [address] [place] [phone] Rojas Cunningham MD Medication Refill 11/15/2022 Telephone [facility] [address] [employer] [address] [place] [phone] Rojas Cunningham MD Prior Authorization (Milagro-DME) 11/14/2022 7:50 AM EST Office Visit [facility] [address] [place] [address] Rojas Cunningham MD Dyslipidemia associated with type 2 diabetes mellitus (HCC) (Primary Dx); Post-surgical hypothyroidism; Vitamin D deficiency 11/07/2022 Telephone [facility] 1500 [facility] [address] [facility] [address] [place] [address] Rojas Cunningham MD Labs Only 10/30/[address] [place] [facility] [address] [place] [address] Rojas Cunningham MD Medication Refill; Central Patient Navigator Outreach (med refills 2nd ) 10/01/2022 Refill [facility] [address] [place] [address] Rojas Cunningham MD Medication Refill 08/15/2022 Telephone [facility] [address] [employer] [address] [place] [address] Rojas Cunningham MD Cancellation 08/06/2022 Refill [facility] [address] [place] [address] Rojas Cunningham MD Medication Refill; Labs Only 07/10/2022 Telephone [facility] [address] [place] [address] Rojas Cunningham MD Symptom Call 06/29/2022 Refill [facility] [address] [place] [address] Rojas Cunningham MD Medication Refill 06/23/2022 Refill [facility] 1500 [facility] [address] [facility] [address] [place], [place] [phone] Rojas Cunningham MD Medication Refill 06/19/2022 Refill [facility] [address] [place] [address] Rojas Cunningham MD Medication Refill 06/13/2022 Refill [facility] 1500 [facility] [address] [place], [place] [address] Rojas Cunningham MD Medication Refill 06/01/2022 Refill [facility] [address] Rojas Cunningham MD Medication Refill 05/09/2022 12:50 PM EDT Office Visit [place] [address] Rojas Cunningham MD Dyslipidemia associated with type 2 diabetes mellitus (HCC) (Primary Dx); Post-surgical hypothyroidism 05/04/2022 Telephone [facility] 1500 [facility] [address] Rojas Cunningham MD Labs Only 03/10/2022 Refill [facility] 1500 [facility] [address] Rojas Cunningham MD Medication Refill 02/15/2022 Refill [facility] [address] [place] [address] Rojas Cunningham MD Medication Refill 02/02/2022 1:20 PM EDT Office Visit [address] [facility] [address] [place] [address] Rojas Cunningham MD Dyslipidemia associated with type 2 diabetes mellitus (HCC) (Primary Dx); Post-surgical hypothyroidism; Follicular thyroid cancer (HCC); Vitamin D deficiency 12/06/[address] [place] [facility] [address] [place], [place] [address] Rojas Cunningham MD Medication Refill 12/01/2021 1:10 PM EST Office Visit [address] Rojas Cunningham MD Dyslipidemia associated with type 2 diabetes mellitus (HCC) (Primary Dx); Vitamin D deficiency; Post-surgical hypothyroidism; Follicular thyroid cancer (HCC) 11/16/[address] [place] [address] Rojas Cunningham MD Medication Refill 11/12/[address] [place] [address] Rojas Cunningham MD Medication Refill 11/04/[address] Rojas Cunningham MD Medication Refill; Appointment Needed 10/21/[address] [place] [address] Rojas Cunningham MD Other (Antibodies); Cancellation 10/18/[address] [place] [address] Rojas Cunningham MD Labs Only 09/12/[address] [place] [facility] [address] [place] [address] Rojas Cunningham MD Reschedule 09/06/2021 Telephone [facility] [address] [place] [address] Rojas Cunningham MD Labs Only 09/05/2021 Telephone [facility] [address] [employer] [address] [place] [address] Rojas Cunningham MD Labs Only 08/12/2021 Refill [facility] [address] [employer] [address] [place] [phone] Rojas Cunningham MD Medication Refill 07/29/2021 Travel 07/29/2021 11:00 AM EDT Office Visit [facility] 1500 [facility] [address] [employer] [address] [place] [phone] Willa Horton, BESSY Dyslipidemia associated with type 2 diabetes mellitus (HCC) (Primary Dx); Diabetic autonomic neuropathy associated with type 2 diabetes mellitus (HCC) 07/25/2021 Refill [facility] [address] [employer] [address] [place] [address] Rojas Cunningham MD Medication Refill (Milagro 14 days sensor) 07/15/2021 Travel 07/15/2021 11:00 AM EDT Office Visit [facility] 1500 [facility] [employer] [address] [place] [phone] Willa Horton, BESSY Uncontrolled type 2 diabetes mellitus with complication (HCC) (Primary Dx) 07/12/2021 Telephone [facility] [address] [employer] [address] [place] [phone] Rojas Cunningham MD Other (Milagro 2) 07/01/2021 Refill [facility] [address] [employer] [address] [place] [phone] Rojas Cunningham MD Medication Refill 06/09/2021 Telephone [facility] [address] [place] [address] Rojas Cunningham MD Results 06/06/2021 Travel 06/06/2021 12:00 PM EDT Office Visit [facility] [address] [address] Rojas Cunningham MD Dyslipidemia associated with type 2 diabetes mellitus (HCC) (Primary Dx); Vitamin D deficiency; Statin intolerance 06/04/2021 [place] [address] Rojas Cunningham MD Medication Refill 05/30/2021 [place] [address] Rojas Cunningham MD Labs Only 05/19/2021 [address]ill [address] Rojas Cunningham MD Medication Refill 05/06/2021 [place] [address] Rojas Cunningham MD Medication Refill 04/14/2021 Travel 04/14/2021 11:30 AM EDT Office Visit [facility] [address] [address] Willa Horton LPN Uncontrolled type 2 diabetes mellitus with complication (HCC) (Primary Dx) 04/14/2021 Telephone [facility] [address] [place] [address] Rojas Cunningham MD CGMS Interpretation (Personal Milagro 2 download) 04/12/2021 [facility]ty [facility] [address] [place] [address] Starr Ceja [facility] Pharmacy Hyperlipidemia Management 03/22/2021 Telephone [facility] [address] [employer] [address] [place] [address] Rojas Cunningham MD Prior Authorization 03/17/2021 Telephone [facility] [address] [place] [phone] Rojas Cunningham MD Glucose Monitoring 03/04/2021 Travel 03/04/2021 4:15 PM EDT Office Visit [facility] [address] [facility] [address] [address] Willa Horton LPN Uncontrolled type 2 diabetes mellitus with complication (HCC) (Primary Dx) 03/04/2021 Telephone [facility] [address] [place] [address] Rojas Cunningham MD CGMS Interpretation (Personal Milagro 2 download) 02/23/2021 Telephone [facility] [address] [employer] [place] [phone] Rojas Cunningham MD CGMS Interpretation (Milagro 2) 02/23/2021 Telephone [facility] [address] [employer] [employer] [place] [phone] Rojas Cunningham MD Blood Sugar Problem 02/08/2021 Travel 02/08/2021 11:00 AM EDT Office Visit [facility] [address] [place] [phone] Willa Horton LPN Uncontrolled type 2 diabetes mellitus with complication (HCC) (Primary Dx) 02/04/2021 [facility]ty [facility] [address] [place], [place] [id number] Starr Ceja, [facility] Pharmacy Hyperlipidemia Management; Pharmacy Initial Assessment 02/04/2021 Telephone [facility] [address] [employer] [address] [place] [address] Rojas Cunningham MD Schedule Appointment 02/03/2021 [facility]ty [facility] [address] [place] [address] Ck Landaverde, [facility] Pharmacy Hyperlipidemia Management 02/03/2021 Travel 02/03/2021 12:50 PM EDT Office Visit [place] [address] [employer] [facility] [address] [place] [address] Rojas Cunningham MD Dyslipidemia associated with type 2 diabetes mellitus (HCC) (Primary Dx); Post-surgical hypothyroidism; Vitamin D deficiency 02/01/[address] [employer] [employer] [address] Rojas Cunningham MD Labs Only 01/25/2021 Telephone [place] [address] [place] [address] Rojas Cunningham MD Labs Only 01/03/2021 Refill [place] [address] [employer] [place] [address] Roajs Cunningham MD Medication Refill 11/17/2020 Telephone [place] [address] [employer] [place] [address] Rojas Cunningham MD Symptom Call 11/16/2020 [facility]ty [facility] [address] [place] [address] Jael Baker [facility] Pharmacy Hyperlipidemia Management (Praluent Refill) 10/28/2020 Travel 10/28/2020 1:00 PM EST Office Visit [facility] [address] [employer] [address] [place] [phone] Rojas Cunningham MD Dyslipidemia associated with type 2 diabetes mellitus (HCC) (Primary Dx); Post-surgical hypothyroidism; Follicular thyroid cancer (HCC); Vitamin D deficiency 10/26/2020 [facility]ty [facility] [address] [place] [address] Jael Baker [facility] Hyperlipidemia Management (Praluent Refill) 10/20/2020 Telephone [facility] [address] [facility] [address] [place] [phone] Rojas Cunningham MD Labs Only 09/29/2020 [facility]ty [facility] [address] [place] [address] Little Cruz [facility] Hyperlipidemia Management 09/08/2020 [facility]ty [facility] [address] [place] [address] Khushi Watson [facility] Hyperlipidemia Management 08/19/2020 Refill [place] [address] [place] [address] Rojas Cunningham MD Medication Refill 08/11/2020 Refill [facility] [address] [place] [address] Rojas Cunningham MD Medication Refill 08/09/2020 [facility]ty [facility] 850 [place] [address] Yanick Wilks [facility] Hyperlipidemia Management (Praluent) 08/09/2020 Refill [facility] [address] [address] Rojas Cunningham MD Medication Refill 07/19/2020 [facility]ty [facility] [address] [place] [address] Yanick Wilks [facility] Hyperlipidemia Management (Praluent) 07/15/2020 Travel 07/15/2020 1:50 PM EDT Office Visit [place] [address] [address] [phone] Rojas Cunningham MD Dyslipidemia associated with type 2 diabetes mellitus (HCC) (Primary Dx); Post-surgical hypothyroidism; Vitamin D deficiency; Follicular thyroid cancer (HCC) 07/05/2020 Telephone [place] [address] [address] Rojas Cunningham MD Labs Only 06/23/2020 [facility]ty [facility] [address] [place], [place] [id number] Jael Baker [facility] Hyperlipidemia Management (Praluent) 06/22/[address] [phone] Rojas Cunningham MD Other (Office Notes) 06/02/2020 [facility]ty [facility] [address] [place] [address] Yanick Wilks [facility] Hyperlipidemia Management (Praluent) 05/10/2020 [facility]ty [facility] [address] [place] [address] Trisha Alexander, [facility] Pharmacy Hyperlipidemia Management (Praluent refill ) 04/12/2020 Travel 04/12/2020 10:30 AM EDT - 04/12/2020 11:59 PM EDT Hospital Encounter [facility] [address] [place] [address] Emg, Sudheer Ritu Bilateral carpal tunnel syndrome (Primary Dx) Discharge Disposition: Home or Self Care 03/29/2020 Telephone [facility] [address] [address] Rojas Cunningham MD Diabetes (Dexcom Information ) 03/29/2020 Orders Only [facility] [address] [place] [address] Michael Verdin MD Carpal tunnel syndrome, bilateral (Primary Dx) 2020 Travel 2020 [facility]ty [facility] [address] [place] [address] Trisha Alexander, [facility] Pharmacy Hyperlipidemia Management (Praluent refill ) 2020 9:50 AM EDT Office Visit [place] [address] [place] [address] Rojas Cunningham MD Dyslipidemia associated with type 2 diabetes mellitus (HCC) (Primary Dx); Post-surgical hypothyroidism; Follicular thyroid cancer (HCC); Vitamin D deficiency 03/17/2020 Telephone [facility] [address] [place] [address] Rojas Cunningham MD Other (Office Visit Reminder) 03/09/2020 Telephone [facility] [address] Rojas Cunningham MD Reschedule (03/18/20 appointment) 03/08/2020 Telephone [place] [address] [place] [address] Rojas Cunningham MD Lab Orders 02/23/2020 [facility]ty [facility] [address] [place] [address] Yanick Wilks, [facility] Hyperlipidemia Management (Praluent) 02/18/2020 Refill [facility] [address] [place] [address] Rojas Cunningham MD Medication Refill 01/22/2020 [facility]ty [facility] [address] [place] [address] Yanick Wilks [facility] Hyperlipidemia Management (Praluent refill) 01/21/2020 Telephone [place] [address] [employer] [facility] [address] [place] [address] Belia Spence APRN Medication Refill 12/26/2019 Specialty Pharmacy [facility] [address] [place] [address] Yanick Wilks [facility] Hyperlipidemia Management (Praluent refill) 12/25/2019 Travel 12/05/2019 Specialty Pharmacy [facility] [address] [place] [address] [place] [address] Yanick Wilks [facility] Hyperlipidemia Management (Praluent refill) 11/17/2019 Refill [facility] [address] [employer] [address] [place] [phone] Rojas Cunningham MD Medication Refill 11/13/2019 Specialty Pharmacy [facility] [address] [place] [address] [place] [address] Esteban Flores [facility] Hyperlipidemia Management 11/13/2019 Specialty Pharmacy [facility] [address] [place] [address] [place] [address] Starr Ceja, [facility] Pharmacy Hyperlipidemia Management; Pharmacy Initial Assessment 10/31/2019 Telephone [facility] [address] [employer] [address] [phone] Rojas Cunningham MD Labs Only (Genetic Testing for FH ) 10/13/2019 Specialty Pharmacy [facility] [address] [place] [address] [place], [place] [id number] Esteban Flores [facility] Hyperlipidemia Management 10/13/2019 1:40 PM EST Office Visit [facility] [address] [employer] [address] [address] Rojas Cunningham MD Dyslipidemia associated with type 2 diabetes mellitus (HCC) (Primary Dx); Post-surgical hypothyroidism; Follicular thyroid cancer (HCC); Vitamin D deficiency 10/02/2019 Telephone [facility] [address] [employer] [address] [place] [phone] Rojas Cunningham MD Labs Only 09/16/2019 Refill [facility] [address] [employer] [address] [address] Belia Spence APRN Medication Refill 08/08/2019 Refill [facility] [address] [place] [phone] Belia Spence APRN Medication Refill 07/02/2019 1:40 PM EDT Office Visit [facility] [address] [employer] [address] [place] [address] Rojas Cunningham MD Dyslipidemia associated with type 2 diabetes mellitus (HCC) (Primary Dx); Post-surgical hypothyroidism 06/23/2019 Telephone [facility] [address] [employer] [address] [place] [address] Rojas Cunningham MD Labs Only 06/23/2019 Telephone [facility] [address] [employer] [address] [place] [address] Rojas Cunningham MD Labs Only 05/29/2019 Telephone [facility] [address] [employer] [address] [place] [address] Rojas Cunningham MD Labs Only 05/16/2019 Telephone [facility] [address] [place] [address] Rosy Toth CCMA Other (accreditation) 03/04/2019 1:00 PM EDT Office Visit [facility] [address] [employer] [address] [place] [phone] Belia Spence APRN Uncontrolled type 2 diabetes mellitus with complication (HCC) (Primary Dx); Post-surgical hypothyroidism; Follicular thyroid cancer (HCC); Diabetic autonomic neuropathy associated with type 2 diabetes mellitus (HCC); Mixed dyslipidemia; Vitamin D deficiency; Statin intolerance; Essential hypertension; Sleep apnea, unspecified type; MEIER (nonalcoholic steatohepatitis) 02/27/2019 Telephone [facility] [address] [employer] [address] [place] [phone] Belia Spence APRN Labs Only 01/30/2019 Telephone [facility] [address] [phone] Rojas Cunningham MD Glucose Monitoring (01/17/19-01/29/19) 01/29/2019 Telephone [facility] [address] [phone] Rojas Cunningham MD CGMS Interpretation (Milagro Pro) 01/29/2019 1:00 PM EDT Office Visit [facility] [address] [phone] Uncontrolled type 2 diabetes mellitus with complication (HCC) (Primary Dx) 01/16/2019 2:30 PM EDT Office Visit [facility] [address] [phone] Rojas Cunningham MD Dyslipidemia associated with type 2 diabetes mellitus (HCC) (Primary Dx); Post-surgical hypothyroidism; Follicular thyroid cancer (HCC); Statin intolerance; Vitamin D deficiency 01/08/2019 Telephone [facility] [address] [address] Rojas Cunningham MD Labs Only 01/08/2019 Refill [facility] [address] [phone] Boy Brown MD Medication Refill 01/07/2019 Patient Outreach [facility] [address] Appointment [place] [address] Maranda Jorgensen, MOLD YARN SUPERVISOR Referral Follow-up 12/27/2018 Telephone [facility] [address] [phone] Belia Spence APRN Glucose Monitoring (11/21/18-12/24/18) 11/22/2018 Telephone [facility] [address] [place] [address] Rojas Cunningham MD Diabetes (Milagro due ) 11/22/2018 3:00 PM EST Office Visit [facility] [address] [place] [address] Willa Garcia, RN Uncontrolled type 2 diabetes mellitus with complication (HCC) (Primary Dx) 11/21/2018 Refill [facility] [address] [place] [phone] Rojas Cunningham MD Medication Refill 11/20/2018 Social Work [facility] [address] [place] [address] Jigna Dove LCSW Referral Follow-up 11/20/2018 Patient Outreach [facility] [address] [place], [place] [phone] Sherrie Khan RN Referral 11/20/2018 1:50 PM EST Office Visit [facility] [address] [place] [phone] Rojas Cunningham MD Dyslipidemia associated with type 2 diabetes mellitus (HCC) (Primary Dx); Post-surgical hypothyroidism 11/14/2018 Telephone [facility] [address] [place] [address] Rojas Cunningham MD Labs Only 11/13/2018 Telephone [facility] [address] [place] [address] Belia Spence APRN Labs Only 10/16/2018 Telephone [facility] [address] [place] [address] Rojas Cunningham MD Reschedule (10/24/18 appointment) 09/03/2018 Telephone [facility] [address] [facility] [address] [place] [phone] Belia Spence APRN Medication Refill 08/12/2018 Telephone [facility] [address] [phone] Rojas Cunningham MD Paperwork/forms (Office Notes) 07/22/2018 Telephone [facility] [address] [place] [address] Rosy Toth, CCMA Results 07/22/2018 Telephone [facility] [address] [place] [address] Nguyen Hays, CCMA Results 07/19/2018 10:20 AM EDT Office Visit [facility] [address] [phone] Belia Spence APRN Uncontrolled type 2 [...] PM EDT Hospital Encounter [facility] [address] [place] [address] S/P laparoscopic sleeve gastrectomy; Postsurgical malabsorption; Encounter for vitamin deficiency screening Discharge Disposition: Home or Self Care 07/05/2018 11:15 AM EDT Office Visit [facility] [address] [place] [address] Lauren Fraser APRN S/P laparoscopic sleeve gastrectomy (Primary Dx); Vitamin D deficiency; Uncontrolled type 2 diabetes mellitus with complication, with long-term current use of insulin (HCC); Mixed dyslipidemia; Gastroesophageal reflux disease without esophagitis; Postsurgical malabsorption; Encounter for vitamin deficiency screening 06/12/2018 Telephone [facility] [address] [employer] [facility] [address] [place] [phone] Rojas Cunningham MD Labs Only 05/07/2018 Telephone [facility] 1500 [facility] [address] [place] [phone] Belia Spence APRN Reschedule 05/03/2018 Telephone [facility] 1500 [facility] [address] [place] [phone] Rojas Cunningham MD Labs Only 04/15/2018 Telephone [facility] [address] [employer] [facility] [address] [place] [phone] Rojas Cunningham MD Reschedule 04/03/2018 Refill [facility] [address] [place] [address] Gila Winter APRN Medication Refill 02/18/2018 Telephone [facility] [address] [facility] [address] [place] [phone] Rojas Cunningham MD Lab Orders 01/22/2018 Telephone [facility] [address] [place] [address] Fernando Marielos Belem Mcfadden RMA Results 01/07/2018 Telephone [facility] [address] [place] [address] Fernando January Belem Mcfadden RMA Results 01/02/2018 8:49 AM EDT - 01/02/2018 11:59 PM EDT Hospital Encounter [facility] [address] [place] [address] Follicular thyroid cancer (HCC); Post-surgical hypothyroidism; Uncontrolled type 2 diabetes mellitus with complication, with long-term current use of insulin (HCC); S/P laparoscopic sleeve gastrectomy; Hypocalcemia Discharge Disposition: Home or Self Care 01/02/2018 10:00 AM EDT Office Visit [facility] [address] [facility] [address] [place] [address] Boy Brown MD Type 2 diabetes mellitus without retinopathy (HCC) (Primary Dx); KCS (keratoconjunctivitis sicca) (HCC); Contact dermatitis of right eyelid; Refractive error 12/27/2017 Telephone [facility] [address] [employer] [place] [phone] Rojas Cunningham MD Medication Refill 12/20/2017 Telephone [facility] [address] [employer] [place] [phone] Rojas Cunningham MD Samples 12/10/2017 2:15 PM EST Office Visit [facility] [address] [place] [address] Gila Winter APRN Class 2 [...] disease, esophagitis presence not specified 12/06/2017 Telephone [facility] [address] [employer] [address] [phone] Rojas Cunningham MD Results 12/03/2017 Telephone [facility] [address] [employer] [address] [address] Rojas Cunningham MD Results 11/29/2017 2:40 PM EST Office Visit [facility] [address] [employer] [address] [phone] Rojas Cunningham MD Uncontrolled type 2 diabetes mellitus with complication, with long-term current use of insulin (HCC) (Primary Dx); Post-surgical hypothyroidism; Follicular thyroid cancer (HCC); Mixed dyslipidemia; Vitamin D deficiency 11/20/2017 Telephone [facility] [address] [address] Rojas Cunningham MD Glucose Monitoring (BSL ) 11/19/2017 Telephone [facility] [address] [address] Rojas Cunningham MD Lab Orders 10/26/2017 Telephone [facility] [address] [address] Rojas Cunningham MD Results 10/26/2017 Orders Only [place] [address] [address] [address] Rojas Cunningham MD Uncontrolled type 2 diabetes mellitus with complication, with long-term current use of insulin (HCC) (Primary Dx); Post-surgical hypothyroidism; Follicular thyroid cancer (HCC); Mixed dyslipidemia 10/24/2017 11:30 AM EST - 10/24/2017 11:59 PM EST Hospital Encounter [facility] [address] [place] [address] Dyslipidemia associated with type 2 diabetes mellitus (HCC); Vitamin D deficiency; Post-surgical hypothyroidism Discharge Disposition: Home or Self Care 10/24/2017 10:50 AM EST Office Visit [facility] [address] [address] Rojas Cunningham MD Uncontrolled type 2 diabetes mellitus with complication, with long-term current use of insulin (HCC) (Primary Dx); Post-surgical hypothyroidism; Mixed dyslipidemia; Vitamin D deficiency 10/22/2017 Telephone [facility] [address] [address] Rojas Cunningham MD Reschedule 10/10/[address] [place] [address] Rojas Cunningham MD Samples 09/22/2017 [place] [address] Rojas Cunningham MD Medication Refill 09/12/[place] [address] Rojas Cunningham MD Glucose Monitoring (Milagro inserted) 09/12/2017 Refill [facility] [address] [place] [address] Gila Winter APRN Medication Refill 09/12/2017 1:30 PM EST Office Visit [place] [address] Rojas Cunningham MD Dyslipidemia associated with type 2 diabetes mellitus (HCC) (Primary Dx); Follicular thyroid cancer (HCC); Post-surgical hypothyroidism; Vitamin D deficiency 09/07/2017 [place] [address] Rojas Cunningham MD Glucose Monitoring (BSL) 08/28/2017 [place] [address] Rojas Cunningham MD Glucose Monitoring (BSL) 08/28/2017 10:30 AM EST Office Visit [facility] [address] [place] [address] Gila Winter APRN Class 2 [...] [facility] [address] [place] [address] Gila Winter APRN Medication Refill (Carafate) 08/03/2017 Telephone [facility] [address] [address] Boy Brown MD Medication Change 08/03/2017 10:15 AM EDT Office Visit [facility] [address] [address] Boy Brown MD Contact dermatitis of right eyelid (Primary Dx); Allergic conjunctivitis of both eyes 08/02/2017 1:10 PM EDT Office Visit [facility] [address] [employer] [facility] [address] [place] [phone] Rojas Cunningham MD Dyslipidemia associated with type 2 diabetes mellitus (HCC) (Primary Dx); Post-surgical hypothyroidism; Vitamin D deficiency 07/10/2017 Telephone [facility] [address] [employer] [facility] [address] [place] [phone] Rojas Cunningham MD Results ([facility]) 07/10/2017 2:00 PM EDT Office Visit [facility] [address] [place] [address] Obesity, Class II, BMI 35-39.9, with comorbidity (Primary Dx) 07/03/2017 1:40 PM EDT Office Visit [facility] [address] [employer] [address] [place] [phone] Rojas Cunningham MD Dyslipidemia associated with type 2 diabetes mellitus (HCC) (Primary Dx); Vitamin D deficiency 07/03/2017 11:15 AM EDT Office Visit [facility] [address] [place] [address] Gila Wintre, ACQUISITION MARKETING COORDINATOR Class 2 obesity due to excess calories [...] disease, esophagitis presence not specified 06/29/2017 Telephone [place] [address] [place] [address] Rojas Cunningham MD Medication Management 06/27/2017 Telephone [place] [address] [employer] [place] [phone] Rojas Cunningham MD Lab Orders 06/22/2017 Telephone [place] [address] [employer] [place] [phone] Rojas Cunningham MD Glucose Monitoring 06/22/2017 Telephone [place] [address] [employer] [address] [phone] Rojas Cunningham MD Samples 06/21/2017 Telephone [facility] [address] [place] [address] Rosy Toth CCMA Visit Follow Up (results) 06/21/2017 Telephone [place] [address] [employer] [address] [phone] Rojas Cunningham MD Medication Management 06/19/2017 Telephone [facility] [address] [employer] [address] [phone] Rojas Cunningham MD Diabetes (High blood sugars) 06/14/2017 1:35 PM EDT - 06/14/2017 11:59 PM EDT Hospital Encounter [facility] [address] [place] [address] Leg cramps; Thiamine deficiency; S/P laparoscopic sleeve gastrectomy; Postsurgical malabsorption Discharge Disposition: Home or Self Care 06/14/2017 1:00 PM EDT Office Visit [facility] [address] [place] [address] Lauren Fraser APRN Leg cramps (Primary Dx); Thiamine deficiency; S/P laparoscopic sleeve gastrectomy; Postsurgical malabsorption; Essential hypertension; Uncontrolled type 2 diabetes mellitus with complication, with long-term current use of insulin ([facility]); Sleep apnea, unspecified type 06/08/2017 Telephone [facility] [address] [place] [address] Fernando January TERESITA Burton Results (Lab results ) 06/06/2017 1:50 PM EDT - 06/06/2017 11:59 PM EDT Hospital Encounter [facility] [address] [place] [address] Fever, unspecified fever cause; Cough; History of sleeve gastrectomy; Platelet inhibition due to Plavix Discharge Disposition: Home or Self Care 06/06/2017 1:15 PM EDT Office Visit [facility] [address] [place] [address] Gila Winter APRN Fever, unspecified fever cause (Primary Dx); Cough; History of sleeve gastrectomy; Platelet inhibition due to Plavix; Gastroesophageal reflux disease, esophagitis presence not specified; Diarrhea of presumed infectious origin; Uncontrolled type 2 diabetes mellitus with complication, with long-term current use of insulin ([facility]); Class 2 obesity due to excess calories with serious comorbidity and body mass index (BMI) of 39.0 to 39.9 in adult; Mixed dyslipidemia; Essential hypertension; Sleep apnea, unspecified type; H/O heart artery stent; S/P laparoscopic sleeve gastrectomy 05/30/2017 7:47 AM EDT - 05/31/2017 3:22 PM EDT Hospital Encounter [facility] [address] [place] [address] Duncan Choi MD Discharge Disposition: Home or Self Care 05/30/2017 10:15 AM EDT - 05/30/2017 12:00 PM EDT Surgery [facility] [address] [place] [address] Duncan Choi MD LAPAROSCOPIC SLEEVE GASTRECTOMY POSSIBLE LAPAROSCOPIC HIATAL HERNIA REPAIR 05/30/2017 9:56 AM EDT Anesthesia Event [facility] [address] [place] [address] Mat Martinez MD Zehnder, Wende, ACQUISITION MARKETING COORDINATOR 05/23/2017 11:12 AM EDT - 05/23/2017 11:59 PM EDT Hospital Encounter [facility] [address] [place] [address] Pat, [facility] Preop testing (Primary Dx); Morbid obesity due to excess calories (HCC) Discharge Disposition: Home or Self Care 05/22/2017 Telephone [facility] [address] [place] [address] Rosy Toth CCMA Visit Follow Up 05/21/2017 1:30 PM EDT Office Visit [facility] [address] [place] [address] Gila Winter, ACQUISITION MARKETING COORDINATOR 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, unspecified vessel [...] Visit [facility] [address] [place] [address] Ara Horn, FREDDY,CDE Morbid obesity with BMI of 40.0-44.9, adult (HCC) (Primary Dx) 05/17/2017 11:00 AM EDT Office Visit [facility] [address] [place] [phone] Emre Houston MD Sleep apnea, unspecified [...] BMI of 40.0-44.9, adult (HCC) 05/11/2017 Telephone [facility] [address] [facility] [address] [place] [address] Rojas Cunningham MD Other 05/08/2017 Orders Only [facility] [address] [place] [phone] Gila Winter APRN Vitamin deficiency (Primary Dx) 05/08/2017 Telephone [facility] [address] [place] [address] Evi Jones, Clerical Staff Other 05/03/2017 Telephone [facility] [address] [place] [address] Urmila Massey Other 05/03/2017 8:30 AM EDT Office Visit [facility] [address] [place] [address] Morbid obesity due to excess calories (HCC) (Primary Dx) 05/03/2017 11:00 AM EDT Office Visit [facility] [address] [place] [address] Ara [place], FREDDY,CDE Morbid obesity, unspecified obesity type (HCC) (Primary Dx); Morbid obesity with BMI of 40.0-44.9, adult (HCC) 04/26/2017 Telephone [facility] [address] [facility] [address] [place] [address] Rojas Cunningham MD Other (MARY Lee ) 04/18/2017 2:00 PM EDT Office Visit [facility] [address] [place] [address] Duncan Choi MD Morbid obesity with BMI of 40.0-44.9, adult (HCC) (Primary Dx) 04/16/2017 4:30 PM EDT Office Visit [facility] [address] [place] [address] Morbid obesity due to excess calories (HCC) (Primary Dx) 04/06/2017 Telephone [facility] [place] [address] [facility] [address] [place] [address] Rojas Cunningham MD Other (U-500 patient) 04/03/2017 9:00 AM EDT Office Visit [facility] [address] [place] [address] Gila Winter APRN Morbid obesity [...] 11:59 PM EDT Hospital Encounter [facility] [address] [place] [address] Morbid obesity due to excess calories (HCC); Weight gain Discharge Disposition: Home or Self Care 03/30/2017 9:00 AM EDT Office Visit [facility] [address] [place] [address] Vika Hunter, PHD Other specified eating disorder (Primary Dx); Major depressive disorder, recurrent episode, in partial remission; Generalized anxiety disorder; No diagnosis on Sinclair II; Morbid obesity due to excess calories (HCC); BMI 40.0-44.9, adult (HCC) 03/26/2017 Telephone [facility] [address] [place] [address] Fernando Marielos TERESITA Burton Visit Follow Up (lab results) 03/19/2017 4:30 PM EDT Office Visit [facility] [address] [place] [address] Obesity (BMI 30-39.9) (Primary Dx) 03/13/2017 Orders Only [facility] [address] [place] [address] Gila Winter APRN Morbid obesity due to excess calories (HCC) (Primary Dx); Weight gain 03/12/2017 5:55 PM EDT - 03/12/2017 11:59 PM EDT Hospital Encounter [facility] [address] [place] [address] Weight gain; SATYA (obstructive sleep [...] Disposition: Home or Self Care 03/12/2017 Telephone [facility] [address] [employer] [address] [place] [phone] Rojas Cunningham MD Medication Management 03/12/2017 4:30 PM EDT Office Visit [facility] [address] [place] [address] Weight gain (Primary Dx) 03/06/2017 Telephone [facility] [address] [employer] [address] [place] [phone] Rojas Cunningham MD Glucose Monitoring 03/06/2017 Telephone [facility] [address] [employer] [address] [place] [phone] Rojas Cunningham MD Labs Only (question about labs) 03/06/2017 9:30 AM EDT Office Visit [facility] [address] [place] [address] Gila Winter APRN Weight gain [...] Hypocalcemia 03/06/2017 11:10 AM EDT Office Visit [address] [place] [phone] Rojas Cunningham MD Uncontrolled type 2 diabetes mellitus without complication, with long-term current use of insulin ([facility]) (Primary Dx); Vitamin D deficiency; Post-surgical hypothyroidism 01/31/2017 4:00 PM EDT Office Visit [facility] [address] [place] [address] Gila Winter, ANJANA History of weight gain (Primary Dx); Morbid obesity due to excess calories (HCC); BMI 40.0-44.9, adult (HCC) 01/26/2017 6:00 PM EDT Office Visit [facility] [address] [place] [address] Morbid obesity due to excess calories (HCC) 01/26/2017 Telephone [facility] [address] [place] [address] Urmila Massey 01/26/2017 10:10 AM EDT Office Visit [facility] [address] [place] [address] Clif Granado MD Uncontrolled type 2 diabetes mellitus with complication, with long-term current use of insulin (HCC) (Primary Dx); Sleep apnea, unspecified type; Morbid obesity due to excess calories (HCC) 01/08/2017 Refill [facility] [address] [employer] [place] [phone] Rojas Cunningham MD Medication Refill 01/02/2017 Telephone [facility] [address] [facility] [address] [place] [address] Belia Spence APRN Results 11/27/2016 Telephone [facility] [address] [facility] [address] [place] [address] Belia Spence APRN Results (labs) 11/27/2016 1:20 PM EST Office Visit [place] [address] [employer] [address] [place] [address] Belia Spence APRN Mixed dyslipidemia (Primary Dx); Uncontrolled type 2 diabetes mellitus with complication, with long-term current use of insulin (HCC); Post-surgical hypothyroidism; Follicular thyroid cancer (HCC); Essential hypertension; Sleep apnea, unspecified type; Vitamin D deficiency; Morbid obesity with BMI of 45.0-49.9, adult ([facility]) 10/31/2016 Telephone [facility] [address] [place] [address] Rojas Cunningham MD Labs Only 10/31/2016 Refill [facility] [address] [place] [phone] Rojas Cunningham MD Medication Refill 10/06/2016 Telephone [facility] [address] [place] [phone] Rojas Cunningham MD Cancellation 10/04/2016 Telephone [facility] [address] [facility] [address] [place] [address] Rojas Cunningham MD Labs Only 08/28/2016 Telephone [facility] [address] [place] [address] Rojas Cunningham MD Results 08/22/2016 1:10 PM EST - 08/22/2016 11:59 PM EST Hospital Encounter [facility] [address] [place] [address] Uncontrolled type 2 diabetes mellitus without complication, with long-term current use of insulin (HCC); Vitamin D deficiency; Mixed dyslipidemia; Post-surgical hypothyroidism; Follicular thyroid cancer (HCC) Discharge Disposition: Home or Self Care 08/22/2016 12:20 PM EST Office Visit [facility] [address] [place] [address] Rojas Cunningham MD Uncontrolled type 2 diabetes mellitus without complication, with long-term current use of insulin (HCC) (Primary Dx); Follicular thyroid cancer (HCC); Post-surgical hypothyroidism; Mixed dyslipidemia; Vitamin D deficiency; Statin intolerance 08/21/2016 Telephone [facility] [address] [place] [address] Rojas Cunningham MD Labs Only 08/18/2016 Telephone [facility] [address] [place] [address] Rojas Cunningham MD Labs Only (Reminder) 08/03/2016 Telephone [facility] [address] [facility] [address] [place] [address] Rojas Cunningham MD Results 07/25/2016 Telephone [facility] [address] [facility] [address] [place] [phone] Rojas Cunningham MD Results (Body Scan) 07/14/2016 6:35 AM EDT - 07/14/2016 11:59 PM EDT Hospital Encounter [facility] [address] [place] [address] Malignant neoplasm of thyroid gland (HCC) (Primary Dx); Follicular thyroid cancer (HCC) Discharge Disposition: Home or Self Care 07/13/2016 Telephone [facility] [address] [facility] [address] [place] [phone] Rojas Cunningham MD Medical Release 06/02/2016 Telephone [facility] [address] [facility] [address] [place] [phone] Rojas Cunningham MD Results 06/02/2016 Telephone [facility] [address] [facility] [address] [place] [phone] Rojas Cunningham MD Other (I-123 ) 05/29/2016 1:35 PM EDT - 05/29/2016 11:59 PM EDT Hospital Encounter [facility] [address] [place] [address] Diabetes mellitus type 2, uncontrolled (HCC); Vitamin D deficiency; Postablative hypothyroidism; History of thyroid cancer Discharge Disposition: Home or Self Care 05/29/2016 12:10 PM EDT Office Visit [facility] [address] [address] Rojas Cunningham MD Diabetes mellitus type 2, uncontrolled (HCC) (Primary Dx); Postablative hypothyroidism; History of thyroid cancer; Vitamin D deficiency 05/03/2016 Telephone [facility] [address] [facility] [address] [place] [phone] Rojas Cunningham MD Cancellation 02/03/2016 Telephone [facility] [address] [facility] [address] [place] [phone] Rojas Cunningham MD Other (paperwork for test strips) 01/19/2016 Refill [facility] [address] [place] [address] Rojas Cunningham MD Medication Refill 01/19/2016 10:40 AM EDT Office Visit [facility] [address] [place] [address] Rojas Cunningham MD Diabetes mellitus type 2, uncontrolled (HCC) (Primary Dx); Primary hypothyroidism; Vitamin D deficiency 01/10/2016 Telephone [facility] [address] [place] [phone] Rojas Cunningham MD Labs Only 01/06/2016 Refill [facility] [address] [place] [address] Rojas Cunningham MD Medication Refill 01/04/2016 Telephone [facility] [address] [place] [address] Rojas Cunningham MD Procedure 12/15/2015 Telephone [facility] [address] [place] [address] Rojas Cunningham MD Other 12/10/2015 Telephone [facility] [address] [place] [phone] Rojas Cunningham MD Cancellation 11/04/2015 Telephone [facility] [address] [place] [address] Rojas Cunningham MD Other (approval for [facility]) 09/16/2015 Telephone [facility] [address] [place] [address] Rojas Cunningham MD Lab Orders 09/16/2015 Refill [facility] [address] [place] [address] Rojas Cunningham MD Medication Refill 09/16/2015 Refill [facility] [address] [place] [address] Rojas Cunningham MD Medication Refill 08/26/2015 Telephone [place] [address] [place] [address] Rojas Cunningham MD Reschedule 07/15/[address] [place] [address] Rojas Cunningham MD Medication Management 06/22/2015 2:50 PM EDT Office Visit [place] [address] [place] [address] Rojas Cunningham MD Diabetes mellitus type 2, uncontrolled (HCC) (Primary Dx); Mixed dyslipidemia; Vitamin D deficiency 06/15/2015 Telephone [place] [address] [place] [address] Rojas Cunningham MD Labs Only 05/12/2015 Telephone [place] [address] [place] [address] Rojas Cunningham MD Reschedule; Labs Only 04/14/2015 Refill [place] [address] [place] [address] Rojas Cunningham MD Medication Refill 02/09/2015 Telephone [facility] [address] [place] [address] Rojas Cunningham MD Other (questions re:scripts) 02/09/2015 1:40 PM EDT Office Visit [facility] [place] [address] [place] [address] Rojas Cunningham MD Diabetes mellitus type 2, uncontrolled (HCC) (Primary Dx); Mixed dyslipidemia; Thyroid nodule; Vitamin D deficiency; Statin intolerance 02/08/2015 Telephone [facility] [address] [place] [phone] Rojas Cunningham MD Labs Only 02/02/2015 Telephone [facility] [address] [place] [address] Rojas Cunningham MD Lab Orders 02/01/2015 Telephone [facility] [address] [place] [address] Rojas Cunningham MD Labs Only 01/15/2015 Telephone [facility] [address] [place], [place] [phone] Rojas Cunningham MD Reschedule 12/11/2014 Telephone [facility] [address] [place], [place] [phone] Rojas Cunningham MD Medication Refill 11/09/2014 Telephone [facility] [address] [place] [address] Rojas Cunningham MD Glucose Monitoring (BG logs) 11/03/2014 Telephone [facility] [address] [place] [phone] Rojas Cunningham MD Medication Management 10/26/2014 Telephone [facility] [address] [place] [address] Rojas Cunningham MD Results 10/20/2014 1:20 PM EST Office Visit [facility] [place] [address] [place] [address] Rojas Cunningham MD Diabetes mellitus type 2, uncontrolled (HCC) (Primary Dx); Mixed dyslipidemia; Thyroid nodule; Vitamin D deficiency 10/15/2014 Telephone [place] [address] [place] [address] Rojas Cunningham MD Labs Only 10/13/2014 Telephone [place] [address] [place] [address] Rojas Cunningham MD Lab Orders 10/09/[address] [place] [address] Rojas Cunningham MD Labs Only 07/24/2014 Telephone [place] [address] [address] [place] [address] Rojas Cunningham MD Medication Management (U500 - resume) 07/16/2014 Telephone [place] [address] [place] [address] Rojas Cunningham MD Medication Management 06/18/2014 Telephone [place] [address] [place] [address] Juanita Sims, RD,LD,CDE Diabetes (I pro interpretation U 500 Vgo 20) 06/11/2014 Telephone [facility] [address] [place] [address] Shannan Wolfe, RN,CDE Other (scalp lesions) 06/11/2014 2:40 PM EDT Office Visit [place] [address] [place] [address] Rojas Cunningham MD Diabetes mellitus type 2, uncontrolled (HCC) (Primary Dx); Mixed dyslipidemia; Vitamin D deficiency 06/04/2014 Telephone [facility] [address] [place] [phone] Rojas Cunningham MD Medication Refill 05/29/2014 Telephone [facility] [address] [place] [phone] Rojas Cunningham MD Other (Pt.Asst/Senia) 05/13/2014 Telephone [facility] [address] [place] [phone] Rojas Cunningham MD Glucose Monitoring 04/22/2014 Telephone [facility] [address] [place], [place] [phone] Rojas Cunningham MD Other (Vgo/U500) 04/13/2014 Telephone [facility] [address] [place] [phone] Rojas Cunningham MD Medication Management (Krys Cares form) 04/07/2014 Telephone [facility] [address] [place] [phone] Shannan Keita, FREDDY,CDE Other 03/27/2014 Refill [facility] [address] [place] [phone] Rojas Cunningham MD Medication Refill 03/19/2014 1:30 PM EDT Office Visit [facility] [address] [address] Boris May MD Diabetes mellitus type 2, uncontrolled (HCC) (Primary Dx); Myopic astigmatism, bilateral; Presbyopia OU; Dry eyes, bilateral 03/17/2014 3:00 PM EDT Office Visit [facility] [place] [phone] Chris Serra MD Mixed dyslipidemia (Primary Dx); Hypertension; Chest pain 03/16/2014 Telephone [facility] [address] [place] [phone] Rojas Cunningham MD Medication Management 03/12/2014 Telephone [facility] [address] [place], [place] [phone] Rojas Cunningham MD Results 03/10/2014 12:00 PM EDT Office Visit [address] [employer] [address] [place] [address] Rojas Cunningham MD Diabetes mellitus type 2, uncontrolled (HCC) (Primary Dx); Mixed dyslipidemia; Thyroid nodule; Vitamin D deficiency 03/05/2014 Telephone [facility] [address] [place], [place] [phone] Shannan Wolfe, RN,CDE Diabetes; Glucose Monitoring 03/04/2014 Telephone [facility] [address] [place] [address] Rojas Cunningham MD Other ([facility] lab orders) 03/04/2014 Telephone [facility] [address] [place] [address] Selma Kruger, RN,CDE Diabetes (question) 03/03/2014 Telephone [facility] [address] [place] [phone] Rojas Cunningham MD Other (calling in BS) 02/16/2014 Telephone [facility] [address] [place] [phone] Rojas Cunningham MD Labs Only 02/11/2014 Telephone [facility] [address] [facility] [address] [place] [address] Rojas Cunningham MD Medication Management 02/10/2014 Telephone [facility] [address] [facility] [address] [place] [address] Priscilla Patel RN,CDE Insulin Titration (U500 start) 02/10/2014 11:20 AM EDT Office Visit [address] [facility] [address] [place] [address] Rojas Cunningham MD Diabetes mellitus type 2, uncontrolled (HCC) (Primary Dx); Mixed dyslipidemia; Thyroid nodule; Vitamin D deficiency 01/30/2014 3:35 PM EDT - 01/30/2014 11:59 PM EDT Hospital Encounter [facility] [address] [place] [address] Vitamin D deficiency (Primary Dx); Diabetes mellitus type 2, uncontrolled (HCC); Thyroid nodule; Mixed dyslipidemia Discharge Disposition: Home or Self Care 01/30/2014 Telephone [place] [address] [place] [address] Rojas Cunningham MD Samples (Levemir/Novolog) 01/28/2014 Telephone [place] [address] [place] [address] Rojas Cunningham MD Reschedule 12/26/2013 Telephone [facility] [address] [facility] [address] [place] [address] Rojas Cunningham MD Medication Management 12/25/2013 Telephone [facility] [address] [facility] [address] [place] [address] Rojas Cunningham MD Glucose Monitoring (download meter) 12/25/2013 Telephone [facility] [address] [facility] [address] [place] [address] Rojas Cunningham MD Samples (Levemir/Novolog) 12/16/2013 Telephone [facility] [address] [email or web address] [facility] [address] [place] [address] Rojas Cunningham MD Medication Management 12/11/2013 [place] [address] Chris Serra MD Medication Refill 12/11/2013 [place]phone [place] [address] Chris Serra MD No Show 11/21/2013 Telephone [facility] [address] [email or web address] [facility] [address] [place], [place] [phone] Rojas Cunningham MD Glucose Monitoring 11/19/2013 Telephone [facility] [address] [email or web address] [facility] [address] [place], [place] [phone] Rojas Cunningham MD Medication Management 11/03/2013 Telephone [facility] [address] [email or web address] [facility] [address] [place] [address] Rojas Cunningham MD Medication Refill 10/31/2013 Telephone [facility] [address] [employer] [address] [place], [place] [phone] Rojas Cunningham MD Reschedule 10/07/2013 11:20 AM EST Office Visit [facility] [place] [address] [place] [place] [address] Rojas Cunningham MD Diabetes mellitus type 2, uncontrolled (HCC) (Primary Dx); Mixed dyslipidemia; Vitamin D deficiency; Thyroid nodule 09/29/2013 12:25 PM EST - 09/29/2013 11:59 PM EST Hospital Encounter [facility] [address] [place] [address] Hyperlipidemia (Primary Dx); Diabetes mellitus type 2, uncontrolled (HCC); Thyroid nodule; Hypovitaminosis D Discharge Disposition: Home or Self Care 09/29/2013 Telephone [place] [address] [place] [phone] Rojas Cunningham MD Other (downloaded meter) 09/23/2013 Orders Only [place] [address] [place] [place] [address] Annie Han, gasoline engine inspector mellitus type 2, uncontrolled (HCC) (Primary Dx) 09/23/2013 Telephone [place] [address] [place] [address] Rojas Cunningham MD Medication Refill (URGENT) 09/08/2013 Telephone [place] [address] [address] [place] [address] Rojas Cunningham MD Other (blood sugar logs) 08/20/2013 Telephone [place] [address] [address] [place] [address] Rojas Cunningham MD Results 08/14/2013 12:25 PM EST - 08/14/2013 11:59 PM EST Hospital Encounter [place] [address] [place] [address] Diabetes mellitus type 2, uncontrolled (HCC) (Primary Dx); Vitamin D deficiency; Mixed hyperlipidemia Discharge Disposition: Home or Self Care 08/14/2013 11:40 AM EST Office Visit [place] [address] [place] [address] Rojas Cunningham MD Diabetes mellitus type 2, uncontrolled (HCC) (Primary Dx); Mixed hyperlipidemia; Vitamin D deficiency 08/11/2013 Telephone [place] [address] [place] [address] Rojas Cunningham MD Labs Only 08/06/2013 Refill [facility] [address] [phone] Chris Serra MD Medication Refill 07/16/2013 Refill [place] [address] [place] [address] Rojas Cunningham MD Medication Refill 07/15/2013 Refill [place] [address] [place] [address] Rojas Cunningham MD Medication Refill 07/15/2013 Refill [facility] [place] [facility] [address] [place] [address] Joe Ambrosio MD Medication Refill 07/08/[address] [address] Lm EmeraldTANIKA 07/02/2013 5:00 PM EDT Office Visit [address] [address] Boris Sarmiento MD Leg cramps (Primary Dx) 07/02/2013 12:50 PM EDT Office Visit [place] [address] [place] [address] Rojas Cunningham MD Diabetes mellitus type 2, uncontrolled (HCC) (Primary Dx); Vitamin d deficiency; Mixed hyperlipidemia 07/01/2013 Telephone [place] [address] [place] [address] Rojas Cunningham MD Follow-up 06/23/2013 2:40 PM EDT - 06/25/2013 2:37 PM EDT Hospital Encounter [facility] [place] [address] Boris Rodriguez MD Pilger, Jeffrey M, MD Upadhayay, Niraj, MD Hypertensive urgency (Primary Dx); Chest pain; Paresthesia; Sleep apnea; Diabetes mellitus type 2, uncontrolled (HCC); Facial droop; Fibromyalgia; Hyperlipidemia; Angina at rest; Hypertension; Unspecified essential hypertension; Chest pain, unspecified; Disturbance of skin sensation Discharge Disposition: Home or Self Care 06/23/2013 Telephone [facility] [place] [facility] [address] [place] [address] Chris Serra MD Edema; Pain (neck/shoulder) 06/10/2013 9:15 AM EDT Office Visit [facility] [place] [facility] [address] [place] [address] Chris Serra MD Hyperlipidemia (Primary Dx); Hypertension; CHF (congestive heart failure) (HCC); Chest pain; Left sided numbness; Other screening mammogram 04/17/2013 11:30 AM EDT - 04/17/2013 11:59 PM EDT Hospital Encounter [facility] [address] [place] [phone] Emre [place] MD Sleep apnea (Primary Dx); Fibromyalgia; Hyperlipidemia; Diabetes mellitus type 2, uncontrolled (HCC); Hypertension; Obesity; Chest pain; Left sided numbness; CHF (congestive heart failure) (HCC) Discharge Disposition: Home or Self Care 04/16/2013 Telephone [facility] [place] [address] [place] [address] Asha Ambrocio MA Other 03/28/2013 11:20 AM EDT Office Visit [facility] [place] [facility] [address] [place] [address] [place] [address] Boris Sarmiento MD Abscess of groin, left (Primary Dx) 02/18/2013 Refill [facility] [address] [address] Chris Serra MD Medication Refill 02/18/2013 Refill [facility] [place] [address] Lonnie Dotson MD Medication Refill 02/06/2013 9:20 AM EDT Office Visit [facility] [place] [facility] [address] [place] [address] [place] [address] Boris Sarmiento MD Sore throat (Primary Dx); Cervical lymphadenopathy; Viral gastroenteritis 01/22/2013 1:15 PM EDT Office Visit [facility] [place] [address] [place] [address] Chris Serra MD Hypertension (Primary Dx); CHF (congestive heart failure) (HCC); Hyperlipidemia; Fibromyalgia; Chest pain 01/14/2013 Telephone [facility] [place] [facility] [address] [place] [address] [place] [address] Boris Sarmiento MD Visit Follow Up 01/10/2013 11:10 AM EDT Office Visit [facility] [place] [facility] [address] [place] [address] [place] [address] Boris Sarmiento MD Diabetes mellitus type 2, uncontrolled (HCC) (Primary Dx); Hypertension; Hyperlipidemia; CHF (congestive heart failure) (HCC); Headache 01/01/2013 6:05 PM EDT - 01/05/2013 1:55 PM EDT Hospital Encounter [facility] [place] [address] Boris Rivas MD Connelly, Kevin D, MD [...] AM EDT Surgery Chris Serra MD CARDIAC PROCEDURE-RESIN FILTERER ONLY 12/11/2012 Telephone [facility] [address] [place] [address] Rojas Cunningham MD Labs Only 11/14/2012 Telephone [facility] [address] [place] [address] Rojas Cunningham MD Wound Infection 09/25/2012 Telephone [facility] [address] [place] [address] Rojas Cunningham MD Other (report blood sugar) 09/24/2012 9:00 AM EST - 09/24/2012 11:59 PM EST Hospital Encounter [facility] Sleep [facility] [address] [place] [address] Emre [place] MD Sleep apnea (Primary Dx); Fibromyalgia; Hyperlipidemia; Diabetes mellitus type 2, uncontrolled (HCC); Hypertension; Obesity Discharge Disposition: Home or Self Care 09/13/2012 Telephone [facility] [place] [address] [place] [address],CDE Other (bs logs) 09/06/2012 Telephone [facility] [place] [address] [place] [address],LD,CDE Diabetes (U 500) 08/26/2012 Telephone [facility] [place] [place] [address] [address] [place] [address] Rojas Cunningham MD Medication Problem 08/13/2012 Telephone [facility] [place] [address] [address] [place] [address] Rojas Cunningham MD Medication Management 08/12/2012 Telephone [facility] [place] [address] [address] [place] [address] Willa Genao RN,CDE Medication Management 08/12/2012 Telephone [facility] [place] [address] [address] [place] [place] [address] Willa Genao RN,CDE Medication Management 08/12/2012 11:00 AM EST Office Visit [facility] [place] [address] [address] Rojas Cunningham MD Diabetes mellitus type 2, uncontrolled (HCC) (Primary Dx); Vitamin d deficiency; Hyperlipidemia; Thyroid nodule 08/09/2012 1:40 PM EDT - 08/09/2012 11:59 PM EDT Hospital Encounter [facility] [address] [place] [phone] Diabetes mellitus type 2, uncontrolled (HCC); Hyperlipidemia; Vitamin d deficiency Discharge Disposition: Home or Self Care 08/06/2012 Telephone [facility] [address] [place] [address] Rojas Cunningham MD Labs Only 07/31/2012 Telephone [facility] [address] [place] [address],LD,CDE Diabetes (blood sugar logs) 07/23/2012 Telephone [facility] [address] [place] [address] Shannan Wolfe RN,CDE Other 07/15/2012 7:10 PM EDT - 07/15/2012 10:48 PM EDT Emergency [place] [address] Billie Bueno MD Abdominal pain, other specified site; Vomiting alone; Unspecified essential hypertension; Type II or unspecified type diabetes mellitus without mention of complication, not stated as uncontrolled (HCC) Discharge Disposition: Home or Self Care 06/25/2012 Telephone [facility] [address] [place] [address] Shannan Wolfe RN,CDE Diabetes 06/25/2012 9:45 AM EDT - 06/25/2012 11:59 PM EDT Hospital Encounter [facility] Sleep Disorder [address] [place] [address] Emre Houston MD Sleep apnea (Primary Dx); Fibromyalgia; Hyperlipidemia; Diabetes mellitus type 2, uncontrolled (HCC); Hypertension; Obesity Discharge Disposition: Home or Self Care 06/16/2012 11:47 AM EDT - 06/16/2012 12:21 PM EDT Emergency [facility] [address] [place] [address] [place] [address] Sadi Joe MD Plantar fasciitis; Peripheral neuropathy Discharge Disposition: Home or Self Care 06/05/2012 Telephone [place] [address] [place] [address] Rojas Cunningham MD Other (error) 06/04/2012 Telephone [place] [address] [place] [address] Willa Genao, RN,CDE Blood Sugar Problem 05/30/2012 Telephone [facility] [address] [place] [address] Shannan Wolfe RN,CDE Blood Sugar Problem 05/22/2012 Telephone [place] [address] [address] [place] [phone] Willa Genao RN,CDE Other (Order new test strips) 05/22/2012 Telephone [place] [address] [place] [address] Willa Genao RN,CDE Medication Management 05/01/2012 Telephone [place] [address] [place] [address] Rojas Cunningham MD Results 04/28/2012 7:00 PM EDT - 04/28/2012 11:59 PM EDT Hospital Encounter [facility] [place] [address] Obstructive sleep apnea (Primary Dx) Discharge Disposition: Home or Self Care 04/25/2012 12:32 PM EDT - 04/25/2012 11:59 PM EDT Hospital Encounter [facility] [place] [address] Tristan Ron MD Dysphagia Discharge Disposition: Home or Self Care 04/23/2012 9:14 AM EDT - 04/23/2012 11:59 PM EDT Hospital Encounter [facility] Sleep Disorder [address] [address] Emre Houston MD Sleep apnea (Primary Dx); Obesity; Fibromyalgia; Diabetes mellitus type 2, uncontrolled (HCC); Hypertension; Poor sleep hygiene Discharge Disposition: Home or Self Care 04/18/2012 Telephone [facility] [address] [place] [address] SadieAimee montano TERESITA Results 04/15/2012 9:00 AM EDT - 04/15/2012 11:59 PM EDT Hospital Encounter [facility] [address] [facility] [place] [address] Tristan Ron MD Thyroid mass Discharge Disposition: Home or Self Care 04/10/2012 7:00 PM EDT - 04/10/2012 11:59 PM EDT Hospital Encounter [facility] Sleep Disorder [address] [place] [address] Obstructive sleep apnea (Primary Dx) Discharge Disposition: Home or Self Care 04/09/2012 Telephone [facility] [address] [place] [address] Tiffany England, [facility] Medication Management 04/09/2012 9:45 AM EDT - 04/09/2012 11:59 PM EDT Hospital Encounter [facility] Sleep Disorder [address] [place] [address] Emre Houston MD Discharge Disposition: Home or Self Care 04/08/2012 8:37 AM EDT - 04/08/2012 11:59 PM EDT Hospital Encounter [facility] [address] [facility] [place] [address] Joe Ambrosio MD Dysarthria; Facial weakness Discharge Disposition: Home or Self Care 04/03/2012 10:35 AM EDT - 04/03/2012 11:59 PM EDT Hospital Encounter [facility] [address] [place] [address] Diabetes mellitus type 2, uncontrolled (HCC); Vitamin D deficiency; FHx: early coronary artery disease; Thyroid nodule Discharge Disposition: Home or Self Care 04/03/2012 9:40 AM EDT Office Visit [facility] [address] [place] [address] Rojas Cunningham MD Diabetes mellitus type 2, uncontrolled (HCC) (Primary Dx); Thyroid nodule; Vitamin D deficiency; FHx: early coronary artery disease 04/02/2012 10:50 AM EDT - 04/02/2012 11:59 PM EDT Hospital Encounter [facility] [address] [place] [phone] Diabetes mellitus type 2, uncontrolled (HCC); Hyperlipidemia; Hypertension; Obesity; Thyroid nodule Discharge Disposition: Home or Self Care 04/01/2012 Telephone [facility] [place] [address] [place] [address] Joe Ambrosio MD Medication Change 04/01/2012 Telephone [place] [address] [place] [address] Rojas Cunningham MD Labs Only 04/01/2012 11:00 AM EDT Office Visit [facility] [place] [address] [place] [address] Joe Ambrosio MD Migraine; Obesity; Fibromyalgia; Hypertension; Diabetes mellitus type 2, uncontrolled (HCC); Hyperlipidemia; Sleep apnea; Dysarthria; Facial weakness 02/29/2012 Telephone [place] [address] [place] [address] Ara Howell APRN Medication Management (?refill for Bentyl?) 02/19/2012 2:32 PM EDT - 02/19/2012 5:35 PM EDT Emergency [place] [address] Kyle Cortez MD Gastroenteritis Discharge Disposition: Home or Self Care 02/13/2012 11:12 AM EDT - 02/13/2012 11:59 PM EDT Hospital Encounter [facility] [address] [place] [address] Georgette Isbell Demyelinating disease of central nervous system, unspecified (HCC) Discharge Disposition: Home or Self Care 02/01/2012 1:15 PM EDT - 02/01/2012 11:59 PM EDT Hospital Encounter [facility] [address] [place] [address] Arely Karimi MD Sarcoidosis Discharge Disposition: Home or Self Care 01/31/2012 Telephone [place] [address] [place] [address] Armando Chaves MD Release of Information 01/24/2012 1:00 PM EDT Office Visit [facility] [place] [address] [place] [address] Juanita Schuster, RD,LD,CDE Diabetes mellitus type 2, uncontrolled (HCC) (Primary Dx) 01/11/2012 Telephone [place] [address] [place] [address] Armando Chaves MD Results 01/11/2012 1:30 PM EDT Office Visit [place] [address] [place] [address] Michela Morton, RN,CDE Diabetes mellitus type 2, uncontrolled (HCC); Hyperlipidemia; Hypertension; Obesity; Thyroid nodule 01/05/2012 Telephone [place] [address] [place] [address] Armando Chaves MD Medication Refill 01/05/2012 Telephone [place] [address] [place] [address] Ara Howell, ACQUISITION MARKETING COORDINATOR Results 01/04/2012 11:05 AM EDT - 01/04/2012 11:59 PM EDT Hospital Encounter [facility] [address] [place] [phone] Diabetes mellitus type 2, uncontrolled (HCC); Hyperlipidemia; Hypertension; Obesity; Hot flashes Discharge Disposition: Home or Self Care 12/29/2011 Telephone [facility] [address] [place] [address] Tanvi Guy Referral (Diabetes Education) 12/28/2011 3:10 PM EDT Office Visit [place] [address] [place] [address] Ara Howell APRN Diabetes mellitus type 2, uncontrolled (HCC); Hyperlipidemia; Hypertension; Obesity; Thyroid nodule 12/26/2011 Telephone [place] [address] [place] [address] Armando Chaves MD Labs Only 11/22/2011 9:55 AM EST - 11/22/2011 11:59 PM EST Hospital Encounter [place] [facility] [place] [address] AkilahGeorgette Yadav Chest pain, unspecified Discharge Disposition: Home or Self Care 11/09/2011 10:14 PM EST - 11/10/2011 2:20 AM EST Emergency [facility] [address] [facility] [place] [address] Cal Pate MD Abdominal pain Discharge Disposition: Home or Self Care 11/02/2011 Telephone [place] [address] [place] [address] Harper Mcgrath MD Follow-up 09/15/2011 7:30 AM EST - 09/15/2011 11:59 PM EST Hospital Encounter [facility] Hand Therapy [address] [address] Emerald Yan PT CHT Discharge Disposition: Home or Self Care 09/11/2011 Telephone [place] [address] [place] [address] Michela Morton, RN,CDE Other (log) 08/25/2011 1:00 PM EST - 08/25/2011 11:59 PM EST Hospital Encounter [facility] [place] [address] Tristan Ron MD Thyroid mass Discharge Disposition: Home or Self Care 08/24/2011 Telephone [place] [address] [place] [address] Michela Morton, RN,CDE Other (log) 08/18/2011 8:40 AM EST Office Visit [facility] [address] [place] [address] Harper Mcgrath MD Diabetes mellitus type 2, uncontrolled (HCC) (Primary Dx); Hyperlipidemia; Hypertension; Obesity; Hot flashes 08/16/2011 1:45 PM EST - 08/16/2011 11:59 PM EST Hospital Encounter [facility] [address] [place] [address] Tristan Ron MD Thyroid mass Discharge Disposition: Home or Self Care 07/25/2011 1:30 PM EDT Office Visit [facility] [address] [place] [address] Michela Morton RN,CDE Diabetes mellitus type 2, uncontrolled (HCC) 07/18/2011 1:30 PM EDT Office Visit [facility] [address] [place] [address] Michela Morton RN,CDE Diabetes mellitus type 2, uncontrolled (HCC) (Primary Dx) 07/11/2011 1:30 PM EDT Office Visit [facility] [address] [place] [address],LD,CDE Diabetes mellitus type 2, uncontrolled (HCC) (Primary Dx) 07/06/2011 8:45 AM EDT - 07/06/2011 9:00 AM EDT Surgery [facility] [place] [address] Edyta Chun MD CARPAL TUNNEL RELEASE 07/06/2011 5:45 AM EDT - 07/06/2011 9:05 AM EDT Hospital Encounter [facility] [place] [address] Edyta Chun MD Discharge Disposition: Home or Self Care 06/27/2011 Telephone [facility] [address] [place] [address] Rachael Carvalho RN Blood Sugar Problem 06/27/2011 10:10 AM EDT Office Visit [facility] [address] [place] [address],CDE Diabetes mellitus type 2, uncontrolled (HCC) 06/14/2011 10:45 AM EDT - 06/14/2011 11:59 PM EDT Hospital Encounter [facility] [place] [address] Hyperlipidemia; Hypertension; Hot flashes; Diabetes mellitus type 2, uncontrolled (HCC) Discharge Disposition: Home or Self Care 05/31/2011 9:00 AM EDT Office Visit [facility] [address] [place] [address] Harper Mcgrath MD Diabetes mellitus type 2, uncontrolled (HCC) (Primary Dx); Hot flashes; Hyperlipidemia; Hypertension; Obesity 05/25/2011 3:11 PM EDT - 05/25/2011 11:59 PM EDT Hospital Encounter [facility] [address] [place] [address] Mendel Resendiz DO Carpal tunnel syndrome Discharge Disposition: Home or Self Care 05/25/2011 1:55 PM EDT - 05/25/2011 3:10 PM EDT Hospital Encounter [facility] [address] [place] [address] Mendel Resendiz DO Disturbance of skin sensation; Blurred vision; Urinary incontinence Discharge Disposition: Home or Self Care 05/11/2011 1:46 PM EDT - 05/11/2011 11:59 PM EDT Hospital Encounter [facility] [address] [place] [address] Wiley Garza MD Stone Discharge Disposition: Home or Self Care 05/11/2011 1:45 PM EDT Hospital Encounter [facility] [address] [place] [address] Wiley Garza MD Back pain; History of kidney stones; Flank pain Discharge Disposition: Home or Self Care 12/27/2010 1:45 PM EDT - 12/27/2010 2:40 PM EDT Surgery [facility] [address] [place] [address] Wiley Garza MD CYSTOSCOPY BLADDER /URETHRA BIOPSY 12/27/2010 11:49 AM EDT - 12/27/2010 4:57 PM EDT Hospital Encounter [facility] SAME DAY SURG[facility] [address] [place] [facility] [phone] Wiley Garza MD Discharge Disposition: Home or Self Care 12/23/2010 10:00 AM EDT - 12/23/2010 11:59 PM EDT Hospital Encounter [facility] PRE-ADMIT TEST[facility] [address] [place] [facility] [phone] Pat, [facility] Discharge Disposition: Home or Self Care 11/29/2010 9:11 AM EST - 11/29/2010 11:59 PM EST Hospital Encounter [facility] [address] [place] [facility] [phone] Mendel Resendiz, Pyelonephritis, unspecified; Abdominal pain, unspecified site; Abdominal pain, right upper quadrant; Other abnormal blood chemistry Discharge Disposition: Home or Self Care 11/25/2010 12:37 AM EST - 11/25/2010 3:54 AM EST Emergency [place] [facility] [address] [place] [facility] [phone] Mahesh Page MD Pyelonephritis; Elevated liver function tests; Abdominal pain, right upper quadrant; Right flank pain Discharge Disposition: Home or Self Care 11/11/2010 2:30 PM EST - 11/11/2010 11:59 PM EST Hospital Encounter [facility] [address] [place] [address] [place] Garza MD Pain Discharge Disposition: Home or Self Care 07/18/2010 2:43 PM EDT - 07/19/2010 6:44 PM EDT Hospital Encounter [facility] [address] [place] [address] Mahesh Page MD Laib, Emily A, MD Chest pain; Hyperglycemia; Dyspnea Discharge Disposition: Home or Self Care 11/05/2009 - 11/05/2009 11:59 PM EST Hospital Encounter [facility] Discharge Disposition: Home or Self Care 10/20/2009 7:08 AM EST - 10/20/2009 9:55 AM EST Hospital Encounter [facility] Lisandro Joyner MD 10/11/2009 8:08 AM EST - 10/11/2009 3:00 PM EST Hospital Encounter [facility] [place] Garza MD 09/08/2009 5:29 PM EST - 09/09/2009 6:30 PM EST Hospital Encounter [facility] [place] Bello MD Hollis, Robert E., MD 08/30/2009 6:00 AM EST - 08/30/2009 11:30 AM EST Hospital Encounter [facility] WSDS [facility] KeyonaMahesh duran 08/01/2009 1:50 PM EDT - 08/01/2009 4:09 [...] 09/19/1994 7:27 PM EST Hospital Encounter [facility] [address] [place], [place] [address]Griselda MD 09/15/1994 12:33 PM EST - 09/15/1994 11:59 PM EST Hospital [facility] 08/30/1994 10:59 AM EST - 08/30/1994 4:50 PM EST [facility]/11/1994 5:37 AM EST - 08/11/1994 11:59 PM EST [facility] 07/25/1994 5:52 AM EDT - 07/25/1994 11:59 PM EDT Hospital Encounter [facility] 05/09/1994 10:12 PM EDT - 05/09/1994 [...] to not take the medication, Reported on 07/09/2025 clopidogrel (PLAVIX) 75 mg Oral Tablet Take [...] to not take the medication, Reported on 07/09/2025 loteprednol etabonate (LOTEMAX) 0.5 % Opht Ointment Apply 0.5 Strips to eye nightly. Instill one half inch strip. 1 Tube 2 08/03/20 17 Active Additional Information Patient not taking.Reason: Pt electing to not take the medication, Reported on 07/09/2025 CALCIUM CITRATE/VITAMIN D3 (CALCIUM CITRATE + D ORAL) Take by mouth. Activ e mupirocin (BACTROBAN) 2 % Nasl Ointment by Nasal route 2 times daily. Active L GASSERI/B BIFIDUM/B LONGUM (72xuan ORAL) Take by mouth. Ac tive Eflornithine 13.9 % Top Cream Apply daily as directed 30 g 5 09/12/20 17 Active Additional Information Patient not taking.Reason: Pt electing to not take the medication, Reported on 07/09/2025 famotidine (PEPCID) 20 mg Oral Tablet Take [...] to not take the medication, Reported on 07/09/2025 montelukast (SINGULAIR) 10 mg Oral Tablet Take 10 mg by mouth daily. 06/11/20 18 Active fluticasone (FLONASE) 50 mcg/actuation Nasl [place], Suspension 06/25/20 18 Active EPINEPHrine (EPIPEN) 0.3 mg/0.3 mL Inj Auto-Injector 04/02/20 18 Active UNABLE TO FIND Med Name: Hemp Active UNABLE TO FIND Med Name: thermofight X keto Active 21/iron fu/folic acid ( COMPLETE ORAL) Take by mouth. Activ e cyclobenzaprine (FLEXERIL) 10 mg Oral Tablet 07/13/20 Active meloxicam (MOBIC) 15 mg Oral Tablet Take 15 mg by mouth daily. 09/13/20 Active divalproex (DEPAKOTE) 250 mg Oral Tablet, [...] to not take the medication, Reported on 07/09/2025 FREESTYLE PRECISION NUBIA STRIPS Mis StripIndications:U ncontrolled type 2 diabetes mellitus with complication Use to check blood glucose 2 times daily as instructed. Dx code: E11.8 100 Each 5 03/17/20 Active Additional Information Patient not taking.Reason: Pt electing to not take the medication, Reported on 07/09/2025 SUMAtriptan (IMITREX) 100 mg Oral Tablet TAKE [...] ve ONETOUCH DELICA PLUS LANCET 33 gauge Misc MiscIndications:Dy slipidemia associated with type 2 diabetes mellitus ([facility]) 1 Each by [facility]Non-Drug; Combo Route) route 4 times daily. 150 Each 02/16/20 Active Insulin [place], Disposable, (SAMMIE PEN NEEDLE) 32 gauge x [facility] NeedleIndications: Dyslipidemia associated with type 2 diabetes mellitus ([facility]) Use as directed to inject insulins 4 times daily 120 Each 05/09/20 Active ONETOUCH VERIO TEST STRIPS [facility] StripIndications:D yslipidemia associated with type 2 diabetes mellitus ([facility]) USE ONE STRIP TO TEST FOUR TIMES [...] morning on an empty stomach. 30 Tablet 03/07/20 23 Active Additional Information Patient not taking.Reason: Pt electing to not take the medication, Reported on 07/09/2025 dulaglutide (TRULICITY) 3 mg/0.5 mL SubQ Pen InjectorIndication s:Type 2 diabetes mellitus with hyperglycemia, with long-term current use of insulin ([facility]) Subcutaneous (Inject under the skin) 0.5 mL once a week. 2 mL 5 09/05/20 23 Active ARNUITY ELLIPTA 100 [...] lipidemia associated with type 2 diabetes mellitus ([facility]) INJECT 60 UNITS UNDER THE SKIN EVERY [...] Oral Tablet Take by mouth daily. Active evolocumab (REPATHA SURECLICK) 140 mg/mL SubQ [...] 24 Active Blood-Glucose Sensor (DEXCOM G7 SENSOR) [facility] DeviceIndications: Dyslipidemia associated with type 2 diabetes mellitus (HCC) 1 Each by [facility]Non-Drug; Combo Route) route every 10 days. 08/26/20 24 Active ergocalciferol (DRISDOL) 1,250 mcg (50,000 unit) Oral CapsuleIndications :Vitamin D deficiency TAKE 1 CAPSULE BY MOUTH TWICE WEEKLY 8 Capsule 11 07/07/20 25 Active KERENDIA 10 mg Oral Tablet Take 1 Tablet by mouth daily. 07/01/20 25 Active metoprolol succinate (TOPROL-XL) 50 mg Oral Tablet Sustained Release 24 hr Take 50 mg by mouth every evening. 06/16/20 25 Active Active Problems Problem Noted Date Diagnosed Date [...] dyslipidemia 10/07/2013 Overview (10/31/2019): Managed by Endocrinology. [place] Score of 4 Has Fhx od premature [...] Me Social History Smoking Status as of 08/20/2025 Tobacco Use Types Packs/Day Years Used Date [...] Pulse 63 07/09/2025 12:05 PM EDT Temperature 37 C (98.6 F) 06/06/2017 12:51 PM EDT Respiratory Rate 16 08/26/2024 10:5 7 AM EST Oxygen Saturation 94% 05/31/2017 8:11 AM EDT Inhaled Oxygen Concentration - - Weight 84.7 kg (186 lb 11.2 oz) 025 12:05 PM EDT Height 160 cm (5' 3 ) 07/09/2025 12:05 PM EDT Body Mass Index 33.07 07/09/2025 12:05 PM EDT Plan of Treatment Upcoming Encounters Date Type Department Care Team (Late st Contact Info) Description 01/07/2026 3:40 PM EDT Office Visit [facility] [address] [facility] [address] [place] [address] Rojas [place] MD [address] [facility] [address] [place] [address] Procedures Procedure Name Priority Date/Time Associated Diagnosis Comments DIABETES EYE EXAM Routine 02/17/2025 11:45 AM EDT THYROGLOBULIN ANTIBODY -REF LAB Routine 05/06/2024 THYROGLOBULIN -REF LAB Routine 05/06/2024 HEMOGLOBIN A1C Routine 05/06/2024 C-REACTIVE PROTEIN Routine 05/06/2024 COMPREHENSIVE METABOLIC PANEL Routine 05/06/2024 LIPID PANEL REFLEX Routine 05/06/2024 VITAMIN D 25 HYDROXY Routine 05/06/2024 THYROID STIMULATING HORMONE Routine 05/06/2024 VITAMIN B12 LEVEL Routine 05/06/2024 ALBUMIN/CREATININE RATIO, RANDOM URINE Routine 05/06/2024 SCANNED LABS 01/16/2024 6:33 PM EDT C-REACTIVE PROTEIN Routine 12/31/2023 LIPID SCREEN Routine 12/31/2023 VITAMIN B12 LEVEL Routine 12/31/2023 HEMOGLOBIN A1C Routine 12/31/2023 T4, FREE (THYROXINE) Routine 12/31/2023 VITAMIN D 25 HYDROXY Routine 12/31/2023 ALBUMIN/CREATININE RATIO, RANDOM URINE Routine 12/31/2023 SCANNED LABS 10/04/2023 5:04 [...] (HCC) SCANNED LABS 07/28/2020 10:35 AM EDT ALBUMIN/CREATININE RATIO, RANDOM URINE Routine 07/06/2020 Dyslipidemia associated with type [...] T4, FREE (THYROXINE) Routine 03/09/2020 Post-surgical hypothyroidism ALBUMIN/CREATININE RATIO, RANDOM URINE Routine 03/09/2020 Dyslipidemia associated with type 2 diabetes mellitus (HCC) SCANNED LABS 11/12/2019 2:40 PM EST ALBUMIN/CREATININE RATIO, RANDOM URINE Routine 10/03/2019 Dyslipidemia associated with type [...] dyslipidemia SCANNED LABS 12/03/2018 11:25 AM EST ALBUMIN/CREATININE RATIO, RANDOM URINE Routine 11/13/2018 9:56 AM EST VITAMIN [...] complication, with long-term current use of insulin ([facility]) Vitamin D deficiency Mixed [...] (HCC) Vitamin D deficiency Mixed dyslipidemia VITAMIN B12 [...] complication, with long-term current use of insulin ([facility]) Vitamin D deficiency Mixed dyslipidemia T4, FREE (THYROXINE) Routine 06/12/2018 Uncontrolled type 2 diabetes mellitus with complication, with long-term current use of insulin ([facility]) Vitamin D deficiency Mixed dyslipidemia ZINC LEVEL-REF [...] unspecified intestinal tract location Pre-operative laboratory examination ALBUMIN/CREATININE RATIO, RANDOM URINE Routine 02/22/2017 10:23 AM EDT HEMOGLOBIN [...] 02/02/2015 SCANNED LABS 11/19/2014 3:13 PM EST ALBUMIN/CREATININE RATIO, RANDOM URINE Routine 10/13/2014 10:53 AM EST CBC [...] 2, uncontrolled (HCC) Thyroid nodule Hypovitaminosis D ALBUMIN/CREATININE RATIO, RANDOM URINE Routine 08/14/2013 1:00 PM EST Diabetes [...] CA, DM. Father with CVA,dementia, ASHD s/p [place], HTN and HLD CARD.SURG: none CARD. RISK FACTORS: HTN, DM, ASHD and HLD LHC with FFR on 01/03/13 Following completion of the diagnostic procedure, fractional flow reserveassessment of the mid left anterior descending artery was performed. 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 Chest [...] F (36.8 C) TempSrc: Oral Oral Resp: 18 Height: Weight: SpO2: 94% 97% Lab [...] TUNNEL RELEASE performed by EDYTA CHUN at [facility] Family History Problem Relation Age of Onset [...] 200 Syringe 11 Lancets (ONE TOUCH DELICA) Misc Please dispense 1 box of lancets every30 [...] injection 4 mg 4 mg Intravenous Q6H PRNGaniBoris chin MD hydrALAZINE (APRESOLINE) injection 5-10 mg 5-10 mg Intravenous Q3H PRNGaniBoris chin MD senna-docusate (SENOKOT-S) 8.6-50 mg per tablet 1 Tab 1 Tab OralNightly PRN Arehart, Abril, ACQUISITION MARKETING COORDINATOR acetaminophen (TYLENOL) tablet 650 mg 650 mg Oral Q4H PRN Arehart,Abril, ACQUISITION MARKETING COORDINATOR Or acetaminophen (TYLENOL) suppository 650 mg 650 mg Rectal Q4H PRNArehart, Abril, ACQUISITION MARKETING COORDINATOR Sodium Chloride 0.9 % Syrg 5 mL 5 mL Intravenous Q8H GUILLERMO Arehart, Abril,ACQUISITION MARKETING COORDINATOR 5 mL at 06/24/13 0515 And Sodium Chloride 0.9 % Syrg 5 mL 5 mL Intravenous PRN Arehart, Abril,ACQUISITION MARKETING COORDINATOR dextrose solution 25 mL 25 mL Intravenous PRN Arehart, Abril, ACQUISITION MARKETING COORDINATOR glucagon (human recombinant) (GLUCAGEN) injection 1 mg 1 mgIntramuscular PRN Arehart, Abril, ACQUISITION MARKETING COORDINATOR insulin aspart (NovoLOG) injection 1-10 Units 1-10 Units SubcutaneousQID WM Arehart, Abril, ACQUISITION MARKETING COORDINATOR 4 Units at 06/24/13 0945 albuterol (PROVENTIL HFA; VENTOLIN HFA) INHALER 2 Puff 2 PuffInhalation Q6H PRN Arehart, Abril, ACQUISITION MARKETING COORDINATOR aspirin tablet 325 mg 325 mg Oral Daily Arehart, Abril, ACQUISITION MARKETING COORDINATOR 325 mg at06/24/13 0945 atorvastatin (LIPITOR) tablet 10 mg 10 mg Oral Nightly Arehart, Abril,ACQUISITION MARKETING COORDINATOR 10 mg at 06/23/13 2245 DULoxetine (CYMBALTA) capsule 60 mg 60 mg Oral BID Arehart, Abril, APRN60 mg at 06/24/13 0945 pantoprazole (PROTONIX) tablet 40 mg 40 mg Oral BID Arehart, Abril, APRN40 mg at 06/24/13 0945 nitroGLYCERIN (NITROSTAT) SL tablet 0.4 mg 0.4 mg Sublingual Q5 Min PRNArehart, Abril, ACQUISITION MARKETING COORDINATOR topiramate (TOPAMAX) tablet 200 mg 200 mg Oral Nightly Arehart, Abril,ACQUISITION MARKETING COORDINATOR topiramate (TOPAMAX) tablet 150 mg 150 mg Oral Daily Arehart, Abril,ACQUISITION MARKETING COORDINATOR 150 mg at 06/24/13 0945 Allergies Allergen [...] note is in progress. Consult dictated # [id number] Symptoms likely related to migraine. MRI shows no acute CVA. No significant vascular disease on MRA. CUS summer was (-). Would continue ASA, management of vascular risk factors. OK for dischargewhen otherwise medically stable. Thank you. IP CONSULT TO NEUROLOGY Routine 01/03/2013 6:49 PM EDT Procedure Note - Boris Prince MD - 01/04/2013 4:31 PM EDTThis note is in progress. Consult dictated # [id number] Symptoms likely related to migraine. MRI shows no acute CVA. No significant vascular disease on MRA. CUS fromlast summer was (-). Would continue ASA, management of vascular risk factors. OK for dischargewhen otherwise medically stable. Thank you. POCT ACTIVATED CLOTTING TIME Routine 01/03/2013 9:47 AM EDT RESIN FILTERER PROCEDURE LOG Routine 01/03/2013 9:22 AM EDT CARDIAC PROCEDURE-RESIN FILTERER ONLY 01/03/2013 8:53 AM EDT chest pain [...] 2:58 PM EDTThis note is in progress. [facility] [place] [facility] Cardiology Consultation ADMISSION: 01/02/2013 PATIENT: Angeles Pope [id number] PCP: No primary provider on file. I [...] 200 Syringe 11 Lancets (ONE TOUCH DELICA) [facility] [place] 1 box of lancets every30 [...] TUNNEL RELEASE performed by EDYTA CHUN at [facility] [place] Allergy Allergies Allergen Reactions Tawnya Inhibitors Shortness [...] Alcohol Use: No Review of Systems Per [facility] nursing notes ,remainder of ROS was reviewed [...] most recent cardiovascular imaging studies availabe in [facility] EMR werereviewed at time of consultation [...] Routine 01/04/2012 11:29 AM EDT VITAMIN D, 62-[id number] Routine 01/04/2012 11:29 AM EDT Diabetes mellitus [...] 12 LEAD STAT 11/09/2011 10:53 PM EST NON-3D ANIMATOR CYTOLOGY REPORT Routine 08/25/2011 2:39 PM EST US GUIDED THYROID BIOPSY Routine 08/25/2011 2:03 PM EST Thyroid mass POCT GLUCOSE Routine 08/18/2011 8:53 AM EST Diabetes mellitus type 2, uncontrolled (HCC) Hyperlipidemia Hypertension Obesity Hot flashes US THYROID Routine 08/16/2011 2:14 PM EST Thyroid mass CARPAL TUNNEL RELEASE 07/06/2011 8:44 AM EDT RIGHT CARPAL TUNNEL SYNDROME Special Needs PCP;[facility] RESENDIZ/Sue case moved fr 06/29 SCANNED OR REPORT 07/06/2011 12:00 AM EDT ALBUMIN/CREATININE RATIO, RANDOM URINE Routine 06/14/2011 12:44 PM EDT Hyperlipidemia [...] EDT Same as pre-op Special Needs ROSENDA CPT:63703 CYSTOSCOPY BLADDER /URETHRA BIOPSY 12/27/2010 2:16 PM EDT Same as pre-op Special Needs ROSENDA CPT:93503 US ABDOMEN LIMITED Routine 11/29/2010 10:26 AM [...] Present Not Present Present/Not Present SEP OFFICE us Historical Provider HEALTH MAINTENANCE Edited Re sult [...] Comment:100-129 Blood VENOUS BLOOD / Unknown 05/06/2024 us Historical Provider CHEMISTRY ORDERABLES Final R esult SEP OFFICE * VITAMIN D 25 HYDROXY (05/06/2024) Only the most recent of35 resultswithin the time period is included. 25-HYDROXY, VITAMIN D - HISTORICAL 90.0 SEP OFFICE Comment:30-100 Blood VENOUS BLOOD / Unknown 05/06/2024 Historical Provider CHEMISTRY ORDERABLES Final R esult Performing Organization Address City/[facility] Co de Phone Number SEP OFFICE * MICROALBUMIN/CREATININE RATIO URINE (05/06/2024) Only the most recent of10 resultswithin the time period is included. Albumin, Ur <6.000 <=31 MG/L SEP OFFICE Comment:0-16.7 Urine URINE SPECIMEN COLLECTION / Unknown 05/06/2024 Historical Provider URINE ORDERABLES Final Resul t Performing Organization Address City/[facility] de Phone Number SEP OFFICE * THYROGLOBULIN -REF LAB (05/06/2024) Only the most recent of3 resultswithin the time period is included. Thyroglobulin <0.1 NG/ML SEP OFFICE Comment:1.5-38.5 Blood VENOUS BLOOD / Unknown 05/06/2024 Historical Provider CHEMISTRY ORDERABLES Edited Result - Final Performing Organization Address [facility] de Phone Number SEP OFFICE * THYROGLOBULIN ANTIBODY -REF LAB (05/06/2024) Only the most recent of3 resultswithin the time period is included. Thyroglobulin <1.0 NG/ML SEP OFFICE Comment:0.0-0.90 Blood VENOUS BLOOD / Unknown 05/06/2024 Historical Provider IMMUNOLOGY ORDERABLES Final Result Performing Organization Address City/[facility] Co de Phone Number SEP OFFICE * C-REACTIVE PROTEIN (05/06/2024) Only the most recent of33 resultswithin the time period is included. CRP 10 MG/L SEP OFFICE Comment:0-4 Blood VENOUS BLOOD / Unknown 05/06/2024 Historical Provider CHEMISTRY ORDERABLES Final R esult Performing Organization Address City/State/[facility] de Phone Number SEP OFFICE * (ABNORMAL) THYROID STIMULATING HORMONE (05/06/2024) Only the most recent of39 resultswithin the time period is included. Pathologist [facility] TSH 17.500(A) 0.400 - 4.500 MCIU/ML SEP OFFICE Comment:0.465-4.68 Blood VENOUS BLOOD / Unknown 05/06/2024 Historical Provider CHEMISTRY ORDERABLES Final R [facility] Performing Organization Address [facility] Phone Number SEP OFFICE * HEMOGLOBIN A1C (05/06/2024) Only the most recent of41 resultswithin the time period is included. Pathologist [facility] A1c 6.9 SEP OFFICE Comment:4.0-6.0 Blood VENOUS BLOOD / Unknown 05/06/2024 [facility] Provider CHEMISTRY ORDERABLES Final R [facility] Performing Organization Address [facility] Phone Number SEP OFFICE * VITAMIN B12 LEVEL (05/06/2024) Only the most recent of27 resultswithin the time period is included. Pathologist [facility] Vitamin B12 500 PG/ML SEP OFFICE Comment:[phone] Blood VENOUS BLOOD / Unknown 05/06/2024 [facility] Provider CHEMISTRY ORDERABLES Final R [facility] Performing Organization Address [facility] Phone Number SEP OFFICE * (ABNORMAL) COMPREHENSIVE METABOLIC PANEL (05/06/2024) Only the most recent of43 resultswithin the time period is included. Pathologist [facility] Sodium 140 137 - 147 MMOL/L SEP [...] ORDERABLES Final Resu lt Performing Organization Address [facility] de Phone Number SEP OFFICE * LIPID SCREEN (12/31/2023) Only [...] ORDERABLES Final Resu lt Performing Organization Address [facility] Phone Number SEP OFFICE * T3 FREE (09/18/2023) Only the most recent of7 resultswithin the time period is included. Free T4 1.05 NG/DL SEP OFFICE Comment:Reference Range: 0.7 8-2.19 ng/dL Blood VENOUS BLOOD / Unknown 09/18/2023 Rojas Cunningham MD CHEMISTRY ORDERABLES Final Resu lt Performing Organization Address [facility] de Phone Number SEP OFFICE * URIC ACID (03/20/2023 12:40 PM EDT) Only the most recent of3 resultswithin the time period is included. Uric Acid 5.0 2.4 - 5.7 mg/dL 03/20/2023 5:51 PM EDT [facility] [employer], [facility] Blood VENOUS BLOOD / Unknown Venipuncture / Unknown 03/20/2023 12:40 PM EDT 03/20/2023 12:40 PM EDT Rojas Cunningham MD CHEMISTRY ORDERABLES Final Resu lt [facility] [email or web address], [address] , [address] [place], [place] [id number] * TRIIODOTHYRONINE (02/06/2023) Only the most recent of2 resultswithin the time period is included. T3 Free 3.1 PG/ML SEP OFFICE Comment:[facility] -2 .0-4.4 Blood VENOUS BLOOD / Unknown 02/06/2023 Historical Provider CHEMISTRY ORDERABLES Final R esult Performing Organization Address [facility] de Phone Number SEP OFFICE * FRUCTOSAMINE (08/07/2022) Only the most recent of10 resultswithin the time period is included. Fructosamine 273 MCMOL/L SEP OFFICE Comment:Reference Range: 0-2 85 umol/L Blood VENOUS BLOOD / Unknown 08/07/2022 Rojas Cunningham MD CHEMISTRY ORDERABLES Final Resu lt Performing Organization Address [facility] Co de Phone Number SEP OFFICE * VITAMIN C (ASCORBIC ACID) - REF LAB (05/04/2022) Vitamin C 0.1 SEP OFFICE Comment:Reference Range: 0.4 -2.0 mg/dL Blood VENOUS BLOOD / Unknown 05/04/2022 Yecenia Ruiz MD CHEMISTRY ORDERABLES Final Re sult Performing Organization Address [facility]/ZIP Co de Phone Number SEP OFFICE * C-PEPTIDE (05/31/2021) Only the most recent of4 resultswithin the time period is included. C-Peptide 1.5 NG/ML SEP OFFICE Comment:1.1-4.4 [facility] Blood 05/31/2021 Rojas Cunningham MD CHEMISTRY ORDERABLES Edited Res ult - Final Performing Organization Address [facility] de Phone Number SEP OFFICE * THYROGLOBULIN AND TG AB REFLEX MONITOR-REF LAB (01/25/2021) Only the most recent of9 resultswithin the time period is included. Thyroglob Ab <1.0 IU/ML SEP OFFICE Comment:[place] 0.0-0.9 Blood 01/25/2021 Rojas Cunningham MD CHEMISTRY ORDERABLES Final Resu lt Performing Organization Address [facility] de Phone Number SEP OFFICE * APOLIPOPROTEIN B-REF LAB (07/06/2020) Only the most recent of6 resultswithin the time period is included. Apolipoprotein B 89 SEP OFFICE Comment:<90 Blood 07/06/2020 Rojas Cunningham MD CHEMISTRY ORDERABLES Final Resu lt Performing Organization Address [facility] de Phone Number SEP OFFICE * (ABNORMAL) EMG (04/12/2020 11:13 AM EDT) Impressions [facility] - 04/12/2020 11:13 AM EDT Abnormal electrodiagnostic study There is EMG evidence of a mild right and moderate left median neuropathy at the wrist, carpal tunnel syndrome. No evidence for cervical radiculopathy Wiley Willard MD -Board Certified Physical Medicine and Rehabilitation Narrative [facility] - 04/12/2020 11:13 AM EDT Nerve [...] ORDERABLES Final Res ult Performing Organization Address City/[facility]/ZIP Co de Phone Number [facility] [address] [place] [address] * FRUCTOSAMINE -REF LAB (02/26/2019) Only the most recent of10 resultswithin the time period is included. Fructosamine 257 MCMOL/L SEP OFFICE Comment:Evita Crouch 0-285 Blood 02/26/2019 Rojas Cunningham MD CHEMISTRY ORDERABLES Final Resu lt Performing Organization Address [facility] Co de Phone Number SEP OFFICE * LIPOPROTEIN (A)-REF LAB (01/20/2019) Only the most recent of3 resultswithin the time period is included. Lipoprotein (A) 17 MG/DL SEP OFFICE Comment:<75 -[facility] Blood VENOUS BLOOD / Unknown 01/20/2019 Tiffany Mayen ACQUISITION MARKETING COORDINATOR CHEMISTRY ORDERABLES Fin al Result Performing Organization Address [facility] Co de Phone Number SEP OFFICE * FERRITIN (01/08/2019) Only the most recent of7 resultswithin the time period is included. Ferritin 45.1 9.0 - 150.0 NG/ML SEP OFFICE Comment:[facility] 1 1.1-264.0 Blood VENOUS BLOOD / Unknown 01/08/2019 Rojas Cunningham MD CHEMISTRY ORDERABLES Final Resu lt Performing Organization Address [facility] Co de Phone Number SEP OFFICE * VITAMIN E - REF LAB (07/05/2018 12:00 PM EDT) Pathologist [facility] Alpha-Tocopherol (Vit E) mg/L 10.3 5.5 - 18.0 mg/L 07/09/2018 7:48 AM EDT [employer] Comment: Test developed and characteristics determined by [facility]. See Compliance Statement B: [employer]/ Gamma-Tocopherol (Vit E) mg/L 2.4 0.0 - 6.0 mg/L 07/09/2018 7:48 AM EDT [employer] Comment: Performed by [facility], [address] [place] [address] www.[employer], Andrés Gramajo MD, Lab. Director Blood Venipuncture / Unknown 07/05/2018 12:00 PM EDT 07/05/2018 12:00 PM EDT Lauren Fraser ACQUISITION MARKETING COORDINATOR CHEMISTRY ORDERABLES Final Result Performing Organization Address City/[facility]/ZIP Co de Phone Number [employer], [employer] [address] [place] [address] * IRON/UIBC (07/05/2018 12:00 PM EDT) Only the most recent of4 resultswithin the time period is included. [facility] Iron 96 30 - 160 mcg/dL 07/05/2018 2:05 PM EDT PREFERRED LAB [email or web address], [employer] UIBC 185 112 - 347 mcg/dL 07/05/2018 2:05 PM EDT PREFERRED [employer], [employer] Sat 34 20 - 50 % 8 2:05 PM EDT PREFERRED [employer], [facility] Blood Venipuncture / Unknown 07/05/2018 12:00 PM EDT 07/05/2018 12:00 PM EDT Lauren Fraser ACQUISITION MARKETING COORDINATOR CHEMISTRY ORDERABLES Final Result [employer], [employer] [address] , [place] [address] * COPPER LEVEL -REF LAB (07/05/2018 12:00 PM EDT) [facility] Copper 116 80 - 155 ug/dL 07/09/2018 7:30 AM EDT [employer] Comment: INTERPRETIVE INFORMATION: Copper, Serum or Plasma [...] or malabsorption. See Compliance Statement B at [email or web address] Performed by [facility], [address] [place] [address] www.[employer], Andrés Gramajo MD, Lab. Director Blood Venipuncture / Unknown 07/05/2018 12:00 PM EDT 07/05/2018 12:00 PM EDT Lauren Fraser ACQUISITION MARKETING COORDINATOR CHEMISTRY ORDERABLES Final Result [employer] [address] [place] [address] * VITAMIN B1 (THIAMINE) WHOLE BLOOD -REF LAB (07/05/2018 12:00 PM EDT) Only the most recent of4 resultswithin the time period is included. [facility] Vit B1 WB 133 70 - 180 nmol/L 07/10/2018 9:00 AM EDT [employer] Comment: INTERPRETIVE INFORMATION: Vitamin B1, Whole Blood This assay measures the concentration of thiamine diphosphate (TDP), the primary active form of vitamin B1. Approximately 90 percent of vitamin B1 present in whole blood is TDP. Thiamine and thiamine monophosphate, which comprise the remaining 10 percent, are not measured. Test developed and characteristics determined by [facility]. See Compliance Statement B: [employer]/CS Performed by [facility], [address] [place] [address] www.[employer], Andrés Gramajo MD, Lab. Director Blood Venipuncture / Unknown 07/05/2018 12:00 PM EDT 07/05/2018 12:00 PM EDT Lauren Fraser ACQUISITION MARKETING COORDINATOR CHEMISTRY ORDERABLES Final Result Performing Organization Address [facility] de Phone Number [employer] [address] [place], [place] [id number] * ZINC LEVEL-REF LAB (07/05/2018 12:00 PM EDT) Only the most recent of4 resultswithin the time period is included. Zinc 68 60 - 120 ug/dL 07/09/2018 7:30 AM EDT [employer] [employer] Comment: INTERPRETIVE INFORMATION: Zinc, Serum or Plasma Circulating zinc concentrations are dependent on albumin status and are depressed with malnutrition. Zinc may also be lowered with infection, inflammation, stress, oral contraceptives, and . Zinc may be elevated with zinc supplementation or fasting. Elevated zinc concentrations may interfere with copper absorption. Test developed and characteristics determined by [facility]. See Compliance Statement B: [employer] Performed by [facility], [address] [place] [id number] www.[employer], Andrés Gramajo MD, Lab. Director Blood Venipuncture / Unknown 07/05/2018 12:00 PM EDT 07/05/2018 12:00 PM EDT Lauren Fraser ACQUISITION MARKETING COORDINATOR CHEMISTRY ORDERABLES Final Result Performing Organization Address [facility] de Phone Number [employer] [address] [place], [place] [id number] * VITAMIN A (RETINOL) -REF LAB (07/05/2018 12:00 PM EDT) Only the most recent of3 resultswithin the time period is included. Vit A(Retinol) 0.37 0.30 - 1.20 mg/L 07/09/2018 7:48 AM EDT [employer] Retinyl Palm 0.02 0.00 - 0.10 mg/L 07/09/2018 7:48 AM EDT [employer] Vit A Intrp Normal 07/09/2018 7:48 AM EDT [employer] Comment: Test developed and characteristics determined by [facility]. See Compliance Statement B: [employer]/CS Performed by [facility], [address] [place] [address] www.[employer], Andrés Gramajo MD, Lab. Director Blood Venipuncture / Unknown 07/05/2018 12:00 PM EDT 07/05/2018 12:00 PM EDT Lauren Fraser APRN CHEMISTRY ORDERABLES Final Result Performing Organization Address City/[facility] Co de Phone Number [employer] [address] [place] [address] * (ABNORMAL) FOLATE LEVEL (07/05/2018 12:00 PM EDT) Only the most recent of3 resultswithin the time period is included. Folate >16.00(H) 4.50 - 16.00 ng/mL 07/05/2018 2:20 PM EDT [facility] Blood Venipuncture / Unknown 07/05/2018 12:00 PM EDT 07/05/2018 12:00 PM EDT Narrative [facility]REFERRED [facility] - 07/05/2018 2:20 PM EDT Ingestion of abdirashid doses of biotin (>5 mg/day) taken within 8 hours of drawing blood sample can interfere with this immunoassay test. Lauren Fraser APRN CHEMISTRY ORDERABLES Final Result Performing Organization Address City/[facility]/ZIP Co de Phone Number [employer] [address] , [place] [address] * MISCELLANEOUS LAB (06/12/2018) Only the most recent of2 resultswithin the time period is included. Thyroglobulin <0.1 NG/ML SEP OFFICE Comment:1.5-38.5 -[facility] Thyroglob Ab <0.1 IU/ML SEP OFFICE Comment:0.0-0.9 Blood VENOUS BLOOD / Unknown 06/12/2018 Rojas Cunningham MD HEMATOLOGY ORDERABLES Final Res ult Performing Organization Address City/[facility] Co de Phone Number SEP OFFICE * FOLATE, RBC -REF LAB (01/02/2018 8:52 AM EDT) Only the most recent of2 resultswithin the time period is included. HCT (from client) 40.5 % 01/03/2018 11:26 PM EDT [employer] Folate RBC 587 >=366 ng/mL 01/03/2018 11:26 PM EDT [employer] Comment: Performed by [facility], [address] [place] [address] www.[employer], Andrés Gramajo MD, Lab. Director Blood Venipuncture / Unknown 01/02/2018 8:52 AM EDT 01/02/2018 8:52 AM EDT Gila Winter APRN CHEMISTRY ORDERABLES Final Res ult Performing Organization Address [facility] Co de Phone Number [employer] [address] [place] [address] * IONIZED CALCIUM - INPATIENT (10/24/2017 11:44 AM EST) Only the most recent of6 resultswithin the time period is included. Calcium Ionized 1.17 1.12 - 1.32 mmol/L 10/24/2017 12:10 PM EST [facility] Blood Venipuncture / Unknown 10/24/2017 11:44 AM EST 10/24/2017 11:44 AM EST Rojas Cunningham MD CHEMISTRY ORDERABLES Final Resu lt Performing Organization Address City/[facility] Co de Phone Number [facility] [address] [place] [address] * BILL TG CL (10/24/2017 11:44 AM EST) [id number] P Billed 10/26/2017 2:22 AM EST [employer] Comment: Performed by [facility], [address] [place] [address] www.[employer], Andrés Gramajo MD, Lab. Director Blood Venipuncture / Unknown 10/24/2017 11:44 AM EST 10/24/2017 11:44 AM EST Rojas Cunningham MD IMMUNOLOGY ORDERABLES Final Res ult Performing Organization Address [facility] Co de Phone Number [employer] [address] [place] [address] * PARATHYROID HORMONE INTACT (10/24/2017 11:44 AM EST) Only the most recent of8 resultswithin the time period is included. PTH Intact 32.09 15.00 - 65.00 pg/mL 10/24/2017 3:58 PM EST [facility] Blood Venipuncture / Unknown 10/24/2017 11:44 AM EST 10/24/2017 11:44 AM EST Narrative [facility] - 10/24/2017 3:58 PM EST Intact [...] ORDERABLES Final Resu lt Performing Organization Address [facility]/ZIP Co de Phone Number [facility] [address] [place] [address] * APOLIPOPROTEIN, A-1-REF LAB (09/04/2017) Apolipoprotein A-1 138 SEP OFFICE Comment:116-209 Apolipoprotein B 94 SEP OFFICE Comment:54-133 Apolipo. B/A-1 Ratio 0.7 SEP OFFICE Comment:0.0-0.6 Blood VENOUS BLOOD / Unknown 09/04/2017 Rojas Cunningham MD CHEMISTRY ORDERABLES Final Resu lt Performing Organization Address City/[facility] de Phone Number SEP OFFICE * CALCIUM, IONIZED, SERUM-REF LAB (09/04/2017) Calcium Ionized 5.0 MMOL/L SEP OFFICE Comment:4.5-5.6 [place] Blood VENOUS BLOOD / Unknown 09/04/2017 Rojas Cunningham MD CHEMISTRY ORDERABLES Final Resu lt Performing Organization Address [facility] [facility] de Phone Number SEP OFFICE * [...] Vitamin B12 994(H) 211 - 946 pg/mL [facility] Folic Acid Lvl 12.57 4.50 - 37.30 ng/mL [facility] Blood specimen (specimen) UPPER LIMB STRUCTURE / Unknown 06/14/2017 1:45 PM EDT 06/14/2017 6:33 PM EDT Lauren Fraser APRN CHEMISTRY ORDERABLES Edite d Result - Final [facility] [address] [place] [address] * MAGNESIUM LEVEL (06/14/2017 1:45 PM EDT) Only the most recent of3 resultswithin the time period is included. Magnesium 2.1 1.6 - 2.4 mg/dL [facility] Blood specimen (specimen) UPPER LIMB STRUCTURE / Unknown 06/14/2017 1:45 PM EDT 06/14/2017 10:15 PM EDT us Lauren Fraser ACQUISITION MARKETING COORDINATOR CHEMISTRY ORDERABLES Final Result Performing Organization Address [facility] Co de Phone Number [address] [address] * (ABNORMAL) CBC (06/06/2017 2:04 PM EDT) Only the most recent of4 resultswithin the time period is included. WBC 9.0 4.0 - 11.0 x10(3)/mcL [facility] RBC 4.79 3.80 - 5.10 x10(6)/mcL [facility] Hgb 12.5 12.0 - 15.6 gm/dL [facility] Hct 38.6 35.7 - 45.9 % [facility] MCV 80.6(L) 82.5 - 99.8 fL [facility] MCH 26.1(L) 27.0 - 34.3 pg [facility] MCHC 32.4 32.1 - 35.3 gm/dL [facility] RDW 14.8 11.5 - 15.0 % [facility] Platelet 210 144 - 423 x10(3)/mcL [facility] MPV 9.3 6.8 - 10.8 fL [facility] Blood specimen (specimen) 06/06/2017 2:04 PM EDT 06/06/2017 2:04 PM EDT us Gila Winter ACQUISITION MARKETING COORDINATOR HEMATOLOGY ORDERABLES Final Re sult Performing Organization Address City/[facility] Co de Phone Number [facility] [address] [place], [place] [id number] * SCANNED RHYTHM STRIPS (06/02/2017 8:20 AM EDT) Only the most recent of14 resultswithin the time period is included. Anatomical Region Laterality Modality Other 06/02/2017 8:20 AM EDT us Unknown Unknown IMG ECG ORDERABLES Final Result * (ABNORMAL) GLUCOSE METER POC (05/31/2017 12:51 PM EDT) Only the most recent of6 resultswithin the time period is included. Glucose Meter POC 205(H) 70 - 100 mg/dL [facility] Sample Type Capillary [facility] Patient Status Non-Critical Patient [facility] Blood specimen (specimen) 05/31/2017 12:51 PM EDT 05/31/2017 12:51 PM EDT us Duncan Choi MD POINT OF CARE TEST ORDERABLE S Final Result Performing Organization Address City/[facility]/ZIP Co de Phone Number [facility] [address] [place] [address] * DIFFERENTIAL (05/31/2017 5:44 AM EDT) Only the most recent of10 resultswithin the time period is included. Neut Percent 73.6 % [facility] Lymph Percent 18.3 % [facility] [place] Percent 7.0 % [facility] Eos Percent 0.5 % [facility] Baso Percent 0.6 % [facility] Neut# 6.9 1.8 - 7.7 x10(3)/mcL [facility] Lymph# 1.7 0.6 - 4.8 x10(3)/mcL [facility] [place]# 0.7 0.0 - 1.3 x10(3)/mcL [facility] Eos# 0.0 0.0 - 0.5 x10(3)/mcL [facility] Baso# 0.1 0.0 - 0.2 x10(3)/mcL [facility] Blood specimen (specimen) 05/31/2017 5:44 AM EDT 05/31/2017 6:02 AM EDT us Duncan Choi MD HEMATOLOGY ORDERABLES Final Result Performing Organization Address City/[facility]/ZIP Co de Phone Number [facility] [address] [place] [address] * (ABNORMAL) CBC WITH AUTO DIFF (05/31/2017 5:44 AM EDT) Only the most recent of10 resultswithin the time period is included. Pathologist [facility] WBC 9.4 4.0 - 11.0 x10(3)/mcL [facility] RBC 4.64 3.80 - 5.10 x10(6)/mcL [facility] Hgb 12.3 12.0 - 15.6 gm/dL [facility] Hct 37.0 35.7 - 45.9 % [facility] MCV 79.8(L) 82.5 - 99.8 fL [facility] MCH 26.4(L) 27.0 - 34.3 pg [facility] MCHC 33.1 32.1 - 35.3 gm/dL [facility] RDW 15.0 11.5 - 15.0 % [facility] Platelet 179 144 - 423 x10(3)/mcL [facility] MPV 8.9 6.8 - 10.8 fL [facility] Blood specimen (specimen) 05/31/2017 5:44 AM EDT 05/31/2017 6:02 AM EDT Duncan Choi MD HEMATOLOGY ORDERABLES Final Result Performing Organization Address City/State/[facility] Co de Phone Number [facility] [address] [place], [place] [id number] * PARTIAL THROMBOPLASTIN TIME (05/30/2017 7:38 PM EDT) Only the most recent of2 resultswithin the time period is included. Pathologist [facility] PTT 30.9 26.0 - 36.4 second(s) [facility] Comment: Therapeutic range for unfractionated [...] HEMATOLOGY ORDERABLES Final Result Performing Organization Address [facility] Co de Phone Number [facility] [address] [place] [address] * PT / INR (05/30/2017 7:38 PM EDT) Only the most recent of3 resultswithin the time period is included. PT 12.7 10.1 - 12.9 second(s) [facility] INR 1.09 0.88 - 1.12 [facility] Comment: Level of Therapy Indications Target INR Range Standard Dose Treatment and prophylaxis of venous 2.0 - 3.0 thrombosis, pulmonary embolism High Dose High risk patients with mechanical 2.5 - 3.5 heart valves Blood specimen (specimen) UPPER LIMB STRUCTURE / Unknown 05/30/2017 7:38 PM EDT 05/30/2017 7:43 PM EDT Duncan Choi MD HEMATOLOGY ORDERABLES Final Result Performing Organization Address [facility] Co de Phone Number [facility] [address] [place] [address] * PATHOLOGY TISSUE REPORT (05/30/2017 10:23 AM EDT) Only the most recent of2 resultswithin the time period is included. Surgical Pathology Report PATIENT NAME:ANGELES KIMBROUGH Surgical Pathology Report Accession Number Collected Date/Time Received Date/Time [id number] 05/30/17 10:23 EDT 05/30/17 20:33 EDT Diagnosis Greater curvature of stomach, partial resection: - Fundic mucosa, submucosa and muscularis propria showing no evidence of malignancy. - Mild associated chronic inflammation. Mariela Chew (Electronically signed by) Verified: 06/01/2017 [facility] Clinical Information Morbid obesity [...] masses, or areas of ulceration grossly identified. Card Placer sections are submitted in one cassette. / TE JUAN/LATOYA Microscopic Description Microscopic examination is performed and the findings corroborate the diagnosis. [facility] 05/30/2017 10:2 3 AM EDT us Duncan Choi MD PATHOLOGY ORDERABLES Final R esult [facility] [address] [place] [address] * INTRAOP AIRWAY PLACEMENT (05/30/2017 10:11 AM EDT) Narrative [facility] - 05/30/2017 10:11 AM EDT José [...] Atraumatic and Unchanged Insertion attempts: 1 Title: SHAHID Procedure Note José Meyer CRNA - 05/30/2017 [...] Atraumatic and Unchanged Insertion attempts: 1 Title: CORE RESCUER Roxie Massey MD MS ANESTHESIA Final Result Performing Organization Address [facility] de Phone Number [facility] [address] [place] [address] * CROSSMATCH SUMMARY (05/30/2017 8:48 AM EDT) Blood specimen (specimen) 05/30/2017 8:48 AM EDT 05/30/2017 8:48 AM EDT us Duncan Choi MD BLOOD BANK ORDERABLES Final Result Performing Organization Address [facility] de Phone Number [facility] [address] [place] [address] * ABORH (05/23/2017 12:15 PM EDT) ABORh Int O POS [facility] Blood specimen (specimen) 05/23/2017 12:15 PM EDT 05/23/2017 12:21 PM EDT us Karin Ashley ACQUISITION MARKETING COORDINATOR BLOOD BANK ORDERABLES Final R esult Performing Organization Address [facility] de Phone Number [facility] [address] [place] [phone] * ANTIBODY SCREEN IGG (05/23/2017 12:15 PM EDT) ABSC IgG Int Negative [facility] Blood specimen (specimen) 05/23/2017 12:15 PM EDT 05/23/2017 12:21 PM EDT Karin Ashley ACQUISITION MARKETING COORDINATOR BLOOD BANK ORDERABLES Final R esult Performing Organization Address [facility] de Phone Number [facility] [address] [place] [address] * CORTISOL SALIVA-REF LAB (03/29/2017 12:59 AM EDT) [facility] Cortisol Saliva-[facility] 0.029 mcg/dL [facility], [facility] Comment: INTERPRETIVE INFORMATION: Cortisol, Saliva Effective 10/30/2005 For collection at 2300 hr. the normal cortisol concentration is less than 0.112 ug/dL. Patients with Cushings Syndrome have concentrations of 0.112 ug/dL or greater. a.m. ([id number]) p.m. (noon-1800) Males 2.5-7 years 0.034-0.645 ug/dL [...] older 0.149-0.739 ug/dL 0.022-0.254 ug/dL Performed by [facility], [address] [place] [address] [email or web address], Andrés Gramajo MD - Lab. Director Saliva specimen (specimen) 03/29/2017 12:59 AM EDT 03/30/2017 4:10 PM EDT us Gila Winter ANJANA CHEMISTRY ORDERABLES Final Res ult [facility] [address] [place] [address] * HEPATIC FUNCTION PANEL (11/07/2016) Only the [...] R esult - Final Performing Organization Address [facility]/ZIP Co de Phone Number SEP OFFICE * US RETROPERITONEAL LIMITED (10/27/2016 3:07 PM EST) Anatomical Region Laterality Modality Ultrasound Impressions 10/30/2016 1:17 PM EST : 1. No pseudoaneurysm of the right groin. Tanvi Ornelas MD. [address] [facility] [place], [address] Narrative 10/30/2016 1:17 PM EST EXAMINATION: Arterial [...] of the visualized vessels. Eric Be MD [facility] ORDERABLES Final Result * (ABNORMAL) LIPOPROFILE NMR, PARTICLE ANALYSIS ONLY-REF LAB (08/22/2016 1:21 PM EST) LDL Particle Number by NMR 1523(H) <1000 nmol/L [facility] Comment: Low < 1000 Moderate 1000 - 1299 Borderline-High 1300 - 1599 High 1600 - 2000 Very High > 2000 Performed at: [place] [address] LDL Particle Size 20.0 >20.5 nm [facility] Comment: INTERPRETATIVE INFORMATION PARTICLE CONCENTRATION AND [...] have not been fully established. Performed at: [facility], [address] [place] [address] LDL Size 20.0 >=20.8 nm [facility] Comment: Performed at: [place] [address] HDL Particle Number 30.4(L) >=30.5 mcmol/L [facility] Comment: Performed at: [place] [address] HDL Size 8.8(L) >=9.2 nm [facility] Comment: Performed at: [place] [address] Large HDL Particle Number 2.6(L) >=4.8 mcmol/L [facility] Comment: Performed at: [place] [address] Small LDL Particle Number 1027(H) <=527 nmol/L [facility] Comment: Performed at: [place] [address] Small LDL-P 1027(H) <=527 nmol/L [facility] Comment: Performed at: [place] [address] VLDL Size 60.2(H) <=46.6 nm [facility] Comment: Performed at: [place] [address] Large VLDL Particle Number 10.0(H) <=2.7 nmol/L [facility] Comment: Performed at: [place] [address] LP Insulin Resistance Score 83(H) <=45 [facility] [...] [place] Food and Drug Administration. Performed at: [address] [address] Blood specimen (specimen) 08/22/2016 1:21 PM EST 08/22/2016 6:27 PM EST Rojas Cunningham MD CHEMISTRY ORDERABLES Final Resu lt [facility] [address] [place], [place] [id number] * IGF-1 (INSULIN-LIKE GROWTH FACTOR 1) -REF LAB (08/22/2016 1:21 PM EST) Only the most recent of2 resultswithin the time period is included. IGF-1 103 53 - 287 ng/mL [facility] Comment: REFERENCE INTERVAL: IGF-1 (Insulin-Like Growth I) IGF-1 values well above the age and gender matched reference interval indicate a possible pituitary tumor secreting growth hormone. IGF-1 values below the reference interval indicate a possible GH deficiency. Access complete set of age- and/or gender-specific reference intervals for this test in the [employer] [facility] Test Directory ([employer]). Performed by [facility], [address] [place] [address] www.[email or web address], Lion Mooney MD - Lab. Director Blood specimen (specimen) 08/22/2016 1:21 PM EST 08/22/2016 11:16 PM EST Rojas Cunningham MD CHEMISTRY ORDERABLES Final Resu lt Performing Organization Address City/[facility] Co de Phone Number [facility] [address] [place] [address] * PHOSPHORUS LEVEL (08/22/2016 1:21 PM EST) Only the most recent of2 resultswithin the time period is included. Pathologist [facility] Phosphorus 4.0 2.5 - 4.5 mg/dL [facility] Blood specimen (specimen) UPPER LIMB STRUCTURE / Unknown 08/22/2016 1:21 PM EST 08/22/2016 5:53 PM EST Rojas Cunningham MD CHEMISTRY ORDERABLES Final Resu lt Performing Organization Address [facility] [place] [address] * (ABNORMAL) [facility] LIPOPROFILE-REF LAB (06/17/2015) Only the most recent [...] Res ult - Final Performing Organization Address City/[facility] Co de Phone Number SEP OFFICE * C-REACTIVE PROTEIN HIGH SENSITIVITY (06/17/2015) Only the most recent of2 resultswithin the time period is included. CRP 20.2 SEP OFFICE Comment:0.0-9.0, fax from [facility] Blood specimen (specimen) UPPER LIMB STRUCTURE / Unknown 06/17/2015 Rojas Cunningham MD CHEMISTRY ORDERABLES Final Resu lt Performing Organization Address [facility] de Phone Number SEP OFFICE * C-PEPTIDE -REF LAB (02/02/2015) Only the most recent of7 resultswithin the time period is included. C-Peptide 1.3 SEP OFFICE Comment:1.1-4.4, FAX FROM [facility] Blood specimen (specimen) UPPER LIMB STRUCTURE / Unknown 02/02/2015 Rojas Cunningham MD CHEMISTRY ORDERABLES Final Resu lt Performing Organization Address [facility] de Phone Number SEP OFFICE * (ABNORMAL) NMR LIPOPROFILE 8008 (10/13/2014 10:53 AM EST) Only the most recent of3 resultswithin the time period is included. LDL Particle Number by NMR 2,015 SEP OFFICE Comment:<1000, FAX FROM [facility] HDL Particle Number 30.4 SEP OFFICE Comment:>30.5 [...] Blood specimen (specimen) 10/13/2014 10:53 AM EST Rojsa Cunningham MD CHEMISTRY ORDERABLES Edited Res ult - Final Performing Organization Address [facility] Co de [...] ORDERABLES F inal Result Performing Organization Address [facility] Phone Number SEP OFFICE * LACTIC ACID (01/30/2014 4:11 PM EDT) Lactic Acid 2.0 0.5 - 2.2 mmol/L [facility] Blood specimen (specimen) UPPER LIMB STRUCTURE / Unknown 01/30/2014 4:11 PM EDT 01/30/2014 4:20 PM EDT Rojas Cunningham MD CHEMISTRY ORDERABLES Final Resu lt Performing Organization Address [facility] de Phone Number [facility] [address] [place] [address] * SCANNED RADIOLOGY REPORT (06/25/2013 11:22 AM [...] There are no significant reversible defects. Jovany MORGAN NM CARDIAC ORDERABLES Final Result * ST [...] included. LDL Calculated 85 <=100 mg/dL [facility] Comment: < 100 Optimal 100 - 129 Near or above optimal 130 - 159 Borderline High 160 - 189 High >= 190 Very High Blood specimen (specimen) 06/25/2013 4:57 AM EDT 06/25/2013 6:16 AM EDT us Armando Martin MD CHEMISTRY ORDERABLES Final Re sult [facility] [address] [place] [address] * MRI BRAIN WO CONTRAST (06/24/2013 3:25 [...] Normal aortic root dimension. CONCLUSIONS us Abril Bernstein APRN IMG ECHO ORDERABLES Final Resu lt * [place] US CAROTID DUPLEX BILATERAL (06/24/2013 8:13 AM [...] Reflex 1.650 0.300 - 5.000 mcIU/mL [facility] Blood specimen (specimen) UPPER LIMB STRUCTURE / Unknown 06/24/2013 5:11 AM EDT 06/24/2013 1:51 PM EDT us Jovany Rosario MD CHEMISTRY ORDERABLES Final Result [facility] [address] [place] [address] * TROPONIN-I (06/24/2013 1:16 AM EDT) Only the most recent of9 resultswithin the time period is included. Troponin-I <0.01 <=0.06 ng/mL [facility] Blood specimen (specimen) UPPER LIMB STRUCTURE / Unknown 06/24/2013 1:16 AM EDT 06/24/2013 1:21 AM EDT us Boris Rodriguez MD CHEMISTRY ORDERABLES Final Resul t Performing Organization Address [facility] Co de Phone Number [facility] [address] [place] [address] * CT HEAD WO CONTRAST (06/23/2013 6:18 [...] radiata cystic ischemic change. Boris Rodriguez MD [facility] ORDERABLES Final Result * XR CHEST [...] No acute disease identified. Boris Rodriguez MD [facility] DIAGNOSTIC IMAGING ORDERABLE S Final Result * ED TROPONIN (06/23/2013 1:26 PM EDT) Only the most recent of2 resultswithin the time period is included. Pathologist [facility] ED TNI 0.00 <=0.06 ng/mL [facility] Blood specimen (specimen) UPPER LIMB STRUCTURE / Unknown 06/23/2013 1:26 PM EDT 06/23/2013 1:27 PM EDT us Boris Rodriguez MD CHEMISTRY ORDERABLES Final Resul t Performing Organization Address City/[facility]/ZIP Co de Phone Number [facility] [address] [place] [address] * POCT RAPID STREP A (02/06/2013 9:21 AM EDT) Strep A Ag None Detected None Detected Pos/Neg SEP OFFICE Comment:negative Lot Number SEP OFFICE Expiration Date SEP OFFICE SeriAl # SEP OFFICE Control Line Yes/No SEP OFFICE Specimen from throat (specimen) 02/06/2013 9:21 AM EDT Boris Sarmiento MD POINT OF CARE TEST ORDERABLE S Final Result Performing Organization Address [facility] de Phone Number SEP OFFICE * POCT EKG (01/22/2013 1:37 PM EDT) 01/22/2013 1:37 PM EDT Chris Serra MD POINT OF CARE CARDIOLOGY Final Result Performing Organization Address [facility] de Phone Number SEP OFFICE * POCT MICROALBUMIN (01/10/2013 11:26 AM EDT) Albumin, Ur neg <=20 mg/L SEP OFFICE Lot Number SEP OFFICE Expiration Date SEP OFFICE SeriAl # SEP OFFICE Urine specimen (specimen) 01/10/2013 11:26 AM EDT Boris Sarmiento MD POINT OF CARE TEST ORDERABLE S Final Result Performing Organization Address [facility] de Phone Number SEP OFFICE * (ABNORMAL) POCT URINALYSIS DIPSTICK (01/10/2013 11:26 AM EDT) Only the most recent of3 resultswithin the time period is included. 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 They [...] recent coronaryangiogram appear TECHNICAL FACTORS: 3-D noncontrast mabw-ia-[id number] MIP reconstructed imagesobtained without contrast. They were [...] recent coronary angiogram. TECHNICAL FACTORS: 2-D noncontrast lhxc-yw-uyxepa MIP reconstructed images from axial acquired source [...] after recent coronaryangiogram. TECHNICAL FACTORS: 2-D noncontrast told-fk-hihgha MIP reconstructed imagesfrom axial acquired source images. [...] location. No gross stenosis. Lonnie Dotson MD IM MRI ORDERABLES Final Resu lt * POCT ACTIVATED CLOTTING TIME (01/03/2013 9:47 AM EDT) [facility] ACT 239 sec [facility] Lot Number [id number] [facility] Expiration Date [facility] SeriAl # [id number] [facility] Meter 2 [facility] Blood specimen (specimen) 01/03/2013 9:47 AM EDT Chris Serra MD POINT OF CARE TEST ORDERABLES F inal Result [facility] [address] [place] [address] * RESIN FILTERER PROCEDURE LOG (01/03/2013 9:22 AM EDT) 01/03/2013 9:22 AM EDT us Soo Storey APRN [facility] CARDIAC CATH ORDERABLE S Final Result [facility] * EC ECHOCARDIOGRAM COMPLETE W DOPPLER AND COLOR FLOW MAPPING (01/02/2013 4:11 PM EDT) [facility] Ejection Fraction 55 % PYRAMIS Anatomical [...] [facility]. Fluoroscopy time 2.09 minutes. us Tristan Ron MD IM FLUOROSCOPY ORDERABLES Final [...] cm. IMPRESSION: Stable appearance of the thyroid us Tristan Ron MD IM US ORDERABLES Final Result * THYROID PEROXIDASE (TPO) ANTIBODY-[facility] (04/03/2012 10:39 AM EDT) TPO Ab <0.3 0.0 - 9.0 IU/mL [facility] Blood specimen (specimen) UPPER LIMB STRUCTURE / Unknown 04/03/2012 10:39 AM EDT 04/03/2012 2:23 PM EDT Rojas Cunningham MD IMMUNOLOGY ORDERABLES Final Res ult Performing Organization Address [facility] Co de Phone Number [facility] [address] [place] [address] * GLUTAMIC ACID DECARBOXYLASE AB-[facility] (04/03/2012 10:39 AM EDT) STEPHEN Ab <5.0 0.0 - 5.0 IU/mL [facility] Comment: INTERPRETIVE INFORMATION: Glutamic Acid Decarboxylase Antibody A value greater than 5.0 IU/mL is considered positive for Glutamic Acid Decarboxylase Antibody. Blood specimen (specimen) UPPER LIMB STRUCTURE / Unknown 04/03/2012 10:39 AM EDT 04/03/2012 4:39 PM EDT Rojas Cunningham MD CHEMISTRY ORDERABLES Final Resu lt Performing Organization Address [facility] Co de Phone Number [facility] [address] [place] [address] * MICROALBUMIN, URINE-[facility] (04/02/2012 11:05 AM EDT) Total Volume Random mL [facility] Hrs Jessica Random hr [facility] U Creatinine 96 mg/dL [facility] U24 Creat Not Applicable 700 - 1600 mg/day [facility] Microalbumin mg/dL-[facility] 0.3 mg/dL [facility] Microalbumin/Cre atinine Ratio-ARUP 3 0 - 30 mg/gm [facility] Microalbumin ug/minute-[facility] Not Applicable 0 - 20 mcg/min [facility] Microalbumin mg/day-[facility] Not Applicable 2 - 30 mg/day [facility] Urine specimen (specimen) 04/02/2012 11:05 AM EDT 04/02/2012 2:48 PM EDT us Ara Vivianarichard Howell APRN URINE ORDERABLES Final R esult [facility] [address] [place] [address] * CT ABDOMEN PELVIS WO ORAL OR [...] Acid 0.31(H) 0.00 - 0.30 mmol/L [facility] Blood specimen (specimen) 02/19/2012 4:05 PM EDT 02/19/2012 4:10 PM EDT Kyle Cortez MD CHEMISTRY ORDERABLES Catrachita l Result Performing Organization Address [facility] Co de Phone Number [facility] [address] [place] [address] * LIPASE LEVEL (02/19/2012 4:05 PM EDT) Only the most recent of5 resultswithin the time period is included. Lipase Lvl 49 36 - 250 IU/L [facility] Blood specimen (specimen) UPPER LIMB STRUCTURE / Unknown 02/19/2012 4:05 PM EDT 02/19/2012 4:10 PM EDT Kyle Cortez MD CHEMISTRY ORDERABLES Catrachita l Result Performing Organization Address [facility] Co de Phone Number [facility] [address] [place] [address] * (ABNORMAL) AMYLASE LEVEL (02/19/2012 4:05 PM EDT) Only the most recent of3 resultswithin the time period is included. Pathologist [facility] Amylase Lvl <30(L) 30 - 97 IU/L [facility] Blood specimen (specimen) UPPER LIMB STRUCTURE / Unknown 02/19/2012 4:05 PM EDT 02/19/2012 4:10 PM EDT Kyle Cortez MD CHEMISTRY ORDERABLES Catrachita l Result Performing Organization Address [facility] Co de Phone Number [facility] [address] [place] [address] * (ABNORMAL) URINALYSIS (02/19/2012 4:03 PM EDT) Only the most recent of2 resultswithin the time period is included. [facility] UA Color Yellow [facility] UA Appear Clear [facility] UA Glucose 150 mg%(A) Negative [facility] UA Bili Negative Negative [facility] UA Ketones Negative Negative mg/dL [facility] UA Blood Negative Negative [facility] UA pH 7.5 4.8 - 8.0 [facility] UA Protein Trace(A) Negative [facility] UA Urobilinogen Normal [facility] UA Nitrite Negative Negative [facility] UA Leuk Est Negative Negative [facility] UA Spec Grav 1.018 1.001 - 1.035 [facility] UA WBC 2 0 - 4 /HPF [facility] UA RBC 1 0 - 3 /HPF [facility] UA Squam Epi 1+ [facility] UA Mucus Trace [facility] Urine specimen (specimen) STRUCTURE OF URINARY TRACT PROPER / Unknown 02/19/2012 4:03 PM EDT 02/19/2012 4:03 PM EDT Kyle Cortez MD URINE ORDERABLES Edited Performing Organization Address [facility]/ZIP Co de Phone Number [facility] [address] [place] [address] * URINE CULTURE (02/19/2012 4:03 PM EDT) [facility] Final Three or more bacterial species isolated from urine indicating superficial or fecal contamination Recollect if clinically indicated [facility] Urine specimen obtained by clean catch procedure (specimen) STRUCTURE OF URINARY TRACT PROPER / Unknown 02/19/2012 4:03 PM EDT 02/19/2012 4:16 PM EDT us Kyle Cortez MD MICROBIOLOGY - GENERAL OR DERABLES Final Result [facility] [address] [place] [address] * XR CHEST PA AND LATERAL (02/01/2012 1:25 PM EDT) Only the most recent of2 resultswithin the time period is included. Anatomical Region Laterality Modality Chest Radiographic [place] ging 02/01/2012 Impressions 02/01/2012 1:57 PM EDT Impression: Normal chest. Narrative 02/01/2012 1:57 PM EDT PA and Lateral Chest: Feb 01, 2012 01:25:23 PM History: [id number] Findings: The heart and lungs are within normal limits. Procedure Note Esme Baron - 02/01/2012 PA and Lateral Chest: Feb 01, 2012 01:25:23 PM History: [id number] Findings: The heart and lungs are within normal limits. Impression: Normal chest. us Arely Karimi MD IMG DIAGNOSTIC IMAGING ORDERA BLES Final Result * (ABNORMAL) VITAMIN D, [id number] (01/04/2012 11:29 AM EDT) Vit D 25 OH 19(L) 30 - 80 ng/mL [facility] Comment: INTERPRETIVE INFORMATION: Vitamin D, 25-Hydroxy This assay accurately quantifies the sum of vitamin D3, 25-hydroxy and vitamin D2, 25-hydroxy. 0-17 years: Deficiency: less than 20 ng/mL Optimum level: greater than or equal to 20 ng/mL* *(Jaylan CL et al. Pediatrics 2008; 122: 1142-52.) 18 years and older: Deficiency: Less than 20 ng/mL Insufficiency: 20-29 ng/mL Optimum Level: 30-80 ng/mL Possible Toxicity: Greater than 150 ng/mL Blood specimen (specimen) UPPER LIMB STRUCTURE / Unknown 01/04/2012 11:29 AM EDT 01/04/2012 2:09 PM EDT us Harper Mcgrath MD CHEMISTRY ORDERABLES Fin al Result [facility] [address] [place] [address] * ST STRESS TEST EXERCISE (11/22/2011 11:32 [...] the colon No lymphadenopathy or bowel obstruction Imme-dg-afmbocxn clonic diverticulosis. No evidence of diverticulitis. Procedure [...] the colon No lymphadenopathy or bowel obstruction Nrsb-uh-pqmkeafp clonic diverticulosis. No evidence of diverticulitis. IMPRESSION: No acute findings. Normal appendix. Nonobstructing bilateralsmall renal stones. Cal Pate MD IMG CT ORDERABLES Final Result * NON-3D ANIMATOR CYTOLOGY REPORT (08/25/2011 2:39 PM EST) Non-Computer Aided Design Designer Cytology Report PATIENT NAME:ANGELES POPE Non-Computer Aided Design Designer Cytology Report Accession Number Collected Date/Time Received Date/Time [id number] 08/25/11 14:39 EST 08/25/11 14:40 EST Specimen Source Fine Needle Aspiration - Right Thyroid Diagnosis Other Diagnostic Category, see comment section. Comment Specimen Adequacy: Satisfactory Cellular specimen composed of uniform, cytologically bland-appearing follicular epithelial cells with a predominantly macrofollicular arrangement. Colloid is present. COMMENT: The cytologic findings are consistent with a benign thyroid nodule. Clinical and radiographic correlation is recommended. Meat Inspector: MR YUNG 08/28/2011 Completed by: BRENT OROZCO MD (Electronically signed by) 08/28/2011 [facility] Laboratory Gross Description 4 direct smears made. Evaluation Episode #1: Adequate Evaluation Episode #2: Adequate Immediate Assessment for Adequacy: Adequate for cytologic diagnosis./ QL [facility] 08/25/2011 2:39 PM EST Jeremy Ravi MD CYTOLOGY ORDERABLES Final Result [facility] [address] [place] [address] * US GUIDED THYROID BIOPSY (08/25/2011 2:03 [...] needle biopsy thyroidnodule. us Tristan Ron MD [facility] US ORDERABLES Final Result * SCANNED OR REPORT (07/06/2011 12:00 AM EDT) Narrative 07/06/2011 9:26 PM EDT Ordered by an unspecified provider. Transcriptions Unknown, Unknown - 07/06/2011 9:26 PM EDT us Unknown Unknown PROCEDURE/MINOR SURGICAL ORDERAB LES Final Result * FOLLICLE STIMULATING HORMONE LEVEL (06/14/2011 11:12 AM EDT) FSH 33.9 mIU/mL [facility] Comment: Suggested Reference Range (mIU/mL) Postmenopausal Female 22 - 130 Follicular Phase Female 2 - 12 Luteal Phase Female 1 - 10 Blood specimen (specimen) UPPER LIMB STRUCTURE / Unknown 06/14/2011 11:12 AM EDT 06/14/2011 12:40 PM EDT us Harper Mcgrath MD CHEMISTRY ORDERABLES Fin al Result [facility] [address] [place] [address] * XR ABDOMEN AP (05/11/2011 2:21 PM [...] EDT) D-Dimer <0.22 <=0.45 mcg/ml FEU [facility] Comment: The D-dimer test is used [...] MD HEMATOLOGY ORDERABLES Final R esult [facility] [address] [place] [id number] * SCANNED OR REPORT (04/28/2010 12:00 AM [...] EST Name: BETZAIDA CHAN : 1960 VERIFIED [facility] Reason: 592.0/KUB Dict.Staff: ANGELA FARRIS [id number] Verified By: WILLA WEI Moncho: 11/05/09 11:32 pm Exams: [id number] [id number] KUB, 11/05/2009: COMPARISON: 09/08/2009. HISTORY: Right [...] 01/21/2010 Name: BETZAIDA CHAN : 1960 VERIFIED [facility] Reason: 592.0/KUB Dict.Staff: ANGELA FARRIS [id number] Verified By: WILLA WEI Moncho: 11/05/09 11:32 pm Exams: [id number] [id number] [facility], 11/05/2009: COMPARISON: 09/08/2009. HISTORY: Right [...] pronounced than previous t racing Borderline ECG It Applications Analyst- JEFFREY MOSQUERA M.D. Reading Physician- JEFFREY MOSQUERA M.D. Released Date Time- 10/06/09 0445 Procedure Note Jeffrey Mosquera - 12/17/2009 Sinus rhythm Anterior T wave changes are nonspecific, more pronounced than previous t racing Borderline ECG It Applications Analyst- JEFFREY MOSQUERA M.D. Reading Physician- JEFFREY MOSQUERA M.D. Released Date Time- 10/06/09 0445 us Wiley Garza MD [facility] STAR CARD HISTORICAL Final Result * CT ABDOMEN W/O CONTRAST (09/08/2009 12:00 AM EST) Only the most recent of2 resultswithin the time period is included. Anatomical Region Laterality Modality Other 09/08/2009 09/08/2009 Narrative 09/08/2009 12:00 AM EST Name: BETZAIDA CHAN : 1960 VERIFIED [facility] Reason: ac9 stone protocol Dict.Staff: ESME FREEMAN [id number] Verified By: MIK FREEMAN Moncho: 09/09/09 11:04 [...] 01/21/2010 Name: BETZAIDA CHAN : 1960 VERIFIED [facility] Reason: ac9 stone protocol Dict.Staff: ESME FREEMAN [id number] Verified By: MIK FREEMAN Moncho: 09/09/09 11:04 [...] EDT Name: BETZAIDA CHAN : 1960 VERIFIED [facility] Reason: abd pain Dict.Staff: MARY RAMOS [id number] Verified By: ARMANDO SUNSHINE Moncho: 08/02/09 1:43 [...] ABNORMALITY. PROBABLE RIGHT KIDNEY STONE. NEGATIVE CHEST. UpOutSER/janelle DICTATED ON AUGUST 01, 2009 @ 15:41 HOURS. end of result Procedure Note Unknown, U - 01/21/2010 Name: BETZAIDA CHAN : 1960 VERIFIED [facility] Reason: abd pain Dict.Staff: MARY RAMOS [id number] Verified By: ARMANDO SUNSHINE Moncho: 08/02/09 1:43 [...] ABNORMALITY. PROBABLE RIGHT KIDNEY STONE. NEGATIVE CHEST. BRANDSER/janelle DICTATED ON AUGUST 01, 2009 @ 15:41 HOURS. end of result us U Unknown IMG [facility] LW RAD HISTORICAL Final Result Visit Diagnoses [...] type 2 diabetes mellitus with complication, unspecified assisted insulin use status 11/27/2016 Post-surgical hypothyroidism Postsurgical [...] excess calories (HCC) 01/31/2017 BMI 40.0-44.9, adult ([facility]) Body Mass Index 40.0-44.9, adult 01/31/2017 Weight gain Abnormal weight gain 03/06/2017 SATYA (obstructive sleep apnea) Obstructive sleep apnea (adult) (pediatric) 03/06/2017 Uncontrolled type 2 diabetes mellitus with complication, with long-term current use of insulin 03/06/2017 Post-surgical hypothyroidism Postsurgical hypothyroidism 03/06/2017 Follicular thyroid cancer (HCC) Malignant neoplasm of thyroid gland 03/06/2017 Morbid obesity due to excess calories (HCC) 03/06/2017 BMI 40.0-44.9, adult ([facility]) Body Mass Index 40.0-44.9, [...] Generalized anxiety disorder 03/30/2017 No diagnosis on Sinclair II Observation of other suspected mental condition [...] 04/03/2017 Morbid obesity due to excess calories ([facility]) 04/16/2017 Morbid obesity with BMI of 40.0-44.9, adult ([facility]) 04/18/2017 Morbid obesity due to excess calories ([facility]) 05/03/2017 Morbid obesity, unspecified obesity type ([facility]) 05/03/2017 Morbid obesity with BMI of 40.0-44.9, adult ([facility]) 05/03/2017 Vitamin deficiency Unspecified vitamin deficiency 05/08/2017 Morbid obesity with BMI of 40.0-44.9, adult ([facility]) 05/17/2017 Uncontrolled type 2 diabetes mellitus with complication, with long-term current use of insulin 05/17/2017 Essential hypertension Unspecified essential hypertension 05/17/2017 Sleep apnea, unspecified type 05/17/2017 Morbid obesity due to excess calories ([facility]) 05/17/2017 Chest pain, unspecified [...] Morbid obesity with BMI of 40.0-44.9, adult ([facility]) 05/17/2017 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, unspecified vessel or lesion type 05/21/2017 History of coronary artery stent placement 05/21/2017 Morbid obesity (HCC) Morbid obesity 05/21/2017 BMI 40.0-44.9, adult ([facility]) Body Mass Index 40.0-44.9, [...] 05/23/2017 Morbid obesity due to excess calories ([facility]) 05/23/2017 Morbid obesity ([facility]) Morbid obesity 05/30/2017 Fever, unspecified fever cause [...] (BMI) of 35.0 to 35.9 in adult 12/10/2017 Follicular thyroid cancer (HCC) Malignant neoplasm [...] (HCC) Malignant neoplasm of thyroid gland 02/23/2025 Vitamin D deficiency Unspecified vitamin D deficiency 07/04/2025 Dyslipidemia associated with type 2 diabetes mellitus (HCC) Type II or unspecified type diabetes mellitus with other specified manifestations, not stated as uncontrolled 07/09/2025 Post-surgical hypothyroidism Postsurgical hypothyroidism 07/09/2025 Follicular thyroid cancer (HCC) Malignant neoplasm of thyroid gland 07/09/2025 Vitamin D deficiency Unspecified vitamin D deficiency 07/09/2025 Chest pain Chest pain, unspecified 01/01/2013 Diabetes [...] obesity with BMI of 40.0-44.9, adult (HCC) 05/30/2017 Sleep apnea Unspecified sleep apnea 05/30/2017 [...] EDT) No Jigna Dove LCSW Care Teams Multi Site Leasing Consultant Relationship Specialty Start Date End Date Chris Serra MD [address] [place] [address] Physician Internal Medicine-Cardiovascular Disease 01/16/13
--- NOTE | 2025-08-20 15:00 | CT_ITS ---
FINAL REPORT TECHNIQUE: CT examination of the soft tissues of the neck was performed from the mid calvarium to the thoracic inlet. No intravenous contrast was administered. Multiplanar reconstructions in the sagittal and coronal planes were performed. This study was performed with techniques to keep radiation doses as low as reasonably achievable (ALARA). Individualized dose reduction techniques using automated exposure control or adjustment of mA and/or kV according to the patient's size were employed. CLINICAL HISTORY: mass on the side of neck eval for treatment COMPARISON: 08/14/2023 FINDINGS: CT SOFT TISSUES NECK: The examination is limited without the use of intravenous contrast. There is a bilobed appearance of the right submandibular gland, which was also seen on the prior exam of 2022, and given stability from the prior exam likely represents a normal variant. The left submandibular gland is unremarkable in appearance. The remainder of the salivary glands are normal. No obvious adenopathy is noted. The larynx is normal. The visualized paranasal sinuses are normal. The previously questioned pre-epiglottic mass from the prior CT is no longer seen. IMPRESSION: 1. Unremarkable CT of the soft tissues of the neck without contrast. Reviewed, Interpreted and Dictated by Jeanie Neal MD Transcribed by Tianna Means Authenticated and [facility]
== END 2025-08-20 23:59 | disposition home or self-care (01) ==
LOC: RAD 14:35
PROVIDERS: PCP Nurse Practitioner Family; Visit Provider Nurse Practitioner
DX: R22.1 Localized swelling, mass and lump, neck (principal)
CPT/HCPCS: 70490

== ENCOUNTER 2025-08-25 15:00 | Outpatient (CLI) | payer MEDICARE, MEDICAID, SELFPAY | END 2025-08-25 23:59 | disposition home or self-care (01) | LOC: LAB.DROPOF 08-26 10:55 | PROVIDERS: PCP Nurse Practitioner Family; Visit Provider Nurse Practitioner Family | DX: L89.90 Pressure ulcer of unspecified site, unspecified stage (principal) | CPT/HCPCS: 87070; 87205 ==

== ENCOUNTER 2025-08-31 16:20 | Outpatient (CLI) | payer MEDICARE, MEDICAID, SELFPAY ==
[2025-08-31 17:46] LABS: Albumin Level 4.3 g/dl (3.5-5.0); Chloride 102 mmol/L (98-107); Potassium 4.3 mmoL/L (3.5-5.1); Sodium 144 mmol/L (136-145)
[2025-08-31 17:48] LABS: Blood Urea Nitrogen 16 mg/dl (7-17); Creatinine,Serum 0.90 mg/dl (0.52-1.04); Estimated Glomerular Filt Rate 63 ml/min (>60); GFR (African American) 77 ML/MIN (>60)
[2025-08-31 17:49] LABS: Alanine Aminotransferase 14 U/L (12-78); Albumin/Globulin Ratio 1.4 (1.1-1.8); Alkaline Phosphatase 109 U/L (38-126); Anion Gap 16.3 mEq/L (5-15); Aspartate Amino Transferase 26 U/L (14-36); Bilirubin,Total 0.5 mg/dl (0.2-1.3); Calcium 9.2 mg/dl (8.4-10.2); Carbon Dioxide 30 mmol/L (22.0-30.0); Globulin 3.0 g/dL (1.3-3.2); Glucose 82 mg/dl (74-100); Total Protein,Serum 7.3 g/dl (6.3-8.2)
== END 2025-08-31 23:59 ==
LOC: LAB.DROPOF 09-01 09:00
PROVIDERS: PCP Nurse Practitioner Family; Visit Provider Nurse Practitioner Family
DX: Z22.322 Carrier or suspected carrier of Methicillin resistant Staphylococcus aureus (principal)
CPT/HCPCS: 80053

== ENCOUNTER 2025-09-02 08:33 | Outpatient (CLI) | payer MEDICARE, MEDICAID, SELFPAY ==
--- OUTSIDE RECORDS SUMMARY | 2025-07-09 10:40 | XMS_ITS | Encounter Summary ---
Author [place] [address] Care Team Providers Care Section Laborer Name Role Phone Chris Serra MD Unavailable [phone] Reason for Visit * Reason Comments Diabetes Type 2 Encounter Details Date Type Department Care Team (Late st Contact Info) Description 07/09/2025 11:40 AM EDT Office Visit [facility] [place] 1500 [facility] [address] [place], [place] [id number] Rojas Cunningham MD [address] [place] [facility] [address] [place] [phone] Dyslipidemia associated with type 2 diabetes mellitus (HCC) (Primary Dx); Post-surgical hypothyroidism; Follicular thyroid cancer (HCC); Vitamin D deficiency Social History Tobacco Use Types Packs/Day Years [...] Sign Reading Time Taken Comments Blood Pressure 120/71 07/09/2025 12:05 PM EDT Pulse 63 07/09/2025 12:05 PM EDT Temperature - - Respiratory Rate - - Oxygen Saturation - - Inhaled Oxygen Concentration - - Weight 84.7 kg (186 lb 11.2 oz) 025 12:05 PM EDT Height 160 cm (5' 3 ) 07/09/2025 12:05 PM EDT Body Mass Index 33.07 07/09/2025 12:05 PM EDT documented in this encounter Functional [...] Progress Notes * Rojas Cunningham MD - 07/09/2025 11:40 AM EDT Subjective: Patient ID: Angeles Machado is a 65 y.o. female who is here for further [...] found for patient Currently on: Insulin medications: -01/09/2024 TRESIBA FLEXTOUCH U-100 INSULIN 100 UNIT/ML (3 ML) SUBCUTANEOUS PEN - 0 Rx#. Insulin release stimulant medications: No insulin release stimulant orders found for patient DPP-4 Inhibitor medications: No DDP-4 Inhibitor orders found for patient GLP-1 agonists medications: -09/05/2023 TRULICITY 3 MG/0.5 ML SUBCUTANEOUS PEN INJECTOR - 3 mg WEEKLY Rx#. Incretin mimetic combination medications: No Incretin Mimetic Combination orders found for patient Other hyperglycemic medications: No Incretin Mimetic Combination orders found for patient Insulin; has been on it for about 2-3 years- Tresiba 58 Insulin Dosing Basal Insulin Type: Tresiba Basal Insulin - P.M.: 46 units Breakfast Lunch Dinner Bedtime/Snack Metformin: had allergies; [...] PRAVASTATIN 20 MG TABLET - 0 NIGHTLY Rx#. PCSK9 Inhibitors: -07/18/2024 REPATHA SURECLICK 140 MG/ML SUBCUTANEOUS PEN INJECTOR - 140 mg EVERY 14 DAYS Rx#. Other antihyperlipidemic medications: No other antihyperlipidemic orders found for patient Therapy plan medications: No therapy plan of the specified type found. Lebanese Score is 4 Has 3 children Allergic [...] PTC found Had Ablation at Takes daily 175 mcg Lab Results Component Value Date TSH 17.500 [...] systems reviewed and are negative. Objective: Vitals: 07/09/25 1205 BP: 120/71 BP Location: Left arm Patient Position: Sitting Pulse: 63 Weight: 186 lb 11.2 oz (84.7 kg) Height: 5' 3 (1.6 m) Body mass index is 33.07 kg/m??. Physical Exam Constitutional: General: She is [...] Judgment: Judgment normal. Monofilament and Eye Exam Pedal Pulses Neurologic Foot Inspection Eye Exam External Results Assessment and Plan: Angeles was seen today for diabetes. Diagnoses and all orders for this visit: Dyslipidemia associated with type 2 diabetes mellitus (HCC) - [place] CONTINUOUS GLUCOSE MONITORING ANALYSIS I&R - C-REACTIVE PROTEIN; Future - COMPREHENSIVE METABOLIC PANEL; Future - HEMOGLOBIN A1C; Future - MICROALBUMIN/CREATININE RATIO URINE; Future - VITAMIN B12 LEVEL; Future - LIPID PANEL REFLEX; Future Post-surgical hypothyroidism - THYROID STIMULATING HORMONE; Future Follicular thyroid cancer (HCC) - THYROGLOBULIN AND TG AB REFLEX MONITOR-REF LAB; Future Vitamin D deficiency - VITAMIN D 25 HYDROXY; Future Patient Instructions Please continue same dose of the medication(s) we prescribed. Will see you back in clinic in 6 Months , with me, with blood work done 1-2 Weeks prior to the clinic appointment. Endocrine Problem list updated. No follow-ups on file. DexCom/Milagro Patient have Diabetes mellitus Patient is checking blood sugar levels 4 times daily Patient is injecting insulin 3 times a day Patient's insulin treatment regimen requires frequent Adjustment by the patient on the basis of BGMor CGM testing results; and patient have been seen within the last 6 months Patient continues to see doctor at least every 6 months 72 hour CGM tracings extensively reviewed Lab Results Component Value Date HGBA1C 6.9 05/06/2024 HGBA1C 7.8 12/31/2023 HGBA1C 6.8 09/18/2023 Lab Results Component Value Date FRUCT 248 10/19/2021 FRUCT 288 (A) 10/20/2020 FRUCT 287 (A) 07/06/2020 FRUCT 278 03/09/2020 FRUCTOSAMINE 273 08/07/2022 FRUCTOSAMINE 272 05/04/2022 FRUCTOSAMINE 284 09/05/2021 FRUCTOSAMINE 275 05/31/2021 FRUCTOSAMINE 242 01/25/2021 mpression: 1) Avg Glucose 162 mg/dL 2) Estimated A1c would be 7.2% (if she keeps all the same as during the days of insertion) 3) Coefficient of Variation 36 % 4) Time CGM Active 95 % 5) In Target Range: 65 % 6) Below 70 mg/dL: 0 % 7) Above 180 mg/dL: 35 % 8) Patterns - Postmeal hyperglycemia documented in this encounter Plan of Treatment Upcoming Encounters Date Type Department Care Team (Late st Contact Info) Description 01/07/2026 3:40 PM EDT Office Visit [facility] [place] [address] [phone] Rojas Cunningham MD [address] [phone] Scheduled Orders Name Type Priority Associated Diagnoses Orde r Schedule [place] CONTINUOUS GLUCOSE MONITORING ANALYSIS I&R ME Charge Routine Dyslipidemia associated with type 2 diabetes mellitus (HCC) Ordered: 07/09/2025 C-REACTIVE PROTEIN Lab Routine Dyslipidemia associated with type 2 diabetes mellitus (HCC) Expected: 12/07/2025, Expires: 03/07/2026 COMPREHENSIVE METABOLIC PANEL Lab Routine Dyslipidemia associated with type 2 diabetes mellitus (HCC) Expected: 12/07/2025, Expires: 03/07/2026 HEMOGLOBIN A1C Lab Routine Dyslipidemia associated with type 2 diabetes mellitus (HCC) Expected: 12/07/2025, Expires: 03/07/2026 MICROALBUMIN/CREATININE RATIO URINE Lab Routine Dyslipidemia associated with type 2 diabetes mellitus (HCC) Expected: 12/07/2025, Expires: 03/07/2026 VITAMIN D 25 HYDROXY Lab Routine Vitamin D deficiency Expected: 12/07/2025, Expires: 03/07/2026 VITAMIN B12 LEVEL Lab Routine Dyslipidemia associated with type 2 diabetes mellitus (HCC) Expected: 12/07/2025, Expires: 03/07/2026 LIPID PANEL REFLEX Lab Routine Dyslipidemia associated with type 2 diabetes mellitus (HCC) Expected: 12/07/2025, Expires: 03/07/2026 THYROID STIMULATING HORMONE Lab Routine Post-surgical hypothyroidism Expected: 12/07/2025, Expires: 03/07/2026 THYROGLOBULIN AND TG AB REFLEX MONITOR-REF LAB Lab Routine Follicular thyroid cancer (HCC) Expected: 12/07/2025, Expires: 03/07/2026 documented as of this encounter Goals Goal Patient Goal Type Associated Problems Recent Progress Patient-Stated? Author Blood Pressure < 140/90 Blood Pressure 120/71(2024 12:05 PM EDT) Jigna Carney LCSW BMI (Calculated) < 30 General 33.1(07/09/20 12:05 PM EDT) No Jigna Dove LCSW Maintain a healthy diet, exercise regularly and maintain an ideal body weight General No Jigna Dove LCSW HEMOGLOBIN A1C < 7.0 Result Component 7.2( 11:14 AM EDT) Jigna Carney LCSW documented as of this encounter Visit Diagnoses Diagnosis Dyslipidemia associated with type 2 diabetes mellitus (HCC)- Primary Type II or unspecified type diabetes mellitus with other specified manifestations, not stated as uncontrolled Post-surgical hypothyroidism Postsurgical hypothyroidism Follicular thyroid cancer (HCC) Malignant neoplasm of thyroid gland Vitamin D deficiency Unspecified vitamin D deficiency documented in this encounter Discontinued Medications Medication Sig Discontinue Reason Start Date End Da te glimepiride (AMARYL) 4 mg Oral TabletIndications:Type 2 diabetes mellitus with hyperglycemia, with long-term current use of insulin (HCC) Take 1 Tablet by mouth every morning. Cancelled by 09/05/2023 07/09/2025 insulin aspart U-100 (NOVOLOG FLEXPEN U-100 INSULIN) 100 unit/mL (3 mL) SubQ Insulin PenIndications:Dyslipid emia associated with type 2 diabetes mellitus (HCC) USE DIRECTED - AVERAGE 30 UNITS DAILY. Cancelled by 02/03/2021 07/09/2025 documented as of this encounter Historical Medications * This list may reflect changes made after this encounter. metoprolol succinate (TOPROL-XL) 50 mg Oral Tablet Sustained Release 24 hr Take 50 mg by mouth every evening. 06/16/2025 KERENDIA 10 mg Oral Tablet Take 1 Tablet by mouth daily. 07/01/2025 added in this encounter Care Teams Section Laborer Relationship Specialty Start Date End Date Chris Serra MD [address] [place] [address] Physician Internal Medicine-Cardiovascular Disease 01/16/13 documented as of this encounter
--- OUTSIDE RECORDS SUMMARY | 2025-09-02 08:37 | XMS_ITS | Clinical Summary ---
Author Organization Healthcare Address [address] [place] [address] Care Team Providers Care Rolls Baker Name Role Phone Unavailable Primary Care Provider [...] 09/09/2009 [facility]-Zoster Vaccines (1 of 2) 2012 GGL-EHDOA-55 Vaccine (1 - season) 2025 [facility]-Influenza Vaccine [...]
--- OUTSIDE RECORDS SUMMARY | 2025-09-02 08:37 | XMS_ITS | Encounter Summary ---
Author Organization [place] [address] Care Team Providers Care Associate Manager Affiliate Marketing Name Role Phone Chris Serra MD Unavailable Reason for Visit * Reason Comments Medication Refill Encounter Details Date Type Department Care Team (Late st Contact Info) Description 07/04/2025 Refill [facility] [address] [facility] [address] [place], [place] [phone] Lissy Sagastume, ANJANA [address] [place], [...] Description 01/07/2026 3:40 PM EDT Office Visit [facility] [address] [facility] [address] [place] [phone] Rojas Cunningham MD [address] [facility] [address] [place] [phone] documented as of this encounter Goals [...] documented as of this encounter Care Teams Associate Manager Affiliate Marketing Relationship Specialty Start Date End Date Chris Serra MD [address] [place] [address] [place] [address] Physician Internal Medicine-Cardiovascular Disease 01/16/13 documented as of this encounter
--- OUTSIDE RECORDS SUMMARY | 2025-09-02 08:37 | XMS_ITS | Data Portability ---
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 Lab glucose, fingerstic k, blood [address] , [place], [address], 3 19:02:18 rapid SARS CoV + SARS CoV 2 Ag, QL IA, respirator y specimen [address] , [place], [address], 3 19:02:18 urinalysis , dipstick [address] , [place], [address], 3 18:19:28 microalbum in/creatin ine, mass ratio, urine 2022 023 [facility], [address] [place] [address] , [place], [address], 3 18:19:28 rapid flu (A+B) 2021 022 [facility], [address] [place] [address] , [place], [address], 2 14:19:33 rapid SARS CoV + SARS CoV 2 Ag, QL IA, respirator y specimen 2021 022 [facility], [address] [place] [address] , [place], [address], 2 14:19:33 rapid flu (A+B) 2021 022 [facility], [address] [place] [address] , [place], [address], 2 15:01:08 rapid SARS CoV + SARS CoV 2 Ag, QL IA, respirator y specimen 2021 022 [facility], [address] [place] [address] , [place], [address], 2 15:01:08 BMP, serum or plasma 2021 DIANELYS [facility], [address], [facility], [place], [address], 2 09:11:37 ESR (erythrocy te sedimentat ion rate), blood 2021 DIANELYS [facility], [address], [address], [place], [address], 09:11:38 CBC w/ auto diff 2021 DIANELYS [facility], [address], [address], [place], [address], 09:11:36 magnesium, serum or plasma 2021 DIANELYS [facility], [address], [address], [place], [address], 09:11:38 TSH, ultra-sens itive, serum 2021 DIANELYS [facility], [address], [place] [address], [place], [address], 09:11:37 C reactive protein, QN, serum or plasma 2021 DIANELYS [facility], [address], [address], [place], [address], 09:11:39 Referral physical therapist referral 2022 023 [facility], [address] [place] [address], [address], 3 14:26:34 Procedures None recorded. Surgeries None recorded. Imaging None recorded. Medication Orders tizanidine 4 mg tablet [address], [address], 3 16:33:15 prednisone 20 mg tablet [address]22 [address], [address], 3 16:33:15 sumatripta n 100 mg tablet 2022 [address], [address], 3 16:33:15 Tamiflu 75 mg capsule [address], [address], 3 14:04:35 cephalexin 500 mg capsule [address], [address], 3 14:04:11 meclizine 12.5 mg tablet 2021 [address], [address], 2 11:24:52 Patient TargetsNo targets recorded. Patient Instructions Encounter Date Encounter Id Patient Instructions Last Modified By Organization Details Last Modified Time 07/07/2022 [id number] rest over the weekend and stay well hydrated. food only as tolerated. will see if med helps with dizziness and nausea - warned of drowsiness. will talk to her when the labs are back. seek emergent care if her symptoms acutely worsen, or are concerning - eg. one-sided weakness/numbness , vision loss, etc nguttman Not available 07/07/2022 11:26:22 07/26/2022 [id number] body mass index: care instructions tgrosser Not available 07/26/2022 15:01:08 learning about healthy weight tgrosser Not available 07/26/2022 15:01:08 08/15/2022 [id number] Rest and fluids OTC's to use reviewed. [...] concerns nguttman Not available 08/15/2022 15:42:47 10/26/2022 [id number] warned that taking steroids will probably raise her blood sugar. close f/u with Dr Cunningham. if her symptoms worsen at any time, joe if she has perineal numbness, bowel/bladder incontinence, either call me or go to the ER nguttman Not available 10/26/2022 14:42:55 11/13/2022 [id number] her BS is ok. he r BP [...] x10e3 /uL 3.4-10 .8 Not Available [facility] ([facility]) [address] [place], [address], 07/08/2022 09:11:36 07/07/20 22 07/08/2022 CBC WITH DIFFE RENTI AL/PL ATELE T RBC 4.68 x10e6 /uL 3.77-5 .28 Not Available [facility] ([facility]) [address] [place], [address], 07/08/2022 09:11:36 07/07/20 22 07/08/2022 CBC WITH DIFFE RENTI AL/PL ATELE T hemoglobin 13.3 g/dL 11.1-1 5.9 Not Available [facility] ([facility]) [address] [place], [address], 07/08/2022 09:11:36 07/07/20 22 07/08/2022 CBC WITH DIFFE RENTI AL/PL ATELE T hematocrit 40.6 % 34.0-4 6.6 Not Available [facility] ([facility]) [address] [facility], [place], [address], 07/08/2022 09:11:36 07/07/20 22 07/08/2022 CBC WITH DIFFE RENTI AL/PL ATELE T MCV 87 fL 79-97 Not Available [facility] ([facility]) [address] [facility], [place], [address], 07/08/2022 09:11:36 07/07/20 22 07/08/2022 CBC WITH DIFFE RENTI AL/PL ATELE T MCH 28.4 pg 26.6-3 3.0 Not Available [facility] ([facility]) [address] [facility], [place], [address], 07/08/2022 09:11:36 07/07/20 22 07/08/2022 CBC WITH DIFFE RENTI AL/PL ATELE T MCHC 32.8 g/dL 31.5-3 5.7 Not Available [facility] ([facility]) [address] [place], [address], 07/08/2022 09:11:36 07/07/20 22 07/08/2022 CBC WITH DIFFE RENTI AL/PL ATELE T RDW 13.2 % 11.7-1 5.4 Not Available [facility] ([facility]) [address] [place], [address], 07/08/2022 09:11:36 07/07/20 22 07/08/2022 CBC WITH DIFFE RENTI AL/PL ATELE T platelets 156 x10e3 /uL 150-45 0 Not Available [facility] ([facility]) [address] [place], [address], 07/08/2022 09:11:36 07/07/20 22 07/08/2022 CBC WITH DIFFE RENTI AL/PL ATELE T neutrophils 47 % not estab. Not Available [facility] ([facility]) [address] [facility], [place], [address], 07/08/2022 09:11:36 07/07/20 22 07/08/2022 CBC WITH DIFFE RENTI AL/PL ATELE T lymphs 41 % not estab. Not Available [facility] ([facility]) [address] [facility], [place], [address], 07/08/2022 09:11:36 07/07/20 22 07/08/2022 CBC WITH DIFFE RENTI AL/PL ATELE T monocytes 9 % not estab. Not Available [facility] ([facility]) [address] [facility], [place], [address], 07/08/2022 09:11:36 07/07/20 22 07/08/2022 CBC WITH DIFFE RENTI AL/PL ATELE T eos 1 % not estab. Not Available [facility] ([facility]) [address] [facility], [place], [address], 07/08/2022 09:11:36 07/07/20 22 07/08/2022 CBC WITH DIFFE RENTI AL/PL ATELE T basos 1 % not estab. Not Available [facility] ([facility]) [address] [facility], [place], [address], 07/08/2022 09:11:36 07/07/20 22 07/08/2022 CBC WITH DIFFE RENTI AL/PL ATELE T immature cells ART CONSERVATOR Not Available [facility] ([facility]) [address] [facility], [place], [address], 07/08/2022 09:11:36 07/07/20 22 07/08/2022 CBC WITH DIFFE RENTI AL/PL ATELE T neutrophils (absolute) 2.6 x10e3 /uL 1.4-7. 0 Not Available [facility] ([facility]) [address] [facility], [place], [address], 07/08/2022 09:11:36 07/07/20 22 07/08/2022 CBC WITH DIFFE RENTI AL/PL ATELE T lymphs (absolute) 2.2 x10e3 /uL 0.7-3. 1 Not Available [facility] ([facility]) [address] [facility], [place], [address], 07/08/2022 09:11:36 07/07/20 22 07/08/2022 CBC WITH DIFFE RENTI AL/PL ATELE T monocytes(ab solute) 0.5 x10e3 /uL 0.1-0. 9 Not Available [facility] ([facility]) [address] [facility], [place], [address], 07/08/2022 09:11:36 07/07/20 22 07/08/2022 CBC WITH DIFFE RENTI AL/PL ATELE T eos (absolute) 0.1 x10e3 /uL 0.0-0. 4 Not Available [facility] ([facility]) [address] [facility], [place], [address], 07/08/2022 09:11:36 07/07/20 22 07/08/2022 CBC WITH DIFFE RENTI AL/PL ATELE T baso (absolute) 0.0 x10e3 /uL 0.0-0. 2 Not Available [facility] ([facility]) [address] [facility], [place], [address], 07/08/2022 09:11:36 07/07/20 22 07/08/2022 CBC WITH DIFFE RENTI AL/PL ATELE T immature granulocytes 1 % not estab. Not Available [facility] ([facility]) [address] [facility], [place], [address], 07/08/2022 09:11:36 07/07/20 22 07/08/2022 CBC WITH DIFFE RENTI AL/PL ATELE T immature grans (abs) 0.1 x10e3 /uL 0.0-0. 1 Not Available [facility] ([facility]) [address] [facility], [place], [address], 07/08/2022 09:11:36 07/07/20 22 07/08/2022 CBC WITH DIFFE RENTI AL/PL ATELE T NRBC ART CONSERVATOR Not Available [facility] ([facility]) [address] [facility], [place], [address], 07/08/2022 09:11:36 07/07/20 22 07/08/2022 CBC WITH DIFFE RENTI AL/PL ATELE T hematology comments: ART CONSERVATOR Not Available [facility] ([facility]) [address] [facility], [place], [address], 07/08/2022 09:11:36 07/07/20 22 07/08/2022 BASIC METAB OLIC PANEL (8) glucose 141 mg/dL 70-99 above high normal Ple ase note refer ence inter maxine cheney e Not Available [facility] ([facility]) [address] [facility], [place], [address], 07/08/2022 09:11:36 07/07/20 22 07/08/2022 BASIC METAB OLIC PANEL (8) BUN 15 mg/dL 8-27 Not Available [facility] ([facility]) [address] [facility], [place], [address], 07/08/2022 09:11:36 07/07/20 22 07/08/2022 BASIC METAB OLIC PANEL (8) creatinine 0.66 mg/dL 0.57-1 .00 Not Available [facility] ([facility]) [address] [facility], [place], [address], 07/08/2022 09:11:36 07/07/20 22 07/08/2022 BASIC METAB OLIC PANEL (8) eGFR 100 mL/mi n/1.7 3 >59 Not Available [facility] ([facility]) [address] [facility] [place], [address], 07/08/2022 09:11:36 07/07/20 22 07/08/2022 BASIC METAB OLIC PANEL (8) BUN/creatini ne ratio 23 12-28 Not Available [facility] ([facility]) [address] [facility] [place], [address], 07/08/2022 09:11:36 07/07/20 22 07/08/2022 BASIC METAB OLIC PANEL (8) sodium 143 mmol/ L 134-14 4 Not Available [facility] ([facility]) [address] [facility] [place], [address], 07/08/2022 09:11:36 07/07/20 22 07/08/2022 BASIC METAB OLIC PANEL (8) potassium 4.2 mmol/ L 3.5-5. 2 Not Available [facility] ([facility]) [address] [facility] [place], [address], 07/08/2022 09:11:36 07/07/20 22 07/08/2022 BASIC METAB OLIC PANEL (8) chloride 103 mmol/ L 96-106 Not Available [facility] ([facility]) [address] [place], [address], 07/08/2022 09:11:36 07/07/20 22 07/08/2022 BASIC METAB OLIC PANEL (8) carbon dioxide, total 24 mmol/ L 20-29 Not Available [facility] ([facility]) [address] [place], [address], 07/08/2022 09:11:36 07/07/20 22 07/08/2022 BASIC METAB OLIC PANEL (8) calcium 8.6 mg/dL 8.7-10 .3 below low normal Not Available [facility] ([facility]) [address] [facility] [place], [address], 07/08/2022 09:11:36 07/07/20 22 07/08/2022 TSH RFX ON ABNOR MAL TO FREE T4 TSH 0.016 uIU/m L 0.450- 4.500 below low normal Not Available [facility] ([facility]) [address] [facility] [place], [address], 07/08/2022 09:11:37 07/07/20 22 07/08/2022 TSH RFX ON ABNOR MAL TO FREE T4 T4,free (direct) 2.04 NG/dL 0.82-1 .77 above high normal Not Available [facility] ([facility]) [address] [facility] [place], [address], 07/08/2022 09:11:37 07/07/20 22 07/08/2022 SEDIM ENTAT ION RATE- WESTE RGREN sedimentatio n rate-westerg nader 29 mm/HR 0-40 Not Available [facility] ([facility]) [address] [facility] [place], [address], 07/08/2022 09:11:38 07/07/20 22 07/08/2022 MAGNE SIUM magnesium 1.9 mg/dL 1.6-2. 3 Not Available [facility] ([facility]) [address] [place], [address], 07/08/2022 09:11:38 07/07/20 22 07/08/2022 C-ANGELY CTIVE PROTE IN, QUANT C-reactive protein, quant 4 mg/L 0-10 Not Available [facility] ([facility]) [address] [facility] [place], [address], 07/08/2022 09:11:39 07/26/20 22 07/26/2022 rapid SARS CoV + SARS CoV 2 Ag, QL IA, respi rator y speci men SARS CoV antigen Negati ve Not Available [address] [place], [address], 07/26/2022 14:33:35 07/26/20 22 07/26/2022 rapid flu (A+B) Flu negati ve Not Available [address] , [place], [address], 07/26/2022 14:34:18 07/26/20 22 07/26/2022 rapid flu (A+B) Type Both A & B Not Available [address] , [place], [address], 07/26/2022 14:34:18 08/15/20 22 08/15/2022 rapid SARS CoV + SARS CoV 2 Ag, QL IA, respi rator y speci men SARS CoV antigen Negati ve Not Available [address] , [place], [address], 08/15/2022 13:39:15 08/15/20 22 08/15/2022 rapid flu (A+B) Flu negati ve Not Available [address] , [place], [address], 08/15/2022 13:39:04 10/26/19 23 10/26/2022 micro album in/cr eatin ine, mass ratio , urine Microalbumin 10 Not Available [facility] mirta [address] , [place], [address], 10/26/2022 08:33:54 10/26/19 23 10/26/2022 micro album in/cr eatin ine, mass ratio , urine Creatinine 200 Not Available [facility] benitez [address] , [place], [address], 10/26/2022 08:33:54 10/26/19 23 10/26/2022 micro album in/cr eatin ine, mass ratio , urine Ratio <30 Not Available [address] , [place], [address], 10/26/2022 08:33:54 10/26/19 23 10/26/2022 urina lysis , dipst ick Leukocytes Trace Not Available [address] , [place], [address], 10/26/2022 14:11:33 10/26/19 23 10/26/2022 urina lysis , dipst ick Nitrite negati ve Not Available [address] , [place], [address], 10/26/2022 14:11:33 10/26/19 23 10/26/2022 urina lysis , dipst ick Urobilinogen .2 Not Available [address] , [place], [address], 10/26/2022 14:11:33 10/26/19 23 10/26/2022 urina lysis , dipst ick Protein Negati ve Not Available [address] , [place], [address], 10/26/2022 14:11:33 10/26/19 23 10/26/2022 urina lysis , dipst ick pH 6.5 Not Available [address] , [place], [address], 10/26/2022 14:11:33 10/26/19 23 10/26/2022 urina lysis , dipst ick Blood Negati ve Not Available [address] , [place], [address], 10/26/2022 14:11:33 10/26/19 23 10/26/2022 urina lysis , dipst ick Specific Dugger 1.030 Not Available [address] , [place], [address], 10/26/2022 14:11:33 10/26/19 23 10/26/2022 urina lysis , dipst ick Ketone Negati ve Not Available [address] , [place], [address], 10/26/2022 14:11:33 10/26/19 23 10/26/2022 urina lysis , dipst ick Bilirubin Negati ve Not Available [address] , [place], [address], 10/26/2022 14:11:33 10/26/19 23 10/26/2022 urina lysis , dipst ick Glucose Negati ve Not Available [address] , [place], [address], 10/26/2022 14:11:33 10/26/19 23 10/26/2022 urina lysis , dipst ick Appearance Clear Not Available [address] , [place], [address], 10/26/2022 14:11:33 10/26/19 23 10/26/2022 urina lysis , dipst ick Color Yellow Not Available [address] , [place], [address], 10/26/2022 14:11:33 11/13/19 23 11/13/2022 rapid SARS CoV + SARS CoV 2 Ag, QL IA, respi rator y speci men SARS CoV antigen Negati ve Not Available [address] , [place], [address], 11/13/2022 15:53:16 11/13/19 23 11/13/2022 gluco brandy mcclain, blood Blood Glucose: mg/dl 169 Not Available [address] , [place], [address], 11/13/2022 15:53:03 03/20/20 23 03/20/2023 hospi lacey labs A1C 9.3 Not Available [facility] [address] [facility] , [place], [address], 03/20/2023 17:39:50 Result Notes None recorded. Problems Name Problem SNOMED Code Status Onset Date Resolution Date Notes Provider Name and Address Organization Details Recorded Time Chest pain 43861643 Completed 10/04/2020 Yecenia Ruiz MD [address], [place], [address], [place] - [facility] 2 11:57:20 Urinary tract infectio us disease 52673919 Completed 10/04/2020 Yecenia Ruiz MD [address], [place], [address], [place] [facility] 0 10:33:31 Cardiac catheter ization Completed 03/04/2020 Yecenia Ruiz MD [address], [place], [address], [place] [facility] 0 20:37:34 History of cardiac catheter ization 33887319101 100 Active Kee Escobedo null, [place] - [facility] 1 14:13:12 Chest pain 79025770 Completed 12/13/2021 Yecenia Ruiz MD [address], [place], [address], [place] [facility] 2 11:57:20 Urinary tract infectio us disease 54403209 Active Kee Escobedo null, [place] - [facility] 1 14:13:12 Hyperlip idemia 38292464 Completed 201509/05/2021 Yecenia Ruiz MD [address], [place], [address], [place] [facility] 1 10:10:45 Essentia l hyperten raquel 64183485 Active 2015 Gisselle Mooney null, [place] - [facility] 3 14:33:08 Malignan t neoplasm of thyroid gland 347910692 Active 2015 Gisselle Mooney null, [place] - [facility] 3 14:33:08 Irritabl e bowel syndrome 12386194 Active 2015 Gisselle Mooney [place], [place] - [facility] 3 14:33:07 Hiatal hernia 87151910 Active 2015 Gisselle Mooney null, [place] - [facility] 3 14:33:08 Fibromya lgia 615362198 Active 2015 Gisselle Mooney null[place] - [facility] 3 14:33:08 Arthriti s 7322470 Active 2015 Gisselle Mooney [place] - [facility] 3 14:33:08 Degenera tion of interver tebral disc 28361913 Active 2015 Gisselle Mooney null, [place] - [facility] 3 14:33:08 Osteopor osis 17470992 Completed 201507/20/2017 Removal Reason: she doesn't have it Yecenia Ruiz MD [address], [place], [address], [place] [facility] 7 16:13:45 Long-ter m drug therapy Active 2016 Gisselle Mooney null, [place] - [facility] 3 14:33:08 Gastroes ophageal reflux disease 936653715 Active 2016 Gisselle Mooney [place] - [facility] 3 14:33:08 Type 2 diabetes mellitus 36784223 Active [address] Octavio godfrey, [place] - [facility] 3 14:33:08 Non-alco holic fatty liver 465059641 Active 2016 Gisselle Mooney null[place] - [facility] 3 14:33:08 Allergic conjunct ivitis 019092924 Active 2016 Gisselle Jesica null[place] - [facility] 3 14:33:08 History of polyp of colon 164232971 Active 2016 mom had colon ca Gisselle Mooney [place] - [facility] 3 14:33:08 History of multiple allergie s 436795826 Active 2017 Gisselle Mooney [place] - [facility] 3 14:33:08 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 Procedures Surgical History Date Name Laterality Status Provider Name and Address Organization Details Recorded Time 03/12/20 23 Cardiac Cath completed Yecenia Ruiz MD [address], [place], [address], [place] - [facility] 03/13/2023 20:01:36 11/02/19 21 Cardiac Cath completed Yecenia Ruiz MD [address], [place], [address], [place] [facility] 11/03/2020 07:59:19 10/25/19 21 Date of Last Mammogram completed Yecenia Ruiz MD [address], [place], [address], [place] [facility] 10/26/2020 08:10:46 07/20/20 20 [...] completed Yecenia Ruiz MD [address], [place], [address], [place] [facility] 01/21/2019 22:03:20 12/12/19 18 Cardiac Cath completed Yecenia Ruiz MD [address], [place], [address], [place] [facility] 12/16/2017 20:23:19 07/20/20 17 Most Recent Bone Density completed Yecenia Ruiz MD [address], [place], [address], [place] [facility] 10/04/2020 10:41:42 05/30/20 17 gastric sleeve completed Yecenia Ruiz MD [address], [place], [address], [place] [facility] 07/12/2017 09:24:22 05/15/20 17 Most Recent Mammogram completed Yecenia Ruiz MD [address], [place], [address], [place] [facility] 07/12/2017 09:41:28 08/18/20 16 Date of Last Colonoscopy completed Selma Berry, RN [address], [place], [address], [place] [facility] 08/16/2021 10:07:57 12/10/19 16 thyroidectomy completed Yecenia Ruiz MD [address], [place], [address], [place] [facility] 08/13/2021 13:28:21 Tubal Ligation [...] completed Yecenia Ruiz MD [address], [place], [address], [place] [facility] 07/07/2022 10:45:23 tonsillectomy completed Yecenia Ruiz MD [address], [place], [address], [place] [facility] 08/26/2018 11:27:26 Carpal tunnel surgery completed Diana Yan [place] - [facility] 10/11/2018 15:14:54 Imaging Results None recorded. Procedure Notes None recorded. Medical Equipment None Reported. Allergies Allergen ID Allergen Name Allergen Category Reaction Reaction Severity Criticality Documentation Date Start Date Code Code System Note Provider Name and Address Organization Details Recorded Time 018321 pregabali n medicatio n Not available Not available Not available 01/28/20192016 30254 2 RxNorm Crystal Earlywine null, [place] - [facility] 9 14:29:47 145249 rosuvasta tin medicatio n cough Not available Not available 01/28/20192015 46173 2 RxNorm Crystal Earlywine null, [place] - [facility] 9 14:29:47 771772 pioglitaz one medicatio n Not available Not available Not available 01/28/20192017 65403 RxNorm Crystal Earlywine null, [place] - [facility] 9 14:29:47 808258 codeine medicatio n itching Not available Not available 01/28/20192014 2670 RxNorm Crystal Earlywine null, [place] - [facility] 9 14:29:47 695500 ramires extract food Not available Not available Not available 01/28/20192017 89265 73 RxNorm Crystal Earlywine null, [place] - [facility] 9 14:29:47 34718 Glycine max (substan e) environme nt,food,m edication Not available Not available Not available 07/14/20162011 76887 5007 SNOMED Not Available [facility] 6 10:03:55 63470 green ramires food Not available Not available Not available 07/14/20162011 Not Available [facility] 6 10:03:56 45313 metformin hydrochlo ride medicatio n facial swelling Not available Not available 07/14/20162008 56756 3 RxNorm Not Available [facility] 6 10:03:56 36272 Actos medicatio n rash Not available Not available 07/14/20162012 42026 2 RxNorm Not Available [facility] 6 10:03:56 13933 Product containin g angiotens in-conver ting enzyme inhibitor (product) medicatio n Not available Not available Not available 07/14/20162010 81358 009 SNHATTIE godfrey, [place] - [facility] 6 [...] 50 mcg/actua tion nasal spray,rose marie pension [place] every day by nasal route as directed [...] completed Not Available Not Available Not Available BravoSolution 1 daily 10/11 completed Not Available Not [...] Available Dymista 137 mcg-50 mcg/spray nasal spray [place] 1 spray every day by nasal route [...] Not Available Not Available FreeStyle Milagro 2 Priddy active Not Available Not Available Not Available Vitals Date Recorded Body height Body mass index (BMI) Body weight Body temperature Respiratory rate Heart rate Oxygen saturation Systolic And Diastolic Provider Name and Address Organization Details Last Updated DateTime 3 160.02 cm 38.8 kg/m2 69409.7 3 g 98.6 [degF] 20 /min 58 /min 98 % 148/86 mm[Hg] Chula Bennett [place] - [facility] 3 14:06:15 Date Recorded Body height Body temperature Heart rate Oxygen saturation Respiratory rate Oxygen saturation Heart rate Systolic And Diastolic Systolic And Diastolic Systolic And Diastolic Systolic And Diastolic Provider Name and Address Organization Details Last Updated DateTime 3 160.02 cm 98.7 [degF] 70 /min 93 % 20 /min 97 % 75 /min 150/100 mm[Hg] 150/96 mm[Hg] 140/86 mm[Hg] 140/84 mm[Hg] [facility] 3 16:48:37 Date Recorded Body height Body mass index (BMI) Body weight Body temperature Respiratory rate Heart rate Oxygen saturation Systolic And Diastolic Systolic And Diastolic Provider Name and Address Organization Details Last Updated DateTime 2 160.02 cm 36.3 kg/m2 17277.1 4 g 98.5 [degF] 20 /min 58 /min 98 % 156/100 mm[Hg] 140/58 mm[Hg] [facility] 11:14:51 Date Recorded Body height Heart rate Oxygen saturation Pain severity - 0-10 verbal numeric rating [Score] - Reported Body mass index (BMI) Body weight Body temperature Respiratory rate Systolic And Diastolic Provider Name and Address Organization Details Last Updated DateTime 2 160.02 cm 74 /min 98 % 8 36.5 kg/m2 81960.0 3 g 98.3 [degF] 18 /min 138/84 mm[Hg] Lizzy Washington [facility] 2 14:52:44 Date Recorded Body height Body temperature Heart rate Oxygen saturation Provider Name and Address Organization Details Last Updated DateTime 08/15/2022 160.02 cm 102.6 [degF] 102 /min 93 % [facility] 08/15/2022 13:39:35 Social History Question Answer Notes LastModified by Organizat ion Details LastModified Time Tobacco Smoking Status Never Smoker Tanvi godfrey [facility] 08/04/2016 13:26:20 Able To Swim? Yes Information [...] colitis N Cerebrovascular Disease Y Depression N Guillain-[place] N Sleep Apnea N Aneurysm N Bronchitis [...] 0 completed Yecenia Ruiz MD [address], [place], [address], [place] [facility] 10/05/2020 17:08:59 zoster recombinant 0 completed Yecenia Ruiz MD [address], [place], [address], [place] [facility] 10/05/2020 17:08:59 Influenza, split virus, quadrivalent, preservative 7 completed Not Available [facility] 10/25/2019 03:54:37 influenza, unspecified formulation 4 completed Not Available [facility] 2023 00:26:22 influenza, unspecified formulation 4 completed Not Available [facility] 2023 00:26:22 influenza, unspecified formulation 6 completed Not Available [facility] 2023 00:26:22 pneumococcal polysaccharide PPV23 8 completed Not Available [facility] 10/25/2019 03:54:58 Influenza, split virus, quadrivalent, preservative 9 completed Not Available [facility] 10/25/2019 03:56:15 zoster live 9 completed Not Available [facility] 10/25/2019 03:56:02 Past Encounters Encounter ID Performer Location Encounter Start Date Encounter Closed Date Diagnosis/Indication Diagnosis SNOMED-CT Code Diagnosis ICD10 Code Diagnosis IMO Codes Diagnosis Note [id number] Tristan Chavez DO [address] [place] [address] 08/04/2016 12:29:08 08/04/2016 14:14:14 Chest pain 44277137 R07.9 [id number] Tiffany Houser APR[address] [place] [address] 09/06/2016 10:49:14 09/06/2016 11:28:02 Pain of shoulder region 92568544 M25.512 Neuropathy due to diabetes mellitus 983648355 E11.40 [id number] Tiffany Houser APRN [address] [place] [address] 10/10/2016 09:53:23 10/10/2016 10:37:12 Anxiety 40604281 F41.9 Neuropathy due to diabetes mellitus 846852989 E11.40 Irritable bowel syndrome 57787686 K58.9 Fibromyalgia 759833296 M 79.7 Gastroesop hageal reflux disease 505891703 K21.0 Disease of liver 2233770 03 K76.9 Malignant neoplasm of thyroid gland 569646217 C73 Arthritis 7469538 M19.90 Type 2 arslan betes mellitus 52456391 E11.42 Hyperlipidemia 24377199 E78.5 Essential hypertension 93540882 I10 Osteoporosis 10508444 M8 1.0 Hiatal hernia 66761210 K 44.9 Degenerati on of intervertebral disc 98336997 M51.9 Diabetes mellitus 267572 09 E13.43 [id number] Tiffany Houser APRN [address] [place] [address] 11/07/2016 10:04:43 11/07/2016 10:20:06 Long-term drug therapy 078639527 Z79.899 Irritable bowel syndrome 36055524 K58.9 Fibromyalgia 590210071 M 79.7 Gastroesop hageal reflux disease 752336072 K21.0 Disease of liver 3610462 03 K76.9 Malignant neoplasm of thyroid gland 697150085 C73 Arthritis 9186047 M19.90 Type 2 arslan betes mellitus 37483176 E11.42 Hyperlipidemia 22675760 E78.5 Essential hypertension 70562393 I10 Osteoporosis 89365149 M8 1.0 Degenerati on of intervertebral disc 27314945 M51.9 Hiatal hernia 10029165 K 44.9 [id number] Tiffany Houser APRN [address] [place] [address] 11/28/2016 15:25:45 11/28/2016 15:52:10 Pain of shoulder region 27923775 M25.512 Pain in left arm 5258909 00 M79.716 [id number] Yamilet Kellogg MD [address] [place] [address] 12/11/2016 17:25:32 12/11/2016 18:22:52 Abscess of skin and/or subcutaneous tissue 43712618 L02.91 Carpal king yeimi syndrome 28447999 G56.02 Viral gastroenteritis 11 6527597 A08.4 [id number] Tiffany Houser APRN [address] [place] [address] 01/09/2017 09:41:26 01/09/2017 10:43:41 Long-term drug therapy 850150904 Z79.899 Diabetes mellitus 870358 09 E11.9 [id number] Tiffany Houser APRN [address] [place] [address] 04/12/2017 08:27:32 04/12/2017 09:07:49 Long-term drug therapy 116884330 Z79.899 Vitamin D deficiency 347 25941 E55.9 Allergic conjunctivitis 270288210 H10.13 [id number] Yecenia Ruiz MD [address] [place] [address] 07/12/2017 09:03:02 07/12/2017 10:01:24 Fibromyalgia 260170987 M79.7 Gastroesop hageal reflux disease 025355573 K21.9 Long-term drug therapy 255824730 Z79.899 Type 2 arslan betes mellitus 81665601 E11.42 Osteoporosis 24956477 M8 1.0 Non-alcoho lic fatty liver 260188702 K76.0 Vitamin D deficiency 347 86970 E55.9 Allergic conjunctivitis 592032449 H10.11 Seasonal a llergic rhinitis 540944677 J30.2 History of polyp of colon 991109031 Z86.010 Administra tion of influenza vaccine 08872218 Z23 [id number] Yecenia Ruiz MD [address] [place] [address] 08/17/2017 09:42:21 08/17/2017 10:36:04 Acute sinusitis 19928131 J01.90 Lesion of nasal mucosa 682908194 J34.89 [id number] Yecenia Ruiz MD [address] [place] [address] 10/05/2017 10:12:47 10/05/2017 11:12:05 Gastroesophageal reflux disease 434315500 K21.9 Hematochezia 709744378 K 62.5 [id number] Yecenia Ruiz MD [address] [place] [address] 01/03/2018 09:54:48 01/03/2018 10:34:05 Type 2 diabetes mellitus 53314929 E11.42 Hyperlipidemia 77946235 E78.5 Essential hypertension 10637343 I10 Gastroesop hageal reflux disease 523454990 K21.9 Fibromyalgia 795774410 M 79.7 Administra tion of pneumococcal vaccine 50775757 Z23 [id number] Mark Tavera APRN [address] [place] [address] 01/11/2018 10:11:53 01/11/2018 10:44:57 Acute frontal sinusitis 25797484 J01.10 Acute conjunctivitis 537 48278 H10.12 Lesion of nasal mucosa 644304094 J34.89 Patient has muciprocin 2% she is currently using for this, prescribed per Dr. Ruiz. [id number] Mark Tavera APRN [address] [place] [address] 01/24/2018 10:35:42 01/24/2018 11:34:53 Bacterial conjunctivitis 915099952 H10.9 Multiple environmental allergies 974942854 T78.49XS Multiple allergies [id number] Yecenia Ruiz MD [address] [place] [address] 04/05/2018 09:44:00 04/05/2018 10:23:44 Fibromyalgia 993461788 M79.7 Gastroesop hageal reflux disease 366825362 K21.9 Type 2 arslan betes mellitus 64328489 E11.42 Hyperlipidemia 24546752 E78.5 Essential hypertension 87217891 I10 Arthritis 2714633 M19.90 Body mass index 30+ - obesity 497849249 Z68.36 Active or passive immunization 234815977 Z23 Screening mammography 24 888639 Z12.31 History of multiple allergies 765682959 Z91.09 [id number] Yecenia Ruiz MD [address] [place] [address] 08/26/2018 10:52:28 08/26/2018 11:29:28 Acute pharyngitis 534587437 J02.9 Candidiasis of vagina 72 070577 B37.3 [id number] Pedro Tony MD [address] [place] [address] 10/11/2018 14:50:12 10/11/2018 16:00:13 Pain of left hip joint 2229303957 37682 M25.552 Body mass index 30+ - obesity 695647441 Z68.34 [id number] Yecenia Ruiz MD [address] [place] [address] 08/28/2019 15:28:32 08/28/2019 16:42:10 Fibromyalgia 003687309 M79.7 Irritable bowel syndrome 17558068 K58.9 Gastroesop hageal reflux disease 318329727 K21.9 Long-term drug therapy 103404575 Z79.899 Arthritis 0091548 M19.90 Type 2 arslan betes mellitus 70322486 E11.42 cont care per Endo Hyperlipidemia 82464723 E78.5 Essential hypertension 46989359 I10 Degenerati on of intervertebral disc 15637592 M51.9 Body mass index 30+ - obesity 779614170 Z68.35 Administra tion of influenza vaccine 72802361 Z23 Active or passive immunization 953242959 Z23 Pain in left foot 329291 4823 62416 M79.384 [id number] Yecenia Ruiz MD [address] [place] [address] 09/09/2019 16:29:11 09/09/2019 18:09:39 Active or passive immunization 667261515 Z23 [id number] Maranda Stock [facility] [address] [place] [address] 11/05/2019 12:01:08 11/05/2019 12:36:49 Pain in throat 795554980 R07.0 Cough 22305049 R05 Upper resp iratory infection 33017632 J06.9 [id number] Yecenia Ruiz MD [address] [place] [address] 01/29/2020 14:22:39 01/29/2020 15:41:52 Closed fracture of rib 28003594 S22.39XA Liver marcello r laceration with open wound into cavity 818274034 S36.114A Fracture o f transverse process of lumbar vertebra 421370491 S32.009A Adrenal gl and hematoma 678973813 E27.49 Fractured nasal bones 26 0378332 S02.2XXA Traumatic intracranial subdural hematoma with brief loss of consciousness 245401873 S06.5X9A Mallet finger 17041009 M 20.011 5th [id number] Yecenia Ruiz MD [address] [place] [address] 03/05/2020 09:41:29 03/05/2020 10:39:44 Increased liver function 88654832 R94.5 Liver enzy mes level above reference range 595424044 R74.8 Closed fra cture of rib 68902513 S22.39XA Liver marcello r laceration with open wound into cavity 579120756 S36.114A Fracture o f transverse process of lumbar vertebra 462473380 S32.009A Adrenal gl and hematoma 462308334 E27.49 Traumatic intracranial subdural hematoma with brief loss of consciousness 176459352 S06.5X9A Mallet finger 21585086 M 20.011 wear brace as much as she can - I bent the brace so the joint would be more in extension [id number] Yecenia Ruiz MD [address] [place] [address] 03/26/2020 09:20:01 03/26/2020 10:20:34 Closed fracture of rib 75144408 S22.39XA Liver marcello r laceration with open wound into cavity 922513913 S36.114A Fracture o f transverse process of lumbar vertebra 393000712 S32.009A Adrenal gl and hematoma 890143893 E27.49 Traumatic intracranial subdural hematoma with brief loss of consciousness 852595362 S06.5X9A Mallet finger 33734702 M 20.011 wear brace as much as she can - I bent the brace so the joint would be more in extension Muscle pain 12662898 M79 .10 Screening mammography 24 808265 Z12.31 New daily persistent headache 4217648495 50807 G44.52 [id number] Tete Cox MD [address] [place] [address] 07/13/2020 11:58:21 07/13/2020 12:48:45 Right flank pain 151817633 R10.9 UA in office is unremarkab le. Hx of kidney stones. I recommende d that she should go to the hospital emergency department (ER) right now for further evaluation and management . I offered transfer to ER via ambulance but patient declined that. Follow up with us after hospital discharge. Patient agrees with the above plan. Chronic back pain 560955 002 M54.9 Get XRS of L and T spines. Follow up with PCP Dr. Ruiz Numbness 41051037 R20.0 See above under headache - Headache 05134675 R51.9 Intermitte nt headaches and numbness over forehead and left side of face since trauma on 01.19.20. No known allergies to contrast or dye. Will get MRI of brain. Follow up with us in 1 to 2 days after MRI to discuss test results [id number] Yecenia Ruiz MD [address] [place] [address] 07/20/2020 16:00:12 07/20/2020 16:54:41 Fibromyalgia 527506109 M79.7 [id number] Yecenia Ruiz MD [address] [place] [address] 10/05/2020 09:50:02 10/05/2020 13:01:23 Arthritis 7540386 M19.90 Coronary arteriosclerosis 08495270 I25.10 Degenerati on of intervertebral disc 12749868 M51.9 Essential hypertension 64727708 I10 Fibromyalgia 405494532 M 79.7 Gastroesop hageal reflux disease 220178637 K21.9 Hyperlipidemia 23115523 E78.5 Malignant neoplasm of thyroid gland 036946012 C73 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 808298930 E11.3299 Mixed hyperlipidemia 267 422767 E78.2 Non-alcoho lic fatty liver 111041266 K76.0 Type 2 arslan betes mellitus 54577792 E11.42 cont care per Endo Screening mammography 24 488034 Z12.31 she has appt in Oct, 2020 Administra tion of influenza vaccine 42750513 Z23 Pain in bi lateral feet 6157753031 6127217 M79.672 Myalgia/my ositis - multiple 202909134 M79.10 Active or passive immunization 778102478 Z23 Vaccination needed 68362 98014 37538 Z23 [id number] Yecenia Ruiz MD [address] [place] [address] 08/16/2021 08:25:57 08/16/2021 09:14:41 Coronary arteriosclerosis 73824748 I25.10 following with cardiology Essential hypertension 58246795 I10 controlled on meds Fibromyalgia 962987218 M 79.7 stable, doing well on meds Gastroesop hageal reflux disease 492994176 K21.9 controll on PPI Hyperlipidemia 04271789 E78.5 Malignant neoplasm of thyroid gland 847251199 C73 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 632151982 E11.3299 Mixed hyperlipidemia 267 634159 E78.2 on Praluent Non-alcoho lic fatty liver 696364462 K76.0 follows with Endo Type 2 arslan betes mellitus 48204182 E11.42 cont care per Endo Administra tion of influenza vaccine 13280277 Z23 Allergic conjunctivitis 021840749 H10.11 Low back pain 954834442 M54.50 Migraine 81369752 G43.90 9 Dysuria 56746687 R30.9 [id number] Yecenia Ruiz MD [address] [place] [address] 12/13/2021 13:39:18 12/13/2021 15:02:27 Chronic daily headache 6806028029 63441 R51.9 Migraine without aura 56 328191 G43.039 [id number] Yecenia Ruiz MD [address] [place] [address] 03/28/2022 10:45:40 03/28/2022 11:37:09 Acute sinusitis 38107996 J01.90 [id number] Yecenia Ruiz MD [address] [place] [address] 07/07/2022 10:02:30 07/07/2022 11:27:41 New daily persistent headache 0515593781 85308 G44.52 Vertigo 879861900 R42 [id number] Pedro Tony MD [address] [place] [address] 07/26/2022 14:25:54 07/26/2022 14:58:30 Suspected COVID-19 355565252 Z20.822 Influenza- like symptoms 638943633 R68.89 Lymphadenitis 65726372 I 88.9 Body mass index 30+ - obesity 141711868 Z68.36 [id number] Yecenia Ruiz MD [address] [place] [address] 08/15/2022 12:28:43 08/15/2022 15:49:42 Influenza-like symptoms 394139397 R68.89 [id number] Yecenia Ruiz MD [address] [place] [address] 10/26/2022 13:48:18 10/26/2022 14:40:55 Coronary arteriosclerosis 73313233 I25.10 following with cardiology Essential hypertension 32469187 I10 controlled on meds Fibromyalgia 802622263 M 79.7 stable, doing well on meds Gastroesop hageal reflux disease 619334625 K21.9 controlled on PPI Malignant neoplasm of thyroid gland 520129772 C73 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 849109270 E11.3299 Mixed hyperlipidemia 267 262400 E78.2 on Praluent Non-alcoho lic fatty liver 940637975 K76.0 follows with Endo Type 2 arslan betes mellitus 92918623 E11.42 cont care per Endo Migraine 11922308 G43.90 9 meds are helping Acute low back pain 2788 00055 M54.50 [address] acic back pain 102362543 M54.6 as above [id number] Yecenia Ruiz MD [address] [place] [address] 11/13/2022 15:09:28 11/13/2022 17:50:38 Coronary arteriosclerosis 73568587 I25.10 following with cardiology Essential hypertension 01302912 I10 controlled on meds Fibromyalgia 358106733 M 79.7 stable, doing well on meds Gastroesop hageal reflux disease 472621183 K21.9 controlled on PPI Mixed hyperlipidemia 267 398354 E78.2 on Praluent Non-alcoho lic fatty liver 889833891 K76.0 follows with Endo Type 2 arslan betes mellitus 42201800 E11.42 cont care per Endo Migraine 51077260 G43.90 9 meds are helping Dizziness 583626411 R42 Health Concerns Section Related Observation LastModified by Organization Detai ls LastModified Time None Recorded Concern Status LastModified by Organization Details LastModified Time None Recorded Advance Directives Directive N: Payers Insurance Date Sequence Insurance Name Policy Number Policy Jacobsen Covered Member ID Jacobsen Member ID Guarantor Name 08/16/2021 1 [place] Angeles Machado [id number] Angeles Machado 10/26/2022 1 [place]/A DVANTAGE - HMO) [id number] Angeles Machado [id number] Angeles Machado 08/16/2021 [place] [employer] B[employer] Angeles Machado 08/16/2021 1 [place] Angeles Machado [id number] Angeles Machado 11/13/2022 2 MEDICAID-[facility] CHOICES - FFS/TRADITION AL Angeles Machado [id number] Angeles Machado 08/16/2021 [employer] [place] C-[place] ([place]ICARE) Angeles Machado [id number] Angeles Machado 11/03/2022 1 [employer] - CHOICECARE (PPO) Angeles Machado [id number] Angeles Machado 11/13/2022 1 [employer] (MEDICARE REPLACEMENT/A DVANTAGE - PPO) Angeles Machado [id number] Angeles Machado Notes Date Note Type Note [...] made CURRY's worse Yecenia Ruiz MD [address], [place], [address], [facility] 07/07/2022 11:26:50 07/26/2022 text/html C/O ST, head congestion, swollen cervical glands 4 days. Gets every year and needs abt. Pedro Tony MD [address], [place], [address], [facility] 07/26/2022 15:02:19 08/15/2022 text/html she has had 2 days of fever, chills, body aches, cough, congestion and SOB hurts all over. decreased appetite but drinking Yecenia Ruiz MD [address], [place], [address], [facility] 08/15/2022 15:43:10 10/26/2022 text/html here with back pain x 2 weeks. no known injury. 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 she tested and was 85 Yecenia Ruiz MD [address], [place], [address], [facility] - [facility] 10/26/2022 18:57:40 11/13/2022 text/html seen 2 weeks ago with back pain. she was treated and referred to PT now has dizziness and a CURRY and hip pain. her head started feeling bad earlier today.. she went to [employer] to eat and felt worse so came here. her vision is fuzzy B [facility] also having mid back pain and while she was here she felt that her L arm was jerking. L sided CP that she felt with deep breaths. her heart is racing reviewed recent labs she did per Endo recently she hasn't been seen for a routine care visit since Aug, she has been seeing windlace machine operator and the nasal sprays are helping follows with Dr Taylor for DM. her A1c 8.9% Yecenia Ruiz MD [address], [place], [address], [place] - [facility] 11/13/2022 19:02:26 OBGyn Episode No OBEpisode recorded.
--- OUTSIDE RECORDS SUMMARY | 2025-09-02 08:37 | XMS_ITS | Clinical Summary ---
Author Organization [facility] Address [address] [place] [address] Care Team Providers Care Hydroponics Grower Name Role Phone Tiffany Mayen Peng Primary Care Provider [phone] Source Comments This information has been disclosed [...] therelease of HIV test results or diagnoses. [id number] Allergies No known active allergies Immunizations [...] of Treatment Not on file Insurance MEDICAID [place] Care Teams Hydroponics Grower Relationship Specialty Start Date End Date Tiffany Mayen 1 [facility] [address] [place] [address] PCP - General 07/12/16
--- NOTE | 2025-09-02 08:53 | PC.NURSE ---
0840-Pt arrived for picc placement and iv vanc dose. Contacted staff that will consult for picc line placement, notified of pt arrival. Staff currently in meeting and will see pt post. Explained poc to pt, pt given water to drink while waiting.
[2025-09-02 09:00] VITALS: BMI 32.2
--- NOTE | 2025-09-02 09:26 | PC.NURSE ---
Staff consulted to insert picc was called to another dept-some delay expected. Explained situation to the pt and family.
[2025-09-02] MEDS: VANCOMYCIN/WATER FOR INJ (PEG) 1.5 GM/300 ML PIGGYBACK IV (11:30)
[2025-09-02 11:32] VITALS: BP 147/82; PULSE 78; RESP 18; TEMP 36.6; O2SAT 100
[2025-09-02] MEDS: SODIUM CHLORIDE 0.9% 10ML FLUSH SYRINGE 10 ML IV (11:32)
[2025-09-02 12:30] VITALS: BP 141/76; PULSE 80; RESP 18; O2SAT 99
[2025-09-02 13:50] VITALS: BP 142/84; PULSE 68; RESP 18; O2SAT 99
== END 2025-09-02 23:59 | disposition home or self-care (01) ==
LOC: INF 08:35
PROVIDERS: PCP Nurse Practitioner Family; Visit Provider Nurse Practitioner Family
DX: Z22.322 Carrier or suspected carrier of Methicillin resistant Staphylococcus aureus (principal)
CPT/HCPCS: 36410; 96365; 96366; C1751; J3375

== ENCOUNTER 2025-09-12 00:30 | Observation (INO) | payer MEDICARE, MEDICAID, SELFPAY ==
--- OUTSIDE RECORDS SUMMARY | 2025-09-12 00:38 | XMS_ITS | Data Portability ---
Author Organization [facility] Address [address] [place] [address] Care Team Providers Care Manager Clinic Name Role Phone ANEUDY KRISHNAN Referring Provider BINH HOOPER Referring Provider [phone] REE HARRIS Referring Provider Unavailable Consumer Services Advisor Assessment Encounter Date Assessment Date Assessment LastModified by Organization Details LastModified Time 11/13/2022 11/13/2022 NTG 0.4 mg SL given at 1619 45 mins spent one-on-one with pt nguttman Not available 11/13/2022 19:02:16 Plan of Treatment Reminders Order Date Submit Date Provider Last Modified By Organization Details Last Modified Time Details Appointments None recorded. Lab glucose, fingerstic k, blood [address] , [place], [address], 3 19:02:18 rapid SARS CoV + SARS CoV 2 Ag, QL IA, respirator y specimen [address] , [place], [address], 3 19:02:18 urinalysis , dipstick [address] , [place], [address], 3 18:19:28 microalbum in/creatin ine, mass ratio, urine 2022 023 [facility], [address] [place] [address] , [place], [address], 3 18:19:28 rapid flu (A+B) 2021 022 [facility], [address] [place] [address] , [place], [address], 2 14:19:33 rapid SARS CoV + SARS CoV 2 Ag, QL IA, respirator y specimen 2021 022 [facility], [address] [place] [address] , [place], [address], 2 14:19:33 rapid flu (A+B) 2021 022 [facility], [address] [place] [address] , [place], [address], 2 15:01:08 rapid SARS CoV + SARS CoV 2 Ag, QL IA, respirator y specimen 2021 022 [facility], [address] [place] [address] , [place], [address], 2 15:01:08 BMP, serum or plasma 2021 DIANELYS [facility], [address], [facility], [place], [address], 2 09:11:37 ESR (erythrocy te sedimentat ion rate), blood 2021 DIANELYS [facility], [address], [address], [place], [address], 09:11:38 CBC w/ auto diff 2021 DIANELYS [facility], [address], [address], [place], [address], 09:11:36 magnesium, serum or plasma 2021 DIANELYS [facility], [address], [place] [address], [place], [address], 09:11:38 TSH, ultra-sens itive, serum 2021 DIANELYS [facility], [address], [place] [address], [place], [address], 09:11:37 C reactive protein, QN, serum or plasma 2021 DIANELYS [facility], [address], [place] [address], [place], [address], 09:11:39 Referral physical therapist referral 2022 023 yue [facility], [address] [place] [address], [address], 3 14:26:34 Procedures None recorded. Surgeries None recorded. Imaging None recorded. Medication Orders tizanidine 4 mg tablet [address], [address], 3 16:33:15 prednisone 20 mg tablet [address], [address], 3 16:33:15 sumatripta n 100 mg tablet 2022 [address], [address], 3 16:33:15 Tamiflu 75 mg capsule [address], [address], 3 14:04:35 cephalexin 500 mg capsule [address], [address], 3 14:04:11 meclizine 12.5 mg tablet 2021 [address], [address], 2 11:24:52 Patient TargetsNo targets recorded. Patient Instructions Encounter Date Encounter Id Patient Instructions Last Modified By Organization Details Last Modified Time 07/07/2022 [id number] rest over the weekend and stay well hydrated. food only as tolerated. will see if med helps with dizziness and nausea - warned of drowsiness. will talk to her when the labs are back. seek emergent care if her symptoms acutely worsen, or are concerning - eg. one-sided weakness/numbness , vision loss, etc nguttman Not available 07/07/2022 11:26:22 07/26/2022 [id number] body mass index: care instructions tgrosser Not available 07/26/2022 15:01:08 learning about healthy weight tgrosser Not available 07/26/2022 15:01:08 08/15/2022 [id number] Rest and fluids OTC's to use reviewed. [...] concerns nguttman Not available 08/15/2022 15:42:47 10/26/2022 [id number] warned that taking steroids will probably raise her blood sugar. close f/u with Dr Cunningham. if her symptoms worsen at any time, joe if she has perineal numbness, bowel/bladder incontinence, either call me or go to the ER nguttman Not available 10/26/2022 14:42:55 11/13/2022 [id number] her BS is ok. he r BP [...] x10e3 /uL 3.4-10 .8 Not Available [facility] ([facility]) [address] [place], [address], 07/08/2022 09:11:36 07/07/20 22 07/08/2022 CBC WITH DIFFE RENTI AL/PL ATELE T RBC 4.68 x10e6 /uL 3.77-5 .28 Not Available [facility] ([facility]) [address] [place], [address], 07/08/2022 09:11:36 07/07/20 22 07/08/2022 CBC WITH DIFFE RENTI AL/PL ATELE T hemoglobin 13.3 g/dL 11.1-1 5.9 Not Available [facility] ([facility]) [address] [place], [address], 07/08/2022 09:11:36 07/07/20 22 07/08/2022 CBC WITH DIFFE RENTI AL/PL ATELE T hematocrit 40.6 % 34.0-4 6.6 Not Available [facility] ([facility]) [address] [facility], [place], [address], 07/08/2022 09:11:36 07/07/20 22 07/08/2022 CBC WITH DIFFE RENTI AL/PL ATELE T MCV 87 fL 79-97 Not Available [facility] ([facility]) [address] [facility], [place], [address], 07/08/2022 09:11:36 07/07/20 22 07/08/2022 CBC WITH DIFFE RENTI AL/PL ATELE T MCH 28.4 pg 26.6-3 3.0 Not Available [facility] ([facility]) [address] [facility], [place], [address], 07/08/2022 09:11:36 07/07/20 22 07/08/2022 CBC WITH DIFFE RENTI AL/PL ATELE T MCHC 32.8 g/dL 31.5-3 5.7 Not Available [facility] ([facility]) [address] [place], [address], 07/08/2022 09:11:36 07/07/20 22 07/08/2022 CBC WITH DIFFE RENTI AL/PL ATELE T RDW 13.2 % 11.7-1 5.4 Not Available [facility] ([facility]) [address] [place], [address], 07/08/2022 09:11:36 07/07/20 22 07/08/2022 CBC WITH DIFFE RENTI AL/PL ATELE T platelets 156 x10e3 /uL 150-45 0 Not Available [facility] ([facility]) [address] [place], [address], 07/08/2022 09:11:36 07/07/20 22 07/08/2022 CBC WITH DIFFE RENTI AL/PL ATELE T neutrophils 47 % not estab. Not Available [facility] ([facility]) [address] [facility], [place], [address], 07/08/2022 09:11:36 07/07/20 22 07/08/2022 CBC WITH DIFFE RENTI AL/PL ATELE T lymphs 41 % not estab. Not Available [facility] ([facility]) [address] [facility], [place], [address], 07/08/2022 09:11:36 07/07/20 22 07/08/2022 CBC WITH DIFFE RENTI AL/PL ATELE T monocytes 9 % not estab. Not Available [facility] ([facility]) [address] [facility], [place], [address], 07/08/2022 09:11:36 07/07/20 22 07/08/2022 CBC WITH DIFFE RENTI AL/PL ATELE T eos 1 % not estab. Not Available [facility] ([facility]) [address] [facility], [place], [address], 07/08/2022 09:11:36 07/07/20 22 07/08/2022 CBC WITH DIFFE RENTI AL/PL ATELE T basos 1 % not estab. Not Available [facility] ([facility]) [address] [facility], [place], [address], 07/08/2022 09:11:36 07/07/20 22 07/08/2022 CBC WITH DIFFE RENTI AL/PL ATELE T immature cells BLOCKER POLISHING Not Available [facility] ([facility]) [address] [facility], [place], [address], 07/08/2022 09:11:36 07/07/20 22 07/08/2022 CBC WITH DIFFE RENTI AL/PL ATELE T neutrophils (absolute) 2.6 x10e3 /uL 1.4-7. 0 Not Available [facility] ([facility]) [address] [facility], [place], [address], 07/08/2022 09:11:36 07/07/20 22 07/08/2022 CBC WITH DIFFE RENTI AL/PL ATELE T lymphs (absolute) 2.2 x10e3 /uL 0.7-3. 1 Not Available [facility] ([facility]) [address] [facility], [place], [address], 07/08/2022 09:11:36 07/07/20 22 07/08/2022 CBC WITH DIFFE RENTI AL/PL ATELE T monocytes(ab solute) 0.5 x10e3 /uL 0.1-0. 9 Not Available [facility] ([facility]) [address] [facility], [place], [address], 07/08/2022 09:11:36 07/07/20 22 07/08/2022 CBC WITH DIFFE RENTI AL/PL ATELE T eos (absolute) 0.1 x10e3 /uL 0.0-0. 4 Not Available [facility] ([facility]) [address] [facility], [place], [address], 07/08/2022 09:11:36 07/07/20 22 07/08/2022 CBC WITH DIFFE RENTI AL/PL ATELE T baso (absolute) 0.0 x10e3 /uL 0.0-0. 2 Not Available [facility] ([facility]) [address] [facility], [place], [address], 07/08/2022 09:11:36 07/07/20 22 07/08/2022 CBC WITH DIFFE RENTI AL/PL ATELE T immature granulocytes 1 % not estab. Not Available [facility] ([facility]) [address] [facility], [place], [address], 07/08/2022 09:11:36 07/07/20 22 07/08/2022 CBC WITH DIFFE RENTI AL/PL ATELE T immature grans (abs) 0.1 x10e3 /uL 0.0-0. 1 Not Available [facility] ([facility]) [address] [facility], [place], [address], 07/08/2022 09:11:36 07/07/20 22 07/08/2022 CBC WITH DIFFE RENTI AL/PL ATELE T NRBC BLOCKER POLISHING Not Available [facility] ([facility]) [address] [facility], [place], [address], 07/08/2022 09:11:36 07/07/20 22 07/08/2022 CBC WITH DIFFE RENTI AL/PL ATELE T hematology comments: BLOCKER POLISHING Not Available [facility] ([facility]) [address] [facility], [place], [address], 07/08/2022 09:11:36 07/07/20 22 07/08/2022 BASIC METAB OLIC PANEL (8) glucose 141 mg/dL 70-99 above high normal Ple ase note refer ence inter maxine cheney e Not Available [facility] ([facility]) [address] [facility], [place], [address], 07/08/2022 09:11:36 07/07/20 22 07/08/2022 BASIC METAB OLIC PANEL (8) BUN 15 mg/dL 8-27 Not Available [facility] ([facility]) [address] [facility], [place], [address], 07/08/2022 09:11:36 07/07/20 22 07/08/2022 BASIC METAB OLIC PANEL (8) creatinine 0.66 mg/dL 0.57-1 .00 Not Available [facility] ([facility]) [address] [facility], [place], [address], 07/08/2022 09:11:36 07/07/20 22 07/08/2022 BASIC METAB OLIC PANEL (8) eGFR 100 mL/mi n/1.7 3 >59 Not Available [facility] ([facility]) [address] [place], [address], 07/08/2022 09:11:36 07/07/20 22 07/08/2022 BASIC METAB OLIC PANEL (8) BUN/creatini ne ratio 23 12-28 Not Available [facility] ([facility]) [address] [facility], [address], 07/08/2022 09:11:36 07/07/20 22 07/08/2022 BASIC METAB OLIC PANEL (8) sodium 143 mmol/ L 134-14 4 Not Available [facility] ([facility]) [address] [place], [address], 07/08/2022 09:11:36 07/07/20 22 07/08/2022 BASIC METAB OLIC PANEL (8) potassium 4.2 mmol/ L 3.5-5. 2 Not Available [facility] ([facility]) [address] [place], [address], 07/08/2022 09:11:36 07/07/20 22 07/08/2022 BASIC METAB OLIC PANEL (8) chloride 103 mmol/ L 96-106 Not Available [facility] ([facility]) [address] [place], [address], 07/08/2022 09:11:36 07/07/20 22 07/08/2022 BASIC METAB OLIC PANEL (8) carbon dioxide, total 24 mmol/ L 20-29 Not Available [facility] ([facility]) [address] [place], [address], 07/08/2022 09:11:36 07/07/20 22 07/08/2022 BASIC METAB OLIC PANEL (8) calcium 8.6 mg/dL 8.7-10 .3 below low normal Not Available [facility] ([facility]) [address] [place], [address], 07/08/2022 09:11:36 07/07/20 22 07/08/2022 TSH RFX ON ABNOR MAL TO FREE T4 TSH 0.016 uIU/m L 0.450- 4.500 below low normal Not Available [facility] ([facility]) [address] [facility], [address], 07/08/2022 09:11:37 07/07/20 22 07/08/2022 TSH RFX ON ABNOR MAL TO FREE T4 T4,free (direct) 2.04 NG/dL 0.82-1 .77 above high normal Not Available [facility] ([facility]) [address] [place], [address], 07/08/2022 09:11:37 07/07/20 22 07/08/2022 SEDIM ENTAT ION RATE- WESTE RGREN sedimentatio n rate-westerg nader 29 mm/HR 0-40 Not Available [facility] ([facility]) [address] [place], [address], 07/08/2022 09:11:38 07/07/20 22 07/08/2022 MAGNE SIUM magnesium 1.9 mg/dL 1.6-2. 3 Not Available [facility] ([facility]) [address] [place], [address], 07/08/2022 09:11:38 07/07/20 22 07/08/2022 C-ANGELY CTIVE PROTE IN, QUANT C-reactive protein, quant 4 mg/L 0-10 Not Available [facility] ([facility]) [address] [place], [address], 07/08/2022 09:11:39 07/26/20 22 07/26/2022 rapid SARS CoV + SARS CoV 2 Ag, QL IA, respi rator y speci men SARS CoV antigen Negati ve Not Available [address] [place], [address], 07/26/2022 14:33:35 07/26/20 22 07/26/2022 rapid flu (A+B) Flu negati ve Not Available [address] , [place], [address], 07/26/2022 14:34:18 07/26/20 22 07/26/2022 rapid flu (A+B) Type Both A & B Not Available [address] , [place], [address], 07/26/2022 14:34:18 08/15/20 22 08/15/2022 rapid SARS CoV + SARS CoV 2 Ag, QL IA, respi rator y speci men SARS CoV antigen Negati ve Not Available [address] , [place], [address], 08/15/2022 13:39:15 08/15/20 22 08/15/2022 rapid flu (A+B) Flu negati ve Not Available [address] , [place], [address], 08/15/2022 13:39:04 10/26/19 23 10/26/2022 micro album in/cr eatin ine, mass ratio , urine Microalbumin 10 Not Available [facility] mirta [address] , [place], [address], 10/26/2022 08:33:54 10/26/19 23 10/26/2022 micro album in/cr eatin ine, mass ratio , urine Creatinine 200 Not Available [facility] [address] , [place], [address], 10/26/2022 08:33:54 10/26/19 23 10/26/2022 micro album in/cr eatin ine, mass ratio , urine Ratio <30 Not Available [address] , [place], [address], 10/26/2022 08:33:54 10/26/19 23 10/26/2022 urina lysis , dipst ick Leukocytes Trace Not Available [address] , [place], [address], 10/26/2022 14:11:33 10/26/19 23 10/26/2022 urina lysis , dipst ick Nitrite negati ve Not Available [address] , [place], [address], 10/26/2022 14:11:33 10/26/19 23 10/26/2022 urina lysis , dipst ick Urobilinogen .2 Not Available [address] , [place], [address], 10/26/2022 14:11:33 10/26/19 23 10/26/2022 urina lysis , dipst ick Protein Negati ve Not Available [address] , [place], [address], 10/26/2022 14:11:33 10/26/19 23 10/26/2022 urina lysis , dipst ick pH 6.5 Not Available [address] , [place], [address], 10/26/2022 14:11:33 10/26/19 23 10/26/2022 urina lysis , dipst ick Blood Negati ve Not Available [address] , [place], [address], 10/26/2022 14:11:33 10/26/19 23 10/26/2022 urina lysis , dipst ick Specific [place] 1.030 Not Available [address] , [place], [address], 10/26/2022 14:11:33 10/26/19 23 10/26/2022 urina lysis , dipst ick Ketone Negati ve Not Available [address] , [place], [address], 10/26/2022 14:11:33 10/26/19 23 10/26/2022 urina lysis , dipst ick Bilirubin Negati ve Not Available [address] , [place], [address], 10/26/2022 14:11:33 10/26/19 23 10/26/2022 urina lysis , dipst ick Glucose Negati ve Not Available [address] , [place], [address], 10/26/2022 14:11:33 10/26/19 23 10/26/2022 urina lysis , dipst ick Appearance Clear Not Available [address] , [place], [address], 10/26/2022 14:11:33 10/26/19 23 10/26/2022 urina lysis , dipst ick Color Yellow Not Available [address] , [place], [address], 10/26/2022 14:11:33 11/13/19 23 11/13/2022 rapid SARS CoV + SARS CoV 2 Ag, QL IA, respi rator y speci men SARS CoV antigen Negati ve Not Available [address] , [place], [address], 11/13/2022 15:53:16 11/13/19 23 11/13/2022 gluco brandy mcclain, blood Blood Glucose: mg/dl 169 Not Available [address] , [place], [address], 11/13/2022 15:53:03 03/20/20 23 03/20/2023 hospi lacey labs A1C 9.3 Not Available [facility] [address] [facility] , [place], [address], 03/20/2023 17:39:50 Result Notes None recorded. Problems Name Problem SNOMED Code Status Onset Date Resolution Date Notes Provider Name and Address Organization Details Recorded Time Chest pain 39319287 Completed 10/04/2020 Yecenia Ruiz MD [address], [place], [address], [place] - [facility] 2 11:57:20 Urinary tract infectio us disease 98389549 Completed 10/04/2020 Yecenia Ruiz MD [address], [place], [address], [place] [facility] 0 10:33:31 Cardiac catheter ization Completed 03/04/2020 Yecenia Ruiz MD [address], [place], [address], [place] [facility] 0 20:37:34 History of cardiac catheter ization 02112050746 100 Active Kee Escobedo null, [place] - [facility] 1 14:13:12 Chest pain 83784171 Completed 12/13/2021 Yecenia Ruiz MD [address], [place], [address], [place] [facility] 2 11:57:20 Urinary tract infectio us disease 68566327 Active Kee Escobedo null, [place] - [facility] 1 14:13:12 Hyperlip idemia 42315683 Completed 201509/05/2021 Yecenia Ruiz MD [address], [place], [address], [place] [facility] 1 10:10:45 Essentia l hyperten raquel 43759998 Active 2015 Gisselle Mooney null, [place] - [facility] 3 14:33:08 Malignan t neoplasm of thyroid gland 299203710 Active 2015 Gisselle Mooney null, [place] - [facility] 3 14:33:08 Irritabl e bowel syndrome 19300237 Active 2015 Gisselle Mooney null, [place] - [facility] 3 14:33:07 Hiatal hernia 39325279 Active 2015 Gisselle Mooney null, [place] - [facility] 3 14:33:08 Fibromya lgia 054283444 Active 2015 Gisselle Mooney null, [place] - [facility] 3 14:33:08 Arthriti s 9574574 Active 2015 Gisselle Mooney null, [place] - [facility] 3 14:33:08 Degenera tion of interver tebral disc 71857621 Active 2015 Gisselle Mooney null, [place] - [facility] 3 14:33:08 Osteopor osis 08425975 Completed 201507/20/2017 Removal Reason: she doesn't have it Yecenia Ruiz MD [address], [place], [address], [place] [facility] 7 16:13:45 Long-ter m drug therapy Active 2016 Gisselle Mooney null, [place] - [facility] 3 14:33:08 Gastroes ophageal reflux disease 440277701 Active 2016 Gisselle Mooney null, [place] - [facility] 3 14:33:08 Type 2 diabetes mellitus 70011796 Active [address] Octavio godfrey, [place] - [facility] 3 14:33:08 Non-alco holic fatty liver 338919609 Active 2016 Gisselle Mooney null, [place] - [facility] 3 14:33:08 Allergic conjunct ivitis 800180894 Active 2016 Gisselle Jesica null, [place] - [facility] 3 14:33:08 History of polyp of colon 701598072 Active 2016 mom had colon ca Gisselle Mooney null[place] - [facility] 3 14:33:08 History of multiple allergie s 433184862 Active 2017 Gisselle Mooney null[place] - [facility] 3 14:33:08 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 Procedures Surgical History Date Name Laterality Status Provider Name and Address Organization Details Recorded Time 03/12/20 23 Cardiac Cath completed Yecenia Ruiz MD [address], [place], [address], [place] - [facility] 03/13/2023 20:01:36 11/02/19 21 Cardiac Cath completed Yecenia Ruiz MD [address], [place], [address], [place] [facility] 11/03/2020 07:59:19 10/25/19 21 Date of Last Mammogram completed Yecenia Ruiz MD [address], [place], [address], [place] [facility] 10/26/2020 08:10:46 07/20/20 20 [...] completed Yecenia Ruiz MD [address], [place], [address], [place] [facility] 01/21/2019 22:03:20 12/12/19 18 Cardiac Cath completed Yecenia Ruiz MD [address], [place], [address], [place] [facility] 12/16/2017 20:23:19 07/20/20 17 Most Recent Bone Density completed Yecenia Ruiz MD [address], [place], [address], [place] [facility] 10/04/2020 10:41:42 05/30/20 17 gastric sleeve completed Yecenia Ruiz MD [address], [place], [address], [place] [facility] 07/12/2017 09:24:22 05/15/20 17 Most Recent Mammogram completed Yecenia Ruiz MD [address], [place], [address], [place] [facility] 07/12/2017 09:41:28 08/18/20 16 Date of Last Colonoscopy completed Selma Berry, RN [address], [place], [address], [place] [facility] 08/16/2021 10:07:57 12/10/19 16 thyroidectomy completed Yecenia Ruiz MD [address], [place], [address], [place] [facility] 08/13/2021 13:28:21 Tubal Ligation [...] completed Yecenia Ruiz MD [address], [place], [address], [place] [facility] 07/07/2022 10:45:23 tonsillectomy completed Yecenia Ruiz MD [address], [place], [address], [place] [facility] 08/26/2018 11:27:26 Carpal tunnel surgery completed Diana Yan [place] - [facility] 10/11/2018 15:14:54 Imaging Results None recorded. Procedure Notes None recorded. Medical Equipment None Reported. Allergies Allergen ID Allergen Name Allergen Category Reaction Reaction Severity Criticality Documentation Date Start Date Code Code System Note Provider Name and Address Organization Details Recorded Time 552519 pregabali n medicatio n Not available Not available Not available 01/28/20192016 46892 2 RxNorm Crystal Earlywine null, [place] - [facility] 9 14:29:47 217982 rosuvasta tin medicatio n cough Not available Not available 01/28/20192015 78375 2 RxNorm Crystal Earlywine null, [place] - [facility] 9 14:29:47 660680 pioglitaz one medicatio n Not available Not available Not available 01/28/20192017 59876 RxNorm Crystal Earlywine null, [place] - [facility] 9 14:29:47 506152 codeine medicatio n itching Not available Not available 01/28/20192014 2670 RxNorm Crystal Earlywine null, [place] - [facility] 9 14:29:47 066875 ramires extract food Not available Not available Not available 01/28/20192017 05046 73 RxNorm Crystal Earlywine null, [place] - [facility] 9 14:29:47 49163 Glycine max (substan e) environme nt,food,m edication Not available Not available Not available 07/14/20162011 50718 5007 SNOMED Not Available [facility] 6 10:03:55 40676 green ramires food Not available Not available Not available 07/14/20162011 Not Available [facility] 6 10:03:56 29219 metformin hydrochlo ride medicatio n facial swelling Not available Not available 07/14/20162008 96215 3 RxNorm Not Available [facility] 6 10:03:56 71104 Actos medicatio n rash Not available Not available 07/14/20162012 15311 2 RxNorm Not Available [facility] 6 10:03:56 08777 Product containin g angiotens in-conver ting enzyme inhibitor (product) medicatio n Not available Not available Not available 07/14/20162010 62849 009 SNHATTIE godfrey, [place] - [facility] 6 [...] 50 mcg/actua tion nasal spray,rose marie pension [place] every day by nasal route as directed [...] completed Not Available Not Available Not Available Fluid 1 daily 10/11 completed Not Available Not [...] Available Dymista 137 mcg-50 mcg/spray nasal spray [place] 1 spray every day by nasal route [...] Not Available Not Available FreeStyle Milagro 2 [place] active Not Available Not Available Not Available Vitals Date Recorded Body height Body mass index (BMI) Body weight Body temperature Respiratory rate Heart rate Oxygen saturation Systolic And Diastolic Provider Name and Address Organization Details Last Updated DateTime 3 160.02 cm 38.8 kg/m2 50509.7 3 g 98.6 [degF] 20 /min 58 [...] 150/96 mm[Hg] 140/86 mm[Hg] 140/84 mm[Hg] [facility] 3 16:48:37 Date Recorded Body height Body mass index (BMI) Body weight Body temperature Respiratory rate Heart rate Oxygen saturation Systolic And Diastolic Systolic And Diastolic Provider Name and Address Organization Details Last Updated DateTime 2 160.02 cm 36.3 kg/m2 66986.1 4 g 98.5 [degF] 20 /min 58 /min 98 % 156/100 mm[Hg] 140/58 mm[Hg] [facility] 2 11:14:51 Date Recorded Body height Heart rate Oxygen saturation Pain severity - 0-10 verbal numeric rating [Score] - Reported Body mass index (BMI) Body weight Body temperature Respiratory rate Systolic And Diastolic Provider Name and Address Organization Details Last Updated DateTime 2 160.02 cm 74 /min 98 % 8 36.5 kg/m2 69463.0 3 g 98.3 [degF] 18 /min 138/84 mm[Hg] Lizzy Washington [facility] 2 14:52:44 Date Recorded Body height Body temperature Heart rate Oxygen saturation Provider Name and Address Organization Details Last Updated DateTime 08/15/2022 160.02 cm 102.6 [degF] 102 /min 93 % [facility] 08/15/2022 13:39:35 Social History Question Answer Notes LastModified by Organizat ion Details LastModified Time Tobacco Smoking Status Never Smoker Tanvi godfrey [facility] 08/04/2016 13:26:20 Able To Swim? Yes [...] Atrial Fibrillation N congenital heart disease N Kidney Stones N Blood Diseases N Hyperthyroidism N Rheumatoid arthritis N Blood Transfusion N Erectile Dysfunction N amputation N Skin Lesions N Depression N COPD N Pneumonia N Incontinence N Murmur N Edema N Alzheimer's Disease N Migraine Headaches N Tobacco Abuse N Anxiety Disorder N Muscle, Joint, or Bone Problems Y Hemorrhoids N Obesity Y Vision or Eye Problems N Restless Leg Syndrome N Arthritis Y Polyps N Infertility N Mental Disorder N Carpal Tunnel N Acid Reflux (GERD) N Cancer N Varicosities N Stroke N Tendonitis N Crohn's Disease N Hypercholesterolemia N Skin Cancer N Headaches N Fibromyalgia N Irritable Bowel Syndrome N Anal Fissure N Kidney Disease N Heart Problems N [...] Fasciitis N Hospital Admission Other Than N Lung Disease N Hypothyroidism Y Defects or Inherited Disease N Developmental or Behavioral Disorders N Breast Problem N Difficulty Swallowing N Ovarian Cyst N Anesthesia Complications N Testosterone Deficiency N Meniere's disease N Head Injury/Concussion N Interstitial Cystitis N Congenital Anomalies N Hypoglycemia N Blood clot N Vitamin D Deficiency N Cellulitis N Endometriosis N Bladder or Kidney Problems Y Fracture N Liver Disease N Schizophrenia N Panic Disorder N Concussion N Spina Bifida N Allergies/Hayfever N Osteoarthritis N Parkinson's Disease N Disc Protrusion N STI N Esophagitis N Angina N Thyroid Problems N GI Problems N ADD/ADHD N Anemia N Multiple Sclerosis N Abnormal PAP N Lumbago N Mental Illness N Psychiatric Illness N Ovarian Cancer N Diabetes Y Bedwetting N Degenerative Disc Disease Y Seizures/Epilepsy N Congestive Heart Failure (CHF) Y Syncope N Hyperlipidemia Y Insomnia N Eczema N Abuse/Domestic Violence N Attention Deficient Disorder N Dementia N Diverticulitis N Ulcerative colitis N Cerebrovascular Disease Y Depression N Guillain-[place] N Sleep Apnea N Aneurysm N Bronchitis [...] 0 completed Yecenia Ruiz MD [address], [address], [place] [facility] 10/05/2020 17:08:59 zoster recombinant 0 completed Yecenia Ruiz MD [address], [place], [address], [place] [facility] 10/05/2020 17:08:59 Influenza, split virus, quadrivalent, preservative 7 completed Not Available [facility] 10/25/2019 03:54:37 influenza, unspecified formulation 4 completed Not Available [facility] 2023 00:26:22 influenza, unspecified formulation 4 completed Not Available [facility] 2023 00:26:22 influenza, unspecified formulation 6 completed Not Available [facility] 2023 00:26:22 pneumococcal polysaccharide PPV23 8 completed Not Available [facility] 10/25/2019 03:54:58 Influenza, split virus, quadrivalent, preservative 9 completed Not Available [facility] 10/25/2019 03:56:15 zoster live 9 completed Not Available [facility] 10/25/2019 03:56:02 Past Encounters Encounter ID Performer Location Encounter Start Date Encounter Closed Date Diagnosis/Indication Diagnosis SNOMED-CT Code Diagnosis ICD10 Code Diagnosis IMO Codes Diagnosis Note [id number] Tristan Chavez DO [address] [place] [id number] 08/04/2016 12:29:08 08/04/2016 14:14:14 Chest pain 04638822 R07.9 [id number] Tiffany Houser APR[address] [place] [id number] 09/06/2016 10:49:14 09/06/2016 11:28:02 Pain of shoulder region 28359788 M25.512 Neuropathy due to diabetes mellitus 530557801 E11.40 [id number] Tiffany Houser APRN [address] [place] [id number] 10/10/2016 09:53:23 10/10/2016 10:37:12 Anxiety 46390555 F41.9 Neuropathy due to diabetes mellitus 148762497 E11.40 Irritable bowel syndrome 08924036 K58.9 Fibromyalgia 327388931 M 79.7 Gastroesop hageal reflux disease 999924954 K21.0 Disease of liver 6158568 03 K76.9 Malignant neoplasm of thyroid gland 548446228 C73 Arthritis 6074828 M19.90 Type 2 arslan betes mellitus 66505603 E11.42 Hyperlipidemia 43319384 E78.5 Essential hypertension 11122499 I10 Osteoporosis 05356407 M8 1.0 Hiatal hernia 79008598 K 44.9 Degenerati on of intervertebral disc 41485482 M51.9 Diabetes mellitus 806354 09 E13.43 [id number] Tiffany Houser APRN [address] [place] [address] 11/07/2016 10:04:43 11/07/2016 10:20:06 Long-term drug therapy 507393042 Z79.899 Irritable bowel syndrome 11817284 K58.9 Fibromyalgia 679171866 M 79.7 Gastroesop hageal reflux disease 617587688 K21.0 Disease of liver 9432339 03 K76.9 Malignant neoplasm of thyroid gland 658995215 C73 Arthritis 5242056 M19.90 Type 2 arslan betes mellitus 92746955 E11.42 Hyperlipidemia 00848263 E78.5 Essential hypertension 47925320 I10 Osteoporosis 66914961 M8 1.0 Degenerati on of intervertebral disc 31948175 M51.9 Hiatal hernia 12562238 K 44.9 [id number] Tiffany Houser APRN [address] [place] [id number] 11/28/2016 15:25:45 11/28/2016 15:52:10 Pain of shoulder region 20688508 M25.512 Pain in left arm 3813991 00 M79.199 [id number] Yamilet Kellogg MD [address] [place] [address] 12/11/2016 17:25:32 12/11/2016 18:22:52 Abscess of skin and/or subcutaneous tissue 54222190 L02.91 Carpal king yeimi syndrome 51333858 G56.02 Viral gastroenteritis 11 6457559 A08.4 [id number] Tiffany Houser APRN [address] [place] [address] 01/09/2017 09:41:26 01/09/2017 10:43:41 Long-term drug therapy 790967711 Z79.899 Diabetes mellitus 471347 09 E11.9 [id number] Tiffany Houser APRN [address] [place] [id number] 04/12/2017 08:27:32 04/12/2017 09:07:49 Long-term drug therapy 528716811 Z79.899 Vitamin D deficiency 347 15415 E55.9 Allergic conjunctivitis 260886842 H10.13 [id number] Yecenia Ruiz MD [address] [place] [address] 07/12/2017 09:03:02 07/12/2017 10:01:24 Fibromyalgia 294483387 M79.7 Gastroesop hageal reflux disease 438505755 K21.9 Long-term drug therapy 717613085 Z79.899 Type 2 arslan betes mellitus 51557999 E11.42 Osteoporosis 24680467 M8 1.0 Non-alcoho lic fatty liver 198996562 K76.0 Vitamin D deficiency 347 01607 E55.9 Allergic conjunctivitis 223142252 H10.11 Seasonal a llergic rhinitis 328882061 J30.2 History of polyp of colon 616817911 Z86.010 Administra tion of influenza vaccine 16561109 Z23 [id number] Yecenia Ruiz MD [address] [place] [id number] 08/17/2017 09:42:21 08/17/2017 10:36:04 Acute sinusitis 08658721 J01.90 Lesion of nasal mucosa 365954676 J34.89 [id number] Yecenia Ruiz MD [address] [place] [id number] 10/05/2017 10:12:47 10/05/2017 11:12:05 Gastroesophageal reflux disease 064580116 K21.9 Hematochezia 905884583 K 62.5 [id number] Yecenia Ruiz MD [address] [place] [address] 01/03/2018 09:54:48 01/03/2018 10:34:05 Type 2 diabetes mellitus 79900810 E11.42 Hyperlipidemia 89175100 E78.5 Essential hypertension 39950638 I10 Gastroesop hageal reflux disease 277925092 K21.9 Fibromyalgia 799887916 M 79.7 Administra tion of pneumococcal vaccine 74549477 Z23 [id number] Mark Tavera APRN [address] [place] [id number] 01/11/2018 10:11:53 01/11/2018 10:44:57 Acute frontal sinusitis 34782454 J01.10 Acute conjunctivitis 537 72371 H10.12 Lesion of nasal mucosa 814533273 J34.89 Patient has muciprocin 2% she is currently using for this, prescribed per Dr. Ruiz. [id number] Mark Tavera APRN [address] [place] [id number] 01/24/2018 10:35:42 01/24/2018 11:34:53 Bacterial conjunctivitis 830214263 H10.9 Multiple environmental allergies 237924706 T78.49XS Multiple allergies [id number] Yecenia Ruiz MD [address] [place] [id number] 04/05/2018 09:44:00 04/05/2018 10:23:44 Fibromyalgia 268145455 M79.7 Gastroesop hageal reflux disease 089964624 K21.9 Type 2 arslan betes mellitus 23773653 E11.42 Hyperlipidemia 07256623 E78.5 Essential hypertension 14321740 I10 Arthritis 6063684 M19.90 Body mass index 30+ - obesity 536162949 Z68.36 Active or passive immunization 304516458 Z23 Screening mammography 24 391851 Z12.31 History of multiple allergies 950509340 Z91.09 [id number] Yecenia Ruiz MD [address] [place] [address] 08/26/2018 10:52:28 08/26/2018 11:29:28 Acute pharyngitis 278014962 J02.9 Candidiasis of vagina 72 919797 B37.3 [id number] Pedro Tony MD [address] [place] [id number] 10/11/2018 14:50:12 10/11/2018 16:00:13 Pain of left hip joint 1918093175 69764 M25.552 Body mass index 30+ - obesity 646076780 Z68.34 [id number] Yecenia Ruiz MD [address] [place] [id number] 08/28/2019 15:28:32 08/28/2019 16:42:10 Fibromyalgia 853866818 M79.7 Irritable bowel syndrome 56630773 K58.9 Gastroesop hageal reflux disease 337377393 K21.9 Long-term drug therapy 295425818 Z79.899 Arthritis 4162316 M19.90 Type 2 arslan betes mellitus 07492043 E11.42 cont care per Endo Hyperlipidemia 08663102 E78.5 Essential hypertension 01022845 I10 Degenerati on of intervertebral disc 47854483 M51.9 Body mass index 30+ - obesity 936459494 Z68.35 Administra tion of influenza vaccine 04561109 Z23 Active or passive immunization 835256624 Z23 Pain in left foot 755501 5590 44292 M79.174 [id number] Yecenia Ruiz MD [address] [place] [id number] 09/09/2019 16:29:11 09/09/2019 18:09:39 Active or passive immunization 610508621 Z23 [id number] Maranda Stock [facility] [address] [place] [address] 11/05/2019 12:01:08 11/05/2019 12:36:49 Pain in throat 361944010 R07.0 Cough 49416048 R05 Upper resp iratory infection 68154684 J06.9 [id number] Yecenia Ruiz MD [address] [place] [address] 01/29/2020 14:22:39 01/29/2020 15:41:52 Closed fracture of rib 79668994 S22.39XA Liver marcello r laceration with open wound into cavity 289056500 S36.114A Fracture o f transverse process of lumbar vertebra 998820066 S32.009A Adrenal gl and hematoma 041133336 E27.49 Fractured nasal bones 26 7473393 S02.2XXA Traumatic intracranial subdural hematoma with brief loss of consciousness 301261602 S06.5X9A Mallet finger 13123572 M 20.011 5th [id number] Yecenia Ruiz MD [address] [place] [id number] 03/05/2020 09:41:29 03/05/2020 10:39:44 Increased liver function 31546755 R94.5 Liver enzy mes level above reference range 314860114 R74.8 Closed fra cture of rib 87668682 S22.39XA Liver marcello r laceration with open wound into cavity 782106974 S36.114A Fracture o f transverse process of lumbar vertebra 239198287 S32.009A Adrenal gl and hematoma 526228893 E27.49 Traumatic intracranial subdural hematoma with brief loss of consciousness 574326334 S06.5X9A Mallet finger 22061643 M 20.011 wear brace as much as she can - I bent the brace so the joint would be more in extension [id number] Yecenia Ruiz MD [address] [place] [id number] 03/26/2020 09:20:01 03/26/2020 10:20:34 Closed fracture of rib 82738234 S22.39XA Liver marcello r laceration with open wound into cavity 755256651 S36.114A Fracture o f transverse process of lumbar vertebra 017845282 S32.009A Adrenal gl and hematoma 923347603 E27.49 Traumatic intracranial subdural hematoma with brief loss of consciousness 419358155 S06.5X9A Mallet finger 91980465 M 20.011 wear brace as much as she can - I bent the brace so the joint would be more in extension Muscle pain 58620438 M79 .10 Screening mammography 24 361882 Z12.31 New daily persistent headache 5100943733 24653 G44.52 [id number] Tete Cox MD [address] [place] [address] 07/13/2020 11:58:21 07/13/2020 12:48:45 Right flank pain 895010592 R10.9 UA in office is unremarkab le. Hx of kidney stones. I recommende d that she should go to the hospital emergency department (ER) right now for further evaluation and management . I offered transfer to ER via ambulance but patient declined that. Follow up with us after hospital discharge. Patient agrees with the above plan. Chronic back pain 845474 002 M54.9 Get XRS of L and T spines. Follow up with PCP Dr. Ruiz Numbness 88549929 R20.0 See above under headache - Headache 79055503 R51.9 Intermitte nt headaches and numbness over forehead and left side of face since trauma on 01.19.20. No known allergies to contrast or dye. Will get MRI of brain. Follow up with us in 1 to 2 days after MRI to discuss test results [id number] Yecenia Ruiz MD [address] [place] [address] 07/20/2020 16:00:12 07/20/2020 16:54:41 Fibromyalgia 310547775 M79.7 [id number] Yecenia Ruiz MD [address] [place] [address] 10/05/2020 09:50:02 10/05/2020 13:01:23 Arthritis 3814514 M19.90 Coronary arteriosclerosis 70436168 I25.10 Degenerati on of intervertebral disc 95542482 M51.9 Essential hypertension 58765593 I10 Fibromyalgia 024785386 M 79.7 Gastroesop hageal reflux disease 243350750 K21.9 Hyperlipidemia 62321716 E78.5 Malignant neoplasm of thyroid gland 305415582 C73 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 645701435 E11.3299 Mixed hyperlipidemia 267 711314 E78.2 Non-alcoho lic fatty liver 397797832 K76.0 Type 2 arslan betes mellitus 73420976 E11.42 cont care per Endo Screening mammography 24 761409 Z12.31 she has appt in Oct, 2020 Administra tion of influenza vaccine 97298661 Z23 Pain in bi lateral feet 6167753879 1068118 M79.672 Myalgia/my ositis - multiple 930796801 M79.10 Active or passive immunization 950338593 Z23 Vaccination needed 70203 89887 33465 Z23 [id number] Yecenia Ruiz MD [address] [place] [address] 08/16/2021 08:25:57 08/16/2021 09:14:41 Coronary arteriosclerosis 67838661 I25.10 following with cardiology Essential hypertension 55015712 I10 controlled on meds Fibromyalgia 743013415 M 79.7 stable, doing well on meds Gastroesop hageal reflux disease 534457274 K21.9 controll on PPI Hyperlipidemia 50824813 E78.5 Malignant neoplasm of thyroid gland 721610732 C73 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 791833467 E11.3299 Mixed hyperlipidemia 267 439223 E78.2 on Praluent Non-alcoho lic fatty liver 450605344 K76.0 follows with Endo Type 2 arslan betes mellitus 86154370 E11.42 cont care per Endo Administra tion of influenza vaccine 50059269 Z23 Allergic conjunctivitis 931210389 H10.11 Low back pain 437817547 M54.50 Migraine 81250341 G43.90 9 Dysuria 56708196 R30.9 [id number] Yecenia Ruiz MD [address] [place] [address] 12/13/2021 13:39:18 12/13/2021 15:02:27 Chronic daily headache 4744577126 20580 R51.9 Migraine without aura 56 442159 G43.408 [id number] Yecenia Ruiz MD [address] [place] [address] 03/28/2022 10:45:40 03/28/2022 11:37:09 Acute sinusitis 59412518 J01.90 [id number] Yecenia Ruiz MD [address] [place] [address] 07/07/2022 10:02:30 07/07/2022 11:27:41 New daily persistent headache 8293311894 81034 G44.52 Vertigo 237313347 R42 [id number] Pedro Tony MD [address] [place] [address] 07/26/2022 14:25:54 07/26/2022 14:58:30 Suspected COVID-19 759474731 Z20.822 Influenza- like symptoms 451040281 R68.89 Lymphadenitis 53972336 I 88.9 Body mass index 30+ - obesity 390448560 Z68.36 [id number] Yecenia Ruiz MD [address] [place] [address] 08/15/2022 12:28:43 08/15/2022 15:49:42 Influenza-like symptoms 753494994 R68.89 [id number] Yecenia Ruiz MD [address] [place] [address] 10/26/2022 13:48:18 10/26/2022 14:40:55 Coronary arteriosclerosis 48904694 I25.10 following with cardiology Essential hypertension 15274198 I10 controlled on meds Fibromyalgia 896991133 M 79.7 stable, doing well on meds Gastroesop hageal reflux disease 817229361 K21.9 controlled on PPI Malignant neoplasm of thyroid gland 753307441 C73 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 067093275 E11.3299 Mixed hyperlipidemia 267 652094 E78.2 on Praluent Non-alcoho lic fatty liver 710945790 K76.0 follows with Endo Type 2 arslan betes mellitus 34782451 E11.42 cont care per Endo Migraine 39574807 G43.90 9 meds are helping Acute low back pain 2788 46472 M54.50 [address] acic back pain 888818448 M54.6 as above [id number] Yecenia Ruiz MD [address] [place] [address] 11/13/2022 15:09:28 11/13/2022 17:50:38 Coronary arteriosclerosis 35170848 I25.10 following with cardiology Essential hypertension 68373753 I10 controlled on meds Fibromyalgia 087619252 M 79.7 stable, doing well on meds Gastroesop hageal reflux disease 682316903 K21.9 controlled on PPI Mixed hyperlipidemia 267 347492 E78.2 on Praluent Non-alcoho lic fatty liver 427987249 K76.0 follows with Endo Type 2 arslan betes mellitus 59469898 E11.42 cont care per Endo Migraine 98826688 G43.90 9 meds are helping Dizziness 989072258 R42 Health Concerns Section Related Observation LastModified by Organization Detai ls LastModified Time None Recorded Concern Status LastModified by Organization Details LastModified Time None Recorded Advance Directives Directive N: Payers Insurance Date Sequence Insurance Name Policy Number Policy Jacobsen Covered Member ID Jacobsen Member ID Guarantor Name 08/16/2021 1 [place] Angeles Machado [id number] Angeles Machado 10/26/2022 1 [place]/A DVANTAGE - HMO) [id number] Angeles Machado [id number] Angeles Machado 08/16/2021 [employer] BUREAU Angeles Machado 08/16/2021 1 [place] Angeles Machado [id number] Angeles Machado 11/13/2022 2 [facility]ICA[facility] HE[facility] CHOICES - FFS/TRADITION AL Angeles Machado [id number] Angeles Machado 08/16/2021 [employer] [place]ICARE) Angeles Machado [id number] Angeles Machado 11/03/2022 1 [employer] - CHOICECARE (PPO) Angeles Machado [id number] Angeles Machado 11/13/2022 1 [employer] (MEDICARE REPLACEMENT/A DVANTAGE - PPO) Angeles Machado [id number] Angeles Machado Notes Date Note Type Note [...] made CURRY's worse Yecenia Ruiz MD [address], [place], [address], [facility] 07/07/2022 11:26:50 07/26/2022 text/html C/O ST, head congestion, swollen cervical glands 4 days. Gets every year and needs abt. Pedro Tony MD [address], [place], [address], [facility] - [facility] 07/26/2022 15:02:19 08/15/2022 text/html she has had 2 days of fever, chills, body aches, cough, congestion and SOB hurts all over. decreased appetite but drinking Yecenia Ruiz MD [address], [place], [address], [facility] 08/15/2022 15:43:10 10/26/2022 text/html here with back pain x 2 weeks. no known injury. taking ibu 800, MR, heat, roll on lotions, or meloxicam pain is diffuse low and mid back hasn't been seen for a routine care visit since Aug, she has been seeing analog design engineer and the nasal sprays are helping follows with Dr Taylor for DM goes to eye doc regularly last A1c - she doesn't remember taking calcium and vit D not checking BP at home Dr Cunningham is filling her meds her glucose monitor went off - 58. she tested and was 85 Yecenia Ruiz MD [address], [place], [address], [facility] - [facility] 10/26/2022 18:57:40 11/13/2022 text/html seen 2 weeks ago with back pain. she was treated and referred to PT now has dizziness and a CURRY and hip pain. her head started feeling bad earlier today.. she went to [employer] to eat and felt worse so came here. her vision is fuzzy B [facility] also having mid back pain and while she was here she felt that her L arm was jerking. L sided CP that she felt with deep breaths. her heart is racing reviewed recent labs she did per Endo recently she hasn't been seen for a routine care visit since Aug, she has been seeing analog design engineer and the nasal sprays are helping follows with Dr Taylor for DM. her A1c 8.9% Yecenia Ruiz MD [address], [place], [address], [place] - [facility] 11/13/2022 19:02:26 OBGyn Episode No OBEpisode recorded.
--- OUTSIDE RECORDS SUMMARY | 2025-09-12 00:38 | XMS_ITS | Clinical Summary ---
Author Organization [facility] Address [address] [place] [address] Care Team Providers Care Meat Counter Clerk Name Role Phone Tiffany Mayen Peng Primary Care Provider [phone] Source Comments This information has been disclosed [...] therelease of HIV test results or diagnoses. [id number] Allergies No known active allergies Immunizations [...] of Treatment Not on file Insurance [place]ICAID [place] Care Teams Meat Counter Clerk Relationship Specialty Start Date End Date Tiffany Mayen [address] [facility] [address] [place] [address] PCP - General 07/12/16
--- OUTSIDE RECORDS SUMMARY | 2025-09-12 00:38 | XMS_ITS | Clinical Summary ---
Author Organization Healthcare Address [address] [place] [address] Care Team Providers Care Supervisor Pairing And Inspecting Name Role Phone Unavailable Primary Care Provider [...] 09/09/2009 [facility]-Zoster Vaccines (1 of 2) 2012 [id number] Vaccine (1 - season) 2025 [facility]-Influenza Vaccine [...]
[2025-09-12 00:39] VITALS: BP 192/88; PULSE 74; RESP 16; TEMP 36.6; O2SAT 96; BMI 32.9
--- OUTSIDE RECORDS SUMMARY | 2025-09-12 00:40 | XMS_ITS | Continuity of Care Document ---
Author Organization 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 Name Role Phone Chris Serra MD Unavailable [phone] Encounters Date Type Department Care Team Description 07/09/2025 11:40 AM EDT Office Visit [facility] [address] [facility] [address] [place], [place] [address] Rojas Cunningham MD Dyslipidemia associated with type 2 diabetes mellitus (HCC) (Primary Dx); Post-surgical hypothyroidism; Follicular thyroid cancer (HCC); Vitamin D deficiency 07/04/2025 Refill [facility] [address] [facility] [address] [place], [place] [address] Lissy Sagastume APRN Medication Refill 06/22/2025 Telephone [facility] [address] [place] [phone] Rojas Cunningham MD Labs Only 06/04/2025 Telephone [facility] [address] [employer] [address] [place], [place] [phone] Rojas Cunningham MD Cancelled Appointment 02/23/2025 Telephone [facility] [address] [place] [address] Rojas Cunningham MD Results (External Results Request - Diabetes Eye Exam ) 02/23/2025 3:00 PM EDT Office Visit [address] [place] [address] Rojas Cunningham MD Dyslipidemia associated with type 2 diabetes mellitus (HCC) (Primary Dx); Post-surgical hypothyroidism; Vitamin D deficiency; Follicular thyroid cancer (HCC) 02/16/2025 Telephone [place] [address] Rojas Cunningham MD Labs Only 02/12/[address] [place] [address] Rojas Cunningham MD Paperwork/forms 09/01/[address] [place] [address] Rojas Cunningham MD Paperwork/forms (TMS) 08/26/2024 10:40 AM EST Office Visit [address] [place] [address] Rojas Cunningham MD Dyslipidemia associated with type 2 diabetes mellitus (HCC) (Primary Dx); Post-surgical hypothyroidism; Vitamin D deficiency 07/18/[address] [place] [address] Rojas Cunningham MD Medication Refill 07/14/2024 [place] [address] Lissy Sagastume APRN Medication Refill 05/13/[address] [place] [address] Lissy Sagastume APRN Medication Refill 05/08/2024 12:30 PM EDT Office Visit [place] [address] [address] [address] Rojas Cunningham MD Post-surgical hypothyroidism (Primary Dx); Follicular thyroid cancer (HCC); Vitamin D deficiency; Dyslipidemia associated with type 2 diabetes mellitus (HCC) 04/30/2024 Telephone [facility] [address] [address] Rojas Cunningham MD Other 04/03/2024 [facility]ty [facility] [address] [place] [address] Jael Baker [facility] Hyperlipidemia Management (Repatha) 01/09/2024 Telephone [place] [address] [place] [address] Rojas Cunningham MD Medication Refill 01/08/2024 Refill [place] [address] [place] [address] Rojas Cunningham MD Medication Refill 01/08/2024 [facility]ty [facility] [address] [place], [place] [id number] Hyacinth Mancilla [facility] Hyperlipidemia Management (Repatha ) 01/07/2024 Travel 01/07/2024 12:20 PM EDT Telemedicine [facility] [address] [address] Rojas Cunningham MD Dyslipidemia associated with type 2 diabetes mellitus (HCC) (Primary Dx); Post-surgical hypothyroidism; Follicular thyroid cancer (HCC); Vitamin D deficiency 12/26/2023 Telephone [facility] [address] [address] Rojas Cunningham MD Labs Only 11/28/2023 [facility]ty [facility] [address] [place], [place] [id number] Mary Mancilla [facility] Hyperlipidemia Management; Pharmacy Reassessment (Repatha) 10/31/2023 Refill [facility] [address] [facility] [address] [place] [address] Rojas Cunningham MD Medication Refill 10/10/2023 [facility]ty [facility] [address] [place] [address] Arnav Duong [facility] Hyperlipidemia Management (Repatha) 09/24/2023 1:50 PM EST Office Visit [address] Rojas Cunningham MD Dyslipidemia associated with type 2 diabetes mellitus (HCC) (Primary Dx); Vitamin D deficiency; Post-surgical hypothyroidism; Follicular thyroid cancer (HCC) 09/18/2023 Telephone [facility] [address] [place] [address] Rojas Cunningham MD Labs Only 09/17/2023 Telephone [facility] [address] [address] Rojas Cunningham MD Labs (Reminder call) 09/05/2023 Telephone [facility] [address] [phone] Rojas Cunningham MD Medication Refill 07/18/2023 Telephone [facility] [address] [address] Rojas Cunningham MD Patient Education 07/16/2023 [facility]ty [facility] [address] [place] [address] Hyacinth Mancilla [facility] Hyperlipidemia Management (Repatha) 06/07/2023 2:50 PM EDT Office Visit [address] [place] [address] Rojas Cunningham MD Dyslipidemia associated with type 2 diabetes mellitus (HCC) (Primary Dx); Vitamin D deficiency; Post-surgical hypothyroidism; Follicular thyroid cancer (HCC) 05/25/2023 9:30 AM EDT - 05/25/2023 11:59 PM EDT Hospital Encounter [facility] [address] [place] [address] Dyslipidemia associated with type 2 diabetes mellitus (HCC); Vitamin D deficiency; Post-surgical hypothyroidism Discharge Disposition: Home or Self Care 05/25/2023 10:00 AM EDT Office Visit [facility] [address] [place] [address],[place] Type 2 diabetes mellitus with hyperglycemia, with long-term current use of insulin (HCC) (Primary Dx) 05/19/2023 [place] [address] Rojas Cunningham MD Medication Refill 04/30/[address] [address] Rojas Cunningham MD Medication Refill 04/23/2023 [facility]ty [facility] [address] [place] [address] Hyacinth Mancilla [facility] Hyperlipidemia Management (Repatha ) 03/29/2023 2:40 PM EDT Office Visit [facility] [address] [address] Rojas Cunningham MD Dyslipidemia associated with type 2 diabetes mellitus (HCC) (Primary Dx); Post-surgical hypothyroidism; Vitamin D deficiency 03/27/2023 [facility]ty [facility] [address] [place], [place] [id number] Hyacinht Mancilla, gig [facility] Pharmacy Hyperlipidemia Management (Repatha ) 03/20/2023 Travel 03/20/2023 12:10 PM EDT - 03/20/2023 11:59 PM EDT Hospital Encounter [facility] 1500 [facility] Farmer [address] Dyslipidemia associated with type 2 diabetes mellitus (HCC); Vitamin D deficiency; Post-surgical hypothyroidism Discharge Disposition: Home or Self Care 03/20/2023 1:00 PM EDT Office Visit [facility] [address],CDE Type 2 diabetes mellitus with hyperglycemia, with long-term current use of insulin (HCC) (Primary Dx) 03/14/2023 Telephone [facility] [address] [place] [address] Rojas Cunningham MD Blood Sugar Problem 03/07/2023 Telephone [facility] [address] [place] [address] Rojas Cunningham MD Labs Only 03/06/2023 Telephone [facility] [address] Rojas Cunningham MD CGMS Interpretation (Milagro Report/Hyperglycemia) 02/14/2023 Telephone [facility] [address] [place] [address] Rojas Cunningham MD Patient Education 02/05/2023 Refill [facility] [address] [address] Rojas Cunningham MD Medication Refill 02/02/2023 Telephone [facility] [address] [address] Rojas Cunningham MD Symptom Call; Appointment Needed; Lab Orders 01/12/2023 Telephone [place] [address] [address] [facility] [address] [place] [address] Rojas Cunningham MD Medication Refill 12/21/2022 [facility]ty [facility] [address] [place] [address] Kerrie Almodovar, [facility] Hyperlipidemia Management (Repatha) 11/28/[address] [place], [place] [address] Rojas Cunningham MD Glucose Monitoring 11/28/2022 [facility]ty [facility] [address] [place], [place] [id number] Starr Ceja, [facility] Hyperlipidemia Management; Pharmacy Initial Assessment (Repatha) 11/28/2022 [address] Rojas Cunningham MD CGMS Interpretation (Milagro) 11/24/2022 [facility]ty [facility] [address] [place], [place] [id number] Ashley Ambrosio, [facility] Hyperlipidemia Management (Repatha) 11/23/2022 [facility]ty [facility] [address] [place], [place] [id number] Gerardo Hdz, [facility] Hyperlipidemia Management (Praluent) 11/23/2022 Orders Only [facility] 1500 [facility] [address] [place] [address] Michaelle Garcia LPN Dyslipidemia associated with type 2 diabetes mellitus (HCC); Hyperlipidemia associated with type 2 diabetes mellitus (HCC) 11/16/2022 Refill [facility] 1500 [address] [facility] [address] [place] [phone] Rojas Cunningham MD Medication Refill 11/15/2022 Telephone [facility] [address] [place] [address] Rojas Cunningham MD Prior Authorization (Milagro-DME) 11/14/2022 7:50 AM EST Office Visit [facility] [address] [place] [address] Rojas Cunningham MD Dyslipidemia associated with type 2 diabetes mellitus (HCC) (Primary Dx); Post-surgical hypothyroidism; Vitamin D deficiency 11/07/2022 Telephone [facility] 1500 [facility] Farmer [facility] [address] [place] [address] Rojas Cunningham MD Labs Only 10/30/[address] [place] [facility] [address] [place] [address] Rojas Cunningham MD Medication Refill; Central Patient Navigator Outreach (med refills 2nd ) 10/01/2022 Refill [facility] [address] [place] [address] Rojas Cunningham MD Medication Refill 08/15/2022 Telephone [facility] [address] [place] [address] Rojas Cunningham MD Cancellation 08/06/2022 Refill [facility] [address] [place] [address] Rojas Cunningham MD Medication Refill; Labs Only 07/10/2022 Telephone [facility] [address] [place] [address] Rojas Cunningham MD Symptom Call 06/29/2022 Refill [facility] [address] [place] [address] Rojas Cunningham MD Medication Refill 06/23/2022 Refill [facility] 1500 [facility] Farmer [facility] [address] [place], [place] [address] Rojas Cunningham MD Medication Refill 06/19/2022 Refill [facility] [address] [place] [address] Rojas Cunningham MD Medication Refill 06/13/2022 Refill [facility] 1500 [facility] [address] [place], [place] [address] Rojas Cunningham MD Medication Refill 06/01/2022 Refill [facility] [address] Rojas Cunningham MD Medication Refill 05/09/2022 12:50 PM EDT Office Visit [place] [address] Rojas Cunningham MD Dyslipidemia associated with type 2 diabetes mellitus (HCC) (Primary Dx); Post-surgical hypothyroidism 05/04/2022 Telephone [facility] 1500 [facility] [address] Rojas Cunningham MD Labs Only 03/10/2022 Refill [facility] 1500 [facility] [address] Rojas Cunningham MD Medication Refill 02/15/2022 Refill [facility] [address] [place] [address] Rojas Cunningham MD Medication Refill 02/02/2022 1:20 PM EDT Office Visit [address] [place] [facility] [address] [place] [address] Rojas Cunningham MD Dyslipidemia associated with type 2 diabetes mellitus (HCC) (Primary Dx); Post-surgical hypothyroidism; Follicular thyroid cancer (HCC); Vitamin D deficiency 12/06/[address] [place] [facility] [address] [place], [place] [address] Rojas Cunningham MD Medication Refill 12/01/2021 1:10 PM EST Office Visit [address] Rojas Cunningham MD Dyslipidemia associated with type 2 diabetes mellitus (HCC) (Primary Dx); Vitamin D deficiency; Post-surgical hypothyroidism; Follicular thyroid cancer (HCC) 11/16/[address] [employer] [place] [address] Rojas Cunningham MD Medication Refill 11/12/[address] [place] [address] Rojas Cunningham MD Medication Refill 11/04/[address] Rojas Cunningham MD Medication Refill; Appointment Needed 10/21/[address] [place] [address] Rojas Cunningham MD Other (Antibodies); Cancellation 10/18/[address] [place] [address] Rojas Cunningham MD Labs Only 09/12/[address] [employer] [facility] [address] [place] [address] Rojas Cunningham MD Reschedule 09/06/2021 Telephone [facility] [address] [place] [address] Rojas Cunningham MD Labs Only 09/05/2021 Telephone [facility] [address] [employer] [address] [place] [address] Rojas Cunningham MD Labs Only 08/12/2021 Refill [facility] [address] [employer] [address] [place] [phone] Rojas Cunningham MD Medication Refill 07/29/2021 Travel 07/29/2021 11:00 AM EDT Office Visit [facility] 1500 [facility] [place] [employer] [address] [place] [phone] Willa Horton, BESSY Dyslipidemia associated with type 2 diabetes mellitus (HCC) (Primary Dx); Diabetic autonomic neuropathy associated with type 2 diabetes mellitus (HCC) 07/25/2021 Refill [facility] [address] [employer] [address] [place] [address] Rojas Cunningham MD Medication Refill (Milagro 14 days sensor) 07/15/2021 Travel 07/15/2021 11:00 AM EDT Office Visit [facility] 1500 [facility] [employer] [address] [place] [phone] Willa Horton, BESSY Uncontrolled type 2 diabetes mellitus with complication (HCC) (Primary Dx) 07/12/2021 Telephone [facility] [address] [place] [address] Rojas Cunningham MD Other (Milagro 2) 07/01/2021 Refill [facility] [address] [employer] [address] [place] [phone] Rojas Cunningham MD Medication Refill 06/09/2021 Telephone [facility] [address] [place] [address] Rojas Cunningham MD Results 06/06/2021 Travel 06/06/2021 12:00 PM EDT Office Visit [facility] [address] [address] Rojas Cunningham MD Dyslipidemia associated with type 2 diabetes mellitus (HCC) (Primary Dx); Vitamin D deficiency; Statin intolerance 06/04/2021 [place] [address] Rojas Cunningham MD Medication Refill 05/30/2021 [place] [address] Rojas Cunningham MD Labs Only 05/19/2021 [address] Rojas Cunningham MD Medication Refill 05/06/2021 [place] [address] Rojas Cunningham MD Medication Refill 04/14/2021 Travel 04/14/2021 11:30 AM EDT Office Visit [facility] [address] [address] Willa Horotn LPN Uncontrolled type 2 diabetes mellitus with complication (HCC) (Primary Dx) 04/14/2021 Telephone [facility] [address] [place] [address] Rojas Cunningham MD CGMS Interpretation (Personal Milagro 2 download) 04/12/2021 [facility]ty [facility] [address] [place] [address] Starr Ceja [facility] Hyperlipidemia Management 03/22/2021 Telephone [facility] [address] [place] [address] Rojas Cunningham MD Prior Authorization 03/17/2021 Telephone [facility] [address] [place] [address] Rojas Cunningham MD Glucose Monitoring 03/04/2021 Travel 03/04/2021 4:15 PM EDT Office Visit [facility] [address] [facility] [address] [address] Willa Horton LPN Uncontrolled type 2 diabetes mellitus with complication (HCC) (Primary Dx) 03/04/2021 Telephone [facility] [address] [place] [address] Rojas Cunningham MD CGMS Interpretation (Personal Milagro 2 download) 02/23/2021 Telephone [facility] [address] [employer] [place] [phone] Rojas Cunningham MD CGMS Interpretation (Milagro 2) 02/23/2021 Telephone [facility] [address] [employer] [place] [phone] Rojas Cunningham MD Blood Sugar Problem 02/08/2021 Travel 02/08/2021 11:00 AM EDT Office Visit [facility] [address] [place] [address] Willa Horton LPN Uncontrolled type 2 diabetes mellitus with complication (HCC) (Primary Dx) 02/04/2021 [facility]ty [facility] [address] [place], [place] [id number] Starr Ceja, [facility] Pharm[facility] Hyperlipidemia Management; Pharmacy Initial Assessment 02/04/2021 Telephone [facility] [address] [place] [address] Rojas Cunningham MD Schedule Appointment 02/03/2021 [facility]ty [facility] [address] [place] [address] Ck Landaverde, [facility] Hyperlipidemia Management 02/03/2021 Travel 02/03/2021 12:50 PM EDT Office Visit [place] [address] [employer] [facility] [address] [place] [address] Rojas Cunningham MD Dyslipidemia associated with type 2 diabetes mellitus (HCC) (Primary Dx); Post-surgical hypothyroidism; Vitamin D deficiency 02/01/[address] [employer] [place] [address] Rojas Cunningham MD Labs Only 01/25/2021 Telephone [place] [address] [place] [address] Rojas Cunningham MD Labs Only 01/03/2021 Refill [place] [address] [address] [place] [address] Rojas Cunningham MD Medication Refill 11/17/2020 Telephone [place] [address] [address] [place] [address] Rojas Cunningham MD Symptom Call 11/16/2020 [facility]ty [facility] [address] [place] [address] Jael Baker [facility] Hyperlipidemia Management (Praluent Refill) 10/28/2020 Travel 10/28/2020 1:00 PM EST Office Visit [facility] [address] [place] [address] Rojas Cunningham MD Dyslipidemia associated with type 2 diabetes mellitus (HCC) (Primary Dx); Post-surgical hypothyroidism; Follicular thyroid cancer (HCC); Vitamin D deficiency 10/26/2020 [facility]ty [facility] [address] [place] [address] Jael Baker [facility] Hyperlipidemia Management (Praluent Refill) 10/20/2020 Telephone [facility] [address] Jr [facility] [address] [place] [phone] Rojas Cunningham MD Labs Only 09/29/2020 [facility]ty [facility] [address] [place] [address] Little Cruz [facility] Hyperlipidemia Management 09/08/2020 [facility]ty [facility] [address] [place] [address] Khushi Watson [facility] Hyperlipidemia Management 08/19/2020 Refill [place] [address] [place] [address] Rojas Cunningham MD Medication Refill 08/11/2020 Refill [facility] [address] [place] [address] Rojas Cunningham MD Medication Refill 08/09/2020 [facility]ty [facility] [address] [place] [id number] Yanick Wilks [facility] Hyperlipidemia Management (Praluent) 08/09/2020 Refill [facility] [address] [address] Rojas Cunningham MD Medication Refill 07/19/2020 [facility]ty [facility] [address] [place] [address] Yanick Wilks [facility] Hyperlipidemia Management (Praluent) 07/15/2020 Travel 07/15/2020 1:50 PM EDT Office Visit [place] [address] Es[address] Jr [address] [phone] Rojas Cunningham MD Dyslipidemia associated with type 2 diabetes mellitus (HCC) (Primary Dx); Post-surgical hypothyroidism; Vitamin D deficiency; Follicular thyroid cancer (HCC) 07/05/2020 Telephone [place] [address] [address] [address] Rojas Cunningham MD Labs Only 06/23/2020 [facility]ty [facility] [address] [place], [place] [id number] Jael Baker [facility] Hyperlipidemia Management (Praluent) 06/22/[address] [address] Rojas Cunningham MD Other (Office Notes) 06/02/2020 [facility]ty [facility] [address] [place] [id number] Yanick Wilks [facility] Hyperlipidemia Management (Praluent) 05/10/2020 [facility]ty [facility] [address] [place] [address] Trisha Alexander, [employer] Pharmacy Hyperlipidemia Management (Praluent refill ) 04/12/2020 Travel 04/12/2020 10:30 AM EDT - 04/12/2020 11:59 PM EDT Hospital Encounter [facility] [address] [place] [address] Emg, Sudheer Ritu Bilateral carpal tunnel syndrome (Primary Dx) Discharge Disposition: Home or Self Care 03/29/2020 Telephone [facility] [address] [address] Rojas Cunningham MD Diabetes (Dexcom Information ) 03/29/2020 Orders Only [facility] [address] [place] [address] Michael Verdin MD Carpal tunnel syndrome, bilateral (Primary Dx) 2020 Travel 2020 [facility]ty [facility] [address] [place] [address] Trisha Alexander, [employer] [facility] Hyperlipidemia Management (Praluent refill ) 2020 9:50 AM EDT Office Visit [place] [address] [place] [address] Rojas Cunningham MD Dyslipidemia associated with type 2 diabetes mellitus (HCC) (Primary Dx); Post-surgical hypothyroidism; Follicular thyroid cancer (HCC); Vitamin D deficiency 03/17/2020 Telephone [facility] [address] [place] [address] Rojas Cunningham MD Other (Office Visit Reminder) 03/09/2020 Telephone [facility] [address] Rojas Cunningham MD Reschedule (03/18/20 appointment) 03/08/2020 Telephone [place] [address] [place] [address] Rojas Cunningham MD Lab Orders 02/23/2020 [facility]ty [facility] [address] [place] [address] Yanick Wilks, [facility] Hyperlipidemia Management (Praluent) 02/18/2020 Refill [facility] [address] [place] [address] Rojas Cunningham MD Medication Refill 01/22/2020 [facility]ty [facility] [address] [place] [id number] Yanick Wilks [facility] Hyperlipidemia Management (Praluent refill) 01/21/2020 Telephone [place] [address] [facility] [facility] [address] [place] [place] [address] Belia Spence APRN Medication Refill 12/26/2019 Specialty Pharmacy [facility] [address] [place] [address] Yanick Wilks [facility] Hyperlipidemia Management (Praluent refill) 12/25/2019 Travel 12/05/2019 Specialty Pharmacy [facility] [address] [place] [address] [place] [address] Yanick Wilks [facility] Hyperlipidemia Management (Praluent refill) 11/17/2019 Refill [facility] [address] [place] [address] Rojas Cunningham MD Medication Refill 11/13/2019 Specialty Pharmacy [facility] [address] [place] [address] [place] [address] Esteban Flores [facility] Hyperlipidemia Management 11/13/2019 Specialty Pharmacy [facility] [address] [place] [address] [place] [address] Starr Ceja, [facility] Hyperlipidemia Management; Pharmacy Initial Assessment 10/31/2019 Telephone [facility] [address] [phone] Rojas Cunningham MD Labs Only (Genetic Testing for FH ) 10/13/2019 Specialty Pharmacy [facility] [address] [place] [address] [place], [place] [id number] Esteban Flores [facility] Hyperlipidemia Management 10/13/2019 1:40 PM EST Office Visit [facility] [address] [address] Rojas Cunningham MD Dyslipidemia associated with type 2 diabetes mellitus (HCC) (Primary Dx); Post-surgical hypothyroidism; Follicular thyroid cancer (HCC); Vitamin D deficiency 10/02/2019 Telephone [facility] [address] [email or web address] [address] [place] [phone] Rojas Cunningham MD Labs Only 09/16/2019 Refill [facility] [address] [address] Belia Spence APRN Medication Refill 08/08/2019 Refill [facility] [address] [place] [phone] Belia Spence APRN Medication Refill 07/02/2019 1:40 PM EDT Office Visit [facility] [address] [email or web address] [address] [place] [address] Rojas Cunningham MD Dyslipidemia associated with type 2 diabetes mellitus (HCC) (Primary Dx); Post-surgical hypothyroidism 06/23/2019 Telephone [facility] [address] [email or web address] [address] [place] [address] Rojas Cunningham MD Labs Only 06/23/2019 Telephone [facility] [address] [email or web address] [address] [place] [address] Rojas Cunningham MD Labs Only 05/29/2019 Telephone [facility] [address] [email or web address] [address] [place] [address] Rojas Cunningham MD Labs Only 05/16/2019 Telephone [facility] [address] [place] [address] Rosy Farmer CCMA Other (accreditation) 03/04/2019 1:00 PM EDT Office Visit [facility] [address] [employer] [address] [place] [phone] Belia Spence APRN Uncontrolled type 2 diabetes mellitus with complication (HCC) (Primary Dx); Post-surgical hypothyroidism; Follicular thyroid cancer (HCC); Diabetic autonomic neuropathy associated with type 2 diabetes mellitus (HCC); Mixed dyslipidemia; Vitamin D deficiency; Statin intolerance; Essential hypertension; Sleep apnea, unspecified type; MEIER (nonalcoholic steatohepatitis) 02/27/2019 Telephone [facility] [address] [email or web address] [address] [place] [phone] Belia Spence APRN Labs Only 01/30/2019 Telephone [facility] [address] [address] Rojas Cunningham MD Glucose Monitoring (01/17/19-01/29/19) 01/29/2019 Telephone [facility] [address] [address] Rojas Cunningham MD CGMS Interpretation (Milagro Pro) 01/29/2019 1:00 PM EDT Office Visit [facility] [address] [phone] Uncontrolled type 2 diabetes mellitus with complication (HCC) (Primary Dx) 01/16/2019 2:30 PM EDT Office Visit [facility] [address] [phone] Rojas Cunningham MD Dyslipidemia associated with type 2 diabetes mellitus (HCC) (Primary Dx); Post-surgical hypothyroidism; Follicular thyroid cancer (HCC); Statin intolerance; Vitamin D deficiency 01/08/2019 Telephone [facility] [address] [address] Rojas Cunningham MD Labs Only 01/08/2019 Refill [facility] [address] [phone] Boy Brown MD Medication Refill 01/07/2019 Patient Outreach [facility] [address] Appointment [place] [address] Maranda Jorgensen, HAND II CUTTER Referral Follow-up 12/27/2018 Telephone [facility] [address] [phone] Belia Spence APRN Glucose Monitoring (11/21/18-12/24/18) 11/22/2018 Telephone [facility] [address] [place] [address] Rojas Cunningham MD Diabetes (Milagro due ) 11/22/2018 3:00 PM EST Office Visit [facility] [address] [place] [address] Willa Garcia, RN Uncontrolled type 2 diabetes mellitus with complication (HCC) (Primary Dx) 11/21/2018 Refill [facility] [address] [place] [phone] Rojas Cunningham MD Medication Refill 11/20/2018 Social Work [facility] [address] [place] [address] Jigna Dove LCSW Referral Follow-up 11/20/2018 Patient Outreach [facility] [address] [place], [place] [id number] Sherrie Khan RN Referral 11/20/2018 1:50 PM EST Office Visit [facility] [address] [place] [phone] Rojas Cunningham MD Dyslipidemia associated with type 2 diabetes mellitus (HCC) (Primary Dx); Post-surgical hypothyroidism 11/14/2018 Telephone [facility] [address] [place] [address] Rojas Cunningham MD Labs Only 11/13/2018 Telephone [facility] [address] [place] [address] Belia Spence APRN Labs Only 10/16/2018 Telephone [facility] [address] [place] [address] Rojas Cunningham MD Reschedule (10/24/18 appointment) 09/03/2018 Telephone [facility] [address] [facility] [address] [place] [phone] Belia Spence APRN Medication Refill 08/12/2018 Telephone [facility] [address] [phone] Rojas Cunningham MD Paperwork/forms (Office Notes) 07/22/2018 Telephone [facility] [address] [place] [address] Rosy Farmer, CCMA Results 07/22/2018 Telephone [facility] [address] [place] [address] Nguyen Hays, CCMA Results 07/19/2018 10:20 AM EDT Office Visit [facility] [address] [phone] Belia Spence APRN Uncontrolled type [...] PM EDT Hospital Encounter [facility] [address] [place] [address] S/P laparoscopic sleeve gastrectomy; Postsurgical malabsorption; Encounter for vitamin deficiency screening Discharge Disposition: Home or Self Care 07/05/2018 11:15 AM EDT Office Visit [facility] [address] [place] [address] Lauren Fraser APRN S/P laparoscopic sleeve gastrectomy (Primary Dx); Vitamin D deficiency; Uncontrolled type 2 diabetes mellitus with complication, with long-term current use of insulin (HCC); Mixed dyslipidemia; Gastroesophageal reflux disease without esophagitis; Postsurgical malabsorption; Encounter for vitamin deficiency screening 06/12/2018 Telephone [facility] [address] [facility] [address] [place] [phone] Rojas Cunningham MD Labs Only 05/07/2018 Telephone [facility] 1500 [facility] [address] [place] [phone] Belia Spence APRN Reschedule 05/03/2018 Telephone [facility] 1500 [facility] [address] [place] [phone] Rojas Cunningham MD Labs Only 04/15/2018 Telephone [facility] [address] [facility] [address] [place] [phone] Rojas Cunningham MD Reschedule 04/03/2018 Refill [facility] [address] [place] [address] Gila Winter APRN Medication Refill 02/18/2018 Telephone [facility] [address] [facility] [address] [place] [phone] Rojas Cunningham MD Lab Orders 01/22/2018 Telephone [facility] [address] [place] [address] Fernando Marielos Belem Mcfadden RMA Results 01/07/2018 Telephone [facility] [address] [place] [address] Fernando January Belem Mcfadden RMA Results 01/02/2018 8:49 AM EDT - 01/02/2018 11:59 PM EDT Hospital Encounter [facility] [address] [place] [address] Follicular thyroid cancer (HCC); Post-surgical hypothyroidism; Uncontrolled type 2 diabetes mellitus with complication, with long-term current use of insulin (HCC); S/P laparoscopic sleeve gastrectomy; Hypocalcemia Discharge Disposition: Home or Self Care 01/02/2018 10:00 AM EDT Office Visit [facility] [address] [facility] [address] [place] [address] Boy Brown MD Type 2 diabetes mellitus without retinopathy (HCC) (Primary Dx); KCS (keratoconjunctivitis sicca) (HCC); Contact dermatitis of right eyelid; Refractive error 12/27/2017 Telephone [facility] [address] [place] [phone] Rojas Cunningham MD Medication Refill 12/20/2017 Telephone [facility] [address] [place] [phone] Rojas Cunningham MD Samples 12/10/2017 2:15 PM EST Office Visit [facility] [address] [place] [address] Gila Winter APRN Class 2 [...] disease, esophagitis presence not specified 12/06/2017 Telephone [facility] [address] [address] Rojas Cunningham MD Results 12/03/2017 Telephone [facility] [address] [address] Rojas Cunningham MD Results 11/29/2017 2:40 PM EST Office Visit [facility] [address] [address] Rojas Cunningham MD Uncontrolled type 2 diabetes mellitus with complication, with long-term current use of insulin (HCC) (Primary Dx); Post-surgical hypothyroidism; Follicular thyroid cancer (HCC); Mixed dyslipidemia; Vitamin D deficiency 11/20/2017 Telephone [facility] [address] [address] Rojas Cunningham MD Glucose Monitoring (BSL ) 11/19/2017 Telephone [facility] [address] [address] Rojas Cunningham MD Lab Orders 10/26/2017 Telephone [facility] [address] [address] Rojas Cunningham MD Results 10/26/2017 Orders Only [place] [address] [address] Rojas Cunningham MD Uncontrolled type 2 diabetes mellitus with complication, with long-term current use of insulin (HCC) (Primary Dx); Post-surgical hypothyroidism; Follicular thyroid cancer (HCC); Mixed dyslipidemia 10/24/2017 11:30 AM EST - 10/24/2017 11:59 PM EST Hospital Encounter [facility] [address] [place] [address] Dyslipidemia associated with type 2 diabetes mellitus (HCC); Vitamin D deficiency; Post-surgical hypothyroidism Discharge Disposition: Home or Self Care 10/24/2017 10:50 AM EST Office Visit [facility] [address] [address] Rojas Cunningham MD Uncontrolled type 2 diabetes mellitus with complication, with long-term current use of insulin (HCC) (Primary Dx); Post-surgical hypothyroidism; Mixed dyslipidemia; Vitamin D deficiency 10/22/2017 Telephone [facility] [address] [address] Rojas Cunningham MD Reschedule 10/10/[address] [place] [address] Rojas Cunningham MD Samples 09/22/2017 [place] [address] Rojas Cunningham MD Medication Refill 09/12/2017 [place] [address] Rojas Cunningham MD Glucose Monitoring (Milagro inserted) 09/12/2017 Refill [facility] [address] [place] [address] Gila Winter APRN Medication Refill 09/12/2017 1:30 PM EST Office Visit [place] [address] Rojas Cunningham MD Dyslipidemia associated with type 2 diabetes mellitus (HCC) (Primary Dx); Follicular thyroid cancer (HCC); Post-surgical hypothyroidism; Vitamin D deficiency 09/07/2017 [place] [address] Rojas Cunningham MD Glucose Monitoring (BSL) 08/28/2017 [place] [address] Rojas Cunningham MD Glucose Monitoring (BSL) 08/28/2017 10:30 AM EST Office Visit [facility] [address] [place] [address] Gila Winter APRN Class 2 [...] [facility] [address] [place] [address] Gila Winter APRN Medication Refill (Carafate) 08/03/2017 Telephone [facility] [address] [address] Boy Brown MD Medication Change 08/03/2017 10:15 AM EDT Office Visit [facility] [address] [address] Boy Brown MD Contact dermatitis of right eyelid (Primary Dx); Allergic conjunctivitis of both eyes 08/02/2017 1:10 PM EDT Office Visit [facility] [address] [facility] [address] [place] [phone] Rojas Cunningham MD Dyslipidemia associated with type 2 diabetes mellitus (HCC) (Primary Dx); Post-surgical hypothyroidism; Vitamin D deficiency 07/10/2017 Telephone [facility] [address] [facility] [address] [place] [phone] Rojas Cunningham MD Results ([facility]) 07/10/2017 2:00 PM EDT Office Visit [facility] [address] [place] [address] Obesity, Class II, BMI 35-39.9, with comorbidity (Primary Dx) 07/03/2017 1:40 PM EDT Office Visit [facility] [address] [employer] [address] [place] [phone] Rojas Cunningham MD Dyslipidemia associated with type 2 diabetes mellitus (HCC) (Primary Dx); Vitamin D deficiency 07/03/2017 11:15 AM EDT Office Visit [facility] [address] [place] [address] Gila Winter, MERCHANDISE COMPLAINT ADJUSTER Class 2 obesity due to excess calories [...] disease, esophagitis presence not specified 06/29/2017 Telephone [place] [address] [place] [address] Rojas Cunningham MD Medication Management 06/27/2017 Telephone [place] [address] [place] [phone] Rojas Cunningham MD Lab Orders 06/22/2017 Telephone [place] [address] [place] [phone] Rojas Cunningham MD Glucose Monitoring 06/22/2017 Telephone [place] [address] [address] [phone] Rojas Cunningham MD Samples 06/21/2017 Telephone [facility] [address] [place] [address] Rosy Farmer CCMA Visit Follow Up (results) 06/21/2017 Telephone [place] [address] [address] [address] Rojas Cunningham MD Medication Management 06/19/2017 Telephone [facility] [address] [address] Rojas Cunningham MD Diabetes (High blood sugars) 06/14/2017 1:35 PM EDT - 06/14/2017 11:59 PM EDT Hospital Encounter [facility] [address] [place] [address] Leg cramps; Thiamine deficiency; S/P laparoscopic sleeve gastrectomy; Postsurgical malabsorption Discharge Disposition: Home or Self Care 06/14/2017 1:00 PM EDT Office Visit [facility] [address] [place] [address] Lauren Fraser APRN Leg cramps (Primary Dx); Thiamine deficiency; S/P laparoscopic sleeve gastrectomy; Postsurgical malabsorption; Essential hypertension; Uncontrolled type 2 diabetes mellitus with complication, with long-term current use of insulin ([facility]); Sleep apnea, unspecified type 06/08/2017 Telephone [facility] [address] [place] [address] Fernando January TERESITA Burton Results (Lab results ) 06/06/2017 1:50 PM EDT - 06/06/2017 11:59 PM EDT Hospital Encounter [facility] [address] [place] [address] Fever, unspecified fever cause; Cough; History of sleeve gastrectomy; Platelet inhibition due to Plavix Discharge Disposition: Home or Self Care 06/06/2017 1:15 PM EDT Office Visit [facility] [address] [place] [address] Gila Winter APRN Fever, unspecified fever cause (Primary Dx); Cough; History of sleeve gastrectomy; Platelet inhibition due to Plavix; Gastroesophageal reflux disease, esophagitis presence not specified; Diarrhea of presumed infectious origin; Uncontrolled type 2 diabetes mellitus with complication, with long-term current use of insulin ([facility]); Class 2 obesity due to excess calories with serious comorbidity and body mass index (BMI) of 39.0 to 39.9 in adult; Mixed dyslipidemia; Essential hypertension; Sleep apnea, unspecified type; H/O heart artery stent; S/P laparoscopic sleeve gastrectomy 05/30/2017 7:47 AM EDT - 05/31/2017 3:22 PM EDT Hospital Encounter [facility] [address] [place] [address] Duncan Choi MD Discharge Disposition: Home or Self Care 05/30/2017 10:15 AM EDT - 05/30/2017 12:00 PM EDT Surgery [facility] [address] [place] [address] Duncan Choi MD LAPAROSCOPIC SLEEVE GASTRECTOMY POSSIBLE LAPAROSCOPIC HIATAL HERNIA REPAIR 05/30/2017 9:56 AM EDT Anesthesia Event [facility] [address] [place] [address] Mat Martinez MD Zehnder, Wende, MERCHANDISE COMPLAINT ADJUSTER 05/23/2017 11:12 AM EDT - 05/23/2017 11:59 PM EDT Hospital Encounter [facility] [address] [place] [address] Pat, [facility] Preop testing (Primary Dx); Morbid obesity due to excess calories (HCC) Discharge Disposition: Home or Self Care 05/22/2017 Telephone [facility] [address] [place] [address] Rosy Farmer CCMA Visit Follow Up 05/21/2017 1:30 PM EDT Office Visit [facility] [address] [place] [address] Gila Winter, MERCHANDISE COMPLAINT ADJUSTER 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, unspecified vessel [...] Visit [facility] [address] [place] [address] Ara Horn, FREDDY,CDE Morbid obesity with BMI of 40.0-44.9, adult (HCC) (Primary Dx) 05/17/2017 11:00 AM EDT Office Visit [facility] [address] [place] [phone] Emre Houston MD Sleep apnea, unspecified [...] BMI of 40.0-44.9, adult (HCC) 05/11/2017 Telephone [facility] [address] [facility] [address] [place] [address] Rojas Cunningham MD Other 05/08/2017 Orders Only [facility] [address] [place] [phone] Gila Winter APRN Vitamin deficiency (Primary Dx) 05/08/2017 Telephone [facility] [address] [place] [address] Evi Jones, Clerical Staff Other 05/03/2017 Telephone [facility] [address] [place] [address] Urmila Massey Other 05/03/2017 8:30 AM EDT Office Visit [facility] [address] [place] [address] Morbid obesity due to excess calories (HCC) (Primary Dx) 05/03/2017 11:00 AM EDT Office Visit [facility] [address] [place] [address] Ara Horn, FREDDY,CDE Morbid obesity, unspecified obesity type (HCC) (Primary Dx); Morbid obesity with BMI of 40.0-44.9, adult (HCC) 04/26/2017 Telephone [facility] [address] [facility] [address] [place] [address] Rojas Cunningham MD Other (MARY Lee ) 04/18/2017 2:00 PM EDT Office Visit [facility] [address] [place] [address] Duncan Choi MD Morbid obesity with BMI of 40.0-44.9, adult (HCC) (Primary Dx) 04/16/2017 4:30 PM EDT Office Visit [facility] [address] [place] [address] Morbid obesity due to excess calories (HCC) (Primary Dx) 04/06/2017 Telephone [facility] 1500 [facility] [address] [place] [address] Rojas Cunningham MD Other (U-500 patient) 04/03/2017 9:00 AM EDT Office Visit [facility] [address] [place] [address] Gila Winter APRN Morbid obesity [...] 11:59 PM EDT Hospital Encounter [facility] [address] [place] [address] Morbid obesity due to excess calories (HCC); Weight gain Discharge Disposition: Home or Self Care 03/30/2017 9:00 AM EDT Office Visit [facility] [address] [place] [address] Vika Hunter, PHD Other specified eating disorder (Primary Dx); Major depressive disorder, recurrent episode, in partial remission; Generalized anxiety disorder; No diagnosis on Wikie[place] II; Morbid obesity due to excess calories (HCC); BMI 40.0-44.9, adult (HCC) 03/26/2017 Telephone [facility] [address] [place] [address] Fernando Marielos TERESITA Burton Visit Follow Up (lab results) 03/19/2017 4:30 PM EDT Office Visit [facility] [address] [place] [address] Obesity (BMI 30-39.9) (Primary Dx) 03/13/2017 Orders Only [facility] [address] [place] [address] Gila Winter APRN Morbid obesity due to excess calories (HCC) (Primary Dx); Weight gain 03/12/2017 5:55 PM EDT - 03/12/2017 11:59 PM EDT Hospital Encounter [facility] [address] [place] [address] Weight gain; SATYA (obstructive sleep [...] Disposition: Home or Self Care 03/12/2017 Telephone [facility] [address] [place] [phone] Rojas Cunningham MD Medication Management 03/12/2017 4:30 PM EDT Office Visit [facility] [address] [place] [address] Weight gain (Primary Dx) 03/06/2017 Telephone [facility] [address] [place] [address] Rojas Cunningham MD Glucose Monitoring 03/06/2017 Telephone [facility] [address] [place] [phone] Rojas Cunningham MD Labs Only (question about labs) 03/06/2017 9:30 AM EDT Office Visit [facility] [address] [place] [address] Gila Winter APRN Weight gain [...] Hypocalcemia 03/06/2017 11:10 AM EDT Office Visit [address] [place] [address] Rojas Cunningham MD Uncontrolled type 2 diabetes mellitus without complication, with long-term current use of insulin ([facility]) (Primary Dx); Vitamin D deficiency; Post-surgical hypothyroidism 01/31/2017 4:00 PM EDT Office Visit [facility] [address] [place] [address] Gila Winter, ANJANA History of weight gain (Primary Dx); Morbid obesity due to excess calories (HCC); BMI 40.0-44.9, adult (HCC) 01/26/2017 6:00 PM EDT Office Visit [facility] [address] [place] [address] Morbid obesity due to excess calories (HCC) 01/26/2017 Telephone [facility] [address] [place] [address] Urmila Massey 01/26/2017 10:10 AM EDT Office Visit [facility] [address] [place] [address] Clif Granado MD Uncontrolled type 2 diabetes mellitus with complication, with long-term current use of insulin (HCC) (Primary Dx); Sleep apnea, unspecified type; Morbid obesity due to excess calories (HCC) 01/08/2017 Refill [facility] [address] [place] [address] Rojas Cunningham MD Medication Refill 01/02/2017 Telephone [facility] [address] [facility] [facility] [address] [place] [address] Belia Spence APRN Results 11/27/2016 Telephone [facility] [address] [facility] [address] [place] [address] Belia Spence APRN Results (labs) 11/27/2016 1:20 PM EST Office Visit [place] [address] [employer] [address] [place] [address] Belia Spence APRN Mixed dyslipidemia (Primary Dx); Uncontrolled type 2 diabetes mellitus with complication, with long-term current use of insulin (HCC); Post-surgical hypothyroidism; Follicular thyroid cancer (HCC); Essential hypertension; Sleep apnea, unspecified type; Vitamin D deficiency; Morbid obesity with BMI of 45.0-49.9, adult ([facility]) 10/31/2016 Telephone [facility] [address] [place] [address] Rojas Cunningham MD Labs Only 10/31/2016 Refill [facility] [address] [place] [address] Rojas Cunningham MD Medication Refill 10/06/2016 Telephone [facility] [address] [place] [address] Rojas Cunningham MD Cancellation 10/04/2016 Telephone [facility] [address] [facility] [address] [place] [address] Rojas Cunningham MD Labs Only 08/28/2016 Telephone [facility] [address] [place] [address] Rojas Cunningham MD Results 08/22/2016 1:10 PM EST - 08/22/2016 11:59 PM EST Hospital Encounter [facility] [address] [place] [address] Uncontrolled type 2 diabetes mellitus without complication, with long-term current use of insulin (HCC); Vitamin D deficiency; Mixed dyslipidemia; Post-surgical hypothyroidism; Follicular thyroid cancer (HCC) Discharge Disposition: Home or Self Care 08/22/2016 12:20 PM EST Office Visit [facility] [address] [place] [address] Rojas Cunningham MD Uncontrolled type 2 diabetes mellitus without complication, with long-term current use of insulin (HCC) (Primary Dx); Follicular thyroid cancer (HCC); Post-surgical hypothyroidism; Mixed dyslipidemia; Vitamin D deficiency; Statin intolerance 08/21/2016 Telephone [facility] [address] [place] [address] Rojas Cunningham MD Labs Only 08/18/2016 Telephone [facility] [address] [place] [address] Rojas Cunningham MD Labs Only (Reminder) 08/03/2016 Telephone [facility] [address] [facility] [address] [place] [address] Rojas Cunningham MD Results 07/25/2016 Telephone [facility] [address] [facility] [address] [place] [phone] Rojas Cunningham MD Results (Body Scan) 07/14/2016 6:35 AM EDT - 07/14/2016 11:59 PM EDT Hospital Encounter [facility] [address] [place] [address] Malignant neoplasm of thyroid gland (HCC) (Primary Dx); Follicular thyroid cancer (HCC) Discharge Disposition: Home or Self Care 07/13/2016 Telephone [facility] [address] [facility] [address] [place] [address] Rojas Cunningham MD Medical Release 06/02/2016 Telephone [facility] [address] [facility] [address] [place] [phone] Rojas Cunningham MD Results 06/02/2016 Telephone [facility] [address] [facility] [address] [place] [address] Rojas Cunningham MD Other (I-123 ) 05/29/2016 1:35 PM EDT - 05/29/2016 11:59 PM EDT Hospital Encounter [facility] [address] [place] [address] Diabetes mellitus type 2, uncontrolled (HCC); Vitamin D deficiency; Postablative hypothyroidism; History of thyroid cancer Discharge Disposition: Home or Self Care 05/29/2016 12:10 PM EDT Office Visit [facility] [address] [address] Rojas Cunningham MD Diabetes mellitus type 2, uncontrolled (HCC) (Primary Dx); Postablative hypothyroidism; History of thyroid cancer; Vitamin D deficiency 05/03/2016 Telephone [facility] [address] [facility] [address] [place] [phone] Rojas Cunningham MD Cancellation 02/03/2016 Telephone [facility] [address] [facility] [address] [place] [phone] Rojas Cunningham MD Other (paperwork for test strips) 01/19/2016 Refill [facility] [address] [place] [address] Rojas Cunningham MD Medication Refill 01/19/2016 10:40 AM EDT Office Visit [facility] [address] [place] [address] Rojas Cunningham MD Diabetes mellitus type 2, uncontrolled (HCC) (Primary Dx); Primary hypothyroidism; Vitamin D deficiency 01/10/2016 Telephone [facility] [address] [place] [address] Rojas Cunningham MD Labs Only 01/06/2016 Refill [facility] [address] [place] [address] Rojas Cunningham MD Medication Refill 01/04/2016 Telephone [facility] [address] [place] [address] Rojas Cunningham MD Procedure 12/15/2015 Telephone [facility] [address] [place] [address] Rojas Cunningham MD Other 12/10/2015 Telephone [facility] [address] [place] [address] Rojas Cunningham MD Cancellation 11/04/2015 Telephone [facility] [address] [place] [address] Rojas Cunningham MD Other (approval for [employer] [facility] [facility] [employer]) 09/16/2015 Telephone [facility] [address] [place] [address] Rojas Cunningham MD Lab Orders 09/16/2015 Refill [facility] [address] [place] [address] Rojas Cunningham MD Medication Refill 09/16/2015 Refill [facility] [address] [place] [address] Rojas Cunningham MD Medication Refill 08/26/2015 Telephone [place] [address] [place] [address] Rojas Cunningham MD Reschedule 07/15/[address] [place] [address] Rojas Cunningham MD Medication Management 06/22/2015 2:50 PM EDT Office Visit [place] [address] [place] [address] Rojas Cunningham MD Diabetes mellitus type 2, uncontrolled (HCC) (Primary Dx); Mixed dyslipidemia; Vitamin D deficiency 06/15/2015 Telephone [place] [address] [place] [address] Rojas Cunningham MD Labs Only 05/12/2015 Telephone [place] [address] [place] [address] Rojas Cunningham MD Reschedule; Labs Only 04/14/2015 Refill [place] [address] [place] [address] Rojas Cunningham MD Medication Refill 02/09/2015 Telephone [facility] [address] [place] [address] Rojas Cunningham MD Other (questions re:scripts) 02/09/2015 1:40 PM EDT Office Visit [facility] [address] [place] [address] Rojas Cunningham MD Diabetes mellitus type 2, uncontrolled (HCC) (Primary Dx); Mixed dyslipidemia; Thyroid nodule; Vitamin D deficiency; Statin intolerance 02/08/2015 Telephone [facility] [address] [place] [phone] Rojas Cunningham MD Labs Only 02/02/2015 Telephone [facility] [address] [place] [address] Rojas Cunningham MD Lab Orders 02/01/2015 Telephone [facility] [address] [place] [address] Rojas Cunningham MD Labs Only 01/15/2015 Telephone [facility] [address] [place], [place] [phone] Rojas Cunningham MD Reschedule 12/11/2014 Telephone [facility] [address] [place], [place] [phone] Rojas Cunningham MD Medication Refill 11/09/2014 Telephone [facility] [address] [place] [address] Rojas Cunningham MD Glucose Monitoring (BG logs) 11/03/2014 Telephone [facility] [address] [place] [address] Rojas Cunningham MD Medication Management 10/26/2014 Telephone [facility] [address] [place] [address] Rojas Cunningham MD Results 10/20/2014 1:20 PM EST [facility] Visit [facility] [place] [address] [place] [address] Rojas Cunningham MD Diabetes mellitus type 2, uncontrolled (HCC) (Primary Dx); Mixed dyslipidemia; Thyroid nodule; Vitamin D deficiency 10/15/2014 Telephone [place] [address] [place] [address] Rojas Cunningham MD Labs Only 10/13/2014 Telephone [place] [address] [place] [address] Rojas Cunningham MD Lab Orders 10/09/[address] [place] [address] Rojas Cunningham MD Labs Only 07/24/2014 Telephone [place] [address] [address] [place] [address] Rojas Cunningham MD Medication Management (U500 - resume) 07/16/2014 Telephone [place] [address] [address] [place] [address] Rojas Cunningham MD Medication Management 06/18/2014 Telephone [place] [address] [address] [place] [address] Juanita Sims, RD,LD,CDE Diabetes (I pro interpretation U 500 Vgo 20) 06/11/2014 Telephone [facility] [address] [place] [address] Shannan Wolfe, RN,CDE Other (scalp lesions) 06/11/2014 2:40 PM EDT Office Visit [place] [address] [address] [place] [address] Rojas Cunningham MD Diabetes mellitus type 2, uncontrolled (HCC) (Primary Dx); Mixed dyslipidemia; Vitamin D deficiency 06/04/2014 Telephone [facility] [address] [place] [phone] Rojas Cunningham MD Medication Refill 05/29/2014 Telephone [facility] [address] [place] [phone] Rojas Cunningham MD Other (Pt.Asst/Senia) 05/13/2014 Telephone [facility] [address] [place] [phone] Rojas Cunningham MD Glucose Monitoring 04/22/2014 Telephone [facility] [address] [place], [place] [phone] Rojas Cunningham MD Other (Vgo/U500) 04/13/2014 Telephone [facility] [address] [place] [phone] Rojas Cunningham MD Medication Management (Krys Cares form) 04/07/2014 Telephone [facility] [address] [place] [phone] Shannan Keita, FREDDY,CDE Other 03/27/2014 Refill [facility] [address] [place] [phone] Rojas Cunningham MD Medication Refill 03/19/2014 1:30 PM EDT Office Visit [facility] [address] [address] Boris May MD Diabetes mellitus type 2, uncontrolled (HCC) (Primary Dx); Myopic astigmatism, bilateral; Presbyopia OU; Dry eyes, bilateral 03/17/2014 3:00 PM EDT Office Visit [facility] [place] [phone] Chris Serra MD Mixed dyslipidemia (Primary Dx); Hypertension; Chest pain 03/16/2014 Telephone [facility] [address] [place] [phone] Rojas Cunningham MD Medication Management 03/12/2014 Telephone [facility] [address] [place], [place] [phone] Rojas Cunningham MD Results 03/10/2014 12:00 PM EDT Office Visit [address] [employer] [address] [place] [address] Rojas Cunningham MD Diabetes mellitus type 2, uncontrolled (HCC) (Primary Dx); Mixed dyslipidemia; Thyroid nodule; Vitamin D deficiency 03/05/2014 Telephone [facility] [address] [place], [place] [phone] Shannan Wolfe, RN,CDE Diabetes; Glucose Monitoring 03/04/2014 Telephone [facility] [address] [place] [address] Rojas Cunningham MD Other ([facility] lab orders) 03/04/2014 Telephone [facility] [address] [place] [address] Selma Kruger, RN,CDE Diabetes (question) 03/03/2014 Telephone [facility] [address] [place] [phone] Rojas Cunningham MD Other (calling in BS) 02/16/2014 Telephone [facility] [address] [place] [phone] Rojas Cunningham MD Labs Only 02/11/2014 Telephone [facility] [address] [facility] [address] [place] [address] Rojas Cunningham MD Medication Management 02/10/2014 Telephone [facility] [address] [facility] [address] [place] [address] Priscilla Patel RN,CDE Insulin Titration (U500 start) 02/10/2014 11:20 AM EDT Office Visit [address] [facility] [address] [place] [address] Rojas Cunningham MD Diabetes mellitus type 2, uncontrolled (HCC) (Primary Dx); Mixed dyslipidemia; Thyroid nodule; Vitamin D deficiency 01/30/2014 3:35 PM EDT - 01/30/2014 11:59 PM EDT Hospital Encounter [facility] [address] [place] [address] Vitamin D deficiency (Primary Dx); Diabetes mellitus type 2, uncontrolled (HCC); Thyroid nodule; Mixed dyslipidemia Discharge Disposition: Home or Self Care 01/30/2014 Telephone [place] [address] [address] [place] [address] Rojas Cunningham MD Samples (Levemir/Novolog) 01/28/2014 Telephone [place] [address] [place] [address] Rojas Cunningham MD Reschedule 12/26/2013 Telephone [facility] [address] [facility] [address] [place] [address] Rojas Cunningham MD Medication Management 12/25/2013 Telephone [facility] [address] [facility] [address] [place] [address] Rojas Cunningham MD Glucose Monitoring (download meter) 12/25/2013 Telephone [facility] [address] [facility] [address] [place] [address] Rojas Cunningham MD Samples (Levemir/Novolog) 12/16/2013 Telephone [facility] [address] [employer] [facility] [address] [place] [address] Rojas Cunningham MD Medication Management 12/11/2013 [place] [address] Chris Serra MD Medication Refill 12/11/2013 [place]phone [place] [address] Chris Serra MD No Show 11/21/2013 Telephone [facility] [address] [employer] [facility] [address] [place], [place] [phone] Rojas Cunningham MD Glucose Monitoring 11/19/2013 Telephone [facility] [address] [employer] [facility] [address] [place], [place] [phone] Rojas Cunningham MD Medication Management 11/03/2013 Telephone [facility] [address] [employer] [facility] [address] [place] [address] Rojas Cunningham MD Medication Refill 10/31/2013 Telephone [facility] [address] [email or web address] [address] [place], [place] [phone] Rojas Cunningham MD Reschedule 10/07/2013 11:20 AM EST Office Visit [facility] [address] [place] [address] Rojas Cunningham MD Diabetes mellitus type 2, uncontrolled (HCC) (Primary Dx); Mixed dyslipidemia; Vitamin D deficiency; Thyroid nodule 09/29/2013 12:25 PM EST - 09/29/2013 11:59 PM EST Hospital Encounter [facility] [address] [place] [address] Hyperlipidemia (Primary Dx); Diabetes mellitus type 2, uncontrolled (HCC); Thyroid nodule; Hypovitaminosis D Discharge Disposition: Home or Self Care 09/29/2013 Telephone [place] [address] [place] [phone] Rojas Cunningham MD Other (downloaded meter) 09/23/2013 Orders Only [place] [address] [place] [address] Annie Han, mason liner mellitus type 2, uncontrolled (HCC) (Primary Dx) 09/23/2013 Telephone [place] [address] [place] [address] Rojas Cunningham MD Medication Refill (URGENT) 09/08/2013 Telephone [place] [address] [address] [place] [address] Rojas Cunningham MD Other (blood sugar logs) 08/20/2013 Telephone [place] [address] [place] [address] Rojas Cunningham MD Results 08/14/2013 12:25 PM EST - 08/14/2013 11:59 PM EST Hospital Encounter [place] [address] [place] [address] Diabetes mellitus type 2, uncontrolled (HCC) (Primary Dx); Vitamin D deficiency; Mixed hyperlipidemia Discharge Disposition: Home or Self Care 08/14/2013 11:40 AM EST Office Visit [place] [address] [place] [address] Rojas Cunningham MD Diabetes mellitus type 2, uncontrolled (HCC) (Primary Dx); Mixed hyperlipidemia; Vitamin D deficiency 08/11/2013 Telephone [place] [address] [place] [address] Rojas Cunningham MD Labs Only 08/06/2013 Refill [facility] [address] [address] Chris Serra MD Medication Refill 07/16/2013 Refill [place] [address] [place] [address] Rojas Cunningham MD Medication Refill 07/15/2013 Refill [place] [address] [place] [address] Rojas Cunningham MD Medication Refill 07/15/2013 Refill [facility] Neurology [facility] [address] [place] [address] Joe Ambrosio MD Medication Refill 07/08/[address] [address] Lm EmeraldTANIKA 07/02/2013 5:00 PM EDT Office Visit [address] [address] Boris Sarmiento MD Leg cramps (Primary Dx) 07/02/2013 12:50 PM EDT Office Visit [place] [address] [place] [address] Rojas Cunningham MD Diabetes mellitus type 2, uncontrolled (HCC) (Primary Dx); Vitamin d deficiency; Mixed hyperlipidemia 07/01/2013 Telephone [place] [address] [place] [address] Rojas Cunningham MD Follow-up 06/23/2013 2:40 PM EDT - 06/25/2013 2:37 PM EDT Hospital Encounter [facility] [place] [address] Boris Rodriguez MD Pilger, Jeffrey M, MD Upadhayay, Niraj, MD Hypertensive urgency (Primary Dx); Chest pain; Paresthesia; Sleep apnea; Diabetes mellitus type 2, uncontrolled (HCC); Facial droop; Fibromyalgia; Hyperlipidemia; Angina at rest; Hypertension; Unspecified essential hypertension; Chest pain, unspecified; Disturbance of skin sensation Discharge Disposition: Home or Self Care 06/23/2013 Telephone [facility] [place] [address] [place] [address] Chris Serra MD Edema; Pain (neck/shoulder) 06/10/2013 9:15 AM EDT Office Visit [facility] [address] [address] [place] [address] Chris Serra MD Hyperlipidemia (Primary Dx); Hypertension; CHF (congestive heart failure) (HCC); Chest pain; Left sided numbness; Other screening mammogram 04/17/2013 11:30 AM EDT - 04/17/2013 11:59 PM EDT Hospital Encounter [facility] [address] [place] [phone] Emre Houston MD Sleep apnea (Primary Dx); Fibromyalgia; Hyperlipidemia; Diabetes mellitus type 2, uncontrolled (HCC); Hypertension; Obesity; Chest pain; Left sided numbness; CHF (congestive heart failure) (HCC) Discharge Disposition: Home or Self Care 04/16/2013 Telephone [facility] [place] [address] [place] [address] Asha Ambrocio MA Other 03/28/2013 11:20 AM EDT Office Visit [facility] [address] [place] [address] [place] [address] Boris Sarmiento MD Abscess of groin, left (Primary Dx) 02/18/2013 Refill [facility] [address] [address] Chris Serra MD Medication Refill 02/18/2013 Refill [facility] [place] [address] Lonnie Dotson MD Medication Refill 02/06/2013 9:20 AM EDT Office Visit [facility] [address] [place] [address] [place] [address] Boris Sarmiento MD Sore throat (Primary Dx); Cervical lymphadenopathy; Viral gastroenteritis 01/22/2013 1:15 PM EDT Office Visit [facility] [place] [address] [place] [address] Chris Serra MD Hypertension (Primary Dx); CHF (congestive heart failure) (HCC); Hyperlipidemia; Fibromyalgia; Chest pain 01/14/2013 Telephone [facility] [place] [facility] [address] [place] [address] [place] [address] Boris Sarmiento MD Visit Follow Up 01/10/2013 11:10 AM EDT Office Visit [facility] [place] [facility] [address] [place] [address] [place] [address] Boris Sarmiento MD Diabetes mellitus type 2, uncontrolled (HCC) (Primary Dx); Hypertension; Hyperlipidemia; CHF (congestive heart failure) (HCC); Headache 01/01/2013 6:05 PM EDT - 01/05/2013 1:55 PM EDT Hospital Encounter [facility] 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 [address] Rojas Cunningham MD Labs Only 11/14/2012 Telephone [facility] [address] [place] [address] Rojas Cunningham MD Wound Infection 09/25/2012 Telephone [facility] [address] [place] [address] Rojas Cunningham MD Other (report blood sugar) 09/24/2012 9:00 AM EST - 09/24/2012 11:59 PM EST Hospital Encounter [facility] [address] [place] [address] Emre Houston MD Sleep apnea (Primary Dx); Fibromyalgia; Hyperlipidemia; Diabetes mellitus type 2, uncontrolled (HCC); Hypertension; Obesity Discharge Disposition: Home or Self Care 09/13/[address] [facility] Diabetes [place] [address] [place] [address],CDE Other (bs logs) 09/06/[address] [facility] Diabetes [place] [address] [place] [address],LD,CDE Diabetes (U 500) 08/26/[address] [facility] Diabetes [place] [address] [place] [address] Rojas Cunningham MD Medication Problem 08/13/[address] [facility] Diabetes [place] [address] [place] [address] Rojas Cunningham MD Medication Management 08/12/[address] [facility] Diabetes [place] [address] [place] [address] Willa Genao RN,CDE Medication Management 08/12/[address] [facility] Diabetes [place] [address] [place] [address] Willa Genao RN,CDE Medication Management 08/12/2012 11:00 AM EST Office Visit [facility] Diabetes [place] [address] [address] Rojas Cunningham MD Diabetes mellitus type 2, uncontrolled (HCC) (Primary Dx); Vitamin d deficiency; Hyperlipidemia; Thyroid nodule 08/09/2012 1:40 PM EDT - 08/09/2012 11:59 PM EDT Hospital Encounter [facility] [address] [place] [phone] Diabetes mellitus type 2, uncontrolled (HCC); Hyperlipidemia; Vitamin d deficiency Discharge Disposition: Home or Self Care 08/06/[address] [facility] Diabetes [facility] [address] [place] [address] Rojas Cunningham MD Labs Only 07/31/[address] [facility] Diabetes [facility] [address] [place] [address],LD,CDE Diabetes (blood sugar logs) 07/23/[address] [facility] Diabetes [facility] [address] [place] [address] Shannan Wolfe RN,CDE Other 07/15/2012 7:10 PM EDT - 07/15/2012 10:48 PM EDT Emergency [place] [address] Billie Bueno MD Abdominal pain, other specified site; Vomiting alone; Unspecified essential hypertension; Type II or unspecified type diabetes mellitus without mention of complication, not stated as uncontrolled (HCC) Discharge Disposition: Home or Self Care 06/25/[address] [facility] Diabetes [facility] [address] [place] [address] Shannan Wolfe RN,CDE Diabetes 06/25/2012 9:45 AM EDT - 06/25/2012 11:59 PM EDT Hospital Encounter [facility] Sleep Disorder [address] [place] [address] Emre Houston MD Sleep apnea (Primary Dx); Fibromyalgia; Hyperlipidemia; Diabetes mellitus type 2, uncontrolled (HCC); Hypertension; Obesity Discharge Disposition: Home or Self Care 06/16/2012 11:47 AM EDT - 06/16/2012 12:21 PM EDT Emergency [facility] [address] [place] [address] [place] [address] Sadi Joe MD Plantar fasciitis; Peripheral neuropathy Discharge Disposition: Home or Self Care 06/05/2012 Telephone [place] [address] [place] [address] Rojas Cunningham MD Other (error) 06/04/2012 Telephone [place] [address] [place] [address] Willa Genao, RN,CDE Blood Sugar Problem 05/30/2012 Telephone [facility] [address] [place] [address] Shannan Wolfe RN,CDE Blood Sugar Problem 05/22/2012 Telephone [place] [address] [address] [place] [phone] Willa Genao RN,CDE Other (Order new test strips) 05/22/2012 Telephone [place] [address] [place] [address] Willa Genao RN,CDE Medication Management 05/01/2012 Telephone [place] [address] [place] [address] Rojas Cunningham MD Results 04/28/2012 7:00 PM EDT - 04/28/2012 11:59 PM EDT Hospital Encounter [facility] [place] [address] Obstructive sleep apnea (Primary Dx) Discharge Disposition: Home or Self Care 04/25/2012 12:32 PM EDT - 04/25/2012 11:59 PM EDT Hospital Encounter [facility] [place] [address] Tristan Ron MD Dysphagia Discharge Disposition: Home or Self Care 04/23/2012 9:14 AM EDT - 04/23/2012 11:59 PM EDT Hospital Encounter [facility] Sleep Disorder [address] [address] Emre Houston MD Sleep apnea (Primary Dx); Obesity; Fibromyalgia; Diabetes mellitus type 2, uncontrolled (HCC); Hypertension; Poor sleep hygiene Discharge Disposition: Home or Self Care 04/18/2012 Telephone [facility] [address] [place] [address] SadieAimee montano TERESITA Results 04/15/2012 9:00 AM EDT - 04/15/2012 11:59 PM EDT Hospital Encounter [facility] [address] [facility] [place] [address] Tristan Ron MD Thyroid mass Discharge Disposition: Home or Self Care 04/10/2012 7:00 PM EDT - 04/10/2012 11:59 PM EDT Hospital Encounter [facility] Sleep Disorder [address] [place] [address] Obstructive sleep apnea (Primary Dx) Discharge Disposition: Home or Self Care 04/09/2012 Telephone [facility] [address] [place] [address] Tiffany England, [facility] Medication Management 04/09/2012 9:45 AM EDT - 04/09/2012 11:59 PM EDT Hospital Encounter [facility] Sleep Disorder [address] [place] [address] Emre Houston MD Discharge Disposition: Home or Self Care 04/08/2012 8:37 AM EDT - 04/08/2012 11:59 PM EDT Hospital Encounter [facility] [address] [facility] [place] [address] Joe Ambrosio MD Dysarthria; Facial weakness Discharge Disposition: Home or Self Care 04/03/2012 10:35 AM EDT - 04/03/2012 11:59 PM EDT Hospital Encounter [facility] [address] [place] [address] Diabetes mellitus type 2, uncontrolled (HCC); Vitamin D deficiency; FHx: early coronary artery disease; Thyroid nodule Discharge Disposition: Home or Self Care 04/03/2012 9:40 AM EDT Office Visit [facility] [address] [place] [address] Rojas Cunningham MD Diabetes mellitus type 2, uncontrolled (HCC) (Primary Dx); Thyroid nodule; Vitamin D deficiency; FHx: early coronary artery disease 04/02/2012 10:50 AM EDT - 04/02/2012 11:59 PM EDT Hospital Encounter [facility] [address] [place] [phone] Diabetes mellitus type 2, uncontrolled (HCC); Hyperlipidemia; Hypertension; Obesity; Thyroid nodule Discharge Disposition: Home or Self Care 04/01/2012 Telephone [facility] [place] [address] [place] [address] Joe Ambrosio MD Medication Change 04/01/2012 Telephone [place] [address] [place] [address] Rojas Cunningham MD Labs Only 04/01/2012 11:00 AM EDT Office Visit [facility] [place] [address] [place] [address] Joe Ambrosio MD Migraine; Obesity; Fibromyalgia; Hypertension; Diabetes mellitus type 2, uncontrolled (HCC); Hyperlipidemia; Sleep apnea; Dysarthria; Facial weakness 02/29/2012 Telephone [place] [address] [place] [address] Ara Howell APRN Medication Management (?refill for Bentyl?) 02/19/2012 2:32 PM EDT - 02/19/2012 5:35 PM EDT Emergency [place] [address] Kyle Cortez MD Gastroenteritis Discharge Disposition: Home or Self Care 02/13/2012 11:12 AM EDT - 02/13/2012 11:59 PM EDT Hospital Encounter [facility] [address] [place] [address] Georgette Isbell Demyelinating disease of central nervous system, unspecified (HCC) Discharge Disposition: Home or Self Care 02/01/2012 1:15 PM EDT - 02/01/2012 11:59 PM EDT Hospital Encounter [facility] [address] [place] [address] Arely Karimi MD Sarcoidosis Discharge Disposition: Home or Self Care 01/31/2012 Telephone [place] [address] [place] [address] Armando Chaves MD Release of Information 01/24/2012 1:00 PM EDT Office Visit [facility] Diabetes [place] [address] [place] [address] Juanita Schuster, RD,LD,CDE Diabetes mellitus type 2, uncontrolled (HCC) (Primary Dx) 01/11/2012 Telephone [place] [address] [place] [address] Armando Chaves MD Results 01/11/2012 1:30 PM EDT Office Visit [place] [address] [place] [address] Michela Morton, RN,CDE Diabetes mellitus type 2, uncontrolled (HCC); Hyperlipidemia; Hypertension; Obesity; Thyroid nodule 01/05/2012 Telephone [place] [address] [place] [address] Armando Chaves MD Medication Refill 01/05/2012 Telephone [place] [address] [place] [address] Ara Howell, MERCHANDISE COMPLAINT ADJUSTER Results 01/04/2012 11:05 AM EDT - 01/04/2012 11:59 PM EDT Hospital Encounter [facility] [address] [place] [phone] Diabetes mellitus type 2, uncontrolled (HCC); Hyperlipidemia; Hypertension; Obesity; Hot flashes Discharge Disposition: Home or Self Care 12/29/2011 Telephone [facility] [address] [place] [address] Tanvi Guy Referral (Diabetes Education) 12/28/2011 3:10 PM EDT Office Visit [place] [address] [place] [address] Ara Howell APRN Diabetes mellitus type 2, uncontrolled (HCC); Hyperlipidemia; Hypertension; Obesity; Thyroid nodule 12/26/2011 Telephone [place] [address] [place] [address] Armando Chaves MD Labs Only 11/22/2011 9:55 AM EST - 11/22/2011 11:59 PM EST Hospital Encounter [facility] [place] [address] AkilahGeorgette Yadav Chest pain, unspecified Discharge Disposition: Home or Self Care 11/09/2011 10:14 PM EST - 11/10/2011 2:20 AM EST Emergency [facility] [address] [facility] [place] [address] Cal Pate MD Abdominal pain Discharge Disposition: Home or Self Care 11/02/2011 Telephone [place] [address] [place] [address] Harper Mcgrath MD Follow-up 09/15/2011 7:30 AM EST - 09/15/2011 11:59 PM EST Hospital Encounter [facility] Hand Therapy [address] [address] Emerald Yan PT CHT Discharge Disposition: Home or Self Care 09/11/2011 Telephone [place] [address] [place] [address] Michela Morton, RN,CDE Other (log) 08/25/2011 1:00 PM EST - 08/25/2011 11:59 PM EST Hospital Encounter [facility] [place] [address] Tristan Ron MD Thyroid mass Discharge Disposition: Home or Self Care 08/24/2011 Telephone [place] [address] [place] [address] Michela Morton, RN,CDE Other (log) 08/18/2011 8:40 AM EST Office Visit [facility] Diabetes [facility] [address] [place] [address] Harper Mcgrath MD Diabetes mellitus type 2, uncontrolled (HCC) (Primary Dx); Hyperlipidemia; Hypertension; Obesity; Hot flashes 08/16/2011 1:45 PM EST - 08/16/2011 11:59 PM EST Hospital Encounter [facility] [address] [place] [address] Tristan Ron MD Thyroid mass Discharge Disposition: Home or Self Care 07/25/2011 1:30 PM EDT Office Visit [facility] Diabetes [facility] [address] [place] [address] Michela Morton RN,CDE Diabetes mellitus type 2, uncontrolled (HCC) 07/18/2011 1:30 PM EDT Office Visit [facility] Diabetes [facility] [address] [place] [address] Michela Morton RN,CDE Diabetes mellitus type 2, uncontrolled (HCC) (Primary Dx) 07/11/2011 1:30 PM EDT Office Visit [facility] Diabetes [facility] [address] [place] [address],LD,CDE Diabetes mellitus type 2, uncontrolled (HCC) (Primary Dx) 07/06/2011 8:45 AM EDT - 07/06/2011 9:00 AM EDT Surgery [facility] [place] [address] [address] Edyta Chun MD CARPAL TUNNEL RELEASE 07/06/2011 5:45 AM EDT - 07/06/2011 9:05 AM EDT Hospital Encounter [facility] [place] [place] [address] Edyta Chun MD Discharge Disposition: Home or Self Care 06/27/[address] [facility] Diabetes [facility] [address] [place] [address] Rachael Carvalho RN Blood Sugar Problem 06/27/2011 10:10 AM EDT Office Visit [facility] Diabetes [facility] [address] [place] [address],CDE Diabetes mellitus type 2, uncontrolled (HCC) 06/14/2011 10:45 AM EDT - 06/14/2011 11:59 PM EDT Hospital Encounter [facility] [place] [address] Hyperlipidemia; Hypertension; Hot flashes; Diabetes mellitus type 2, uncontrolled (HCC) Discharge Disposition: Home or Self Care 05/31/2011 9:00 AM EDT Office Visit [facility] Diabetes [facility] [address] [place] [address] Harper Mcgrath MD Diabetes mellitus type 2, uncontrolled (HCC) (Primary Dx); Hot flashes; Hyperlipidemia; Hypertension; Obesity 05/25/2011 3:11 PM EDT - 05/25/2011 11:59 PM EDT Hospital Encounter [facility] [address] [place] [address] Mendel Resendiz DO Carpal tunnel syndrome Discharge Disposition: Home or Self Care 05/25/2011 1:55 PM EDT - 05/25/2011 3:10 PM EDT Hospital Encounter [facility] [address] [place] [address] Mendel Resendiz DO Disturbance of skin sensation; Blurred vision; Urinary incontinence Discharge Disposition: Home or Self Care 05/11/2011 1:46 PM EDT - 05/11/2011 11:59 PM EDT Hospital Encounter [facility] [address] [place] [address] Wiley Garza MD Stone Discharge Disposition: Home or Self Care 05/11/2011 1:45 PM EDT Hospital Encounter [facility] [address] [place] [address] Wiley Garza MD Back pain; History of kidney stones; Flank pain Discharge Disposition: Home or Self Care 12/27/2010 1:45 PM EDT - 12/27/2010 2:40 PM EDT Surgery [facility] [address] [place] [address] Wiley Garza MD CYSTOSCOPY BLADDER /URETHRA BIOPSY 12/27/2010 11:49 AM EDT - 12/27/2010 4:57 PM EDT Hospital Encounter [facility] SAME DAY [facility] [address] [place] [facility] [phone] Wiley Garza MD Discharge Disposition: Home or Self Care 12/23/2010 10:00 AM EDT - 12/23/2010 11:59 PM EDT Hospital Encounter [facility] PRE-ADMIT TEST[facility] [address] [place] [facility] [phone] Pat, [facility] Discharge Disposition: Home or Self Care 11/29/2010 9:11 AM EST - 11/29/2010 11:59 PM EST Hospital Encounter [facility] [address] [place] [facility] [phone] Mendel Resendiz, Pyelonephritis, unspecified; Abdominal pain, unspecified site; Abdominal pain, right upper quadrant; Other abnormal blood chemistry Discharge Disposition: Home or Self Care 11/25/2010 12:37 AM EST - 11/25/2010 3:54 AM EST Emergency [place] [facility] [address] [place] [facility] [phone] Mahesh Page MD Pyelonephritis; Elevated liver function tests; Abdominal pain, right upper quadrant; Right flank pain Discharge Disposition: Home or Self Care 11/11/2010 2:30 PM EST - 11/11/2010 11:59 PM EST Hospital Encounter [facility] [address] [place] [address] Wiley Garza MD Pain Discharge Disposition: Home or Self Care 07/18/2010 2:43 PM EDT - 07/19/2010 6:44 PM EDT Hospital Encounter [facility] [address] [place] [address] Mahesh Page MD Laib, Emily A, MD [...] 09/19/1994 7:27 PM EST Hospital Encounter [facility] [address] [place], [place] [address]Griselda MD 09/15/1994 12:33 PM EST - 09/15/1994 11:59 PM EST Hospital [facility] 08/30/1994 10:59 AM EST - 08/30/1994 4:50 PM EST [facility] 08[facility]11/1994 5:37 AM EST - 08/11/1994 11:59 PM EST [facility] 07/25/1994 5:52 AM EDT - 07/25/1994 11:59 PM EDT Hospital Encounter [facility] 05/09/1994 10:12 PM EDT [...] CITRATE + D ORAL) Take by mouth. Acti ve mupirocin (BACTROBAN) 2 % Nasl Ointment by Nasal route 2 times daily. Active L GASSERI/B BIFIDUM/B LONGUM (Rapportive HEALTH ORAL) Take by mouth. Ac tive [...] 18 Active fluticasone (FLONASE) 50 mcg/actuation Nasl [place], Suspension 06/25/20 18 Active EPINEPHrine (EPIPEN) 0.3 [...] slipidemia associated with type 2 diabetes mellitus ([facility]) 1 Each by [facility].(Non-Drug; Combo Route) route 4 times daily. 150 Each 02/16/20 Active Insulin [place], Disposable, (SAMMIE PEN NEEDLE) 32 gauge x [facility] NeedleIndications: Dyslipidemia associated with type 2 diabetes mellitus ([facility]) Use as directed to inject insulins 4 times daily 120 Each 05/09/20 Active ONETOUCH VERIO TEST STRIPS [facility] StripIndications:D yslipidemia associated with type 2 diabetes [...] hyperglycemia, with long-term current use of insulin ([facility]) Subcutaneous (Inject under the skin) 0.5 [...] lipidemia associated with type 2 diabetes mellitus ([facility]) INJECT 60 UNITS UNDER THE SKIN EVERY [...] 24 Active Blood-Glucose Sensor (DEXCOM G7 SENSOR) [facility] DeviceIndications: Dyslipidemia associated with type 2 diabetes mellitus (HCC) 1 Each by [facility].(Non-Drug; Combo Route) route every 10 days. 08/26/20 [...] dyslipidemia 10/07/2013 Overview (10/31/2019): Managed by Endocrinology. Ghanaian Score of 4 Has Fhx od premature [...] Me Social History Smoking Status as of 09/12/2025 Tobacco Use Types Packs/Day Years Used Date [...] 01/07/2026 3:40 PM EDT Office Visit [facility] [place] [address] [facility] [address] [place] [address] Rojas Cunningham MD [address] [facility] [address] [place] [address] Procedures Procedure Name Priority Date/Time [...] PANEL Routine 11/13/2018 9:56 AM EST ZINC LEVEL - REF LAB Routine 07/05/2018 12:00 PM [...] Encounter for vitamin deficiency screening COPPER LEVEL - REF LAB Routine 07/05/2018 12:00 PM EDT S/P laparoscopic sleeve gastrectomy Postsurgical malabsorption Encounter for vitamin deficiency screening SCANNED LABS 06/27/2018 10:39 AM EDT MISCELLANEOUS LAB Routine 06/12/2018 Uncontrolled type 2 diabetes mellitus with complication, with long-term current use of insulin ([facility]) Vitamin D deficiency Mixed dyslipidemia C-REACTIVE [...] complication, with long-term current use of insulin ([facility]) Vitamin D deficiency Mixed dyslipidemia ZINC LEVEL - REF LAB Routine 01/02/2018 8:52 AM EDT Follicular [...] SCANNED LABS 03/15/2017 10:15 AM EDT ZINC LEVEL - REF LAB Routine 03/12/2017 6:04 PM EDT Pre-operative [...] CA, DM. Father with CVA,dementia, ASHD s/p VA, HTN and HLD CARD.SURG: none CARD. RISK FACTORS: HTN, DM, ASHD and HLD LHC with FFR on 01/03/13 Following completion of the diagnostic procedure, fractional flow reserveassessment of the mid left anterior descending artery was performed. 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 Chest [...] TUNNEL RELEASE performed by EDYTA CHUN at [facility] Family History Problem Relation Age of [...] injection 5-10 mg 5-10 mg Intravenous Q3H PRNGanigiuseppe, Boris Lambert MD senna-docusate (SENOKOT-S) 8.6-50 mg per tablet 1 Tab 1 Tab OralNightly PRN Arehart, Abril, MERCHANDISE COMPLAINT ADJUSTER acetaminophen (TYLENOL) tablet 650 mg 650 mg Oral Q4H PRN Arehart,Abril, MERCHANDISE COMPLAINT ADJUSTER Or acetaminophen (TYLENOL) suppository 650 mg 650 mg Rectal Q4H PRNArehart, Abril, MERCHANDISE COMPLAINT ADJUSTER Sodium Chloride 0.9 % Syrg 5 mL 5 mL Intravenous Q8H GUILLERMO Arehart, Abril,MERCHANDISE COMPLAINT ADJUSTER 5 mL at 06/24/13 0515 And Sodium Chloride 0.9 % Syrg 5 mL 5 mL Intravenous PRN Arehart, Abril,MERCHANDISE COMPLAINT ADJUSTER dextrose solution 25 mL 25 mL Intravenous PRN Arehart, Abril, MERCHANDISE COMPLAINT ADJUSTER glucagon (human recombinant) (GLUCAGEN) injection 1 mg 1 mgIntramuscular PRN Arehart, Abril, MERCHANDISE COMPLAINT ADJUSTER insulin aspart (NovoLOG) injection 1-10 Units 1-10 Units SubcutaneousQID WM Arehart, Abril, MERCHANDISE COMPLAINT ADJUSTER 4 Units at 06/24/13 0945 albuterol (PROVENTIL HFA; VENTOLIN HFA) INHALER 2 Puff 2 PuffInhalation Q6H PRN Arehart, Abril, MERCHANDISE COMPLAINT ADJUSTER aspirin tablet 325 mg 325 mg Oral Daily Arehart, Abril, MERCHANDISE COMPLAINT ADJUSTER 325 mg at06/24/13 0945 atorvastatin (LIPITOR) tablet 10 mg 10 mg Oral Nightly Arehart, Abril,MERCHANDISE COMPLAINT ADJUSTER 10 mg at 06/23/13 2245 DULoxetine (CYMBALTA) capsule 60 mg 60 mg Oral BID Arehart, Abril, APRN60 mg at 06/24/13 0945 pantoprazole (PROTONIX) tablet 40 mg 40 mg Oral BID Arehart, Abril, APRN40 mg at 06/24/13 0945 nitroGLYCERIN (NITROSTAT) SL tablet 0.4 mg 0.4 mg Sublingual Q5 Min PRNArehart, Abril, MERCHANDISE COMPLAINT ADJUSTER topiramate (TOPAMAX) tablet 200 mg 200 mg Oral Nightly Arehart, Abril,MERCHANDISE COMPLAINT ADJUSTER topiramate (TOPAMAX) tablet 150 mg 150 mg Oral Daily Arehart, Abril,MERCHANDISE COMPLAINT ADJUSTER 150 mg at 06/24/13 0945 Allergies Allergen [...] note is in progress. Consult dictated # [id number] Symptoms likely related to migraine. MRI shows [...] note is in progress. Consult dictated # [id number] Symptoms likely related to migraine. MRI shows no acute CVA. No significant vascular disease on MRA. CUS fromlast summer was (-). Would continue ASA, management of vascular risk factors. OK for dischargewhen otherwise medically stable. Thank you. POCT ACTIVATED CLOTTING TIME Routine 01/03/2013 9:47 AM EDT GAMMA FACILITIES OPERATOR PROCEDURE LOG Routine 01/03/2013 9:22 AM EDT CARDIAC PROCEDURE-GAMMA FACILITIES OPERATOR ONLY 01/03/2013 8:53 AM EDT chest [...] 2:58 PM EDTThis note is in progress. [facility] Cardiology Consultation ADMISSION: 01/02/2013 PATIENT: Angeles Pope [id number] PCP: No primary provider on file. I [...] 200 Syringe 11 Lancets (ONE TOUCH DELICA) [facility] Please dispense 1 box of lancets every30 [...] TUNNEL RELEASE performed by EDYTA CHUN at [facility] Allergy Allergies Allergen Reactions Tawnya Inhibitors Shortness [...] Alcohol Use: No Review of Systems Per [facility] nursing notes ,remainder of ROS [...] most recent cardiovascular imaging studies availabe in [facility] EMR werereviewed at time of [...] 9:16 AM EDT Dysarthria Facial weakness ZINC LEVEL - REF LAB Routine 04/03/2012 10:39 AM EDT Diabetes [...] Routine 01/04/2012 11:29 AM EDT VITAMIN D, [id number] Routine 01/04/2012 11:29 AM EDT Diabetes mellitus [...] 12 LEAD STAT 11/09/2011 10:53 PM EST NON-ENGINE WATCHMAN CYTOLOGY REPORT Routine 08/25/2011 2:39 PM EST [...] EDT Same as pre-op Special Needs ROSENDA CPT:82527 CYSTOSCOPY BLADDER /URETHRA BIOPSY 12/27/2010 2:16 PM EDT Same as pre-op Special Needs ROSENDA CPT:58019 US ABDOMEN LIMITED Routine 11/29/2010 10:26 AM [...] Re sult - Final Performing Organization Address City/[facility]/ZIP Co de Phone Number SEP OFFICE * [...] R esult Performing Organization Address City/[facility] Co de Phone Number SEP OFFICE * MICROALBUMIN/CREATININE RATIO URINE (05/06/2024) Only the most recent of10 resultswithin the time period is included. Albumin, Ur <6.000 <=31 MG/L SEP OFFICE Comment:0-16.7 Urine URINE SPECIMEN COLLECTION / Unknown 05/06/2024 Historical Provider URINE ORDERABLES Final Resul t Performing Organization Address [facility] [place] [facility] de Phone Number SEP OFFICE * THYROGLOBULIN -REF LAB (05/06/2024) Only the most recent of3 resultswithin the time period is included. Thyroglobulin <0.1 NG/ML SEP OFFICE Comment:1.5-38.5 Blood VENOUS BLOOD / Unknown 05/06/2024 Historical Provider CHEMISTRY ORDERABLES Edited Result - Final Performing Organization Address [facility] de Phone Number SEP OFFICE * THYROGLOBULIN ANTIBODY -REF LAB (05/06/2024) Only the most recent of3 resultswithin the time period is included. Thyroglobulin <1.0 NG/ML SEP OFFICE Comment:0.0-0.90 Blood VENOUS BLOOD / Unknown 05/06/2024 Historical Provider IMMUNOLOGY ORDERABLES Final Result Performing Organization Address City/[facility] Co de Phone Number SEP OFFICE * C-REACTIVE PROTEIN (05/06/2024) Only the most recent of33 resultswithin the time period is included. CRP 10 MG/L SEP OFFICE Comment:0-4 Blood VENOUS BLOOD / Unknown 05/06/2024 Historical Provider CHEMISTRY ORDERABLES Final R esult Performing Organization Address [facility] de Phone Number SEP OFFICE * (ABNORMAL) THYROID STIMULATING HORMONE (05/06/2024) Only the most recent of39 resultswithin the time period is included. Pathologist [facility] TSH 17.500(A) 0.400 - 4.500 MCIU/ML SEP OFFICE Comment:0.465-4.68 Blood VENOUS BLOOD / Unknown 05/06/2024 [facility] Provider CHEMISTRY ORDERABLES Final R formerly [facility] Performing Organization Address [facility] Phone Number SEP OFFICE * HEMOGLOBIN A1C (05/06/2024) Only the most recent of41 resultswithin the time period is included. Pathologist [facility] A1c 6.9 SEP OFFICE Comment:4.0-6.0 Blood VENOUS BLOOD / Unknown 05/06/2024 [facility] Provider CHEMISTRY ORDERABLES Final R formerly [facility] Performing Organization Address [facility] Phone Number SEP OFFICE * VITAMIN B12 LEVEL (05/06/2024) Only the most recent of27 resultswithin the time period is included. Pathologist [facility] Vitamin B12 500 PG/ML SEP OFFICE Comment:325-931 Blood VENOUS BLOOD / Unknown 05/06/2024 [facility] Provider CHEMISTRY ORDERABLES Final R formerly [facility] Performing Organization Address [facility] Phone Number SEP OFFICE * (ABNORMAL) COMPREHENSIVE METABOLIC PANEL (05/06/2024) Only the most recent of43 resultswithin the time period is included. Pathologist [facility] Sodium 140 137 - 147 MMOL/L SEP [...] period is included. 01/16/2024 6:33 PM EDT Unknown Provider HEMATOLOGY ORDERABLES Final Res ult * T4, FREE (THYROXINE) (12/31/2023) Only the most recent of31 resultswithin the time period is included. Free T4 1.93 NG/DL SEP OFFICE Comment:Reference Range: 0.7 8-2.19 ng/dL Blood VENOUS BLOOD / Unknown 12/31/2023 Rojas Cunningham MD CHEMISTRY ORDERABLES Final Resu lt Performing Organization Address [facility] de Phone Number SEP OFFICE * LIPID [...] Final Resu lt Performing Organization Address [facility] Phone Number SEP OFFICE * T3 FREE (09/18/2023) Only the most recent of7 resultswithin the time period is included. Free T4 1.05 NG/DL SEP OFFICE Comment:Reference Range: 0.7 8-2.19 ng/dL Blood VENOUS BLOOD / Unknown 09/18/2023 Rojas Cunningham MD CHEMISTRY ORDERABLES Final Resu lt Performing Organization Address [facility] de Phone Number SEP OFFICE * URIC ACID (03/20/2023 12:40 PM EDT) Only the most recent of3 resultswithin the time period is included. Uric Acid 5.0 2.4 - 5.7 mg/dL 03/20/2023 5:51 PM EDT [facility] ip[employer]access, [facility] Blood VENOUS BLOOD / Unknown Venipuncture / Unknown 03/20/2023 12:40 PM EDT 03/20/2023 12:40 PM EDT Rojas Cunningham MD CHEMISTRY ORDERABLES Final Resu lt [facility], [address] , [address] [place], [place] [id number] * TRIIODOTHYRONINE (02/06/2023) Only the most recent of2 resultswithin the time period is included. T3 Free 3.1 PG/ML SEP OFFICE Comment:[facility] -2 .0-4.4 Blood VENOUS BLOOD / Unknown 02/06/2023 Historical Provider CHEMISTRY ORDERABLES Final R esult Performing Organization Address [facility] de Phone Number SEP OFFICE * FRUCTOSAMINE (08/07/2022) Only the most recent of10 resultswithin the time period is included. Fructosamine 273 MCMOL/L SEP OFFICE Comment:Reference Range: 0-2 85 umol/L Blood VENOUS BLOOD / Unknown 08/07/2022 Rojas Cunningham MD CHEMISTRY ORDERABLES Final Resu lt Performing Organization Address [facility] de Phone Number SEP OFFICE * VITAMIN C (ASCORBIC ACID) - REF LAB (05/04/2022) Vitamin C 0.1 SEP OFFICE Comment:Reference Range: 0.4 -2.0 mg/dL Blood VENOUS BLOOD / Unknown 05/04/2022 Yecenia Ruiz MD CHEMISTRY ORDERABLES Final Re sult Performing Organization Address [facility]/ZIP Co de Phone Number SEP OFFICE * C-PEPTIDE (05/31/2021) Only the most recent of4 resultswithin the time period is included. C-Peptide 1.5 NG/ML SEP OFFICE Comment:1.1-4.4 [facility] Blood 05/31/2021 Rojas Cunningham MD CHEMISTRY ORDERABLES Edited Res ult - Final Performing Organization Address [facility] de Phone Number SEP OFFICE * THYROGLOBULIN AND TG AB REFLEX MONITOR-REF LAB (01/25/2021) Only the most recent of9 resultswithin the time period is included. Thyroglob Ab <1.0 IU/ML SEP OFFICE Comment:[place] 0.0-0.9 Blood 01/25/2021 Rojas Cunningham MD CHEMISTRY ORDERABLES Final Resu lt Performing Organization Address [facility] de Phone Number SEP OFFICE * APOLIPOPROTEIN B-REF LAB (07/06/2020) Only the most recent of6 resultswithin the time period is included. 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 No evidence for cervical radiculopathy Wiley Willard MD -Board Certified Physical Medicine and Rehabilitation Narrative [facility] - 04/12/2020 11:13 AM EDT Nerve [...] ORDERABLES Final Res ult Performing Organization Address City/[facility]/ZIP Co de Phone Number [facility] [address] [place] [address] * FRUCTOSAMINE -REF LAB (02/26/2019) Only the most recent of10 resultswithin the time period is included. Fructosamine 257 MCMOL/L SEP OFFICE Comment:Evita Crouch 0-285 Blood 02/26/2019 Rojas Cunningham MD CHEMISTRY ORDERABLES Final Resu lt Performing Organization Address [facility] Co de Phone Number SEP OFFICE * LIPOPROTEIN (A)-REF LAB (01/20/2019) Only the most recent of3 resultswithin the time period is included. Lipoprotein (A) 17 MG/DL SEP OFFICE Comment:<75 -[facility] Blood VENOUS BLOOD / Unknown 01/20/2019 Tiffany Mayen MERCHANDISE COMPLAINT ADJUSTER CHEMISTRY ORDERABLES Fin al Result Performing Organization Address [facility] Co de Phone Number SEP OFFICE * FERRITIN (01/08/2019) Only the most recent of7 resultswithin the time period is included. Ferritin 45.1 9.0 - 150.0 NG/ML SEP OFFICE Comment:[facility] 1 1.1-264.0 Blood VENOUS BLOOD / Unknown 01/08/2019 Rojas Cunningham MD CHEMISTRY ORDERABLES Final Resu lt Performing Organization Address [facility] Co de Phone Number SEP OFFICE * VITAMIN E - REF LAB (07/05/2018 12:00 PM EDT) Pathologist [facility] Alpha-Tocopherol (Vit E) mg/L 10.3 5.5 - 18.0 mg/L 07/09/2018 7:48 AM EDT [facility] Comment: Test developed and characteristics determined by [facility]. See Compliance Statement B: [employer]/ Gamma-Tocopherol (Vit E) mg/L 2.4 0.0 - 6.0 mg/L 07/09/2018 7:48 AM EDT [facility] Comment: Performed by [facility], [address] [place] [address] www.[employer], Andrés Gramajo MD, Lab. Director Blood Venipuncture / Unknown 07/05/2018 12:00 PM EDT 07/05/2018 12:00 PM EDT Lauren Fraser MERCHANDISE COMPLAINT ADJUSTER CHEMISTRY ORDERABLES Final Result Performing Organization Address City/[facility]/ZIP Co de Phone Number [facility] [address] [place] [address] * IRON/UIBC (07/05/2018 12:00 PM EDT) Only the most recent of4 resultswithin the time period is included. [facility] Iron 96 30 - 160 mcg/dL 07/05/2018 2:05 PM EDT [facility], [email or web address] UIBC 185 112 - 347 mcg/dL 07/05/2018 2:05 PM EDT [employer], [email or web address] Transferrin Sat 34 20 - 50 % 8 2:05 PM EDT [facility] [employer], [facility] Blood Venipuncture / Unknown 07/05/2018 12:00 PM EDT 07/05/2018 12:00 PM EDT Lauren Fraser MERCHANDISE COMPLAINT ADJUSTER CHEMISTRY ORDERABLES Final Result [employer], [email or web address] [address] [facility] , [place] [address] * COPPER LEVEL -REF LAB (07/05/2018 12:00 PM EDT) [facility] Copper 116 80 - 155 ug/dL 07/09/2018 7:30 AM EDT [facility] Comment: INTERPRETIVE INFORMATION: Copper, Serum or Plasma [...] or malabsorption. See Compliance Statement B at [email or web address] Performed by [facility], [address] [place] [address] www.[employer], Andrés Gramajo MD, Lab. Director Blood Venipuncture / Unknown 07/05/2018 12:00 PM EDT 07/05/2018 12:00 PM EDT Lauren Fraser MERCHANDISE COMPLAINT ADJUSTER CHEMISTRY ORDERABLES Final Result [facility] [address] [place] [address] * VITAMIN B1 (THIAMINE) WHOLE BLOOD -REF LAB (07/05/2018 12:00 PM EDT) Only the most recent of4 resultswithin the time period is included. [facility] Vit B1 WB 133 70 - 180 nmol/L 07/10/2018 9:00 AM EDT [facility] Comment: INTERPRETIVE INFORMATION: Vitamin B1, Whole Blood This assay measures the concentration of thiamine diphosphate (TDP), the primary active form of vitamin B1. Approximately 90 percent of vitamin B1 present in whole blood is TDP. Thiamine and thiamine monophosphate, which comprise the remaining 10 percent, are not measured. Test developed and characteristics determined by [facility]. See Compliance Statement B: [employer] Performed by [facility], [address] [place] [address] www.[employer], Andrés Gramajo MD, Lab. Director Blood Venipuncture / Unknown 07/05/2018 12:00 PM EDT 07/05/2018 12:00 PM EDT Lauren Fraser MERCHANDISE COMPLAINT ADJUSTER CHEMISTRY ORDERABLES Final Result Performing Organization Address [facility] de Phone Number [facility] [address] [place], [place] [id number] * ZINC LEVEL-REF LAB (07/05/2018 12:00 PM EDT) Only the most recent of4 resultswithin the time period is included. Zinc 68 60 - 120 ug/dL 07/09/2018 7:30 AM EDT [facility] Comment: INTERPRETIVE INFORMATION: Zinc, Serum or Plasma Circulating zinc concentrations are dependent on albumin status and are depressed with malnutrition. Zinc may also be lowered with infection, inflammation, stress, oral contraceptives, and . Zinc may be elevated with zinc supplementation or fasting. Elevated zinc concentrations may interfere with copper absorption. Test developed and characteristics determined by [facility]. See Compliance Statement B: [employer] Performed by [facility], [address] [place] [id number] www.[employer], Andrés Gramajo MD, Lab. Director Blood Venipuncture / Unknown 07/05/2018 12:00 PM EDT 07/05/2018 12:00 PM EDT Lauren Fraser MERCHANDISE COMPLAINT ADJUSTER CHEMISTRY ORDERABLES Final Result Performing Organization Address [facility] de Phone Number [facility] [address] [place] [address] * VITAMIN A (RETINOL) -REF LAB (07/05/2018 12:00 PM EDT) Only the most recent of3 resultswithin the time period is included. Vit A(Retinol) 0.37 0.30 - 1.20 mg/L 07/09/2018 7:48 AM EDT [facility] Retinyl Palm 0.02 0.00 - 0.10 mg/L 07/09/2018 7:48 AM EDT [facility] Vit A Intrp Normal 07/09/2018 7:48 AM EDT [facility] Comment: Test developed and characteristics determined by [facility]. See Compliance Statement B: [employer] Performed by [facility], [address] [place] [address] www.[employer], Andrés Gramajo MD, Lab. Director Blood Venipuncture / Unknown 07/05/2018 12:00 PM EDT 07/05/2018 12:00 PM EDT Lauren Fraser APRN CHEMISTRY ORDERABLES Final Result Performing Organization Address City/[facility]/ZIP Co de Phone Number [facility] [address] [place] [address] * (ABNORMAL) FOLATE LEVEL (07/05/2018 12:00 PM EDT) Only the most recent of3 resultswithin the time period is included. Folate >16.00(H) 4.50 - 16.00 ng/mL 07/05/2018 2:20 PM EDT [facility] Blood Venipuncture / Unknown 07/05/2018 12:00 PM EDT 07/05/2018 12:00 PM EDT Narrative [facility] - 07/05/2018 2:20 PM EDT Ingestion of abdirashid doses of biotin (>5 mg/day) taken within 8 hours of drawing blood sample can interfere with this immunoassay test. Lauren rFaser APRN CHEMISTRY ORDERABLES Final Result Performing Organization Address City/[facility]/ZIP Co de Phone Number [facility] [address] [facility] , [place] [address] * MISCELLANEOUS LAB (06/12/2018) Only the most [...] client) 40.5 % 01/03/2018 11:26 PM EDT [facility] Folate RBC 587 >=366 ng/mL 01/03/2018 11:26 PM EDT [facility] Comment: Performed by [facility], [address] [place] [address] www.[employer], Andrés Gramajo MD, Lab. Director Blood Venipuncture / Unknown 01/02/2018 8:52 AM EDT 01/02/2018 8:52 AM EDT Gila Winter APRN CHEMISTRY ORDERABLES Final Res ult Performing Organization Address [facility] Co de Phone Number [facility] [address] [place] [address] * IONIZED CALCIUM - INPATIENT (10/24/2017 11:44 AM EST) Only the most recent of6 resultswithin the time period is included. Calcium Ionized 1.17 1.12 - 1.32 mmol/L 10/24/2017 12:10 PM EST [facility] Blood Venipuncture / Unknown 10/24/2017 11:44 AM EST 10/24/2017 11:44 AM EST Rojas Cunningham MD CHEMISTRY ORDERABLES Final Resu lt Performing Organization Address City/[facility]/ZIP Co de Phone Number [facility] [address] [place] [address] * BILL TG CL (10/24/2017 11:44 AM EST) [id number] P Billed 10/26/2017 2:22 AM EST [facility] Comment: Performed by [facility], [address] [place] [address] www.[employer], Andrés Gramajo MD, Lab. Director Blood Venipuncture / Unknown 10/24/2017 11:44 AM EST 10/24/2017 11:44 AM EST Rojas Cunningham MD IMMUNOLOGY ORDERABLES Final Res ult Performing Organization Address [facility] Co de Phone Number [facility] [address] [place] [address] * PARATHYROID HORMONE INTACT (10/24/2017 11:44 AM EST) Only the most recent of8 resultswithin the time period is included. PTH Intact 32.09 15.00 - 65.00 pg/mL 10/24/2017 3:58 PM EST [facility] Blood Venipuncture / Unknown 10/24/2017 11:44 AM EST 10/24/2017 11:44 AM EST Narrative [facility] - 10/24/2017 3:58 PM EST Intact [...] Final Resu lt Performing Organization Address [facility]/ZIP Co de Phone Number [facility] [address] [place] [address] * APOLIPOPROTEIN, A-1-REF LAB (09/04/2017) Apolipoprotein A-1 138 SEP OFFICE Comment:116-209 Apolipoprotein B 94 SEP OFFICE Comment:54-133 Apolipo. B/A-1 Ratio 0.7 SEP OFFICE Comment:0.0-0.6 Blood VENOUS BLOOD / Unknown 09/04/2017 Rojas Cunningham MD CHEMISTRY ORDERABLES Final Resu lt Performing Organization Address [facility] de Phone Number SEP OFFICE * CALCIUM, IONIZED, SERUM-REF LAB (09/04/2017) Calcium Ionized 5.0 MMOL/L SEP OFFICE Comment:4.5-5.6 [place] Blood VENOUS BLOOD / Unknown 09/04/2017 Rojas Cunningham MD CHEMISTRY ORDERABLES Final Resu lt Performing Organization Address [facility] de Phone Number SEP OFFICE [...] Vitamin B12 994(H) 211 - 946 pg/mL [facility] Folic Acid Lvl 12.57 4.50 - 37.30 ng/mL [facility] Blood specimen (specimen) UPPER LIMB STRUCTURE / Unknown 06/14/2017 1:45 PM EDT 06/14/2017 6:33 PM EDT Lauren Fraser APRN CHEMISTRY ORDERABLES Edite d Result - Final [facility] [address] [place] [address] * MAGNESIUM LEVEL (06/14/2017 1:45 PM EDT) Only the most recent of3 resultswithin the time period is included. Magnesium 2.1 1.6 - 2.4 mg/dL [facility] Blood specimen (specimen) UPPER LIMB STRUCTURE / Unknown 06/14/2017 1:45 PM EDT 06/14/2017 10:15 PM EDT us Lauren Fraser MERCHANDISE COMPLAINT ADJUSTER CHEMISTRY ORDERABLES Final Result Performing Organization Address [facility] Co de Phone Number [facility] [address] [place] [address] * (ABNORMAL) CBC (06/06/2017 2:04 PM EDT) Only the most recent of4 resultswithin the time period is included. WBC 9.0 4.0 - 11.0 x10(3)/mcL [facility] RBC 4.79 3.80 - 5.10 x10(6)/mcL [facility] Hgb 12.5 12.0 - 15.6 gm/dL [facility] Hct 38.6 35.7 - 45.9 % [facility] MCV 80.6(L) 82.5 - 99.8 fL [facility] MCH 26.1(L) 27.0 - 34.3 pg [facility] MCHC 32.4 32.1 - 35.3 gm/dL [facility] RDW 14.8 11.5 - 15.0 % [facility] Platelet 210 144 - 423 x10(3)/mcL [facility] MPV 9.3 6.8 - 10.8 fL [facility] Blood specimen (specimen) 06/06/2017 2:04 PM EDT 06/06/2017 2:04 PM EDT us Gila Winter MERCHANDISE COMPLAINT ADJUSTER HEMATOLOGY ORDERABLES Final Re sult Performing Organization Address City/[facility] Co de Phone Number [facility] [address] [place], [place] [id number] * SCANNED RHYTHM STRIPS (06/02/2017 8:20 AM [...] Meter POC 205(H) 70 - 100 mg/dL [facility] POINT OF CARE LABORATORY Sample Type Capillary [facility] Patient Status Non-Critical Patient [facility] Blood specimen (specimen) 05/31/2017 12:51 PM EDT 05/31/2017 12:51 PM EDT us Duncan Choi MD POINT OF CARE TEST ORDERABLE S Final Result Performing Organization Address City/[facility]/ZIP Co de Phone Number [facility] [address] [facility] [place] [address] * DIFFERENTIAL (05/31/2017 5:44 AM EDT) Only the most recent of10 resultswithin the time period is included. Neut Percent 73.6 % [facility] Lymph Percent 18.3 % [facility] [place] Percent 7.0 % [facility] Eos Percent 0.5 % [facility] Baso Percent 0.6 % [facility] Neut# 6.9 1.8 - 7.7 x10(3)/mcL [facility] Lymph# 1.7 0.6 - 4.8 x10(3)/mcL [facility] [place]# 0.7 0.0 - 1.3 x10(3)/[facility] Eos# 0.0 0.0 - 0.5 x10(3)/[facility] Baso# 0.1 0.0 - 0.2 x10(3)/[facility] Blood specimen (specimen) 05/31/2017 5:44 AM EDT 05/31/2017 6:02 AM EDT us Duncan Choi MD HEMATOLOGY ORDERABLES Final Result Performing Organization Address City/[facility]/ZIP Co de Phone Number [facility] [address] [place] [address] * (ABNORMAL) CBC WITH AUTO DIFF (05/31/2017 5:44 AM EDT) Only the most recent of10 resultswithin the time period is included. Pathologist [facility] WBC 9.4 4.0 - 11.0 x10(3)/mcL [facility] RBC 4.64 3.80 - 5.10 x10(6)/mcL [facility] Hgb 12.3 12.0 - 15.6 gm/dL [facility] Hct 37.0 35.7 - 45.9 % [facility] MCV 79.8(L) 82.5 - 99.8 fL [facility] MCH 26.4(L) 27.0 - 34.3 pg [facility] MCHC 33.1 32.1 - 35.3 gm/dL [facility] RDW 15.0 11.5 - 15.0 % [facility] Platelet 179 144 - 423 x10(3)/mcL [facility] MPV 8.9 6.8 - 10.8 fL [facility] Blood specimen (specimen) 05/31/2017 5:44 AM EDT 05/31/2017 6:02 AM EDT Duncan Choi MD HEMATOLOGY ORDERABLES Final Result Performing Organization Address City/State/[facility] Co de Phone Number [facility] [address] [place], [place] [id number] * PARTIAL THROMBOPLASTIN TIME (05/30/2017 7:38 PM EDT) Only the most recent of2 resultswithin the time period is included. Pathologist [facility] PTT 30.9 26.0 - 36.4 second(s) [facility] Comment: Therapeutic range for unfractionated heparin: 53.0 [...] ORDERABLES Final Result Performing Organization Address [facility] de Phone Number [facility] [address] [place] [address] * PT / INR (05/30/2017 7:38 PM EDT) Only the most recent of3 resultswithin the time period is included. PT 12.7 10.1 - 12.9 second(s) [facility] INR 1.09 0.88 - 1.12 [facility] Comment: Level of Therapy Indications Target INR Range Standard Dose Treatment and prophylaxis of venous 2.0 - 3.0 thrombosis, pulmonary embolism High Dose High risk patients with mechanical 2.5 - 3.5 heart valves Blood specimen (specimen) UPPER LIMB STRUCTURE / Unknown 05/30/2017 7:38 PM EDT 05/30/2017 7:43 PM EDT Duncan Choi MD HEMATOLOGY ORDERABLES Final Result Performing Organization Address [facility] Co de Phone Number [facility] [address] [place] [address] * PATHOLOGY TISSUE REPORT (05/30/2017 10:23 AM EDT) Only the most recent of2 resultswithin the time period is included. Surgical Pathology Report PATIENT NAME:ANGELES KIMBROUGH Surgical Pathology Report Accession Number Collected Date/Time Received Date/Time [id number] 05/30/17 10:23 EDT 05/30/17 20:33 EDT Diagnosis Greater curvature of stomach, partial resection: - Fundic mucosa, submucosa and muscularis propria showing no evidence of malignancy. - Mild associated chronic inflammation. Mariela Chew (Electronically signed by) Verified: 06/01/2017 [facility] Laboratory Clinical Information Morbid obesity (HCC) [...] masses, or areas of ulceration grossly identified. Superintendent Measurement sections are submitted in one cassette. / TE JUAN/LATOYA Microscopic Description Microscopic examination is performed and the findings corroborate the diagnosis. [facility] 05/30/2017 10:2 3 AM EDT us Duncan Choi MD PATHOLOGY ORDERABLES Final R esult [facility] [address] [place] [address] * INTRAOP AIRWAY PLACEMENT (05/30/2017 10:11 AM EDT) Narrative [facility] - 05/30/2017 10:11 AM EDT José [...] Atraumatic and Unchanged Insertion attempts: 1 Title: WOODEN TANK ERECTOR Giuseppe Massey MD MS ANESTHESIA Final Result Performing Organization Address [facility] de Phone Number [facility] [address] [place] [address] * CROSSMATCH SUMMARY (05/30/2017 8:48 AM EDT) Blood specimen (specimen) 05/30/2017 8:48 AM EDT 05/30/2017 8:48 AM EDT us Duncan Choi MD BLOOD BANK ORDERABLES Final Result Performing Organization Address [facility] de Phone Number [facility] [address] [place] [address] * ABORH (05/23/2017 12:15 PM EDT) ABORh Int O POS [facility] Blood specimen (specimen) 05/23/2017 12:15 PM EDT 05/23/2017 12:21 PM EDT us Karin Ashley MERCHANDISE COMPLAINT ADJUSTER BLOOD BANK ORDERABLES Final R esult Performing Organization Address [facility] de Phone Number [facility] [address] [phone] * ANTIBODY SCREEN IGG (05/23/2017 12:15 PM EDT) ABSC IgG Int Negative [facility] Blood specimen (specimen) 05/23/2017 12:15 PM EDT 05/23/2017 12:21 PM EDT Karin Ashley MERCHANDISE COMPLAINT ADJUSTER BLOOD BANK ORDERABLES Final R esult Performing Organization Address [facility] de Phone Number [facility] [address] [phone] * CORTISOL SALIVA-REF LAB (03/29/2017 12:59 AM EDT) [facility] Cortisol Saliva-[facility] 0.029 mcg/dL [facility] Comment: INTERPRETIVE INFORMATION: Cortisol, Saliva Effective 10/30/2005 For collection at 2300 hr. the normal cortisol concentration is less than 0.112 ug/dL. Patients with Cushings Syndrome have concentrations of 0.112 ug/dL or greater. a.m. ([phone]) p.m. (noon-1800) Males 2.5-7 years 0.034-0.645 ug/dL [...] older 0.149-0.739 ug/dL 0.022-0.254 ug/dL Performed by [facility], [address] [place] [id number] [email or web address], Andrés Gramajo MD - Lab. Director Saliva specimen (specimen) 03/29/2017 12:59 AM EDT 03/30/2017 4:10 PM EDT us Gila Winter ANJANA CHEMISTRY ORDERABLES Final Res ult [facility] [address] [place] [address] * HEPATIC FUNCTION PANEL (11/07/2016) Only the [...] R esult - Final Performing Organization Address City/[facility]/ZIP Co de Phone Number SEP OFFICE * US RETROPERITONEAL LIMITED (10/27/2016 3:07 PM EST) Anatomical Region Laterality Modality Ultrasound Impressions 10/30/2016 1:17 PM EST : 1. No pseudoaneurysm of the right groin. Tanvi Ornelas MD. [address] [facility] [place] [address] [place], [address] Narrative 10/30/2016 1:17 PM EST EXAMINATION: Arterial [...] of the visualized vessels. Eric Be MD [facility] ORDERABLES Final Result * (ABNORMAL) LIPOPROFILE NMR, PARTICLE ANALYSIS ONLY-REF LAB (08/22/2016 1:21 PM EST) LDL Particle Number by NMR 1523(H) <1000 nmol/L [facility] Comment: Low < 1000 Moderate 1000 - 1299 Borderline-High 1300 - 1599 High 1600 - 2000 Very High > 2000 Performed at: [place] [address] LDL Particle Size 20.0 >20.5 nm [facility] Comment: INTERPRETATIVE INFORMATION PARTICLE CONCENTRATION AND [...] have not been fully established. Performed at: [facility] [address] [address] LDL Size 20.0 >=20.8 nm [facility] Comment: Performed at: [place] [address] HDL Particle Number 30.4(L) >=30.5 mcmol/L [facility] Comment: Performed at: [place] [address] HDL Size 8.8(L) >=9.2 nm [facility] Comment: Performed at: [place] [address] Large HDL Particle Number 2.6(L) >=4.8 mcmol/L [facility] Comment: Performed at: [place] [address] Small LDL Particle Number 1027(H) <=527 nmol/L [facility] Comment: Performed at: [place] [address] Small LDL-P 1027(H) <=527 nmol/L [facility] Comment: Performed at: [place] [address] VLDL Size 60.2(H) <=46.6 nm [facility] Comment: Performed at: [place] [address] Large VLDL Particle Number 10.0(H) <=2.7 nmol/L [facility] Comment: Performed at: [place] [address] LP Insulin Resistance Score 83(H) <=45 [facility] [...] [place] Food and Drug Administration. Performed at: [address] [address] Blood specimen (specimen) 08/22/2016 1:21 PM EST 08/22/2016 6:27 PM EST Rojas Cunningham MD CHEMISTRY ORDERABLES Final Resu lt [employer] [address] [place], [place] [id number] * IGF-1 (INSULIN-LIKE GROWTH FACTOR 1) -REF LAB (08/22/2016 1:21 PM EST) Only the most recent of2 resultswithin the time period is included. IGF-1 103 53 - 287 ng/mL [facility] Comment: REFERENCE INTERVAL: IGF-1 (Insulin-Like Growth I) IGF-1 values well above the age and gender matched reference interval indicate a possible pituitary tumor secreting growth hormone. IGF-1 values below the reference interval indicate a possible GH deficiency. Access complete set of age- and/or gender-specific reference intervals for this test in the [facility] Test Directory ([employer]). Performed by [facility], [address] [place] [address] [email or web address], Lion Mooney MD - Lab. Director Blood specimen (specimen) 08/22/2016 1:21 PM EST 08/22/2016 11:16 PM EST Rojas Cunningham MD CHEMISTRY ORDERABLES Final Resu lt Performing Organization Address City/[facility]/ZIP Co de Phone Number [facility] [address] [place] [address] * PHOSPHORUS LEVEL (08/22/2016 1:21 PM EST) Only the most recent of2 resultswithin the time period is included. Pathologist [facility] Phosphorus 4.0 2.5 - 4.5 mg/dL [facility] Blood specimen (specimen) UPPER LIMB STRUCTURE / Unknown 08/22/2016 1:21 PM EST 08/22/2016 5:53 PM EST Rojas Cunningham MD CHEMISTRY ORDERABLES Final Resu Performing Organization Address [facility] [place] [address] * (ABNORMAL) [facility] LIPOPROFILE-REF LAB (06/17/2015) Only the most recent of4 resultswithin the time period is included. LDL Particle Number by NMR 1,225 SEP OFFICE Comment:<1000, fax from [facility] HDL Particle Number 25.3 SEP OFFICE Comment:>30.5 [...] Res ult - Final Performing Organization Address City/[facility] Co de Phone Number SEP OFFICE * C-REACTIVE PROTEIN HIGH SENSITIVITY (06/17/2015) Only the most recent of2 resultswithin the time period is included. CRP 20.2 SEP OFFICE Comment:0.0-9.0, fax from [facility] Blood specimen (specimen) UPPER LIMB STRUCTURE / Unknown 06/17/2015 Rojas Cunningham MD CHEMISTRY ORDERABLES Final Resu lt Performing Organization Address [facility] de Phone Number SEP OFFICE * C-PEPTIDE -REF LAB (02/02/2015) Only the most recent of7 resultswithin the time period is included. C-Peptide 1.3 SEP OFFICE Comment:1.1-4.4, FAX FROM [facility] Blood specimen (specimen) UPPER LIMB STRUCTURE / Unknown 02/02/2015 Rojas Cunningham MD CHEMISTRY ORDERABLES Final Resu lt Performing Organization Address [facility] de Phone Number SEP OFFICE * (ABNORMAL) NMR LIPOPROFILE 8008 (10/13/2014 10:53 AM EST) Only the most recent of3 resultswithin the time period is included. LDL Particle Number by NMR 2,015 SEP OFFICE Comment:<1000, [facility] HDL Particle Number 30.4 SEP OFFICE Comment:>30.5 [...] ult - Final Performing Organization Address [facility] Co de Phone Number SEP [...] ORDERABLES F inal Result Performing Organization Address [facility] Phone Number SEP OFFICE * LACTIC ACID (01/30/2014 4:11 PM EDT) Lactic Acid 2.0 0.5 - 2.2 mmol/L [facility] Blood specimen (specimen) UPPER LIMB STRUCTURE / Unknown 01/30/2014 4:11 PM EDT 01/30/2014 4:20 PM EDT Rojas Cunningham MD CHEMISTRY ORDERABLES Final Resu lt Performing Organization Address [facility] de Phone Number [facility] [address] [place] [address] * SCANNED RADIOLOGY REPORT (06/25/2013 11:22 AM [...] is included. LDL Calculated 85 <=100 mg/dL [facility] Comment: < 100 Optimal 100 - 129 Near or above optimal 130 - 159 Borderline High 160 - 189 High >= 190 Very High Blood specimen (specimen) 06/25/2013 4:57 AM EDT 06/25/2013 6:16 AM EDT us Armando Martin MD CHEMISTRY ORDERABLES Final Re sult [facility] [address] [place] [address] * MRI BRAIN WO CONTRAST (06/24/2013 3:25 [...] IMG ECHO ORDERABLES Final Resu lt * NV US CAROTID DUPLEX BILATERAL (06/24/2013 8:13 AM [...] TSH Reflex 1.650 0.300 - 5.000 mcIU/mL [facility] Blood specimen (specimen) UPPER LIMB STRUCTURE / Unknown 06/24/2013 5:11 AM EDT 06/24/2013 1:51 PM EDT us Jovany Rosario MD CHEMISTRY ORDERABLES Final Result [facility] [address] [place] [address] * TROPONIN-I (06/24/2013 1:16 AM EDT) Only the most recent of9 resultswithin the time period is included. Troponin-I <0.01 <=0.06 ng/mL [facility] Blood specimen (specimen) UPPER LIMB STRUCTURE / Unknown 06/24/2013 1:16 AM EDT 06/24/2013 1:21 AM EDT us Boris Rodriguez MD CHEMISTRY ORDERABLES Final Resul t Performing Organization Address [facility] Co de Phone Number [facility] [address] [place] [address] * CT HEAD WO CONTRAST (06/23/2013 6:18 [...] radiata cystic ischemic change. Boris Rodriguez MD [facility] ORDERABLES Final Result * XR CHEST [...] No acute disease identified. Boris Rodriguez MD [facility] DIAGNOSTIC IMAGING ORDERABLE S Final Result * ED TROPONIN (06/23/2013 1:26 PM EDT) Only the most recent of2 resultswithin the time period is included. ED TNI 0.00 <=0.06 ng/mL [facility] Blood specimen (specimen) UPPER LIMB STRUCTURE / Unknown 06/23/2013 1:26 PM EDT 06/23/2013 1:27 PM EDT Boris Rodriguez MD CHEMISTRY ORDERABLES Final Resul t Performing Organization Address City/[facility]/ZIP Co de Phone Number [facility] [address] [place] [address] * POCT RAPID STREP A (02/06/2013 9:21 AM EDT) Strep A Ag None Detected None Detected Pos/Neg SEP OFFICE Comment:negative Lot Number SEP OFFICE Expiration Date SEP OFFICE SeriAl # SEP OFFICE Control Line Yes/No SEP OFFICE Specimen from throat (specimen) 02/06/2013 9:21 AM EDT Boris Sarmiento MD POINT OF CARE TEST ORDERABLE S Final Result Performing Organization Address [facility] de Phone Number SEP OFFICE * POCT EKG (01/22/2013 1:37 PM EDT) 01/22/2013 1:37 PM EDT Chris Serra MD POINT OF CARE CARDIOLOGY Final Result Performing Organization Address [facility] de Phone Number SEP OFFICE * POCT MICROALBUMIN (01/10/2013 11:26 AM EDT) Albumin, Ur neg <=20 mg/L [facility]P [facility] Lot Number SEP OFFICE Expiration Date SEP OFFICE SeriAl # SEP OFFICE Urine specimen (specimen) 01/10/2013 11:26 AM EDT Boris Sarmiento MD POINT OF CARE TEST ORDERABLE S Final Result Performing Organization Address [facility] Co de Phone Number SEP OFFICE * (ABNORMAL) POCT URINALYSIS DIPSTICK (01/10/2013 11:26 AM EDT) Only the most recent of3 resultswithin the time period is included. 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 They [...] recent coronaryangiogram appear TECHNICAL FACTORS: 3-D noncontrast [id number] MIP reconstructed imagesobtained without contrast. They were [...] recent coronary angiogram. TECHNICAL FACTORS: 2-D noncontrast [id number]-[id number] MIP reconstructed images from axial acquired source [...] after recent coronaryangiogram. TECHNICAL FACTORS: 2-D noncontrast [id number]-fh-gyhacs MIP reconstructed imagesfrom axial acquired source images. [...] ACTIVATED CLOTTING TIME (01/03/2013 9:47 AM EDT) [facility] ACT 239 sec [facility] Lot Number [id number] [facility] Expiration Date [facility] SeriAl # [id number] [facility] Meter 2 [facility] Blood specimen (specimen) 01/03/2013 9:47 AM EDT Chris Serra MD POINT OF CARE TEST ORDERABLES F inal Result [facility] [address] [place] [address] * GAMMA FACILITIES OPERATOR PROCEDURE LOG (01/03/2013 9:22 AM EDT) 01/03/2013 9:22 AM EDT us Soo Storey APRN [facility] CARDIAC CATH ORDERABLE S Final Result [facility] * EC ECHOCARDIOGRAM COMPLETE W DOPPLER AND COLOR FLOW MAPPING (01/02/2013 4:11 PM EDT) [facility] Ejection Fraction 55 % PYRAMIS Anatomical [...] fraction is estimated at 55-60 %. Soo tSorey MERCHANDISE COMPLAINT ADJUSTER IMG ECHO ORDERABLES Final Result * CT [...] IMPRESSION: Stable appearance of the thyroid us Tritsan Ron MD [facility] US ORDERABLES Final Result * THYROID PEROXIDASE (TPO) ANTIBODY-ARUP (04/03/2012 10:39 AM EDT) TPO Ab <0.3 0.0 - 9.0 IU/mL [facility] Blood specimen (specimen) UPPER LIMB STRUCTURE / Unknown 04/03/2012 10:39 AM EDT 04/03/2012 2:23 PM EDT Rojas Cunningham MD IMMUNOLOGY ORDERABLES Final Res ult Performing Organization Address [facility]/ZIP Co de Phone Number [facility] [address] [place] [address] * GLUTAMIC ACID DECARBOXYLASE AB-[facility] (04/03/2012 10:39 AM EDT) STEPHEN Ab <5.0 0.0 - 5.0 IU/mL [facility] Comment: INTERPRETIVE INFORMATION: Glutamic Acid Decarboxylase Antibody A value greater than 5.0 IU/mL is considered positive for Glutamic Acid Decarboxylase Antibody. Blood specimen (specimen) UPPER LIMB STRUCTURE / Unknown 04/03/2012 10:39 AM EDT 04/03/2012 4:39 PM EDT Rojas Cunningham MD CHEMISTRY ORDERABLES Final Resu lt Performing Organization Address [facility] Co de Phone Number [facility] [address] [place] [address] * MICROALBUMIN, URINE-[facility]UP (04/02/2012 11:05 AM EDT) Total Volume Random mL [facility] Hrs Jessica Random hr [facility] U Creatinine 96 mg/dL [facility] U24 Creat Not Applicable 700 - 1600 mg/day [facility] Microalbumin mg/dL-[facility] 0.3 mg/dL [facility] Microalbumin/Cre atinine Ratio-[facility] 3 0 - 30 mg/gm [facility] Microalbumin ug/minute-[facility] Not Applicable 0 - 20 mcg/min [facility] Microalbumin mg/day-[facility] Not Applicable 2 - 30 mg/day [facility] Urine specimen (specimen) 04/02/2012 11:05 AM EDT 04/02/2012 2:48 PM EDT us Ara Viviana Lynda MERCHANDISE COMPLAINT ADJUSTER URINE ORDERABLES Final R esult [facility] [address] [place] [address] * CT ABDOMEN PELVIS WO ORAL OR [...] tyric Acid 0.31(H) 0.00 - 0.30 mmol/L [facility] Blood specimen (specimen) 02/19/2012 4:05 PM EDT 02/19/2012 4:10 PM EDT Kyle Cortez MD CHEMISTRY ORDERABLES Catrachita l Result Performing Organization Address [facility] Co de Phone Number [facility] [address] [place] [address] * LIPASE LEVEL (02/19/2012 4:05 PM EDT) Only the most recent of5 resultswithin the time period is included. Lipase Lvl 49 36 - 250 IU/L [facility] Blood specimen (specimen) UPPER LIMB STRUCTURE / Unknown 02/19/2012 4:05 PM EDT 02/19/2012 4:10 PM EDT Kyle Cortez MD CHEMISTRY ORDERABLES Catrachita l Result Performing Organization Address [facility] Co de Phone Number [facility] [address] [place] [address] * (ABNORMAL) AMYLASE LEVEL (02/19/2012 4:05 PM EDT) Only the most recent of3 resultswithin the time period is included. Pathologist [facility] Amylase Lvl <30(L) 30 - 97 IU/L [facility] Blood specimen (specimen) UPPER LIMB STRUCTURE / Unknown 02/19/2012 4:05 PM EDT 02/19/2012 4:10 PM EDT Kyle Cortez MD CHEMISTRY ORDERABLES Catrachita l Result Performing Organization Address [facility] Co de Phone Number [facility] [address] [place] [address] * (ABNORMAL) URINALYSIS (02/19/2012 4:03 PM EDT) Only the most recent of2 resultswithin the time period is included. [facility] UA Color Yellow [facility] UA Appear Clear [facility] UA Glucose 150 mg%(A) Negative [facility] UA Bili Negative Negative [facility] UA Ketones Negative Negative mg/dL [facility] UA Blood Negative Negative [facility] UA pH 7.5 4.8 - 8.0 [facility] UA Protein Trace(A) Negative [facility] UA Urobilinogen Normal [facility] UA Nitrite Negative Negative [facility] UA Leuk Est Negative Negative [facility] UA Spec Grav 1.018 1.001 - 1.035 [facility] UA WBC 2 0 - 4 /HPF [facility] UA RBC 1 0 - 3 /HPF [facility] UA Squam Epi 1+ [facility] UA Mucus Trace [facility] Urine specimen (specimen) STRUCTURE OF URINARY TRACT PROPER / Unknown 02/19/2012 4:03 PM EDT 02/19/2012 4:03 PM EDT Kyle Cortez MD URINE ORDERABLES Edited Performing Organization Address [facility]/ZIP Co de Phone Number [facility] [address] [place] [address] * URINE CULTURE (02/19/2012 4:03 PM EDT) Pathologist [facility] Final Three or more bacterial species isolated from urine indicating superficial or fecal contamination Recollect if clinically indicated [facility] Urine specimen obtained by clean catch procedure (specimen) STRUCTURE OF URINARY TRACT PROPER / Unknown 02/19/2012 4:03 PM EDT 02/19/2012 4:16 PM EDT us Kyle Cortez MD MICROBIOLOGY - GENERAL OR DERABLES Final Result [facility] [address] [place] [address] * XR CHEST PA AND LATERAL (02/01/2012 1:25 PM EDT) Only the most recent of2 resultswithin the time period is included. Anatomical Region Laterality Modality Chest Radiographic Mecca ging 02/01/2012 Impressions 02/01/2012 1:57 PM EDT Impression: Normal chest. Narrative 02/01/2012 1:57 PM EDT PA and Lateral Chest: Feb 01, 2012 01:25:23 PM History: [id number] Findings: The heart and lungs are within normal limits. Procedure Note Esme Baron - 02/01/2012 PA and Lateral Chest: Feb 01, 2012 01:25:23 PM History: [id number] Findings: The heart and lungs are within normal limits. Impression: Normal chest. us Arely Karimi MD IMG DIAGNOSTIC IMAGING ORDERA BLES Final Result * (ABNORMAL) VITAMIN D, [id number] (01/04/2012 11:29 AM EDT) Vit D 25 OH 19(L) 30 - 80 ng/mL [facility] Comment: INTERPRETIVE INFORMATION: Vitamin D, 25-Hydroxy [...] Mcgrath MD CHEMISTRY ORDERABLES Fin al Result [facility] [address] [place] [address] * ST STRESS TEST EXERCISE (11/22/2011 11:32 [...] the colon No lymphadenopathy or bowel obstruction Ccix-ze-jiyurobj clonic diverticulosis. No evidence of diverticulitis. Procedure [...] the colon No lymphadenopathy or bowel obstruction Qahf-mn-arkrowvg clonic diverticulosis. No evidence of diverticulitis. IMPRESSION: No acute findings. Normal appendix. Nonobstructing bilateralsmall renal stones. Cal Pate MD IMG CT ORDERABLES Final Result * NON-ENGINE WATCHMAN CYTOLOGY REPORT (08/25/2011 2:39 PM EST) Non-Powder Line Repairer Cytology Report PATIENT NAME:ANGELES POPE Non-Powder Line Repairer Cytology Report Accession Number Collected Date/Time Received Date/Time [id number] 08/25/11 14:39 EST 08/25/11 14:40 EST Specimen Source Fine Needle Aspiration - Right Thyroid Diagnosis Other Diagnostic Category, see comment section. Comment Specimen Adequacy: Satisfactory Cellular specimen composed of uniform, cytologically bland-appearing follicular epithelial cells with a predominantly macrofollicular arrangement. Colloid is present. COMMENT: The cytologic findings are consistent with a benign thyroid nodule. Clinical and radiographic correlation is recommended. Collection Systems Modeler: MR YUNG 08/28/2011 Completed by: BRENT OROZCO MD (Electronically signed by) 08/28/2011 [facility] Laboratory Gross Description 4 direct smears made. Evaluation Episode #1: Adequate Evaluation Episode #2: Adequate Immediate Assessment for Adequacy: Adequate for cytologic diagnosis./ QL [facility] 08/25/2011 2:39 PM EST Jeremy Ravi MD CYTOLOGY ORDERABLES Final Result [facility] [address] [place] [address] * US GUIDED THYROID BIOPSY (08/25/2011 2:03 [...] needle biopsy thyroidnodule. us Tristan Ron MD [facility] US ORDERABLES Final Result * SCANNED OR REPORT (07/06/2011 12:00 AM EDT) Narrative 07/06/2011 9:26 PM EDT Ordered by an unspecified provider. Transcriptions Unknown, Unknown - 07/06/2011 9:26 PM EDT us Unknown Unknown PROCEDURE/MINOR SURGICAL ORDERAB LES Final Result * FOLLICLE STIMULATING HORMONE LEVEL (06/14/2011 11:12 AM EDT) FSH 33.9 mIU/mL [facility] Comment: Suggested Reference Range (mIU/mL) Postmenopausal Female 22 - 130 Follicular Phase Female 2 - 12 Luteal Phase Female 1 - 10 Blood specimen (specimen) UPPER LIMB STRUCTURE / Unknown 06/14/2011 11:12 AM EDT 06/14/2011 12:40 PM EDT us Harper Mcgrath MD CHEMISTRY ORDERABLES Fin al Result [facility] [address] [place] [address] * XR ABDOMEN AP (05/11/2011 2:21 PM [...] PM EDT) D-Dimer <0.22 <=0.45 mcg/ml FEU [facility] Comment: The D-dimer test is used [...] Page MD HEMATOLOGY ORDERABLES Final R esult [facility] [address] [place] [address] * SCANNED OR REPORT (04/28/2010 12:00 AM [...] EST Name: BETZAIDA CHAN : 1960 VERIFIED [facility] Reason: 592.0/KUB Dict.Staff: ANGELA FARRIS [id number] Verified By: WILLA WEI Moncho: 11/05/09 11:32 pm Exams: [id number] [id number], 11/05/2009: COMPARISON: 09/08/2009. HISTORY: Right [...] 01/21/2010 Name: BETZAIDA CHAN : 1960 VERIFIED [facility] Reason: 592.0/KUB Dict.Staff: ANGELA FARRIS [id number] Verified By: WILLA WEI Moncho: 11/05/09 11:32 pm Exams: [id number] [facility]IEW KUB, 11/05/2009: COMPARISON: 09/08/2009. HISTORY: Right [...] pronounced than previous t racing Borderline ECG Lbd Teacher- JEFFREY MOSQUERA M.D. Reading Physician- JEFFREY MOSQUERA M.D. Released Date Time- 10/06/09 0445 Procedure Note Jeffrey Mosquera - 12/17/2009 Sinus rhythm Anterior T wave changes are nonspecific, more pronounced than previous t racing Borderline ECG Lbd Teacher- JEFFREY MOSQUERA M.D. Reading Physician- JEFFREY MOSQUERA M.D. Released Date Time- 10/06/09 0445 us Wiley Garza MD [facility] STAR CARD HISTORICAL Final Result * CT ABDOMEN W/O CONTRAST (09/08/2009 12:00 AM EST) Only the most recent of2 resultswithin the time period is included. Anatomical Region Laterality Modality Other 09/08/2009 09/08/2009 Narrative 09/08/2009 12:00 AM EST Name: BETZAIDA CHAN : 1960 VERIFIED [facility] Reason: ac9 stone protocol Dict.Staff: ESME FREEMAN [id number] Verified By: MIK FREEMAN Moncho: 09/09/09 11:04 [...] 01/21/2010 Name: BETZAIDA CHAN : 1960 VERIFIED [facility] Reason: ac9 stone protocol Dict.Staff: ESME FREEMAN [id number] Verified By: MIK FREEMAN Moncho: 09/09/09 11:04 [...] EDT Name: BETZAIDA CHAN : 1960 VERIFIED [facility] Reason: abd pain Dict.Staff: MARY RAMOS [id number] Verified By: ARMANDO SUNSHINE Moncho: 08/02/09 1:43 [...] ABNORMALITY. PROBABLE RIGHT KIDNEY STONE. NEGATIVE CHEST. [employer]/janelle DICTATED ON AUGUST 01, 2009 @ 15:41 HOURS. end of result Procedure Note Unknown, U - 01/21/2010 Name: BETZAIDA CHAN : 1960 VERIFIED [facility] Reason: abd pain Dict.Staff: MARY RAMOS [id number] Verified By: ARMANDO SUNSHINE Moncho: 08/02/09 1:43 [...] type 2 diabetes mellitus with complication, unspecified fci insulin use status 11/27/2016 Post-surgical hypothyroidism Postsurgical [...] excess calories (HCC) 01/31/2017 BMI 40.0-44.9, adult ([facility]) Body Mass Index 40.0-44.9, adult 01/31/2017 Weight gain Abnormal weight gain 03/06/2017 SATYA (obstructive sleep apnea) Obstructive sleep apnea (adult) (pediatric) 03/06/2017 Uncontrolled type 2 diabetes mellitus with complication, with long-term current use of insulin 03/06/2017 Post-surgical hypothyroidism Postsurgical hypothyroidism 03/06/2017 Follicular thyroid cancer (HCC) Malignant neoplasm of thyroid gland 03/06/2017 Morbid obesity due to excess calories (HCC) 03/06/2017 BMI 40.0-44.9, adult ([facility]) Body Mass Index 40.0-44.9, adult 03/06/2017 [...] Generalized anxiety disorder 03/30/2017 No diagnosis on [place] Observation of other suspected mental condition [...] 04/03/2017 Morbid obesity due to excess calories ([facility]) 04/16/2017 Morbid obesity with BMI of 40.0-44.9, adult ([facility]) 04/18/2017 Morbid obesity due to excess calories ([facility]) 05/03/2017 Morbid obesity, unspecified obesity type ([facility]) 05/03/2017 Morbid obesity with BMI of 40.0-44.9, adult ([facility]) 05/03/2017 Vitamin deficiency Unspecified vitamin deficiency 05/08/2017 Morbid obesity with BMI of 40.0-44.9, adult ([facility]) 05/17/2017 Uncontrolled type 2 diabetes mellitus with complication, with long-term current use of insulin 05/17/2017 Essential hypertension Unspecified essential hypertension 05/17/2017 Sleep apnea, unspecified type 05/17/2017 Morbid obesity due to excess calories ([facility]) 05/17/2017 Chest pain, unspecified type 05/17/2017 [...] Morbid obesity with BMI of 40.0-44.9, adult ([facility]) 05/17/2017 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, unspecified vessel or lesion type 05/21/2017 History of coronary artery stent placement 05/21/2017 Morbid obesity (HCC) Morbid obesity 05/21/2017 BMI 40.0-44.9, adult ([facility]) Body Mass Index 40.0-44.9, adult 05/21/2017 [...] 05/23/2017 Morbid obesity due to excess calories ([facility]) 05/23/2017 Morbid obesity ([facility]) Morbid obesity 05/30/2017 Fever, unspecified fever cause [...] an ideal body weight General No Jigna Dvoe LCSW HEMOGLOBIN A1C < 7.0 Result Component 7.2( 11:14 AM EDT) No Jigna Dove LCSW Care Teams [employer] Breathing Apparatus Relationship Specialty Start Date End Date Chris Serra MD [address] [place] [address] Physician Internal Medicine-Cardiovascular Disease 01/16/13
--- NOTE | 2025-09-12 01:09 | HMH.EDGENADL ---
Discharge Plan Disposition Patient Disposition: Admitted Condition: Good Clinical Impressions Clinical Impression: MRSA infection Discharge ED Provider: Anuradha Mazariegos General Adult HPI General Chief complaint: Extremity Injury, Upper Stated complaint: Trouble with Pic Line Time Seen by Provider: 09/12/25 00:49 Mode of Arrival: Ambulatory Source of Information: Patient Description of Symptoms (Recalled from ER Triage Doc. by RN): Pt reports she was getting her antibiotic tonight through her PICC to her right upper arm, and noticed and issue and felt leaking of liquid. Pt has michael wrap around arm to cover PICC upon arrival to ER. History of Present Illness HPI narrative: 65-year-old female presents to the ER concerned about PICC line displacement. Patient and daughter at bedside report having a PICC line in the proximal right upper extremity for treatment of MRSA infection. Patient has had the PICC line and treatment for approximately 10 days. She states the home nurse came and administered her morning dose which she received around noon, she had a small amount of bleeding at the site which they just bandaged. Patient is on heparin after each dose so they were not concerned about the bleeding, but tonight they went to administer her evening dose and it leaked from the PICC line. They came to the ER for further evaluation. Patient has Michael wrap around the site. The PICC line is present but obviously sticking out of the arm. Patient has no numbness, tingling, or weakness in the arm. No fevers or chills. Patient and family report that the MRSA infection is on her bottom due to a pressure wound that she sustained after having surgery and states that the infection looks significantly better. No other complaints or concerns. Related Data Home Medications ?Medication ?Instructions ?Recorded ?Confirmed aspirin 81 mg tablet,delayed 81 mg PO DAILY 12/01/20 09/07/25 release ergocalciferol (vitamin D2) 1,250 50,000 unit PO .TWICE A WEEK 07/02/23 09/07/25 mcg (50,000 unit) capsule blood-glucose meter (OneTouch #1 ea 10/27/24 09/07/25 Verio Flex Meter) azelastine 137 mcg-fluticasone 50 1 spray intranasal DAILY PRN 09/07/25 09/07/25 mcg/spray nasal spray Previous Rx's ?Medication ?Instructions ?Recorded estradiol 0.01% (0.1 mg/gram) See Rx Instructions vaginal 12/29/24 vaginal cream .COMPLEX #42.5 grams oxybutynin chloride 10 mg 10 mg PO DAILY 90 days #90 tabs 12/29/24 tablet,extended release 24 hr blood-glucose sensor (Dexcom G7 #9 ea 03/09/25 Sensor device) blood sugar diagnostic (OneTouch #100 strips 04/13/25 Verio test strips) dulaglutide 3 mg/0.5 mL See Rx Instructions .Route 05/18/25 subcutaneous pen injector .COMPLEX #2 mL (Trulicity) isosorbide mononitrate 30 mg See Rx Instructions .Route 05/18/25 tablet,extended release 24 hr .COMPLEX #30 tabs losartan 50 mg tablet See Rx Instructions .Route 05/18/25 .COMPLEX #60 tabs meloxicam 15 mg tablet See Rx Instructions .Route 05/18/25 Held on 08/05/25. .COMPLEX #30 tabs Instructions: Resume on 08/19/25. metoprolol succinate 50 mg See Rx Instructions .Route 05/18/25 tablet,extended release 24 hr .COMPLEX #30 tabs pantoprazole 40 mg tablet,delayed See Rx Instructions .Route 05/18/25 release .COMPLEX #30 tabs polysaccharide iron complex 180 mg See Rx Instructions .Route 05/18/25 iron capsule (Pro Fe) .COMPLEX #60 caps tizanidine 4 mg tablet See Rx Instructions .Route 05/18/25 .COMPLEX #90 tabs trazodone 100 mg tablet 100 mg PO QHS PRN sleep #90 tabs 06/16/25 levothyroxine 150 mcg tablet 150 mcg PO DAILY #90 tabs 06/18/25 (Synthroid) insulin degludec 100 unit/mL (3 46 unit (0.46 mL) .Route .COMPLEX 06/30/25 mL) subcutaneous pen (Tresiba #15 mL FlexTouch U-100 insulin) evolocumab 140 mg/mL subcutaneous See Rx Instructions .Route 07/06/25 pen injector (Repatha SureClick) .COMPLEX #2 mL aripiprazole 5 mg tablet See Rx Instructions .Route 08/03/25 .COMPLEX #30 tabs rimegepant 75 mg disintegrating See Rx Instructions .Route 08/06/25 tablet (Nurtec ODT) .COMPLEX #8 tabs montelukast 10 mg tablet See Rx Instructions .Route 08/17/25 .COMPLEX #30 tabs finerenone 10 mg tablet (Kerendia) See Rx Instructions .Route 08/19/25 .COMPLEX #30 tabs hydroxyzine HCl 25 mg tablet See Rx Instructions PO TID PRN 08/28/25 anxiety #120 tabs mupirocin 2 % topical ointment 1 applic topical TID #22 grams 08/28/25 (Centany) lancets 33 gauge (OneTouch Delica #100 ea 09/01/25 Plus Lancet) ketoconazole 2 % topical cream 1 applic topical BID 10 days #30 09/07/25 grams menthol 0.44 %-zinc oxide 20.6 % 1 applic topical QID PRN wound 09/07/25 topical ointment (Calmoseptine) healing #113 grams vancomycin 10 gram intravenous 1.5 g IV BID 7 days #14 ea 09/09/25 solution Allergies Allergy/AdvReac Type Severity Reaction Status Date / Time pregabalin (From Lyrica) Allergy Mild Rash Verified 09/07/25 15:01 codeine (CODEINE) Allergy Unknown I-ITCHING Verified 09/07/25 15:01 metformin (METFORMIN) Allergy Unknown HIVES, SOA Verified 09/07/25 15:01 pioglitazone (From ACTOS) Allergy Unknown SOA, HIVES Verified 09/07/25 15:01 gabapentin Allergy Unknown Verified 09/07/25 15:01 allergy reaction [id number] Reductase AdvReac Intermediate leg pain Verified 09/07/25 15:01 Inhibitor rosuvastatin (From Crestor) AdvReac Gastrointestinal Verified 09/07/25 15:01 Upset PFSH PFS Disclaimer: The information contained in this section may have been updated after the patient was seen, as this information can be updated by other users. Medical History Abdominal pain Acquired pes planus of both feet Anxiety Neurocognitive evaluation suggestive of significant anxiety mood disorder Arthritis Asthma Atypical chest pain CAD (coronary artery disease) Chest pain Cholecystectomy planned Class 1 obesity Diabetes mellitus Diabetes mellitus with diabetic neuropathy Dysphagia Elevated liver enzymes Enlarged lymph nodes Fibromyalgia Generalized anxiety disorder GERD (gastroesophageal reflux disease) History of thyroid cancer Status post radiation and thyroidectomy Hydrosalpinx Hyperlipidemia Hypertension Hypothalamic hypothyroidism Hypothyroidism (acquired) Low TSH level Lymphadenopathy Major depressive disorder Active follow-up with [facility] at [facility] Migraine Nausea Nodule of soft tissue Obesity, Class II, BMI 35-39.9 SATYA (obstructive sleep apnea) Mild but symptomatic and multiple risk factor for cardiovascular events, mild memory impairment. Trial with AutoPap was discussed and commended, order sent to [facility]. Osteoarthritis of left foot Posterior tibial tendinitis of left lower extremity Posterior tibial tendon dysfunction (PTTD) of left lower extremity Right lower lobe pneumonia Rupture of tibialis posterior tendon Screening for colon cancer Sleep apnea Synovitis of left ankle Thyroid cancer White matter disease Surgical History H/O gastric sleeve History of carpal tunnel surgery of left wrist History of carpal tunnel surgery of right wrist History of colonoscopy History of esophagogastroduodenoscopy (EGD) History of foot surgery History of heart artery stent History of partial hysterectomy Hx of heart artery stent S/P foot surgery, right Status post left foot surgery Family History Mother Diabetes Cancer Father Cancer Hypertension Dementia Grandmother Alzheimer's dementia, late onset Social History Smoking Status: Never smoker second hand exposure: No alcohol intake: never counseling given: No substance use type: marijuana counseling given: No (she is trying some of the gummies; cause she can't sleep) current occupational status: disabled Travel in the last 8 weeks?: None adopted: No caregiver/support person: No foster care: No household members: family housing: house lives independently: No marital status: number of children: 3 number of grandchildren: 2 education level: college service: No 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[employer] caffeine: Yes physical activity: none special ameya needs: No working smoke detector in home: Yes fire extinguisher in home: Yes carbon monox detector in home: No firearms in home: No do you feel safe at home: Yes victim of physical abuse: No victim of emotional abuse: No victim of sexual abuse: No would you like helpful sources: No Have you lived/traveled outside [place] in past 30 days?: No Contact w/someone who lives/traveled outside US past 30 days?: No Exposure to someone with infectious disease in past 14 days?: No Do you have a fever (greater than 100.4 F or 38 C)?: No Have you tested positive for COVID-19?: No Exposed to someone with COVID-19 in past 14 days?: No Do you have a sore throat?: No Do you have a cough?: No Do you have any weakness?: No Do you have any diarrhea?: No Are you experiencing any unusual bleeding?: No Do you have any muscle aches/pain?: No Do you have any abdominal pain?: No Are you experiencing loss of taste or smell?: No Other Medical History Have you received the Flu Vaccine for this season: No Have you received the Pneumonia Vaccine: Yes ROS Obtained: Yes Systems reviewed as appropriate & no additional complaints except as documented Per HPI Physical Exam General General appearance: alert and in no apparent distress Head Head exam: atraumatic and normocephalic Eye Eye exam: Present PERRL and EOMI ENT ENT exam: Present mucous membranes moist Neck Neck exam: Present normal inspection and full ROM Chest Chest inspection: Present symmetric chest wall rise Respiratory Respiratory exam: Absent respiratory distress or stridor Cardiovascular Cardiovascular exam: Present regular rate and normal rhythm Extremities Exam Extremities exam: Present full ROM and other (PICC line in the proximal right upper extremity is obviously dislodged, there is evidence of it leaking. There is no surrounding erythema, induration, or fluctuance. No pain. Neurovascularly intact distally.) Neurological Exam Neurological exam: Present alert and oriented X3; Absent motor sensory deficit Psychiatric Psychiatric exam: Present normal affect and normal mood Skin Skin exam: Present warm and dry Medical Decision Making Medical Records Medical records reviewed: Yes I reviewed the patient's medical records. Screening: Per USPSTF and CDC recommendations, given the prevalence of disease in our region, it is our hospital?s policy to screen for HIV and viral Hepatitis for all patients aged 18 and over and those with ongoing risk factors. Kristofer Inquiry Pt receiving controlled substance: No Vital Signs: 09/12/25 00:39 09/12/25 02:05 Temperature 97.9 F 97.8 F Temperature Source Oral Oral Pulse Rate 74 Pulse Rate [Left] 74 Respiratory Rate 16 16 Blood Pressure 189/93 H Blood Pressure [Right Arm] 192/88 H Blood Pressure Mean [Right Arm] 122 Blood Pressure Source Automatic Cuff Blood Pressure Source [Right Arm] Automatic Cuff 02 Sat by Pulse Oximetry 96 Oxygen Delivery Method Room Air Room Air Lab Data Lab Results 09/12/25 01:25: Sodium 137, Potassium 3.8, Chloride 104, Carbon Dioxide 28, Anion Gap 8.8, BUN 12, Creatinine 0.80, Estimated Creat Clear 74, Estimated GFR 72, Est GFR ( Amer) 88, Glucose 196 H, Calcium 8.8, Total Bilirubin 0.6, AST 20, ALT 12, Alkaline Phosphatase 110, Total Protein 7.2, Albumin 3.9, Globulin 3.3 H, Albumin/Globulin Ratio 1.2 09/12/25 02:00 09/12/25 01:25 Orders (Tests/Meds): ED MEDICATIONS Generic Name Dose Route Start Last Admin Trade Name Freq PRN Reason Stop Dose Admin Acetaminophen 650 mg 09/12/25 01:55 Acetaminophen 325mg Tab PO 10/12/25 01:54 Q4HP PRN Fever or Mild Pain (1-3) Vancomycin/PEG/NADA/Lysine/Water 1.5 gm in 300 mls @ 150 mls/hr 09/12/25 01:15 09/12/25 01:32 Vancomycin 1.5gm/300ml (Peg) Premix IV 09/12/25 03:14 150 mls/hr ONCE ONE Administration Insulin Human Lispro 0 unit 09/12/25 06:00 Humalog 100 Units/Ml 10ml Vial (Ssi) SUBCUT 10/12/25 05:59 ACHS [facility] Protocol Miscellaneous 1 each 09/12/25 01:15 Vancomycin Consult Request NOTAPPLIC 10/12/25 01:14 CONSULT PHARMACY [facility] Miscellaneous 1 each 09/12/25 02:00 Vancomycin Consult Request NOTAPPLIC 10/12/25 01:59 CONSULT PHARMACY [facility] Ondansetron HCl 4 mg 09/12/25 01:55 Ondansetron 4mg/2ml Vial IV 10/12/25 01:54 Q8HP PRN Nausea Sodium Chloride 10 ml 09/12/25 01:55 Sodium Chloride 0.9% 10ml Flush Syringe IV 10/12/25 01:54 NEEDED PRN Maintain IV Site ORDERS Category Date Time Status CBC w/Auto Diff [Complete Blood Count Auto Diff] Stat Lab 09/12/25 02:00 Completed CMP [Comprehensive Metabolic Panel] Stat Lab 09/12/25 01:25 Completed PT/INR [Prothrombin Time INR] Stat Lab 09/12/25 02:00 Received PTT [Activated Partial Thrombo Time] Stat Lab 09/12/25 02:00 Received Medical Decision Narrative: In summary, this 65-year-old female with comorbidities described in the HPI presents to the emergency department today with concerns of PICC line problem. On initial evaluation patient is hemodynamically stable, afebrile, overall well-appearing, patient has decubitus ulcer on both glutes with associated erythema but no induration or fluctuance, mildly tender to the touch, right upper extremity PICC line is dislodged, no evidence of infection at the site, neurovascularly intact. Differential diagnosis includes but is not limited to dislodged PICC line, I considered the possibility of worsening infection but do not appreciate evidence of this clinically, there does not appear to be infection at the PICC line site in the ulcer is reportedly appearing improved. I ordered basic hematologic and serum labs including coags since patient has been receiving heparin for PICC line management. These will also help me recheck her kidney function since she has been receiving steady vancomycin doses. She is receiving 1500 mg twice daily of vancomycin at home. I do not have the ability to place a PICC line in this facility at this time so patient will be admitted to the hospital for IV antibiotics and PICC line placement. Labs reviewed by me demonstrate no leukocytosis, mild anemia is nonactionable at this time, nonactionable CMP, notably her kidney function is stable with BUN 12, creatinine 0.8. Labs on 08/31 demonstrated normal kidney function BUN 16, creatinine 0.9. I believe the patient requires admission for continued IV antibiotics and replacement of the PICC line, patient and family are agreeable to this. I confirmed with warehouse shipper that someone would be available to replace the patient's PICC line if admitted. I discussed this case with the hospitalist, Augie, who graciously accepted the patient for admission for continued antibiotics and to have PICC line replaced. Critical Care Critical Care Time Critical Care Time: No
[2025-09-12] MEDS: VANCOMYCIN/WATER FOR INJ (PEG) 1.5 GM/300 ML PIGGYBACK IV (01:32)
[2025-09-12 01:43] LABS: Alanine Aminotransferase 12 U/L (12-78); Albumin Level 3.9 g/dl (3.5-5.0); Albumin/Globulin Ratio 1.2 (1.1-1.8); Alkaline Phosphatase 110 U/L (38-126); Anion Gap 8.8 mEq/L (5-15); Aspartate Amino Transferase 20 U/L (14-36); Bilirubin,Total 0.6 mg/dl (0.2-1.3); Blood Urea Nitrogen 12 mg/dl (7-17); Calcium 8.8 mg/dl (8.4-10.2); Carbon Dioxide 28 mmol/L (22.0-30.0); Chloride 104 mmol/L (98-107); Creatinine Clearance Estimated 74 mL/min (50-200); Creatinine,Serum 0.80 mg/dl (0.52-1.04); Estimated Glomerular Filt Rate 72 ml/min (>60); GFR (African American) 88 ML/MIN (>60); Globulin 3.3 g/dL (1.3-3.2); Glucose 196 mg/dl (74-100); Potassium 3.8 mmoL/L (3.5-5.1); Sodium 137 mmol/L (136-145); Total Protein,Serum 7.2 g/dl (6.3-8.2)
[2025-09-12 02:00] VITALS: BP 179/74; PULSE 74; RESP 16; TEMP 36.8; O2SAT 97; BMI 33.1
[2025-09-12 02:05] VITALS: BP 189/93; PULSE 74; RESP 16; TEMP 36.6; O2SAT 97
[2025-09-12 02:08] LABS: Hematocrit 34.8 % (37.0-47.0); Hemoglobin 11.6 g/dL (12.2-16.2); Immature Granulocytes % 0.3 %; Mean Corpuscular HGB Conc 33.3 g/dL (31.8-35.4); Mean Corpuscular Hemoglobin 27.5 pg (27.0-31.2); Mean Corpuscular Volume 82.5 fl (81-99); Nucleated Red Blood Cells % 0 %; Platelet Count 152 K/mm3 (142-424); Red Blood Count 4.22 M/mm3 (4.20-5.40); Red Cell Distribution Width-SD 38.7 fL; White Blood Count 6.6 K/mm3 (4.8-10.8)
[2025-09-12 02:19] LABS: Activated Partial Thrombo Time 26.6 seconds (22.8-30.6); INR 0.99 (0.9-1.1); Prothrombin Time 11.0 seconds (10.1-12.5)
--- NOTE | 2025-09-12 02:25 | PC.NURSE ---
Patient arrived to floor via wheelchair @ 0220
--- NOTE | 2025-09-12 03:24 | P.HP_ITS ---
<Statement entered by Boris Duran MD - 09/15/25 15:56> Agree with plan of care as outlined by the OFFICE MACHINE SERVICER. History of Present Illness *Admission Date: 09/12/25 *Reason for visit:: PICC line leaking *History of present illness: This is a 65-year-old female who has a past medical history significant for hydrosalpinx, depression,, obstructive sleep apnea, elevated liver enzymes, coronary artery disease, posterior tibial tendon dysfunction, osteoarthritis, hypothyroidism, GERD, hyperlipidemia, fibromyalgia, asthma, sleep apnea, thyroid cancer, and hypertension who presents due to her PICC line leaking. Due to patient's symptoms, she presented to the emergency room for evaluation. While in the if determined that PICC line was no longer in the vessel. There were no signs of extravasation. Patient is receiving 1500 mg of vancomycin IV twice daily for suspected MRSA infection. Since patient does not have the ability to administer her antibiotics, she has been admitted for further management. During my evaluation of the patient, patient states she was recently diagnosed with MRSA infection to left intergluteal cleft ulcer. Patient's daughter at the bedside informs me that patient has attended 10-day course of antibiotics and this is approximately a 7-day. She reports that they are receiving blood draws on Fridays. She reports that home health was able to administer her morning dose for yesterday without any issues however with a 1 to administer patient's p.m. dose they noticed some leaking around the PICC line site. Patient has no further complaints. It is worth mentioning that patient's wound culture obtained on August 18, 2025 showed Staphylococcus epididymisx2 and corynebacterium matruchotii. Cultures identifying MRSA are currently not available in the EMR. Patient is currently denying any chest pain, lighthead edness, dizziness, fever, chills, or, shortness of breath, dyspnea, or diarrhea. Additional pertinent labs obtained including hemoglobin of 11.6, hematocrit 34.8, and a blood glucose of 196. [facility] Disclaimer: The information contained in this section may have been updated after the patient was seen, as this information can be updated by other users. Medical History Abdominal pain Acquired pes planus of both feet Anxiety Neurocognitive evaluation suggestive of significant anxiety mood disorder Arthritis Asthma Atypical chest pain CAD (coronary artery disease) Chest pain Cholecystectomy planned Class 1 obesity Diabetes mellitus Diabetes mellitus with diabetic neuropathy Dysphagia Elevated liver enzymes Enlarged lymph nodes Fibromyalgia Generalized anxiety disorder GERD (gastroesophageal reflux disease) History of thyroid cancer Status post radiation and thyroidectomy Hydrosalpinx Hyperlipidemia Hypertension Hypothalamic hypothyroidism Hypothyroidism (acquired) Low TSH level Lymphadenopathy Major depressive disorder Active follow-up with Behavioral Health at [facility] Migraine Nausea Nodule of soft tissue Obesity, Class II, BMI 35-39.9 SATYA (obstructive sleep apnea) Mild but symptomatic and multiple risk factor for cardiovascular events, mild memory impairment. Trial with AutoPap was discussed and commended, order sent to [facility]. Osteoarthritis of left foot Posterior tibial tendinitis of left lower extremity Posterior tibial tendon dysfunction (PTTD) of left lower extremity Right lower lobe pneumonia Rupture of tibialis posterior tendon Screening for colon cancer Sleep apnea Synovitis of left ankle Thyroid cancer White matter disease Surgical History H/O gastric sleeve History of carpal tunnel surgery of left wrist History of carpal tunnel surgery of right wrist History of colonoscopy History of esophagogastroduodenoscopy (EGD) History of foot surgery History of heart artery stent History of partial hysterectomy Hx of heart artery stent S/P foot surgery, right Status post left foot surgery Family History Mother Diabetes Cancer Father Cancer Hypertension Dementia Grandmother Alzheimer's dementia, late onset Social History Smoking Status: Never smoker second hand exposure: No alcohol intake: never counseling given: No substance use type: marijuana counseling given: No (she is trying some of the gummies; cause she can't sleep) current occupational status: disabled Travel in the last 8 weeks?: None adopted: No caregiver/support person: No foster care: No household members: family housing: house lives independently: No marital status: number of children: 3 number of grandchildren: 2 education level: college service: No 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[email or web address]; 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 caffeine: Yes physical activity: none special ameya needs: No working smoke detector in home: Yes fire extinguisher in home: Yes carbon monox detector in home: No firearms in home: No do you feel safe at home: Yes victim of physical abuse: No victim of emotional abuse: No victim of sexual abuse: No would you like helpful sources: No Have you lived/traveled outside US in past 30 days?: No Contact w/someone who lives/traveled outside US past 30 days?: No Exposure to someone with infectious disease in past 14 days?: No Do you have a fever (greater than 100.4 F or 38 C)?: No Have you tested positive for COVID-19?: No Exposed to someone with COVID-19 in past 14 days?: No Do you have a sore throat?: No Do you have a cough?: No Do you have any weakness?: No Do you have any diarrhea?: No Are you experiencing any unusual bleeding?: No Do you have any muscle aches/pain?: No Do you have any abdominal pain?: No Are you experiencing loss of taste or smell?: No Other Medical History Have you received the Flu Vaccine for this season: Yes Have you received the Pneumonia Vaccine: Yes Review of Systems Review of Systems Review of systems:: pertinent systems reviewed and negative unless documented below Constitutional Constitutional: Reports system reviewed and no additional complaints, except as documented Eyes Eyes: Reports system reviewed and no additional complaints, except as documented ENT Ears, Nose, Mouth, and Throat: Reports system reviewed and no additional complaints, except as documented *Cardiovascular Cardiovascular: Reports system reviewed and no additional complaints, except as documented *Respiratory Respiratory: Reports system reviewed and no additional complaints, except as documented *Gastrointestinal Gastrointestinal: Reports system reviewed and no additional complaints, except as documented *Genitourinary Genitourinary: Reports system reviewed and no additional complaints, except as documented *Musculoskeletal Musculoskeletal: Reports system reviewed and no additional complaints, except as documented Integumentary/Breasts Skin/Breast: Reports skin ulcer *Neurologic Neurologic: Reports system reviewed and no additional complaints, except as documented Psychiatric Psychiatric: Reports system reviewed and no additional complaints, except as documented Endocrine Endocrine: Reports system reviewed and no additional complaints, except as documented Hematologic/Lymphatic Hematologic/Lymphatic: Reports system reviewed and no additional complaints, except as documented Allergic/Immunologic Allergic/Immunologic: Reports system reviewed and no additional complaints, except as documented Meds Home Medications and Allergies Home Medications ?Medication ?Instructions ?Recorded ?Confirmed ?Type aspirin 81 mg tablet,delayed 81 mg PO DAILY 12/01/20 1 11/08/24 History release ergocalciferol (vitamin D2) 1,250 50,000 unit PO .TWIC E A WEEK 07/02/23 09/07/25 History mcg (50,000 unit) capsule blood-glucose meter (OneTouch #1 ea 10/27/24 09/07/25 History Verio Flex Meter) estradiol 0.01% (0.1 mg/gram) See Rx Instructions vagi nal 12/29/24 09/07/25 Rx vaginal cream .COMPLEX #42.5 grams oxybutynin chloride 10 mg 10 mg PO DAILY 90 days #90 t abs 12/29/24 09/07/25 Rx tablet,extended release 24 hr blood-glucose sensor (Volpit G7 #9 ea 03/09/25 5 Rx Sensor device) blood sugar diagnostic (OneTouch #100 strips 04/13/25 09/07/25 Rx Verio test strips) dulaglutide 3 mg/0.5 mL See Rx Instructions .Route 0 05/18/25 09/07/25 Rx subcutaneous pen injector .COMPLEX #2 mL (Trulicity) isosorbide mononitrate 30 mg See Rx Instructions .Rout e 05/18/25 09/07/25 Rx tablet,extended release 24 hr .COMPLEX #30 tabs losartan 50 mg tablet See Rx Instructions .Route 0 05/18/25 09/07/25 Rx .COMPLEX #60 tabs meloxicam 15 mg tablet See Rx Instructions .Route 0 05/18/25 09/07/25 Rx Held on 08/05/25. .COMPLEX #30 tabs Instructions: Resume on 08/19/25. metoprolol succinate 50 mg See Rx Instructions .Route 05/18/25 09/07/25 Rx tablet,extended release 24 hr .COMPLEX #30 tabs pantoprazole 40 mg tablet,delayed See Rx Instructions .Route 05/18/25 09/07/25 Rx release .COMPLEX #30 tabs polysaccharide iron complex 180 mg See Rx Instructions .Route 05/18/25 09/07/25 Rx iron capsule (Pro Fe) .COMPLEX #60 caps tizanidine 4 mg tablet See Rx Instructions .Route 0 05/18/25 09/07/25 Rx .COMPLEX #90 tabs trazodone 100 mg tablet 100 mg PO QHS PRN sleep #90 tabs 06/16/25 09/07/25 Rx levothyroxine 150 mcg tablet 150 mcg PO DAILY #90 tabs 06/18/25 09/07/25 Rx (Synthroid) insulin degludec 100 unit/mL (3 46 unit (0.46 mL) .Rou te .COMPLEX 06/30/25 09/07/25 Rx mL) subcutaneous pen (Tresiba #15 mL FlexTouch U-100 insulin) evolocumab 140 mg/mL subcutaneous See Rx Instructions .Route 07/06/25 09/07/25 Rx pen injector (Repalva LaraCristoferick) .COMPLEX #2 mL aripiprazole 5 mg tablet See Rx Instructions .Route 1 09/07/25 Rx .COMPLEX #30 tabs rimegepant 75 mg disintegrating See Rx Instructions .R oute 08/06/25 09/07/25 Rx tablet (Nurtec ODT) .COMPLEX #8 tabs montelukast 10 mg tablet See Rx Instructions .Route 1 10/17/24 09/07/25 Rx .COMPLEX #30 tabs finerenone 10 mg tablet (Kerendia) See Rx Instructions .Route 08/19/25 09/07/25 Rx .COMPLEX #30 tabs hydroxyzine HCl 25 mg tablet See Rx Instructions PO TI D PRN 08/28/25 09/07/25 Rx anxiety #120 tabs mupirocin 2 % topical ointment 1 applic topical TID #2 2 grams 08/28/25 09/07/25 Rx (Centany) lancets 33 gauge (OneTouch Delica #100 ea 09/01/2511/01 Rx Plus Lancet) azelastine 137 mcg-fluticasone 50 1 spray intranasal D AILY PRN 09/07/25 09/07/25 History mcg/spray nasal spray ketoconazole 2 % topical cream 1 applic topical BID 10 days #30 09/07/25 09/07/25 Rx grams menthol 0.44 %-zinc oxide 20.6 % 1 applic topical QID PRN wound 09/07/25 09/07/25 Rx topical ointment (Calmoseptine) healing #113 grams vancomycin 10 gram intravenous 1.5 g IV BID 7 days #14 ea 09/09/25 Rx solution New Prescriptions to Start Prescriptions: Allergies Allergy/AdvReac Type Severity Reaction Status Date / Time pregabalin (From Lyrica) Allergy Mild Rash Verified 09/07/25 15:01 codeine (CODEINE) Allergy Unknown I-ITCHING Verified 09/07/25 15:01 metformin (METFORMIN) Allergy Unknown HIVES, SOA Verified 09/07/25 15:01 pioglitazone (From ACTOS) Allergy Unknown SOA, HIVES Verified 09/07/25 15:01 gabapentin Allergy Unknown Verified 09/07/25 15:01 allergy reaction [id number] Reductase AdvReac Intermediate leg pain Verified 09/07/25 15:01 Inhibitor rosuvastatin (From Crestor) AdvReac Gastrointestinal Verified 09/07/25 15:01 Upset Exam Data for Last 24 hours Vital signs and Labs for Last 24 Hours: Temp Pulse Resp BP Pulse Ox O2 Del Method 97.8 F 74 16 189/93 H 97 Room Air 09/12/25 02:05 09/12/25 02:05 09/12/25 02:05 09/12/25 02:05 09/12/25 02:00 09/12/25 02:05 Laboratory Results - last 24 hr 09/12/25 01:25: Sodium 137, Potassium 3.8, Chloride 104, Carbon Dioxide 28, Anion Gap 8.8, BUN 12, Creatinine 0.80, Estimated Creat Clear 74, Estimated GFR 72, Est GFR ( Amer) 88, Glucose 196 H, Calcium 8.8, Total Bilirubin 0.6, AST 20, ALT 12, Alkaline Phosphatase 110, Total Protein 7.2, Albumin 3.9, Globulin 3.3 H, Albumin/Globulin Ratio 1.2 09/12/25 02:00: WBC 6.6, RBC 4.22, Hgb 11.6 L, Hct 34.8 L, MCV 82.5, MCH 27.5, MCHC 33.3, RDW 12.9, Plt Count 152, MPV 10.2, Neut % (Auto) 63.3, Lymph % (Auto) 25.0, [place] % (Auto) 8.6, Eos % (Auto) 2.3, Baso % (Auto) 0.5, Neut # (Auto) 4.2, Lymph # (Auto) 1.7, [place] # (Auto) 0.6, Eos # (Auto) 0.2, Baso # (Auto) 0.0, PT 11.0, INR 0.99, APTT 26.6 I & O for Last 24 hours: Intake & Output 09/09/25 09/10/25 09/11/25 09/12/25 23:59 23:59 23:59 23:59 Weight 81.647 kg Constitutional Constitutional: no acute distress, obese and cooperative *Routine HEENT Exam Head: Present normocephalic and atraumatic Eye: Present EOMI and PERRL ENT: Present mucous membranes moist *Routine Neck Exam Neck: Present supple, full ROM and trachea midline *Routine Respiratory Exam Respiratory: Present CTA bilaterally, normal respiratory effort, able to speak in complete sentences and symmetric chest movement *Routine Cardiovascular Exam Cardiovascular: Present RRR, Normal S1 and Normal S2 *Routine Abdominal Exam Abdominal: Present soft, normoactive bowel sounds and obese *Routine Rectal Exam Rectal:: deferred *Routine Genitalia Exam Genitalia:: deferred *Routine Extremities Exam Extremities: Present full ROM and pulses intact Routine Back/Spine/Pelvis Exam Back/Spine: Present full ROM *Routine Skin Exam Skin: Present intact, erythema, dry, warm and normal turgor *Routine Neurological Exam Neurological: Present alert, oriented X3, CN II-XII intact, moving all extremities and normal speech Routine Psychiatric Exam Psychiatric: Present normal affect, normal thought process, cooperative, good insight and good judgment H&P: Result Impressions 65-year-old female presents with malfunctioning device Assessment and Plan *Assessment and plan (1) MRSA infection: Status: Acute Category: Medical Code(s): A49.02 - Methicillin resistant Staphylococcus aureus infection, unspecified site (2) Malfunction of device: Status: Acute Qualifiers: Encounter type: initial encounter Qualified Code(s): T85.698A - Other mechanical complication of other specified internal prosthetic devices, implants and grafts, initial encounter Category: Medical Code(s): T85.698A - Other mechanical complication of other specified internal prosthetic devices, implants and grafts, initial encounter Plan Assessment: MRSA infection of left intergluteal cleft pressure ulcer Malfunctioning device: PICC line was out of the vessel - Will continue 1500 mg of vancomycin IV twice daily - Consult pharmacy for management - Will see if we can reestablish PICC line - Current cultures show Staphylococcus epididymis. Patient has 3 isolates and 1 does show beta-lactamase positive/MRSA positive. Plan: Admit patient to the MedSurg unit Activity as tolerated Saline lock 1800 ADA/cardiac diet Accu-Cheks AC and at bedtime with mild sliding scale coverage 4 mg Zofran IV push every 8 hours pain nausea vomit Full code I will discuss this case with attending physician Dr. Duran and I look forwar d to more input
[2025-09-12 04:00] VITALS: BP 146/67; PULSE 75; RESP 14; TEMP 36.8; O2SAT 95; BMI 33.2
[2025-09-12] MEDS: humaLOG 100 UNITS/ML 10ML VIAL (SSI) SUBCUT ×2 (06:48→16:25)
[2025-09-12 06:51] LABS: POC Glucose,Bedside 251 gm/dL (70-110)
[2025-09-12 08:00] VITALS: BP 181/82; PULSE 71; RESP 16; TEMP 36.8; O2SAT 98
--- NOTE | 2025-09-12 09:49 | CT_ITS ---
PROCEDURE INFORMATION: Exam: CT Abdomen And Pelvis With Contrast Exam date and time: 09/12/2025 11:18 AM Age: 65 years old Clinical indication: Pain; Other: Erythema upper buttocks; Additional info: Pain erythema upper buttocks TECHNIQUE: Imaging protocol: Computed tomography of the abdomen and pelvis with contrast. Radiation optimization: All CT scans at this facility use at least one of these dose optimization techniques: automated exposure control; mA and/or kV adjustment per patient size (includes targeted exams where dose is matched to clinical indication); or iterative reconstruction. Contrast material: ISOVUE; Contrast volume: 75 ml; Contrast route: IV; COMPARISON: CT ABDOMEN PELVIS WO/W CON 10/31/2023 8:48 AM FINDINGS: Liver: Normal. No mass. Gallbladder and biliary ducts: There has been a cholecystectomy. Pancreas: Normal. No ductal dilation. Spleen: Normal. No splenomegaly. Adrenal glands: Normal. No mass. Kidneys and ureters: No perinephric stranding. Bilateral punctate caliceal calculi. No hydroureteronephrosis on either side. Stomach and bowel: No bowel wall thickening or distention. Appendix: A normal appendix is identified. Intraperitoneal space: Unremarkable. No free air. No significant fluid collection. Vasculature: The aorta demonstrates mild atherosclerotic calcification. Portal vein is patent. Lymph nodes: Unremarkable. No enlarged lymph nodes. Urinary bladder: Unremarkable as visualized. Reproductive: Status post hysterectomy. Bones/joints: Unremarkable. No acute fracture. Soft tissues: There is no significant cellulitis or discrete collection in the gluteal regions. IMPRESSION: 1. No acute abnormality in the abdomen or pelvis 2. There is no significant cellulitis or discrete collection in the gluteal regions.
[2025-09-12 10:18] LABS: C-Reactive Protein 48.6 mg/L (0-4)
[2025-09-12] MEDS: SODIUM CHLORIDE 0.9% 10ML SYR (RAD ONLY) 10 ML IV (11:23)
[2025-09-12] MEDS: IOPAMIDOL-370 (76%);100ML BOTTLE 75 ML IV (11:23)
--- NOTE | 2025-09-12 11:53 | EXP.PHA.CONS ---
Pharmacy Consult Date: 09/12/25 Time: 11:53 Referring provider: DR. HICKS Reason for Consult:: VANCOMYCIN DOSING Allergies Allergy/AdvReac Type Severity Reaction Status Date / Time pregabalin (From Lyrica) Allergy Mild Rash Verified 09/07/25 15:01 codeine (CODEINE) Allergy Unknown I-ITCHING Verified 09/07/25 15:01 metformin (METFORMIN) Allergy Unknown HIVES, SOA Verified 09/07/25 15:01 pioglitazone (From ACTOS) Allergy Unknown SOA, HIVES Verified 09/07/25 15:01 gabapentin Allergy Unknown Verified 09/07/25 15:01 allergy reaction [id number] Reductase AdvReac Intermediate leg pain Verified 09/07/25 15:01 Inhibitor rosuvastatin (From Crestor) AdvReac Gastrointestinal Verified 09/07/25 15:01 Upset Home Medications ?Medication ?Instructions ?Recorded ?Confirmed ?Type aspirin 81 mg tablet,delayed 81 mg PO DAILY 12/01/20 09/07/25 History release ergocalciferol (vitamin D2) 1,250 50,000 unit PO .TWICE A WEEK 07/02/23 09/07/25 History mcg (50,000 unit) capsule blood-glucose meter (OneTouch #1 ea 10/27/24 09/07/25 History Verio Flex Meter) estradiol 0.01% (0.1 mg/gram) See Rx Instructions vaginal 12/29/24 09/07/25 Rx vaginal cream .COMPLEX #42.5 grams oxybutynin chloride 10 mg 10 mg PO DAILY 90 days #90 tabs 12/29/24 09/07/25 Rx tablet,extended release 24 hr blood-glucose sensor (Dexcom G7 #9 ea 03/09/25 09/07/25 Rx Sensor device) blood sugar diagnostic (OneTouch #100 strips 04/13/25 09/07/25 Rx Verio test strips) dulaglutide 3 mg/0.5 mL See Rx Instructions .Route 05/18/25 09/07/25 Rx subcutaneous pen injector .COMPLEX #2 mL (Trulicity) isosorbide mononitrate 30 mg See Rx Instructions .Route 05/18/25 09/07/25 Rx tablet,extended release 24 hr .COMPLEX #30 tabs losartan 50 mg tablet See Rx Instructions .Route 05/18/25 09/07/25 Rx .COMPLEX #60 tabs meloxicam 15 mg tablet See Rx Instructions .Route 05/18/25 09/07/25 Rx Held on 08/05/25. .COMPLEX #30 tabs Instructions: Resume on 08/19/25. metoprolol succinate 50 mg See Rx Instructions .Route 05/18/25 09/07/25 Rx tablet,extended release 24 hr .COMPLEX #30 tabs pantoprazole 40 mg tablet,delayed See Rx Instructions .Route 05/18/25 09/07/25 Rx release .COMPLEX #30 tabs polysaccharide iron complex 180 mg See Rx Instructions .Route 05/18/25 09/07/25 Rx iron capsule (Pro Fe) .COMPLEX #60 caps tizanidine 4 mg tablet See Rx Instructions .Route 05/18/25 09/07/25 Rx .COMPLEX #90 tabs trazodone 100 mg tablet 100 mg PO QHS PRN sleep #90 tabs 06/16/25 09/07/25 Rx levothyroxine 150 mcg tablet 150 mcg PO DAILY #90 tabs 06/18/25 09/07/25 Rx (Synthroid) insulin degludec 100 unit/mL (3 46 unit (0.46 mL) .Route .COMPLEX 06/30/25 09/07/25 Rx mL) subcutaneous pen (Tresiba #15 mL FlexTouch U-100 insulin) evolocumab 140 mg/mL subcutaneous See Rx Instructions .Route 07/06/25 09/07/25 Rx pen injector (Repatha SureClick) .COMPLEX #2 mL aripiprazole 5 mg tablet See Rx Instructions .Route 08/03/25 09/07/25 Rx .COMPLEX #30 tabs rimegepant 75 mg disintegrating See Rx Instructions .Route 08/06/25 09/07/25 Rx tablet (Nurtec ODT) .COMPLEX #8 tabs montelukast 10 mg tablet See Rx Instructions .Route 08/17/25 09/07/25 Rx .COMPLEX #30 tabs finerenone 10 mg tablet (Kerendia) See Rx Instructions .Route 08/19/25 09/07/25 Rx .COMPLEX #30 tabs hydroxyzine HCl 25 mg tablet See Rx Instructions PO TID PRN 08/28/25 09/07/25 Rx anxiety #120 tabs mupirocin 2 % topical ointment 1 applic topical TID #22 grams 08/28/25 09/07/25 Rx (Centany) lancets 33 gauge (OneTouch Delica #100 ea 09/01/25 09/07/25 Rx Plus Lancet) azelastine 137 mcg-fluticasone 50 1 spray intranasal DAILY PRN 09/07/25 09/07/25 History mcg/spray nasal spray ketoconazole 2 % topical cream 1 applic topical BID 10 days #30 09/07/25 09/07/25 Rx grams menthol 0.44 %-zinc oxide 20.6 % 1 applic topical QID PRN wound 09/07/25 09/07/25 Rx topical ointment (Calmoseptine) healing #113 grams vancomycin 10 gram intravenous 1.5 g IV BID 7 days #14 ea 09/09/25 Rx solution New Prescriptions to Start Prescriptions: Height: 1.57 m Weight: 81.828 kg Laboratory Results:: Laboratory Results - last 24 hr 09/12/25 01:25: Sodium 137, Potassium 3.8, Chloride 104, Carbon Dioxide 28, Anion Gap 8.8, BUN 12, Creatinine 0.80, Estimated Creat Clear 74, Estimated GFR 72, Est GFR ( Amer) 88, Glucose 196 H, Calcium 8.8, Total Bilirubin 0.6, AST 20, ALT 12, Alkaline Phosphatase 110, C-Reactive Protein 48.6 H, Total Protein 7.2, Albumin 3.9, Globulin 3.3 H, Albumin/Globulin Ratio 1.2 09/12/25 02:00: WBC 6.6, RBC 4.22, Hgb 11.6 L, Hct 34.8 L, MCV 82.5, MCH 27.5, MCHC 33.3, RDW 12.9, Plt Count 152, MPV 10.2, Neut % (Auto) 63.3, Lymph % (Auto) 25.0, [place] % (Auto) 8.6, Eos % (Auto) 2.3, Baso % (Auto) 0.5, Neut # (Auto) 4.2, Lymph # (Auto) 1.7, [place] # (Auto) 0.6, Eos # (Auto) 0.2, Baso # (Auto) 0.0, PT 11.0, INR 0.99, APTT 26.6 09/12/25 06:38: POC Glucose 251 H Medical History: Medical History (Updated 09/12/25 @ 03:33 by Augie Randall APRN) Hydrosalpinx Major depressive disorder Generalized anxiety disorder SATYA (obstructive sleep apnea) Anxiety Elevated liver enzymes CAD (coronary artery disease) Posterior tibial tendon dysfunction (PTTD) of left lower extremity Nausea Abdominal pain Dysphagia Enlarged lymph nodes Nodule of soft tissue Class 1 obesity Diabetes mellitus with diabetic neuropathy Osteoarthritis of left foot Posterior tibial tendinitis of left lower extremity Lymphadenopathy History of thyroid cancer Low TSH level Hypothyroidism (acquired) Screening for colon cancer GERD (gastroesophageal reflux disease) Hyperlipidemia White matter disease Fibromyalgia Asthma Sleep apnea Migraine Obesity, Class II, BMI 35-39.9 Synovitis of left ankle Rupture of tibialis posterior tendon Acquired pes planus of both feet Chest pain Cholecystectomy planned Hypothalamic hypothyroidism Arthritis Thyroid cancer Diabetes mellitus Hypertension Atypical chest pain Right lower lobe pneumonia Assessment and Plan Assessment and plan all Dx Assessment and Plan for all problems:: Pharmacokinetic dosing service Objective: Patient: Floor: Age: 65 yo Serum creatinine: 0.80 mg/dL Height: 61.8 Inches Weight (kg): 81.8 Assessment: IBW (kg): 49.64 Dosing wt(kg): 81.8 Estimated Creatinine clearance (ml/min): 56.4 CRCL method: Cockcroft and Gault using ibw(default). Drug selected: Vancomycin Loading dose (mg): Vd (liters): 69.5 (factor used: 0.85 L/kg) [place] (hr-1): 0.051 Half life (hrs): 13.59 CLvanco=?? 3.544 L/hr Recommended dose: 1500 mg Interval: 18 hrs Infusion time (hrs): 2.0 Predicted peak (mcg/mL): 34.2 Predicted trough (mcg/mL): 15.12 Total body weight is being used for vancomycin dosing. Recommendations: Give Vancomycin 1500 mg q 18 hrs with an expected Cpeak of 34.2 mcg/ml and an expected Ctrough of 15.12 mcg/ml AUC 0-24 /MICHAELLE Data: MICHAELLE 0.5 mcg/mL:?? AUC/MICHAELLE:? 1128.7 MIHCAELLE 1.0 mcg/mL:?? AUC/MICHAELLE:? 564.3 --------- MICHAELLE 1.5 mcg/mL:?? AUC/MICHAELLE:? 376.2 MICHAELLE 2.0 mcg/mL:?? AUC/MICHAELLE:? 282.2 Thank you for the consult, will continue to follow. -CHELLY RUANO, GERALDOD
--- NOTE | 2025-09-12 12:10 | HMH.PHAINT1 ---
Pharmacy Intervention Comments: MEDICATION RECONCILIATION COMPLETED ON PATIENT USING EXTERNAL FILL HISTORY FROM PHARMACY AND LIST FROM PCP OFFICE. -CHELLY RUANO, GERALDOD
--- NOTE | 2025-09-12 14:19 | EXP.DC.SUM ---
General Admission date:: 09/12/25 HPI HPI HPI: This is a 65-year-old female who has a past medical history significant for hydrosalpinx, depression,, obstructive sleep apnea, elevated liver enzymes, coronary artery disease, posterior tibial tendon dysfunction, osteoarthritis, hypothyroidism, GERD, hyperlipidemia, fibromyalgia, asthma, sleep apnea, thyroid cancer, and hypertension who presents due to her PICC line leaking. Due to patient's symptoms, she presented to the emergency room for evaluation. While in the if determined that PICC line was no longer in the vessel. There were no signs of extravasation. Patient is receiving 1500 mg of vancomycin IV twice daily for suspected MRSA infection. Since patient does not have the ability to administer her antibiotics, she has been admitted for further management. During my evaluation of the patient, patient states she was recently diagnosed with MRSA infection to left intergluteal cleft ulcer. Patient's daughter at the bedside informs me that patient has attended 10-day course of antibiotics and this is approximately a 7-day. She reports that they are receiving blood draws on Fridays. She reports that home health was able to administer her morning dose for yesterday without any issues however with a 1 to administer patient's p.m. dose they noticed some leaking around the PICC line site. Patient has no further complaints. It is worth mentioning that patient's wound culture obtained on August 18, 2025 showed Staphylococcus epididymisx2 and corynebacterium matruchotii. Cultures identifying MRSA are currently not available in the EMR. Patient is currently denying any chest pain, lightheadedness, dizziness, fever, chills, or, shortness of breath, dyspnea, or diarrhea. Additional pertinent labs obtained including hemoglobin of 11.6, hematocrit 34.8, and a blood glucose of 196. Hospital Course Hospital Course Hospital Course: Angeles Machado is a 65-year-old female who presented with a leaking PICC line and was admitted for IV antibiotics for suspected sacral decubitus ulcer MRSA infection. #Decubitus ulcer stage I #History of MRSA infection ? Patient reports PICC line began leaking last night after it was not clamped after yesterday morning's vancomycin dose. ? Wound culture on 08/25/2025 revealed staph epidermis with methicillin resistance, and Corynebacterium. Patient has been treated with 7 days of IV vancomycin until started leaking. ? On my evaluation of ulcer at the superior aspect of buttocks there was some erythema and tenderness to palpation, but more consistent with bedsore. ? Out of caution due to tenderness, CT was obtained which did not indicate cellulitis or abscess. ? Patient does not need further antibiotics at this time. Recommended decreasing pressure off buttocks, frequent turns if sitting/laying. ? Continue home health wound care. Will follow-up with PCP within 2 weeks. #Hypertension ? Continue home losartan, metoprolol, Imdur, and Kerendia. #Hypothyroidism ? Continue levothyroxine 150 mcg. Total time spent on discharge: 32 minutes on chart review, counseling, documentation, and direct care with patient. Exam Data for Last 24 hours Vital signs and Labs for Last 24 Hours: Temp Pulse Resp BP Pulse Ox O2 Del Method O2 Flow Rate 98.3 F 71 16 181/82 H 98 Room Air 2 09/12/25 08:00 09/12/25 08:00 09/12/25 08:00 09/12/25 08:00 09/12/25 08:00 09/12/25 08:00 09/12/25 01:49 Laboratory Results - last 24 hr 09/12/25 01:25: Sodium 137, Potassium 3.8, Chloride 104, Carbon Dioxide 28, Anion Gap 8.8, BUN 12, Creatinine 0.80, Estimated Creat Clear 74, Estimated GFR 72, Est GFR ( Amer) 88, Glucose 196 H, Calcium 8.8, Total Bilirubin 0.6, AST 20, ALT 12, Alkaline Phosphatase 110, C-Reactive Protein 48.6 H, Total Protein 7.2, Albumin 3.9, Globulin 3.3 H, Albumin/Globulin Ratio 1.2 09/12/25 02:00: WBC 6.6, RBC 4.22, Hgb 11.6 L, Hct 34.8 L, MCV 82.5, MCH 27.5, MCHC 33.3, RDW 12.9, Plt Count 152, MPV 10.2, Neut % (Auto) 63.3, Lymph % (Auto) 25.0, Barber % (Auto) 8.6, Eos % (Auto) 2.3, Baso % (Auto) 0.5, Neut # (Auto) 4.2, Lymph # (Auto) 1.7, Barber # (Auto) 0.6, Eos # (Auto) 0.2, Baso # (Auto) 0.0, PT 11.0, INR 0.99, APTT 26.6 09/12/25 06:38: POC Glucose 251 H I & O for Last 24 hours: Intake & Output 09/09/25 09/10/25 09/11/25 09/12/25 23:59 23:59 23:59 23:59 Intake Total 1020 / 1020 Output Total 400 / 400 Balance 620 / 620 Weight 81.828 kg Constitutional Constitutional: no acute distress *Routine HEENT Exam Head: Present normocephalic Eye: Present EOMI and PERRL ENT: Present mucous membranes moist *Routine Neck Exam Neck: Present supple; Absent lymphadenopathy *Routine Respiratory Exam Respiratory: Present CTA bilaterally *Routine Cardiovascular Exam Cardiovascular: Present RRR *Routine Abdominal Exam Abdominal: Present soft and normoactive bowel sounds; Absent tenderness *Routine Extremities Exam Extremities: Absent cyanosis, clubbing or edema *Routine Skin Exam Skin: Present warm; Absent rash *Routine Neurological Exam Neurological: Present alert and oriented X3 Results Data Completed and Pending Labs on day of discharge: Labs from last 24 hours 09/12/25 09/12/25 09/12/25 06:38 02:00 01:25 WBC 6.6 RBC 4.22 Hgb 11.6 L Hct 34.8 L MCV 82.5 MCH 27.5 MCHC 33.3 RDW 12.9 Plt Count 152 MPV 10.2 Neut % (Auto) 63.3 Lymph % (Auto) 25.0 Barber % (Auto) 8.6 Eos % (Auto) 2.3 Baso % (Auto) 0.5 Neut # (Auto) 4.2 Lymph # (Auto) 1.7 Barber # (Auto) 0.6 Eos # (Auto) 0.2 Baso # (Auto) 0.0 PT 11.0 INR 0.99 APTT 26.6 Sodium 137 Potassium 3.8 Chloride 104 Carbon Dioxide 28 Anion Gap 8.8 BUN 12 Creatinine 0.80 Estimated Creat Clear 74 Estimated GFR 72 Est GFR ( Amer) 88 Glucose 196 H POC Glucose 251 H Calcium 8.8 Total Bilirubin 0.6 AST 20 ALT 12 Alkaline Phosphatase 110 C-Reactive Protein 48.6 H Total Protein 7.2 Albumin 3.9 Globulin 3.3 H Albumin/Globulin Ratio 1.2 DS: Diagnosis Discharge Diagnosis (1) MRSA infection: Status: Acute Code(s): A49.02 - Methicillin resistant Staphylococcus aureus infection, unspecified site (2) Malfunction of device: Status: Acute Code(s): T85.698A - Other mechanical complication of other specified internal prosthetic devices, implants and grafts, initial encounter Qualifiers: Encounter type: initial encounter Qualified Code(s): T85.698A - Other mechanical complication of other specified internal prosthetic devices, implants and grafts, initial encounter Meds Home Medications and Allergies Home Medications ?Medication ?Instructions ?Recorded ?Confirmed ?Type aspirin 81 mg tablet,delayed 81 mg PO DAILY 12/01/20 09/12/25 History release ergocalciferol (vitamin D2) 1,250 50,000 unit PO DIRECTED 07/02/23 09/12/25 History mcg (50,000 unit) capsule blood-glucose meter (OneTouch #1 ea 10/27/24 09/07/25 History Verio Flex Meter) oxybutynin chloride 10 mg 10 mg PO DAILY 90 days #90 tabs 12/29/24 09/12/25 Rx tablet,extended release 24 hr blood-glucose sensor (DexMango-Mate G7 #9 ea 03/09/25 09/07/25 Rx Sensor device) blood sugar diagnostic (OneTouch #100 strips 04/13/25 09/07/25 Rx Verio test strips) levothyroxine 150 mcg tablet 150 mcg PO DAILY #90 tabs 06/18/25 09/12/25 Rx (Synthroid) lancets 33 gauge (OneTouch Delica #100 ea 09/01/25 09/07/25 Rx Plus Lancet) ketoconazole 2 % topical cream 1 applic topical BID 10 days #30 09/07/25 09/12/25 Rx grams aripiprazole 5 mg tablet 5 mg PO HS 09/12/25 09/12/25 History dulaglutide 3 mg/0.5 mL 3 mg SQ WEEKLY 09/12/25 09/12/25 History subcutaneous pen injector (Trulicity) evolocumab 140 mg/mL subcutaneous 140 mg SQ DIRECTED 09/12/25 09/12/25 History pen injector (Repatha SureClick) finerenone 10 mg tablet (Kerendia) 10 mg PO DAILY 09/12/25 09/12/25 History hydroxyzine HCl 25 mg tablet 25 - 50 mg PO TIDP PRN anxiety 09/12/25 09/12/25 History insulin degludec 100 unit/mL (3 46 unit SQ DAILY 09/12/25 09/12/25 History mL) subcutaneous pen (Tresiba FlexTouch U-100 insulin) isosorbide mononitrate 30 mg 30 mg PO DAILY 09/12/25 09/12/25 History tablet,extended release 24 hr losartan 50 mg tablet 50 mg PO DAILY 09/12/25 09/12/25 History meloxicam 15 mg tablet 15 mg PO DAILY 09/12/25 09/12/25 History menthol 0.44 %-zinc oxide 20.6 % 1 applic topical QIDP PRN wound 09/12/25 09/12/25 History topical ointment (Calmoseptine) healing metoprolol succinate 50 mg 50 mg PO HS 09/12/25 09/12/25 History tablet,extended release 24 hr montelukast 10 mg tablet 10 mg PO HS 09/12/25 09/12/25 History mupirocin 2 % topical ointment 1 applic topical BID 09/12/25 09/12/25 History (Centany) pantoprazole 40 mg tablet,delayed 40 mg PO DAILY 09/12/25 09/12/25 History release polysaccharide iron complex 180 mg 180 mg PO BID 09/12/25 09/12/25 History iron capsule (Pro Fe) rimegepant 75 mg disintegrating 75 mg PO DIRECTED 09/12/25 09/12/25 History tablet (Nurtec ODT) tizanidine 4 mg tablet 4 mg PO Q8HP PRN Muscle Spasm 09/12/25 09/12/25 History trazodone 100 mg tablet 100 mg PO HSP PRN sleep 09/12/25 09/12/25 History New Prescriptions to Start Prescriptions: Allergies Allergy/AdvReac Type Severity Reaction Status Date / Time pregabalin (From Lyrica) Allergy Mild Rash Verified 09/07/25 15:01 codeine (CODEINE) Allergy Unknown I-ITCHING Verified 09/07/25 15:01 metformin (METFORMIN) Allergy Unknown HIVES, SOA Verified 09/07/25 15:01 pioglitazone (From ACTOS) Allergy Unknown SOA, HIVES Verified 09/07/25 15:01 gabapentin Allergy Unknown Verified 09/07/25 15:01 allergy reaction Csitzog-XSG-YnH Reductase AdvReac Intermediate leg pain Verified 09/07/25 15:01 Inhibitor rosuvastatin (From Crestor) AdvReac Gastrointestinal Verified 09/07/25 15:01 Upset Discharge Plan Disposition Patient Disposition: Home, Self-Care Condition: Fair Follow up Plan Follow up with: Mercy Guevara APRN [Primary Care Provider, Medical] - Enter time for follow up Prescriptions/Medication Reconciliation: Continued (DME) blood-glucose [place]OneTouch [place]io Flex [place] [facility] [place] .[place]OUTE .MEDSUPPLY Qty: 1 Rx Instructions: As directed oxybutynin chloride 10 mg tablet extended release 24hr 10 mg PO DAILY 90 Days Qty: 90 1RF (DME) Dexcom G7 Sensor Device See Rx Instructions .Route Qty: 9 3RF Rx Instructions: As directed, change every 10 days aspirin 81 mg tablet,delayed release (DR/EC) 81 mg PO DAILY ergocalciferol (vitamin D2) 1,250 mcg (50,000 unit) capsule 50,000 unit PO DIRECTED Rx Instructions: ONE CAPSULE TWICE WEEKLY ketoconazole 2 % cream 1 applic topical BID 10 Days Qty: 30 0RF (DME) OneTouch Verio test strips Strip See Rx Instructions .ROUTE .COMPLEX Qty: 100 6RF Dose Instruction: TEST 3 TIMES A DAY Rx Instructions: TEST 3 TIMES A DAY levothyroxine [Synthroid] 150 mcg tablet 150 mcg PO DAILY Qty: 90 0RF (DME) lancets [OneTouch Delica Plus Lancet] 33 gauge [facility] [place] See Rx Instructions .ROUTE .COMPLEX Qty: 100 8RF Dose Instruction: TEST 3 TIMES A DAY Rx Instructions: TEST 3 TIMES A DAY losartan 50 mg tablet 50 mg PO DAILY tizanidine 4 mg tablet 4 mg PO Q8HP PRN (Reason: Muscle Spasm) metoprolol succinate 50 mg tablet extended release 24 hr 50 mg PO HS meloxicam 15 mg tablet 15 mg PO DAILY isosorbide mononitrate 30 mg tablet extended release 24 hr 30 mg PO DAILY trazodone 100 mg tablet 100 mg PO HSP PRN (Reason: sleep) pantoprazole 40 mg tablet,delayed release (DR/EC) 40 mg PO DAILY montelukast 10 mg tablet 10 mg PO HS hydroxyzine HCl 25 mg tablet 25 - 50 mg PO TIDP PRN (Reason: anxiety) mupirocin [Centany] 2 % ointment 1 applic topical BID Rx Instructions: Apply to affected area up to twice daily. aripiprazole 5 mg tablet 5 mg PO HS Pro Fe 180 mg iron capsule 180 mg PO BID menthol-zinc oxide [Calmoseptine] 0.44-20.6 % ointment 1 applic topical QIDP PRN (Reason: wound healing) insulin degludec [Tresiba FlexTouch U-100] 100 unit/mL (3 mL) insulin pen 46 unit SQ DAILY Repatha SureClick 140 mg/mL pen injector 140 mg SQ DIRECTED Rx Instructions: INJECT 140 MG SUBCUTANEOUSLY ONCE EVERY 14 DAYS Nurtec ODT 75 mg tablet,disintegrating 75 mg PO DIRECTED Rx Instructions: TAKE 1 TABLET BY MOUTH AT ONSET OF MIGRAINE, THEN MAY REPEAT 1 TIME IN 2 HOURS IF NO RELIEF. MAX OF 2 IN 24 HOURS. Trulicity 3 mg/0.5 mL pen injector 3 mg SQ WEEKLY Kerendia 10 mg tablet 10 mg PO DAILY Discontinued vancomycin 10 gram recon soln 1.5 g IV BID 7 Days Qty: 14 0RF Problem Reconciliation Problems Reviewed?: Yes Patient Discharge Instructions Patient Instructions: DI for Methicillin-Resistant Staph Infection (MRSA), Peripherally Inserted Central Catheter Print Language: Indian Providers Primary Care Provider: Mercy Guevara Admit Provider: Boris Duran Attending Provider: Boris Duran
--- NOTE | 2025-09-12 14:20 | HMH.PHAAMS2 ---
- Antimicrobial Stewardship Review reviewed - no change Stewardship interventions: reviewed - no change
[2025-09-12] MEDS: IRBESARTAN 75MG TABLET 75 MG PO (15:54)
[2025-09-12] MEDS: ASPIRIN EC 81MG TABLET 81 MG PO (15:54)
[2025-09-12] MEDS: LEVOTHYROXINE 150MCG (0.15MG)TAB 150 MCG PO (15:57)
--- NOTE | 2025-09-12 16:45 | PC.WOUNDNOTE ---
SLIGHT REDNESS NOTED TO BOTTOM OF BUTTOCK. NO OPEN AREAS NOTED. SMALL LIGHT [place] NOTED TO TOP OF GLUTEAL CLEFT, SCAR FROM HEALING SPOT.
--- NOTE | 2025-09-14 12:55 | SW/DCPLANNER ---
Spoke with patient on the phone. Patient stated that she is doing pretty good. Patient stated that she is aware of her upcoming appointment. Patient stated that she did not have any new medicine. Patient stated that she has no concerns or questions at this time. Ayush Perez
[2025-09-15 14:46] LABS: POC Glucose,Bedside 246 gm/dL (70-110)
== END 2025-09-12 16:50 | disposition home or self-care (01) ==
LOC: ER 00:38 → 2ND 01:31
PROVIDERS: Admitting Provider Student in an Organized Health Care Education/Training Program; Emergency Provider Emergency Medicine; PCP Nurse Practitioner Family; Visit Provider Student in an Organized Health Care Education/Training Program
DX: T85.698A Other mechanical complication of other specified internal prosthetic devices, implants and grafts, initial encounter (principal); A49.02 Methicillin resistant Staphylococcus aureus infection, unspecified site; F41.9 Anxiety disorder, unspecified; J45.909 Unspecified asthma, uncomplicated; Z90.49 Acquired absence of other specified parts of digestive tract; I25.10 Atherosclerotic heart disease of native coronary artery without angina pectoris; E11.40 Type 2 diabetes mellitus with diabetic neuropathy, unspecified; K21.9 Gastro-esophageal reflux disease without esophagitis; M79.7 Fibromyalgia; E78.5 Hyperlipidemia, unspecified; E03.9 Hypothyroidism, unspecified; F32.A Depression, unspecified; G43.909 Migraine, unspecified, not intractable, without status migrainosus; G47.33 Obstructive sleep apnea (adult) (pediatric); M19.072 Primary osteoarthritis, left ankle and foot; E66.812 Obesity, class 2; Z68.33 Body mass index [BMI] 33.0-33.9, adult; Z98.84 Bariatric surgery status; Z90.711 Acquired absence of uterus with remaining cervical stump; Z95.1 Presence of aortocoronary bypass graft; Z82.49 Family history of ischemic heart disease and other diseases of the circulatory system; Z83.3 Family history of diabetes mellitus; Z88.8 Allergy status to other drugs, medicaments and biological substances; Z79.899 Other long term (current) drug therapy; Z79.82 Long term (current) use of aspirin
CPT/HCPCS: 74177; 80053; 82962; 85025; 85610; 85730; 86140; 99284; G0378; J3375; Q9967

== ENCOUNTER 2025-09-17 09:06 | Outpatient (CLI) | payer MEDICARE, MEDICAID, SELFPAY ==
--- NOTE | 2025-09-17 09:09 | XR_ITS ---
FINAL REPORT CLINICAL HISTORY: Evaluate postoperative healing COMPARISON: None FINDINGS: LEFT FOOT Three views of the left foot demonstrate no acute fracture or dislocation. There are 2 orthopedic screws securing the posterior subtalar joint. There is an orthopedic staple within the tarsal navicular but not within the talonavicular joint. There is also a staple securing the calcaneocuboid joint. There is a single screw securing the talonavicular joint. There is a 1.2 cm ossific density medial to the tarsal navicular which may be related to ununited ossification center. The soft tissues are unremarkable. IMPRESSION: No acute bony abnormality. Postoperative changes as above. Reviewed, Interpreted and Dictated by Jt Cole MD Transcribed by Linda Simmons Authenticated and [facility]
== END 2025-09-17 23:59 | disposition home or self-care (01) ==
LOC: RAD 09:07
PROVIDERS: PCP Nurse Practitioner Family; Visit Provider Podiatrist
DX: Z98.890 Other specified postprocedural states (principal)
CPT/HCPCS: 73630

== ENCOUNTER 2025-09-18 09:48 | Outpatient (CLI) | payer MEDICARE, MEDICAID, SELFPAY ==
[2025-09-18 17:19] LABS: Hemoglobin A1C 8.3 % (4.0-6.0)
[2025-09-18 18:20] LABS: Thyroid Stimulating Hormone 0.46 uIU/mL (0.465-4.68)
[2025-09-20 07:13] LABS: Triiodothyronine (T3) Free 2.5 pg/mL (2.0-4.4)
== END 2025-09-18 23:59 | disposition home or self-care (01) ==
LOC: LAB.DROPOF 09-21 09:49
PROVIDERS: PCP Nurse Practitioner Family; Visit Provider Nurse Practitioner Family
DX: E89.0 Postprocedural hypothyroidism (principal); E11.69 Type 2 diabetes mellitus with other specified complication
CPT/HCPCS: 83036; 84443; 84481